=== PATIENT | female | born 1990 | race Caucasian/White ===

== ENCOUNTER 2023-04-15 00:51 | Emergency (ER) | payer OTHER, SELFPAY ==
[2023-04-15 00:54] VITALS: BP 110/51; PULSE 69; RESP 16; TEMP 36.6; O2SAT 99; BMI 21.3
--- NOTE | 2023-04-15 01:41 | ED_ITS ---
HPI - General Adult General Chief complaint: Dental/Oral Stated complaint: DENTAL PAIN, UTI, HEADACHE Time Seen by Provider: 04/15/23 00:59 Source: patient Mode of arrival: walk-in Limitations: no limitations History of Present Illness HPI narrative: This 32-year-old female presents for evaluation of multiple complaints. She states that she is having right-sided ear pain and has right-sided dental pain. She was seen at urgent care in [place] last week and given a prescription for Augmentin 875 mg. She has almost completed this prescription but is still having dental pain. She is supposed to see a dentist next week. She states the pain in her mouth is going into her right ear and causing her to have a headache. She has not had a fever. She is also nauseated and having lower abdominal/suprapubic area discomfort. The patient has not had a menstrual period in many months but doubts the possibility of . She did have some blood in her urine today and thinks she may have a urinary tract infection. She also has vaginal itching and white discharge consistent with a yeast infection. She denies any fever. She denies any chest pain or shortness of breath. She was not prescribed any pain medication with her antibiotics as she was told that the antibiotics would take care of pain. Related Data Home Medications Medication Instructions Recorded Confirmed buspirone 10 mg tablet 10 mg PO TID 04/15/23 04/15/23 hydroxyzine HCl 25 mg tablet 25 mg PO PRN anxiety 04/15/23 trazodone 100 mg tablet 100 mg PO BEDTIME 04/15/23 04/15/23 Allergies Allergy/AdvReac Type Severity Reaction Status Date / Time No Known Drug Allergies Allergy Verified 04/15/23 01:01 Review of Systems ROS Status of ROS 10 or more systems reviewed and unremarkable except as noted in history and below [facility] Social History Smoking status: Current every day smoker Exam Narrative Exam Narrative: Nurses note and vital signs reviewed and patient is not hypoxic. General: Thin, nontoxic but uncomfortable appearing female, no respiratory distress Skin: Warm, dry, no pallor noted. There is no rash noted. Head: Normocephalic, atraumatic Eye: Normal conjunctiva, no drainage, EOMI. PERRL Ears, Nose, Mouth, and Throat: oral mucosa is moist. There is moderate generalized dental decay. The teeth in the right upper posterior maxilla are tender to percussion. There is not one specific tooth that is more tender than the other or that appears more infected than the other, there is no gingival erythema or notable abscess. There is no swelling of the tongue, uvula or fragile soft tissues, there is no pooling of secretions. There is no notable abnormality of either external ear canal or tympanic membrane. Cardiovascular: Regular Rate and Rhythm Respiratory: Patient is in no distress, no accessory muscle use, lungs are clear to auscultation, no wheezing, rales or rhonchi Back: non-tender, no CVA tenderness bilaterally to percussion. GI: Normal bowel sounds, Soft, nondistended, mild tenderness over the urinary bladder with no rebound guarding or rigidity Musculoskeletal: The patient has no evidence of calf tenderness, no pitting edema, symmetrical pulses noted bilaterally Neurological: A&O x4, normal speech Psychiatric: Cooperative, Tearful Constitutional Vital Signs, click to edit/add: Last Vital Signs Temp 97.9 F 04/15/23 00:54 Pulse 69 04/15/23 00:54 Resp 16 04/15/23 00:54 BP 110/51 L 04/15/23 00:54 Pulse Ox 99 04/15/23 00:54 O2 Del Method Room Air 04/15/23 00:54 Course Vital Signs Vital signs: Vital Signs Temperature 97.9 F 04/15/23 00:54 Pulse Rate 69 04/15/23 00:54 Respiratory Rate 16 04/15/23 00:54 Blood Pressure 110/51 L 04/15/23 00:54 Pulse Oximetry 99 04/15/23 00:54 Oxygen Delivery Method Room Air 04/15/23 00:54 Temperature 97.9 F 04/15/23 00:54 Pulse Rate 69 04/15/23 00:54 Respiratory Rate 16 04/15/23 00:54 Blood Pressure 110/51 L 04/15/23 00:54 Pulse Oximetry 99 04/15/23 00:54 Oxygen Delivery Method Room Air 04/15/23 00:54 Medical Decision Making MDM Narrative Medical decision making narrative: This 32-year-old female presents for evaluation of right-sided dental pain with radiation into her right ear as well as nausea and lower abdominal discomfort with urinary discomfort and burning and itching in her vagina with a white discharge. The patient has been on Augmentin 875 mg for approximately one week after being seen at urgent care for dental pain. She does have generally poor dentition. I was unable to appreciate any periapical abscess. There is no swelling of her jaw or face. Her tympanic membranes are normal. Her lungs are clear, abdomen is soft with some tenderness over her urinary bladder. The patient has not been menstruating since having a miscarriage last fall. She did have some blood in her urine today. I offered her a pelvic exam evaluate the vaginal itching and white discharge that she is having that sounds like a yeast infection but she declined. She was empirically treated with Diflucan. She was t reated with Zofran for her nausea, Toradol and one [place] for her pain. She has an appointment with her dentist next week. I encouraged her to follow closely with her dentist. I gave her a prescription for clindamycin to take instead of the Augmentin although I did explain to her that not all dental pain is related to an infection. There is no visible sign of infection, no fever, no facial swelling and besides the generally poor dentition her oropharynx is benign. Her urine was positive for blood and multiple squamous epithelial cells. Culture is pending at this time. I do not think she has urinary tract infection as it would be unlikely that she would develop a urinary tract infection while on Augmentin but she does likely have a vaginal yeast infection. She will be discharged home with a prescription for Zofran, [place], clindamycin and an additional Diflucan to use in 3-4 days. She is otherwise hemodynamically stable for discharge and feeling better after her treatment in emergency department. I did review her [facility] report and there was no recent activity. Lab Data Labs: Lab Results 04/15/23 Range/Units 01:05 Urine Color Yellow (YELLOW) Urine Clarity Clear (CLEAR) Urine pH 5.0 (5.0-9.0) Ur Specific [place] >=1.030 A (1.005-1.025) Urine Protein Negative (NEG/TRACE) mg/dL Urine Glucose (UA) Negative (NEGATIVE) mg/dL Urine Ketones Trace A (NEGATIVE) mg/dL Urine Occult Blood Large A (NEGATIVE) Urine Nitrite Negative (NEGATIVE) Urine Bilirubin Negative (NEGATIVE) Urine Urobilinogen 0.2 (0.2-1.0) EU/dL Ur Leukocyte Esterase Trace A (NEGATIVE) Urine RBC 10-20 A (0-2) #/HPF Urine WBC 2-5 A (NONE SEEN) #/HPF Ur Squamous Epith Cells Many A (NONE/RARE) #/LPF Urine Crystals None seen (None Seen) #/HPF Urine Bacteria None seen (NONE SEEN) #/HPF Urine Casts None seen (NONE SEEN) #/LPF Urine Mucus None seen (NONE SEEN) Discharge Plan Discharge Chief Complaint: Dental/Oral Clinical Impression: Candidiasis, vagina, Dental caries, Toothache Patient Disposition: Home, Self-Care Time of Disposition Decision: 02:10 Condition: Good Prescriptions / Home Meds: No Action trazodone 100 mg tablet 100 mg PO BEDTIME buspirone 10 mg tablet 10 mg PO TID Rx Instructions: 2 tabs hydroxyzine HCl 25 mg tablet 25 mg PO PRN (Reason: anxiety) Instructions: Yeast Infection (ED), Toothache (ED) Stand Alone Forms: Portal Instructions Referrals: Physician,Non-Staff, MD [Primary Care Provider] - 1 week
[2023-04-15 01:44] LABS: Bilirubin Urine NEGATIVE (NEGATIVE); Blood Urine LARGE (NEGATIVE); Clarity Urine CLEAR (CLEAR); Color Urine YELLOW (YELLOW); Glucose Urine UA NEGATIVE (NEGATIVE); Ketones Urine TRACE mg/dL (NEGATIVE); Leukocyte Esterase Urine TRACE (NEGATIVE); Nitrite Urine NEGATIVE (NEGATIVE); Protein Urine NEGATIVE (NEG/TRACE); Specific Gravity Urine >=1.030 (1.005-1.025); Urobilinogen Urine 0.2 EU/dL (0.2-1.0)
[2023-04-15 01:45] LABS: HCG Qualitative Urine* NEGATIVE (NEGATIVE)
[2023-04-15] MEDS: KETOROLAC TROMETHAMINE 30 MG/ML VIAL IM (01:55)
[2023-04-15] MEDS: HYDROCODONE/ACETAMINOPHEN 5-325 MG TABLET 1 TAB PO (01:55)
[2023-04-15] MEDS: ONDANSETRON 4 MG RAPDIS TABLET SL (01:55)
[2023-04-15 01:57] LABS: Bacteria Urine NONE SEEN #/HPF (NONE SEEN); Cast Seen? NONE SEEN #/LPF (NONE SEEN); Crystals Seen? None Seen #/HPF (None Seen); Mucus Urine NONE SEEN (NONE SEEN); Squamous Epithelial Cell Urine MANY #/LPF (NONE/RARE)
[2023-04-15] MEDS: FLUCONAZOLE 150 MG TABLET PO (02:31)
== END 2023-04-15 02:35 | disposition home or self-care (01) ==
PROVIDERS: Emergency Provider Emergency Medicine
DX: K02.9 Dental caries, unspecified (principal); K08.89 Other specified disorders of teeth and supporting structures; B37.31 Acute candidiasis of vulva and vagina; F17.210 Nicotine dependence, cigarettes, uncomplicated; Z79.899 Other long term (current) drug therapy
CPT/HCPCS: 81001; 84703; 96372; 99284

== ENCOUNTER 2023-05-14 19:33 | Outpatient (REF) | payer OTHER, SELFPAY ==
[2023-05-20 11:09] LABS: Age Gdln ACOG Testing Note (.); HPV Aptima Negative (Negative); IGP, Aptima HPV, rfx 16/18,45 Note (.)
== END 2023-05-14 19:34 | disposition home or self-care (01) ==
LOC: LAB 19:33
PROVIDERS: Visit Provider Physician Assistant
DX: Z01.419 Encounter for gynecological examination (general) (routine) without abnormal findings (principal)
CPT/HCPCS: 87624; G0145

== ENCOUNTER 2024-02-20 12:33 | Outpatient (OUT) | payer OTHER, SELFPAY ==
--- NOTE | 2024-02-20 12:57 | XR_ITS ---
The [address] [address] Patient Name: BREANA CASAS MRN: [id number] date: 1990 Sex: F Assigned Patient Location: SURGOUT Current Patient Location: [facility] Accession/Order Number: [id number] Exam Date: 02/20/2024 13:05 Report Date: 02/20/2024 16:06 At the request of: ADONIS HANSEN Procedure: XR chest 2V EXAM: XR chest 2V HISTORY: Preop exam COMPARISON: None. TECHNIQUE: Upright PA and lateral chest x-ray FINDINGS: The heart is not enlarged and the vasculature is not distended. No acute infiltrate, effusion or pneumothorax is identified. The osseous structures are grossly intact. XR/XR chest 2V IMPRESSION: No acute infiltrate or evidence of cardiac decompensation. Electronically authenticated by: NAHID CROCKER Date: 02/20/2024 16:06
== END 2024-02-20 12:34 | disposition home or self-care (01) ==
PROVIDERS: Visit Provider Obstetrics & Gynecology
DX: Z01.812 Encounter for preprocedural laboratory examination (principal); Z01.810 Encounter for preprocedural cardiovascular examination; R10.2 Pelvic and perineal pain; F17.290 Nicotine dependence, other tobacco product, uncomplicated
CPT/HCPCS: 71046

== ENCOUNTER 2024-02-20 12:39 | Outpatient (OUT) | payer OTHER, SELFPAY ==
[2024-02-20 13:25] LABS: Eosinophils Absolute Auto 0.3 10^3/uL (0.0-0.7); Eosinophils Percent Auto 7.9 % (0.9-7.0); Hematocrit 37.8 % (36.0-48.0); Hemoglobin 12.5 g/dL (12.0-16.0); Immature Granulocytes Abs Auto 0.01 10^3/uL (0.00-0.03); Immature Granulocytes Pct Auto 0.2 % (0.0-0.5); Lymphocytes Absolute Auto 1.1 10^3/uL (1.2-3.8); Lymphocytes Percent Auto 26.1 % (20.5-60.0); Mean Corpuscular HGB Conc 33.1 g/dL (29.9-35.2); Mean Corpuscular Volume 93.8 fL (81.0-99.0); Mean Platelet Volume 9.7 fL (9.5-13.5); Monocytes Absolute Auto 0.3 10^3/uL (0.3-0.8); Monocytes Percent Auto 6.7 % (1.7-12.0); Neutrophils Absolute Auto 2.4 10^3/uL (1.4-6.5); Neutrophils Percent Auto 58.1 % (43.0-75.0); Platelet Count 189 10^3/uL (150-450); Red Blood Count 4.03 10^6/uL (4.20-5.40); White Blood Count 4.2 10^3/uL (4.0-11.0)
[2024-02-20 13:31] LABS: Thyroid Stimulating Hormone 1.752 uIU/mL (0.358-3.740)
[2024-02-20 13:32] LABS: Estimated Average Glucose 105 mg/dL; Glycohemoglobin A1C 5.3 % (4.5-6.2)
== END 2024-02-20 12:40 | disposition home or self-care (01) ==
LOC: LAB 12:39
PROVIDERS: Visit Provider Obstetrics & Gynecology
DX: Z01.812 Encounter for preprocedural laboratory examination (principal); Z01.810 Encounter for preprocedural cardiovascular examination; R10.2 Pelvic and perineal pain; F17.290 Nicotine dependence, other tobacco product, uncomplicated
CPT/HCPCS: 71046; 83036; 84443; 85025

== ENCOUNTER 2024-03-05 08:58 | Day surgery (SDC) | payer OTHER, SELFPAY ==
[2024-02-20 13:00] VITALS: BP 98/62; PULSE 48; TEMP 36.3; O2SAT 100; BMI 21.4
[2024-03-05] VITALS (8 sets, daily range): BP systolic 88–101; BP diastolic 36–64; PULSE 45–71; TEMP 36.2–36.6; O2SAT 97–100; BMI 21.4
[2024-03-05 09:16] LABS: Basophils Absolute Auto 0.1 10^3/uL (0.0-0.1); Basophils Percent Auto 1.7 % (0.2-2.0); Eosinophils Absolute Auto 0.4 10^3/uL (0.0-0.7); Eosinophils Percent Auto 12.2 % (0.9-7.0); Lymphocytes Percent Auto 29.3 % (20.5-60.0); Mean Corpuscular HGB Conc 32.6 g/dL (29.9-35.2); Mean Corpuscular Hemoglobin 30.6 pg (26.7-34.0); Mean Corpuscular Volume 94.1 fL (81.0-99.0); Mean Platelet Volume 9.5 fL (9.5-13.5); Monocytes Absolute Auto 0.3 10^3/uL (0.3-0.8); Monocytes Percent Auto 7.7 % (1.7-12.0); Neutrophils Absolute Auto 1.7 10^3/uL (1.4-6.5); Neutrophils Percent Auto 49.1 % (43.0-75.0); Platelet Count 234 10^3/uL (150-450); Red Blood Count 4.57 10^6/uL (4.20-5.40); White Blood Count 3.5 10^3/uL (4.0-11.0)
--- OUTSIDE RECORDS SUMMARY | 2024-03-05 09:21 | XMS_ITS ---
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 above: Result Comment: Incr eased risk for diabetes: 5.7 - 6.4 diabetes: >6.4 glycemic control for adults with diabetes: <7.0 Performed By: #### T SH3, PRL, A1C WTH eA, CBC, HCGQNT #### [facility] [address] [place] [address] [place] Basophils Auto (Bld) [#/Vol] Ordered By: Sylvia Romero on 03-28-2023 Basophils (Bld) [#/Vol] 0.0 10*3/uL 0.0-0.2 [facility] Basophils/100 WBC Auto (Bld) Ordered By: Sylvia Romero on 03-28-2023 Basophils/100 WBC (Bld) 0.8 % . [facility] Choriogonadotropin.beta subu nit [Units/volume] in Serum or PlasmaOrdered By: Sylvia Romero on 03-28-2023 HCG.beta subunit Qn m[IU]/mL [facility] Comment on above: Approximate Approxim ate hCG Gestational Age Range (mIU/ml) (weeks)0.2-1 5-50 1-2 50-500 2-3 100-5,000 3-4 500-10,000 4-5 1,000-50,000 5-6 10,000-100,000 6-8 15,000-200,000 8-12 10,000-100,000 Complete Blood Count Auto Di ffon 03-28-2023 Basophils (Bld) [#/Vol] 0.0 10*3/uL Normal 0.0-0.2 The Count Includes [facility] Comment on above: Result Comment: PERF ORMED BY: [place] [address] PATHOLOGIST DONOR CENTER TECHNICIAN KHANG WEEKS M.D. Performed By: #### T SH3, PRL, A1C WTH eA, CBC, HCGQNT #### [facility] [address] Basophils/100 WBC (Bld) 0.8 % Normal . T abby Count Includes [facility] Comment on above: Performed By: #### T SH3, PRL, A1C WTH eA, CBC, HCGQNT #### [address] Eosinophils (Bld) [#/Vol] 0.2 10*3/uL Normal 0.0-0.45 The Count Includes [facility] Comment on above: Performed By: #### T SH3, PRL, A1C WTH eA, CBC, HCGQNT #### [address] Eosinophils/100 WBC (Bld) 4.7 % Normal . The Count Includes [facility] Comment on above: Performed By: #### T SH3, PRL, A1C WTH eA, CBC, HCGQNT #### [address] Erythrocyte distribution width (RBC) [Ratio] 13.0 % Normal 11.9-15.3 The Count Includes [facility] Comment on above: Performed By: #### T SH3, PRL, A1C WTH eA, CBC, HCGQNT #### [address] Hematocrit (Bld) [Volume fraction] 38.0 % Normal 34.0-46.4 The Count Includes [facility] Comment on above: Performed By: #### T SH3, PRL, A1C WTH eA, CBC, HCGQNT #### [address] Hemoglobin (Bld) [Mass/Vol] 12.9 g/dL Normal 11.8-15.4 The Count Includes [facility] Comment on above: Performed By: #### T SH3, PRL, A1C WTH eA, CBC, HCGQNT #### [address] Lymphocytes (Bld) [#/Vol] 1.0 10*3/uL Normal 1.00-4.8 The Count Includes [facility] Comment on above: Performed By: #### T SH3, PRL, A1C WTH eA, CBC, HCGQNT #### [address] Lymphocytes/100 WBC (Bld) 23.9 % Normal . The Count Includes [facility] Comment on above: Performed By: #### T SH3, PRL, A1C WTH eA, CBC, HCGQNT #### [address] MCH (RBC) [Entitic mass] 31.3 pg Normal 24.7-34.3 The Count Includes [facility] Comment on above: Performed By: #### T SH3, PRL, A1C WTH eA, CBC, HCGQNT #### [address] MCV (RBC) [Entitic vol] 92.3 fL Normal 80-100 [facility] Comment on above: Performed By: #### T SH3, PRL, A1C WTH eA, CBC, HCGQNT #### [address] Mean Corpuscular HGB Conc 33.9 g/dL Normal 32.0-35.0 The Count Includes [facility] Comment on above: Performed By: #### T SH3, PRL, A1C WTH eA, CBC, HCGQNT #### [address] Monocytes (Bld) [#/Vol] 0.3 10*3/uL Normal 0.0-0.8 The Count Includes [facility] Comment on above: Performed By: #### T SH3, PRL, A1C WTH eA, CBC, HCGQNT #### [address] Monocytes/100 WBC (Bld) 7.5 % Normal . [facility] Comment on above: Performed By: #### T SH3, PRL, A1C WTH eA, CBC, HCGQNT #### [address] Neutrophils (Bld) [#/Vol] 2.6 10*3/uL Normal 1.8-7.7 The Count Includes [facility] Comment on above: Performed By: #### T SH3, PRL, A1C WTH eA, CBC, HCGQNT #### [address] Neutrophils/100 WBC (Bld) 63.1 % Normal . The Count Includes [facility] Comment on above: Performed By: #### T SH3, PRL, A1C WTH eA, CBC, HCGQNT #### [address] NRBC% 0.1 /100{WBC} Normal 0-0.5 The Count Includes [facility] Comment on above: Performed By: #### T SH3, PRL, A1C WTH eA, CBC, HCGQNT #### [address] Platelet mean volume (Bld) [Entitic vol] 8.8 fL Normal 6.3-10.7 The Count Includes [facility] Comment on above: Performed By: #### T SH3, PRL, A1C WTH eA, CBC, HCGQNT #### [address] Platelets (Bld) [#/Vol] 196 10*3/uL Normal 150-450 The Count Includes [facility] Comment on above: Performed By: #### T SH3, PRL, A1C WTH eA, CBC, HCGQNT #### [address] RBC (Bld) [#/Vol] 4.12 10*6/uL Normal 3.60-5.00 The Count Includes [facility] Comment on above: Performed By: #### T SH3, PRL, A1C WTH eA, CBC, HCGQNT #### [address] WBC (Bld) [#/Vol] 4.1 10*3/uL Normal 3.8-11.6 The Count Includes [facility] Comment on above: Performed By: #### T SH3, PRL, A1C WTH eA, CBC, HCGQNT #### [place] [address] [place] Eosinophils Auto (Bld) [#/Vo l]Ordered By: Sylvia Romero on 03-28-2023 Eosinophils (Bld) [#/Vol] 0.2 10*3/uL 0.0-0.45 [facility] Eosinophils/100 WBC Auto (Bl d)Ordered By: Sylvia Romero on 03-28-2023 Eosinophils/100 WBC (Bld) 4.7 % . [facility] Erythrocyte distribution wid th Auto (RBC) [Ratio]Ordered By: Sylvia Romero on 03-28-2023 Erythrocyte distribution width (RBC) [Ratio] 13.0 % 11.9-15.3 [facility] HCG,Quantitativeon HCG,Quantitative < 0.60 Normal The Count Includes [facility] Comment on above: Result Comment: Appr oximate Approximate hCG Gestational Age Range (mIU/ml) (weeks) 0.2-1 5-50 1-2 50-500 2-3 100-5,000 3-4 500-10,000 4-5 1,000-50,000 5-6 10,000-100,000 6-8 15,000-200,000 8-12 10,000-100,000 PERFORMED BY: [place] [address] PATHOLOGIST DONOR CENTER TECHNICIAN KHANG WEEKS M.D. Performed By: #### T SH3, PRL, A1C WTH eA, CBC, HCGQNT #### [facility] [address] Hematocrit Auto (Bld) [Volum e fraction]Ordered By: Sylvia Romero on 03-28-2023 Hematocrit (Bld) [Volume fraction] 38.0 % 34.0-46.4 [facility] Hemoglobin [Mass/volume] in BloodOrdered By: Sylvia Romero on 03-28-2023 Hemoglobin (Bld) [Mass/Vol] 12.9 g/dL 11.8-15.4 [facility] Leukocytes [#/volume] correc ira for nucleated erythrocytes in Blood by Automated counOrdered By: Sylvia Romero on 03-28-2023 WBC corrected for nucl RBC Auto (Bld) [#/Vol] 4.1 10*3/uL 3.8-11.6 [facility] Lymphocytes Auto (Bld) [#/Vo l]Ordered By: Sylvia Romero on 03-28-2023 Lymphocytes (Bld) [#/Vol] 1.0 10*3/uL 1.00-4.8 [facility] Lymphocytes/100 WBC Auto (Bl d)Ordered By: Sylvia Romero on 03-28-2023 Lymphocytes/100 WBC (Bld) 23.9 % . [facility] MCH Auto (RBC) [Entitic mass ]Ordered By: Sylvia Romero on 03-28-2023 MCH (RBC) [Entitic mass] 31.3 pg 24.7-34.3 [facility] MCHC Auto (RBC) [Mass/Vol]Or dered By: Sylvia Romero on 03-28-2023 MCHC (RBC) [Mass/Vol] 33.9 g/dL 32.0-35.[address] [facility] MCV Auto (RBC) [Entitic vol] Ordered By: Sylvia Romero on 03-28-2023 MCV (RBC) [Entitic vol] 92.3 fL 80-100 [facility] Monocytes Auto (Bld) [#/Vol] Ordered By: Sylvia Romero on 03-28-2023 Monocytes (Bld) [#/Vol] 0.3 10*3/uL 0.0-0.8 [facility] Monocytes/100 WBC Auto (Bld) Ordered By: Sylvia Romero on 03-28-2023 Monocytes/100 WBC (Bld) 7.5 % . [facility] Neutrophils Auto (Bld) [#/Vo l]Ordered By: Sylvia Romero on 03-28-2023 Neutrophils (Bld) [#/Vol] 2.6 10*3/uL 1.8-7.7 [facility] Neutrophils/100 WBC Auto (Bl d)Ordered By: Sylvia Romero on 03-28-2023 Neutrophils/100 WBC (Bld) 63.1 % . [facility] Nucleated erythrocytes [Pres ence] in Blood by Automated countOrdered By: Sylvia Romero on 03-28-2023 Nucleated RBC Auto Ql (Bld) 0.1 /100{WBC} 0-0.5 [facility] Platelet mean volume Auto (B ld) [Entitic vol]Ordered By: Sylvia Romero on 03-28-2023 Platelet mean volume (Bld) [Entitic vol] 8.8 fL 6.3-10.7 [facility] Platelets Auto (Bld) [#/Vol] Ordered By: Sylvia Romero on 03-28-2023 Platelets (Bld) [#/Vol] 196 10*3/uL 150-450 [facility] Prolactinon 03-28-2023 Prolactin 3.20 ng/mL Low 3.34-26.72 The Count Includes [facility] Comment on above: Performed By: #### T SH3, PRL, A1C WTH eA, CBC, HCGQNT #### [facility] [address] [place] [id number] [facility] Prolactin [Mass/volume] in S mehdi or PlasmaOrdered By: Sylvia Romero on 03-28-2023 Prolactin [Mass/Vol] 3.20 ng/mL 3.34-26.72 [facility] RBC Auto (Bld) [#/Vol]Ordere d By: Sylvia Romero on 03-28-2023 RBC (Bld) [#/Vol] 4.12 10*6/uL 3.60-5.[address] [facility] Thyroid Stimulating Hormoneo n 03-28-2023 TSH Qn 1.31 m[IU]/L Normal 0.45-5.33 The Count Includes [facility] Comment on above: Performed By: #### T SH3, PRL, A1C WTH eA, CBC, HCGQNT #### [facility] [address] [place] [id number] [facility] Thyrotropin [Units/volume] i n Serum or PlasmaOrdered By: Sylvia Romero on 03-28-2023 TSH Qn 1.31 m[IU]/L 0.45-5.33 [facility] WBC Auto (Bld) [#/Vol]Ordere d By: Sylvia Romero on 03-28-2023 WBC (Bld) [#/Vol] 4.1 10*3/uL 3.8-11.6 [facility] US PREG TVon 01-20-2023 US PREG TV EXAMINATION: US PREG TV HISTORY: Threatened COMPARISON: Ultrasound transvaginal 01/03/2023 FINDINGS: GESTATIONAL SAC: Present. YOLK SAC: Absent. POLE: Present. CARDIAC: Absent. UTERUS: Normal size and appearance. OVARIES: Right: Not seen. Left: Corpus lutein cyst. CERVIX: 4.5 cm in length and closed. CUL-DE-SAC: Normal. OTHER: None. AGE BY LMP: 9 weeks 6 days JONN BY LMP: 08/16/2023 AGE BY US CRL: 7 weeks 3 days JONN BY US CRL: 09/02/2023 IMPRESSION: 1. Intrauterine with no appreciable change in gestational age by pole measurement. 2. No detectable heart beat. Findings consistent with demise. Electronically authenticated by: KENNEDY LEHMAN Date: 2023-01-19 23:22 Normal [facility] CBC AUTO DIFFon 01-17-2023 BASO # 0.0 103/ul Normal 0.0-0.1 [facility] Comment on above: Performed By: #### C MP, LIPA, SYLVIA #### [facility] [address] [place] [address] Dr. Lester Yen Basophils/100 WBC (Bld) 1.1 % Normal 0.2-2.0 [facility] Comment on above: Performed By: #### C MP, LIPA, SYLVIA #### [facility] [address] [place] [address] Dr. Lester Yen EO # 0.2 103/ul Normal 0.0-0.7 [facility] Comment on above: Performed By: #### C MP, LIPA, SYLVIA #### [facility] [address] [place] [address] Dr. Lester Yen Eosinophils/100 WBC (Bld) 5.4 % Normal 0.9-7.0 [facility] Comment on above: Performed By: #### C MP, LIPA, SYLVIA #### [facility] [address] [place] [address] Dr. Lester Yen Erythrocyte distribution width (RBC) [Ratio] 12.4 % Normal 11.0-15.0 [facility] Comment on above: Performed By: #### C MP, LIPA, SYLVIA #### [facility] [address] [place] [address] Dr. Lester Yen Hematocrit (Bld) [Volume fraction] 37.7 % Normal 36.0-48.0 [facility] Comment on above: Performed By: #### C MP, LIPA, SYLVIA #### [facility] [address] [place] [address] Dr. Lester Yen Hemoglobin (Bld) [Mass/Vol] 13.2 g/dL Normal 12.0-16.0 [facility] Comment on above: Performed By: #### C ANJU PULIDO AMY #### [facility] [address] [place] [address] Dr. Lester Yen IG # 0.01 10e3/ul Normal 0.00-0.03 [facility] Comment on above: Performed By: #### C ANJU PULIDO, SYLVIA #### [facility] [address] [place] [address] Dr. Lester Yen IG % 0.3 % Normal 0.0-0.5 [facility] Comment on above: Performed By: #### C ANJU PULIDO, SYLVIA #### [facility] [address] [place] [address] Dr. Lester Yen LYMPH # 1.1 103/ul Critically low 1.2-3.8 [facility] Comment on above: Performed By: #### C ANJU PULIDO, SYLVIA #### [facility] [address] [place] [address] Dr. Lester Yen Lymphocytes/100 WBC (Bld) 28.3 % Normal 20.5-60.0 [facility] Comment on above: Performed By: #### C ANJU PULIDO, SYLVIA #### [facility] [address] [place] [address] Dr. Lester Yen MANUAL DIFF REQ NO Normal [facility] Comment on above: Performed By: #### C ANJU PULIDO, SYLVIA #### [facility] [address] [place] [address] Dr. Lester Yen MCH (RBC) [Entitic mass] 31.5 pg Normal 26.7-34.0 [facility] Comment on above: Performed By: #### C ANJU PULIDO, SYLVIA #### [facility] [address] [place] [address] Dr. Lester Yen MCHC (RBC) [Mass/Vol] 35.0 g/dL Normal 29.9-35.2 [facility] Comment on above: Performed By: #### C MP, LIPA, SYLVIA #### [facility] [address] [place] [address] Dr. Lester Yen MCV (RBC) [Entitic vol] 90.0 fL Normal 81.0-99.0 [facility] Comment on above: Performed By: #### C MP, LIPA, SYLVIA #### [facility] [address] [place] [address] Dr. Lester Yen MONO # 0.3 103/ul Normal 0.3-0.8 [facility] Comment on above: Performed By: #### C MP, LIPA, SYLVIA #### [facility] [address] [place] [address] Dr. Lester Yen Monocytes/100 WBC (Bld) 9.2 % Normal 1.7-12.0 [facility] Comment on above: Performed By: #### C MP, LIPA, SYLVIA #### [facility] [address] [place] [address] Dr. Lester Yen NEUT # 2.1 103/ul Normal 1.4-6.5 [facility] Comment on above: Performed By: #### C MP, LIPA, SYLVIA #### [facility] [address] [place] [address] Dr. Lester Yen Neutrophils/100 WBC (Bld) 55.7 % Normal 43.0-75.0 [facility] Comment on above: Performed By: #### C MP, LIPA, SYLVIA #### [facility] [address] [place] [address] Dr. Lester Yen Platelet mean volume (Bld) [Entitic vol] 9.2 fL Critically low 9.5-13.5 [facility] Comment on above: Performed By: #### C MP, LIPA, SYLVIA #### [facility] [address] [place] [address] Dr. Lester Yen PLT 209 103/ul Normal 150-450 [facility] Comment on above: Performed By: #### C MP, LIPA, SYLVIA #### [facility] [address] [place] [address] Dr. Lester Yen RBC 4.19 106/ul Critically low 4.20-5.40 [facility] Comment on above: Performed By: #### C ASHOK LIPA, SYLVIA #### [facility] [address] [place] [address] [address] Lester Yen WBC 3.7 103/ul Critically low 4.0-11.0 [facility] Comment on above: Performed By: #### C ASHOK LIPA, SYLVIA #### [facility] [address] [place] [address] [address] Lester Yen TYPE AND SCREENon 01-17-2023 TYPE AND SCREEN Negative Normal [facility] Comment on above: Performed By: #### C ASHOK LIPA, SYLVIA #### [facility] [address] [place] [address] [address] Lester Yen Alanine aminotransferase [En zymatic activity/volume] in Serum or PlasmaOrdered By: Monika Camarillo on 01-03-2023 ALT [Catalytic activity/Vol] 13 U/L 7-52 [facility] Albumin [Mass/volume] in Ser um or Plasma by Bromocresol green (BCG) dye binding methoOrdered By: Monika Camarillo on 01-03-2023 Albumin BCG dye [Mass/Vol] 4.7 g/dL 3.5-5.7 [facility] Alkaline phosphatase [Enzyma tic activity/volume] in Serum or PlasmaOrdered By: Monika Camarillo on 01-03-2023 ALP [Catalytic activity/Vol] 47 U/L 34-104 [facility] Aspartate aminotransferase [ Enzymatic activity/volume] in Serum or PlasmaOrdered By: Monika Camarillo on 01-03-2023 AST [Catalytic activity/Vol] 15 U/L 13-39 [facility] Basophils Auto (Bld) [#/Vol] Ordered By: Monika Camarillo on 01-03-2023 Basophils (Bld) [#/Vol] 0.0 10*3/uL 0.0-0.2 [facility] Basophils/100 WBC Auto (Bld) Ordered By: Monika Camarillo on 01-03-2023 Basophils/100 WBC (Bld) 0.3 % . [facility] Bilirubin Test strip Ql (U)O rdered By: Monika Camarillo on 01-03-2023 Bilirubin Ql (U) Negative Negative [facility] Bilirubin.total [Mass/volume ] in Serum or PlasmaOrdered By: Monika Camarillo on 01-03-2023 Bilirubin [Mass/Vol] 0.8 mg/dL 0.3-1.0 [facility] Calcium [Mass/volume] in Ser um or PlasmaOrdered By: Monika Camarillo on 01-03-2023 Calcium [Mass/Vol] 9.2 mg/dL 8.6-10.3 [facility] Carbon dioxide, total [Moles /volume] in Serum or PlasmaOrdered By: Monika Camarillo on 01-03-2023 CO2 [Moles/Vol] 23.8 mmol/L 21.0-31.0 [facility] Chloride [Moles/volume] in S mehdi or PlasmaOrdered By: Monika Camarillo on 01-03-2023 Chloride [Moles/Vol] 105 mmol/L 98-107 [facility] Choriogonadotropin.beta subu nit [Units/volume] in Serum or PlasmaOrdered By: Monika Camarillo on 01-03-2023 [place] [address].00 m[IU]/mL [facility] Comment on above: Approximate Approxim ate hCG Gestational Age Range (mIU/ml) (weeks)0.2-1 5-50 1-2 50-500 2-3 100-5,000 3-4 500-10,000 4-5 1,000-50,000 5-6 10,000-100,000 6-8 15,000-200,000 8-12 10,000-100,000 Color Auto (U)Ordered By: Co urtchun Camarillo on 01-03-2023 Color (U) Yellow Yellow [facility] Creatinine [Mass/volume] in Serum or PlasmaOrdered By: Monika Camarillo on 01-03-2023 Creatinine [Mass/Vol] 0.71 mg/dL 0.60-1.20 [facility] ER URINE PROFILEon Bilirubin Ql (U) Negative Normal NEGATIVE [facility] Comment on above: Performed By: #### E RUR #### [facility] [address] [place] [address] Dr. Lester Yen Clarity (U) CLEAR Normal CLEAR [facility] Comment on above: Performed By: #### E RUR #### [facility] [address] [place] [address] Dr. Lester Yen Color (U) LT. YELLOW Normal YELLOW [facility] Comment on above: Performed By: #### E RUR #### [facility] [address] [place] [address] Dr. Lester LEA A micrscopic examination will be performed if indicated. Normal [facility] Comment on above: Performed By: #### E RUR #### [facility] [address] [place] [address] Dr. Lester Yen Glucose Ql (U) Negative Normal NEGATIVE [facility] Comment on above: Performed By: #### E RUR #### [facility] [address] [place] [address] Dr. Lester Yen Hemoglobin Ql (U) Negative Normal NEGATIVE [facility] Comment on above: Performed By: #### E RUR #### [facility] [address] [place] [address] Dr. Lester Yen Ketones Ql (U) 15 mg/dl Abnormal NEGATIVE [facility] Comment on above: Performed By: #### E RUR #### [facility] [address] [place] [address] Dr. Lester eYn LEUKOCYTES Negative Normal NEGATIVE [facility] Comment on above: Performed By: #### E RUR #### [facility] [address] [place] [address] Dr. Lester Yen Nitrite Ql (U) Negative Normal NEGATIVE [facility] Comment on above: Performed By: #### E RUR #### [facility] [address] [place] [address] Dr. Lester Yen pH (U) 6.0 [pH] Normal 5-9 [facility] Comment on above: Performed By: #### E RUR #### [facility] [address] [place] [address] [address] Lester Yen SPEC GRAVITY <=1.005 Abnormal 1.005-<=1.02 5 [facility] Comment on above: Performed By: #### E RUR #### [facility] [address] [place] [address] Dr. Lester Yen UA PROTEIN Negative Normal NEGATIVE/ TRACE [facility] Comment on above: Performed By: #### E RUR #### [facility] [address] [place] [address] [address] Lester Yen UR MICRO IND NOT INDICATED Normal [facility] Comment on above: Performed By: #### E RUR #### [facility] [address] [place] [address] Dr. Lester Yen Urobilinogen Qn (U) 0.2 {Olivier'U}/dL Normal 0.2 - 1. 0 [facility] Comment on above: Performed By: #### E RUR #### [facility] [address] [place] [address] Dr. Lester Yen Eosinophils Auto (Bld) [#/Vo l]Ordered By: Monika Camarillo on 01-03-2023 Eosinophils (Bld) [#/Vol] 0.3 10*3/uL 0.0-0.45 [facility] Eosinophils/100 WBC Auto (Bl d)Ordered By: Monika Camarillo on 01-03-2023 Eosinophils/100 WBC (Bld) 5.4 % . [facility] Erythrocyte distribution wid th Auto (RBC) [Ratio]Ordered By: Monika Camarillo on 01-03-2023 Erythrocyte distribution width (RBC) [Ratio] 12.7 % 11.9-15.3 [facility] Globulin Calc (S) [Mass/Vol] Ordered By: Monika Camarillo on 01-03-2023 Globulin (S) [Mass/Vol] 2.1 g/dL [facility] Glucose [Mass/volume] in Ser um or PlasmaOrdered By: Monika [place] on 01-03-2023 Glucose [Mass/Vol] 85 mg/dL 70-100 [facility] Comment on above: ADA recommended refe rence rangeRandom Glucose Reference Range is dependent on time and content of last meal. Glucose of more than 200 mg/dL in a nonstressed, ambulatory subject supports the diagnosis of Diabetes Mellitus. Hematocrit Auto (Bld) [Volum e fraction]Ordered By: Monika Camarillo on 01-03-2023 Hematocrit (Bld) [Volume fraction] 39.8 % 34.0-46.4 [facility] Hemoglobin [Mass/volume] in BloodOrdered By: Monika Camarillo on 01-03-2023 Hemoglobin (Bld) [Mass/Vol] 13.4 g/dL 11.8-15.4 [facility] Ketones Auto test strip (U) [Mass/Vol]Ordered By: Monika Camarillo on 01-03-2023 Ketones (U) [Mass/Vol] Negative Negative [facility] Leukocytes [#/volume] correc ira for nucleated erythrocytes in Blood by Automated counOrdered By: Monika Camarillo on 01-03-2023 WBC corrected for nucl RBC Auto (Bld) [#/Vol] 5.7 10*3/uL 3.8-11.6 [facility] Lipase [Enzymatic activity/v olume] in Serum or PlasmaOrdered By: Monika Camarillo on 01-03-2023 Lipase [Catalytic activity/Vol] 17.0 U/L 11.0-82.0 [facility] Lymphocytes Auto (Bld) [#/Vo l]Ordered By: Monika Camarillo on 01-03-2023 Lymphocytes (Bld) [#/Vol] 0.9 10*3/uL 1.00-4.8 [facility] Lymphocytes/100 WBC Auto (Bl d)Ordered By: Monika Camarillo on 01-03-2023 Lymphocytes/100 WBC (Bld) 15.2 % . [facility] MCH Auto (RBC) [Entitic mass ]Ordered By: Monika [place]ar[place] on 01-03-2023 MCH (RBC) [Entitic mass] 31.0 pg 24.7-34.3 [facility] MCHC Auto (RBC) [Mass/Vol]Or dered By: Monika Camar[place] on 01-03-2023 MCHC (RBC) [Mass/Vol] 33.6 g/dL 32.0-35.[address] [facility] MCV Auto (RBC) [Entitic vol] Ordered By: Monika Camarillo on 01-03-2023 MCV (RBC) [Entitic vol] 92.2 fL 80-100 [facility] Monocyte distribution width [Entitic volume] in Blood by AutomatedOrdered By: Monika Camarillo on 01-03-2023 Monocyte distribution width Auto (Bld) [Entitic vol] 17.53 % 0.00-20.00 [facility] Monocytes Auto (Bld) [#/Vol] Ordered By: Monika [place]ar[place] on 01-03-2023 Monocytes (Bld) [#/Vol] 0.4 10*3/uL 0.0-0.8 [facility] Monocytes/100 WBC Auto (Bld) Ordered By: Monika [place]ar[place] on 01-03-2023 Monocytes/100 WBC (Bld) 6.5 % . [facility] Neutrophils Auto (Bld) [#/Vo l]Ordered By: Monika [place]ar[place] on 01-03-2023 Neutrophils (Bld) [#/Vol] 4.1 10*3/uL 1.8-7.7 [facility] Neutrophils/100 WBC Auto (Bl d)Ordered By: Monika [place]ar[place] on 01-03-2023 Neutrophils/100 WBC (Bld) 72.6 % . [facility] Nitrite Test strip Ql (U)Ord ered By: Monika [place]ar[place] on 01-03-2023 Nitrite Ql (U) Negative Negative [facility] No Panel InformationOrdered By: Monika Camarillo on 01-03-2023 Estimated GFR (CKD-EPI) > 60.0 mL/Min [facility] Creatinine Clearance (Chem 94.97 [facility] Nucleated erythrocytes [Pres ence] in Blood by Automated countOrdered By: Monika [place]ar[place] on 01-03-2023 Nucleated RBC Auto Ql (Bld) 0.1 /100{WBC} 0-0.5 [facility] Platelet mean volume Auto (B ld) [Entitic vol]Ordered By: Monika [place]ar[place] on 01-03-2023 Platelet mean volume (Bld) [Entitic vol] 7.5 fL 6.3-10.7 [facility] Platelets Auto (Bld) [#/Vol] Ordered By: Monika [place]ar[place] on 01-03-2023 Platelets (Bld) [#/Vol] 187 10*3/uL 150-450 [facility] Potassium [Moles/volume] in Serum or PlasmaOrdered By: Monika [place]ar[place] on 01-03-2023 Potassium [Moles/Vol] 3.7 mmol/L 3.5-5.1 [facility] Protein Auto test strip (U) [Mass/Vol]Ordered By: Monika [place]ar[place] on 01-03-2023 Protein (U) [Mass/Vol] Negative Negative [facility] Protein [Mass/volume] in Ser um or PlasmaOrdered By: Monika [place]ar[place] on 01-03-2023 Protein [Mass/Vol] 6.8 g/dL 6.4-8.9 [facility] RBC Auto (Bld) [#/Vol]Ordere d By: Monika [place]ar[place] on 01-03-2023 RBC (Bld) [#/Vol] 4.32 10*6/uL 3.60-5.[address] [facility] Serum or plasma albumin/glob ulin mass ratioOrdered By: Monika [place]ar[place] on 01-03-2023 Albumin/Globulin [Mass ratio] 2.2 {ratio} [facility] Serum or plasma anion gap de terminationOrdered By: Monika [place]ar[place] on 01-03-2023 Anion gap [Moles/Vol] 10.9 mmol/L 6.0-15.0 [facility] Sodium [Moles/volume] in Ser um or PlasmaOrdered By: Monika [place]ar[place] on 01-03-2023 Sodium [Moles/Vol] 136 mmol/L 136-145 [facility] Specific gravity Auto test s trip (U) [Rel density]Ordered By: Monika [place]ar[place] on 01-03-2023 Specific gravity (U) [Rel density] 1.005 1.001-1.030 [facility] US PREG TVon 01-03-2023 US PREG TV EXAM: US PREG TV REASON FOR EXAM: Female, 32 years, Disorder of . LMP: Unknown. TECHNIQUE: A transvaginal pelvic ultrasound was performed. COMPARISON: 12/26/2022. FINDINGS: There is a gestational sac seen within the uterus. Size of the gestational sac corresponds to a 7 week 0 day gestation. The pole is visualized, though size corresponding to a 7 week 1 day gestation. No cardiac activity is identified on the current examination. The right ovary is not visualized. The left ovary measures 3.5 x 3.1 x 3.2 cm. A corpus luteum cyst is noted. IMPRESSION: No cardiac activity is identified on today's examination. Electronically authenticated by: LOPEZ ZARAGOZA Date: 2023-01-03 21:49 Normal [facility] Urea nitrogen [Mass/volume] in Serum or PlasmaOrdered By: Monika [place]ar[place] on 01-03-2023 Urea nitrogen [Mass/Vol] 9 mg/dL 7-25 [facility] Urine clarity by refractomet ry automatedOrdered By: Monika [place]ar[place] on 01-03-2023 Clarity Refractometry automated (U) Clear Clear [facility] Urine glucose measurement by automated test strip (mass/volume)Ordered By: Monika [place]ar[place] on 01-03-2023 Glucose Auto test strip (U) [Mass/Vol] Normal mg/dL Normal [facility] Urine hemoglobin detection b y automated test stripOrdered By: Monika [place]ar[place] on 01-03-2023 Hemoglobin Auto test strip Ql (U) Negative Negative [facility] Urine leukocyte esterase det ection by automated test stripOrdered By: Monika [place]ar[place] on 01-03-2023 Leukocyte esterase Auto test strip Ql (U) Negative Negative [facility] Urobilinogen Auto test strip (U) [Mass/Vol]Ordered By: Monika [place]ar[place] on 01-03-2023 Urobilinogen (U) [Mass/Vol] Normal mg/dL Normal [facility] WBC Auto (Bld) [#/Vol]Ordere d By: Monika [place]ar[place] on 01-03-2023 WBC (Bld) [#/Vol] 5.7 10*3/uL 3.8-11.6 [facility] pH Auto test strip (U)Ordere d By: Monika [place]ar[place] on 01-03-2023 pH (U) 6.5 [pH] 5.0-9.0 [facility] US PREG TVon 12-26-2022 US PREG TV EXAMINATION: US PREG TV HISTORY: Missed period COMPARISON: No relevant comparison available. FINDINGS: GESTATIONAL SAC: Present and normal appearing. YOLK SAC: Present and normal appearing. POLE: Present and normal appearing. CARDIAC: Present. UTERUS: Normal size and appearance. OVARIES: Right: Normal. Left: Corpus lutein cyst. CERVIX: 4.9 cm in length and closed. CUL-DE-SAC: Normal. OTHER: None. AGE BY LMP: Unknown LMP JONN BY LMP: AGE BY US CRL: 6 weeks 5 days JONN BY US CRL: 08/16/2023 IMPRESSION: 1. Single live intrauterine , 6 weeks 5 days. Electronically authenticated by: KENNEDY LEHMAN Date: 2022-12-26 15:07 Normal [facility] PREG QUANT HCGon 12-25-2022 HCG QUANT 37302 mIU/mL Normal [facility] Comment on above: Performed By: #### P REGQNT #### [facility] [address] [address] [address] Lester Yen HCG RANGE SEE BELOW Normal [facility] Comment on above: Result Comment: 5-50 0.2-1 WEEK 50-500 1-2 WEEKS 100-5,000 2-3 WEEKS 500-10,000 3-4 WEEKS 1,000-50,000 4-5 WEEKS 10,000-100,000 5-6 WEEKS 15,000-200,000 6-8 WEEKS 10,000-100,000 2-3 MONTHS Performed By: #### P REGQNT #### [facility] [address] [address] [address] Lester Yen Albumin [Mass/volume] in Ser um or PlasmaOrdered By: Monika [place]ar[place] on 08-02-2022 Albumin [Mass/Vol] 3.7 g/dL 3.2-5.5 [facility] Basophils Auto (Bld) [#/Vol] Ordered By: Monika [place]ar[place] on 08-02-2022 Basophils (Bld) [#/Vol] 0.0 10*3/uL 0.0-0.2 [facility] Basophils/100 WBC Auto (Bld) Ordered By: Monika [place] on 08-02-2022 Basophils/100 WBC (Bld) 0.8 % . [facility] Bilirubin Test strip Ql (U)O rdered By: Monika [place]ar[place] on 08-02-2022 Bilirubin Ql (U) Negative Negative [facility] Color Auto (U)Ordered By: Po [place] on 08-02-2022 Color (U) Yellow Yellow [facility] Creatinine and Glomerular fi ltration rate.predicted panel (S/P/Bld)Ordered By: Monika [place]ar[place] on 08-02-2022 Creatinine [Mass/Vol] 0.86 mg/dL 0.44-1.03 [facility] Eosinophils Auto (Bld) [#/Vo l]Ordered By: Monika [place]ar[place] on 08-02-2022 Eosinophils (Bld) [#/Vol] 0.4 10*3/uL 0.0-0.45 [facility] Eosinophils/100 WBC Auto (Bl d)Ordered By: Monika [place] on 08-02-2022 Eosinophils/100 WBC (Bld) 12.8 % . [facility] Erythrocyte distribution wid th Auto (RBC) [Ratio]Ordered By: Monika [place]ar[place] on 08-02-2022 Erythrocyte distribution width (RBC) [Ratio] 12.7 % 11.9-15.3 [facility] Estimated glomerular filtrat ion rate (GFR) non- AmericanOrdered By: Monika [place]ar[place] on 08-02-2022 GFR/1.73 sq M.predicted among non-blacks MDRD (S/P/Bld) [Vol rate/Area] > 60 mL/Min [facility] Globulin Calc (S) [Mass/Vol] Ordered By: Monika [place]ar[place] on 08-02-2022 Globulin (S) [Mass/Vol] 2.4 g/dL [facility] HCG ( test) IA.rapi d Ql (U)Ordered By: Monika [place]ar[place] on 08-02-2022 HCG ( test) Ql (U) Negative [facility] Hematocrit Auto (Bld) [Volum e fraction]Ordered By: Monika [place]ar[place] on 08-02-2022 Hematocrit (Bld) [Volume fraction] 38.4 % 34.0-46.4 [facility] Hemoglobin [Mass/volume] in BloodOrdered By: Monika [place] on 08-02-2022 Hemoglobin (Bld) [Mass/Vol] 13.1 g/dL 11.8-15.4 [facility] Ketones Auto test strip (U) [Mass/Vol]Ordered By: Monika [place]ar[place] on 08-02-2022 Ketones (U) [Mass/Vol] Negative Negative [facility] - Hematology and Cell countsOrdered By: Monika [place]ar[place] on 08-02-2022 Nucleated RBC/100 WBC (Bld) [Ratio] 0.1 % 0-0.5 [facility] Leukocytes [#/volume] in Blo od by Automated countOrdered By: Monika [place]ar[place] on 08-02-2022 WBC (Bld) [#/Vol] 3.4 10*3/uL 4.5-11.0 [facility] Lymphocytes Auto (Bld) [#/Vo l]Ordered By: Monika [place] on 08-02-2022 Lymphocytes (Bld) [#/Vol] 1.0 10*3/uL 1.00-4.8 [facility] Lymphocytes/100 WBC Auto (Bl d)Ordered By: Monika [place]ar[place] on 08-02-2022 Lymphocytes/100 WBC (Bld) 28.2 % . [facility] MCH Auto (RBC) [Entitic mass ]Ordered By: Monika [place]ar[place] on 08-02-2022 MCH (RBC) [Entitic mass] 31.1 pg 24.7-34.3 [facility] MCHC Auto (RBC) [Mass/Vol]Or dered By: Monika [place] on 08-02-2022 MCHC (RBC) [Mass/Vol] 34.1 g/dL 32.0-35.0 [facility] MCV Auto (RBC) [Entitic vol] Ordered By: Monika [place]ar[place] on 08-02-2022 MCV (RBC) [Entitic vol] 91.4 fL 80-[address] [facility] Monocytes Auto (Bld) [#/Vol] Ordered By: Monika [place]ar[place] on 08-02-2022 Monocytes (Bld) [#/Vol] 0.3 10*3/uL 0.0-0.8 [facility] Monocytes/100 WBC Auto (Bld) Ordered By: Monika [place]ar[place] on 08-02-2022 Monocytes/100 WBC (Bld) 7.7 % . [facility] Neutrophils Auto (Bld) [#/Vo l]Ordered By: Monika [place]ar[place] on 08-02-2022 Neutrophils (Bld) [#/Vol] 1.7 10*3/uL 1.8-7.7 [facility] Neutrophils/100 WBC Auto (Bl d)Ordered By: Monika [place]ar[place] on 08-02-2022 Neutrophils/100 WBC (Bld) 50.5 % . [facility] Nitrite Test strip Ql (U)Ord ered By: Monika [place]ar[place] on 08-02-2022 Nitrite Ql (U) Negative Negative [facility] No Panel InformationOrdered By: Monika Camarillo on 08-02-2022 Estimated GFR () > 60 mL/Min [facility] Comment on above: GFR estimated refere nce range: According to KDOQI guidelines, <60 ml/min/1.73m2 is sufficient to diagnose a patient with chronic kidney disease. Pharmacy Creatinine Clearance (Chem 79.12 [facility] Platelet mean volume Auto (B ld) [Entitic vol]Ordered By: Monika Camar[place] on 08-02-2022 Platelet mean volume (Bld) [Entitic vol] 7.8 fL 6.3-10.7 [facility] Platelets Auto (Bld) [#/Vol] Ordered By: Monika Camar[place] on 08-02-2022 Platelets (Bld) [#/Vol] 203 10*3/uL 150-450 [facility] Protein Auto test strip (U) [Mass/Vol]Ordered By: Monika Camar[place] on 08-02-2022 Protein (U) [Mass/Vol] Negative Negative [facility] Protein [Mass/volume] in Ser um or PlasmaOrdered By: Monika Camarillo on 08-02-2022 Protein [Mass/Vol] 6.1 g/dL 6.1-7.9 [facility] RBC Auto (Bld) [#/Vol]Ordere d By: Monika Camar[place] on 08-02-2022 RBC (Bld) [#/Vol] 4.20 10*6/uL 3.60-5.[address] [facility] Serum or plasma alanine gaspar otransferase measurement without P-5'-P (enzymatic activiOrdered By: Monika Camarillo on 08-02-2022 ALT No additional P-5'-P [Catalytic activity/Vol] 13 U/L 10-60 [facility] Serum or plasma albumin/glob ulin mass ratioOrdered By: Monika aCmarillo on 08-02-2022 Albumin/Globulin [Mass ratio] 1.5 {ratio} [facility] Serum or plasma alkaline radames sphatase measurement (enzymatic activity/volume)Ordered By: Monika Camar[place] on 08-02-2022 ALP [Catalytic activity/Vol] 46 U/L 32-92 [facility] Serum or plasma anion gap de terminationOrdered By: Monika Camarillo on 08-02-2022 Anion gap [Moles/Vol] 11.0 mmol/L 6.0-15.0 [facility] Serum or plasma aspartate am inotransferase measurement (enzymatic activity/volume)Ordered By: Monika Camar[place] on 08-02-2022 AST [Catalytic activity/Vol] 16 U/L 10-42 [facility] Serum or plasma calcium unique urement (mass/volume)Ordered By: Monika Camarillo on 08-02-2022 Calcium [Mass/Vol] 9.2 mg/dL 8.2-10.2 [facility] Serum or plasma chloride debbie surement (moles/volume)Ordered By: Monika Camar[place] on 08-02-2022 Chloride [Moles/Vol] 104 mmol/L 95-114 [facility] Serum or plasma glucose unique urement (mass/volume)Ordered By: Monika Camar[place] on 08-02-2022 Glucose [Mass/Vol] 82 mg/dL 70-100 [facility] Comment on above: ADA recommended refe rence rangeRandom Glucose Reference Range is dependent on time and content of last meal. Glucose of more than 200 mg/dL in a nonstressed, ambulatory subject supports the diagnosis of Diabetes Mellitus. Serum or plasma potassium me asurement (moles/volume)Ordered By: Monika Camarillo on 08-02-2022 Potassium [Moles/Vol] 3.4 mmol/L 3.5-5.1 [facility] Serum or plasma sodium measu rement (moles/volume)Ordered By: Monika Camarillo on 08-02-2022 Sodium [Moles/Vol] 137 mmol/L 136-146 [facility] Serum or plasma total biliru bin measurement (mass/volume)Ordered By: Monika Camar[place] on 08-02-2022 Bilirubin [Mass/Vol] 0.6 mg/dL 0.3-1.2 [facility] Serum or plasma total carbon dioxide measurement (moles/volume)Ordered By: Monika Camar[place] on 08-02-2022 CO2 [Moles/Vol] 25.4 mmol/L 22.0-30.0 [facility] Serum or plasma urea nitroge n measurement (mass/volume)Ordered By: Monika Camarillo on 08-02-2022 Urea nitrogen [Mass/Vol] 8 mg/dL 9- [facility] Specific gravity Auto test s trip (U) [Rel density]Ordered By: Monika Camar[place] on 08-02-2022 Specific gravity (U) [Rel density] 1.009 1.001-1.030 [facility] Urine clarity by refractomet ry automatedOrdered By: Monika Camarillo on 08-02-2022 Clarity Refractometry automated (U) Clear Clear [facility] Urine glucose measurement by automated test strip (mass/volume)Ordered By: Monika Camarillo on 08-02-2022 Glucose Auto test strip (U) [Mass/Vol] Normal mg/dL Normal [facility] Urine hemoglobin detection b y automated test stripOrdered By: Monika Camarillo on 08-02-2022 Hemoglobin Auto test strip Ql (U) Negative Negative [facility] Urine lactic acid measuremen tOrdered By: Monika Camarillo on 10-28-2022 Lactate (U) [Moles/Vol] 1.4 mmol/L 0.5-2.2 [facility] Urine leukocyte esterase det ection by automated test stripOrdered By: Monika Camarillo on 08-02-2022 Leukocyte esterase Auto test strip Ql (U) Negative Negative [facility] Urobilinogen Auto test strip (U) [Mass/Vol]Ordered By: Monika Camar[place] on 08-02-2022 Urobilinogen (U) [Mass/Vol] Normal mg/dL Normal [facility] pH Auto test strip (U)Ordere d By: Monika Camar[place] on 08-02-2022 pH (U) 8.0 [pH] 5.0-9.0 [facility] CBC AUTO DIFFon 07-29-2022 BASO # 0.0 103/ul Normal 0.0-0.1 [facility] Comment on above: Performed By: #### C BC #### [facility] [address] [place] [address] Dr. Lester Yen Basophils/100 WBC (Bld) 1.1 % Normal 0.2-2.0 [facility] Comment on above: Performed By: #### C BC #### [facility] [address] [place] [address] Dr. Lester Yen EO # 0.4 103/ul Normal 0.0-0.7 [facility] Comment on above: Performed By: #### C BC #### [facility] [address] [address] [address] Lester Yen Eosinophils/100 WBC (Bld) 10.8 % Critically high 0.9-7.0 [facility] Comment on above: Performed By: #### C BC #### [facility] [address] [place] [address] Dr. Lester Yen Erythrocyte distribution width (RBC) [Ratio] 12.0 % Normal 11.0-15.0 [facility] Comment on above: Performed By: #### C BC #### [facility] [address] [place] [address] Dr. Lester Yen Hematocrit (Bld) [Volume fraction] 36.3 % Normal 36.0-48.0 [facility] Comment on above: Performed By: #### C BC #### [facility] [address] [place] [address] Dr. Lester Yen Hemoglobin (Bld) [Mass/Vol] 12.4 g/dL Normal 12.0-16.0 [facility] Comment on above: Performed By: #### C BC #### [facility] [address] [place] [address] Dr. Lester Yen IG # 0.00 10e3/ul Normal 0.00-0.03 [facility] Comment on above: Performed By: #### C BC #### [facility] [address] [place] [address] Dr. Lester Yen IG % 0.0 % Normal 0.0-0.5 [facility] Comment on above: Performed By: #### C BC #### [facility] [address] [place] [address] Dr. Lester Yen LYMPH # 1.6 103/ul Normal 1.2-3.8 [facility] Comment on above: Performed By: #### C BC #### [facility] [address] [place] [address] Dr. Lester Yen Lymphocytes/100 WBC (Bld) 41.6 % Normal 20.5-60.0 [facility] Comment on above: Performed By: #### C BC #### [facility] [address] [place] [address] Dr. Lester Yen MANUAL DIFF REQ NO Normal [facility] Comment on above: Performed By: #### C BC #### [facility] [address] [place] [address] Dr. Lester Yen MCH (RBC) [Entitic mass] 31.9 pg Normal 26.7-34.0 [facility] Comment on above: Performed By: #### C BC #### [facility] [address] [place] [address] Dr. Lester Yen MCHC (RBC) [Mass/Vol] 34.2 g/dL Normal 29.9-35.2 [facility] Comment on above: Performed By: #### C BC #### [facility] [address] [address] [address] Lester Yen MCV (RBC) [Entitic vol] 93.3 fL Normal 81.0-99.0 [facility] Comment on above: Performed By: #### C BC #### [facility] [address] [address] [address] Lester Yen MONO # 0.3 103/ul Normal 0.3-0.8 [facility] Comment on above: Performed By: #### C BC #### [facility] [address] [address] [address] Lester Yen Monocytes/100 WBC (Bld) 8.2 % Normal 1.7-12.0 [facility] Comment on above: Performed By: #### C BC #### [facility] [address] [address] [address] Lester Yen NEUT # 1.5 103/ul Normal 1.4-6.5 [facility] Comment on above: Performed By: #### C BC #### [facility] [address] [address] [address] Lester Yen Neutrophils/100 WBC (Bld) 38.3 % Critically low 43.0-75.0 [facility] Comment on above: Performed By: #### C BC #### [facility] [address] [address] [address] Lester Yen Platelet mean volume (Bld) [Entitic vol] 9.3 fL Critically low 9.5-13.5 [facility] Comment on above: Performed By: #### C BC #### [facility] [address] [address] [address] Lester Yen PLT 184 103/ul Normal 150-450 [facility] Comment on above: Performed By: #### C BC #### [facility] [address] [address] [address] Lester Yen RBC 3.89 106/ul Critically low 4.20-5.40 [facility] Comment on above: Performed By: #### C BC #### [facility] [address] [place] [address] Dr. Lester Yen WBC 3.8 103/ul Critically low 4.0-11.0 [facility] Comment on above: Performed By: #### C BC #### [facility] [address] [place] [address] Dr. Lester Yen [facility]on 07-07 SARS-CoV-2 (COVID-19) RNA JOSE+probe Ql (Unsp spec) Not detected Normal NOT DETECTED [facility] Comment on above: Result Comment: When diagnostic testing is negative, the possibility of a false negative should be considered in the context of a patient's recent exposures and the presence of clinical signs and symptoms consistent with SARS-CoV-2. This test is not yet approved or cleared by the [place] FDA. When there are no FDA-approved or cleared tests available, and other criteria are met, FDA can make tests available under an emergency access mechanism called an Emergency Use Authorization (EUA). The EUA for this test is supported by the Supervisor Sandblaster of Health and Human Service's declaration that circumstances exist to justify the emergency use of in vitro diagnostics for the detection and/or diagnosis of the virus that causes COVID-19. This EUA will remain in effect for the duration of the COVID-19 declaration justifying emergency of IVDs, unless it is terminated or revoked by the FDA (after which the test may no longer be used). Performed By: #### C ANJU PULIDO AMY #### [facility] [address] [place] [address] Dr. Lester Yen PREG QUANT HCGon 07-29-2022 HCG QUANT 1 mIU/mL Normal [facility] Comment on above: Performed By: #### C ANJU PULIDO AMY #### [facility] [address] [place] [address] Dr. Lester Yen HCG RANGE SEE BELOW Normal [facility] Comment on above: Result Comment: 5-50 0.2-1 WEEK 50-500 1-2 WEEKS 100-5,000 2-3 WEEKS 500-10,000 3-4 WEEKS 1,000-50,000 4-5 WEEKS 10,000-100,000 5-6 WEEKS 15,000-200,000 6-8 WEEKS 10,000-100,000 2-3 MONTHS Performed By: #### C ANJU PULIDO AMY #### [facility] [address] [address] [address] Lester Yen HIV 1 and HIV-2 antibody ass ay with HIV-1 p24 antigen detectionOrdered By: Dominic Hester on 06-18-2022 HIV 1+2 Ab+HIV1 p24 Ag IA Ql Non-Reactive Non Reactive [facility] Comment on above: HIV NegativeHIV-1/HI V-2 antibodies and HIV-1 p24 antigen were NOTdetected. There is no laboratory evidence of HIV infection.Performed at: [facility] [address] [id number] Director: Lebron Manzo PhD, Phone: [phone] Hepatitis B virus surface Ag [Presence] in Serum or Plasma by ImmunoassayOrdered By: Dominic Hester on 06-18-2022 HBV surface Ag IA Ql Negative Negative [facility] Hepatitis C virus RNA [Units /volume] (viral load) in Serum or Plasma by JOSE with probOrdered By: Dominic Hester on 06-18-2022 HCV RNA JOSE+probe Qn N/A [facility] Hepatitis C virus RNA [log u nits/volume] (viral load) in Serum or Plasma by JOSE withOrdered By: Dominic Hester on 06-18-2022 HCV RNA JOSE+probe [Log units/Vol] N/A [facility] No Panel InformationOrdered By: Dominic Hester on 06-18-2022 Hepatitis A IgM Antibody Negative Negative [facility] Hepatitis B Core IgM Antibody Negative Negative [facility] Hepatitis C Interpretation See comment . [facility] Comment on above: NegativeNot infected with HCV, unless recent infection issuspected or other evidence exists to indicate HCVinfection.Performed at: [id number] [place], [place] [id number] Director: Lebron Manzo PhD, Phone: [phone] Hepatitis C RNA Quantitative N/A [facility] Reagin Ab [Presence] in Seru m by RPROrdered By: Dominic Hester on 06-18-2022 Reagin Ab RPR Ql (S) Non-Reactive Non Reactive [facility] Comment on above: Performed at: [address] [id number] Director: Lebron Manzo PhD, Phone: [phone] Serum or plasma hepatitis C virus antibody signal/cutoff ratio by immunoassay (relatiOrdered By: Dominic Hester on 06-18-2022 HCV Ab Signal/Cutoff IA [Rel units/Vol] <0.1 s/co ratio 0.0-0.9 [facility] CHLAMYDIA/GONOCOCCUS JOSE (SW AB/URINE/PAPon 06-04-2022 Chlamydia trachomatis, JOSE Negative Normal Negative [facility] Comment on above: Performed By: #### C T/NGNA #### [facility] [address] [place] [address] Dr. Lester Yen Neisseria gonorrhoeae, JOSE Negative Normal Negative [facility] Comment on above: Performed By: #### C T/NGNA #### [facility] [address] [place] [address] Dr. Lester Yen VAGINITIS/VAGINOSIS DNA PROB Davide 06-02-2022 Tameka species Negative Normal Negative [facility] Comment on above: Performed By: #### C MP, LIPA, SYLVIA #### [facility] [address] [place] [address] Dr. Lester Yen Gardnerella vaginalis Negative Normal Negative [facility] Comment on above: Performed By: #### C MP, LIPA, SYLVIA #### [facility] [address] [place] [address] Dr. Lester Yen Trichomonas vaginalis Negative Normal Negative [facility] Comment on above: Performed By: #### C MP, LIPA, SYLVIA #### [facility] [address] [place] [address] Dr. Lester Yen AMYLASEon 05-28-2022 Amylase [Catalytic activity/Vol] 48 U/L Normal 25-115 [facility] Comment on above: Performed By: #### C MP, LIPA, SYLVIA #### [facility] [address] [place] [address] Dr. Lester Yen CBC AUTO DIFFon 05-28-2022 BASO # 0.0 103/ul Normal 0.0-0.1 [facility] Comment on above: Performed By: #### C BC #### [facility] [address] [place] [address] Dr. Lester Yen Basophils/100 WBC (Bld) 0.5 % Normal 0.2-2.0 [facility] Comment on above: Performed By: #### C BC #### [facility] [address] [place] [address] Dr. Lester Yen EO # 0.3 103/ul Normal 0.0-0.7 [facility] Comment on above: Performed By: #### C BC #### [facility] [address] [place] [address] Dr. Lester Yen Eosinophils/100 WBC (Bld) 5.7 % Normal 0.9-7.0 [facility] Comment on above: Performed By: #### C BC #### [facility] [address] [place] [address] Dr. Lester Yen Erythrocyte distribution width (RBC) [Ratio] 12.6 % Normal 11.0-15.0 [facility] Comment on above: Performed By: #### C BC #### [facility] [address] [place] [address] Dr. Lester Yen Hematocrit (Bld) [Volume fraction] 39.5 % Normal 36.0-48.0 [facility] Comment on above: Performed By: #### C BC #### [facility] [address] [place] [address] Dr. Lester Yen Hemoglobin (Bld) [Mass/Vol] 13.2 g/dL Normal 12.0-16.0 [facility] Comment on above: Performed By: #### C BC #### [facility] [address] [place] [address] Dr. Lester Yen IG # 0.01 10e3/ul Normal 0.00-0.03 [facility] Comment on above: Performed By: #### C BC #### [facility] [address] [place] [address] Dr. Lester Yen IG % 0.2 % Normal 0.0-0.5 [facility] Comment on above: Performed By: #### C BC #### [facility] [address] [place] [address] Dr. Lester Yen LYMPH # 1.1 103/ul Critically low 1.2-3.8 [facility] Comment on above: Performed By: #### C BC #### [facility] [address] [place] [address] Dr. Lester Yen Lymphocytes/100 WBC (Bld) 18.9 % Critically low 20.5-60.0 [facility] Comment on above: Performed By: #### C BC #### [facility] [address] [place] [address] Dr. Lester Yen MANUAL DIFF REQ NO Normal [facility] Comment on above: Performed By: #### C BC #### [facility] [address] [place] [address] Dr. Lester Yen MCH (RBC) [Entitic mass] 31.1 pg Normal 26.7-34.0 [facility] Comment on above: Performed By: #### C BC #### [facility] [address] [place] [address] Dr. Lester Yen MCHC (RBC) [Mass/Vol] 33.4 g/dL Normal 29.9-35.2 [facility] Comment on above: Performed By: #### C BC #### [facility] [address] [place] [address] Dr. Lester Yen MCV (RBC) [Entitic vol] 93.2 fL Normal 81.0-99.0 [facility] Comment on above: Performed By: #### C BC #### [facility] [address] [place] [address] Dr. Lester Yen MONO # 0.5 103/ul Normal 0.3-0.8 [facility] Comment on above: Performed By: #### C BC #### [facility] [address] [place] [address] Dr. Lester Yen Monocytes/100 WBC (Bld) 8.4 % Normal 1.7-12.0 [facility] Comment on above: Performed By: #### C BC #### [facility] [address] [place] [address] Dr. Lester Yen NEUT # 3.9 103/ul Normal 1.4-6.5 [facility] Comment on above: Performed By: #### C BC #### [facility] [address] [place] [address] Dr. Lester Yen Neutrophils/100 WBC (Bld) 66.3 % Normal 43.0-75.0 [facility] Comment on above: Performed By: #### C BC #### [facility] [address] [place] [address] Dr. Lester Yen Platelet mean volume (Bld) [Entitic vol] 9.8 fL Normal 9.5-13.5 [facility] Comment on above: Performed By: #### C BC #### [facility] [address] [place] [address] Dr. Lester Yen PLT 186 103/ul Normal 150-450 [facility] Comment on above: Performed By: #### C BC #### [facility] [address] [place] [address] Dr. Lester Yen RBC 4.24 106/ul Normal 4.20-5.40 [facility] Comment on above: Performed By: #### C BC #### [facility] [address] [place] [address] Dr. Lester Yen WBC 5.9 103/ul Normal 4.0-11.0 [facility] Comment on above: Performed By: #### C BC #### [facility] [address] [place] [address] ABD/PELV W CONon 05-28-20 CT ABD/PELV W CON EXAMINATION: CT ABD/PELV W CON, 05/28/2022 10:46 AM EDT HISTORY: GENERALIZED ABDOMINAL PAIN COMPARISON: None. TECHNIQUE: CT scan of the abdomen and pelvis was performed with IV contrast. CT dose reduction technique was used, including Automated Exposure Control. FINDINGS: LUNG BASES: No visible pulmonary or pleural disease. LIVER: The liver is prominent in size BILIARY: No dilatation or calcification. PANCREAS: No lesion, fluid collection, ductal dilatation, or atrophy. SPLEEN: No enlargement or focal lesion. ADRENALS: No mass or enlargement. KIDNEYS: No mass, obstruction, or calcification. 10 mm left cortical simple cyst BOWEL/MESENTERY: No visible mass, obstruction, or bowel wall thickening. Normal appendix AORTA/VASCULAR: No aneurysm or dissection. RETROPERITONEUM: No mass or adenopathy. LYMPH NODES: No adenopathy. URINARY BLADDER: Moderate distention PELVIC ORGANS: The uterus is prominent in size, heterogeneous in echotexture ABDOMINAL WALL: 2 focal soft tissue densities are identified in the abdominal rectus muscle measuring 1.8 x 2.6 cm on the right and 2.7 x 1.6 cm on the left, both on axial image 96. BONES: No bony lesion or fracture. OTHER: Findings discussed with Dr. Hernandez by telephone IMPRESSION: Focal soft tissue densities in the lower rectus abdominis muscle the right side lesion is partially exophytic from the muscle and corresponds to the palpable abnormality demarcated with a BB marker. The clinical exam is not consistent with hematoma, the etiology is unknown. Possibly scarring related to multiple C-sections.. Electronically authenticated by: TOR JIN Date: 2022-05-28 12:57 Normal [facility] ER URINE PROFILEon 2 Bilirubin Ql (U) Negative Normal NEGATIVE [facility] Comment on above: Performed By: #### E GREG PREGU #### [facility] [address] [place] [address] Dr. Lester Yen Clarity (U) CLEAR Normal CLEAR [facility] Comment on above: Performed By: #### E MANUELR, PREGU #### [facility] [address] [place] [address] Dr. Lester Yen Color (U) LT. YELLOW Normal YELLOW [facility] Comment on above: Performed By: #### E MANUELR, PREGU #### [facility] [address] [place] [address] Dr. Lester Yen ERUAHD A micrscopic examination will be performed if indicated. Normal [facility] Comment on above: Performed By: #### E RUR, PREGU #### [facility] [address] [place] [address] Dr. Lester Yen Glucose Ql (U) Negative Normal NEGATIVE [facility] Comment on above: Performed By: #### E RUR, PREGU #### [facility] [address] [place] [address] Dr. Lester Yen Hemoglobin Ql (U) Negative Normal NEGATIVE [facility] Comment on above: Performed By: #### E RUR, PREGU #### [facility] [address] [place] [address] Dr. Lester Yen Ketones Ql (U) Negative Normal NEGATIVE [facility] Comment on above: Performed By: #### E RUR, PREGU #### [facility] [address] [place] [address] Dr. Lester Yen LEUKOCYTES Negative Normal NEGATIVE [facility] Comment on above: Performed By: #### E RUR, PREGU #### [facility] [address] [place] [address] Dr. Lester Yen Nitrite Ql (U) Negative Normal NEGATIVE [facility] Comment on above: Performed By: #### E RUR, PREGU #### [facility] [address] [place] [address] Dr. Lester Yen pH (U) 6.0 [pH] Normal 5-9 [facility] Comment on above: Performed By: #### E RUR, PREGU #### [facility] [address] [place] [address] Dr. Lester Yen SPEC GRAVITY <=1.005 Abnormal 1.005-<=1.02 5 [facility] Comment on above: Performed By: #### E RUR, PREGU #### [facility] [address] [place] [address] Dr. Lester Yen UA PROTEIN Negative Normal NEGATIVE/ TRACE [facility] Comment on above: Performed By: #### E RUR, PREGU #### [facility] [address] [place] [address] Dr. Lester Yen UR MICRO IND NOT INDICATED Normal [facility] Comment on above: Performed By: #### E RUR, PREGU #### [facility] [address] [place] [address] Dr. Lester Yen Urobilinogen Qn (U) 0.2 {Olivier'U}/dL Normal 0.2 - 1. 0 [facility] Comment on above: Performed By: #### E RUR, PREGU #### [facility] [address] [place] [address] Dr. Lester Yen LIPASEon 05-28-2022 Lipase [Catalytic activity/Vol] 96.0 U/L Normal 73.0-393.0 [facility] Comment on above: Performed By: #### C MP LIPA, SYLVIA #### [facility] [address] [place] [address] Dr. Lester Yen URon 05-28-2022 , QUAL Negative Normal NEGATIVE [facility] Comment on above: Performed By: #### E MANUELR, PREGU #### [facility] [address] [place] [address] Dr. Lester Yen PROF 14(COMP METB)on 022 Albumin [Mass/Vol] 4.0 g/dL Normal 3.4-5.0 [facility] Comment on above: Performed By: #### C MP LIPA, SYLVIA #### [facility] [address] [place] [address] Dr. Lester Yen Albumin/Globulin [Mass ratio] 1.4 {ratio} Normal [facility] Comment on above: Performed By: #### C MP, LIPA, SYLVIA #### [facility] [address] [place] [address] Dr. Lester Yen ALP [Catalytic activity/Vol] 56 U/L Normal 46-116 [facility] Comment on above: Performed By: #### C MP LIPA, SYLVIA #### [facility] [address] [place] [address] Dr. Lester Yen ALT [Catalytic activity/Vol] 14 U/L Normal 14-59 [facility] Comment on above: Performed By: #### C MP LIPA, SYLVIA #### [facility] [address] [address] [address] Lester Yen Anion gap [Moles/Vol] 13.3 mmol/L Normal [facility] Comment on above: Performed By: #### C MP, LIPA, SYLVIA #### [facility] [address] [address] [address] Lester Yen AST [Catalytic activity/Vol] 11 U/L Critically low 15-37 [facility] Comment on above: Performed By: #### C MP LIPA, SYLVIA #### [facility] [address] [address] [address] Lester Yen Bilirubin [Mass/Vol] 0.5 mg/dL Normal 0.2-1.0 [facility] Comment on above: Performed By: #### C MP LIPA, SYLVIA #### [facility] [address] [place] [address] Dr. Lester Yen Calcium [Mass/Vol] 8.9 mg/dL Normal 8.5-10.1 [facility] Comment on above: Performed By: #### C MP LIPA, SYLVIA #### [facility] [address] [place] [address] Dr. Lester Yen Chloride [Moles/Vol] 105 mmol/L Normal 98-107 [facility] Comment on above: Performed By: #### C MP, LIPA, SYLVIA #### [facility] [address] [address] [address] Lester Yen CO2 [Moles/Vol] 24.4 mmol/L Normal 21.0-32.0 [facility] Comment on above: Performed By: #### C MP, LIPA, SYLVIA #### [facility] [address] [place] [address] Dr. Lester Yen Creatinine [Mass/Vol] 0.88 mg/dL Normal 0.55-1.02 [facility] Comment on above: Performed By: #### C MP, LIPA, SYLVIA #### [facility] [address] [place], [place] [id number] Dr. Lester Yen EGFR-AF YEMENI >60 Normal >=60 [facility] Comment on above: Performed By: #### C ANJU PULIDO, SYLVIA #### [facility] [address] [place] [address] Dr. Lester Yen EGFR-NON AF YEMENI >60 Normal >=60 [facility] Comment on above: Performed By: #### C ANJU PULIDO, SYLVIA #### [facility] [address] [address] [address] Lester Yen Globulin (S) [Mass/Vol] 2.8 g/dL Normal [facility] Comment on above: Performed By: #### C ANJU PULIDO, SYLVIA #### [facility] [address] [place] [address] Dr. Lester Yen Glucose [Mass/Vol] 100 mg/dL Normal 74-106 [facility] Comment on above: Performed By: #### C ANJU PULIDO, SYLVIA #### [facility] [address] [place] [address] Dr. Lester Yen Potassium [Moles/Vol] 3.7 mmol/L Normal 3.5-5.1 [facility] Comment on above: Performed By: #### C ANJU PULIDO, SYLVIA #### [facility] [address] [place] [address] Dr. Lester Yen Protein [Mass/Vol] 6.8 g/dL Normal 6.4-8.2 [facility] Comment on above: Performed By: #### C ANJU PULIDO, SYLVIA #### [facility] [address] [place] [address] Dr. Lester Yen Sodium [Moles/Vol] 139 mmol/L Normal 136-145 [facility] Comment on above: Performed By: #### C ANJU PULIDO, SYLVIA #### [facility] [address] [place] [address] Dr. Lester Yen Urea nitrogen [Mass/Vol] 13.0 mg/dL Normal 7.0-18.0 [facility] Comment on above: Performed By: #### C ANJU PULIDO AMY #### [facility] [address] [address] [address] Lester Yen Urea nitrogen/Creatinine [Mass ratio] 14.8 mg/mg Normal [facility] Comment on above: Performed By: #### C ANJU PULIDO AMY #### [facility] [address] [address] [address] Lester Yen Nursing Home Documentson 04-19-2021 Nursing Home Documents [id number] Normal [facility] Nursing Home Documentson 06-06-2020 Nursing Home Documents Nursing Home Nurse Visit 14 day Health Appraisal Date of Appraisal: _05/31/2020 Booked Date: 05/26/2020 Court or Release Date: 06/02/2020 Did inmate come from another facility: no PCP: Yani [facility]ars Specialist: supposed to see a GI doctor Pharmacy: [facility] Have you ever had suicide attempts: _no If yes, when was your last attempt and how: Are you currently under the care of a practitioner for any reason: no If yes, please explain: _ Date Receiving Screen Evaluation Form reviewed: 05/26/2020 Date Suicide Prevention Health Form reviewed: 05/26/2020 Has the sick call procedure has been explained: yes Does Inmate verbalize understanding: yes Do you or have you ever had any of the following: Recent Head Injury: no Persistent Headaches: no Vertigo/Dizziness/ Fainting: no Stroke/TIA: no Seizure Disorder: no Eye/Vision Problems: no Ear/Nose/Throat Problems: no Dental Problems: no Problems Breathing/ Asthma: no Genitourinary Problems: no Diabetes: no Gastrointestinal Issues: bad pains around belly button High/Low Blood Pressure: no Heart Problems: no Recent Broken Bones or deformities: no Arthritis/ Joint Mobility Issues or Deformities: no Back/Neck Problems: no Skin Problems, Rashes, Open Wounds: no STDs (recent, past, or present): Past - clamydia, gonorrhe Hepatitis Positive: no HIV Positive: no Bleeding/Other Blood Disorder: blood comes out of my stomach, maybe a cyst Body Infestation (Lice, Crabs, Scabies, Etc): no LMP: currently on it Complications: no Month/Year of Last Gynecological Exam: 2016 Month/Year of Last Mammogram: never Previous Gynecological Surgeries/Procedures : 3 c sections Month/Year: _ Complications: _ Current Control Use: none If yes, type/length of use: _ Are you currently : ni If Yes, UPT Results: _ If , are you planning on : _ If Yes, for how long: _ Para: 3 : 3 Previous Complications (if applicable): _ Personal or Family Hx of Gynecological Problems: none Relationship: _ Diagnosis: _ Year: _ Do you have a history of: Violence towards others: _no Being victimized: no Being sexually assaulted: no Sexually assaulting others: no Is this person obviously a higher risk for victimization or assault: no How does the patient identify him/herself in terms of gender: female SKIN: warm, dry, intact Skin Color: normal for ethnicity Turgor: wnl Bruises: no Wound/Lesions: no Rash: no Jaundice: no Edema: no Clarify and describe: _ Is Physical Therapy needed: no CARDIOVASCULAR: _ Arrhythmia: no Chest Pain: no Clarify yes response: RESPIRATORY: even, unlabored Dyspnea: no Cough: yes Clarify yes response: dry cough [Mental Status Exam] TB Skin Test Have you ever had tuberculosis: no Have you ever had a positive TB skin test: no PPD given on: 05/31/2020 Location given: L forearm Date vial opened: 05/18/2020 Lot number: [id number] Expiration date: 01/24 PPD Comments: PPD Results PPD Result (mm of Induration): 0.0mm Read on: 06/02/2020 Inmate states they have had the following Immunizations: vaccinations as a child, none as an adult Hep A: _ Hep B: _ DTAP: _ HIB: _ IPV: _ MMR: _ Varivax: _ HPV: _ Influenza: _ PneumoPCV: _ PPSV23: _ Inmate tested positive for the following drugs: Refulsed drug test and denies any usage Amphetamine (AMP): _ Cocaine (ALEX): _ Secobarbital (BAR): _ Buprenorphine (BUP): _ Methamphetamine (MET/mAMP): _ Ecstasy (MDMA): _ Opiates (OPI): _ Marijuana (THC): _ Benzodiazepine (BZO): _ Methadone (MTD): _ Oxycodone (OXY): _ Fentanyl (FTY): _ Alcohol (ETG): _ Tramadol (TRA): _ Synthetic Cannabinoids (K2): _ Have you ever had seizures or other symptoms of withdrawal after stopping the use of alcohol/drugs? _no Do you wish to attend AA Meetings? _ sure Nursing Home Assessment 05/31/20 15:54:00 Nursing Home Assessment Entered On: 05/31/2020 15:56 EDT Performed On: 05/31/2020 15:54 EDT by Chanell Judd RN Covid-19, MERS, Ebola Screen *Contact With Person With Highly Contagious Disease Like Ebola/MERS/COVID-19 AND Have One or More of the Symptoms Below : No *Travel to a Country With Wide-Spread Ebola/MERS/COVID-19 in the Past 21 Days AND Have One or More of the Symptoms Below : No Patient Reported Covid-19 Testing : No *Verify Droplet, Contact Precautions for Ebola (Reference for CDC) : N/A *Verify Airborne, Droplet Precautions for MERS/COVID-19 : N/A Chanell Judd RN - 05/31/2020 15:54 EDT Summary Chief Complaint : health appraisal Height/Length Measured : 160 cm(Converted to: 5 ft 3 in, 62.99 in) Weight Measured : 64.0 kg(Converted to: 141 lb 2 Ounces, 141.096 lb) Body Mass Index Measured : 25 kg/m2 Blood Pressure Location : Right arm Systolic Blood Pressure : 118 mmHg Diastolic Blood Pressure : 76 mmHg Blood Pressure Posi (more content not included)... Normal [facility] Nursing Home Documentson 05-29-2020 Nursing Home Documents [id number]#[id number]:127 Normal [facility] Chlam/GC/Trich,NAAon 020 C. trachomatis rRNA JOSE+probe Ql (Unsp spec) Negative Invalid Interpretation Code Negative [facility] Comment on above: Performed By: #### 1 [id number] #### [facility] [address] [place] [address] N. gonorrhoeae rRNA JOSE+probe Ql (Unsp spec) Negative Invalid Interpretation Code Negative [facility] Comment on above: Performed By: #### 1 [id number] #### [facility] [address] [place] [address] T. vaginalis DNA JOSE+probe Ql (Unsp spec) Negative Invalid Interpretation Code Negative [facility] Comment on above: Result Comment: Perf ormed at: =G [facility] [address] Muse [id number] MD Jama Valdivia Performed By: #### 1 [id number] #### [facility] [address] [place] [address] Coding Summary.on 05-15-2020 Coding Summary. CODING DATE: 05/15/2020 FINAL [facility] STATUS: Home (Routine DC) PAYOR: Medicaid EAPG DESCRIPTION 0425 LEVEL I OTHER MISCELLANEOUS ANCILLARY PROCEDURES 0403 ORGAN OR DISEASE ORIENTED PANELS 0410 URINALYSIS 0402 BASIC CHEMISTRY TESTS 0408 LEVEL I HEMATOLOGY TESTS 0752 LEVEL I MENSTRUAL AND OTHER FEMALE DIAGNOSES 0489 LEVEL II OTHER MISCELLANEOUS ANCILLARY PROCEDURES 0471 PLAIN FILM 0289 VASCULAR DIAGNOSTIC ULTRASOUND OF LOWER EXTREMITIES 0396 LEVEL I MICROBIOLOGY TESTS 0397 LEVEL II MICROBIOLOGY TESTS 0490 INCIDENTAL TO MEDICAL, SIGNIFICANT PROCEDURE OR THERAPY VISIT 0496 MINOR PHARMACOTHERAPY ADMIT DX: REASON FOR VISIT DX: R10.9 Unspecified abdominal pain R11.2 Nausea with vomiting, unspecified N93.9 Abnormal uterine and vaginal bleeding, unspecified FINAL DX: PRINCIPAL: R10.2 Pelvic and perineal pain SECONDARY: N83.201 Unspecified ovarian cyst, right side F17.210 Nicotine dependence, cigarettes, uncomplicated PYMT PROC EAPG STAT DESCRIPTION DOCTOR NAME DATE NOTE: The code number assigned matches the documented diagnosis and / or procedure in the patient's chart. However, the narrative phrase printed from the coding software may appear abbreviated, or result in slightly different terminology. Revised Coded By: Tammie Guillen Revised Date Saved: 05/15/2020 10:37 am Normal [facility] Amylaseon 05-14-2020 Amylase [Catalytic activity/Vol] 58 U/L Normal 25-157 [facility] Comment on above: Performed By: #### 2 853226, [id number], 2636059, 7010523, 7535573, 5615526, 5964929 ####[facility] [address] [place] [address] Auto Diffon 05-14-2020 Basophils/100 WBC (Bld) 0.5 % Normal 0.0-2.0 [facility] Comment on above: Order Comment: Order Added by Discern Expert. Performed By: #### 2 961128, 18566932, 1021252, 5842986, 8726336, 3479498, 4346058 ####[facility] [address] [place] [address] Basophils/Leukocytes Auto (Bld) [Pure # fraction] 0.0 E9/L Normal 0.0-0.2 [facility] Comment on above: Order Comment: Order Added by Discern Expert. Performed By: #### 2 866523, 38743892, 5931106, 8652649, 0975015, 8816620, 2934706 ####[address] [address] Eosinophils/100 WBC (Bld) 8.4 % High 0.0-8.0 [facility] Comment on above: Order Comment: Order Added by Discern Expert. Performed By: #### 2 769926, 87908850, 4092622, 8818033, 5408080, 1965793, 1676398 ####[address] [address] Eosinophils/Leukocytes Auto (Bld) [Pure # fraction] 0.5 E9/L Normal 0.0-0.5 [facility] Comment on above: Order Comment: Order Added by Discern Expert. Performed By: #### 2 941479, 23783525, 8918797, 8391435, 0900856, 5989501, 3364083 ####[address] [place] [address] Lymphocytes/100 WBC (Bld) 31.4 % Normal 14.0-50.0 [facility] Comment on above: Order Comment: Order Added by Lacy Expert. Performed By: #### 2 561099, 06237698, 0136997, 2890094, 8320000, 2714239, 7517917 ####[facility] [address] [place] [address] Lymphocytes/Leukocytes Auto (Bld) [Pure # fraction] 1.8 E9/L Normal 1.0-4.0 [facility] Comment on above: Order Comment: Order Added by Discern Expert. Performed By: #### 2 706574, 36703157, 2682254, 2758077, 3520533, 8822539, 9178268 ####[address] [place] [address] Monocytes/100 WBC (Bld) 8.2 % Normal 4.0-14.0 [facility] Comment on above: Order Comment: Order Added by Discern Expert. Performed By: #### 2 701055, 68858277, 8157944, 8462873, 8057719, 4957228, 5536385 ####[address] [place] [address] Monocytes/Leukocytes Auto (Bld) [Pure # fraction] 0.5 E9/L Normal 0.2-1.0 [facility] Comment on above: Order Comment: Order Added by Lacy Expert. Performed By: #### 2 077196, 05554514, 9292553, 0660613, 1802427, 1493387, 0244469 ####[address] [address] Neutrophils/100 WBC (Bld) 51.5 % Normal 36.0-75.0 [facility] Comment on above: Order Comment: Order Added by Discern Expert. Performed By: #### 2 248892, 64680390, 8573476, 7326603, 1874346, 4634512, 9538637 ####[address] [place] [address] Neutrophils/Leukocytes Auto (Bld) [Pure # fraction] 2.9 E9/L Normal 2.0-7.5 [facility] Comment on above: Order Comment: Order Added by Lacy Expert. Performed By: #### 2 022010, 71175873, 1038317, 2199282, 8678025, 6775522, 0619302 ####[facility] [address] [place] [address] BMPon 05-14-2020 Anion gap [Moles/Vol] 12 mmol/L Normal 6-16 [facility] Comment on above: Performed By: #### 2 158307, 33148933, 0981881, 4556998, 2486617, 2998042, 7651920 ####[facility] [address] [place] [address] Calcium [Mass/Vol] 9.3 mg/dL Normal 8.9-11.1 [facility] Comment on above: Performed By: #### 2 019641, 24788506, 2329183, 4153637, 4819940, 7456058, 5831495 ####[facility] [address] [place] [address] Chloride [Moles/Vol] 103 mmol/L Normal 101-111 [facility] Comment on above: Performed By: #### 2 121679, 77334562, 6038377, 7183477, 1391725, 2374289, 9170153 ####[facility] [address] [place] [address] CO2 [Moles/Vol] 27 mmol/L Normal 21-31 [facility] Comment on above: Performed By: #### 2 150270, 18698271, 9257047, 9510137, 1275123, 3241472, 6681159 ####[facility] [address] [place] [address] Creatinine [Mass/Vol] 0.9 mg/dL Normal 0.5-1.3 [facility] Comment on above: Performed By: #### 2 244731, 57116623, 9231556, 5098641, 9579991, 2164899, 5589739 ####[facility] [address] [place] [address] Glucose [Mass/Vol] 89 mg/dL Normal 55-199 [facility] Comment on above: Result Comment: If t his glucose result represents a fasting glucose, interpretation should refer to the following reference range: 55-99 mg/dL Performed By: #### 2 458008, 99698191, 4404419, 9725622, 3152889, 6994740, 2204315 ####[facility] [address] [place] [address] Potassium [Moles/Vol] 3.8 mmol/L Normal 3.5-5.3 [facility] Comment on above: Performed By: #### 2 349896, 32567291, 4278386, 0987093, 7239948, 5340284, 4920183 ####[facility] [address] [place] [address] Sodium [Moles/Vol] 138 mmol/L Normal 135-145 [facility] Comment on above: Performed By: #### 2 482453, 09867520, 6473924, 2557859, 9323846, 1979294, 4593520 ####[facility] [address] [place] [address] Urea nitrogen [Mass/Vol] 14 mg/dL Normal 5-21 [facility] Comment on above: Performed By: #### 2 866200, 60526727, 2771383, 0724896, 6468956, 4687738, 0781889 ####[facility] [address] [place] [address] Urea nitrogen/Creatinine [Mass ratio] 16 No Units Normal 10-20 [facility] Comment on above: Performed By: #### 2 479791, 62115147, 6128623, 8587656, 8767359, 9899480, 0894888 ####[facility] [address] [place] [address] CBC w/ Auto Diffon 0 Erythrocyte distribution width (RBC) [Ratio] 12.7 % Normal 10.9-14.2 [facility] Comment on above: Performed By: #### 2 367968, 68049386, 6992265, 8768822, 7167889, 2111493, 6127053 ####[facility] [address] [place], [place] [address] Hematocrit (Bld) [Volume fraction] 41.7 % Normal 34.0-46.0 [facility] Comment on above: Performed By: #### 2 281007, 91235280, 2269997, 9326668, 6603438, 0605174, 6496195 ####[place] [address] Hemoglobin (Bld) [Mass/Vol] 13.9 g/dL Normal 12.0-16.0 [facility] Comment on above: Performed By: #### 2 235110, 17207373, 8137902, 7388499, 8543463, 9820681, 0991477 ####[place] [address] MCH (RBC) [Entitic mass] 30.8 pg Normal 27.0-34.0 [facility] Comment on above: Performed By: #### 2 313014, 19960201, 3046370, 5614667, 4638741, 2339639, 4022961 ####[address] [place] [address] MCHC (RBC) [Mass/Vol] 33.3 g/dL Normal 31.4-36.0 [facility] Comment on above: Performed By: #### 2 100851, 86282264, 3749592, 7076458, 3936991, 7291343, 6853503 ####[address] [address] MCV (RBC) [Entitic vol] 92.5 fL Normal 80.0-100.0 F [facility] Comment on above: Performed By: #### 2 167023, 61660738, 2960142, 6030824, 9099790, 8919065, 2239978 ####[address] [address] Platelet mean volume (Bld) [Entitic vol] 8.2 fL Normal 6.4-10.8 [facility] Comment on above: Performed By: #### 2 350907, 10616130, 1801322, 2303837, 3005740, 1841323, 2616764 ####[facility] [address] [place] [address] Platelets (Bld) [#/Vol] 230.0 E9/L Normal 150.0-500.0 [facility] Comment on above: Performed By: #### 2 796242, 01214255, 3463039, 2430568, 9937600, 0377740, 7206169 ####[facility] [address] [place] [address] RBC (Bld) [#/Vol] 4.5 E12/L Normal 4.3-5.9 [facility] Comment on above: Performed By: #### 2 516203, 69284101, 2535555, 1538261, 1472042, 0470353, 1761636 ####[facility] [address] [place] [address] WBC corrected for nucl RBC Auto (Bld) [#/Vol] 5.7 E9/L Normal 4.0-11.0 [facility] Comment on above: Performed By: #### 2 097000, 59531350, 1766337, 1800022, 9026707, 0996403, 0696241 ####[facility] [address] [place] [address] Discharge Instructionson Discharge Instructions [id number] #1.00CD:127 Normal [facility] ED Clinical Summaryon 2019 ED Clinical Summary [address] [address] ED Clinical Summary Person Information Name: BREANA REED Viv/[facility] Age: 29 Years : 1990 Sex: Female Language: Azeri PCP: Mica CARLTON MD Marital Status: Single Phone: [phone] Visit Id: Visit Reason: Abdominal pain; STOMACH PAIN Speciality: Acuity: 3 Enc Type: Emergency Med Service: Emergency Arrival: 05/13/2020 21:43:46 Discharge: 05/14/2020 04:30:00 LOS: 000 06:47 Checkin: 05/13/2020 21:43:46 Checkout: 05/14/2020 04:30:00 Dispo Type: Home (Routine DC) EVENTS: Event Name Event Status Request Date/Time Start Date/Time Complete Date/Time Arrive Complete 05/13/2020 21:43:46 05/13/2020 21:43:46 05/13/2020 21:43:46 Document Home Meds Request 05/13/2020 21:43:46 Triage Complete 05/13/2020 21:43:46 05/13/2020 21:56:20 05/13/2020 21:56:20 Bed Assign Complete 05/13/2020 21:56:40 05/13/2020 21:56:40 05/13/2020 21:56:40 Dr Exam Complete 05/13/2020 21:56:40 05/13/2020 22:26:14 05/13/2020 22:26:14 RN Exam Complete 05/13/2020 21:56:40 05/13/2020 22:08:34 05/13/2020 22:08:34 Pending Labs Complete 05/13/2020 22:01:07 05/13/2020 22:22:22 Lab Complete 05/13/2020 22:01:07 05/13/2020 22:22:22 Urine Collect Complete 05/13/2020 22:01:07 05/13/2020 22:22:22 Pending Labs Complete 05/13/2020 22:11:49 05/13/2020 23:00:23 Lab Complete 05/13/2020 22:11:49 05/13/2020 23:00:23 Registration Complete 05/13/2020 22:17:38 05/13/2020 22:17:38 05/13/2020 22:17:38 Reg Complete Request 05/13/2020 22:17:38 Reg Bed Request Complete 05/13/2020 22:17:38 05/13/2020 22:17:38 05/13/2020 22:17:38 Registration Complete 05/13/2020 22:26:14 05/13/2020 22:33:27 05/13/2020 22:33:27 Pending Labs Complete 05/13/2020 22:39:06 05/13/2020 22:39:06 05/13/2020 23:00:22 Lab Complete 05/13/2020 22:39:06 05/13/2020 22:39:06 05/13/2020 23:00:22 Pending Labs Complete 05/13/2020 22:49:08 05/13/2020 22:49:08 05/13/2020 22:49:16 Lab Complete 05/13/2020 22:49:08 05/13/2020 22:49:08 05/13/2020 22:49:16 Pending Labs Cancel 05/13/2020 22:52:41 05/13/2020 22:57:57 Lab Cancel 05/13/2020 22:52:41 05/13/2020 22:57:57 Urine Collect Cancel 05/13/2020 22:52:41 05/13/2020 22:57:57 X-Ray Complete 05/13/2020 22:52:41 05/13/2020 23:36:42 05/14/2020 00:11:01 Meds Admin Complete 05/13/2020 22:53:10 05/13/2020 22:56:34 Pending Labs Complete 05/13/2020 22:55:10 05/13/2020 22:55:10 05/13/2020 23:19:15 Lab Complete 05/13/2020 22:55:10 05/13/2020 22:55:10 05/13/2020 23:19:15 Wet Read Request 05/14/2020 00:11:01 Meds Admin Complete 05/14/2020 00:35:35 05/14/2020 00:58:30 Pending Labs Start 05/14/2020 00:40:17 05/14/2020 03:32:30 Lab Start 05/14/2020 00:40:17 05/14/2020 03:32:30 Patient Care Request 05/14/2020 00:40:17 US Complete 05/14/2020 01:20:27 05/14/2020 03:04:42 Meds Admin Complete 05/14/2020 03:42:16 05/14/2020 04:07:05 Discharge Complete 05/14/2020 03:45:54 05/14/2020 04:35:55 05/14/2020 04:35:55 Meds Admin Complete 05/14/2020 04:02:08 05/14/2020 04:07:06 Transfer Complete 05/14/2020 04:35:55 05/14/2020 04:35:55 05/14/2020 04:35:55 ADDRESS: [facility] [address] PHYS DOC NOTES: MEDICAL INFORMATION: Prescriptions Given: New Medications Printed Prescriptions levofloxacin (Levaquin 500 mg Tab) 1 Tablets By Mouth every day. Refills: 0. Medications to Continue with No Changes Other Medications escitalopram (Lexapro 10 mg Tab) 1 Tablets By Mouth every day. PATIENT EDUCATION INFORMATION: Instructions: Pelvic Pain, Female, Uflo-dv-Ossc Follow up: With: Address: When: Mica CARLTON [address] [place], [place] [address], [place] [phone] Business (1) In 3 days 05/17/2020 Comments: Followup with your environmental aid next week DIAGNOSIS: 1:Abdominal pain in female; Pelvic pain Normal [facility] ED Note-Nursingon 05-14-2020 ED Note-Nursing Dr. Renner at bedside for assessment. Normal [facility] ED Note-Nursing Patient to xray. Normal [facility] ED Note-Nursing Dr. Renner at bedside for results update. Normal [facility] ED Note-Nursing Patient to u/s Normal [facility] ED Note-Nursing Dr. Renner at bedside for results review. Normal [facility] ED Note-Nursing Dr. Renner aware of patient c/o generalized abd pain, rates at 7/10. Order received for [place], 2 tabs, one-time only. Normal [facility] ED Note-Physicianon 05-14-20 20 ED Note-Physician Basic Information Time Seen: Lucio Renner MD 05/13/2020 22:26 Chief Complaint C/o abd pain x months with n/v/d, states unable to se till fri I have to work friday night so I have to find out what is wrong. Also reports int vaginal bleeding. Irregaula menstral bleeding x 3-4 months. History of Present Illness presents complaining of abdominal pain for the past 2 months. Pain would come and go. pain associated with nausea and vomiting. No fever. Denies constipation. admits to vaginal bleeding on and off for 2 months Review of Systems Constitutional: no fever, no chills, no sweats, no weakness Respiratory: no shortness of breath, no cough, no orthopnea, no wheezing Cardiovascular: no chest pain, no palpitations, no edema Additional ROS info: Except as noted in the above Review of Systems and in the History of Present Illness all other systems have been reviewed and are negative or noncontributory. Physical Exam Vitals & Measurements T: 36.8 ?C (Oral) HR: 64(Peripheral) RR: 16 BP: 110/67 SpO2: 99% HT: 160 cm WT: 66 kg BMI: 25.78 General: alert, no acute distress Skin: warm, dry Head: no trauma, normocephalic Neck: Trachea midline, no adenopathy, no tenderness Eye: normal conjunctiva, sclera clear ENMT: , oral mucosa moist, Cardiovascular: regular rate and rhythm, normal peripheral perfusion Respiratory: Lungs CTA, respirations non labored Chest wall: no deformity. Gastrointestinal: soft, non distended, RLQ and periumbilical tenderness no guarding. suprapubic tenderness. empty vault. No blood or discharge pelvic. normal external exam. mod. cervical motion and right adnexa tenderness Back: No tenderness, Normal ROM, Normal alignment. Extremities: no deformity, no trauma Neurological: oriented x 4, LOC appropriate for age, CN intact, motor strength equal & normal bilaterally, sensation equal & normal bilaterally, speech normal Psychiatric: cooperative, affect appropriate for age, normal judgement, normal psychiatric thoughts. Medical Decision Making patient presents with worsening abdominal pain over 2 months and history of recurrent vaginal bleeding. Exam demonstrated suprapubic tenderness, cervical motion and right adnexa moderate tenderness. U/S demonstrated 1.5cm right ovarian cyst that does not explain her pain. Pelvic cultures obtained. Will treat as possible pelvic infection and recommend she followup with her environmental aid Assessment/Plan 1. Abdominal pain in female (R10.9: Unspecified abdominal pain) pelvic pain Pelvic pain (R10.2: Pelvic and perineal pain) Orders: azithromycin, 1,000 mg = 4 tab(s), Tab, Oral, Once, Stop date 05/14/20 3:41:00 EDT, STAT, Start date 05/14/20 3:41:00 EDT ceftriaxone, 250 mg = 1 EA, Injection, IntraMuscular, Once, Stop date 05/14/20 3:41:00 EDT, STAT, Start date 05/14/20 3:41:00 EDT dicyclomine, 20 mg = 2 cap(s), Cap, Oral, Once, Stop date 05/14/20 0:35:00 EDT, STAT, Start date 05/14/20 0:35:00 EDT levofloxacin, 500 mg = 1 tab(s), Oral, Daily, # 7 tab(s), Refills(s) 0 ondansetron, 4 mg = 1 tab(s), Tab-Dis, Oral, Once, Stop date 05/13/20 22:52:00 EDT, STAT, Start date 05/13/20 22:52:00 EDT Amylase Level Automated Diff Basic Metabolic Panel CBC w/ Auto Diff Cervical Culture Chlam/GC/Trich,JOSE eGFR Hepatic Function Panel Lipase Level Pelvic Exam Setup U Beta Hcg Qual UA With Cult Reflex US Pelvis Non-OB Complete XR Abdomen Series w/ Chest 1 View Medications Administered Given Bentyl 10 mg Cap, 20 mg, Oral Zofran ODT 4 mg Tab-Dis, 4 mg, Oral Disposition Plan Discharge Prescription List Prescriptions No active prescription medications Follow-up No qualifying data available Problem List/Past Medical History Ongoing Smoker Historical Asthma Procedure/Surgical History None. Medications Inpatient cefTRIAXone IM, 250 mg= 1 EA, IntraMuscular, Once Zithromax 250 mg Tab, 1000 mg= 4 tab(s), Oral, Once Home Lexapro 10 mg Tab, 10 mg= 1 tab(s), Oral, Daily Allergies No Known Allergies Social History Alcohol - Denies Alcohol Use, 03/31/2010 Substance Abuse - Denies Substance Abuse, 03/31/2010 Tobacco - Medium Risk, 05/13/2020 Current, Cigarettes, 3 per day., 03/31/2010 Lab Results WBC: 5.7 E9/L (05/13/20 22:35:00) RBC: 4.5 E12/L (05/13/20 22:35:00) Hgb: 13.9 gm/dL (05/13/20 22:35:00) Hct: 41.7 % (05/13/20 22:35:00) MCV: 92.5 fL (05/13/20 22:35:00) MCH: 30.8 pg (05/13/20 22:35:00) MCHC: 33.3 gm/dL (05/13/20 22:35:00) RDW: 12.7 % (05/13/20 22:35:00) Platelet: 230 E9/L (05/13/20 22:35:00) MPV: 8.2 fL (05/13/20 22:35:00) Neutro Auto: 51.5 % (05/13/20 22:35:00) Lymph Auto: 31.4 % (05/13/20 22:35:00) Canadian Auto: 8.2 % (05/13/20 22:35:00) Eos Auto: 8.4 % High (05/13/20:35:00) Basophil Auto: 0.5 % (05/13/20 22:35:00) Neutro Absolute: 2.9 E9/L (05/13/20 22:35:00) Lymph Absolute: 1.8 E9/L (05/13/20 22:35:00) Canadian Absolute: 0.5 E9/L (05/13/20 22:35:00) Eos Absolute: 0.5 E9/L (05/13/20 (more content not included)... Normal [facility] Comment on above: Result Comment: Elec tronically Signed By: Zurdo ESCALANTE, Lucio\.br\Date and Time Signed: 05/14/20 03:46 EDT ED Patient Education Noteon 05-14-2020 ED Patient Education Note Family Medicine Pelvic Pain Pelvic pain is pain felt below the belly button and between your hips. It can be caused by many different things. It is important to get help right away. This is especially true for severe, sharp, or unusual pain that comes on suddenly. HOME CARE ? Only take medicine as told by your doctor. ? Rest as told by your doctor. ? Eat a healthy diet, such as fruits, vegetables, and lean meats. ? Drink enough fluids to keep your pee (urine) clear or pale yellow, or as told. ? Avoid sex (intercourse) if it causes pain. ? Apply warm or cold packs to your lower belly (abdomen). Use the type of pack that helps the pain. ? Avoid situations that cause you stress. ? Keep a journal to track your pain. Write down: ? When the pain started. ? Where it is located. ? If there are things that seem to be related to the pain, such as food or your period. ? Follow up with your doctor as told. GET HELP RIGHT AWAY IF: ? You have heavy bleeding from the vagina. ? You have more pelvic pain. ? You feel lightheaded or pass out (faint). ? You have chills. ? You have pain when you pee or have blood in your pee. ? You cannot stop having watery poop (diarrhea). ? You cannot stop throwing up (vomiting). ? You have a fever or lasting symptoms for more than 3 days. ? You have a fever and your symptoms suddenly get worse. ? You are being physically or sexually abused. ? Your medicine does not help your pain. ? You have fluid (discharge) coming from your vagina that is not normal. MAKE SURE YOU: ? Understand these instructions. ? Will watch your condition. ? Will get help if you are not doing well or get worse. Document Released: 03/10/2009 Document Revised: 03/23/2013 Document Reviewed: 01/11/2013 ExitCare? Patient Information ?2015 [employer]. This information is not intended to replace advice given to you by your health care provider. Make sure you discuss any questions you have with your health care provider. Normal [facility] ED Patient Summaryon 020 ED Patient Summary [place] [id number] Patient Discharge Instructions Person Information Name: BREANA REED Age: 29 Years Arrival Date: 05/13/2020 21:43:46 Discharge Diagnosis: 1:Abdominal pain in female; Pelvic pain Primary Care Physician: Mica CARLTNO MD Provider Information Primary Provider: Lucio eRnner MD Advanced Sr. Media Manager:None The exam and treatment you received in the Emergency Department were for an urgent problem and are not intended as complete care. It is important that you follow up with a doctor, nurse practitioner, or physician?s property assistant for ongoing care. If your symptoms become worse or you do not improve as expected and you are unable to reach your usual health care provider, you should return to the Emergency Department. We are available 24 hours a day. BREANA REED has been given the following list of patient education materials, prescriptions and follow-up instructions: Follow-up Instructions: With: Address: When: Mica CARLTON [address] [place], [place] [address] [phone] Business (1) In 3 days 05/17/2020 Comments: Followup with your environmental aid next week In the event that this physician does not participate in your insurance network, please consult with your insurance company to find a nearby participating provider. Patient Education Materials: Pelvic Pain, Female, Ftfn-kj-Fkjt A MESSAGE TO ALL PATIENTS REGARDING OPIOIDS PRESCRIPTION OPIOIDS: WHAT YOU NEED TO KNOW Prescription opioids can be used to help relieve uttxkwab-rw-pjktcl pain and are often prescribed following a surgery or injury, or for certain health conditions. These medications can be an important part of the treatment but also come with serious risks. It is important to work with your healthcare provider to make sure you are getting the safest, most effective care. WHAT ARE THE RISKS AND SIDE EFFECTS OF OPIOID USE? Prescription opioids carry serious risks of addiction and overdose, especially with prolonged use. An opioid overdose, often marked by slowed breathing, can cause sudden . The use of prescription opioids can have a number of side effects as well, even when taken as directed: ? Tolerance?meaning you might need to take more of the medication for the same pain relief ? Physical dependence?meaning you have symptoms of withdrawal when a medication is stopped ? Increased sensitivity to pain ? Constipation ? Nausea, vomiting, and dry mouth ? Sleepiness and dizziness ? Confusion ? Depression ? Low levels of testosterone that can result in lower sex drive, energy, and strength ? Itching and sweating RISKS ARE GREATER WITH: ? History of drug misuse, substance use disorder, or overdose ? Mental health conditions (such as depression or anxiety) ? Sleep apnea ? Older age (65 years and older) ? Avoid alcohol while taking prescription opioids. Also, unless specifically advised by your health care provider, medications to avoid include: ? Benzodiazepines (such as Xanax or Valium) ? Muscle relaxants (such as Soma or Flexeril) ? Hypnotics (such as Ambien or Lunesta) ? Other prescription opioids KNOW YOUR OPTIONS Talk to your health care provider about ways to manage your pain that don?t involve prescription opioids. Some of these options may actually work better and have fewer risks and side effects. Options may include: ? Pain relievers such as acetaminophen, ibuprofen, and naproxen ? Some medication that are also used for depression or seizures ? Physical therapy and exercise ? Cognitive behavioral therapy, a psychological, goal-directed approach, in which patients learn how to modify physical, behavioral, and emotional triggers of pain and stress. IF YOU ARE PRESCRIBED OPIOIDS FOR PAIN: ? Never take opioids in greater amounts or more often than prescribed. ? Follow up with your primary health care provider. o Work together to create a plan on how to manage your pain. o Talk about ways to help manage your pain that don?t involve prescription opioids. o Talk about any and all concerns and side effects. ? Help prevent misuse and abuse o Never sell or share prescription opioids. o Never use another person?s prescription opioids. ? Store prescription opioids in a secure place and out of reach of others (this may include visitors, children, friends, and family). ? Safely dispose of unused prescription opioids: Find your community drug take-back program or your pharmacy mail-back program, or flush them down the toilet, following guidance from the Food and Drug Administration (www.fda.gov/Drugs/R esourcesForYou). ? Visit www.cdc.gov/drugover dose to learn about the risks of opioids abuse and overdose. ? If you believe you may be struggling with addiction, tell your (more content not included)... Normal [facility] Hep Func Panelon 05-14-2020 Albumin [Mass/Vol] 4.2 g/dL Normal 3.3-5.0 [facility] Comment on above: Performed By: #### 2 151139, [id number], 4165838, 8777305, 0708437, 4959918, 3016584 ####[facility] [place] [address] Albumin/Globulin (S) [Mass conc ratio] 1.4 Normal 1.1-2.2 [facility] Comment on above: Performed By: #### 2 121350, 02853482, 3149351, 4382649, 3578208, 4130112, 8404008 ####[facility] [address] [place] [address] ALP [Catalytic activity/Vol] 62 Int._Unit/L Normal 21-98 [facility] Comment on above: Performed By: #### 2 850978, 13531631, 9600287, 8138458, 5433460, 1788243, 3780420 ####[facility] [address] [place] [address] ALT No additional P-5'-P [Catalytic activity/Vol] 15 Int._Unit/L Normal 6-46 [facility] Comment on above: Performed By: #### 2 657682, 21410937, 5220317, 7903575, 7227843, 1395828, 4008881 ####[facility] [address] [place] [address] AST [Catalytic activity/Vol] 15 Int._Unit/L Normal 5-43 [facility] Comment on above: Performed By: #### 2 936132, 92026635, 4878598, 1691458, 8260825, 7949670, 1140150 ####[facility] [address] [place] [address] Bilirubin [Mass/Vol] 0.8 mg/dL Normal 0.0-1.1 [facility] Comment on above: Performed By: #### 2 368139, 35810953, 3260909, 2758701, 5779728, 9414389, 3468262 ####[facility] [address] [place] [address] Bilirubin.direct [Mass/Vol] mg/dL Normal 0.1-0.4 [facility] Comment on above: Performed By: #### 2 409915, 38233710, 8277399, 7022526, 2814333, 5477834, 1960365 ####[facility] [address] [place] [address] Bilirubin.indirect [Mass or moles/Vol] UTC Abnormal 0.1-0.9 [facility] Comment on above: Result Comment: Resu lt verified by Discern Rule. Performed result UTC (Unable to Calculate) was sent as an Alpha code due the inability to calculate a valid numeric value. Performed By: #### 2 297839, 28337519, 3601987, 9458284, 5006579, 1468656, 7162098 ####[facility] [address] [place] [address] Globulin (S) [Mass/Vol] 2.9 g/dL Normal 1.4-4.0 [facility] Comment on above: Performed By: #### 2 042501, 59808500, 2747464, 9025275, 7478217, 1723321, 1123174 ####[facility] [address] [place] [address] Protein [Mass/Vol] 7.1 g/dL Normal 6.0-7.8 [facility] Comment on above: Performed By: #### 2 452129, 38870640, 6603257, 5049992, 2462992, 2074053, 8724622 ####[facility] [address] [place] [address] Lipase Levelon 05-14-2020 Lipase [Catalytic activity/Vol] 36 U/L Normal 13-58 [facility] Comment on above: Performed By: #### 2 569663, 15789263, 5918764, 3674787, 2855616, 2372084, 5745081 ####[facility] [address] [place] [address] U BetaHcg Qualon 05-14-2020 HCG.beta subunit (U) [Moles/Vol] Negative Normal [facility] Comment on above: Performed By: #### 2 4684037, 65243733 #### [facility] [address] [place] [address] UA With Cult Reflexon 2019 Bilirubin Ql (U) Negative Normal Negative [facility] Comment on above: Performed By: #### 2 6918505, 14551821 #### [facility] [address] [place] [address] Clarity (U) SL CLOUDY Abnormal Clear [facility] Comment on above: Performed By: #### 2 1152207, 45643592 #### [facility] [address] [place] [address] Color (U) YELLOW Normal Yellow [facility] Comment on above: Performed By: #### 2 3811131, 16511072 #### [facility] [address] [place] [address] Epithelial cells.squamous LM.HPF (Urine sed) [#/Area] 3-4 Normal 0-2 [facility] Comment on above: Performed By: #### 2 9734123, 01566630 #### [facility] [address] [place] [id number] Glucose Test strip (U) [Mass/Vol] Negative Normal Negative [facility] Comment on above: Performed By: #### 2 2518593, 65333845 #### [facility] [address] [place] [address] Hemoglobin Ql (U) Negative Normal Negative [facility] Comment on above: Performed By: #### 2 4101777, 90501509 #### [facility] [address] [place] [address] Ketones (U) [Mass/Vol] TRACE Abnormal Negative Fi [facility] Comment on above: Performed By: #### 2 1788431, 38659267 #### [facility] [address] [place] [address] Atwater.plasma/Atwater.R BC (Bld) [Mass ratio] 0-3 Normal 0-[address] [facility] Comment on above: Performed By: #### 2 8318794, 10618015 #### [facility] [address] [place] [address] Nitrite Ql (U) Negative Normal Negative [facility] Comment on above: Performed By: #### 2 0764143, 08273923 #### [facility] [address] [place] [address] pH (U) 7.0 [pH] Invalid Interpretation Code 5.0-9.0 [facility] Comment on above: Performed By: #### 2 4684934, 93867859 #### [facility] [address] [place] [address] Protein (U) [Mass/Vol] Negative Normal Negative [facility] Comment on above: Performed By: #### 2 9780743, 05713007 #### [facility] [address] [place] [address] Specific gravity (U) [Rel density] 1.020 Invalid Interpretation Code 1.005-1.030 [facility] Comment on above: Performed By: #### 2 0321236, 49506087 #### [facility] [address] [place] [address] UA Spec Desc Clean Catch Normal [facility] Comment on above: Performed By: #### 2 5323422, 16559358 #### [facility] [address] [place] [address] Urobilinogen Qn (U) 0.2 {Olivier'U}/dL Normal 0.0-1.0 [facility] Comment on above: Performed By: #### 2 0832402, 83814709 #### [facility] [address] [place] [address] WBC Auto Ql (U) Negative Normal Negative [facility] Comment on above: Performed By: #### 2 8758286, 87419026 #### [facility] [address] [place] [address] WBC LM.HPF (Urine sed) [#/Area] 0-5 Normal 0-5 [facility] Comment on above: Performed By: #### 2 8826388, 80904906 #### [facility] [address] [place] [address] US Pelvis Non-OB Completeon 05-14-2020 US Pelvis Non-OB Complete Exam Date/Time: 05/14/2020 03:04 EDT Reason for Exam: Ovarian cyst Report IMPRESSION: NEGATIVE ULTRASOUND OF THE PELVIS. CLINICAL HISTORY: Ovarian cyst. COMPARISON: COMMENT: Transabdominal images were obtained. The uterus measurements and an estimated volume are: Uterus Length: 9.8 cm Uterus Width: 4.1 cm Uterus Height: 3.8 cm Uterus Volume: 80.0 cm3 Endometrium Thickness: 0.5 cm Normal sonographic appearance of the uterus. The right ovary measurements and an estimated volume are: Right Ovary Length: 2.3 cm Right Ovary Width: 1.5 cm Right Ovary Height: 1.5 cm Right Ovary Volume: 2.8 cm3 The left ovary measurements and an estimated volume are: Left Ovary Length: 2.2 cm Left Ovary Width: 1.9 cm Left Ovary Height: 1.2 cm Left Ovary Volume: 2.6 cm3 Normal sonographic appearance of the ovaries. The 1.3 cm right ovarian cyst is most compatible with a dominant follicle. Blood flow is identified to both ovaries. No adnexal mass identified. No free fluid identified within the pelvis. FINAL REPORT Dictated: 05/14/2020 9:35 am Pawel Yusuf DO Signed (Electronic Signature): 05/14/2020 9:35 am Signed by: Pawel Yusuf DO Transcribed by: GABRIELE Technologist: TUCKER Technical Comments Transabdominal Ultrasound Performed Normal [facility] XR Abdomen Series w/ Chest 1 Viewon 05-14-2020 XR Abdomen Series w/ Chest 1 View Exam Date/Time: 05/14/2020 00:11 EDT Reason for Exam: Abdominal pain Report IMPRESSION: NO RADIOGRAPHIC EVIDENCE OF ACUTE INTRATHORACIC PROCESS. NONOBSTRUCTIVE BOWEL GAS PATTERN. EXAM: Acute abdominal series HISTORY: Abdominal pain. Nausea, vomiting, diarrhea. COMPARISON: Portable chest radiograph from 10/18/2009 TECHNIQUE: Frontal view of the chest and supine and upright views of the abdomen were performed. FINDINGS: The cardiomediastinal silhouette is within normal limits. No pneumothorax, pleural effusion, or consolidation. Bones of the thorax appear intact. Nonobstructive bowel gas pattern. No evidence of free air. No pathologic calcifications. Bones of the abdomen and pelvis appear intact. FINAL REPORT Dictated: 05/14/2020 9:24 am Pawel Yusuf DO Signed (Electronic Signature): 05/14/2020 9:24 am Signed by: Pawel Yusuf DO Transcribed by: GABRIELE Technologist: TERESA Normal [facility] eGFRon 05-14-2020 GFR/1.73 sq M.predicted among blacks MDRD (S/P/Bld) [Vol rate/Area] mL/min/{1.73_m2} Normal >=59 [facility] Comment on above: Order Comment: Order added by Discern Expert. Result Comment: eGFR is race adjusted. AA=. Performed By: #### 2 375489, 19702136, 3387314, 7387493, 3882468, 5740015, 4869732 ####[facility] [address] [place] [address] GFR/1.73 sq M.predicted among non-blacks MDRD (S/P/Bld) [Vol rate/Area] mL/min/{1.73_m2} Normal >=59 [facility] Comment on above: Order Comment: Order added by Discern Expert. Result Comment: Mold Cleaner pérez kidney disease could be indicated at eGFR's of less than 60 mL/min/1.73m2. Kidney failure is indicated at less than 15 mL/min/1.73m2. Performed By: #### 2 774489, 85229900, 1348946, 9430495, 9384525, 5485914, 4822333 ####[facility] [address] [place] [address] Consent for Treatmenton Consent for Treatment [id number] 00 [id number] #[id number] Normal [facility] Social History Date Type Detail Facility Start: 01-03-2023 Tobacco smoking status NVIS Never smoked tobacco (finding) [facility] Start: 01-05-2022 End: 08-02-2022 Tobacco smoking status NVIS Smoker (finding) [facility] Start: 1990 Sex Assigned At Female F [facility] Sex Assigned At Sex Assigned At Bir th Wharton Regaalo Other Vital Signs Date Time Vital Sign Value Performing Clinician Facility 04-07-2023 14:45-0400 Body height 160.02 cm Dutch Mendez Other [employer] Other 04-07-2023 14:45-0400 Body mass index (BMI) [Ratio] 21.25 kg/m2 Dutch Mendez Other [employer] Other 04-07-2023 14:45-0400 Body temperature 98 [degF] Dutch Mendez Other [employer] Other 04-07-2023 14:45-0400 Body weight 54.43 kg Dutch Mendez Other [employer] Other 04-07-2023 14:45-0400 Diastolic blood pressure 62 mm[Hg] Dutch Mendez Other [employer] Other 04-07-2023 14:45-0400 Respiratory rate 18 /min Dutch Mendez Other [employer] Other 04-07-2023 14:45-0400 SaO2% (BldA) [Mass fraction] 97 % Dutch Mendez Other [employer] Other 04-07-2023 14:45-0400 Systolic blood pressure 99 mm[Hg] Dutch Mendez Other [employer] Other 01-03-2023 18:30-0400 Diastolic blood pressure 53 mm[Hg] RING BARKER OPERATOR-C Naomy Garcia Work Phone: [facility] 01-03-2023 18:30-0400 Heart rate 51 /min RING BARKER OPERATOR-C Naomy Swansony Work Phone: [facility] 01-03-2023 18:30-0400 Respiratory rate 16 /min RING BARKER OPERATOR-C Naomy Garcia Work Phone: [facility] 01-03-2023 18:30-0400 SaO2% (BldA) [Mass fraction] 100 % RING BARKER OPERATOR-C Naomy Luby Work Phone: 4(509)513-406281 [place] [address] 01-03-2023 18:30-0400 Systolic blood pressure 96 mm[Hg] RING BARKER OPERATOR-C Naomy Luby Work Phone: 1(852)034-111807 [address] 01-03-2023 14:50-0400 Body height 160.02 cm RING BARKER OPERATOR-C Naomy Luby Work Phone: 1(571)159-303657 [place] [address] 01-03-2023 14:50-0400 Body temperature 98.1 [degF] RING BARKER OPERATOR-C Naomy Luby Work Phone: 2(168)504-186057 [place] [address] 01-03-2023 14:50-0400 Body weight 58.65 kg RING BARKER OPERATOR-C Naomy Luby Work Phone: 7(478)553-332557 [place] [address] 08-02-2022 20:04-0400 Diastolic blood pressure 51 mm[Hg] RING BARKER OPERATOR-C Naomy Luby Work Phone: 0(309)788-110157 [place] [address] 08-02-2022 20:04-0400 Heart rate 81 /min RING BARKER OPERATOR-C Naomy Luby Work Phone: 4(868)014-875757 [place] [address] 08-02-2022 20:04-0400 Respiratory rate 16 /min RING BARKER OPERATOR-C Naomy Luby Work Phone: 9(040)374-300657 [place] [address] 08-02-2022 20:04-0400 SaO2% (BldA) [Mass fraction] 100 % RING BARKER OPERATOR-C Naomy Luby Work Phone: 3(028)699-671357 [place] [address] 08-02-2022 20:04-0400 Systolic blood pressure 104 mm[Hg] RING BARKER OPERATOR-C Naomy Luby Work Phone: 3(906)952-172557 [place] [address] 08-02-2022 17:33-0400 Body height 160.02 cm RING BARKER OPERATOR-C Naomy Luby Work Phone: 0(390)998-661281 [place] [address] 08-02-2022 17:33-0400 Body temperature 98.8 [degF] RING BARKER OPERATOR-C Naomy Luby Work Phone: 8(333)087-513481 [place] [address] 08-02-2022 17:33-0400 Body weight 59.4 kg CAIT-Lauren Moralez Skyjuanito Work Phone: [facility] Evaluation note 04-07-2023 Note Date & Type Note Facility 04-07-2023 Evaluation note Encounter Date Diagnosis Assessment Notes Apr, Non-recurrent acute suppurative otitis media of right ear without spontaneous rupture of tympanic membrane (ICD-10 - H66.001) Will order toradol injection in the clinic for her pain. Ear infections are often a secondary infection caused from an URI, the flu or allergies. Take medication as directed. Complete all doses, even if you feel better. Tylenol or ibuprofen can help with pain. Warm pack to area for comfort helps as well. Follow up with primary care provider if no improvement of symptoms. Apr, Acute otitis externa of right ear, unspecified type (ICD-10 - H60.501) [employer] Other Clinical Note 01-17-2023 Note Date & Type Note Facility 01-17-2023 Note OPERATIVE NOTE OPERATION DATE: 01/17/2023 PROCEDURE: Suction D AND C. PREOPERATIVE DIAGNOSIS: Missed . POSTOPERATIVE DIAGNOSIS: Missed . ANESTHESIA: General. SURGEON: Dominic Hester BLOOD LOSS: 50 mL. URINE OUTPUT: Yellow and clear. FINDINGS: Products of conception. SPECIMEN: Products of conception. PROCEDURE: The patient was taken back to the OR where she was given general anesthesia without difficulty. She was then placed in dorsal lithotomy position, prepped and draped in the normal sterile fashion. A weighted speculum was placed in the patient's vagina and the anterior lip of the cervix was identified and grasped with a single-tooth tenaculum. The patient was then gently dilated using Hegar dilators after we had sounded roughly to 8 cm. The suction curette was then tested. The suction curette was then placed in the patient's uterus and products of conception were removed using an 8-Turkish suction curette. Excellent hemostasis was noted. The patient tolerated the procedure well. Sponge, lap, and needle counts were correct x 2. All instruments were then removed from the patient's vagina. The patient was taken to the Recovery Room in stable condition. ?? [facility] [place] [facility] Clinical Note 07-29-2022 Note Date & Type Note Facility 07-29-2022 Note OPERATIVE NOTE OPERATION DATE: 07/29/2022 PROCEDURE: Diagnostic laparoscopy. PREOPERATIVE DIAGNOSIS: Pelvic pain, dyspareunia, dysmenorrhea. POSTOPERATIVE DIAGNOSIS: Pelvic pain, dyspareunia, dysmenorrhea including significant endometriosis of the posterior cul-de-sac, as well as significant adhesions of the uterus to the anterior abdominal wall all the way to the fundal region. ANESTHESIA: General. SURGEON: Dominic Hester D.O. BAGGING SALVAGER: ADAN Flores URINE OUTPUT: Yellow and clear. BLOOD LOSS: 5 mL. FINDINGS: Normal appearing ovaries and tubes, significant adhesions of the uterus all the way to the fundal region to the anterior abdominal wall, as well as significant endometriosis in the posterior cul-de-sac. SPECIMEN: None. PROCEDURE: The patient was taken back to the Operating Room where she was placed in dorsal lithotomy position after given general anesthesia. The patient was prepped and draped in normal sterile fashion. A sponge stick was placed into the patient's vagina. Attention was turned to the patient's abdomen, where a small umbilical incision was made. The fascia was tented using Ramo clamps and the fascia was entered sharply. Confirmation of intra-abdominal placement of the 10 mm port was confirmed under direct visualization using a laparoscope. The patient's abdomen was then insufflated using CO2 gas with approximately 4 liters. A second port was placed left laterally, this was done under direct visualization with a 5 mm port. Survey of the patient's abdomen demonstrated normal liver and gallbladder. Survey of the patient's pelvic anatomy demonstrated normal appearing ovaries and tubes as well as normal appearing uterus. No endometrial implants could be noted, no evidence of any pelvic disease was seen, normal appearing pelvic cavity. All instruments were removed from the patient's abdomen. The patient's abdomen was desufflated of CO2 gas. The patient tolerated the procedure well. Sponge stick was removed from the patient's vagina. The patient's infraumbilical fascia was closed using #0 Vicryl on a GI needle. The patient's skin was closed laterally and infraumbilically using 4-0 Vicryl. The patient tolerated the procedure well. Sponge, lap and needle counts were correct x 2. The patient was taken to Recovery Room in stable condition. [facility] [place] [facility] Clinical Note 05-16-2020 Note Date & Type Note Facility 05-16-2020 Note Microbiology PROCEDURE: Cervical Culture [R1] SOURCE: Cerv BODY SITE: COLLECTED DATE/TIME: 05/14/2020 01:33 EDT RECEIVED DATE/TIME: 05/14/2020 01:50 EDT START DATE/TIME: 05/14/2020 01:50 EDT FREE TEXT SOURCE: Zurdo ESCALANTE, Lucio Renner MD, Lucio FINAL REPORTS Final Report [] Verified Date/Time: 05/16/2020 15:49 EDT 2+ Gardnerella vaginalis Presumptive 1+ Normal vaginal shea isolated STAINS Wet Prep Report [] Verified Date/Time: 05/14/2020 03:09 EDT No Trichomonas vaginalis present No clue cells present No yeast seen Performing Locations R1: This test was performed at: [facility], [address] [place] [address], [phone]- , , [facility] Comment on above: Performed By: #### 1 [id number] ####[facility] [address] [place] [address] Clinical Note 05-14-2020 Note Date & Type Note Facility 05-14-2020 Note Call received from u /s, bladder not full. Conway catheter education provided to patient, agrees to insertion at this time. [facility] Evaluation note Note Date & Type Note Facility Evaluation note No assessment information availa [facility] Work Phone: Hospital Discharge instructions Note Date & Type Note Facility Hospital Discharge instructions Additional Instructions Keep that area clean and dry Avoid putting any adhesives to area affected Take antibiotic as instructed until gone Clean with 9 deodorized soap Follow with your surgeon on Friday Return here if any problems persist or worsen including fever, chills or any other concerns [facility] Work Phone: Hospital Discharge instructions Note Date & Type Note Facility Hospital Discharge instructions Additional Instructions It is important you follow-up with your BRIDGE WORKER APPRENTICE call for appointment. Please return here if you develop any fevers, chills, shortness of breath, numbness, tingling, unilateral weakness or any other concerns [facility] Work Phone: Summary Purpose Family History No Family History Records FoundNo Family History Records FoundNo Family History Records FoundNo Family History Records Found Advance Directives Advance Directive Response Recorded Date/ Time Advance Directives No June 1:52pm Chief Complaint and Reason for Visit Chief Complaint R10.2 Chief Complaint R10.2 Surgical site issues Chief Complaint abd pains Chief Complaint abd pains R10.30 R10.2 Additional Source Comments INFORMATION SOURCE (unrecogn ized section and content) DATE CREATED AUTHOR 04/20/2021 [facility] DATE CREATED AUTHOR AUTHOR'S ORGANIZ ATION 01/23/2023 [facility] DATE CREATED AUTHOR AUTHOR'S ORGANIZ ATION 02/10/2024 [facility] EPIC DATE CREATED AUTHOR AUTHOR'S ORGANIZ ATION 02/10/2024 [facility] Care Teams (unrecognized sec tion and content) Team Status: Inactive Member Role Status Dates Naomy Garcia RING BARKER OPERATOR-C Primary Care Provider Active Dominic Hester Attending Provider Active Team Status: Active Member Role Status Dates Naomy Garcia RING BARKER OPERATOR-C Primary Care Provider Active Team Status: Inactive Member Role Status Dates Naomy Garcia RING BARKER OPERATOR-C Primary Care Provider Active Monika Camarillo APRN Emergency Provider Active Team Status: Inactive Member Role Status Dates Naomy Garcia RING BARKER OPERATOR-C Primary Care Provider Active Sylvia Romero PA-C Attending Provider Active Team Status: Inactive Member Role Status Dates Naomy Garcia , RING BARKER OPERATOR-C Primary Care Provider Active S tart: February 09, 2024 End: February 09, 2024 Dominic Hester Attending Provider Active Start: Stephanie solomon 2023 End: February 09, 2024 Goals (unrecognized section and content) Goals may be documented in a n alternate sectionGoals may be documented in an alternate sectionGoals may be documented in an alternate sectionGoals may be documented in an alternate sectionNo InformationGoals may be documented in an alternate section REASON FOR VISIT (unrecogniz ed section and content) TOOTHACHE FOR RECORDS PERTAINING TO PATIENTS WHO ARE OR HAVE BEEN ENROLLED IN A CHEMICAL DEPENDENCY/SUBSTANCEABUSE PROGRAM, SOME INFORMATION MAY BE OMITTED. This clinical summary was aggregated from multiple sources. Caution should be exercised in using it in the provision of clinical care. This summary normalizes information from multiple sources, and as a consequence, information in this document may materially change the coding, format and clinical context of patient data. In addition, data may be omitted in some cases. CLINICAL DECISIONS SHOULD BE BASED ON THE PRIMARY CLINICAL RECORDS. [facility] [employer] [facility]. provides no warranty or guarantee of the accuracy or completeness of information in this document.
[2024-03-05] MEDS: LACTATED RINGER'S SOLUTION 1,000 ML 50 ML IV (09:43)
[2024-03-05 09:44] LABS: HCG Quantitative <1 mIU/mL
[2024-03-05] MEDS: SCOPOLAMINE 1 MG/3 DAYS TRANSDERM PATCH 1 PATCH TD (10:17)
[2024-03-05] MEDS: FAMOTIDINE/PF 20 MG/2 ML VIAL IV (10:17)
--- NOTE | 2024-03-05 11:34 | PM.ONB ---
Brief Operative Note Date of procedure: 03/05/24 Pre-op diagnosis general: pelvic pain Post-op diagnosis: other (posterior culdesac endometrial implants) Procedure: NAME OF PROCEDURE: [diagnostic laparoscopy ] PROCEDURE: The patient was taken back to the Operating Room where she was placed in dorsal lithotomy position after given general anesthesia. The patient was prepped and draped in normal sterile fashion. A sponge stick was placed into the patient's vagina. Attention was turned to the patient's abdomen, where a small umbilical incision was made. The fascia was tented using Ramo clamps and the fascia was entered sharply. Confirmation of intraabdominal placement of the 10 mm port was confirmed under direct visualization using a laparoscope. The patient's abdomen was then insufflated using CO2 gas with approximately 4 liters. A second port was placed left laterally, this was done under direct visualization with a 5 mm port. Survey of the patient's abdomen demonstrated normal liver and gallbladder. Survey of the patient's pelvic anatomy demonstrated normal appearing rt and lt ovary and tubes as well as normal appearing uterus except for adhesion to anterior abdominal wall. posterior culdesac endometrial implants could be noted, no evidence of any pelvic disease was seen, normal appearing pelvic cavity. All instruments were removed from the patient's abdomen. The patient's abdomen was deinsufflated of CO2 gas. The patient tolerated the procedure well. Sponge stick was removed from the patient's vagina. The patient's infraumbilical fascia was closed using #0 Vicryl on a GI needle. The patient's skin was closed laterally and infraumbilically using 4-0 Vicryl. The patient tolerated the procedure well. Sponge, lap and needle counts were correct x 2. The patient was taken to Recovery Room in stable condition. Anesthesia: GETA Surgeon: Dominic Hester Billing And Quality Technician: Kaity Glaser Estimated blood loss (mL): 5 Pathology: none sent Condition: stable Disposition: PACU Urinary Catheter Management Urinary Catheter Management Urethral: Cath placed during this visit: no
[2024-03-05] MEDS: LACTATED RINGER'S SOLUTION 1,000 ML 150 ML IV (12:10)
[2024-03-05] MEDS: HYDROCODONE/ACET 5-325 MG TABLET 1 TAB PO (12:42)
--- NOTE | 2024-03-05 12:48 | PC.NURSE ---
Medicated with oral pain medication as ordered
--- NOTE | 2024-03-05 13:24 | PC.NURSE ---
Up to bathroom and voids clear yellow without difficulty; does not rate pain but states it's it's tolerable and wants to go home; peripad dry. STATES THAT WITH PREVIOUS SURGERY HAD REACTION TO STERISTRIPS WITH BLISTERING; THIS NOT LISTED AN ALLERGY; PT STATES SHE FORGOT TO MENTION THIS. iNSTRUCTED TO WATCH SITES CAREFULLY AND WITH ANY SYMPTOMS; CALL DR. HANSEN BEFORE REMVOING; VERBALIZED UNDERSTANDING.
== END 2024-03-05 13:15 | disposition home or self-care (01) ==
PROVIDERS: Visit Provider Obstetrics & Gynecology
PROC: (CPT 840; principal; 2024-03-05 09:50)
DX: R10.2 Pelvic and perineal pain (principal); K66.0 Peritoneal adhesions (postprocedural) (postinfection)
CPT/HCPCS: 49320; 36415; 84702; 85025; J1094; J2704

== ENCOUNTER 2024-03-08 13:25 | Emergency (ER) | payer OTHER, SELFPAY ==
[2024-03-08 13:35] VITALS: BP 113/49; PULSE 69; TEMP 37.1; O2SAT 99; BMI 21.3
== END 2024-03-08 15:40 | disposition left against medical advice (07) ==
PROVIDERS: Emergency Provider Emergency Medicine Emergency Medical Services
DX: Z53.21 Procedure and treatment not carried out due to patient leaving prior to being seen by health care provider (principal)

== ENCOUNTER 2024-08-23 13:53 | Outpatient (OUT) | payer OTHER, SELFPAY ==
--- OUTSIDE RECORDS SUMMARY | 2024-08-23 14:13 | XMS_ITS | CCD ---
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 [facility] Comment on above: Performed By: #### B MP, CBC, LIPASE, HEPATIC #### [facility] [address] [place] [address] Potassium [Moles/volume] in Serum or PlasmaOrdered By: PROVIDER TEMP on 06-17-2024 Potassium [Moles/Vol] 3.6 mmol/L Normal 3.5-5.1 [facility] Comment on above: Performed By: #### B MP, CBC, LIPASE, HEPATIC #### [address] Protein Test strip (U) [Mass /Vol]Ordered By: PROVIDER TEMP on 06-17-2024 Protein (U) [Mass/Vol] Negative Negative [facility] Protein [Mass/volume] in Ser um or PlasmaOrdered By: PROVIDER TEMP on 06-17-2024 Protein [Mass/Vol] 7.0 g/dL Normal 6.4-8.[address] [facility] Comment on above: Performed By: #### B MP, CBC, LIPASE, HEPATIC #### [address] Serum globulin measurement b y calculation (mass/volume)Ordered By: PROVIDER TEMP on 06-17-2024 Globulin (S) [Mass/Vol] 2.5 g/dL Normal F [facility] Comment on above: Performed By: #### B MP, CBC, LIPASE, HEPATIC #### [address] Serum or plasma albumin/glob ulin mass ratioOrdered By: PROVIDER TEMP on 06-17-2024 Albumin/Globulin [Mass ratio] 1.8 {ratio} Normal [facility] Comment on above: Performed By: #### B MP, CBC, LIPASE, HEPATIC #### [address] Serum or plasma anion gap de terminationOrdered By: PROVIDER TEMP on 06-17-2024 Anion gap [Moles/Vol] 6.6 mmol/L Normal 6.0-15.0 [facility] Comment on above: Performed By: #### B MP, CBC, LIPASE, HEPATIC #### [address] Serum or plasma non-glucuron idated bilirubin measurement (mass/volume)Ordered By: PROVIDER TEMP on 06-17-2024 Bilirubin.indirect [Mass/Vol] 0.6 mg/dL [facility] Sodium [Moles/volume] in Ser um or PlasmaOrdered By: PROVIDER TEMP on 06-17-2024 Sodium [Moles/Vol] 136 mmol/L Normal 136-[address] [facility] Comment on above: Performed By: #### B MP, CBC, LIPASE, HEPATIC #### [address] Specific gravity Test strip (U) [Rel density]Ordered By: PROVIDER TEMP on 06-17-2024 Specific gravity (U) [Rel density] 1.018 1.001-1.030 [facility] Urea nitrogen [Mass/volume] in Serum or PlasmaOrdered By: PROVIDER TEMP on 06-17-2024 Urea nitrogen [Mass/Vol] 9 mg/dL Normal 7-25 [facility] Comment on above: Performed By: #### B MP, CBC, LIPASE, HEPATIC #### [facility] [address] Urinalysison 06-17-2024 Bilirubin,Urine Negative Normal Negative [facility] Comment on above: Order Comment: Name Collection Type:: Clean-Voided Midstream Performed By: #### U HCG, UA #### [address] Glucose Ql (U) Normal Normal Normal [facility] Comment on above: Order Comment: Name Collection Type:: Clean-Voided Midstream Performed By: #### U HCG, UA #### [address] Nitrite,Urine Negative Normal Negative [facility] Comment on above: Order Comment: Name Collection Type:: Clean-Voided Midstream Performed By: #### U HCG, UA #### [address] Occult Blood,Urine Negative Normal Negative [facility] Comment on above: Order Comment: Name Collection Type:: Clean-Voided Midstream Performed By: #### U HCG, UA #### [place] [address] [place] Protein,Urine Negative Normal Negative [facility] Comment on above: Order Comment: Name Collection Type:: Clean-Voided Midstream Performed By: #### U HCG, UA #### [place] [address] [place] Specificy [place],Urine 1.018 Normal 1.001-1.030 [facility] Comment on above: Order Comment: Name Collection Type:: Clean-Voided Midstream Performed By: #### U HCG, UA #### [address] Urobilinogen,Urine Normal Normal Normal [facility] Comment on above: Order Comment: Name Collection Type:: Clean-Voided Midstream Performed By: #### U HCG, UA #### [facility] [address] [place] [id number] [place] Urine appearanceOrdered By: PROVIDER TEMP on 06-17-2024 Appearance (U) Clear Normal Clear [facility] Comment on above: Order Comment: Name Collection Type:: Clean-Voided Midstream Performed By: #### U HCG, UA #### [facility] [address] [place] [id number] [facility] Urobilinogen Test strip (U) [Mass/Vol]Ordered By: PROVIDER TEMP on 06-17-2024 Urobilinogen (U) [Mass/Vol] Normal mg/dL Normal [facility] pH of Urine by Test stripOrd ered By: PROVIDER TEMP on 06-17-2024 pH (U) 6.0 [pH] Normal 5.0-9.0 [facility] Comment on above: Order Comment: Name Collection Type:: Clean-Voided Midstream Performed By: #### U HCG, UA #### [facility] [address] [place], [place] [id number] [facility] Choriogonadotropin.beta subu nit [Units/volume] in Serum or PlasmaOrdered By: Dominic Hester on 04-24-2024 HCG.beta subunit Qn m[IU]/mL [facility] Comment on above: Approximate Approxim ate hCG Gestational Age Range (mIU/ml) (weeks)0.2-1 5-50 1-2 50-500 2-3 100-5,000 3-4 500-10,000 4-5 1,000-50,000 5-6 10,000-100,000 6-8 15,000-200,000 8-12 10,000-100,000 HCG,Quantitativeon 4 HCG,Quantitative < 0.60 Normal [facility] Comment on above: Result Comment: Appr oximate Approximate hCG Gestational Age Range (mIU/ml) (weeks) 0.2-1 5-50 1-2 50-500 2-3 100-5,000 3-4 500-10,000 4-5 1,000-50,000 5-6 10,000-100,000 6-8 15,000-200,000 8-12 10,000-100,000 PERFORMED BY: [place] [address] PATHOLOGIST RIB PULLER KHANG WEEKS M.D. Performed By: #### H CGQNT #### [address] US transvaginalon 02-09-2024 US transvaginal [facility] [place] [address] [place] [address] Ultrasound Report Signed Patient: Breana John MR#: [id number] : 1990 Acct:[id number] Age/Sex: 33 / F ADM Date: 02/09/24 Loc: Room: Type: [facility] Attending Dr: Dominic Hester Ordering Provider: Dominic Hester Date of Service: 02/09/24 US/US transvaginal: PELVIC PAIN ([id number]) US/US pelvic complete: PELVIC PAIN Copies to: [...] Christine Mckeon M.D.02/09/2024 1:50 PM Dictation Location: [place] [address] Tech: Dipika Payne Transcribed By: SHANE 02/09/24 1350 Dictated By: Christine Mckeon MD 02/09/24 1342 Signed By: 02/09/24 1350 Normal [facility] Basophils Auto (Bld) [#/Vol] Ordered By: Sylvia Romero on 03-28-2023 Basophils (Bld) [#/Vol] 0.0 10*3/uL 0.0-0.2 [facility] Basophils/100 WBC Auto (Bld) Ordered By: Sylvia Romero on 03-28-2023 Basophils/100 WBC (Bld) 0.8 % . F [facility] Choriogonadotropin.beta subu nit [Units/volume] in Serum or PlasmaOrdered By: Sylvia Romero on 03-28-2023 HCG.beta subunit Qn m[IU]/mL [facility] Comment on above: Approximate Approxim ate hCG Gestational Age Range (mIU/ml) (weeks)0.2-1 5-50 1-2 50-500 2-3 100-5,000 3-4 500-10,000 4-5 1,000-50,000 5-6 10,000-100,000 6-8 15,000-200,000 8-12 10,000-100,000 Eosinophils Auto (Bld) [#/Vo l]Ordered By: Sylvia Romero on 03-28-2023 Eosinophils (Bld) [#/Vol] 0.2 10*3/uL 0.0-0.45 [facility] Eosinophils/100 WBC Auto (Bl d)Ordered By: Sylvia Romero on 03-28-2023 Eosinophils/100 WBC (Bld) 4.7 % . [facility] Erythrocyte distribution wid th Auto (RBC) [Ratio]Ordered By: Sylvia Romero on 03-28-2023 Erythrocyte distribution width (RBC) [Ratio] 13.0 % 11.9-15.3 [facility] Hematocrit Auto (Bld) [Volum e fraction]Ordered By: Sylvia Romero on 03-28-2023 Hematocrit (Bld) [Volume fraction] 38.0 % 34.0-46.4 [facility] Hemoglobin [Mass/volume] in BloodOrdered By: Sylvia Romero on 03-28-2023 Hemoglobin (Bld) [Mass/Vol] 12.9 g/dL 11.8-15.4 [facility] Leukocytes [#/volume] correc ira for nucleated erythrocytes in Blood by Automated counOrdered By: Sylvia Romero on 03-28-2023 WBC corrected for nucl RBC Auto (Bld) [#/Vol] 4.1 10*3/uL 3.8-11.6 [facility] Lymphocytes Auto (Bld) [#/Vo l]Ordered By: Sylvia Romero on 03-28-2023 Lymphocytes (Bld) [#/Vol] 1.0 10*3/uL 1.00-4.8 [facility] Lymphocytes/100 WBC Auto (Bl d)Ordered By: Sylvia Romero on 03-28-2023 Lymphocytes/100 WBC (Bld) 23.9 % . [facility] MCH Auto (RBC) [Entitic mass ]Ordered By: Sylvia Romero on 03-28-2023 MCH (RBC) [Entitic mass] 31.3 pg 24.7-34.3 [facility] MCHC Auto (RBC) [Mass/Vol]Or dered By: Sylvia Romero on 03-28-2023 MCHC (RBC) [Mass/Vol] 33.9 g/dL 32.0-35.0 [facility] MCV Auto (RBC) [Entitic vol] Ordered By: Sylvia Romero on 03-28-2023 MCV (RBC) [Entitic vol] 92.3 fL 80-[address] [facility] Monocytes Auto (Bld) [#/Vol] Ordered By: Sylvia Romero on 03-28-2023 Monocytes (Bld) [#/Vol] 0.3 10*3/uL 0.0-0.8 [facility] Monocytes/100 WBC Auto (Bld) Ordered By: Sylvia Romero on 03-28-2023 Monocytes/100 WBC (Bld) 7.5 % . F [facility] Neutrophils Auto (Bld) [#/Vo l]Ordered By: Sylvia Romero on 03-28-2023 Neutrophils (Bld) [#/Vol] 2.6 10*3/uL 1.8-7.7 [facility] Neutrophils/100 WBC Auto (Bl d)Ordered By: Sylvia Romero on 03-28-2023 Neutrophils/100 WBC (Bld) 63.1 % . [facility] Nucleated erythrocytes [Pres ence] in Blood by Automated countOrdered By: Sylvia Romero on 03-28-2023 Nucleated RBC Auto Ql (Bld) 0.1 /100{WBC} 0-0.5 [facility] Platelet mean volume Auto (B ld) [Entitic vol]Ordered By: Sylvia Romero on 03-28-2023 Platelet mean volume (Bld) [Entitic vol] 8.8 fL 6.3-10.7 [facility] Platelets Auto (Bld) [#/Vol] Ordered By: Sylvia Romero on 03-28-2023 Platelets (Bld) [#/Vol] 196 10*3/uL 150-450 [facility] Prolactin [Mass/volume] in S mehdi or PlasmaOrdered By: Sylvia Romero on 03-28-2023 Prolactin [Mass/Vol] 3.20 ng/mL 3.34-26.72 [facility] RBC Auto (Bld) [#/Vol]Ordere d By: Sylvia Romero on 03-28-2023 RBC (Bld) [#/Vol] 4.12 10*6/uL 3.60-5.00 [facility] Thyrotropin [Units/volume] i n Serum or PlasmaOrdered By: Sylvia Romero on 03-28-2023 TSH Qn 1.31 m[IU]/L 0.45-5.33 [facility] WBC Auto (Bld) [#/Vol]Ordere d By: Sylvia Romero on 03-28-2023 WBC (Bld) [#/Vol] 4.1 10*3/uL 3.8-11.[address] [facility] US PREG TVon 01-20-2023 US PREG TV [...] by: KENNEDY LEHMAN Date: 2023-01-19 23:22 Normal [place] CBC AUTO DIFFon 01-17-2023 BASO # 0.0 103/ul Normal 0.0-0.1 [place] Comment on above: Performed By: #### C ANJU PULIDO AMY #### [facility] [address] [place] [address] [address] Lester Yen Basophils/100 WBC (Bld) 1.1 % Normal 0.2-2.0 [facility] Comment on above: Performed By: #### C ANJU PULIDO AMY #### [facility] [address] [place] [address] [address] Lester Yen EO # 0.2 103/ul Normal 0.0-0.7 [place] Comment on above: Performed By: #### C BECKI PULIDOA, SYLVIA #### [facility] [address] [place] [address] Dr. Lester Yen Eosinophils/100 WBC (Bld) 5.4 % Normal 0.9-7.0 [place] Comment on above: Performed By: #### C BECKI PULIDOA, SYLVIA #### [facility] [address] [place] [address] Dr. Lester Yen Erythrocyte distribution width (RBC) [Ratio] 12.4 % Normal 11.0-15.0 [place] Comment on above: Performed By: #### C BECKI PULIDOA, SYLVIA #### [facility] [address] [place] [address] Dr. Lester Yen Hematocrit (Bld) [Volume fraction] 37.7 % Normal 36.0-48.0 [place] Comment on above: Performed By: #### C BECKI PULIDOA, SYLVIA #### [facility] [address] [place] [address] Dr. Lester Yen Hemoglobin (Bld) [Mass/Vol] 13.2 g/dL Normal 12.0-16.0 [place] Comment on above: Performed By: #### C ANJU PULIDO, SYLVIA #### [facility] [address] [place] [address] Dr. Lester Yen IG # 0.01 10e3/ul Normal 0.00-0.03 [place] Comment on above: Performed By: #### C BECKI PULIDOA, SYLVIA #### [facility] [address] [place] [address] Dr. Lester Yen IG % 0.3 % Normal 0.0-0.[address] [facility] Comment on above: Performed By: #### C ANJU PULIDO, SYLVIA #### [facility] [address] [place] [address] Dr. Lester Yen LYMPH # 1.1 103/ul Critically low 1.2-3.8 [facility] Comment on above: Performed By: #### C BECKI PULIDOA, SYLVIA #### [facility] [address] [place] [address] Dr. Lester Yen Lymphocytes/100 WBC (Bld) 28.3 % Normal 20.5-60.0 [place] Comment on above: Performed By: #### C MP LIPA, SYLVIA #### [facility] [address] [place] [address] Dr. Lester Yen MANUAL DIFF REQ NO Normal [facility] Comment on above: Performed By: #### C MP LIPA, SYLVIA #### [facility] [address] [place] [address] Dr. Lester Yen MCH (RBC) [Entitic mass] 31.5 pg Normal 26.7-34.0 [place] Comment on above: Performed By: #### C MP LIPA, SYLVIA #### [facility] [address] [place] [address] Dr. Lester Yen MCHC (RBC) [Mass/Vol] 35.0 g/dL Normal 29.9-35.2 [place] Comment on above: Performed By: #### C MP, LIPA, SYLVIA #### [facility] [address] [place] [address] Dr. Lester Yen MCV (RBC) [Entitic vol] 90.0 fL Normal 81.0-99.0 [facility] Comment on above: Performed By: #### C MP LIPA, SYLVIA #### [facility] [address] [place] [address] Dr. Lester Yen MONO # 0.3 103/ul Normal 0.3-0.8 [place] Comment on above: Performed By: #### C MP, LIPA, SYLVIA #### [facility] [address] [place] [address] Dr. Lester Yen Monocytes/100 WBC (Bld) 9.2 % Normal 1.7-12.0 [facility] Comment on above: Performed By: #### C MP, LIPA, SYLVIA #### [facility] [address] [place] [address] Dr. Lester Yen NEUT # 2.1 103/ul Normal 1.4-6.5 [place] Comment on above: Performed By: #### C ANJU PULIDO, SYLVIA #### [facility] [address] [address] [address] Lester Yen Neutrophils/100 WBC (Bld) 55.7 % Normal 43.0-75.0 [place] Comment on above: Performed By: #### C BECKI PULIDOA, SYLVIA #### [facility] [address] [place] [address] Dr. Lester Yen Platelet mean volume (Bld) [Entitic vol] 9.2 fL Critically low 9.5-13.5 [place] Comment on above: Performed By: #### C ANJU PULIDO, SYLVIA #### [facility] [address] [place] [address] Dr. Lester Yen PLT 209 103/ul Normal 150-[address] [facility] Comment on above: Performed By: #### C ANJU PULIDO, SYLVIA #### [facility] [address] [place] [address] Dr. Lester Yen RBC 4.19 106/ul Critically low 4.20-5.40 [facility] Comment on above: Performed By: #### C ANJU PULIDO, SYLVIA #### [facility] [address] [place] [address] Dr. Lester Yen WBC 3.7 103/ul Critically low 4.0-11.0 [facility] Comment on above: Performed By: #### C ANJU PULIDO, SYLVIA #### [facility] [address] [place] [address] Dr. Lester Yen TYPE AND SCREENon 01-17-2023 TYPE AND SCREEN Negative Normal [facility] Comment on above: Performed By: #### C ANJU PULIDO, SYLVIA #### [facility] [address] [place] [address] Dr. Lester Yen Alanine aminotransferase [En zymatic activity/volume] in Serum or PlasmaOrdered By: Monika Camarillo on 01-03-2023 ALT [Catalytic activity/Vol] 13 U/L 7-52 [facility] Albumin [Mass/volume] in Ser um or Plasma by Bromocresol green (BCG) dye binding methoOrdered By: Monika Camarillo on 01-03-2023 Albumin BCG dye [Mass/Vol] 4.7 g/dL 3.5-5.7 [facility] Alkaline phosphatase [Enzyma tic activity/volume] in Serum or PlasmaOrdered By: Monika Camarillo on 01-03-2023 ALP [Catalytic activity/Vol] 47 U/L 34-104 [facility] Aspartate aminotransferase [ Enzymatic activity/volume] in Serum or PlasmaOrdered By: Monika Camarillo on 01-03-2023 AST [Catalytic activity/Vol] 15 U/L 13-39 [facility] Basophils Auto (Bld) [#/Vol] Ordered By: Monika Camarillo on 01-03-2023 Basophils (Bld) [#/Vol] 0.0 10*3/uL 0.0-0.2 [facility] Basophils/100 WBC Auto (Bld) Ordered By: Monika Camarillo on 01-03-2023 Basophils/100 WBC (Bld) 0.3 % . F [facility] Bilirubin Test strip Ql (U)O rdered By: Monika Camarillo on 01-03-2023 Bilirubin Ql (U) Negative Negative [facility] Bilirubin.total [Mass/volume ] in Serum or PlasmaOrdered By: Monika Camarillo on 01-03-2023 Bilirubin [Mass/Vol] 0.8 mg/dL 0.3-1.0 [facility] Calcium [Mass/volume] in Ser um or PlasmaOrdered By: Monika Camarillo on 01-03-2023 Calcium [Mass/Vol] 9.2 mg/dL 8.6-10.[address] [facility] Carbon dioxide, total [Moles /volume] in Serum or PlasmaOrdered By: Monika Camarillo on 01-03-2023 CO2 [Moles/Vol] 23.8 mmol/L 21.0-31.0 [facility] Chloride [Moles/volume] in S mehdi or PlasmaOrdered By: Monika Camarillo on 01-03-2023 Chloride [Moles/Vol] 105 mmol/L 98-107 [facility] Choriogonadotropin.beta subu nit [Units/volume] in Serum or PlasmaOrdered By: Monika Camarillo on 01-03-2023 [place] [address].00 m[IU]/mL [facility] Comment on above: Approximate Approxim ate hCG Gestational Age Range (mIU/ml) (weeks)0.2-1 5-50 1-2 50-500 2-3 100-5,000 3-4 500-10,000 4-5 1,000-50,000 5-6 10,000-100,000 6-8 15,000-200,000 8-12 10,000-100,000 Color Auto (U)Ordered By: Po Camarillo on 01-03-2023 Color (U) Yellow Yellow [facility] Creatinine [Mass/volume] in Serum or PlasmaOrdered By: Monika Camarillo on 01-03-2023 Creatinine [Mass/Vol] 0.71 mg/dL 0.60-1.20 [facility] ER URINE PROFILEon 3 Bilirubin Ql (U) Negative Normal NEGATIVE [facility] Comment on above: Performed By: #### E RUR #### [facility] [address] [place] [address] Dr. Lester Yen Clarity (U) CLEAR Normal CLEAR [place] Comment on above: Performed By: #### E RUR #### [facility] [address] [place] [address] Dr. Lester Yen Color (U) LT. YELLOW Normal YELLOW [facility] Comment on above: Performed By: #### E RUR #### [facility] [address] [place] [address] Dr. Lester LEA A micrscopic examination will be performed if indicated. Normal [facility] Comment on above: Performed By: #### E RUR #### [facility] [address] [place] [address] Dr. Lester Yen Glucose Ql (U) Negative Normal NEGATIVE [facility] Comment on above: Performed By: #### E RUR #### [facility] [address] [place] [address] Dr. Lester Yen Hemoglobin Ql (U) Negative Normal NEGATIVE [facility] Comment on above: Performed By: #### E RUR #### [facility] [address] [place] [address] Dr. Lester Yen Ketones Ql (U) 15 mg/dl Abnormal NEGATIVE [facility] Comment on above: Performed By: #### E RUR #### [facility] [address] [place] [address] Dr. Lester Yen LEUKOCYTES Negative Normal NEGATIVE [place] Comment on above: Performed By: #### E RUR #### [facility] [address] [place] [address] Dr. Lester Yen Nitrite Ql (U) Negative Normal NEGATIVE [facility] Comment on above: Performed By: #### E RUR #### [facility] [address] [place] [address] Dr. Lester Yen pH (U) 6.0 [pH] Normal 5-9 [place] Comment on above: Performed By: #### E RUR #### [facility] [address] [place] [address] Dr. Lester Yen SPEC GRAVITY <=1.005 Abnormal 1.005-<=1.02 5 [place] Comment on above: Performed By: #### E RUR #### [facility] [address] [place] [address] Dr. Lester Yen UA PROTEIN Negative Normal NEGATIVE/ TRACE [facility] Comment on above: Performed By: #### E RUR #### [facility] [address] [place] [address] Dr. Lester Yen UR MICRO IND NOT INDICATED Normal [facility] Comment on above: Performed By: #### E RUR #### [facility] [address] [place] [address] Dr. Lester Yen Urobilinogen Qn (U) 0.2 {Olivier'U}/dL Normal 0.2 - 1. 0 [place] Comment on above: Performed By: #### E RUR #### [facility] [address] [place] [address] Dr. Lester Yen Eosinophils Auto (Bld) [#/Vo l]Ordered By: Monika Camarillo on 01-03-2023 Eosinophils (Bld) [#/Vol] 0.3 10*3/uL 0.0-0.45 [facility] Eosinophils/100 WBC Auto (Bl d)Ordered By: Monika Camarillo on 01-03-2023 Eosinophils/100 WBC (Bld) 5.4 % . [facility] Erythrocyte distribution wid th Auto (RBC) [Ratio]Ordered By: Monika Camarillo on 01-03-2023 Erythrocyte distribution width (RBC) [Ratio] 12.7 % 11.9-15.3 [facility] Globulin Calc (S) [Mass/Vol] Ordered By: Monika Camarillo on 01-03-2023 Globulin (S) [Mass/Vol] 2.1 g/dL F [facility] Glucose [Mass/volume] in Ser um or PlasmaOrdered By: Monika Camarillo on 01-03-2023 Glucose [Mass/Vol] 85 mg/dL 70-[address] [facility] Comment on above: ADA recommended refe rence rangeRandom Glucose Reference Range is dependent on time and content of last meal. Glucose of more than 200 mg/dL in a nonstressed, ambulatory subject supports the diagnosis of Diabetes Mellitus. Hematocrit Auto (Bld) [Volum e fraction]Ordered By: Monika Camarillo on 01-03-2023 Hematocrit (Bld) [Volume fraction] 39.8 % 34.0-46.4 [facility] Hemoglobin [Mass/volume] in BloodOrdered By: Monika Camarillo on 01-03-2023 Hemoglobin (Bld) [Mass/Vol] 13.4 g/dL 11.8-15.4 [facility] Ketones Auto test strip (U) [Mass/Vol]Ordered By: Monika Camarillo on 01-03-2023 Ketones (U) [Mass/Vol] Negative Negative [facility] Leukocytes [#/volume] correc ira for nucleated erythrocytes in Blood by Automated counOrdered By: Monika Camarillo on 01-03-2023 WBC corrected for nucl RBC Auto (Bld) [#/Vol] 5.7 10*3/uL 3.8-11.6 [facility] Lipase [Enzymatic activity/v olume] in Serum or PlasmaOrdered By: Monika Camarillo on 01-03-2023 Lipase [Catalytic activity/Vol] 17.0 U/L 11.0-82.0 [facility] Lymphocytes Auto (Bld) [#/Vo l]Ordered By: Monika Camarillo on 01-03-2023 Lymphocytes (Bld) [#/Vol] 0.9 10*3/uL 1.00-4.8 [facility] Lymphocytes/100 WBC Auto (Bl d)Ordered By: Monika Camarillo on 01-03-2023 Lymphocytes/100 WBC (Bld) 15.2 % . [facility] MCH Auto (RBC) [Entitic mass ]Ordered By: Monika Camarillo on 01-03-2023 MCH (RBC) [Entitic mass] 31.0 pg 24.7-34.3 [facility] MCHC Auto (RBC) [Mass/Vol]Or dered By: Monika Camarillo on 01-03-2023 MCHC (RBC) [Mass/Vol] 33.6 g/dL 32.0-35.0 [facility] MCV Auto (RBC) [Entitic vol] Ordered By: Monika Camarillo on 01-03-2023 MCV (RBC) [Entitic vol] 92.2 fL 80-[address] [facility] Monocyte distribution width [Entitic volume] in Blood by AutomatedOrdered By: Monika Camarillo on 01-03-2023 Monocyte distribution width Auto (Bld) [Entitic vol] 17.53 % 0.00-20.00 [facility] Monocytes Auto (Bld) [#/Vol] Ordered By: Monika Camarillo on 01-03-2023 Monocytes (Bld) [#/Vol] 0.4 10*3/uL 0.0-0.8 [facility] Monocytes/100 WBC Auto (Bld) Ordered By: Monika Camarillo on 01-03-2023 Monocytes/100 WBC (Bld) 6.5 % . F [facility] Neutrophils Auto (Bld) [#/Vo l]Ordered By: Monika Camarillo on 01-03-2023 Neutrophils (Bld) [#/Vol] 4.1 10*3/uL 1.8-7.7 [facility] Neutrophils/100 WBC Auto (Bl d)Ordered By: Monika Camarillo on 01-03-2023 Neutrophils/100 WBC (Bld) 72.6 % . [facility] Nitrite Test strip Ql (U)Ord ered By: Monika Camarillo on 01-03-2023 Nitrite Ql (U) Negative Negative [facility] No Panel InformationOrdered By: Monika Camarillo on 01-03-2023 Estimated GFR (CKD-EPI) > 60.0 mL/Min [facility] Creatinine Clearance (Chem 94.97 [facility] Nucleated erythrocytes [Pres ence] in Blood by Automated countOrdered By: Monika Camarillo on 01-03-2023 Nucleated RBC Auto Ql (Bld) 0.1 /100{WBC} 0-0.5 [facility] Platelet mean volume Auto (B ld) [Entitic vol]Ordered By: Monika Camarillo on 01-03-2023 Platelet mean volume (Bld) [Entitic vol] 7.5 fL 6.3-10.7 [facility] Platelets Auto (Bld) [#/Vol] Ordered By: Monika Camarillo on 01-03-2023 Platelets (Bld) [#/Vol] 187 10*3/uL 150-450 [facility] Potassium [Moles/volume] in Serum or PlasmaOrdered By: Monika Camarillo on 01-03-2023 Potassium [Moles/Vol] 3.7 mmol/L 3.5-5.1 [facility] Protein Auto test strip (U) [Mass/Vol]Ordered By: Monika Camarillo on 01-03-2023 Protein (U) [Mass/Vol] Negative Negative [facility] Protein [Mass/volume] in Ser um or PlasmaOrdered By: Monika Camarillo on 01-03-2023 Protein [Mass/Vol] 6.8 g/dL 6.4-8.[address] [facility] RBC Auto (Bld) [#/Vol]Ordere d By: Monika Camarillo on 01-03-2023 RBC (Bld) [#/Vol] 4.32 10*6/uL 3.60-5.00 [facility] Serum or plasma albumin/glob ulin mass ratioOrdered By: Monika Camarillo on 01-03-2023 Albumin/Globulin [Mass ratio] 2.2 {ratio} [facility] Serum or plasma anion gap de terminationOrdered By: Monika Camarillo on 01-03-2023 Anion gap [Moles/Vol] 10.9 mmol/L 6.0-15.0 [facility] Sodium [Moles/volume] in Ser um or PlasmaOrdered By: Monika Camarillo on 01-03-2023 Sodium [Moles/Vol] 136 mmol/L 136-[address] [facility] Specific gravity Auto test s trip (U) [Rel density]Ordered By: Monika Camarillo on 01-03-2023 Specific gravity (U) [Rel density] 1.005 1.001-1.030 [facility] US PREG TVon 01-03-2023 US PREG TV [...] by: LOPEZ ZARAGOZA Date: 2023-01-03 21:[address] [facility] Urea nitrogen [Mass/volume] in Serum or PlasmaOrdered By: Monika Camarillo on 01-03-2023 Urea nitrogen [Mass/Vol] 9 mg/dL 7-25 [facility] Urine clarity by refractomet ry automatedOrdered By: Monika Camarillo on 01-03-2023 Clarity Refractometry automated (U) Clear Clear [facility] Urine glucose measurement by automated test strip (mass/volume)Ordered By: Monika Camarillo on 01-03-2023 Glucose Auto test strip (U) [Mass/Vol] Normal mg/dL Normal [facility] Urine hemoglobin detection b y automated test stripOrdered By: Monika Camarillo on 01-03-2023 Hemoglobin Auto test strip Ql (U) Negative Negative [facility] Urine leukocyte esterase det ection by automated test stripOrdered By: Monika Camarillo on 01-03-2023 Leukocyte esterase Auto test strip Ql (U) Negative Negative [facility] Urobilinogen Auto test strip (U) [Mass/Vol]Ordered By: Monika Camarillo on 01-03-2023 Urobilinogen (U) [Mass/Vol] Normal mg/dL Normal [facility] WBC Auto (Bld) [#/Vol]Ordere d By: Monika Camarillo on 01-03-2023 WBC (Bld) [#/Vol] 5.7 10*3/uL 3.8-11.[address] [facility] pH Auto test strip (U)Ordere d By: Monika Camarillo on 01-03-2023 pH (U) 6.5 [pH] 5.0-9.0 [facility] US PREG TVon 12-26-2022 US PREG TV [...] KENNEDY LEHMAN Date: 2022-12-26 15:[address] [facility] PREG QUANT HCGon 12-25-2022 HCG QUANT 18644 mIU/mL Normal [facility] Comment on above: Performed By: #### P REGQNT #### [facility] [address] [place], [place] [address] Dr. Lester Yen HCG RANGE SEE BELOW Normal [facility] Comment on above: Result Comment: 5-50 0.2-1 WEEK 50-500 1-2 WEEKS 100-5,000 2-3 WEEKS 500-10,000 3-4 WEEKS 1,000-50,000 4-5 WEEKS 10,000-100,000 5-6 WEEKS 15,000-200,000 6-8 WEEKS 10,000-100,000 2-3 MONTHS Performed By: #### P REGQNT #### [facility] [address] [place], [place] [address] Dr. Lester Yen Albumin [Mass/volume] in Ser um or PlasmaOrdered By: Monika Camarillo on 08-02-2022 Albumin [Mass/Vol] 3.7 g/dL 3.2-5.[address] [facility] Basophils Auto (Bld) [#/Vol] Ordered By: Monika Camarillo on 08-02-2022 Basophils (Bld) [#/Vol] 0.0 10*3/uL 0.0-0.2 [facility] Basophils/100 WBC Auto (Bld) Ordered By: Monika Camarillo on 08-02-2022 Basophils/100 WBC (Bld) 0.8 % . F [facility] Bilirubin Test strip Ql (U)O rdered By: Monika Camarillo on 08-02-2022 Bilirubin Ql (U) Negative Negative [facility] Color Auto (U)Ordered By: Po Camarillo on 08-02-2022 Color (U) Yellow Yellow [facility] Creatinine and Glomerular fi ltration rate.predicted panel (S/P/Bld)Ordered By: Monika Camarillo on 08-02-2022 Creatinine [Mass/Vol] 0.86 mg/dL 0.44-1.03 [facility] Eosinophils Auto (Bld) [#/Vo l]Ordered By: Monika Camarillo on 08-02-2022 Eosinophils (Bld) [#/Vol] 0.4 10*3/uL 0.0-0.45 [facility] Eosinophils/100 WBC Auto (Bl d)Ordered By: Monika Camarillo on 08-02-2022 Eosinophils/100 WBC (Bld) 12.8 % . [facility] Erythrocyte distribution wid th Auto (RBC) [Ratio]Ordered By: Monika Camarillo on 08-02-2022 Erythrocyte distribution width (RBC) [Ratio] 12.7 % 11.9-15.3 [facility] Estimated glomerular filtrat ion rate (GFR) non- AmericanOrdered By: Monika Camarillo on 08-02-2022 GFR/1.73 sq M.predicted among non-blacks MDRD (S/P/Bld) [Vol rate/Area] > 60 mL/Min [facility] Globulin Calc (S) [Mass/Vol] Ordered By: Monika Camarillo on 08-02-2022 Globulin (S) [Mass/Vol] 2.4 g/dL F [facility] HCG ( test) IA.rapi d Ql (U)Ordered By: Monika Camarillo on 08-02-2022 HCG ( test) Ql (U) Negative [facility] Hematocrit Auto (Bld) [Volum e fraction]Ordered By: Monika Camarillo on 08-02-2022 Hematocrit (Bld) [Volume fraction] 38.4 % 34.0-46.4 [facility] Hemoglobin [Mass/volume] in BloodOrdered By: Monika Camarillo on 08-02-2022 Hemoglobin (Bld) [Mass/Vol] 13.1 g/dL 11.8-15.4 [facility] Ketones Auto test strip (U) [Mass/Vol]Ordered By: Monika Camarillo on 08-02-2022 Ketones (U) [Mass/Vol] Negative Negative [facility] - Hematology and Cell countsOrdered By: Monika Camarillo on 08-02-2022 Nucleated RBC/100 WBC (Bld) [Ratio] 0.1 % 0-0.5 [facility] Leukocytes [#/volume] in Blo od by Automated countOrdered By: Monika Camarillo on 08-02-2022 WBC (Bld) [#/Vol] 3.4 10*3/uL 4.5-11.[address] [facility] Lymphocytes Auto (Bld) [#/Vo l]Ordered By: Monika Camarillo on 08-02-2022 Lymphocytes (Bld) [#/Vol] 1.0 10*3/uL 1.00-4.8 [facility] Lymphocytes/100 WBC Auto (Bl d)Ordered By: Monika Camarillo on 08-02-2022 Lymphocytes/100 WBC (Bld) 28.2 % . [facility] MCH Auto (RBC) [Entitic mass ]Ordered By: Monika Camarillo on 08-02-2022 MCH (RBC) [Entitic mass] 31.1 pg 24.7-34.3 [facility] MCHC Auto (RBC) [Mass/Vol]Or dered By: Monika Camarillo on 08-02-2022 MCHC (RBC) [Mass/Vol] 34.1 g/dL 32.0-35.0 [facility] MCV Auto (RBC) [Entitic vol] Ordered By: Monika Camarillo on 08-02-2022 MCV (RBC) [Entitic vol] 91.4 fL 80-[address] [facility] Monocytes Auto (Bld) [#/Vol] Ordered By: Monika Camarillo on 08-02-2022 Monocytes (Bld) [#/Vol] 0.3 10*3/uL 0.0-0.8 [facility] Monocytes/100 WBC Auto (Bld) Ordered By: Monika Camarillo on 08-02-2022 Monocytes/100 WBC (Bld) 7.7 % . F [facility] Neutrophils Auto (Bld) [#/Vo l]Ordered By: Monika Camarillo on 08-02-2022 Neutrophils (Bld) [#/Vol] 1.7 10*3/uL 1.8-7.7 [facility] Neutrophils/100 WBC Auto (Bl d)Ordered By: Monika Camarillo on 08-02-2022 Neutrophils/100 WBC (Bld) 50.5 % . [facility] Nitrite Test strip Ql (U)Ord ered By: Monika Camarillo on 08-02-2022 Nitrite Ql (U) Negative Negative [facility] No Panel InformationOrdered By: Monika Camarillo on 08-02-2022 Estimated GFR () > 60 mL/Min [facility] Comment on above: GFR estimated refere nce range: According to KDOQI guidelines, <60 ml/min/1.73m2 is sufficient to diagnose a patient with chronic kidney disease. Pharmacy Creatinine Clearance (Chem 79.12 [facility] Platelet mean volume Auto (B ld) [Entitic vol]Ordered By: Monika Camarillo on 08-02-2022 Platelet mean volume (Bld) [Entitic vol] 7.8 fL 6.3-10.7 [facility] Platelets Auto (Bld) [#/Vol] Ordered By: Monika Camarillo on 08-02-2022 Platelets (Bld) [#/Vol] 203 10*3/uL 150-450 [facility] Protein Auto test strip (U) [Mass/Vol]Ordered By: Monika Camarillo on 08-02-2022 Protein (U) [Mass/Vol] Negative Negative [facility] Protein [Mass/volume] in Ser um or PlasmaOrdered By: Monika Camarillo on 08-02-2022 Protein [Mass/Vol] 6.1 g/dL 6.1-7.[address] [facility] RBC Auto (Bld) [#/Vol]Ordere d By: Monika Camarillo on 08-02-2022 RBC (Bld) [#/Vol] 4.20 10*6/uL 3.60-5.00 [facility] Serum or plasma alanine gaspar otransferase measurement without P-5'-P (enzymatic activiOrdered By: Monika Camarillo on 08-02-2022 ALT No additional P-5'-P [Catalytic activity/Vol] 13 U/L 10-60 [facility] Serum or plasma albumin/glob ulin mass ratioOrdered By: Monika Camarillo on 08-02-2022 Albumin/Globulin [Mass ratio] 1.5 {ratio} [facility] Serum or plasma alkaline radames sphatase measurement (enzymatic activity/volume)Ordered By: Monika Camarillo on 08-02-2022 ALP [Catalytic activity/Vol] 46 U/L 32-92 [facility] Serum or plasma anion gap de terminationOrdered By: Monika Camarillo on 08-02-2022 Anion gap [Moles/Vol] 11.0 mmol/L 6.0-15.0 [facility] Serum or plasma aspartate am inotransferase measurement (enzymatic activity/volume)Ordered By: Monika Camarillo on 08-02-2022 AST [Catalytic activity/Vol] 16 U/L 10-42 [facility] Serum or plasma calcium unique urement (mass/volume)Ordered By: Monika Camarillo on 08-02-2022 Calcium [Mass/Vol] 9.2 mg/dL 8.2-10.[address] [facility] Serum or plasma chloride debbie surement (moles/volume)Ordered By: Monika Camarillo on 08-02-2022 Chloride [Moles/Vol] 104 mmol/L 95-114 [facility] Serum or plasma glucose unique urement (mass/volume)Ordered By: Monika Camarillo on 08-02-2022 Glucose [Mass/Vol] 82 mg/dL 70-[address] [facility] Comment on above: ADA recommended refe rence rangeRandom Glucose Reference Range is dependent on time and content of last meal. Glucose of more than 200 mg/dL in a nonstressed, ambulatory subject supports the diagnosis of Diabetes Mellitus. Serum or plasma potassium me asurement (moles/volume)Ordered By: Monika Camarillo on 08-02-2022 Potassium [Moles/Vol] 3.4 mmol/L 3.5-5.1 [facility] Serum or plasma sodium measu rement (moles/volume)Ordered By: Monika Camarillo on 08-02-2022 Sodium [Moles/Vol] 137 mmol/L 136-[address] [facility] Serum or plasma total biliru bin measurement (mass/volume)Ordered By: Monika Camarillo 08-02-2022 Bilirubin [Mass/Vol] 0.6 mg/dL 0.3-1.2 [facility] Serum or plasma total carbon dioxide measurement (moles/volume)Ordered By: Monika Camarillo on 08-02-2022 CO2 [Moles/Vol] 25.4 mmol/L 22.0-30.0 [facility] Serum or plasma urea nitroge n measurement (mass/volume)Ordered By: Monika Camarillo on 08-02-2022 Urea nitrogen [Mass/Vol] 8 mg/dL 06-28 [facility] Specific gravity Auto test s trip (U) [Rel density]Ordered By: Monika Camarillo on 08-02-2022 Specific gravity (U) [Rel density] 1.009 1.001-1.030 [facility] Urine clarity by refractomet ry automatedOrdered By: Monika Camarillo on 08-02-2022 Clarity Refractometry automated (U) Clear Clear [facility] Urine glucose measurement by automated test strip (mass/volume)Ordered By: Monika Camarillo on 08-02-2022 Glucose Auto test strip (U) [Mass/Vol] Normal mg/dL Normal [facility] Urine hemoglobin detection b y automated test stripOrdered By: Monika Camarillo on 08-02-2022 Hemoglobin Auto test strip Ql (U) Negative Negative [facility] Urine lactic acid measuremen tOrdered By: Monika Camarillo on 08-02-2022 Lactate (U) [Moles/Vol] 1.4 mmol/L 0.5-2.[address] [facility] Urine leukocyte esterase det ection by automated test stripOrdered By: Monika Camarillo on 08-02-2022 Leukocyte esterase Auto test strip Ql (U) Negative Negative [facility] Urobilinogen Auto test strip (U) [Mass/Vol]Ordered By: Monika Camarillo on 08-02-2022 Urobilinogen (U) [Mass/Vol] Normal mg/dL Normal [facility] pH Auto test strip (U)Ordere d By: Monika Camarillo on 08-02-2022 pH (U) 8.0 [pH] 5.0-9.0 [facility] CBC AUTO DIFFon 07-29-2022 BASO # 0.0 103/ul Normal 0.0-0.1 [place] Comment on above: Performed By: #### C BC #### [facility] [address] [place] [address] [address] Lester Yen Basophils/100 WBC (Bld) 1.1 % Normal 0.2-2.0 [facility] [place] [facility] Comment on above: Performed By: #### C BC #### [facility] [address] [place] [address] Dr. Lester Yen EO # 0.4 103/ul Normal 0.0-0.7 [place] Comment on above: Performed By: #### C BC #### [facility] [address] [place] [address] Dr. Lester Yen Eosinophils/100 WBC (Bld) 10.8 % Critically high 0.9-7.0 [place] Comment on above: Performed By: #### C BC #### [facility] [address] [place] [address] Dr. Lester Yen Erythrocyte distribution width (RBC) [Ratio] 12.0 % Normal 11.0-15.0 [place] Comment on above: Performed By: #### C BC #### [facility] [address] [place] [address] Dr. Lester Yen Hematocrit (Bld) [Volume fraction] 36.3 % Normal 36.0-48.0 [place] Comment on above: Performed By: #### C BC #### [facility] [address] [place] [address] Dr. Lester Yen Hemoglobin (Bld) [Mass/Vol] 12.4 g/dL Normal 12.0-16.0 [place] Comment on above: Performed By: #### C BC #### [facility] [address] [place] [address] Dr. Lester Yen IG # 0.00 10e3/ul Normal 0.00-0.03 [place] Comment on above: Performed By: #### C BC #### [facility] [address] [place] [address] Dr. Lester Yen IG % 0.0 % Normal 0.0-0.5 [place] Comment on above: Performed By: #### C BC #### [facility] [address] [place] [address] Dr. Lester Yen LYMPH # 1.6 103/ul Normal 1.2-3.8 [facility] Comment on above: Performed By: #### C BC #### [facility] [address] [place] [address] Dr. Lester Yen Lymphocytes/100 WBC (Bld) 41.6 % Normal 20.5-60.0 [place] Comment on above: Performed By: #### C BC #### [facility] [address] [place] [address] Dr. Lester Yen MANUAL DIFF REQ NO Normal [facility] Comment on above: Performed By: #### C BC #### [facility] [address] [place] [address] Dr. Lester Yen MCH (RBC) [Entitic mass] 31.9 pg Normal 26.7-34.0 [place] Comment on above: Performed By: #### C BC #### [facility] [address] [place] [address] Dr. Lester Yen MCHC (RBC) [Mass/Vol] 34.2 g/dL Normal 29.9-35.2 [place] Comment on above: Performed By: #### C BC #### [facility] [address] [place] [address] Dr. Lester Yen MCV (RBC) [Entitic vol] 93.3 fL Normal 81.0-99.0 [facility] [place] [facility] Comment on above: Performed By: #### C BC #### [facility] [address] [place] [address] Dr. Lester Yen MONO # 0.3 103/ul Normal 0.3-0.8 [place] Comment on above: Performed By: #### C BC #### [facility] [address] [place] [address] Dr. Lester Yen Monocytes/100 WBC (Bld) 8.2 % Normal 1.7-12.0 [facility] [place] [facility] Comment on above: Performed By: #### C BC #### [facility] [address] [place] [address] Dr. Lester Yen NEUT # 1.5 103/ul Normal 1.4-6.5 [place] Comment on above: Performed By: #### C BC #### [facility] [address] [place] [address] [address] Lester Yen Neutrophils/100 WBC (Bld) 38.3 % Critically low 43.0-75.0 [place] Comment on above: Performed By: #### C BC #### [facility] [address] [place] [address] [address] Lester Yen Platelet mean volume (Bld) [Entitic vol] 9.3 fL Critically low 9.5-13.5 [place] Comment on above: Performed By: #### C BC #### [facility] [address] [place] [address] [address] Lester Yen PLT 184 103/ul Normal 150-450 [place] Comment on above: Performed By: #### C BC #### [facility] [address] [place] [address] Dr. Lester Yen RBC 3.89 106/ul Critically low 4.20-5.40 [facility] Comment on above: Performed By: #### C BC #### [facility] [address] [place] [address] [address] Lester Yen WBC 3.8 103/ul Critically low 4.0-11.0 [facility] Comment on above: Performed By: #### C BC #### [facility] [address] [place] [address] Dr. Lester Yen [facility] SARS-CoV-2 (COVID-19) RNA JOSE+probe Ql (Unsp spec) Not detected Normal NOT DETECTED [facility] Comment on above: Result Comment: When [...] for this test is supported by the Spooling Operator of Health and Human Service's declaration that [...] By: #### C ANJU PULIDO AMY #### [facility] [address] [place] [address] Dr. Lester Yen PREG QUANT HCGon 07-29-2022 HCG QUANT 1 mIU/mL Normal [place] Comment on above: Performed By: #### C ANJU PULIDO AMY #### [facility] [address] [place] [address] Dr. Lester Yen HCG RANGE SEE BELOW Normal [place] Comment on above: Result Comment: 5-50 0.2-1 WEEK 50-500 1-2 WEEKS 100-5,000 2-3 WEEKS 500-10,000 3-4 WEEKS 1,000-50,000 4-5 WEEKS 10,000-100,000 5-6 WEEKS 15,000-200,000 6-8 WEEKS 10,000-100,000 2-3 MONTHS Performed By: #### C ANJU PULIDO AMY #### [facility] [address] [place] [address] Dr. Lester eYn HIV 1 and HIV-2 antibody ass ay with HIV-1 p24 antigen detectionOrdered By: Dominic Hester on 06-18-2022 HIV 1+2 Ab+HIV1 p24 Ag IA Ql Non-Reactive Non Reactive [facility] Comment on above: HIV NegativeHIV-1/HI V-2 antibodies and HIV-1 p24 antigen were NOTdetected. There is no laboratory evidence of HIV infection.Performed at: [facility] [id number] Director: Lebron Manzo PhD, Phone: [phone] Hepatitis B virus surface Ag [Presence] in Serum or Plasma by ImmunoassayOrdered By: Dominic Hester on 06-18-2022 HBV surface Ag IA Ql Negative Negative [facility] Hepatitis C virus RNA [Units /volume] (viral load) in Serum or Plasma by JOSE with probOrdered By: Dominic Hester on 06-18-2022 HCV RNA JOSE+probe Qn N/A [facility] Hepatitis C virus RNA [log u nits/volume] (viral load) in Serum or Plasma by JOSE withOrdered By: Dominic Hester on 06-18-2022 HCV RNA JOSE+probe [Log units/Vol] N/A [facility] No Panel InformationOrdered By: Dominic Hester on 06-18-2022 Hepatitis A IgM Antibody Negative Negative [facility] Hepatitis B Core IgM Antibody Negative Negative [facility] Hepatitis C Interpretation See comment . [facility] Comment on above: NegativeNot infected with HCV, unless recent infection issuspected or other evidence exists to indicate HCVinfection.Performed at: [facility] [address] [id number] Director: Lebron Manzo PhD, Phone: [phone] Hepatitis C RNA Quantitative N/A [facility] Reagin Ab [Presence] in Seru m by RPROrdered By: Dominic Hester on 06-18-2022 Reagin Ab RPR Ql (S) Non-Reactive Non Reactive [facility] Comment on above: Performed at: [facility] [address] [id number] Director: Lebron Manzo PhD, Phone: [phone] Serum or plasma hepatitis C virus antibody signal/cutoff ratio by immunoassay (relatiOrdered By: Dominic Hester on 06-18-2022 HCV Ab Signal/Cutoff IA [Rel units/Vol] <0.1 s/co ratio 0.0-0.9 [facility] CHLAMYDIA/GONOCOCCUS JOSE (SW AB/URINE/PAPon 06-04-2022 Chlamydia trachomatis, JOSE Negative Normal Negative [place] Comment on above: Performed By: #### C T/NGNA #### [facility] [address] [place] [address] [address] Lester Yen Neisseria gonorrhoeae, JOSE Negative Normal Negative [place] Comment on above: Performed By: #### C T/NGNA #### [facility] [address] [place] [address] Dr. Lester Yen VAGINITIS/VAGINOSIS DNA PROB Davide 06-02-2022 Tameka species Negative Normal Negative [facility] Comment on above: Performed By: #### C ANJU PULIDO, SYLVIA #### [facility] [address] [place] [address] Dr. Lester Yen Gardnerella vaginalis Negative Normal Negative [place] Comment on above: Performed By: #### C BECKI PULIDOA, SYLVIA #### [facility] [address] [place] [address] Dr. Lester Yen Trichomonas vaginalis Negative Normal Negative [place] Comment on above: Performed By: #### C ANJU PULIDO, SYLVIA #### [facility] [address] [place] [address] Dr. Lester Yen AMYLASEon 05-28-2022 Amylase [Catalytic activity/Vol] 48 U/L Normal 25-115 [place] Comment on above: Performed By: #### C ANJU PULIDO, SYLVIA #### [facility] [address] [place] [address] Dr. Lester Yen CBC AUTO DIFFon 05-28-2022 BASO # 0.0 103/ul Normal 0.0-0.1 [place] Comment on above: Performed By: #### C BC #### [facility] [address] [place] [address] Dr. Lester Yen Basophils/100 WBC (Bld) 0.5 % Normal 0.2-2.0 [facility] [place] [facility] Comment on above: Performed By: #### C BC #### [facility] [address] [place] [address] Dr. Lester Yen EO # 0.3 103/ul Normal 0.0-0.7 [place] Comment on above: Performed By: #### C BC #### [facility] [address] [place] [address] Dr. Lester Yen Eosinophils/100 WBC (Bld) 5.7 % Normal 0.9-7.0 [place] Comment on above: Performed By: #### C BC #### [facility] [address] [place] [address] Dr. Lester Yen Erythrocyte distribution width (RBC) [Ratio] 12.6 % Normal 11.0-15.0 [place] Comment on above: Performed By: #### C BC #### [facility] [address] [place] [address] Dr. Lester Yen Hematocrit (Bld) [Volume fraction] 39.5 % Normal 36.0-48.0 [place] Comment on above: Performed By: #### C BC #### [facility] [address] [place] [address] Dr. Lester Yen Hemoglobin (Bld) [Mass/Vol] 13.2 g/dL Normal 12.0-16.0 [place] Comment on above: Performed By: #### C BC #### [facility] [address] [place] [address] Dr. Lester Yen IG # 0.01 10e3/ul Normal 0.00-0.03 [place] Comment on above: Performed By: #### C BC #### [facility] [address] [place] [address] Dr. Lester Yen IG % 0.2 % Normal 0.0-0.5 [place] Comment on above: Performed By: #### C BC #### [facility] [address] [place] [address] Dr. Lester Yen LYMPH # 1.1 103/ul Critically low 1.2-3.8 [facility] Comment on above: Performed By: #### C BC #### [facility] [address] [place] [address] Dr. Lester Yen Lymphocytes/100 WBC (Bld) 18.9 % Critically low 20.5-60.0 [place] Comment on above: Performed By: #### C BC #### [facility] [address] [place] [address] Dr. Lester Yen MANUAL DIFF REQ NO Normal [facility] Comment on above: Performed By: #### C BC #### [facility] [address] [place] [address] Dr. Lester Yen MCH (RBC) [Entitic mass] 31.1 pg Normal 26.7-34.0 [place] Comment on above: Performed By: #### C BC #### [facility] [address] [place] [address] Dr. Lester Yen MCHC (RBC) [Mass/Vol] 33.4 g/dL Normal 29.9-35.2 [place] Comment on above: Performed By: #### C BC #### [facility] [address] [place] [address] Dr. Lester Yen MCV (RBC) [Entitic vol] 93.2 fL Normal 81.0-99.0 [facility] [place] [facility] Comment on above: Performed By: #### C BC #### [facility] [address] [place] [address] Dr. Lester Yen MONO # 0.5 103/ul Normal 0.3-0.8 [place] Comment on above: Performed By: #### C BC #### [facility] [address] [place] [address] Dr. Lester Yen Monocytes/100 WBC (Bld) 8.4 % Normal 1.7-12.0 [facility] [place] [facility] Comment on above: Performed By: #### C BC #### [facility] [address] [place] [address] Dr. Lester Yen NEUT # 3.9 103/ul Normal 1.4-6.5 [place] Comment on above: Performed By: #### C BC #### [facility] [address] [place] [address] Dr. Lester Yne Neutrophils/100 WBC (Bld) 66.3 % Normal 43.0-75.0 [place] Comment on above: Performed By: #### C BC #### [facility] [address] [place] [address] Dr. Lester Yen Platelet mean volume (Bld) [Entitic vol] 9.8 fL Normal 9.5-13.5 [place] Comment on above: Performed By: #### C BC #### [facility] [address] [place], [place] [address] Dr. Lester Yen PLT 186 103/ul Normal 150-[address] [facility] Comment on above: Performed By: #### C BC #### [facility] [address] [place] [id number] Lester Yen RBC 4.24 106/ul Normal 4.20-5.40 [place] Comment on above: Performed By: #### C BC #### [facility] [id number] Lester Yen WBC 5.9 103/ul Normal 4.0-11.0 [place] Comment on above: Performed By: #### C BC #### [facility] [id number] Lester Yen CT ABD/PELV W CONon [...] TOR JIN Date: 2022-05-28 12:[address] [facility] ER URINE PROFILEon 2 Bilirubin Ql (U) Negative Normal NEGATIVE [facility] Comment on above: Performed By: #### E RUR, PREGU #### [facility] [address] [place] [address] Dr. Lester Yen Clarity (U) CLEAR Normal CLEAR [facility] Comment on above: Performed By: #### E RUR, PREGU #### [facility] [address] [place] [address] Dr. Lester Yen Color (U) LT. YELLOW Normal YELLOW [place] Comment on above: Performed By: #### E RUR, PREGU #### [facility] [address] [place] [address] Dr. Lester Yen ERUAHMarianela A micrscopic examination will be performed if indicated. Normal [facility] Comment on above: Performed By: #### E RUR, PREGU #### [facility] [address] [place] [address] Dr. Lester Yen Glucose Ql (U) Negative Normal NEGATIVE [facility] Comment on above: Performed By: #### E RUR, PREGU #### [facility] [address] [place] [address] Dr. Lester Yen Hemoglobin Ql (U) Negative Normal NEGATIVE [facility] Comment on above: Performed By: #### E RUR, PREGU #### [facility] [address] [place] [address] Dr. Lester Yen Ketones Ql (U) Negative Normal NEGATIVE [facility] Comment on above: Performed By: #### E RUR, PREGU #### [facility] [address] [place] [address] Dr. Lester Yen LEUKOCYTES Negative Normal NEGATIVE [place] Comment on above: Performed By: #### E RUR, PREGU #### [facility] [address] [place] [address] Dr. Lester Yen Nitrite Ql (U) Negative Normal NEGATIVE [facility] Comment on above: Performed By: #### E RUR, PREGU #### [facility] [address] [place] [address] Dr. Lester Yen pH (U) 6.0 [pH] Normal 5-[address] [facility] Comment on above: Performed By: #### E RUR, PREGU #### [facility] [address] [place] [address] Dr. Lester Yen SPEC GRAVITY <=1.005 Abnormal 1.005-<=1.02 5 [place] Comment on above: Performed By: #### E RUR, PREGU #### [facility] [address] [place] [address] Dr. Lester Yen UA PROTEIN Negative Normal NEGATIVE/ TRACE [facility] Comment on above: Performed By: #### E RUR, PREGU #### [facility] [address] [place] [address] Dr. Lester Yen UR MICRO IND NOT INDICATED Normal [facility] Comment on above: Performed By: #### E RUR, PREGU #### [facility] [address] [place] [address] Dr. Lester Yen Urobilinogen Qn (U) 0.2 {Olivier'U}/dL Normal 0.2 - 1. 0 [place] Comment on above: Performed By: #### E RUR, PREGU #### [facility] [address] [place] [address] Dr. Lester Yen LIPASEon 05-28-2022 Lipase [Catalytic activity/Vol] 96.0 U/L Normal 73.0-393.[address] [facility] Comment on above: Performed By: #### C MP, LIPA, SYLVIA #### [facility] [address] [place] [address] Dr. Lester Yen URon 05-28-2022 , QUAL Negative Normal NEGATIVE [facility] Comment on above: Performed By: #### E RUR, PREGU #### [facility] [address] [place] [address] [address] Lester Yen PROF 14(COMP METB)on 022 Albumin [Mass/Vol] 4.0 g/dL Normal 3.4-5.0 [facility] Comment on above: Performed By: #### C MP, LIPA, SYLVIA #### [facility] [address] [place] [address] [address] Lester Yen Albumin/Globulin [Mass ratio] 1.4 {ratio} Normal [place] Comment on above: Performed By: #### C MP, LIPA, SYLVIA #### [facility] [address] [place] [address] [address] Lester Yen ALP [Catalytic activity/Vol] 56 U/L Normal 46-116 [place] Comment on above: Performed By: #### C MP, LIPA, SYLVIA #### [facility] [address] [place] [address] Dr. Lester Yen ALT [Catalytic activity/Vol] 14 U/L Normal 14-59 [place] Comment on above: Performed By: #### C MP, LIPA, SYLVIA #### [facility] [address] [place] [address] [address] Lester Yen Anion gap [Moles/Vol] 13.3 mmol/L Normal [facility] Comment on above: Performed By: #### C MP, LIPA, SYLVIA #### [facility] [address] [place] [address] [address] Lester Yen AST [Catalytic activity/Vol] 11 U/L Critically low 15-37 [place] Comment on above: Performed By: #### C MP, LIPA, SYLVIA #### [facility] [address] [place] [address] [address] Lester Yen Bilirubin [Mass/Vol] 0.5 mg/dL Normal 0.2-1.0 [place] Comment on above: Performed By: #### C MP, LIPA, SYLVIA #### [facility] [address] [place] [address] [address] Lester Yen Calcium [Mass/Vol] 8.9 mg/dL Normal 8.5-10.1 [facility] Comment on above: Performed By: #### C ANJU PULIDO, SYLVIA #### [facility] [address] [place] [address] Dr. Lester Yen Chloride [Moles/Vol] 105 mmol/L Normal 98-107 [place] Comment on above: Performed By: #### C ANJU PULIDO, SYLVIA #### [facility] [address] [place] [address] Dr. Lester Yen CO2 [Moles/Vol] 24.4 mmol/L Normal 21.0-32.0 [facility] Comment on above: Performed By: #### C ANJU PULIDO, SYLVIA #### [facility] [address] [place] [address] Dr. Lester Yen Creatinine [Mass/Vol] 0.88 mg/dL Normal 0.55-1.02 [place] Comment on above: Performed By: #### C ANJU PULIDO, SYLVIA #### [facility] [address] [place] [address] Dr. Lester Yen EGFR-AF WELSH >60 Normal >=60 [facility] Comment on above: Performed By: #### C ANJU PULIDO, SYLVIA #### [facility] [address] [place] [address] Dr. Lester Yen EGFR-NON AF WELSH >60 Normal >=60 [place] Comment on above: Performed By: #### C ANJU PULIDO, SYLVIA #### [facility] [address] [place] [address] Dr. Lester Yen Globulin (S) [Mass/Vol] 2.8 g/dL Normal [facility] Comment on above: Performed By: #### C ANJU PULIDO, SYLVIA #### [facility] [address] [place] [address] Dr. Lester Yen Glucose [Mass/Vol] 100 mg/dL Normal 74-106 [facility] Comment on above: Performed By: #### C ANJU PULIDO, SYLVIA #### [facility] [address] [place] [address] Dr. Lester Yen Potassium [Moles/Vol] 3.7 mmol/L Normal 3.5-5.1 [place] Comment on above: Performed By: #### C ANJU PULIDO, SYLVIA #### [facility] [address] [place] [address] Dr. Lester Yen Protein [Mass/Vol] 6.8 g/dL Normal 6.4-8.2 [facility] Comment on above: Performed By: #### C ANJU PULIDO, SYLVIA #### [facility] [address] [place] [address] [address] Lester Yen Sodium [Moles/Vol] 139 mmol/L Normal 136-145 [facility] Comment on above: Performed By: #### C ANJU PULIDO, SYLVIA #### [facility] [address] [place] [address] Dr. Lester Yen Urea nitrogen [Mass/Vol] 13.0 mg/dL Normal 7.0-18.0 [place] Comment on above: Performed By: #### C ANJU PULIDO, SYLVIA #### [facility] [address] [place] [address] Dr. Lester Yen Urea nitrogen/Creatinine [Mass ratio] 14.8 mg/mg Normal [place] Comment on above: Performed By: #### C ANJU PULIDO, SYLVIA #### [facility] [address] [place] [address] Dr. Lester Yen Long-Term Documentson 04-19-2021 Long-Term Documents [id number] .00CD:127 Normal [facility] Long-Term Documentson 06-06-2020 Long-Term Documents Long-Term Nurse Visit 14 day Health Appraisal Date [...] forearm Date vial opened: 05/18/2020 Lot number: [id number] Expiration date: 01/24 PPD Comments: PPD Results [...] wish to attend AA Meetings? _ sure Long-Term Assessment 05/31/20 15:54:00 Long-Term Assessment Entered On: 05/31/2020 15:56 EDT Performed [...] Pressure Posi (more content not included)... Normal [facility] Long-Term Documentson 05-29-2020 Long-Term Documents [id number]#1.00CD:127 Normal [facility] Chlam/GC/Trich,NAAon 020 C. trachomatis rRNA JOSE+probe Ql (Unsp spec) Negative Invalid Interpretation Code Negative [facility] Comment on above: Performed By: #### 1 [id number] #### [facility] [address] [place] [address] N. gonorrhoeae rRNA JOSE+probe Ql (Unsp spec) Negative Invalid Interpretation Code Negative [facility] Comment on above: Performed By: #### 1 [id number] #### [facility] [address] [place] [address] T. vaginalis DNA JOSE+probe Ql (Unsp spec) Negative Invalid Interpretation Code Negative [facility] Comment on above: Result Comment: Perf ormed at: =G [facility] [address] [id number] MD Jama Valdivia Performed By: #### 1 [id number] #### [facility] [address] [place] [address] Coding Summary.on 05-15-2020 Coding Summary. CODING DATE: 05/15/2020 FINAL [facility] STATUS: Home (Routine DC) PAYOR: Medicaid [facility] DESCRIPTION 0425 LEVEL I OTHER MISCELLANEOUS ANCILLARY [...] Revised Date Saved: 05/15/2020 10:37 am Normal [facility] Amylaseon 05-14-2020 Amylase [Catalytic activity/Vol] 58 U/L Normal 25-157 [facility] Comment on above: Performed By: #### 2 557558, 04900020, 7490247, 6800003, 2344619, 1582450, 8315953 ####[facility] [address] [place] [address] Auto Diffon 05-14-2020 Basophils/100 WBC (Bld) 0.5 % Normal 0.0-2.0 [facility] Comment on above: Order Comment: Order Added by Discern Expert. Performed By: #### 2 197226, 48319141, 0331101, 3839733, 0572573, 0256374, 9360532 ####[facility] [address] [place] [address] Basophils/Leukocytes Auto (Bld) [Pure # fraction] 0.0 E9/L Normal 0.0-0.2 [facility] Comment on above: Order Comment: Order Added by Discern Expert. Performed By: #### 2 418776, 71510775, 1376166, 3890978, 7500832, 1951205, 9064999 ####[facility] [address] [place] [address] Eosinophils/100 WBC (Bld) 8.4 % High 0.0-8.0 [facility] Comment on above: Order Comment: Order Added by Discern Expert. Performed By: #### 2 316959, 54921090, 4836017, 2050251, 1577776, 0054597, 2493969 ####[address] [place] [address] Eosinophils/Leukocytes Auto (Bld) [Pure # fraction] 0.5 E9/L Normal 0.0-0.5 [facility] Comment on above: Order Comment: Order Added by Discern Expert. Performed By: #### 2 774308, 74391423, 1419088, 2711530, 8092384, 9002669, 8405584 ####[address] [address] Lymphocytes/100 WBC (Bld) 31.4 % Normal 14.0-50.0 [facility] Comment on above: Order Comment: Order Added by Lacy Expert. Performed By: #### 2 957637, 53237490, 5191816, 1951911, 7169939, 8795935, 5082092 ####[address] [address] Lymphocytes/Leukocytes Auto (Bld) [Pure # fraction] 1.8 E9/L Normal 1.0-4.0 [facility] Comment on above: Order Comment: Order Added by Discern Expert. Performed By: #### 2 909531, 08175191, 0168099, 3998702, 2081294, 5159622, 3104646 ####[address] [address] Monocytes/100 WBC (Bld) 8.2 % Normal 4.0-14.0 [facility] Comment on above: Order Comment: Order Added by Lacy Expert. Performed By: #### 2 605102, 14512718, 6943924, 1844868, 9392998, 9346733, 4216778 ####[address] [place] [address] Monocytes/Leukocytes Auto (Bld) [Pure # fraction] 0.5 E9/L Normal 0.2-1.0 [facility] Comment on above: Order Comment: Order Added by Discern Expert. Performed By: #### 2 048706, 10049657, 3377516, 0134369, 5901184, 5963669, 1943812 ####[facility] [address] [place] [address] Neutrophils/100 WBC (Bld) 51.5 % Normal 36.0-75.0 [facility] Comment on above: Order Comment: Order Added by Discern Expert. Performed By: #### 2 272130, 75224608, 0571095, 4824023, 7781179, 6864935, 9085959 ####[facility] [address] [place] [address] Neutrophils/Leukocytes Auto (Bld) [Pure # fraction] 2.9 E9/L Normal 2.0-7.5 [facility] Comment on above: Order Comment: Order Added by Discern Expert. Performed By: #### 2 742729, 74289581, 4170258, 8479409, 3035442, 8599745, 8690909 ####[facility] [address] [place] [address] BMPon 05-14-2020 Creatinine [Mass/Vol] 0.9 mg/dL Normal 0.5-1.3 [facility] Comment on above: Performed By: #### 2 445252, 01776289, 1861419, 4149036, 8735081, 1176601, 6699019 ####[facility] [address] [place] [address] Urea nitrogen [Mass/Vol] 14 mg/dL Normal 5-21 [facility] Comment on above: Performed By: #### 2 373551, 34595897, 6001410, 3259919, 0292626, 3018366, 4489846 ####[facility] [address] [place] [address] Urea nitrogen/Creatinine [Mass ratio] 16 No Units Normal 10-20 [facility] Comment on above: Performed By: #### 2 491768, 99882423, 0026984, 1570699, 0676624, 6299742, 8771834 ####[facility] [address] [place] [address] Anion gap [Moles/Vol] 12 mmol/L Normal 6-16 [facility] Comment on above: Performed By: #### 2 330131, 20042012, 9768145, 9387327, 4791322, 2664024, 0208188 ####[facility] [address] [place] [address] Calcium [Mass/Vol] 9.3 mg/dL Normal 8.9-11.1 [facility] Comment on above: Performed By: #### 2 064277, 63636586, 3253737, 9586106, 4514596, 0176801, 6772361 ####[facility] [address] [place] [address] Chloride [Moles/Vol] 103 mmol/L Normal 101-111 [facility] Comment on above: Performed By: #### 2 183980, 93524252, 6473066, 0239669, 5786239, 4014836, 6819390 ####[facility] [address] [place] [address] CO2 [Moles/Vol] 27 mmol/L Normal 21-31 [facility] [place] [facility] Comment on above: Performed By: #### 2 440569, 74760181, 2997632, 4911085, 5052346, 1665989, 9342858 ####[facility] [address] [place] [address] Glucose [Mass/Vol] 89 mg/dL Normal 55-199 [facility] Comment on above: Result Comment: If t his glucose result represents a fasting glucose, interpretation should refer to the following reference range: 55-99 mg/dL Performed By: #### 2 622375, 41996821, 7485933, 4591851, 5000040, 5871585, 5521788 ####[facility] [address] [place] [address] Potassium [Moles/Vol] 3.8 mmol/L Normal 3.5-5.3 [facility] Comment on above: Performed By: #### 2 518356, 20778242, 3884723, 7014247, 7084532, 2437101, 0988058 ####[facility] [address] [place] [address] Sodium [Moles/Vol] 138 mmol/L Normal 135-145 [facility] Comment on above: Performed By: #### 2 814754, 11833115, 4595208, 5743192, 0499099, 4723937, 4672788 ####[facility] [address] [place] [address] CBC w/ Auto Diffon 0 Erythrocyte distribution width (RBC) [Ratio] 12.7 % Normal 10.9-14.2 [facility] Comment on above: Performed By: #### 2 791271, 49389699, 5059852, 6987703, 1509897, 6694719, 4838805 ####[facility] [address] [place] [address] Hematocrit (Bld) [Volume fraction] 41.7 % Normal 34.0-46.0 [facility] Comment on above: Performed By: #### 2 736663, 83171867, 2905515, 1397267, 4858549, 6746173, 1694278 ####[address] [place] [address] Hemoglobin (Bld) [Mass/Vol] 13.9 g/dL Normal 12.0-16.0 [facility] Comment on above: Performed By: #### 2 172466, 02079851, 0615492, 4025888, 0296473, 1370139, 6721487 ####[address] [place] [address] MCH (RBC) [Entitic mass] 30.8 pg Normal 27.0-34.0 [facility] Comment on above: Performed By: #### 2 912672, 32665812, 3692386, 2227638, 2070129, 6940426, 4397137 ####[facility] [address] [place] [address] MCHC (RBC) [Mass/Vol] 33.3 g/dL Normal 31.4-36.0 [facility] Comment on above: Performed By: #### 2 469964, 77857510, 6809308, 4631562, 6106789, 1925183, 9705285 ####[facility] [address] [place], [place] [address] MCV (RBC) [Entitic vol] 92.5 fL Normal 80.0-100.0 [facility] Comment on above: Performed By: #### 2 402600, 32674342, 0478764, 6640107, 3378860, 6041257, 8409129 ####[address] [address] Platelet mean volume (Bld) [Entitic vol] 8.2 fL Normal 6.4-10.8 [facility] Comment on above: Performed By: #### 2 417441, 90872668, 9538827, 6729255, 5102240, 3262911, 7892680 ####[place] [address] Platelets (Bld) [#/Vol] 230.0 E9/L Normal 150.0-500.0 [facility] Comment on above: Performed By: #### 2 619933, 67110737, 6369794, 4954261, 6372321, 7610103, 0296789 ####[facility] [address] [place] [address] RBC (Bld) [#/Vol] 4.5 E12/L Normal 4.3-5.9 [facility] Comment on above: Performed By: #### 2 744129, 55187381, 8380943, 9397901, 6613523, 2059259, 2093309 ####[address] WBC corrected for nucl RBC Auto (Bld) [#/Vol] 5.7 E9/L Normal 4.0-11.0 [facility] [place] [facility] Comment on above: Performed By: #### 2 679183, 61515272, 7547544, 2428137, 2517429, 5309005, 2707150 ####[facility] [address] [place] [address] Discharge Instructionson Discharge Instructions [id number] #[id number]:127 Normal [facility] ED Clinical Summaryon 2019 ED Clinical Summary [address] [address] ED Clinical Summary Person Information Name: BREANA PICKETT [facility] Age: 29 Years : 1990 Sex: Female Language: Amharic PCP: Mica CARLTON MD Marital Status: Single Phone: [phone] Visit Id: Visit Reason: Abdominal pain; STOMACH [...] 05/14/2020 04:35:55 05/14/2020 04:35:55 05/14/2020 04:35:55 ADDRESS: [address] [place] [id number] [facility] DOC NOTES: MEDICAL INFORMATION: Prescriptions Given: New Medications Printed Prescriptions levofloxacin (Levaquin 500 mg Tab) 1 Tablets By Mouth every day. Refills: 0. Medications to Continue with No Changes Other Medications escitalopram (Lexapro 10 mg Tab) 1 Tablets By Mouth every day. 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 Renner aware of patient c/o generalized abd pain, rates at 7/10. Order received for Lefor, 2 tabs, one-time only. Normal [facility] ED Note-Nursing Dr. Renner at bedside for results review. Normal [facility] ED Note-Nursing Patient to u/s Normal [facility] ED Note-Nursing Dr. Renner at bedside for results update. Normal [facility] ED Note-Nursing Patient to xray. Normal [facility] ED Note-Nursing Dr. Renner at bedside for assessment. 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 Abdominal pain in female (R10.9: [...] 22:35:00) Lymph Auto: 31.4 % (05/13/20 22:35:00) [place] Auto: 8.2 % (05/13/20 22:35:00) Eos Auto: 8.4 % High (05/13/20:35:00) Basophil Auto: 0.5 % (05/13/20 22:35:00) Neutro Absolute: 2.9 E9/L (05/13/20 22:35:00) Lymph Absolute: 1.8 E9/L (05/13/20 22:35:00) [place] Absolute: 0.5 E9/L (05/13/20 22:35:00) Eos Absolute: 0.5 E9/L (05/13/20 (more content not included)... Normal [facility] Comment on above: Result Comment: Adolfo taborally Signed By: Lucio Renner MD\.br\Date and Time Signed: 05/14/20 03:46 EDT ED [...] 03/23/2013 Document Reviewed: 01/11/2013 ExitCare? Patient Information ?2014 [employer]. This information is not intended to replace advice given to you by your health care provider. Make sure you discuss any questions you have with your health care provider. Normal [facility] ED Patient Summaryon 020 ED Patient Summary [address] [address] Patient Discharge Instructions Person Information Name: BREANA PICKETT Age: 29 Years Arrival Date: 05/13/2020 21:43:46 Discharge Diagnosis: 1:Abdominal pain in female; Pelvic pain Primary Care Physician: Mica CARLTON MD Provider Information Primary Provider: Lucio Renner MD Advanced Mending Carrier:None The exam and treatment you received in the Emergency Department were for an urgent problem and are not intended as complete care. It is important that you follow up with a doctor, nurse practitioner, or physician?s billing assistant for ongoing care. If your symptoms become worse or you do not improve as expected and you are unable to reach your usual health care provider, you should return to the Emergency Department. We are available 24 hours a day. 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 Patient Education Materials: Pelvic Pain, Female, Nnro-vl-Fimo A MESSAGE TO ALL PATIENTS REGARDING OPIOIDS PRESCRIPTION OPIOIDS: WHAT YOU NEED TO KNOW Prescription opioids can be used to help relieve adsjndkp-ej-wfguew pain and are often prescribed following a [...] tell your (more content not included)... Normal [facility] Hep Func Panelon 05-14-2020 Bilirubin.indirect [Mass or moles/Vol] UTC Abnormal 0.1-0.9 [facility] Comment on above: Result Comment: Resu lt verified by Discern Rule. Performed result UT (Unable to Calculate) was sent as an Alpha code due the inability to calculate a valid numeric value. Performed By: #### 2 [id number], [id number], 9361859, 3950826, 3207243, 2455800, 3023021 ####[facility] [address] [place] [address] Albumin [Mass/Vol] 4.2 g/dL Normal 3.3-5.0 [facility] Comment on above: Performed By: #### 2 480116, 50068321, 9988452, 5946217, 4440402, 8488300, 4349559 ####[facility] [address] [place] [address] Albumin/Globulin (S) [Mass conc ratio] 1.4 Normal 1.1-2.2 [facility] Comment on above: Performed By: #### 2 569523, 04758136, 5075080, 2299596, 8250095, 9634470, 0067801 ####[facility] [address] [place] [address] ALP [Catalytic activity/Vol] 62 Int._Unit/L Normal 21-98 [facility] Comment on above: Performed By: #### 2 015356, 41279752, 9660915, 1746524, 1659843, 4091504, 4294716 ####[facility] [address] [place] [address] ALT No additional P-5'-P [Catalytic activity/Vol] 15 Int._Unit/L Normal 6-46 [facility] Comment on above: Performed By: #### 2 756189, 64455802, 2957062, 5676010, 7899978, 9104894, 0933290 ####[facility] [address] [place] [address] AST [Catalytic activity/Vol] 15 Int._Unit/L Normal 5-43 [facility] Comment on above: Performed By: #### 2 608183, 07772640, 4007703, 7411796, 1962903, 2541650, 4825574 ####[facility] [address] [place] [address] Bilirubin [Mass/Vol] 0.8 mg/dL Normal 0.0-1.1 [facility] Comment on above: Performed By: #### 2 028448, 12466493, 8997407, 6477699, 8047919, 9027015, 1298703 ####[facility] [address] [place] [address] Bilirubin.direct [Mass/Vol] mg/dL Normal 0.1-0.4 [facility] Comment on above: Performed By: #### 2 174531, 14965696, 3575959, 1935681, 4620546, 6070610, 8183215 ####[address] [address] Globulin (S) [Mass/Vol] 2.9 g/dL Normal 1.4-4.0 [facility] Comment on above: Performed By: #### 2 037378, 77779037, 7424019, 7204289, 6620458, 7592844, 2398891 ####[facility] [address] [place] [address] Protein [Mass/Vol] 7.1 g/dL Normal 6.0-7.8 [facility] Comment on above: Performed By: #### 2 664231, 80815638, 9299284, 7601936, 8499805, 1237472, 2581474 ####[facility] [address] [place] [address] Lipase Levelon 05-14-2020 Lipase [Catalytic activity/Vol] 36 U/L Normal 13-58 [facility] Comment on above: Performed By: #### 2 319834, 27804250, 0505517, 5925324, 6448024, 4109249, 5700333 ####[facility] [address] [place] [address] U BetaHcg Qualon 05-14-2020 HCG.beta subunit (U) [Moles/Vol] Negative Normal [facility] Comment on above: Performed By: #### 2 1897915, 27585615 #### [facility] [address] [place] [address] UA With Cult Reflexon 2019 Bilirubin Ql (U) Negative Normal Negative [facility] Comment on above: Performed By: #### 2 7992535, 15118659 #### [facility] [address] [place] [address] Clarity (U) SL CLOUDY Abnormal Clear [facility] Comment on above: Performed By: #### 2 3409203, 48549131 #### [facility] [address] [place] [address] Color (U) YELLOW Normal Yellow [facility] Comment on above: Performed By: #### 2 5296181, 57846580 #### [facility] [address] [place] [address] Epithelial cells.squamous LM.HPF (Urine sed) [#/Area] 3-4 Normal 0-2 [facility] Comment on above: Performed By: #### 2 1317583, 91180173 #### [facility] [address] [place] [address] Glucose Test strip (U) [Mass/Vol] Negative Normal Negative [facility] Comment on above: Performed By: #### 2 4851175, 20071499 #### [facility] [address] [place] [address] Hemoglobin Ql (U) Negative Normal Negative [facility] Comment on above: Performed By: #### 2 1591623, 92806283 #### [facility] [address] [place] [address] Ketones (U) [Mass/Vol] TRACE Abnormal Negative [facility] Comment on above: Performed By: #### 2 7583560, 60164149 #### [facility] [address] [place] [address] Stapleton.plasma/Stapleton.R BC (Bld) [Mass ratio] 0-3 Normal 0-3 [facility] Comment on above: Performed By: #### 2 6779245, 48195249 #### [facility] [address] [place] [address] Nitrite Ql (U) Negative Normal Negative [facility] Comment on above: Performed By: #### 2 4853850, 04354461 #### [facility] [address] [place] [address] pH (U) 7.0 [pH] Invalid Interpretation Code 5.0-9.0 [facility] Comment on above: Performed By: #### 2 7822044, 77206581 #### [facility] [address] [place] [address] Protein (U) [Mass/Vol] Negative Normal Negative [facility] Comment on above: Performed By: #### 2 8515026, 53839485 #### [facility] [address] [place] [address] Specific gravity (U) [Rel density] 1.020 Invalid Interpretation Code 1.005-1.030 [facility] Comment on above: Performed By: #### 2 0886422, 73606310 #### [facility] [address] [place] [address] UA Spec Desc Clean Catch Normal [facility] Comment on above: Performed By: #### 2 2571142, 58719652 #### [facility] [address] [place] [address] Urobilinogen Qn (U) 0.2 {Olivier'U}/dL Normal 0.0-1.0 [facility] Comment on above: Performed By: #### 2 1324444, 20708413 #### [facility] [address] [place] [address] WBC Auto Ql (U) Negative Normal Negative [facility] Comment on above: Performed By: #### 2 8545459, 67262274 #### [facility] [address] [place] [address] WBC LM.HPF (Urine sed) [#/Area] 0-5 Normal 0-5 [facility] Comment on above: Performed By: #### 2 7879345, 30085017 #### [facility] [address] [place] [address] US Pelvis Non-OB Completeon 05-14-2020 US Pelvis [...] TUCKER Technical Comments Transabdominal Ultrasound Performed Normal [facility] XR Abdomen Series w/ Chest 1 Viewon [...] DO Transcribed by: GABRIELE Technologist: TERESA Normal [facility] eGFRon 05-14-2020 GFR/1.73 sq M.predicted among blacks MDRD (S/P/Bld) [Vol rate/Area] mL/min/{1.73_m2} Normal >=59 [facility] Comment on above: Order Comment: Order added by Discern Expert. Result Comment: eGFR is race adjusted. AA=. Performed By: #### 2 658606, 52222052, 2555308, 0007926, 8001699, 7721849, 1286704 ####[facility] [address] [place] [address] GFR/1.73 sq M.predicted among non-blacks MDRD (S/P/Bld) [Vol rate/Area] mL/min/{1.73_m2} Normal >=59 [facility] Comment on above: Order Comment: Order added by Discern Expert. Result Comment: Health Equipment Servicer pérez kidney disease could be indicated at eGFR's of less than 60 mL/min/1.73m2. Kidney failure is indicated at less than 15 mL/min/1.73m2. Performed By: #### 2 521621, 09518090, 7813271, 9583974, 5883833, 1229012, 7457591 ####[facility] [address] [place] [address] Consent for Treatmenton 08-0 Consent for Treatment [id number] 00 [id number] #1.00CD:127 Normal [facility] Vital Signs Date Time Vital Sign Value Performing Clinician Facility 07-19-2024 13:26-0400 Body mass index (BMI) [Ratio] 22.5 kg/m2 Witel Work Phone: [facility] 07-19-2024 13:26-040 Body weight 57.61 kg Witel Work Phone: [facility] 07-19-2024 13:26-0400 Diastolic blood pressure 60 mm[Hg] Witel Work Phone: [facility] 07-19-2024 13:26-0400 Systolic blood pressure 110 mm[Hg] Witel Work Phone: [facility] 06-17-2024 14:12-040 Body height 160.02 cm PHYSICIAN NO [facility] 06-17-2024 14:12-0400 Body temperature 98.5 [degF] PHYSICIAN NO [facility] 06-17-2024 14:12-0400 Body weight 52.4 kg PHYSICIAN NO [facility] 06-17-2024 14:12-0400 Diastolic blood pressure 52 mm[Hg] PHYSICIAN NO [facility] 06-17-2024 14:12-0400 Heart rate 72 /min PHYSICIAN NO [facility] 06-17-2024 14:12-0400 Respiratory rate 20 /min PHYSICIAN NO [facility] 06-17-2024 14:12-0400 SaO2% (BldA) [Mass fraction] 99 % PHYSICIAN NO [facility] 06-17-2024 14:12-0400 Systolic blood pressure 109 mm[Hg] PHYSICIAN KARLY GAN [facility] 04-07-2023 14:45-0400 Body height 160.02 cm Dutch Mendez Other [facility] Other 04-07-2023 14:45-0400 Body mass index (BMI) [Ratio] 21.25 kg/m2 Dutch Mendez Other [facility] 04-07-2023 14:45-0400 Body temperature 98 [degF] Dutch Mendez Other [facility] Other 04-07-2023 14:45-0400 Body weight 54.43 kg Dutch Mendez Other [facility] Other 04-07-2023 14:45-0400 Diastolic blood pressure 62 mm[Hg] Dutch Mendez Other [facility] Other 04-07-2023 14:45-0400 Respiratory rate 18 /min Dutch Mendez Other [facility] Other 04-07-2023 14:45-0400 SaO2% (BldA) [Mass fraction] 97 % Dutch Mendez Other [facility] 04-07-2023 14:45-0400 Systolic blood pressure 99 mm[Hg] Dutch Vanessa Other [facility] Other 01-03-2023 18:30-0400 Diastolic blood pressure 53 mm[Hg] ROBBIN Garcia Work Phone: [facility] 01-03-2023 18:30-0400 Heart rate 51 /min RAILROAD PURCHASING AGENT-Lauren Garcia Work Phone: [facility] 01-03-2023 18:30-0400 Respiratory rate 16 /min RAILROAD PURCHASING AGENT-C Naomy Luby Work Phone: [facility] 01-03-2023 18:30-0400 SaO2% (BldA) [Mass fraction] 100 % [employer]ILROAD PURCHASING AGENT-C Naomy Luby Work Phone: [facility] 01-03-2023 18:30-0400 Systolic blood pressure 96 mm[Hg] RAILROAD PURCHASING AGENT-C Naomy Luby Work Phone: 5(286)750-837415 [address] 01-03-2023 14:50-0400 Body height 160.02 cm RAILROAD PURCHASING AGENT-C Naomy Luby Work Phone: 9(779)303-230415 [address] 01-03-2023 14:50-0400 Body temperature 98.1 [degF] RAILROAD PURCHASING AGENT-C Naomy Luby Work Phone: 2(527)741-363415 [address] 01-03-2023 14:50-0400 Body weight 58.65 kg RAILROAD PURCHASING AGENT-C Naomy Luby Work Phone: 1(457)342-648703 [place] [address] 08-02-2022 20:04-0400 Diastolic blood pressure 51 mm[Hg] RAILROAD PURCHASING AGENT-C Naomy Luby Work Phone: 5(251)966-476803 [place] [address] 08-02-2022 20:04-0400 Heart rate 81 /min [employer]ILRO[employer] PURCHASING AGENT-C Naomy Luby Work Phone: 1(519)827-780803 [place] [address] 08-02-2022 20:04-0400 Respiratory rate 16 /min RAILROAD PURCHASING AGENT-C Naomy Luby Work Phone: 8(131)394-700603 [place] [address] 08-02-2022 20:04-0400 SaO2% (BldA) [Mass fraction] 100 % RAILROAD PURCHASING AGENT-C Naomy Luby Work Phone: 1(767)989-629603 [place] [address] 08-02-2022 20:04-0400 Systolic blood pressure 104 mm[Hg] RAILROAD PURCHASING AGENT-C Naomy Luby Work Phone: 5(236)673-823703 [place] [address] 08-02-2022 17:33-0400 Body height 160.02 cm RAILROAD PURCHASING AGENT-C Naomy Luby Work Phone: 6(195)838-224103 [place] [address] 08-02-2022 17:33-0400 Body temperature 98.8 [degF] RAILROAD PURCHASING AGENT-C Naomy Garcia Work Phone: [facility] 08-02-2022 17:33-0400 Body weight 59.4 kg RAILROAD PURCHASING AGENT-C Naomy Garcia Work Phone: [facility] Encounters Encounter Date Encounter Type Care Provider Facility Start: 07-19-2024 End: 07-19-2024 Bamboo flowsheet Dominic Mir DO Work Phone: [facility] Start: 07-19-2024 End: 07-19-2024 Bamboo flowsheet Dominic Mir DO Work Phone: [facility] Start: 07-19-2024 End: 07-19-2024 ambulatory DOMINIC MIR Not Available Start: 07-19-2024 End: 07-19-2024 Office outpatient visit 15 minutes Dominic Mir DO Work Phone: [facility] Comment on above: Female infertility; Anovulation Start: 06-29-2024 End: 06-29-2024 ambulatory DOMINIC MIR Not Available Start: 06-17-2024 End: 06-17-2024 Emergency department patient visit PHYSICIAN KARLY GAN [facility] Work Phone: Start: 04-24-2024 End: 04-24-2024 Patient encounter procedure RAILROAD PURCHASING AGENT-C Naomy Garcia Work Phone: [facility] [place] Work Phone: Start: 04-24-2024 End: 04-24-2024 ambulatory RAILROAD PURCHASING AGENT-C Naomy Garcia Work Phone: [facility] Work Phone: Start: 03-09-2024 End: 03-09-2024 ambulatory DOMINIC MIR Not Available Start: 02-09-2024 End: 02-09-2024 ambulatory DOMINIC MIR Not Available Start: 02-09-2024 End: 02-09-2024 Patient encounter procedure RAILROAD PURCHASING AGENT-C Naomy Garcia Work Phone: [facility]Ul[facility] [place] Work Phone: Start: 02-09-2024 End: 02-09-2024 ambulatory RAILROAD PURCHASING AGENT-C Naomy Garcia Work Phone: [facility] Work Phone: Start: 01-06-2024 End: 01-06-2024 ambulatory DOMINIC HESTER Not Available Start: 04-07-2023 End: 04-07-2023 ambulatory Dutch Mendez Other [facility] [email or web address] Other Start: 04-07-2023 Office outpatient ne w 20 minutes Dutch Mendez [facility] Urgent Care [facility] Start: 03-28-2023 End: 03-28-2023 ambulatory RAILROAD PURCHASING AGENT-C Naomy Garcia Work Phone: [facility] Work Phone: Start: 03-28-2023 End: 03-28-2023 Patient encounter procedure RAILROAD PURCHASING AGENT-C Naomy Garcia Work Phone: [facility] [place] Work Phone: Start: 01-17-2023 End: 01-17-[address] DOMINIC HESTER . Facility:[facility] Start: 01-17-2023 End: 01-18-[address] DOMINIC HESTER . Facility:[facility] Start: 01-03-2023 End: 01-04-[address] DOCTOR PATEL Facility:[facility] Start: 01-03-2023 End: 01-03-2023 Emergency department patient visit RAILRO[employer] PURCHASING AGENT-C Naomy Garcia Work Phone: [facility] Work Phone: Start: 12-26-2022 End: 12-27-[address] DOMINIC HESTER . Facility:[facility] Start: 12-25-2022 End: 12-26-[address] DOMINIC HESTER . Facility:[facility] Start: 08-02-2022 End: 08-02-2022 Emergency department patient visit RAILROAD PURCHASING AGENT-C Naomy Garcia Work Phone: [facility]-Emergency Room Start: 07-31-2022 Encounter for other preprocedural examination DR DOMINIC HESTER . [facility] Start: 07-29-2022 End: 07-30-2022 Encounter for other preprocedural examination DR DOMINIC HESTER . Facility:[facility] Start: 07-29-2022 End: 07-30-[address] DOMINIC HESTER . Facility:[facility] Start: 07-16-2022 End: 07-17-[address] DOMINIC HESTER . Facility:[facility] Start: 06-18-2022 End: 06-18-2022 Patient encounter procedure RAILROAD PURCHASING AGENT-Lauren Garcia Work Phone: [facility] [place] Start: 06-01-[address] DOMINIC HESTER . Facili ty:[facility]1 Start: 05-30-2022 End: 05-30-[address] DOMINIC HESTER . Facility: Start: 05-28-2022 End: 05-28-2022 ambulatory ROGELIO HERNANDEZ . Facility: Procedures Date Procedure Procedure Detail Performing Clinician Start: 02-09-2024 Pelvic echography RAILRO[employer] PURCHASING AGENT-Lauren Garcia Work Phone: Start: 02-09-2024 Transvaginal echography RAILRO[employer] PURCHASING AGENT-Lauren Garcia Work Phone: Start: 01-03-2023 Diagnostic ultrasoun d of gravid uterus [employer]ILRO[employer] PURCHASING AGENT-Lauren Garcia Work Phone: Start: 01-03-2023 Ultrasonography of r ight kidney [employer]ILRO[employer] PURCHASING AGENT-Lauren Garcia Work Phone: Start: 01-03-2023 Transvaginal obstetr ic ultrasonography [employer]ILRO[employer] PURCHASING AGENT-Lauren Garcia Work Phone: Plan of Treatment Date Care Activity Detail Author Start: 12-20-2024 End: 12-20-2024 Patient encounter procedure 12/20/2024 2:10 PM EDT Office Visit [facility] [address] [place] [id number] Dominic Hester, DO [address] [place] [address] [facility] Start: 03-28-2023 [facility] Start: 01-03-2023 [facility] Start: 06-18-2022 [facility] Work Phone: Bacteria identified in Blood by Culture Blood Culture [facility] Glucose measurement estimated from glycated hemoglobin [facility] Hepatitis A virus antibody, IgM type [facility] Work Phone: Hepatitis B core antibody measurement, IgM type [facility] Work Phone: Hepatitis B virus surface Ag [Presence] in Serum or Plasma by Immunoassay [facility] Work Phone: Hepatitis C virus Ab Signal/Cutoff in Serum or Plasma by Immunoassay [facility] Work Phone: Hepatitis C virus RN A [log units/volume] (viral load) in Serum or Plasma by JOSE with probe detection [facility] Work Phone: Hepatitis C virus RN A [Units/volume] (viral load) in Serum or Plasma by JOSE with probe detection [facility] Work Phone: HIV 1+2 Ab+HIV1 p24 Ag [Presence] in Serum or Plasma by Immunoassay [facility] Work Phone: Patient Education [facility] Work Phone: Patient referral [facility] Work Phone: Reagin Ab [Presence] in Serum by RPR [facility] Work Phone: Payers Date Payer Category Payer Private Health Insurance [facility] MEDICAID [id number] 1991 Unknown [id number] 2.16.840.1.308806.3.579.2. 593 1991 Unknown [id number] 2.16.840.1.142539.3.579.2. 593 1991 Unknown [id number] 2.16.840.1.512854.3.579.2. 593 1991 Unknown [id number] 2.16.840.1.347870.3.579.2. 593 1991 Unknown [id number] 2..840.1.226722.3.579.2. 593 1991 Unknown [id number] 2.840.1.704895.3.579.2. 593 1991 Unknown [id number] 2.16.840.1.655973.3.579.2. 593 1991 Unknown [id number] 2.16.840.1.955013.3.579.2. 593 1991 Unknown [id number] 2.840.1.258044.3.579.2. 593 1991 Unknown [id number] 2.840.1.760501.3.579.2. 593 1991 Unknown [id number] 2.16.840.1.978206.3.579.2. 593 1991 Unknown [id number] 2.16.840.1.997760.3.579.2. 593 1991 Unknown [id number] 2.16.840.1.041498.3.579.2. 1259 1991 Unknown [id number] 2.16.840.1.378944.3.579.2. 1259 1991 Unknown [id number] 2.16.840.1.087337.3.579.2. 1259 1991 Unknown [id number] 2.16.840.1.758663.3.579.2. 1259 1991 Unknown [id number] 2.16.840.1.400098.3.579.2. 1259 1959 Private Health Insurance [id number] Self-pay [id number] 1958 Unknown [id number] Self-pay Self Pay [id number] Social History Date Type Detail Facility Start: 01-05-2022 End: 06-17-2024 Tobacco smoking status MOIS Smoker (finding) [facility] Start: 1990 Sex Assigned At Female F [facility] Start: 01-03-2023 Tobacco smoking stat [facility] Never smoked tobacco (finding) [facility] Start: 03-09-2024 Sex Assigned At N [facility] [employer] Other Start: 10-06-2010 Tobacco smoking stat [facility] Smokes tobacco daily [facility] Start: 10-06-2010 End: 05-21-2021 History of tobacco use Cigarette Smoker [facility] Start: 03-09-2024 Tobacco use and exposure Smokeless tobacco non-user [facility] Start: 06-29-2024 End: 07-19-2024 Alcoholic beverage intake Ex-drinker (finding) [facility] Start: 03-09-2024 History of Social function [facility] Start: 04-13-2023 Education 13 [facility] Start: 04-13-2023 Alcohol Comment Alcohol: 1 or 2 drinks on typical day/monthly or less. Caffeine: 1 bottle pop daily; 2-3 cups/day coffee [facility] Start: 1991 Sex assigned at Not on file [facility] History of Present illness Narrative 07-19-2024 Tita Stoll LPN - 07/19/2024 1:10 PM EDT Note Date & Type Note Facility 07-19-2024 History of Presen t illness Narrative Reason for Appointment: Patient ID: Breana John is a 33 y.o. female who presents for Infertility Patient presents today for Consult appointment. MEDICATIONS Current Outpatient Medications Medication Instructions ibuprofen 800 mg, Oral, 3 times daily PRN ALLERGIES No Known Allergies PROBLEMS Active Ambulatory Problems Diagnosis Date Noted Dysmenorrhea 03/11/2023 Menorrhagia with irregular cycle 03/11/2023 Missed period 03/11/2023 Nausea and vomiting 03/11/2023 Pain in female genitalia on intercourse 03/11/2023 Pain in pelvis 03/11/2023 Scar of skin 03/11/2023 Resolved Ambulatory Problems Diagnosis Date Noted No Resolved Ambulatory Problems Past Medical History: Diagnosis Date Anxiety Asthma (CMS/HCC) Dyspareunia in female Endometriosis Folliculitis Hematuria Miscarriage PID (acute pelvic inflammatory disease) Trichomoniasis 2012 HISTORY PAST MEDICAL HISTORY SOCIAL HISTORY Past Medical History: Diagnosis Date Anxiety Asthma (CMS/HCC) Dysmenorrhea Dyspareunia in female Endometriosis Folliculitis Hematuria Miscarriage PID (acute pelvic inflammatory disease) Trichomoniasis 2012 Social History Tobacco Use Smoking status: Every Day Current packs/day: 0.00 Types: Cigarettes Start date: 10/06/2010 Last attempt to quit: 05/21/2021 Years since quittin.1 Smokeless tobacco: Never Vaping Use Vaping status: Every Day Substance Use Topics Alcohol use: Not Currently Comment: Alcohol: 1 or 2 drinks on typical day/monthly or less. Caffeine: 1 bottle pop daily; 2-3 cups/day coffee Drug use: Never FAMILY HISTORY Family History Problem Relation Name Age of Onset Diabetes Mother Patricia case borderline Other (Respiratory issues) Mother Patricia case Asthma Mother Patricia case Bipolar disorder Father Melanoma Father Bipolar disorder Sister Bipolar disorder Brother Hypertension Maternal Grandmother Corin case Diabetes Maternal Grandmother Corin case Lung cancer Maternal Grandfather Throat cancer Maternal Grandfather Bipolar disorder Other Maternal uncle No Known Problems Son (3) SURGICAL HISTORY Past Surgical History: Procedure Laterality Date SECTION, LOW TRANSVERSE x3 : 10/23/2010, 10/02/2015, 05/16/2017 DILATION AND CURETTAGE OF UTERUS EXPLORATORY LAPAROTOMY 02/19/2021 Dr. Hester LAPAROSCOPY DIAGNOSTIC / BIOPSY / ASPIRATION / LYSIS 03/05/2024 OTHER SURGICAL HISTORY age 9- kelsea removed from abdomen PAP SMEAR 11/14/2020 Normal REVIEW OF SYSTEMS Review of Systems: Review of Systems All other systems reviewed and are negative. OBJECTIVE Objective: Physical Exam Constitutional: Appearance: Normal appearance. She is well-developed. Cardiovascular: Rate and Rhythm: Normal rate and regular rhythm. Pulmonary: Effort: Pulmonary effort is normal. Breath sounds: Normal breath sounds. Abdominal: General: Bowel sounds are normal. There is no distension. Palpations: Abdomen is soft. Tenderness: There is no abdominal tenderness. There is no guarding or rebound. Musculoskeletal: General: No swelling. Normal range of motion. Right lower leg: No edema. Left lower leg: No edema. Neurological: Mental Status: She is alert and oriented to person, place, and time. Skin: General: Skin is warm and dry. Psychiatric: Mood and Affect: Mood normal. Behavior: Behavior normal. Vitals and nursing note reviewed. Exam conducted with a hair or beauty salon manager present. Vitals: Estimated body mass index is 22.5 kg/m as calculated from the following: Height as of 03/09/24: 5' 3 . Weight as of this encounter: 127 lb. BP: 110/60 Patient's last menstrual period was 07/06/2024. ASSESSMENT & PLAN ICD-10-CM 1. Female infertility N97.9 Patient presents today to discuss fertility. Patient was given a standing lab order and ultrasound to have obtained. Patient was instructed to call the office once menstrual cycle begins so femara can be called into patients pharmacy. Patient has been instructed to take Femara on days 3-7 of cycle. On day 21 of cycle patient is to have progesterone labs drawn. Patient was advised to have intercourse on days 12, 14, 16, 18, and 20 of cycle. We will do three rounds of Femara and if patient has not conceived by then, we will perform HSG. Patient has voiced understanding and will call our office (gave direct extension) for any further questions/concerns. Follow Up: Schedule appointment in 5 months to follow up fertility. Documented by Tita Stoll LPN on behalf of: Dominic Hester DO documented in this encounter [facility] Healthcare Evaluation note 04-07-2023 Note Date & Type [...] right ear, unspecified type (ICD-10 - H60.501) [facility] Other Clinical Note 01-17-2023 Note Date & [...] products of conception were removed using an 8-[place] suction curette. Excellent hemostasis was noted. The patient tolerated the procedure well. Sponge, lap, and needle counts were correct x 2. All instruments were then removed from the patient's vagina. The patient was taken to the Recovery Room in stable condition. ?? [facility] Clinical Note 07-29-2022 Note Date & [...] region. ANESTHESIA: General. SURGEON: Dominic Hester D.O. [employer] COATING MACHINE SETTER: ADAN Flores URINE OUTPUT: Yellow and clear. [...] to Recovery Room in stable condition. [facility] Clinical Note 05-16-2020 Note Date & [...] Locations R1: This test was performed at: [facility], [address] [place] [address], [id number] , , [facility] Comment on above: Performed By: #### 1 [id number] ####[facility] [id number] [place] [address] Clinical Note 05-14-2020 Note Date & Type Note Facility 05-14-2020 Note Call received from /s, bladder not full. [place] catheter education provided to patient, agrees to insertion at this time. [facility] Evaluation note Note Date & Type Note Facility Evaluation note No assessment information availa [facility] Work Phone: Evaluation note Note Date & Type Note Facility Evaluation note Diagnosis Female infertility Female infertility of unspecified origin Anovulation Female infertility associated with anovulation documented in this encounter [facility] Hospital Discharge instructions Note Date & Type Note Facility Hospital Discharge instructions Additional Instructions Keep that area clean and dry Avoid putting any adhesives to area affected Take antibiotic as instructed until gone Clean with 9 deodorized soap Follow with your surgeon on Friday Return here if any problems persist or worsen including fever, chills or any other concerns [facility] Work Phone: Hospital Discharge instructions Note Date & Type Note Facility Hospital Discharge instructions Additional Instructions It is important you follow-up with your [facility] call for appointment. Please return here if you develop any fevers, chills, shortness of breath, numbness, tingling, unilateral weakness or any other concerns [facility] Work Phone: Summary Purpose Family History No Family History Records FoundNo Family History Records FoundNo Family History Records FoundNo Family History Records Found Advance Directives Advance Directive Response Recorded Date/ Time Advance Directives No June 1:52pm Chief Complaint and Reason for Visit Chief Complaint R10.2 Chief Complaint R10.2 Surgical site issues Chief Complaint abd pains Chief Complaint abd pains R10.30 R10.2 Chief Complaint R10.2 n92.6 Chief Complaint n92.6 abd pain Additional Source Comments INFORMATION SOURCE (unrecogn ized section and content) DATE CREATED AUTHOR 04/20/2021 [facility] DATE CREATED AUTHOR AUTHOR'S ORGANIZ ATION 01/23/2023 [facility] DATE CREATED AUTHOR AUTHOR'S ORGANIZ ATION 06/19/2024 [facility] DATE CREATED AUTHOR AUTHOR'S ORGANIZ ATION 07/21/2024 [facility] EP[employer] Care Teams (unrecognized sec tion and content) Team Status: Inactive Member Role Status Dates Naomy Garcia RAILROAD PURCHASING AGENT-C Primary Care Provider Active Dominic Hester Attending Provider Active Team Status: Active Member Role Status Dates Naomy Garcia RAILROAD PURCHASING AGENT-C Primary Care Provider Active Team Status: Inactive Member Role Status Dates Naomy Garcia RAILROAD PURCHASING AGENT-C Primary Care Provider Active Monika Camarillo APRN Emergency Provider Active Team Status: Inactive Member Role Status Dates Naomy Garcia RAILROAD PURCHASING AGENT-C Primary Care Provider Active Sylvia Romero PA-C Attending Provider Active Team Status: Inactive Member Role Status Dates Naomy Garcia RAILROAD PURCHASING AGENT-C Primary Care Provider Active S tart: February 09, 2024 End: February 09, 2024 Dominic Hester Attending Provider Active Start: Stephanie solomon 2023 End: February 09, 2024 Team Status: Active Member Role Status Dates PHYSICIAN NO FAMILY Primary Care Provider Active Team Status: Inactive Member Role Status Dates Naomy Garcia RAILROAD PURCHASING AGENT-C Primary Care Provider Active S tart: February 09, 2024 End: February 09, 2024 Dominic Hester DO Attending Provider Active Start : February 09, 2024 End: February 09, 2024 Team Status: Inactive Member Role Status Dates Dominic Hester DO Attending Provider Active Start : April 24, 2024 End: April 24, 2024 PHYSICIAN NO FAMILY Primary Care Provider Active Start: April 24, 2024 End: April 24, 2024 Team Status: Inactive Member Role Status Dates PHYSICIAN NO FAMILY Primary Care Provider Active Start: June 17, 2024 End: June 17, 2024 Malcolm Gaston DO Emergency Provider Active St art: June 17, 2024 End: June 17, 2024 Goals (unrecognized section and content) Goals may be documented in a n alternate sectionGoals may be documented in an alternate sectionGoals may be documented in an alternate sectionGoals may be documented in an alternate sectionNo InformationGoals may be documented in an alternate sectionGoals may be documented in an alternate sectionGoals may be documented in an alternate section REASON FOR VISIT (unrecogniz ed section and content) Reason Comments Infertility FOR RECORDS PERTAINING TO PATIENTS WHO ARE [...] BE BASED ON THE PRIMARY CLINICAL RECORDS. [employer] [facility]. provides no warranty or guarantee of the accuracy or completeness of information in this document.
[2024-08-24 04:08] LABS: Progesterone 21.4 ng/mL (.)
== END 2024-08-23 13:54 | disposition home or self-care (01) ==
LOC: LAB 13:56
PROVIDERS: Visit Provider Obstetrics & Gynecology
DX: N97.0 Female infertility associated with anovulation (principal)
CPT/HCPCS: 36415; 84144

== ENCOUNTER 2024-09-06 10:30 | Outpatient (OUT) | payer OTHER, SELFPAY ==
--- OUTSIDE RECORDS SUMMARY | 2024-09-06 10:48 | XMS_ITS | CCD ---
Author Organization [facility] Care Team Providers Care Neck Cutter Name Role Phone ROBBIN Garcia Primary Care Provider Dominic Hester Attending Provider Domiinc Hester Attending Provider [phone] RADHA [place] Emergency Provider [phone] ROBBIN Garcia Primary Care Provider RADHA [place] [...] Admitting Unavailable ASHLEIGH ., FANG MCKENZIE Consulting Unavailvee e LOPEZ ZARAGOZA Consulting Unavailable ARLETH ., ROGELIO Attending Unavailable ARLETH ., ROGELIO Admitting Unavailable [place], DR TOR Conrad Consulting Unavailable MISC, DR CARRILLO Primary Care Unavailable ARLETH ., ROGELIO Consulting Unavailable DILIA Romero Attending Provider Dutch Mendez Unavailable ROBBIN Garcia Primary Care Provider Mir, Dominic Attending Provider Mir, DO Dominic Attending Provider [phone] NO FAMILY, PHYSICIAN Primary Care Provider Unava ilable Mir, DO Dominic Attending Provider [phone] DO Malcolm Gaston Emergency Provider Mir, [...] DOMINIC Attending Unavailable Unavailable Primary Care Provider UnavailSylvia Chung Unavailable Medications Current Medications Medication Drug Class(es) Dates [...] day Active ibuprofen 600 mg oral tablet (5 sources) Nonsteroidal Anti-inflammatory Drug Start: 04-07-2023 take [...] day for 7 days Apr, Active Vit No.112-Trvp-Udeyc ( Vitamin) 27 mg iron- 800 mcg tablet (5 sources) Start: 01-03-2023 Vit No.520-Imth-Xen ic ( Vitamin) 27 mg iron- 800 [...] every four to six hours Hydrocodone-Acetami nophen ([place]) 5-325 mg tablet Discontinued 1 TAB PO EVERY 4-6 HOURS 3 May 14, 2019 June 09, 2019 9:24pm Start: 06-25-2017 End: 01-31-2018 take 1 tablet by mouth every four to six hours Hydrocodone-Acetaminophen ([place]) 5-325 mg tablet Discontinued 1 TAB PO EVERY 4-6 HOURS June 25, 2017 January 31, 2018 4:07pm [id number] 200 actuat albuterol 0.09 mg/actuat metered dose [...] [Dental caries, unspecified] 08-18-2022 Episodic Female infertility (7 sources) Female infertility; Translations: [Female infertility, unspecified] [...] Onset: 01-06-2023 Other aftercare (1 source) Other long-term (current) drug therapy; Translations: [OTH FUNERAL PROFESSIONAL CURRENT DRUG THERAPY] Onset: 01-06-2023 Episodic Other [...] Onset: 07-31-2022 Chronic Other female genital disorders (4 sources) Pain in female genitalia on intercourse; [...] Onset: 05-28-2022 10-30-2020 Episodic Nausea and vomiting (4 sources) Nausea and vomiting; Translations: [Nausea with vomiting, unspecified] Onset: 03-11-2023 03-11-2023 Episodic Other gastrointestinal disorders (1 source) Peritoneal adhesions (postprocedural) (postinfection); Translations: [PERITONEAL ADHES POSTPROC POSTINF] Onset: 07-31-2022 Episodic Other gastrointestinal disorders (1 source) Intra-abdominal and pelvic swelling, mass and lump, unspecified site; Translations: [INTRA-ABD PELV SWELL MASS LUMP] Onset: 07-31-2022 Episodic Other skin disorders (4 sources) Scar of skin; Translations: [Scar conditions and fibrosis of skin] Onset: 03-11-2023 03-11-2023 Episodic Results Test Name Value Interpretation Reference Range Facility ALL PROGESTERONEon 4 PROGESTERONE 21.4 ng/mL . [facility] Comment on above: Follicular phase 0.1 - 0.9 Luteal phase 1.8 - 23.9 Ovulation phase 0.1 - 12.0 First trimester 11.0 - 44.3 Second trimester 25.4 - 83.3 Third trimester 58.7 - 214.0 Postmenopausal 0.0 - 0.1 Performed at: [facility] [place] [id number] Limnologist: Lebron Manzo PhD, Phone: [phone] [facility] Alanine aminotransferase [En zymatic activity/volume] in Serum or PlasmaOrdered By: PROVIDER TEMP on 06-17-2024 ALT [Catalytic activity/Vol] 15 U/L Normal 7-52 [facility] Comment on above: Performed By: #### B MP, CBC, LIPASE, HEPATIC #### [facility] [address] Albumin [Mass/volume] in Ser um or Plasma by Bromocresol green (BCG) dye binding methoOrdered By: PROVIDER TEMP on 06-17-2024 Albumin BCG dye [Mass/Vol] 4.5 g/dL 3.5-5.7 [facility] Alkaline phosphatase [Enzyma tic activity/volume] in Serum or PlasmaOrdered By: PROVIDER TEMP on 06-17-2024 ALP [Catalytic activity/Vol] 58 U/L Normal 34-104 [facility] Comment on above: Performed By: #### B MP, CBC, LIPASE, HEPATIC #### [facility] [address] [place] [address] [place] Aspartate aminotransferase [ Enzymatic activity/volume] in Serum or PlasmaOrdered By: PROVIDER TEMP on 06-17-2024 AST [Catalytic activity/Vol] 17 U/L Normal 13-39 [facility] Comment on above: Performed By: #### B MP, CBC, LIPASE, HEPATIC #### [address] Automated basophil %Ordered By: PROVIDER TEMP on 06-17-2024 Basophils/100 WBC (Bld) 1.1 % Normal . [facility] Comment on above: Performed By: #### B MP, CBC, LIPASE, HEPATIC #### [address] Automated basophil countOrde red By: PROVIDER TEMP on 06-17-2024 Basophils (Bld) [#/Vol] 0.0 10*3/uL Normal 0.0-0.2 [facility] Comment on above: Result Comment: PERF ORMED BY: [place] [address] PATHOLOGIST NETWORK ARCHITECT MANAGER KHANG WEEKS M.D. Performed By: #### B MP, CBC, LIPASE, HEPATIC #### [address] Automated blood monocyte cou ntOrdered By: PROVIDER TEMP on 06-17-2024 Monocytes (Bld) [#/Vol] 0.3 10*3/uL Normal 0.0-0.8 [facility] Comment on above: Performed By: #### B MP, CBC, LIPASE, HEPATIC #### [address] Automated eosinophil %Ordere d By: PROVIDER TEMP on 06-17-2024 Eosinophils/100 WBC (Bld) 9.5 % Normal . [facility] Comment on above: Performed By: #### B MP, CBC, LIPASE, HEPATIC #### [address] Automated eosinophil countOr dered By: PROVIDER TEMP on 06-17-2024 Eosinophils (Bld) [#/Vol] 0.4 10*3/uL Normal 0.0-0.45 [facility] Comment on above: Performed By: #### B MP, CBC, LIPASE, HEPATIC #### [place] [address] [place] Automated monocyte %Ordered By: PROVIDER TEMP on 06-17-2024 Monocytes/100 WBC (Bld) 7.1 % Normal . [facility] Comment on above: Performed By: #### B MP, CBC, LIPASE, HEPATIC #### [facility] [address] Automated neutrophil %Ordere d By: PROVIDER TEMP on 06-17-2024 Neutrophils/100 WBC (Bld) 51.1 % Normal . [facility] Comment on above: Performed By: #### B MP, CBC, LIPASE, HEPATIC #### [facility] [address] Basic Metabolic Panelon 06-06 Creatinine Clr Calc Pharmacy 78.60 Normal [facility] Comment on above: Performed By: #### B MP, CBC, LIPASE, HEPATIC #### [facility] [address] GFR/1.73 sq M.predicted MDRD (S/P/Bld) [Vol rate/Area] mL/min/{1.73_m2} Normal [facility] Comment on above: Performed By: #### B MP, CBC, LIPASE, HEPATIC #### [facility] [address] Bilirubin Test strip Ql (U)O rdered By: PROVIDER TEMP on 06-17-2024 Bilirubin Ql (U) Negative Negative [facility] Bilirubin.direct [Mass/volum e] in Serum or PlasmaOrdered By: PROVIDER TEMP on 06-17-2024 Bilirubin.direct [Mass/Vol] 0.20 mg/dL High 0.03-0.18 [facility] Bilirubin.total [Mass/volume ] in Serum or PlasmaOrdered By: PROVIDER TEMP on 06-17-2024 Bilirubin [Mass/Vol] 0.8 mg/dL Normal 0.3-1.0 [facility] Comment on above: Performed By: #### B MP, CBC, LIPASE, HEPATIC #### [facility] [address] Calcium [Mass/volume] in Ser um or PlasmaOrdered By: PROVIDER TEMP on 06-17-2024 Calcium [Mass/Vol] 9.2 mg/dL Normal 8.6-10.3 [facility] Comment on above: Performed By: #### B MP, CBC, LIPASE, HEPATIC #### [facility] [address] Carbon dioxide, total [Moles /volume] in Serum or PlasmaOrdered By: PROVIDER TEMP on 06-17-2024 CO2 [Moles/Vol] 27.0 mmol/L Normal 21.0-31.0 [facility] Comment on above: Performed By: #### B MP, CBC, LIPASE, HEPATIC #### [address] Chloride [Moles/volume] in S mehdi or PlasmaOrdered By: PROVIDER TEMP on 06-17-2024 Chloride [Moles/Vol] 106 mmol/L Normal 98-107 [facility] Comment on above: Performed By: #### B MP, CBC, LIPASE, HEPATIC #### [address] Color of Urine by AutoOrdere d By: PROVIDER TEMP on 06-17-2024 Color (U) Light-yellow Normal Yellow [facility] Comment on above: Order Comment: Name Collection Type:: Clean-Voided Midstream Performed By: #### U HCG, UA #### [address] Complete Blood Count Auto Di ffon 06-17-2024 Mean Corpuscular HGB Conc 34.6 g/dL Normal 32.0-35.0 [facility] Comment on above: Performed By: #### B MP, CBC, LIPASE, HEPATIC #### [place] [address] [place] Monocytes/100 WBC (Bld) 16.54 % Normal 0.00-20.00 [facility] Comment on above: Performed By: #### B MP, CBC, LIPASE, HEPATIC #### [place] [address] [place] NRBC% 0.1 /100{WBC} Normal 0-0.5 [facility] Comment on above: Performed By: #### B MP, CBC, LIPASE, HEPATIC #### [address] Creatinine [Mass/volume] in Serum or PlasmaOrdered By: PROVIDER TEMP on 06-17-2024 Creatinine [Mass/Vol] 0.85 mg/dL Normal 0.60-1.20 [facility] Comment on above: Performed By: #### B MP, CBC, LIPASE, HEPATIC #### [address] Erythrocyte distribution wid th [Ratio] by Automated countOrdered By: PROVIDER TEMP on 06-17-2024 Erythrocyte distribution width (RBC) [Ratio] 12.7 % Normal 11.9-15.3 [facility] Comment on above: Performed By: #### B MP, CBC, LIPASE, HEPATIC #### [address] Erythrocytes [#/volume] in B lood by Automated countOrdered By: PROVIDER TEMP on 06-17-2024 RBC (Bld) [#/Vol] 4.50 10*6/uL Normal 3.60-5.00 [facility] Comment on above: Performed By: #### B MP, CBC, LIPASE, HEPATIC #### [address] Glucose [Mass/volume] in Ser um or PlasmaOrdered By: PROVIDER TEMP on 06-17-2024 Glucose [Mass/Vol] 86 mg/dL Normal 70-100 [facility] Comment on above: ADA recommended refe rence rangeRandom Glucose Reference Range is dependent on time and content of last meal. Glucose of more than 200 mg/dL in a nonstressed, ambulatory subject supports the diagnosis of Diabetes Mellitus. Result Comment: [place] Glucose Reference Range is dependent on time and content of last meal. Glucose of more than 200 mg/dL in a nonstressed, ambulatory subject supports the diagnosis of Diabetes Mellitus. ADA recommended reference range Performed By: #### B MP, CBC, LIPASE, HEPATIC #### [place] [address] Glucose [Mass/volume] in Uri ne by Test stripOrdered By: PROVIDER TEMP on 06-17-2024 Glucose Test strip (U) [Mass/Vol] Normal mg/dL Normal [facility] HCG ( test) IA.rapi d Ql (U)Ordered By: PROVIDER TEMP on 06-17-2024 HCG ( test) Ql (U) Negative [facility] HCG,Urineon 06-17-2024 Beta HCG ( test) Ql (U) Negative Normal [facility] Comment on above: Order Comment: Name Collection Type:: Clean-Voided Midstream Result Comment: PERF ORMED BY: [place] [address] PATHOLOGIST NETWORK ARCHITECT MANAGER KHANG WEEKS M.D. Performed By: #### U HCG, UA #### [address] Hematocrit [Volume Fraction] of Blood by Automated countOrdered By: PROVIDER TEMP on 06-17-2024 Hematocrit (Bld) [Volume fraction] 41.7 % Normal 34.0-46.4 [facility] Comment on above: Performed By: #### B MP, CBC, LIPASE, HEPATIC #### [address] Hemoglobin Test strip Ql (U) Ordered By: PROVIDER TEMP on 06-17-2024 Hemoglobin Ql (U) Negative Negative [facility] Hemoglobin [Mass/volume] in BloodOrdered By: PROVIDER TEMP on 06-17-2024 Hemoglobin (Bld) [Mass/Vol] 14.4 g/dL Normal 11.8-15.4 [facility] Comment on above: Performed By: #### B MP, CBC, LIPASE, HEPATIC #### [address] Hepatic Panelon 06-17-2024 Albumin [Mass/Vol] 4.5 g/dL Normal 3.5-5.7 [facility] Comment on above: Performed By: #### B MP, CBC, LIPASE, HEPATIC #### [address] [place] [address] [place] Bilirubin,Indirect 0.6 mg/dL Normal [facility] Comment on above: Performed By: #### B MP, CBC, LIPASE, HEPATIC #### [facility] [address] Bilirubin.indirect [Mass/Vol] 0.20 mg/dL High 0.03-0.18 [facility] Comment on above: Performed By: #### B MP, CBC, LIPASE, HEPATIC #### [address] Ketones [Presence] in Urine by Test stripOrdered By: PROVIDER TEMP on 06-17-2024 Ketones Ql (U) 1+ High Negative [facility] Comment on above: Order Comment: Name Collection Type:: Clean-Voided Midstream Performed By: #### U HCG, UA #### [address] Leukocyte esterase [Presence ] in Urine by Test stripOrdered By: PROVIDER TEMP on 06-17-2024 Leukocyte esterase Test strip Ql (U) Negative Normal Negative [facility] Comment on above: Order Comment: Name Collection Type:: Clean-Voided Midstream Performed By: #### U HCG, UA #### [address] Leukocytes [#/volume] correc ira for nucleated erythrocytes in Blood by Automated counOrdered By: PROVIDER TEMP on 06-17-2024 WBC corrected for nucl RBC Auto (Bld) [#/Vol] 4.4 10*3/uL 3.8-11.6 [facility] Leukocytes [#/volume] in Blo od by Automated countOrdered By: PROVIDER TEMP on 06-17-2024 WBC (Bld) [#/Vol] 4.4 10*3/uL Normal 3.8-11.6 [facility] Comment on above: Performed By: #### B MP, CBC, LIPASE, HEPATIC #### [facility] [address] [place] [address] [place] Lipase [Enzymatic activity/v olume] in Serum or PlasmaOrdered By: PROVIDER TEMP on 06-17-2024 Lipase [Catalytic activity/Vol] 16.0 U/L Normal 11.0-82.0 [facility] Comment on above: Result Comment: PERF ORMED BY: [place] [address] PATHOLOGIST NETWORK ARCHITECT MANAGER KHANG WEEKS M.D. Performed By: #### B MP, CBC, LIPASE, HEPATIC #### [facility] [address] [place] [address] Lymphocytes [#/volume] in Bl ood by Automated countOrdered By: PROVIDER TEMP on 06-17-2024 Lymphocytes (Bld) [#/Vol] 1.4 10*3/uL Normal 1.00-4.8 [facility] Comment on above: Performed By: #### B MP, CBC, LIPASE, HEPATIC #### [facility] [address] [place] [address] Lymphocytes/100 leukocytes i n Blood by Automated countOrdered By: PROVIDER TEMP on 06-17-2024 Lymphocytes/100 WBC (Bld) 31.2 % Normal . [facility] Comment on above: Performed By: #### B MP, CBC, LIPASE, HEPATIC #### [facility] [address] [place] [address] MCH [Entitic mass] by Automa ira countOrdered By: PROVIDER TEMP on 06-17-2024 MCH (RBC) [Entitic mass] 32.1 pg Normal 24.7-34.3 [facility] Comment on above: Performed By: #### B MP, CBC, LIPASE, HEPATIC #### [facility] [address] [place] [address] MCHC Auto (RBC) [Mass/Vol]Or dered By: PROVIDER TEMP on 06-17-2024 MCHC (RBC) [Mass/Vol] 34.6 g/dL 32.0-35.0 [facility] MCV [Entitic volume] by Auto mated countOrdered By: PROVIDER TEMP on 06-17-2024 MCV (RBC) [Entitic vol] 92.6 fL Normal 80-100 [facility] Comment on above: Performed By: #### B MP, CBC, LIPASE, HEPATIC #### [facility] [address] [place] [address] [place] Monocyte distribution width [Entitic volume] in Blood by AutomatedOrdered By: PROVIDER TEMP on 06-17-2024 Monocyte distribution width Auto (Bld) [Entitic vol] 16.54 % 0.00-20.00 [facility] Neutrophils [#/volume] in Bl ood by Automated countOrdered By: PROVIDER TEMP on 06-17-2024 Neutrophils (Bld) [#/Vol] 2.2 10*3/uL Normal 1.8-7.7 [facility] Comment on above: Performed By: #### B MP, CBC, LIPASE, HEPATIC #### [facility] [address] Nitrite Test strip Ql (U)Ord ered By: PROVIDER TEMP on 06-17-2024 Nitrite Ql (U) Negative Negative [facility] No Panel InformationOrdered By: PROVIDER TEMP on 06-17-2024 Estimated GFR (CKD-EPI) > 60.0 mL/Min [facility] Creatinine Clearance (Chem 78.60 [facility] Nucleated erythrocytes [Pres ence] in Blood by Automated countOrdered By: PROVIDER TEMP on 06-17-2024 Nucleated RBC Auto Ql (Bld) 0.1 /100{WBC} 0-0.5 [facility] Platelet mean volume [Entiti c volume] in Blood by Automated countOrdered By: PROVIDER TEMP on 06-17-2024 Platelet mean volume (Bld) [Entitic vol] 7.5 fL Normal 6.3-10.7 [facility] Comment on above: Performed By: #### B MP, CBC, LIPASE, HEPATIC #### [facility] [address] [place] [address] [place] Platelets [#/volume] in Bloo d by Automated countOrdered By: PROVIDER TEMP on 06-17-2024 Platelets (Bld) [#/Vol] 210 10*3/uL Normal 150-450 [facility] Comment on above: Performed By: #### B MP, CBC, LIPASE, HEPATIC #### [facility] [address] Potassium [Moles/volume] in Serum or PlasmaOrdered By: PROVIDER TEMP on 06-17-2024 Potassium [Moles/Vol] 3.6 mmol/L Normal 3.5-5.1 [facility] Comment on above: Performed By: #### B MP, CBC, LIPASE, HEPATIC #### [facility] [address] [place] [address] Protein Test strip (U) [Mass /Vol]Ordered By: PROVIDER TEMP on 06-17-2024 Protein (U) [Mass/Vol] Negative Negative [facility] Protein [Mass/volume] in Ser um or PlasmaOrdered By: PROVIDER TEMP on 06-17-2024 Protein [Mass/Vol] 7.0 g/dL Normal 6.4-8.9 [facility] Comment on above: Performed By: #### B MP, CBC, LIPASE, HEPATIC #### [facility] [address] [place] [address] Serum globulin measurement b y calculation (mass/volume)Ordered By: PROVIDER TEMP on 06-17-2024 Globulin (S) [Mass/Vol] 2.5 g/dL Normal [facility] Comment on above: Performed By: #### B MP, CBC, LIPASE, HEPATIC #### [address] Serum or plasma albumin/glob ulin mass ratioOrdered By: PROVIDER TEMP on 06-17-2024 Albumin/Globulin [Mass ratio] 1.8 {ratio} [facility] Comment on above: Performed By: #### B MP, CBC, LIPASE, HEPATIC #### [facility] [address] [place] [address] Serum or plasma anion gap de terminationOrdered By: PROVIDER TEMP on 06-17-2024 Anion gap [Moles/Vol] 6.6 mmol/L Normal 6.0-15.0 [facility] Comment on above: Performed By: #### B MP, CBC, LIPASE, HEPATIC #### [facility] [address] [place] [address] Serum or plasma non-glucuron idated bilirubin measurement (mass/volume)Ordered By: PROVIDER TEMP on 06-17-2024 Bilirubin.indirect [Mass/Vol] 0.6 mg/dL [facility] Sodium [Moles/volume] in Ser um or PlasmaOrdered By: PROVIDER TEMP on 06-17-2024 Sodium [Moles/Vol] 136 mmol/L Normal 136-145 [facility] Comment on above: Performed By: #### B MP, CBC, LIPASE, HEPATIC #### [facility] [address] Specific gravity Test strip (U) [Rel density]Ordered By: PROVIDER TEMP on 06-17-2024 Specific gravity (U) [Rel density] 1.018 1.001-1.030 [facility] Urea nitrogen [Mass/volume] in Serum or PlasmaOrdered By: PROVIDER TEMP on 06-17-2024 Urea nitrogen [Mass/Vol] 9 mg/dL Normal 7-25 [facility] Comment on above: Performed By: #### B MP, CBC, LIPASE, HEPATIC #### [facility] [address] [place] [address] [place] Urinalysison 06-17-2024 Bilirubin,Urine Negative Normal Negative [facility] Comment on above: Order Comment: Name Collection Type:: Clean-Voided Midstream Performed By: #### U HCG, UA #### [facility] [address] [place] [id number] [place] Glucose Ql (U) Normal Normal Normal [facility] Comment on above: Order Comment: Name Collection Type:: Clean-Voided Midstream Performed By: #### U HCG, UA #### [facility] [address] [place] [id number] [place] Nitrite,Urine Negative Normal Negative [facility] Comment on above: Order Comment: Name Collection Type:: Clean-Voided Midstream Performed By: #### U HCG, UA #### [facility] [address] [place] [id number] [place] Occult Blood,Urine Negative Normal Negative [facility] Comment on above: Order Comment: Name Collection Type:: Clean-Voided Midstream Performed By: #### U HCG, UA #### [facility] [address] Protein,Urine Negative Normal Negative [facility] Comment on above: Order Comment: Name Collection Type:: Clean-Voided Midstream Performed By: #### U HCG, UA #### [facility] [address] [place] [address] Specificy [place],Urine 1.018 Normal 1.001-1.030 [facility] Comment on above: Order Comment: Name Collection Type:: Clean-Voided Midstream Performed By: #### U HCG, UA #### [address] Urobilinogen,Urine Normal Normal Normal [facility] Comment on above: Order Comment: Name Collection Type:: Clean-Voided Midstream Performed By: #### U HCG, UA #### [address] Urine appearanceOrdered By: PROVIDER TEMP on 06-17-2024 Appearance (U) Clear Normal Clear [facility] Comment on above: Order Comment: Name Collection Type:: Clean-Voided Midstream Performed By: #### U HCG, UA #### [address] Urobilinogen Test strip (U) [Mass/Vol]Ordered By: PROVIDER TEMP on 06-17-2024 Urobilinogen (U) [Mass/Vol] Normal mg/dL Normal [facility] pH of Urine by Test stripOrd ered By: PROVIDER TEMP on 06-17-2024 pH (U) 6.0 [pH] Normal 5.0-9.0 [facility] Comment on above: Order Comment: Name Collection Type:: Clean-Voided Midstream Performed By: #### U HCG, UA #### [address] Choriogonadotropin.beta subu nit [Units/volume] in Serum or PlasmaOrdered By: Dominic Hester on 04-24-2024 HCG.beta subunit Qn m[IU]/mL [facility] Comment on above: Approximate Approxim ate hCG Gestational Age Range (mIU/ml) (weeks)0.2-1 5-50 1-2 50-500 2-3 100-5,000 3-4 500-10,000 4-5 1,000-50,000 5-6 10,000-100,000 6-8 15,000-200,000 8-12 10,000-100,000 HCG,Quantitativeon 4 HCG,Quantitative < 0.60 Normal [facility] Comment on above: Result Comment: Appr oximate Approximate hCG Gestational Age Range (mIU/ml) (weeks) 0.2-1 5-50 1-2 50-500 2-3 100-5,000 3-4 500-10,000 4-5 1,000-50,000 5-6 10,000-100,000 6-8 15,000-200,000 8-12 10,000-100,000 PERFORMED BY: [place] [address] PATHOLOGIST NETWORK ARCHITECT MANAGER KHANG WEEKS M.D. Performed By: #### H CGQNT #### [address] US transvaginalon 02-09-2024 US transvaginal [facility] [place] [address] [place] [address] Ultrasound Report Signed Patient: Breana John MR#: [id number] : 1990 Acct:[id number] Age/Sex: 33 / F ADM Date: 02/09/24 Loc: Room: Type: [facility] Attending Dr: Dominic Hester Ordering Provider: Dominic Hester Date of Service: 02/09/24 US/US transvaginal: PELVIC PAIN ([id number]) US/US pelvic complete: PELVIC PAIN Copies to: [...] Christine Mckeon M.D.02/09/2024 1:50 PM Dictation Location: [place] [address] Tech: Dipika Payne Transcribed By: SHANE 02/09/24 1350 Dictated By: Christine Mckeon MD 02/09/24 1342 Signed By: 02/09/24 1350 Normal [facility] Basophils Auto (Bld) [#/Vol] Ordered By: Sylvia Romero on 03-28-2023 Basophils (Bld) [#/Vol] 0.0 10*3/uL 0.0-0.2 [facility] Basophils/100 WBC Auto (Bld) Ordered By: Sylvia Romero on 03-28-2023 Basophils/100 WBC (Bld) 0.8 % . [facility] Choriogonadotropin.beta subu nit [Units/volume] in Serum or PlasmaOrdered By: Sylvia Romero on 03-28-2023 HCG.beta subunit Qn m[IU]/mL [facility] Comment on above: Approximate Approxim ate hCG Gestational Age Range (mIU/ml) (weeks)0.2-1 5-50 1-2 50-500 2-3 100-5,000 3-4 500-10,000 4-5 1,000-50,000 5-6 10,000-100,000 6-8 15,000-200,000 8-12 10,000-100,000 Eosinophils Auto (Bld) [#/Vo l]Ordered By: Sylvia Romero on 03-28-2023 Eosinophils (Bld) [#/Vol] 0.2 10*3/uL 0.0-0.45 [facility] Eosinophils/100 WBC Auto (Bl d)Ordered By: Sylvia Romero on 03-28-2023 Eosinophils/100 WBC (Bld) 4.7 % . [facility] Erythrocyte distribution wid th Auto (RBC) [Ratio]Ordered By: Sylvia Romero on 03-28-2023 Erythrocyte distribution width (RBC) [Ratio] 13.0 % 11.9-15.3 [facility] Hematocrit Auto (Bld) [Volum e fraction]Ordered By: Sylvia Romero on 03-28-2023 Hematocrit (Bld) [Volume fraction] 38.0 % 34.0-46.4 [facility] Hemoglobin [Mass/volume] in BloodOrdered By: Sylvia Romero on 03-28-2023 Hemoglobin (Bld) [Mass/Vol] 12.9 g/dL 11.8-15.4 [facility] Leukocytes [#/volume] correc ira for nucleated erythrocytes in Blood by Automated counOrdered By: Sylvia Romero on 03-28-2023 WBC corrected for nucl RBC Auto (Bld) [#/Vol] 4.1 10*3/uL 3.8-11.6 [facility] Lymphocytes Auto (Bld) [#/Vo l]Ordered By: Sylvia Romero on 03-28-2023 Lymphocytes (Bld) [#/Vol] 1.0 10*3/uL 1.00-4.8 [facility] Lymphocytes/100 WBC Auto (Bl d)Ordered By: Sylvia Romero on 03-28-2023 Lymphocytes/100 WBC (Bld) 23.9 % . [facility] MCH Auto (RBC) [Entitic mass ]Ordered By: Sylvia Romero on 03-28-2023 MCH (RBC) [Entitic mass] 31.3 pg 24.7-34.3 [facility] MCHC Auto (RBC) [Mass/Vol]Or dered By: Sylvia Romero on 03-28-2023 MCHC (RBC) [Mass/Vol] 33.9 g/dL 32.0-35.0 [facility] MCV Auto (RBC) [Entitic vol] Ordered By: Sylvia Romero on 03-28-2023 MCV (RBC) [Entitic vol] 92.3 fL 80-100 [facility] Monocytes Auto (Bld) [#/Vol] Ordered By: Sylvia Romero on 03-28-2023 Monocytes (Bld) [#/Vol] 0.3 10*3/uL 0.0-0.8 [facility] Monocytes/100 WBC Auto (Bld) Ordered By: Sylvia Romero on 03-28-2023 Monocytes/100 WBC (Bld) 7.5 % . [facility] Neutrophils Auto (Bld) [#/Vo l]Ordered By: Sylvia Romero on 03-28-2023 Neutrophils (Bld) [#/Vol] 2.6 10*3/uL 1.8-7.7 [facility] Neutrophils/100 WBC Auto (Bl d)Ordered By: Sylvia Romero on 03-28-2023 Neutrophils/100 WBC (Bld) 63.1 % . [facility] Nucleated erythrocytes [Pres ence] in Blood by Automated countOrdered By: Sylvia Romero on 03-28-2023 Nucleated RBC Auto Ql (Bld) 0.1 /100{WBC} 0-0.5 [facility] Platelet mean volume Auto (B ld) [Entitic vol]Ordered By: Sylvia oRmero on 03-28-2023 Platelet mean volume (Bld) [Entitic vol] 8.8 fL 6.3-10.7 [facility] Platelets Auto (Bld) [#/Vol] Ordered By: Sylvia Romero on 03-28-2023 Platelets (Bld) [#/Vol] 196 10*3/uL 150-450 [facility] Prolactin [Mass/volume] in S mehdi or PlasmaOrdered By: Sylvia Romero on 03-28-2023 Prolactin [Mass/Vol] 3.20 ng/mL 3.34-26.72 [facility] RBC Auto (Bld) [#/Vol]Ordere d By: Sylvia Romero on 03-28-2023 RBC (Bld) [#/Vol] 4.12 10*6/uL 3.60-5.00 [facility] Thyrotropin [Units/volume] i n Serum or PlasmaOrdered By: Sylvia Romero on 03-28-2023 TSH Qn 1.31 m[IU]/L 0.45-5.33 [facility] WBC Auto (Bld) [#/Vol]Ordere d By: Sylvia Romero on 03-28-2023 WBC (Bld) [#/Vol] 4.1 10*3/uL 3.8-11.6 [facility] US PREG TVon 01-20-2023 US [...] KENNEDY LEHMAN Date: 2023-01-19 23:22 Normal [facility] CBC AUTO DIFFon 01-17-2023 BASO # 0.0 103/ul Normal 0.0-0.1 [facility] Comment on above: Performed By: #### C ANJU PULIDO, SYLVIA #### [facility] [address] [place] [address] Dr. Lester Yen Basophils/100 WBC (Bld) 1.1 % Normal 0.2-2.0 [facility] Comment on above: Performed By: #### C ANJU PULIDO, SYLVIA #### [facility] [address] [place] [address] Dr. Lester Yen EO # 0.2 103/ul Normal 0.0-0.7 [facility] Comment on above: Performed By: #### C ANJU PULIDO, SYLVIA #### [facility] [address] [place] [address] Dr. Lester Yen Eosinophils/100 WBC (Bld) 5.4 % Normal 0.9-7.0 [facility] Comment on above: Performed By: #### C ANJU PULIDO, SYLVIA #### [facility] [address] [place] [address] Dr. Lester Yen Erythrocyte distribution width (RBC) [Ratio] 12.4 % Normal 11.0-15.0 [facility] Comment on above: Performed By: #### C BECKI PULIDOA, SYLVIA #### [facility] [address] [place] [address] Dr. Lester Yen Hematocrit (Bld) [Volume fraction] 37.7 % Normal 36.0-48.0 [facility] Comment on above: Performed By: #### C BECKI PULIDOA, SYLVIA #### [facility] [address] [place] [address] Dr. Lester Yen Hemoglobin (Bld) [Mass/Vol] 13.2 g/dL Normal 12.0-16.0 [facility] Comment on above: Performed By: #### C BECKI PULIDOA, SYLVIA #### [facility] [address] [place] [address] Dr. Lester Yen IG # 0.01 10e3/ul Normal 0.00-0.03 [facility] Comment on above: Performed By: #### C MP, LIPA, SYLVIA #### [facility] [address] [place] [address] Dr. Lester Yen IG % 0.3 % Normal 0.0-0.5 [facility] Comment on above: Performed By: #### C MP, LIPA, SYLVIA #### [facility] [address] [place] [address] Dr. Lester Yen LYMPH # 1.1 103/ul Critically low 1.2-3.8 [facility] Comment on above: Performed By: #### C MP LIPA, SYLVIA #### [facility] [address] [place] [address] Dr. Lester Yen Lymphocytes/100 WBC (Bld) 28.3 % Normal 20.5-60.0 [facility] Comment on above: Performed By: #### C MP LIPA, SYLVIA #### [facility] [address] [place] [address] Dr. Lester Yen MANUAL DIFF REQ NO Normal [facility] Comment on above: Performed By: #### C MP LIPA, SYLVIA #### [facility] [address] [place] [address] Dr. Lester Yen MCH (RBC) [Entitic mass] 31.5 pg Normal 26.7-34.0 [facility] Comment on above: Performed By: #### C MP LIPA, SYLVIA #### [facility] [address] [place] [address] Dr. Lester Yen MCHC (RBC) [Mass/Vol] 35.0 g/dL Normal 29.9-35.2 [facility] Comment on above: Performed By: #### C MP LIPA, SYLVIA #### [facility] [address] [place] [address] Dr. Lester Yen MCV (RBC) [Entitic vol] 90.0 fL Normal 81.0-99.0 [facility] Comment on above: Performed By: #### C MP, LIPA, SYLVIA #### [facility] [address] [place] [address] Dr. Lester Yen MONO # 0.3 103/ul Normal 0.3-0.8 [facility] Comment on above: Performed By: #### C ANJU PULIDO, SYLVIA #### [facility] [address] [address] [address] Lester Yen Monocytes/100 WBC (Bld) 9.2 % Normal 1.7-12.0 [facility] Comment on above: Performed By: #### C ANJU PULIDO, SYLVIA #### [facility] [address] [place] [address] Dr. Lester Yen NEUT # 2.1 103/ul Normal 1.4-6.5 [facility] Comment on above: Performed By: #### C ANJU PULIDO, SYLVIA #### [facility] [address] [place] [address] Dr. Lester Yen Neutrophils/100 WBC (Bld) 55.7 % Normal 43.0-75.0 [facility] Comment on above: Performed By: #### C ANJU PULIDO, SYLVIA #### [facility] [address] [place] [address] Dr. Lester Yen Platelet mean volume (Bld) [Entitic vol] 9.2 fL Critically low 9.5-13.5 [facility] Comment on above: Performed By: #### C ANJU PULIDO, SYLVIA #### [facility] [address] [place] [address] Dr. Lester Yen PLT 209 103/ul Normal 150-450 [facility] Comment on above: Performed By: #### C ANJU PULIDO, SYLVIA #### [facility] [address] [place] [address] Dr. Lester Yen RBC 4.19 106/ul Critically low 4.20-5.40 [facility] Comment on above: Performed By: #### C BECKI PULIDOA, SYLVIA #### [facility] [address] [place] [address] Dr. Lester Yen WBC 3.7 103/ul Critically low 4.0-11.0 [facility] Comment on above: Performed By: #### C ANJU PULIDO, SYLVIA #### [facility] [address] [place], [place] [address] Dr. Lester Yen TYPE AND SCREENon 01-17-2023 TYPE AND SCREEN Negative Normal [facility] Comment on above: Performed By: #### C ASHOK LIPA, SYLVIA #### [facility] [address] [place], [place] [address] Dr. Lester Yen Alanine aminotransferase [En zymatic activity/volume] in Serum or PlasmaOrdered By: Monika Camarillo on 01-03-2023 ALT [Catalytic activity/Vol] 13 U/L 7-52 [facility] Albumin [Mass/volume] in Ser um or Plasma by Bromocresol green (BCG) dye binding methoOrdered By: Monika Camarillo on 01-03-2023 Albumin BCG dye [Mass/Vol] 4.7 g/dL 3.5-5.7 [facility] Alkaline phosphatase [Enzyma tic activity/volume] in Serum or PlasmaOrdered By: Monika Camarillo on 01-03-2023 ALP [Catalytic activity/Vol] 47 U/L 34-104 [facility] Aspartate aminotransferase [ Enzymatic activity/volume] in Serum or PlasmaOrdered By: Monika Camarillo on 01-03-2023 AST [Catalytic activity/Vol] 15 U/L 13-39 [facility] Basophils Auto (Bld) [#/Vol] Ordered By: Monika Camarillo on 01-03-2023 Basophils (Bld) [#/Vol] 0.0 10*3/uL 0.0-0.2 [facility] Basophils/100 WBC Auto (Bld) Ordered By: Monika Camarillo on 01-03-2023 Basophils/100 WBC (Bld) 0.3 % . [facility] Bilirubin Test strip Ql (U)O rdered By: Monika Camarillo on 01-03-2023 Bilirubin Ql (U) Negative Negative [facility] Bilirubin.total [Mass/volume ] in Serum or PlasmaOrdered By: Monika Camarillo on 01-03-2023 Bilirubin [Mass/Vol] 0.8 mg/dL 0.3-1.0 [facility] Calcium [Mass/volume] in Ser um or PlasmaOrdered By: Monika Camarillo on 01-03-2023 Calcium [Mass/Vol] 9.2 mg/dL 8.6-10.3 [facility] Carbon dioxide, total [Moles /volume] in Serum or PlasmaOrdered By: Monika Camarillo on 01-03-2023 CO2 [Moles/Vol] 23.8 mmol/L 21.0-31.0 [facility] Chloride [Moles/volume] in S mehdi or PlasmaOrdered By: Monika Camarillo on 01-03-2023 Chloride [Moles/Vol] 105 mmol/L 98-107 [facility] Choriogonadotropin.beta subu nit [Units/volume] in Serum or PlasmaOrdered By: Monika Camarillo on 01-03-2023 [place] [address].00 m[IU]/mL [facility] Comment on above: Approximate Approxim ate hCG Gestational Age Range (mIU/ml) (weeks)0.2-1 5-50 1-2 50-500 2-3 100-5,000 3-4 500-10,000 4-5 1,000-50,000 5-6 10,000-100,000 6-8 15,000-200,000 8-12 10,000-100,000 Color Auto (U)Ordered By: Po Camarillo on 01-03-2023 Color (U) Yellow Yellow [facility] Creatinine [Mass/volume] in Serum or PlasmaOrdered By: Monika Camarillo on 01-03-2023 Creatinine [Mass/Vol] 0.71 mg/dL 0.60-1.20 [facility] ER URINE PROFILEon 3 Bilirubin Ql (U) Negative Normal NEGATIVE [facility] Comment on above: Performed By: #### E RUR #### [facility] [address] [place] [address] Dr. Lester Yen Clarity (U) CLEAR Normal CLEAR [facility] Comment on above: Performed By: #### E RUR #### [facility] [address] [address] [address] Lester Yen Color (U) LT. YELLOW Normal YELLOW [facility] Comment on above: Performed By: #### E RUR #### [facility] [address] [place] [address] Dr. Lester LEA A micrscopic examination will be performed if indicated. Normal [facility] Comment on above: Performed By: #### E RUR #### [facility] [address] [place] [address] Dr. Lester Yen Glucose Ql (U) Negative Normal NEGATIVE [facility] Comment on above: Performed By: #### E RUR #### [facility] [address] [place] [address] Dr. Lester Yen Hemoglobin Ql (U) Negative Normal NEGATIVE [facility] Comment on above: Performed By: #### E RUR #### [facility] [address] [place] [address] Dr. Lester Yen Ketones Ql (U) 15 mg/dl Abnormal NEGATIVE [facility] Comment on above: Performed By: #### E RUR #### [facility] [address] [place] [address] Dr. Lester Yen LEUKOCYTES Negative Normal NEGATIVE [facility] Comment on above: Performed By: #### E RUR #### [facility] [address] [place] [address] Dr. Lester Yen Nitrite Ql (U) Negative Normal NEGATIVE [facility] Comment on above: Performed By: #### E RUR #### [facility] [address] [place] [address] Dr. Lester Yen pH (U) 6.0 [pH] Normal 5-9 [facility] Comment on above: Performed By: #### E RUR #### [facility] [address] [place] [address] Dr. Lester Yen SPEC GRAVITY <=1.005 Abnormal 1.005-<=1.02 5 [facility] Comment on above: Performed By: #### E RUR #### [facility] [address] [place] [address] Dr. Lester Yen UA PROTEIN Negative Normal NEGATIVE/ TRACE [facility] Comment on above: Performed By: #### E RUR #### [facility] [address] [address] [address] Lester Yen UR MICRO IND NOT INDICATED Normal [facility] Comment on above: Performed By: #### E RUR #### [facility] [address] [place], [place] [address] Dr. Lester Yen Urobilinogen Qn (U) 0.2 {Olivier'U}/dL Normal 0.2 - 1. 0 [facility] Comment on above: Performed By: #### E RUR #### [facility] [address] [address] [address] Lester Yen Eosinophils Auto (Bld) [#/Vo l]Ordered By: Monika Camarillo on 01-03-2023 Eosinophils (Bld) [#/Vol] 0.3 10*3/uL 0.0-0.45 [facility] Eosinophils/100 WBC Auto (Bl d)Ordered By: Monika Camarillo on 01-03-2023 Eosinophils/100 WBC (Bld) 5.4 % . [facility] Erythrocyte distribution wid th Auto (RBC) [Ratio]Ordered By: Monika Camarillo on 01-03-2023 Erythrocyte distribution width (RBC) [Ratio] 12.7 % 11.9-15.3 [facility] Globulin Calc (S) [Mass/Vol] Ordered By: Monika Camarillo on 01-03-2023 Globulin (S) [Mass/Vol] 2.1 g/dL [facility] Glucose [Mass/volume] in Ser um or PlasmaOrdered By: Monika Camarillo on 01-03-2023 Glucose [Mass/Vol] 85 mg/dL 70-100 [facility] Comment on above: ADA recommended refe rence rangeRandom Glucose Reference Range is dependent on time and content of last meal. Glucose of more than 200 mg/dL in a nonstressed, ambulatory subject supports the diagnosis of Diabetes Mellitus. Hematocrit Auto (Bld) [Volum e fraction]Ordered By: Monika Camarillo on 01-03-2023 Hematocrit (Bld) [Volume fraction] 39.8 % 34.0-46.4 [facility] Hemoglobin [Mass/volume] in BloodOrdered By: Monika Camarillo on 01-03-2023 Hemoglobin (Bld) [Mass/Vol] 13.4 g/dL 11.8-15.4 [facility] Ketones Auto test strip (U) [Mass/Vol]Ordered By: Monika Camarillo on 01-03-2023 Ketones (U) [Mass/Vol] Negative Negative [facility] Leukocytes [#/volume] correc ira for nucleated erythrocytes in Blood by Automated counOrdered By: Monika Camarillo on 01-03-2023 WBC corrected for nucl RBC Auto (Bld) [#/Vol] 5.7 10*3/uL 3.8-11.6 [facility] Lipase [Enzymatic activity/v olume] in Serum or PlasmaOrdered By: Monika Camarillo on 01-03-2023 Lipase [Catalytic activity/Vol] 17.0 U/L 11.0-82.0 [facility] Lymphocytes Auto (Bld) [#/Vo l]Ordered By: Monika Camarillo on 01-03-2023 Lymphocytes (Bld) [#/Vol] 0.9 10*3/uL 1.00-4.8 [facility] Lymphocytes/100 WBC Auto (Bl d)Ordered By: Monika Camarillo on 01-03-2023 Lymphocytes/100 WBC (Bld) 15.2 % . [facility] MCH Auto (RBC) [Entitic mass ]Ordered By: Monika Camarillo on 01-03-2023 MCH (RBC) [Entitic mass] 31.0 pg 24.7-34.3 [facility] MCHC Auto (RBC) [Mass/Vol]Or dered By: Monika Camarillo on 01-03-2023 MCHC (RBC) [Mass/Vol] 33.6 g/dL 32.0-35.0 [facility] MCV Auto (RBC) [Entitic vol] Ordered By: Monika Camarillo on 01-03-2023 MCV (RBC) [Entitic vol] 92.2 fL 80-100 [facility] Monocyte distribution width [Entitic volume] in Blood by AutomatedOrdered By: Monika Camarillo on 01-03-2023 Monocyte distribution width Auto (Bld) [Entitic vol] 17.53 % 0.00-20.00 [facility] Monocytes Auto (Bld) [#/Vol] Ordered By: Monika Camarillo on 01-03-2023 Monocytes (Bld) [#/Vol] 0.4 10*3/uL 0.0-0.8 [facility] Monocytes/100 WBC Auto (Bld) Ordered By: Monika Camarillo on 01-03-2023 Monocytes/100 WBC (Bld) 6.5 % . [facility] Neutrophils Auto (Bld) [#/Vo l]Ordered By: Monika Camarillo on 01-03-2023 Neutrophils (Bld) [#/Vol] 4.1 10*3/uL 1.8-7.7 [facility] Neutrophils/100 WBC Auto (Bl d)Ordered By: Monika Camarillo on 01-03-2023 Neutrophils/100 WBC (Bld) 72.6 % . [facility] Nitrite Test strip Ql (U)Ord ered By: Monika Camarillo on 01-03-2023 Nitrite Ql (U) Negative Negative [facility] No Panel InformationOrdered By: Monika Camarillo on 01-03-2023 Estimated GFR (CKD-EPI) > 60.0 mL/Min [facility] Creatinine Clearance (Chem 94.97 [facility] Nucleated erythrocytes [Pres ence] in Blood by Automated countOrdered By: Monika Camarillo on 01-03-2023 Nucleated RBC Auto Ql (Bld) 0.1 /100{WBC} 0-0.5 [facility] Platelet mean volume Auto (B ld) [Entitic vol]Ordered By: Monika Camarillo on 01-03-2023 Platelet mean volume (Bld) [Entitic vol] 7.5 fL 6.3-10.7 [facility] Platelets Auto (Bld) [#/Vol] Ordered By: Monika Camarillo on 01-03-2023 Platelets (Bld) [#/Vol] 187 10*3/uL 150-450 [facility] Potassium [Moles/volume] in Serum or PlasmaOrdered By: Monika Camarillo on 01-03-2023 Potassium [Moles/Vol] 3.7 mmol/L 3.5-5.1 [facility] Protein Auto test strip (U) [Mass/Vol]Ordered By: Monika Camarillo on 01-03-2023 Protein (U) [Mass/Vol] Negative Negative [facility] Protein [Mass/volume] in Ser um or PlasmaOrdered By: Monika Carmelomavis on 01-03-2023 Protein [Mass/Vol] 6.8 g/dL 6.4-8.9 [facility] RBC Auto (Bld) [#/Vol]Ordere d By: Monika Zamoraadrianmavis on 01-03-2023 RBC (Bld) [#/Vol] 4.32 10*6/uL 3.60-5.00 [facility] Serum or plasma albumin/glob ulin mass ratioOrdered By: Monika Camarillo on 01-03-2023 Albumin/Globulin [Mass ratio] 2.2 {ratio} [facility] Serum or plasma anion gap de terminationOrdered By: Monika Serajose on 01-03-2023 Anion gap [Moles/Vol] 10.9 mmol/L 6.0-15.0 [facility] Sodium [Moles/volume] in Ser um or PlasmaOrdered By: Monika Carmelomavis on 01-03-2023 Sodium [Moles/Vol] 136 mmol/L 136-145 [facility] Specific gravity Auto test s trip (U) [Rel density]Ordered By: Monika Camarillo on 01-03-2023 Specific gravity (U) [Rel density] 1.005 1.001-1.030 [facility] US PREG TVon 01-03-2023 US PREG [...] by: LOPEZ ZARAGOZA Date: 2023-01-03 21:49 Normal [facility] Urea nitrogen [Mass/volume] in Serum or PlasmaOrdered By: Monika Camarillo on 01-03-2023 Urea nitrogen [Mass/Vol] 9 mg/dL 7-25 [facility] Urine clarity by refractomet ry automatedOrdered By: Monika Camarillo on 01-03-2023 Clarity Refractometry automated (U) Clear Clear [facility] Urine glucose measurement by automated test strip (mass/volume)Ordered By: Monika Camarillo on 01-03-2023 Glucose Auto test strip (U) [Mass/Vol] Normal mg/dL Normal [facility] Urine hemoglobin detection b y automated test stripOrdered By: Monika Camarillo on 01-03-2023 Hemoglobin Auto test strip Ql (U) Negative Negative [facility] Urine leukocyte esterase det ection by automated test stripOrdered By: Monika Camarillo on 01-03-2023 Leukocyte esterase Auto test strip Ql (U) Negative Negative [facility] Urobilinogen Auto test strip (U) [Mass/Vol]Ordered By: Monika Camarillo on 01-03-2023 Urobilinogen (U) [Mass/Vol] Normal mg/dL Normal [facility] WBC Auto (Bld) [#/Vol]Ordere d By: Monika Camarillo on 01-03-2023 WBC (Bld) [#/Vol] 5.7 10*3/uL 3.8-11.6 [facility] pH Auto test strip (U)Ordere d By: Monika Camarillo on 01-03-2023 pH (U) 6.5 [pH] 5.0-9.0 [facility] US PREG TVon 12-26-2022 US PREG [...] by: KENNEDY LEHMAN Date: 2022-12-26 15:07 Normal [facility] PREG QUANT HCGon 12-25-2022 HCG QUANT 67499 mIU/mL Normal [facility] Comment on above: Performed By: #### P REGQNT #### [facility] [address] [address] [address] Lester Yen HCG RANGE SEE BELOW Normal [facility] Comment on above: Result Comment: 5-50 0.2-1 WEEK 50-500 1-2 WEEKS 100-5,000 2-3 WEEKS 500-10,000 3-4 WEEKS 1,000-50,000 4-5 WEEKS 10,000-100,000 5-6 WEEKS 15,000-200,000 6-8 WEEKS 10,000-100,000 2-3 MONTHS Performed By: #### P REGQNT #### [facility] [address] [address] [address] Lester Yen Albumin [Mass/volume] in Ser um or PlasmaOrdered By: Monika Camarillo on 08-02-2022 Albumin [Mass/Vol] 3.7 g/dL 3.2-5.5 [facility] Basophils Auto (Bld) [#/Vol] Ordered By: Monika Camarillo on 08-02-2022 Basophils (Bld) [#/Vol] 0.0 10*3/uL 0.0-0.2 [facility] Basophils/100 WBC Auto (Bld) Ordered By: Monika Camarillo on 08-02-2022 Basophils/100 WBC (Bld) 0.8 % . [facility] Bilirubin Test strip Ql (U)O rdered By: Monika Camarillo on 08-02-2022 Bilirubin Ql (U) Negative Negative [facility] Color Auto (U)Ordered By: Co shamika Camarillo on 08-02-2022 Color (U) Yellow Yellow [facility] Creatinine and Glomerular fi ltration rate.predicted panel (S/P/Bld)Ordered By: Monika Camarillo on 08-02-2022 Creatinine [Mass/Vol] 0.86 mg/dL 0.44-1.03 [facility] Eosinophils Auto (Bld) [#/Vo l]Ordered By: Monika Camarillo on 08-02-2022 Eosinophils (Bld) [#/Vol] 0.4 10*3/uL 0.0-0.45 [facility] Eosinophils/100 WBC Auto (Bl d)Ordered By: Monika Camarillo on 08-02-2022 Eosinophils/100 WBC (Bld) 12.8 % . [facility] Erythrocyte distribution wid th Auto (RBC) [Ratio]Ordered By: Monika Camarillo on 08-02-2022 Erythrocyte distribution width (RBC) [Ratio] 12.7 % 11.9-15.3 [facility] Estimated glomerular filtrat ion rate (GFR) non- AmericanOrdered By: Monika Camarillo on 08-02-2022 GFR/1.73 sq M.predicted among non-blacks MDRD (S/P/Bld) [Vol rate/Area] > 60 mL/Min [facility] [facility] Glob[facility] Calc (S) [Mass/Vol] Ordered By: Monika Camarillo on 08-02-2022 Globulin (S) [Mass/Vol] 2.4 g/dL [facility] HCG ( test) IA.rapi d Ql (U)Ordered By: Monika Camarillo on 08-02-2022 HCG ( test) Ql (U) Negative [facility] Hematocrit Auto (Bld) [Volum e fraction]Ordered By: Monika Camarillo on 08-02-2022 Hematocrit (Bld) [Volume fraction] 38.4 % 34.0-46.4 [facility] Hemoglobin [Mass/volume] in BloodOrdered By: Monika Camarillo on 08-02-2022 Hemoglobin (Bld) [Mass/Vol] 13.1 g/dL 11.8-15.4 [facility] Ketones Auto test strip (U) [Mass/Vol]Ordered By: Monika Camarillo on 08-02-2022 Ketones (U) [Mass/Vol] Negative Negative [facility] Laboratory - Hematology and Cell countsOrdered By: Monika Camarillo on 08-02-2022 Nucleated RBC/100 WBC (Bld) [Ratio] 0.1 % 0-0.5 [facility] Leukocytes [#/volume] in Blo od by Automated countOrdered By: Monika Camarillo on 08-02-2022 WBC (Bld) [#/Vol] 3.4 10*3/uL 4.5-11.0 [facility] Lymphocytes Auto (Bld) [#/Vo l]Ordered By: Monika Camarillo on 08-02-2022 Lymphocytes (Bld) [#/Vol] 1.0 10*3/uL 1.00-4.8 [facility] Lymphocytes/100 WBC Auto (Bl d)Ordered By: Monika Camarillo on 08-02-2022 Lymphocytes/100 WBC (Bld) 28.2 % . [facility] MCH Auto (RBC) [Entitic mass ]Ordered By: Monika Camarillo on 08-02-2022 MCH (RBC) [Entitic mass] 31.1 pg 24.7-34.3 [facility] MCHC Auto (RBC) [Mass/Vol]Or dered By: Monika Camarillo on 08-02-2022 MCHC (RBC) [Mass/Vol] 34.1 g/dL 32.0-35.0 [facility] MCV Auto (RBC) [Entitic vol] Ordered By: Monika Camarillo on 08-02-2022 MCV (RBC) [Entitic vol] 91.4 fL 80-100 [facility] Monocytes Auto (Bld) [#/Vol] Ordered By: Monika Camarillo on 08-02-2022 Monocytes (Bld) [#/Vol] 0.3 10*3/uL 0.0-0.8 [facility] Monocytes/100 WBC Auto (Bld) Ordered By: Monika Camarillo on 08-02-2022 Monocytes/100 WBC (Bld) 7.7 % . [facility] Neutrophils Auto (Bld) [#/Vo l]Ordered By: Monika Camarillo on 08-02-2022 Neutrophils (Bld) [#/Vol] 1.7 10*3/uL 1.8-7.7 [facility] Neutrophils/100 WBC Auto (Bl d)Ordered By: Monika Camarillo on 08-02-2022 Neutrophils/100 WBC (Bld) 50.5 % . [facility] Nitrite Test strip Ql (U)Ord ered By: Monika Camarillo on 08-02-2022 Nitrite Ql (U) Negative Negative [facility] No Panel InformationOrdered By: Monika Camarillo on 08-02-2022 Estimated GFR () > 60 mL/Min [facility] Comment on above: GFR estimated refere nce range: According to KDOQI guidelines, <60 ml/min/1.73m2 is sufficient to diagnose a patient with chronic kidney disease. Pharmacy Creatinine Clearance (Chem 79.12 [facility] Platelet mean volume Auto (B ld) [Entitic vol]Ordered By: Monika Camarillo on 08-02-2022 Platelet mean volume (Bld) [Entitic vol] 7.8 fL 6.3-10.7 [facility] Platelets Auto (Bld) [#/Vol] Ordered By: Monika Camarillo on 08-02-2022 Platelets (Bld) [#/Vol] 203 10*3/uL 150-450 [facility] Protein Auto test strip (U) [Mass/Vol]Ordered By: Monika Camarillo on 08-02-2022 Protein (U) [Mass/Vol] Negative Negative [facility] Protein [Mass/volume] in Ser um or PlasmaOrdered By: Monika Camarillo on 08-02-2022 Protein [Mass/Vol] 6.1 g/dL 6.1-7.9 [facility] RBC Auto (Bld) [#/Vol]Ordere d By: Monika Camarillo on 08-02-2022 RBC (Bld) [#/Vol] 4.20 10*6/uL 3.60-5.00 [facility] Serum or plasma alanine gaspar otransferase measurement without P-5'-P (enzymatic activiOrdered By: Monika Camarillo on 08-02-2022 ALT No additional P-5'-P [Catalytic activity/Vol] 13 U/L 1060 [facility] Serum or plasma albumin/glob ulin mass ratioOrdered By: Monika Camarillo on 08-02-2022 Albumin/Globulin [Mass ratio] 1.5 {ratio} [facility] Serum or plasma alkaline radames sphatase measurement (enzymatic activity/volume)Ordered By: Monika Camarillo on 08-02-2022 ALP [Catalytic activity/Vol] 46 U/L 32-92 [facility] Serum or plasma anion gap de terminationOrdered By: Monika Camarillo on 08-02-2022 Anion gap [Moles/Vol] 11.0 mmol/L 6.0-15.0 [facility] Serum or plasma aspartate am inotransferase measurement (enzymatic activity/volume)Ordered By: Monika Camarillo on 08-02-2022 AST [Catalytic activity/Vol] 16 U/L [facility] Serum or plasma calcium unique urement (mass/volume)Ordered By: Monika Camarillo on 08-02-2022 Calcium [Mass/Vol] 9.2 mg/dL 8.2-10.2 [facility] Serum or plasma chloride debbie surement (moles/volume)Ordered By: Monika Camarillo on 08-02-2022 Chloride [Moles/Vol] 104 mmol/L 95-114 [facility] Serum or plasma glucose unique urement (mass/volume)Ordered By: Monika Camarillo on 08-02-2022 Glucose [Mass/Vol] 82 mg/dL 70-100 [facility] Comment on above: ADA recommended refe rence rangeRandom Glucose Reference Range is dependent on time and content of last meal. Glucose of more than 200 mg/dL in a nonstressed, ambulatory subject supports the diagnosis of Diabetes Mellitus. Serum or plasma potassium me asurement (moles/volume)Ordered By: Monika Camarillo on 08-02-2022 Potassium [Moles/Vol] 3.4 mmol/L 3.5-5.1 [facility] Serum or plasma sodium measu rement (moles/volume)Ordered By: Monika Camarillo on 08-02-2022 Sodium [Moles/Vol] 137 mmol/L 136-146 [facility] Serum or plasma total biliru bin measurement (mass/volume)Ordered By: Monika Camarillo on 08-02-2022 Bilirubin [Mass/Vol] 0.6 mg/dL 0.3-1.2 [facility] Serum or plasma total carbon dioxide measurement (moles/volume)Ordered By: Monika Camarillo on 08-02-2022 CO2 [Moles/Vol] 25.4 mmol/L 22.0-30.0 [facility] Serum or plasma urea nitroge n measurement (mass/volume)Ordered By: Monika Camarillo on 08-02-2022 Urea nitrogen [Mass/Vol] 8 mg/dL 9-23 [facility] Specific gravity Auto test s trip (U) [Rel density]Ordered By: Monika Camarilol on 08-02-2022 Specific gravity (U) [Rel density] 1.009 1.001-1.030 [facility] Urine clarity by refractomet ry automatedOrdered By: Monika Camarillo on 08-02-2022 Clarity Refractometry automated (U) Clear Clear [facility] Urine glucose measurement by automated test strip (mass/volume)Ordered By: Monika Camarillo on 08-02-2022 Glucose Auto test strip (U) [Mass/Vol] Normal mg/dL Normal [facility] Urine hemoglobin detection b y automated test stripOrdered By: Monika Camarillo on 08-02-2022 Hemoglobin Auto test strip Ql (U) Negative Negative [facility] Urine lactic acid measuremen tOrdered By: Monika Camarillo on 08-02-2022 Lactate (U) [Moles/Vol] 1.4 mmol/L 0.5-2.2 [facility] Urine leukocyte esterase det ection by automated test stripOrdered By: Monika Camarillo on 08-02-2022 Leukocyte esterase Auto test strip Ql (U) Negative Negative [facility] Urobilinogen Auto test strip (U) [Mass/Vol]Ordered By: Monika Camarillo on 08-02-2022 Urobilinogen (U) [Mass/Vol] Normal mg/dL Normal [facility] pH Auto test strip (U)Ordere d By: Monika Camarillo on 08-02-2022 pH (U) 8.0 [pH] 5.0-9.0 [facility] CBC AUTO DIFFon 07-29-2022 BASO # 0.0 103/ul Normal 0.0-0.1 [facility] Comment on above: Performed By: #### C BC #### [facility] [address] [address] [address] Lester Yen Basophils/100 WBC (Bld) 1.1 % Normal 0.2-2.0 [facility] Comment on above: Performed By: #### C BC #### [facility] [address] [place] [address] Dr. Lester eYn EO # 0.4 103/ul Normal 0.0-0.7 [facility] Comment on above: Performed By: #### C BC #### [facility] [address] [place] [address] Dr. Lester Yen Eosinophils/100 WBC (Bld) 10.8 % Critically high 0.9-7.0 [facility] Comment on above: Performed By: #### C BC #### [facility] [address] [place] [address] Dr. Lester Yen Erythrocyte distribution width (RBC) [Ratio] 12.0 % Normal 11.0-15.0 [facility] Comment on above: Performed By: #### C BC #### [facility] [address] [place] [address] Dr. Lester Yen Hematocrit (Bld) [Volume fraction] 36.3 % Normal 36.0-48.0 [facility] Comment on above: Performed By: #### C BC #### [facility] [address] [place] [address] Dr. Lester Yen Hemoglobin (Bld) [Mass/Vol] 12.4 g/dL Normal 12.0-16.0 [facility] Comment on above: Performed By: #### C BC #### [facility] [address] [place] [address] Dr. Lester Yen IG # 0.00 10e3/ul Normal 0.00-0.03 [facility] Comment on above: Performed By: #### C BC #### [facility] [address] [place] [address] Dr. Lester Yen IG % 0.0 % Normal 0.0-0.5 [facility] Comment on above: Performed By: #### C BC #### [facility] [address] [place] [address] Dr. Lester Yen LYMPH # 1.6 103/ul Normal 1.2-3.8 [facility] Comment on above: Performed By: #### C BC #### [facility] [address] [place] [address] Dr. Lester Yen Lymphocytes/100 WBC (Bld) 41.6 % Normal 20.5-60.0 [facility] Comment on above: Performed By: #### C BC #### [facility] [address] [place] [address] Dr. Lester Yen MANUAL DIFF REQ NO Normal [facility] Comment on above: Performed By: #### C BC #### [facility] [address] [place] [address] Dr. Lester Yen MCH (RBC) [Entitic mass] 31.9 pg Normal 26.7-34.0 [facility] Comment on above: Performed By: #### C BC #### [facility] [address] [place] [address] Dr. Lester Yen MCHC (RBC) [Mass/Vol] 34.2 g/dL Normal 29.9-35.2 [facility] Comment on above: Performed By: #### C BC #### [facility] [address] [place] [address] Dr. Lester Yen MCV (RBC) [Entitic vol] 93.3 fL Normal 81.0-99.0 [facility] Comment on above: Performed By: #### C BC #### [facility] [address] [address] [address] Lester Yen MONO # 0.3 103/ul Normal 0.3-0.8 [facility] Comment on above: Performed By: #### C BC #### [facility] [address] [place] [address] Dr. Lester Yen Monocytes/100 WBC (Bld) 8.2 % Normal 1.7-12.0 [facility] Comment on above: Performed By: #### C BC #### [facility] [address] [place] [address] Dr. Lester Yen NEUT # 1.5 103/ul Normal 1.4-6.5 [facility] Comment on above: Performed By: #### C BC #### [facility] [address] [place] [address] Dr. Lester Yen Neutrophils/100 WBC (Bld) 38.3 % Critically low 43.0-75.0 [facility] Comment on above: Performed By: #### C BC #### [facility] [address] [place] [address] Dr. Lester Yen Platelet mean volume (Bld) [Entitic vol] 9.3 fL Critically low 9.5-13.5 [facility] Comment on above: Performed By: #### C BC #### [facility] [address] [place] [address] Dr. Lester Yen PLT 184 103/ul Normal 150-450 [facility] Comment on above: Performed By: #### C BC #### [facility] [address] [place] [address] Dr. Lester Yen RBC 3.89 106/ul Critically low 4.20-5.40 [facility] Comment on above: Performed By: #### C BC #### [facility] [address] [place] [address] Dr. Lester Yen WBC 3.8 103/ul Critically low 4.0-11.0 [facility] Comment on above: Performed By: #### C BC #### [facility] [address] [place] [address] Dr. Lester Yen Covid-19 PCR (CVDTB)on 07-07 SARS-CoV-2 (COVID-19) RNA JOSE+probe Ql (Unsp spec) Not detected Normal NOT DETECTED [facility] Comment on above: Result Comment: When [...] for this test is supported by the [place] of [employer] and Human Service's declaration that [...] By: #### C ANJU PULIDO AMY #### [facility] [address] [address] [address] Lester Yen PREG QUANT HCGon 07-29-2022 HCG QUANT 1 mIU/mL Normal [facility] Comment on above: Performed By: #### C ANJU PULIDO AMY #### [facility] [address] [address] [address] Lester Yen HCG RANGE SEE BELOW Normal [facility] Comment on above: Result Comment: 5-50 0.2-1 WEEK 50-500 1-2 WEEKS 100-5,000 2-3 WEEKS 500-10,000 3-4 WEEKS 1,000-50,000 4-5 WEEKS 10,000-100,000 5-6 WEEKS 15,000-200,000 6-8 WEEKS 10,000-100,000 2-3 MONTHS Performed By: #### C ASHOK LIPSaba, SYLVIA #### [facility] [address] [address] [address] Lester Yen HIV 1 and HIV-2 antibody ass ay with HIV-1 p24 antigen detectionOrdered By: Dominic Hester on 06-18-2022 HIV 1+2 Ab+HIV1 p24 Ag IA Ql Non-Reactive Non Reactive [facility] Comment on above: HIV NegativeHIV-1/HI V-2 antibodies and HIV-1 p24 antigen were NOTdetected. There is no laboratory evidence of HIV infection.Performed at: [facility] [id number] Director: Lebron Manzo PhD, Phone: [phone] Hepatitis B virus surface Ag [Presence] in Serum or Plasma by ImmunoassayOrdered By: Dominic Hester on 06-18-2022 HBV surface Ag IA Ql Negative Negative [facility] Hepatitis C virus RNA [Units /volume] (viral load) in Serum or Plasma by JOSE with probOrdered By: Dominic Hester on 06-18-2022 HCV RNA JOSE+probe Qn N/A [facility] Hepatitis C virus RNA [log u nits/volume] (viral load) in Serum or Plasma by JOSE withOrdered By: Dominic Hester on 06-18-2022 HCV RNA JOSE+probe [Log units/Vol] N/A [facility] No Panel InformationOrdered By: Dominic Hester on 06-18-2022 Hepatitis A IgM Antibody Negative Negative [facility] Hepatitis B Core IgM Antibody Negative Negative [facility] Hepatitis C Interpretation See comment . [facility] Comment on above: NegativeNot infected with HCV, unless recent infection issuspected or other evidence exists to indicate HCVinfection.Performed at: [facility] [id number] Director: Lebron Manzo PhD, Phone: [phone] Hepatitis C RNA Quantitative N/A [facility] Reagin Ab [Presence] in Seru m by RPROrdered By: Dominic Hester on 06-18-2022 Reagin Ab RPR Ql (S) Non-Reactive Non Reactive [facility] Comment on above: Performed at: - [facility] [id number] Director: Lebron Manzo PhD, Phone: [phone] Serum or plasma hepatitis C virus antibody signal/cutoff ratio by immunoassay (relatiOrdered By: Dominic Hester on 06-18-2022 HCV Ab Signal/Cutoff IA [Rel units/Vol] <0.1 s/co ratio 0.0-0.9 [facility] CHLAMYDIA/GONOCOCCUS JOSE (SW AB/URINE/PAPon 06-04-2022 Chlamydia trachomatis, JOSE Negative Normal Negative [facility] Comment on above: Performed By: #### C T/NGNA #### [facility] [address] [place] [address] Dr. Lester Yen Neisseria gonorrhoeae, JOSE Negative Normal Negative [facility] Comment on above: Performed By: #### C T/NGNA #### [facility] [address] [place] [address] Dr. Lester Yen VAGINITIS/VAGINOSIS DNA PROB Davide 06-02-2022 Tameka species Negative Normal Negative [facility] Comment on above: Performed By: #### C BECKI PULIDOA, SYLVIA #### [facility] [address] [place] [address] Dr. Lester Yen Gardnerella vaginalis Negative Normal Negative [facility] Comment on above: Performed By: #### C ANJU PULIDO, SYLVIA #### [facility] [address] [place] [address] Dr. Lester Yen Trichomonas vaginalis Negative Normal Negative [facility] Comment on above: Performed By: #### C ANJU PULIDO, SYLVIA #### [facility] [address] [place] [address] Dr. Lester Yen AMYLASEon 05-28-2022 Amylase [Catalytic activity/Vol] 48 U/L Normal 25-115 [facility] Comment on above: Performed By: #### C BECKI PULIDOA, SYLVIA #### [facility] [address] [place] [address] Dr. Lester Yen CBC AUTO DIFFon 05-28-2022 BASO # 0.0 103/ul Normal 0.0-0.1 [facility] Comment on above: Performed By: #### C BC #### [facility] [address] [place] [address] Dr. Lester Yen Basophils/100 WBC (Bld) 0.5 % Normal 0.2-2.0 [facility] Comment on above: Performed By: #### C BC #### [facility] [address] [place] [address] Dr. Lester Yen EO # 0.3 103/ul Normal 0.0-0.7 [facility] Comment on above: Performed By: #### C BC #### [facility] [address] [place] [address] Dr. Lester Yen Eosinophils/100 WBC (Bld) 5.7 % Normal 0.9-7.0 [facility] Comment on above: Performed By: #### C BC #### [facility] [address] [place] [address] Dr. Lester Yen Erythrocyte distribution width (RBC) [Ratio] 12.6 % Normal 11.0-15.0 [facility] Comment on above: Performed By: #### C BC #### [facility] [address] [place] [address] Dr. Lester Yen Hematocrit (Bld) [Volume fraction] 39.5 % Normal 36.0-48.0 [facility] Comment on above: Performed By: #### C BC #### [facility] [address] [place] [address] Dr. Lester Yen Hemoglobin (Bld) [Mass/Vol] 13.2 g/dL Normal 12.0-16.0 [facility] Comment on above: Performed By: #### C BC #### [facility] [address] [place] [address] Dr. Lester Yen IG # 0.01 10e3/ul Normal 0.00-0.03 [facility] Comment on above: Performed By: #### C BC #### [facility] [address] [place] [address] Dr. Lester Yen IG % 0.2 % Normal 0.0-0.5 [facility] Comment on above: Performed By: #### C BC #### [facility] [address] [place] [address] Dr. Lester Yen LYMPH # 1.1 103/ul Critically low 1.2-3.8 [facility] Comment on above: Performed By: #### C BC #### [facility] [address] [place] [address] Dr. Lester Yen Lymphocytes/100 WBC (Bld) 18.9 % Critically low 20.5-60.0 [facility] Comment on above: Performed By: #### C BC #### [facility] [address] [place] [address] Dr. Lester Yen MANUAL DIFF REQ NO Normal [facility] Comment on above: Performed By: #### C BC #### [facility] [address] [place] [address] Dr. Lester Yen MCH (RBC) [Entitic mass] 31.1 pg Normal 26.7-34.0 [facility] Comment on above: Performed By: #### C BC #### [facility] [address] [place] [address] Dr. Lester Yen MCHC (RBC) [Mass/Vol] 33.4 g/dL Normal 29.9-35.2 [facility] Comment on above: Performed By: #### C BC #### [facility] [address] [place] [address] Dr. Lester Yen MCV (RBC) [Entitic vol] 93.2 fL Normal 81.0-99.0 [facility] Comment on above: Performed By: #### C BC #### [facility] [address] [place] [address] Dr. Lester Yen MONO # 0.5 103/ul Normal 0.3-0.8 [facility] Comment on above: Performed By: #### C BC #### [facility] [address] [place] [address] Dr. Lester Yen Monocytes/100 WBC (Bld) 8.4 % Normal 1.7-12.0 [facility] Comment on above: Performed By: #### C BC #### [facility] [address] [place] [address] Dr. Lester Yen NEUT # 3.9 103/ul Normal 1.4-6.5 [facility] Comment on above: Performed By: #### C BC #### [facility] [address] [place] [address] Dr. Lester Yen Neutrophils/100 WBC (Bld) 66.3 % Normal 43.0-75.0 [facility] Comment on above: Performed By: #### C BC #### [facility] [address] [place] [address] Dr. Lester Yen Platelet mean volume (Bld) [Entitic vol] 9.8 fL Normal 9.5-13.5 [facility] Comment on above: Performed By: #### C BC #### [facility] [address] [place] [address] Dr. Lester Yen PLT 186 103/ul Normal 150-450 [facility] Comment on above: Performed By: #### C BC #### [facility] [address] [place] [address] Dr. Lester Yen RBC 4.24 106/ul Normal 4.20-5.40 [facility] Comment on above: Performed By: #### C BC #### [facility] [address] [place] [address] Dr. Lester Yen WBC 5.9 103/ul Normal 4.0-11.0 [facility] Comment on above: Performed By: #### C BC #### [facility] [address] [place] [address] ABD/PELV W CONon [...] TOR JIN Date: 2022-05-28 12:57 Normal [facility] ER URINE PROFILEon 2 Bilirubin Ql (U) Negative Normal NEGATIVE [facility] Comment on above: Performed By: #### E RUR, PREGU #### [facility] [address] [place] [address] Dr. Lester Yen Clarity (U) CLEAR Normal CLEAR [facility] Comment on above: Performed By: #### E RUR, PREGU #### [facility] [address] [address] [address] Lester Yen Color (U) LT. YELLOW Normal YELLOW [facility] Comment on above: Performed By: #### E RUR, PREGU #### [facility] [address] [address] [address] Lester Yen ERUAHD A micrscopic examination will be performed if indicated. Normal [facility] Comment on above: Performed By: #### E RUR, PREGU #### [facility] [address] [address] [address] Lester Yen Glucose Ql (U) Negative Normal NEGATIVE [facility] Comment on above: Performed By: #### E RUR, PREGU #### [facility] [address] [place] [address] Dr. Lester Yen Hemoglobin Ql (U) Negative Normal NEGATIVE [facility] Comment on above: Performed By: #### E RUR, PREGU #### [facility] [address] [place] [address] Dr. Lester Yen Ketones Ql (U) Negative Normal NEGATIVE [facility] Comment on above: Performed By: #### E RUR, PREGU #### [facility] [address] [place] [address] Dr. Lester Yen LEUKOCYTES Negative Normal NEGATIVE [facility] Comment on above: Performed By: #### E RUR, PREGU #### [facility] [address] [place] [address] Dr. Lester Yen Nitrite Ql (U) Negative Normal NEGATIVE [facility] Comment on above: Performed By: #### E RUR, PREGU #### [facility] [address] [place] [address] Dr. Lester Yen pH (U) 6.0 [pH] Normal 5-9 [facility] Comment on above: Performed By: #### E RUR, PREGU #### [facility] [address] [place] [address] Dr. Lester Yen SPEC GRAVITY <=1.005 Abnormal 1.005-<=1.02 5 [facility] Comment on above: Performed By: #### E RUR, PREGU #### [facility] [address] [place] [address] Dr. Lester Yen UA PROTEIN Negative Normal NEGATIVE/ TRACE [facility] Comment on above: Performed By: #### E RUR, PREGU #### [facility] [address] [place] [address] Dr. Lester Yen UR MICRO IND NOT INDICATED Normal [facility] Comment on above: Performed By: #### E RUR, PREGU #### [facility] [address] [place] [address] Dr. Lester Yen Urobilinogen Qn (U) 0.2 {Olivier'U}/dL Normal 0.2 - 1. 0 [facility] Comment on above: Performed By: #### E RUR, PREGU #### [facility] [address] [place] [address] Dr. Lester Yen LIPASEon 05-28-2022 Lipase [Catalytic activity/Vol] 96.0 U/L Normal 73.0-393.0 [facility] Comment on above: Performed By: #### C MP, LIPA, SYLVIA #### [facility] [address] [place] [address] Dr. Lester Yen URon 05-28-2022 , QUAL Negative Normal NEGATIVE [facility] Comment on above: Performed By: #### E RUR, PREGU #### [facility] [address] [place] [address] Dr. Lester Yen PROF 14(COMP METB)on 022 Albumin [Mass/Vol] 4.0 g/dL Normal 3.4-5.0 [facility] Comment on above: Performed By: #### C MP, LIPA, SYLVIA #### [facility] [address] [place] [address] Dr. Lester Yen Albumin/Globulin [Mass ratio] 1.4 {ratio} Normal [facility] Comment on above: Performed By: #### C MP, LIPA, SYLVIA #### [facility] [address] [place] [address] Dr. Lester Yen ALP [Catalytic activity/Vol] 56 U/L Normal 46-116 [facility] Comment on above: Performed By: #### C MP, LIPA, SYLVIA #### [facility] [address] [place] [address] Dr. Lester Yen ALT [Catalytic activity/Vol] 14 U/L Normal 14-59 [facility] Comment on above: Performed By: #### C MP, LIPA, SYLVIA #### [facility] [address] [place] [address] Dr. Lester Yen Anion gap [Moles/Vol] 13.3 mmol/L Normal [facility] Comment on above: Performed By: #### C MP, LIPA, SYLVIA #### [facility] [address] [address] [address] Lester Yen AST [Catalytic activity/Vol] 11 U/L Critically low 15-37 [facility] Comment on above: Performed By: #### C MP, LIPA, SYLVIA #### [facility] [address] [address] [address] Lester Yen Bilirubin [Mass/Vol] 0.5 mg/dL Normal 0.2-1.0 [facility] Comment on above: Performed By: #### C MP, LIPA, SYLVIA #### [facility] [address] [address] [address] Lester Yen Calcium [Mass/Vol] 8.9 mg/dL Normal 8.5-10.1 [facility] Comment on above: Performed By: #### C MP, LIPA, SYLVIA #### [facility] [address] [place] [address] Dr. Lester Yen Chloride [Moles/Vol] 105 mmol/L Normal 98-107 [facility] Comment on above: Performed By: #### C MP, LIPA, SYLVIA #### [facility] [address] [address] [address] Lester Yen CO2 [Moles/Vol] 24.4 mmol/L Normal 21.0-32.0 [facility] Comment on above: Performed By: #### C MP, LIPA, SYLVIA #### [facility] [address] [address] [address] Lester Yen Creatinine [Mass/Vol] 0.88 mg/dL Normal 0.55-1.02 [facility] Comment on above: Performed By: #### C MP, LIPA, SYLVIA #### [facility] [address] [address] [address] Lester Yen EGFR-AF CONGOLESE >60 Normal >=60 [facility] Comment on above: Performed By: #### C MP, LIPA, SYLVIA #### [facility] [address] [address] [address] Lester Yen EGFR-NON AF CONGOLESE >60 Normal >=60 [facility] Comment on above: Performed By: #### C MP, LIPA, SYLVIA #### [facility] [address] [address] [address] Lester Yen Globulin (S) [Mass/Vol] 2.8 g/dL Normal T [facility] Comment on above: Performed By: #### C MP, LIPA, SYLVIA #### [facility] [address] [address] [address] Lester Yen Glucose [Mass/Vol] 100 mg/dL Normal 74-106 [facility] Comment on above: Performed By: #### C MP, LIPA, SYLVIA #### [facility] [address] [place] [address] Dr. Lester Yen Potassium [Moles/Vol] 3.7 mmol/L Normal 3.5-5.1 [facility] Comment on above: Performed By: #### C MP, LIPA, SYLVIA #### [facility] [address] [place] [address] Dr. Lester Yen Protein [Mass/Vol] 6.8 g/dL Normal 6.4-8.2 [facility] Comment on above: Performed By: #### C MP, LIPA, SYLVIA #### [facility] [address] [place] [address] Dr. Lester Yen Sodium [Moles/Vol] 139 mmol/L Normal 136-145 [facility] Comment on above: Performed By: #### C MP, LIPA, SYLVIA #### [facility] [address] [place] [address] Dr. Lester Yen Urea nitrogen [Mass/Vol] 13.0 mg/dL Normal 7.0-18.0 [facility] Comment on above: Performed By: #### C MP, LIPA, SYLVIA #### [facility] [address] [place] [address] Dr. Lester Yen Urea nitrogen/Creatinine [Mass ratio] 14.8 mg/mg Normal [facility] Comment on above: Performed By: #### C MP, LIPA, SYLVIA #### [facility] [address] [place] [address] Dr. Lester Machado Documentson 04-19-2021 Assisted Documents [id number] .[id number]:127 Normal [facility] Assisted Documentson 06-06-2020 Assisted Documents Assisted Nurse Visit 14 day Health Appraisal Date [...] Complications: no Month/Year of Last Gynecological Exam: 2017 Month/Year of Last Mammogram: never Previous Gynecological [...] forearm Date vial opened: 05/18/2020 Lot number: [id number] Expiration date: 01/24 PPD Comments: PPD Results [...] wish to attend AA Meetings? _ sure Assisted Assessment 05/31/20 15:54:00 Assisted Assessment Entered On: 05/31/2020 15:56 EDT Performed [...] Pressure Posi (more content not included)... Normal [facility] Assisted Documentson 05-29-2020 Assisted Documents [id number]:127 Normal [facility] Chlam/GC/Trich,NAAon 020 C. trachomatis rRNA JOSE+probe Ql (Unsp spec) Negative Invalid Interpretation Code Negative [facility] Comment on above: Performed By: #### 1 [id number] #### [facility] [address] [place] [address] N. gonorrhoeae rRNA JOSE+probe Ql (Unsp spec) Negative Invalid Interpretation Code Negative [facility] Comment on above: Performed By: #### 1 [id number] #### [facility] [address] [place] [address] T. vaginalis DNA JOSE+probe Ql (Unsp spec) Negative Invalid Interpretation Code Negative [facility] Comment on above: Result Comment: Perf ormed at: =G [address] Castro [address]DANK Marie [id number] MD Jama Valdivia Performed By: #### 1 [id number] #### [facility] [address] [place] [address] Coding Summary.on 05-15-2020 Coding Summary. CODING DATE: 05/15/2020 FINAL [facility] STATUS: Home (Routine DC) PAYOR: Medicaid EAPG [...] Revised Date Saved: 05/15/2020 10:37 am Normal [facility] Amylaseon 05-14-2020 Amylase [Catalytic activity/Vol] 58 U/L Normal 25-157 [facility] Comment on above: Performed By: #### 2 506779, 56493768, 7655598, 6689758, 4093840, 5371978, 4410508 ####[facility] [address] [place] [address] Auto Diffon 05-14-2020 Basophils/100 WBC (Bld) 0.5 % Normal 0.0-2.0 [facility] Comment on above: Order Comment: Order Added by Discern Expert. Performed By: #### 2 881851, 59735131, 7558682, 7727658, 4286083, 2090838, 8154067 ####[address] [address] Basophils/Leukocytes Auto (Bld) [Pure # fraction] 0.0 E9/L Normal 0.0-0.2 [facility] Comment on above: Order Comment: Order Added by Discern Expert. Performed By: #### 2 849500, 72303410, 6387721, 0806935, 2678715, 2277913, 5900268 ####[address] [address] Eosinophils/100 WBC (Bld) 8.4 % High 0.0-8.0 [facility] Comment on above: Order Comment: Order Added by Discern Expert. Performed By: #### 2 634493, 09956332, 7762358, 0474441, 5435057, 8277005, 7073244 ####[address] [address] Eosinophils/Leukocytes Auto (Bld) [Pure # fraction] 0.5 E9/L Normal 0.0-0.5 [facility] Comment on above: Order Comment: Order Added by Discern Expert. Performed By: #### 2 043543, 99808001, 4493250, 5709681, 7548097, 1916872, 8872370 ####[address] [address] Lymphocytes/100 WBC (Bld) 31.4 % Normal 14.0-50.0 [facility] Comment on above: Order Comment: Order Added by Discern Expert. Performed By: #### 2 996097, 28015456, 6522251, 0557854, 8078087, 8752348, 4705550 ####[address] [address] Lymphocytes/Leukocytes Auto (Bld) [Pure # fraction] 1.8 E9/L Normal 1.0-4.0 [facility] Comment on above: Order Comment: Order Added by Discern Expert. Performed By: #### 2 926277, 14483861, 6764262, 5110889, 6846651, 9726400, 2810901 ####[address] [place] [address] Monocytes/100 WBC (Bld) 8.2 % Normal 4.0-14.0 [facility] Comment on above: Order Comment: Order Added by Discern Expert. Performed By: #### 2 623381, 14705268, 0326309, 1357565, 0671353, 9206443, 3703262 ####[address] [place] [address] Monocytes/Leukocytes Auto (Bld) [Pure # fraction] 0.5 E9/L Normal 0.2-1.0 [facility] Comment on above: Order Comment: Order Added by Discern Expert. Performed By: #### 2 890328, 45290424, 9911227, 7078082, 5652048, 7957224, 9187663 ####[address] [address] Neutrophils/100 WBC (Bld) 51.5 % Normal 36.0-75.0 [facility] Comment on above: Order Comment: Order Added by Discern Expert. Performed By: #### 2 147118, 81241691, 0295911, 6646143, 5421117, 7923620, 0676331 ####[address] [address] Neutrophils/Leukocytes Auto (Bld) [Pure # fraction] 2.9 E9/L Normal 2.0-7.5 [facility] Comment on above: Order Comment: Order Added by Discern Expert. Performed By: #### 2 388163, 32276395, 4484925, 4774665, 9097567, 9942616, 6615076 ####[address] [address] BMPon 05-14-2020 Creatinine [Mass/Vol] 0.9 mg/dL Normal 0.5-1.[address] [facility] Comment on above: Performed By: #### 2 760758, 62009853, 1003031, 4959863, 1478734, 9969021, 2095364 ####[facility] [address] [place] [address] Urea nitrogen [Mass/Vol] 14 mg/dL Normal 5-21 [facility] Comment on above: Performed By: #### 2 964797, 38304233, 0350345, 3303239, 3948238, 7131533, 0814965 ####[facility] [address] [place] [address] Urea nitrogen/Creatinine [Mass ratio] 16 No Units Normal 10-20 [facility] Comment on above: Performed By: #### 2 575318, 59228111, 4054096, 9972998, 0459873, 2163293, 8348422 ####[facility] [address] [place] [address] Anion gap [Moles/Vol] 12 mmol/L Normal 6-[address] [facility] Comment on above: Performed By: #### 2 633532, 80098224, 3954901, 8252328, 8206935, 1115648, 1297366 ####[facility] [address] [facility] [address] Calcium [Mass/Vol] 9.3 mg/dL Normal 8.9-11.1 [facility] Comment on above: Performed By: #### 2 800616, 63351583, 0655890, 1333448, 7234926, 9597943, 6452632 ####[facility] [address] [place] [address] Chloride [Moles/Vol] 103 mmol/L Normal 101-111 [facility] Comment on above: Performed By: #### 2 932715, 22490009, 2884739, 7639287, 3678368, 3781460, 3066524 ####[facility] [address] AveNun[facility] [address] CO2 [Moles/Vol] 27 mmol/L Normal 21-31 [facility] Comment on above: Performed By: #### 2 750029, 37853414, 4700626, 0925173, 9208770, 1465097, 2098183 ####[facility] [address] [place] [address] Glucose [Mass/Vol] 89 mg/dL Normal 55-199 [facility] Comment on above: Result Comment: If t his glucose result represents a fasting glucose, interpretation should refer to the following reference range: 55-99 mg/dL Performed By: #### 2 916724, 99694852, 8656095, 2962896, 0134200, 4612388, 0240412 ####[facility] [address] [place] [address] Potassium [Moles/Vol] 3.8 mmol/L Normal 3.5-5.[address] [facility] Comment on above: Performed By: #### 2 571639, 43712999, 2079623, 6885522, 3952417, 9180589, 1597749 ####[facility] [address] [place] [address] Sodium [Moles/Vol] 138 mmol/L Normal 135-145 [facility] Comment on above: Performed By: #### 2 108070, 44074094, 1939540, 8762814, 2772947, 5227285, 4154880 ####[address] [address] CBC w/ Auto Diffon 0 Erythrocyte distribution width (RBC) [Ratio] 12.7 % Normal 10.9-14.2 [facility] Comment on above: Performed By: #### 2 524901, 76858391, 8098183, 9149824, 9976338, 8893358, 6393683 ####[address] [place] [address] Hematocrit (Bld) [Volume fraction] 41.7 % Normal 34.0-46.0 [facility] Comment on above: Performed By: #### 2 411681, 56560601, 1706940, 8537291, 8696097, 6888994, 6507207 ####[address] [place] [address] Hemoglobin (Bld) [Mass/Vol] 13.9 g/dL Normal 12.0-16.0 [facility] Comment on above: Performed By: #### 2 116206, 48984164, 5868714, 3571671, 1650394, 1266318, 7312741 ####[address] MCH (RBC) [Entitic mass] 30.8 pg Normal 27.0-34.0 [facility] Comment on above: Performed By: #### 2 576428, 91813278, 1347819, 8845434, 7307670, 6872453, 9782215 ####[address] MCHC (RBC) [Mass/Vol] 33.3 g/dL Normal 31.4-36.[address] [facility] Comment on above: Performed By: #### 2 259100, 02909268, 1558098, 6609499, 1340280, 8710619, 1136922 ####[address] MCV (RBC) [Entitic vol] 92.5 fL Normal 80.0-100.0 [facility] Comment on above: Performed By: #### 2 384423, 35418855, 8961679, 4897476, 6674716, 0552603, 4548511 ####[address] Platelet mean volume (Bld) [Entitic vol] 8.2 fL Normal 6.4-10.8 [facility] Comment on above: Performed By: #### 2 952600, 23375738, 8774062, 6510689, 2091747, 5966178, 4150868 ####[address] Platelets (Bld) [#/Vol] 230.0 E9/L Normal 150.0-500.0 [facility] Comment on above: Performed By: #### 2 632353, 20278155, 6663481, 8289504, 9193200, 4206453, 3964551 ####[facility] [address] [place] [address] RBC (Bld) [#/Vol] 4.5 E12/L Normal 4.3-5.9 [facility] Comment on above: Performed By: #### 2 744186, 38658767, 2738954, 1152252, 5503845, 1063545, 4945830 ####[facility] [address] [place] [address] WBC corrected for nucl RBC Auto (Bld) [#/Vol] 5.7 E9/L Normal 4.0-11.0 [facility] Comment on above: Performed By: #### 2 322579, 19084185, 5355030, 1216212, 8754901, 0584952, 0916233 ####[facility] [address] [place] [address] Discharge Instructionson Discharge Instructions [id number] #[id number]:127 Normal [facility] ED Clinical Summaryon 2019 ED Clinical Summary [id number] ED Clinical Summary Person Information Name: BREANA PICKETT Viv/[facility] Age: 29 Years : 1990 Sex: Female Language: Pashto PCP: Mica CARLTON MD Marital Status: Single Phone: [phone] Visit Id: Visit Reason: Abdominal pain; STOMACH [...] 05/14/2020 03:32:30 Patient Care Request 05/14/2020 00:40:17 Complete 05/14/2020 01:20:27 05/14/2020 03:04:42 Meds Admin Complete 05/14/2020 03:42:16 05/14/2020 04:07:05 Discharge Complete 05/14/2020 03:45:54 05/14/2020 04:35:55 05/14/2020 04:35:55 Meds Admin Complete 05/14/2020 04:02:08 05/14/2020 04:07:06 Transfer Complete 05/14/2020 04:35:55 05/14/2020 04:35:55 05/14/2020 04:35:55 ADDRESS: [address] [place] [address] PHYS DOC NOTES: MEDICAL INFORMATION: Prescriptions Given: New Medications Printed Prescriptions levofloxacin (Levaquin 500 mg Tab) 1 Tablets By Mouth every day. Refills: 0. Medications to Continue with No Changes Other Medications escitalopram (Lexapro 10 mg Tab) 1 Tablets By Mouth every day. PATIENT EDUCATION INFORMATION: Instructions: Pelvic Pain, Female, Svkq-ie-Issd Follow up: With: Address: When: Mica CARLTON [address] [place], [place] [address], [place] [phone] Business (1) In 3 days 05/17/2020 Comments: Followup with your distribution driver next week DIAGNOSIS: 1:Abdominal pain in female; Pelvic pain Normal [facility] ED Note-Nursingon 05-14-2020 ED Note-Nursing Dr. [place] aware of patient c/o generalized abd pain, rates at 04/14. Order received for [place], 2 tabs, one-time only. Normal [facility] ED Note-Nursing Dr. [place] at bedside for results review. Normal [facility] ED Note-Nursing Patient to u/s Normal [facility] ED Note-Nursing Dr. [place] at bedside for results update. Normal [facility] ED Note-Nursing Patient to xray. Normal [facility] ED Note-Nursing Dr. [place] at bedside for assessment. Normal [facility] ED Note-Physicianon 05-14-20 ED Note-Physician Basic Information Time Seen: Lucio [...] infection and recommend she followup with her distribution driver Assessment/Plan 1. Abdominal pain in female (R10.9: [...] 22:35:00) Lymph Auto: 31.4 % (05/13/20 22:35:00) [place] Auto: 8.2 % (05/13/20 22:35:00) Eos Auto: 8.4 % High (05/13/20 22:35:00) Basophil Auto: 0.5 % (05/13/20 22:35:00) Neutro Absolute: 2.9 E9/L (05/13/20 22:35:00) Lymph Absolute: 1.8 E9/L (05/13/20 22:35:00) Nelson Absolute: 0.5 E9/L (05/13/20 22:35:00) Eos Absolute: 0.5 E9/L (05/13/20 (more content not included)... Normal [facility] Comment on above: Result Comment: Elec tronically [...] Document Reviewed: 01/11/2013 ExitCare? Patient Information ?2015 [employer]. This information is not intended to replace advice given to you by your health care provider. Make sure you discuss any questions you have with your health care provider. Normal [facility] ED Patient Summaryon 020 ED Patient Summary [address] [place] [id number] Patient Discharge Instructions Person Information Name: BREANA PICKETT Age: 29 Years Arrival Date: 05/13/2020 21:43:46 Discharge Diagnosis: 1:Abdominal pain in female; Pelvic pain Primary Care Physician: Mica CARLTON MD Provider Information Primary Provider: Lucio [place] MD Advanced Surveillance Monitor:None The exam and treatment you received in the Emergency Department were for an urgent problem and are not intended as complete care. It is important that you follow up with a doctor, nurse practitioner, or physician?s personnel security assistant for ongoing care. If your symptoms become worse or you do not improve as expected and you are unable to reach your usual health care provider, you should return to the Emergency Department. We are available 24 hours a day. BREANA PICKETT OLGA has been given the following list of patient education materials, prescriptions and follow-up instructions: Follow-up Instructions: With: Address: When: Mica CARLTON [address] [place], [place] [address], [place] [address] Business (1) In 3 days 05/17/2020 Comments: Followup with your distribution driver next week In the event that this physician does not participate in your insurance network, please consult with your insurance company to find a nearby participating provider. Patient Education Materials: Pelvic Pain, Female, Qbjd-bg-Cdxn A MESSAGE TO ALL PATIENTS REGARDING OPIOIDS PRESCRIPTION OPIOIDS: WHAT YOU NEED TO KNOW Prescription opioids can be used to help relieve akfaxmra-ga-bikjcw pain and are often prescribed following a [...] tell your (more content not included)... Normal [facility] Hep Func Panelon 05-14-2020 Bilirubin.indirect [Mass or moles/Vol] UTC Abnormal 0.1-0.9 [facility] Comment on above: Result Comment: Resu lt verified by Discern Rule. Performed result UTC (Unable to Calculate) was sent as an Alpha code due the inability to calculate a valid numeric value. Performed By: #### 2 023349, 81040882, 1174494, 7290884, 2954923, 9487648, 9104204 ####[facility] [address] [place] [address] Albumin [Mass/Vol] 4.2 g/dL Normal 3.3-5.0 [facility] Comment on above: Performed By: #### 2 128208, 64386767, 9343298, 8738450, 3971764, 7281434, 9134458 ####[facility] [address] [place] [address] Albumin/Globulin (S) [Mass conc ratio] 1.4 Normal 1.1-2.2 [facility] Comment on above: Performed By: #### 2 287369, 26992251, 0186914, 4389154, 3970854, 6137136, 5806176 ####[address] [address] ALP [Catalytic activity/Vol] 62 Int._Unit/L Normal 21-98 [facility] Comment on above: Performed By: #### 2 341307, 18891901, 0630351, 0427757, 0506820, 6812249, 3843685 ####[address] [address] ALT No additional P-5'-P [Catalytic activity/Vol] 15 Int._Unit/L Normal 6-46 [facility] Comment on above: Performed By: #### 2 302362, 01204386, 4442003, 9563870, 9883606, 7931298, 1087756 ####[address] [place] [address] AST [Catalytic activity/Vol] 15 Int._Unit/L Normal 5-43 [facility] Comment on above: Performed By: #### 2 509100, 07455243, 2922795, 8555009, 4497761, 8555835, 7103360 ####[address] [address] Bilirubin [Mass/Vol] 0.8 mg/dL Normal 0.0-1.1 [facility] Comment on above: Performed By: #### 2 651461, 97917172, 4014544, 0573534, 4576996, 6632853, 3374947 ####[address] [address] Bilirubin.direct [Mass/Vol] mg/dL Normal 0.1-0.4 [facility] Comment on above: Performed By: #### 2 225689, 83107158, 2770482, 7764244, 4458592, 9560552, 0612377 ####[address] [place] [address] Globulin (S) [Mass/Vol] 2.9 g/dL Normal 1.4-4.0 [facility] Comment on above: Performed By: #### 2 929051, 17463317, 1057344, 3304915, 7288562, 0764040, 5528850 ####[facility] [address] [place] [address] Protein [Mass/Vol] 7.1 g/dL Normal 6.0-7.8 [facility] Comment on above: Performed By: #### 2 383814, 98843394, 2800076, 9385591, 5777495, 0346191, 1224479 ####[facility] [address] [place] [address] Lipase Levelon 05-14-2020 Lipase [Catalytic activity/Vol] 36 U/L Normal 13-58 [facility] Comment on above: Performed By: #### 2 544213, 65887650, 3733909, 3267304, 2752072, 1360748, 6776413 ####[facility] [address] [place] [address] U BetaHcg Qualon 05-14-2020 HCG.beta subunit (U) [Moles/Vol] Negative Normal [facility] Comment on above: Performed By: #### 2 4966411, 44774325 #### [facility] [address] [place] [address] UA With Cult Reflexon 2019 Bilirubin Ql (U) Negative Normal Negative [facility] Comment on above: Performed By: #### 2 5831299, 72612122 #### [facility] [address] [place] [address] Clarity (U) SL CLOUDY Abnormal Clear [facility] Comment on above: Performed By: #### 2 8144219, 57045295 #### [facility] [address] [place] [address] Color (U) YELLOW Normal Yellow [facility] Comment on above: Performed By: #### 2 4376717, 58598670 #### [facility] [address] [place] [address] Epithelial cells.squamous LM.HPF (Urine sed) [#/Area] 3-4 Normal 0-2 [facility] Comment on above: Performed By: #### 2 2784212, 49483599 #### [facility] [address] [place] [address] Glucose Test strip (U) [Mass/Vol] Negative Normal Negative [facility] Comment on above: Performed By: #### 2 [id number], [id number] #### [facility] [address] [place] [address] Hemoglobin Ql (U) Negative Normal Negative [facility] Comment on above: Performed By: #### 2 [id number], [id number] #### [facility] [address] [place] [address] Ketones (U) [Mass/Vol] TRACE Abnormal Negative [facility] Comment on above: Performed By: #### 2 [id number], [id number] #### [facility] [address] [place] [address] [place].plasma/[place]. RBC (Bld) [Mass ratio] 0-3 Normal 0-3 [facility] Comment on above: Performed By: #### 2 [id number] #### [facility] [address] [place] [address] Nitrite Ql (U) Negative Normal Negative [facility] Comment on above: Performed By: #### 2 [id number], [id number] #### [facility] [address] [place] [address] pH (U) 7.0 [pH] Invalid Interpretation Code 5.0-9.0 [facility] Comment on above: Performed By: #### 2 [id number], [id number] #### [facility] [address] [place] [address] Protein (U) [Mass/Vol] Negative Normal Negative [facility] Comment on above: Performed By: #### 2 [id number], [id number] #### [facility] [address] [place] [address] Specific gravity (U) [Rel density] 1.020 Invalid Interpretation Code 1.005-1.030 [facility] Comment on above: Performed By: #### 2 [id number], [id number] #### [facility] [address] [place] [address] UA Spec Desc Clean Catch Normal [facility] Comment on above: Performed By: #### 2 [id number], [id number] #### [facility] [address] [place] [address] Urobilinogen Qn (U) 0.2 {Olivier'U}/dL Normal 0.0-1.0 [facility] Comment on above: Performed By: #### 2 [id number], [id number] #### [facility] [address] [place] [address] WBC Auto Ql (U) Negative Normal Negative [facility] Comment on above: Performed By: #### 2 [id number], [id number] #### [facility] [address] [place] [address] WBC LM.HPF (Urine sed) [#/Area] 0-5 Normal 0-5 [facility] Comment on above: Performed By: #### 2 [id number], [id number] #### [facility] [address] [place] [address] US Pelvis Non-OB Completeon 05-14-2020 US Pelvis [...] TUCKER Technical Comments Transabdominal Ultrasound Performed Normal [facility] XR Abdomen Series w/ Chest 1 Viewon [...] DO Transcribed by: GABRIELE Technologist: TERESA Normal [facility] eGFRon 05-14-2020 GFR/1.73 sq M.predicted among blacks MDRD (S/P/Bld) [Vol rate/Area] mL/min/{1.73_m2} Normal >=59 [facility] Comment on above: Order Comment: Order added by Discern Expert. Result Comment: eGFR is race adjusted. AA=. Performed By: #### 2 [id number], [id number], [id number], [id number] ####[facility] [address] [place] [address] GFR/1.73 sq M.predicted among non-blacks MDRD (S/P/Bld) [Vol rate/Area] mL/min/{1.73_m2} Normal >=59 [facility] Comment on above: Order Comment: Order added by Discern Expert. Result Comment: Java J2Ee Lead pérez kidney disease could be indicated at eGFR's of less than 60 mL/min/1.73m2. Kidney failure is indicated at less than 15 mL/min/1.73m2. Performed By: #### 2 [id number], [id number], [id number], [id number], [id number], [id number] ####[facility] [address] [place] [address] Consent for Treatmenton 08-0 Consent for Treatment [id number] 00 [id number] #1.00CD:127 Normal [facility] Vital Signs Date Time Vital Sign Value Performing Clinician Facility 07-19-2024 13:26-0400 Body mass index (BMI) [Ratio] 22.5 kg/m2 [employer] Work Phone: [facility] 07-19-2024 13:26040 Body weight 57.61 kg [employer] Work Phone: [facility] 07-19-2024 13:26-0400 Diastolic blood pressure 60 mm[Hg] Wibki Work Phone: [facility] 07-19-2024 13:26-0400 Systolic blood pressure 110 mm[Hg] Dominic Mir DO Work Phone: [facility] 06-17-2024 14:12-0400 Body height 160.02 cm PHYSICIAN KARLY [facility] 06-17-2024 14:12-0400 Body temperature 98.5 [degF] PHYSICIAN NO [facility] 06-17-2024 14:12-0400 Body weight 52.4 kg PHYSICIAN NO [facility] 06-17-2024 14:12-0400 Diastolic blood pressure 52 mm[Hg] PHYSICIAN NO [facility] 06-17-2024 14:12-0400 Heart rate 72 /min PHYSICIAN NO [facility] 06-17-2024 14:12-0400 Respiratory rate 20 /min PHYSICIAN NO [facility] 06-17-2024 14:12-0400 SaO2% (BldA) [Mass fraction] 99 % PHYSICIAN NO [facility] 06-17-2024 14:12-0400 Systolic blood pressure 109 mm[Hg] PHYSICIAN NO [facility] 04-07-2023 14:45-0400 Body height 160.02 cm Dutch Vanessa Other [facility] Other 04-07-2023 14:45-0400 Body mass index (BMI) [Ratio] 21.25 kg/m2 Dutch Mendez Other [facility] Other 04-07-2023 14:45-0400 Body temperature 98 [degF] Dutch Mendez Other [facility] Other 04-07-2023 14:45-0400 Body weight 54.43 kg Dutch Mendez Other [facility] Other 04-07-2023 14:45-0400 Diastolic blood pressure 62 mm[Hg] Dutch Mendez Other [facility] Other 04-07-2023 14:45-0400 Respiratory rate 18 /min Dutch Mendez Other [facility] Other 04-07-2023 14:45-0400 SaO2% (BldA) [Mass fraction] 97 % Dutch Mendez Other [facility] Other 04-07-2023 14:45-0400 Systolic blood pressure 99 mm[Hg] Dutch Mendez Other [facility] Other 01-03-2023 18:30-0400 Diastolic blood pressure 53 mm[Hg] HOOK LOADER-C Naomy Luby Work Phone: [facility] 01-03-2023 18:30-0400 Heart rate 51 /min HOOK LOADER-C Naomy Luby Work Phone: [phone] [place] [address] 01-03-2023 18:30-0400 Respiratory rate 16 /min HOOK LOADER-C Naomy Luby Work Phone: [phone] [place] [address] 01-03-2023 18:30-0400 SaO2% (BldA) [Mass fraction] 100 % HOOK LOADER-C Naomy Luby Work Phone: [facility] 01-03-2023 18:30-0400 Systolic blood pressure 96 mm[Hg] HOOK LOADER-C Naomy Luby Work Phone: [facility] 01-03-2023 14:50-0400 Body height 160.02 cm HOOK LOADER-C Naomy Luby Work Phone: [facility] 01-03-2023 14:50-0400 Body temperature 98.1 [degF] HOOK LOADER-C Naomy Luby Work Phone: [facility] 01-03-2023 14:50-0400 Body weight 58.65 kg HOOK LOADER-C Naomy Luby Work Phone: [facility] 08-02-2022 20:04-0400 Diastolic blood pressure 51 mm[Hg] HOOK LOADER-C Naomy Luby Work Phone: [facility] 08-02-2022 20:04-0400 Heart rate 81 /min HOOK LOADER-C Naomy Luby Work Phone: [facility] 08-02-2022 20:04-0400 Respiratory rate 16 /min HOOK LOADER-C Naomy Garcia Work Phone: [facility] 08-02-2022 20:04-0400 SaO2% (BldA) [Mass fraction] 100 % HOOK LOADER-C Naomy Garcia Work Phone: [facility] 08-02-2022 20:04-0400 Systolic blood pressure 104 mm[Hg] HOOK LOADER-C Naomy Garcia Work Phone: [facility] 08-02-2022 17:33-0400 Body height 160.02 cm HOOK LOADER-C Naomy Garcia Work Phone: [facility] 08-02-2022 17:33-0400 Body temperature 98.8 [degF] HOOK LOADER-C Naomy Garcia Work Phone: [facility] 08-02-2022 17:33-0400 Body weight 59.4 kg HOOK LOADER-C Naomy Garcia Work Phone: [facility] Encounters Encounter Date Encounter Type Care Provider Facility Start: 08-23-2024 End: 08-24-2024 Clinisync Result Encounter Dominic Mir DO Work Phone: [facility] Unsolicited Start: 08-23-2024 End: 08-24-2024 Clinisync Result Encounter Dominic Mir DO Work Phone: [facility] Unsolicited Start: 07-19-2024 End: 07-19-2024 Bamboo flowsheet Dominic [...] Emergency department patient visit PHYSICIAN KARLY GAN [facility] Work Phone: Start: 04-24-2024 End: 04-24-2024 Patient encounter procedure HOOK LOADER-C Naomymyles Garcia Work Phone: [facility] [place] Work Phone: Start: 04-24-2024 End: 04-24-2024 ambulatory HOOK LOADER-C Naomymyles Garcia Work Phone: [facility] Work Phone: Start: 03-09-2024 End: 03-09-2024 ambulatory DOMINIC MIR Not Available Start: 02-09-2024 End: 02-09-2024 ambulatory DOMINIC MIR Not Available Start: 02-09-2024 End: 02-09-2024 Patient encounter procedure HOOK LOADER-C Naomy Garcia Work Phone: [facility]Ultrasound [place] Work Phone: Start: 02-09-2024 End: 02-09-2024 ambulatory HOOK LOADER-C Naomymyles Garcia Work Phone: [facility] Work Phone: Start: 01-06-2024 End: 01-06-2024 ambulatory DOMINIC MIR Not Available Start: 04-07-2023 End: 04-07-2023 ambulatory Dutch Mendez Other [facility] Other Start: 04-07-2023 Office outpatient ne w 20 minutes Dutch Mendez [facility] Start: 03-28-2023 End: 03-28-2023 ambulatory HOOK LOADER-C Naomy Garcia Work Phone: [facility] Work Phone: Start: 03-28-2023 End: 03-28-2023 Patient encounter procedure HOOK LOADER-C Naomymyles Garcia Work Phone: [facility] [place] Work Phone: Start: 01-17-2023 End: 01-17-[address] DOMINIC HESTER . Facility:[facility] Start: 01-17-2023 End: 01-18-[address] DOMINIC HESTER . Facility:[facility] Start: 01-03-2023 End: 01-04-[address] DOCTOR PATEL Facility:[facility] Start: 01-03-2023 End: 01-03-2023 Emergency department patient visit HOOK LOADER-C Naomy Garcia Work Phone: [facility]-Emergency Room Work Phone: Start: 12-26-2022 End: 12-27-[address] DOMINIC HESTER . Facility:[facility] Start: 12-25-2022 End: 12-26-[address] DOMINIC HESTER . Facility:[facility] Start: 08-02-2022 End: 08-02-2022 Emergency department patient visit HOOK LOADER-Lauren Swansonjuanito Work Phone: [facility]Emergency [facility] Start: 07-31-2022 Encounter for other preprocedural examination DR DOMINIC HESTER . [facility] Start: 07-29-2022 End: 07-30-2022 Encounter for other preprocedural examination DR DOMINIC HESTER . Facility:[facility] Start: 07-29-2022 End: 07-30-[address] DOMINIC HESTER . Facility:[facility] Start: 07-16-2022 End: 07-17-[address] DOMINIC HESTER . Facility:[facility] Start: 06-18-2022 End: 06-18-2022 Patient encounter procedure HOOK LOADER-Lauren Swansonjuanito Work Phone: [facility] [place] Start: 06-01-[address] DOMINIC HESTER . Facili ty:[facility]1 Start: 05-30-2022 End: 05-30-[address] DOMINIC HESTER . Facility:[facility] Start: 05-28-2022 End: 05-28-2022 ambulatory ROGELIO HERNANDEZ . Facility:[facility] Procedures Date Procedure Procedure Detail Performing Clinician Start: 08-23-2024 ALL PROGESTERONE Dominic Hester DO Work Phone: Start: 02-09-2024 Pelvic echography HOOK LOADER-C Naomy Radha Work Phone: Start: 02-09-2024 Transvaginal echography HOOK LOADER-Lauren Naomy Skyjuanito Work Phone: Start: 05-30-2023 Microscopic observat ion [Identifier] in Cervix by Cyto stain Dominic Hester DO Work Phone: Start: 01-03-2023 Diagnostic ultrasoun d of gravid uterus HOOK LOADER-C Naomy Radha Work Phone: Start: 01-03-2023 Ultrasonography of r ight kidney HOOK LOADER-C Naomy Radha Work Phone: Start: 01-03-2023 Transvaginal obstetr ic ultrasonography HOOK LOADER-Lauren Garcia Work Phone: Plan of Treatment Date Care Activity Detail Author Start: 05-30-2028 Screening for malign ant neoplasm of cervix [facility] Start: 12-20-2024 End: 12-20-2024 Patient encounter procedure 12/20/2024 2:10 PM EDT Office Visit [facility] [address] [place] [address] Dominic Hester, DO [address] [place], [place] [id number] [facility] Start: 06-06-2024 Influenza vaccination Influenza Vacc ine (#1) [facility] Start: 03-28-2023 [facility] Start: 01-03-2023 [facility] Start: 06-18-2022 [facility] Work Phone: Bacteria identified in Blood by Culture Blood Culture [facility] Glucose measurement estimated from glycated hemoglobin [facility] Hepatitis A virus antibody, IgM type [facility] Work Phone: Hepatitis B core antibody measurement, IgM type [facility] Work Phone: Hepatitis B virus surface Ag [Presence] in Serum or Plasma by Immunoassay [facility] Work Phone: Hepatitis C virus Ab Signal/Cutoff in Serum or Plasma by Immunoassay [facility] Work Phone: Hepatitis C virus RN A [log units/volume] (viral load) in Serum or Plasma by JOSE with probe detection [facility] Work Phone: Hepatitis C virus RN A [Units/volume] (viral load) in Serum or Plasma by JOSE with probe detection [facility] Work Phone: HIV 1+2 Ab+HIV1 p24 Ag [Presence] in Serum or Plasma by Immunoassay [facility] Work Phone: Patient Education [facility] Work Phone: Patient referral [facility] Work Phone: Reagin Ab [Presence] in Serum by RPR [facility] Work Phone: Payers Date Payer Category Payer Private Health Insurance [employer] [id number] 1990 Unknown [id number]. 593 1991 Unknown [id number] 2.840.1.703984.3.579.2. 593 1991 Unknown [id number] 2.840.1.929481.3.579.2. 593 1991 Unknown [id number] 2.16.840.1.247435.3.579.2. 593 1991 Unknown [id number] 2.16.840.1.229750.3.579.2. 593 1991 Unknown [id number] 2.16.840.1.946496.3.579.2. 593 1991 Unknown [id number] 2.16.840.1.307644.3.579.2. 593 1991 Unknown [id number] 2.16.840.1.295930.3.579.2. 593 1991 Unknown [id number] 2.16.840.1.183956.3.579.2. 593 1991 Unknown [id number] 2.16.840.1.905750.3.579.2. 593 1991 Unknown [id number] 2.16.840.1.489760.3.579.2. 593 1991 Unknown [id number] 2.16.840.1.684167.3.579.2. 593 1991 Unknown [id number] 2.16.840.1.697085.3.579.2. 1259 1991 Unknown [id number] 2.16.840.1.907965.3.579.2. 1259 1991 Unknown [id number] 2.16.840.1.349658.3.579.2. 1259 1991 Unknown [id number] 2.16.840.1.260354.3.579.2. 1259 1991 Unknown [id number] 2.16.840.1.684503.3.579.2. 1259 1959 Private Health Insurance [id number] Self-pay [id number] 1958 Unknown [id number] Self-pay Self Pay [id number] Social History Date Type Detail Facility Start: 01-05-2022 End: 06-17-2024 Tobacco smoking status NHIS Smoker (finding) [facility] Start: 1990 Sex Assigned At Female F [facility] Start: 01-03-2023 Tobacco smoking stat [facility] Never smoked tobacco (finding) [facility] Start: 03-09-2024 Sex Assigned At N DEQ Other [facility] Start: 10-06-2010 [...] nursing note reviewed. Exam conducted with a project geologist present. Vitals: Estimated body mass index is [...] Dominic Hester DO documented in this encounter [facility] Healthcare Evaluation note 04-07-2023 Note [...] right ear, unspecified type (ICD-10 - H60.501) [facility] Other Clinical Note 01-17-2023 Note Date & [...] products of conception were removed using an 8-Swedish suction curette. Excellent hemostasis was noted. The patient tolerated the procedure well. Sponge, lap, and needle counts were correct x 2. All instruments were then removed from the patient's vagina. The patient was taken to the Recovery Room in stable condition. ?? [facility] Clinical Note 07-29-2022 Note Date & [...] region. ANESTHESIA: General. SURGEON: Dominic Hester D.O. WOOD GRINDER: ADAN Flores URINE OUTPUT: Yellow and clear. [...] to Recovery Room in stable condition. [facility] Clinical Note 05-16-2020 Note Date & [...] Locations R1: This test was performed at: [facility], [address] [place] [address], [address] , [place], [facility] Comment on above: Performed By: #### 1 [id number] ####[facility] [id number] [place] [address] Clinical Note 05-14-2020 Note Date & Type Note Facility 05-14-2020 Note Call received from u /s, bladder not full. Conway catheter education provided to patient, agrees to insertion at this time. [facility] Evaluation note Note Date & Type Note Facility Evaluation note No assessment information availa [facility] Work Phone: Evaluation note Note Date & Type Note Facility Evaluation note Diagnosis Female infertility Female infertility of unspecified origin Anovulation Female infertility associated with anovulation documented in this encounter [facility] Discharge instructions Note Date & Type Note Facility Hospital Discharge instructions Additional Instructions Keep that area clean and dry Avoid putting any adhesives to area affected Take antibiotic as instructed until gone Clean with 9 deodorized soap Follow with your surgeon on Friday Return here if any problems persist or worsen including fever, chills or any other concerns [facility] Work Phone: Hospital Discharge instructions Note Date & Type Note Facility Hospital Discharge instructions Additional Instructions It is important you follow-up with your [facility] call for appointment. Please return here if you develop any fevers, chills, shortness of breath, numbness, tingling, unilateral weakness or any other concerns [facility] Work Phone: Summary Purpose Family History [...] section and content) DATE CREATED AUTHOR 04/20/2021 [facility] DATE CREATED AUTHOR AUTHOR'S ORGANIZ ATION 01/23/2023 [facility] DATE CREATED AUTHOR AUTHOR'S ORGANIZ ATION 06/19/2024 [facility] DATE CREATED AUTHOR AUTHOR'S ORGANIZ ATION 07/21/2024 [facility] EPIC Care Teams (unrecognized sec tion and content) Team Status: Inactive Member Role Status Dates Naomy Garcia , HOOK LOADER-C Primary Care Provider Active Dominic Hester Attending Provider Active Team Status: Active Member Role Status Dates Naomy Garcia , HOOK LOADER-C Primary Care Provider Active Team Status: Inactive Member Role Status Dates Naomy Garcia , HOOK LOADER-C Primary Care Provider Active Monika Camarillo , AUDIO VIDEO MECHANIC Emergency Provider Active Team Status: Inactive Member Role Status Dates Naomy Garcia , HOOK LOADER-C Primary Care Provider Active FANG Freeman-Lauren Attending Provider Active Team Status: Inactive Member Role Status Dates Naomy Garcia , HOOK LOADER-C Primary Care Provider Active S tart: February 09, 2024 End: February 09, 2024 Dominic Hester Attending Provider Active Start: Stephanie solomon 2023 End: February 09, 2024 Team Status: Active Member Role Status Dates PHYSICIAN NO FAMILY Primary Care Provider Active Team Status: Inactive Member Role Status Dates Naomy Garcia , HOOK LOADER-C Primary Care Provider Active S tart: February [...] June 17, 2024 End: June 17, 2024 Neck Cutter Relationship Specialty Start Date End Date Sylvia Romero PA [address] [place] [address] [place] [address] P[facility] - [facility] 07/06/24 Goals (unrecognized section and content) Goals may [...] BE BASED ON THE PRIMARY CLINICAL RECORDS. [employer] provides no warranty or guarantee of the accuracy or completeness of information in this document.
[2024-09-06 12:34] LABS: HCG Quantitative 6224 mIU/mL
== END 2024-09-06 10:31 | disposition home or self-care (01) ==
LOC: LAB 10:31
PROVIDERS: Visit Provider Obstetrics & Gynecology
DX: N97.0 Female infertility associated with anovulation (principal); N92.6 Irregular menstruation, unspecified
CPT/HCPCS: 36415; 84702

== ENCOUNTER 2024-09-08 13:50 | Outpatient (RCR) | payer OTHER, SELFPAY ==
[2024-09-08 15:04] LABS: HCG Quantitative 11466 mIU/mL
== END 2024-10-05 10:40 | disposition home or self-care (01) ==
LOC: LAB 13:50
PROVIDERS: Visit Provider Obstetrics & Gynecology
DX: N97.0 Female infertility associated with anovulation (principal); N92.6 Irregular menstruation, unspecified
CPT/HCPCS: 36415; 84702

== ENCOUNTER 2024-09-17 09:27 | Emergency (ER) | payer OTHER, SELFPAY ==
[2024-09-17 09:53] VITALS: BP 99/55; PULSE 58; TEMP 36.9; O2SAT 100; BMI 21.3
[2024-09-17 10:52] VITALS: BP 106/50; PULSE 56; O2SAT 100
[2024-09-17 10:54] LABS: Basophils Percent Auto 0.7 % (0.2-2.0); Eosinophils Absolute Auto 0.1 10^3/uL (0.0-0.7); Eosinophils Percent Auto 3.1 % (0.9-7.0); Hematocrit 39.1 % (36.0-48.0); Hemoglobin 13.5 g/dL (12.0-16.0); Lymphocytes Absolute Auto 1.1 10^3/uL (1.2-3.8); Lymphocytes Percent Auto 24.2 % (20.5-60.0); Mean Corpuscular HGB Conc 34.5 g/dL (29.9-35.2); Mean Corpuscular Hemoglobin 31.8 pg (26.7-34.0); Mean Platelet Volume 9.1 fL (9.5-13.5); Monocytes Absolute Auto 0.3 10^3/uL (0.3-0.8); Monocytes Percent Auto 7.4 % (1.7-12.0); Neutrophils Percent Auto 64.6 % (43.0-75.0); Platelet Count 225 10^3/uL (150-450); Red Blood Count 4.25 10^6/uL (4.20-5.40); Red Cell Distribution Width 12.1 % (11.0-15.0); White Blood Count 4.6 10^3/uL (4.0-11.0)
[2024-09-17 11:09] LABS: Alanine Aminotransferase 20 U/L (14-59); Albumin Globulin Ratio 1.1; Albumin Level 3.6 g/dL (3.4-5.0); Alkaline Phosphatase 62 U/L (46-116); Anion Gap 11.5; Aspartate Amino Transferase 12 U/L (15-37); BUN Creatinine Ratio 11.7; Bilirubin Total 0.6 mg/dL (0.2-1.0); Calcium 8.9 mg/dL (8.5-10.1); Carbon Dioxide 27.2 mmol/L (21.0-32.0); Chloride 103 mmol/L (98-107); Estimated GFR (African America >60 (>=60 mL/min/1.73m^2); Estimated GFR (Non-African Ame >60 (>=60 mL/min/1.73m^2); Globulin 3.2 g/dL; Glucose 91 mg/dL (74-106); Potassium 3.7 mmol/L (3.5-5.1); Sodium 138 mmol/L (136-145); Total Protein 6.8 g/dL (6.4-8.2)
[2024-09-17] MEDS: ONDANSETRON 4 MG RAPDIS TABLET SL (11:23)
--- NOTE | 2024-09-17 11:29 | US_ITS ---
[address] [address] Patient Name: BREANA CASAS MRN: [id number] date: 1990 Sex: F Assigned Patient Location: ER Current Patient Location: ER Accession/Order Number: [id number] Exam Date: 09/17/2024 12:00 Report Date: 09/17/2024 12:28 At the request of: DRAGAN BE Procedure: US OB transvaginal EXAMINATION: US OB transvaginal HISTORY: pain COMPARISON: No relevant comparison available. FINDINGS: Transvaginal images Martinez intrauterine gestation Gestational sac: 1.75 cm, 6 weeks 1 day CRL: 5.3 mm, 6 weeks 2 days Yolk sac: 2.3 mm Heart rate: 110 bpm The uterus is normal, retroverted. The right ovary contains a 2 cm area of soft tissue echotexture, a corpus luteal cyst is suspected The left ovary is normal The cervix is closed measuring 5.1 cm Clinical age: Unknown Ultrasound age: 6 weeks 2 days Ultrasound JONN: 05/11/2025 US/US OB transvaginal IMPRESSION: Viable martinez intrauterine gestation measuring 6 weeks 2 days Electronically authenticated by: TOR JIN Date: 09/17/2024 12:28
[2024-09-17 11:35] LABS: HCG Quantitative 41894 mIU/mL
[2024-09-17 12:07] LABS: Bilirubin Urine NEGATIVE (NEGATIVE); Blood Urine NEGATIVE (NEGATIVE); Clarity Urine CLEAR (CLEAR); Color Urine LT. YELLOW (YELLOW); Glucose Urine UA NEGATIVE (NEGATIVE); Ketones Urine 15 mg/dL (NEGATIVE); Leukocyte Esterase Urine NEGATIVE (NEGATIVE); Nitrite Urine NEGATIVE (NEGATIVE); Protein Urine NEGATIVE (NEG/TRACE); Urobilinogen Urine 0.2 EU/dL (0.2-1.0); pH Urine 6.5 (5.0-9.0)
[2024-09-17 12:08] LABS: Urine Microscopic Indicated NO
[2024-09-17] MEDS: ACETAMINOPHEN 325 MG TABLET 650 MG PO (13:26)
--- NOTE | 2024-09-17 15:14 | ED_ITS ---
HPI - Abdominal Pain General Chief Complaint: Abdominal Pain Stated Complaint: abdominal pain - preg unsure how many weeks Time Seen by Provider: 09/17/24 10:00 Source: family Mode of arrival: walk-in History of Present Illness HPI narrative: Patient has a history of 3 with 1 delivery and 1 and today is coming to us 6 weeks . 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 She had no vaginal bleeding no nausea vomiting or any other concern as she did not try [id number] medication she mentioned that the pain is not severe and it is tolerated Related Data Home Medications ?Medication ?Instructions ?Recorded ?Confirmed vit no.95-ferrous 1 tab PO DAILY 09/17/24 09/17/24 fumarate 28 mg-folic acid 800 mcg tablet () progesterone micronized (bulk) 100 1 ea miscellaneous DAILY 09/17/24 09/17/24 % powder Previous Rx's ?Medication ?Instructions ?Recorded ondansetron 4 mg disintegrating 4 mg PO Q8H PRN nausea and 09/17/24 tablet vomiting 5 days #15 tabs Allergies Allergy/AdvReac Type Severity Reaction Status Date / Time onion Allergy throat Verified 09/17/24 09:52 swelling Steristrips Allergy Blister Uncoded 09/17/24 09:52 Review of Systems ROS Status of ROS 10 or more systems reviewed and unremark able except as noted in history and below [facility] Medical History (Updated 09/17/24 @ 13:19 by Temitope Benoit MD) History of blood transfusion ?Z92.89 - Personal history of other medical treatment (ICD-10) Anemia ?D64.9 - Anemia, unspecified (ICD-10) Deep vein thrombosis (2018) ?I82.409 - Acute embolism and thrombosis of unspecified deep veins of unspecified lower extremity (ICD-10) Postoperative nausea and vomiting ?R11.2 - Nausea with vomiting, unspecified (ICD-10) ?Z98.890 - Other specified postprocedural states (ICD-10) Trichomoniasis ?A59.9 - Trichomoniasis, unspecified (ICD-10) Pelvic inflammatory disease ?N73.9 - Female pelvic inflammatory disease, unspecified (ICD-10) Folliculitis ?L73.9 - Follicular disorder, unspecified (ICD-10) Endometriosis ?N80.9 - Endometriosis, unspecified (ICD-10) Dyspareunia Asthma ?J45.909 - Unspecified asthma, uncomplicated (ICD-10) Anxiety ?F41.9 - Anxiety disorder, unspecified (ICD-10) Menorrhagia with irregular cycle ?N92.1 - Excessive and frequent menstruation with irregular cycle (ICD-10) Dysmenorrhea ?N94.6 - Dysmenorrhea, unspecified (ICD-10) Pelvic pain ?R10.2 - Pelvic and perineal pain (ICD-10) Surgical History (Updated 02/20/24 @ 12:53 by Taylor Jalloh NP) H/O local excision of skin lesion ?Z98.890 - Other specified postprocedural states (ICD-10) History of laparoscopy ?Z98.890 - Other specified postprocedural states (ICD-10) History of dilation and curettage ?Z98.890 - Other specified postprocedural states (ICD-10) History of section ?Z98.891 - History of uterine scar from previous surgery (ICD-10) Family History (Updated 02/20/24 @ 12:45 by Taylor Jalloh NP) Other Bipolar disorder Family history of cancer Family history of diabetes mellitus Family history of hypertension Melanoma Social History (Updated 02/20/24 @ 12:50 by Taylor Jalloh NP) Within the past year, how often did you have a drink containing alcohol: monthly or less Smoking status: Current every day smoker Do you use any of these nicotine containing products: vaping products Non-prescribed substance use: cannabis (any form) 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 General: Well-appearing and in no apparent distress. Skin: Warm, dry, no pallor noted. No rash. Head: Normocephalic, atraumatic. Neck: Supple, non-tender. Eye: Pupils are equal, round and EOMI. No scleral icterus. Ears, Nose, Mouth, and Throat: TM are clear, no nasal mucosal hypertrophy. Oral mucosa is moist, no posterior oropharynx erythema, uvula is mid-line Cardiovascular: Regular Rate and Rhythm without murmur, gallop or rub. Respiratory: No accessory muscle use or respiratory distress. Lungs are clear to auscultation, no wheezing, rales or rhonchi Chest Wall: no tenderness Back: No midline thoracic or lumbar vertebral tenderness. No CVA tenderness Musculoskeletal: normal ROM, no calf or popliteal tenderness, no lower extremity edema/swelling GI: Abdomen is soft, non-distended. Normal bowel sounds. No masses appreciated. No tenderness but suprapubic discomfort .no rebound, guarding, or rigidity noted. Neurological: A&O x4. No cranial nerve dysfunction observed. No truncal ataxia. Moves all extremities. Sensation intact. Psychiatric: Cooperative and interactive. Normal mood and affect. Constitutional Vital Signs, click to edit/add: Last Vital Signs Temp 98.4 F 09/17/24 09:53 Pulse 56 L 09/17/24 10:52 Resp 18 09/17/24 10:52 BP 106/50 09/17/24 10:52 Pulse Ox 100 09/17/24 10:52 O2 Del Method Room Air 09/17/24 09:53 Course Vital Signs Vital signs: Vital Signs Temperature 98.4 F 09/17/24 09:53 Pulse Rate 58 L 09/17/24 09:53 Respiratory Rate 18 09/17/24 09:53 Blood Pressure 99/55 09/17/24 09:53 Pulse Oximetry 100 09/17/24 09:53 Oxygen Delivery Method Room Air 09/17/24 09:53 Temperature 98.4 F 09/17/24 09:53 Pulse Rate 56 L 09/17/24 10:52 Respiratory Rate 18 09/17/24 10:52 Blood Pressure 106/50 09/17/24 10:52 Pulse Oximetry 100 09/17/24 10:52 Oxygen Delivery Method Room Air 09/17/24 09:53 MDM - Abdominal Pain MDM Narrative Medical decision making narrative: The patient have a history of right ovarian cyst that she is planned to have surgery for after she delivered her baby The patient CBC and chemistry showed no acute pathology Urinalysis is not positive for any UTI or bacteriuria Ultrasound of the pelvis shows that the patient have a right ovarian cyst in addition to intrauterine that is 6 weeks The patient presentation right now is not concerning for any acute appendicitis her pain is mild and she did not even use qjxb-jvp-dsnvoyz medication for she was provided Tylenol as well as Zofran in the ER after which she was feeling better She mentioned having nausea in the last few weeks and that is mostly secondary to she was provided was advised about hydration Right now the patient was instructed that she will continue Tylenol and Zofran for 24 hours and in case of no improvement she will come back to the ER I did explain to her that other reason that could be causing the abdominal pain but with her fact that she have suprapubic discomfort associate mostly with and the fact that her blood workup showed no acute significant pathology she was discharged with the above-mentioned plan The patient is to follow up with primary care physician in next 2-3 days or to return to the emergency department should any of the signs or symptoms worsen or new symptoms develop. The patient agrees with the following Diagnosis and Treatment plan and the patient will be discharged home. Lab Data Labs: Lab Results 09/17/24 09/17/24 Range/Units 10:45 11:37 WBC 4.6 (4.0-11.0) 10^3/uL RBC 4.25 (4.20-5.40) 10^6/uL Hgb 13.5 (12.0-16.0) g/dL Hct 39.1 (36.0-48.0) % MCV 92.0 (81.0-99.0) fL MCH 31.8 (26.7-34.0) pg MCHC 34.5 (29.9-35.2) g/dL RDW 12.1 (11.0-15.0) % Plt Count 225 (150-450) 10^3/uL MPV 9.1 L (9.5-13.5) fL Neut % (Auto) 64.6 (43.0-75.0) % Lymph % (Auto) 24.2 (20.5-60.0) % Dillingham % (Auto) 7.4 (1.7-12.0) % Eos % (Auto) 3.1 (0.9-7.0) % Baso % (Auto) 0.7 (0.2-2.0) % Neut # (Auto) 3.0 (1.4-6.5) 10^3/uL Lymph # (Auto) 1.1 L (1.2-3.8) 10^3/uL D[place]ham # (Auto) 0.3 (0.3-0.8) 10^3/uL Eos # (Auto) 0.1 (0.0-0.7) 10^3/uL Baso # (Auto) 0.0 (0.0-0.1) 10^3/uL Abs Immat Gran (auto) 0.00 (0.00-0.03) 10^3/uL Imm/Tot Granulo (auto) 0.0 (0.0-0.5) % Sodium 138 (136-145) mmol/L Potassium 3.7 (3.5-5.1) mmol/L Chloride 103 (98-107) mmol/L Carbon Dioxide 27.2 (21.0-32.0) mmol/L Anion Gap 11.5 BUN 9.0 (7.0-18.0) mg/dL Creatinine 0.77 (0.55-1.02) mg/dL Est GFR ( Amer) >60 (>=60 mL/min/1.73m^2) Est GFR (Non-Af Amer) >60 (>=60 mL/min/1.73m^2) BUN/Creatinine Ratio 11.7 Glucose 91 (74-106) mg/dL Calcium 8.9 (8.5-10.1) mg/dL Total Bilirubin 0.6 (0.2-1.0) mg/dL AST 12 L (15-37) U/L ALT 20 (14-59) U/L Alkaline Phosphatase 62 (46-116) U/L Total Protein 6.8 (6.4-8.2) g/dL Albumin 3.6 (3.4-5.0) g/dL Globulin 3.2 g/dL Albumin/Globulin Ratio 1.1 HCG, Quant 49990 mIU/mL Urine Color Lt. yellow (YELLOW) Urine Clarity Clear (CLEAR) Urine pH 6.5 (5.0-9.0) Ur Specific Dawson 1.020 (1.005-1.025) Urine Protein Negative (NEG/TRACE) mg/dL Urine Glucose (UA) Negative (NEGATIVE) mg/dL Urine Ketones 15 A (NEGATIVE) mg/dL Urine Occult Blood Negative (NEGATIVE) Urine Nitrite Negative (NEGATIVE) Urine Bilirubin Negative (NEGATIVE) Urine Urobilinogen 0.2 (0.2-1.0) EU/dL Ur Leukocyte Esterase Negative (NEGATIVE) Blood Type O Positive Antibody Screen Negative Discharge Plan Discharge Chief Complaint: Abdominal Pain Clinical Impression: Back pain affecting Patient Disposition: Home, Self-Care Time of Disposition Decision: 13:19 Condition: Good Prescriptions / Home Meds: New ondansetron 4 mg tablet,disintegrating 4 mg PO Q8H PRN (Reason: nausea and vomiting) 5 Days Qty: 15 0RF Discontinued ibuprofen 800 mg tablet 800 mg PO TID ibuprofen 800 mg tablet 800 mg PO Q8H PRN (Reason: pain) 14 Days Qty: 40 0RF hydrocodone-acetaminophen 5-325 mg tablet 1 tab PO Q4H PRN (Reason: pain) 4 Days Qty: 16 0RF No Action PNV cmb#95-ferrous fumarate-FA [] 28 mg iron- 800 mcg tablet 1 tab PO DAILY progesterone micronized (bulk) 100 % powder 1 ea MISCELLANEOUS DAILY Print Language: Sudanese Instructions: Acute Low Back Pain (ED) Referrals: Physician,Non-Staff, MD [Primary Care Provider] - 1 week Discharge Date/Time: 09/17/24 13:29
== END 2024-09-17 13:29 | disposition home or self-care (01) ==
PROVIDERS: Emergency Provider Emergency Medicine
DX: O26.891 Other specified pregnancy related conditions, first trimester (principal); O99.331 Smoking (tobacco) complicating pregnancy, first trimester; F17.290 Nicotine dependence, other tobacco product, uncomplicated; O34.81 Maternal care for other abnormalities of pelvic organs, first trimester; N83.201 Unspecified ovarian cyst, right side; Z3A.01 Less than 8 weeks gestation of pregnancy; M54.50 Low back pain, unspecified
CPT/HCPCS: 36415; 76817; 80053; 81003; 84702; 85025; 86850; 86900; 86901; 99284; Q0162

== ENCOUNTER 2024-10-19 13:45 | Outpatient (OUT) | payer OTHER, SELFPAY ==
[2024-10-19 14:18] LABS: BOX Test Reference Lab UNITY; BOX Test Sent Out UNITY
[2024-10-19 14:20] LABS: Basophils Percent Auto 0.3 % (0.2-2.0); Eosinophils Absolute Auto 0.2 10^3/uL (0.0-0.7); Eosinophils Percent Auto 2.4 % (0.9-7.0); Hematocrit 37.7 % (36.0-48.0); Immature Granulocytes Abs Auto 0.02 10^3/uL (0.00-0.03); Immature Granulocytes Pct Auto 0.3 % (0.0-0.5); Lymphocytes Absolute Auto 1.1 10^3/uL (1.2-3.8); Lymphocytes Percent Auto 16.8 % (20.5-60.0); Mean Corpuscular HGB Conc 34.5 g/dL (29.9-35.2); Mean Corpuscular Hemoglobin 32.1 pg (26.7-34.0); Mean Corpuscular Volume 93.1 fL (81.0-99.0); Mean Platelet Volume 9.1 fL (9.5-13.5); Monocytes Absolute Auto 0.3 10^3/uL (0.3-0.8); Monocytes Percent Auto 5.1 % (1.7-12.0); Neutrophils Absolute Auto 4.7 10^3/uL (1.4-6.5); Neutrophils Percent Auto 75.1 % (43.0-75.0); Platelet Count 221 10^3/uL (150-450); Red Blood Count 4.05 10^6/uL (4.20-5.40); Red Cell Distribution Width 12.5 % (11.0-15.0); White Blood Count 6.3 10^3/uL (4.0-11.0)
[2024-10-19 14:46] LABS: Estimated Average Glucose 97 mg/dL
[2024-10-19 14:57] LABS: Cannabinoid Screen Urine POSITIVE (NEGATIVE)
[2024-10-19 14:58] LABS: Amphetamine Screen Urine NEGATIVE (NEGATIVE); Barbiturates Screen Urine NEGATIVE (NEGATIVE); Benzodiazepines Screen Urine NEGATIVE (NEGATIVE); Buprenorphine Screen Urine NEGATIVE (NEGATIVE); Cocaine Screen Urine NEGATIVE (NEGATIVE); Methadone Screen Urine NEGATIVE (NEGATIVE); Methamphetamines Screen Urine NEGATIVE (NEGATIVE); Opiate Screen Urine NEGATIVE (NEGATIVE); Oxycodone Screen Urine NEGATIVE (NEGATIVE); Phencyclidine Screen Urine NEGATIVE (NEGATIVE); Tricyclic Antidepressant Urine NEGATIVE (NEGATIVE)
[2024-10-20 06:12] LABS: HBsAg Screen Negative (Negative); HCV Ab Non Reactive (Non Reactive); HIV Ab/p24 Ag Screen Non Reactive (Non Reactive)
[2024-10-20 13:07] LABS: Rapid Plasma Reagin, Quant Non Reactive titer (NonRea<1:1)
[2024-10-22 23:07] LABS: Cannabinoid Positive (.); Carboxy THC Conf, MS, UR 351 ng/mL (Cutoff=10)
== END 2024-10-19 13:46 | disposition home or self-care (01) ==
LOC: LAB 13:49
PROVIDERS: Visit Provider Obstetrics & Gynecology
DX: Z34.01 Encounter for supervision of normal first pregnancy, first trimester (principal); N92.6 Irregular menstruation, unspecified; Z36.0 Encounter for antenatal screening for chromosomal anomalies
CPT/HCPCS: 36415; 80307; 80349; 83036; 85025; 86592; 86762; 86803; 86850; 86900; 86901; 87086; 87340; 87389

== ENCOUNTER 2024-11-30 19:45 | Outpatient (REF) | payer OTHER, SELFPAY ==
--- OUTSIDE RECORDS SUMMARY | 2024-11-30 19:49 | XMS_ITS | CCD ---
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 Reference Range is dependent on time and content of last meal. Glucose of more than 200 mg/dL in a nonstressed, ambulatory subject supports the diagnosis of Diabetes Mellitus. ADA recommended reference range Performed By: #### M Yonatan, CMP, CBC #### [facility] [address] Potassium [Moles/Vol] 3.8 mmol/L Normal 3.5-5.1 [facility] Comment on above: Performed By: #### Tony Tam, CMP, CBC #### [address] Protein [Mass/Vol] 6.0 g/dL Low 6.4-8.9 [facility] Comment on above: Performed By: #### Tony Tam, CMP, CBC #### [address] Sodium [Moles/Vol] 135 mmol/L Low 136-145 [facility] Comment on above: Performed By: #### M Yonatan, CMP, CBC #### [address] Urea nitrogen [Mass/Vol] 9 mg/dL Normal 7-25 [facility] Comment on above: Performed By: #### M Yonatan, CMP, CBC #### [facility] [address] [place] [address] [place] Creatinine [Mass/volume] in Serum or PlasmaOrdered By: Ale Fragoso on 10-26-2024 Creatinine [Mass/Vol] Creatinine [Mass/volume] in Serum or Plasma Low 0.60-1.20 [facility] Eosinophils Auto (Bld) [#/Vo l]Ordered By: Ale Fragoso on 10-26-2024 Eosinophils (Bld) [#/Vol] Automated eosinophil count 0.0-0.45 [facility] Eosinophils/100 WBC Auto (Bl d)Ordered By: Ale Fragoso on 10-26-2024 Eosinophils/100 WBC (Bld) Automated eosinophil % . [facility] Erythrocyte distribution wid th Auto (RBC) [Ratio]Ordered By: Ale Fragoso on 10-26-2024 Erythrocyte distribution width (RBC) [Ratio] Erythrocyte distribution width [Ratio] by Automated count 11.9-15.3 [facility] Globulin Calc (S) [Mass/Vol] Ordered By: Ale Fragoso on 10-26-2024 Globulin (S) [Mass/Vol] Serum globulin measurement by calculation (mass/volume) [facility] Glucose [Mass/volume] in Ser um or PlasmaOrdered By: Ale Fragoso on 10-26-2024 Glucose [Mass/Vol] Glucose [Mass/volume] in Serum or Plasma 70-100 [facility] Comment on above: ADA recommended refe rence rangeRandom Glucose Reference Range is dependent on time and content of last meal. Glucose of more than 200 mg/dL in a nonstressed, ambulatory subject supports the diagnosis of Diabetes Mellitus. Glucose [Mass/volume] in Uri ne by Test stripOrdered By: Ale Fragoso on 10-26-2024 Glucose Test strip (U) [Mass/Vol] Glucose [Mass/volume] in Urine by Test strip Normal [facility] Hematocrit Auto (Bld) [Volum e fraction]Ordered By: Ale Fragoso on 10-26-2024 Hematocrit (Bld) [Volume fraction] Hematocrit [Volume Fraction] of Blood by Automated count 34.0-46.4 [facility] Hemoglobin Test strip Ql (U) Ordered By: Ale Fragoso on 10-26-2024 Hemoglobin Ql (U) Hemoglobin [Presence] in Urine by Test strip Negative [facility] Hemoglobin [Mass/volume] in BloodOrdered By: Ale Fragoso on 10-26-2024 Hemoglobin (Bld) [Mass/Vol] Hemoglobin [Mass/volume] in Blood 11.8-15.4 [facility] Ketones Test strip Ql (U)Ord ered By: Ale Fragoso on 10-26-2024 Ketones Ql (U) Ketones [Presence] in Urine by Test strip Negative [facility] Leukocyte esterase [Presence ] in Urine by Test stripOrdered By: Ale Fragoso on 10-26-2024 Leukocyte esterase Test strip Ql (U) Leukocyte esterase [Presence] in Urine by Test strip Negative [facility] Leukocytes [#/volume] correc ira for nucleated erythrocytes in Blood by Automated counOrdered By: Ale Fragoso on 10-26-2024 WBC corrected for nucl RBC Auto (Bld) [#/Vol] Leukocytes [#/volume] corrected for nucleated erythrocytes in Blood by Automated coun 3.8-11.6 [facility] Lymphocytes Auto (Bld) [#/Vo l]Ordered By: Ale Fragoso on 10-26-2024 Lymphocytes (Bld) [#/Vol] Lymphocytes [#/volume] in Blood by Automated count Low 1.00-4.8 [facility] Lymphocytes/100 WBC Auto (Bl d)Ordered By: Ale Fragoso on 10-26-2024 Lymphocytes/100 WBC (Bld) Lymphocytes/100 leukocytes in Blood by Automated count . [facility] MCH Auto (RBC) [Entitic mass ]Ordered By: Ale Fragoso on 10-26-2024 MCH (RBC) [Entitic mass] MCH [Entitic mass] by Automated count 24.7-34.3 [facility] MCHC Auto (RBC) [Mass/Vol]Or dered By: Ale Fragoso on 10-26-2024 MCHC (RBC) [Mass/Vol] MCHC [Mass/volume] by Automated count 32.0-35.0 [facility] MCV Auto (RBC) [Entitic vol] Ordered By: Ale Fragoso on 10-26-2024 MCV (RBC) [Entitic vol] MCV [Entitic vol ume] by Automated count 80-100 [facility] Magnesiumon 10-26-2024 Magnesium [Mass/Vol] 1.9 mg/dL Normal 1.9-2.7 [facility] Comment on above: Result Comment: PERF ORMED BY: [facility] [address] [place] [address] PATHOLOGIST FURNACE OPERATOR OIL OR GAS BRANDI GONZALEZ M.D. Performed By: #### M G, CMP, CBC #### [facility] [address] Magnesium [Mass/volume] in S mehdi or PlasmaOrdered By: Ale Fragoso on 10-26-2024 Magnesium [Mass/Vol] Magnesium [Mass/volume] in Serum or Plasma 1.9-2.7 [facility] Monocyte distribution width [Entitic volume] in Blood by AutomatedOrdered By: Ale Fragoso on 10-26-2024 Monocyte distribution width Auto (Bld) [Entitic vol] Monocyte distribution width [Entitic volume] in Blood by Automated 0.00-20.00 [facility] Monocytes Auto (Bld) [#/Vol] Ordered By: Ale Fragoso on 10-26-2024 Monocytes (Bld) [#/Vol] Automated blood monocyte count 0.0-0.8 [facility] Monocytes/100 WBC Auto (Bld) Ordered By: Ale Fragoso on 10-26-2024 Monocytes/100 WBC (Bld) Automated monocyte % . [facility] Neutrophils Auto (Bld) [#/Vo l]Ordered By: Ale Fragoso on 10-26-2024 Neutrophils (Bld) [#/Vol] Neutrophils [#/volume] in Blood by Automated count 1.8-7.7 [facility] Neutrophils/100 WBC Auto (Bl d)Ordered By: Ale Fragoso on 10-26-2024 Neutrophils/100 WBC (Bld) Automated neutrophil % . [facility] Nitrite Test strip Ql (U)Ord ered By: Ale Fragoso on 10-26-2024 Nitrite Ql (U) Nitrite [Presence] in Urine by Test strip Negative [facility] No Panel InformationOrdered By: Ale Fragoso on 10-26-2024 Estimated GFR (CKD-EPI) > 60.0 mL/Min [facility] Creatinine Clearance (Chem 121.47 [facility] Nucleated erythrocytes [Pres ence] in Blood by Automated countOrdered By: Ale Fragoso on 10-26-2024 Nucleated RBC Auto Ql (Bld) Nucleated erythrocytes [Presence] in Blood by Automated count 0-0.5 [facility] Platelet mean volume Auto (B ld) [Entitic vol]Ordered By: Ale Fragoso on 10-26-2024 Platelet mean volume (Bld) [Entitic vol] Platelet mean volume [Entitic volume] in Blood by Automated count 6.3-10.7 [facility] Platelets Auto (Bld) [#/Vol] Ordered By: Ale Fragoso on 10-26-2024 Platelets (Bld) [#/Vol] Platelets [#/vol ume] in Blood by Automated count 150-450 [facility] Potassium [Moles/volume] in Serum or PlasmaOrdered By: Ale Fragoso on 10-26-2024 Potassium [Moles/Vol] Potassium [Moles/volume] in Serum or Plasma 3.5-5.1 [facility] Protein Test strip (U) [Mass /Vol]Ordered By: Ale Fragoso on 10-26-2024 Protein (U) [Mass/Vol] Protein [Mass/volume] in Urine by Test strip Negative [facility] Protein [Mass/volume] in Ser um or PlasmaOrdered By: Ale Fragoso on 10-26-2024 Protein [Mass/Vol] Protein [Mass/volume] in Serum or Plasma Low 6.4-8.9 [facility] RBC Auto (Bld) [#/Vol]Ordere d By: Ale Fragoso on 10-26-2024 RBC (Bld) [#/Vol] Erythrocytes [#/volume] in Blood by Automated count 3.60-5.00 [facility] Serum or plasma albumin/glob ulin mass ratioOrdered By: Ale Fragoso on 10-26-2024 Albumin/Globulin [Mass ratio] Serum or plasma albumin/globulin mass ratio [facility] Serum or plasma anion gap de terminationOrdered By: Ale Fragoso on 10-26-2024 Anion gap [Moles/Vol] Serum or plasma anion gap determination 6.0-15.0 [facility] Sodium [Moles/volume] in Ser um or PlasmaOrdered By: Ale Fragoso on 10-26-2024 Sodium [Moles/Vol] Sodium [Moles/volume] in Serum or Plasma Low 136-145 [facility] Specific gravity Test strip (U) [Rel density]Ordered By: Ale Fragoso on 10-26-2024 Specific gravity (U) [Rel density] Specific gravity of Urine by Test strip 1.001-1.030 [facility] US renal RTon 10-26-2024 US renal RT [facility] Main [address] [place] [address] Ultrasound Report Signed Patient: Breana John MR#: [id number] : 1990 Acct:[id number] Age/Sex: 33 / F ADM Date: 10/26/24 Loc: ER Room: Type: [facility] ER Attending Dr: Ordering Provider: Ale Fragoso APRN Date of Service: 10/26/24 US/US renal RT: right flank pain Copies to: Ale Fragoso APRN Right Renal Ultrasound HISTORY: Right flank pain. COMPARISON: None RIGHT kidney measures 11.8 cm. Left kidney not assessed. Hydronephrosis: No right hydronephrosis RENAL STONE: No shadowing renal calculus is seen. RENAL LESIONS: No renal lesion identified. URINARY BLADDER: Left ureteral jet identified. Right ureteral jet not seen. Minimal urinary bladder distention. REPRODUCTIVE STRUCTURES Not assessed incidental shadowing gallstone US/US renal RT IMPRESSION : No right hydronephrosis. Impression dictated by: Tanner Burleson M.D.10/26/2024 11:46 AM Dictation Location: [place] [address] Tech: Karmen Yamil Transcribed By: [facility] 10/26/24 1146 Dictated By: Tanner Burleson DO 10/26/24 1139 Signed By: 10/26/24 1146 Normal [facility] Urea nitrogen [Mass/volume] in Serum or PlasmaOrdered By: Ale Fragoso on 10-26-2024 Urea nitrogen [Mass/Vol] Urea nitrogen [Mass/volume] in Serum or Plasma 04-29 [facility] Urinalysison 10-26-2024 Appearance (U) Clear Normal Clear [facility] Comment on above: Order Comment: Name Collection Type:: Clean-Voided Midstream Performed By: #### U A #### [address] Bilirubin,Urine Negative Normal Negative [facility] Comment on above: Order Comment: Name Collection Type:: Clean-Voided Midstream Performed By: #### U A #### [place] [address] [place] Color (U) Light-Yellow Normal Yellow [facility] Comment on above: Order Comment: Name Collection Type:: Clean-Voided Midstream Performed By: #### U A #### [place] [address] [place] Glucose Ql (U) Normal Normal Normal [facility] Comment on above: Order Comment: Name Collection Type:: Clean-Voided Midstream Performed By: #### U A #### [address] Ketones Ql (U) Negative Normal Negative [facility] Comment on above: Order Comment: Name Collection Type:: Clean-Voided Midstream Performed By: #### U A #### [place] [address] [place] Leukocyte esterase Test strip Ql (U) Negative Normal Negative [facility] Comment on above: Order Comment: Name Collection Type:: Clean-Voided Midstream Performed By: #### U A #### [place] [address] [place] Nitrite,Urine Negative Normal Negative [facility] Comment on above: Order Comment: Name Collection Type:: Clean-Voided Midstream Performed By: #### U A #### [place] [address] [place] Occult Blood,Urine Negative Normal Negative [facility] Comment on above: Order Comment: Name Collection Type:: Clean-Voided Midstream Result Comment: PERF ORMED BY: [place] [address] PATHOLOGIST FURNACE OPERATOR OIL OR GAS BRANDI GONZALEZ M.D. Performed By: #### U A #### [place] [address] [place] pH (U) 6.5 [pH] Normal 5.0-9.0 [facility] Comment on above: Order Comment: Name Collection Type:: Clean-Voided Midstream Performed By: #### U A #### [facility] [address] Protein,Urine Negative Normal Negative [facility] Comment on above: Order Comment: Name Collection Type:: Clean-Voided Midstream Performed By: #### U A #### [facility] [address] Specificy [place],Urine 1.020 Normal 1.001-1.030 [facility] Comment on above: Order Comment: Name Collection Type:: Clean-Voided Midstream Performed By: #### U A #### [facility] [address] Urobilinogen,Urine Normal Normal Normal [facility] Comment on above: Order Comment: Name Collection Type:: Clean-Voided Midstream Performed By: #### U A #### [facility] [address] Urobilinogen Test strip (U) [Mass/Vol]Ordered By: Ale Fragoso on 10-26-2024 Urobilinogen (U) [Mass/Vol] Urobilinogen [Mass/volume] in Urine by Test strip Normal [facility] WBC Auto (Bld) [#/Vol]Ordere d By: Ale Fragoso on 10-26-2024 WBC (Bld) [#/Vol] Leukocytes [#/volume] in Blood by Automated count 3.8-11.6 [facility] pH Test strip (U)Ordered By: Ale Fragoso on 10-26-2024 pH (U) pH of Urine by Test strip 5.0-9.0 [facility] BOX TESTon 10-19-2024 BOX TEST SENT OUT [facility] [address] [facility] [address] 10/19/24 [facility] ( test) Ql (U)o n 10-01-2024 Interpretation and review of laboratory results Abnormal [facility] Preg Test, Ur Positive Negative [facility] Urinalysis macro (dipstick) panel (U)on 10-01-2024 Bilirubin, UA Negative Negative - 4(70) +++ mg/dL [facility] Blood, UA Negative Negative - 50 Brent/mcL [facility] Clarity, UA Clear [facility] Color, UA Yellow [facility] Glucose, UA Negative Negative - 2000(110) ++++ mg/dL [facility] Interpretation and review of laboratory results Normal [facility] Ketones, UA Negative Negative - 160(16) ++++ mg/dL [facility] Leukocytes, UA Negative Negative - 500+++ Kae/mcL [facility] Nitrite, UA Negative Negative - Positive [facility] pH, UA 6 5 - 9 [facility] Protein, UA Negative Negative - 2000(20) ++++ mg/dL [facility] Spec Grav, UA 1.005 1 - 1.03 [facility] Urobilinogen, UA 0.2 0.2 - 12 mg/dL [facility] PREG QUANT HCGon 024 HCG QUANTITATIVE 20311 mIU/mL [facility] Comment on above: 5-50 0.2-1 WEEK 50-500 1-2 WEEKS 100-5,000 2-3 WEEKS 500-10,000 3-4 WEEKS 1,000-50,000 4-5 WEEKS 10,000-100,000 5-6 WEEKS 15,000-200,000 6-8 WEEKS 10,000-100,000 2-3 MONTHS [facility] PREG QUANT HCGon 024 HCG QUANTITATIVE 6224 mIU/mL [facility] Comment on above: 5-50 0.2-1 WEEK 50-500 1-2 WEEKS 100-5,000 2-3 WEEKS 500-10,000 3-4 WEEKS 1,000-50,000 4-5 WEEKS 10,000-100,000 5-6 WEEKS 15,000-200,000 6-8 WEEKS 10,000-100,000 2-3 MONTHS [facility] ALL PROGESTERONEon 4 PROGESTERONE 21.4 ng/mL . [facility] Comment on above: Follicular phase 0.1 - 0.9 Luteal phase 1.8 - 23.9 Ovulation phase 0.1 - 12.0 First trimester 11.0 - 44.3 Second trimester 25.4 - 83.3 Third trimester 58.7 - 214.0 Postmenopausal 0.0 - 0.1 Performed at: CB - [facility] [address] [id number] [employer]: Lebron Manzo PhD, Phone: [phone] [facility] HCG ( test) Ql (U)o n 06-29-2024 Interpretation and review of laboratory results Normal [facility] Preg Test, Ur Negative [facility] Urinalysis macro (dipstick) panel (U)on 06-29-2024 Bilirubin, UA Negative Negative - 4(70) +++ mg/dL [facility] Blood, UA Positive Negative - 50 Brent/mcL [facility] Comment on above: trace Clarity, UA Clear [facility] Color, UA Yellow [facility] Glucose, UA Negative Negative - 1999(110) ++++ mg/dL [facility] Interpretation and review of laboratory results Normal [facility] Ketones, UA Negative Negative - 160(16) ++++ mg/dL [facility] Leukocytes, UA Negative Negative - 500+++ Kae/mcL [facility] Nitrite, UA Negative Negative - Positive [facility] pH, UA 5.5 5 - 9 [facility] Protein, UA Negative Negative - 1999(20) ++++ mg/dL [facility] Spec Grav, UA 1.020 1 - 1.03 [facility] Urobilinogen, UA 1.0 0.2 - 12 mg/dL [facility] Alanine aminotransferase [En zymatic activity/volume] in Serum or PlasmaOrdered By: PROVIDER TEMP on 06-17-2024 ALT [Catalytic activity/Vol] 15 U/L Normal 7-52 [facility] Comment on above: Performed By: #### L IPASE, HEPATIC, BMP, CBC #### [address] Albumin [Mass/volume] in Ser um or Plasma by Bromocresol green (BCG) dye binding methoOrdered By: PROVIDER TEMP on 06-17-2024 Albumin BCG dye [Mass/Vol] 4.5 g/dL 3.5-5.7 [facility] Alkaline phosphatase [Enzyma tic activity/volume] in Serum or PlasmaOrdered By: PROVIDER TEMP on 06-17-2024 ALP [Catalytic activity/Vol] 58 U/L Normal 34-104 [facility] Comment on above: Performed By: #### L IPASE, HEPATIC, BMP, CBC #### [facility] [address] [place] [address] Aspartate aminotransferase [ Enzymatic activity/volume] in Serum or PlasmaOrdered By: PROVIDER TEMP on 06-17-2024 AST [Catalytic activity/Vol] 17 U/L Normal 13-39 [facility] Comment on above: Performed By: #### L IPASE, HEPATIC, BMP, CBC #### [address] Automated basophil %Ordered By: PROVIDER TEMP on 06-17-2024 Basophils/100 WBC (Bld) 1.1 % Normal . [facility] Comment on above: Performed By: #### L IPASE, HEPATIC, BMP, CBC #### [address] Automated basophil countOrde red By: PROVIDER TEMP on 06-17-2024 Basophils (Bld) [#/Vol] 0.0 10*3/uL Normal 0.0-0.2 [facility] Comment on above: Result Comment: PERF ORMED BY: [place] [address] PATHOLOGIST FURNACE OPERATOR OIL OR GAS KHANG WEEKS M.D. Performed By: #### L IPASE, HEPATIC, BMP, CBC #### [address] Automated blood monocyte cou ntOrdered By: PROVIDER TEMP on 06-17-2024 Monocytes (Bld) [#/Vol] 0.3 10*3/uL Normal 0.0-0.8 [facility] Comment on above: Performed By: #### L IPASE, HEPATIC, BMP, CBC #### [address] Automated eosinophil %Ordere d By: PROVIDER TEMP on 06-17-2024 Eosinophils/100 WBC (Bld) 9.5 % Normal . [facility] Comment on above: Performed By: #### L IPASE, HEPATIC, BMP, CBC #### [address] [place] [address] [place] Automated eosinophil countOr dered By: PROVIDER TEMP on 06-17-2024 Eosinophils (Bld) [#/Vol] 0.4 10*3/uL Normal 0.0-0.45 [facility] Comment on above: Performed By: #### L IPASE, HEPATIC, BMP, CBC #### [facility] [address] [place] [address] Automated monocyte %Ordered By: PROVIDER TEMP on 06-17-2024 Monocytes/100 WBC (Bld) 7.1 % Normal . [facility] Comment on above: Performed By: #### L IPASE, HEPATIC, BMP, CBC #### [facility] [address] [place] [address] Automated neutrophil %Ordere d By: PROVIDER TEMP on 06-17-2024 Neutrophils/100 WBC (Bld) 51.1 % Normal . [facility] Comment on above: Performed By: #### L IPASE, HEPATIC, BMP, CBC #### [address] Basic Metabolic Panelon 06-06 Creatinine Clr Calc Pharmacy 78.60 Normal [facility] Comment on above: Performed By: #### L IPASE, HEPATIC, BMP, CBC #### [address] GFR/1.73 sq M.predicted MDRD (S/P/Bld) [Vol rate/Area] mL/min/{1.73_m2} Normal [facility] Comment on above: Performed By: #### L IPASE, HEPATIC, BMP, CBC #### [address] Bilirubin Test strip Ql (U)O rdered By: PROVIDER TEMP on 06-17-2024 Bilirubin Ql (U) Negative Negative [facility] Bilirubin.direct [Mass/volum e] in Serum or PlasmaOrdered By: PROVIDER TEMP on 06-17-2024 Bilirubin.direct [Mass/Vol] 0.20 mg/dL High 0.03-0.18 [facility] Bilirubin.total [Mass/volume ] in Serum or PlasmaOrdered By: PROVIDER TEMP on 06-17-2024 Bilirubin [Mass/Vol] 0.8 mg/dL Normal 0.3-1.0 [facility] Comment on above: Performed By: #### L IPASE, HEPATIC, BMP, CBC #### [facility] [address] [place] [address] [place] Calcium [Mass/volume] in Ser um or PlasmaOrdered By: PROVIDER TEMP on 06-17-2024 Calcium [Mass/Vol] 9.2 mg/dL Normal 8.6-10.3 [facility] Comment on above: Performed By: #### L IPASE, HEPATIC, BMP, CBC #### [facility] [address] [place] [address] Carbon dioxide, total [Moles /volume] in Serum or PlasmaOrdered By: PROVIDER TEMP on 06-17-2024 CO2 [Moles/Vol] 27.0 mmol/L Normal 21.0-31.0 [facility] Comment on above: Performed By: #### L IPASE, HEPATIC, BMP, CBC #### [facility] [address] [place] [address] [place] Chloride [Moles/volume] in S mehdi or PlasmaOrdered By: PROVIDER TEMP on 06-17-2024 Chloride [Moles/Vol] 106 mmol/L Normal 98-107 [facility] Comment on above: Performed By: #### L IPASE, HEPATIC, BMP, CBC #### [facility] [address] [place] [address] [place] Color of Urine by AutoOrdere d By: PROVIDER TEMP on 06-17-2024 Color (U) Light-yellow Normal Yellow [facility] Comment on above: Order Comment: Name Collection Type:: Clean-Voided Midstream Performed By: #### U HCG, UA ####[facility] [id number] Complete Blood Count Auto Di ffon 06-17-2024 Mean Corpuscular HGB Conc 34.6 g/dL Normal 32.0-35.0 [facility] Comment on above: Performed By: #### L IPASE, HEPATIC, BMP, CBC #### [facility] [address] Monocytes/100 WBC (Bld) 16.54 % Normal 0.00-20.00 [facility] Comment on above: Performed By: #### L IPASE, HEPATIC, BMP, CBC #### [facility] [address] NRBC% 0.1 /100{WBC} Normal 0-0.5 [facility] Comment on above: Performed By: #### L IPASE, HEPATIC, BMP, CBC #### [facility] [address] Creatinine [Mass/volume] in Serum or PlasmaOrdered By: PROVIDER TEMP on 06-17-2024 Creatinine [Mass/Vol] 0.85 mg/dL Normal 0.60-1.20 [facility] Comment on above: Performed By: #### L IPASE, HEPATIC, BMP, CBC #### [facility] [address] Erythrocyte distribution wid th [Ratio] by Automated countOrdered By: PROVIDER TEMP on 06-17-2024 Erythrocyte distribution width (RBC) [Ratio] 12.7 % Normal 11.9-15.3 [facility] Comment on above: Performed By: #### L IPASE, HEPATIC, BMP, CBC #### [address] Erythrocytes [#/volume] in B lood by Automated countOrdered By: PROVIDER TEMP on 06-17-2024 RBC (Bld) [#/Vol] 4.50 10*6/uL Normal 3.60-5.00 [facility] Comment on above: Performed By: #### L IPASE, HEPATIC, BMP, CBC #### [facility] [address] [place] [address] Glucose [Mass/volume] in Ser um or PlasmaOrdered By: PROVIDER TEMP on 06-17-2024 Glucose [Mass/Vol] 86 mg/dL Normal 70-100 [facility] Comment on above: ADA recommended refe rence rangeRandom Glucose Reference Range is dependent on time and content of last meal. Glucose of more than 200 mg/dL in a nonstressed, ambulatory subject supports the diagnosis of Diabetes Mellitus. Result Comment: [place] Glucose Reference Range is dependent on time and content of last meal. Glucose of more than 200 mg/dL in a nonstressed, ambulatory subject supports the diagnosis of Diabetes Mellitus. ADA recommended reference range Performed By: #### L IPASE, HEPATIC, BMP, CBC #### [facility] [address] Glucose [Mass/volume] in Uri ne by Test stripOrdered By: PROVIDER TEMP on 06-17-2024 Glucose Test strip (U) [Mass/Vol] Normal mg/dL Normal [facility] HCG ( test) IA.rapi d Ql (U)Ordered By: PROVIDER TEMP on 06-17-2024 HCG ( test) Ql (U) Negative [facility] HCG,Urineon 06-17-2024 Beta HCG ( test) Ql (U) Negative Normal [facility] Comment on above: Order Comment: Name Collection Type:: Clean-Voided Midstream Result Comment: PERF ORMED BY: [place] [address] PATHOLOGIST FURNACE OPERATOR OIL OR GAS KHANG WEEKS M.D. Performed By: #### U HCG, UA ####[facility] Hematocrit [Volume Fraction] of Blood by Automated countOrdered By: PROVIDER TEMP on 06-17-2024 Hematocrit (Bld) [Volume fraction] 41.7 % Normal 34.0-46.4 [facility] Comment on above: Performed By: #### L IPASE, HEPATIC, BMP, CBC #### [facility] [address] Hemoglobin Test strip Ql (U) Ordered By: PROVIDER TEMP on 06-17-2024 Hemoglobin Ql (U) Negative Negative [facility] Hemoglobin [Mass/volume] in BloodOrdered By: PROVIDER TEMP on 06-17-2024 Hemoglobin (Bld) [Mass/Vol] 14.4 g/dL Normal 11.8-15.4 [facility] Comment on above: Performed By: #### L IPASE, HEPATIC, BMP, CBC #### [facility] [address] Hepatic Panelon 06-17-2024 Albumin [Mass/Vol] 4.5 g/dL Normal 3.5-5.7 [facility] Comment on above: Performed By: #### L IPASE, HEPATIC, BMP, CBC #### [facility] [address] Bilirubin,Indirect 0.6 mg/dL Normal [facility] Comment on above: Performed By: #### L IPASE, HEPATIC, BMP, CBC #### [facility] [address] Bilirubin.indirect [Mass/Vol] 0.20 mg/dL High 0.03-0.18 [facility] Comment on above: Performed By: #### L IPASE, HEPATIC, BMP, CBC #### [address] Ketones [Presence] in Urine by Test stripOrdered By: PROVIDER TEMP on 06-17-2024 Ketones Ql (U) 1+ High Negative [facility] Comment on above: Order Comment: Name Collection Type:: Clean-Voided Midstream Performed By: #### U HCG, UA ####[address] Leukocyte esterase [Presence ] in Urine by Test stripOrdered By: PROVIDER TEMP on 06-17-2024 Leukocyte esterase Test strip Ql (U) Negative Normal Negative [facility] Comment on above: Order Comment: Name Collection Type:: Clean-Voided Midstream Performed By: #### U HCG, UA ####[place] [address] [place] Leukocytes [#/volume] correc ira for nucleated erythrocytes in Blood by Automated counOrdered By: PROVIDER TEMP on 06-17-2024 WBC corrected for nucl RBC Auto (Bld) [#/Vol] 4.4 10*3/uL 3.8-11.6 [facility] Leukocytes [#/volume] in Blo od by Automated countOrdered By: PROVIDER TEMP on 06-17-2024 WBC (Bld) [#/Vol] 4.4 10*3/uL Normal 3.8-11.6 [facility] Comment on above: Performed By: #### L IPASE, HEPATIC, BMP, CBC #### [address] Lipase [Enzymatic activity/v olume] in Serum or PlasmaOrdered By: PROVIDER TEMP on 06-17-2024 Lipase [Catalytic activity/Vol] 16.0 U/L Normal 11.0-82.0 [facility] Comment on above: Result Comment: PERF ORMED BY: [place] [address] PATHOLOGIST FURNACE OPERATOR OIL OR GAS KHANG WEEKS M.D. Performed By: #### L IPASE, HEPATIC, BMP, CBC #### [place] [address] [place] Lymphocytes [#/volume] in Bl ood by Automated countOrdered By: PROVIDER TEMP on 06-17-2024 Lymphocytes (Bld) [#/Vol] 1.4 10*3/uL Normal 1.00-4.8 [facility] Comment on above: Performed By: #### L IPASE, HEPATIC, BMP, CBC #### [place] [address] [place] Lymphocytes/100 leukocytes i n Blood by Automated countOrdered By: PROVIDER TEMP on 06-17-2024 Lymphocytes/100 WBC (Bld) 31.2 % Normal . [facility] Comment on above: Performed By: #### L IPASE, HEPATIC, BMP, CBC #### [place] [address] [place] MCH [Entitic mass] by Automa ira countOrdered By: PROVIDER TEMP on 06-17-2024 MCH (RBC) [Entitic mass] 32.1 pg Normal 24.7-34.3 [facility] Comment on above: Performed By: #### L IPASE, HEPATIC, BMP, CBC #### [address] [place] [address] [place] MCHC Auto (RBC) [Mass/Vol]Or dered By: PROVIDER TEMP on 06-17-2024 MCHC (RBC) [Mass/Vol] 34.6 g/dL 32.0-35.0 [facility] MCV [Entitic volume] by Auto mated countOrdered By: PROVIDER TEMP on 06-17-2024 MCV (RBC) [Entitic vol] 92.6 fL Normal 80-100 [facility] Comment on above: Performed By: #### L IPASE, HEPATIC, BMP, CBC #### [facility] [address] [place] [address] Monocyte distribution width [Entitic volume] in Blood by AutomatedOrdered By: PROVIDER TEMP on 06-17-2024 Monocyte distribution width Auto (Bld) [Entitic vol] 16.54 % 0.00-20.00 [facility] Neutrophils [#/volume] in Bl ood by Automated countOrdered By: PROVIDER TEMP on 06-17-2024 Neutrophils (Bld) [#/Vol] 2.2 10*3/uL Normal 1.8-7.7 [facility] Comment on above: Performed By: #### L IPASE, HEPATIC, BMP, CBC #### [facility] [address] [place] [address] Nitrite Test strip Ql (U)Ord ered By: PROVIDER TEMP on 06-17-2024 Nitrite Ql (U) Negative Negative [facility] No Panel InformationOrdered By: PROVIDER TEMP on 06-17-2024 Estimated GFR (CKD-EPI) > 60.0 mL/Min [facility] Creatinine Clearance (Chem 78.60 [facility] Nucleated erythrocytes [Pres ence] in Blood by Automated countOrdered By: PROVIDER TEMP on 06-17-2024 Nucleated RBC Auto Ql (Bld) 0.1 /100{WBC} 0-0.5 [facility] Platelet mean volume [Entiti c volume] in Blood by Automated countOrdered By: PROVIDER TEMP on 06-17-2024 Platelet mean volume (Bld) [Entitic vol] 7.5 fL Normal 6.3-10.7 [facility] Comment on above: Performed By: #### L IPASE, HEPATIC, BMP, CBC #### [facility] [address] Platelets [#/volume] in Bloo d by Automated countOrdered By: PROVIDER TEMP on 06-17-2024 Platelets (Bld) [#/Vol] 210 10*3/uL Normal 150-450 [facility] Comment on above: Performed By: #### L IPASE, HEPATIC, BMP, CBC #### [facility] [address] [place] [address] Potassium [Moles/volume] in Serum or PlasmaOrdered By: PROVIDER TEMP on 06-17-2024 Potassium [Moles/Vol] 3.6 mmol/L Normal 3.5-5.1 [facility] Comment on above: Performed By: #### L IPASE, HEPATIC, BMP, CBC #### [facility] [address] [place] [address] Protein Test strip (U) [Mass /Vol]Ordered By: PROVIDER TEMP on 06-17-2024 Protein (U) [Mass/Vol] Negative Negative [facility] Protein [Mass/volume] in Ser um or PlasmaOrdered By: PROVIDER TEMP on 06-17-2024 Protein [Mass/Vol] 7.0 g/dL Normal 6.4-8.9 [facility] Comment on above: Performed By: #### L IPASE, HEPATIC, BMP, CBC #### [facility] [address] [place] [address] Serum globulin measurement b y calculation (mass/volume)Ordered By: PROVIDER TEMP on 06-17-2024 Globulin (S) [Mass/Vol] 2.5 g/dL Normal [facility] Comment on above: Performed By: #### L IPASE, HEPATIC, BMP, CBC #### [facility] [address] [place] [address] Serum or plasma albumin/glob ulin mass ratioOrdered By: PROVIDER TEMP on 06-17-2024 Albumin/Globulin [Mass ratio] 1.8 {ratio} [facility] Comment on above: Performed By: #### L IPASE, HEPATIC, BMP, CBC #### [facility] [address] Serum or plasma anion gap de terminationOrdered By: PROVIDER TEMP on 06-17-2024 Anion gap [Moles/Vol] 6.6 mmol/L Normal 6.0-15.0 [facility] Comment on above: Performed By: #### L IPASE, HEPATIC, BMP, CBC #### [facility] [address] Serum or plasma non-glucuron idated bilirubin measurement (mass/volume)Ordered By: PROVIDER TEMP on 06-17-2024 Bilirubin.indirect [Mass/Vol] 0.6 mg/dL [facility] Sodium [Moles/volume] in Ser um or PlasmaOrdered By: PROVIDER TEMP on 06-17-2024 Sodium [Moles/Vol] 136 mmol/L Normal 136-145 [facility] Comment on above: Performed By: #### L IPASE, HEPATIC, BMP, CBC #### [facility] [address] [place] [address] Specific gravity Test strip (U) [Rel density]Ordered By: PROVIDER TEMP on 06-17-2024 Specific gravity (U) [Rel density] 1.018 1.001-1.030 [facility] Urea nitrogen [Mass/volume] in Serum or PlasmaOrdered By: PROVIDER TEMP on 06-17-2024 Urea nitrogen [Mass/Vol] 9 mg/dL Normal 7-25 [facility] Comment on above: Performed By: #### L IPASE, HEPATIC, BMP, CBC #### [facility] [address] Urinalysison 06-17-2024 Bilirubin,Urine Negative Normal Negative [facility] Comment on above: Order Comment: Name Collection Type:: Clean-Voided Midstream Performed By: #### U HCG, UA ####[facility] Glucose Ql (U) Normal Normal Normal [facility] Comment on above: Order Comment: Name Collection Type:: Clean-Voided Midstream Performed By: #### U HCG, UA ####[address] [address] [facility] Nitrite,Urine Negative Normal Negative [facility] Comment on above: Order Comment: Name Collection Type:: Clean-Voided Midstream Performed By: #### U HCG, UA ####[address] [address] [facility] Occult Blood,Urine Negative Normal Negative [facility] Comment on above: Order Comment: Name Collection Type:: Clean-Voided Midstream Performed By: #### U HCG, UA ####[address] [address] [facility] Protein,Urine Negative Normal Negative [facility] Comment on above: Order Comment: Name Collection Type:: Clean-Voided Midstream Performed By: #### U HCG, UA ####[place] [id number] [facility] Specificy [place],Urine 1.018 Normal 1.001-1.030 [facility] Comment on above: Order Comment: Name Collection Type:: Clean-Voided Midstream Performed By: #### U HCG, UA ####[address] [address] [facility] Urobilinogen,Urine Normal Normal Normal [facility] Comment on above: Order Comment: Name Collection Type:: Clean-Voided Midstream Performed By: #### U HCG, UA ####[address] [address] [facility] Urine appearanceOrdered By: PROVIDER TEMP on 06-17-2024 Appearance (U) Clear Normal Clear [facility] Comment on above: Order Comment: Name Collection Type:: Clean-Voided Midstream Performed By: #### U HCG, UA ####[place] [id number] [facility] Urobilinogen Test strip (U) [Mass/Vol]Ordered By: PROVIDER TEMP on 06-17-2024 Urobilinogen (U) [Mass/Vol] Normal mg/dL Normal [facility] pH of Urine by Test stripOrd ered By: PROVIDER TEMP on 06-17-2024 pH (U) 6.0 [pH] Normal 5.0-9.0 [facility] Comment on above: Order Comment: Name Collection Type:: Clean-Voided Midstream Performed By: #### U HCG, UA ####[facility] [address] [place] [id number] [facility] Choriogonadotropin.beta subu nit [Units/volume] in Serum or PlasmaOrdered By: Dominic Hester on 04-24-2024 HCG.beta subunit Qn m[IU]/mL [facility] Comment on above: Approximate Approxim ate [...] 10,000-100,000 6-8 15,000-200,000 8-12 10,000-100,000 PERFORMED BY: [address] [place] [id number] PATHOLOGIST FURNACE OPERATOR OIL OR GAS KHANG WEEKS M.D. Performed By: #### H CGQNT ####[facility] [address] [place] [id number] [facility] US transvaginalon 02-09-2024 US transvaginal [facility] Main [place] [id number] Ultrasound Report Signed Patient: Breana John MR#: [id number] : 1990 Acct:[id number] Age/Sex: 33 / F ADM Date: 02/09/24 Loc: Room: Type: [facility] Attending Dr: Dominic Hester Ordering Provider: Dominic Hester Date of Service: 02/09/24 US/US transvaginal: PELVIC PAIN ([id number]) US/US pelvic complete: PELVIC PAIN Copies to: [...] Christine Mckeon M.D.02/09/2024 1:50 PM Dictation Location: [place] [address] Tech: Dipika Payne Transcribed By: SHANE 02/09/24 1350 Dictated By: Christine Mckeon MD 02/09/24 1342 Signed By: 02/09/24 1350 Normal [facility] Basophils Auto (Bld) [#/Vol] Ordered By: Sylvia Romero on 03-28-2023 Basophils (Bld) [#/Vol] 0.0 10*3/uL 0.0-0.2 [facility] Basophils/100 WBC Auto (Bld) Ordered By: Sylvia Romero on 03-28-2023 Basophils/100 WBC (Bld) 0.8 % . [facility] Choriogonadotropin.beta subu nit [Units/volume] in Serum or PlasmaOrdered By: Sylvia Romero on 03-28-2023 HCG.beta subunit Qn m[IU]/mL [facility] Comment on above: Approximate Approxim ate hCG Gestational Age Range (mIU/ml) (weeks)0.2-1 5-50 1-2 50-500 2-3 100-5,000 3-4 500-10,000 4-5 1,000-50,000 5-6 10,000-100,000 6-8 15,000-200,000 8-12 10,000-100,000 Eosinophils Auto (Bld) [#/Vo l]Ordered By: Sylvia Romero on 03-28-2023 Eosinophils (Bld) [#/Vol] 0.2 10*3/uL 0.0-0.45 [facility] Eosinophils/100 WBC Auto (Bl d)Ordered By: Sylvia Romero on 03-28-2023 Eosinophils/100 WBC (Bld) 4.7 % . [facility] Erythrocyte distribution wid th Auto (RBC) [Ratio]Ordered By: Sylvia Romero on 03-28-2023 Erythrocyte distribution width (RBC) [Ratio] 13.0 % 11.9-15.3 [facility] Hematocrit Auto (Bld) [Volum e fraction]Ordered By: Sylvia Romero on 03-28-2023 Hematocrit (Bld) [Volume fraction] 38.0 % 34.0-46.4 [facility] Hemoglobin [Mass/volume] in BloodOrdered By: Sylvia Romero on 03-28-2023 Hemoglobin (Bld) [Mass/Vol] 12.9 g/dL 11.8-15.4 [facility] Leukocytes [#/volume] correc ira for nucleated erythrocytes in Blood by Automated counOrdered By: Sylvia Romero on 03-28-2023 WBC corrected for nucl RBC Auto (Bld) [#/Vol] 4.1 10*3/uL 3.8-11.6 [facility] Lymphocytes Auto (Bld) [#/Vo l]Ordered By: Sylvia Romero on 03-28-2023 Lymphocytes (Bld) [#/Vol] 1.0 10*3/uL 1.00-4.8 [facility] Lymphocytes/100 WBC Auto (Bl d)Ordered By: Sylvia Romero on 03-28-2023 Lymphocytes/100 WBC (Bld) 23.9 % . [facility] MCH Auto (RBC) [Entitic mass ]Ordered By: Sylvia Romero on 03-28-2023 MCH (RBC) [Entitic mass] 31.3 pg 24.7-34.3 [facility] MCHC Auto (RBC) [Mass/Vol]Or dered By: Sylvia Romero on 03-28-2023 MCHC (RBC) [Mass/Vol] 33.9 g/dL 32.0-35.0 [facility] MCV Auto (RBC) [Entitic vol] Ordered By: Sylvia Romero on 03-28-2023 MCV (RBC) [Entitic vol] 92.3 fL 80-100 [facility] Monocytes Auto (Bld) [#/Vol] Ordered By: Sylvia Romero on 03-28-2023 Monocytes (Bld) [#/Vol] 0.3 10*3/uL 0.0-0.8 [facility] Monocytes/100 WBC Auto (Bld) Ordered By: Sylvia Romero on 03-28-2023 Monocytes/100 WBC (Bld) 7.5 % . [facility] Neutrophils Auto (Bld) [#/Vo l]Ordered By: Sylvia Romero on 03-28-2023 Neutrophils (Bld) [#/Vol] 2.6 10*3/uL 1.8-7.7 [facility] Neutrophils/100 WBC Auto (Bl d)Ordered By: Sylvia Romero on 03-28-2023 Neutrophils/100 WBC (Bld) 63.1 % . [facility] Nucleated erythrocytes [Pres ence] in Blood by Automated countOrdered By: Sylvia Romero on 03-28-2023 Nucleated RBC Auto Ql (Bld) 0.1 /100{WBC} 0-0.5 [facility] Platelet mean volume Auto (B ld) [Entitic vol]Ordered By: Sylvia Romero on 03-28-2023 Platelet mean volume (Bld) [Entitic vol] 8.8 fL 6.3-10.7 [facility] Platelets Auto (Bld) [#/Vol] Ordered By: Sylvia Romero on 03-28-2023 Platelets (Bld) [#/Vol] 196 10*3/uL 150-450 [facility] Prolactin [Mass/volume] in S mehdi or PlasmaOrdered By: Sylvia Romero on 03-28-2023 Prolactin [Mass/Vol] 3.20 ng/mL 3.34-26.72 [facility] RBC Auto (Bld) [#/Vol]Ordere d By: Sylvia Romero on 03-28-2023 RBC (Bld) [#/Vol] 4.12 10*6/uL 3.60-5.00 [facility] Thyrotropin [Units/volume] i n Serum or PlasmaOrdered By: Sylvia Romero on 03-28-2023 TSH Qn 1.31 m[IU]/L 0.45-5.33 [facility] WBC Auto (Bld) [#/Vol]Ordere d By: [...] KENNEDY LEHMAN Date: 2023-01-19 23:22 Normal [facility] CBC AUTO DIFFon 01-17-2023 BASO # 0.0 103/ul Normal 0.0-0.1 [facility] Comment on above: Performed By: #### C MP LIPA, SYLVIA #### [facility] [address] [place] [address] [address] Lester Yen Basophils/100 WBC (Bld) 1.1 % Normal 0.2-2.0 [facility] Comment on above: Performed By: #### C MP LIPA, SYLVIA #### [facility] [address] [place] [address] [address] Lester Yen EO # 0.2 103/ul Normal 0.0-0.7 [facility] Comment on above: Performed By: #### C MP LIPA, SYLVIA #### [facility] [address] [place] [address] [address] Lester Yen Eosinophils/100 WBC (Bld) 5.4 % Normal 0.9-7.0 [facility] Comment on above: Performed By: #### C MP, LIPA, SYLVIA #### [facility] [address] [place] [address] [address] Lester Yen Erythrocyte distribution width (RBC) [Ratio] 12.4 % Normal 11.0-15.0 [facility] Comment on above: Performed By: #### C MP, LIPA, SYLVIA #### [facility] [address] [place] [address] [address] Lester Yen Hematocrit (Bld) [Volume fraction] 37.7 % Normal 36.0-48.0 [facility] Comment on above: Performed By: #### C ANJU PULIDO, SYLVIA #### [facility] [address] [place] [address] Dr. Lester Yen Hemoglobin (Bld) [Mass/Vol] 13.2 g/dL Normal 12.0-16.0 [facility] Comment on above: Performed By: #### C BECKI PULIDOA, SYLVIA #### [facility] [address] [place] [address] Dr. Lester Yen IG # 0.01 10e3/ul Normal 0.00-0.03 [facility] Comment on above: Performed By: #### C ANJU PULIDO, SYLVIA #### [facility] [address] [place] [address] Dr. Lester Yen IG % 0.3 % Normal 0.0-0.5 [facility] Comment on above: Performed By: #### C ANJU PULIDO, SYLVIA #### [facility] [address] [place] [address] Dr. Lester Yen LYMPH # 1.1 103/ul Critically low 1.2-3.8 [facility] Comment on above: Performed By: #### C ANJU PULIDO, SYVLIA #### [facility] [address] [place] [address] Dr. Lester Yen Lymphocytes/100 WBC (Bld) 28.3 % Normal 20.5-60.0 [facility] Comment on above: Performed By: #### C ANJU PULIDO, SYLVIA #### [facility] [address] [place] [address] Dr. Lester Yen MANUAL DIFF REQ NO Normal [facility] Comment on above: Performed By: #### C ANJU PULIDO, SYLVIA #### [facility] [address] [place] [address] Dr. Lester Yen MCH (RBC) [Entitic mass] 31.5 pg Normal 26.7-34.0 [facility] Comment on above: Performed By: #### C BECKI PULIDOA, SYLVIA #### [facility] [address] [place] [address] Dr. Lester Yen MCHC (RBC) [Mass/Vol] 35.0 g/dL Normal 29.9-35.2 [facility] Comment on above: Performed By: #### C MP, LIPA, SYLVIA #### [facility] [address] [place] [address] [address] Lester Yen MCV (RBC) [Entitic vol] 90.0 fL Normal 81.0-99.0 [facility] Comment on above: Performed By: #### C MP, LIPA, SYLVIA #### [facility] [address] [place] [address] [address] Lester Yen MONO # 0.3 103/ul Normal 0.3-0.8 [facility] Comment on above: Performed By: #### C MP, LIPA, SYLVIA #### [facility] [address] [place] [address] Dr. Lester Yen Monocytes/100 WBC (Bld) 9.2 % Normal 1.7-12.0 [facility] Comment on above: Performed By: #### C MP, LIPA, SYLVIA #### [facility] [address] [place] [address] [address] Lester Yen NEUT # 2.1 103/ul Normal 1.4-6.5 [facility] Comment on above: Performed By: #### C MP, LIPA, SYLVIA #### [facility] [address] [place] [address] [address] Lester Yen Neutrophils/100 WBC (Bld) 55.7 % Normal 43.0-75.0 [facility] Comment on above: Performed By: #### C MP, LIPA, SYLVIA #### [facility] [address] [place] [address] [address] Lester Yen Platelet mean volume (Bld) [Entitic vol] 9.2 fL Critically low 9.5-13.5 [facility] Comment on above: Performed By: #### C MP, LIPA, SYLVIA #### [facility] [address] [place] [address] [address] Lester Yen PLT 209 103/ul Normal 150-450 [facility] Comment on above: Performed By: #### C MP, LIPA, SYLVIA #### [facility] [address] [place] [address] [address] Lester Yen RBC 4.19 106/ul Critically low 4.20-5.40 [facility] Comment on above: Performed By: #### C MP, LIPA, SYLVIA #### [facility] [address] [place] [address] [address] Lester Yen WBC 3.7 103/ul Critically low 4.0-11.0 [facility] Comment on above: Performed By: #### C MP, LIPA, SYLVIA #### [facility] [address] [place] [address] [address] Lester Yen TYPE AND SCREENon 01-17-2023 TYPE AND SCREEN Negative Normal [facility] Comment on above: Performed By: #### C ASHOK LIPA, SYLVIA #### [facility] [address] [address] [address] Lester Yen Alanine aminotransferase [En zymatic activity/volume] in Serum or PlasmaOrdered By: Monika Camarillo on 01-03-2023 ALT [Catalytic activity/Vol] 13 U/L 7-52 [facility] Albumin [Mass/volume] in Ser um or Plasma by Bromocresol green (BCG) dye binding methoOrdered By: Monika Camarillo on 01-03-2023 Albumin BCG dye [Mass/Vol] 4.7 g/dL 3.5-5.7 [facility] Alkaline phosphatase [Enzyma tic activity/volume] in Serum or PlasmaOrdered By: Monika Camarillo on 01-03-2023 ALP [Catalytic activity/Vol] 47 U/L 34-104 [facility] Aspartate aminotransferase [ Enzymatic activity/volume] in Serum or PlasmaOrdered By: Monika Camarillo on 01-03-2023 AST [Catalytic activity/Vol] 15 U/L 13-39 [facility] Basophils Auto (Bld) [#/Vol] Ordered By: Monika Camarillo on 01-03-2023 Basophils (Bld) [#/Vol] 0.0 10*3/uL 0.0-0.2 [facility] Basophils/100 WBC Auto (Bld) Ordered By: Monika Camarillo on 01-03-2023 Basophils/100 WBC (Bld) 0.3 % . [facility] Bilirubin Test strip Ql (U)O rdered By: Monika Camarillo on 01-03-2023 Bilirubin Ql (U) Negative Negative [facility] Bilirubin.total [Mass/volume ] in Serum or PlasmaOrdered By: Monika Camarillo on 01-03-2023 Bilirubin [Mass/Vol] 0.8 mg/dL 0.3-1.0 [facility] Calcium [Mass/volume] in Ser um or PlasmaOrdered By: Monika Camarillo on 01-03-2023 Calcium [Mass/Vol] 9.2 mg/dL 8.6-10.3 [facility] Carbon dioxide, total [Moles /volume] in Serum or PlasmaOrdered By: Monika Camarillo on 01-03-2023 CO2 [Moles/Vol] 23.8 mmol/L 21.0-31.0 [facility] Chloride [Moles/volume] in S mehdi or PlasmaOrdered By: Monika Camarillo on 01-03-2023 Chloride [Moles/Vol] 105 mmol/L 98-107 [facility] Choriogonadotropin.beta subu nit [Units/volume] in Serum or PlasmaOrdered By: Monika Camarillo on 01-03-2023 [place] [address].00 m[IU]/mL [facility] Comment on above: Approximate Approxim ate hCG Gestational Age Range (mIU/ml) (weeks)0.2-1 5-50 1-2 50-500 2-3 100-5,000 3-4 500-10,000 4-5 1,000-50,000 5-6 10,000-100,000 6-8 15,000-200,000 8-12 10,000-100,000 Color Auto (U)Ordered By: Po Camarillo on 01-03-2023 Color (U) Yellow Yellow [facility] Creatinine [Mass/volume] in Serum or PlasmaOrdered By: Monika Camarillo on 01-03-2023 Creatinine [Mass/Vol] 0.71 mg/dL 0.60-1.20 [facility] ER URINE PROFILEon 3 Bilirubin Ql (U) Negative Normal NEGATIVE [facility] Comment on above: Performed By: #### E RUR #### [facility] [address] [place] [address] Dr. Lester Yen Clarity (U) CLEAR Normal CLEAR [facility] Comment on above: Performed By: #### E RUR #### [facility] [address] [place] [address] Dr. Lester Yen Color (U) LT. YELLOW Normal YELLOW [facility] Comment on above: Performed By: #### E RUR #### [facility] [address] [place] [address] Dr. Lester LEA A micrscopic examination will be performed if indicated. Normal [facility] Comment on above: Performed By: #### E RUR #### [facility] [address] [address] [address] Lester Yen Glucose Ql (U) Negative Normal NEGATIVE [facility] [place] Comment on above: Performed By: #### E RUR #### [facility] [address] [place] [address] Dr. Lseter Yen Hemoglobin Ql (U) Negative Normal NEGATIVE [facility] Comment on above: Performed By: #### E RUR #### [facility] [address] [place] [address] Dr. Lester Yen Ketones Ql (U) 15 mg/dl Abnormal NEGATIVE [facility] Comment on above: Performed By: #### E RUR #### [facility] [address] [place] [address] Dr. Lester Yen LEUKOCYTES Negative Normal NEGATIVE [facility] Comment on above: Performed By: #### E RUR #### [facility] [address] [place] [address] Dr. Lester Yen Nitrite Ql (U) Negative Normal NEGATIVE [facility] Comment on above: Performed By: #### E RUR #### [facility] [address] [address] [address] Lester Yen pH (U) 6.0 [pH] Normal 5-9 [facility] Comment on above: Performed By: #### E RUR #### [facility] [address] [place] [address] Dr. Lester Yen SPEC GRAVITY <=1.005 Abnormal 1.005-<=1.02 5 [facility] Comment on above: Performed By: #### E RUR #### [facility] [address] [place] [address] Dr. Lester Yen UA PROTEIN Negative Normal NEGATIVE/ TRACE [facility] Comment on above: Performed By: #### E RUR #### [facility] [address] [place] [address] Dr. Lester Yen UR MICRO IND NOT INDICATED Normal [facility] Comment on above: Performed By: #### E RUR #### [facility] [address] [place] [address] Dr. Lester Yen Urobilinogen Qn (U) 0.2 {Olivier'U}/dL Normal 0.2 - 1. 0 [facility] Comment on above: Performed By: #### E RUR #### [facility] [address] [place] [address] Dr. Lester Yen Eosinophils Auto (Bld) [#/Vo l]Ordered By: Monika Camarillo on 01-03-2023 Eosinophils (Bld) [#/Vol] 0.3 10*3/uL 0.0-0.45 [facility] Eosinophils/100 WBC Auto (Bl d)Ordered By: Monika Camarillo on 01-03-2023 Eosinophils/100 WBC (Bld) 5.4 % . [facility] Erythrocyte distribution wid th Auto (RBC) [Ratio]Ordered By: Monika Camarillo on 01-03-2023 Erythrocyte distribution width (RBC) [Ratio] 12.7 % 11.9-15.3 [facility] Globulin Calc (S) [Mass/Vol] Ordered By: Monika Camarillo on 01-03-2023 Globulin (S) [Mass/Vol] 2.1 g/dL [facility] Glucose [Mass/volume] in Ser um or [...] Hematocrit (Bld) [Volume fraction] 39.8 % 34.0-46.4 [facility] Hemoglobin [Mass/volume] in BloodOrdered By: Monika Camarillo on 01-03-2023 Hemoglobin (Bld) [Mass/Vol] 13.4 g/dL 11.8-15.4 [facility] Ketones Auto test strip (U) [Mass/Vol]Ordered By: Monika Camarillo on 01-03-2023 Ketones (U) [Mass/Vol] Negative Negative [facility] Leukocytes [#/volume] correc ira for nucleated erythrocytes in Blood by Automated counOrdered By: Monika Camarillo on 01-03-2023 WBC corrected for nucl RBC Auto (Bld) [#/Vol] 5.7 10*3/uL 3.8-11.6 [facility] Lipase [Enzymatic activity/v olume] in Serum or PlasmaOrdered By: Moniak Camarillo on 01-03-2023 Lipase [Catalytic activity/Vol] 17.0 U/L 11.0-82.0 [facility] Lymphocytes Auto (Bld) [#/Vo l]Ordered By: Monika Camarillo on 01-03-2023 Lymphocytes (Bld) [#/Vol] 0.9 10*3/uL 1.00-4.8 [facility] Lymphocytes/100 WBC Auto (Bl d)Ordered By: Monika Camarillo on 01-03-2023 Lymphocytes/100 WBC (Bld) 15.2 % . [facility] MCH Auto (RBC) [Entitic mass ]Ordered By: Monika Camarillo on 01-03-2023 MCH (RBC) [Entitic mass] 31.0 pg 24.7-34.3 [facility] MCHC Auto (RBC) [Mass/Vol]Or dered By: Monika Camarillo on 01-03-2023 MCHC (RBC) [Mass/Vol] 33.6 g/dL 32.0-35.0 [facility] MCV Auto (RBC) [Entitic vol] Ordered By: Monika Camarillo on 01-03-2023 MCV (RBC) [Entitic vol] 92.2 fL 80-100 [facility] Monocyte distribution width [Entitic volume] in Blood by AutomatedOrdered By: Monika Camarillo on 01-03-2023 Monocyte distribution width Auto (Bld) [Entitic vol] 17.53 % 0.00-20.00 [facility] Monocytes Auto (Bld) [#/Vol] Ordered By: Monika Camarillo on 01-03-2023 Monocytes (Bld) [#/Vol] 0.4 10*3/uL 0.0-0.8 [facility] Monocytes/100 WBC Auto (Bld) Ordered By: Monika Camarillo on 01-03-2023 Monocytes/100 WBC (Bld) 6.5 % . [facility] Neutrophils Auto (Bld) [#/Vo l]Ordered By: Monika Camarillo on 01-03-2023 Neutrophils (Bld) [#/Vol] 4.1 10*3/uL 1.8-7.7 [facility] Neutrophils/100 WBC Auto (Bl d)Ordered By: Monika Camarillo on 01-03-2023 Neutrophils/100 WBC (Bld) 72.6 % . [facility] Nitrite Test strip Ql (U)Ord ered By: Monika Camarillo on 01-03-2023 Nitrite Ql (U) Negative Negative [facility] No Panel InformationOrdered By: Monika Camarillo on 01-03-2023 Estimated GFR (CKD-EPI) > 60.0 mL/Min [facility] Creatinine Clearance (Chem 94.97 [facility] Nucleated erythrocytes [Pres ence] in Blood by Automated countOrdered By: Monika Camarillo on 03-31-2023 Nucleated RBC Auto Ql (Bld) 0.1 /100{WBC} 0-0.5 [facility] Platelet mean volume Auto (B ld) [Entitic vol]Ordered By: Monika Camarillo on 01-03-2023 Platelet mean volume (Bld) [Entitic vol] 7.5 fL 6.3-10.7 [facility] Platelets Auto (Bld) [#/Vol] Ordered By: Monika Camarillo on 01-03-2023 Platelets (Bld) [#/Vol] 187 10*3/uL 150-450 [facility] Potassium [Moles/volume] in Serum or PlasmaOrdered By: Monika Camarillo on 01-03-2023 Potassium [Moles/Vol] 3.7 mmol/L 3.5-5.1 [facility] Protein Auto test strip (U) [Mass/Vol]Ordered By: Monika Camarillo on 01-03-2023 Protein (U) [Mass/Vol] Negative Negative [facility] Protein [Mass/volume] in Ser um or PlasmaOrdered By: Monika Camarillo on 01-03-2023 Protein [Mass/Vol] 6.8 g/dL 6.4-8.9 [facility] RBC Auto (Bld) [#/Vol]Ordere d By: Monika Camarillo on 01-03-2023 RBC (Bld) [#/Vol] 4.32 10*6/uL 3.60-5.00 [facility] Serum or plasma albumin/glob ulin mass ratioOrdered By: Monika Camarillo on 01-03-2023 Albumin/Globulin [Mass ratio] 2.2 {ratio} [facility] Serum or plasma anion gap de terminationOrdered By: Monika Camarillo on 01-03-2023 Anion gap [Moles/Vol] 10.9 mmol/L 6.0-15.0 [facility] Sodium [Moles/volume] in Ser um or PlasmaOrdered By: Monika Camarillo on 01-03-2023 Sodium [Moles/Vol] 136 mmol/L 136-145 [facility] Specific gravity Auto test s trip (U) [Rel density]Ordered By: Monika Camarillo on 01-03-2023 Specific gravity (U) [Rel density] 1.005 1.001-1.030 [facility] US PREG TVon 01-03-2023 US PREG [...] by: LOPEZ ZARAGOZA Date: 2023-01-03 21:49 Normal [facility] Urea nitrogen [Mass/volume] in Serum or PlasmaOrdered By: Monika Camarillo on 01-03-2023 Urea nitrogen [Mass/Vol] 9 mg/dL 7-25 [facility] Urine clarity by refractomet ry automatedOrdered By: Monika Camarillo on 01-03-2023 Clarity Refractometry automated (U) Clear Clear [facility] Urine glucose measurement by automated test strip (mass/volume)Ordered By: Monika Camarillo on 01-03-2023 Glucose Auto test strip (U) [Mass/Vol] Normal mg/dL Normal [facility] Urine hemoglobin detection b y automated test stripOrdered By: Monika Camarillo on 01-03-2023 Hemoglobin Auto test strip Ql (U) Negative Negative [facility] Urine leukocyte esterase det ection by automated test stripOrdered By: Monika Camarillo on 01-03-2023 Leukocyte esterase Auto test strip Ql (U) Negative Negative [facility] Urobilinogen Auto test strip (U) [Mass/Vol]Ordered By: Monika Camarillo on 01-03-2023 Urobilinogen (U) [Mass/Vol] Normal mg/dL Normal [facility] WBC Auto (Bld) [#/Vol]Ordere d By: Monika Camarillo on 01-03-2023 WBC (Bld) [#/Vol] 5.7 10*3/uL 3.8-11.6 [facility] pH Auto test strip (U)Ordere d By: Monika Camarillo on 01-03-2023 pH (U) 6.5 [pH] 5.0-9.0 [facility] US PREG TVon 12-26-2022 US PREG [...] KENNEDY LEHMAN Date: 2022-12-26 15:07 Normal [facility] PREG QUANT HCGon 12-25-2022 HCG QUANT 83519 mIU/mL Normal [facility] Comment on above: Performed By: #### P REGQNT #### [facility] [address] [place] [address] Dr. Lester Yen HCG RANGE SEE BELOW Normal [facility] Comment on above: Result Comment: 5-50 0.2-1 WEEK 50-500 1-2 WEEKS 100-5,000 2-3 WEEKS 500-10,000 3-4 WEEKS 1,000-50,000 4-5 WEEKS 10,000-100,000 5-6 WEEKS 15,000-200,000 6-8 WEEKS 10,000-100,000 2-3 MONTHS Performed By: #### P REGQNT #### [facility] [address] [address] [address] Lester Yen Albumin [Mass/volume] in Ser um or PlasmaOrdered By: oMnika Camarillo on 08-02-2022 Albumin [Mass/Vol] 3.7 g/dL 3.2-5.5 [facility] Basophils Auto (Bld) [#/Vol] Ordered By: Monika Camarillo on 08-02-2022 Basophils (Bld) [#/Vol] 0.0 10*3/uL 0.0-0.2 [facility] Basophils/100 WBC Auto (Bld) Ordered By: Monika Camarillo on 08-02-2022 Basophils/100 WBC (Bld) 0.8 % . [facility] Bilirubin Test strip Ql (U)O rdered By: Monika Camarillo on 08-02-2022 Bilirubin Ql (U) Negative Negative [facility] Color Auto (U)Ordered By: Po Camarillo on 08-02-2022 Color (U) Yellow Yellow [facility] Creatinine and Glomerular fi ltration rate.predicted panel (S/P/Bld)Ordered By: Monika Camarillo on 08-02-2022 Creatinine [Mass/Vol] 0.86 mg/dL 0.44-1.03 [facility] Eosinophils Auto (Bld) [#/Vo l]Ordered By: Monika Camarillo on 08-02-2022 Eosinophils (Bld) [#/Vol] 0.4 10*3/uL 0.0-0.45 [facility] Eosinophils/100 WBC Auto (Bl d)Ordered By: Monika Camarillo on 08-02-2022 Eosinophils/100 WBC (Bld) 12.8 % . [facility] Erythrocyte distribution wid th Auto (RBC) [Ratio]Ordered By: Monika Camarillo on 08-02-2022 Erythrocyte distribution width (RBC) [Ratio] 12.7 % 11.9-15.3 [facility] Estimated glomerular filtrat ion rate (GFR) non- AmericanOrdered By: Monika Camarillo on 08-02-2022 GFR/1.73 sq M.predicted among non-blacks MDRD (S/P/Bld) [Vol rate/Area] > 60 mL/Min [facility] Globulin Calc (S) [Mass/Vol] Ordered By: Monika Camarillo on 08-02-2022 Globulin (S) [Mass/Vol] 2.4 g/dL [facility] HCG ( test) IA.rapi d Ql (U)Ordered By: Monika Camarillo on 08-02-2022 HCG ( test) Ql (U) Negative [facility] Hematocrit Auto (Bld) [Volum e fraction]Ordered By: Monika Camarillo on 08-02-2022 Hematocrit (Bld) [Volume fraction] 38.4 % 34.0-46.4 [facility] Hemoglobin [Mass/volume] in BloodOrdered By: Monika Camarillo on 08-02-2022 Hemoglobin (Bld) [Mass/Vol] 13.1 g/dL 11.8-15.4 [facility] Ketones Auto test strip (U) [Mass/Vol]Ordered By: Monika Camarillo on 08-02-2022 Ketones (U) [Mass/Vol] Negative Negative [facility] - Hematology and Cell countsOrdered By: Monika Camarillo on 08-02-2022 Nucleated RBC/100 WBC (Bld) [Ratio] 0.1 % 0-0.5 [facility] Leukocytes [#/volume] in Blo od by Automated countOrdered By: Monika Camarillo on 08-02-2022 WBC (Bld) [#/Vol] 3.4 10*3/uL 4.5-11.0 [facility] Lymphocytes Auto (Bld) [#/Vo l]Ordered By: Monika Camarillo on 08-02-2022 Lymphocytes (Bld) [#/Vol] 1.0 10*3/uL 1.00-4.8 [facility] Lymphocytes/100 WBC Auto (Bl d)Ordered By: Monika Camarillo on 08-02-2022 Lymphocytes/100 WBC (Bld) 28.2 % . [facility] MCH Auto (RBC) [Entitic mass ]Ordered By: Monika Camarillo on 08-02-2022 MCH (RBC) [Entitic mass] 31.1 pg 24.7-34.3 [facility] MCHC Auto (RBC) [Mass/Vol]Or dered By: Monika Camarillo on 08-02-2022 MCHC (RBC) [Mass/Vol] 34.1 g/dL 32.0-35.0 [facility] MCV Auto (RBC) [Entitic vol] Ordered By: Monika Camarillo on 08-02-2022 MCV (RBC) [Entitic vol] 91.4 fL 80-100 [facility] Monocytes Auto (Bld) [#/Vol] Ordered By: Monika Camarillo on 08-02-2022 Monocytes (Bld) [#/Vol] 0.3 10*3/uL 0.0-0.8 [facility] Monocytes/100 WBC Auto (Bld) Ordered By: Monika Camarillo on 08-02-2022 Monocytes/100 WBC (Bld) 7.7 % . [facility] Neutrophils Auto (Bld) [#/Vo l]Ordered By: Monika Camarillo on 08-02-2022 Neutrophils (Bld) [#/Vol] 1.7 10*3/uL 1.8-7.7 [facility] Neutrophils/100 WBC Auto (Bl d)Ordered By: Monika Camarillo on 08-02-2022 Neutrophils/100 WBC (Bld) 50.5 % . [facility] Nitrite Test strip Ql (U)Ord ered By: Monika Camarillo on 08-02-2022 Nitrite Ql (U) Negative Negative [facility] No Panel InformationOrdered By: Monika Camarillo on 08-02-2022 Estimated GFR () > 60 mL/Min [facility] Comment on above: GFR estimated refere nce range: According to KDOQI guidelines, <60 ml/min/1.73m2 is sufficient to diagnose a patient with chronic kidney disease. Pharmacy Creatinine Clearance (Chem 79.12 [facility] Platelet mean volume Auto (B ld) [Entitic vol]Ordered By: Monika Camarillo on 08-02-2022 Platelet mean volume (Bld) [Entitic vol] 7.8 fL 6.3-10.7 [facility] Platelets Auto (Bld) [#/Vol] Ordered By: Monika Camarillo on 08-02-2022 Platelets (Bld) [#/Vol] 203 10*3/uL 150-450 [facility] Protein Auto test strip (U) [Mass/Vol]Ordered By: Monika Camarillo on 08-02-2022 Protein (U) [Mass/Vol] Negative Negative [facility] Protein [Mass/volume] in Ser um or PlasmaOrdered By: Monika Camarillo on 08-02-2022 Protein [Mass/Vol] 6.1 g/dL 6.1-7.9 [facility] RBC Auto (Bld) [#/Vol]Ordere d By: Monika Camarillo on 08-02-2022 RBC (Bld) [#/Vol] 4.20 10*6/uL 3.60-5.00 [facility] Serum or plasma alanine gaspar otransferase measurement without P-5'-P (enzymatic activiOrdered By: Monika Camarillo on 08-02-2022 ALT No additional P-5'-P [Catalytic activity/Vol] 13 U/L 10-60 [facility] Serum or plasma albumin/glob ulin mass ratioOrdered By: Monika Camarillo on 08-02-2022 Albumin/Globulin [Mass ratio] 1.5 {ratio} [facility] Serum or plasma alkaline radames sphatase measurement (enzymatic activity/volume)Ordered By: Monika Camarillo on 08-02-2022 ALP [Catalytic activity/Vol] 46 U/L 32-92 [facility] Serum or plasma anion gap de terminationOrdered By: Monika Camarillo on 08-02-2022 Anion gap [Moles/Vol] 11.0 mmol/L 6.0-15.0 [facility] Serum or plasma aspartate am inotransferase measurement (enzymatic activity/volume)Ordered By: Monika Camarillo on 08-02-2022 AST [Catalytic activity/Vol] 16 U/L 10-42 [facility] Serum or plasma calcium unique urement (mass/volume)Ordered By: Monika Camarillo on 08-02-2022 Calcium [Mass/Vol] 9.2 mg/dL 8.2-10.2 [facility] Serum or plasma chloride debbie surement (moles/volume)Ordered By: Monika Camarillo on 08-02-2022 Chloride [Moles/Vol] 104 mmol/L 95-114 [facility] Serum or plasma glucose unique urement [...] on 08-02-2022 Potassium [Moles/Vol] 3.4 mmol/L 3.5-5.1 [facility] Serum or plasma sodium measu rement (moles/volume)Ordered By: Monika Camarillo on 08-02-2022 Sodium [Moles/Vol] 137 mmol/L 136-146 [facility] Serum or plasma total biliru bin measurement (mass/volume)Ordered By: Monika Camarillo on 08-02-2022 Bilirubin [Mass/Vol] 0.6 mg/dL 0.3-1.2 [facility] Serum or plasma total carbon dioxide measurement (moles/volume)Ordered By: Monika Camarillo on 08-02-2022 CO2 [Moles/Vol] 25.4 mmol/L 22.0-30.0 [facility] Serum or plasma urea nitroge n measurement (mass/volume)Ordered By: Monika Camarillo on 08-02-2022 Urea nitrogen [Mass/Vol] 8 mg/dL 9-23 [facility] Specific gravity Auto test s trip (U) [Rel density]Ordered By: Monika Camarillo on 08-02-2022 Specific gravity (U) [Rel density] 1.009 1.001-1.030 [facility] Urine clarity by refractomet ry automatedOrdered By: Monika Camarillo on 08-02-2022 Clarity Refractometry automated (U) Clear Clear [facility] Urine glucose measurement by automated test strip (mass/volume)Ordered By: Monika Camarillo on 08-02-2022 Glucose Auto test strip (U) [Mass/Vol] Normal mg/dL Normal [facility] Urine hemoglobin detection b y automated test stripOrdered By: Monika Camarillo on 08-02-2022 Hemoglobin Auto test strip Ql (U) Negative Negative [facility] Urine lactic acid measuremen tOrdered By: Monika Camarillo on 08-02-2022 Lactate (U) [Moles/Vol] 1.4 mmol/L 0.5-2.2 [facility] Urine leukocyte esterase det ection by automated test stripOrdered By: Monika Camarillo on 08-02-2022 Leukocyte esterase Auto test strip Ql (U) Negative Negative [facility] Urobilinogen Auto test strip (U) [Mass/Vol]Ordered By: Monika Camarillo on 08-02-2022 Urobilinogen (U) [Mass/Vol] Normal mg/dL Normal [facility] pH Auto test strip (U)Ordere d By: Monika Camarillo on 08-02-2022 pH (U) 8.0 [pH] 5.0-9.0 [facility] CBC AUTO DIFFon 07-29-2022 BASO # 0.0 103/ul Normal 0.0-0.1 [facility] Comment on above: Performed By: #### C BC #### [facility] [address] [place] [address] Dr. Lester Yen Basophils/100 WBC (Bld) 1.1 % Normal 0.2-2.0 [facility] Comment on above: Performed By: #### C BC #### [facility] [address] [address] [address] Lester Yen EO # 0.4 103/ul Normal 0.0-0.7 [facility] Comment on above: Performed By: #### C BC #### [facility] [address] [address] [address] Lester Yen Eosinophils/100 WBC (Bld) 10.8 % Critically high 0.9-7.0 [facility] Comment on above: Performed By: #### C BC #### [facility] [address] [place] [address] Dr. Lester Yen Erythrocyte distribution width (RBC) [Ratio] 12.0 % Normal 11.0-15.0 [facility] Comment on above: Performed By: #### C BC #### [facility] [address] [place] [address] Dr. Lester Yen Hematocrit (Bld) [Volume fraction] 36.3 % Normal 36.0-48.0 [facility] Comment on above: Performed By: #### C BC #### [facility] [address] [place] [address] Dr. Lester Yen Hemoglobin (Bld) [Mass/Vol] 12.4 g/dL Normal 12.0-16.0 [facility] Comment on above: Performed By: #### C BC #### [facility] [address] [place] [address] Dr. Lester Yen IG # 0.00 10e3/ul Normal 0.00-0.03 [facility] Comment on above: Performed By: #### C BC #### [facility] [address] [place] [address] Dr. Lester Yen IG % 0.0 % Normal 0.0-0.5 [facility] Comment on above: Performed By: #### C BC #### [facility] [address] [place] [address] Dr. Lester Yen LYMPH # 1.6 103/ul Normal 1.2-3.8 [facility] Comment on above: Performed By: #### C BC #### [facility] [address] [place] [address] Dr. Lester Yen Lymphocytes/100 WBC (Bld) 41.6 % Normal 20.5-60.0 [facility] Comment on above: Performed By: #### C BC #### [facility] [address] [place] [address] Dr. Lester Yen MANUAL DIFF REQ NO Normal [facility] Comment on above: Performed By: #### C BC #### [facility] [address] [place] [address] Dr. Lester Yen MCH (RBC) [Entitic mass] 31.9 pg Normal 26.7-34.0 [facility] Comment on above: Performed By: #### C BC #### [facility] [address] [address] [address] Lester Yen MCHC (RBC) [Mass/Vol] 34.2 g/dL Normal 29.9-35.2 [facility] Comment on above: Performed By: #### C BC #### [facility] [address] [address] [address] Lester Yen MCV (RBC) [Entitic vol] 93.3 fL Normal 81.0-99.0 [facility] Comment on above: Performed By: #### C BC #### [facility] [address] [place] [address] Dr. Lester Yen MONO # 0.3 103/ul Normal 0.3-0.8 [facility] Comment on above: Performed By: #### C BC #### [facility] [address] [place] [address] Dr. Lester Yen Monocytes/100 WBC (Bld) 8.2 % Normal 1.7-12.0 [facility] Comment on above: Performed By: #### C BC #### [facility] [address] [place] [address] Dr. Lester Yen NEUT # 1.5 103/ul Normal 1.4-6.5 [facility] [facility] Comment [facility]: Performed By: #### C BC #### [facility] [address] [place] [address] Dr. Lester Yen Neutrophils/100 WBC (Bld) 38.3 % Critically low 43.0-75.0 [facility] Comment on above: Performed By: #### C BC #### [facility] [address] [place] [address] Dr. Lester Yen Platelet mean volume (Bld) [Entitic vol] 9.3 fL Critically low 9.5-13.5 [facility] Comment on above: Performed By: #### C BC #### [facility] [address] [place] [address] Dr. Lester Yen PLT 184 103/ul Normal 150-450 [facility] Comment on above: Performed By: #### C BC #### [facility] [address] [address] [address] Lester Yen RBC 3.89 106/ul Critically low 4.20-5.[address] [facility] Comment on above: Performed By: #### C BC #### [facility] [address] [address] [address] Lester Yen WBC 3.8 103/ul Critically low 4.0-11.0 [facility] Comment on above: Performed By: #### C BC #### [facility] [address] [address] [address] Lester Yen Covid-19 PCR ([facility])on 07-07 SARS-CoV-2 (COVID-19) RNA JOSE+probe Ql (Unsp spec) Not detected Normal NOT DETECTED [facility] Comment on above: Result Comment: When [...] for this test is supported by the [employer] Grinder of Health and Human Service's declaration that [...] be used). Performed By: #### C ANJU PUILDO AMY #### [facility] [address] [place] [address] Dr. Lester Yen PREG QUANT HCGon 07-29-2022 HCG QUANT 1 mIU/mL Normal [facility] Comment on above: Performed By: #### C ANJU PULIDO AMY #### [facility] [address] [place] [address] Dr. Lester Yen HCG RANGE SEE BELOW Normal [facility] Comment on above: Result Comment: 5-50 0.2-1 WEEK 50-500 1-2 WEEKS 100-5,000 2-3 WEEKS 500-10,000 3-4 WEEKS 1,000-50,000 4-5 WEEKS 10,000-100,000 5-6 WEEKS 15,000-200,000 6-8 WEEKS 10,000-100,000 2-3 MONTHS Performed By: #### C ANJU PULIDO AMY #### [facility] [address] [address] [address] Lester Yen HIV 1 and HIV-2 antibody ass ay with HIV-1 p24 antigen detectionOrdered By: Dominic Hester on 06-18-2022 HIV 1+2 Ab+HIV1 p24 Ag IA Ql Non-Reactive Non Reactive [facility] Comment on above: HIV NegativeHIV-1/HI V-2 antibodies and HIV-1 p24 antigen were NOTdetected. There is no laboratory evidence of HIV infection.Performed at: [facility] [address] [id number] Director: Lebron Manzo PhD, Phone: [phone] Hepatitis B virus surface Ag [Presence] in Serum or Plasma by ImmunoassayOrdered By: Dominic Hester on 06-18-2022 HBV surface Ag IA Ql Negative Negative [facility] Hepatitis C virus RNA [Units /volume] (viral load) in Serum or Plasma by JOSE with probOrdered By: Dominic Hester on 06-18-2022 HCV RNA JOSE+probe Qn N/A [facility] Hepatitis C virus RNA [log u nits/volume] (viral load) in Serum or Plasma by JOSE withOrdered By: Dominic Hester on 06-18-2022 HCV RNA JOSE+probe [Log units/Vol] N/A [facility] No Panel InformationOrdered By: Dominic Hester on 06-18-2022 Hepatitis A IgM Antibody Negative Negative [facility] Hepatitis B Core IgM Antibody Negative Negative [facility] Hepatitis C Interpretation See comment . [facility] Comment on above: NegativeNot infected with HCV, unless recent infection issuspected or other evidence exists to indicate HCVinfection.Performed at: [id number] [place], [place] [id number] Director: Lebron Manzo PhD, Phone: [phone] Hepatitis C RNA Quantitative N/A [facility] Reagin Ab [Presence] in Seru m by RPROrdered By: Dominic Hester on 06-18-2022 Reagin Ab RPR Ql (S) Non-Reactive Non Reactive [facility] Comment on above: Performed at: [facility] [address] [id number] Director: Lebron Manzo PhD, Phone: [phone] Serum or plasma hepatitis C virus antibody signal/cutoff ratio by immunoassay (relatiOrdered By: Dominic Hester on 06-18-2022 HCV Ab Signal/Cutoff IA [Rel units/Vol] <0.1 s/co ratio 0.0-0.9 [facility] CHLAMYDIA/GONOCOCCUS JOSE (SW AB/URINE/PAPon 06-04-2022 Chlamydia trachomatis, JOSE Negative Normal Negative [facility] Comment on above: Performed By: #### C T/NGNA #### [facility] [address] [place] [address] Dr. Lester Yen Neisseria gonorrhoeae, JOSE Negative Normal Negative [facility] Comment on above: Performed By: #### C T/NGNA #### [facility] [address] [place] [address] Dr. Lester Yen VAGINITIS/VAGINOSIS DNA PROB Davide 06-02-2022 Tameka species Negative Normal Negative [facility] Comment on above: Performed By: #### C MP, LIPA, SYLVIA #### [facility] [address] [place] [address] Dr. Lester Yen Gardnerella vaginalis Negative Normal Negative [facility] Comment on above: Performed By: #### C MP, LIPA, SYLVIA #### [facility] [address] [place] [address] Dr. Lester Yen Trichomonas vaginalis Negative Normal Negative [facility] Comment on above: Performed By: #### C MP, LIPA, SYLVIA #### [facility] [address] [place] [address] Dr. Lester Yen AMYLASEon 05-28-2022 Amylase [Catalytic activity/Vol] 48 U/L Normal 25-115 [facility] Comment on above: Performed By: #### C ANJU PULIDO AMY #### [facility] [address] [address] [address] Lester Yen CBC AUTO DIFFon 05-28-2022 BASO # 0.0 103/ul Normal 0.0-0.1 [facility] Comment on above: Performed By: #### C BC #### [facility] [address] [address] [address] Lester Yen Basophils/100 WBC (Bld) 0.5 % Normal 0.2-2.0 [facility] Comment on above: Performed By: #### C BC #### [facility] [address] [place] [address] Dr. Lester Yen EO # 0.3 103/ul Normal 0.0-0.7 [facility] Comment on above: Performed By: #### C BC #### [facility] [address] [address] [address] Lester Yen Eosinophils/100 WBC (Bld) 5.7 % Normal 0.9-7.0 [facility] Comment on above: Performed By: #### C BC #### [facility] [address] [place] [address] Dr. Lester Yen Erythrocyte distribution width (RBC) [Ratio] 12.6 % Normal 11.0-15.0 [facility] Comment on above: Performed By: #### C BC #### [facility] [address] [place] [address] Dr. Lester Yen Hematocrit (Bld) [Volume fraction] 39.5 % Normal 36.0-48.0 [facility] Comment on above: Performed By: #### C BC #### [facility] [address] [place] [address] Dr. Lester Yen Hemoglobin (Bld) [Mass/Vol] 13.2 g/dL Normal 12.0-16.0 [facility] Comment on above: Performed By: #### C BC #### [facility] [address] [address] [address] Lester Yen IG # 0.01 10e3/ul Normal 0.00-0.03 [facility] Comment on above: Performed By: #### C BC #### [facility] [address] [address] [address] Lester Yen IG % 0.2 % Normal 0.0-0.5 [facility] Comment on above: Performed By: #### C BC #### [facility] [address] [place] [address] Dr. Lester Yen LYMPH # 1.1 103/ul Critically low 1.2-3.8 [facility] Comment on above: Performed By: #### C BC #### [facility] [address] [place] [address] Dr. Lester Yen Lymphocytes/100 WBC (Bld) 18.9 % Critically low 20.5-60.0 [facility] Comment on above: Performed By: #### C BC #### [facility] [address] [place] [address] Dr. Lester Yen MANUAL DIFF REQ NO Normal [facility] Comment on above: Performed By: #### C BC #### [facility] [address] [place] [address] Dr. Lester Yen MCH (RBC) [Entitic mass] 31.1 pg Normal 26.7-34.0 [facility] Comment on above: Performed By: #### C BC #### [facility] [address] [place] [address] Dr. Lester Yen MCHC (RBC) [Mass/Vol] 33.4 g/dL Normal 29.9-35.2 [facility] Comment on above: Performed By: #### C BC #### [facility] [address] [place] [address] Dr. Lester Yen MCV (RBC) [Entitic vol] 93.2 fL Normal 81.0-99.0 [facility] Comment on above: Performed By: #### C BC #### [facility] [address] [place] [address] Dr. Lester Yen MONO # 0.5 103/ul Normal 0.3-0.8 [facility] Comment on above: Performed By: #### C BC #### [facility] [address] [place] [address] Dr. Lester Yen Monocytes/100 WBC (Bld) 8.4 % Normal 1.7-12.0 [facility] Comment on above: Performed By: #### C BC #### [facility] [address] [place] [address] Dr. Lester Yen NEUT # 3.9 103/ul Normal 1.4-6.5 [facility] Comment on above: Performed By: #### C BC #### [facility] [address] [place] [address] Dr. Lester Yen Neutrophils/100 WBC (Bld) 66.3 % Normal 43.0-75.0 [facility] Comment on above: Performed By: #### C BC #### [facility] [address] [place] [address] Dr. Lester Yen Platelet mean volume (Bld) [Entitic vol] 9.8 fL Normal 9.5-13.5 [facility] Comment on above: Performed By: #### C BC #### [facility] [address] [place] [address] Dr. Lester Yen PLT 186 103/ul Normal 150-450 [facility] Comment on above: Performed By: #### C BC #### [facility] [address] [place] [address] Dr. Lester Yen RBC 4.24 106/ul Normal 4.20-5.40 [facility] Comment on above: Performed By: #### C BC #### [facility] [address] [place] [address] Dr. Lester Yen WBC 5.9 103/ul Normal 4.0-11.0 [facility] Comment on above: Performed By: #### C BC #### [facility] [address] [place] [address] ABD/PELV W CONon 05-28-[address] ABD/PELV W CON EXAMINATION: CT ABD/PELV [...] TOR JIN Date: 2022-05-28 12:57 Normal [facility] ER URINE PROFILEon 2 Bilirubin Ql (U) Negative Normal NEGATIVE [facility] Comment on above: Performed By: #### E GREG PREGU #### [facility] [address] [place] [address] Dr. Lester Yen Clarity (U) CLEAR Normal CLEAR [facility] Comment on above: Performed By: #### E MANUELR PREGU #### [facility] [address] [place], [place] [address] Dr. Lester Yen Color (U) LT. YELLOW Normal YELLOW [facility] Comment on above: Performed By: #### E RUR, PREGU #### [facility] [address] [place] [address] Dr. Lester LEA A micrscopic examination will be performed if indicated. Normal [facility] Comment on above: Performed By: #### E RUR, PREGU #### [facility] [address] [place] [address] Dr. Lester Yen Glucose Ql (U) Negative Normal NEGATIVE [facility] [place] Comment on above: Performed By: #### E RUR, PREGU #### [facility] [address] [place] [address] Dr. Lester Yen Hemoglobin Ql (U) Negative Normal NEGATIVE [facility] Comment on above: Performed By: #### E RUR, PREGU #### [facility] [address] [place] [address] Dr. Lester Yen Ketones Ql (U) Negative Normal NEGATIVE [facility] Comment on above: Performed By: #### E RUR, PREGU #### [facility] [address] [place] [address] Dr. Lester Yen LEUKOCYTES Negative Normal NEGATIVE [facility] Comment on above: Performed By: #### E RUR, PREGU #### [facility] [address] [place] [address] Dr. Lester Yen Nitrite Ql (U) Negative Normal NEGATIVE [facility] Comment on above: Performed By: #### E RUR, PREGU #### [facility] [address] [place] [address] Dr. Lester Yen pH (U) 6.0 [pH] Normal 5-9 [facility] Comment on above: Performed By: #### E RUR, PREGU #### [facility] [address] [place] [address] Dr. Lester Yen SPEC GRAVITY <=1.005 Abnormal 1.005-<=1.02 5 [facility] Comment on above: Performed By: #### E RUR, PREGU #### [facility] [address] [place] [address] Dr. Lester Yen UA PROTEIN Negative Normal NEGATIVE/ TRACE [facility] Comment on above: Performed By: #### E RUR, PREGU #### [facility] [address] [place] [address] Dr. Lester Yen UR MICRO IND NOT INDICATED Normal [facility] Comment on above: Performed By: #### E RUR, PREGU #### [facility] [address] [place] [address] Dr. Lester Yen Urobilinogen Qn (U) 0.2 {Olivier'U}/dL Normal 0.2 - 1. 0 [facility] Comment on above: Performed By: #### E RUR, PREGU #### [facility] [address] [place] [address] Dr. Lester Yen LIPASEon 05-28-2022 Lipase [Catalytic activity/Vol] 96.0 U/L Normal 73.0-393.0 [facility] Comment on above: Performed By: #### C MP LIPA, SYLVIA #### [facility] [address] [place] [address] Dr. Lester Yen URon 05-28-2022 , QUAL Negative Normal NEGATIVE [facility] Comment on above: Performed By: #### Darian RUR, PREGU #### [facility] [address] [place] [address] Dr. Lester Yen PROF 14(COMP METB)on 022 Albumin [Mass/Vol] 4.0 g/dL Normal 3.4-5.0 [facility] Comment on above: Performed By: #### C MP LIPA, SYLVIA #### [facility] [address] [place] [address] Dr. Lester Yen Albumin/Globulin [Mass ratio] 1.4 {ratio} Normal [facility] Comment on above: Performed By: #### C MP, LIPA, SYLVIA #### [facility] [address] [place] [address] Dr. Lester Yen ALP [Catalytic activity/Vol] 56 U/L Normal 46-116 [facility] Comment on above: Performed By: #### C MP, LIPA, SYLVIA #### [facility] [address] [address] [address] Lester Yen ALT [Catalytic activity/Vol] 14 U/L Normal 14-59 [facility] Comment on above: Performed By: #### C MP, LIPA, SYLVIA #### [facility] [address] [place] [address] Dr. Lester Yen Anion gap [Moles/Vol] 13.3 mmol/L Normal Th [facility] Comment on above: Performed By: #### C MP, LIPA, SYLVIA #### [facility] [address] [place] [address] Dr. Lester Yen AST [Catalytic activity/Vol] 11 U/L Critically low 15-37 [facility] Comment on above: Performed By: #### C MP, LIPA, SYLVIA #### [facility] [address] [place] [address] Dr. Lester Yen Bilirubin [Mass/Vol] 0.5 mg/dL Normal 0.2-1.0 [facility] Comment on above: Performed By: #### C MP, LIPA, SYLVIA #### [facility] [address] [place] [address] Dr. Lester Yen Calcium [Mass/Vol] 8.9 mg/dL Normal 8.5-10.1 [facility] Comment on above: Performed By: #### C MP, LIPA, SYLVIA #### [facility] [address] [place] [address] Dr. Lester Yen Chloride [Moles/Vol] 105 mmol/L Normal 98-107 [facility] Comment on above: Performed By: #### C MP, LIPA, SYLVIA #### [facility] [address] [place] [address] Dr. Lester Yen CO2 [Moles/Vol] 24.4 mmol/L Normal 21.0-32.0 [facility] Comment on above: Performed By: #### C MP, LIPA, SYLVIA #### [facility] [address] [place] [address] Dr. Lester Yen Creatinine [Mass/Vol] 0.88 mg/dL Normal 0.55-1.02 [facility] Comment on above: Performed By: #### C ANJU PULIDO SYLVIA #### [facility] [address] [address] [address] Lester Yen EGFR-AF BRUNEIAN >60 Normal >=60 [facility] Comment on above: Performed By: #### C ANJU PULIDO, SYLVIA #### [facility] [address] [address] [address] Lester Yen EGFR-NON AF BRUNEIAN >60 Normal >=60 [facility] Comment on above: Performed By: #### C ANJU PULIDO, SYLVIA #### [facility] [address] [place] [address] Dr. Lester Yen Globulin (S) [Mass/Vol] 2.8 g/dL Normal T [facility] Comment on above: Performed By: #### C ANJU PULIDO, SYLVIA #### [facility] [address] [address] [address] Lester Yen Glucose [Mass/Vol] 100 mg/dL Normal 74-106 [facility] Comment on above: Performed By: #### C ANJU PULIDO, SYLVIA #### [facility] [address] [address] [address] Lester Yen Potassium [Moles/Vol] 3.7 mmol/L Normal 3.5-5.1 [facility] Comment on above: Performed By: #### C ANJU PULIDO, SYLVIA #### [facility] [address] [place] [address] Dr. Lester Yen Protein [Mass/Vol] 6.8 g/dL Normal 6.4-8.2 [facility] Comment on above: Performed By: #### C ANJU PULIDO, SYLVIA #### [facility] [address] [place] [address] Dr. Lester Yen Sodium [Moles/Vol] 139 mmol/L Normal 136-145 [facility] Comment on above: Performed By: #### C ANJU PULIDO, SYLVIA #### [facility] [address] [address] [address] Lester Yen Urea nitrogen [Mass/Vol] 13.0 mg/dL Normal 7.0-18.0 [facility] Comment on above: Performed By: #### C NAJU PULIDO AMY #### [facility] [address] [id number] Lester Yen Urea nitrogen/Creatinine [Mass ratio] 14.8 mg/mg Normal [facility] Comment on above: Performed By: #### C ANJU PULIDO AMY #### [facility] [address] [place], [place] [address] Dr. Lester Yen Retirement Documentson 04-19-2021 Retirement Documents [id number]:127 Normal [facility] Retirement Documentson 06-06-2020 Retirement Documents Retirement Nurse Visit 14 day Health Appraisal Date of Appraisal: _05/31/2020 Booked Date: 05/26/2020 Court or Release Date: 06/02/2020 Did inmate come from another facility: no PCP: Eusebio Spears Specialist: supposed to see a GI doctor Pharmacy: [facility] Have you ever had suicide attempts: [...] forearm Date vial opened: 05/18/2020 Lot number: [id number] Expiration date: 01/24 PPD Comments: PPD Results [...] wish to attend AA Meetings? _ sure Retirement Assessment 05/31/20 15:54:00 Retirement Assessment Entered On: 05/31/2020 15:56 EDT Performed [...] (more content not included)... Normal [facility] Retirement Documentson 05-29-2020 Retirement Documents [id number]:127 Normal [facility] Chlam/GC/Trich,NAAon 020 C. trachomatis rRNA JOSE+probe Ql (Unsp spec) Negative Invalid Interpretation Code Negative [facility] Comment on above: Performed By: #### 1 [id number] #### [facility] [address] [place] [address] N. gonorrhoeae rRNA JOSE+probe Ql (Unsp spec) Negative Invalid Interpretation Code Negative [facility] Comment on above: Performed By: #### 1 [id number] #### [facility] [address] [place] [address] T. vaginalis DNA JOSE+probe Ql (Unsp spec) Negative Invalid Interpretation Code Negative [facility] Comment on above: Result Comment: Perf ormed at: =G [facility] [address] [facility] Christina Gan [id number] MD Jama Valdivia Performed By: #### 1 [id number] #### [facility] [address] [place] [address] Coding Summary.on 05-15-2020 Coding Summary. CODING DATE: 05/15/2020 FINAL [facility] STATUS: Home (Routine [place]) PAYOR: Medicaid EAPG DESCRIPTION 0425 LEVEL I [...] Saved: 05/15/2020 10:37 am Normal [facility] Amylaseon 05-14-2020 Amylase [Catalytic activity/Vol] 58 U/L Normal 25-157 [facility] Comment on above: Performed By: #### 2 [id number], [id number], 1686360, 5658811, 0598161, 9579354, 8021335 ####[facility] [address] [place] [address] Auto Diffon 05-14-2020 Basophils/100 WBC (Bld) 0.5 % Normal 0.0-2.0 [facility] Comment on above: Order Comment: Order Added by Discern Expert. Performed By: #### 2 303069, [id number], 9019110, 0076381, 2732338, 3988676, 4681081 [address] [place] [address] Basophils/Leukocytes Auto (Bld) [Pure # fraction] 0.0 E9/L Normal 0.0-0.2 [facility] Comment on above: Order Comment: Order Added by Discern Expert. Performed By: #### 2 941004, [id number], 9102168, 6863346, 3521440, 5757465, 8947896 ####[facility] [address] [place] [address] Eosinophils/100 WBC (Bld) 8.4 % High 0.0-8.0 [facility] Comment on above: Order Comment: Order Added by Discern Expert. Performed By: #### 2 241327, 11659751, 2153183, 2279569, 4848711, 3440983, 6699805 ####[address] [place] [address] Eosinophils/Leukocytes Auto (Bld) [Pure # fraction] 0.5 E9/L Normal 0.0-0.5 [facility] Comment on above: Order Comment: Order Added by Discern Expert. Performed By: #### 2 730104, 15722470, 2531290, 3500339, 5672575, 7143848, 9578180 ####[address] [place] [address] Lymphocytes/100 WBC (Bld) 31.4 % Normal 14.0-50.0 [facility] Comment on above: Order Comment: Order Added by Discern Expert. Performed By: #### 2 553962, 11295903, 3712784, 4662963, 4619777, 7939340, 8631116 ####[facility] [address] [place] [address] Lymphocytes/Leukocytes Auto (Bld) [Pure # fraction] 1.8 E9/L Normal 1.0-4.0 [facility] Comment on above: Order Comment: Order Added by Discern Expert. Performed By: #### 2 024925, 67113563, 8032395, 5203765, 6154268, 6422637, 2423419 ####[address] [place] [address] Monocytes/100 WBC (Bld) 8.2 % Normal 4.0-14.0 [facility] Comment on above: Order Comment: Order Added by Lacy Expert. Performed By: #### 2 219473, 49155851, 7508319, 3586110, 6958515, 1165084, 1766281 ####[facility] [address] [place] [address] Monocytes/Leukocytes Auto (Bld) [Pure # fraction] 0.5 E9/L Normal 0.2-1.0 [facility] Comment on above: Order Comment: Order Added by Lacy Expert. Performed By: #### 2 664657, 06001441, 2063761, 8198662, 6984692, 6943352, 9906699 ####[address] [place] [address] Neutrophils/100 WBC (Bld) 51.5 % Normal 36.0-75.0 [facility] Comment on above: Order Comment: Order Added by Lacy Expert. Performed By: #### 2 255298, 40509152, 0381278, 3686533, 1921006, 4373234, 5655248 ####[facility] [address] [place] [address] Neutrophils/Leukocytes Auto (Bld) [Pure # fraction] 2.9 E9/L Normal 2.0-7.5 [facility] Comment on above: Order Comment: Order Added by Discern Expert. Performed By: #### 2 915989, 56527523, 4129123, 9210152, 0597736, 1792493, 4266219 ####[facility] [address] [place] [address] BMPon 05-14-2020 Creatinine [Mass/Vol] 0.9 mg/dL Normal 0.5-1.3 [facility] Comment on above: Performed By: #### 2 047508, 05881033, 9081610, 1937257, 1271125, 6505511, 5934729 ####[facility] [address] [place] [address] Urea nitrogen [Mass/Vol] 14 mg/dL Normal 5-21 [facility] Comment on above: Performed By: #### 2 839403, 63011261, 8183917, 8162714, 2401399, 5208650, 6439271 ####[facility] [address] [place] [address] Urea nitrogen/Creatinine [Mass ratio] 16 No Units Normal 10-20 [facility] Comment on above: Performed By: #### 2 490573, 91659290, 4593055, 1304428, 7578969, 5700098, 7465288 ####[facility] [address] [place] [address] Anion gap [Moles/Vol] 12 mmol/L Normal 6-16 [facility] Comment on above: Performed By: #### 2 488452, 79468533, 7607890, 8315500, 4746578, 5923873, 1876271 ####[facility] [address] [place] [address] Calcium [Mass/Vol] 9.3 mg/dL Normal 8.9-11.1 [facility] Comment on above: Performed By: #### 2 076595, 46261362, 9292071, 9450557, 8968614, 0049328, 7221820 ####[facility] [address] [place] [address] Chloride [Moles/Vol] 103 mmol/L Normal 101-111 [facility] Comment on above: Performed By: #### 2 051577, 56157964, 1469173, 1050864, 1869863, 7352852, 8207343 ####[facility] [address] [place] [address] CO2 [Moles/Vol] 27 mmol/L Normal 21-31 [facility] Comment on above: Performed By: #### 2 316319, 55229217, 4106695, 0560297, 4950926, 6032765, 9269462 ####[facility] [address] [place] [address] Glucose [Mass/Vol] 89 mg/dL Normal 55-199 [facility] Comment on above: Result Comment: If t his glucose result represents a fasting glucose, interpretation should refer to the following reference range: 55-99 mg/dL Performed By: #### 2 503202, 29371016, 9275420, 5265147, 7939763, 2725207, 8359742 ####[facility] [address] [place] [address] Potassium [Moles/Vol] 3.8 mmol/L Normal 3.5-5.3 [facility] Comment on above: Performed By: #### 2 326848, 01582778, 6844047, 8767117, 9401919, 7931391, 2520588 ####[facility] [address] [place] [address] Sodium [Moles/Vol] 138 mmol/L Normal 135-145 [facility] Comment on above: Performed By: #### 2 261785, 60806892, 4515208, 2070462, 9883527, 0294009, 9297973 ####[facility] [address] [place] [address] CBC w/ Auto Diffon 0 Erythrocyte distribution width (RBC) [Ratio] 12.7 % Normal 10.9-14.2 [facility] Comment on above: Performed By: #### 2 249609, 62333810, 5198851, 2415999, 4821109, 8006522, 7770737 ####[place] [address] [place] [address] Hematocrit (Bld) [Volume fraction] 41.7 % Normal 34.0-46.0 [facility] Comment on above: Performed By: #### 2 120892, 58778857, 6957713, 4400086, 2110893, 6010971, 0501062 ####[facility] [address] [place] [address] Hemoglobin (Bld) [Mass/Vol] 13.9 g/dL Normal 12.0-16.0 [facility] Comment on above: Performed By: #### 2 856826, 86371025, 4141106, 1321742, 6028984, 5116596, 9298212 ####[address] [address] MCH (RBC) [Entitic mass] 30.8 pg Normal 27.0-34.0 [facility] Comment on above: Performed By: #### 2 807412, 01483121, 7281658, 7993748, 3886152, 9131654, 1627813 ####[address] [address] MCHC (RBC) [Mass/Vol] 33.3 g/dL Normal 31.4-36.0 [facility] Comment on above: Performed By: #### 2 700660, 72601836, 0304176, 1828851, 4738167, 1643795, 8664465 ####[address] [address] MCV (RBC) [Entitic vol] 92.5 fL Normal 80.0-100.0 [facility] Comment on above: Performed By: #### 2 883038, 16590712, 1334136, 7429327, 9044375, 8526225, 8620370 ####[facility] [address] [place] [address] Platelet mean volume (Bld) [Entitic vol] 8.2 fL Normal 6.4-10.8 [facility] Comment on above: Performed By: #### 2 502670, 18150333, 6255375, 6251720, 4961850, 8913790, 1656319 ####[facility] [address] [place] [address] Platelets (Bld) [#/Vol] 230.0 E9/L Normal 150.0-500.0 [facility] Comment on above: Performed By: #### 2 649791, 68303730, 9584488, 5111245, 5648355, 3883896, 5422447 ####[facility] [address] [place] [address] RBC (Bld) [#/Vol] 4.5 E12/L Normal 4.3-5.9 [facility] Comment on above: Performed By: #### 2 846293, 89454677, 4113502, 6585034, 5530697, 7464330, 5672038 ####[address] [place] [address] WBC corrected for nucl RBC Auto (Bld) [#/Vol] 5.7 E9/L Normal 4.0-11.0 [facility] Comment on above: Performed By: #### 2 270450, 20315529, 5276433, 0342725, 4769149, 2972305, 0547119 ####[address] [place] [address] Discharge Instructionson Discharge Instructions [id number] 080 [id number] #1.00CD:127 Normal [facility] ED Clinical Summaryon 2019 ED Clinical Summary [address] [address] ED Clinical Summary Person Information Name: BREANA PICKETT/[facility] Age: 29 Years : 1990 Sex: Female Language: Spanish PCP: Mica CARLTON MD Marital Status: Single Phone: [phone] Visit Id: Visit Reason: Abdominal pain; STOMACH [...] 05/14/2020 04:35:55 05/14/2020 04:35:55 05/14/2020 04:35:55 ADDRESS: [address] [place] [address] PHYS DOC NOTES: MEDICAL INFORMATION: Prescriptions Given: New Medications Printed Prescriptions levofloxacin (Levaquin 500 mg Tab) 1 Tablets By Mouth every day. Refills: 0. Medications to Continue with No Changes Other Medications escitalopram (Lexapro 10 mg Tab) 1 Tablets By Mouth every day. PATIENT EDUCATION INFORMATION: Instructions: Pelvic Pain, Female, Rkft-sy-Vbyr Follow up: With: Address: When: Mica CARLTON [address] [place], [place] [address] [address], [place] [phone] Business (1) In 3 days 05/17/2020 Comments: Followup with your commercial property manager next week DIAGNOSIS: 1:Abdominal pain in female; Pelvic pain Normal [facility] ED Note-Nursingon 05-14-2020 ED Note-Nursing Dr. Renner aware of patient c/o generalized abd pain, rates at 7/10. Order received for [place], 2 tabs, one-time only. Normal [facility] ED Note-Nursing Dr. Renner at bedside for results review. Normal [facility] ED Note-Nursing Patient to u/s Normal Crista romano [facility] ED Note-Nursing Dr. Renner at bedside for results update. Normal [facility] ED Note-Nursing Patient to xray. Normal [facility] ED Note-Nursing Dr. Renner at bedside for assessment. Normal [facility] ED Note-Physicianon 05-14-20 ED Note-Physician Basic Information [...] infection and recommend she followup with her commercial property manager Assessment/Plan 1. Abdominal pain in female (R10.9: [...] 22:35:00) Lymph Auto: 31.4 % (05/13/20 22:35:00) Coal Auto: 8.2 % (05/13/20 22:35:00) Eos Auto: 8.4 % High (05/13/20 22:35:00) Basophil Auto: 0.5 % (05/13/20 22:35:00) Neutro Absolute: 2.9 E9/L (05/13/20 22:35:00) Lymph Absolute: 1.8 E9/L (05/13/20 22:35:00) Coal Absolute: 0.5 E9/L (05/13/20 22:35:00) Eos Absolute: 0.5 E9/L (05/13/20 (more content not included)... Normal [facility] Comment on above: Result Comment: Elec [...] Document Reviewed: 01/11/2013 ExitCare? Patient Information ?2015 [employer]. This information is not intended to replace advice given to you by your health care provider. Make sure you discuss any questions you have with your health care provider. Normal [facility] ED Patient Summaryon 020 ED Patient Summary [place] [id number] Patient Discharge Instructions Person Information Name: BREANA PICKETT Age: 29 Years Arrival Date: 05/13/2020 21:43:46 Discharge Diagnosis: 1:Abdominal pain in female; Pelvic pain Primary Care Physician: Mica CARLTON MD Provider Information Primary Provider: Lucio Renner MD Advanced Supervisor [employer]:None The exam and treatment you received in the Emergency Department were for an urgent problem and are not intended as complete care. It is important that you follow up with a doctor, nurse practitioner, or physician?s legislative assistant for ongoing care. If your symptoms become worse or you do not improve as expected and you are unable to reach your usual health care provider, you should return to the Emergency Department. We are available 24 hours a day. BREANA PICKETT has been given the following list of patient education materials, prescriptions and follow-up instructions: Follow-up Instructions: With: Address: When: Mica [place] [address] [place], [place] [address] [phone] Business (1) In 3 days 05/17/2020 Comments: Followup with your commercial property manager next week In the event that this physician does not participate in your insurance network, please consult with your insurance company to find a nearby participating provider. Patient Education Materials: Pelvic Pain, Female, Sybr-tm-Tthk A MESSAGE TO ALL PATIENTS REGARDING OPIOIDS PRESCRIPTION OPIOIDS: WHAT YOU NEED TO KNOW Prescription opioids can be used to help relieve pclcrskl-lr-hnooey pain and are often prescribed following a [...] (more content not included)... Normal [facility] Hep Func Panelon 05-14-2020 Bilirubin.indirect [Mass or moles/Vol] UTC Abnormal 0.1-0.9 [facility] Comment on above: Result Comment: Resu lt verified by Discern Rule. Performed result UTC (Unable to Calculate) was sent as an Alpha code due the inability to calculate a valid numeric value. Performed By: #### 2 516133, 87639187, 9749331, 8166339, 0858678, 5978789, 8024548 ####[facility] [address] [place] [address] Albumin [Mass/Vol] 4.2 g/dL Normal 3.3-5.0 [facility] Comment on above: Performed By: #### 2 192993, 07061756, 5241857, 7941172, 4208217, 5400466, 5123885 ####[facility] [address] [place] [address] Albumin/Globulin (S) [Mass conc ratio] 1.4 Normal 1.1-2.2 [facility] Comment on above: Performed By: #### 2 243642, 48083885, 8315633, 5513721, 9789638, 5217625, 8338591 ####[facility] [address] [place] [address] ALP [Catalytic activity/Vol] 62 Int._Unit/L Normal 21-98 [facility] Comment on above: Performed By: #### 2 530412, 12210800, 3438020, 2492980, 3847803, 9610240, 4807441 ####[address] [address] ALT No additional P-5'-P [Catalytic activity/Vol] 15 Int._Unit/L Normal 6-46 [facility] Comment on above: Performed By: #### 2 928175, 03248016, 4829868, 0392359, 1462138, 2745237, 4221253 ####[facility] [address] [place] [address] AST [Catalytic activity/Vol] 15 Int._Unit/L Normal 5-43 [facility] Comment on above: Performed By: #### 2 426673, 06898510, 5334083, 8275167, 0523621, 9026539, 8654158 ####[facility] [address] [place] [address] Bilirubin [Mass/Vol] 0.8 mg/dL Normal 0.0-1.1 [facility] Comment on above: Performed By: #### 2 216587, 41802872, 5202063, 3414385, 6439713, 2005981, 5480346 ####[facility] [address] [place] [address] Bilirubin.direct [Mass/Vol] mg/dL Normal 0.1-0.4 [facility] Comment on above: Performed By: #### 2 790895, 18995368, 2804715, 1055565, 3806463, 9198568, 4717687 ####[facility] [address] [place] [address] Globulin (S) [Mass/Vol] 2.9 g/dL Normal 1.4-4.0 [facility] Comment on above: Performed By: #### 2 282057, 12004693, 5075848, 1147193, 6133038, 4290173, 2968139 ####[address] [address] Protein [Mass/Vol] 7.1 g/dL Normal 6.0-7.8 [facility] Comment on above: Performed By: #### 2 967107, 44388330, 4088346, 1078190, 4653852, 0238666, 6517737 ####[facility] [address] [place] [address] Lipase Levelon 05-14-2020 Lipase [Catalytic activity/Vol] 36 U/L Normal 13-58 [facility] Comment on above: Performed By: #### 2 170036, 62065143, 3152559, 3114219, 5541274, 3517039, 1507841 ####[address] [place] [address] U BetaHcg Qualon 05-14-2020 HCG.beta subunit (U) [Moles/Vol] Negative Normal [facility] Comment on above: Performed By: #### 2 6151647, 82521630 #### [facility] [address] [place] [address] UA With Cult Reflexon 2019 Bilirubin Ql (U) Negative Normal Negative [facility] Comment on above: Performed By: #### 2 5163291, 07408345 #### [facility] [address] [place] [address] Clarity (U) SL CLOUDY Abnormal Clear [facility] Comment on above: Performed By: #### 2 1363365, 59983352 #### [facility] [address] [place] [address] Color (U) YELLOW Normal Yellow [facility] Comment on above: Performed By: #### 2 9249949, 94296383 #### [facility] [address] [place] [id number] Epithelial cells.squamous LM.HPF (Urine sed) [#/Area] 3-4 Normal 0-2 [facility] Comment on above: Performed By: #### 2 3289546, 79903172 #### [facility] [address] [place] [address] Glucose Test strip (U) [Mass/Vol] Negative Normal Negative [facility] Comment on above: Performed By: #### 2 1960933, 39847856 #### [facility] [address] [place] [address] Hemoglobin Ql (U) Negative Normal Negative [facility] Comment on above: Performed By: #### 2 7234023, 77899811 #### [facility] [address] [place] [address] Ketones (U) [Mass/Vol] TRACE Abnormal Negative Fi [facility] Comment on above: Performed By: #### 2 3123170, 89010294 #### [facility] [address] [place] [address] [place].plasma/[place]. RBC (Bld) [Mass ratio] 0-3 Normal 0-3 [facility] Comment on above: Performed By: #### 2 1652587, 40769382 #### [facility] [address] [place] [address] Nitrite Ql (U) Negative Normal Negative [facility] Comment on above: Performed By: #### 2 2882826, 10631086 #### [facility] [address] [place] [address] pH (U) 7.0 [pH] Invalid Interpretation Code 5.0-9.0 [facility] Comment on above: Performed By: #### 2 0655702, 65545415 #### [facility] [address] [place] [address] Protein (U) [Mass/Vol] Negative Normal Negative [facility] Comment on above: Performed By: #### 2 0068895, 86062199 #### [facility] [address] [place] [address] Specific gravity (U) [Rel density] 1.020 Invalid Interpretation Code 1.005-1.030 [facility] Comment on above: Performed By: #### 2 4442007, 55692969 #### [facility] [address] [place] [address] UA Spec Desc Clean Catch Normal [facility] Comment on above: Performed By: #### 2 4085418, 53922818 #### [facility] [address] [place] [address] Urobilinogen Qn (U) 0.2 {Olivier'U}/dL Normal 0.0-1.0 [facility] Comment on above: Performed By: #### 2 7768357, 50393447 #### [facility] [address] [place] [address] WBC Auto Ql (U) Negative Normal Negative [facility] Comment on above: Performed By: #### 2 4446514, 22077897 #### [facility] [address] [place] [address] WBC LM.HPF (Urine sed) [#/Area] 0-5 Normal 0-5 [facility] Comment on above: Performed By: #### 2 1405289, 05033412 #### [facility] [address] [place] [address] [place] [address] US Pelvis Non-OB Completeon 05-14-2020 US Pelvis [...] Comments Transabdominal Ultrasound Performed Normal [facility] XR Abdomen Series w/ Chest 1 [...] Yusuf DO Transcribed by: GABRIELE Technologist: TERESA Hutson [facility] eGFRon 05-14-2020 GFR/1.73 sq M.predicted among blacks MDRD (S/P/Bld) [Vol rate/Area] mL/min/{1.73_m2} Normal >=59 [facility] Comment on above: Order Comment: Order added by Discern Expert. Result Comment: eGFR is race adjusted. AA=. Performed By: #### 2 746366, 42068514, 6103714, 6406150, 8022708, 5881513, 7520205 ####[facility] [address] [place] [address] GFR/1.73 sq M.predicted among non-blacks MDRD (S/P/Bld) [Vol rate/Area] mL/min/{1.73_m2} Normal >=59 [facility] Comment on above: Order Comment: Order added by Discern Expert. Result Comment: Recreation Programmer pérez kidney disease could be indicated at eGFR's of less than 60 mL/min/1.73m2. Kidney failure is indicated at less than 15 mL/min/1.73m2. Performed By: #### 2 319298, 71736004, 2825385, 7875086, 1494075, 4041528, 2633085 ####[facility] [address] [place] [address] Consent for Treatmenton Consent for Treatment [id number] 00 [id number] #1.00CD:127 Normal [facility] Vital Signs Date Time Vital Sign Value Performing Clinician Facility 11-02-2024 10:59-0500 Body mass index (BMI) [Ratio] 23.91 kg/m2 [employer] Work Phone: [facility] 11-02-2024 10:59-0500 Body weight 61.24 kg Dominic Mri DO Work Phone: [facility] 11-02-2024 10:59-0500 Diastolic blood pressure 68 mm[Hg] Dominic Mir DO Work Phone: [facility] 11-02-2024 10:59-0500 Systolic blood pressure 116 mm[Hg] Dominic Mir DO Work Phone: [facility] 10-26-2024 10:04-0500 Body temperature 98.5 [degF] PHYSICIAN NO [facility] 10-26-2024 10:04-0500 Diastolic blood pressure 64 mm[Hg] PHYSICIAN NO [facility] 10-26-2024 10:04-0500 Heart rate 60 /min PHYSICIAN NO [facility] 10-26-2024 10:04-0500 Respiratory rate 18 /min PHYSICIAN NO [facility] 10-26-2024 10:04-0500 SaO2% (BldA) [Mass fraction] 100 % PHYSICIAN NO [facility] 10-26-2024 10:04-0500 Systolic blood pressure 111 mm[Hg] PHYSICIAN NO [facility] 10-26-2024 10:02-0500 Body height 160.02 cm PHYSICIAN NO [facility] 10-26-2024 10:02-0500 Body weight 58.5 kg PHYSICIAN NO [facility] 10-01-2024 11:38-0500 Body mass index (BMI) [Ratio] 22.11 kg/m2 [facility] 10-01-2024 11:38-0500 Body weight 56.61 kg [facility] 10-01-2024 11:38-0500 Diastolic blood pressure 70 mm[Hg] [facility] 10-01-2024 11:38-0500 Systolic blood pressure 120 mm[Hg] [facility] 07-19-2024 13:26-0400 Body mass index (BMI) [Ratio] 22.5 kg/m2 Dominic Mir DO Work Phone: [facility] 07-19-2024 13:26-0400 Body weight 57.61 kg Dominic Mir DO Work Phone: [facility] 07-19-2024 13:26-0400 Diastolic blood pressure 60 mm[Hg] Dominic Mir DO Work Phone: [facility] 07-19-2024 13:26-0400 Systolic blood pressure 110 mm[Hg] Dominic Mir DO Work Phone: [facility] 06-29-2024 14:00-0400 Body mass index (BMI) [Ratio] 20.73 kg/m2 Dominic Mir DO Work Phone: [facility] 06-29-2024 14:00-0400 Body weight 53.07 kg Dominic Mir DO Work Phone: [facility] 06-29-2024 14:00-0400 Diastolic blood pressure 66 mm[Hg] Dominic Mir DO Work Phone: [facility] 06-29-2024 14:00-0400 Systolic blood pressure 108 mm[Hg] Dominic Mir DO Work Phone: [facility] 06-17-2024 14:12-0400 Body height 160.02 cm PHYSICIAN NO [facility] 06-17-2024 14:12-0400 Body temperature 98.5 [degF] PHYSICIAN NO [facility] 06-17-2024 14:12-0400 Body weight 52.4 kg PHYSICIAN NO [facility] 06-17-2024 14:12-0400 Diastolic blood pressure 52 mm[Hg] PHYSICIAN NO [facility] 06-17-2024 14:12-0400 Heart rate 72 /min PHYSICIAN NO [facility] 06-17-2024 14:12-0400 Respiratory rate 20 /min PHYSICIAN NO [facility] 06-17-2024 14:12-0400 SaO2% (BldA) [Mass fraction] 99 % PHYSICIAN NO [facility] 06-17-2024 14:12-0400 Systolic blood pressure 109 mm[Hg] PHYSICIAN NO [facility] 04-07-2023 14:45-0400 Body height 160.02 cm Dutch Mendez Other [employer] Other 04-07-2023 14:45-0400 Body mass index (BMI) [Ratio] 21.25 kg/m2 Dutch Mendez Other [employer] Other 04-07-2023 14:45-0400 Body temperature 98 [degF] Dutch Mendez Other [employer] Other 04-07-2023 14:45-0400 Body weight 54.43 kg Dutch Mendez Other [employer] Other 04-07-2023 14:45-0400 Diastolic blood pressure 62 mm[Hg] Dutch Mendez Other [employer] Other 04-07-2023 14:45-0400 Respiratory rate 18 /min Dutch Mendez Other [employer] Other 04-07-2023 14:45-0400 SaO2% (BldA) [Mass fraction] 97 % Dutch Mendez Other [employer] Other 04-07-2023 14:45-0400 Systolic blood pressure 99 mm[Hg] Dutch Mendez Other [employer] Other 01-03-2023 18:30-0400 Diastolic blood pressure 53 mm[Hg] MANAGER SOCIAL-C Naomymyles Swansony Work Phone: [facility] 01-03-2023 18:30-0400 Heart rate 51 /min MANAGER SOCIAL-C Naomy Luby Work Phone: [facility] 01-03-2023 18:30-0400 Respiratory rate 16 /min MANAGER SOCIAL-C Naomy Luby Work Phone: [facility] 01-03-2023 18:30-0400 SaO2% (BldA) [Mass fraction] 100 % MANAGER SOCIAL-C Naomy Luby Work Phone: [facility] 01-03-2023 18:30-0400 Systolic blood pressure 96 mm[Hg] MANAGER SOCIAL-C Naomy Luby Work Phone: [facility] 01-03-2023 14:50-0400 Body height 160.02 cm MANAGER SOCIAL-C Naomy Luby Work Phone: [facility] 01-03-2023 14:50-0400 Body temperature 98.1 [degF] MANAGER SOCIAL-C Naomy Luby Work Phone: [facility] 01-03-2023 14:50-0400 Body weight 58.65 kg MANAGER SOCIAL-C Naomy Luby Work Phone: [facility] 08-02-2022 20:04-0400 Diastolic blood pressure 51 mm[Hg] MANAGER SOCIAL-C Naomy Luby Work Phone: [phone] [place] [address] 08-02-2022 20:04-0400 Heart rate 81 /min MANAGER SOCIAL-C Naomy Luby Work Phone: [facility] 08-02-2022 20:04-0400 Respiratory rate 16 /min MANAGER SOCIAL-C Naomy Luby Work Phone: [facility] 08-02-2022 20:04-0400 SaO2% (BldA) [Mass fraction] 100 % MANAGER SOCIAL-C Naomy Luby Work Phone: [facility] 08-02-2022 20:04-0400 Systolic blood pressure 104 mm[Hg] MANAGER SOCIAL-C Naomy Luby Work Phone: [facility] 08-02-2022 17:33-0400 Body height 160.02 cm MANAGER SOCIAL-C Naomy Luby Work Phone: [facility] 08-02-2022 17:33-0400 Body temperature 98.8 [degF] MANAGER SOCIAL-C Naomy Luby Work Phone: [facility] 08-02-2022 17:330400 Body weight 59.4 kg MANAGER SOCIAL-Lauren Garcia Work Phone: [facility] Encounters Encounter Date Encounter Type Care Provider Facility Start: 11-02-2024 End: 11-02-2024 Bamboo flowsheet Dominic Mir DO Work Phone: [facility] Start: 11-02-2024 End: 11-02-2024 Bamboo flowsheet Dominic Mir DO Work Phone: [facility] Start: 11-02-2024 End: 11-02-2024 ambulatory DOMINIC MIR Not Available Start: 11-02-2024 End: 11-02-2024 Office outpatient visit 15 minutes Dominic Mir DO Work Phone: [facility] Comment on above: 12 weeks gestation o f ; First trimester Start: 10-26-2024 End: 10-26-2024 Emergency department patient visit PHYSICIAN KARLY [facility] Work Phone: Start: 10-19-2024 End: 10-19-2024 Clinisync Result Encounter Dominic Mir DO Work Phone: [facility] Unsolicited Start: 10-19-2024 End: 10-19-2024 Clinisync Result Encounter Dominic Mir DO Work Phone: [facility] Unsolicited Start: 10-01-2024 End: 10-01-2024 Office outpatient visit 5 minutes [facility] Mir Nurse [facility] Comment on above: GA: 8w1d Start: 10-01-2024 End: 10-01-2024 ambulatory DOMINIC MIR Not Available Start: 09-08-2024 End: 09-08-2024 Clinisync Result Encounter Dominic Mir DO Work Phone: [facility] Unsolicited Start: 09-08-2024 End: 09-08-2024 Clinisync Result Encounter Dominic Mir DO Work Phone: [facility] Unsolicited Start: 09-06-2024 End: 09-06-2024 Clinisync Result Encounter Dominic Mir DO Work Phone: [facility] Unsolicited Start: 09-06-2024 End: 09-06-2024 Clinisync Result Encounter Dominic Mir DO Work [...] Female infertility; Anovulation Start: 06-29-2024 End: 06-29-2024 Bamboo flowsheet Dominic Mir DO Work Phone: [facility] Start: 06-29-2024 End: 06-29-2024 Bamboo flowsheet Dominic Mir DO Work Phone: [facility] Start: 06-29-2024 End: 06-29-2024 Office outpatient visit 15 minutes Dominic Mir DO Work Phone: [facility] Comment on above: Pelvic pain in femal e Start: 06-29-2024 End: 06-29-2024 ambulatory DOMINIC MIR Not Available Start: 06-17-2024 End: 06-17-2024 Emergency department patient visit PHYSICIAN KARLY AGN [facility] Work Phone: Start: 04-24-2024 End: 04-24-2024 Patient encounter procedure MANAGER SOCIAL-C Naomy Radha Work Phone: [facility] [place] Work Phone: Start: 04-24-2024 End: 04-24-2024 ambulatory MANAGER SOCIAL-C Naomy Radha Work Phone: [facility] Work Phone: Start: 03-09-2024 End: 03-09-2024 ambulatory DOMINIC MIR Not Available Start: 02-09-2024 End: 02-09-2024 ambulatory DOMINIC MIR Not Available Start: 02-09-2024 End: 02-09-2024 Patient encounter procedure MANAGER SOCIAL-C Naomy Garcia Work Phone: [facility]Ul[facility]ound [facility] Work Phone: Start: 02-09-2024 End: 02-09-2024 ambulatory MANAGER SOCIAL-C Naomy Skyy Work Phone: [facility] Work Phone: Start: 01-06-2024 End: 01-06-2024 ambulatory DOMINIC MIR Not Available Start: 04-07-2023 End: 04-07-2023 ambulatory Dutch Mendez Other [employer] Other Start: 04-07-2023 Office outpatient ne w 20 minutes Dutch Mendez [facility] Start: 03-28-2023 End: 03-28-2023 ambulatory MANAGER SOCIAL-C Naomymyles Swansony Work Phone: [facility] Work Phone: Start: 03-28-2023 End: 03-28-2023 Patient encounter procedure MANAGER SOCIAL-C Naomymyles Garcia Work Phone: [facility] Work Phone: Start: 01-17-2023 End: 01-17-[address] DOMINIC HESTER . Facility:[facility] Start: 01-17-2023 End: 01-18-[address] DOMINIC HESTER . Facility:[facility] Start: 01-03-2023 End: 01-04-[address] DOCTOR PATEL Facility:[facility] Start: 01-03-2023 End: 01-03-2023 Emergency department patient visit MANAGER SOCIAL-C Naomy Garcia Work Phone: [facility]-Emergency Room Work Phone: Start: 12-26-2022 End: 12-27-[address] DOMINIC HESTER . Facility:[facility] Start: 12-25-2022 End: 12-26-[address] DOMINIC HESTER . Facility:[facility] Start: 08-02-2022 End: 08-02-2022 Emergency department patient visit MANAGER SOCIAL-Lauren Moralez Radha Work Phone: [facility]Emergency Room Start: 07-31-2022 Encounter for other preprocedural examination DR DOMINIC HESTER . [facility] Start: 07-29-2022 End: 07-30-2022 Encounter for other preprocedural examination DR DOMINIC HESTER . Facility:[facility] Start: 07-29-2022 End: 07-30-[address] DOMINIC HESTER . Facility:[facility] Start: 07-16-2022 End: 07-17-[address] DOMINIC HESTER . Facility:[facility] Start: 06-18-2022 End: 06-18-2022 Patient encounter procedure MANAGER SOCIAL-C Naomy Radha Work Phone: [facility] Start: 06-01-[address] DOMINIC HESTER . Facili ty:[facility]1 Start: 05-30-2022 End: 05-30-[address] DOMINIC HESTER . Facility:[facility] Start: 05-28-2022 End: 05-28-2022 ambulatory ROGELIO HERNANDEZ . Facility:[facility] Procedures Date Procedure Procedure Detail Performing Clinician Start: 11-02-2024 Urnls dip stick/tabl et rgnt non-auto w/o micrscp Dominic Mir DO Work Phone: Start: 10-26-2024 Ultrasonography of r ight kidney PHYSICIAN NO FAMILY Start: 10-19-2024 BOX TEST Dominic Fazi o DO Work Phone: Start: 10-01-2024 Urnls dip stick/tabl et rgnt non-auto w/o micrscp Dominic Mir DO Work Phone: Start: 09-08-2024 [facility] PREG QUANT HCG Core y Mir DO Work Phone: Start: 09-06-2024 [facility] PREG QUANT HCG Core y Mir DO Work Phone: Start: 08-23-2024 ALL PROGESTERONE Dominic Mir DO Work Phone: Start: 06-29-2024 End: 06-29-2024 Urnls dip stick/tablet rgnt non-auto w/o micrscp Dominic Mir DO Work Phone: Start: 02-09-2024 Pelvic echography MANAGER SOCIAL-Lauren Garcia Work Phone: Start: 02-09-2024 Transvaginal echography MANAGER SOCIAL-Lauren Garcia Work Phone: Start: 05-30-2023 Microscopic observat ion [Identifier] in Cervix by Cyto stain Dominic Mir DO Work Phone: Start: 01-03-2023 Diagnostic ultrasoun d of gravid uterus MANAGER SOCIAL-Lauren Garcia Work Phone: Start: 01-03-2023 Ultrasonography of r ight kidney MANAGER SOCIAL-Lauren Garcia Work Phone: Start: 01-03-2023 Transvaginal obstetr ic ultrasonography MANAGER SOCIAL-Lauren Garcia Work Phone: Plan of Treatment Date Care Activity Detail Author Start: 05-30-2028 Screening for malign ant neoplasm of cervix [facility] Start: 12-20-2024 End: 12-20-2024 Patient encounter procedure 12/20/2024 2:10 PM EDT Office Visit [facility] [address] [place] [id number] Dominic Hester, DO [address] [place] [address] [facility] Start: 11-02-2024 End: 11-02-2024 Patient encounter procedure 11/02/2024 10:40 AM EST Routine [facility] [address] [place] [id number] Dominic Hester, DO [address] [place] [address] [facility] Start: 10-01-2024 End: 10-01-2025 ABO/Rh ABO/Rh Lab Routine Missed menses , unspecified gestational age Expected: 10/01/2024 (Approximate), Expires: 10/01/2025 [facility] Comment on above: Expected: 10/01/2024 (Approximate), Expires: 10/01/2025 Start: 10-01-2024 End: 10-01-2025 Blood type and Indirect antibody screen panel - Blood Type and screen Lab Routine Missed menses , unspecified gestational age Expected: 10/01/2024 (Approximate), Expires: 10/01/2025 [facility] Work Phone: Comment on above: Expected: 10/01/2024 (Approximate), Expires: 10/01/2025 Start: 10-01-2024 End: 10-01-2025 Drugs of abuse panel - Urine by Screen method Rapid drug screen, urine Lab Routine , unspecified gestational age Encounter for supervision of normal first in first trimester Expected: 10/01/2024 (Approximate), Expires: 10/01/2025 [facility] Comment on above: Expected: 10/01/2024 (Approximate), Expires: 10/01/2025 Start: 07-19-2024 End: 07-19-2024 Patient encounter procedure 07/19/2024 1:00 PM EDT Office Visit [facility] [address] [place] [id number] Dominic Hester, DO [address] [place] [address] [facility] Start: 06-29-2024 End: 06-29-2025 SURESWAB(R) ADVANCED VAGINITIS PLUS, TMA SURESWAB(R) ADVANCED VAGINITIS PLUS, TMA Pathology and Cytology Routine Pelvic pain in female Expected: 06/29/2024 (Approximate), Expires: 06/29/2025 [facility] Work Phone: Comment on above: Expected: 06/29/2024 (Approximate), Expires: 06/29/2025 Start: 06-29-2024 End: 06-29-2025 US for US PELVIS-TRANSVAG IF INDICATED Imaging Routine Pelvic pain in female Expected: 06/29/2024 (Approximate), Expires: 06/29/2025 [facility] Comment on above: Expected: 06/29/2024 (Approximate), Expires: 06/29/2025 Start: 06-29-2024 End: 06-29-2024 Patient encounter procedure 06/29/2024 1:40 PM EDT Office Visit [facility] [address] [place] [id number] Dominic Hester, DO [address] [place] [address] Arrived [facility] Comment on above: Arrived Start: 06-06-2024 Influenza vaccination Influenza Vacc ine (#1) [facility] Start: 03-28-2023 [facility] Start: 01-03-2023 [facility] Start: 06-18-2022 [facility] Work Phone: Bacteria identified in Blood by Culture Blood Culture [facility] Bacteria identified in Urine by Culture Urine culture Microbiology Routine Missed menses Ordered: 10/01/2024 [facility] Comment on above: Ordered: 10/01/2024 CBC W Auto Different ial panel - Blood CBC and differential Lab Routine Missed menses , unspecified gestational age Ordered: 10/01/2024 [facility] Comment on above: Ordered: 10/01/2024 CHLAMYDIA TRACHOMATI S (GENITO/STI) CHLAMYDIA TRACHOMATIS (GENITO/STI) Lab Routine Pelvic pain in female Ordered: 06/29/2024 [facility] Comment on above: Ordered: 06/29/2024 Glucose measurement estimated from glycated hemoglobin [facility] Hemoglobin A1c/Hemoglobin.total in Blood Hemoglobin A1c Lab Routine Missed menses , unspecified gestational age Ordered: 10/01/2024 [facility] Comment on above: Ordered: 10/01/2024 Hepatitis A virus antibody, IgM type [facility] Work Phone: Hepatitis B core antibody measurement, IgM type [facility] Work Phone: Hepatitis B virus surface Ag [Presence] in Serum or Plasma by Immunoassay [facility] Work Phone: Hepatitis B virus surface Ag [Presence] in Serum or Plasma by Immunoassay Hepatitis B surface antigen Lab Routine Missed menses , unspecified gestational age Ordered: 10/01/2024 [facility] Comment on above: Ordered: 10/01/2024 Hepatitis C virus Ab [Presence] in Serum or Plasma by Immunoassay Hepatitis C antibody Lab Routine Missed menses , unspecified gestational age Ordered: 10/01/2024 [facility] Comment on above: Ordered: 10/01/2024 Hepatitis C virus Ab Signal/Cutoff in Serum or Plasma by Immunoassay [facility] Work Phone: Hepatitis C virus RN A [log units/volume] (viral load) in Serum or Plasma by JOSE with probe detection [facility] Work Phone: Hepatitis C virus RN A [Units/volume] (viral load) in Serum or Plasma by JOSE with probe detection [facility] Work Phone: HIV 1+2 Ab+HIV1 p24 Ag [Presence] in Serum or Plasma by Immunoassay [facility] Work Phone: HIV-1/HIV-2 antigen/antibody combination immunoassay HIV-1 and HIV-2 antibodies Lab Routine Missed menses , unspecified gestational age Ordered: 10/01/2024 [facility] Comment on above: Ordered: 10/01/2024 Neisseria gonorrhoea e DNA [Presence] in Unspecified specimen by JOSE with probe detection Neisseria gonorrhea DNA probe, direct Lab Routine Pelvic pain in female Ordered: 06/29/2024 [facility] Comment on above: Ordered: 06/29/2024 Patient Education [facility] Work Phone: Patient referral [facility] Work Phone: Reagin Ab [Presence] in Serum by RPR [facility] Work Phone: Reagin Ab [Presence] in Serum by RPR RPR Lab Routine Missed menses , unspecified gestational age Ordered: 10/01/2024 [facility] Comment on above: Ordered: 10/01/2024 Rubella antibody, IgG Rubella an tibody, IgG Lab Routine Missed menses , unspecified gestational age Ordered: 10/01/2024 [facility] Comment on above: Ordered: 10/01/2024 Payers Date Payer Category Payer Medicaid [facility] MEDICAID [employer] MEDICAID [place] [id number] 2022-Present [address] [place], [place] [id number] 2022 Private Health Insurance [employer] MEDICAID [id number] 1991 Unknown [id number] .[id number]. 593 1991 Unknown [id number] 2.16.840.1.320891.3.579.2. 593 1991 Unknown [id number] 2.16.840.1.404658.3.579.2. 593 1991 Unknown [id number] 2.16.840.1.183123.3.579.2. 593 1991 Unknown [id number] 2.16.840.1.821436.3.579.2. 593 1991 Unknown [id number] 2.16.840.1.321338.3.579.2. 593 1991 Unknown [id number] 2.16.840.1.221561.3.579.2. 593 1991 Unknown [id number] 2.16.840.1.987421.3.579.2. 593 1991 Unknown [id number] 2.16.840.1.579767.3.579.2. 593 1991 Unknown [id number] 2.16.840.1.848442.3.579.2. 593 1991 Unknown [id number] 2.16.840.1.716613.3.579.2. 593 1991 Unknown [id number] 2.16.840.1.726423.3.579.2. 593 1991 Unknown [id number] 2.16.840.1.506906.3.579.2. 1259 1991 Unknown [id number] 2.16.840.1.812034.3.579.2. 1259 1991 Unknown [id number] 2.16.840.1.271403.3.579.2. 1259 1991 Unknown [id number] 2.16.840.1.325299.3.579.2. 1259 1991 Unknown [id number] 2.16.840.1.077927.3.579.2. 1259 1991 Unknown [id number] 2.16.840.1.572629.3.579.2. 1259 1991 Unknown [id number] 2.16.840.1.087811.3.579.2. 1259 1959 Private Health Insurance [id number] Self-pay [id number] 1958 Unknown [id number] Self-pay Self Pay [id number] Social History Date Type Detail Facility Start: 01-05-2022 End: 06-17-2024 Tobacco smoking status INIS Smoker (finding) [facility] Start: 1990 Sex Assigned At Female F [facility] Start: 01-03-2023 Tobacco smoking stat [facility] Never smoked tobacco (finding) [facility] Start: 03-09-2024 Sex Assigned At N [facility] [id number] Other Start: 10-06-2010 Tobacco smoking stat [facility] Smokes tobacco daily [facility] Start: 10-06-2010 End: 05-21-2021 History of tobacco use Cigarette Smoker [facility] Start: 03-09-2024 Tobacco use and exposure Smokeless tobacco non-user [facility] Start: 06-29-2024 End: 11-02-2024 Alcoholic beverage intake Ex-drinker (finding) [facility] Start: 03-09-2024 History of Social function [facility] Start: 04-13-2023 Education 13 [facility] Start: 04-13-2023 Alcohol Comment Alcohol: 1 or 2 drinks on typical day/monthly or less. Caffeine: 1 bottle pop daily; 2-3 cups/day coffee [facility] Start: 1990 Sex assigned at Not on file [facility] Start: 08-19-2024 [facility] Start: 10-26-2024 Tobacco smoking stat [facility] Ex-smoker (finding) [facility] Start: 10-26-2024 Sex Female (finding) [facility] Clinical Notes 05-14-2020 to 11-02-2024 Sylvia Romero, FANG - 11/02/2024 10:40 AM Shaunnadina Dione, WASHHOUSE WORKER - 10/01/2024 11:00 AM Kalie Stoll, WASHHOUSE WORKER - 07/19/2024 1:10 PM EDTChristine Jemalcapri, WASHHOUSE WORKER - 06/29/2024 1:40 PM EDT Note Date & Type Note Facility 11-02-2024 History of Presen t illness Narrative Reason for Appointment: Patient ID: Breana John is a 33 y.o. female who presents for Routine Visit Orders Placed This Encounter Procedures POCT urinalysis dipstick manually resulted Follow Up: Patient is to return to office in 2 week for routine OB appointment. MEDICATIONS Current Outpatient Medications Medication Instructions ondansetron ODT (ZOFRAN-ODT) 4 mg, Oral, Every 6 hours PRN Vit-Fe Fumarate-FA ( Vitamins) 28-0.8 MG tablet 1 tablet, Oral, Daily ALLERGIES No Known Allergies PROBLEMS Active Ambulatory Problems Diagnosis Date Noted Dysmenorrhea 03/11/2023 Menorrhagia with irregular cycle 03/11/2023 Missed menses 03/11/2023 Nausea and vomiting 03/11/2023 Pain in female genitalia on intercourse 03/11/2023 Pain in pelvis 03/11/2023 Scar of skin 03/11/2023 Anovulation 07/19/2024 confirmed by positive blood test 09/09/2024 Resolved Ambulatory Problems Diagnosis Date Noted No [...] Last attempt to quit: 05/21/2021 Years since quittin.4 Smokeless tobacco: Never Vaping Use Vaping status: [...] SYSTEMS Review of Systems: Review of Systems OBJECTIVE Objective: OBGyn Exam Vitals: Estimated body mass index is 23.91 kg/m as calculated from the following: Height as of 03/09/24: 5' 3 . Weight as of this encounter: 135 lb. BP: 116/68 Patient's last menstrual period was 08/05/2024. ASSESSMENT & PLAN ICD-10-CM 1. 12 weeks gestation of Z3A.12 POCT urinalysis dipstick manually resulted 2. First trimester Z34.91 POCT urinalysis dipstick manually resulted Return OB: Patient presents today for a routine obstetrics appointment. Patient is currently 12w5d . Patient states she is doing well but has complaints of being tired due to current . Patient has verbalizes frequent movement. Orders Placed This Encounter Procedures POCT urinalysis dipstick manually resulted Follow Up: Patient is to return to office in 4week for routine OB appointment. Documented by FANG Jackson on behalf of: Dominic Hester DO documented in this encounter [facility] 10-26-2024 Radiology Diagnostic study note [facility] [place] [address] [place], [place] [id number] Ultrasound Report Signed Patient: Breana John MR#: [id number] : 1990 Acct:[id number] Age/Sex: 33 / F ADM Date: 5 Loc: ER Room: Type: [facility] ER Attending Dr: Ordering Provider: Ale Fragoso APRN Date of Service: 10/26/24 US/US renal RT: right flank pain Copies to: Ale Fragoso APRN~ Right Renal Ultrasound HISTORY: Right flank pain. COMPARISON: None RIGHT kidney measures 11.8 cm. Left kidney not assessed. Hydronephrosis: No right hydronephrosis RENAL STONE: No shadowing renal calculus is seen. RENAL LESIONS: No renal lesion identified. URINARY BLADDER: Left ureteral jet identified. Right ureteral jet not seen. Minimal urinary bladder distention. REPRODUCTIVE STRUCTURES Not assessed incidental shadowing gallstone US/US renal RT IMPRESSION : No right hydronephrosis. Impression dictated by: Tanner Burleson M.D.10/26/2024 11:46 AM Dictation Location: [facility] Tech: Karmen Yamil Transcribed By: [facility] 10/26/24 1146 Dictated By: Tanner Burleson DO 10/26/24 1139 Signed By: 10/26/24 1146 [facility] 10-26-2024 Hospital Discharg e instructions Additional Instructions Rest. Push fluids. Take [id number] Tylenol as needed for any pain or discomfort. Follow-up with Dr. Hester with [facility] in the next 2 to 3 days. Follow-up with primary care provider in the next 2 to 5 days. Return here if symptoms persist or worsen. [facility] Work Phone: 10-01-2024 History of Presen t illness Narrative Reason for Appointment: Patient ID: Breana John is a 33 y.o. female who presents for Amenorrhea Patient presents today for a Nurse OB Intake appointment. Patient is 8w1d with a Estimated Date of Delivery: 05/12/25 OB History Para Term AB Living 5 3 1 3 SAB IAB Ectopic Multiple Live Births 1 # Outcome Date GA Lbr Ta/2nd Weight Sex Type Anes PTL Lv 5 Current 4 Para 10/23/10 9 lb 4 oz M CS-LTranv HOWIE 3 Para 05/16/17 7 lb M CS-LTranv HOWIE 2 Para 10/02/15 7 lb 7 oz M CS-LTranv HOWIE 1 SAB Current Medications: has a current medication list which includes the following prescription(s): ondansetron odt, vitamins, and progesterone. Medical History: Active Ambulatory Problems Diagnosis Date Noted Dysmenorrhea 03/11/2023 Menorrhagia with irregular cycle 03/11/2023 Missed menses 03/11/2023 Nausea and vomiting 03/11/2023 Pain in female genitalia on intercourse 03/11/2023 Pain in pelvis 03/11/2023 Scar of skin 03/11/2023 Anovulation 07/19/2024 confirmed by positive blood test 09/09/2024 Resolved Ambulatory Problems Diagnosis Date Noted No Resolved Ambulatory Problems Past Medical History: Diagnosis Date Anxiety Asthma (CMS/HCC) Dyspareunia in female Endometriosis Folliculitis Hematuria Miscarriage PID (acute pelvic inflammatory disease) Trichomoniasis 2012 Family History Problem Relation Name Age of Onset Diabetes Mother Patricia case borderline Other (Respiratory issues) Mother Patricia case Asthma Mother Patricia case Bipolar disorder Father Melanoma Father Bipolar disorder Sister Bipolar disorder Brother Hypertension Maternal Grandmother Corin case Diabetes Maternal Grandmother Corin case Lung cancer Maternal Grandfather Throat cancer Maternal Grandfather Bipolar disorder Other Maternal uncle No Known Problems Son (3) Social History Tobacco Use Smoking status: Every Day Current packs/day: 0.00 Types: Cigarettes Start date: 10/06/2010 Last attempt to quit: 05/21/2021 Years since quittin.3 Smokeless tobacco: Never Vaping Use Vaping status: Every Day Substance Use Topics Alcohol use: Not Currently Comment: Alcohol: 1 or 2 drinks on typical day/monthly or less. Caffeine: 1 bottle pop daily; 2-3 cups/day coffee Drug use: Never Past Surgical History: Procedure Laterality Date SECTION, LOW TRANSVERSE x3 : 10/23/2010, 10/02/2015, 05/16/2017 DILATION AND CURETTAGE OF UTERUS EXPLORATORY LAPAROTOMY 02/19/2021 Dr. Hester LAPAROSCOPY DIAGNOSTIC / BIOPSY / ASPIRATION / LYSIS 03/05/2024 OTHER SURGICAL HISTORY age 9- kelsea removed from abdomen PAP SMEAR 11/14/2020 Normal No Known Allergies Vitals: Estimated body mass index is 22.11 kg/m as calculated from the following: Height as of 24: 5' 3 . Weight as of this encounter: 124 lb 12.8 oz. BP: 120/70 Patient's last menstrual period was 08/05/2024. Assessment/Plan Diagnoses and all orders for this visit: Missed menses - Type and screen; Future - ABO/Rh; Future - CBC and differential - Hemoglobin A1c - RPR - Rubella antibody, IgG - Hepatitis B surface antigen - Hepatitis C antibody - HIV-1 and HIV-2 antibodies - Urine culture - POCT , urine manually resulted - POCT urinalysis dipstick manually resulted , unspecified gestational age - Type and screen; Future - ABO/Rh; Future - CBC and differential - Hemoglobin A1c - RPR - Rubella antibody, IgG - Hepatitis B surface antigen - Hepatitis C antibody - HIV-1 and HIV-2 antibodies - Rapid drug screen, urine; Future Encounter for supervision of normal first in first trimester - Rapid drug screen, urine; Future Nurse Note: OB Intake: Patient presents today for first OB visit. Patients history has been reviewed in great detail including any potential risks. Patient signed consent forms and patient desires testing in both trimesters. Patient currently has no complaints and has been advised to drink 6-8 glasses of water a day, eat no raw or undercooked meat, and stay away from [facility]. Patient has also been advised to not change litter boxes and eat 6 small meals a day. Patient has been consulted regarding the do's and don'ts of . Patient was given labs and all questions and concerns were answered. Follow Up: Patient is to return in 4 weeks for routine OB appointment. Follow Up: Patient is to have labs drawn at directed and return to office for initial OB appointment with provider. Patient may call office as needed with any concerns or questions. Nurse Visit Completed by: Archana Parham LPN documented in this encounter [facility] 07-19-2024 History of Presen t illness Narrative [...] nursing note reviewed. Exam conducted with a unarmed security officer present. Vitals: Estimated body mass index is [...] Dominic Hester DO documented in this encounter [facility] 06-29-2024 History of Presen t illness Narrative Reason for Appointment: Patient ID: Breana John is a 33 y.o. female who presents for Pelvic Pain Patient presents today for Acute Visit. MEDICATIONS Current Outpatient Medications Medication Instructions ibuprofen [...] SYSTEMS Review of Systems: Review of Systems Constitutional: Negative. HENT: Negative. Eyes: Negative. Respiratory: Negative. Cardiovascular: Negative. Gastrointestinal: Negative. Genitourinary: Positive for pelvic pain. Musculoskeletal: Negative. Skin: Negative. Neurological: Negative. All other systems reviewed and are negative. Hematological: Negative. Endocrine: Negative. Allergic/Immunologic: Negative. OBJECTIVE Objective: Physical Exam Constitutional: Appearance: Normal appearance. She is well-developed. Genitourinary: Vulva normal. Cardiovascular: Rate and Rhythm: Normal rate and [...] nursing note reviewed. Exam conducted with a unarmed security officer present. Vitals: Estimated body mass index is 20.73 kg/m as calculated from the following: Height as of 24: 5' 3 . Weight as of this encounter: 117 lb. BP: 108/66 No LMP recorded. ASSESSMENT & PLAN ICD-10-CM 1. Pelvic pain in female R10.2 POCT urinalysis dipstick manually resulted POCT , urine manually resulted SURESWAB(R) ADVANCED VAGINITIS PLUS, TMA Neisseria gonorrhea DNA probe, direct CHLAMYDIA TRACHOMATIS (GENITO/STI) US PELVIS-TRANSVAG IF INDICATED Pt presents with pelvic pain, pt underwent a dx lap and endometriosis noted, cultures obtained ua showed trace blood, neg preg test. Discussed options with pt in detail. Pt desires fertility- will return for fertility visit. Documented by Christine Roth LPN on behalf of: Dominic Hester DO documented in this encounter [facility] 04-07-2023 Evaluation note Encounter Date Diagnosis Assessment [...] right ear, unspecified type (ICD-10 - H60.501) [employer] Other 04-14-2023 NoteOPERATIVE NOTE OPERATION DATE: 01/17/2023 PROCEDURE: Suction D [...] products of conception were removed using an 8-Korean suction curette. Excellent hemostasis was noted. The patient tolerated the procedure well. Sponge, lap, and needle counts were correct x 2. All instruments were then removed from the patient's vagina. The patient was taken to the Recovery Room in stable condition. ??[id number] NoteOPERATIVE NOTE OPERATION DATE: 07/29/2022 PROCEDURE: Diagnostic laparoscopy. PREOPERATIVE DIAGNOSIS: Pelvic pain, dyspareunia, dysmenorrhea. POSTOPERATIVE DIAGNOSIS: Pelvic pain, dyspareunia, dysmenorrhea including significant endometriosis of the posterior cul-de-sac, as well as significant adhesions of the uterus to the anterior abdominal wall all the way to the fundal region. ANESTHESIA: General. SURGEON: Dominic Hester D.O. EYEGLASS MAKER: ADAN Flores URINE OUTPUT: Yellow and clear. [...] was taken to Recovery Room in stable condition.[facility] [id number] Note Microbiology PROCEDURE: Cervical Culture [R1] SOURCE: [...] Locations R1: This test was performed at: [facility], [address] [place] [address], [id number] , [place], FeiwllCleveland Clinic Hillcrest HospitalComment on above:Performed By: #### [id number] ####[facility] [id number] [place], [place] [id number] NoteCall received from /s, bladder not full. Conway catheter education provided to patient, agrees to insertion at this time.[facility] HospitalEvaluation noteNo assessment information availableWooster Community Hospital Work Phone: Evaluation note* Diagnosis Female infertility Female infertility of unspecified origin Anovulation Female infertility associated with anovulation documented in this encounter [facility]* Diagnosis Pelvic pain in female Unspecified symptom associated with female genital organs documented in this encounter [facility]* Diagnosis Missed menses , unspecified gestational age Encounter for supervision of normal first in first trimester documented in this encounter [facility] Healthcare[facility]* Diagnosis 12 weeks gestation of First trimester state, incidental documented in this encounter [facility] HealthcareHospital Discharge instructions Additional Instructions Keep that area clean and dry Avoid putting any adhesives to area affected Take antibiotic as instructed until gone Clean with 9 deodorized soap Follow with your surgeon on Friday Return here if any problems persist or worsen including fever, chills or any other concernsWooster Community Hospital Work Phone: Hospital Discharge instructions Additional Instructions It is important you follow-up with your CUSHION MAT MAKER call for appointment. Please return here if you develop any fevers, chills, shortness of breath, numbness, tingling, unilateral weakness or any other concernsWooster Community Hospital Work Phone: Summary Purpose Family History No Family History Records FoundNo Family History Records FoundNo Family History Records FoundNo Family History Records Found Advance Directives No Advanced Directives Records Found Advance Directive Response Recorded Date/ Time Advance Directives No June 1:52pm Advance Directive Response Recorded Date/ Time Advance Directives No June 12:52pm Chief Complaint and Reason for Visit Chief Complaint R10.2 Chief Complaint R10.2 Surgical site issues Chief Complaint abd pains Chief Complaint abd pains R10.30 R10.2 Chief Complaint R10.2 n92.6 Chief Complaint n92.6 abd pain Chief Complaint Admit Date 13 wks iup back pain October 26, 2024 9:35am Additional Source Comments INFORMATION SOURCE (unrecogn ized section and content) DATE CREATED AUTHOR 04/20/2021 [facility] DATE CREATED AUTHOR AUTHOR'S ORGANIZ ATION 01/23/2023 [facility] DATE CREATED AUTHOR AUTHOR'S ORGANIZ ATION 10/28/2024 [facility] DATE CREATED AUTHOR AUTHOR'S ORGANIZ ATION 11/03/2024 [facility] EPIC Care Teams (unrecognized sec tion and content) Team Status: Inactive Member Role Status Dates Naomy Garcia MANAGER SOCIAL-C Primary Care Provider Active Dominic Hester Attending Provider Active Team Status: Active Member Role Status Dates Naomy Garcia MANAGER SOCIAL-C Primary Care Provider Active Team Status: Inactive Member Role Status Dates Naomy Garcia MANAGER SOCIAL-C Primary Care Provider Active Monika Camarillo APRN Emergency Provider Active Team Status: Inactive Member Role Status Dates Naomy Garcia MANAGER SOCIAL-C Primary Care Provider Active Sylvia Romero PA-C Attending Provider Active Team Status: Inactive Member Role Status Dates Naomy Garcia MANAGER SOCIAL-C Primary Care Provider Active S tart: February 09, 2024 End: February 09, 2024 Dominic Hester Attending Provider Active Start: Stephanie solomon 2023 End: February 09, 2024 Team Status: Active Member Role Status Dates PHYSICIAN NO FAMILY Primary Care Provider Active Team Status: Inactive Member Role Status Dates Naomy Garcia MANAGER SOCIAL-C Primary Care Provider Active S tart: February [...] June 17, 2024 End: June 17, 2024 Muleser Relationship Specialty Start Date End Date Sylvia Romero PA [address] [place] [address] [place] [address] PCP - [facility] 07/06/24 Muleser Relationship Specialty Start Date End Date Sylvia Romero PA [address] [place] [address] [place] [address] PCP - [facility] 07/06/24 Muleser Relationship Specialty Start Date End Date Sylvia Romero PA [address] [place] [address] [place] [address] PCP - [facility] 07/06/24 Team Status: Inactive Member Role Status Dates PHYSICIAN NO FAMILY Primary Care Provider Active Start: October 26, 2024 End: October 26, 2024 Ale Fragoso APRN Emergency Provider Active S tart: October 26, 2024 End: October 26, 2024 Muleser Relationship Specialty Start Date End Date Sylvia Romero PA [address] [place] [address] [place] [address] PCP - [facility] 07/06/24 Muleser Relationship Specialty Start Date End Date Sylvia Romero PA [address] [place] [address] [place] [address] PCP - [facility] 07/06/24 Goals (unrecognized section and content) Goals [...] ed section and content) Reason Comments Infertility Reason Comments Pelvic Pain Reason Comments Amenorrhea Reason Comments Routine Visit FOR RECORDS PERTAINING TO PATIENTS WHO ARE [...] BE BASED ON THE PRIMARY CLINICAL RECORDS. [facility] [employer] provides no warranty or guarantee of the accuracy or completeness of information in this document.
[2024-12-06 12:09] LABS: Age Gdln ACOG Testing Note (.); HPV Aptima Negative (Negative); IGP, Aptima HPV, rfx 16/18,45 Note (.)
== END 2024-11-30 19:46 | disposition home or self-care (01) ==
LOC: LAB 19:45
PROVIDERS: Visit Provider Physician Assistant
DX: Z01.419 Encounter for gynecological examination (general) (routine) without abnormal findings (principal)
CPT/HCPCS: 87624; 88175

== ENCOUNTER 2025-02-17 13:15 | Outpatient (OUT) | payer OTHER, SELFPAY ==
[2025-02-17 14:31] LABS: Basophils Percent Auto 0.2 % (0.2-2.0); Eosinophils Absolute Auto 0.2 10^3/uL (0.0-0.7); Eosinophils Percent Auto 2.8 % (0.9-7.0); Hematocrit 30.5 % (36.0-48.0); Hemoglobin 10.5 g/dL (12.0-16.0); Immature Granulocytes Abs Auto 0.02 10^3/uL (0.00-0.03); Immature Granulocytes Pct Auto 0.3 % (0.0-0.5); Lymphocytes Absolute Auto 0.9 10^3/uL (1.2-3.8); Lymphocytes Percent Auto 15.7 % (20.5-60.0); Mean Corpuscular HGB Conc 34.4 g/dL (29.9-35.2); Mean Corpuscular Hemoglobin 33.2 pg (26.7-34.0); Mean Corpuscular Volume 96.5 fL (81.0-99.0); Mean Platelet Volume 9.6 fL (9.5-13.5); Monocytes Absolute Auto 0.4 10^3/uL (0.3-0.8); Monocytes Percent Auto 7.7 % (1.7-12.0); Neutrophils Absolute Auto 4.2 10^3/uL (1.4-6.5); Neutrophils Percent Auto 73.3 % (43.0-75.0); Platelet Count 167 10^3/uL (150-450); Red Blood Count 3.16 10^6/uL (4.20-5.40); Red Cell Distribution Width 12.9 % (11.0-15.0); White Blood Count 5.7 10^3/uL (4.0-11.0)
[2025-02-17 14:55] LABS: Glucose 1 Hour 109 mg/dL (<130)
== END 2025-02-17 13:16 | disposition home or self-care (01) ==
LOC: LAB 13:17
PROVIDERS: Visit Provider Nurse Practitioner Family
DX: Z13.1 Encounter for screening for diabetes mellitus (principal)
CPT/HCPCS: 36415; 82950; 85025

== ENCOUNTER 2025-04-06 13:37 | Outpatient (OUT) | payer OTHER, SELFPAY ==
--- OUTSIDE RECORDS SUMMARY | 2024-10-01 09:03 | XMS_ITS | Continuity of Care Document ---
Author Organization [facility] Address [address] [place] [address] Phone Care Team Providers Care Rn Staff Name Role Phone Jagdeep CHAVIRA, Emilee Unavailable Unavailable Allergies, Adverse Reactions, Alerts Substance Reaction Status Criticality No Known Allergies Active No Inform ation Procedures Procedure Date URINE TEST URINALYSIS NONAUTO W/O SCOPE RAPID STI Chalm/Gonorr/Trich OFFICE/OUTPATIENT VISIT, EST OFFICE/OUTPATIENT VISIT, NEW Bp scrn perf rec interval DIAST BP < 80 MM HG SYST BP < 130 MM HG MED LIST DOCD IN [facility] RVW MEDS BY RX/DR IN [facility] Pt inelig neg scrn depres RAPID STI Chalm/Gonorr/Trich Advance Directives Directive Yes / No Effective Date File Name No Information Encounters Encounter Description Practice Location Reason(s) For Visit Diagnoses Date Provider Providers Copied on Encounter [facility], [address] [place] [address], [id number], [place] tel:[phone] [facility] Screening for cervical cancerScreening for cervical cancer 4 Jagdeep Hebert. [address] [place] [address], [id number] , [place]. tel:[phone] OFFICE/OUTPAT IENT VISIT, EST [facility], [address] [place] [address], [id number], [place] tel:[phone] ECJFS vaginal discharge/ itching (chief complaint) Encounter for screening for infections with a predominantly sexual mode of transmissionOther problems related to lifestyleVaginal discharge 4 Jagdeep Hebert. [address] [place], [place], [id number] , [place]. tel:[phone] OFFICE/OUTPAT IENT VISIT, [facility], [address] [place], [place], [id number], [place] tel:[phone] ECJFS possible exposure (chief complaint) Body mass index [BMI] 21.0-21.9, adultEncounter for screening for infections with a predominantly sexual mode of transmissionOther problems related to lifestyleBody mass index [BMI] 22.0-22.9, adult 3 Jagdeep Hebert. [address] [place] [address], [id number] , [place]. tel:[phone] Family History Family Member Type Diagnosis Age At Onset No Information Payers Payer name Insurance type Covered republican ID Authoriza tion(s) UHC Medicaid CFC 0223 [id number] Medicaid Wrap - [facility] [place] [id number] Social History Type Description Quantity Date Captured Comments Alcohol Use Details Unknown Caffeine Use Details Unknown Tobacco Use Status No Information Smoking Status No Information Sex Female Sexual Orientation Straight or heterosexual Aug Gender Identity Female Chief Complaint And Reason For Visit No Information Reason For Referral Reason For Referral No Information Plan Of Treatment Date Type Action Status Goal Hepatitis C screening. Due o n due Goal Influenza vaccine. Due on due Goal HPV. Due on due Goal Depression screening. Due on due Goal Tdap Vaccine. Due on 2023 due Goal PRAPARE ASSESSMENT. Due on D due Goal RLP. Due on due Goal Unhealthy drug use screening . Due on due Goal Tdap. Due on due Goal PRAPARE ASSESSMENT. Due on due Goal Depression screening. Due on due Goal Influenza vaccine. Due on due Goal Tdap Vaccine. Due on 2023 due Goal Unhealthy drug use screening . Due on due Goal HPV. Due on due Goal RLP. Due on due Goal Tdap. Due on due Goal Hepatitis C screening. Due o n due Goal HPV. Due on due Goal Tdap Vaccine. Due on 2022 due Goal Depression screening. Due on due Goal PRAPARE ASSESSMENT. Due on D due Goal Hep A. Due on du e Goal Unhealthy drug use screening . Due on due Goal Influenza vaccine. Due on due Goal Hepatitis C screening. Due o n due Goal RLP. Due on due Goal Tdap. Due on due Goal Dietary education for weight gain completed History Of Present Illness Encounter Date Complaint History Of Prese nt Illness vaginal discharge/itching Presen tly the client is experiencing vaginal itching, vaginal irritation and vaginal discharge. Relevant factors include tampon use butclient denies condom use, contraceptive use, diabetes mellitus, douching or new partner.The client has no history of bacterial vaginosis. Her symptoms are aggravated by intercourse. Her symptoms are not relieved by anything. Her symptoms are associated with vaginal burning, dysuria and vulvar itching but she denies fever, genital lesions, genital rash or genital ulcers. Additional information: Freddy CHAVIRA. possible exposure Patient here f or possible exposure. Patient is back old partner and is concerned with possible std. Patient would like testing. In house std ok. Also ok with send out if needed. Patient does not note anything abnormal. This is more of a precaution. Up to date on annual exam. No other issues at this time.Aranza Aragon.Partners- maleMultiple Partners past 12 months- noPrevious STI infection- chlamydia 2-3 years agoNew Partner since last checked- no but was on a break from current partnerPrevious IV drug use- deniesKnown exposures- unknownIncarceration history- deniesPrevious intercourse for drugs or money- deniesPartner having symptoms- nonePartner with poorly known past history- yesSpecific concerns today: on menses currently so discomfort assumed to be related to this. Pt notes recently getting back with her ex partner about a week ago. She has not had any partners while they were apart but unsure if he has. She notes last night that his semen tasted differently and she was nervous this may mean he has an STI. Explained this could be related to his diet and is not necessarily mean an STI. Pt knows it might be too soon to detect an STI this soon after concerned exposure. 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 She does not have a primary nursing home. Discuss establishing care here and pt agreeable. If pt negative today, would plan to repeat STI cultures in 2 weeks with bloodwork. Appt scheduled.Freddy CHAVIRA Functional Status Date Functional Assessmen t No Information Instructions Date Instruction Additional Infor [place] Urine nega tiveUA dip negativeRapid STI negativeIn light of these results with presenting symptoms, will treat for likelihood of BV. Follow up PRN Related to Vaginal discharge Follow up 2 weeks to establish care, labs and poss repeat cultures. Related to Encounter for screening for infections with a predominantly sexual mode of transmission Dietary education for weight gai n Related to Body mass index [BMI] 21.0-21.9, adult Assessments Type Assessment Date assessment Screening for cervical cancer De Patient Care Teams Name Effective Dates (start - stop) Status Members No Information
--- OUTSIDE RECORDS SUMMARY | 2025-03-23 14:30 | XMS_ITS | Encounter Summary ---
Author Organization [facility] Address [address] [place] [address] Care Team Providers Care Cable Splicer Name Role Phone Sylvia Romero Unavailable Reason for Visit * Reason Comments Routine Visit Encounter Details Date Type Department Care Team (Latest Contact Info) Description 03/23/2025 2:30 PM EDT Routine [facility] [address] [facility] [place] [address] Dominic Hester, DO [address] [facility] [address], [place] [id number] Third trimester ([facility]); 32 weeks gestation of ([facility]); size inconsistent with dates ([facility]) Social History Tobacco Use Types Packs/Day Years Used Date Smoking Tobacco: Every Day Cigarettes Started: 10/06/2010; Last attempted to quit: 05/21/2021 Smokeless Tobacco: Never Alcohol Use Standard Drinks/Week Comments Not Currently 0 (1 standard drink = 0.6 oz pure alcohol) Alcohol: 1 or 2 drinks on typical day/monthly or less. Caffeine: 1 bottle pop daily; 2-3 cups/day coffee PHQ-2 Answer Date Recorded Patient Health Questionnaire-2 Score 0 03/24/2025 Education Answer Date Recorded What is the highest level of school you have completed or the highest degree you have received? High school graduate 04/13/2023 Estimated Date of Delivery Comme nts Yes 05/12/2025 Based on last me nstrual period of 08/05/2024 Sex and Gender Information Value Date Recorded Sex Assigned at Not on file Legal Sex Female 6:35 PM EDT Gender Identity Not on file Sexual Orientation Not on file documented as of this encounter Last Filed Vital Signs Vital Sign Reading Time Taken Comments Blood Pressure 112/68 03/23/2025 2:44 PM EDT Pulse - - Temperature - - Respiratory Rate - - Oxygen Saturation - - Inhaled Oxygen Concentration - - Weight 73.5 kg (162 lb) 03/23/2025 2:44 PM EDT Height - - Body Mass Index 28.7 03/09/2024 2:55 PM EDT documented in this encounter Progress Notes * Christine Roth LPN - 03/23/2025 2:30 PM EDT Reason for Appointment: Patient ID: Vira John is a 34 y.o. female who presents for Routine Visit Patient presents today for Return OB appointment. MEDICATIONS Current Outpatient Medications Medication Instructions iron polysaccharides (PROFE) 391.3 mg, Oral, Daily ondansetron ODT (ZOFRAN-ODT) 4 mg, Oral, Every [...] Anovulation 07/19/2024 confirmed by positive blood test ([facility] 09/09/2024 20 weeks gestation of ([facility]) 12/28/2024 Second trimester ([facility]) 12/28/2024 Resolved Ambulatory Problems Diagnosis Date Noted No Resolved Ambulatory Problems Past Medical History: Diagnosis Date Anxiety Asthma ([facility]) Dyspareunia in female Endometriosis Folliculitis Hematuria Miscarriage ([facility]) PID (acute pelvic inflammatory disease) Trichomoniasis 2013 HISTORY PAST MEDICAL HISTORY SOCIAL HISTORY Past Medical History: Diagnosis Date Anxiety Asthma ([facility]) Dysmenorrhea Dyspareunia in female Endometriosis Folliculitis Hematuria Miscarriage ([facility]) PID (acute pelvic inflammatory disease) Trichomoniasis 2012 Social History Tobacco Use Smoking status: Every Day Current packs/day: 0.00 Types: Cigarettes Start date: 10/06/2010 Last attempt to quit: 05/21/2021 Years since quittin.8 Smokeless tobacco: Never Vaping Use Vaping status: [...] Respiratory: Negative. Cardiovascular: Negative. Gastrointestinal: Negative. Genitourinary: Negative. Musculoskeletal: Negative. Skin: Negative. Neurological: Negative. All [...] nursing note reviewed. Exam conducted with a channel opener present. Vitals: Estimated body mass index is 28.7 kg/m² as calculated from the following: Height as of 24: 5' 3 . Weight as of this encounter: 162 lb. BP: 112/68 Patient's last menstrual period was 08/05/2024. ASSESSMENT & PLAN ICD-10-CM 1. Third trimester ([facility]) Z34.93 POCT urinalysis dipstick manually resulted 2. 32 weeks gestation of ([facility]) Z3A.32 Return OB: Patient presents today for a routine obstetrics appointment. Patient is currently 32w6d . Patient states she is doing well but has complaints of being tired due to current . Patient has verbalizes frequent movement. labor precautions was discussed/given and patient was instructed to perform kick counts three times a day. Orders Placed This Encounter Procedures POCT urinalysis dipstick manually resulted Follow Up: Patient is to return to office in 2 week for routine OB appointment. Documented by Christine Roth LPN on behalf of: Dominic Hester DO documented in this encounter Plan of Treatment Upcoming Encounters Date Type Department Care Team (Late st Contact Info) Description 04/06/2025 2:50 PM EDT Routine [facility] [address] [facility] [place] [id number] Sylvia Romero PA [address] [facility] [place] [address] Scheduled Orders Name Type Priority Associated Diagnoses Orde r Schedule US OB follow up transabdominal approach Imaging Routine size inconsistent with dates ([facility]) Expected: 03/23/2025, Expires: 07/23/2025 documented as of this encounter Procedures Procedure Name Priority Date/Time Associated Diagnosis Comments POCT URINALYSIS DIPSTICK Routine 03/23/2025 2:44 PM EDT Third trimester ([facility]) documented in this encounter Results * POCT urinalysis dipstick manually resulted (03/23/2025 2:44 PM EDT) Color, UA Yellow Clarity, UA Clear Glucose, UA Negative Negative - 2000(110) ++++ mg/dL Bilirubin, UA Negative Negative - 4(70) +++ mg/dL Ketones, UA Positive Negative - 160(16) ++++ mg/dL Comment:15 Spec Grav, UA 1.015 1 - 1.03 Blood, UA Negative Negative - 50 Brent/mcL pH, UA 7.0 5 - 9 Protein, UA Negative Negative - 2000(20) ++++ mg/dL Urobilinogen, UA 0.2 0.2 - 12 mg/dL Leukocytes, UA Negative Negative - 500+++ Kae/mcL Nitrite, UA Negative Negative - Positive Urine 03/23/2025 2:44 PM EDT Dominic Hester DO POINT OF CARE TEST ENTER/EDIT OR DERABLES Final Result documented in this encounter Visit Diagnoses Diagnosis Third trimester ([facility]) state, incidental 32 weeks gestation of ([facility]) size inconsistent with dates ([facility]) documented in this encounter Care Teams Cable Splicer Relationship Specialty Start Date End Date Sylvia Romero PA [address] [place] [address] [place] [address] PCP - [facility] 07/06/24 documented as of this encounter
--- OUTSIDE RECORDS SUMMARY | 2025-04-06 13:39 | XMS_ITS | Encounter Summary ---
Author Organization [facility] Address [address] [place] [address] Care Team Providers Care Scouring Train Operator Chief Name Role Phone HeatherSylvia Unavailable Encounter Details Date Type Department Care Team (Late st Contact Info) Description 02/21/2025 Results Follow-Up [facility] [address] [facility] [place] [address] Zainab Mcwilliams LPN [address] [place] [address] Social History Tobacco Use Types Packs/Day Years Used Date Smoking Tobacco: Every Day Cigarettes Started: 10/06/2010; Last attempted to quit: 05/21/2021 Smokeless Tobacco: Never Alcohol Use Standard Drinks/Week Comments Not Currently 0 (1 standard drink = 0.6 oz pure alcohol) Alcohol: 1 or 2 drinks on typical day/monthly or less. Caffeine: 1 bottle pop daily; 2-3 cups/day coffee Education Answer Date Recorded What is the [...] on file documented as of this encounter Miscellaneous Notes * Result Encounter Note - Zainab Mcwilliams LPN - 02/21/2025 3:03 PM EDT Pt notified and medication called in documented in this encounter Plan of Treatment Upcoming Encounters Date Type Department Care Team (Late st Contact Info) Description 04/06/2025 2:50 PM EDT [facility] [address] [facility] [place] [address] Sylvia Romero PA [address] [place] [address] documented as of this encounter Visit Diagnoses Not on filedocumented in this encounter Care Teams Scouring Train Operator Chief Relationship Specialty Start Date End Date Sylvia Romero PA [address] [place] [address] PCP - [facility] AUTOMATIC DOOR MECHANIC 07/06/24 documented as of this encounter
--- OUTSIDE RECORDS SUMMARY | 2025-04-06 13:39 | XMS_ITS | Encounter Summary ---
Author Organization [facility] Address [address] [place] [address] Care Team Providers Care Ocean Fishing Guide Name Role Phone Sylvia Romero Unavailable Sylvia Romero Unavailable Encounter Details Date Type Department Care Team (Late st Contact Info) Description 05/14/2023 Abstract [facility] [address] [place] [address] Sylvia Romero PA [address] [place] [address] Social History Tobacco Use Types Packs/Day Years Used Date Smoking Tobacco: Former Cigarettes Alcohol Use Standard Drinks/Week Comments Yes 0 (1 standard drink = 0.6 oz pure alcohol) Alcohol: 1 or 2 drinks on typical day/monthly or less. Caffeine: 1 bottle pop daily; 2-3 cups/day coffee Education Answer Date Recorded What is the highest level of school you have completed or the highest degree you have received? High school graduate 04/13/2023 Comments No Sex and Gender Information Value Date Recorded Sex Assigned at Not on file Legal Sex Female 6:35 PM EDT Gender Identity Not on file Sexual Orientation Not on file COVID-19 Exposure Response Date Recorded In the last 10 days, have yo u been in contact with someone who was confirmed or suspected to have Coronavirus/COVID-19? No / Unsure 05/13/2023 11:16 PM EDT documented as of this encounter Plan of Treatment Upcoming Encounters Date Type Department Care Team (Late st Contact Info) Description 04/06/2025 2:50 PM EDT Routine [facility] [address] [place] [address] Sylvia Romero PA [address] [place] [address] documented as of this encounter Visit Diagnoses Not on filedocumented in this encounter Care Teams Ocean Fishing Guide Relationship Specialty Start Date End Date Sylvia Romero PA [address] [place] [address] PCP - [facility] MANAGER FRENCH 01/05/24 4 Sylvia Romero PA [address] [place] [address] PCP - [facility] MANAGER FRENCH 07/06/24 documented as of this encounter
--- OUTSIDE RECORDS SUMMARY | 2025-04-06 13:39 | XMS_ITS | Encounter Summary ---
Author Organization [facility] Address [address] [place] [address] Care Team Providers Care Kaiako Kura Kaupapa Maori Name Role Phone Heather, Sylvia HEADLEY Unavailable Encounter Details Date Type Department Care Team (Late st Contact Info) Description 12/13/2024 Orders Only [facility] [address] [place] [address] [place] [address] Adriana Hartman MA Social History Tobacco Use Types Packs/Day Years [...] on file documented as of this encounter Plan of Treatment Upcoming Encounters Date Type Department Care Team (Late st Contact Info) Description 04/06/2025 2:50 PM EDT Routine [facility] OB [address] [facility] [place] [address] Sylvia Romero PA [address] [facility] [place] [address] documented as of this encounter Procedures Procedure Name Priority Date/Time Associated Diagnosis Comments PAP SMEAR Routine 11/30/2024 12:00 AM EST documented in this encounter Results * Pap Smear (11/30/2024 12:00 AM EST) Swab Cervical swab / Unknown us Sylvia HEADLEY LAB CYTOLOGY ORDERABLES Final Re sult EXTERNAL LAB documented in this encounter Visit Diagnoses Not on filedocumented in this encounter Care Teams Kaiako Kura Ka[place] Maori Relationship Specialty Start Date End Date Sylvia Romero PA [address] [facility] [place] [address] PCP - [facility] MANAGER CUSTOMS 07/06/24 documented as of this encounter
--- OUTSIDE RECORDS SUMMARY | 2025-04-06 13:39 | XMS_ITS | Clinical Summary ---
Author Organization [facility] Healthcare Address [address] [place] [address] Care Team Providers Care Java Front End Web Developer Name Role Phone Sylvia Romero Unavailable Allergies No known active allergies Medications ondansetron ODT (Zofran-ODT) 4 MG disintegrating tabletIndications:P regnancy confirmed by positive blood test ([facility]),Nausea Take 1 tablet (4 mg) by mouth every 6 (six) hours if needed for nausea or vomiting for up to 30 doses 30 tablet 2 4 Active Vit-Fe Fumarate-FA ( Vitamins) 28-0.8 MG tabletIndications:P regnancy confirmed by positive blood test ([facility]) Take 1 tablet by mouth Daily 30 tablet 11 4 09/09/20 25 Active iron polysaccharides (ProFe) 391.3 (180 Fe) MG capsuleIndications: Low iron Take 1 capsule (391.3 mg) by mouth Daily 30 capsule 11 5 02/22/20 26 Active Active Problems Problem Noted Date Diagnosed Date 20 weeks gestation of ([facility]) 2024 Second trimester ([facility]) 12/28/2024 confirmed by positive blood test ([facility]) 09/09/2024 Anovulation 07/19/2024 Dysmenorrhea 03/11/2023 Menorrhagia with irregular cycle 03/11/2023 Missed menses 03/11/2023 Nausea and vomiting 03/11/2023 Pain in female genitalia on intercourse 03/11/20 23 Pain in pelvis 03/11/2023 Scar of skin 03/11/2023 Estimated Date of Delivery Comme nts Yes 05/12/2025 Based on last me nstrual period of 08/05/2024 Encounters Date Type Department Care Team Description 04/05/2025 Travel 03/24/2025 Patient Outreach [facility] [address] [place] [address] Sylvia Villa LPN 03/23/2025 2:30 PM EDT Routine NOM[facility] [address] [place] [address] Dominic Hester DO Third trimester ([facility]); 32 weeks gestation of ([facility]); size inconsistent with dates ([facility]) 03/23/2025 Bamboo flowsheet [facility] [address] [place] [address] Dominic Hester DO 03/23/2025 Travel 03/09/2025 2:30 PM EDT Routine [facility]OM[facility] [address] [place] [address] Sylvia Romero PA Third trimester ([facility]); 30 weeks gestation of ([facility]) 03/09/2025 Bamboo flowsheet NOM[facility] [address] [place] [address] Sylvia Romero PA 03/08/2025 Travel 03/01/2025 Patient Outreach [facility] [address] [place] [address] Sylvia Villa LPN 02/23/2025 2:50 PM EDT Routine [facility] OB [address] [place] [address] [place] [address] Dominic Hester DO Third trimester ([facility]); 28 weeks gestation of ([facility]) 02/23/2025 Bamboo flowsheet [facility] [address] [place] [address] Dominic Hester DO 02/23/2025 Travel 02/21/2025 Results Follow-Up [facility]OM[facility] [address] [place] [address] Zainab Mcwilliams, STEM FRAZER 02/21/[address] [place] [address] Zainab Mcwilliams, STEM FRAZER 02/17/2025 2:30 PM EDT Ancillary Procedure [facility] [address] [place] [address] Encounter for follow-up ultrasound of anatomy ([facility]) 02/17/2025 Clinisync Result Encounter [facility] External Department Unsolicited Amaya Steve NP 02/17/2025 Travel 01/31/2025 2:50 PM EDT Routine [facility]OM[facility] [address] [place] [address] Amaya Steve NP 25 weeks gestation of ([facility]); Second trimester ([facility]); Encounter for follow-up ultrasound of anatomy ([facility]); Diabetes mellitus screening 01/31/2025 Bamboo flowsheet [facility] [address] [place] [address] Amaya Steve NP 01/31/2025 Travel from Last 3 Months Family History Medical History Relation Name Comments Bipolar disorder Brother Bipolar disorder Father Melanoma Father Lung cancer Maternal Grandfather Throat cancer Maternal Grandfather Diabetes Maternal Grandmother Corin case Hypertension Maternal Grandmother Corin case Asthma Mother Patricia case Diabetes Mother Patricia case borderline Respiratory issues Mother Patricia case Bipolar disorder Other Maternal uncle Bipolar disorder Sister No Known Problems Son (3) Relation Name Status Comments Brother Alive patient has 3 b rothers Father Maternal Grandfather Maternal Grandmother Corin case Mother Patricia case Alive Other Maternal uncle Paternal Grandfather Paternal Grandmother Alive Sister Alive patient has 3 s isters Son (3) Alive Social History Tobacco Use Types Packs/Day Years Used Date Smoking Tobacco: Every Day Cigarettes Started: 10/06/2010; Last attempted to quit: 05/21/2021 Smokeless Tobacco: Never Tobacco Cessation:Ready to Q uit: Not Asked; Counseling Given: Not Answered Alcohol Use Standard Drinks/Week Comments Not Currently [...] on file Sexual Orientation Not on file Last Filed Vital Signs Vital Sign Reading Time Taken Comments Blood Pressure 112/68 03/23/2025 2:44 PM EDT Pulse - - Temperature - - Respiratory Rate - - Oxygen Saturation - - Inhaled Oxygen Concentration - - Weight 73.5 kg (162 lb) 03/23/2025 2:44 PM EDT Height 160 cm (5' 3 ) 03/09/2024 2:55 PM EDT Body Mass Index 28.7 03/09/2024 2:55 PM EDT Plan of Treatment Upcoming Encounters Date Type Department Care Team (Late st Contact Info) Description 04/06/2025 2:50 PM EDT Routine [facility] OB [address] [place] [address] Sylvia Romero PA [address] [place], [place] [phone] Health Maintenance Due Date Last Done Comments Influenza Vaccine (#1) 2025 Cervical Cancer Screening 11/30/2025 HPV/Cotest 11/30/2025 05/30/2023, 11/14/2020 Pap Smear 11/30/2025 11/30/2024, 05/30/2023, 02/0 06/2021 Procedures Procedure Name Priority Date/Time Associated Diagnosis Comments POCT URINALYSIS DIPSTICK Routine 03/23/2025 2:44 PM EDT Third trimester ([facility]) POCT URINALYSIS DIPSTICK Routine 03/09/2025 3:02 PM EDT Third trimester ([facility]) POCT URINALYSIS DIPSTICK Routine 02/23/2025 5:25 PM EDT Third trimester ([facility]) US OB LIMITED 1+ FETUSES Routine 02/17/2025 2:51 PM EDT Encounter for follow-up ultrasound of anatomy ([facility]) GLUCOSE 1 HOUR Routine 02/17/2025 2:25 PM EDT ALL CBC WITH AUTO DIFF Routine 02/17/2025 2:25 PM EDT POCT URINALYSIS DIPSTICK Routine 01/31/2025 3:29 PM EDT 25 weeks gestation of ([facility]) Second trimester ([facility]) PAP SMEAR Routine 11/30/2024 12:00 AM EST THINPREP PAP AND HPV MRNA E6/E7 W/RFL HPV 16,18/45 Routine 05/30/2023 10:04 AM EDT Well woman exam with routine gynecological exam from Last 3 Months or Most Recently Relevant to Health Maintenance Results * POCT urinalysis dipstick manually resulted (03/23/2025 2:44 PM EDT) Only the most recent of4 resultswithin the time period is included. Color, UA Yellow Clarity, UA Clear Glucose, [...] - Positive Urine 03/23/2025 2:44 PM EDT us Dominic Hester DO POINT OF CARE TEST ENTER/EDIT OR DERABLES Final Result * US OB limited 1+ fetuses (02/17/2025 2:51 PM EDT) Anatomical Region Laterality Modality Body Ultrasound 02/18/2025 10:2 4 AM EDT Narrative 02/18/2025 10:24 AM EDT EXAM: US OB LIMITED 1+ FETUSES HISTORY: Follow-up anatomy. COMPARISON: Ob ultrasound 12/28/2024. TECHNIQUE: Two-dimensional transabdominal grayscale ultrasound imaging of the pelvis was performed. FINDINGS: Gestation: Single Presentation: Cephalic Cardiac Activity: 148 beats per minute Placental Location: Anterior with no sonographic abnormalities identified. Amniotic Fluid: Appears adequate ANATOMY C-Spine: Unremarkable T-Spine: Unremarkable L-Spine: Unremarkable Sacrum: Unremarkable Nose/Lips: Unremarkable IMPRESSION: 1. Single, live intrauterine gestation 28 weeks, 0 days by LMP. JONN is 05/12/2025. 2. Unremarkable follow-up ultrasound of the spine and nose/lips. Interpreted by: Electronically signed by RENUKA BLACK II, MD, PHD at 18-Feb-2025 10:23:07 AM [facility] Procedure Note Renuka Black MD - 02/18/2025 EXAM: US OB LIMITED 1+ FETUSES HISTORY: Follow-up anatomy. COMPARISON: Ob ultrasound 12/28/2024. TECHNIQUE: Two-dimensional transabdominal grayscale ultrasound imaging ofthe pelvis was performed. FINDINGS: Gestation: Single Presentation: Cephalic Cardiac Activity: 148 beats per minute Placental Location: Anterior with no sonographic abnormalitiesidentified. Amniotic Fluid: Appears adequate ANATOMY C-Spine: Unremarkable T-Spine: Unremarkable L-Spine: Unremarkable Sacrum: Unremarkable Nose/Lips: Unremarkable IMPRESSION: 1. Single, live intrauterine gestation 28 weeks, 0 days by LMP. JONN is05/12/2025. 2. Unremarkable follow-up ultrasound of the spine and nose/lips. Interpreted by: Electronically signed by RENUKA BLACK II, MD, PHD 10:23:07 AM [facility] Amaya Steve BUSINESS TRANSFORMATION ANALYST IMG OB US PROCEDURES Final Re sult * GLUCOSE 1 HOUR (02/17/2025 2:25 PM EDT) GLUCOSE 1 HOUR 109 <130 mg/dL TBH 02/17/2025 2:25 PM EDT 02/17/2025 2:25 PM EDT Narrative [facility] - 02/17/2025 3:12 PM EDT Amaya Steve BUSINESS TRANSFORMATION ANALYST LAB BLOOD ORDERABLES Final Re sult [facility] * (ABNORMAL) ALL CBC WITH AUTO DIFF (02/17/2025 2:25 PM EDT) TB WBC 5.7 4.0 - 11.0 10 3/uL TBH TBH RBC 3.16(L) 4.20 - 5.40 10 6/uL TBH TBH HGB 10.5(L) 12.0 - 16.0 g/dL TBH TBH HCT 30.5(L) 36.0 - 48.0 % TBH TBH MCV 96.5 81.0 - 99.0 fL TBH TBH MCH 33.2 26.7 - 34.0 pg TBH TBH MCHC 34.4 29.9 - 35.2 g/dL TBH TBH RDW 12.9 11.0 - 15.0 % TBH TBH PLT 167 150 - 450 10 3/uL TBH TBH MPV 9.6 9.5 - 13.5 fL TBH NEUTROPHILS PERCENT AUTO 73.3 43.0 - 75.0 % TBH LYMPHOCYTES PERCENT AUTO 15.7(L) 20.5 - 60.0 % TBH MONOCYTES PERCENT AUTO 7.7 1.7 - 12.0 % TBH TBH EO % 2.8 0.9 - 7.0 % TBH BASOPHILS PERCENT AUTO 0.2 0.2 - 2.0 % TBH IMMATURE GRANULOCYTES PCT AUTO 0.3 0.0 - 0.5 % TBH NEUTROPHILS ABSOLUTE AUTO 4.2 1.4 - 6.5 10 3/uL TBH LYMPHOCYTES ABSOLUTE AUTO 0.9(L) 1.2 - 3.8 10 3/uL TBH MONOCYTES ABSOLUTE AUTO 0.4 0.3 - 0.8 10 3/uL TBH TBH EO # 0.2 0.0 - 0.7 10 3/uL TBH BASOPHILS ABSOLUTE AUTO 0.0 0.0 - 0.1 10 3/uL TBH IMMATURE GRANULOCYTES ABS AUTO 0.02 0.00 - 0.03 10 3/uL TBH 02/17/2025 2:25 PM EDT 02/17/2025 2:25 PM EDT Narrative [facility] - 02/17/2025 2:42 PM EDT Amaya Steve BUSINESS TRANSFORMATION ANALYST [facility] Final Result Performing Organization Address [facility]/ZIP Co de Phone Number [facility] * Pap Smear (11/30/2024 12:00 AM EST) Swab Cervical swab / Unknown Sylvia HEADLEY LAB CYTOLOGY ORDERABLES Final Re sult Performing Organization Address [facility]/ZIP Co de Phone Number EXTERNAL LAB * THINPREP PAP AND HPV MRNA E6/E7 W/RFL HPV 16,18/45 (05/30/2023 10:04 AM EDT) Sylvia HEADLEY LAB BLOOD ORDERABLES Final Resul t Performing Organization Address City/[facility] Co de Phone Number EXTERNAL LAB from Last 3 Months or Most Recently Relevant to Health Maintenance Insurance [employer]ICA[employer] Care Teams Java Front End Web Developer Relationship Specialty Start Date End Date Sylvia Romero PA [address] [place] [address] [place] [address] PCP - [facility] 07/06/24
--- OUTSIDE RECORDS SUMMARY | 2025-04-06 13:39 | XMS_ITS | Encounter Summary ---
Author Organization [facility] Address [address] [place] [address] Care Team Providers Care Design Drafter Chief Name Role Phone Sylvia Romero FANG Unavailable Encounter Details Date Type Department Care Team (Late Contact Info) Description 09/17/2024 Abstract [facility] OB [address] [place] [address] Dominic Hester, DO [address] [facility] [address] [place], [place] [id number] Social History Tobacco Use Types Packs/Day Years [...] PM EDT Routine [facility] OB [address] [facility] [place] [address] Sylvia Romero PA [address] [facility] [place] [address] documented as of this encounter Visit Diagnoses Not on filedocumented in this encounter Care Teams Design Drafter Chief Relationship Specialty Start Date End Date Sylvia Romero PA [address] [place] [place] [address] PCP - [facility] RESTAURANT GENERAL MANAGER 07/06/24 documented as of this encounter
--- OUTSIDE RECORDS SUMMARY | 2025-04-06 13:39 | XMS_ITS | Encounter Summary ---
Author Organization [facility] Address [address] [place] [address] Care Team Providers Care Supervisor Mold Yard Name Role Phone Sylvia Romero FANG Unavailable Encounter Details Date Type Department Care Team (Latest Contact Info) Description 04/05/2025 Travel Social History Tobacco Use Types Packs/Day Years [...] 2:50 PM EDT Routine [facility] OB [address] [place] [address] [place] [address] Sylvia Romero PA [address] [place] [address] documented as of this encounter Visit Diagnoses Not on filedocumented in this encounter Care Teams Supervisor [place] Relationship Specialty Start Date End Date Sylvia Romero PA [address] [facility] [address] [place], [place] [phone] PCP - [facility] CLOTH EXAMINER 07/06/24 documented as of this encounter
--- OUTSIDE RECORDS SUMMARY | 2025-04-06 13:39 | XMS_ITS | Encounter Summary ---
Author Organization [facility] Address [address] [place] [address] Care Team Providers Care Pre Press Operator Name Role Phone HeatherSylvia Unavailable Encounter Details Date Type Department Care Team (Late st Contact Info) Description 10/26/2024 Abstract [facility] OB [address] [place] [address] Dominic Hester, DO [address] [place], [place] [phone] Social History Tobacco Use Types Packs/Day Years [...] PM EDT Routine [facility] [address] [facility] [address] Sylvia Romero PA [address] [facility] [place] [address] documented as of this encounter Visit Diagnoses Not on filedocumented in this encounter Care Teams Pre Press Operator Relationship Specialty Start Date End Date Sylvia Romero PA [address] [place] [address] PCP - [facility] 07/06/24 documented as of this encounter
--- OUTSIDE RECORDS SUMMARY | 2025-04-06 13:39 | XMS_ITS | Encounter Summary ---
Author Organization [facility] Address [address] [place] [address] Care Team Providers Care Ropeman Name Role Phone Sylvia Romero Unavailable Sylvia Romero Unavailable Encounter Details Date Type Department Care Team (Late st Contact Info) Description 02/20/2024 Clinisync Result Encounter [facility] External Department Unsolicited Adonis Hester, DO [address] [place], [facility] Social History Tobacco Use Types Packs/Day Years [...] Routine [facility] BCP OB [address] [place] [address] Sylvia Romero PA [address] [place] [address] Dr [place] [phone] documented as of this encounter Procedures Procedure Name Priority Date/Time Associated Diagnosis Comments XR CHEST 2V 02/20/2024 4:06 PM EDT documented in this encounter Results * XR CHEST 2V (02/20/2024 4:06 PM EDT) Anatomical Region Laterality Modality Other 02/20/2024 4:06 PM EDT Narrative 02/20/2024 4:09 PM EDT [address] [address] XRay Report Signed Patient: BREANA JOHN MR#: [id number] : 1990 Acct:[id number] Age/Sex: 33 / F ADM Date: 02/20/24 Loc: [facility] Attending Dr: Adonis Hester D.O. Ordering Physician: Adonis Hester D.O. Date of Service: 02/20/24 Procedure(s): XR chest 2V Accession Number(s): [id number] cc: Adonis Hester D.O.; Physician,Non-Staff [place] [address] [id number] Patient Name: BREANA JOHN MRN: [id number] date: 1990 Sex: F Assigned Patient Location: SURGOUT Current Patient Location: [facility] Accession/Order Number: [id number] Exam Date: 02/20/2024 13:05 Report Date: 02/20/2024 16:06 At the request of: ADONIS HESTER Procedure: XR chest 2V EXAM: XR chest 2V HISTORY: Preop exam COMPARISON: None. TECHNIQUE: Upright PA and lateral chest x-ray FINDINGS: The heart is not enlarged and the vasculature is not distended. No acute infiltrate, effusion or pneumothorax is identified. The osseous structures are grossly intact. XR/XR chest 2V IMPRESSION: No acute infiltrate or evidence of cardiac decompensation. Electronically authenticated by: NAHID HUITRON Date: 02/20/2024 16:06 Dictated By: Nahid Huitron M.D. Signed By: 02/20/241608 DD/ 05 TD/TT: Art Display Maker: Procedure Note Radiology, Radiologist, - 02/20/2024 [place] [address] XRay Report Signed Patient: BREANA JOHN NMR#: [id number] : 1990Acct:[id number] Age/Sex: 33 / FADM Date: 02/20/24 Loc: PST Attending Dr: Adonis Hester D.O. Ordering Physician: Adonis Hester D.O. Date of Service: 02/20/24 Procedure(s): XR chest 2V Accession Number(s): [id number] cc: Adonis Hester D.O.; Physician,Non-Staff [place] [id number] Patient Name: BREANA JOHN MRN: [id number] date: 1990 Sex: F Assigned Patient [facility]: [facility] Current Patient Location: [facility] Accession/Order Number: [id number] Exam Date: 02/20/2024 13:05 Report Date: 02/20/2024 16:06 At the request of: ADONIS HESTER Procedure: XR chest 2V EXAM: XR chest 2V HISTORY: Preop exam COMPARISON: None. TECHNIQUE: Upright PA and lateral chest x-ray FINDINGS: The heart is not enlarged and the vasculature is not distended.No acute infiltrate, effusion or pneumothorax is identified. The osseous structures are grossly intact. XR/XR chest 2V IMPRESSION: No acute infiltrate or evidence of cardiac decompensation. Electronically authenticated by: NAHID HUITRON Date: 02/20/2024 16:06 Dictated By: Nahid Huitron M.D. Signed By:02/20/241608 DD/ 05 TD/TT: Art Display Maker: us Adonis Mir DO [facility] Final Result documented in this encounter Visit Diagnoses Not on filedocumented in this encounter Care Teams Ropeman Relationship Specialty Start Date End Date Sylvia Romero PA [address] [place] [address] PCP - [facility] POST HOLE DIGGING MACHINE OPERATOR 01/05/24 4 Sylvia Romero PA [address] [place] [place] [address] PCP - [facility] POST HOLE DIGGING MACHINE OPERATOR 07/06/24 documented as of this encounter
--- OUTSIDE RECORDS SUMMARY | 2025-04-06 13:39 | XMS_ITS | Encounter Summary ---
Author Organization [facility] Address [address] [place] [address] Care Team Providers Care Bullet Charging Machine Operator Name Role Phone Sylvia Romero Unavailable Encounter Details Date Type Department Care Team (Late st Contact Info) Description 03/24/2025 Patient Outreach [facility] [address] [place] [address] Sylvia Villa LPN [address] [place] [address] Social History Tobacco Use Types Packs/Day Years [...] on file documented as of this encounter Functional Status * Over the past 2 weeks, how often have you been bothered by any of the following problems? Question Answer Date of Assessment Author Little interest or pleasure in doing things Not at all 03/24/2025 10:44 AM EDT Sylvia Villa LP N Feeling down, depressed, or hopeless Not at all 03/24/2025 10:44 AM EDT Sylvia Villa LP N Patient Health Questionnaire -2 Score 0 03/24/2025 10:44 AM EDT Sylvia Villa LP N * If you checked off any problems on this questionnaire so far, Question Answer Date of Assessment Author How difficult have these problems made it for you to do your work, take care of things at home, or get along with other people? Not difficult at all 03/24/2025 10:44 AM EDT Sylvia Villa L PN documented as of this encounter Progress Notes * Sylvia Villa LPN - 03/24/2025 10:39 AM EDT Monthly Outreach. Call to pt. Pt reports she feels baby moving frequently. Appetite and sleep are adequate but sleep can be difficult at times. Bowels are regular. Pt denies any depression or difficulty coping, She reports she feels much better and has not taken anything for depression. Pt denies nay questions, concerns or needs today. Meds reconciled. Next OB OV 04/06/2025 documented in this encounter Plan of Treatment Upcoming Encounters Date Type Department Care Team (Late st Contact Info) Description 04/06/2025 2:50 PM EDT Routine [facility] B[facility] OB [address] [place] [address] Sylvia Romero PA [address] [place] [address] documented as of this encounter Visit Diagnoses Not on filedocumented in this encounter Care Teams Bullet Charging Machine Operator Relationship Specialty Start Date End Date Sylvia Romero PA [address] [place] [address] PCP - [facility] 07/06/24 documented as of this encounter
--- OUTSIDE RECORDS SUMMARY | 2025-04-06 13:39 | XMS_ITS | Encounter Summary ---
Author Organization [facility] Address [address] [place] [address] Care Team Providers Care Project Manager/Team Coach Name Role Phone HeatherSylvia Unavailable Encounter Details Date Type Department Care Team (Late st Contact Info) Description 10/01/2024 Abstract [facility] OB [address] [place] [address] Dominic Hester, DO [address] [place], [facility] Social History Tobacco Use Types Packs/Day Years [...] PM EDT Routine [facility] [address] [facility] [place] [address] Sylvia Romero PA [address] [facility] [place] [address] documented as of this encounter Visit Diagnoses Not on filedocumented in this encounter Care Teams Project Manager/Team Coach Relationship Specialty Start Date End Date Sylvia Romero PA [address] [place] [address] PCP - [facility] 07/06/24 documented as of this encounter
--- OUTSIDE RECORDS SUMMARY | 2025-04-06 13:39 | XMS_ITS | Encounter Summary ---
Author Organization [facility] Address [address] [place] [address] Care Team Providers Care Twist Maker Name Role Phone HeatherSylvia Unavailable Encounter Details Date Type Department Care Team (Late st Contact Info) Description 03/23/2025 Bamboo flowsheet [facility] OB [address] [place] [address] Dominic Hester, DO [address] [facility] [address] [place], [facility] Social History Tobacco Use Types Packs/Day [...] PM EDT Routine [facility] BCP OB [address] [place] [address] Sylvia Romero PA [address] [facility] [place] [address] documented as of this encounter Visit Diagnoses Not on filedocumented in this encounter Care Teams Twist Maker Relationship Specialty Start Date End Date Sylvia Romero PA [address] [facility] [place] [address] PCP - [facility] PHYSICIST ACOUSTICS 07/06/24 documented as of this encounter
--- OUTSIDE RECORDS SUMMARY | 2025-04-06 13:39 | XMS_ITS | Encounter Summary ---
Author Organization [facility] Address [address] [place] [address] Care Team Providers Care Cotton Header Name Role Phone Sylvia Romero FANG Unavailable Encounter Details Date Type Department Care Team (Latest Contact Info) Description 03/23/2025 Travel Social History Tobacco Use Types Packs/Day [...] 2:50 PM EDT Routine [facility] BCP OB [address] [place] [address] [place] [address] Sylvia Romero PA [address] [facility] [address] documented as of this encounter Visit Diagnoses Not on filedocumented in this encounter Care Teams Cotton Header Relationship Specialty Start Date End Date Sylvia Romero PA [address] [facility] [address] [place], [place] [phone] PCP - [facility] CARE ANALYST 07/06/24 documented as of this encounter
--- OUTSIDE RECORDS SUMMARY | 2025-04-06 13:39 | XMS_ITS | Encounter Summary ---
Author Organization [facility] Address [address] [place] [address] Care Team Providers Care Alternative Energy Technician Name Role Phone HeatherSylvia Unavailable Encounter Details Date Type Department Care Team (Late st Contact Info) Description 10/26/2024 Abstract [facility] OB [address] [place] [phone] Dominic Hester, DO [address] [place], [place] [id number] Social History Tobacco Use Types Packs/Day Years [...] PM EDT Routine [facility] [address] [facility] [place] [address] Sylvia Romero PA [address] [place] [place] [address] documented as of this encounter Visit Diagnoses Not on filedocumented in this encounter Care Teams Alternative Energy Technician Relationship Specialty Start Date End Date Sylvia Romero PA [address] [place] [address] PCP - [facility] 07/06/24 documented as of this encounter
--- OUTSIDE RECORDS SUMMARY | 2025-04-06 13:39 | XMS_ITS ---
Author Organization [facility] Address [address] [place] [address] Care Team Providers Care Procurement Cost Coordinator Name Role Phone Sylvia Romero Unavailable [facility] Status:Enrolled (Active) Start date:02/24/2025 Enrollment date:03/01/2025 Enrollment reason:Identified by Health Plan Case Team Name Relationship Phone Sylvia Villa LPN(Responsible Staff) Licensed [facility] Nurse [phone] Continued Care and Services Coordination
--- NOTE | 2025-04-06 13:40 | US_ITS ---
[address] [address] Patient Name: BREANA CASAS MRN: [id number] date: 1990 Sex: F Assigned Patient Location: Current Patient Location: Accession/Order Number: [id number] Exam Date: 04/06/2025 14:46 Report Date: 04/06/2025 14:48 At the request of: ADOINS HANSEN DO Procedure: US OB growth Growth ultrasound. Reason for exam: size and consistent with dates. COMPARISON: None. TECHNIQUE: Transabdominal imaging of the gravid uterus was obtained. FINDINGS: Single live intrauterine 35 weeks 6 days by anatomic measurements. Appropriate growth by dating. Estimated weight is 2760 g which is the 73rd percentile. TAMIR is normal at 11.83 cm. heart rate 144 bpm. position is cephalic at time of scanning. US/US OB growth IMPRESSION: Single live intrauterine 35 weeks 6 days by anatomic measurements. Appropriate growth by dating. Impression dictated by: Seferino Tay Jr., D.O. 04/06/2025 2:48 PM Dictation Location: [place] [address] Electronically authenticated by: [id number] Y Date: 04/06/2025 14:48
== END 2025-04-06 13:38 | disposition home or self-care (01) ==
LOC: US 13:37
PROVIDERS: Visit Provider Obstetrics & Gynecology
DX: O26.843 Uterine size-date discrepancy, third trimester (principal); Z3A.35 35 weeks gestation of pregnancy
CPT/HCPCS: 76816

== ENCOUNTER 2025-04-13 14:00 | Outpatient (OUT) | payer OTHER, SELFPAY ==
--- OUTSIDE RECORDS SUMMARY | 2024-10-01 09:03 | XMS_ITS | Continuity of Care Document ---
Author Organization [facility] Address [address] [place] [address] Phone Care Team Providers Care Cigar Roller Name Role Phone Jagdeep CHAVIRA, Emilee Unavailable Unavailable Allergies, Adverse Reactions, Alerts Substance Reaction Status Criticality No Known Allergies Active No Inform ation Procedures Procedure Date URINE TEST URINALYSIS NONAUTO W/O SCOPE RAPID STI Chalm/Gonorr/Trich OFFICE/OUTPATIENT VISIT, EST OFFICE/OUTPATIENT VISIT, NEW Bp scrn perf rec interval DIAST BP < 80 MM HG SYST BP < 130 MM HG MED LIST DOCD IN [facility] RVW MEDS BY RX/DR IN [facility] Pt inelig neg scrn depres RAPID STI Chalm/Gonorr/Trich Advance Directives Directive Yes / No Effective Date File Name No Information Encounters Encounter Description Practice Location Reason(s) For Visit Diagnoses Date Provider Providers Copied on Encounter [facility], [address] [place] [address], [id number], [place] tel:[phone] [facility] Screening for cervical cancerScreening for cervical cancer 4 Jagdeep Hebert. [address] [place] [address], [id number] , [place]. tel:[phone] OFFICE/OUTPAT IENT VISIT, EST [facility], [address] [place] [address], [id number], [place] tel:[phone] [facility] vaginal discharge/ itching (chief complaint) Encounter for screening for infections with a predominantly sexual mode of transmissionOther problems related to lifestyleVaginal discharge 4 Jagdeep Hebert. [address], [place], [id number] , [place]. tel:[phone] OFFICE/OUTPAT IENT VISIT, [facility], [address], [place], [id number], [place] tel:[phone] [facility]JFS possible exposure (chief complaint) Body mass index [BMI] 21.0-21.9, adultEncounter for screening for infections with a predominantly sexual mode of transmissionOther problems related to lifestyleBody mass index [BMI] 22.0-22.9, adult 3 Jagdeep Hebert. [address] [place] [address], [id number] , [place]. tel:[phone] Family History Family Member Type Diagnosis Age At Onset No Information Payers Payer name Insurance type Covered republican ID Authoriza tion(s) [employer] Medicaid CFC [id number] Medicaid Wrap - [facility] [id number] Social History Type Description Quantity Date Captured [...] annual exam. 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 She does not have a primary fdc. Discuss establishing care here and pt agreeable. [...]
--- OUTSIDE RECORDS SUMMARY | 2025-04-06 14:50 | XMS_ITS | Encounter Summary ---
Author Organization [facility] Address [address] [place] [address] Care Team Providers Care Glass Decorator Name Role Phone Sylvia Romero Unavailable Reason for Visit * Reason Comments Routine Visit Encounter Details Date Type Department Care Team (Latest Contact Info) Description 04/06/2025 2:50 PM EDT Routine [facility] OB [address] [facility] [place] [address] Sylvia Romero PA [address] [facility] [address] size inconsistent with dates ([facility]); 34 weeks gestation of ([facility]); Third trimester ([facility]); Excessive growth affecting management of in third trimester, single or unspecified fetus ([facility]) Social History Tobacco Use Types Packs/Day Years [...] Anovulation 07/19/2024 confirmed by positive blood test ([facility]) 09/09/2024 20 weeks gestation of ([facility]) 12/28/2024 Second trimester ([facility]) 12/28/2024 Resolved Ambulatory Problems Diagnosis Date Noted No Resolved Ambulatory Problems Past Medical History: Diagnosis Date Anxiety Asthma ([facility]) Dyspareunia in female Endometriosis Folliculitis Hematuria Miscarriage ([facility]) PID (acute pelvic inflammatory disease) Trichomoniasis 2013 [...] PLAN ICD-10-CM 1. size inconsistent with dates ([facility]) O26.849 US OB follow up transabdominal approach 2. 34 weeks gestation of ([facility]) Z3A.34 3. Third trimester ([facility]) Z34.93 POCT urinalysis dipstick manually resulted Return [...] Routine [facility] OB [address] [place] [phone] Dominic Hester, [address] [place] [address] Pending Results Name Type Priority Associated Diagnoses Date /Time US OB follow up transabdominal approach Imaging Routine size inconsistent with dates ([facility]) 04/06/2025 2:45 PM EDT documented as of this encounter Procedures Procedure Name Priority Date/Time Associated Diagnosis Comments POCT URINALYSIS DIPSTICK Routine 04/06/2025 3:34 PM EDT Third trimester ([facility]) documented in this encounter Results * POCT [...] Visit Diagnoses Diagnosis size inconsistent with dates ([facility]) 34 weeks gestation of ([facility]) Third trimester ([facility]) state, incidental Excessive growth affecting management of in third trimester, single or unspecified fetus ([facility]) documented in this encounter Care Teams Glass Decorator Relationship Specialty Start Date End Date Sylvia Romero PA [address] [place] [address] [place] [address] PCP - [place] [facility] NIGHT TIME NANNY 07/06/24 documented as of this encounter
--- NOTE | 2025-04-13 | US_ITS ---
[address] [address] Patient Name: BREANA CASAS MRN: [id number] date: 1990 Sex: F Assigned Patient Location: [place] [facility] [place]/Order Number: [id number] Exam Date: 04/13/2025 16:16 Report Date: 04/13/2025 16:17 At the request of: CHAZ ENRIQUEZ Procedure: US OB BPP w non-stress Ultrasound biophysical profile HISTORY: Excessive growth Adequate breathing movement, gross body movement, tone and amniotic fluid volume for total score of 8 out of 8. The amniotic fluid index is 14.9cm within normal limits. The heart rate 144 bpm. US/US OB BPP w non-stress IMPRESSION: Adequate ultrasound biophysical profile Impression dictated by: Tanner Burleson M.D. 04/13/2025 4:17 PM Dictation Location: [place] [address] Electronically authenticated by: [id number] Y Date: 04/13/2025 16:17
[2025-04-13 14:42] VITALS: BP 101/59; PULSE 95
--- OUTSIDE RECORDS SUMMARY | 2025-04-19 14:20 | XMS_ITS | Encounter Summary ---
Author Organization [facility] Address [address] [place] [address] Care Team Providers Care Welding Tester Name Role Phone Sylvia Romero Unavailable Reason for Visit * Reason Comments Routine Visit Encounter Details Date Type Department Care Team (Late st Contact Info) Description 04/19/2025 2:20 PM EDT Routine [facility] [address] [place] [address] Dominic Hester, DO [address] [facility] [address] [place], [place] [id number] Third trimester ([facility]); Mood changes Social History Tobacco Use Types [...] Routine [facility] [address] [place] [address] Dominic Hester DO [address] [place], [place] [id number] Scheduled Orders Name Type Priority Associated Diagnoses Orde r Schedule CULTURE, GROUP B STREP WITH SUSCEPTIBLITY Lab Routine Third trimester ([facility]) Expected: 04/19/2025, Expires: 04/19/2026 documented as of this encounter Visit Diagnoses Diagnosis Third trimester ([facility]) state, incidental Mood changes Unspecified episodic mood disorder documented in this encounter Care Teams Welding Tester Relationship Specialty Start Date End Date Sylvia Romero PA [address] [place], [place] [id number] PCP - [facility] MODEL MAKER APPRENTICE 07/06/24 documented as of this encounter
--- OUTSIDE RECORDS SUMMARY | 2025-04-20 08:39 | XMS_ITS | Encounter Summary ---
Author Organization [facility] Address [address] [place] [address] Care Team Providers Care Occasional Caregiver Name Role Phone ColbertSylvia Unavailable Encounter Details Date Type Department Care Team (Late st Contact Info) Description 10/26/2024 Abstract [facility] OB [address] [place] [phone] Dominic Hester, DO [address] Abhijeet [place], [id number] Social History Tobacco Use Types Packs/Day Years [...] Routine [facility] OB [address] [place] [address] Dominic Hester DO [address] [place] [address] documented as of this encounter Visit Diagnoses Not on filedocumented in this encounter Care Teams Occasional Caregiver Relationship Specialty Start Date End Date Sylvia Romero PA [address] [place] [address] PCP - [facility] 07/06/24 documented as of this encounter
--- OUTSIDE RECORDS SUMMARY | 2025-04-20 08:39 | XMS_ITS | Encounter Summary ---
Author Organization [facility] Address [address] [place] [address] Care Team Providers Care Wire Rope Fabrication Supervisor Name Role Phone Sylvia Romero FANG Unavailable Encounter Details Date Type Department Care Team (Late Contact Info) Description 09/17/2024 Abstract [facility] OB [address] [place] [address] Dominic Hester, DO [address] Abhijeet [place], [place] [address] Social History Tobacco Use Types Packs/Day Years [...] AM EDT Routine [facility] OB [address] [place] [address] Dominic Hetser DO [address] Abhijeet [place], [place] [address] documented as of this encounter Visit Diagnoses Not on filedocumented in this encounter Care Teams Wire Rope Fabrication Supervisor Relationship Specialty Start Date End Date Sylvia Romero PA [address] [place], [place] [address] PCP - [facility] IMPORT COORDINATOR 07/06/24 documented as of this encounter
--- OUTSIDE RECORDS SUMMARY | 2025-04-20 08:39 | XMS_ITS | Encounter Summary ---
Author Organization [facility] Address [address] [place] [address] Care Team Providers Care Lead Refiner Name Role Phone EasleySylvia Unavailable Encounter Details Date Type Department Care Team (Late st Contact Info) Description 10/01/2024 Abstract [facility] OB [address] [place] [phone] Dominic Hester, DO [address] Abhijeet [place], [facility]11 Social History Tobacco Use Types [...] Routine [facility] B[facility] OB [address] [place] [address] Dominic Hester DO [address] [place] [address] documented as of this encounter Visit Diagnoses Not on filedocumented in this encounter Care Teams Lead Refiner Relationship Specialty Start Date End Date Sylvia Romero PA [address] [place] [address] PCP - [facility] 07/06/24 documented as of this encounter
--- OUTSIDE RECORDS SUMMARY | 2025-04-20 08:39 | XMS_ITS | Encounter Summary ---
Author Organization [facility] Address [address] [place] [address] Care Team Providers Care Harness Worker Name Role Phone Sylvia Romero Unavailable Encounter Details Date Type Department Care Team (Late st Contact Info) Description 04/06/2025 Clinisync Result Encounter N[facility] External Department Unsolicited Adonis Hester, DO [address] Abhijeet Aguilar [place], [place] [phone] Social History Tobacco Use Types Packs/Day Years [...] AM EDT Routine [facility] [address] [facility] [place] [address] Adonis Hester DO [address] [place] [address] documented as of this encounter Procedures Procedure Name Priority Date/Time Associated Diagnosis Comments US OB GROWTH 04/06/2025 2:48 PM EDT documented in this encounter Results * US OB GROWTH (04/06/2025 2:48 PM EDT) Anatomical Region Laterality Modality Other 04/06/2025 2:48 PM EDT Narrative 04/06/2025 2:51 PM EDT The [address] [address] Ultrasound Report Signed Patient: BREANA JOHN MR#: [id number] : 1990 Acct:[id number] Age/Sex: 34 / F ADM Date: 04/06/25 Loc: US Attending Dr: Adonis Hester D.O. Ordering Physician: Adonis Hester D.O. Date of Service: 04/06/25 Procedure(s): US OB growth Accession Number(s): [id number] cc: Adonis Hester D.O.; Physician,Non-Staff M.D. The [address] [address] Patient Name: BREANA JOHN MRN: [id number] date: 1990 Sex: F Assigned Patient Location: US Current Patient Location: US Accession/Order Number: [id number] Exam Date: 04/06/2025 14:46 Report Date: 04/06/2025 [...] Jr., D.O. 04/06/2025 2:48 PM Dictation Location: [place] [address] Electronically authenticated by: [id number] Y Date: 04/06/2025 14:48 Dictated By: Seferino Tay M.D. Signed By: 04/06/25 1451 DD/ 1448 TD/TT: Sand Mill Grinder: Procedure Note Radiology, Radiologist, MD - 04/06/2025 [place] [address] Ultrasound Report Signed Patient: BREANA JOHN NMR#: [id number] : 1990Acct:[id number] Age/Sex: 34 / FADM Date: 04/06/25 Loc: US Attending Dr: Adonis Hester D.O. Ordering Physician: Adonis Hester D.O. Date of Service: 04/06/25 Procedure(s): US OB growth Accession Number(s): [id number] cc: Adonis Hester D.O.; Physician,Non-Staff [place] The [place] [id number] Patient Name: BREANA JOHN MRN: [id number] date: 1990 Sex: F Assigned Patient Location: US Current Patient Location: US Accession/Order Number: [id number] Exam Date: 04/06/2025 14:46 Report Date: 04/06/2025 14:48 At the request of: ADONIS HESTER DO Procedure: US OB growth Growth ultrasound. Reason for exam: size and consistent with dates. COMPARISON: None. TECHNIQUE: Transabdominal imaging of the gravid uterus was obtained. FINDINGS: Single live intrauterine 35 weeks 6 days by anatomic measurements. Appropriate growth by dating. Estimated weight [id number] g which is the 73rd percentile. TAMIR is normal at 11.83 cm. heartrate 144 bpm. position is cephalic at time of scanning. US/US OB growth IMPRESSION: Single live intrauterine 35 weeks 6 days by anatomic measurements. Appropriate growth by dating. Impression dictated by: Seferino Tay Jr., D.O. 04/06/2025 2:48 PM Dictation [facility] Electronically authenticated by: [id number] Y Date: 4:48 Dictated By: Seferino Tay M.D. Signed By:04/06/25 1451 DD/ 1448 TD/TT: Sand Mill Grinder: [facility] Final Result documented in this encounter Visit Diagnoses Not on filedocumented in this encounter Care Teams Harness Worker Relationship Specialty Start Date End Date Sylvia Romero PA [address] [place] [address] [place] [address] PCP - [facility] 07/06/24 documented as of this encounter
--- OUTSIDE RECORDS SUMMARY | 2025-04-20 08:39 | XMS_ITS | Encounter Summary ---
Author Organization [facility] Address [address] [place] [address] Care Team Providers Care Manager Database Name Role Phone Hills, Sylvia HEADLEY Unavailable Encounter Details Date Type Department Care Team (Late Contact Info) Description 04/28/2024 Abstract [facility] [address] [facility] [place] [address] Zainab Mcwilliams LPN [address] [place] [address] Social History Tobacco Use Types [...] AM EDT Routine [facility] OB [address] [place] [address] Dominic Hester DO [address] [facility] [place] [address] documented as of this encounter Visit Diagnoses Not on filedocumented in this encounter Care Teams Manager Database Relationship Specialty Start Date End Date Sylvia Romero PA [address] [place], [place] [phone] PCP - [facility] ROD WELDER 07/06/24 documented as of this encounter
--- OUTSIDE RECORDS SUMMARY | 2025-04-20 08:39 | XMS_ITS ---
Author Organization [facility] Address [address] [place] [address] Care Team Providers Care Remote Encoding Operations Supervisor Name Role Phone Sylvia Romero Unavailable Comprehensive [facility]aternal Care ([facility]) Status:Enrolled (Active) Start date:02/24/2025 Enrollment date:03/01/2025 Enrollment reason:Identified by Health Plan Case Team Name Relationship Phone Sylvia Villa LPN(Responsible Staff) Licensed [facility] Nurse [phone] Continued Care and Services Coordination
--- OUTSIDE RECORDS SUMMARY | 2025-04-20 08:39 | XMS_ITS | Encounter Summary ---
Author Organization [facility] Address [address] [place] [address] Care Team Providers Care Swimming Pool Service Technician Name Role Phone Sylvia Romero Unavailable Sylvia Romero Unavailable Encounter Details Date Type Department Care Team (Late st Contact Info) Description 02/20/2024 Clinisync Result Encounter [facility] External Department Unsolicited Adonis Hester, DO [address] [place], [facility]11 Social History Tobacco Use Types Packs/Day Years [...] Routine [facility] OB [address] [place] [address] Adonis Hester, DO [address] [facility] [place] [address] documented as of this encounter Procedures Procedure Name Priority Date/Time Associated Diagnosis Comments XR CHEST 2V 02/20/2024 4:06 PM EDT documented in this encounter Results * XR CHEST 2V (02/20/2024 4:06 PM EDT) Anatomical Region Laterality Modality Other 02/20/2024 4:06 PM EDT Narrative 02/20/2024 4:09 PM EDT [address] [address] XRay Report Signed Patient: BREANA JOHN MR#: [id number] : 1990 Acct:[id number] Age/Sex: 33 / F ADM Date: 02/20/24 Loc: [facility] Attending Dr: Adonis Hester D.O. Ordering Physician: Adonis Hester D.O. Date of Service: 02/20/24 Procedure(s): XR chest 2V Accession Number(s): [id number] cc: Adonis Hester D.O.; Physician,Non-Staff MPaula [address] [address] Patient Name: BREANA JOHN MRN: [facility]:[id number] date: 1990 Sex: F Assigned Patient Location: SURGOUT Current Patient Location: [facility] Accession/Order Number: [id number] Exam Date: 02/20/2024 13:05 Report Date: 02/20/2024 [...] M.D. Signed By: 02/20/241608 DD/ 05 TD/TT: Outside Sales Engineer: Procedure Note Radiology, Radiologist, - 02/20/2024 [place] [address] XRay Report Signed Patient: BREANA JOHN NMR#: [id number] : 1990Acct:[id number] Age/Sex: 33 / FADM Date: 02/20/24 Loc: PST Attending Dr: Adonis Hester D.O. Ordering Physician: Adonis Hester D.O. Date of Service: 02/20/24 Procedure(s): XR chest 2V Accession Number(s): [id number] cc: Adonis Hester D.O.; Physician,Non-Staff [place] The [place] [id number] Patient Name: BREANA JOHN MRN: [facility]:[id number] date: 1990 Sex: F Assigned Patient Location: [facility] Current Patient Location: [facility] Accession/Order Number: [id number] Exam Date: 02/20/2024 13:05 Report Date: 02/20/2024 [...] Huitron M.D. Signed By:02/20/241608 DD/ 05 TD/TT: Outside Sales Engineer: us Adonis Mir DO [facility] Final Result documented in this encounter Visit Diagnoses Not on filedocumented in this encounter Care Teams Swimming Pool Service Technician Relationship Specialty Start Date End Date Sylvia Romero PA [address] [facility] [place] [address] PCP - [facility] FLIGHT TEST SHOP MECHANIC 01/05/24 4 Sylvia Romero PA [address] [facility] [place] [address] PCP - [facility] FLIGHT TEST SHOP MECHANIC 07/06/24 documented as of this encounter
--- OUTSIDE RECORDS SUMMARY | 2025-04-20 08:39 | XMS_ITS | Encounter Summary ---
Author Organization [facility] Address [address] [place] [address] Care Team Providers Care Urogynecology Physician Name Role Phone Sylvia Enriquez Unavailable Encounter Details Date Type Department Care Team (Late st Contact Info) Description 04/13/2025 Clinisync Result Encounter N[facility] External Department Unsolicited Sylvia Enriquez PA [address] [facility] [address] [place], [facility] Social History Tobacco Use Types Packs/Day Years [...] AM EDT Routine [facility] OB [address] [facility] [place] [address] Dominic Hester, DO [address] [facility] [place] [address] documented as of this encounter Procedures Procedure Name Priority Date/Time Associated Diagnosis Comments US OB BPP W NON-STRESS 04/13/2025 4:17 PM EDT documented in this encounter Results * US OB BPP W NON-STRESS (04/13/2025 4:17 PM EDT) Anatomical Region Laterality Modality Other 04/13/2025 4:17 PM EDT Narrative 04/13/2025 4:19 PM EDT [address] [address] Ultrasound Report Signed Patient: BREANA JOHN MR#: [id number] : 1990 Acct:[id number] Age/Sex: 34 / F ADM Date: Loc: US Attending Dr: Sylvia Enriquez Ordering Physician: Sylvia Enriquez Date of Service: 04/13/25 Procedure(s): US OB BPP w non-stress Accession Number(s): [id number] cc: Sylvia Enriquez; Physician,Non-Staff M.D. The [address] [address] Patient Name: BREANA JOHN MRN: [id number] date: 1990 Sex: F Assigned Patient Location: US Current Patient Location: [facility] Accession/Order Number: [id number] Exam Date: 04/13/2025 16:16 Report Date: 04/13/2025 [...] Burleson M.D. 04/13/2025 4:17 PM Dictation Location: [place] [address] Electronically authenticated by: [id number] Y Date: 04/13/2025 16:17 Dictated By: Tanner Burleson D.O. Signed By: 04/13/25 1619 DD/ TD/TT: Spinning Supervisor: Procedure Note Radiology, Radiologist, - 04/13/2025 [place] [address] Ultrasound Report Signed Patient: BREANA JOHN NMR#: [id number] : 1990Acct:[id number] Age/Sex: 34 / FADM Date: Loc: US Attending Dr: Sylvia Enriquez Ordering Physician: Sylvia Enriquez Date of Service: 04/13/25 Procedure(s): US OB BPP w non-stress Accession Number(s): [id number] cc: Sylvia Enriquez; Physician,Non-Staff Augustine The [place] [id number] Patient Name: BREANA JOHN MRN: [id number] date: 1990 Sex: F Assigned Patient Location: Current Patient Location: [facility] Accession/Order Number: [id number] Exam Date: 04/13/2025 16:16 Report Date: 04/13/2025 [...] Burleson M.D. 04/13/2025 4:17 PM Dictation Location: [place] [address] Electronically authenticated by: [id number] Y Date: 6:17 Dictated By: Tanner Burleson D.O. Signed By:04/13/25 1619 DD/ 1617 TD/TT: Spinning Supervisor: us Sylvia HEADLEY [facility] Final Result documented in this encounter Visit Diagnoses Not on filedocumented in this encounter Care Teams Urogynecology Physician Relationship Specialty Start Date End Date Sylvia Enriquez PA [address] [place] [address] [place] [address] PCP - [facility] 07/06/24 documented as of this encounter
--- OUTSIDE RECORDS SUMMARY | 2025-04-20 08:39 | XMS_ITS | Encounter Summary ---
Author Organization [facility] Address [address] [place] [address] Care Team Providers Care Clinic Director Name Role Phone Heather Sylvia HEADLEY Unavailable Encounter Details Date Type Department Care Team (Late st Contact Info) Description 12/13/2024 Orders Only [facility] OB [address] [place] [address] [place] [address] Adriana Hartman MA Social History Tobacco [...] AM EDT Routine [facility] OB [address] [facility] [place] [address] Dominic Hester DO [address] [facility] [address] Abhijeet [place], [place] [address] documented as of this encounter Procedures Procedure Name Priority Date/Time Associated Diagnosis Comments PAP SMEAR Routine 11/30/2024 12:00 AM EST documented in this encounter Results * Pap Smear (11/30/2024 12:00 AM EST) Swab Cervical swab / Unknown us Sylvia HEADLEY LAB CYTOLOGY ORDERABLES Final Re sult EXTERNAL LAB documented in this encounter Visit Diagnoses Not on filedocumented in this encounter Care Teams Clinic Director Relationship Specialty Start Date End Date Sylvia Romero PA [address] [facility] [place] [address] PCP - [facility] PATIENT ASSESSMENT COORDINATOR 07/06/24 documented as of this encounter
--- OUTSIDE RECORDS SUMMARY | 2025-04-20 08:39 | XMS_ITS | Encounter Summary ---
Author Organization [facility] Address [address] [place] [address] Care Team Providers Care Sanitary Engineer Name Role Phone Sylvia Romero FANG Unavailable [...] 11:30 AM EDT Routine [facility] OB [address] [place] [address] [place] [address] Dominic Hester DO [address] [place] [address] documented as of this encounter Visit Diagnoses Not on filedocumented in this encounter Care Teams Sanitary Engineer Relationship Specialty Start Date End Date Sylvia Romero PA [address] [place] [address] PCP - [facility] REHABILITATION SERVICES MANAGER 07/06/24 documented as of this encounter
--- OUTSIDE RECORDS SUMMARY | 2025-04-20 08:39 | XMS_ITS ---
Author Organization [facility] Source Produ ction (ClinicalSummary Clone) Address Unknown Care Team Providers Care Fiscal Analyst Name Role Phone Unavailable Primary Care Physician Unavailab le Results * [UNITY] ANEUPLOIDY NIPT Performed by: Gild Component Value Range Date Fraction 11.6% 10/26/2024 05 :40 am UTC Sex Chromosome Aneuploidy NOT DETECTED 05:40 am UTC Monosomy X LOW RISK <1 in 10,000 2024 05:40 am UTC Trisomy 13 LOW RISK <1 in 10,000 2024 05:40 am UTC Trisomy 18 LOW RISK <1 in 10,000 2024 05:40 am UTC Trisomy 21 LOW RISK <1 in 10,000 2024 05:40 am UTC Sex FEMALE 10/26/2024 05:4 0 am UTC Gestation BARKER 10/26/19 05:40 am UTC For detailed report, see PDF See PDF 10/26/2024 05:40 am UTC 10/26/2024 05:4 0 am UT Social History Observation Value Start Date End Date
--- OUTSIDE RECORDS SUMMARY | 2025-04-20 08:39 | XMS_ITS | Encounter Summary ---
Author Organization [facility] Address [address] [place] [address] Care Team Providers Care Juice Bar Team Member Name Role Phone BradfordSylvia Unavailable Encounter Details Date Type Department Care Team (Late st Contact Info) Description 02/21/2025 Results Follow-Up [facility] OB [address] [place] [address] Zainab Mcwilliams LPN [address] [place] [address] Social History Tobacco Use Types [...] [facility] OB [address] [place] [address] Dominic Hester DO [address] [place], [place] [phone] documented as of this encounter Visit Diagnoses Not on filedocumented in this encounter Care Teams Juice Bar Team Member Relationship Specialty Start Date End Date Sylvia Romero PA [address] [place], [place] [phone] PCP - [facility] ENGINE TEST CELL TECHNICIAN 07/06/24 documented as of this encounter
--- OUTSIDE RECORDS SUMMARY | 2025-04-20 08:39 | XMS_ITS | Encounter Summary ---
Author Organization [facility] Address [address] [place] [address] Care Team Providers Care Environmental Advisor Name Role Phone YaleSylvia Unavailable Encounter Details Date Type Department Care Team (Late st Contact Info) Description 04/19/2025 Bamboo flowsheet [facility] OB [address] [place] [address] Dominic Hester, DO [address] [facility] [address] Abhijeet [place], [id number] Social History Tobacco Use Types Packs/Day Years [...] Routine [facility] B[facility] OB [address] [place] [address] Dominic Hester DO [address] [place] [address] documented as of this encounter Visit Diagnoses Not on filedocumented in this encounter Care Teams Environmental Advisor Relationship Specialty Start Date End Date Sylvia Romero PA [address] [place] [address] PCP - [facility] PARK WORKER SUPERVISOR 07/06/24 documented as of this encounter
--- OUTSIDE RECORDS SUMMARY | 2025-04-20 08:39 | XMS_ITS | Encounter Summary ---
Author Organization [facility] Address [address] [place] [address] Care Team Providers Care Director Experimental Medicine Name Role Phone Sylvia Romero Unavailable Sylvia Romero Unavailable Encounter Details Date Type Department Care Team (Late st Contact Info) Description 05/14/2023 Abstract [facility] OB [address] [facility] [place] [address] Sylvia Romero PA [address] [facility] [place] [address] Social History Tobacco Use Types Packs/Day [...] [facility] OB [address] [place] [address] Dominic Hester DO [address] [place], [place] [phone] documented as of this encounter Visit Diagnoses Not on filedocumented in this encounter Care Teams Director Experimental Medicine Relationship Specialty Start Date End Date Sylvia Romero PA [address] [place] [address] PCP - [facility] DITCH RIDER 01/05/24 4 Sylvia Romero PA [address] [place] [address] PCP - [facility] DITCH RIDER 07/06/24 documented as of this encounter
--- OUTSIDE RECORDS SUMMARY | 2025-04-20 08:39 | XMS_ITS | Encounter Summary ---
Author Organization [facility] Address [address] [place] [address] Care Team Providers Care Human Resources Representative Name Role Phone TurkeySylvia Unavailable Encounter Details Date Type Department Care Team (Late st Contact Info) Description 10/26/2024 Abstract [facility] OB [address] [place] [address] Dominic Hester, DO [address] Abhije[place], [facility]11 Social History Tobacco Use Types Packs/Day Years [...] Routine [facility] BCP OB [address] [place] [address] Dominic Hester DO [address] [place] [address] documented as of this encounter Visit Diagnoses Not on filedocumented in this encounter Care Teams Human Resources Representative Relationship Specialty Start Date End Date Sylvia Romero PA [address] [place] [address] PCP - [facility] 07/06/24 documented as of this encounter
--- OUTSIDE RECORDS SUMMARY | 2025-04-20 08:39 | XMS_ITS | Clinical Summary ---
Author Organization [facility] Healthcare Address [address] [place] [address] Care Team Providers Care Risk Management Director Name Role Phone Sylvia Enriquez Unavailable Allergies No known active allergies Medications ondansetron ODT (Zofran-ODT) 4 MG disintegrating tabletIndications:P regnancy confirmed by positive blood test ([facility]),Nausea Take 1 tablet (4 mg) by mouth every 6 (six) hours if needed for nausea or vomiting for up to 30 doses 30 tablet 2 4 Active Vit-Fe Fumarate-FA ( Vitamins) 28-0.8 MG tabletIndications:P regnancy confirmed by positive blood test ([facility]) Take 1 tablet by mouth [...] Date Diagnosed Date 20 weeks gestation of ([facility]) 2024 Second trimester ([facility]) 12/28/2024 confirmed by positive blood test ([facility]) 09/09/2024 Anovulation 07/19/2024 Dysmenorrhea 03/11/2023 Menorrhagia with irregular cycle 03/11/2023 Missed menses 03/11/2023 Nausea and vomiting 03/11/2023 Pain in female genitalia on intercourse 03/11/20 23 Pain in pelvis 03/11/2023 Scar of skin 03/11/2023 Estimated Date of Delivery Comme nts Yes 05/12/2025 Based on last me nstrual period of 08/05/2024 Encounters Date Type Department Care Team Description 04/19/2025 2:20 PM EDT Routine [facility] [address] [place] [place] [address] Adonis Hester DO Third trimester ([facility]); Mood changes 04/19/2025 Bamboo flowsheet [facility] [address] [place] [address] [place] [address] dAonis Hester DO 04/19/2025 Travel 04/13/2025 Clinisync Result Encounter [facility] External Department Unsolicited Sylvia Enriquez PA 04/06/2025 2:50 PM EDT Routine [facility] [address] [place], [place] [address] [address] Sylvia Enriquez PA size inconsistent with dates ([facility]); 34 weeks gestation of ([facility]); Third trimester ([facility]); Excessive growth affecting management of in third trimester, single or unspecified fetus ([facility]) 04/06/2025 Clinisync Result Encounter [facility] External Department Unsolicited Adonis Hester DO 04/05/2025 Travel 03/24/2025 Patient Outreach [facility] [place] [place] [phone] Sylvia Villa LPN 03/23/2025 2:30 PM EDT Routine [facility] [address] [facility] [address] [place] [address] Adonis Hester DO Third trimester ([facility]); 32 weeks gestation of ([facility]); size inconsistent with dates ([facility]) 03/23/2025 Bamboo flowsheet [facility] [address] [place] [address] Adonis Hester, 03/23/2025 Travel 03/09/2025 2:30 PM EDT Routine [facility] [address] [place] [address] [place] [address] Sylvia Enriquez PA Third trimester ([facility]); 30 weeks gestation of ([facility]) 03/09/2025 Bamboo flowsheet [facility] [address] [facility] [place] [address] Sylvia Enriquez PA 03/08/2025 Travel 03/01/2025 Patient Outreach [facility] [address] [place] [address] Sylvia Villa LPN 02/23/2025 2:50 PM EDT Routine [facility] [address] [place] [address] [place] [address] Adonis Hester DO Third trimester ([facility]); 28 weeks gestation of ([facility]) 02/23/2025 Bamboo flowsheet [facility] [address] [facility] [facility] [place] [address] Adonis Hester DO 02/23/2025 Travel 02/21/2025 Results Follow-Up [facility] [address] [place] [address] [place] [address] Zainab Mcwilliams LPN 02/21/2025 Telephone [facility] [address] [place] [address] [place] [address] Zainab Mcwilliams LPN 02/17/2025 2:30 PM EDT Ancillary Procedure [facility] [address] [place] [address] [place] [address] Encounter for follow-up ultrasound of anatomy ([facility]) 02/17/2025 Clinisync Result Encounter [facility] External Department Unsolicited Amaya Steve NP 02/17/2025 Travel 01/31/2025 2:50 PM EDT Routine [facility] [address] [facility] [place] [address] Amaya Steve NP 25 weeks gestation of ([facility]); Second trimester ([facility]); Encounter for follow-up ultrasound of anatomy ([facility]); Diabetes mellitus screening 01/31/2025 Bamboo flowsheet [facility] [address] [facility] [place] [address] Amaya Steve NP 01/31/2025 Travel from Last [...] AM EDT Routine [facility] [address] [facility] [place] [address] Adonis Hester, DO [address] [facility] [place] [address] Health Maintenance Due Date Last Done Comments Influenza Vaccine (#1) 2025 Cervical Cancer Screening 11/30/2025 HPV/Cotest 11/30/2025 05/30/2023, 11/14/2020 Pap Smear 11/30/2025 11/30/2024, 05/30/2023, 020 06/2021 Procedures Procedure Name Priority Date/Time Associated Diagnosis Comments OB BPP W NON-STRESS 04/13/2025 4:17 PM EDT POCT URINALYSIS DIPSTICK Routine 04/06/2025 3:34 PM EDT Third trimester ([facility]) US OB GROWTH 04/06/2025 2:48 PM EDT POCT URINALYSIS DIPSTICK Routine 03/23/2025 2:44 PM EDT Third trimester ([facility]) POCT URINALYSIS DIPSTICK Routine 03/09/2025 3:02 PM EDT Third trimester ([facility]) POCT URINALYSIS DIPSTICK Routine 02/23/2025 5:25 PM EDT Third trimester ([facility]) US OB LIMITED 1+ FETUSES Routine 02/17/2025 2:51 PM EDT Encounter for follow-up ultrasound of anatomy ([facility]) GLUCOSE 1 HOUR Routine 02/17/2025 2:25 PM EDT ALL CBC WITH AUTO DIFF Routine 02/17/2025 2:25 PM EDT POCT URINALYSIS DIPSTICK Routine 01/31/2025 3:29 PM EDT 25 weeks gestation of ([facility]) Second trimester ([facility]) PAP SMEAR Routine 11/30/2024 12:00 [...] PM EDT Narrative 04/13/2025 4:19 PM EDT [address] [address] Ultrasound Report Signed Patient: BREANA JOHN MR#: [id number] : 1990 Acct:[id number] Age/Sex: 34 / F ADM Date: Loc: US Attending Dr: Sylvia Enriquez Ordering Physician: Sylvia Enriquez Date of Service: 04/13/25 Procedure(s): US OB BPP w non-stress Accession Number(s): [id number] cc: Sylvia Enriquez; Physician,Non-Staff M.D. [address] [id number] Patient Name: BREANA JOHN MRN: [id number] date: 1990 Sex: F Assigned Patient Location: [place] Current Patient Location: [place] Accession/Order Number: [id number] Exam Date: 04/13/2025 16:16 Report Date: 04/13/2025 [...] Burleson M.D. 04/13/2025 4:17 PM Dictation Location: [place] [address] Electronically authenticated by: [id number] Y Date: 04/13/2025 16:17 Dictated By: Tanner Burleson D.O. Signed By: 04/13/25 1619 DD/ TD/TT: Social Work Administrator: Procedure Note Radiology, Radiologist, MD - 04/13/2025 [place] [address] Ultrasound Report Signed Patient: BREANA JOHN NMR#: [id number] : 1990Acct:[id number] Age/Sex: 34 / FADM Date: Loc: US Attending Dr: Sylvia Enriquez Ordering Physician: Sylvia Enriquez Date of Service: 04/13/25 Procedure(s): US OB BPP w non-stress Accession Number(s): [id number] cc: Sylvia Enriquez; Physician,Non-Staff MPaula The [address] [address] Patient Name: BREANA JOHN MRN: [id number] date: 1990 Sex: F Assigned Patient Location: US Current Patient Location: [facility] Accession/Order Number: [id number] Exam Date: 04/13/2025 16:16 Report Date: 04/13/2025 [...] Burleson M.D. 04/13/2025 4:17 PM Dictation Location: [place] Electronically authenticated by: [id number] Y Date: 6:17 Dictated By: Tanner Burleson D.O. Signed By:04/13/259 DD/ 16 TD/TT: Social Work Administrator: us Sylvia HEADLEY [facility] Final Result [...] mg/dL Leukocytes, UA Positive Negative - 500+++ Kea/mcL Comment:small Nitrite, UA Negative Negative - Positive Urine 04/06/2025 3:34 PM EDT us Sylvia HEADLEY POINT OF CARE TEST ENTER/EDIT OR DERABLES Final Result * US OB GROWTH (04/06/2025 2:48 PM EDT) Anatomical Region Laterality Modality Other 04/06/2025 2:48 PM EDT Narrative 04/06/2025 2:51 PM EDT [address] [address] Ultrasound Report Signed Patient: BREANA JOHN MR#: [id number] : 1990 Acct:[id number] Age/Sex: 34 / F ADM Date: 04/06/25 Loc: US Attending Dr: Adonis Hester D.O. Ordering Physician: Adonis Hester D.O. Date of Service: 04/06/25 Procedure(s): US OB growth Accession Number(s): [id number] cc: Adonis Hester D.O.; Physician,Non-Staff [place] [facility] [address] [id number] Patient Name: BREANA JOHN MRN: [id number] date: 1990 Sex: F Assigned Patient Location: US Current Patient Location: US Accession/Order Number: [id number] Exam Date: 04/06/2025 14:46 Report Date: 04/06/2025 [...] Jr., D.O. 04/06/2025 2:48 PM Dictation Location: [place] [address] Electronically authenticated by: [id number] Y Date: 04/06/2025 14:48 Dictated By: Seferino Tay M.D. Signed By: 04/06/25 1451 DD/ 1448 TD/TT: Social Work Administrator: Procedure Note Radiology, Radiologist, - 04/06/2025 [place] [address] Ultrasound Report Signed Patient: BREANA JOHN NMR#: [id number] : 1990Acct:[id number] Age/Sex: 34 / FADM Date: 04/06/25 Loc: US Attending Dr: Adonis Hester D.O. Ordering Physician: Adonis Hester D.O. Date of Service: 04/06/25 Procedure(s): US OB growth Accession Number(s): [id number] cc: Adonis Hester D.O.; Physician,Non-Staff [place] [facility] [place] [id number] Patient Name: BREANA JOHN MRN: [id number] date: 1990 Sex: F Assigned Patient Location: US Current Patient Location: US Accession/Order Number: [id number] Exam Date: 04/06/2025 14:46 Report Date: 04/06/2025 14:48 At the request of: ADONIS HESTER DO Procedure: US OB growth Growth ultrasound. Reason for exam: size and consistent with dates. COMPARISON: None. TECHNIQUE: Transabdominal imaging of the gravid uterus was obtained. FINDINGS: Single live intrauterine 35 weeks 6 days by anatomic measurements. Appropriate growth by dating. Estimated weight am0467 g which is the 73rd percentile. TAMIR is normal at 11.83 cm. heartrate 144 bpm. position is cephalic at time of scanning. US/US OB growth IMPRESSION: Single live intrauterine 35 weeks 6 days by anatomic measurements. Appropriate growth by dating. Impression dictated by: Seferino Tay Jr., D.O. 04/06/2025 2:48 PM Dictation Location: [place] [address] Electronically authenticated by: [id number] Y Date: 514:48 Dictated By: Seferino Tay M.D. Signed By:04/06/25 1451 DD/ 1448 TD/TT: Social Work Administrator: us Adonis Hester DO [facility] Final [...] II, MD, PHD at 18-Feb-2025 10:23:07 AM [facility] Procedure Note Renuka Black MD - [...] signed by RENUKA BLACK II, MD, PHD [id number] 10:23:07 AM [facility] Amaya Steve VOICE COACH IMG OB US PROCEDURES Final Re sult * GLUCOSE 1 HOUR (02/17/2025 2:25 PM EDT) GLUCOSE 1 HOUR 109 <130 mg/dL TB 02/17/2025 2:25 PM EDT 02/17/2025 2:25 PM EDT Narrative [facility] - 02/17/2025 3:12 PM EDT Amaya Steve NP LAB BLOOD ORDERABLES Final Re sult [facility] * (ABNORMAL) ALL CBC WITH AUTO DIFF [...] 02/17/2025 2:42 PM EDT us Amaya Steve VOICE COACH [facility] Final Result Performing Organization Address [facility] de Phone Number [facility] TB * Pap Smear (11/30/2024 12:00 AM EST) Swab Cervical swab / Unknown Sylvia HEADLEY LAB CYTOLOGY ORDERABLES Final Re sult Performing Organization Address [facility] Co de Phone Number EXTERNAL LAB * THINPREP PAP AND HPV MRNA E6/E7 W/RFL HPV 16,18/45 (05/30/2023 10:04 AM EDT) Sylvia HEADLEY LAB BLOOD ORDERABLES Final Resul t Performing Organization Address [facility] de Phone Number EXTERNAL LAB from Last 3 Months or Most Recently Relevant to Health Maintenance Insurance [facility] MEDICAID Care Teams Risk Management Director Relationship Specialty Start Date End Date Sylvia Enriquez PA [address] [place] [address] [place] [address] PCP - [facility] 07/06/24
== END 2025-04-13 14:01 | disposition home or self-care (01) ==
LOC: US 04-20 08:37
PROVIDERS: Visit Provider Physician Assistant
DX: O26.893 Other specified pregnancy related conditions, third trimester (principal); O36.63X0 Maternal care for excessive fetal growth, third trimester, not applicable or unspecified; Z3A.35 35 weeks gestation of pregnancy
CPT/HCPCS: 76818

== ENCOUNTER 2025-04-16 17:04 | Outpatient (OUT) | payer OTHER, SELFPAY ==
--- OUTSIDE RECORDS SUMMARY | 2025-04-16 17:08 | XMS_ITS | CCD ---
Author Organization [facility] Care Team Providers Care Telephone Assembler Name Role Phone ROBBIN Garcia Primary Care Provider [phone] Dominic Hester Attending Provider Dominic Hester Attending Provider RADHA Camar[place] Emergency Provider ROBBIN Garcia Primary Care Provider [phone] RADHA [place] Emergency Provider [phone] MIR ., DR LAMB Attending Unavailable MIR ., DR LAMB Admitting Unavailable MISC, DR CARRILLO Primary Care Unavailable SHARIF, SEBASTIÁN Consulting Unavailable MIR ., DR LAMB Consulting Unavailable MIR ., DR LAMB Attending Unavailable MISC, DR CARRILLO Primary Care Unavailable MIR ., DR ALMB Admitting Unavailable MIR ., DR ALMB Consulting Unavailable MIR ., DR LAMB Attending [...] ARLETH ., ROGELIO Attending Unavailable ARLETH ., ORGELIO Admitting Unavailable ASHLEIGH ., FANG MCKENZIE Consulting Unavailabl e LOPEZ ZARAGOZA Consulting Unavailable ARLETH ., ROGELIO Attending Unavailable ARLETH ., ROGELIO Admitting Unavailable WEST, DR TOR Conard Consulting Unavailable MISC, DR CARRILLO Primary Care Unavailable ARLETH ., ROGELIO Consulting Unavailable DILIA Romero Attending Provider Dutch Mendez Unavailable ROBBIN Garcia Primary Care Provider Dominic Hester Attending Provider Mir, DO Dominic Attending Provider [phone] NO FAMILY, PHYSICIAN Primary Care Provider Unava ilable DO Dominic Hester Attending Provider [phone] Tupa, DO Malcolm Jimenez Emergency Provider Unavailable Primary Care Provider UnavailSylvia Chung Unavailable NO FAMILY, PHYSICIAN Primary Care Provider Unava ilable Fouzia Ale GARCIA Emergency Provider NO FAMILY, PHYSICIAN Primary Care Provider Unava ilable Tupa Malcolm MARLEY Emergency Provider FouziaAle bernard Attending Unavailable NO FAMILY, PHYSICIAN Primary Care Unavailable Fouzia Ale M Admitting Unavailable Dominic Hester Attending Unavailable NO FAMILY, PHYSICIAN Primary Care Unavailable Dominic Hester Admitting Unavailable TuMalcolm headley Admitting Unavailable TupaMalcolm Attending Unavailable NO FAMILY, PHYSICIAN Primary Care Unavailable Tupa, Malcolm M Admitting Unavailable Malcolm Gaston Attending Unavailable NO FAMILY, PHYSICIAN Primary Care Unavailable DOMINIC HESTER Attending Unavailable SYLVIA ROMERO Attending Unavailable DOMINIC HESTER Attending Unavailable HECTOR STEVE Attending Unavailable HECTOR STEVE Referring Unavailable DOMINIC HESTER Attending Unavailable DOMINIC HESTER Attending Unavailable DOMINIC HESTER Attending Unavailable SYLVIA ROMERO Attending Unavailable DOMINIC HESTER Attending Unavailable SYLVIA ROMERO Attending Unavailable DOMINIC HESTER Referring Unavailable Medications Current Medications Medication Drug Class(es) [...] Active ondansetron 4 mg disintegrating oral tablet (20 sources) Serotonin-3 Receptor Antagonist Start: 09-09-2024 End: 12-31-2024 take 1 tablet by mouth every six hours for nausea ondansetron ODT (Zofran-ODT) 4 MG disintegrating tablet Indications: confirmed by positive blood test ([facility]) , Nausea Take 1 tablet (4 mg) by mouth every 6 (six) hours if needed for nausea or vomiting for up to 30 doses 30 tablet 2 09/09/2024 Active polysaccharide iron complex 391 mg oral capsule (13 sources) Start: 02-21-2025 End: 02-21-2026 take 1 capsule by mouth once daily iron polysaccharides (ProFe) 391.3 (180 Fe) MG capsule Indications: Low iron Take 1 capsule (391.3 mg) by mouth Daily 30 capsule 11 02/21/2025 02/21/2026 Active Vit No.132-Bdgr-Ulloe ( Vitamin) 27 mg iron- 800 mcg tablet (7 sources) Start: 01-03-2023 take 1 tablet by mouth once daily Vit No.792-Osgj-Qqsjj ( Vitamin) 27 mg iron- 800 mcg tablet Active 1 TAB PO Daily January 03, 2023 12:00am Start: 01-03-2023 Vit N o.633-Gscg-Hpzsk ( Vitamin) 27 mg iron- 800 mcg tablet Active TAB TABLET January 02, 2023 11:00pm Start: 01-03-2023 Vit N o.412-Uunl-Lhjyu ( Vitamin) 27 mg iron- 800 mcg tablet Active TAB TABLET January 03, 2023 12:00am Vit-Fe Fumarate-FA ( Vitamins) 28-0.8 MG tablet (20 sources) Start: 09-09-2024 End: 09-09-2025 take 1 tablet by mouth once daily Vit-Fe Fumarate-FA ( Vitamins) 28-0.8 MG tablet Indications: confirmed by positive blood test ([facility]) Take 1 tablet by mouth Daily 30 tablet 11 09/09/2024 09/09/2025 Active Start: 09-09-2024 End: 09-09-2025 take 1 tablet [...] / HYDROcodone bitartrate 5 mg oral tablet (18 sources) Opioid Agonist Start: 05-14-2019 End: 06-09-2019 take 1 tablet by mouth every four to six hours as needed for pain Hydrocodone-Acetami nophen ([place]) 5-325 mg tablet Discontinued 1 TAB PO EVERY 4-6 HOURS as needed for pain 09 07May 14, 2019 June 09, 2019 9:24pm Start: 06-25-2017 End: 01-31-2018 take 1 tablet by mouth every four to six hours as needed for pain Hydrocodone-Acetaminophen ([place]) 5-325 mg tablet Discontinued 1 TAB PO EVERY 4-6 HOURS as needed for pain June 25, 2017 January 31, 2018 4:07pm [id number] 200 actuat albuterol 0.09 mg/actuat metered dose inhaler (9 sources) beta2-Adrenergic Agonist Start: 03-31-2019 End: 12-18-2019 take 1 puff(s) by inhalation every four to six hours as needed for wheezing Albuterol Sulfate (Proventil Hfa) 90 mcg/actuation Hfa Aerosol Inhaler Discontinued 2 PUFF INHALATION EVERY 4-6 HOURS as needed for Shortness Of Breath Or Wheezing March 31, 2019 12:00am December 18, 2019 10:37am with spacer cephalexin 500 mg oral capsule (8 sources) Cephalosporin Antibacterial Start: 08-02-2022 End: 01-03-2023 take 1 capsule by mouth twice daily Cephalexin 500 mg capsule Discontinued 500 MG PO Twice daily 25 07August 02, 2022 12:00am January 03, 2023 2:50pm dicyclomine hydrochloride 20 mg oral tablet (18 sources) Anticholinergic Start: 06-21-2021 End: 01-05-2022 take 1 tablet by mouth three times daily as needed for pain Dicyclomine 20 mg tablet Discontinued 20 MG PO Three times daily as needed for pain June 21, 2021 12:00am January 05, 2022 5:44pm Start: 08-02-2019 End: 09-16-2019 take 1 tablet by mouth four times daily Dicyclomine 20 mg Tablet Discontinued 20 MG PO Four times daily August 02, 2019 12:00am September 16, 2019 8:40pm doxepin hydrochloride 10 mg oral capsule (9 sources) Tricyclic Antidepressant Start: 10-30-2020 End: 01-05-2022 take 1 capsule by mouth once daily Doxepin 10 mg capsule Discontinued 10 MG PO Daily October 30, 2020 1:00am January 05, 2022 5:44pm doxycycline hyclate 100 mg oral capsule (20 [...] 2023 2:50pm Start: 12-18-2019 End: 10-30-2020 take 1 capsule by mouth twice daily Doxycycline Hyclate 100 mg capsule Discontinued 100 MG PO Twice daily December 18, 2019 12:00am October 30, 2020 10:35pm FLUoxetine 20 mg oral capsule (9 sources) Serotonin Reuptake Inhibitor Start: 10-30-2020 End: 01-05-2022 take 1 capsule by mouth once daily Fluoxetine 20 mg capsule Discontinued 20 MG PO Daily October 30, 2020 1:00am January 05, 2022 5:44pm ibuprofen 800 mg oral tablet (14 sources) [...] Start: 04-07-2023 take 1 tablet by mariluz every eight hours at mealtime as needed [...] 10/01/2024 Discontinued meloxicam 15 mg oral tablet (9 sources) Nonsteroidal Anti-inflammatory Drug Start: 06-25-2017 End: 01-31-2018 take 1 tablet by mouth once daily Meloxicam (Mobic) 15 mg tablet Discontinued 15 MG PO Daily June 25, 2017 12:00am January 31, 2018 4:07pm methocarbamol 500 mg oral tablet (9 sources) Muscle Relaxant Start: 06-25-2017 End: 01-31-2018 Methocarbamol (Robaxin) 500 mg Tablet Discontinued TABLET June 25, 2017 12:00am January 31, 2018 4:07pm methylPREDNISolone (12 sources) Corticosteroid Start: 03-09-2024 End: 06-29-2024 methylPREDNISolone [...] 2018 4:07pm metroNIDAZOLE 500 mg oral tablet (9 sources) Nitroimidazole Antimicrobial Start: 12-18-2019 End: 10-30-2020 take 1 tablet by mouth twice daily Metronidazole (Flagyl) 500 mg tablet Discontinued 500 MG PO Twice daily December 18, 2019 12:00am October 30, 2020 10:35pm naproxen 500 mg oral tablet (20 sources) Nonsteroidal Anti-inflammatory Drug Start: 10-30-2020 End: 01-03-2023 take 1 tablet by mouth twice daily as needed for pain Naproxen (Naprosyn) 500 mg tablet Discontinued 500 MG PO Twice daily as needed for pain August 18, 2022 1:00am January 03, 2023 2:50pm penicillin v potassium 500 mg oral tablet (7 sources) Start: 08-18-2022 End: 01-03-2023 take 1 tablet by mouth every six hours Penicillin V Potassium 500 mg tablet Discontinued 500 MG PO Q6H 40 August 18, 2022 1:00am January 03, 2023 2:50pm sulfamethoxazole 800 mg / trimethoprim 160 mg oral tablet (9 sources) Dihydrofolate Reductase Inhibitor Antibacterial, Sulfonamide Antimicrobial [...] Date Documented Da te Episodic/Chronic Administrative/social admission (9 sources) Worried well; Translations: [Person with feared health complaint in whom no diagnosis is made] 06-09-2019 Episodic Allergic reactions (8 sources) Allergic reaction to adhesive; Translations: [Other allergy, initial encounter] 08-02-2022 Episodic Anxiety disorders (1 source) Anxiety disorder, unspecified; Translations: [ANXIETY DISORDER UNSPECIFIED] Onset: 01-06-2023 Chronic Asthma (1 source) Unspecified asthma, uncomplicated; Translations: [UNSPECIFIED ASTHMA UNCOMPLICATED] Onset: 01-06-2023 Chronic Asthma (9 sources) Asthma 03-31-2019 Bacterial infection; unspecified site (9 sources) Chlamydial infection; Translations: [Chlamydial infection, unspecified] 09-16-2019 Episodic Disorders of teeth and jaw (7 sources) Dental caries; Translations: [Dental caries, unspecified] 08-18-2022 Episodic Female infertility (20 sources) Female infertility; Translations: [Female infertility, unspecified] Onset: 07-19-2024 07-19-2024 Chronic Hemorrhage during ; abruptio placenta; placenta previa (4 sources) Threatened ; Translations: [THREATENED ] Onset: 01-17-2023 Episodic Immunizations and screening for infectious disease (11 sources) At risk of sexually transmitted infection ; Translations: [Contact with and (suspected) exposure to infections with a predominantly sexual mode of transmission] 01-05-2022 Episodic Inflammatory diseases of female pelvic organs (9 sources) Acute pelvic inflammatory disease; Translations: [Acute parametritis and pelvic cellulitis] 12-18-2019 Episodic Menstrual disorders (20 sources) Dysmenorrhea; Translations: [Dysmenorrhea, unspecified] Onset: 07-31-2022 10-30-2020 Chronic Mood disorders (1 source) Major depressive disorder, single episode, unspecified; Translations: [SHARI DEPRESS D/O SINGLE EPIS UNS] Onset: 07-31-2022 Chronic Mood disorders (1 source) Mood disorders; Translations: [DEPRESSION UNSPECIFIED] Onset: 01-06-2023 Other aftercare (1 source) Other exterminator termite (current) drug therapy; Translations: [OTH BROADCAST SYSTEMS ENGINEER CURRENT DRUG THERAPY] Onset: 01-06-2023 Episodic Other complications of (7 sources) Non-viable ; Translations: [Other abnormal products of conception] 01-03-2023 Episodic Other complications of (1 source) Missed ; Translations: [MISSED ] Onset: 01-23-2023 Episodic Other complications of (4 sources) size does not accord with dates; Translations: [Uterine size-date discrepancy, unspecified trimester] 03-23-2025 Episodic Other complications of (2 sources) Excessive growth affecting management of mother; Translations: [Maternal care for excessive growth, third trimester, not applicable or unspecified] 04-06-2025 Episodic Other ear and sense organ disorders (1 source) Unspecified acute noninfective otitis externa, right ear Episodic Other female genital disorders (1 source) Abnormal uterine and vaginal bleeding, unspecified; Translations: [ABNORMAL UTERINE VAGINAL BLEED UNS] Onset: 07-31-2022 Chronic Other female genital disorders (1 source) Unspecified dyspareunia; Translations: [UNSPECIFIED DYSPAREUNIA] Onset: 07-31-2022 Chronic Other female genital disorders (20 sources) Pain in female genitalia on intercourse; Translations: [Unspecified dyspareunia] Onset: 03-11-2023 03-11-2023 Chronic Other female genital disorders (11 sources) Vaginal discharge; Translations: [Other specified noninflammatory disorders of vagina] 01-05-2022 Episodic Other injuries and conditions due to external causes (9 sources) Injury of head; Translations: [Unspecified injury of head, initial encounter] 01-31-2018 Episodic Other screening for suspected conditions (not mental disorders or infectious disease) (6 sources) Patient encounter status; Translations: [Encounter for other specified screening] 11-30-2024 Episodic Otitis media and related conditions (1 source) Acute suppurative otitis media without spontaneous rupture of ear drum, right ear Episodic Phlebitis; thrombophlebitis and thromboembolism (10 sources) Deep venous thrombosis; Translations: [Acute embolism and thrombosis of unspecified deep veins of unspecified lower extremity] Onset: 01-06-2023 06-25-2017 Episodic Residual codes; unclassified (1 source) Less than 8 weeks gestation of ; Translations: [< 8 WEEKS GESTATION ] Onset: 12-29-2022 Episodic Residual codes; unclassified (2 sources) Gestation period, 12 weeks; Translations: [12 weeks gestation of ] 11-02-2024 Episodic Residual codes; unclassified (2 sources) Gestation period, 16 weeks; Translations: [16 weeks gestation of ] 11-30-2024 Episodic Residual codes; unclassified (2 sources) Gestation period, 25 weeks; Translations: [25 weeks gestation of ] 01-31-2025 Episodic Residual codes; unclassified (2 sources) Gestation period, 28 weeks; Translations: [28 weeks gestation of ] 02-23-2025 Episodic Residual codes; unclassified (2 sources) Gestation period, 30 weeks; Translations: [30 weeks gestation of ] 03-09-2025 Episodic Residual codes; unclassified (2 sources) Gestation period, 32 weeks; Translations: [32 weeks gestation of ] 03-23-2025 Episodic Residual codes; unclassified (2 sources) Gestation period, 34 weeks; Translations: [34 weeks gestation of ] 04-06-2025 Episodic Skin and subcutaneous tissue infections (8 sources) Cellulitis; Translations: [Cellulitis, unspecified] 08-02-2022 Episodic Spontaneous (4 sources) Complete or unspecified spontaneous without complication; Translations: [COMPLETE/UNS SPONT AB W/O COMP] Onset: 01-03-2023 Episodic Substance-related disorders (2 sources) Nicotine dependence, other tobacco product, uncomplicated; Translations: [Nicotine dependence, cigarettes, uncomplicated] Onset: 07-31-2022 Chronic Superficial injury; contusion (9 sources) Contusion of rib; Translations: [Contusion of left front wall of thorax, initial encounter] 01-31-2018 Episodic Unclassified (9 sources) Fracture of toe 05-14-2019 Unclassified (1 source) ENDOMETRIO POST CUL DE SAC UNS DPTH; Translations: [ENDOMETRIO POST CUL DE SAC UNS DPTH] Onset: 07-31-2022 Urinary tract infections (9 sources) Urinary tract infectious disease; Translations: [Urinary tract infection, site not specified] 12-18-2019 Episodic Past or Other Problems Problem Classification Problem Date Documented Da te Episodic/Chronic Abdominal pain (20 sources) Chronic pelvic pain of female; Translations: [Pelvic and perineal pain] Onset: 05-28-2022 10-30-2020 Episodic Nausea and vomiting (20 sources) Nausea and vomiting; Translations: [Nausea with vomiting, unspecified] Onset: 03-11-2023 03-11-2023 Episodic Other gastrointestinal disorders (1 source) Peritoneal adhesions (postprocedural) (postinfection); Translations: [PERITONEAL ADHES POSTPROC POSTINF] Onset: 07-31-2022 Episodic Other gastrointestinal disorders (1 source) Intra-abdominal and pelvic swelling, mass and lump, unspecified site; Translations: [INTRA-ABD PELV SWELL MASS LUMP] Onset: 07-31-2022 Episodic Other and delivery including normal (20 sources) Encounter for supervision of normal , unspecified, first trimester; Translations: [] Onset: 12-29-2022 10-01-2024 Episodic Other skin disorders (20 sources) Scar of skin; Translations: [Scar conditions and fibrosis of skin] Onset: 03-11-2023 03-11-2023 Episodic Residual codes; unclassified (20 sources) Gestation period, 20 weeks; Translations: [20 weeks gestation of ] Onset: 12-28-2024 12-28-2024 Episodic Results Test Name Value Interpretation Reference Range Facility US OB BPP W NON-STRESS on 04-13-[address] [address] Ultrasound Report Signed Patient: BREANA CASAS MR#: [id number] : 1990 Acct:[id number] Age/Sex: 34 / F ADM Date: Loc: US Attending Dr: Sylvia Romero Ordering Physician: Sylvia Romero Date of Service: 04/13/25 Procedure(s): US OB BPP w non-stress Accession Number(s): [id number] cc: Sylvia Romero; Physician,Non-Staff MPaula The [address] [address] Patient Name: BREANA CASAS MRN: [facility]:[id number] date: 1990 Sex: F Assigned Patient Location: [place] [facility] [place]/Order Number: [id number] Exam Date: 04/13/2025 16:16 Report Date: 04/13/2025 16:17 At the request of: SYLVIA ROMERO Procedure: US OB BPP w non-stress Ultrasound biophysical profile HISTORY: Excessive growth Adequate breathing movement, gross body movement, tone and amniotic fluid volume for total score of 8 out of 8. The amniotic fluid index is 14.9cm within normal limits. The heart rate 144 bpm. US/US OB BPP w non-stress IMPRESSION: Adequate ultrasound biophysical profile Impression dictated by: Tanner Burleson M.D. 04/13/2025 4:17 PM Dictation Location: [place] [address] Electronically authenticated by: [id number] Y Date: 04/13/2025 16:17 Dictated By: Tanner Burleson D.O. Signed By: 04/13/25 1619 DD/ 1617 TD/TT: Head Field Hockey Coach: [facility] Radiology, Radiologist, MD - 04/13/[address] [address] Ultrasound Report Signed Patient: BREANA CASAS MR#: [id number] : 1990 Acct:[id number] Age/Sex: 34 / F ADM Date: Loc: US Attending Dr: Sylvia Romero Ordering Physician: Sylvia Romero Date of Service: 04/13/25 Procedure(s): US OB BPP w non-stress Accession Number(s): [id number] cc: Sylvia Romero; Physician,Non-Staff [place] [address] [id number] Patient Name: BREANA CASAS MRN: [id number] date: 1990 Sex: F Assigned Patient Location: [place] [facility] [place]ion/Order Number: [id number] Exam Date: 04/13/2025 16:16 Report Date: 04/13/2025 16:17 At the request of: SYLVIA ROMERO Procedure: US OB BPP w non-stress Ultrasound biophysical profile HISTORY: Excessive growth Adequate breathing movement, gross body movement, tone and amniotic fluid volume for total score of 8 out of 8. The amniotic fluid index is 14.9cm within normal limits. The heart rate 144 bpm. US/US OB BPP w non-stress IMPRESSION: Adequate ultrasound biophysical profile Impression dictated by: Tanner Burleson M.D. 04/13/2025 4:17 PM Dictation Location: [place] [address] Electronically authenticated by: [id number] Y Date: 04/13/2025 16:17 Dictated By: Tanner Burleson D.O. Signed By: 04/13/251618 DD/ 16 TD/TT: Head Field Hockey Coach: [facility] Radiology Study observation (narrative) [facility] US OB BPP W NON-STRESS Ordered By: Radiologist Radiology on 04-13-2025 [facility] Work Phone: US OB GROWTHon 04-06-[address] [address] Ultrasound Report Signed Patient: BREANA CASAS MR#: [id number] : 1990 Acct:[id number] Age/Sex: 34 / F ADM Date: 04/06/25 Loc: US Attending Dr: Dominic Hester D.O. Ordering Physician: Dominic Hester D.O. Date of Service: 04/06/25 Procedure(s): US OB growth Accession Number(s): [id number] cc: Dominic Hester D.O.; Physician,Non-Staff [place] The [address] [address] Patient Name: BREANA CASAS MRN: [facility]:[id number] date: 1990 Sex: F Assigned Patient Location: US Current Patient Location: US Accession/Order Number: [id number] Exam Date: 04/06/2025 14:46 Report Date: 04/06/2025 14:48 At the request of: DOMINIC HESTER DO Procedure: US OB growth Growth ultrasound. Reason for exam: size and consistent with dates. COMPARISON: None. TECHNIQUE: Transabdominal imaging of the gravid uterus was obtained. FINDINGS: Single live intrauterine 35 weeks 6 days by anatomic measurements. Appropriate growth by dating. Estimated weight is 2760 g which is the 73rd percentile. TAMIR is normal at 11.83 cm. heart rate 144 bpm. position is cephalic at time of scanning. US/US OB growth IMPRESSION: Single live intrauterine 35 weeks 6 days by anatomic measurements. Appropriate growth by dating. Impression dictated by: Seferino Tay Jr., D.O. 04/06/2025 2:48 PM Dictation Location: [place] [address] Electronically authenticated by: [id number] Y Date: 04/06/2025 14:48 Dictated By: Seferino Tay M.D. Signed By: 04/06/25 1451 DD/ 1448 TD/TT: Head Field Hockey Coach: [facility] Radiology, Radiologist, MD - 04/06/[address] [address] Ultrasound Report Signed Patient: BREANA CASAS MR#: [id number] : 1990 Acct:[id number] Age/Sex: 34 / F ADM Date: 04/06/25 Loc: US Attending Dr: Dominic Hester D.O. Ordering Physician: Dominic Hester D.O. Date of Service: 04/06/25 Procedure(s): US OB growth Accession Number(s): [id number] cc: Dominic Hester D.O.; Physician,Non-Staff [place] [id number] Patient Name: BREANA CASAS MRN: [facility]:[id number] date: 1990 Sex: F Assigned Patient Location: US Current Patient Location: US Accession/Order Number: [id number] Exam Date: 04/06/2025 14:46 Report Date: 04/06/2025 14:48 At the request of: DOMINIC HESTER DO Procedure: US OB growth Growth ultrasound. Reason for exam: size and consistent with dates. COMPARISON: None. TECHNIQUE: Transabdominal imaging of the gravid uterus was obtained. FINDINGS: Single live intrauterine 35 weeks 6 days by anatomic measurements. Appropriate growth by dating. Estimated weight is 2760 g which is the 73rd percentile. TAMIR is normal at 11.83 cm. heart rate 144 bpm. position is cephalic at time of scanning. US/US OB growth IMPRESSION: Single live intrauterine 35 weeks 6 days by anatomic measurements. Appropriate growth by dating. Impression dictated by: Seferino Tay Jr., D.O. 04/06/2025 2:48 PM Dictation Location: [place] [address] Electronically authenticated by: [id number] Y Date: 04/06/2025 14:48 Dictated By: Seferino Tay M.D. Signed By: 04/06/25 1451 DD/ 1448 TD/TT: Head Field Hockey Coach: [facility] Radiology Study observation (narrative) [facility] US OB GROWTHOrdered By: Shane ologist Radiology on 04-06-2025 [facility] Work Phone: Urinalysis macro (dipstick) panel (U)on 04-06-2025 Bilirubin, UA Negative Negative - 4(70) +++ mg/dL [facility] Blood, UA Negative Negative - 50 Brent/mcL [facility] Clarity, UA Clear [facility] Color, UA Yellow [facility] Glucose, UA Negative Negative - 1999(110) ++++ mg/dL [facility] Interpretation and review of laboratory results Normal [facility] Ketones, UA Negative Negative - 160(16) ++++ mg/dL [facility] Leukocytes, UA Positive Negative - 500+++ Kae/mcL [facility] Comment on above: small Nitrite, UA Negative Negative - Positive [facility] pH, UA 7 5 - 9 [facility] Protein, UA Negative Negative - 1999(20) ++++ mg/dL [facility] Spec Grav, UA 1.005 1 - 1.03 [facility] Urobilinogen, UA 0.2 0.2 - 12 mg/dL [facility] Urinalysis macro (dipstick) panel (U)on 03-23-2025 Bilirubin, UA Negative Negative - 4(70) +++ mg/dL [facility] Blood, UA Negative Negative - 50 Brent/mcL [facility] Clarity, UA Clear [facility] Color, UA Yellow [facility] Glucose, UA Negative Negative - 1999(110) ++++ mg/dL [facility] Interpretation and review of laboratory results Normal [facility] Ketones, UA Positive Negative - 160(16) ++++ mg/dL [facility] Comment on above: 15 Leukocytes, UA Negative Negative - 500+++ Kae/mcL [facility] Nitrite, UA Negative Negative - Positive [facility] pH, UA 7 5 - 9 [facility] Protein, UA Negative Negative - 1999(20) ++++ mg/dL [facility] Spec Grav, UA 1.015 1 - 1.03 [facility] Urobilinogen, UA 0.2 0.2 - 12 mg/dL [facility] Urinalysis macro (dipstick) panel (U)on 03-09-2025 Bilirubin, UA Negative Negative - 4(70) +++ mg/dL [facility] Blood, UA Negative Negative - 50 Brent/mcL [facility] Clarity, UA Clear [facility] Color, UA Yellow [facility] Glucose, UA Negative Negative - 1999(110) ++++ mg/dL [facility] Interpretation and review of laboratory results Abnormal [facility] Ketones, UA Negative Negative - 160(16) ++++ mg/dL [facility] Leukocytes, UA Positive Negative - 500+++ Kae/mcL [facility] Comment on above: small Nitrite, UA Negative Negative - Positive [facility] pH, UA 7 5 - 9 [facility] Protein, UA Negative Negative - 1999(20) ++++ mg/dL [facility] Spec Grav, UA 1.015 1 - 1.03 [facility] Urobilinogen, UA 0.2 0.2 - 12 mg/dL [facility] Urinalysis macro (dipstick) panel (U)on 02-23-2025 Bilirubin, UA Negative Negative - 4(70) +++ mg/dL [facility] Blood, UA Negative Negative - 50 Brent/mcL [facility] Clarity, UA Clear [facility] Color, UA Yellow [facility] Glucose, UA Negative Negative - 1999(110) ++++ mg/dL [facility] Interpretation and review of laboratory results Normal [facility] Ketones, UA Negative Negative - 160(16) ++++ mg/dL [facility] Leukocytes, UA Negative Negative - 500+++ Kae/mcL [facility] Nitrite, UA Negative Negative - Positive [facility] pH, UA 6.5 5 - 9 [facility] Protein, UA Negative Negative - 1999(20) ++++ mg/dL [facility] Spec Grav, UA 1.01 1 - 1.03 [facility] Urobilinogen, UA 0.2 0.2 - 12 mg/dL [facility] ALL CBC WITH AUTO DIFFon BASOPHILS ABSOLUTE AUTO 0 N [facility] Basophils/100 WBC (Bld) 0.2 % 0.2 - 2.0 % [facility] Eosinophils/100 WBC (Bld) 2.8 % 0.9 - 7.0 % [facility] Erythrocyte distribution width (RBC) [Ratio] 12.9 % 11.0 - 15.0 % [facility] Hematocrit (Bld) [Volume fraction] 30.5 % Low 36.0 - 48.0 % [facility] Hemoglobin (Bld) [Mass/Vol] 10.5 g/dL Low 12.0 - 16.0 g/dL [facility] IMMATURE GRANULOCYTES ABS AUTO 0.02 [facility] Immature granulocytes/100 WBC (Bld) 0.3 % 0.0 - 0.5 % [facility] Interpretation and review of laboratory results Abnormal [facility] LYMPHOCYTES ABSOLUTE AUTO 0.9 Low [facility] Lymphocytes/100 WBC (Bld) 15.7 % Low 20.5 - 60.0 % [facility] MCH (RBC) [Entitic mass] 33.2 pg 26.7 - 34.0 pg [facility] MCHC (RBC) [Mass/Vol] 34.4 g/dL 29.9 - 35.2 g/dL [facility] MCV (RBC) [Entitic vol] 96.5 fL 81.0 - 99.0 fL [facility] MONOCYTES ABSOLUTE AUTO 0.4 N [facility] Monocytes/100 WBC (Bld) 7.7 % 1.7 - 12.0 % [facility] NEUTROPHILS ABSOLUTE AUTO 4.2 [facility] Neutrophils/100 WBC (Bld) 73.3 % 43.0 - 75.0 % [facility] Platelet mean volume (Bld) [Entitic vol] 9.6 fL 9.5 - 13.5 fL [facility] TBH EO # 0.2 [facility] TBH PLT 167 [facility]H RBC 3.16 Low [facility] TBH WBC 5.7 [facility] CLINISYNC [facility] US OB LIMITED 1+ FETUSESon 0 - US OB LIMITED 1+ FETUSES EXAM: US OB LIMITED 1+ FETUSES HISTORY: [...] II, MD, PHD at 18-Feb-2025 10:23:07 AM [facility] Normal Not Available Comment on above: Order Comment: US OB INCOMPLETE ANATOMY Estimated Date of Delivery: 05/12/25 Gestational Age as of 01/31/2025: 25w4d Alanine aminotransferase [En zymatic activity/volume] in Serum or PlasmaOrdered By: Malcolm Gaston on 02-10-2025 ALT [Catalytic activity/Vol] Alanine aminotransferase [Enzymatic activity/volume] in Serum or Plasma 7-52 [facility] Albumin [Mass/volume] in Ser um or Plasma by Bromocresol green (BCG) dye binding methoOrdered By: Malcolm Gaston on 02-10-2025 Albumin BCG dye [Mass/Vol] Albumin [Mass/volume] in Serum or Plasma by Bromocresol green (BCG) dye binding metho 3.5-5.7 [facility] Alkaline phosphatase [Enzyma tic activity/volume] in Serum or PlasmaOrdered By: Malcolm Gaston on 02-10-2025 ALP [Catalytic activity/Vol] Alkaline phosphatase [Enzymatic activity/volume] in Serum or Plasma 34-104 [facility] Appearance of UrineOrdered B y: Malcolm Gaston on 02-10-2025 Appearance (U) Urine appearance Clear [facility] Aspartate aminotransferase [ Enzymatic activity/volume] in Serum or PlasmaOrdered By: Malcolm Gaston on 02-10-2025 AST [Catalytic activity/Vol] Aspartate aminotransferase [Enzymatic activity/volume] in Serum or Plasma 13-39 [facility] Basic Metabolic Panelon Anion gap [Moles/Vol] 7.9 mmol/L Normal 6.0-15.0 [facility] Comment on above: Performed By: #### C BC, HEPATIC, BMP, LIPASE #### [facility] [address] [place] [address] [place] Calcium [Mass/Vol] 8.4 mg/dL Low 8.6-10.3 [facility] Comment on above: Performed By: #### C BC, HEPATIC, BMP, LIPASE #### [facility] [address] [place] [id number] [place] Chloride [Moles/Vol] 107 mmol/L Normal 98-107 [facility] Comment on above: Performed By: #### C BC, HEPATIC, BMP, LIPASE #### [facility] [address] [place] [id number] [place] CO2 [Moles/Vol] 24.8 mmol/L Normal 21.0-31.0 [facility] Comment on above: Performed By: #### C BC, HEPATIC, BMP, LIPASE #### [facility] [address] [place] [address] [place] Creatinine [Mass/Vol] 0.56 mg/dL Low 0.60-1.20 [facility] Comment on above: Performed By: #### C BC, HEPATIC, BMP, LIPASE #### [facility] [address] [place] [address] [place] Creatinine Clr Calc Pharmacy 136.70 Normal [facility] Comment on above: Performed By: #### C BC, HEPATIC, BMP, LIPASE #### [facility] [address] [place] [address] [place] GFR/1.73 sq M.predicted MDRD (S/P/Bld) [Vol rate/Area] mL/min/{1.73_m2} Normal [facility] Comment on above: Performed By: #### C BC, HEPATIC, BMP, LIPASE #### [address] Glucose [Mass/Vol] 75 mg/dL Normal 70-100 [facility] Comment on above: Result Comment: [facility] Glucose Reference Range is dependent on time and content of last meal. Glucose of more than 200 mg/dL in a nonstressed, ambulatory subject supports the diagnosis of Diabetes Mellitus. ADA recommended reference range Performed By: #### C BC, HEPATIC, BMP, LIPASE #### [address] Potassium [Moles/Vol] 3.7 mmol/L Normal 3.5-5.1 [facility] Comment on above: Performed By: #### C BC, HEPATIC, BMP, LIPASE #### [facility] [address] [place] [address] [place] Sodium [Moles/Vol] 136 mmol/L Normal 136-145 [facility] Comment on above: Performed By: #### C BC, HEPATIC, BMP, LIPASE #### [facility] [address] Urea nitrogen [Mass/Vol] 6 mg/dL Low 7-25 [facility] Comment on above: Performed By: #### C BC, HEPATIC, BMP, LIPASE #### [facility] [address] [place] [id number] [facility] Basophils Auto (Bld) [#/Vol] Ordered By: Malcolm Gaston on 02-10-2025 Basophils (Bld) [#/Vol] Automated basoph il count 0.0-0.2 [facility] Basophils/100 WBC Auto (Bld) Ordered By: Malcolm Gaston on 02-10-2025 Basophils/100 WBC (Bld) Automated basophil % . [facility] Bilirubin Test strip Ql (U)O rdered By: Malcolm Gaston on 02-10-2025 Bilirubin Ql (U) Bilirubin.total [Presence] in Urine by Test strip Negative [facility] Bilirubin.direct [Mass/volum e] in Serum or PlasmaOrdered By: Malcolm Gaston on 02-10-2025 Bilirubin.direct [Mass/Vol] Bilirubin.direct [Mass/volume] in Serum or Plasma 0.03-0.18 [facility] Bilirubin.total [Mass/volume ] in Serum or PlasmaOrdered By: Malcolm Gaston on 02-10-2025 Bilirubin [Mass/Vol] Bilirubin.total [Mass/volume] in Serum or Plasma 0.3-1.0 [facility] Calcium [Mass/volume] in Ser um or PlasmaOrdered By: Malcolm Gaston on 02-10-2025 Calcium [Mass/Vol] Calcium [Mass/volume] in Serum or Plasma Low 8.6-10.3 [facility] Carbon dioxide, total [Moles /volume] in Serum or PlasmaOrdered By: Malcolm Gaston on 02-10-2025 CO2 [Moles/Vol] Carbon dioxide, total [Moles/volume] in Serum or Plasma 21.0-31.0 [facility] Chloride [Moles/volume] in S mehdi or PlasmaOrdered By: Malcolm Gaston on 02-10-2025 Chloride [Moles/Vol] Chloride [Moles/volume] in Serum or Plasma 98-107 [facility] Color Auto (U)Ordered By: Fang Gaston on 02-10-2025 Color (U) Color of Urine by Auto Yellow [facility] Complete Blood Count Auto Di ffon 02-10-2025 Basophils (Bld) [#/Vol] 0.0 10*3/uL Normal 0.0-0.2 [facility] Comment on above: Result Comment: PERF ORMED BY: [place] [address] PATHOLOGIST [employer] BRANDI GONZALEZ M.D. Performed By: #### C BC, HEPATIC, BMP, LIPASE #### [address] Basophils/100 WBC (Bld) 0.5 % Normal . [facility] Comment on above: Performed By: #### C BC, HEPATIC, BMP, LIPASE #### [address] Eosinophils (Bld) [#/Vol] 0.2 10*3/uL Normal 0.0-0.45 [facility] Comment on above: Performed By: #### C BC, HEPATIC, BMP, LIPASE #### [address] Eosinophils/100 WBC (Bld) 3.8 % Normal . [facility] Comment on above: Performed By: #### C BC, HEPATIC, BMP, LIPASE #### [address] Erythrocyte distribution width (RBC) [Ratio] 13.1 % Normal 11.9-15.3 [facility] Comment on above: Performed By: #### C BC, HEPATIC, BMP, LIPASE #### [address] Hematocrit (Bld) [Volume fraction] 32.0 % Low 34.0-46.4 [facility] Comment on above: Performed By: #### C BC, HEPATIC, BMP, LIPASE #### [address] Hemoglobin (Bld) [Mass/Vol] 11.3 g/dL Low 11.8-15.4 [facility] Comment on above: Performed By: #### C BC, HEPATIC, BMP, LIPASE #### [address] Lymphocytes (Bld) [#/Vol] 0.9 10*3/uL Low 1.00-4.8 [facility] Comment on above: Performed By: #### C BC, HEPATIC, BMP, LIPASE #### [address] Lymphocytes/100 WBC (Bld) 16.5 % Normal . [facility] Comment on above: Performed By: #### C BC, HEPATIC, BMP, LIPASE #### [address] MCH (RBC) [Entitic mass] 33.9 pg Normal 24.7-34.3 [facility] Comment on above: Performed By: #### C BC, HEPATIC, BMP, LIPASE #### [address] MCV (RBC) [Entitic vol] 95.5 fL Normal 80-100 [facility] Comment on above: Performed By: #### C BC, HEPATIC, BMP, LIPASE #### [address] Mean Corpuscular HGB Conc 35.5 g/dL High 32.0-35.0 [facility] Comment on above: Performed By: #### C BC, HEPATIC, BMP, LIPASE #### [address] Monocytes (Bld) [#/Vol] 0.4 10*3/uL Normal 0.0-0.8 [facility] Comment on above: Performed By: #### C BC, HEPATIC, BMP, LIPASE #### [address] Monocytes/100 WBC (Bld) 20.48 % High 0.00-20.00 [facility] Comment on above: Result Comment: For adults in ED, MDW > 20.0 may be associated with a higher risk of sepsis during the first 12 hrs of hospital admission Performed By: #### C BC, HEPATIC, BMP, LIPASE #### [address] Monocytes/100 WBC (Bld) 7.7 % Normal . T abby [facility] Comment on above: Performed By: #### C BC, HEPATIC, BMP, LIPASE #### [address] Neutrophils (Bld) [#/Vol] 3.7 10*3/uL Normal 1.8-7.7 [facility] Comment on above: Performed By: #### C BC, HEPATIC, BMP, LIPASE #### [address] Neutrophils/100 WBC (Bld) 71.5 % Normal . [facility] Comment on above: Performed By: #### C BC, HEPATIC, BMP, LIPASE #### [address] NRBC% 0.0 /100{WBC} Normal 0-0.5 [facility] Comment on above: Performed By: #### C BC, HEPATIC, BMP, LIPASE #### [address] Platelet mean volume (Bld) [Entitic vol] 7.9 fL Normal 6.3-10.7 [facility] Comment on above: Performed By: #### C BC, HEPATIC, BMP, LIPASE #### [address] Platelets (Bld) [#/Vol] 203 10*3/uL Normal 150-450 [facility] Comment on above: Performed By: #### C BC, HEPATIC, BMP, LIPASE #### [address] RBC (Bld) [#/Vol] 3.35 10*6/uL Low 3.60-5.00 [facility] Comment on above: Performed By: #### C BC, HEPATIC, BMP, LIPASE #### [address] WBC (Bld) [#/Vol] 5.2 10*3/uL Normal 3.8-11.6 [facility] Comment on above: Performed By: #### C BC, HEPATIC, BMP, LIPASE #### [facility] [address] Creatinine [Mass/volume] in Serum or PlasmaOrdered By: Malcolm Gaston on 02-10-2025 Creatinine [Mass/Vol] Creatinine [Mass/volume] in Serum or Plasma Low 0.60-1.20 [facility] Dipstick and Microscopicon 0 02-10-2025 Appearance (U) Clear Normal Clear [facility] Comment on above: Order Comment: Name Collection Type:: Clean-Voided Midstream Performed By: #### C BC, HEPATIC, BMP, LIPASE #### [facility] [address] Bacteria,Urine Rare Normal None Seen [facility] Comment on above: Order Comment: Name Collection Type:: Clean-Voided Midstream Performed By: #### C BC, HEPATIC, BMP, LIPASE #### [facility] [address] Bilirubin,Urine Negative Normal Negative [facility] Comment on above: Order Comment: Name Collection Type:: Clean-Voided Midstream Performed By: #### C BC, HEPATIC, BMP, LIPASE #### [facility] [address] Color (U) Light-Yellow Normal Yellow [facility] Comment on above: Order Comment: Name Collection Type:: Clean-Voided Midstream Performed By: #### C BC, HEPATIC, BMP, LIPASE #### [facility] [address] Glucose Ql (U) Normal Normal Normal [facility] Comment on above: Order Comment: Name Collection Type:: Clean-Voided Midstream Performed By: #### C BC, HEPATIC, BMP, LIPASE #### [facility] [address] [place] [address] [place] Hyaline Casts,Urine None Normal 0-8 [facility] Comment on above: Order Comment: Name Collection Type:: Clean-Voided Midstream Performed By: #### C BC, HEPATIC, BMP, LIPASE #### [facility] [address] Ketones Ql (U) 1+ High Negative [facility] Comment on above: Order Comment: Name Collection Type:: Clean-Voided Midstream Performed By: #### C BC, HEPATIC, BMP, LIPASE #### [facility] [address] Leukocyte esterase Test strip Ql (U) 2+ High Negative [facility] Comment on above: Order Comment: Name Collection Type:: Clean-Voided Midstream Performed By: #### C BC, HEPATIC, BMP, LIPASE #### [facility] [address] Mucus,Urine 2+ Critically abnormal [facility] Comment on above: Order Comment: Name Collection Type:: Clean-Voided Midstream Result Comment: PERF ORMED BY: [place] [address] PATHOLOGIST [employer] BRANDI GONZALEZ M.D. Performed By: #### C BC, HEPATIC, BMP, LIPASE #### [address] Nitrite,Urine Negative Normal Negative [facility] Comment on above: Order Comment: Name Collection Type:: Clean-Voided Midstream Performed By: #### C BC, HEPATIC, BMP, LIPASE #### [address] Occult Blood,Urine Negative Normal Negative [facility] Comment on above: Order Comment: Name Collection Type:: Clean-Voided Midstream Result Comment: PERF ORMED BY: [place] [address] PATHOLOGIST [employer] BRANDI GONZALEZ M.D. Performed By: #### C BC, HEPATIC, BMP, LIPASE #### [place] [address] [place] pH (U) 6.5 [pH] Normal 5.0-9.0 [facility] Comment on above: Order Comment: Name Collection Type:: Clean-Voided Midstream Performed By: #### C BC, HEPATIC, BMP, LIPASE #### [facility] [address] Protein,Urine Negative Normal Negative [facility] Comment on above: Order Comment: Name Collection Type:: Clean-Voided Midstream Performed By: #### C BC, HEPATIC, BMP, LIPASE #### [address] RBC,Urine 1-2 Normal 0-4 [facility] Comment on above: Order Comment: Name Collection Type:: Clean-Voided Midstream Performed By: #### C BC, HEPATIC, BMP, LIPASE #### [address] Specificy [place],Urine 1.018 Normal 1.001-1.030 [facility] Comment on above: Order Comment: Name Collection Type:: Clean-Voided Midstream Performed By: #### C BC, HEPATIC, BMP, LIPASE #### [address] Squamous Epithelial Cell,Urine 5-9 High 0-2 [facility] Comment on above: Order Comment: Name Collection Type:: Clean-Voided Midstream Performed By: #### C BC, HEPATIC, BMP, LIPASE #### [address] Urobilinogen,Urine Normal Normal Normal [facility] Comment on above: Order Comment: Name Collection Type:: Clean-Voided Midstream Performed By: #### C BC, HEPATIC, BMP, LIPASE #### [address] WBC,Urine 3-4 Normal 0-4 [facility] Comment on above: Order Comment: Name Collection Type:: Clean-Voided Midstream Performed By: #### C BC, HEPATIC, BMP, LIPASE #### [place] [address] [place] Eosinophils Auto (Bld) [#/Vo l]Ordered By: Malcolm Gaston on 02-10-2025 Eosinophils (Bld) [#/Vol] Automated eosinophil count 0.0-0.45 [facility] Eosinophils/100 WBC Auto (Bl d)Ordered By: Malcolm Gaston on 02-10-2025 Eosinophils/100 WBC (Bld) Automated eosinophil % . [facility] Erythrocyte distribution wid th Auto (RBC) [Ratio]Ordered By: Malcolm Gaston on 02-10-2025 Erythrocyte distribution width (RBC) [Ratio] Erythrocyte distribution width [Ratio] by Automated count 11.9-15.3 [facility] Globulin Calc (S) [Mass/Vol] Ordered By: Malcolm Gaston on 02-10-2025 Globulin (S) [Mass/Vol] Serum globulin measurement by calculation (mass/volume) [facility] Glucose [Mass/volume] in Ser um or PlasmaOrdered By: Malcolm Gaston on 02-10-2025 Glucose [Mass/Vol] Glucose [Mass/volume] in Serum or Plasma 70-100 [facility] Comment on above: ADA recommended refe rence rangeRandom Glucose Reference Range is dependent on time and content of last meal. Glucose of more than 200 mg/dL in a nonstressed, ambulatory subject supports the diagnosis of Diabetes Mellitus. Glucose [Mass/volume] in Uri ne by Test stripOrdered By: Malcolm Gaston on 02-10-2025 Glucose Test strip (U) [Mass/Vol] Glucose [Mass/volume] in Urine by Test strip Normal [facility] Hematocrit Auto (Bld) [Volum e fraction]Ordered By: Malcolm Gaston on 02-10-2025 Hematocrit (Bld) [Volume fraction] Hematocrit [Volume Fraction] of Blood by Automated count Low 34.0-46.4 [facility] Hemoglobin Test strip Ql (U) Ordered By: Malcolm Gaston on 02-10-2025 Hemoglobin Ql (U) Hemoglobin [Presence] in Urine by Test strip Negative [facility] Hemoglobin [Mass/volume] in BloodOrdered By: Malcolm Gaston on 02-10-2025 Hemoglobin (Bld) [Mass/Vol] Hemoglobin [Mass/volume] in Blood Low 11.8-15.4 [facility] Hepatic Panelon 02-10-2025 Albumin [Mass/Vol] 3.6 g/dL Normal 3.5-5.7 [facility] Comment on above: Performed By: #### C BC, HEPATIC, BMP, LIPASE #### [address] Albumin/Globulin [Mass ratio] 1.4 {ratio} Normal [facility] Comment on above: Performed By: #### C BC, HEPATIC, BMP, LIPASE #### [facility] [address] ALP [Catalytic activity/Vol] 74 U/L Normal 34-104 [facility] Comment on above: Performed By: #### C BC, HEPATIC, BMP, LIPASE #### [address] ALT [Catalytic activity/Vol] 13 U/L Normal 7-52 [facility] Comment on above: Performed By: #### C BC, HEPATIC, BMP, LIPASE #### [address] AST [Catalytic activity/Vol] 17 U/L Normal 13-39 [facility] Comment on above: Performed By: #### C BC, HEPATIC, BMP, LIPASE #### [address] Bilirubin [Mass/Vol] 0.4 mg/dL Normal 0.3-1.0 [facility] Comment on above: Performed By: #### C BC, HEPATIC, BMP, LIPASE #### [address] Bilirubin,Indirect 0.3 mg/dL Normal [facility] Comment on above: Performed By: #### C BC, HEPATIC, BMP, LIPASE #### [address] Bilirubin.indirect [Mass/Vol] 0.10 mg/dL Normal 0.03-0.18 [facility] Comment on above: Performed By: #### C BC, HEPATIC, BMP, LIPASE #### [address] Globulin (S) [Mass/Vol] 2.6 g/dL Normal T he [facility] Comment on above: Performed By: #### C BC, HEPATIC, BMP, LIPASE #### [address] [place] [address] [place] Protein [Mass/Vol] 6.2 g/dL Low 6.4-8.9 [facility] Comment on above: Performed By: #### C BC, HEPATIC, BMP, LIPASE #### [address] Ketones Test strip Ql (U)Ord ered By: Malcolm Gaston on 02-10-2025 Ketones Ql (U) Ketones [Presence] in Urine by Test strip High Negative [facility] Leukocyte esterase [Presence ] in Urine by Test stripOrdered By: Malcolm Gaston on 02-10-2025 Leukocyte esterase Test strip Ql (U) Leukocyte esterase [Presence] in Urine by Test strip High Negative [facility] Leukocytes [#/volume] correc ira for nucleated erythrocytes in Blood by Automated counOrdered By: Malcolm Gaston on 02-10-2025 WBC corrected for nucl RBC Auto (Bld) [#/Vol] Leukocytes [#/volume] corrected for nucleated erythrocytes in Blood by Automated coun 3.8-11.6 [facility] Lipaseon 02-10-2025 Lipase [Catalytic activity/Vol] 21.0 U/L Normal 11.0-82.0 [facility] Comment on above: Result Comment: PERF ORMED BY: [place] [address] PATHOLOGIST [employer] BRANDI GONZALEZ M.D. Performed By: #### C BC, HEPATIC, BMP, LIPASE #### [address] Lipase [Enzymatic activity/v olume] in Serum or PlasmaOrdered By: Malcolm Gaston on 02-10-2025 Lipase [Catalytic activity/Vol] Lipase [Enzymatic activity/volume] in Serum or Plasma 11.0-82.0 [facility] Lymphocytes Auto (Bld) [#/Vo l]Ordered By: Malcolm Gaston on 02-10-2025 Lymphocytes (Bld) [#/Vol] Lymphocytes [#/volume] in Blood by Automated count Low 1.00-4.8 [facility] Lymphocytes/100 WBC Auto (Bl d)Ordered By: Malcolm Gaston on 02-10-2025 Lymphocytes/100 WBC (Bld) Lymphocytes/100 leukocytes in Blood by Automated count . [facility] MCH Auto (RBC) [Entitic mass ]Ordered By: Malcolm Gaston on 02-10-2025 MCH (RBC) [Entitic mass] MCH [Entitic mass] by Automated count 24.7-34.3 [facility] MCHC Auto (RBC) [Mass/Vol]Or dered By: Malcolm Gaston on 02-10-2025 MCHC (RBC) [Mass/Vol] MCHC [Mass/volume] by Automated count High 32.0-35.0 [facility] MCV Auto (RBC) [Entitic vol] Ordered By: Malcolm Gaston on 02-10-2025 MCV (RBC) [Entitic vol] MCV [Entitic vol ume] by Automated count 80-100 [facility] Monocyte distribution width [Entitic volume] in Blood by AutomatedOrdered By: Malcolm Gaston on 02-10-2025 Monocyte distribution width Auto (Bld) [Entitic vol] Monocyte distribution width [Entitic volume] in Blood by Automated High 0.00-20.00 [facility] Comment on above: For adults in ED, MD W > 20.0 may be associated with a higher risk of sepsis during the first 12 hrs of hospital admission Monocytes Auto (Bld) [#/Vol] Ordered By: Malcolm Gaston on 02-10-2025 Monocytes (Bld) [#/Vol] Automated blood monocyte count 0.0-0.8 [facility] Monocytes/100 WBC Auto (Bld) Ordered By: Malcolm Gaston on 02-10-2025 Monocytes/100 WBC (Bld) Automated monocyte % . [facility] Neutrophils Auto (Bld) [#/Vo l]Ordered By: Malcolm Gaston on 02-10-2025 Neutrophils (Bld) [#/Vol] Neutrophils [#/volume] in Blood by Automated count 1.8-7.7 [facility] Neutrophils/100 WBC Auto (Bl d)Ordered By: Malcolm Gaston on 02-10-2025 Neutrophils/100 WBC (Bld) Automated neutrophil % . [facility] Nitrite Test strip Ql (U)Ord ered By: Malcolm Gaston on 02-10-2025 Nitrite Ql (U) Nitrite [Presence] in Urine by Test strip Negative [facility] No Panel InformationOrdered By: Malcolm Gaston on 02-10-2025 Estimated GFR (CKD-EPI) > 60.0 mL/Min [facility] Creatinine Clearance (Chem 136.70 [facility] Nucleated erythrocytes [Pres ence] in Blood by Automated countOrdered By: Malcolm Gaston on 02-10-2025 Nucleated RBC Auto Ql (Bld) Nucleated erythrocytes [Presence] in Blood by Automated count 0-0.5 [facility] Platelet mean volume Auto (B ld) [Entitic vol]Ordered By: Malcolm Gaston on 02-10-2025 Platelet mean volume (Bld) [Entitic vol] Platelet mean volume [Entitic volume] in Blood by Automated count 6.3-10.7 [facility] Platelets Auto (Bld) [#/Vol] Ordered By: Malcolm Gaston on 02-10-2025 Platelets (Bld) [#/Vol] Platelets [#/vol ume] in Blood by Automated count 150-450 [facility] Potassium [Moles/volume] in Serum or PlasmaOrdered By: Malcolm Gaston on 02-10-2025 Potassium [Moles/Vol] Potassium [Moles/volume] in Serum or Plasma 3.5-5.1 [facility] Protein Test strip (U) [Mass /Vol]Ordered By: Malcolm Gaston on 02-10-2025 Protein (U) [Mass/Vol] Protein [Mass/volume] in Urine by Test strip Negative [facility] Protein [Mass/volume] in Ser um or PlasmaOrdered By: Malcolm Gaston on 02-10-2025 Protein [Mass/Vol] Protein [Mass/volume] in Serum or Plasma Low 6.4-8.9 [facility] RBC Auto (Bld) [#/Vol]Ordere d By: Malcolm Gaston on 02-10-2025 RBC (Bld) [#/Vol] Erythrocytes [#/volume] in Blood by Automated count Low 3.60-5.00 [facility] Serum or plasma albumin/glob ulin mass ratioOrdered By: Malcolm Gaston on 02-10-2025 Albumin/Globulin [Mass ratio] Serum or plasma albumin/globulin mass ratio [facility] Serum or plasma anion gap de terminationOrdered By: Malcolm Gaston on 02-10-2025 Anion gap [Moles/Vol] Serum or plasma anion gap determination 6.0-15.0 [facility] Serum or plasma non-glucuron idated bilirubin measurement (mass/volume)Ordered By: Malcolm Gaston on 02-10-2025 Bilirubin.indirect [Mass/Vol] Serum or plasma non-glucuronidated bilirubin measurement (mass/volume) [facility] Sodium [Moles/volume] in Ser um or PlasmaOrdered By: Malcolm Gaston on 02-10-2025 Sodium [Moles/Vol] Sodium [Moles/volume] in Serum or Plasma 136-145 [facility] Specific gravity Test strip (U) [Rel density]Ordered By: Malcolm Gaston on 02-10-2025 Specific gravity (U) [Rel density] Specific gravity of Urine by Test strip 1.001-1.030 [facility] Urea nitrogen [Mass/volume] in Serum or PlasmaOrdered By: Malcolm Gaston on 02-10-2025 Urea nitrogen [Mass/Vol] Urea nitrogen [Mass/volume] in Serum or Plasma Low 7-25 [facility] Urobilinogen Test strip (U) [Mass/Vol]Ordered By: Malcolm Gaston on 02-10-2025 Urobilinogen (U) [Mass/Vol] Urobilinogen [Mass/volume] in Urine by Test strip Normal [facility] WBC Auto (Bld) [#/Vol]Ordere d By: Malcolm Gaston on 02-10-2025 WBC (Bld) [#/Vol] Leukocytes [#/volume] in Blood by Automated count 3.8-11.6 [facility] pH Test strip (U)Ordered By: Malcolm Gaston on 02-10-2025 pH (U) pH of Urine by Test strip 5.0-9.0 [facility] Urinalysis macro (dipstick) panel (U)on 01-31-2025 Bilirubin, UA Negative Negative - 4(70) +++ mg/dL [facility] Blood, UA Negative Negative - 50 Brent/mcL [facility] Clarity, UA Clear [facility] Color, UA Yellow [facility] Glucose, UA Negative Negative - 1999(110) ++++ mg/dL [facility] Interpretation and review of laboratory results Abnormal [facility] Ketones, UA Negative Negative - 160(16) ++++ mg/dL [facility] Leukocytes, UA Positive Negative - 500+++ Kae/mcL [facility] Comment on above: small Nitrite, UA Negative Negative - Positive [facility] pH, UA 6 5 - 9 [facility] Protein, UA Negative Negative - 1999(20) ++++ mg/dL [facility] Spec Grav, UA 1.02 1 - 1.03 [facility] Urobilinogen, UA 0.2 0.2 - 12 mg/dL [facility] US OB 14+ WEEKS ANATOMY SCAN on 12-28-2024 US OB 14+ WEEKS ANATOMY SCAN EXAM: US OB 14+ WEEKS ANATOMY SCAN HISTORY: anatomy. COMPARISON: None available. TECHNIQUE: Two-dimensional transabdominal grayscale ultrasound imaging of the pelvis was performed. FINDINGS: Gestation: Single Presentation: Cephalic Cardiac Activity: 144 beats per minute Placental Location: Anterior with no sonographic abnormalities identified. Distance from Placental Tip to Cervix: 6.4 cm Cervical Length: 4.8 cm Amniotic Fluid: Appears adequate MEASUREMENTS: BPD: 5.1 cm EGA: 21 weeks 3 days HC: 18.4 cm EGA: 20 weeks 6 days AC: 16.0 cm EGA: 21 weeks 1 days FL: 3.5 cm EGA: 21 weeks 0 days HC/AC Ratio: 1.15 The gestational age by today's ultrasound is 21 weeks 1 days (+/- 10 days gestation). Estimated Weight: 397 grams, +/- 59 grams ( 0 lb 14 oz). Weight Percentile for gestational age: 56 % ANATOMY C-Spine: Limited T-Spine: Limited L-Spine: Limited Sacrum: Limited Four Chamber Heart: Unremarkable LVOT: Unremarkable RVOT: Unremarkable Stomach: Unremarkable Kidneys: Unremarkable Bladder: Unremarkable Diaphragm: Unremarkable Cord insertion: Unremarkable Cord vessels: Three Lateral Ventricles: Unremarkable Cerebellum: Unremarkable Cisterna Magna: Unremarkable Posterior Fossa: Unremarkable Right Femur: Unremarkable Left Femur: Unremarkable Right Tib/Fib: Unremarkable Left Tib/Fib: Unremarkable Right Rad/Ulnar: Unremarkable Left Rad/Ulnar: Unremarkable Right Humerus: Unremarkable Left Humerus: Unremarkable Nose/Lips: Not visualized Orbits: Unremarkable IMPRESSION: 1. Single, live intrauterine gestation 20 weeks, 6 days by LMP. Today's ultrasound measurements correlate with a gestational age of 21 weeks 1 days. Estimated weight is 397 grams, +/- 59 grams ( 0 lb 14 oz) which correlates to 56 %. JONN is 05/09/2025. 2. Unremarkable anatomy with limited visualization of the spine and nose/lips. A short-term follow-up ultrasound is recommended. Electronically Signed:Electronicall y signed by RENUKA BLACK II, MD, PHD at 28-Dec-2024 09:45:37 PM [facility] Normal Not Available Comment on above: Order Comment: US OB ANATOMY SINGLE W US OB CERVICAL LENGTH Estimated Date of Delivery: 05/12/25 Gestational Age as of 11/30/2024: 16w5d Urinalysis macro (dipstick) panel (U)on 12-28-2024 Bilirubin, UA Negative Negative - 4(70) +++ mg/dL [facility] Blood, UA Positive Negative - 50 Brent/mcL [facility] Comment on above: trace Clarity, UA Clear [facility] Color, UA Yellow [facility] Glucose, UA Negative Negative - 2000(110) ++++ mg/dL [facility] Interpretation and review of laboratory results Abnormal [facility] Ketones, UA Negative Negative - 160(16) ++++ mg/dL [facility] Leukocytes, UA Negative Negative - 500+++ Kae/mcL [facility] Nitrite, UA Negative Negative - Positive [facility] pH, UA 6 5 - 9 [facility] Protein, UA Negative Negative - 2000(20) ++++ mg/dL [facility] Spec Grav, UA 1.015 1 - 1.03 [facility] Urobilinogen, UA 0.2 0.2 - 12 mg/dL [facility] IGP,APTIMA HPV,AGE GDLNon AGE GDLN ACOG TESTING Note . [facility] Comment on above: TESTS RESULT FLAG UN ITS REF RANGE LAB Clinician Provided Cytology Information Source.............Cervix;Endocervix No. of containers..01 ThinPrep Vial Age Kelsey NICE Katerin... FLAG LEGEND: L-Low Normal,H-High Normal,LL-Alert Low,HH-Alert High <-Panic Low,>-Panic High,A-Abnormal,AA-Critical Abnormal Performed at: 01 =[address] [address] Shea Yun MD, HPV APTIMA Negative Negative [facility] Comment on above: This nucleic acid am plification test detects fourteen high- risk HPV types (16,18,31,33,35,39,45,51,52,56,58,59,66,68) without differentiation. Performed at: =[address] [id number] Plate Filler: Shea Yun MD, Phone: [phone] Performed at: [address] [id number] Plate Filler: Shea Yun MD, Phone: [phone] IGP, APTIMA HPV, RFX 16/18,45 Note . [facility] Comment on above: TESTS RESULT FLAG UN ITS REF RANGE LAB DIAGNOSIS: 02 NEGATIVE FOR INTRAEPITHELIAL LESION OR MALIGNANCY. FUNGAL ORGANISMS MORPHOLOGICALLY CONSISTENT WITH TIGIST SPECIES ARE PRESENT. THIS SPECIMEN WAS RESCREENED PART OF OUR SMALL CRAFT OPERATOR PROGRAM. Specimen adequacy: 02 Satisfactory for evaluation. No endocervical component is identified. Performed by: 02 Page Gonzalez [employer] QC reviewed by: 02 Malcom Gonzalez, [employer] ([facility]) . 02 Note: Note 02 The Pap smear is a screening test designed to aid in the detection of premalignant and malignant conditions of the uterine cervix. It is not a diagnostic procedure and should not be used as the sole means of detecting cervical cancer. Both false-positive and false-negative reports do occur. Test Methodology: Note 02 This liquid based ThinPrep(R) pap test was screened with the use of an image guided system. HPV Genotype Reflex Note 02 Criteria not met, HPV Genotype not performed. FLAG LEGEND: L-Low Normal,H-High Normal,LL-Alert Low,HH-Alert High <-Panic Low,>-Panic High,A-Abnormal,AA-Critical Abnormal Performed at: [address] [address] Shea Yun MD, BRUSH-SPATULA CERVIX ENDOCERVIX [facility] Urinalysis macro (dipstick) panel (U)on 11-30-2024 Bilirubin, UA Negative Negative - 4(70) +++ mg/dL [facility] Blood, UA Positive Negative - 50 Brent/mcL [facility] Comment on above: Trace-Intact Clarity, UA Clear [facility] Color, UA Yellow [facility] Glucose, UA Negative Negative - 2000(110) ++++ mg/dL [facility] Interpretation and review of laboratory results Abnormal [facility] Ketones, UA Negative Negative - 160(16) ++++ mg/dL [facility] Leukocytes, UA Trace Negative - 500+++ Kae/mcL [facility] Nitrite, UA Negative Negative - Positive [facility] pH, UA 7 5 - 9 [facility] Protein, UA Negative Negative - 1999(20) ++++ mg/dL [facility] Spec Grav, UA 1.015 1 - 1.03 [facility] Urobilinogen, UA 0.2 0.2 - 12 mg/dL [facility] Urinalysis macro (dipstick) panel (U)on 11-02-2024 Bilirubin, UA Negative Negative - 4(70) +++ mg/dL [facility] Blood, UA Negative Negative - 50 Brent/mcL [facility] Clarity, UA Clear [facility] Color, UA Yellow [facility] Glucose, UA Negative Negative - 1999(110) ++++ mg/dL [facility] Interpretation and review of laboratory results Normal [facility] Ketones, UA Negative Negative - 160(16) ++++ mg/dL [facility] Leukocytes, UA Negative Negative - 500+++ Kae/mcL [facility] Nitrite, UA Negative Negative - Positive [facility] pH, UA 7 5 - 9 [facility] Protein, UA Negative Negative - 1999(20) ++++ mg/dL [facility] Spec Grav, UA 1.02 1 - 1.03 [facility] Urobilinogen, UA 0.2 0.2 - 12 mg/dL [facility] Alanine aminotransferase [En zymatic activity/volume] in Serum or PlasmaOrdered By: Ale Fragoso on 10-26-2024 ALT [Catalytic activity/Vol] Alanine aminotransferase [Enzymatic activity/volume] in Serum or Plasma 7-52 [facility] Albumin [Mass/volume] in Ser um or Plasma by Bromocresol green (BCG) dye binding methoOrdered By: Ale Fragoso on 10-26-2024 Albumin BCG dye [Mass/Vol] Albumin [Mass/volume] in Serum or Plasma by Bromocresol green (BCG) dye binding metho 3.5-5.7 [facility] Alkaline phosphatase [Enzyma tic activity/volume] in Serum or PlasmaOrdered By: Ale Fragoso on 10-26-2024 ALP [Catalytic activity/Vol] Alkaline phosphatase [Enzymatic activity/volume] in Serum or Plasma 34-104 [facility] Appearance of UrineOrdered B y: Ale Fragoso on 10-26-2024 Appearance (U) Urine appearance Clear [facility] Aspartate aminotransferase [ Enzymatic activity/volume] in Serum or PlasmaOrdered By: Ale Fragoso on 10-26-2024 AST [Catalytic activity/Vol] Aspartate aminotransferase [Enzymatic activity/volume] in Serum or Plasma 13-39 [facility] Basophils Auto (Bld) [#/Vol] Ordered By: Ale Fragoso on 10-26-2024 Basophils (Bld) [#/Vol] Automated basoph il count 0.0-0.2 [facility] Basophils/100 WBC Auto (Bld) Ordered By: Ale Fragoso on 10-26-2024 Basophils/100 WBC (Bld) Automated basophil % . [facility] Bilirubin Test strip Ql (U)O rdered By: Ale Fragoso on 10-26-2024 Bilirubin Ql (U) Bilirubin.total [Presence] in Urine by Test strip Negative [facility] Bilirubin.total [Mass/volume ] in Serum or PlasmaOrdered By: Ale Fragoso on 10-26-2024 Bilirubin [Mass/Vol] Bilirubin.total [Mass/volume] in Serum or Plasma 0.3-1.0 [facility] Calcium [Mass/volume] in Ser um or PlasmaOrdered By: Ale Fragoso on 10-26-2024 Calcium [Mass/Vol] Calcium [Mass/volume] in Serum or Plasma Low 8.6-10.3 [facility] Carbon dioxide, total [Moles /volume] in Serum or PlasmaOrdered By: Ale Fragoso on 10-26-2024 CO2 [Moles/Vol] Carbon dioxide, total [Moles/volume] in Serum or Plasma 21.0-31.0 [facility] Chloride [Moles/volume] in S mehdi or PlasmaOrdered By: Ale Fragoso on 10-26-2024 Chloride [Moles/Vol] Chloride [Moles/volume] in Serum or Plasma 98-107 [facility] Color Auto (U)Ordered By: Toribio Fragoso on 10-26-2024 Color (U) Color of Urine by Auto Yellow [facility] Complete Blood Count Auto Di ffon 10-26-2024 Basophils (Bld) [#/Vol] 0.0 10*3/uL Normal 0.0-0.2 [facility] Comment on above: Result Comment: PERF ORMED BY: [place] [address] PATHOLOGIST [employer] BRANDI GONZALEZ M.D. Performed By: #### C BC, HEPATIC, BMP, LIPASE #### [address] Basophils/100 WBC (Bld) 0.6 % Normal . T abby [facility] Comment on above: Performed By: #### C BC, HEPATIC, BMP, LIPASE #### [address] Eosinophils (Bld) [#/Vol] 0.3 10*3/uL Normal 0.0-0.45 [facility] Comment on above: Performed By: #### C BC, HEPATIC, BMP, LIPASE #### [address] Eosinophils/100 WBC (Bld) 5.6 % Normal . [facility] Comment on above: Performed By: #### C BC, HEPATIC, BMP, LIPASE #### [address] Erythrocyte distribution width (RBC) [Ratio] 13.6 % Normal 11.9-15.3 [facility] Comment on above: Performed By: #### C BC, HEPATIC, BMP, LIPASE #### [address] Hematocrit (Bld) [Volume fraction] 35.6 % Normal 34.0-46.4 [facility] Comment on above: Performed By: #### C BC, HEPATIC, BMP, LIPASE #### [address] Hemoglobin (Bld) [Mass/Vol] 12.3 g/dL Normal 11.8-15.4 [facility] Comment on above: Performed By: #### C BC, HEPATIC, BMP, LIPASE #### [address] Lymphocytes (Bld) [#/Vol] 0.8 10*3/uL Low 1.00-4.8 [facility] Comment on above: Performed By: #### C BC, HEPATIC, BMP, LIPASE #### [address] Lymphocytes/100 WBC (Bld) 18.1 % Normal . [facility] Comment on above: Performed By: #### C BC, HEPATIC, BMP, LIPASE #### [address] MCH (RBC) [Entitic mass] 32.2 pg Normal 24.7-34.3 [facility] Comment on above: Performed By: #### C BC, HEPATIC, BMP, LIPASE #### [address] MCV (RBC) [Entitic vol] 92.9 fL Normal 80-100 [facility] Comment on above: Performed By: #### C BC, HEPATIC, BMP, LIPASE #### [address] Mean Corpuscular HGB Conc 34.6 g/dL Normal 32.0-35.0 [facility] Comment on above: Performed By: #### C BC, HEPATIC, BMP, LIPASE #### [address] Monocytes (Bld) [#/Vol] 0.4 10*3/uL Normal 0.0-0.8 [facility] Comment on above: Performed By: #### C BC, HEPATIC, BMP, LIPASE #### [place] [address] [place] Monocytes/100 WBC (Bld) 17.94 % Normal 0.00-20.00 [facility] Comment on above: Performed By: #### C BC, HEPATIC, BMP, LIPASE #### [address] Monocytes/100 WBC (Bld) 8.1 % Normal . T he [facility] Comment on above: Performed By: #### C BC, HEPATIC, BMP, LIPASE #### [address] Neutrophils (Bld) [#/Vol] 3.1 10*3/uL Normal 1.8-7.7 [facility] Comment on above: Performed By: #### C BC, HEPATIC, BMP, LIPASE #### [address] Neutrophils/100 WBC (Bld) 67.6 % Normal . [facility] Comment on above: Performed By: #### C BC, HEPATIC, BMP, LIPASE #### [address] NRBC% 0.1 /100{WBC} Normal 0-0.5 [facility] Comment on above: Performed By: #### C BC, HEPATIC, BMP, LIPASE #### [address] Platelet mean volume (Bld) [Entitic vol] 7.6 fL Normal 6.3-10.7 [facility] Comment on above: Performed By: #### C BC, HEPATIC, BMP, LIPASE #### [address] Platelets (Bld) [#/Vol] 194 10*3/uL Normal 150-450 [facility] Comment on above: Performed By: #### C BC, HEPATIC, BMP, LIPASE #### [address] RBC (Bld) [#/Vol] 3.83 10*6/uL Normal 3.60-5.00 [facility] Comment on above: Performed By: #### C BC, HEPATIC, BMP, LIPASE #### [address] WBC (Bld) [#/Vol] 4.6 10*3/uL Normal 3.8-11.6 [facility] Comment on above: Performed By: #### C BC, HEPATIC, BMP, LIPASE #### [facility] [address] Comprehensive Metabolic Pane al 10-26-2024 Albumin [Mass/Vol] 3.6 g/dL Normal 3.5-5.7 [facility] Comment on above: Performed By: #### C BC, HEPATIC, BMP, LIPASE #### [address] Albumin/Globulin [Mass ratio] 1.5 {ratio} Normal [facility] Comment on above: Performed By: #### C BC, HEPATIC, BMP, LIPASE #### [address] ALP [Catalytic activity/Vol] 42 U/L Normal 34-104 [facility] Comment on above: Performed By: #### C BC, HEPATIC, BMP, LIPASE #### [address] ALT [Catalytic activity/Vol] 13 U/L Normal 7-52 [facility] Comment on above: Performed By: #### C BC, HEPATIC, BMP, LIPASE #### [address] Anion gap [Moles/Vol] 7.3 mmol/L Normal 6.0-15.0 [facility] Comment on above: Performed By: #### C BC, HEPATIC, BMP, LIPASE #### [address] AST [Catalytic activity/Vol] 16 U/L Normal 13-39 [facility] Comment on above: Performed By: #### C BC, HEPATIC, BMP, LIPASE #### [place] [address] [place] Bilirubin [Mass/Vol] 0.3 mg/dL Normal 0.3-1.0 [facility] Comment on above: Performed By: #### C BC, HEPATIC, BMP, LIPASE #### [address] Calcium [Mass/Vol] 8.5 mg/dL Low 8.6-10.3 [facility] Comment on above: Performed By: #### C BC, HEPATIC, BMP, LIPASE #### [facility] [address] [place] [address] [place] Chloride [Moles/Vol] 106 mmol/L Normal 98-107 [facility] Comment on above: Performed By: #### C BC, HEPATIC, BMP, LIPASE #### [facility] [address] CO2 [Moles/Vol] 25.5 mmol/L Normal 21.0-31.0 [facility] Comment on above: Performed By: #### C BC, HEPATIC, BMP, LIPASE #### [facility] [address] Creatinine [Mass/Vol] 0.55 mg/dL Low 0.60-1.20 [facility] Comment on above: Performed By: #### C BC, HEPATIC, BMP, LIPASE #### [facility] [address] [place] [address] [place] Creatinine Clr Calc Pharmacy 121.47 Normal [facility] Comment on above: Performed By: #### C BC, HEPATIC, BMP, LIPASE #### [facility] [address] [place] [address] [place] GFR/1.73 sq M.predicted MDRD (S/P/Bld) [Vol rate/Area] mL/min/{1.73_m2} Normal [facility] Comment on above: Performed By: #### C BC, HEPATIC, BMP, LIPASE #### [facility] [address] [place] [address] [place] Globulin (S) [Mass/Vol] 2.4 g/dL Normal [facility] Comment on above: Performed By: #### C BC, HEPATIC, BMP, LIPASE #### [facility] [address] Glucose [Mass/Vol] 90 mg/dL Normal 70-100 [facility] Comment on above: Result Comment: [facility] Glucose Reference Range is dependent on time and content of last meal. Glucose of more than 200 mg/dL in a nonstressed, ambulatory subject supports the diagnosis of Diabetes Mellitus. ADA recommended reference range Performed By: #### C BC, HEPATIC, BMP, LIPASE #### [facility] [address] Potassium [Moles/Vol] 3.8 mmol/L Normal 3.5-5.1 [facility] Comment on above: Performed By: #### C BC, HEPATIC, BMP, LIPASE #### [facility] [address] Protein [Mass/Vol] 6.0 g/dL Low 6.4-8.9 [facility] [facility] Comment on above: Performed By: #### C BC, HEPATIC, BMP, LIPASE #### [facility] [address] Sodium [Moles/Vol] 135 mmol/L Low 136-145 [facility] Comment on above: Performed By: #### C BC, HEPATIC, BMP, LIPASE #### [facility] [address] Urea nitrogen [Mass/Vol] 9 mg/dL Normal 7-25 [facility] Comment on above: Performed By: #### C BC, HEPATIC, BMP, LIPASE #### [facility] [address] Creatinine [Mass/volume] in Serum or PlasmaOrdered By: Ale Fragoso on 10-26-2024 Creatinine [Mass/Vol] Creatinine [Mass/volume] in Serum or Plasma Low 0.60-1.20 [facility] Eosinophils Auto (Bld) [#/Vo l]Ordered By: Ale Fragoso on 10-26-2024 Eosinophils (Bld) [#/Vol] Automated eosinophil count 0.0-0.45 [facility] Eosinophils/100 WBC Auto (Bl d)Ordered By: Ale Fragoso on 10-26-2024 Eosinophils/100 WBC (Bld) Automated eosinophil % . [facility] Erythrocyte distribution wid th Auto (RBC) [Ratio]Ordered By: Ale Fragoso on 10-26-2024 Erythrocyte distribution width (RBC) [Ratio] Erythrocyte distribution width [Ratio] by Automated count 11.9-15.3 [facility] Globulin Calc (S) [Mass/Vol] Ordered By: Ale Fragoso on 10-26-2024 Globulin (S) [Mass/Vol] Serum globulin measurement by calculation (mass/volume) [facility] Glucose [Mass/volume] in Ser um or PlasmaOrdered By: Ale Fragoso on 10-26-2024 Glucose [Mass/Vol] Glucose [Mass/volume] in Serum or Plasma 70-100 [facility] Comment on above: ADA recommended refe [...] [Mass/volume] in Urine by Test strip Normal [facility] Hematocrit Auto (Bld) [Volum e fraction]Ordered By: Ale Fragoso on 10-26-2024 Hematocrit (Bld) [Volume fraction] Hematocrit [Volume Fraction] of Blood by Automated count 34.0-46.4 [facility] Hemoglobin Test strip Ql (U) Ordered By: Ale Fragoso on 10-26-2024 Hemoglobin Ql (U) Hemoglobin [Presence] in Urine by Test strip Negative [facility] Hemoglobin [Mass/volume] in BloodOrdered By: Ale Fragoso 10-26-2024 Hemoglobin (Bld) [Mass/Vol] Hemoglobin [Mass/volume] in Blood 11.8-15.4 [facility] Ketones Test strip Ql (U)Ord ered By: Ale Fragoso on 10-26-2024 Ketones Ql (U) Ketones [Presence] in Urine by Test strip Negative [facility] Leukocyte esterase [Presence ] in Urine by Test stripOrdered By: Ale Fragoso on 10-26-2024 Leukocyte esterase Test strip Ql (U) Leukocyte esterase [Presence] in Urine by Test strip Negative [facility] Leukocytes [#/volume] correc ira for nucleated erythrocytes in Blood by Automated counOrdered By: Ale Fragoso on 10-26-2024 WBC corrected for nucl RBC Auto (Bld) [#/Vol] Leukocytes [#/volume] corrected for nucleated erythrocytes in Blood by Automated coun 3.8-11.6 [facility] Lymphocytes Auto (Bld) [#/Vo l]Ordered By: Ale Fragoso on 10-26-2024 Lymphocytes (Bld) [#/Vol] Lymphocytes [#/volume] in Blood by Automated count Low 1.00-4.8 [facility] Lymphocytes/100 WBC Auto (Bl d)Ordered By: Ale Fragoso on 10-26-2024 Lymphocytes/100 WBC (Bld) Lymphocytes/100 leukocytes in Blood by Automated count . [facility] MCH Auto (RBC) [Entitic mass ]Ordered By: Ale Fragoso on 10-26-2024 MCH (RBC) [Entitic mass] MCH [Entitic mass] by Automated count 24.7-34.3 [facility] MCHC Auto (RBC) [Mass/Vol]Or dered By: Ale Fragoso on 10-26-2024 MCHC (RBC) [Mass/Vol] MCHC [Mass/volume] by Automated count 32.0-35.0 [facility] MCV Auto (RBC) [Entitic vol] Ordered By: Ale Fragoso on 10-26-2024 MCV (RBC) [Entitic vol] MCV [Entitic vol ume] by Automated count 80-100 [facility] Magnesiumon 10-26-2024 Magnesium [Mass/Vol] 1.9 mg/dL Normal 1.9-2.7 [facility] Comment on above: Result Comment: PERF ORMED BY: [place] [address] PATHOLOGIST [employer] BRANDI GONZALEZ M.D. Performed By: #### C BC, HEPATIC, BMP, LIPASE #### [address] Magnesium [Mass/volume] in S mehdi or PlasmaOrdered By: Ale Fragoso on 10-26-2024 Magnesium [Mass/Vol] Magnesium [Mass/volume] in Serum or Plasma 1.9-2.7 [facility] Monocyte distribution width [Entitic volume] in Blood by AutomatedOrdered By: Ale Fragoso on 10-26-2024 Monocyte distribution width Auto (Bld) [Entitic vol] Monocyte distribution width [Entitic volume] in Blood by Automated 0.00-20.00 [facility] Monocytes Auto (Bld) [#/Vol] Ordered By: Ale Fragoso on 10-26-2024 Monocytes (Bld) [#/Vol] Automated blood monocyte count 0.0-0.8 [facility] Monocytes/100 WBC Auto (Bld) Ordered By: Ale Fragoso on 10-26-2024 Monocytes/100 WBC (Bld) Automated monocyte % . [facility] Neutrophils Auto (Bld) [#/Vo l]Ordered By: Ale Fragoso on 10-26-2024 Neutrophils (Bld) [#/Vol] Neutrophils [#/volume] in Blood by Automated count 1.8-7.7 [facility] Neutrophils/100 WBC Auto (Bl d)Ordered By: Ale Fragoso on 10-26-2024 Neutrophils/100 WBC (Bld) Automated neutrophil % . [facility] Nitrite Test strip Ql (U)Ord ered By: Ale Fragoso on 10-26-2024 Nitrite Ql (U) Nitrite [Presence] in Urine by Test strip Negative [facility] No Panel InformationOrdered By: Ale Fragoso on 10-26-2024 Estimated GFR (CKD-EPI) > 60.0 mL/Min [facility] Creatinine Clearance (Chem 121.47 [facility] Nucleated erythrocytes [Pres ence] in Blood by Automated countOrdered By: Ale Fragoso on 10-26-2024 Nucleated RBC Auto Ql (Bld) Nucleated erythrocytes [Presence] in Blood by Automated count 0-0.5 [facility] Platelet mean volume Auto (B ld) [Entitic vol]Ordered By: Ale Fragoso on 10-26-2024 Platelet mean volume (Bld) [Entitic vol] Platelet mean volume [Entitic volume] in Blood by Automated count 6.3-10.7 [facility] Platelets Auto (Bld) [#/Vol] Ordered By: Ale Fragoso on 10-26-2024 Platelets (Bld) [#/Vol] Platelets [#/vol ume] in Blood by Automated count 150-450 [facility] Potassium [Moles/volume] in Serum or PlasmaOrdered By: Ale Fragoso on 10-26-2024 Potassium [Moles/Vol] Potassium [Moles/volume] in Serum or Plasma 3.5-5.1 [facility] Protein Test strip (U) [Mass /Vol]Ordered By: Ale Fragoso on 10-26-2024 Protein (U) [Mass/Vol] Protein [Mass/volume] in Urine by Test strip Negative [facility] Protein [Mass/volume] in Ser um or PlasmaOrdered By: Ale Fragoso on 10-26-2024 Protein [Mass/Vol] Protein [Mass/volume] in Serum or Plasma Low 6.4-8.9 [facility] RBC Auto (Bld) [#/Vol]Ordere d By: Ale Fragoso on 10-26-2024 RBC (Bld) [#/Vol] Erythrocytes [#/volume] in Blood by Automated count 3.60-5.00 [facility] Serum or plasma albumin/glob ulin mass ratioOrdered By: Ale Fragoso on 10-26-2024 Albumin/Globulin [Mass ratio] Serum or plasma albumin/globulin mass ratio [facility] Serum or plasma anion gap de terminationOrdered By: Ale Fragoso on 10-26-2024 Anion gap [Moles/Vol] Serum or plasma anion gap determination 6.0-15.0 [facility] Sodium [Moles/volume] in Ser um or PlasmaOrdered By: Ale Fragoso on 10-26-2024 Sodium [Moles/Vol] Sodium [Moles/volume] in Serum or Plasma Low 136-145 [facility] Specific gravity Test strip (U) [Rel density]Ordered By: Ale Fragoso on 10-26-2024 Specific gravity (U) [Rel density] Specific gravity of Urine by Test strip 1.001-1.030 [facility] US renal RTon 10-26-2024 [place] [address] Ultrasound Report Signed Patient: Breana Casas MR#: [id number] : 1990 Acct:[id number] Age/Sex: 33 / F ADM Date: 10/26/24 Loc: ER Room: Type: [facility] ER Attending Dr: Ordering Provider: Ale [...] Tanner Burleson M.D.10/26/2024 11:46 AM Dictation Location: [place] [address] Tech: Karmen Grayley Transcribed By: SHANE 10/26/24 1146 Dictated By: Tanner Burleson DO 10/26/24 1139 Signed By: 10/26/24 1146 Normal [facility] Urea nitrogen [Mass/volume] in Serum or PlasmaOrdered By: Ale Fragoso on 10-26-2024 Urea nitrogen [Mass/Vol] Urea nitrogen [Mass/volume] in Serum or Plasma 04-29 [facility] Urinalysison 10-26-2024 Appearance (U) Clear Normal Clear [facility] Comment on above: Order Comment: Name Collection Type:: Clean-Voided Midstream Performed By: #### U A #### [facility] [address] [place] [id number] [place] Bilirubin,Urine Negative Normal Negative [facility] Comment on above: Order Comment: Name Collection Type:: Clean-Voided Midstream Performed By: #### U A #### [facility] [address] [place] [id number] [place] Color (U) Light-Yellow Normal Yellow [facility] Comment on above: Order Comment: Name Collection Type:: Clean-Voided Midstream Performed By: #### U A #### [facility] [address] [place] [id number] [place] Glucose Ql (U) Normal Normal Normal [facility] Comment on above: Order Comment: Name Collection Type:: Clean-Voided Midstream Performed By: #### U A #### [address] Ketones Ql (U) Negative Normal Negative [facility] Comment on above: Order Comment: Name Collection Type:: Clean-Voided Midstream Performed By: #### U A #### [address] Leukocyte esterase Test strip Ql (U) Negative Normal Negative [facility] Comment on above: Order Comment: Name Collection Type:: Clean-Voided Midstream Performed By: #### U A #### [place] [address] [place] Nitrite,Urine Negative Normal Negative [facility] [place] [facility] Comment on above: Order Comment: Name Collection Type:: Clean-Voided Midstream Performed By: #### U A #### [place] [address] [place] Occult Blood,Urine Negative Normal Negative [facility] Comment on above: Order Comment: Name Collection Type:: Clean-Voided Midstream Result Comment: PERF ORMED BY: [place] [address] PATHOLOGIST [employer] BRANDI GONZALEZ M.D. Performed By: #### U A #### [place] [address] [place] pH (U) 6.5 [pH] Normal 5.0-9.0 [facility] Comment on above: Order Comment: Name Collection Type:: Clean-Voided Midstream Performed By: #### U A #### [place] [address] [place] Protein,Urine Negative Normal Negative [facility] Comment on above: Order Comment: Name Collection Type:: Clean-Voided Midstream Performed By: #### U A #### [address] Specificy [place],Urine 1.020 Normal 1.001-1.030 [facility] Comment on above: Order Comment: Name Collection Type:: Clean-Voided Midstream Performed By: #### U A #### [facility] [address] Urobilinogen,Urine Normal Normal Normal [facility] Comment on above: Order Comment: Name Collection Type:: Clean-Voided Midstream Performed By: #### U A #### [facility] [address] Urobilinogen Test strip (U) [Mass/Vol]Ordered By: Ale Fragoso on 10-26-2024 Urobilinogen (U) [Mass/Vol] Urobilinogen [Mass/volume] in Urine by Test strip Normal [facility] WBC Auto (Bld) [#/Vol]Ordere d By: Ale Fragoso on 10-26-2024 WBC (Bld) [#/Vol] Leukocytes [#/volume] in Blood by Automated count 3.8-11.6 [facility] pH Test strip (U)Ordered By: Ale Fragoso on 10-26-2024 pH (U) pH of Urine by Test strip 5.0-9.0 [facility] BOX TESTon 10-19-2024 BOX TEST SENT OUT [facility] BOX1 [facility] BOX2 10/19/24 [facility] ( test) Ql (U)o n 10-01-2024 Interpretation and review of laboratory results Abnormal [facility] Preg Test, Ur Positive Negative [facility] Urinalysis macro (dipstick) panel (U)on 10-01-2024 Bilirubin, UA Negative Negative - 4(70) +++ mg/dL [facility] Blood, UA Negative Negative - 50 Brent/mcL [facility] Clarity, UA Clear [facility] Color, UA Yellow [facility] Glucose, UA Negative Negative - 2000(110) ++++ mg/dL [facility] Interpretation and review of laboratory results Normal [facility] Ketones, UA Negative Negative - 160(16) ++++ mg/dL [facility] Leukocytes, UA Negative Negative - 500+++ Kae/mcL [facility] Nitrite, UA Negative Negative - Positive [facility] pH, UA 6 5 - 9 [facility] Protein, UA Negative Negative - 2000(20) ++++ mg/dL [facility] Spec Grav, UA 1.005 1 - 1.03 [facility] Urobilinogen, UA 0.2 0.2 - 12 mg/dL [facility] PREG QUANT HCGon 024 HCG QUANTITATIVE 95522 mIU/mL [facility] Comment on above: 5-50 0.2-1 WEEK 50-500 1-2 WEEKS 100-5,000 2-3 WEEKS 500-10,000 3-4 WEEKS 1,000-50,000 4-5 WEEKS 10,000-100,000 5-6 WEEKS 15,000-200,000 6-8 WEEKS 10,000-100,000 2[facility] 024 HCG QUANTITATIVE 6224 mIU/mL [facility] Comment on above: 5-50 0.2-1 WEEK 50-500 1-2 WEEKS 100-5,000 2-3 WEEKS 500-10,000 3-4 WEEKS 1,000-50,000 4-5 WEEKS 10,000-100,000 5-6 WEEKS 15,000-200,000 6-8 WEEKS 10,000-100,000 2-3 MONTHS [facility] ALL PROGESTERONEon 4 PROGESTERONE 21.4 ng/mL . [facility] Comment on above: Follicular phase 0.1 - 0.9 Luteal phase 1.8 - 23.9 Ovulation phase 0.1 - 12.0 First trimester 11.0 - 44.3 Second trimester 25.4 - 83.3 Third trimester 58.7 - 214.0 Postmenopausal 0.0 - 0.1 Performed at: [facility] [id number] Plate Filler: Lebron Manzo PhD, Phone: [phone] [facility] HCG ( test) Ql (U)o n 06-29-2024 Interpretation and review of laboratory results Normal [facility] Preg Test, Ur Negative [facility] Urinalysis macro (dipstick) panel (U)on 06-29-2024 Bilirubin, UA Negative Negative - 4(70) +++ mg/dL [facility] Blood, UA Positive Negative - 50 Brent/mcL [facility] Comment on above: trace Clarity, UA Clear [facility] Color, UA Yellow [facility] Glucose, UA Negative Negative - 1999(110) ++++ mg/dL [facility] Interpretation and review of laboratory results Normal [facility] Ketones, UA Negative Negative - 160(16) ++++ mg/dL [facility] Leukocytes, UA Negative Negative - 500+++ Kae/mcL [facility] Nitrite, UA Negative Negative - Positive [facility] pH, UA 5.5 5 - 9 [facility] Protein, UA Negative Negative - 2000(20) ++++ mg/dL [facility] Spec Grav, UA 1.020 1 - 1.03 [facility] Urobilinogen, UA 1.0 0.2 - 12 mg/dL [facility] Alanine aminotransferase [En zymatic activity/volume] in Serum or PlasmaOrdered By: PROVIDER TEMP on 06-17-2024 ALT [Catalytic activity/Vol] 15 U/L Normal 7-52 [facility] Comment on above: Performed By: #### C BC, HEPATIC, BMP, LIPASE #### [facility] [address] Albumin [Mass/volume] in Ser um or Plasma by Bromocresol green (BCG) dye binding methoOrdered By: PROVIDER TEMP on 06-17-2024 Albumin BCG dye [Mass/Vol] 4.5 g/dL 3.5-5.7 [facility] Alkaline phosphatase [Enzyma tic activity/volume] in Serum or PlasmaOrdered By: PROVIDER TEMP on 06-17-2024 ALP [Catalytic activity/Vol] 58 U/L Normal 34-104 [facility] Comment on above: Performed By: #### C BC, HEPATIC, BMP, LIPASE #### [facility] [address] Aspartate aminotransferase [ Enzymatic activity/volume] in Serum or PlasmaOrdered By: PROVIDER TEMP on 06-17-2024 AST [Catalytic activity/Vol] 17 U/L Normal 13-39 [facility] Comment on above: Performed By: #### C BC, HEPATIC, BMP, LIPASE #### [facility] [address] [place] [id number] [place] Automated basophil %Ordered By: PROVIDER TEMP on 06-17-2024 Basophils/100 WBC (Bld) 1.1 % Normal . [facility] Comment on above: Performed By: #### C BC, HEPATIC, BMP, LIPASE #### [address] Automated basophil countOrde red By: PROVIDER TEMP on 06-17-2024 Basophils (Bld) [#/Vol] 0.0 10*3/uL Normal 0.0-0.2 [facility] Comment on above: Result Comment: PERF ORMED BY: [place] [address] PATHOLOGIST [employer] KHANG WEEKS M.D. Performed By: #### C BC, HEPATIC, BMP, LIPASE #### [address] Automated blood monocyte cou ntOrdered By: PROVIDER TEMP on 06-17-2024 Monocytes (Bld) [#/Vol] 0.3 10*3/uL Normal 0.0-0.8 [facility] Comment on above: Performed By: #### C BC, HEPATIC, BMP, LIPASE #### [address] Automated eosinophil %Ordere d By: PROVIDER TEMP on 06-17-2024 Eosinophils/100 WBC (Bld) 9.5 % Normal . [facility] Comment on above: Performed By: #### C BC, HEPATIC, BMP, LIPASE #### [address] Automated eosinophil countOr dered By: PROVIDER TEMP on 06-17-2024 Eosinophils (Bld) [#/Vol] 0.4 10*3/uL Normal 0.0-0.45 [facility] Comment on above: Performed By: #### C BC, HEPATIC, BMP, LIPASE #### [address] Automated monocyte %Ordered By: PROVIDER TEMP on 06-17-2024 Monocytes/100 WBC (Bld) 7.1 % Normal . [facility] Comment on above: Performed By: #### C BC, HEPATIC, BMP, LIPASE #### [facility] [address] Automated neutrophil %Ordere d By: PROVIDER TEMP on 06-17-2024 Neutrophils/100 WBC (Bld) 51.1 % Normal . [facility] Comment on above: Performed By: #### C BC, HEPATIC, BMP, LIPASE #### [facility] [address] [place] [address] Basic Metabolic Panelon 06-06 Creatinine Clr Calc Pharmacy 78.60 Normal [facility] Comment on above: Performed By: #### C BC, HEPATIC, BMP, LIPASE #### [address] GFR/1.73 sq M.predicted MDRD (S/P/Bld) [Vol rate/Area] mL/min/{1.73_m2} Normal [facility] Comment on above: Performed By: #### C BC, HEPATIC, BMP, LIPASE #### [address] Bilirubin Test strip Ql (U)O rdered By: PROVIDER TEMP on 06-17-2024 Bilirubin Ql (U) Negative Negative [facility] Bilirubin.direct [Mass/volum e] in Serum or PlasmaOrdered By: PROVIDER TEMP on 06-17-2024 Bilirubin.direct [Mass/Vol] 0.20 mg/dL High 0.03-0.18 [facility] Bilirubin.total [Mass/volume ] in Serum or PlasmaOrdered By: PROVIDER TEMP on 06-17-2024 Bilirubin [Mass/Vol] 0.8 mg/dL Normal 0.3-1.0 [facility] Comment on above: Performed By: #### C BC, HEPATIC, BMP, LIPASE #### [facility] [address] [place] [address] Calcium [Mass/volume] in Ser um or PlasmaOrdered By: PROVIDER TEMP on 06-17-2024 Calcium [Mass/Vol] 9.2 mg/dL Normal 8.6-10.3 [facility] Comment on above: Performed By: #### C BC, HEPATIC, BMP, LIPASE #### [address] Carbon dioxide, total [Moles /volume] in Serum or PlasmaOrdered By: PROVIDER TEMP on 06-17-2024 CO2 [Moles/Vol] 27.0 mmol/L Normal 21.0-31.0 [facility] Comment on above: Performed By: #### C BC, HEPATIC, BMP, LIPASE #### [address] Chloride [Moles/volume] in S mehdi or PlasmaOrdered By: PROVIDER TEMP on 06-17-2024 Chloride [Moles/Vol] 106 mmol/L Normal 98-107 [facility] Comment on above: Performed By: #### C BC, HEPATIC, BMP, LIPASE #### [address] Color of Urine by AutoOrdere d By: PROVIDER TEMP on 06-17-2024 Color (U) Light-yellow Normal Yellow [facility] Comment on above: Order Comment: Name Collection Type:: Clean-Voided Midstream Performed By: #### C BC, HEPATIC, BMP, LIPASE #### [address] Complete Blood Count Auto Di ffon 06-17-2024 Mean Corpuscular HGB Conc 34.6 g/dL Normal 32.0-35.0 [facility] Comment on above: Performed By: #### C BC, HEPATIC, BMP, LIPASE #### [place] [address] [place] Monocytes/100 WBC (Bld) 16.54 % Normal 0.00-20.00 T abby [facility] Comment on above: Performed By: #### C BC, HEPATIC, BMP, LIPASE #### [address] NRBC% 0.1 /100{WBC} Normal 0-0.5 [facility] [place] [facility] Comment on above: Performed By: #### C BC, HEPATIC, BMP, LIPASE #### [facility] [address] [place] [address] [place] Creatinine [Mass/volume] in Serum or PlasmaOrdered By: PROVIDER TEMP on 06-17-2024 Creatinine [Mass/Vol] 0.85 mg/dL Normal 0.60-1.20 [facility] Comment on above: Performed By: #### C BC, HEPATIC, BMP, LIPASE #### [facility] [address] Erythrocyte distribution wid th [Ratio] by Automated countOrdered By: PROVIDER TEMP on 06-17-2024 Erythrocyte distribution width (RBC) [Ratio] 12.7 % Normal 11.9-15.3 [facility] Comment on above: Performed By: #### C BC, HEPATIC, BMP, LIPASE #### [address] Erythrocytes [#/volume] in B lood by Automated countOrdered By: PROVIDER TEMP on 06-17-2024 RBC (Bld) [#/Vol] 4.50 10*6/uL Normal 3.60-5.00 [facility] Comment on above: Performed By: #### C BC, HEPATIC, BMP, LIPASE #### [address] Glucose [Mass/volume] in Ser um or PlasmaOrdered By: PROVIDER TEMP on 06-17-2024 Glucose [Mass/Vol] 86 mg/dL Normal 70-100 [facility] Comment on above: ADA recommended refe rence rangeRandom Glucose Reference Range is dependent on time and content of last meal. Glucose of more than 200 mg/dL in a nonstressed, ambulatory subject supports the diagnosis of Diabetes Mellitus. Result Comment: [place] om Glucose Reference Range is dependent on time and content of last meal. Glucose of more than 200 mg/dL in a nonstressed, ambulatory subject supports the diagnosis of Diabetes Mellitus. ADA recommended reference range Performed By: #### C BC, HEPATIC, BMP, LIPASE #### [place] [address] [place] Glucose [Mass/volume] in Uri ne by Test stripOrdered By: PROVIDER TEMP on 06-17-2024 Glucose Test strip (U) [Mass/Vol] Normal mg/dL Normal [facility] HCG ( test) IA.rapi d Ql (U)Ordered By: PROVIDER TEMP on 06-17-2024 HCG ( test) Ql (U) Negative [facility] HCG,Urineon 06-17-2024 Beta HCG ( test) Ql (U) Negative Normal [facility] Comment on above: Order Comment: Name Collection Type:: Clean-Voided Midstream Result Comment: PERF ORMED BY: [place] [address] PATHOLOGIST [employer] KHANG WEEKS M.D. Performed By: #### C BC, HEPATIC, BMP, LIPASE #### [address] Hematocrit [Volume Fraction] of Blood by Automated countOrdered By: PROVIDER TEMP on 06-17-2024 Hematocrit (Bld) [Volume fraction] 41.7 % Normal 34.0-46.4 [facility] Comment on above: Performed By: #### C BC, HEPATIC, BMP, LIPASE #### [address] Hemoglobin Test strip Ql (U) Ordered By: PROVIDER TEMP on 06-17-2024 Hemoglobin Ql (U) Negative Negative [facility] Hemoglobin [Mass/volume] in BloodOrdered By: PROVIDER TEMP on 06-17-2024 Hemoglobin (Bld) [Mass/Vol] 14.4 g/dL Normal 11.8-15.4 [facility] Comment on above: Performed By: #### C BC, HEPATIC, BMP, LIPASE #### [facility] [address] [place] [address] Hepatic Panelon 06-17-2024 Albumin [Mass/Vol] 4.5 g/dL Normal 3.5-5.7 [facility] Comment on above: Performed By: #### C BC, HEPATIC, BMP, LIPASE #### [address] Bilirubin,Indirect 0.6 mg/dL Normal [facility] Comment on above: Performed By: #### C BC, HEPATIC, BMP, LIPASE #### [facility] [address] Bilirubin.indirect [Mass/Vol] 0.20 mg/dL High 0.03-0.18 [facility] Comment on above: Performed By: #### C BC, HEPATIC, BMP, LIPASE #### [facility] [address] Ketones [Presence] in Urine by Test stripOrdered By: PROVIDER TEMP on 06-17-2024 Ketones Ql (U) 1+ High Negative [facility] Comment on above: Order Comment: Name Collection Type:: Clean-Voided Midstream Performed By: #### C BC, HEPATIC, BMP, LIPASE #### [address] Leukocyte esterase [Presence ] in Urine by Test stripOrdered By: PROVIDER TEMP on 06-17-2024 Leukocyte esterase Test strip Ql (U) Negative Normal Negative [facility] Comment on above: Order Comment: Name Collection Type:: Clean-Voided Midstream Performed By: #### C BC, HEPATIC, BMP, LIPASE #### [facility] [address] [place] [address] Leukocytes [#/volume] correc ira for nucleated erythrocytes in Blood by Automated counOrdered By: PROVIDER TEMP on 06-17-2024 WBC corrected for nucl RBC Auto (Bld) [#/Vol] 4.4 10*3/uL 3.8-11.6 [facility] Leukocytes [#/volume] in Blo od by Automated countOrdered By: PROVIDER TEMP on 06-17-2024 WBC (Bld) [#/Vol] 4.4 10*3/uL Normal 3.8-11.6 [facility] Comment on above: Performed By: #### C BC, HEPATIC, BMP, LIPASE #### [facility] [address] [place] [address] Lipase [Enzymatic activity/v olume] in Serum or PlasmaOrdered By: PROVIDER TEMP on 06-17-2024 Lipase [Catalytic activity/Vol] 16.0 U/L Normal 11.0-82.0 [facility] Comment on above: Result Comment: PERF ORMED BY: [place] [address] PATHOLOGIST [employer] KHANG WEEKS M.D. Performed By: #### C BC, HEPATIC, BMP, LIPASE #### [address] Lymphocytes [#/volume] in Bl ood by Automated countOrdered By: PROVIDER TEMP on 06-17-2024 Lymphocytes (Bld) [#/Vol] 1.4 10*3/uL Normal 1.00-4.8 [facility] Comment on above: Performed By: #### C BC, HEPATIC, BMP, LIPASE #### [address] Lymphocytes/100 leukocytes i n Blood by Automated countOrdered By: PROVIDER TEMP on 06-17-2024 Lymphocytes/100 WBC (Bld) 31.2 % Normal . [facility] Comment on above: Performed By: #### C BC, HEPATIC, BMP, LIPASE #### [address] MCH [Entitic mass] by Automa ira countOrdered By: PROVIDER TEMP on 06-17-2024 MCH (RBC) [Entitic mass] 32.1 pg Normal 24.7-34.3 [facility] Comment on above: Performed By: #### C BC, HEPATIC, BMP, LIPASE #### [address] MCHC Auto (RBC) [Mass/Vol]Or dered By: PROVIDER TEMP on 06-17-2024 MCHC (RBC) [Mass/Vol] 34.6 g/dL 32.0-35.0 [facility] [place] MCV [Entitic volume] by Auto mated countOrdered By: PROVIDER TEMP on 06-17-2024 MCV (RBC) [Entitic vol] 92.6 fL Normal 80-100 [facility] Comment on above: Performed By: #### C BC, HEPATIC, BMP, LIPASE #### [place] [id number] [place] Monocyte distribution width [Entitic volume] in Blood by AutomatedOrdered By: PROVIDER TEMP on 06-17-2024 Monocyte distribution width Auto (Bld) [Entitic vol] 16.54 % 0.00-20.00 [facility] Neutrophils [#/volume] in Bl ood by Automated countOrdered By: PROVIDER TEMP on 06-17-2024 Neutrophils (Bld) [#/Vol] 2.2 10*3/uL Normal 1.8-7.7 [facility] Comment on above: Performed By: #### C BC, HEPATIC, BMP, LIPASE #### [facility] [address] Nitrite Test strip Ql (U)Ord ered By: PROVIDER TEMP on 06-17-2024 Nitrite Ql (U) Negative Negative [facility] No Panel InformationOrdered By: PROVIDER TEMP on 06-17-2024 Estimated GFR (CKD-EPI) > 60.0 mL/Min [facility] Creatinine Clearance (Chem 78.60 [facility] Nucleated erythrocytes [Pres ence] in Blood by Automated countOrdered By: PROVIDER TEMP on 06-17-2024 Nucleated RBC Auto Ql (Bld) 0.1 /100{WBC} 0-0.5 [facility] Platelet mean volume [Entiti c volume] in Blood by Automated countOrdered By: PROVIDER TEMP on 06-17-2024 Platelet mean volume (Bld) [Entitic vol] 7.5 fL Normal 6.3-10.7 [facility] Comment on above: Performed By: #### C BC, HEPATIC, BMP, LIPASE #### [facility] [address] [place] [address] [place] Platelets [#/volume] in Bloo d by Automated countOrdered By: PROVIDER TEMP on 06-17-2024 Platelets (Bld) [#/Vol] 210 10*3/uL Normal 150-450 [facility] Comment on above: Performed By: #### C BC, HEPATIC, BMP, LIPASE #### [facility] [address] [place] [address] [place] Potassium [Moles/volume] in Serum or PlasmaOrdered By: PROVIDER TEMP on 06-17-2024 Potassium [Moles/Vol] 3.6 mmol/L Normal 3.5-5.1 [facility] [place] Comment on above: Performed By: #### C BC, HEPATIC, BMP, LIPASE #### [address] Protein Test strip (U) [Mass /Vol]Ordered By: PROVIDER TEMP on 06-17-2024 Protein (U) [Mass/Vol] Negative Negative [facility] Protein [Mass/volume] in Ser um or PlasmaOrdered By: PROVIDER TEMP on 06-17-2024 Protein [Mass/Vol] 7.0 g/dL Normal 6.4-8.9 [facility] Comment on above: Performed By: #### C BC, HEPATIC, BMP, LIPASE #### [address] Serum globulin measurement b y calculation (mass/volume)Ordered By: PROVIDER TEMP on 06-17-2024 Globulin (S) [Mass/Vol] 2.5 g/dL Normal [facility] Comment on above: Performed By: #### C BC, HEPATIC, BMP, LIPASE #### [address] Serum or plasma albumin/glob ulin mass ratioOrdered By: PROVIDER TEMP on 06-17-2024 Albumin/Globulin [Mass ratio] 1.8 {ratio} Normal [facility] Comment on above: Performed By: #### C BC, HEPATIC, BMP, LIPASE #### [address] Serum or plasma anion gap de terminationOrdered By: PROVIDER TEMP on 06-17-2024 Anion gap [Moles/Vol] 6.6 mmol/L Normal 6.0-15.0 [facility] [place] Comment on above: Performed By: #### C BC, HEPATIC, BMP, LIPASE #### [address] Serum or plasma non-glucuron idated bilirubin measurement (mass/volume)Ordered By: PROVIDER TEMP on 09-12-2024 Bilirubin.indirect [Mass/Vol] 0.6 mg/dL [facility] Sodium [Moles/volume] in Ser um or PlasmaOrdered By: PROVIDER TEMP on 06-17-2024 Sodium [Moles/Vol] 136 mmol/L Normal 136-145 [facility] Comment on above: Performed By: #### C BC, HEPATIC, BMP, LIPASE #### [facility] [address] Specific gravity Test strip (U) [Rel density]Ordered By: PROVIDER TEMP on 06-17-2024 Specific gravity (U) [Rel density] 1.018 1.001-1.030 [facility] Urea nitrogen [Mass/volume] in Serum or PlasmaOrdered By: PROVIDER TEMP on 06-17-2024 Urea nitrogen [Mass/Vol] 9 mg/dL Normal 7-25 [facility] Comment on above: Performed By: #### C BC, HEPATIC, BMP, LIPASE #### [facility] [address] [place] [address] [place] Urinalysison 06-17-2024 Bilirubin,Urine Negative Normal Negative [facility] Comment on above: Order Comment: Name Collection Type:: Clean-Voided Midstream Performed By: #### C BC, HEPATIC, BMP, LIPASE #### [facility] [address] Glucose Ql (U) Normal Normal Normal [facility] Comment on above: Order Comment: Name Collection Type:: Clean-Voided Midstream Performed By: #### C BC, HEPATIC, BMP, LIPASE #### [facility] [address] [place] [address] [place] Nitrite,Urine Negative Normal Negative [facility] [place] [facility] Comment on above: Order Comment: Name Collection Type:: Clean-Voided Midstream Performed By: #### C BC, HEPATIC, BMP, LIPASE #### [facility] [address] Occult Blood,Urine Negative Normal Negative [facility] Comment on above: Order Comment: Name Collection Type:: Clean-Voided Midstream Performed By: #### C BC, HEPATIC, BMP, LIPASE #### [address] Protein,Urine Negative Normal Negative [facility] [place] [facility] Comment on above: Order Comment: Name Collection Type:: Clean-Voided Midstream Performed By: #### C BC, HEPATIC, BMP, LIPASE #### [address] Specificy [place],Urine 1.018 Normal 1.001-1.030 [facility] Comment on above: Order Comment: Name Collection Type:: Clean-Voided Midstream Performed By: #### C BC, HEPATIC, BMP, LIPASE #### [address] Urobilinogen,Urine Normal Normal Normal [facility] Comment on above: Order Comment: Name Collection Type:: Clean-Voided Midstream Performed By: #### C BC, HEPATIC, BMP, LIPASE #### [address] Urine appearanceOrdered By: PROVIDER TEMP on 06-17-2024 Appearance (U) Clear Normal Clear [facility] Comment on above: Order Comment: Name Collection Type:: Clean-Voided Midstream Performed By: #### C BC, HEPATIC, BMP, LIPASE #### [address] Urobilinogen Test strip (U) [Mass/Vol]Ordered By: PROVIDER TEMP on 06-17-2024 Urobilinogen (U) [Mass/Vol] Normal mg/dL Normal [facility] pH of Urine by Test stripOrd ered By: PROVIDER TEMP on 06-17-2024 pH (U) 6.0 [pH] Normal 5.0-9.0 [facility] Comment on above: Order Comment: Name Collection Type:: Clean-Voided Midstream Performed By: #### C BC, HEPATIC, BMP, LIPASE #### [address] Choriogonadotropin.beta subu nit [Units/volume] in Serum or PlasmaOrdered By: Dominic Hester on 04-24-2024 HCG.beta subunit Qn m[IU]/mL [facility] Comment on above: Approximate Approxim ate hCG Gestational Age Range (mIU/ml) (weeks)0.2-1 5-50 1-2 50-500 2-3 100-5,000 3-4 500-10,000 4-5 1,000-50,000 5-6 10,000-100,000 6-8 15,000-200,000 8-12 10,000-100,000 HCG,Quantitativeon 4 HCG,Quantitative < 0.60 Normal [facility] Comment on above: Result Comment: Appr oximate Approximate hCG Gestational Age Range (mIU/ml) (weeks) 0.2-1 5-50 1-2 50-500 2-3 100-5,000 3-4 500-10,000 4-5 1,000-50,000 5-6 10,000-100,000 6-8 15,000-200,000 8-12 10,000-100,000 PERFORMED BY: [place] [address] PATHOLOGIST [employer] KHANG WEEKS M.D. Performed By: #### C BC, HEPATIC, BMP, LIPASE #### [address] Basophils Auto (Bld) [#/Vol] Ordered By: Sylvia Romero on 03-28-2023 Basophils (Bld) [#/Vol] 0.0 10*3/uL 0.0-0.2 [facility] Basophils/100 WBC Auto (Bld) Ordered By: Sylvia Romero on 03-28-2023 Basophils/100 WBC (Bld) 0.8 % . [facility] Choriogonadotropin.beta subu nit [Units/volume] in Serum or PlasmaOrdered By: Sylvia Romero on 03-28-2023 HCG.beta subunit Qn m[IU]/mL [facility] Comment on above: Approximate Approxim ate hCG Gestational Age Range (mIU/ml) (weeks)0.2-1 5-50 1-2 50-500 2-3 100-5,000 3-4 500-10,000 4-5 1,000-50,000 5-6 10,000-100,000 6-8 15,000-200,000 8-12 10,000-100,000 Eosinophils Auto (Bld) [#/Vo l]Ordered By: Sylvia Romero on 03-28-2023 Eosinophils (Bld) [#/Vol] 0.2 10*3/uL 0.0-0.45 [facility] Eosinophils/100 WBC Auto (Bl d)Ordered By: Sylvia Romero on 03-28-2023 Eosinophils/100 WBC (Bld) 4.7 % . [facility] Erythrocyte distribution wid th Auto (RBC) [Ratio]Ordered By: Sylvia Romero on 03-28-2023 Erythrocyte distribution width (RBC) [Ratio] 13.0 % 11.9-15.3 [facility] Hematocrit Auto (Bld) [Volum e fraction]Ordered By: Sylvia Romero on 03-28-2023 Hematocrit (Bld) [Volume fraction] 38.0 % 34.0-46.4 [facility] Hemoglobin [Mass/volume] in BloodOrdered By: Sylvia Romero on 03-28-2023 Hemoglobin (Bld) [Mass/Vol] 12.9 g/dL 11.8-15.4 [facility] Leukocytes [#/volume] correc ira for nucleated erythrocytes in Blood by Automated counOrdered By: Sylvia Romero on 03-28-2023 WBC corrected for nucl RBC Auto (Bld) [#/Vol] 4.1 10*3/uL 3.8-11.6 [facility] Lymphocytes Auto (Bld) [#/Vo l]Ordered By: Sylvia Romero on 03-28-2023 Lymphocytes (Bld) [#/Vol] 1.0 10*3/uL 1.00-4.8 [facility] Lymphocytes/100 WBC Auto (Bl d)Ordered By: Sylvia Romero on 03-28-2023 Lymphocytes/100 WBC (Bld) 23.9 % . [facility] MCH Auto (RBC) [Entitic mass ]Ordered By: Sylvia Romero on 03-28-2023 MCH (RBC) [Entitic mass] 31.3 pg 24.7-34.3 [facility] MCHC Auto (RBC) [Mass/Vol]Or dered By: Sylvia Romero on 03-28-2023 MCHC (RBC) [Mass/Vol] 33.9 g/dL 32.0-35.0 [facility] [place] MCV Auto (RBC) [Entitic vol] Ordered By: Sylvia Romero on 03-28-2023 MCV (RBC) [Entitic vol] 92.3 fL 80-100 [facility] Monocytes Auto (Bld) [#/Vol] Ordered By: Sylvia Romero on 03-28-2023 Monocytes (Bld) [#/Vol] 0.3 10*3/uL 0.0-0.8 [facility] Monocytes/100 WBC Auto (Bld) Ordered By: Sylvia Romero on 03-28-2023 Monocytes/100 WBC (Bld) 7.5 % . [facility] Neutrophils Auto (Bld) [#/Vo l]Ordered By: Sylvia Romero on 03-28-2023 Neutrophils (Bld) [#/Vol] 2.6 10*3/uL 1.8-7.7 [facility] Neutrophils/100 WBC Auto (Bl d)Ordered By: Sylvia Romero on 03-28-2023 Neutrophils/100 WBC (Bld) 63.1 % . [facility] Nucleated erythrocytes [Pres ence] in Blood by Automated countOrdered By: Sylvia Romero on 03-28-2023 Nucleated RBC Auto Ql (Bld) 0.1 /100{WBC} 0-0.5 [facility] Platelet mean volume Auto (B ld) [Entitic vol]Ordered By: Sylvia Romero on 03-28-2023 Platelet mean volume (Bld) [Entitic vol] 8.8 fL 6.3-10.7 [facility] Platelets Auto (Bld) [#/Vol] Ordered By: Sylvia Romero on 03-28-2023 Platelets (Bld) [#/Vol] 196 10*3/uL 150-450 [facility] Prolactin [Mass/volume] in S mehdi or PlasmaOrdered By: Sylvia Romero on 03-28-2023 Prolactin [Mass/Vol] 3.20 ng/mL 3.34-26.72 [facility] RBC Auto (Bld) [#/Vol]Ordere d By: Sylvia Romero on 03-28-2023 RBC (Bld) [#/Vol] 4.12 10*6/uL 3.60-5.00 [facility] Thyrotropin [Units/volume] i n Serum or PlasmaOrdered By: Sylvia Romero on 03-28-2023 TSH Qn 1.31 m[IU]/L 0.45-5.33 [facility] WBC Auto (Bld) [#/Vol]Ordere d By: Sylvia Romero on 03-28-2023 WBC (Bld) [#/Vol] 4.1 10*3/uL 3.8-11.6 [facility] US PREG TVon 01-20-2023 US PREG TV [...] KENNEDY LEHMAN Date: 2023-01-19 23:22 Normal [facility] CBC AUTO DIFFon 01-17-2023 BASO # 0.0 103/ul Normal 0.0-0.1 [facility] Comment on above: Performed By: #### C ANJU PULIDO AMY #### [facility] [address] [place], [place] [address] Dr. Lester Yen Basophils/100 WBC (Bld) 1.1 % Normal 0.2-2.0 [facility] Comment on above: Performed By: #### C ANJU PULIDO AMY #### [facility] [address] [place], [place] [address] Dr. Lester Yen EO # 0.2 103/ul Normal 0.0-0.7 [facility] Comment on above: Performed By: #### C BECKI PULIDOA, SYLVIA #### [facility] [address] [place] [address] Dr. Lester Yen Eosinophils/100 WBC (Bld) 5.4 % Normal 0.9-7.0 [facility] Comment on above: Performed By: #### C BECKI PULIDOA, SYLVIA #### [facility] [address] [place] [address] Dr. Lester Yen Erythrocyte distribution width (RBC) [Ratio] 12.4 % Normal 11.0-15.0 [facility] Comment on above: Performed By: #### C ANJU PULIDO, SYLVIA #### [facility] [address] [place] [address] Dr. Lester Yen Hematocrit (Bld) [Volume fraction] 37.7 % Normal 36.0-48.0 [facility] Comment on above: Performed By: #### C ANJU PULIDO, SYLVIA #### [facility] [address] [place] [address] Dr. Lester Yen Hemoglobin (Bld) [Mass/Vol] 13.2 g/dL Normal 12.0-16.0 [facility] Comment on above: Performed By: #### C ANJU PULIDO, SYLVIA #### [facility] [address] [place] [address] Dr. Lester Yen IG # 0.01 10e3/ul Normal 0.00-0.03 [facility] Comment on above: Performed By: #### C BECKI PULIDOA, SYLVIA #### [facility] [address] [place] [address] Dr. Lester Yen IG % 0.3 % Normal 0.0-0.5 [facility] Comment on above: Performed By: #### C ANJU PULIDO, SYLVIA #### [facility] [address] [place] [address] Dr. Lester Yen LYMPH # 1.1 103/ul Critically low 1.2-3.8 [facility] Comment on above: Performed By: #### C BECKI PULIDOA, SYLVIA #### [facility] [address] [place] [address] Dr. Lester Yen Lymphocytes/100 WBC (Bld) 28.3 % Normal 20.5-60.0 [facility] Comment on above: Performed By: #### C MP, LIPA, SYLVIA #### [facility] [address] [place] [address] [address] Lester Yen MANUAL DIFF REQ NO Normal [facility] Comment on above: Performed By: #### C MP, LIPA, SYLVIA #### [facility] [address] [place] [address] Dr. Lester Yen MCH (RBC) [Entitic mass] 31.5 pg Normal 26.7-34.0 [facility] Comment on above: Performed By: #### C MP, LIPA, SYLVIA #### [facility] [address] [place] [address] Dr. Lester Yen MCHC (RBC) [Mass/Vol] 35.0 g/dL Normal 29.9-35.2 [facility] Comment on above: Performed By: #### C MP, LIPA, SYLVIA #### [facility] [address] [place] [address] Dr. Lester Yen MCV (RBC) [Entitic vol] 90.0 fL Normal 81.0-99.0 [facility] Comment on above: Performed By: #### C MP, LIPA, SYLVIA #### [facility] [address] [place] [address] Dr. Lester Yen MONO # 0.3 103/ul Normal 0.3-0.8 [facility] Comment on above: Performed By: #### C MP, LIPA, SYLVIA #### [facility] [address] [place] [address] Dr. Lester Yen Monocytes/100 WBC (Bld) 9.2 % Normal 1.7-12.0 [facility] Comment on above: Performed By: #### C MP, LIPA, SYLVIA #### [facility] [address] [place] [address] Dr. Lester Yen NEUT # 2.1 103/ul Normal 1.4-6.5 [facility] Comment on above: Performed By: #### C ANJU PULIDO, SYLVIA #### [facility] [address] [place] [address] [address] Lester Yen Neutrophils/100 WBC (Bld) 55.7 % Normal 43.0-75.0 [facility] Comment on above: Performed By: #### C ANJU PULIDO, SYLVIA #### [facility] [address] [place] [address] Dr. Lester Yen Platelet mean volume (Bld) [Entitic vol] 9.2 fL Critically low 9.5-13.5 [facility] Comment on above: Performed By: #### C ANJU PULIDO AMY #### [facility] [address] [place] [address] Dr. Lester Yen PLT 209 103/ul Normal 150-450 [facility] Comment on above: Performed By: #### C ANJU PULIDO AMY #### [facility] [address] [place] [address] Dr. Lester Yen RBC 4.19 106/ul Critically low 4.20-5.40 [facility] Comment on above: Performed By: #### C ANJU PULIDO AMY #### [facility] [address] [place] [address] Dr. Lester Yen WBC 3.7 103/ul Critically low 4.0-11.[address] [facility] Comment on above: Performed By: #### C ANJU PULIDO AMY #### [facility] [address] [place] [address] Dr. Lester Yen TYPE AND SCREENon 01-17-2023 TYPE AND SCREEN Negative Normal [facility] Comment on above: Performed By: #### C ANJU PULIDO AMY #### [facility] [address] [place] [address] Dr. Lester Yen Alanine aminotransferase [En zymatic activity/volume] in Serum or PlasmaOrdered By: Monika Camarillo on 01-03-2023 ALT [Catalytic activity/Vol] 13 U/L 7-52 [facility] Albumin [Mass/volume] in Ser um or Plasma by Bromocresol green (BCG) dye binding methoOrdered By: Monika Camarillo on 01-03-2023 Albumin BCG dye [Mass/Vol] 4.7 g/dL 3.5-5.7 [facility] Alkaline phosphatase [Enzyma tic activity/volume] in Serum or PlasmaOrdered By: Monika Camarillo on 01-03-2023 ALP [Catalytic activity/Vol] 47 U/L 34-104 [facility] Aspartate aminotransferase [ Enzymatic activity/volume] in Serum or PlasmaOrdered By: Monika Camarillo on 01-03-2023 AST [Catalytic activity/Vol] 15 U/L 13-39 [facility] Basophils Auto (Bld) [#/Vol] Ordered By: Monika Camarillo on 01-03-2023 Basophils (Bld) [#/Vol] 0.0 10*3/uL 0.0-0.2 [facility] Basophils/100 WBC Auto (Bld) Ordered By: Monika Camarillo on 01-03-2023 Basophils/100 WBC (Bld) 0.3 % . F [facility] Bilirubin Test strip Ql (U)O rdered By: Monika Camarillo on 01-03-2023 Bilirubin Ql (U) Negative Negative [facility] Bilirubin.total [Mass/volume ] in Serum or PlasmaOrdered By: Monika Camarillo on 01-03-2023 Bilirubin [Mass/Vol] 0.8 mg/dL 0.3-1.0 [facility] Calcium [Mass/volume] in Ser um or PlasmaOrdered By: Monika Camarillo on 01-03-2023 Calcium [Mass/Vol] 9.2 mg/dL 8.6-10.3 [facility] Carbon dioxide, total [Moles /volume] in Serum or PlasmaOrdered By: Monika Camarillo on 01-03-2023 CO2 [Moles/Vol] 23.8 mmol/L 21.0-31.0 [facility] Chloride [Moles/volume] in S mehdi or PlasmaOrdered By: Monika Camarillo on 01-03-2023 Chloride [Moles/Vol] 105 mmol/L 98-107 [facility] Choriogonadotropin.beta subu nit [Units/volume] in Serum or PlasmaOrdered By: Monika Camarillo on 01-03-2023 [place] [address].00 m[IU]/mL [facility] Comment on above: Approximate Approxim ate hCG Gestational Age Range (mIU/ml) (weeks)0.2-1 5-50 1-2 50-500 2-3 100-5,000 3-4 500-10,000 4-5 1,000-50,000 5-6 10,000-100,000 6-8 15,000-200,000 8-12 10,000-100,000 Color Auto (U)Ordered By: Po Camarillo on 01-03-2023 Color (U) Yellow Yellow [facility] Creatinine [Mass/volume] in Serum or PlasmaOrdered By: Monika Camarillo on 01-03-2023 Creatinine [Mass/Vol] 0.71 mg/dL 0.60-1.20 [facility] [place] ER URINE PROFILEon 3 Bilirubin Ql (U) Negative Normal NEGATIVE [facility] Comment on above: Performed By: #### E RUR #### [facility] [address] [place] [address] Dr. Lester Yen Clarity (U) CLEAR Normal CLEAR [facility] Comment on above: Performed By: #### E RUR #### [facility] [address] [place] [address] Dr. Lester Yen Color (U) LT. YELLOW Normal YELLOW [facility] Comment on above: Performed By: #### E RUR #### [facility] [address] [place] [address] Dr. Lester Yen ERUAHMarianela A micrscopic examination will be performed if indicated. Normal [facility] Comment on above: Performed By: #### E RUR #### [facility] [address] [place] [address] Dr. Lester Yen Glucose Ql (U) Negative Normal NEGATIVE [facility] Comment on above: Performed By: #### E RUR #### [facility] [address] [place] [address] Dr. Lester Yen Hemoglobin Ql (U) Negative Normal NEGATIVE [facility] Comment on above: Performed By: #### E RUR #### [facility] [address] [place] [address] Dr. Lester Yen Ketones Ql (U) 15 mg/dl Abnormal NEGATIVE [facility] Comment on above: Performed By: #### E RUR #### [facility] [address] [place] [address] Dr. Lester Yen LEUKOCYTES Negative Normal NEGATIVE [facility] Comment on above: Performed By: #### E RUR #### [facility] [address] [place] [address] Dr. Lester Yen Nitrite Ql (U) Negative Normal NEGATIVE [facility] Comment on above: Performed By: #### E RUR #### [facility] [address] [place] [address] Dr. Lester Yen pH (U) 6.0 [pH] Normal 5-9 [facility] Comment on above: Performed By: #### E RUR #### [facility] [address] [place] [address] Dr. Lester Yen SPEC GRAVITY <=1.005 Abnormal 1.005-<=1.02 5 [facility] Comment on above: Performed By: #### E RUR #### [facility] [address] [place] [address] Dr. Lester Yen UA PROTEIN Negative Normal NEGATIVE/ TRACE [facility] Comment on above: Performed By: #### E RUR #### [facility] [address] [place] [address] Dr. Lester Yen UR MICRO IND NOT INDICATED Normal [facility] Comment on above: Performed By: #### E RUR #### [facility] [address] [place] [address] Dr. Lester Yen Urobilinogen Qn (U) 0.2 {Olivier'U}/dL Normal 0.2 - 1. 0 [facility] Comment on above: Performed By: #### E RUR #### [facility] [address] [place] [address] Dr. Lester Yen Eosinophils Auto (Bld) [#/Vo l]Ordered By: Monika Camarillo on 01-03-2023 Eosinophils (Bld) [#/Vol] 0.3 10*3/uL 0.0-0.45 [facility] Eosinophils/100 WBC Auto (Bl d)Ordered By: Monika Camarillo on 01-03-2023 Eosinophils/100 WBC (Bld) 5.4 % . [facility] Erythrocyte distribution wid th Auto (RBC) [Ratio]Ordered By: Monika Camarillo on 01-03-2023 Erythrocyte distribution width (RBC) [Ratio] 12.7 % 11.9-15.3 [facility] Globulin Calc (S) [Mass/Vol] Ordered By: Monika Camarillo on 01-03-2023 Globulin (S) [Mass/Vol] 2.1 g/dL [facility] Glucose [Mass/volume] in Ser um or PlasmaOrdered By: Monika Camarillo on 01-03-2023 Glucose [Mass/Vol] 85 mg/dL 70-100 [facility] Comment on above: ADA recommended refe rence rangeRandom Glucose Reference Range is dependent on time and content of last meal. Glucose of more than 200 mg/dL in a nonstressed, ambulatory subject supports the diagnosis of Diabetes Mellitus. Hematocrit Auto (Bld) [Volum e fraction]Ordered By: Monika Camarillo on 01-03-2023 Hematocrit (Bld) [Volume fraction] 39.8 % 34.0-46.4 [facility] Hemoglobin [Mass/volume] in BloodOrdered By: Monika Camarillo on 01-03-2023 Hemoglobin (Bld) [Mass/Vol] 13.4 g/dL 11.8-15.4 [facility] Ketones Auto test strip (U) [Mass/Vol]Ordered By: Monkia Camarillo on 01-03-2023 Ketones (U) [Mass/Vol] Negative Negative Fi [facility] Leukocytes [#/volume] correc ira for nucleated erythrocytes in Blood by Automated counOrdered By: Monika Camarillo on 01-03-2023 WBC corrected for nucl RBC Auto (Bld) [#/Vol] 5.7 10*3/uL 3.8-11.6 [facility] Lipase [Enzymatic activity/v olume] in Serum or PlasmaOrdered By: Monika Camarillo on 01-03-2023 Lipase [Catalytic activity/Vol] 17.0 U/L 11.0-82.0 [facility] Lymphocytes Auto (Bld) [#/Vo l]Ordered By: Monika Camarillo on 01-03-2023 Lymphocytes (Bld) [#/Vol] 0.9 10*3/uL 1.00-4.8 [facility] Lymphocytes/100 WBC Auto (Bl d)Ordered By: Monika Camarillo on 01-03-2023 Lymphocytes/100 WBC (Bld) 15.2 % . [facility] MCH Auto (RBC) [Entitic mass ]Ordered By: Monika Camarillo on 01-03-2023 MCH (RBC) [Entitic mass] 31.0 pg 24.7-34.3 [facility] MCHC Auto (RBC) [Mass/Vol]Or dered By: Monika Camarillo on 01-03-2023 MCHC (RBC) [Mass/Vol] 33.6 g/dL 32.0-35.0 [facility] MCV Auto (RBC) [Entitic vol] Ordered By: Monika Camarillo on 01-03-2023 MCV (RBC) [Entitic vol] 92.2 fL 80-100 [facility] Monocyte distribution width [Entitic volume] in Blood by AutomatedOrdered By: Monika Camarillo on 01-03-2023 Monocyte distribution width Auto (Bld) [Entitic vol] 17.53 % 0.00-20.00 [facility] Monocytes Auto (Bld) [#/Vol] Ordered By: Monika Camarillo on 01-03-2023 Monocytes (Bld) [#/Vol] 0.4 10*3/uL 0.0-0.8 [facility] Monocytes/100 WBC Auto (Bld) Ordered By: Monika Camarillo on 01-03-2023 Monocytes/100 WBC (Bld) 6.5 % . [facility] Neutrophils Auto (Bld) [#/Vo l]Ordered By: Monika Camarillo on 01-03-2023 Neutrophils (Bld) [#/Vol] 4.1 10*3/uL 1.8-7.7 [facility] Neutrophils/100 WBC Auto (Bl d)Ordered By: Monika Camarillo on 01-03-2023 Neutrophils/100 WBC (Bld) 72.6 % . [facility] Nitrite Test strip Ql (U)Ord ered By: Monika Camarillo on 01-03-2023 Nitrite Ql (U) Negative Negative [facility] No Panel InformationOrdered By: Monika Camarillo on 01-03-2023 Estimated GFR (CKD-EPI) > 60.0 mL/Min [facility] Creatinine Clearance (Chem 94.97 [facility] Nucleated erythrocytes [Pres ence] in Blood by Automated countOrdered By: Monika Camarillo on 01-03-2023 Nucleated RBC Auto Ql (Bld) 0.1 /100{WBC} 0-0.5 [facility] Platelet mean volume Auto (B ld) [Entitic vol]Ordered By: Monika Camarillo on 01-03-2023 Platelet mean volume (Bld) [Entitic vol] 7.5 fL 6.3-10.7 [facility] Platelets Auto (Bld) [#/Vol] Ordered By: Monika Camarillo on 01-03-2023 Platelets (Bld) [#/Vol] 187 10*3/uL 150-450 [facility] Potassium [Moles/volume] in Serum or PlasmaOrdered By: Monika Camarillo on 01-03-2023 Potassium [Moles/Vol] 3.7 mmol/L 3.5-5.1 [facility] [place] Protein Auto test strip (U) [Mass/Vol]Ordered By: Monika Camarillo on 01-03-2023 Protein (U) [Mass/Vol] Negative Negative [facility] Protein [Mass/volume] in Ser um or PlasmaOrdered By: Monika Camarillo on 01-03-2023 Protein [Mass/Vol] 6.8 g/dL 6.4-8.9 [facility] RBC Auto (Bld) [#/Vol]Ordere d By: Monika Camarillo on 01-03-2023 RBC (Bld) [#/Vol] 4.32 10*6/uL 3.60-5.00 [facility] Serum or plasma albumin/glob ulin mass ratioOrdered By: Monika Camarillo on 01-03-2023 Albumin/Globulin [Mass ratio] 2.2 {ratio} [facility] Serum or plasma anion gap de terminationOrdered By: Monika Camarillo on 01-03-2023 Anion gap [Moles/Vol] 10.9 mmol/L 6.0-15.0 [facility] Sodium [Moles/volume] in Ser um or PlasmaOrdered By: Monika Camarillo on 01-03-2023 Sodium [Moles/Vol] 136 mmol/L 136-145 [facility] Specific gravity Auto test s trip (U) [Rel density]Ordered By: Monika Camarillo on 01-03-2023 Specific gravity (U) [Rel density] 1.005 1.001-1.030 [facility] US PREG TVon 01-03-2023 US PREG [...] LOPEZ ZARAGOZA Date: 2023-01-03 21:49 Normal [facility] Urea nitrogen [Mass/volume] in Serum or PlasmaOrdered By: Monika Camarillo on 01-03-2023 Urea nitrogen [Mass/Vol] 9 mg/dL 7-25 [facility] Urine clarity by refractomet ry automatedOrdered By: Monika Camarillo on 01-03-2023 Clarity Refractometry automated (U) Clear Clear [facility] Urine glucose measurement by automated test strip (mass/volume)Ordered By: Monika Camarillo on 01-03-2023 Glucose Auto test strip (U) [Mass/Vol] Normal mg/dL Normal [facility] Urine hemoglobin detection b y automated test stripOrdered By: Monika Camarillo on 01-03-2023 Hemoglobin Auto test strip Ql (U) Negative Negative [facility] Urine leukocyte esterase det ection by automated test stripOrdered By: Monika Camarillo on 01-03-2023 Leukocyte esterase Auto test strip Ql (U) Negative Negative [facility] Urobilinogen Auto test strip (U) [Mass/Vol]Ordered By: Monika Camarillo on 01-03-2023 Urobilinogen (U) [Mass/Vol] Normal mg/dL Normal [facility] WBC Auto (Bld) [#/Vol]Ordere d By: Monika Camarillo on 01-03-2023 WBC (Bld) [#/Vol] 5.7 10*3/uL 3.8-11.6 [facility] pH Auto test strip (U)Ordere d By: Monika Camarillo on 01-03-2023 pH (U) 6.5 [pH] 5.0-9.0 [facility] US PREG TVon 12-26-2022 US PREG [...] KENNEDY LEHMAN Date: 2022-12-26 15:07 Normal [facility] PREG QUANT HCGon 12-25-2022 HCG QUANT 39413 mIU/mL Normal [facility] Comment on above: Performed By: #### P REGQNT #### [facility] [address] [place], [place] [address] Dr. Lester Yen HCG RANGE SEE BELOW Normal [facility] Comment on above: Result Comment: 5-50 0.2-1 WEEK 50-500 1-2 WEEKS 100-5,000 2-3 WEEKS 500-10,000 3-4 WEEKS 1,000-50,000 4-5 WEEKS 10,000-100,000 5-6 WEEKS 15,000-200,000 6-8 WEEKS 10,000-100,000 2-3 MONTHS Performed By: #### P REGQNT #### [facility] [address] [place], [place] [address] Dr. Lester Yen Albumin [Mass/volume] in Ser um or PlasmaOrdered By: Monika Camarillo on 08-02-2022 Albumin [Mass/Vol] 3.7 g/dL 3.2-5.5 [facility] Basophils Auto (Bld) [#/Vol] Ordered By: Monika Camarillo on 08-02-2022 Basophils (Bld) [#/Vol] 0.0 10*3/uL 0.0-0.2 [facility] Basophils/100 WBC Auto (Bld) Ordered By: Monika Camarillo on 08-02-2022 Basophils/100 WBC (Bld) 0.8 % . [facility] Bilirubin Test strip Ql (U)O rdered By: Monika Camarillo on 08-02-2022 Bilirubin Ql (U) Negative Negative [facility] Color Auto (U)Ordered By: Po Camarillo on 08-02-2022 Color (U) Yellow Yellow [facility] Creatinine and Glomerular fi ltration rate.predicted panel (S/P/Bld)Ordered By: Monika Camarillo on 08-02-2022 Creatinine [Mass/Vol] 0.86 mg/dL 0.44-1.03 [facility] [place] Eosinophils Auto (Bld) [#/Vo l]Ordered By: Monika Camarillo on 08-02-2022 Eosinophils (Bld) [#/Vol] 0.4 10*3/uL 0.0-0.45 [facility] Eosinophils/100 WBC Auto (Bl d)Ordered By: Monika Camarillo on 08-02-2022 Eosinophils/100 WBC (Bld) 12.8 % . [facility] Erythrocyte distribution wid th Auto (RBC) [Ratio]Ordered By: Monika Camarillo on 08-02-2022 Erythrocyte distribution width (RBC) [Ratio] 12.7 % 11.9-15.3 [facility] Estimated glomerular filtrat ion rate (GFR) non- AmericanOrdered By: Monika Camarillo on 08-02-2022 GFR/1.73 sq M.predicted among non-blacks MDRD (S/P/Bld) [Vol rate/Area] > 60 mL/Min [facility] Globulin Calc (S) [Mass/Vol] Ordered By: Monika Camarillo on 08-02-2022 Globulin (S) [Mass/Vol] 2.4 g/dL [facility] HCG ( test) IA.rapi d Ql (U)Ordered By: Monika Camarillo on 08-02-2022 HCG ( test) Ql (U) Negative [facility] Hematocrit Auto (Bld) [Volum e fraction]Ordered By: Monika Camarillo on 08-02-2022 Hematocrit (Bld) [Volume fraction] 38.4 % 34.0-46.4 [facility] Hemoglobin [Mass/volume] in BloodOrdered By: Monika Camarillo on 08-02-2022 Hemoglobin (Bld) [Mass/Vol] 13.1 g/dL 11.8-15.4 [facility] Ketones Auto test strip (U) [Mass/Vol]Ordered By: Monika Camarillo on 08-02-2022 Ketones (U) [Mass/Vol] Negative Negative [facility] - Hematology and Cell countsOrdered By: Monika Camarillo on 08-02-2022 Nucleated RBC/100 WBC (Bld) [Ratio] 0.1 % 0-0.5 [facility] Leukocytes [#/volume] in Blo od by Automated countOrdered By: Monika Camarillo on 08-02-2022 WBC (Bld) [#/Vol] 3.4 10*3/uL 4.5-11.0 [facility] Lymphocytes Auto (Bld) [#/Vo l]Ordered By: Monika Camarillo on 08-02-2022 Lymphocytes (Bld) [#/Vol] 1.0 10*3/uL 1.00-4.8 [facility] Lymphocytes/100 WBC Auto (Bl d)Ordered By: Monika Camarillo on 08-02-2022 Lymphocytes/100 WBC (Bld) 28.2 % . [facility] MCH Auto (RBC) [Entitic mass ]Ordered By: Monika Camarillo on 08-02-2022 MCH (RBC) [Entitic mass] 31.1 pg 24.7-34.3 [facility] MCHC Auto (RBC) [Mass/Vol]Or dered By: Monika Camarillo on 08-02-2022 MCHC (RBC) [Mass/Vol] 34.1 g/dL 32.0-35.0 [facility] MCV Auto (RBC) [Entitic vol] Ordered By: Monika Camarillo on 08-02-2022 MCV (RBC) [Entitic vol] 91.4 fL 80-100 [facility] Monocytes Auto (Bld) [#/Vol] Ordered By: Monika Camarillo on 08-02-2022 Monocytes (Bld) [#/Vol] 0.3 10*3/uL 0.0-0.8 [facility] Monocytes/100 WBC Auto (Bld) Ordered By: Monika Camarillo on 08-02-2022 Monocytes/100 WBC (Bld) 7.7 % . [facility] Neutrophils Auto (Bld) [#/Vo l]Ordered By: Monika Camarillo on 08-02-2022 Neutrophils (Bld) [#/Vol] 1.7 10*3/uL 1.8-7.7 [facility] Neutrophils/100 WBC Auto (Bl d)Ordered By: Monika Camarillo on 08-02-2022 Neutrophils/100 WBC (Bld) 50.5 % . [facility] Nitrite Test strip Ql (U)Ord ered By: Monika Camarillo on 08-02-2022 Nitrite Ql (U) Negative Negative [facility] No Panel InformationOrdered By: Monika Camarillo on 08-02-2022 Estimated GFR () > 60 mL/Min [facility] Comment on above: GFR estimated refere nce range: According to KDOQI guidelines, <60 ml/min/1.73m2 is sufficient to diagnose a patient with chronic kidney disease. Pharmacy Creatinine Clearance (Chem 79.12 [facility] Platelet mean volume Auto (B ld) [Entitic vol]Ordered By: Monika Camarillo on 08-02-2022 Platelet mean volume (Bld) [Entitic vol] 7.8 fL 6.3-10.7 [facility] Platelets Auto (Bld) [#/Vol] Ordered By: Monika Camarillo on 08-02-2022 Platelets (Bld) [#/Vol] 203 10*3/uL 150-450 [facility] Protein Auto test strip (U) [Mass/Vol]Ordered By: Monika Camarillo on 08-02-2022 Protein (U) [Mass/Vol] Negative Negative [facility] Protein [Mass/volume] in Ser um or PlasmaOrdered By: Monika Camarillo on 08-02-2022 Protein [Mass/Vol] 6.1 g/dL 6.1-7.9 [facility] RBC Auto (Bld) [#/Vol]Ordere d By: Monika Camarillo on 08-02-2022 RBC (Bld) [#/Vol] 4.20 10*6/uL 3.60-5.00 [facility] Serum or plasma alanine gaspar otransferase measurement without P-5'-P (enzymatic activiOrdered By: Monika Camarillo on 08-02-2022 ALT No additional P-5'-P [Catalytic activity/Vol] 13 U/L 10-60 [facility] Serum or plasma albumin/glob ulin mass ratioOrdered By: Monika Camarillo on 08-02-2022 Albumin/Globulin [Mass ratio] 1.5 {ratio} [facility] Serum or plasma alkaline radames sphatase measurement (enzymatic activity/volume)Ordered By: Monika Camarillo on 08-02-2022 ALP [Catalytic activity/Vol] 46 U/L 32-92 [facility] Serum or plasma anion gap de terminationOrdered By: Monika Camarillo on 08-02-2022 Anion gap [Moles/Vol] 11.0 mmol/L 6.0-15.0 [facility] Serum or plasma aspartate am inotransferase measurement (enzymatic activity/volume)Ordered By: Monika Camarillo on 08-02-2022 AST [Catalytic activity/Vol] 16 U/L 10-42 [facility] Serum or plasma calcium unique urement (mass/volume)Ordered By: Monika Camarillo on 08-02-2022 Calcium [Mass/Vol] 9.2 mg/dL 8.2-10.2 [facility] Serum or plasma chloride debbie surement (moles/volume)Ordered By: Monika Camarillo on 08-02-2022 Chloride [Moles/Vol] 104 mmol/L 95-114 [facility] Serum or plasma glucose unique urement (mass/volume)Ordered By: Monika Camarillo on 08-02-2022 Glucose [Mass/Vol] 82 mg/dL 70-100 [facility] Comment on above: ADA recommended refe rence rangeRandom Glucose Reference Range is dependent on time and content of last meal. Glucose of more than 200 mg/dL in a nonstressed, ambulatory subject supports the diagnosis of Diabetes Mellitus. Serum or plasma potassium me asurement (moles/volume)Ordered By: Monika Camarillo on 08-02-2022 Potassium [Moles/Vol] 3.4 mmol/L 3.5-5.1 [facility] [place] Serum or plasma sodium measu rement (moles/volume)Ordered By: Monika Camarillo on 08-02-2022 Sodium [Moles/Vol] 137 mmol/L 136-146 [facility] Serum or plasma total biliru bin measurement (mass/volume)Ordered By: Monika Camarillo 08-02-2022 Bilirubin [Mass/Vol] 0.6 mg/dL 0.3-1.2 [facility] Serum or plasma total carbon dioxide measurement (moles/volume)Ordered By: Monika Camarillo on 08-02-2022 CO2 [Moles/Vol] 25.4 mmol/L 22.0-30.0 [facility] Serum or plasma urea nitroge n measurement (mass/volume)Ordered By: Monika Camarillo on 08-02-2022 Urea nitrogen [Mass/Vol] 8 mg/dL 06-28 [facility] Specific gravity Auto test s trip (U) [Rel density]Ordered By: Monika Camarillo on 08-02-2022 Specific gravity (U) [Rel density] 1.009 1.001-1.030 [facility] Urine clarity by refractomet ry automatedOrdered By: Monika Camarillo on 08-02-2022 Clarity Refractometry automated (U) Clear Clear [facility] Urine glucose measurement by automated test strip (mass/volume)Ordered By: Monika Camarillo on 08-02-2022 Glucose Auto test strip (U) [Mass/Vol] Normal mg/dL Normal [facility] Urine hemoglobin detection b y automated test stripOrdered By: Monika Camarillo on 08-02-2022 Hemoglobin Auto test strip Ql (U) Negative Negative [facility] Urine lactic acid measuremen tOrdered By: Monika Camarillo on 08-02-2022 Lactate (U) [Moles/Vol] 1.4 mmol/L 0.5-2.2 [facility] Urine leukocyte esterase det ection by automated test stripOrdered By: Monika Camarillo on 08-02-2022 Leukocyte esterase Auto test strip Ql (U) Negative Negative [facility] Urobilinogen Auto test strip (U) [Mass/Vol]Ordered By: Monika Camarillo on 08-02-2022 Urobilinogen (U) [Mass/Vol] Normal mg/dL Normal [facility] pH Auto test strip (U)Ordere d By: Monika Camarillo on 08-02-2022 pH (U) 8.0 [pH] 5.0-9.0 [facility] CBC AUTO DIFFon 07-29-2022 BASO # 0.0 103/ul Normal 0.0-0.1 [facility] Comment on above: Performed By: #### C BC #### [facility] [address] [place] [address] Dr. Lester Yen Basophils/100 WBC (Bld) 1.1 % Normal 0.2-2.0 [facility] Comment on above: Performed By: #### C BC #### [facility] [address] [place] [address] Dr. Lester Yen EO # 0.4 103/ul Normal 0.0-0.7 [facility] Comment on above: Performed By: #### C BC #### [facility] [address] [place] [address] Dr. Lester Yen Eosinophils/100 WBC (Bld) 10.8 % Critically high 0.9-7.0 [facility] Comment on above: Performed By: #### C BC #### [facility] [address] [place] [address] Dr. Lester Yen Erythrocyte distribution width (RBC) [Ratio] 12.0 % Normal 11.0-15.0 [facility] Comment on above: Performed By: #### C BC #### [facility] [address] [place] [address] Dr. Lester Yen Hematocrit (Bld) [Volume fraction] 36.3 % Normal 36.0-48.0 [facility] Comment on above: Performed By: #### C BC #### [facility] [address] [place] [address] Dr. Lester Yen Hemoglobin (Bld) [Mass/Vol] 12.4 g/dL Normal 12.0-16.0 [facility] Comment on above: Performed By: #### C BC #### [facility] [address] [place] [address] Dr. Lester Yen IG # 0.00 10e3/ul Normal 0.00-0.03 [facility] Comment on above: Performed By: #### C BC #### [facility] [address] [place] [address] Dr. Lester Yen IG % 0.0 % Normal 0.0-0.5 [facility] Comment on above: Performed By: #### C BC #### [facility] [address] [place] [address] Dr. Lester Yen LYMPH # 1.6 103/ul Normal 1.2-3.8 [facility] Comment on above: Performed By: #### C BC #### [facility] [address] [place] [address] Dr. Lester Yen Lymphocytes/100 WBC (Bld) 41.6 % Normal 20.5-60.0 [facility] Comment on above: Performed By: #### C BC #### [facility] [address] [place] [address] Dr. Lester Yen MANUAL DIFF REQ NO Normal [facility] Comment on above: Performed By: #### C BC #### [facility] [address] [place] [address] Dr. Lester Yen MCH (RBC) [Entitic mass] 31.9 pg Normal 26.7-34.0 [facility] Comment on above: Performed By: #### C BC #### [facility] [address] [place] [address] Dr. Lester Yen MCHC (RBC) [Mass/Vol] 34.2 g/dL Normal 29.9-35.2 [facility] Comment on above: Performed By: #### C BC #### [facility] [address] [place] [address] Dr. Lester Yen MCV (RBC) [Entitic vol] 93.3 fL Normal 81.0-99.0 [facility] Comment on above: Performed By: #### C BC #### [facility] [address] [place] [address] Dr. Lester Yen MONO # 0.3 103/ul Normal 0.3-0.8 [facility] Comment on above: Performed By: #### C BC #### [facility] [address] [place] [address] Dr. Lester Yen Monocytes/100 WBC (Bld) 8.2 % Normal 1.7-12.0 [facility] Comment on above: Performed By: #### C BC #### [facility] [address] [place] [address] Dr. Lester Yen NEUT # 1.5 103/ul Normal 1.4-6.5 [facility] Comment on above: Performed By: #### C BC #### [facility] [address] [place] [address] [address] Lester Yen Neutrophils/100 WBC (Bld) 38.3 % Critically low 43.0-75.0 [facility] Comment on above: Performed By: #### C BC #### [facility] [address] [place] [address] [address] Lester Yen Platelet mean volume (Bld) [Entitic vol] 9.3 fL Critically low 9.5-13.5 [facility] Comment on above: Performed By: #### C BC #### [facility] [address] [place] [address] [address] Lester Yen PLT 184 103/ul Normal 150-450 [facility] Comment on above: Performed By: #### C BC #### [facility] [address] [address] Dr. Lester Yen RBC 3.89 106/ul Critically low 4.20-5.40 [facility] Comment on above: Performed By: #### C BC #### [facility] [address] [address] [address] Lester Yen WBC 3.8 103/ul Critically low 4.0-11.[address] [facility] Comment on above: Performed By: #### C BC #### [facility] [address] [address] [address] Lester Yen Covid-19 PCR ([facility])on 07-07 SARS-CoV-2 (COVID-19) RNA JOSE+probe Ql (Unsp spec) Not detected Normal NOT DETECTED [facility] Comment on above: Result Comment: When diagnostic [...] for this test is supported by the [place] of Health and Human Service's declaration that [...] By: #### C ANJU PULIDO AMY #### [facility] [address] [place] [address] Dr. Lester Yen PREG QUANT HCGon 07-29-2022 HCG QUANT 1 mIU/mL Normal [facility] Comment on above: Performed By: #### C ANJU PULIDO AMY #### [facility] [address] [place] [address] Dr. Lester Yen HCG RANGE SEE BELOW Normal [facility] Comment on above: Result Comment: 5-50 0.2-1 WEEK 50-500 1-2 WEEKS 100-5,000 2-3 WEEKS 500-10,000 3-4 WEEKS 1,000-50,000 4-5 WEEKS 10,000-100,000 5-6 WEEKS 15,000-200,000 6-8 WEEKS 10,000-100,000 2-3 MONTHS Performed By: #### C ANJU PULIDO AMY #### [facility] [address] [place] [address] Dr. Lester Yen HIV 1 and HIV-2 antibody ass ay with HIV-1 p24 antigen detectionOrdered By: Dominic Hester on 06-18-2022 HIV 1+2 Ab+HIV1 p24 Ag IA Ql Non-Reactive Non Reactive [facility] Comment on above: HIV NegativeHIV-1/HI V-2 antibodies and HIV-1 p24 antigen were NOTdetected. There is no laboratory evidence of HIV infection.Performed at: [facility] [address] [id number] Director: Lebron Manzo PhD, Phone: [phone] Hepatitis B virus surface Ag [Presence] in Serum or Plasma by ImmunoassayOrdered By: Dominic Hester on 06-18-2022 HBV surface Ag IA Ql Negative Negative [facility] Hepatitis C virus RNA [Units /volume] (viral load) in Serum or Plasma by JOSE with probOrdered By: Dominic Hester on 06-18-2022 HCV RNA JOSE+probe Qn N/A [facility] Hepatitis C virus RNA [log u nits/volume] (viral load) in Serum or Plasma by JOSE withOrdered By: Dominic Hester on 06-18-2022 HCV RNA JOSE+probe [Log units/Vol] N/A [facility] No Panel InformationOrdered By: Dominic Hester on 06-18-2022 Hepatitis A IgM Antibody Negative Negative [facility] Hepatitis B Core IgM Antibody Negative Negative [facility] Hepatitis C Interpretation See comment . [facility] Comment on above: NegativeNot infected with HCV, unless recent infection issuspected or other evidence exists to indicate HCVinfection.Performed at: [facility] [address] [id number] Director: Lebron Manzo PhD, Phone: [phone] Hepatitis C RNA Quantitative N/A [facility] Reagin Ab [Presence] in Seru m by RPROrdered By: Dominic Hester on 06-18-2022 Reagin Ab RPR Ql (S) Non-Reactive Non Reactive [facility] Comment on above: Performed at: [facility] [address] [id number] Director: Lebron Manzo PhD, Phone: [phone] Serum or plasma hepatitis C virus antibody signal/cutoff ratio by immunoassay (relatiOrdered By: Dominic Hester on 06-18-2022 HCV Ab Signal/Cutoff IA [Rel units/Vol] <0.1 s/co ratio 0.0-0.9 [facility] CHLAMYDIA/GONOCOCCUS JOSE (SW AB/URINE/PAPon 06-04-2022 Chlamydia trachomatis, JOSE Negative Normal Negative [facility] Comment on above: Performed By: #### C T/NGNA #### [facility] [address] [address] [address] Lester Yen Neisseria gonorrhoeae, JOSE Negative Normal Negative [facility] Comment on above: Performed By: #### C T/NGNA #### [facility] [address] [place] [address] Dr. Lester Yen VAGINITIS/VAGINOSIS DNA PROB Davide 06-02-2022 Tigist species Negative Normal Negative [facility] Comment on above: Performed By: #### C MP LIPA, SYLVIA #### [facility] [address] [place] [address] Dr. Lester Yen Gardnerella vaginalis Negative Normal Negative [facility] Comment on above: Performed By: #### C MP, LIPA, SYLVIA #### [facility] [address] [place] [address] Dr. Lester Yen Trichomonas vaginalis Negative Normal Negative [facility] Comment on above: Performed By: #### C MP LIPA, SYLVIA #### [facility] [address] [place] [address] Dr. Lester Yen AMYLASEon 05-28-2022 Amylase [Catalytic activity/Vol] 48 U/L Normal 25-115 [facility] Comment on above: Performed By: #### C MP LIPA, SYLVIA #### [facility] [address] [place] [address] Dr. Lester Yen CBC AUTO DIFFon 05-28-2022 BASO # 0.0 103/ul Normal 0.0-0.1 [facility] Comment on above: Performed By: #### C BC #### [facility] [address] [place] [address] Dr. Lester Yen Basophils/100 WBC (Bld) 0.5 % Normal 0.2-2.0 [facility] Comment on above: Performed By: #### C BC #### [facility] [address] [place] [address] Dr. Lester Yen EO # 0.3 103/ul Normal 0.0-0.7 [facility] Comment on above: Performed By: #### C BC #### [facility] [address] [place] [address] Dr. Lester Yen Eosinophils/100 WBC (Bld) 5.7 % Normal 0.9-7.0 [facility] Comment on above: Performed By: #### C BC #### [facility] [address] [address] [address] Lester Yen Erythrocyte distribution width (RBC) [Ratio] 12.6 % Normal 11.0-15.0 [facility] Comment on above: Performed By: #### C BC #### [facility] [address] [address] [address] Lester Yen Hematocrit (Bld) [Volume fraction] 39.5 % Normal 36.0-48.0 [facility] Comment on above: Performed By: #### C BC #### [facility] [address] [place] [address] Dr. Lester Yen Hemoglobin (Bld) [Mass/Vol] 13.2 g/dL Normal 12.0-16.0 [facility] Comment on above: Performed By: #### C BC #### [facility] [address] [place] [address] Dr. Lester Yen IG # 0.01 10e3/ul Normal 0.00-0.03 [facility] Comment on above: Performed By: #### C BC #### [facility] [address] [place] [address] Dr. Lester Yen IG % 0.2 % Normal 0.0-0.5 [facility] Comment on above: Performed By: #### C BC #### [facility] [address] [place] [address] Dr. Lester Yen LYMPH # 1.1 103/ul Critically low 1.2-3.[address] [facility] Comment on above: Performed By: #### C BC #### [facility] [address] [place] [address] Dr. Lester Yen Lymphocytes/100 WBC (Bld) 18.9 % Critically low 20.5-60.0 [facility] Comment on above: Performed By: #### C BC #### [facility] [address] [place] [address] Dr. Lester Yen MANUAL DIFF REQ NO Normal [facility] Comment on above: Performed By: #### C BC #### [facility] [address] [place] [address] Dr. Lester Yen MCH (RBC) [Entitic mass] 31.1 pg Normal 26.7-34.0 [facility] Comment on above: Performed By: #### C BC #### [facility] [address] [place] [address] Dr. Lester Yen MCHC (RBC) [Mass/Vol] 33.4 g/dL Normal 29.9-35.2 [facility] Comment on above: Performed By: #### C BC #### [facility] [address] [place] [address] Dr. Lester Yen MCV (RBC) [Entitic vol] 93.2 fL Normal 81.0-99.0 [facility] Comment on above: Performed By: #### C BC #### [facility] [address] [place] [address] Dr. Lester Yen MONO # 0.5 103/ul Normal 0.3-0.8 [facility] Comment on above: Performed By: #### C BC #### [facility] [address] [place] [address] Dr. Lester Yen Monocytes/100 WBC (Bld) 8.4 % Normal 1.7-12.0 [facility] Comment on above: Performed By: #### C BC #### [facility] [address] [place] [address] Dr. Lester Yen NEUT # 3.9 103/ul Normal 1.4-6.5 [facility] Comment on above: Performed By: #### C BC #### [facility] [address] [place] [address] Dr. Lester Yen Neutrophils/100 WBC (Bld) 66.3 % Normal 43.0-75.0 [facility] Comment on above: Performed By: #### C BC #### [facility] [address] [place] [address] Dr. Lester Yen Platelet mean volume (Bld) [Entitic vol] 9.8 fL Normal 9.5-13.5 [facility] Comment on above: Performed By: #### C BC #### [facility] [address] [place], [place] [address] Dr. Lester Yen PLT 186 103/ul Normal 150-450 [facility] Comment on above: Performed By: #### C BC #### [facility] [address] [place], [place] [address] Dr. Lester Yen RBC 4.24 106/ul Normal 4.20-5.40 [facility] Comment on above: Performed By: #### C BC #### [facility] [address] [place], [place] [address] Dr. Lester Yen WBC 5.9 103/ul Normal 4.0-11.0 [facility] Comment on above: Performed By: #### C BC #### [facility] [id number] Lester Yen CT ABD/PELV W CONon [...] TOR JIN Date: 2022-05-28 12:57 Normal [facility] ER URINE PROFILEon 2 Bilirubin Ql (U) Negative Normal NEGATIVE [facility] Comment on above: Performed By: #### E RUR, PREGU #### [facility] [address] [place] [address] Dr. Lester Yen Clarity (U) CLEAR Normal CLEAR [facility] Comment on above: Performed By: #### E RUR, PREGU #### [facility] [address] [place] [address] Dr. Lester Yen Color (U) LT. YELLOW Normal YELLOW [facility] Comment on above: Performed By: #### E RUR, PREGU #### [facility] [address] [place] [address] Dr. Lester Yen ERUAHMarianela A micrscopic examination will be performed if indicated. Normal [facility] Comment on above: Performed By: #### E RUR, PREGU #### [facility] [address] [place] [address] Dr. Lester Yen Glucose Ql (U) Negative Normal NEGATIVE [facility] Comment on above: Performed By: #### E RUR, PREGU #### [facility] [address] [place] [address] Dr. Lester Yen Hemoglobin Ql (U) Negative Normal NEGATIVE [facility] Comment on above: Performed By: #### E RUR, PREGU #### [facility] [address] [place] [address] Dr. Lester Yen Ketones Ql (U) Negative Normal NEGATIVE [facility] Comment on above: Performed By: #### E RUR, PREGU #### [facility] [address] [place] [address] Dr. Lester Yen LEUKOCYTES Negative Normal NEGATIVE [facility] Comment on above: Performed By: #### E RUR, PREGU #### [facility] [address] [place] [address] Dr. Lester Yen Nitrite Ql (U) Negative Normal NEGATIVE [facility] Comment on above: Performed By: #### E RUR, PREGU #### [facility] [address] [place] [address] Dr. Lester Yen pH (U) 6.0 [pH] Normal 5-9 [facility] Comment on above: Performed By: #### E RUR, PREGU #### [facility] [address] [place] [address] Dr. Lester Yen SPEC GRAVITY <=1.005 Abnormal 1.005-<=1.02 5 [facility] Comment on above: Performed By: #### E MANUELR, PREGU #### [facility] [address] [place] [address] Dr. Lester Yen UA PROTEIN Negative Normal NEGATIVE/ TRACE [facility] Comment on above: Performed By: #### Darian RUR, PREGU #### [facility] [address] [place] [address] Dr. Lester Yen UR MICRO IND NOT INDICATED Normal [facility] Comment on above: Performed By: #### E RUR, PREGU #### [facility] [address] [place] [address] Dr. Lester Yen Urobilinogen Qn (U) 0.2 {Olivier'U}/dL Normal 0.2 - 1. 0 [facility] Comment on above: Performed By: #### E RUR, PREGU #### [facility] [address] [place] [address] Dr. Lester Yen LIPASEon 05-28-2022 Lipase [Catalytic activity/Vol] 96.0 U/L Normal 73.0-393.0 [facility] Comment on above: Performed By: #### C MP, LIPA, SYLVIA #### [facility] [address] [place] [address] Dr. Lester Yen URon 05-28-2022 , QUAL Negative Normal NEGATIVE [facility] Comment on above: Performed By: #### E RUR, PREGU #### [facility] [address] [place] [address] Dr. Lester Yen PROF 14(COMP METB)on 022 Albumin [Mass/Vol] 4.0 g/dL Normal 3.4-5.0 [facility] Comment on above: Performed By: #### C MP, LIPA, SYLVIA #### [facility] [address] [place] [address] Dr. Lester Yen Albumin/Globulin [Mass ratio] 1.4 {ratio} Normal [facility] Comment on above: Performed By: #### C MP, LIPA, SYLVIA #### [facility] [address] [place] [address] Dr. Lester Yen ALP [Catalytic activity/Vol] 56 U/L Normal 46-116 [facility] Comment on above: Performed By: #### C MP, LIPA, SYLVIA #### [facility] [address] [place] [address] Dr. Lester Yen ALT [Catalytic activity/Vol] 14 U/L Normal 14-59 [facility] Comment on above: Performed By: #### C MP, LIPA, SYLVIA #### [facility] [address] [place] [address] Dr. Lester Yen Anion gap [Moles/Vol] 13.3 mmol/L Normal [facility] Comment on above: Performed By: #### C MP, LIPA, SYLVIA #### [facility] [address] [place] [address] Dr. Lester Yen AST [Catalytic activity/Vol] 11 U/L Critically low 15-37 [facility] Comment on above: Performed By: #### C MP, LIPA, SYLVIA #### [facility] [address] [place] [address] Dr. Lester Yen Bilirubin [Mass/Vol] 0.5 mg/dL Normal 0.2-1.0 [facility] Comment on above: Performed By: #### C MP, LIPA, SYLVIA #### [facility] [address] [place] [address] Dr. Lester Yen Calcium [Mass/Vol] 8.9 mg/dL Normal 8.5-10.1 [facility] Comment on above: Performed By: #### C ANJU PULIDO AMY #### [facility] [address] [address] [address] Lester Yen Chloride [Moles/Vol] 105 mmol/L Normal 98-107 [facility] Comment on above: Performed By: #### C ANJU PULIDO, SYLVIA #### [facility] [address] [address] [address] Lester Yen CO2 [Moles/Vol] 24.4 mmol/L Normal 21.0-32.0 [facility] Comment on above: Performed By: #### C ANJU PULIDO AMY #### [facility] [address] [place] [address] Dr. Lester Yen Creatinine [Mass/Vol] 0.88 mg/dL Normal 0.55-1.02 [facility] Comment on above: Performed By: #### C ANJU PULIDO, SYLVIA #### [facility] [address] [place] [address] Dr. Lester Yen EGFR-AF [place] >60 Normal >=60 [facility] Comment on above: Performed By: #### C ANJU PULIDO, SYLVIA #### [facility] [address] [place] [address] Dr. Lester Yen EGFR-NON AF [place] >60 Normal >=60 [facility] Comment on above: Performed By: #### C ANJU PULIDO, SYLVIA #### [facility] [address] [place] [address] Dr. Lester Yen Globulin (S) [Mass/Vol] 2.8 g/dL Normal [facility] Comment on above: Performed By: #### C ANJU PULIDO, SYLVIA #### [facility] [address] [place] [address] Dr. Lester Yen Glucose [Mass/Vol] 100 mg/dL Normal 74-106 [facility] Comment on above: Performed By: #### C ANJU PULIDO, SYLVIA #### [facility] [address] [address] [address] Lester Yen Potassium [Moles/Vol] 3.7 mmol/L Normal 3.5-5.1 [facility] Comment on above: Performed By: #### C ANJU PULIDO, SYLVIA #### [facility] [address] [address] [address] Lester Yen Protein [Mass/Vol] 6.8 g/dL Normal 6.4-8.2 [facility] Comment on above: Performed By: #### C ANJU PULIDO, SYLVIA #### [facility] [address] [address] [address] Lester Yen Sodium [Moles/Vol] 139 mmol/L Normal 136-145 [facility] Comment on above: Performed By: #### C ANJU PULIDO, SYLVIA #### [facility] [address] [place] [address] Dr. Lester Yen Urea nitrogen [Mass/Vol] 13.0 mg/dL Normal 7.0-18.0 [facility] Comment on above: Performed By: #### C ANJU PULIDO, SYLVIA #### [facility] [address] [place] [address] Dr. Lester Yen Urea nitrogen/Creatinine [Mass ratio] 14.8 mg/mg Normal [facility] Comment on above: Performed By: #### C ANJU PULIDO, SYLVIA #### [facility] [address] [place] [address] Dr. Lester Yen Custodial Documentson 04-19-2021 Custodial Documents [id number]:127 Normal [facility] Custodial Documentson 06-06-2020 Custodial Documents Custodial Nurse Visit 14 day Health Appraisal Date [...] forearm Date vial opened: 05/18/2020 Lot number: [id number] Expiration date: 01/24 PPD Comments: PPD Results [...] wish to attend AA Meetings? _ sure Custodial Assessment 05/31/20 15:54:00 Custodial Assessment Entered On: 05/31/2020 15:56 EDT Performed [...] for MERS/COVID-19 : N/A Chanell Judd RN 05/31/2020 15:54 EDT Summary Chief Complaint : [...] Pressure Posi (more content not included)... Normal [facility] Custodial Documentson 05-29-2020 Custodial Documents [id number]:127 Normal [facility] Chlam/GC/Trich,NAAon 020 C. trachomatis rRNA JOSE+probe Ql (Unsp spec) Negative Invalid Interpretation Code Negative [facility] Comment on above: Performed By: #### 1 [id number] #### [facility] [address] [place] [address] N. gonorrhoeae rRNA JOSE+probe Ql (Unsp spec) Negative Invalid Interpretation Code Negative [facility] Comment on above: Performed By: #### 1 [id number] #### [facility] [address] [place] [address] T. vaginalis DNA JOSE+probe Ql (Unsp spec) Negative Invalid Interpretation Code Negative [facility] Comment on above: Result Comment: Perf ormed at: =G [facility] [address], [place] [id number] MD Jama Valdivia Performed By: #### 1 [id number] #### [facility] [address] [place] [address] Coding Summary.on 05-15-2020 Coding Summary. CODING DATE: 05/15/2020 FINAL [facility] STATUS: Home (Routine DC) PAYOR: Medicaid EA DESCRIPTION 0425 LEVEL I OTHER MISCELLANEOUS ANCILLARY [...] Revised Date Saved: 05/15/2020 10:37 am Normal [facility] Amylaseon 05-14-2020 Amylase [Catalytic activity/Vol] 58 U/L Normal 25-157 [facility] Comment on above: Performed By: #### 2 [id number], [id number], [id number], [id number], [id number], [id number], [id number] ####[facility] [address] [place] [address] Auto Diffon 05-14-2020 Basophils/100 WBC (Bld) 0.5 % Normal 0.0-2.0 [facility] Comment on above: Order Comment: Order Added by Discern Expert. Performed By: #### 2 [id number], [id number], [id number], [id number], 4896461, 0373784, [id number] ####[facility] [address] [place] [address] Basophils/Leukocytes Auto (Bld) [Pure # fraction] 0.0 E9/L Normal 0.0-0.2 [facility] Comment on above: Order Comment: Order Added by Discern Expert. Performed By: #### 2 [id number], [id number], [id number], [id number], 9150369, 9104963, 3669976 ####[facility] [address] [place] [address] Eosinophils/100 WBC (Bld) 8.4 % High 0.0-8.0 [facility] Comment on above: Order Comment: Order Added by Discern Expert. Performed By: #### 2 [id number], [id number], 4572333, 1166647, 2389581, 7323975, 7840204 ####[facility] [address] [place] [address] Eosinophils/Leukocytes Auto (Bld) [Pure # fraction] 0.5 E9/L Normal 0.0-0.5 [facility] Comment on above: Order Comment: Order Added by Discern Expert. Performed By: #### 2 [id number], [id number], 0609743, 4589599, 1126700, 3940556, 4053817 ####[address] [place] [address] Lymphocytes/100 WBC (Bld) 31.4 % Normal 14.0-50.0 [facility] Comment on above: Order Comment: Order Added by Discern Expert. Performed By: #### 2 [id number], [id number], 2142047, 7326325, 2603651, 4537390, 2139210 ####[facility] [address] [place] [address] Lymphocytes/Leukocytes Auto (Bld) [Pure # fraction] 1.8 E9/L Normal 1.0-4.0 [facility] Comment on above: Order Comment: Order Added by Discern Expert. Performed By: #### 2 898230, [id number], 1773062, 5667624, 9151278, 9660251, 0986737 ####[facility] [address] [place] [address] Monocytes/100 WBC (Bld) 8.2 % Normal 4.0-14.0 [facility] Comment on above: Order Comment: Order Added by Discern Expert. Performed By: #### 2 291242, 10350749, 1205182, 1435142, 8523659, 9879968, 9398706 ####[facility] [address] [place] [address] Monocytes/Leukocytes Auto (Bld) [Pure # fraction] 0.5 E9/L Normal 0.2-1.0 [facility] Comment on above: Order Comment: Order Added by Discern Expert. Performed By: #### 2 041178, 08083009, 4235233, 7778469, 8522614, 5450641, 8546167 ####[facility] [address] [place] [address] Neutrophils/100 WBC (Bld) 51.5 % Normal 36.0-75.0 [facility] Comment on above: Order Comment: Order Added by Discern Expert. Performed By: #### 2 630869, 73947042, 9649210, 2721291, 2696768, 8247621, 5049535 ####[facility] [address] [place] [address] Neutrophils/Leukocytes Auto (Bld) [Pure # fraction] 2.9 E9/L Normal 2.0-7.5 [facility] Comment on above: Order Comment: Order Added by Discern Expert. Performed By: #### 2 877410, 99896081, 9763371, 0895007, 4470781, 2809262, 6235304 ####[facility] [address] [place] [address] BMP 05-14-2020 Creatinine [Mass/Vol] 0.9 mg/dL Normal 0.5-1.3 [facility] Comment on above: Performed By: #### 2 341932, 85856752, 6164250, 6194092, 4228179, 9012025, 7725627 ####[facility] [address] [place] [address] Urea nitrogen [Mass/Vol] 14 mg/dL Normal 5-21 [facility] Comment on above: Performed By: #### 2 905578, 80800729, 1993284, 8079957, 6269538, 4845756, 2899444 ####[facility] [address] [place] [address] Urea nitrogen/Creatinine [Mass ratio] 16 No Units Normal 10-20 [facility] Comment on above: Performed By: #### 2 135197, 93938593, 4351511, 5500250, 5819660, 1833914, 4244060 ####[facility] [address] [place] [address] Anion gap [Moles/Vol] 12 mmol/L Normal 6-16 [facility] Comment on above: Performed By: #### 2 630930, 95698032, 9380804, 9833355, 2764645, 5674925, 2031760 ####[facility] [address] [place] [address] Calcium [Mass/Vol] 9.3 mg/dL Normal 8.9-11.1 [facility] Comment on above: Performed By: #### 2 942172, 46575290, 0262394, 7233867, 1070717, 0400878, 3381596 ####[facility] [address] [place] [address] Chloride [Moles/Vol] 103 mmol/L Normal 101-111 [facility] Comment on above: Performed By: #### 2 431316, 30892192, 6918407, 6448978, 9423433, 3424452, 7359160 ####[facility] [address] [place] [address] CO2 [Moles/Vol] 27 mmol/L Normal 21-31 [facility] Comment on above: Performed By: #### 2 646497, 80388001, 1369284, 5622682, 1733636, 9900220, 9183632 ####[facility] [address] [place] [address] Glucose [Mass/Vol] 89 mg/dL Normal 55-199 [facility] Comment on above: Result Comment: If t his glucose result represents a fasting glucose, interpretation should refer to the following reference range: 55-99 mg/dL Performed By: #### 2 433286, 36535075, 5770766, 6081472, 0276901, 2604992, 7136159 ####[facility] [address] [place] [address] Potassium [Moles/Vol] 3.8 mmol/L Normal 3.5-5.3 [facility] Comment on above: Performed By: #### 2 026680, 96574611, 9670204, 9471332, 8259059, 0953276, 9331867 ####[facility] [address] [place] [address] Sodium [Moles/Vol] 138 mmol/L Normal 135-145 [facility] Comment on above: Performed By: #### 2 406275, 69457001, 0450429, 5925859, 7562605, 5021081, 5729154 ####[facility] [address] [place] [address] CBC w/ Auto Diffon 0 Erythrocyte distribution width (RBC) [Ratio] 12.7 % Normal 10.9-14.2 [facility] Comment on above: Performed By: #### 2 225784, 63407663, 5149682, 9320529, 7078024, 8399274, 5204753 ####[address] [address] Hematocrit (Bld) [Volume fraction] 41.7 % Normal 34.0-46.0 [facility] Comment on above: Performed By: #### 2 934720, 73733245, 1994187, 4896119, 8855176, 3984849, 6460139 ####[address] [address] Hemoglobin (Bld) [Mass/Vol] 13.9 g/dL Normal 12.0-16.0 [facility] Comment on above: Performed By: #### 2 266540, 44718203, 6925301, 4024931, 3114342, 2753568, 2425374 ####[address] [address] MCH (RBC) [Entitic mass] 30.8 pg Normal 27.0-34.0 [facility] Comment on above: Performed By: #### 2 301203, 17851241, 4113232, 7031070, 6824641, 4387840, 0233647 ####[facility] [address] [place] [address] MCHC (RBC) [Mass/Vol] 33.3 g/dL Normal 31.4-36.0 [facility] Comment on above: Performed By: #### 2 292618, 63800631, 2502517, 0736882, 4332258, 4800702, 6873210 ####[address] [address] MCV (RBC) [Entitic vol] 92.5 fL Normal 80.0-100.0 [facility] Comment on above: Performed By: #### 2 192205, 14145888, 8640962, 9212622, 1475384, 7688090, 4570867 ####[address] [address] Platelet mean volume (Bld) [Entitic vol] 8.2 fL Normal 6.4-10.8 [facility] Comment on above: Performed By: #### 2 171254, 18535836, 4073512, 3139666, 2474409, 4820276, 2783244 ####[address] [address] Platelets (Bld) [#/Vol] 230.0 E9/L Normal 150.0-500.0 [facility] Comment on above: Performed By: #### 2 182943, 36637105, 9881339, 5569137, 8020344, 5414274, 5762765 ####[address] [address] RBC (Bld) [#/Vol] 4.5 E12/L Normal 4.3-5.9 [facility] Comment on above: Performed By: #### 2 749635, 10040525, 8186965, 5663370, 5060174, 9187388, 2476887 ####[address] [address] WBC corrected for nucl RBC Auto (Bld) [#/Vol] 5.7 E9/L Normal 4.0-11.0 [facility] Comment on above: Performed By: #### 2 408092, 67033328, 5887237, 1158197, 2314040, 3940842, 3339576 ####[facility] [address] [place] [address] Discharge Instructionson Discharge Instructions [id number] 080 [id number] #1.00CD:127 Normal [facility] ED Clinical Summaryon 2019 ED Clinical Summary [address] [address] ED Clinical Summary Person Information Name: BREANA PICKETT Viv/[facility] Age: 29 Years : 1990 Sex: Female Language: Bengali PCP: Mica CARLTON MD Marital Status: Single Phone: [phone] Visit Id: Visit Reason: Abdominal pain; STOMACH [...] 05/14/2020 04:35:55 05/14/2020 04:35:55 05/14/2020 04:35:55 ADDRESS: [address] [place] [id number] [facility] DOC NOTES: MEDICAL INFORMATION: Prescriptions Given: New Medications Printed Prescriptions levofloxacin (Levaquin 500 mg Tab) 1 Tablets By Mouth every day. Refills: 0. Medications to Continue with No Changes Other Medications escitalopram (Lexapro 10 mg Tab) 1 Tablets By Mouth every day. 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 Renner aware of patient c/o generalized abd pain, rates at 7/10. Order received for Franklin, 2 tabs, one-time only. Normal [facility] ED Note-Nursing Dr. Renner at bedside for results review. Normal [facility] ED Note-Nursing Patient to u/s Normal Fishe r [facility] ED Note-Nursing Dr. Renner at bedside for results update. Normal [facility] ED Note-Nursing Patient to xray. Normal Fis her [facility] ED Note-Nursing Dr. Renner at bedside for assessment. 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 Abdominal pain in female (R10.9: [...] 22:35:00) Lymph Auto: 31.4 % (05/13/20 22:35:00) [place] Auto: 8.2 % (05/13/20 22:35:00) Eos Auto: 8.4 % High (05/13/20 22:35:00) Basophil Auto: 0.5 % (05/13/20 22:35:00) Neutro Absolute: 2.9 E9/L (05/13/20 22:35:00) Lymph Absolute: 1.8 E9/L (05/13/20 22:35:00) [place] Absolute: 0.5 E9/L (05/13/20 22:35:00) Eos Absolute: 0.5 E9/L (05/13/20 (more content not included)... Normal [facility] Comment on above: Result Comment: Adolfo erlinda Signed By: Lucio Renner MD\.br\Date and Time [...] Document Reviewed: 01/11/2013 ExitCare? Patient Information ?2014 [employer]. This information is not intended to replace advice given to you by your health care provider. Make sure you discuss any questions you have with your health care provider. Normal [facility] ED Patient Summaryon 020 ED Patient Summary [address] [address] Patient Discharge Instructions Person Information Name: BREANA PICKETT Age: 29 Years Arrival Date: 05/13/2020 21:43:46 Discharge Diagnosis: 1:Abdominal pain in female; Pelvic pain Primary Care Physician: Mica CARLTON MD Provider Information Primary Provider: Lucio Renner MD Advanced Assistant Restaurant General Manager:None The exam and treatment you received in the Emergency Department were for an urgent problem and are not intended as complete care. It is important that you follow up with a doctor, nurse practitioner, or physician?s insurance underwriting assistant for ongoing care. 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 Patient Education Materials: Pelvic Pain, Female, Modw-ar-Ppyd A MESSAGE TO ALL PATIENTS REGARDING OPIOIDS PRESCRIPTION OPIOIDS: WHAT YOU NEED TO KNOW Prescription opioids can be used to help relieve frdvdnvc-aw-lswsnb pain and are often prescribed following a [...] tell your (more content not included)... Normal [facility] Hep Func Panelon 05-14-2020 Bilirubin.indirect [Mass or moles/Vol] UTC Abnormal 0.1-0.9 [facility] Comment on above: Result Comment: Resu lt verified by Discern Rule. Performed result UT (Unable to Calculate) was sent as an Alpha code due the inability to calculate a valid numeric value. Performed By: #### 2 845957, 13665317, 5479661, 9390179, 8244150, 3643550, 5729509 ####[facility] [address] [place] [address] Albumin [Mass/Vol] 4.2 g/dL Normal 3.3-5.0 [facility] Comment on above: Performed By: #### 2 866467, 42790230, 0715941, 6659694, 0648767, 1457602, 3543961 ####[facility] [address] [place] [address] Albumin/Globulin (S) [Mass conc ratio] 1.4 Normal 1.1-2.2 [facility] Comment on above: Performed By: #### 2 482309, 27588395, 6644872, 2684774, 1002802, 6621243, 2974930 ####[facility] [address] [place] [address] ALP [Catalytic activity/Vol] 62 Int._Unit/L Normal 21-98 [facility] Comment on above: Performed By: #### 2 082751, 53521645, 3639426, 5047827, 5977156, 4250268, 3906450 ####[facility] [address] [place] [address] ALT No additional P-5'-P [Catalytic activity/Vol] 15 Int._Unit/L Normal 6-46 [facility] Comment on above: Performed By: #### 2 462217, 59414299, 8192290, 3570232, 6653531, 0632888, 0990952 ####[facility] [address] [place] [address] AST [Catalytic activity/Vol] 15 Int._Unit/L Normal 5-43 [facility] Comment on above: Performed By: #### 2 803200, 93929176, 5702652, 0111077, 2774622, 6299642, 7181335 ####[address] [place] [address] Bilirubin [Mass/Vol] 0.8 mg/dL Normal 0.0-1.1 [facility] Comment on above: Performed By: #### 2 540767, 45313433, 9464274, 2562249, 5026338, 7908832, 8168916 ####[facility] [address] [place] [address] Bilirubin.direct [Mass/Vol] mg/dL Normal 0.1-0.4 [facility] Comment on above: Performed By: #### 2 024330, 28590466, 1307706, 1043842, 6931398, 8636243, 5017226 ####[address] [address] Globulin (S) [Mass/Vol] 2.9 g/dL Normal 1.4-4.0 [facility] Comment on above: Performed By: #### 2 603960, 91777522, 7883521, 1860454, 3802579, 7879390, 7030982 ####[facility] [address] [place] [address] Protein [Mass/Vol] 7.1 g/dL Normal 6.0-7.8 [facility] Comment on above: Performed By: #### 2 350029, 29063141, 1892299, 1550212, 0979054, 0110428, 4581849 ####[facility] [address] [place] [address] Lipase Levelon 05-14-2020 Lipase [Catalytic activity/Vol] 36 U/L Normal 13-58 [facility] Comment on above: Performed By: #### 2 788778, 04364143, 4520550, 6602152, 0386279, 5714035, 2961279 ####[facility] [address] [place] [address] U BetaHcg Qualon 05-14-2020 HCG.beta subunit (U) [Moles/Vol] Negative Normal [facility] Comment on above: Performed By: #### 2 1480896, 08623945 #### [facility] [address] [place] [address] UA With Cult Reflexon 2019 Bilirubin Ql (U) Negative Normal Negative [facility] Comment on above: Performed By: #### 2 9562956, 37821316 #### [facility] [address] [place] [address] Clarity (U) SL CLOUDY Abnormal Clear [facility] Comment on above: Performed By: #### 2 1804251, 39200280 #### [facility] [address] [place] [address] Color (U) YELLOW Normal Yellow [facility] Comment on above: Performed By: #### 2 6299877, 24415821 #### [facility] [address] [place] [address] Epithelial cells.squamous LM.HPF (Urine sed) [#/Area] 3-4 Normal 0-2 [facility] Comment on above: Performed By: #### 2 1580004, 47494055 #### [facility] [address] [place] [address] Glucose Test strip (U) [Mass/Vol] Negative Normal Negative [facility] Comment on above: Performed By: #### 2 7247909, 89462490 #### [facility] [address] [place] [address] Hemoglobin Ql (U) Negative Normal Negative [facility] Comment on above: Performed By: #### 2 7268823, 89084012 #### [facility] [address] [place] [address] Ketones (U) [Mass/Vol] TRACE Abnormal Negative [facility] Comment on above: Performed By: #### 2 2416537, 15100727 #### [facility] [address] [place] [address] Cadott.plasma/Cadott. RBC (Bld) [Mass ratio] 0-3 Normal 0-3 [facility] Comment on above: Performed By: #### 2 6272900, 49222079 #### [facility] [address] [place] [address] Nitrite Ql (U) Negative Normal Negative [facility] Comment on above: Performed By: #### 2 0894420, 41678520 #### [facility] [address] [place] [address] pH (U) 7.0 [pH] Invalid Interpretation Code 5.0-9.0 [facility] Comment on above: Performed By: #### 2 2308224, 28565763 #### [facility] [address] [place] [address] Protein (U) [Mass/Vol] Negative Normal Negative [facility] Comment on above: Performed By: #### 2 4785753, 24267645 #### [facility] [address] [place] [address] Specific gravity (U) [Rel density] 1.020 Invalid Interpretation Code 1.005-1.030 [facility] Comment on above: Performed By: #### 2 0205757, 62951639 #### [facility] [address] [place] [address] UA Spec Desc Clean Catch Normal [facility] Comment on above: Performed By: #### 2 6489914, 39042734 #### [facility] [address] [place] [address] Urobilinogen Qn (U) 0.2 {Olivier'U}/dL Normal 0.0-1.0 [facility] Comment on above: Performed By: #### 2 4782951, 43718067 #### [facility] [address] [place] [address] WBC Auto Ql (U) Negative Normal Negative [facility] Comment on above: Performed By: #### 2 0099062, 55694507 #### [facility] [address] [place] [address] WBC LM.HPF (Urine sed) [#/Area] 0-5 Normal 0-5 [facility] Comment on above: Performed By: #### 2 4392055, 13026248 #### [facility] [address] [place] [address] US Pelvis Non-OB Completeon 05-14-2020 US Pelvis [...] TUCKER Technical Comments Transabdominal Ultrasound Performed Normal [facility] XR Abdomen Series w/ Chest 1 [...] DO Transcribed by: GABRIELE Technologist: TERESA Normal [facility] eGFRon 05-14-2020 GFR/1.73 sq M.predicted among blacks MDRD (S/P/Bld) [Vol rate/Area] mL/min/{1.73_m2} Normal >=59 [facility] Comment on above: Order Comment: Order added by Discern Expert. Result Comment: eGFR is race adjusted. AA=. Performed By: #### 2 815719, 23704494, 3956931, 1684377, 5195392, 8862521, 0609824 ####[facility] [address] [place] [address] GFR/1.73 sq M.predicted among non-blacks MDRD (S/P/Bld) [Vol rate/Area] mL/min/{1.73_m2} Normal >=59 [facility] Comment on above: Order Comment: Order added by Discern Expert. Result Comment: [employer] pérez kidney disease could be indicated at eGFR's of less than 60 mL/min/1.73m2. Kidney failure is indicated at less than 15 mL/min/1.73m2. Performed By: #### 2 888971, 46257391, 5659546, 2647300, 7680311, 3343891, 0616051 ####[facility] [address] [place] [address] Consent for Treatmenton Consent for Treatment [id number] 00 [id number] #1.00CD:127 Normal [facility] Vital Signs Date Time Vital Sign Value Performing Clinician Facility 04-06-2025 15:27-0400 Body mass index (BMI) [Ratio] 29.05 kg/m2 Sylvia HEADLEY Work Phone: [facility] 04-06-2025 15:27-0400 Body weight 74.39 kg Sylvia HEADLEY Work Phone: [facility] 04-06-2025 15:27-0400 Diastolic blood pressure 74 mm[Hg] Sylvia HEADLEY Work Phone: [facility] 04-06-2025 15:27-0400 Systolic blood pressure 120 mm[Hg] Sylvia HEADLEY Work Phone: [facility] 03-23-2025 14:44-0400 Body mass index (BMI) [Ratio] 28.7 kg/m2 Dominic Mir DO Work Phone: [facility] 03-23-2025 14:44-0400 Body weight 73.48 kg Dominic Mir DO Work Phone: [facility] 03-23-2025 14:44-0400 Diastolic blood pressure 68 mm[Hg] Dominic Mir DO Work Phone: [facility] 03-23-2025 14:44-0400 Systolic blood pressure 112 mm[Hg] Dominic Mir DO Work Phone: [facility] 03-09-2025 14:55-0400 Body mass index (BMI) [Ratio] 28.21 kg/m2 Sylvia HEADLEY Work Phone: [facility] 03-09-2025 14:55-0400 Body weight 72.23 kg Sylvia Romero FANG Work Phone: [facility] 03-09-2025 14:55-0400 Diastolic blood pressure 60 mm[Hg] Sylvia Milianbruna HEADLEY Work Phone: [facility] 03-09-2025 14:55-0400 Systolic blood pressure 98 mm[Hg] Sylvia Romero FANG Work Phone: [facility] 02-23-2025 15:23-0400 Body mass index (BMI) [Ratio] 28.03 kg/m2 Dominic Mir DO Work Phone: [facility] 02-23-2025 15:23-0400 Body weight 71.78 kg Dominic Mir DO Work Phone: [facility] 02-23-2025 15:23-0400 Diastolic blood pressure 60 mm[Hg] Dominic Mir DO Work Phone: [facility] 02-23-2025 15:23-0400 Systolic blood pressure 100 mm[Hg] Dominic Mir DO Work Phone: [facility] 02-10-2025 10:44-0400 Diastolic blood pressure 54 mm[Hg] PHYSICIAN NO [facility] 02-10-2025 10:44-0400 Heart rate 53 /min PHYSICIAN NO [facility] 02-10-2025 10:44-0400 Respiratory rate 18 /min PHYSICIAN NO [facility] 02-10-2025 10:44-0400 SaO2% (BldA) [Mass fraction] 100 % PHYSICIAN NO [facility] 02-10-2025 10:44-0400 Systolic blood pressure 95 mm[Hg] PHYSICIAN NO [facility] 02-10-2025 08:40-0400 Body height 162.56 cm PHYSICIAN NO [facility] 02-10-2025 08:40-0400 Body weight 69.45 kg PHYSICIAN NO [facility] 02-10-2025 08:35-0400 Body temperature 98.2 [degF] PHYSICIAN NO [facility] 01-31-2025 15:23-0400 Body mass index (BMI) [Ratio] 28.48 kg/m2 Hector Power SHEAR SCRAPMAN Work Phone: [facility] 01-31-2025 15:23-0400 Body weight 72.94 kg Hector Vitalerly SHEAR SCRAPMAN Work Phone: [facility] 01-31-2025 15:23-0400 Diastolic blood pressure 58 mm[Hg] Hector Vitalerly SHEAR SCRAPMAN Work Phone: [facility] 01-31-2025 15:23-0400 Systolic blood pressure 100 mm[Hg] Hector Vitalerly SHEAR SCRAPMAN Work Phone: [facility] 12-28-2024 15:01-0400 Body mass index (BMI) [Ratio] 25.69 kg/m2 Dominic Mir DO Work Phone: [facility] 12-28-2024 15:01-0400 Body weight 65.77 kg Dominic Mir DO Work Phone: [facility] 12-28-2024 15:01-0400 Diastolic blood pressure 56 mm[Hg] Dominic Mir DO Work Phone: [facility] 12-28-2024 15:01-0400 Systolic blood pressure 96 mm[Hg] Dominic Mir DO Work Phone: [facility] 11-30-2024 15:04-0500 Body mass index (BMI) [Ratio] 24.62 kg/m2 Sylvia HEADLEY Work Phone: [facility] 11-30-2024 15:04-0500 Body weight 63.05 kg Sylvia HEADLEY Work Phone: [facility] 11-30-2024 15:04-0500 Diastolic blood pressure 62 mm[Hg] Sylvia HEADLEY Work Phone: [facility] 11-30-2024 15:04-0500 Systolic blood pressure 100 mm[Hg] Sylvia HEADLEY Work Phone: [facility] 11-02-2024 10:59-0500 Body mass index (BMI) [Ratio] 23.91 kg/m2 Dominic Mir DO Work Phone: [facility] 11-02-2024 10:59-0500 Body weight 61.24 kg Dominic Mir DO Work Phone: [facility] 11-02-2024 10:59-0500 Diastolic blood pressure 68 mm[Hg] Dominic Mir DO Work Phone: [facility] 11-02-2024 10:59-0500 Systolic blood pressure 116 mm[Hg] Dominic Mir DO Work Phone: [facility] 10-26-2024 10:04-0500 Body temperature 98.5 [degF] PHYSICIAN NO [facility] 10-26-2024 10:04-0500 Diastolic blood pressure 64 mm[Hg] PHYSICIAN NO [facility] 10-26-2024 10:04-0500 Heart rate 60 /min PHYSICIAN NO [facility] 10-26-2024 10:04-0500 Respiratory rate 18 /min PHYSICIAN NO [facility] 10-26-2024 10:04-0500 SaO2% (BldA) [Mass fraction] 100 % PHYSICIAN NO [facility] 10-26-2024 10:04-0500 Systolic blood pressure 111 mm[Hg] PHYSICIAN NO [facility] 10-26-2024 10:02-0500 Body height 160.02 cm PHYSICIAN NO [facility] 10-26-2024 10:02-0500 Body weight 58.5 kg PHYSICIAN NO [facility] 10-01-2024 11:38-0500 Body mass index (BMI) [Ratio] 22.11 kg/m2 [facility] 10-01-2024 11:38-0500 Body weight 56.61 kg [facility] 10-01-2024 11:38-0500 Diastolic blood pressure 70 mm[Hg] [facility] 10-01-2024 11:38-0500 Systolic blood pressure 120 mm[Hg] [facility] 07-19-2024 13:26-0400 Body mass index (BMI) [Ratio] 22.5 kg/m2 Dominic Mir DO Work Phone: [facility] 07-19-2024 13:26-0400 Body weight 57.61 kg Dominic Mir DO Work Phone: [facility] 07-19-2024 13:26-0400 Diastolic blood pressure 60 mm[Hg] Dominic Mir DO Work Phone: [facility] 07-19-2024 13:26-0400 Systolic blood pressure 110 mm[Hg] Dominic Mir DO Work Phone: [facility] 06-29-2024 14:00-0400 Body mass index (BMI) [Ratio] 20.73 kg/m2 Dominic Mir DO Work Phone: [facility] 06-29-2024 14:00-0400 Body weight 53.07 kg Dominic Mir DO Work Phone: [facility] 06-29-2024 14:00-0400 Diastolic blood pressure 66 mm[Hg] Dominic Mir DO Work Phone: [facility] 06-29-2024 14:00-0400 Systolic blood pressure 108 mm[Hg] Dominic Mir DO Work Phone: [facility] 06-17-2024 14:12-0400 Body height 160.02 cm PHYSICIAN NO [facility] 06-17-2024 14:12-0400 Body temperature 98.5 [degF] PHYSICIAN NO [facility] 06-17-2024 14:12-0400 Body weight 52.4 kg PHYSICIAN NO [facility] 06-17-2024 14:12-0400 Diastolic blood pressure 52 mm[Hg] PHYSICIAN NO [facility] 06-17-2024 14:12-0400 Heart rate 72 /min PHYSICIAN NO [facility] 06-17-2024 14:12-0400 Respiratory rate 20 /min PHYSICIAN NO [facility] 06-17-2024 14:12-0400 SaO2% (BldA) [Mass fraction] 99 % PHYSICIAN NO [facility] 06-17-2024 14:12-0400 Systolic blood pressure 109 mm[Hg] PHYSICIAN NO [facility] 04-07-2023 14:45-0400 Body height 160.02 cm Dutch Vanessa Other [facility] Other 04-07-2023 14:45-0400 Body mass index (BMI) [Ratio] 21.25 kg/m2 Dutch Mendez Other [facility] Other 04-07-2023 14:45-0400 Body temperature 98 [degF] Dutch Mendez Other [facility] Other 04-07-2023 14:45-0400 Body weight 54.43 kg Dutch Mendez Other [facility] Other 04-07-2023 14:45-0400 Diastolic blood pressure 62 mm[Hg] Dutch Mendez Other [facility] Other 04-07-2023 14:45-0400 Respiratory rate 18 /min Dutch Mendez Other [facility] Other 04-07-2023 14:45-0400 SaO2% (BldA) [Mass fraction] 97 % Dutch Mendez Other [facility] Other 04-07-2023 14:45-0400 Systolic blood pressure 99 mm[Hg] Dutch Mendez Other [facility] Other 01-03-2023 18:30-0400 Diastolic blood pressure 53 mm[Hg] ROBBIN Garcia Work Phone: 1(006)507-323123 [place] [address] 01-03-2023 18:30-0400 Heart rate 51 /min [employer] Naomy Luby Work Phone: 4(610)[phone] [place] [address] 01-03-2023 18:30-0400 Respiratory rate 16 /min [employer] Naomy Luby Work Phone: 1(219)130-657535 [address] 01-03-2023 18:30-0400 SaO2% (BldA) [Mass fraction] 100 % [employer] Naomy Luby Work Phone: 9(787)294-802735 [address] 01-03-2023 18:30-0400 Systolic blood pressure 96 mm[Hg] [employer]-C Naomy Luby Work Phone: 4(897)686-721672 [place] [address] 01-03-2023 14:50-0400 Body height 160.02 cm [employer] Naomy Luby Work Phone: 1(242)793-747372 [place] [address] 01-03-2023 14:50-0400 Body temperature 98.1 [degF] [employer] Naomy Luby Work Phone: 3(025)725-369972 [place] [address] 01-03-2023 14:50-0400 Body weight 58.65 kg [employer] Naomy Luby Work Phone: 4(464)470-671872 [place] [address] 08-02-2022 20:04-0400 Diastolic blood pressure 51 mm[Hg] [employer] Naomy Luby Work Phone: 8(372)075-145772 [place] [address] 08-02-2022 20:04-0400 Heart rate 81 /min [employer] Naomy Luby Work Phone: 8(094)890-208035 [address] 08-02-2022 20:04-0400 Respiratory rate 16 /min [employer] Naomy Luby Work Phone: 2(151)209-862735 [address] 08-02-2022 20:04-0400 SaO2% (BldA) [Mass fraction] 100 % [employer] Naomy Luby Work Phone: 1(282)997-823035 [address] 08-02-2022 20:04-0400 Systolic blood pressure 104 mm[Hg] [employer] Naomy Luby Work Phone: 8(098)677-431435 [address] 08-02-2022 17:33-0400 Body height 160.02 cm [employer] S[employer]-C Naomy Garcia Work Phone: [facility] 08-02-2022 17:33-0400 Body temperature 98.8 [degF] [employer]C Naomy Garcia Work Phone: [facility] 08-02-2022 17:33-0400 Body weight 59.4 kg [employer]C Naomy Garcia Work Phone: [facility] Encounters Encounter Date Encounter Type Care Provider Facility Start: 04-13-2025 End: 04-13-2025 Clinisync Result Encounter Sylvia HEADLEY Work Phone: [facility] Unsolicited Start: 04-13-2025 End: 04-13-2025 Clinisync Result Encounter Sylvia HEADLEY Work Phone: [facility] Unsolicited Start: 04-06-2025 End: 04-06-2025 Office outpatient visit 15 minutes Sylvia HEADLEY Work Phone: [facility] Comment on above: size inconsist ent with dates ([facility]); 34 weeks gestation of ([facility]); Third trimester ([facility]); Excessive growth affecting management of in third trimester, single or unspecified fetus ([facility]) Start: 04-06-2025 End: 04-06-2025 ambulatory SYLVIA ROMERO Not Available Start: 04-06-2025 End: 04-06-2025 Clinisync Result Encounter Dominic Mir DO Work Phone: [facility] Unsolicited Start: 04-06-2025 End: 04-06-2025 Clinisync Result Encounter Dominic Mir DO Work Phone: [facility] Unsolicited Start: 03-23-2025 End: 03-23-2025 Office outpatient visit 15 minutes Dominic Mir DO Work Phone: [facility] Comment on above: Third trimester preg freddie ([facility]); 32 weeks gestation of ([facility]); size inconsistent with dates ([facility]) Start: 03-23-2025 End: 03-23-2025 ambulatory DOMINIC MIR Not Available Start: 03-23-2025 End: 03-23-2025 Bamboo flowsheet Dominic Mir DO Work Phone: [facility] Start: 03-23-2025 End: 03-23-2025 Bamboo flowsheet Dominic Mir DO Work Phone: [facility] Start: 03-09-2025 End: 03-09-2025 flow sheet Sylvia HEADLEY Work Phone: [facility] Comment on above: Third trimester preg freddie; 30 weeks gestation of Start: 03-09-2025 End: 03-09-2025 ambulatory SYLVIA ROMERO Not Available Start: 03-09-2025 End: 03-09-2025 Bamboo flowsheet Sylvia HEADLEY Work Phone: [facility] Start: 03-09-2025 End: 03-09-2025 Bamboo flowsheet Sylvia HEADLEY Work Phone: [facility] Start: 02-23-2025 End: 02-23-2025 Office outpatient visit 15 minutes Dominic Mir DO Work Phone: [facility] Comment on above: Third trimester preg freddie; 28 weeks gestation of Start: 02-23-2025 End: 02-23-2025 ambulatory DOMINIC MIR Not Available Start: 02-23-2025 End: 02-23-2025 Bamboo flowsheet Dominic Mir DO Work Phone: [facility] Start: 02-23-2025 End: 02-23-2025 Bamboo flowsheet Dominic Mir DO Work Phone: [facility] Start: 02-17-2025 End: 02-17-2025 ambulatory HECTOR STEVE Not Available Start: 02-17-2025 End: 02-17-2025 Clinisync Result Encounter Hector Steve SHEAR SCRAPMAN Work Phone: [facility] External Department Unsolicited Start: 02-17-2025 End: 02-17-2025 Clinisync Result Encounter Hector Steve SHEAR SCRAPMAN Work Phone: [facility] External Department Unsolicited Start: 02-10-2025 End: 02-10-2025 Emergency department patient visit PHYSICIAN KARLY [facility] Work Phone: Start: 01-31-2025 End: 01-31-2025 ambulatory HECTOR POWER Not Available Start: 01-31-2025 End: 01-31-2025 Office outpatient visit 15 minutes Hector Steve NP Work Phone: [facility] Comment on above: 25 weeks gestation o f ; Second trimester ; Encounter for follow-up ultrasound of anatomy; Diabetes mellitus screening Start: 01-31-2025 End: 01-31-2025 Bamboo flowsheet Hector Steve SHEAR SCRAPMAN Work Phone: [facility] Start: 01-31-2025 End: 01-31-2025 Bamboo flowsheet Hector Steve SHEAR SCRAPMAN Work Phone: [facility] Start: 12-28-2024 End: 12-28-2024 Office outpatient visit 15 minutes Dominic Mir DO Work Phone: [facility] Comment on above: 20 weeks gestation o f ; Second trimester Start: 12-28-2024 End: 12-28-2024 ambulatory DOMINIC MIR Not Available Start: 12-28-2024 End: 12-28-2024 ambulatory DOMINIC MIR Not Available Start: 11-30-2024 End: 11-30-2024 Office outpatient visit 15 minutes Sylvia HEADLEY Work Phone: [facility] Comment on above: 16 weeks gestation o f ; Second trimester ; Well woman exam with routine gynecological exam; STD exposure; Vaginal discharge; Screening, , for anatomic survey Start: 11-30-2024 End: 11-30-2024 Patient encounter procedure Sylvia HEADLEY Work Phone: [facility] Start: 11-30-2024 End: 11-30-2024 ambulatory SYLVIA MILIANEY Not Available Start: 11-30-2024 End: 11-30-2024 Bamboo flowsheet Sylvia Romero PA Work Phone: [facility] Start: 11-30-2024 End: 12-06-2024 Bamboo flowsheet Sylvia Heather PA Work Phone: [facility] Start: 11-30-2024 End: 12-06-2024 Clinisync Result Encounter Sylvia Milford PA Work Phone: [facility] Unsolicited Start: 11-02-2024 End: 11-02-2024 Bamboo flowsheet Dominic [...] 10-26-2024 Emergency department patient visit PHYSICIAN KARLY [facility] Work Phone: Start: 10-19-2024 End: 10-19-2024 [...] 06-29-2024 Office outpatient visit 15 minutes Dominic Parsonszio DO Work Phone: [facility] Comment on above: Pelvic pain in femal e Start: 06-29-2024 End: 06-29-2024 ambulatory DOMINIC MIR Not Available Start: 06-17-2024 End: 06-17-2024 Emergency department patient visit PHYSICIAN KARLY GAN [facility] Work Phone: Start: 04-24-2024 End: 04-24-2024 Patient encounter procedure SHE[employer] SCRAPMAN-C Naomy Skyy Work Phone: [facility] Work Phone: Start: 04-24-2024 End: 04-24-2024 ambulatory SHEAR SCRAPMAN-C Naomy Luby Work Phone: [facility] Work Phone: Start: 02-09-2024 End: 02-09-2024 ambulatory SHEAR SCRAPMAN-C Naomy Luby Work Phone: [facility] Work Phone: Start: 02-09-2024 End: 02-09-2024 Patient encounter procedure SHEAR SCRAPMAN-C Naomy Luby Work Phone: [facility] Work Phone: Start: 04-07-2023 End: 04-07-2023 ambulatory Dutch Mendez Other [facility] Other Start: 04-07-2023 Office outpatient ne w 20 minutes Dutch Mendez [facility] Start: 03-28-2023 End: 03-28-2023 ambulatory SHEAR SCRAPMAN-C Naomy Luby Work Phone: [facility] Work Phone: Start: 03-28-2023 End: 03-28-2023 Patient encounter procedure SHEAR SCRAPMAN-C Naomy Luby Work Phone: [facility] Work Phone: Start: 01-17-2023 End: 01-17-[address] DOMINIC HESTER . Facility:[facility] Start: 01-17-2023 End: 01-18-[address] DOMINIC HESTER . Facility:[facility] Start: 01-03-2023 End: 01-04-[address] DOCTOR PATEL Facility:[facility] Start: 01-03-2023 End: 01-03-2023 Emergency department patient visit SHE[employer] SCRAPMAN-C Naomy Garcia Work Phone: [facility] Work Phone: Start: 12-26-2022 End: 12-27-[address] DOMINIC HESTER . Facility:[facility] Start: 12-25-2022 End: 12-26-[address] DOMINIC HESTER . Facility:[facility] Start: 08-02-2022 End: 08-02-2022 Emergency department patient visit SHEAR SCRAPMAN-Lauren Moralez Radha Work Phone: [facility] Start: 07-31-2022 Encounter for other preprocedural examination DR DOMINIC HESTER . [facility] Start: 07-29-2022 End: 07-30-2022 Encounter for other preprocedural examination DR DOMINIC HESTER . Facility:[facility] Start: 07-29-2022 End: 07-30-[address] DOMINIC HESTER . Facility:[facility] Start: 07-16-2022 End: 07-17-[address] DOMINIC HESTER . Facility:[facility] Start: 06-18-2022 End: 06-18-2022 Patient encounter procedure SHEAR SCRAPMAN-C Naomy Radha Work Phone: [facility] Start: 06-01-[address] DOMINIC HESTER . Facili ty:[facility] Start: 05-30-2022 End: 05-30-[address] DOMINIC HESTER . Facility:[facility] Start: 05-28-2022 End: 05-28-2022 ambulatory ROGELIO HERNANDEZ . Facility:[facility] Procedures Date Procedure Procedure Detail Performing Clinician Start: 04-13-2025 OB BPP W NON-STRESS Sylvia HEADLEY Work Phone: Start: 04-06-2025 Urnls dip stick/tabl et rgnt non-auto w/o micrscp Sylvia HEADLEY Work Phone: Start: 04-06-2025 US OB GROWTH Dominic Fazi o DO Work Phone: Start: 03-23-2025 Urnls dip stick/tabl et rgnt non-auto w/o micrscp Dominic Mir DO Work Phone: Start: 03-09-2025 Urnls dip stick/tabl et rgnt non-auto w/o micrscp Sylvia HEADLEY Work Phone: Start: 02-23-2025 Urnls dip stick/tabl et rgnt non-auto w/o micrscp Dominic Mir DO Work Phone: Start: 02-17-2025 ALL CBC WITH AUTO DIFF Hector Steve [employer] SCR[employer]MAN Work Phone: Start: 01-31-2025 Urnls dip stick/tabl et rgnt non-auto w/o micrscp Hector Steve [employer] S[employer]APMAN Work Phone: Start: 12-28-2024 Urnls dip stick/tabl et rgnt non-auto w/o micrscp Dominic Mir DO Work Phone: Start: 11-30-2024 Urnls dip stick/tabl et rgnt non-auto w/o micrscp Sylvia HEADLEY Work Phone: Start: 11-30-2024 IGP,APTIMA HPV,AGE GDLN Sylvia HEADLEY Work Phone: Start: 11-30-2024 Microscopic observat ion [Identifier] in Cervix by Cyto stain Dominic Mir DO Work Phone: Start: 11-02-2024 Urnls dip stick/tabl et rgnt [...] DO Work Phone: Start: 02-09-2024 Pelvic echography SHE[facility] SCRAPMAN-Lauren Garcia Work Phone: Start: 02-09-2024 Transvaginal echography SHE[employer] SCRAPMAN-Lauren Garcia Work Phone: Start: 05-30-2023 Microscopic observat ion [Identifier] in Cervix by Cyto stain Dominic Mir DO Work Phone: Start: 01-03-2023 Diagnostic ultrasoun d of gravid uterus [employer] SCR[employer]MAN-Lauren Garcia Work Phone: Start: 01-03-2023 Ultrasonography of r ight kidney [facility]-Lauren Garcia Work Phone: Start: 01-03-2023 Transvaginal obstetr ic ultrasonography [facility] SCR[employer]-Lauren Garcia Work Phone: Plan of Treatment Date Care Activity Detail Author Start: 05-30-2028 Screening for malign ant neoplasm of cervix [facility] Start: 11-30-2025 Screening for malign ant neoplasm of cervix [facility] Start: 06-06-2025 Influenza vaccination [facility] Start: 04-19-2025 End: 04-19-2025 Patient encounter procedure 04/19/2025 2:20 PM EDT Routine [facility] [address] [place] [phone] Dominic Hester DO [address] [place], [place] [id number] [facility] Start: 04-06-2025 End: 04-06-2025 Patient encounter procedure 04/06/2025 2:50 PM EDT Routine [facility] [address] [place] [address] Sylvia Romero PA [address] [place], [place] [id number] [facility] Start: 03-23-2025 End: 03-23-2025 Patient encounter procedure [facility] Comment on above: Arrived Start: 03-23-2025 End: 07-23-2025 US for US OB follow up transabdominal approach Imaging Routine size inconsistent with dates ([facility]) Expected: 03/23/2025, Expires: 07/23/2025 [facility] Work Phone: Comment on above: Expected: 03/23/2025 , Expires: 07/23/2025 Start: 03-09-2025 End: 03-09-2025 Patient encounter procedure [facility] Comment on above: Arrived Start: 02-23-2025 End: 02-23-2025 Patient encounter procedure [facility] Comment on above: Arrived Start: 02-10-2025 [facility] Start: 02-03-2025 End: 02-03-2025 Professional / ancillary services management 02/03/2025 2:30 PM EDT Ancillary Procedure [facility] [address] [place] [address] [facility] Start: 01-31-2025 End: 01-31-2026 CBC panel - Blood by Automated count CBC Lab Routine Diabetes mellitus screening Expected: 01/31/2025 (Approximate), Expires: 01/31/2026 [facility] Comment on above: Expected: 01/31/2025 (Approximate), Expires: 01/31/2026 Start: 01-31-2025 End: 01-31-2026 Measurement of glucose 1 hour after glucose challenge for glucose tolerance test Glucose tolerance, 1 hour Lab Routine Diabetes mellitus screening Expected: 01/31/2025 (Approximate), Expires: 01/31/2026 [facility] Comment on above: Expected: 01/31/2025 (Approximate), Expires: 01/31/2026 Start: 01-31-2025 End: 05-02-2025 US for US OB limited 1+ fetuses Imaging Routine Encounter for follow-up ultrasound of anatomy Expected: 01/31/2025, Expires: 05/02/2025 [facility] Work Phone: Comment on above: Expected: 01/31/2025 , Expires: 05/02/2025 Start: 01-25-2025 End: 01-25-2025 Patient encounter procedure 01/25/2025 2:40 PM EDT Routine [facility] [address] [facility] [place] [address] Sylvia Romero PA [address] [place] [address] [facility] Start: 12-28-2024 End: 12-28-2024 Patient encounter procedure 12/28/2024 2:40 PM EDT Routine [facility] [address] [place] [address] Dominic Hester DO [address] [place] [address] [facility] Start: 12-28-2024 End: 12-28-2024 Professional / ancillary services management 12/28/2024 1:30 PM EDT Ancillary Procedure [facility] [address] [place] [address] [facility] Start: 12-20-2024 End: 12-20-2024 Patient encounter procedure 12/20/2024 2:10 PM EDT Office Visit [facility] [address] [place] [id number] Dominic Hester, DO [address] [place] [address] [facility] Start: 11-30-2024 End: 11-30-2024 Patient encounter procedure 11/30/2024 2:30 PM EST Routine [facility] [address] [facility] [place] [phone] Sylvia Romero PA [address] [place], [place] [id number] Arrived [facility] Comment on above: Arrived Start: 11-30-2024 End: 01-28-2025 Alpha fetoprotein, maternal Alpha fetoprotein, maternal Lab Routine Second trimester Expected: 11/30/2024 (Approximate), Expires: 01/28/2025 [facility] Comment on above: Expected: 11/30/2024 (Approximate), Expires: 01/28/2025 Start: 11-30-2024 End: 11-30-2025 US for US OB 14+ weeks anatomy scan Imaging Routine Screening, , for anatomic survey Expected: 11/30/2024, Expires: 11/30/2025 [facility] Comment on above: Expected: 11/30/2024 , Expires: 11/30/2025 Start: 11-02-2024 End: 11-02-2024 Patient encounter procedure 11/02/2024 10:40 AM EST Routine [facility] [address] [facility] [place] [phone] Dominic Hester, DO [address] [place] [address] [facility] Start: 10-01-2024 End: 10-01-2025 ABO/Rh ABO/Rh Lab Routine Missed menses , unspecified gestational age Expected: 10/01/2024 (Approximate), Expires: 10/01/2025 [facility] Comment on above: Expected: 10/01/2024 (Approximate), Expires: 10/01/2025 Start: 10-01-2024 End: 10-01-2025 Blood type and Indirect antibody screen panel - Blood Type and screen Lab Routine Missed menses , unspecified gestational age Expected: 10/01/2024 (Approximate), Expires: 10/01/2025 [facility] Work Phone: Comment on above: Expected: 10/01/2024 (Approximate), Expires: 10/01/2025 Start: 10-01-2024 End: 10-01-2025 Drugs of abuse panel - Urine by Screen method Rapid drug screen, urine Lab Routine , unspecified gestational age Encounter for supervision of normal first in first trimester Expected: 10/01/2024 (Approximate), Expires: 10/01/2025 [facility] Comment on above: Expected: 10/01/2024 (Approximate), Expires: 10/01/2025 Start: 07-19-2024 End: 07-19-2024 Patient encounter procedure 07/19/2024 1:00 PM EDT Office Visit [facility] [address] [place] [phone] Dominic Hester DO [address] [place] [address] [facility] Start: 06-29-2024 End: 06-29-2025 SURESWAB(R) ADVANCED VAGINITIS PLUS, TMA SURESWAB(R) ADVANCED VAGINITIS PLUS, TMA Pathology and Cytology Routine Pelvic pain in female Expected: 06/29/2024 (Approximate), Expires: 06/29/2025 [facility] Work Phone: Comment on above: Expected: 06/29/2024 (Approximate), Expires: 06/29/2025 Start: 06-29-2024 End: 06-29-2025 US for US PELVIS-TRANSVAG IF INDICATED Imaging Routine Pelvic pain in female Expected: 06/29/2024 (Approximate), Expires: 06/29/2025 [facility] Comment on above: Expected: 06/29/2024 (Approximate), Expires: 06/29/2025 Start: 06-29-2024 End: 06-29-2024 Patient encounter procedure 06/29/2024 1:40 PM EDT Office Visit [facility] [address] [place] [address] Dominic Hester DO [address] [place] [address] Arrived [facility] Comment on above: Arrived Start: 06-06-2024 Influenza vaccination Influenza Vacc ine (#1) [facility] Start: 03-28-2023 [facility] Start: 01-03-2023 [facility] Start: 06-18-2022 [facility] Work Phone: Bacteria identified in Blood by Culture Blood Culture [facility] Bacteria identified in Urine by Culture Urine culture Microbiology Routine Missed menses Ordered: 10/01/2024 [facility] Comment on above: Ordered: 10/01/2024 CBC W Auto Different ial panel - Blood CBC and differential Lab Routine Missed menses , unspecified gestational age Ordered: 10/01/2024 [facility] Comment on above: Ordered: 10/01/2024 CHLAMYDIA TRACHOMATI S (GENITO/STI) CHLAMYDIA TRACHOMATIS (GENITO/STI) Lab Routine Pelvic pain in female Ordered: 06/29/2024 [facility] Comment on above: Ordered: 06/29/2024 CHLAMYDIA TRACHOMATI S (GENITO/STI) CHLAMYDIA TRACHOMATIS (GENITO/STI) Lab Routine STD exposure Vaginal discharge Ordered: 11/30/2024 [facility] Comment on above: Ordered: 11/30/2024 Cytology Cervical or vaginal smear or scraping study Pap Smear Pathology and Cytology Routine Well woman exam with routine gynecological exam Ordered: 11/30/2024 [facility] Work Phone: Comment on above: Ordered: 11/30/2024 Glucose measurement estimated from glycated hemoglobin [facility] Hemoglobin A1c/Hemoglobin.total in Blood Hemoglobin A1c Lab Routine Missed menses , unspecified gestational age Ordered: 10/01/2024 [facility] Comment on above: Ordered: 10/01/2024 Hepatitis A virus antibody, IgM type [facility] Work Phone: Hepatitis B core antibody measurement, IgM type [facility] Work Phone: Hepatitis B virus surface Ag [Presence] in Serum or Plasma by Immunoassay [facility] Work Phone: Hepatitis B virus surface Ag [Presence] in Serum or Plasma by Immunoassay Hepatitis B surface antigen Lab Routine Missed menses , unspecified gestational age Ordered: 10/01/2024 [facility] Comment on above: Ordered: 10/01/2024 Hepatitis C virus Ab [Presence] in Serum or Plasma by Immunoassay Hepatitis C antibody Lab Routine Missed menses , unspecified gestational age Ordered: 10/01/2024 [facility] Comment on above: Ordered: 10/01/2024 Hepatitis C virus Ab Signal/Cutoff in Serum or Plasma by Immunoassay [facility] Work Phone: Hepatitis C virus RN A [log units/volume] (viral load) in Serum or Plasma by JOSE with probe detection [facility] Work Phone: Hepatitis C virus RN A [Units/volume] (viral load) in Serum or Plasma by JOSE with probe detection [facility] Work Phone: HIV 1+2 Ab+HIV1 p24 Ag [Presence] in Serum or Plasma by Immunoassay [facility] Work Phone: HIV-1/HIV-2 antigen/antibody combination immunoassay HIV-1 and HIV-2 antibodies Lab Routine Missed menses , unspecified gestational age Ordered: 10/01/2024 [facility] Comment on above: Ordered: 10/01/2024 Human papilloma viru s DNA [Presence] in Unspecified specimen by Probe with amplification HPV DNA probe, amplified Microbiology Routine Well woman exam with routine gynecological exam Ordered: 11/30/2024 [facility] Comment on above: Ordered: 11/30/2024 Neisseria gonorrhoea e DNA [Presence] in Unspecified specimen by JOSE with probe detection Neisseria gonorrhea DNA probe, direct Lab Routine Pelvic pain in female Ordered: 06/29/2024 [facility] Comment on above: Ordered: 06/29/2024 Neisseria gonorrhoea e DNA [Presence] in Unspecified specimen by JOSE with probe detection Neisseria gonorrhea DNA probe, direct Lab Routine STD exposure Vaginal discharge Ordered: 11/30/2024 [facility] Comment on above: Ordered: 11/30/[address] [facility] Work Phone: Patient referral [facility] Work Phone: Reagin Ab [Presence] in Serum by RPR [facility] Work Phone: Reagin Ab [Presence] in Serum by RPR RPR Lab Routine Missed menses , unspecified gestational age Ordered: 10/01/2024 [facility] Comment on above: Ordered: 10/01/2024 Rubella antibody, IgG Rubella an tibody, IgG Lab Routine Missed menses , unspecified gestational age Ordered: 10/01/2024 [facility] Comment on above: Ordered: 10/01/2024 SURESWAB(R) ADVANCED VAGINITIS PLUS, TMA SURESWAB(R) ADVANCED VAGINITIS PLUS, TMA Pathology and Cytology Routine STD exposure Vaginal discharge Ordered: 11/30/2024 [facility] Comment on above: Ordered: 11/30/2024 US for US OB follow up transabdominal approach Imaging Routine size inconsistent with dates ([facility]) 04/06/2025 2:45 PM EDT [facility] Work Phone: Payers Date Payer Category Payer Medicaid [employer] [id number] 2022-Present [address] [place] [address] [id number] 2022 Private Health Insurance [employer]ICA[employer] Member Subscriber Plan / Payer (Effective 2022-Present) Name: Breana Casas Relation to Subscriber: Self Name: Breana Casas Payer ID: Not on file Group ID: Not on file Type: Not on file Address: [place] [id number] 1990 Unknown [id number] 2.16.840.1.691705.3.579.2. 593 1990 Unknown [id number] 2.16.840.1.480717.3.579.2. 593 1990 Unknown [id number] 2.16.840.1.339948.3.579.2. 593 1990 Unknown [id number] 2.16.840.1.183180.3.579.2. 593 1990 Unknown [id number] 2.16.840.1.470853.3.579.2. 593 1990 Unknown [id number] 2.16.840.1.678090.3.579.2. 593 1990 Unknown [id number] 2.16.840.1.972295.3.579.2. 593 1991 Unknown [id number] 2.16.840.1.390190.3.579.2. 593 1991 Unknown [id number] 2.16.840.1.959022.3.579.2. 593 1991 Unknown [id number] 2.16.840.1.581454.3.579.2. 593 1991 Unknown [id number] 2.16.840.1.907211.3.579.2. 593 1991 Unknown [id number] 2.16.840.1.457065.3.579.2. 593 1991 Unknown [id number] 2.16.840.1.114243.3.579.2. 1259 1991 Unknown [id number] 2.16.840.1.928437.3.579.2. 1259 1991 Unknown [id number] 2.16.840.1.551684.3.579.2. 9 1990 Unknown [id number] 2.16.840.1.259879.3.579.2. 9 1991 Unknown [id number] 2.16.840.1.246350.3.579.2. 1258 1991 Unknown [id number] 2.16.840.1.973576.3.579.2. 9 1991 Unknown [id number] 2.16.840.1.740727.3.579.2. 1258 1991 Unknown [id number] 2.16.840.1.590319.3.579.2. 9 1991 Unknown [id number] 2.16.840.1.185146.3.579.2. 1258 1991 Unknown [id number] 2.16.840.1.681575.3.579.2. 9 1990 Unknown [id number] 2.16.840.1.146503.3.579.2. 9 1990 Unknown [id number] 2.16.840.1.660958.3.579.2. 9 1991 Unknown [id number] 2.16.840.1.836270.3.579.2. 9 1958 Private Health Insurance [id number] 1958 Self-pay [id number] 1958 Unknown [id number] Self-pay Self Pay [id number] Social History Date Type Detail Facility Start: 01-05-2022 End: 06-17-2024 Tobacco smoking status MAIS Smoker (finding) [facility] Start: 1990 Sex Assigned At Female F [facility] Start: 01-03-2023 Tobacco smoking stat us MAIS Never smoked tobacco (finding) [facility] Start: 03-09-2024 End: 03-24-2025 Sex Assigned At [facility] Start: 10-06-2010 Tobacco smoking stat us MAIS Smokes tobacco daily [facility] Start: 10-06-2010 End: 05-21-2021 History of tobacco use Cigarette Smoker [facility] Start: 03-09-2024 Tobacco use and exposure Smokeless tobacco non-user [facility] Start: 06-29-2024 End: 04-06-2025 Alcoholic beverage intake Ex-drinker (finding) [facility] Start: 03-09-2024 End: 03-24-2025 History of Social function [facility] Start: 04-13-2023 Education 13 [facility] Start: 04-13-2023 Alcohol Comment Alcohol: 1 or 2 drinks on typical day/monthly or less. Caffeine: 1 bottle pop daily; 2-3 cups/day coffee [facility] Start: 1990 Sex assigned at Not on file N [facility] Start: 08-19-2024 [facility] Start: 10-26-2024 End: 02-10-2025 Tobacco smoking status NHIS Ex-smoker (finding) [facility] Start: 10-26-2024 End: 02-10-2025 Sex Female (finding) [facility] Functional Status Date Assessment Result Facility 03-01-2025 Patient Health Quest ionnaire 2 item (PHQ-2) [Reported] [facility] 03-01-2025 PHQ-9 quick depressi on assessment panel [Reported.PHQ] [facility] Clinical Notes 05-14-2020 to 04-06-2025 FANG Jackson - 04/06/2025 2:50 PM Reuben Roth LPN - 03/23/2025 2:30 PM FANG Arevalo - 03/09/2025 2:30 PM Reuben Roth LPN - 02/23/2025 2:50 PM Reuben Roth LPN - 12/28/2024 2:40 PM EDT Note Date & Type Note Facility 04-06-2025 History of Present illness Narrative Reason for Appointment: Patient ID: Breana Casas is a 34 y.o. female who presents [...] Anovulation 07/19/2024 confirmed by positive blood test ([facility]) 09/09/2024 20 weeks gestation of ([facility]) 12/28/2024 Second trimester ([facility]) 12/28/2024 Resolved Ambulatory Problems Diagnosis Date Noted No Resolved Ambulatory Problems Past Medical History: Diagnosis Date Anxiety Asthma ([facility]) Dyspareunia in female Endometriosis Folliculitis Hematuria Miscarriage ([facility]) PID (acute pelvic inflammatory disease) Trichomoniasis 2012 HISTORY PAST MEDICAL HISTORY SOCIAL HISTORY Past Medical History: Diagnosis Date Anxiety Asthma ([facility]) Dysmenorrhea Dyspareunia in female Endometriosis Folliculitis Hematuria Miscarriage ([facility]) PID (acute pelvic inflammatory disease) Trichomoniasis 2012 [...] Vitals: Estimated body mass index is 28.7 kg/m as calculated from the following: Height as of 03/09/24: 5' 3 . Weight as of 03/23/25: 162 lb. BP: Patient's last menstrual period was 08/05/2024. ASSESSMENT & PLAN ICD-10-CM 1. size inconsistent with dates ([facility]) O26.849 US OB follow up transabdominal approach 2. 34 weeks gestation of ([facility]) Z3A.34 3. Third trimester ([facility]) Z34.93 POCT urinalysis dipstick manually resulted Return [...] of: FANG Jackson documented in this encounter [facility] 03-23-2025 History of Present illness Narrative Reason for Appointment: Patient ID: Breana Casas is a 34 y.o. female who presents [...] Anovulation 07/19/2024 confirmed by positive blood test ([facility]) 09/09/2024 20 weeks gestation of ([facility]) 12/28/2024 Second trimester ([facility]) 12/28/2024 Resolved Ambulatory Problems Diagnosis Date Noted No Resolved Ambulatory Problems Past Medical History: Diagnosis Date Anxiety Asthma ([facility]) Dyspareunia in female Endometriosis Folliculitis Hematuria Miscarriage ([facility]) PID (acute pelvic inflammatory disease) Trichomoniasis 2012 HISTORY PAST MEDICAL HISTORY SOCIAL HISTORY Past Medical History: Diagnosis Date Anxiety Asthma ([facility]) Dysmenorrhea Dyspareunia in female Endometriosis Folliculitis Hematuria Miscarriage ([facility]) PID (acute pelvic inflammatory disease) Trichomoniasis [...] nursing note reviewed. Exam conducted with a post tensioning ironworker helper present. Vitals: Estimated body mass index is 28.7 kg/m as calculated from the following: Height as of 24: 5' 3 . Weight as of this encounter: 162 lb. BP: 112/68 Patient's last menstrual period was 08/05/2024. ASSESSMENT & PLAN ICD-10-CM 1. Third trimester ([facility]) Z34.93 POCT urinalysis dipstick manually resulted 2. 32 weeks gestation of ([facility]) Z3A.32 Return OB: Patient presents today for [...] Dominic Hester DO documented in this encounter [facility] 03-09-2025 History of Present illness Narrative Reason for Appointment: Patient ID: Breana Casas is a 34 y.o. female who presents [...] 07/19/2024 confirmed by positive blood test 09/09/2024 20 weeks gestation of 12/28/2024 Second trimester 12/28/2024 Resolved Ambulatory Problems Diagnosis Date Noted No Resolved Ambulatory Problems Past Medical History: Diagnosis Date Anxiety Asthma Dyspareunia in female Endometriosis Folliculitis Hematuria Miscarriage PID (acute pelvic inflammatory disease) Trichomoniasis 2013 HISTORY PAST MEDICAL HISTORY SOCIAL HISTORY Past Medical History: Diagnosis Date Anxiety Asthma Dysmenorrhea Dyspareunia in female Endometriosis Folliculitis Hematuria [...] and oriented to person, place, and time. Psychiatric: Mood and Affect: Mood normal. Behavior: Behavior normal. Thought Content: Thought content normal. Judgment: Judgment normal. Vitals and nursing note reviewed. Vitals: Estimated body mass index is 28.21 kg/m as calculated from the following: Height as of 24: 5' 3 . Weight as of this encounter: 159 lb 4 oz. BP: 98/60 Patient's last menstrual period was 08/05/2024. ASSESSMENT & PLAN ICD-10-CM 1. Third trimester Z34.93 POCT urinalysis dipstick manually resulted 2. 30 weeks gestation of Z3A.30 Return OB: Patient presents today for a routine obstetrics appointment. Patient is currently 30w6d . Patient states she is doing well [...] week for routine OB appointment. Documented by FANG Jackson on behalf of: FANG Jackson documented in this encounter [facility] 02-23-2025 History of Present illness Narrative Reason for Appointment: Patient ID: Breana Casas is a 34 y.o. female who presents [...] 07/19/2024 confirmed by positive blood test 09/09/2024 20 weeks gestation of 12/28/2024 Second trimester 12/28/2024 Resolved Ambulatory Problems Diagnosis Date Noted No Resolved Ambulatory Problems Past Medical History: Diagnosis Date Anxiety Asthma Dyspareunia in female Endometriosis Folliculitis Hematuria Miscarriage PID (acute pelvic inflammatory disease) Trichomoniasis 2012 HISTORY PAST MEDICAL HISTORY SOCIAL HISTORY Past Medical History: Diagnosis Date Anxiety Asthma Dysmenorrhea Dyspareunia in female Endometriosis Folliculitis Hematuria Miscarriage PID (acute pelvic inflammatory disease) Trichomoniasis 2012 Social History Tobacco Use Smoking status: Every Day Current packs/day: 0.00 Types: Cigarettes Start date: 10/06/2010 Last attempt to quit: 05/21/2021 Years since quittin.7 Smokeless tobacco: Never Vaping Use Vaping status: [...] nursing note reviewed. Exam conducted with a post tensioning ironworker helper present. Vitals: Estimated body mass index is 28.03 kg/m as calculated from the following: Height as of 24: 5' 3 . Weight as of this encounter: 158 lb 4 oz. BP: 100/60 Patient's last menstrual period was 08/05/2024. ASSESSMENT & PLAN ICD-10-CM 1. Third trimester Z34.93 2. 28 weeks gestation of Z3A.28 Return OB: Patient presents today for a routine obstetrics appointment. Patient is currently 28w6d . Patient states she is doing well but has complaints of being tired due to current . Patient has verbalizes frequent movement. labor precautions was discussed/given and patient was instructed to perform kick counts three times a day. No orders of the defined types were placed in this encounter. Follow Up: Patient is to return to office in 2 week for routine OB appointment. Documented by Christine Roth LPN on behalf of: Dominic Hester DO documented in this encounter [facility] 01-31-2025 History of Present illness Narrative Reason for Appointment: Patient ID: Breana Casas is a 34 y.o. female who presents [...] 07/19/2024 confirmed by positive blood test 09/09/2024 20 weeks gestation of 12/28/2024 Second trimester 12/28/2024 Resolved Ambulatory Problems Diagnosis Date Noted No Resolved Ambulatory Problems Past Medical History: Diagnosis Date Anxiety Asthma Dyspareunia in female Endometriosis Folliculitis Hematuria Miscarriage PID (acute pelvic inflammatory disease) Trichomoniasis 2012 HISTORY PAST MEDICAL HISTORY SOCIAL HISTORY Past Medical History: Diagnosis Date Anxiety Asthma Dysmenorrhea Dyspareunia in female Endometriosis Folliculitis Hematuria Miscarriage PID (acute pelvic inflammatory disease) Trichomoniasis 2012 Social History Tobacco Use Smoking status: Every Day Current packs/day: 0.00 Types: Cigarettes Start date: 10/06/2010 Last attempt to quit: 05/21/2021 Years since quittin.7 Smokeless tobacco: Never Vaping Use Vaping status: [...] Negative. Musculoskeletal: Negative. Skin: Negative. Neurological: Negative. Psychiatric/Behavioral: Negative. All other systems reviewed and are [...] nursing note reviewed. Exam conducted with a post tensioning ironworker helper present. Vitals: Estimated body mass index is 28.48 kg/m as calculated from the following: Height as of 03/09/24: 5' 3 . Weight as of this encounter: 160 lb 12.8 oz. BP: 100/58 Patient's last menstrual period was 08/05/2024. ASSESSMENT & PLAN ICD-10-CM 1. 25 weeks gestation of Z3A.25 POCT urinalysis dipstick manually resulted 2. Second trimester Z34.92 POCT urinalysis dipstick manually resulted 3. Encounter for follow-up ultrasound of anatomy Z36.2 US OB limited 1+ fetuses 4. Diabetes mellitus screening Z13.1 CBC Glucose tolerance, 1 hour CBC Glucose tolerance, 1 hour Return OB: Patient presents today for a routine obstetrics appointment. Patient is currently 25w4d . Patient states she is doing well but has complaints of being tired due to current . Patient has verbalizes frequent movement. labor precautions was discussed/given and patient was instructed to perform kick counts three times a day. Orders Placed This Encounter Procedures US OB limited 1+ fetuses CBC Glucose tolerance, 1 hour POCT urinalysis dipstick manually resulted Follow Up: Patient is to return to office in 4 week for routine OB appointment. Documented by Hector Steve NP on behalf of: Hector Steve NP documented in this encounter [facility] 12-28-2024 History of Present illness Narrative Reason for Appointment: Patient ID: Breana Casas is a 34 y.o. female who presents for No chief complaint on file. Patient presents today for Return OB appointment. MEDICATIONS Current Outpatient Medications Medication Instructions ondansetron ODT (ZOFRAN-ODT) 4 mg, Oral, Every 6 hours PRN ondansetron ODT (ZOFRAN-ODT) 4 mg, Oral, Every [...] 07/19/2024 confirmed by positive blood test 09/09/2024 20 weeks gestation of 12/28/2024 Second trimester 12/28/2024 Resolved Ambulatory Problems Diagnosis Date Noted [...] Last attempt to quit: 05/21/2021 Years since quittin.6 Smokeless tobacco: Never Vaping Use Vaping status: [...] nursing note reviewed. Exam conducted with a post tensioning ironworker helper present. Vitals: Estimated body mass index is 25.69 kg/m as calculated from the following: Height as of 03/09/24: 5' 3 . Weight as of this encounter: 145 lb. BP: 96/56 Patient's last menstrual period was 08/05/2024. ASSESSMENT & PLAN ICD-10-CM 1. 20 weeks gestation of Z3A.20 POCT urinalysis dipstick manually resulted 2. Second trimester Z34.92 Patient presents today for a routine obstetrics appointment. Patient is currently 20w5d with a Estimated Date of Delivery: 05/12/25. Pt had anatomy scan prior to appt- will have repeat in 4 weeks for suboptimally seen structures. Pt to return in 4 weeks for scheduled OB appt. Documented by Christine Roth LPN on behalf of: Dominci Hester DO documented in this encounter [facility] 11-30-2024 History of Present illness Narrative Reason for Appointment: Patient ID: Breana Casas is a 34 y.o. female who presents for Routine Visit Patient presents today for Return OB appointment.and annual MEDICATIONS Current Outpatient Medications Medication Instructions ondansetron [...] Last attempt to quit: 05/21/2021 Years since quittin.5 Smokeless tobacco: Never Vaping Use Vaping status: [...] appearance. She is well-developed. Genitourinary: Vulva normal. Right Adnexa: not tender and no mass present. Left Adnexa: not tender and no mass present. No cervical discharge. Breasts: Breasts are soft. Right: Normal. Left: Normal. HENT: Head: Normocephalic. Nose: Nose normal. Mouth/Throat: Mouth: Mucous membranes are moist. Cardiovascular: Rate and Rhythm: Normal rate and regular rhythm. Pulmonary: Effort: Pulmonary effort is normal. Breath sounds: Normal breath sounds. Abdominal: General: Bowel sounds are normal. There is no distension. Palpations: Abdomen is soft. Tenderness: There is no abdominal tenderness. There is no guarding or rebound. Musculoskeletal: General: No swelling. Normal range of motion. Cervical back: Normal range of motion. Right lower leg: No edema. Left lower leg: No edema. Neurological: General: No focal deficit present. Mental Status: She is alert and oriented to person, place, and time. Skin: General: Skin is warm and dry. Psychiatric: Mood and Affect: Mood normal. Behavior: Behavior normal. Vitals and nursing note reviewed. Exam conducted with a post tensioning ironworker helper present. Vitals: Estimated body mass index is 24.62 kg/m as calculated from the following: Height as of 03/09/24: 5' 3 . Weight as of this encounter: 139 lb. BP: 100/62 Patient's last menstrual period was 08/05/2024. ASSESSMENT & PLAN ICD-10-CM 1. 16 weeks gestation of Z3A.16 POCT urinalysis dipstick manually resulted 2. Second trimester Z34.92 Alpha fetoprotein, maternal Alpha fetoprotein, maternal 3. Well woman exam with routine gynecological exam Z01.419 Pap Smear HPV DNA probe, amplified 4. STD exposure Z20.2 SURESWAB(R) ADVANCED VAGINITIS PLUS, TMA CHLAMYDIA TRACHOMATIS (GENITO/STI) Neisseria gonorrhea DNA probe, direct 5. Vaginal discharge N89.8 SURESWAB(R) ADVANCED VAGINITIS PLUS, TMA CHLAMYDIA TRACHOMATIS (GENITO/STI) Neisseria gonorrhea DNA probe, direct 6. Screening, , for anatomic survey Z36.89 US OB 14+ weeks anatomy scan Return OB/Annual Exam: Patient presents today for an annual exam/routine obstetrics appointment. Patient is currently 16w5d . Patient is doing well and states she has no complaints. Pap/cultures was obtained without difficulty and patient was given [facility] order to have obtained. Orders Placed This Encounter Procedures HPV DNA probe, amplified US OB 14+ weeks anatomy scan CHLAMYDIA TRACHOMATIS (GENITO/STI) Neisseria gonorrhea DNA probe, direct Alpha fetoprotein, maternal POCT urinalysis dipstick manually resulted Follow Up: Patient is to return to our office in 4 weeks for routine OB appointment Documented by Zainab Mcwilliams LPN on behalf of: FANG Jackson documented in this encounter [facility] 11-02-2024 History of Present illness Narrative Reason for Appointment: Patient ID: Breana Casas is a 33 y.o. female who presents [...] Dominic Hester DO documented in this encounter [facility] 10-26-2024 Radiology Diagnostic study note [facility] [place] [address] [place] [address] Ultrasound Report Signed Patient: Breana Casas MR#: [id number] : 1990 Acct:[id number] Age/Sex: 33 / F ADM Date: 5 Loc: ER Room: Type: [facility] ER Attending Dr: Ordering Provider: Ale Fragoso APRN Date of Service: 10/26/24 US/US renal RT: right flank pain Copies to: Ale Tony Fragoso APRN~ Right Renal Ultrasound HISTORY: Right [...] Tanner Burleson M.D.10/26/2024 11:46 AM Dictation Location: [place] [address] Tech: Karmen Lobo Transcribed By: SHANE 10/26/24 1146 Dictated By: Tanner Burleson DO 10/26/24 1139 Signed By: 10/26/24 1146 [facility] 10-26-2024 Hospital Discharge instructions Additional Instructions Rest. Push fluids. Take [id number] Tylenol as needed for any pain or discomfort. Follow-up with Dr. Hester with [facility] in the next 2 to 3 days. Follow-up with primary care provider in the next 2 to 5 days. Return here if symptoms persist or worsen. [facility] Work Phone: 10-01-2024 History of Present illness Narrative Reason for Appointment: Patient ID: Breana Casas is a 33 y.o. female who presents [...] or undercooked meat, and stay away from [facility]. Patient has also been advised to [...] Archana Parham LPN documented in this encounter [facility] 07-19-2024 History of Present illness Narrative Reason for Appointment: Patient ID: Breana Casas is a 33 y.o. female who presents [...] Miscarriage PID (acute pelvic inflammatory disease) Trichomoniasis 2013 [...] nursing note reviewed. Exam conducted with a post tensioning ironworker helper present. Vitals: Estimated body mass index is [...] Dominic Hester DO documented in this encounter [facility] 06-29-2024 History of Present illness Narrative Reason for Appointment: Patient ID: Breana Casas is a 33 y.o. female who presents [...] nursing note reviewed. Exam conducted with a post tensioning ironworker helper present. Vitals: Estimated body mass index is [...] Dominic Hester DO documented in this encounter [facility] 04-07-2023 Evaluation note Encounter Date Diagnosis Assessment [...] right ear, unspecified type (ICD-10 - H60.501) [facility] Other 04-14-2023 NoteOPERATIVE NOTE OPERATION DATE: 01/17/2023 [...] products of conception were removed using an 8-Lebanese suction curette. Excellent hemostasis was noted. The patient tolerated the procedure well. Sponge, lap, and needle counts were correct x 2. All instruments were then removed from the patient's vagina. The patient was taken to the Recovery Room in stable condition. ??[facility] [id number] NoteOPERATIVE NOTE OPERATION DATE: 07/29/2022 PROCEDURE: Diagnostic laparoscopy. PREOPERATIVE DIAGNOSIS: Pelvic pain, dyspareunia, dysmenorrhea. POSTOPERATIVE DIAGNOSIS: Pelvic pain, dyspareunia, dysmenorrhea including significant endometriosis of the posterior cul-de-sac, as well as significant adhesions of the uterus to the anterior abdominal wall all the way to the fundal region. ANESTHESIA: General. SURGEON: Dominic Hester D.O. [employer] MACH[employer] ATTENDANT: ADAN Flores URINE OUTPUT: Yellow and clear. [...] taken to Recovery Room in stable condition.[facility] [id number] Note Microbiology PROCEDURE: Cervical Culture [R1] SOURCE: [...] Locations R1: This test was performed at: [facility], [address] [place] [address], [address] , , XeodvxUniversity [facility] CenterComment on above:Performed By: #### [id number] ####[facility] [id number] [place] [phone] NoteCall received from u/s, bladder not full. Conway catheter education provided to patient, agrees to insertion at this time.[facility] CenterEvaluation noteNo assessment information availableSumma [facility] Work Phone: Evaluation note* Diagnosis Female infertility Female infertility of unspecified origin Anovulation Female infertility associated with anovulation [facility] Diagnosis Pelvic pain in female Unspecified symptom associated with female genital organs [facility] Diagnosis Missed menses , unspecified gestational age Encounter for supervision of normal first in first trimester [facility]* Diagnosis 12 weeks gestation of First trimester state, incidental [facility]* Diagnosis 16 weeks gestation of Second trimester state, incidental Well woman exam with routine gynecological exam Routine gynecological examination STD exposure Vaginal discharge Leukorrhea, not specified as infective Screening, , for anatomic survey Encounter for anatomic survey [facility]* Diagnosis 20 weeks gestation of Second trimester state, incidental [facility]* Diagnosis 25 weeks gestation of Second trimester state, incidental Encounter for follow-up ultrasound of anatomy Diabetes mellitus screening Screening for diabetes mellitus documented [facility] this [facility]* Diagnosis Third trimester state, incidental 28 weeks gestation of documented [facility]* Diagnosis Third trimester state, incidental 30 weeks gestation of documented [facility]* Diagnosis Third trimester (HHS-HCC) state, incidental 32 weeks gestation of (HHS-HCC) size inconsistent with dates (HHS-HCC) [facility]* Diagnosis size inconsistent with dates (HHS-HCC) 34 weeks gestation of (HHS-HCC) Third trimester (HHS-HCC) state, incidental Excessive growth affecting management of in third trimester, single or unspecified fetus (HHS-HCC) [facility] Additional Instructions Keep that area clean and dry Avoid putting any adhesives to area affected Take antibiotic as instructed until gone Clean with 9 deodorized soap Follow with your surgeon on Friday Return here if any problems persist or worsen including fever, chills or any other concernsSum[facility] Work Phone: Hospital Discharge instructions Additional Instructions It is important you follow-up with your CARBIDE DIE MAKER call for appointment. Please return here if you develop any fevers, chills, shortness of breath, numbness, tingling, unilateral weakness or any other concernsSumma [facility] Work Phone: Summary Purpose Family History No [...] iup back pain October 26, 2024 9:35am Chief Complaint Admit Date abd pain, back pain February 10, 2025 8:24am Additional Source Comments INFORMATION SOURCE (unrecogn ized section and content) DATE CREATED AUTHOR 04/20/2021 [facility] DATE CREATED AUTHOR AUTHOR'S ORGANIZ ATION 01/23/2023 [facility] DATE CREATED AUTHOR AUTHOR'S ORGANIZ ATION 02/12/2025 [facility] DATE CREATED AUTHOR AUTHOR'S ORGANIZ ATION 04/09/2025 [facility] EPIC Care Teams (unrecognized sec tion and content) Team Status: Inactive Member Role Status Dates ROBBIN Stout Primary Care Provider Active Dominic Hester Attending Provider Active Team Status: Active Member Role Status Dates ROBBIN Stout Primary Care Provider Active Team Status: Inactive Member Role Status Dates ROBBIN Stout Primary Care Provider Active Monika Camarillo APRN Emergency Provider Active Team Status: Inactive Member Role Status Dates Naomy Luby , SHEAR SCRAPMAN-C Primary Care Provider Active Sylvia Romero PA-C Attending Provider Active Team Status: Inactive Member Role Status Dates Naomy Garcia SHEAR SCRAPMAN-C Primary Care Provider Active S tart: February 09, 2024 End: February 09, 2024 Dominic Hester Attending Provider Active Start: Stephanie solomon 2023 End: February 09, 2024 Team Status: Active Member Role Status Dates PHYSICIAN NO FAMILY Primary Care Provider Active Team Status: Inactive Member Role Status Dates Naomy Garcia SHEAR SCRAPMAN-C Primary Care Provider Active S tart: February [...] June 17, 2024 End: June 17, 2024 Telephone Assembler Relationship Specialty Start Date End Date Sylvia Romero PA [address] [place], [place] [address] [address] PCP - [facility] 07/06/24 Telephone Assembler Relationship Specialty Start Date End Date Sylvia Romero PA [address] [place] [address] [place] [address] PCP - [facility] 07/06/24 Telephone Assembler Relationship Specialty Start Date End Date Sylvia Romero PA [address] [place], [place] [address] [place] [address] PCP - [facility] 07/06/24 Team Status: Inactive Member Role Status Dates PHYSICIAN NO FAMILY Primary Care Provider Active Start: October 26, 2024 End: October 26, 2024 Ale Fragoso APRN Emergency Provider Active S tart: October 26, 2024 End: October 26, 2024 Telephone Assembler Relationship Specialty Start Date End Date Sylvia Romero PA [address] [place] [address] PCP - [facility] 07/06/24 Telephone Assembler Relationship Specialty Start Date End Date Sylvia Romero PA [address] [place], [facility] PCP - [facility] 07/06/24 Telephone Assembler Relationship Specialty Start Date End Date Sylvia Romero [place] [facility] [place] [address] PCP - [facility] 07/06/24 Telephone Assembler Relationship Specialty Start Date End Date Sylvia Romero PA [address] [place], [place] [address], [facility] PCP - [facility] 07/06/24 Telephone Assembler Relationship Specialty Start Date End Date Sylvia Romero [place] [facility] [place] [address] PCP - [facility] 07/06/24 Telephone Assembler Relationship Specialty Start Date End Date Sylvia Romero [place] [facility] [place] [address] PCP - [facility] 07/06/24 Team Status: Inactive Member Role Status Dates PHYSICIAN NO FAMILY Primary Care Provider Active Start: February 10, 2025 End: February 10, 2025 Malcolm Gaston DO Emergency Provider Active St art: February 10, 2025 End: February 10, 2025 Telephone Assembler Relationship Specialty Start Date End Date Sylvia Romero PA [address] [place] [address] PCP - [facility] 07/06/24 Telephone Assembler Relationship Specialty Start Date End Date Sylvia Romero PA [address] [place] [address] PCP - [facility] 07/06/24 Telephone Assembler Relationship Specialty Start Date End Date Sylvia Romero PA [address] [place], [place] [address] [place] [address] PCP - [facility] 07/06/24 Telephone Assembler Relationship Specialty Start Date End Date Sylvia Romero PA [address] [place], [place] [address] [place], [place] [address] PCP - [facility] 07/06/24 Telephone Assembler Relationship Specialty Start Date End Date Sylvia Romero PA [address] [place] [address] [place] [address] PCP - [facility] 07/06/24 Goals (unrecognized section and [...] BE BASED ON THE PRIMARY CLINICAL RECORDS. [employer] [facility]. provides no warranty or guarantee of the accuracy or completeness of information in this document.
[2025-04-16 17:16] VITALS: BP 105/55; PULSE 69
== END 2025-04-16 17:38 | disposition home or self-care (01) ==
LOC: FBCO 17:11 → FBC 17:12
PROVIDERS: Visit Provider Obstetrics & Gynecology
DX: O36.63X0 Maternal care for excessive fetal growth, third trimester, not applicable or unspecified (principal)
CPT/HCPCS: 59025

== ENCOUNTER 2025-04-19 19:26 | Outpatient (REF) | payer OTHER, SELFPAY ==
--- OUTSIDE RECORDS SUMMARY | 2024-10-01 09:03 | XMS_ITS | Continuity of Care Document ---
Author Organization [facility] Address [address] [place] [address] Phone Care Team Providers Care Packaging Sales Name Role Phone Jagdeep CHAVIRA, Emilee Unavailable Unavailable Allergies, Adverse Reactions, Alerts Substance Reaction Status Criticality No Known Allergies Active No Inform ation Procedures Procedure Date URINE TEST URINALYSIS NONAUTO W/O SCOPE RAPID STI Chalm/Gonorr/Trich OFFICE/OUTPATIENT VISIT, EST OFFICE/OUTPATIENT VISIT, NEW Bp scrn perf rec interval DIAST BP < 80 MM HG SYST BP < 130 MM HG MED LIST DOCD IN [facility] RVW MEDS BY RX/DR IN [facility] Pt inelig neg scrn depres RAPID STI Chalm/Gonorr/Trich Advance Directives Directive Yes / No Effective Date File Name No Information Encounters Encounter Description Practice Location Reason(s) For Visit Diagnoses Date Provider Providers Copied on Encounter [facility], [address] [place] [address], [id number], [place] tel:[phone] [facility] Screening for cervical cancerScreening for cervical cancer 4 Jagdeep Hebert. [address] [place] [address], [id number] , [place]. tel:[phone] OFFICE/OUTPAT IENT VISIT, EST [facility], [address] [place] [address], [id number], [place] tel:[phone] ECJFS vaginal discharge/ itching (chief complaint) Encounter for screening for infections with a predominantly sexual mode of transmissionOther problems related to lifestyleVaginal discharge 4 Jagdeep Hebert. [address] [place], [place], [id number] , [place]. tel:[phone] OFFICE/OUTPAT IENT VISIT, [facility], [address] [place], [place], [id number], [place] tel:[phone] ECJFS possible exposure (chief complaint) Body mass index [BMI] 21.0-21.9, adultEncounter for screening for infections with a predominantly sexual mode of transmissionOther problems related to lifestyleBody mass index [BMI] 22.0-22.9, adult 3 Jagdeep Hebert. [address] [place] [address], [id number] , [place]. 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 She does not have a primary usp. Discuss establishing care here and pt agreeable. [...]
--- OUTSIDE RECORDS SUMMARY | 2025-04-06 14:50 | XMS_ITS | Encounter Summary ---
Author Organization [facility] Address [address] [place] [address] Care Team Providers Care Inventory Associate Name Role Phone Sylvia Romero Unavailable Reason for Visit * Reason Comments Routine Visit Encounter Details Date Type Department Care Team (Latest Contact Info) Description 04/06/2025 2:50 PM EDT Routine [facility] OB [address] [facility] [address] Sylvia Romero PA [address] [facility] [place] [address] size inconsistent with dates ([facility]); 34 weeks gestation of ([facility]); Third trimester ([facility]); Excessive growth affecting management of in third trimester, single or unspecified fetus ([facility]) Social History Tobacco Use Types Packs/Day Years [...] Sign Reading Time Taken Comments Blood Pressure 120/74 04/06/2025 3:27 PM EDT Pulse - - Temperature - - Respiratory Rate - - Oxygen Saturation - - Inhaled Oxygen Concentration - - Weight 74.4 kg (164 lb) 04/06/2025 3:27 PM EDT Height - - Body Mass Index 29.05 03/09/2024 2:55 PM EDT documented in this encounter Progress Notes * FANG [place] - 04/06/2025 2:50 PM EDT Reason for Appointment: Patient ID: [...] Anovulation 07/19/2024 confirmed by positive blood test ([facility]) 09/09/2024 20 weeks gestation of ([facility]) 12/28/2024 Second trimester ([facility]) 12/28/2024 Resolved Ambulatory Problems Diagnosis Date Noted No Resolved Ambulatory Problems Past Medical History: Diagnosis Date Anxiety Asthma ([facility]) Dyspareunia in female Endometriosis Folliculitis Hematuria Miscarriage ([facility]) PID (acute pelvic inflammatory disease) Trichomoniasis 2013 HISTORY PAST MEDICAL HISTORY SOCIAL HISTORY Past Medical History: Diagnosis Date Anxiety Asthma ([facility]) Dysmenorrhea Dyspareunia in female Endometriosis Folliculitis Hematuria Miscarriage ([facility]) PID (acute pelvic inflammatory disease) Trichomoniasis 2012 [...] Exam Constitutional: Appearance: Normal appearance. She is normal weight. HENT: Head: Normocephalic. Cardiovascular: Rate and Rhythm: Normal rate. Pulses: Normal pulses. Pulmonary: Effort: Pulmonary effort is normal. Breath sounds: Normal breath sounds. Abdominal: Palpations: Abdomen is soft. Musculoskeletal: General: Normal range of motion. Neurological: General: No focal deficit present. Mental Status: She is alert and oriented to person, place, and time. Skin: General: Skin is warm. Psychiatric: Mood and Affect: Mood normal. Behavior: Behavior normal. Thought Content: Thought content normal. Judgment: Judgment normal. Vitals and nursing note reviewed. Vitals: Estimated body mass index is 28.7 kg/m?? as calculated from the following: Height as of 03/09/24: 5' 3 . Weight as of 03/23/25: 162 lb. BP: Patient's last menstrual period was 08/05/2024. ASSESSMENT & PLAN ICD-10-CM 1. size inconsistent with dates ([facility]) O26.849 US OB follow up transabdominal approach 2. 34 weeks gestation of ([facility]) Z3A.34 3. Third trimester ([facility]) Z34.93 POCT urinalysis dipstick manually resulted Return OB: Patient presents today for a routine obstetrics appointment. Patient is currently 34w6d . Patient states she is doing well but has complaints of being tired due to current and complains of having uncomfortable vaginal pressure today and contractions on Friday. Pt states she did not go to the hospital. Patient has verbalizes frequent movement. labor precautions was discussed/given and patient was instructed to perform kick counts three times a day. Sylvia Romero gave patient orders for a Growth US q 4 until delivery and to start doing NST/BPP starting at 35 weeks until delivery. Orders Placed This Encounter Procedures POCT urinalysis dipstick manually resulted Follow Up: Patient is to return to office in 2 week for routine OB appointment. Documented by Yuko Hernandez MA on behalf of: FANG Jackson documented in this encounter Plan of Treatment Upcoming Encounters Date Type Department Care Team (Late st Contact Info) Description 04/26/2025 11:30 AM EDT Routine [facility] OB [address] [place] [phone] Dominic Hester, [address] [place] [address] Pending Results Name Type Priority Associated Diagnoses Date /Time US OB follow up transabdominal approach Imaging Routine size inconsistent with dates ([facility]) 04/06/2025 2:45 PM EDT documented as of this encounter Procedures Procedure Name Priority Date/Time Associated Diagnosis Comments POCT URINALYSIS DIPSTICK Routine 04/06/2025 3:34 PM EDT Third trimester ([facility]) documented in this encounter Results * POCT urinalysis dipstick manually resulted (04/06/2025 3:34 PM EDT) Color, UA Yellow Clarity, UA Clear Glucose, UA Negative Negative - 2000(110) ++++ mg/dL Bilirubin, UA Negative Negative - 4(70) +++ mg/dL Ketones, UA Negative Negative - 160(16) ++++ mg/dL Spec Grav, UA 1.005 1 - 1.03 Blood, UA Negative Negative - 50 Brent/mcL pH, UA 7.0 5 - 9 Protein, UA Negative Negative - 2000(20) ++++ mg/dL Urobilinogen, UA 0.2 0.2 - 12 mg/dL Leukocytes, UA Positive Negative - 500+++ Kae/mcL Comment:small Nitrite, UA Negative Negative - Positive Urine 04/06/2025 3:34 PM EDT Sylvia HEADLEY POINT OF CARE TEST ENTER/EDIT OR DERABLES Final Result documented in this encounter Visit Diagnoses Diagnosis size inconsistent with dates ([facility]) 34 weeks gestation of ([facility]) Third trimester ([facility]) state, incidental Excessive growth affecting management of in third trimester, single or unspecified fetus ([facility]) documented in this encounter Care Teams Inventory Associate Relationship Specialty Start Date End Date Sylvia Romero PA [address] [place] [address] [place] [address] PCP - [facility] WINDOWS SERVER ADMINISTRATOR 07/06/24 documented as of this encounter
--- OUTSIDE RECORDS SUMMARY | 2025-04-19 14:20 | XMS_ITS | Encounter Summary ---
Author Organization [facility] Address [address] [place] [address] Care Team Providers Care Printing Roller Handler Name Role Phone Sylvia Romero Unavailable Reason for Visit * Reason Comments Routine Visit Encounter Details Date Type Department Care Team (Late st Contact Info) Description 04/19/2025 2:20 PM EDT Routine [facility] [address] [place] [address] Dominic Hester, DO [address] [facility] [address] [place], [place] [id number] Third trimester ([facility]); Mood changes Social History Tobacco Use Types [...] 2:55 PM EDT documented in this encounter Plan of Treatment Upcoming Encounters Date Type Department Care Team (Late st Contact Info) Description 04/26/2025 11:30 AM EDT Routine [facility] [address] [place] [address] Dominic Hester DO [address] [place], [place] [id number] Scheduled Orders Name Type Priority Associated Diagnoses Orde r Schedule CULTURE, GROUP B STREP WITH SUSCEPTIBLITY Lab Routine Third trimester ([facility]) Expected: 04/19/2025, Expires: 04/19/2026 documented as of this encounter Visit Diagnoses Diagnosis Third trimester ([facility]) state, incidental Mood changes Unspecified episodic mood disorder documented in this encounter Care Teams Printing Roller Handler Relationship Specialty Start Date End Date Sylvia Romero PA [address] [place], [place] [id number] PCP - [facility] WASHROOM OPERATOR 07/06/24 documented as of this encounter
--- OUTSIDE RECORDS SUMMARY | 2025-04-19 19:31 | XMS_ITS | Encounter Summary ---
Author Organization [facility] Address [address] [place] [address] Care Team Providers Care Boarding Room Fixer Name Role Phone Sylvia Romero FANG Unavailable Encounter Details Date Type Department Care Team (Late Contact Info) Description 09/17/2024 Abstract [facility] OB [address] [place] [id number] Dominic Hester, DO [address] [facility] [address] [place], [place] [id number] Social History Tobacco Use Types Packs/Day Years [...] AM EDT Routine [facility] [address] [facility] [place] [address] Dominic Hester DO [address] [facility] [address] [place], [place] [id number] documented as of this encounter Visit Diagnoses Not on filedocumented in this encounter Care Teams Boarding Room Fixer Relationship Specialty Start Date End Date Sylvia Romero PA [address] [facility] [address] [place], [place] [id number] PCP - [facility] ROAD PATCHER 07/06/24 documented as of this encounter
--- OUTSIDE RECORDS SUMMARY | 2025-04-19 19:31 | XMS_ITS | Clinical Summary ---
Author Organization [facility] Healthcare Address [address] [place] [address] Care Team Providers Care Bung Driver Name Role Phone Sylvia Enriquez Unavailable Allergies No known active allergies Medications ondansetron ODT (Zofran-ODT) 4 MG disintegrating tabletIndications:P regnancy confirmed by positive blood test ([facility]),Nausea Take 1 tablet (4 mg) by mouth every 6 (six) hours if needed for nausea or vomiting for up to 30 doses 30 tablet 2 4 Active Vit-Fe Fumarate-FA ( Vitamins) 28-0.8 MG tabletIndications:P regnancy confirmed by positive blood test ([facility]) Take 1 tablet by mouth Daily 30 tablet 4 09/09/20 25 Active iron polysaccharides (ProFe) 391.3 (180 Fe) MG capsuleIndications: Low iron Take 1 capsule (391.3 mg) by mouth Daily 30 capsule 5 02/22/20 26 Active citalopram (CeleXA) 20 MG tabletIndications:M ood changes Take 1 tablet (20 mg) by mouth Daily 30 tablet 11 5 04/19/20 26 Active Active Problems Problem Noted Date Diagnosed Date 20 weeks gestation of ([facility]) 2024 Second trimester ([facility]) 12/28/2024 confirmed by positive blood test ([facility]) 09/09/2024 Anovulation 07/19/2024 Dysmenorrhea 03/11/2023 Menorrhagia with irregular cycle 03/11/2023 Missed menses 03/11/2023 Nausea and vomiting 03/11/2023 Pain in female genitalia on intercourse 03/11/20 23 Pain in pelvis 03/11/2023 Scar of skin 03/11/2023 Estimated Date of Delivery Comme nts Yes 05/12/2025 Based on last me nstrual period of 08/05/2024 Encounters Date Type Department Care Team Description 04/19/2025 2:20 PM EDT [facility]ine [facility] [address] [facility] [place] [address] Adonis Hester DO Third trimester ([facility]); Mood changes 04/19/2025 Bamboo flowsheet [facility] [address] [place] [address] [place] [address] Adonis Hester DO 04/19/2025 Travel 04/13/2025 Clinisync Result Encounter [facility] External Department Unsolicited Sylvia Enriquez PA 04/06/2025 2:50 PM EDT Routine [facility] [address] [place], [place] [address] [address] Sylvia Enriquez PA size inconsistent with dates ([facility]); 34 weeks gestation of ([facility] Third trimester ([facility]); Excessive growth affecting management of in third trimester, single or unspecified fetus ([facility]) 04/06/2025 Clinisync Result Encounter [facility] External Department Unsolicited Adonis Hester DO 04/05/2025 Travel 03/24/2025 Patient Outreach [facility] [place] [place] [phone] Sylvia Villa LPN 03/23/2025 2:30 PM EDT [facility] [address] [facility] [place] [address] Adonis Hester DO Third trimester ([facility]); 32 weeks gestation of ([facility]); size inconsistent with dates ([facility]) 03/23/2025 Bamboo flowsheet [facility] [address] [place] [address] Adonis Hester, 03/23/2025 Travel 03/09/2025 2:30 PM EDT Routine [facility] [address] [place] [address] [place] [address] Sylvia Enriquez PA Third trimester ([facility]); 30 weeks gestation of ([facility]) 03/09/2025 Bamboo flowsheet [facility] [address] [facility] [place] [address] Sylvia Enriquez PA 03/08/2025 Travel 03/01/2025 Patient Outreach [facility] [address] [place] [address] Sylvia Villa LPN 02/23/2025 2:50 PM EDT Routine [facility] [address] [place] [address] [place] [address] Adonis Hester DO Third trimester ([facility]); 28 weeks gestation of ([facility]) 02/23/2025 Bamboo flowsheet [facility] [address] [facility] [place] [address] Adonis Hester DO 02/23/2025 Travel 02/21/2025 Results Follow-Up [facility] [address] [place] [address] [place] [address] Zainab Mcwilliams LPN 02/21/2025 Telephone [facility] [address] [place] [address] [place] [address] Zainab Mcwilliams LPN 02/17/2025 2:30 PM EDT Ancillary Procedure [facility] [address] [place] [address] [place] [address] Encounter for follow-up ultrasound of anatomy ([facility]) 02/17/2025 Clinisync Result Encounter [facility] External Department Unsolicited Amaya Steve NP 02/17/2025 Travel 01/31/2025 2:50 PM EDT Routine [facility] [address] [facility] [place] [address] Amaya Steve NP 25 weeks gestation of ([facility]); Second trimester ([facility]); Encounter for follow-up ultrasound of anatomy ([facility]); Diabetes mellitus screening 01/31/2025 Bamboo flowsheet [facility] [address] [facility] [place] [address] Amaya Steve NP 01/31/2025 Travel from Last [...] 12 oz) 04/19/2025 2:23 PM EDT Height 160 cm (5' 3 ) 03/09/2024 2:55 PM EDT Body Mass Index 29.54 03/09/2024 2:55 PM EDT Plan of Treatment Upcoming Encounters Date Type Department Care Team (Late st Contact Info) Description 04/26/2025 11:30 AM EDT Routine [facility] [address] [facility] [place] [address] Adonis Hester, DO [address] [facility] [place] [address] Health Maintenance Due Date Last Done Comments Influenza Vaccine (#1) 2025 Cervical Cancer Screening 11/30/2025 HPV/Cotest 11/30/2025 05/30/2023, 11/14/2020 Pap Smear 11/30/2025 11/30/2024, 05/30/2023, 020 06/2021 Procedures Procedure Name Priority Date/Time Associated Diagnosis Comments OB BPP W NON-STRESS 04/13/2025 4:17 PM EDT POCT URINALYSIS DIPSTICK Routine 04/06/2025 3:34 PM EDT Third trimester ([facility]) US OB GROWTH 04/06/2025 2:48 PM EDT POCT URINALYSIS DIPSTICK Routine 03/23/2025 2:44 PM EDT Third trimester ([facility]) POCT URINALYSIS DIPSTICK Routine 03/09/2025 3:02 PM EDT Third trimester ([facility]) POCT URINALYSIS DIPSTICK Routine 02/23/2025 5:25 PM EDT Third trimester ([facility]) US OB LIMITED 1+ FETUSES Routine 02/17/2025 2:51 PM EDT Encounter for follow-up ultrasound of anatomy ([facility]) GLUCOSE 1 HOUR Routine 02/17/2025 2:25 PM EDT ALL CBC WITH AUTO DIFF Routine 02/17/2025 2:25 PM EDT POCT URINALYSIS DIPSTICK Routine 01/31/2025 3:29 PM EDT 25 weeks gestation of ([facility]) Second trimester ([facility]) PAP SMEAR Routine 11/30/2024 12:00 AM EST THINPREP PAP AND HPV MRNA E6/E7 W/RFL HPV 16,18/45 Routine 05/30/2023 10:04 AM EDT Well woman exam with routine gynecological exam from Last 3 Months or Most Recently Relevant to Health Maintenance Results * US OB BPP W NON-STRESS (04/13/2025 4:17 PM EDT) Anatomical Region Laterality Modality Other 04/13/2025 4:17 PM EDT Narrative 04/13/2025 4:19 PM EDT [address] [address] Ultrasound Report Signed Patient: BREANA JOHN MR#: [id number] : 1990 Acct:[id number] Age/Sex: 34 / F ADM Date: Loc: US Attending Dr: Sylvia Enriquez Ordering Physician: Sylvia Enriquez Date of Service: 04/13/25 Procedure(s): US OB BPP w non-stress Accession Number(s): [id number] cc: Sylvia Enriquez; Physician,Non-Staff M.D. [address] [id number] Patient Name: BREANA JOHN MRN: [id number] date: 1990 Sex: F Assigned Patient Location: [place] Current Patient Location: [place] Accession/Order Number: [id number] Exam Date: 04/13/2025 16:16 Report Date: 04/13/2025 16:17 At the request of: SYLVIA ENRIQUEZ Procedure: US OB BPP w non-stress Ultrasound [...] Burleson M.D. 04/13/2025 4:17 PM Dictation Location: [place] [address] Electronically authenticated by: [id number] Y Date: 04/13/2025 16:17 Dictated By: Tanner Burleson D.O. Signed By: 04/13/25 1619 DD/ TD/TT: Domestic Cleaner: Procedure Note Radiology, Radiologist, MD - 04/13/2025 [place] [address] Ultrasound Report Signed Patient: BREANA JOHN NMR#: [id number] : 1990Acct:[id number] Age/Sex: 34 / FADM Date: Loc: US Attending Dr: Sylvia Enriquez Ordering Physician: Sylvia Enriquez Date of Service: 04/13/25 Procedure(s): US OB BPP w non-stress Accession Number(s): [id number] cc: ySlvia Enriquez; Physician,Non-Staff MPaula The [address] [address] Patient Name: BREANA JOHN MRN: [id number] date: 1990 Sex: F Assigned Patient Location: US Current Patient Location: [facility] Accession/Order Number: [id number] Exam Date: 04/13/2025 16:16 Report Date: 04/13/2025 16:17 At the request of: SYLVIA ENRIQUEZ Procedure: US OB BPP w non-stress Ultrasound biophysical profile HISTORY: Excessive growth Adequate breathing movement, gross body movement, tone and amniotic fluid volume for total score of 8 out of 8. The amniotic fluidindex is 14.9cm within normal limits. The heart rate 144 bpm. US/US OB BPP w non-stress IMPRESSION: Adequate ultrasound biophysical profile Impression dictated by: Tanner Burleson M.D. 04/13/2025 4:17 PM Dictation Location: [employer] Electronically authenticated by: [id number] Y Date: 6:17 Dictated By: Tanner Burleson D.O. Signed By:04/13/259 DD/ 16 TD/TT: Domestic Cleaner: us Sylvia HEADLEY [facility] Final Result * POCT urinalysis dipstick manually resulted (04/06/2025 3:34 PM EDT) Only the most recent of5 resultswithin the time period is included. Color, [...] - Positive Urine 04/06/2025 3:34 PM EDT us Sylvia HEADLEY POINT OF CARE TEST ENTER/EDIT OR DERABLES Final Result * US OB GROWTH (04/06/2025 2:48 PM EDT) Anatomical Region Laterality Modality Other 04/06/2025 2:48 PM EDT Narrative 04/06/2025 2:51 PM EDT [address] [address] Ultrasound Report Signed Patient: BREANA JOHN MR#: [id number] : 1990 Acct:[id number] Age/Sex: 34 / F ADM Date: 04/06/25 Loc: US Attending Dr: Adonis Hester D.O. Ordering Physician: Adonis Hester D.O. Date of Service: 04/06/25 Procedure(s): US OB growth Accession Number(s): [id number] cc: Adonis Hester D.O.; Physician,Non-Staff [place] [facility] [address] [id number] Patient Name: BREANA JOHN MRN: [id number] date: 1990 Sex: F Assigned Patient Location: US Current Patient Location: US Accession/Order Number: [id number] Exam Date: 04/06/2025 14:46 Report Date: 04/06/2025 14:48 At the request of: ADONIS HESTER DO Procedure: US OB growth Growth [...] Jr., D.O. 04/06/2025 2:48 PM Dictation Location: [place] [address] Electronically authenticated by: [id number] Y Date: 04/06/2025 14:48 Dictated By: Seferino Tay M.D. Signed By: 04/06/25 1451 DD/ 1448 TD/TT: Domestic Cleaner: Procedure Note Radiology, Radiologist, - 04/06/2025 [place] [address] Ultrasound Report Signed Patient: BREANA JOHN NMR#: [id number] : 1990Acct:[id number] Age/Sex: 34 / FADM Date: 04/06/25 Loc: US Attending Dr: Adonis Hester D.O. Ordering Physician: Adonis Hester D.O. Date of Service: 04/06/25 Procedure(s): US OB growth Accession Number(s): [id number] cc: Adonis Hester D.O.; Physician,Non-Staff [place] [facility] [place] [id number] Patient Name: BREANA JOHN MRN: [id number] date: 1990 Sex: F Assigned Patient Location: US Current Patient Location: US Accession/Order Number: [id number] Exam Date: 04/06/2025 14:46 Report Date: 04/06/2025 14:48 At the request of: ADONIS HESTER DO Procedure: US OB growth Growth ultrasound. Reason for exam: size and consistent with dates. COMPARISON: None. TECHNIQUE: Transabdominal imaging of the gravid uterus was obtained. FINDINGS: Single live intrauterine 35 weeks 6 days by anatomic measurements. Appropriate growth by dating. Estimated weight oq3946 g which is the 73rd percentile. TAMIR is normal at 11.83 cm. heartrate 144 bpm. position is cephalic at time of scanning. US/US OB growth IMPRESSION: Single live intrauterine 35 weeks 6 days by anatomic measurements. Appropriate growth by dating. Impression dictated by: Seferino Tay Jr., D.O. 04/06/2025 2:48 PM Dictation Location: [place] [address] Electronically authenticated by: [id number] Y Date: 514:48 Dictated By: Seferino Tay M.D. Signed By:04/06/25 1451 DD/ 1448 TD/TT: Domestic Cleaner: us Adonis Hester DO [facility] Final Result * US OB limited 1+ [...] nose/lips. Interpreted by: Electronically signed by RENUKA BLCAK II, MD, PHD at 18-Feb-2025 10:23:07 AM [facility] Procedure Note Renuka Black MD - [...] signed by RENUKA BLACK II, MD, PHD [id number] 10:23:07 AM [facility] Amaya Steve ADJUSTO WRITER OPERATOR IMG OB US PROCEDURES Final Re sult * GLUCOSE 1 HOUR (02/17/2025 2:25 PM EDT) GLUCOSE 1 HOUR 109 <130 mg/dL TB 02/17/2025 2:25 PM EDT 02/17/2025 2:25 PM EDT Narrative [facility] - 02/17/2025 3:12 PM EDT Amaya Steve NP LAB BLOOD ORDERABLES Final Re sult [facility] * (ABNORMAL) ALL CBC WITH AUTO DIFF (02/17/2025 2:25 PM EDT) TBH WBC 5.7 4.0 - 11.0 10 3/uL TBH TB RBC 3.16(L) 4.20 - 5.40 10 6/uL TBH TBH HGB 10.5(L) 12.0 - 16.0 g/dL TBH TB HCT 30.5(L) 36.0 - 48.0 % TBH TB MCV 96.5 81.0 - 99.0 fL TBH TBH MCH 33.2 26.7 - 34.0 pg TBH TBH MCHC 34.4 29.9 - 35.2 g/dL TB TBH RDW 12.9 11.0 - 15.0 % [...] 0.00 - 0.03 10 3/uL TBH 02/17/2025 2:2 5 PM EDT 02/17/2025 2:25 PM EDT Narrative [facility] - 02/17/2025 2:42 PM EDT us Amaya Steve ADJUSTO WRITER OPERATOR [facility] Final Result Performing Organization Address [facility] de Phone Number [facility] TB * Pap Smear (11/30/2024 12:00 AM EST) Swab Cervical swab / Unknown Sylvia HEADLEY LAB CYTOLOGY ORDERABLES Final Re sult Performing Organization Address [facility] Co de Phone Number EXTERNAL LAB * THINPREP PAP AND HPV MRNA E6/E7 W/RFL HPV 16,18/45 (05/30/2023 10:04 AM EDT) Sylvia HEADLEY LAB BLOOD ORDERABLES Final Resul t Performing Organization Address [facility] de Phone Number EXTERNAL LAB from Last 3 Months or Most Recently Relevant to Health Maintenance Insurance [facility] MEDICA[facility] Care Teams Bung Driver Relationship Specialty Start Date End Date Sylvia Enriquez PA [address] [place] [address] [place] [address] PCP - [facility] 07/06/24
--- OUTSIDE RECORDS SUMMARY | 2025-04-19 19:31 | XMS_ITS | Encounter Summary ---
Author Organization [facility] Address [address] [place] [address] Care Team Providers Care Comic Book Writer Name Role Phone Heather Sylvia HEADLEY Unavailable Encounter Details Date Type Department Care Team (Late st Contact Info) Description 12/13/2024 Orders Only [facility] [address] [place] [address] [place] [address] Adriana Hartman MA Social History Tobacco [...] AM EDT Routine [facility] [address] [facility] [place] [address] Dominic Hester DO [address] [facility] [address] [place], [place] [address] documented as of this encounter Procedures Procedure Name Priority Date/Time Associated Diagnosis Comments PAP SMEAR Routine 11/30/2024 12:00 AM EST documented in this encounter Results * Pap Smear (11/30/2024 12:00 AM EST) Swab Cervical swab / Unknown us Sylvia HEADLEY LAB CYTOLOGY ORDERABLES Final Re sult EXTERNAL LAB documented in this encounter Visit Diagnoses Not on filedocumented in this encounter Care Teams Comic Book Writer Relationship Specialty Start Date End Date Sylvia Romero PA [address] [facility] [place] [address] PCP - [place] [facility] PHYSICIAN RELATIONS SPECIALIST 07/06/24 documented as of this encounter
--- OUTSIDE RECORDS SUMMARY | 2025-04-19 19:31 | XMS_ITS | Encounter Summary ---
Author Organization [facility] Address [address] [place] [address] Care Team Providers Care Filament Maker Name Role Phone Sylvia Romero Unavailable Sylvia Romero Unavailable Encounter Details Date Type Department Care Team (Late st Contact Info) Description 05/14/2023 Abstract [facility] [address] [facility] [place] [address] Sylvia Romero PA [address] [facility] [place] [address] Social History Tobacco Use Types Packs/Day [...] Routine [facility] [address] [place] [address] Dominic Hester DO [address] [place], [place] [address] documented as of this encounter Visit Diagnoses Not on filedocumented in this encounter Care Teams Filament Maker Relationship Specialty Start Date End Date Syliva Romero PA [address] [place] [address] [address] - [facility] SKIP LOCATOR 01/05/24 4 Sylvia Romero PA [address] [place] [address] PCP - [facility] SKIP LOCATOR 07/06/24 documented as of this encounter
--- OUTSIDE RECORDS SUMMARY | 2025-04-19 19:31 | XMS_ITS | Encounter Summary ---
Author Organization [facility] Address [address] [place] [address] Care Team Providers Care Wealth Management Consultant Name Role Phone [place] Unavailable Encounter Details Date Type Department Care Team (Late st Contact Info) Description 10/26/2024 Abstract [facility] [address] [place] [address] Dominic Hester, DO [address] [place], [facility] Social History Tobacco Use Types Packs/Day [...] Routine [facility] [address] [place] [address] Dominic Hester DO [address] [place] [address] documented as of this encounter Visit Diagnoses Not on filedocumented in this encounter Care Teams Wealth Management Consultant Relationship Specialty Start Date End Date Sylvia Romero PA [address] [place] [address] PCP - [facility] 07/06/24 documented as of this encounter
--- OUTSIDE RECORDS SUMMARY | 2025-04-19 19:31 | XMS_ITS ---
Author Organization [facility] Address [address] [place] [address] Care Team Providers Care Calibration Checker Name Role Phone Sylvia Romero Unavailable [facility] ([facility]) Status:Enrolled (Active) Start date:02/24/2025 Enrollment date:03/01/2025 Enrollment reason:Identified by Health Plan Case Team Name Relationship Phone Sylvia Villa LPN(Responsible Staff) Licensed [facility] Nurse [phone] Continued Care and Services Coordination
--- OUTSIDE RECORDS SUMMARY | 2025-04-19 19:31 | XMS_ITS | Encounter Summary ---
Author Organization [facility] Address [address] [place] [address] Care Team Providers Care Load Checker Name Role Phone [place] Unavailable Encounter Details Date Type Department Care Team (Late st Contact Info) Description 10/01/2024 Abstract [facility] [address] [place] [address] Dominic Hester, DO [address] [place], [facility] Social History Tobacco Use Types Packs/Day [...] [facility] [address] [place] [address] Dominic Hester DO [address] [place] [address] documented as of this encounter Visit Diagnoses Not on filedocumented in this encounter Care Teams Load Checker Relationship Specialty Start Date End Date Sylvia Romero PA [address] [place] [address] PCP - [facility] 07/06/24 documented as of this encounter
--- OUTSIDE RECORDS SUMMARY | 2025-04-19 19:31 | XMS_ITS | Encounter Summary ---
Author Organization [facility] Address [address] [place] [address] Care Team Providers Care Dog Behaviorist Name Role Phone Sylvia Romero FANG Unavailable Encounter Details Date Type Department Care Team (Latest Contact Info) Description 04/19/2025 Travel Social History Tobacco Use Types Packs/Day [...] 11:30 AM EDT Routine [facility] [address] [address] [place] [address] Dominic Hester DO [address] [place] [address] documented as of this encounter Visit Diagnoses Not on filedocumented in this encounter Care Teams Dog Behaviorist Relationship Specialty Start Date End Date Sylvia Romero PA [address] [place] [address] PCP - [facility] KITCHEN STEWARD 07/06/24 documented as of this encounter
--- OUTSIDE RECORDS SUMMARY | 2025-04-19 19:31 | XMS_ITS | Encounter Summary ---
Author Organization [facility] Address [address] [place] [address] Care Team Providers Care Postdoctoral Research Associate Name Role Phone [place] Unavailable Encounter Details Date Type Department Care Team (Late st Contact Info) Description 10/26/2024 Abstract [facility] OB [address] [place] [phone] Dominic Hester, DO [address] [place]ije[place], [facility]11 Social History Tobacco Use Types [...] [facility] [address] [place] [address] Dominic Hester DO [address] [place] [address] documented as of this encounter Visit Diagnoses Not on filedocumented in this encounter Care Teams Postdoctoral Research Associate Relationship Specialty Start Date End Date Sylvia Romero PA [address] [place] [address] PCP - [facility] 07/06/24 documented as of this encounter
--- OUTSIDE RECORDS SUMMARY | 2025-04-19 19:31 | XMS_ITS | Encounter Summary ---
Author Organization [facility] Address [address] [place] [address] Care Team Providers Care Home Care Manager Rn Name Role Phone [place] Unavailable Encounter Details Date Type Department Care Team (Late st Contact Info) Description 02/21/2025 Results Follow-Up [facility] [address] [facility] [place] [address] Zainab Mcwilliams LPN [address] [place] [address] Social History Tobacco Use Types [...] Routine [facility] [address] [place] [address] Dominic Hester DO [address] [place], [place] [phone] documented as of this encounter Visit Diagnoses Not on filedocumented in this encounter Care Teams Home Care Manager Rn Relationship Specialty Start Date End Date Sylvia Romero PA [address] [place], [place] [phone] PCP - [place] [facility] BRAIDING OPERATOR 07/06/24 documented as of this encounter
--- OUTSIDE RECORDS SUMMARY | 2025-04-19 19:31 | XMS_ITS | Encounter Summary ---
Author Organization [facility] Address [address] [place] [address] Care Team Providers Care Health And Fitness Instructor Name Role Phone Sylvia Romero Unavailable Encounter Details Date Type Department Care Team (Late st Contact Info) Description 04/06/2025 Clinisync Result Encounter [facility] External Department Unsolicited Adonis Hester, DO [address] Abhijeet Aguilar [place], [place] [id number] Social History Tobacco Use Types Packs/Day Years [...] AM EDT Routine [facility] [address] [facility] [place] [address] Adonis Hester DO [address] [place] [address] documented as of this encounter Procedures Procedure Name Priority Date/Time Associated Diagnosis Comments US OB GROWTH 04/06/2025 2:48 PM EDT documented in this encounter Results * US OB GROWTH (04/06/2025 2:48 PM EDT) Anatomical Region Laterality Modality Other 04/06/2025 2:48 PM EDT Narrative 04/06/2025 2:51 PM EDT The [address] [address] Ultrasound Report Signed Patient: BREANA JOHN MR#: [id number] : 1990 Acct:[id number] Age/Sex: 34 / F ADM Date: 04/06/25 Loc: US Attending Dr: Adonis Hester D.O. Ordering Physician: Adonis Hester D.O. Date of Service: 04/06/25 Procedure(s): US OB growth Accession Number(s): [id number] cc: Adonis Hester D.O.; Physician,Non-Staff M.D. The [address] [address] Patient Name: BREANA JOHN MRN: [id number] date: 1990 Sex: F Assigned Patient Location: US Current Patient Location: US Accession/Order Number: [id number] Exam Date: 04/06/2025 14:46 Report Date: 04/06/2025 [...] Jr., D.O. 04/06/2025 2:48 PM Dictation Location: [place] [address] Electronically authenticated by: [id number] Y Date: 04/06/2025 14:48 Dictated By: Seferino Tay M.D. Signed By: 04/06/25 1451 DD/ 1448 TD/TT: National Sales: Procedure Note Radiology, Radiologist, MD - 04/06/2025 [place] [address] Ultrasound Report Signed Patient: BREANA JOHN NMR#: [id number] : 1990Acct:[id number] Age/Sex: 34 / FADM Date: 04/06/25 Loc: US Attending Dr: Adonis Hseter D.O. Ordering Physician: Adonis Hester D.O. Date of Service: 04/06/25 Procedure(s): US OB growth Accession Number(s): [id number] cc: Adonis Hester D.O.; Physician,Non-Staff [place] The [place] [id number] Patient Name: BREANA OJHN MRN: [id number] date: 1990 Sex: F Assigned Patient Location: US Current Patient Location: US Accession/Order Number: [id number] Exam Date: 04/06/2025 14:46 Report Date: 04/06/2025 14:48 At the request of: ADONIS HESTER DO Procedure: US OB growth Growth ultrasound. Reason for exam: size and consistent with dates. COMPARISON: None. TECHNIQUE: Transabdominal imaging of the gravid uterus was obtained. FINDINGS: Single live intrauterine 35 weeks 6 days by anatomic measurements. Appropriate growth by dating. Estimated weight nr2465 g which is the 73rd percentile. TAMIR is normal at 11.83 cm. heartrate 144 bpm. position is cephalic at time of scanning. US/US OB growth IMPRESSION: Single live intrauterine 35 weeks 6 days by anatomic measurements. Appropriate growth by dating. Impression dictated by: Seferino Tay Jr., D.O. 04/06/2025 2:48 PM [facility]ictation [facility] Electronically authenticated by: [id number] Y Date: 4:48 Dictated By: Seferino Tay M.D. Signed By:04/06/25 1451 DD/ 1448 TD/TT: National Sales: [facility] Final Result documented in this encounter Visit Diagnoses Not on filedocumented in this encounter Care Teams Health And Fitness Instructor Relationship Specialty Start Date End Date Sylvia Romero PA [address] [place] [address] [place] [address] PCP - [facility] 07/06/24 documented as of this encounter
--- OUTSIDE RECORDS SUMMARY | 2025-04-19 19:31 | XMS_ITS | Encounter Summary ---
Author Organization [facility] Address [address] [place] [address] Care Team Providers Care E Commerce Director Name Role Phone Sylvia Romero Unavailable Sylvia Romero Unavailable Encounter Details Date Type Department Care Team (Late st Contact Info) Description 02/20/2024 Clinisync Result Encounter [facility] External Department Unsolicited Adonis Hester, DO [address] [place], [facility]11 Social History Tobacco Use Types Packs/Day Years [...] Routine [facility] BCP OB [address] [place] [address] Adonis Hester, DO [address] [facility] [place] [address] documented as of this encounter Procedures Procedure Name Priority Date/Time Associated Diagnosis Comments XR CHEST 2V 02/20/2024 4:06 PM EDT documented in this encounter Results * XR CHEST 2V (02/20/2024 4:06 PM EDT) Anatomical Region Laterality Modality Other 02/20/2024 4:06 PM EDT Narrative 02/20/2024 4:09 PM EDT [address] [address] XRay Report Signed Patient: BREANA JOHN MR#: [id number] : 1990 Acct:[id number] Age/Sex: 33 / F ADM Date: 02/20/24 Loc: [facility] Attending Dr: Adonis Hester D.O. Ordering Physician: Adonis Hester D.O. Date of Service: 02/20/24 Procedure(s): XR chest 2V Accession Number(s): [id number] cc: Adonis Hester D.O.; Physician,Non-Staff MPaula [address] [address] Patient Name: BREANA JOHN MRN: [facility]:[id number] date: 1990 Sex: F Assigned Patient Location: SURGOUT Current Patient Location: [facility] Accession/Order Number: [id number] Exam Date: 02/20/2024 13:05 Report Date: 02/20/2024 [...] M.D. Signed By: 02/20/241608 DD/ 05 TD/TT: Edgerman: Procedure Note Radiology, Radiologist, - 02/20/2024 [place] [address] XRay Report Signed Patient: BREANA JOHN NMR#: [id number] : 1990Acct:[id number] Age/Sex: 33 / FADM Date: 02/20/24 Loc: PST Attending Dr: Adonis Hester D.O. Ordering Physician: Adonis Hester D.O. Date of Service: 02/20/24 Procedure(s): XR chest 2V Accession Number(s): [id number] cc: Adonis Hester D.O.; Physician,Non-Staff [place] The [place] [id number] Patient Name: BREANA JOHN MRN: [facility]:[id number] date: 1990 Sex: F Assigned Patient Location: [facility] Current Patient Location: [facility] Accession/Order Number: [id number] Exam Date: 02/20/2024 13:05 Report Date: 02/20/2024 [...] Huitron M.D. Signed By:02/20/241608 DD/ 05 TD/TT: Edgerman: us Adonis Mir DO [facility] Final Result documented in this encounter Visit Diagnoses Not on filedocumented in this encounter Care Teams E Commerce Director Relationship Specialty Start Date End Date Sylvia Romero PA [address] [facility] [place] [address] PCP - [facility] BENDING MACHINE OPERATOR 01/05/24 4 Sylvia Romero PA [address] [facility] [place] [address] PCP - [facility] BENDING MACHINE OPERATOR 07/06/24 documented as of this encounter
--- OUTSIDE RECORDS SUMMARY | 2025-04-19 19:31 | XMS_ITS | Encounter Summary ---
Author Organization [facility] Address [address] [place] [address] Care Team Providers Care Rod Machine Operator Name Role Phone [place] Unavailable Encounter Details Date Type Department Care Team (Late st Contact Info) Description 04/19/2025 Bamboo flowsheet [facility] OB [address] [place] [address] Dominic Hester, DO [address] [facility] [address] Abhijeet [place], [facility]11 Social History Tobacco Use Types Packs/Day [...] Routine [facility] BCP OB [address] [place] [address] Dominic Hester DO [address] [place] [address] documented as of this encounter Visit Diagnoses Not on filedocumented in this encounter Care Teams Rod Machine Operator Relationship Specialty Start Date End Date Sylvia Romero PA [address] [place] [address] PCP - [facility] CD MIXER 07/06/24 documented as of this encounter
--- OUTSIDE RECORDS SUMMARY | 2025-04-19 19:31 | XMS_ITS | Encounter Summary ---
Author Organization [facility] Address [address] [place] [address] Care Team Providers Care Superintendent Renting Managing Name Role Phone Sylvia Romero FANG Unavailable [...] 11:30 AM EDT Routine [facility] BCP OB [address] [place] [address] [place] [address] Dominic Hester DO [address] [place] [address] documented as of this encounter Visit Diagnoses Not on filedocumented in this encounter Care Teams Superintendent Renting Managing Relationship Specialty Start Date End Date Sylvia Romero PA [address] [place] [address] PCP - [facility] LAUNDRY ATTENDANT 07/06/24 documented as of this encounter
--- OUTSIDE RECORDS SUMMARY | 2025-04-19 19:31 | XMS_ITS | Encounter Summary ---
Author Organization [facility] Address [address] [place] [address] Care Team Providers Care Medical Manager Name Role Phone Sylvia Enriquez Unavailable Encounter Details Date Type Department Care Team (Late st Contact Info) Description 04/13/2025 Clinisync Result Encounter [facility] External Department Unsolicited Sylvia Enriquez PA [address] [facility] [address] [place], [facility] Social History Tobacco Use Types Packs/Day [...] AM EDT Routine [facility] BCP OB [address] [place] [address] Dominic Hester, DO [address] [facility] [place] [address] documented as of this encounter Procedures Procedure Name Priority Date/Time Associated Diagnosis Comments US OB BPP W NON-STRESS 04/13/2025 4:17 PM EDT documented in this encounter Results * US OB BPP W NON-STRESS (04/13/2025 4:17 PM EDT) Anatomical Region Laterality Modality Other 04/13/2025 4:17 PM EDT Narrative 04/13/2025 4:19 PM EDT [address] [address] Ultrasound Report Signed Patient: BREANA JOHN MR#: [id number] : 1990 Acct:[id number] Age/Sex: 34 / F ADM Date: Loc: US Attending Dr: Sylvia Enriquez Ordering Physician: Sylvia Enriquez Date of Service: 04/13/25 Procedure(s): US OB BPP w non-stress Accession Number(s): [id number] cc: Sylvia Enriquez; Physician,Non-Staff M.D. The [address] [address] Patient Name: BREANA JOHN MRN: [id number] date: 1990 Sex: F Assigned Patient Location: US Current Patient Location: [facility] Accession/Order Number: [id number] Exam Date: 04/13/2025 16:16 Report Date: 04/13/2025 [...] Burleson M.D. 04/13/2025 4:17 PM Dictation Location: [place] [address] Electronically authenticated by: [id number] Y Date: 04/13/2025 16:17 Dictated By: Tanner Burleson D.O. Signed By: 04/13/25 1619 DD/ TD/TT: Equity Research Analyst: Procedure Note Radiology, Radiologist, - 04/13/2025 [place] [address] Ultrasound Report Signed Patient: BREANA JOHN NMR#: [id number] : 1990Acct:[id number] Age/Sex: 34 / FADM Date: Loc: US Attending Dr: Sylvia Enriquez Ordering Physician: Sylvia Enriquez Date of Service: 04/13/25 Procedure(s): US OB BPP w non-stress Accession Number(s): [id number] cc: Sylvia Enriquez; Physician,Non-Staff [place] The [place] [id number] Patient Name: BREANA JOHN MRN: [id number] date: 1990 Sex: F Assigned Patient Location: Current Patient Location: [facility] Accession/Order Number: [id number] Exam Date: 04/13/2025 16:16 Report Date: 04/13/2025 [...] Burleson M.D. 04/13/2025 4:17 PM Dictation Location: [place] [address] Electronically authenticated by: [id number] Y Date: 6:17 Dictated By: Tanner Burleson D.O. Signed By:04/13/25 1619 DD/ 1617 TD/TT: Equity Research Analyst: us Sylvia HEADLEY [facility] Final Result documented in this encounter Visit Diagnoses Not on filedocumented in this encounter Care Teams Medical Manager Relationship Specialty Start Date End Date Sylvia Enriquez PA [address] [place] [address] [place] [address] PCP - [facility] 07/06/24 documented as of this encounter
--- OUTSIDE RECORDS SUMMARY | 2025-04-19 19:40 | XMS_ITS | CCD ---
Author Organization [facility] Care Team Providers Care National Coverage Specialist Name Role Phone ROBBIN Garcia Primary Care Provider Dominic Hester Attending Provider [phone] Dominic Hester Attending Provider RADHA Camarillo Emergency Provider ROBBIN Garcia Primary Care Provider RADHA [place]illo Emergency Provider [phone] MIR ., DR LAMB Attending Unavailable MIR ., DR LAMB Admitting Unavailable MISC, DR CARRILLO Primary Care Unavailable SHARIF, SEBASTIÁN Consulting Unavailable IMR ., DR LAMB Consulting [...] ., ROGELIO Admitting Unavailable WEST, DR TOR Conrad Consulting Unavailable MISC, DR CARRILLO Primary Care Unavailable ARLETH ., ROGELIO Consulting Unavailable DILIA Romero Attending Provider Dutch Mendez Unavailable ROBBIN Garcia Primary Care Provider [phone] Dominic Hester Attending Provider Mir, DO Dominic Attending Provider NO FAMILY, PHYSICIAN Primary Care Provider Unava ilable DO Dominic Hester Attending Provider Tupa, DO Malcolm Jimenez Emergency Provider Unavailable Primary Care Provider UnavailSylvia Chung Unavailable NO FAMILY, PHYSICIAN Primary Care Provider Unava ilable Fouzia Ale GARCIA Emergency Provider [phone] NO FAMILY, PHYSICIAN Primary Care Provider Unava ilable Tupa Malcolm MARLEY Emergency Provider [phone] FouziaAle bernard Attending Unavailable NO FAMILY, PHYSICIAN [...] tablet Indications: confirmed by positive blood test ([facility]) , Nausea Take 1 tablet (4 mg) by mouth every 6 (six) hours if needed for nausea or vomiting for up to 30 doses 30 tablet 2 09/09/2024 Active polysaccharide iron complex 391 mg oral capsule (14 sources) Start: 02-21-2025 End: 02-21-2026 take 1 capsule by mouth once daily iron polysaccharides (ProFe) 391.3 (180 Fe) MG capsule Indications: Low iron Take 1 capsule (391.3 mg) by mouth Daily 30 capsule 11 02/21/2025 02/21/2026 Active Vit No.197-Xknk-Mxaot ( Vitamin) 27 mg iron- 800 mcg tablet (7 sources) Start: 01-03-2023 take 1 tablet by mouth once daily Vit No.769-Ndyg-Fzcgm ( Vitamin) 27 mg iron- 800 mcg tablet Active 1 TAB PO Daily January 03, 2023 12:00am Start: 01-03-2023 Vit N o.428-Mugy-Wbept ( Vitamin) 27 mg iron- 800 mcg tablet Active TAB TABLET January 02, 2023 11:00pm Start: 01-03-2023 Vit N o.610-Hpqo-Yhfbq ( Vitamin) 27 mg iron- 800 mcg tablet Active TAB TABLET January 03, 2023 12:00am Vit-Fe Fumarate-FA ( Vitamins) 28-0.8 MG tablet (20 sources) Start: 09-09-2024 End: 09-09-2025 take 1 tablet by mouth once daily Vit-Fe Fumarate-FA ( Vitamins) 28-0.8 MG tablet Indications: confirmed by positive blood test ([facility]) Take 1 tablet by mouth Daily [...] hours as needed for pain Hydrocodone-Acetami nophen (Oscoda) 5-325 mg tablet Discontinued 1 TAB PO EVERY 4-6 HOURS as needed for pain 09 07May 14, 2019 June 09, 2019 9:24pm Start: 06-25-2017 End: 01-31-2018 take 1 tablet by mouth every four to six hours as needed for pain Hydrocodone-Acetaminophen (Oscoda) 5-325 mg tablet Discontinued 1 TAB PO EVERY 4-6 HOURS as needed for pain June 25, 2017 January 31, 2018 4:07pm [id number] 200 actuat albuterol 0.09 mg/actuat metered dose [...] Onset: 01-06-2023 Other aftercare (1 source) Other 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; 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] Onset: 01-06-2023 Episodic Other [...] OB BPP W NON-STRESS on 04-13-[address] [address] Ultrasound Report Signed Patient: BREANA CASAS MR#: [id number] : 1990 Acct:[id number] Age/Sex: 34 / F ADM Date: Loc: US Attending Dr: Sylvia Romero Ordering Physician: Sylvia Romero Date of Service: 04/13/25 Procedure(s): US OB BPP w non-stress Accession Number(s): [id number] cc: Sylvia Romero; Physician,Non-Staff MPaula The [address] [address] Patient Name: BREANA CASAS MRN: [facility]:[id number] date: 1990 Sex: F Assigned Patient Location: [place] [facility] [place]/Order Number: [id number] Exam Date: 04/13/2025 16:16 Report Date: 04/13/2025 [...] Burleson M.D. 04/13/2025 4:17 PM Dictation Location: [place] [address] Electronically authenticated by: [id number] Y Date: 04/13/2025 16:17 Dictated By: Tanner Burleson D.O. Signed By: 04/13/25 1619 DD/ 1617 TD/TT: Engine Service Repairer: [facility] Radiology, Radiologist, MD - 04/13/[address] [address] Ultrasound Report Signed Patient: BREANA CASAS MR#: [id number] : 1990 Acct:[id number] Age/Sex: 34 / F ADM Date: Loc: US Attending Dr: Sylvia Romero Ordering Physician: Sylvia Romero Date of Service: 04/13/25 Procedure(s): US OB BPP w non-stress Accession Number(s): [id number] cc: Sylvia Romero; Physician,Non-Staff [place] [address] [id number] Patient Name: BREANA CASAS MRN: [id number] date: 1990 Sex: F Assigned Patient Location: [place] [facility] [place]ion/Order Number: [id number] Exam Date: 04/13/2025 16:16 Report Date: 04/13/2025 [...] Burleson M.D. 04/13/2025 4:17 PM Dictation Location: [place] [address] Electronically authenticated by: [id number] Y Date: 04/13/2025 16:17 Dictated By: Tanner Burleson D.O. Signed By: 04/13/251618 DD/ 16 TD/TT: Engine Service Repairer: [facility] Radiology Study observation (narrative) [facility] US OB BPP W NON-STRESS Ordered By: Radiologist Radiology on 04-13-2025 [facility] Work Phone: US OB GROWTHon 04-06-[address] [address] Ultrasound Report Signed Patient: BREANA CASAS MR#: [id number] : 1990 Acct:[id number] Age/Sex: 34 / F ADM Date: 04/06/25 Loc: US Attending Dr: Dominic Hester D.O. Ordering Physician: Dominic Hester D.O. Date of Service: 04/06/25 Procedure(s): US OB growth Accession Number(s): [id number] cc: Dominic Hester D.O.; Physician,Non-Staff [place] The [address] [address] Patient Name: BERANA CASAS MRN: [facility]:[id number] date: 1990 Sex: F Assigned Patient Location: US Current Patient Location: US Accession/Order Number: [id number] Exam Date: 04/06/2025 14:46 Report Date: 04/06/2025 [...] Jr., D.O. 04/06/2025 2:48 PM Dictation Location: [place] [address] Electronically authenticated by: [id number] Y Date: 04/06/2025 14:48 Dictated By: Seferino Tay M.D. Signed By: 04/06/25 1451 DD/ 1448 TD/TT: Engine Service Repairer: [facility] Radiology, Radiologist, MD - 04/06/[address] [address] Ultrasound Report Signed Patient: BREANA CASAS MR#: [id number] : 1990 Acct:[id number] Age/Sex: 34 / F ADM Date: 04/06/25 Loc: US Attending Dr: Dominic Hester D.O. Ordering Physician: Dominic Hester D.O. Date of Service: 04/06/25 Procedure(s): US OB growth Accession Number(s): [id number] cc: Dominic Hester D.O.; Physician,Non-Staff [place] [id number] Patient Name: BREANA CASAS MRN: [facility]:[id number] date: 1990 Sex: F Assigned Patient Location: US Current Patient Location: US Accession/Order Number: [id number] Exam Date: 04/06/2025 14:46 Report Date: 04/06/2025 [...] Jr., D.O. 04/06/2025 2:48 PM Dictation Location: [place] [address] Electronically authenticated by: [id number] Y Date: 04/06/2025 14:48 Dictated By: Seferino Tay M.D. Signed By: 04/06/25 1451 DD/ 1448 TD/TT: Engine Service Repairer: [facility] Radiology Study observation (narrative) [facility] US OB GROWTHOrdered By: Shane ologist Radiology on 04-06-2025 [facility] Work Phone: Urinalysis macro (dipstick) panel (U)on 04-06-2025 Bilirubin, UA Negative Negative - 4(70) +++ mg/dL [facility] Blood, UA Negative Negative - 50 Brent/mcL [facility] Clarity, UA Clear [facility] Color, UA Yellow [facility] Glucose, UA Negative Negative - 1999(110) ++++ mg/dL [facility] Interpretation and review of laboratory results Normal [facility] Ketones, UA Negative Negative - 160(16) ++++ mg/dL [facility] Leukocytes, UA Positive Negative - 500+++ Kae/mcL [facility] Comment on above: small Nitrite, UA Negative Negative - Positive [facility] pH, UA 7 5 - 9 [facility] Protein, UA Negative Negative - 1999(20) ++++ mg/dL [facility] Spec Grav, UA 1.005 1 - 1.03 [facility] Urobilinogen, UA 0.2 0.2 - 12 mg/dL [facility] Urinalysis macro (dipstick) panel (U)on 03-23-2025 Bilirubin, UA Negative Negative - 4(70) +++ mg/dL [facility] Blood, UA Negative Negative - 50 Brent/mcL [facility] Clarity, UA Clear [facility] Color, UA Yellow [facility] Glucose, UA Negative Negative - 1999(110) ++++ mg/dL [facility] Interpretation and review of laboratory results Normal [facility] Ketones, UA Positive Negative - 160(16) ++++ mg/dL [facility] Comment on above: 15 Leukocytes, UA Negative Negative - 500+++ Kae/mcL [facility] Nitrite, UA Negative Negative - Positive [facility] pH, UA 7 5 - 9 [facility] Protein, UA Negative Negative - 1999(20) ++++ mg/dL [facility] Spec Grav, UA 1.015 1 - 1.03 [facility] Urobilinogen, UA 0.2 0.2 - 12 mg/dL [facility] Urinalysis macro (dipstick) panel (U)on 03-09-2025 Bilirubin, UA Negative Negative - 4(70) +++ mg/dL [facility] Blood, UA Negative Negative - 50 Brent/mcL [facility] Clarity, UA Clear [facility] Color, UA Yellow [facility] Glucose, UA Negative Negative - 1999(110) ++++ mg/dL [facility] Interpretation and review of laboratory results Abnormal [facility] Ketones, UA Negative Negative - 160(16) ++++ mg/dL [facility] Leukocytes, UA Positive Negative - 500+++ Kae/mcL [facility] Comment on above: small Nitrite, UA Negative Negative - Positive [facility] pH, UA 7 5 - 9 [facility] Protein, UA Negative Negative - 1999(20) ++++ mg/dL [facility] Spec Grav, UA 1.015 1 - 1.03 [facility] Urobilinogen, UA 0.2 0.2 - 12 mg/dL [facility] Urinalysis macro (dipstick) panel (U)on 02-23-2025 Bilirubin, UA Negative Negative - 4(70) +++ mg/dL [facility] Blood, UA Negative Negative - 50 Brent/mcL [facility] Clarity, UA Clear [facility] Color, UA Yellow [facility] Glucose, UA Negative Negative - 1999(110) ++++ mg/dL [facility] Interpretation and review of laboratory results Normal [facility] Ketones, UA Negative Negative - 160(16) ++++ mg/dL [facility] Leukocytes, UA Negative Negative - 500+++ Kea/mcL [facility] Nitrite, UA Negative Negative - Positive [facility] pH, UA 6.5 5 - 9 [facility] Protein, UA Negative Negative - 1999(20) ++++ mg/dL [facility] Spec Grav, UA 1.01 1 - 1.03 [facility] Urobilinogen, UA 0.2 0.2 - 12 mg/dL [facility] ALL CBC WITH AUTO DIFFon BASOPHILS ABSOLUTE AUTO 0 N [facility] Basophils/100 WBC (Bld) 0.2 % 0.2 - 2.0 % [facility] Eosinophils/100 WBC (Bld) 2.8 % 0.9 - 7.0 % [facility] Erythrocyte distribution width (RBC) [Ratio] 12.9 % 11.0 - 15.0 % [facility] Hematocrit (Bld) [Volume fraction] 30.5 % Low 36.0 - 48.0 % [facility] Hemoglobin (Bld) [Mass/Vol] 10.5 g/dL Low 12.0 - 16.0 g/dL [facility] IMMATURE GRANULOCYTES ABS AUTO 0.02 [facility] Immature granulocytes/100 WBC (Bld) 0.3 % 0.0 - 0.5 % [facility] Interpretation and review of laboratory results Abnormal [facility] LYMPHOCYTES ABSOLUTE AUTO 0.9 Low [facility] Lymphocytes/100 WBC (Bld) 15.7 % Low 20.5 - 60.0 % [facility] MCH (RBC) [Entitic mass] 33.2 pg 26.7 - 34.0 pg [facility] MCHC (RBC) [Mass/Vol] 34.4 g/dL 29.9 - 35.2 g/dL [facility] MCV (RBC) [Entitic vol] 96.5 fL 81.0 - 99.0 fL [facility] MONOCYTES ABSOLUTE AUTO 0.4 N [facility] Monocytes/100 WBC (Bld) 7.7 % 1.7 - 12.0 % [facility] NEUTROPHILS ABSOLUTE AUTO 4.2 [facility] Neutrophils/100 WBC (Bld) 73.3 % 43.0 - 75.0 % [facility] Platelet mean volume (Bld) [Entitic vol] 9.6 fL 9.5 - 13.5 fL [facility] TBH EO # 0.2 [facility] PLT 167 [facility] RBC 3.16 Low [facility] WBC 5.7 [facility] US OB LIMITED 1+ FETUSESon 0 - [...] II, MD, PHD at 18-Feb-2025 10:23:07 AM [facility] Normal Not Available Comment on above: Order Comment: US OB INCOMPLETE ANATOMY Estimated Date of Delivery: 05/12/25 Gestational Age as of 01/31/2025: 25w4d Alanine aminotransferase [En zymatic activity/volume] in Serum or PlasmaOrdered By: Malcolm Gaston on 02-10-2025 ALT [Catalytic activity/Vol] Alanine aminotransferase [Enzymatic activity/volume] in Serum or Plasma 7-52 [facility] Albumin [Mass/volume] in Ser um or Plasma by Bromocresol green (BCG) dye binding methoOrdered By: Malcolm Gaston on 02-10-2025 Albumin BCG dye [Mass/Vol] Albumin [Mass/volume] in Serum or Plasma by Bromocresol green (BCG) dye binding metho 3.5-5.7 [facility] Alkaline phosphatase [Enzyma tic activity/volume] in Serum or PlasmaOrdered By: Malcolm Gaston on 02-10-2025 ALP [Catalytic activity/Vol] Alkaline phosphatase [Enzymatic activity/volume] in Serum or Plasma 34-104 [facility] Appearance of UrineOrdered B y: Malcolm Gaston on 02-10-2025 Appearance (U) Urine appearance Clear [facility] Aspartate aminotransferase [ Enzymatic activity/volume] in Serum or PlasmaOrdered By: Malcolm Gaston on 02-10-2025 AST [Catalytic activity/Vol] Aspartate aminotransferase [Enzymatic activity/volume] in Serum or Plasma 13-39 [facility] Basic Metabolic Panelon Anion gap [Moles/Vol] 7.9 mmol/L Normal 6.0-15.0 The [facility] Comment on above: Performed By: #### C BC, HEPATIC, BMP, LIPASE #### [facility] [address] [place] [address] [place] Calcium [Mass/Vol] 8.4 mg/dL Low 8.6-10.3 The [facility] Comment on above: Performed By: #### C BC, HEPATIC, BMP, LIPASE #### [facility] [address] [place] [id number] [place] Chloride [Moles/Vol] 107 mmol/L Normal 98-107 The [facility] Comment on above: Performed By: #### C BC, HEPATIC, BMP, LIPASE #### [facility] [address] [place] [id number] [place] CO2 [Moles/Vol] 24.8 mmol/L Normal 21.0-31.0 The [facility] Comment on above: Performed By: #### C BC, HEPATIC, BMP, LIPASE #### [facility] [address] [place] [address] [place] Creatinine [Mass/Vol] 0.56 mg/dL Low 0.60-1.20 The [facility] Comment on above: Performed By: #### C BC, HEPATIC, BMP, LIPASE #### [facility] [address] [place] [address] [place] Creatinine Clr Calc Pharmacy 136.70 Normal The [facility] Comment on above: Performed By: #### C BC, HEPATIC, BMP, LIPASE #### [facility] [address] [place] [address] [place] GFR/1.73 sq M.predicted MDRD (S/P/Bld) [Vol rate/Area] mL/min/{1.73_m2} Normal The [facility] Comment on above: Performed By: #### C BC, HEPATIC, BMP, LIPASE #### [address] Glucose [Mass/Vol] 75 mg/dL Normal 70-100 [facility] Comment on above: Result Comment: [facility] Glucose Reference Range is dependent on time and content of last meal. Glucose of more than 200 mg/dL in a nonstressed, ambulatory subject supports the diagnosis of Diabetes Mellitus. ADA recommended reference range Performed By: #### C BC, HEPATIC, BMP, LIPASE #### [address] Potassium [Moles/Vol] 3.7 mmol/L Normal 3.5-5.1 The [facility] Comment on above: Performed By: #### C BC, HEPATIC, BMP, LIPASE #### [facility] [address] [place] [address] [place] Sodium [Moles/Vol] 136 mmol/L Normal 136-145 [facility] Comment on above: Performed By: #### C BC, HEPATIC, BMP, LIPASE #### [facility] [address] Urea nitrogen [Mass/Vol] 6 mg/dL Low 7-25 The [facility] Comment on above: Performed By: #### C BC, HEPATIC, BMP, LIPASE #### [facility] [address] [place] [id number] [facility] Basophils Auto (Bld) [#/Vol] Ordered By: Malcolm Gaston on 02-10-2025 Basophils (Bld) [#/Vol] Automated basoph il count 0.0-0.2 [facility] Basophils/100 WBC Auto (Bld) Ordered By: Malcolm Gaston on 02-10-2025 Basophils/100 WBC (Bld) Automated basophil % . [facility] Bilirubin Test strip Ql (U)O rdered By: Malcolm Gaston on 02-10-2025 Bilirubin Ql (U) Bilirubin.total [Presence] in Urine by Test strip Negative [facility] Bilirubin.direct [Mass/volum e] in Serum or PlasmaOrdered By: Malcolm Gaston on 02-10-2025 Bilirubin.direct [Mass/Vol] Bilirubin.direct [Mass/volume] in Serum or Plasma 0.03-0.18 [facility] Bilirubin.total [Mass/volume ] in Serum or PlasmaOrdered By: Malcolm Gaston on 02-10-2025 Bilirubin [Mass/Vol] Bilirubin.total [Mass/volume] in Serum or Plasma 0.3-1.0 [facility] Calcium [Mass/volume] in Ser um or PlasmaOrdered By: Malcolm Gaston on 02-10-2025 Calcium [Mass/Vol] Calcium [Mass/volume] in Serum or Plasma Low 8.6-10.3 [facility] Carbon dioxide, total [Moles /volume] in Serum or PlasmaOrdered By: Malcolm Gaston on 02-10-2025 CO2 [Moles/Vol] Carbon dioxide, total [Moles/volume] in Serum or Plasma 21.0-31.0 [facility] Chloride [Moles/volume] in S mehdi or PlasmaOrdered By: Malcolm Gaston on 02-10-2025 Chloride [Moles/Vol] Chloride [Moles/volume] in Serum or Plasma 98-107 [facility] Color Auto (U)Ordered By: Fang Gaston on 02-10-2025 Color (U) Color of Urine by Auto Yellow [facility] Complete Blood Count Auto Di ffon 02-10-2025 Basophils (Bld) [#/Vol] 0.0 10*3/uL Normal 0.0-0.2 The [facility] Comment on above: Result Comment: PERF ORMED BY: [place] [address] PATHOLOGIST FLANGING OPERATOR BRANDI GONZALEZ M.D. Performed By: #### C BC, HEPATIC, BMP, LIPASE #### [address] Basophils/100 WBC (Bld) 0.5 % Normal . [facility] Comment on above: Performed By: #### C BC, HEPATIC, BMP, LIPASE #### [address] Eosinophils (Bld) [#/Vol] 0.2 10*3/uL Normal 0.0-0.45 The [facility] Comment on above: Performed By: #### C BC, HEPATIC, BMP, LIPASE #### [address] Eosinophils/100 WBC (Bld) 3.8 % Normal . The [facility] Comment on above: Performed By: #### C BC, HEPATIC, BMP, LIPASE #### [address] Erythrocyte distribution width (RBC) [Ratio] 13.1 % Normal 11.9-15.3 The [facility] Comment on above: Performed By: #### C BC, HEPATIC, BMP, LIPASE #### [address] Hematocrit (Bld) [Volume fraction] 32.0 % Low 34.0-46.4 The [facility] Comment on above: Performed By: #### C BC, HEPATIC, BMP, LIPASE #### [address] Hemoglobin (Bld) [Mass/Vol] 11.3 g/dL Low 11.8-15.4 The [facility] Comment on above: Performed By: #### C BC, HEPATIC, BMP, LIPASE #### [address] Lymphocytes (Bld) [#/Vol] 0.9 10*3/uL Low 1.00-4.8 The [facility] Comment on above: Performed By: #### C BC, HEPATIC, BMP, LIPASE #### [address] Lymphocytes/100 WBC (Bld) 16.5 % Normal . [facility] Comment on above: Performed By: #### C BC, HEPATIC, BMP, LIPASE #### [address] MCH (RBC) [Entitic mass] 33.9 pg Normal 24.7-34.3 The [facility] Comment on above: Performed By: #### C BC, HEPATIC, BMP, LIPASE #### [address] MCV (RBC) [Entitic vol] 95.5 fL Normal 80-100 [facility] Comment on above: Performed By: #### C BC, HEPATIC, BMP, LIPASE #### [address] Mean Corpuscular HGB Conc 35.5 g/dL High 32.0-35.0 The [facility] Comment on above: Performed By: #### C BC, HEPATIC, BMP, LIPASE #### [address] Monocytes (Bld) [#/Vol] 0.4 10*3/uL Normal 0.0-0.8 The [facility] Comment on above: Performed By: #### C BC, HEPATIC, BMP, LIPASE #### [address] Monocytes/100 WBC (Bld) 20.48 % High 0.00-20.00 [facility] Comment on above: Result Comment: For adults in ED, MDW > 20.0 may be associated with a higher risk of sepsis during the first 12 hrs of hospital admission Performed By: #### C BC, HEPATIC, BMP, LIPASE #### [address] Monocytes/100 WBC (Bld) 7.7 % Normal . T abby [facility] Comment on above: Performed By: #### C BC, HEPATIC, BMP, LIPASE #### [address] Neutrophils (Bld) [#/Vol] 3.7 10*3/uL Normal 1.8-7.7 The [facility] Comment on above: Performed By: #### C BC, HEPATIC, BMP, LIPASE #### [address] Neutrophils/100 WBC (Bld) 71.5 % Normal . The [facility] Comment on above: Performed By: #### C BC, HEPATIC, BMP, LIPASE #### [address] NRBC% 0.0 /100{WBC} Normal 0-0.5 The [facility] Comment on above: Performed By: #### C BC, HEPATIC, BMP, LIPASE #### [address] Platelet mean volume (Bld) [Entitic vol] 7.9 fL Normal 6.3-10.7 The [facility] Comment on above: Performed By: #### C BC, HEPATIC, BMP, LIPASE #### [address] Platelets (Bld) [#/Vol] 203 10*3/uL Normal 150-450 [facility] Comment on above: Performed By: #### C BC, HEPATIC, BMP, LIPASE #### [address] RBC (Bld) [#/Vol] 3.35 10*6/uL Low 3.60-5.00 [facility] Comment on above: Performed By: #### C BC, HEPATIC, BMP, LIPASE #### [address] WBC (Bld) [#/Vol] 5.2 10*3/uL Normal 3.8-11.6 The [facility] Comment on above: Performed By: #### C BC, HEPATIC, BMP, LIPASE #### [facility] [facility] [address] Creatinine [Mass/volume] in Serum or PlasmaOrdered By: Malcolm Gaston on 02-10-2025 Creatinine [Mass/Vol] Creatinine [Mass/volume] in Serum or Plasma Low 0.60-1.20 [facility] Dipstick and Microscopicon 0 02-10-2025 Appearance (U) Clear Normal Clear [facility] Comment on above: Order Comment: Name Collection Type:: Clean-Voided Midstream Performed By: #### C BC, HEPATIC, BMP, LIPASE #### [facility] [address] Bacteria,Urine Rare Normal None Seen [facility] Comment on above: Order Comment: Name Collection Type:: Clean-Voided Midstream Performed By: #### C BC, HEPATIC, BMP, LIPASE #### [facility] [address] Bilirubin,Urine Negative Normal Negative [facility] Comment on above: Order Comment: Name Collection Type:: Clean-Voided Midstream Performed By: #### C BC, HEPATIC, BMP, LIPASE #### [facility] [address] Color (U) Light-Yellow Normal Yellow [facility] Comment on above: Order Comment: Name Collection Type:: Clean-Voided Midstream Performed By: #### C BC, HEPATIC, BMP, LIPASE #### [facility] [address] Glucose Ql (U) Normal Normal Normal [facility] Comment on above: Order Comment: Name Collection Type:: Clean-Voided Midstream Performed By: #### C BC, HEPATIC, BMP, LIPASE #### [facility] [address] [place] [address] [place] Hyaline Casts,Urine None Normal 0-8 [facility] Comment on above: Order Comment: Name Collection Type:: Clean-Voided Midstream Performed By: #### C BC, HEPATIC, BMP, LIPASE #### [facility] [address] Ketones Ql (U) 1+ High Negative [facility] Comment on above: Order Comment: Name Collection Type:: Clean-Voided Midstream Performed By: #### C BC, HEPATIC, BMP, LIPASE #### [facility] [address] Leukocyte esterase Test strip Ql (U) 2+ High Negative [facility] Comment on above: Order Comment: Name Collection Type:: Clean-Voided Midstream Performed By: #### C BC, HEPATIC, BMP, LIPASE #### [facility] [address] Mucus,Urine 2+ Critically abnormal [facility] Comment on above: Order Comment: Name Collection Type:: Clean-Voided Midstream Result Comment: PERF ORMED BY: [place] [address] PATHOLOGIST FLANGING OPERATOR BRANDI GONZALEZ M.D. Performed By: #### C BC, HEPATIC, BMP, LIPASE #### [address] Nitrite,Urine Negative Normal Negative [facility] Comment on above: Order Comment: Name Collection Type:: Clean-Voided Midstream Performed By: #### C BC, HEPATIC, BMP, LIPASE #### [address] Occult Blood,Urine Negative Normal Negative [facility] Comment on above: Order Comment: Name Collection Type:: Clean-Voided Midstream Result Comment: PERF ORMED BY: [place] [address] PATHOLOGIST FLANGING OPERATOR BRANDI GONZALEZ M.D. Performed By: #### C BC, HEPATIC, BMP, LIPASE #### [place] [address] [place] pH (U) 6.5 [pH] Normal 5.0-9.0 [facility] Comment on above: Order Comment: Name Collection Type:: Clean-Voided Midstream Performed By: #### C BC, HEPATIC, BMP, LIPASE #### [facility] [address] Protein,Urine Negative Normal Negative [facility] Comment on above: Order Comment: Name Collection Type:: Clean-Voided Midstream Performed By: #### C BC, HEPATIC, BMP, LIPASE #### [address] RBC,Urine 1-2 Normal 0-4 [facility] Comment on above: Order Comment: Name Collection Type:: Clean-Voided Midstream Performed By: #### C BC, HEPATIC, BMP, LIPASE #### [address] Specificy [place],Urine 1.018 Normal 1.001-1.030 [facility] Comment on above: Order Comment: Name Collection Type:: Clean-Voided Midstream Performed By: #### C BC, HEPATIC, BMP, LIPASE #### [address] Squamous Epithelial Cell,Urine 5-9 High 0-2 [facility] Comment on above: Order Comment: Name Collection Type:: Clean-Voided Midstream Performed By: #### C BC, HEPATIC, BMP, LIPASE #### [address] Urobilinogen,Urine Normal Normal Normal [facility] Comment on above: Order Comment: Name Collection Type:: Clean-Voided Midstream Performed By: #### C BC, HEPATIC, BMP, LIPASE #### [address] WBC,Urine 3-4 Normal 0-4 [facility] Comment on above: Order Comment: Name Collection Type:: Clean-Voided Midstream Performed By: #### C BC, HEPATIC, BMP, LIPASE #### [place] [address] [place] Eosinophils Auto (Bld) [#/Vo l]Ordered By: Malcolm Gaston on 02-10-2025 Eosinophils (Bld) [#/Vol] Automated eosinophil count 0.0-0.45 [facility] Eosinophils/100 WBC Auto (Bl d)Ordered By: Malcolm Gaston on 02-10-2025 Eosinophils/100 WBC (Bld) Automated eosinophil % . [facility] Erythrocyte distribution wid th Auto (RBC) [Ratio]Ordered By: Malcolm Gaston on 02-10-2025 Erythrocyte distribution width (RBC) [Ratio] Erythrocyte distribution width [Ratio] by Automated count 11.9-15.3 [facility] Globulin Calc (S) [Mass/Vol] Ordered By: Malcolm Gaston on 02-10-2025 Globulin (S) [Mass/Vol] Serum globulin measurement by calculation (mass/volume) [facility] Glucose [Mass/volume] in Ser um or PlasmaOrdered By: Malcolm Gaston on 02-10-2025 Glucose [Mass/Vol] Glucose [Mass/volume] in Serum or Plasma 70-100 [facility] Comment on above: ADA recommended refe [...] [Mass/volume] in Urine by Test strip Normal [facility] Hematocrit Auto (Bld) [Volum e fraction]Ordered By: Malcolm Gaston on 02-10-2025 Hematocrit (Bld) [Volume fraction] Hematocrit [Volume Fraction] of Blood by Automated count Low 34.0-46.4 [facility] Hemoglobin Test strip Ql (U) Ordered By: Malcolm Gaston on 02-10-2025 Hemoglobin Ql (U) Hemoglobin [Presence] in Urine by Test strip Negative [facility] Hemoglobin [Mass/volume] in BloodOrdered By: Malcolm Gaston on 02-10-2025 Hemoglobin (Bld) [Mass/Vol] Hemoglobin [Mass/volume] in Blood Low 11.8-15.4 [facility] Hepatic Panelon 02-10-2025 Albumin [Mass/Vol] 3.6 g/dL Normal 3.5-5.7 [facility] Comment on above: Performed By: #### C BC, HEPATIC, BMP, LIPASE #### [address] Albumin/Globulin [Mass ratio] 1.4 {ratio} Normal [facility] Comment on above: Performed By: #### C BC, HEPATIC, BMP, LIPASE #### [facility] [address] ALP [Catalytic activity/Vol] 74 U/L Normal 34-104 [facility] Comment on above: Performed By: #### C BC, HEPATIC, BMP, LIPASE #### [address] ALT [Catalytic activity/Vol] 13 U/L Normal 7-52 [facility] Comment on above: Performed By: #### C BC, HEPATIC, BMP, LIPASE #### [address] AST [Catalytic activity/Vol] 17 U/L Normal 13-39 [facility] Comment on above: Performed By: #### C BC, HEPATIC, BMP, LIPASE #### [address] Bilirubin [Mass/Vol] 0.4 mg/dL Normal 0.3-1.0 [facility] Comment on above: Performed By: #### C BC, HEPATIC, BMP, LIPASE #### [address] Bilirubin,Indirect 0.3 mg/dL Normal [facility] Comment on above: Performed By: #### C BC, HEPATIC, BMP, LIPASE #### [address] Bilirubin.indirect [Mass/Vol] 0.10 mg/dL Normal 0.03-0.18 [facility] Comment on above: Performed By: #### C BC, HEPATIC, BMP, LIPASE #### [address] Globulin (S) [Mass/Vol] 2.6 g/dL Normal T he [facility] Comment on above: Performed By: #### C BC, HEPATIC, BMP, LIPASE #### [address] [place] [address] [place] Protein [Mass/Vol] 6.2 g/dL Low 6.4-8.9 [facility] Comment on above: Performed By: #### C BC, HEPATIC, BMP, LIPASE #### [address] Ketones Test strip Ql (U)Ord ered By: Malcolm Gaston on 02-10-2025 Ketones Ql (U) Ketones [Presence] in Urine by Test strip High Negative [facility] Leukocyte esterase [Presence ] in Urine by Test stripOrdered By: Malcolm Gaston on 02-10-2025 Leukocyte esterase Test strip Ql (U) Leukocyte esterase [Presence] in Urine by Test strip High Negative [facility] Leukocytes [#/volume] correc ira for nucleated erythrocytes in Blood by Automated counOrdered By: Malcolm Gaston on 02-10-2025 WBC corrected for nucl RBC Auto (Bld) [#/Vol] Leukocytes [#/volume] corrected for nucleated erythrocytes in Blood by Automated coun 3.8-11.6 [facility] Lipaseon 02-10-2025 Lipase [Catalytic activity/Vol] 21.0 U/L Normal 11.0-82.0 [facility] Comment on above: Result Comment: PERF ORMED BY: [place] [address] PATHOLOGIST FLANGING OPERATOR BRANDI GONZALEZ M.D. Performed By: #### C BC, HEPATIC, BMP, LIPASE #### [address] Lipase [Enzymatic activity/v olume] in Serum or PlasmaOrdered By: Malcolm Gaston on 02-10-2025 Lipase [Catalytic activity/Vol] Lipase [Enzymatic activity/volume] in Serum or Plasma 11.0-82.0 [facility] Lymphocytes Auto (Bld) [#/Vo l]Ordered By: Malcolm Gaston on 02-10-2025 Lymphocytes (Bld) [#/Vol] Lymphocytes [#/volume] in Blood by Automated count Low 1.00-4.8 [facility] Lymphocytes/100 WBC Auto (Bl d)Ordered By: Malcolm Gaston on 02-10-2025 Lymphocytes/100 WBC (Bld) Lymphocytes/100 leukocytes in Blood by Automated count . [facility] MCH Auto (RBC) [Entitic mass ]Ordered By: Malcolm Gaston on 02-10-2025 MCH (RBC) [Entitic mass] MCH [Entitic mass] by Automated count 24.7-34.3 [facility] MCHC Auto (RBC) [Mass/Vol]Or dered By: Malcolm Gaston on 02-10-2025 MCHC (RBC) [Mass/Vol] MCHC [Mass/volume] by Automated count High 32.0-35.0 [facility] MCV Auto (RBC) [Entitic vol] Ordered By: Malcolm Gaston on 02-10-2025 MCV (RBC) [Entitic vol] MCV [Entitic vol ume] by Automated count 80-100 [facility] Monocyte distribution width [Entitic volume] in Blood by AutomatedOrdered By: Malcolm Gaston on 02-10-2025 Monocyte distribution width Auto (Bld) [Entitic vol] Monocyte distribution width [Entitic volume] in Blood by Automated High 0.00-20.00 [facility] Comment on above: For adults in ED, MD W > 20.0 may be associated with a higher risk of sepsis during the first 12 hrs of hospital admission Monocytes Auto (Bld) [#/Vol] Ordered By: Malcolm Gaston on 02-10-2025 Monocytes (Bld) [#/Vol] Automated blood monocyte count 0.0-0.8 [facility] Monocytes/100 WBC Auto (Bld) Ordered By: Malcolm Gaston on 02-10-2025 Monocytes/100 WBC (Bld) Automated monocyte % . [facility] Neutrophils Auto (Bld) [#/Vo l]Ordered By: Malcolm Gaston on 02-10-2025 Neutrophils (Bld) [#/Vol] Neutrophils [#/volume] in Blood by Automated count 1.8-7.7 [facility] Neutrophils/100 WBC Auto (Bl d)Ordered By: Malcolm Gaston on 02-10-2025 Neutrophils/100 WBC (Bld) Automated neutrophil % . [facility] Nitrite Test strip Ql (U)Ord ered By: Malcolm Gaston on 02-10-2025 Nitrite Ql (U) Nitrite [Presence] in Urine by Test strip Negative [facility] No Panel InformationOrdered By: Malcolm Gaston on 02-10-2025 Estimated GFR (CKD-EPI) > 60.0 mL/Min [facility] Creatinine Clearance (Chem 136.70 [facility] Nucleated erythrocytes [Pres ence] in Blood by Automated countOrdered By: Malcolm Gaston on 02-10-2025 Nucleated RBC Auto Ql (Bld) Nucleated erythrocytes [Presence] in Blood by Automated count 0-0.5 [facility] Platelet mean volume Auto (B ld) [Entitic vol]Ordered By: Malcolm Gaston on 02-10-2025 Platelet mean volume (Bld) [Entitic vol] Platelet mean volume [Entitic volume] in Blood by Automated count 6.3-10.7 [facility] Platelets Auto (Bld) [#/Vol] Ordered By: Malcolm Gaston on 02-10-2025 Platelets (Bld) [#/Vol] Platelets [#/vol ume] in Blood by Automated count 150-450 [facility] Potassium [Moles/volume] in Serum or PlasmaOrdered By: Malcolm Gaston on 02-10-2025 Potassium [Moles/Vol] Potassium [Moles/volume] in Serum or Plasma 3.5-5.1 [facility] Protein Test strip (U) [Mass /Vol]Ordered By: Malcolm Gaston on 02-10-2025 Protein (U) [Mass/Vol] Protein [Mass/volume] in Urine by Test strip Negative [facility] Protein [Mass/volume] in Ser um or PlasmaOrdered By: Malcolm Gaston on 02-10-2025 Protein [Mass/Vol] Protein [Mass/volume] in Serum or Plasma Low 6.4-8.9 [facility] RBC Auto (Bld) [#/Vol]Ordere d By: Malcolm Gaston on 02-10-2025 RBC (Bld) [#/Vol] Erythrocytes [#/volume] in Blood by Automated count Low 3.60-5.00 [facility] Serum or plasma albumin/glob ulin mass ratioOrdered By: Malcolm Gaston on 02-10-2025 Albumin/Globulin [Mass ratio] Serum or plasma albumin/globulin mass ratio [facility] Serum or plasma anion gap de terminationOrdered By: Malcolm Gaston on 02-10-2025 Anion gap [Moles/Vol] Serum or plasma anion gap determination 6.0-15.0 [facility] Serum or plasma non-glucuron idated bilirubin measurement (mass/volume)Ordered By: Malcolm Gaston on 02-10-2025 Bilirubin.indirect [Mass/Vol] Serum or plasma non-glucuronidated bilirubin measurement (mass/volume) [facility] Sodium [Moles/volume] in Ser um or PlasmaOrdered By: Malcolm Gaston on 02-10-2025 Sodium [Moles/Vol] Sodium [Moles/volume] in Serum or Plasma 136-145 [facility] Specific gravity Test strip (U) [Rel density]Ordered By: Malcolm Gaston on 02-10-2025 Specific gravity (U) [Rel density] Specific gravity of Urine by Test strip 1.001-1.030 [facility] Urea nitrogen [Mass/volume] in Serum or PlasmaOrdered By: Malcolm Gaston on 02-10-2025 Urea nitrogen [Mass/Vol] Urea nitrogen [Mass/volume] in Serum or Plasma Low 7-25 [facility] Urobilinogen Test strip (U) [Mass/Vol]Ordered By: Malcolm Gaston on 02-10-2025 Urobilinogen (U) [Mass/Vol] Urobilinogen [Mass/volume] in Urine by Test strip Normal [facility] WBC Auto (Bld) [#/Vol]Ordere d By: Malcolm Gaston on 02-10-2025 WBC (Bld) [#/Vol] Leukocytes [#/volume] in Blood by Automated count 3.8-11.6 [facility] pH Test strip (U)Ordered By: Malcolm Gaston on 02-10-2025 pH (U) pH of Urine by Test strip 5.0-9.0 [facility] Urinalysis macro (dipstick) panel (U)on 01-31-2025 Bilirubin, UA Negative Negative - 4(70) +++ mg/dL [facility] Blood, UA Negative Negative - 50 Brent/mcL [facility] Clarity, UA Clear [facility] Color, UA Yellow [facility] Glucose, UA Negative Negative - 1999(110) ++++ mg/dL [facility] Interpretation and review of laboratory results Abnormal [facility] Ketones, UA Negative Negative - 160(16) ++++ mg/dL [facility] Leukocytes, UA Positive Negative - 500+++ Kae/mcL [facility] Comment on above: small Nitrite, UA Negative Negative - Positive [facility] pH, UA 6 5 - 9 [facility] Protein, UA Negative Negative - 1999(20) ++++ mg/dL [facility] Spec Grav, UA 1.02 1 - 1.03 [facility] Urobilinogen, UA 0.2 0.2 - 12 mg/dL [facility] US OB 14+ WEEKS ANATOMY SCAN on [...] II, MD, PHD at 28-Dec-2024 09:45:37 PM [facility] Normal Not Available Comment on above: Order Comment: US OB ANATOMY SINGLE W US OB CERVICAL LENGTH Estimated Date of Delivery: 05/12/25 Gestational Age as of 11/30/2024: 16w5d Urinalysis macro (dipstick) panel (U)on 12-28-2024 Bilirubin, UA Negative Negative - 4(70) +++ mg/dL [facility] Blood, UA Positive Negative - 50 Brent/mcL [facility] Comment on above: trace Clarity, UA Clear [facility] Color, UA Yellow [facility] Glucose, UA Negative Negative - 2000(110) ++++ mg/dL [facility] Interpretation and review of laboratory results Abnormal [facility] Ketones, UA Negative Negative - 160(16) ++++ mg/dL [facility] Leukocytes, UA Negative Negative - 500+++ Kae/mcL [facility] Nitrite, UA Negative Negative - Positive [facility] pH, UA 6 5 - 9 [facility] Protein, UA Negative Negative - 2000(20) ++++ mg/dL [facility] Spec Grav, UA 1.015 1 - 1.03 [facility] Urobilinogen, UA 0.2 0.2 - 12 mg/dL [facility] IGP,APTIMA HPV,AGE GDLNon AGE GDLN ACOG TESTING Note . [facility] Comment on above: TESTS RESULT FLAG UN ITS REF RANGE LAB Clinician Provided Cytology Information Source.............Cervix;Endocervix No. of containers..01 ThinPrep Vial Age Kelsey NICE Katerin... FLAG LEGEND: L-Low Normal,H-High Normal,LL-Alert Low,HH-Alert High <-Panic Low,>-Panic High,A-Abnormal,AA-Critical Abnormal Performed at: 01 =[address] [id number] Shea Yun MD, HPV APTIMA Negative Negative [facility] Comment on above: This nucleic acid am plification test detects fourteen high- risk HPV types (16,18,31,33,35,39,45,51,52,56,58,59,66,68) without differentiation. Performed at: =[address] [id number] Substation Manager: Shea Yun MD, Phone: [phone] Performed at: [address] [id number] Substation Manager: Shea Yun MD, Phone: [phone] IGP, APTIMA HPV, RFX 16/18,45 Note . [facility] Comment on above: TESTS RESULT FLAG UN ITS REF RANGE LAB DIAGNOSIS: 02 NEGATIVE FOR INTRAEPITHELIAL LESION OR MALIGNANCY. FUNGAL ORGANISMS MORPHOLOGICALLY CONSISTENT WITH TIGIST SPECIES ARE PRESENT. THIS SPECIMEN WAS RESCREENED PART OF OUR INVOICING MACHINE OPERATOR PROGRAM. Specimen adequacy: 02 Satisfactory for evaluation. No endocervical component is identified. Performed by: 02 Page Gonzalez Crew Leader QC reviewed by: 02 Malcom Gonzalez, Crew Leader ([facility]) . 02 Note: Note 02 The Pap [...] <-Panic Low,>-Panic High,A-Abnormal,AA-Critical Abnormal Performed at: [address] [address] Shea Yun MD, BRUSH-SPATULA CERVIX ENDOCERVIX [facility] Urinalysis macro (dipstick) panel (U)on 11-30-2024 Bilirubin, UA Negative Negative - 4(70) +++ mg/dL [facility] Blood, UA Positive Negative - 50 Brent/mcL [facility] Comment on above: Trace-Intact Clarity, UA Clear [facility] Color, UA Yellow [facility] Glucose, UA Negative Negative - 2000(110) ++++ mg/dL [facility] Interpretation and review of laboratory results Abnormal [facility] Ketones, UA Negative Negative - 160(16) ++++ mg/dL [facility] Leukocytes, UA Trace Negative - 500+++ Kae/mcL [facility] Nitrite, UA Negative Negative - Positive [facility] pH, UA 7 5 - 9 [facility] Protein, UA Negative Negative - 1999(20) ++++ mg/dL [facility] Spec Grav, UA 1.015 1 - 1.03 [facility] Urobilinogen, UA 0.2 0.2 - 12 mg/dL [facility] Urinalysis macro (dipstick) panel (U)on 11-02-2024 Bilirubin, UA Negative Negative - 4(70) +++ mg/dL [facility] Blood, UA Negative Negative - 50 Brent/mcL [facility] Clarity, UA Clear [facility] Color, UA Yellow [facility] Glucose, UA Negative Negative - 1999(110) ++++ mg/dL [facility] Interpretation and review of laboratory results Normal [facility] Ketones, UA Negative Negative - 160(16) ++++ mg/dL [facility] Leukocytes, UA Negative Negative - 500+++ Kae/mcL [facility] Nitrite, UA Negative Negative - Positive [facility] pH, UA 7 5 - 9 [facility] Protein, UA Negative Negative - 1999(20) ++++ mg/dL [facility] Spec Grav, UA 1.02 1 - 1.03 [facility] Urobilinogen, UA 0.2 0.2 - 12 mg/dL [facility] Alanine aminotransferase [En zymatic activity/volume] in Serum or PlasmaOrdered By: Ale Fragoso on 10-26-2024 ALT [Catalytic activity/Vol] Alanine aminotransferase [Enzymatic activity/volume] in Serum or Plasma 7-52 [facility] Albumin [Mass/volume] in Ser um or Plasma by Bromocresol green (BCG) dye binding methoOrdered By: Ale Fragoso on 10-26-2024 Albumin BCG dye [Mass/Vol] Albumin [Mass/volume] in Serum or Plasma by Bromocresol green (BCG) dye binding metho 3.5-5.7 [facility] Alkaline phosphatase [Enzyma tic activity/volume] in Serum or PlasmaOrdered By: Ale Fragoso on 10-26-2024 ALP [Catalytic activity/Vol] Alkaline phosphatase [Enzymatic activity/volume] in Serum or Plasma 34-104 [facility] Appearance of UrineOrdered B y: Ale Fragoso on 10-26-2024 Appearance (U) Urine appearance Clear [facility] Aspartate aminotransferase [ Enzymatic activity/volume] in Serum or PlasmaOrdered By: Ale Fragoso on 10-26-2024 AST [Catalytic activity/Vol] Aspartate aminotransferase [Enzymatic activity/volume] in Serum or Plasma 13-39 [facility] Basophils Auto (Bld) [#/Vol] Ordered By: Ale Fragoso on 10-26-2024 Basophils (Bld) [#/Vol] Automated basoph il count 0.0-0.2 [facility] Basophils/100 WBC Auto (Bld) Ordered By: Ale Fragoso on 10-26-2024 Basophils/100 WBC (Bld) Automated basophil % . [facility] Bilirubin Test strip Ql (U)O rdered By: Ale Fragoso on 10-26-2024 Bilirubin Ql (U) Bilirubin.total [Presence] in Urine by Test strip Negative [facility] Bilirubin.total [Mass/volume ] in Serum or PlasmaOrdered By: Ale Fragoso on 10-26-2024 Bilirubin [Mass/Vol] Bilirubin.total [Mass/volume] in Serum or Plasma 0.3-1.0 [facility] Calcium [Mass/volume] in Ser um or PlasmaOrdered By: Ale Fragoso on 10-26-2024 Calcium [Mass/Vol] Calcium [Mass/volume] in Serum or Plasma Low 8.6-10.3 [facility] Carbon dioxide, total [Moles /volume] in Serum or PlasmaOrdered By: Ale Fragoso on 10-26-2024 CO2 [Moles/Vol] Carbon dioxide, total [Moles/volume] in Serum or Plasma 21.0-31.0 [facility] Chloride [Moles/volume] in S mehdi or PlasmaOrdered By: Ale Fragoso on 10-26-2024 Chloride [Moles/Vol] Chloride [Moles/volume] in Serum or Plasma 98-107 [facility] Color Auto (U)Ordered By: Toribio Fragoso on 10-26-2024 Color (U) Color of Urine by Auto Yellow [facility] Complete Blood Count Auto Di ffon 10-26-2024 Basophils (Bld) [#/Vol] 0.0 10*3/uL Normal 0.0-0.2 [facility] Comment on above: Result Comment: PERF ORMED BY: [place] [address] PATHOLOGIST FLANGING OPERATOR BRANDI GONZALEZ M.D. Performed By: #### C BC, HEPATIC, BMP, LIPASE #### [address] Basophils/100 WBC (Bld) 0.6 % Normal . T abby [facility] Comment on above: Performed By: #### C BC, HEPATIC, BMP, LIPASE #### [address] Eosinophils (Bld) [#/Vol] 0.3 10*3/uL Normal 0.0-0.45 [facility] Comment on above: Performed By: #### C BC, HEPATIC, BMP, LIPASE #### [address] Eosinophils/100 WBC (Bld) 5.6 % Normal . [facility] Comment on above: Performed By: #### C BC, HEPATIC, BMP, LIPASE #### [address] Erythrocyte distribution width (RBC) [Ratio] 13.6 % Normal 11.9-15.3 [facility] Comment on above: Performed By: #### C BC, HEPATIC, BMP, LIPASE #### [address] Hematocrit (Bld) [Volume fraction] 35.6 % Normal 34.0-46.4 [facility] Comment on above: Performed By: #### C BC, HEPATIC, BMP, LIPASE #### [address] Hemoglobin (Bld) [Mass/Vol] 12.3 g/dL Normal 11.8-15.4 [facility] Comment on above: Performed By: #### C BC, HEPATIC, BMP, LIPASE #### [address] Lymphocytes (Bld) [#/Vol] 0.8 10*3/uL Low 1.00-4.8 [facility] Comment on above: Performed By: #### C BC, HEPATIC, BMP, LIPASE #### [address] Lymphocytes/100 WBC (Bld) 18.1 % Normal . [facility] Comment on above: Performed By: #### C BC, HEPATIC, BMP, LIPASE #### [address] MCH (RBC) [Entitic mass] 32.2 pg Normal 24.7-34.3 [facility] Comment on above: Performed By: #### C BC, HEPATIC, BMP, LIPASE #### [address] MCV (RBC) [Entitic vol] 92.9 fL Normal 80-100 [facility] Comment on above: Performed By: #### C BC, HEPATIC, BMP, LIPASE #### [address] Mean Corpuscular HGB Conc 34.6 g/dL Normal 32.0-35.0 [facility] Comment on above: Performed By: #### C BC, HEPATIC, BMP, LIPASE #### [address] Monocytes (Bld) [#/Vol] 0.4 10*3/uL Normal 0.0-0.8 [facility] Comment on above: Performed By: #### C BC, HEPATIC, BMP, LIPASE #### [place] [address] [place] Monocytes/100 WBC (Bld) 17.94 % Normal 0.00-20.00 [facility] Comment on above: Performed By: #### C BC, HEPATIC, BMP, LIPASE #### [address] Monocytes/100 WBC (Bld) 8.1 % Normal . T he [facility] Comment on above: Performed By: #### C BC, HEPATIC, BMP, LIPASE #### [address] Neutrophils (Bld) [#/Vol] 3.1 10*3/uL Normal 1.8-7.7 [facility] Comment on above: Performed By: #### C BC, HEPATIC, BMP, LIPASE #### [address] Neutrophils/100 WBC (Bld) 67.6 % Normal . [facility] Comment on above: Performed By: #### C BC, HEPATIC, BMP, LIPASE #### [address] NRBC% 0.1 /100{WBC} Normal 0-0.5 [facility] Comment on above: Performed By: #### C BC, HEPATIC, BMP, LIPASE #### [address] Platelet mean volume (Bld) [Entitic vol] 7.6 fL Normal 6.3-10.7 [facility] Comment on above: Performed By: #### C BC, HEPATIC, BMP, LIPASE #### [address] Platelets (Bld) [#/Vol] 194 10*3/uL Normal 150-450 [facility] Comment on above: Performed By: #### C BC, HEPATIC, BMP, LIPASE #### [address] RBC (Bld) [#/Vol] 3.83 10*6/uL Normal 3.60-5.00 [facility] Comment on above: Performed By: #### C BC, HEPATIC, BMP, LIPASE #### [address] WBC (Bld) [#/Vol] 4.6 10*3/uL Normal 3.8-11.6 [facility] Comment on above: Performed By: #### C BC, HEPATIC, BMP, LIPASE #### [facility] [address] Comprehensive Metabolic Pane al 10-26-2024 Albumin [Mass/Vol] 3.6 g/dL Normal 3.5-5.7 [facility] Comment on above: Performed By: #### C BC, HEPATIC, BMP, LIPASE #### [address] Albumin/Globulin [Mass ratio] 1.5 {ratio} Normal [facility] Comment on above: Performed By: #### C BC, HEPATIC, BMP, LIPASE #### [address] ALP [Catalytic activity/Vol] 42 U/L Normal 34-104 [facility] Comment on above: Performed By: #### C BC, HEPATIC, BMP, LIPASE #### [address] ALT [Catalytic activity/Vol] 13 U/L Normal 7-52 [facility] Comment on above: Performed By: #### C BC, HEPATIC, BMP, LIPASE #### [address] Anion gap [Moles/Vol] 7.3 mmol/L Normal 6.0-15.0 [facility] Comment on above: Performed By: #### C BC, HEPATIC, BMP, LIPASE #### [address] AST [Catalytic activity/Vol] 16 U/L Normal 13-39 [facility] Comment on above: Performed By: #### C BC, HEPATIC, BMP, LIPASE #### [place] [address] [place] Bilirubin [Mass/Vol] 0.3 mg/dL Normal 0.3-1.0 [facility] Comment on above: Performed By: #### C BC, HEPATIC, BMP, LIPASE #### [address] Calcium [Mass/Vol] 8.5 mg/dL Low 8.6-10.3 [facility] Comment on above: Performed By: #### C BC, HEPATIC, BMP, LIPASE #### [facility] [address] [place] [address] [place] Chloride [Moles/Vol] 106 mmol/L Normal 98-107 [facility] Comment on above: Performed By: #### C BC, HEPATIC, BMP, LIPASE #### [facility] [address] CO2 [Moles/Vol] 25.5 mmol/L Normal 21.0-31.0 [facility] Comment on above: Performed By: #### C BC, HEPATIC, BMP, LIPASE #### [facility] [address] Creatinine [Mass/Vol] 0.55 mg/dL Low 0.60-1.20 [facility] Comment on above: Performed By: #### C BC, HEPATIC, BMP, LIPASE #### [facility] [address] [place] [address] [place] Creatinine Clr Calc Pharmacy 121.47 Normal [facility] Comment on above: Performed By: #### C BC, HEPATIC, BMP, LIPASE #### [facility] [address] [place] [address] [place] GFR/1.73 sq M.predicted MDRD (S/P/Bld) [Vol rate/Area] mL/min/{1.73_m2} Normal [facility] Comment on above: Performed By: #### C BC, HEPATIC, BMP, LIPASE #### [facility] [address] [place] [address] [place] Globulin (S) [Mass/Vol] 2.4 g/dL Normal [facility] Comment on above: Performed By: #### C BC, HEPATIC, BMP, LIPASE #### [facility] [address] Glucose [Mass/Vol] 90 mg/dL Normal 70-100 [facility] Comment on above: Result Comment: [facility] Glucose Reference Range is dependent on time and content of last meal. Glucose of more than 200 mg/dL in a nonstressed, ambulatory subject supports the diagnosis of Diabetes Mellitus. ADA recommended reference range Performed By: #### C BC, HEPATIC, BMP, LIPASE #### [facility] [address] Potassium [Moles/Vol] 3.8 mmol/L Normal 3.5-5.1 [facility] Comment on above: Performed By: #### C BC, HEPATIC, BMP, LIPASE #### [facility] [address] Protein [Mass/Vol] 6.0 g/dL Low 6.4-8.9 [facility] Comment on above: Performed By: #### C BC, HEPATIC, BMP, LIPASE #### [facility] [address] Sodium [Moles/Vol] 135 mmol/L Low 136-145 [facility] Comment on above: Performed By: #### C BC, HEPATIC, BMP, LIPASE #### [facility] [address] Urea nitrogen [Mass/Vol] 9 mg/dL Normal 7-25 [facility] Comment on above: Performed By: #### C BC, HEPATIC, BMP, LIPASE #### [facility] [address] Creatinine [Mass/volume] in Serum or PlasmaOrdered By: Ale Fragoso on 10-26-2024 Creatinine [Mass/Vol] Creatinine [Mass/volume] in Serum or Plasma Low 0.60-1.20 [facility] Eosinophils Auto (Bld) [#/Vo l]Ordered By: Ale Fragoso on 10-26-2024 Eosinophils (Bld) [#/Vol] Automated eosinophil count 0.0-0.45 [facility] Eosinophils/100 WBC Auto (Bl d)Ordered By: Ale Fragoso on 10-26-2024 Eosinophils/100 WBC (Bld) Automated eosinophil % . [facility] Erythrocyte distribution wid th Auto (RBC) [Ratio]Ordered By: Ale Fragoso on 10-26-2024 Erythrocyte distribution width (RBC) [Ratio] Erythrocyte distribution width [Ratio] by Automated count 11.9-15.3 [facility] Globulin Calc (S) [Mass/Vol] Ordered By: Ale Fragoso on 10-26-2024 Globulin (S) [Mass/Vol] Serum globulin measurement by calculation (mass/volume) [facility] Glucose [Mass/volume] in Ser um or PlasmaOrdered By: Ale Fragoso on 10-26-2024 Glucose [Mass/Vol] Glucose [Mass/volume] in Serum or Plasma 70-100 [facility] Comment on above: ADA recommended refe [...] [Mass/volume] in Urine by Test strip Normal [facility] Hematocrit Auto (Bld) [Volum e fraction]Ordered By: Ale Fragoso on 10-26-2024 Hematocrit (Bld) [Volume fraction] Hematocrit [Volume Fraction] of Blood by Automated count 34.0-46.4 [facility] Hemoglobin Test strip Ql (U) Ordered By: Ale Fragoso on 10-26-2024 Hemoglobin Ql (U) Hemoglobin [Presence] in Urine by Test strip Negative [facility] Hemoglobin [Mass/volume] in BloodOrdered By: Ale Fragoso 10-26-2024 Hemoglobin (Bld) [Mass/Vol] Hemoglobin [Mass/volume] in Blood 11.8-15.4 [facility] Ketones Test strip Ql (U)Ord ered By: Ale Fragoso on 10-26-2024 Ketones Ql (U) Ketones [Presence] in Urine by Test strip Negative [facility] Leukocyte esterase [Presence ] in Urine by Test stripOrdered By: Ale Fragoso on 10-26-2024 Leukocyte esterase Test strip Ql (U) Leukocyte esterase [Presence] in Urine by Test strip Negative [facility] Leukocytes [#/volume] correc ira for nucleated erythrocytes in Blood by Automated counOrdered By: Ale Fragoso on 10-26-2024 WBC corrected for nucl RBC Auto (Bld) [#/Vol] Leukocytes [#/volume] corrected for nucleated erythrocytes in Blood by Automated coun 3.8-11.6 [facility] Lymphocytes Auto (Bld) [#/Vo l]Ordered By: Ale Fragoso on 10-26-2024 Lymphocytes (Bld) [#/Vol] Lymphocytes [#/volume] in Blood by Automated count Low 1.00-4.8 [facility] Lymphocytes/100 WBC Auto (Bl d)Ordered By: Ale Fragoso on 10-26-2024 Lymphocytes/100 WBC (Bld) Lymphocytes/100 leukocytes in Blood by Automated count . [facility] MCH Auto (RBC) [Entitic mass ]Ordered By: Ale Fragoso on 10-26-2024 MCH (RBC) [Entitic mass] MCH [Entitic mass] by Automated count 24.7-34.3 [facility] MCHC Auto (RBC) [Mass/Vol]Or dered By: Ale Fragoso on 10-26-2024 MCHC (RBC) [Mass/Vol] MCHC [Mass/volume] by Automated count 32.0-35.0 [facility] MCV Auto (RBC) [Entitic vol] Ordered By: Ale Fragoso on 10-26-2024 MCV (RBC) [Entitic vol] MCV [Entitic vol ume] by Automated count 80-100 [facility] Magnesiumon 10-26-2024 Magnesium [Mass/Vol] 1.9 mg/dL Normal 1.9-2.7 [facility] Comment on above: Result Comment: PERF ORMED BY: [place] [address] PATHOLOGIST FLANGING OPERATOR BRANDI GONZALEZ M.D. Performed By: #### C BC, HEPATIC, BMP, LIPASE #### [address] Magnesium [Mass/volume] in S mehdi or PlasmaOrdered By: Ale Fragoso on 10-26-2024 Magnesium [Mass/Vol] Magnesium [Mass/volume] in Serum or Plasma 1.9-2.7 [facility] Monocyte distribution width [Entitic volume] in Blood by AutomatedOrdered By: Ale Fragoso on 10-26-2024 Monocyte distribution width Auto (Bld) [Entitic vol] Monocyte distribution width [Entitic volume] in Blood by Automated 0.00-20.00 [facility] Monocytes Auto (Bld) [#/Vol] Ordered By: Ale Fragoso on 10-26-2024 Monocytes (Bld) [#/Vol] Automated blood monocyte count 0.0-0.8 [facility] Monocytes/100 WBC Auto (Bld) Ordered By: Ale Fragoso on 10-26-2024 Monocytes/100 WBC (Bld) Automated monocyte % . [facility] Neutrophils Auto (Bld) [#/Vo l]Ordered By: Ale Fragoso on 10-26-2024 Neutrophils (Bld) [#/Vol] Neutrophils [#/volume] in Blood by Automated count 1.8-7.7 [facility] Neutrophils/100 WBC Auto (Bl d)Ordered By: Ale Fragoso on 10-26-2024 Neutrophils/100 WBC (Bld) Automated neutrophil % . [facility] Nitrite Test strip Ql (U)Ord ered By: Ale Fragoso on 10-26-2024 Nitrite Ql (U) Nitrite [Presence] in Urine by Test strip Negative [facility] No Panel InformationOrdered By: Ale Fragoso on 10-26-2024 Estimated GFR (CKD-EPI) > 60.0 mL/Min [facility] Pharmacy Creatinine Clearance (Chem 121.47 [facility] Nucleated erythrocytes [Pres ence] in Blood by Automated countOrdered By: Ale Fragoso on 10-26-2024 Nucleated RBC Auto Ql (Bld) Nucleated erythrocytes [Presence] in Blood by Automated count 0-0.5 [facility] Platelet mean volume Auto (B ld) [Entitic vol]Ordered By: Ale Fragoso on 10-26-2024 Platelet mean volume (Bld) [Entitic vol] Platelet mean volume [Entitic volume] in Blood by Automated count 6.3-10.7 [facility] Platelets Auto (Bld) [#/Vol] Ordered By: Ale Fragoso on 10-26-2024 Platelets (Bld) [#/Vol] Platelets [#/vol ume] in Blood by Automated count 150-450 [facility] Potassium [Moles/volume] in Serum or PlasmaOrdered By: Ale Fragoso on 10-26-2024 Potassium [Moles/Vol] Potassium [Moles/volume] in Serum or Plasma 3.5-5.1 [facility] Protein Test strip (U) [Mass /Vol]Ordered By: Ale Fragoso on 10-26-2024 Protein (U) [Mass/Vol] Protein [Mass/volume] in Urine by Test strip Negative [facility] Protein [Mass/volume] in Ser um or PlasmaOrdered By: Ale Fragoso on 10-26-2024 Protein [Mass/Vol] Protein [Mass/volume] in Serum or Plasma Low 6.4-8.9 [facility] RBC Auto (Bld) [#/Vol]Ordere d By: Ale Fragoso on 10-26-2024 RBC (Bld) [#/Vol] Erythrocytes [#/volume] in Blood by Automated count 3.60-5.00 [facility] Serum or plasma albumin/glob ulin mass ratioOrdered By: Ale Fragoso on 10-26-2024 Albumin/Globulin [Mass ratio] Serum or plasma albumin/globulin mass ratio [facility] Serum or plasma anion gap de terminationOrdered By: Ale Fragoso on 10-26-2024 Anion gap [Moles/Vol] Serum or plasma anion gap determination 6.0-15.0 [facility] Sodium [Moles/volume] in Ser um or PlasmaOrdered By: Ale Fragoso on 10-26-2024 Sodium [Moles/Vol] Sodium [Moles/volume] in Serum or Plasma Low 136-145 [facility] Specific gravity Test strip (U) [Rel density]Ordered By: Ale Fragoso on 10-26-2024 Specific gravity (U) [Rel density] Specific gravity of Urine by Test strip 1.001-1.030 [facility] US renal RTon 10-26-2024 [place] [address] Ultrasound Report Signed Patient: Breana Casas MR#: [id number] : 1990 Acct:[id number] Age/Sex: 33 / F ADM Date: 10/26/24 Loc: ER Room: Type: [facility] ER Attending Dr: Ordering Provider: Ale Fragoso [...] Tanner Burleson M.D.10/26/2024 11:46 AM Dictation Location: [place] [address] Tech: Karmen Grayley Transcribed By: SHANE 10/26/24 1146 Dictated By: Tanner Burleson DO 10/26/24 1139 Signed By: 10/26/24 1146 Normal [facility] Urea nitrogen [Mass/volume] in Serum or PlasmaOrdered By: Ale Fragoso on 10-26-2024 Urea nitrogen [Mass/Vol] Urea nitrogen [Mass/volume] in Serum or Plasma 04-29 [facility] Urinalysison 10-26-2024 Appearance (U) Clear Normal Clear [facility] Comment on above: Order Comment: Name Collection Type:: Clean-Voided Midstream Performed By: #### U A #### [facility] [address] [place] [id number] [place] Bilirubin,Urine Negative Normal Negative [facility] Comment on above: Order Comment: Name Collection Type:: Clean-Voided Midstream Performed By: #### U A #### [facility] [address] [place] [id number] [place] Color (U) Light-Yellow Normal Yellow [facility] Comment on above: Order Comment: Name Collection Type:: Clean-Voided Midstream Performed By: #### U A #### [facility] [address] [place] [id number] [place] Glucose Ql (U) Normal Normal Normal [facility] Comment on above: Order Comment: Name Collection Type:: Clean-Voided Midstream Performed By: #### U A #### [address] Ketones Ql (U) Negative Normal Negative [facility] Comment on above: Order Comment: Name Collection Type:: Clean-Voided Midstream Performed By: #### U A #### [address] Leukocyte esterase Test strip Ql (U) Negative Normal Negative [facility] Comment on above: Order Comment: Name Collection Type:: Clean-Voided Midstream Performed By: #### U A #### [place] [address] [place] Nitrite,Urine Negative Normal Negative [facility] Comment on above: Order Comment: Name Collection Type:: Clean-Voided Midstream Performed By: #### U A #### [place] [address] [place] Occult Blood,Urine Negative Normal Negative [facility] Comment on above: Order Comment: Name Collection Type:: Clean-Voided Midstream Result Comment: PERF ORMED BY: [place] [address] PATHOLOGIST FLANGING OPERATOR BRANDI GONZALEZ M.D. Performed By: #### U A #### [place] [address] [place] pH (U) 6.5 [pH] Normal 5.0-9.0 [facility] Comment on above: Order Comment: Name Collection Type:: Clean-Voided Midstream Performed By: #### U A #### [place] [address] [place] Protein,Urine Negative Normal Negative [facility] Comment on above: Order Comment: Name Collection Type:: Clean-Voided Midstream Performed By: #### U A #### [address] Specificy [place],Urine 1.020 Normal 1.001-1.030 [facility] Comment on above: Order Comment: Name Collection Type:: Clean-Voided Midstream Performed By: #### U A #### [facility] [address] Urobilinogen,Urine Normal Normal Normal [facility] Comment on above: Order Comment: Name Collection Type:: Clean-Voided Midstream Performed By: #### U A #### [facility] [address] Urobilinogen Test strip (U) [Mass/Vol]Ordered By: Ale Fragoso on 10-26-2024 Urobilinogen (U) [Mass/Vol] Urobilinogen [Mass/volume] in Urine by Test strip Normal [facility] WBC Auto (Bld) [#/Vol]Ordere d By: Ale Fragoso on 10-26-2024 WBC (Bld) [#/Vol] Leukocytes [#/volume] in Blood by Automated count 3.8-11.6 [facility] pH Test strip (U)Ordered By: Ale Fragoso on 10-26-2024 pH (U) pH of Urine by Test strip 5.0-9.0 [facility] BOX TESTon 10-19-2024 BOX TEST SENT OUT [facility] [address] [facility] [address] 10/19/24 [facility] ( test) Ql (U)o n 10-01-2024 Interpretation and review of laboratory results Abnormal [facility] Preg Test, Ur Positive Negative [facility] Urinalysis macro (dipstick) panel (U)on 10-01-2024 Bilirubin, UA Negative Negative - 4(70) +++ mg/dL [facility] Blood, UA Negative Negative - 50 Brent/mcL [facility] Clarity, UA Clear [facility] Color, UA Yellow [facility] Glucose, UA Negative Negative - 2000(110) ++++ mg/dL [facility] Interpretation and review of laboratory results Normal [facility] Ketones, UA Negative Negative - 160(16) ++++ mg/dL [facility] Leukocytes, UA Negative Negative - 500+++ Kae/mcL [facility] Nitrite, UA Negative Negative - Positive [facility] pH, UA 6 5 - 9 [facility] Protein, UA Negative Negative - 2000(20) ++++ mg/dL [facility] Spec Grav, UA 1.005 1 - 1.03 [facility] Urobilinogen, UA 0.2 0.2 - 12 mg/dL [facility]H PREG QUANT HCGon 024 HCG QUANTITATIVE 81400 mIU/mL [facility] Comment on above: 5-50 0.2-1 WEEK 50-500 1-2 WEEKS 100-5,000 2-3 WEEKS 500-10,000 3-4 WEEKS 1,000-50,000 4-5 WEEKS 10,000-100,000 5-6 WEEKS 15,000-200,000 6-8 WEEKS 10,000-100,000 2-[facility] 024 HCG QUANTITATIVE 6224 mIU/mL [facility] Comment on above: 5-50 0.2-1 WEEK 50-500 1-2 WEEKS 100-5,000 2-3 WEEKS 500-10,000 3-4 WEEKS 1,000-50,000 4-5 WEEKS 10,000-100,000 5-6 WEEKS 15,000-200,000 6-8 WEEKS 10,000-100,000 2-3 MONTHS [facility] ALL PROGESTERONEon 4 PROGESTERONE 21.4 ng/mL . [facility] Comment on above: Follicular phase 0. 1 - 0.9 Luteal phase 1.8 - 23.9 Ovulation phase 0.1 - 12.0 First trimester 11.0 - 44.3 Second trimester 25.4 - 83.3 Third trimester 58.7 - 214.0 Postmenopausal 0.0 - 0.1 Performed at: [facility] [address] [id number] Substation Manager: Lebron Manzo PhD, Phone: [phone] [facility] HCG ( test) Ql (U)o n 06-29-2024 Interpretation and review of laboratory results Normal [facility] Preg Test, Ur Negative [facility] Urinalysis macro (dipstick) panel (U)on 06-29-2024 Bilirubin, UA Negative Negative - 4(70) +++ mg/dL [facility] Blood, UA Positive Negative - 50 Brent/mcL [facility] Comment on above: trace Clarity, UA Clear [facility] Color, UA Yellow [facility] Glucose, UA Negative Negative - 1999(110) ++++ mg/dL [facility] Interpretation and review of laboratory results Normal [facility] Ketones, UA Negative Negative - 160(16) ++++ mg/dL [facility] Leukocytes, UA Negative Negative - 500+++ Kae/mcL [facility] Nitrite, UA Negative Negative - Positive [facility] pH, UA 5.5 5 - 9 [facility] Protein, UA Negative Negative - 2000(20) ++++ mg/dL [facility] Spec Grav, UA 1.020 1 - 1.03 [facility] Urobilinogen, UA 1.0 0.2 - 12 mg/dL [facility] Alanine aminotransferase [En zymatic activity/volume] in Serum or PlasmaOrdered By: PROVIDER TEMP on 06-17-2024 ALT [Catalytic activity/Vol] 15 U/L Normal 7-52 [facility] Comment on above: Performed By: #### C BC, HEPATIC, BMP, LIPASE #### [facility] [address] Albumin [Mass/volume] in Ser um or Plasma by Bromocresol green (BCG) dye binding methoOrdered By: PROVIDER TEMP on 06-17-2024 Albumin BCG dye [Mass/Vol] 4.5 g/dL 3.5-5.7 [facility] Alkaline phosphatase [Enzyma tic activity/volume] in Serum or PlasmaOrdered By: PROVIDER TEMP on 06-17-2024 ALP [Catalytic activity/Vol] 58 U/L Normal 34-104 [facility] Comment on above: Performed By: #### C BC, HEPATIC, BMP, LIPASE #### [facility] [address] Aspartate aminotransferase [ Enzymatic activity/volume] in Serum or PlasmaOrdered By: PROVIDER TEMP on 06-17-2024 AST [Catalytic activity/Vol] 17 U/L Normal 13-39 [facility] Comment on above: Performed By: #### C BC, HEPATIC, BMP, LIPASE #### [facility] [address] [place] [id number] [place] Automated basophil %Ordered By: PROVIDER TEMP on 06-17-2024 Basophils/100 WBC (Bld) 1.1 % Normal . [facility] Comment on above: Performed By: #### C BC, HEPATIC, BMP, LIPASE #### [address] Automated basophil countOrde red By: PROVIDER TEMP on 06-17-2024 Basophils (Bld) [#/Vol] 0.0 10*3/uL Normal 0.0-0.2 [facility] Comment on above: Result Comment: PERF ORMED BY: [place] [address] PATHOLOGIST FLANGING OPERATOR KHANG WEEKS M.D. Performed By: #### C BC, HEPATIC, BMP, LIPASE #### [address] Automated blood monocyte cou ntOrdered By: PROVIDER TEMP on 06-17-2024 Monocytes (Bld) [#/Vol] 0.3 10*3/uL Normal 0.0-0.8 [facility] Comment on above: Performed By: #### C BC, HEPATIC, BMP, LIPASE #### [address] Automated eosinophil %Ordere d By: PROVIDER TEMP on 06-17-2024 Eosinophils/100 WBC (Bld) 9.5 % Normal . [facility] Comment on above: Performed By: #### C BC, HEPATIC, BMP, LIPASE #### [address] Automated eosinophil countOr dered By: PROVIDER TEMP on 06-17-2024 Eosinophils (Bld) [#/Vol] 0.4 10*3/uL Normal 0.0-0.45 [facility] Comment on above: Performed By: #### C BC, HEPATIC, BMP, LIPASE #### [address] Automated monocyte %Ordered By: PROVIDER TEMP on 06-17-2024 Monocytes/100 WBC (Bld) 7.1 % Normal . [facility] Comment on above: Performed By: #### C BC, HEPATIC, BMP, LIPASE #### [facility] [address] Automated neutrophil %Ordere d By: PROVIDER TEMP on 06-17-2024 Neutrophils/100 WBC (Bld) 51.1 % Normal . [facility] Comment on above: Performed By: #### C BC, HEPATIC, BMP, LIPASE #### [facility] [address] [place] [address] Basic Metabolic Panelon 06-06 Creatinine Clr Calc Pharmacy 78.60 Normal [facility] Comment on above: Performed By: #### C BC, HEPATIC, BMP, LIPASE #### [address] GFR/1.73 sq M.predicted MDRD (S/P/Bld) [Vol rate/Area] mL/min/{1.73_m2} Normal [facility] Comment on above: Performed By: #### C BC, HEPATIC, BMP, LIPASE #### [address] Bilirubin Test strip Ql (U)O rdered By: PROVIDER TEMP on 06-17-2024 Bilirubin Ql (U) Negative Negative [facility] Bilirubin.direct [Mass/volum e] in Serum or PlasmaOrdered By: PROVIDER TEMP on 06-17-2024 Bilirubin.direct [Mass/Vol] 0.20 mg/dL High 0.03-0.18 [facility] Bilirubin.total [Mass/volume ] in Serum or PlasmaOrdered By: PROVIDER TEMP on 06-17-2024 Bilirubin [Mass/Vol] 0.8 mg/dL Normal 0.3-1.0 [facility] Comment on above: Performed By: #### C BC, HEPATIC, BMP, LIPASE #### [facility] [address] [place] [address] Calcium [Mass/volume] in Ser um or PlasmaOrdered By: PROVIDER TEMP on 06-17-2024 Calcium [Mass/Vol] 9.2 mg/dL Normal 8.6-10.[address] [facility] Comment on above: Performed By: #### C BC, HEPATIC, BMP, LIPASE #### [address] Carbon dioxide, total [Moles /volume] in Serum or PlasmaOrdered By: PROVIDER TEMP on 06-17-2024 CO2 [Moles/Vol] 27.0 mmol/L Normal 21.0-31.0 [facility] Comment on above: Performed By: #### C BC, HEPATIC, BMP, LIPASE #### [address] Chloride [Moles/volume] in S mehdi or PlasmaOrdered By: PROVIDER TEMP on 06-17-2024 Chloride [Moles/Vol] 106 mmol/L Normal 98-107 [facility] Comment on above: Performed By: #### C BC, HEPATIC, BMP, LIPASE #### [address] Color of Urine by AutoOrdere d By: PROVIDER TEMP on 06-17-2024 Color (U) Light-yellow Normal Yellow [facility] Comment on above: Order Comment: Name Collection Type:: Clean-Voided Midstream Performed By: #### C BC, HEPATIC, BMP, LIPASE #### [address] Complete Blood Count Auto Di ffon 06-17-2024 Mean Corpuscular HGB Conc 34.6 g/dL Normal 32.0-35.0 [facility] Comment on above: Performed By: #### C BC, HEPATIC, BMP, LIPASE #### [place] [address] [place] Monocytes/100 WBC (Bld) 16.54 % Normal 0.00-20.00 [facility] Comment on above: Performed By: #### C BC, HEPATIC, BMP, LIPASE #### [address] NRBC% 0.1 /100{WBC} Normal 0-0.5 [facility] Comment on above: Performed By: #### C BC, HEPATIC, BMP, LIPASE #### [facility] [address] [place] [address] [place] Creatinine [Mass/volume] in Serum or PlasmaOrdered By: PROVIDER TEMP on 06-17-2024 Creatinine [Mass/Vol] 0.85 mg/dL Normal 0.60-1.20 [facility] Comment on above: Performed By: #### C BC, HEPATIC, BMP, LIPASE #### [facility] [address] Erythrocyte distribution wid th [Ratio] by Automated countOrdered By: PROVIDER TEMP on 06-17-2024 Erythrocyte distribution width (RBC) [Ratio] 12.7 % Normal 11.9-15.3 [facility] Comment on above: Performed By: #### C BC, HEPATIC, BMP, LIPASE #### [address] Erythrocytes [#/volume] in B lood by Automated countOrdered By: PROVIDER TEMP on 06-17-2024 RBC (Bld) [#/Vol] 4.50 10*6/uL Normal 3.60-5.00 [facility] Comment on above: Performed By: #### C BC, HEPATIC, BMP, LIPASE #### [address] Glucose [Mass/volume] in Ser um or PlasmaOrdered By: PROVIDER TEMP on 06-17-2024 Glucose [Mass/Vol] 86 mg/dL Normal 70-[address] [facility] Comment on above: ADA recommended refe rence rangeRandom Glucose Reference Range is dependent on time and content of last meal. Glucose of more than 200 mg/dL in a nonstressed, ambulatory subject supports the diagnosis of Diabetes Mellitus. Result Comment: Ona om Glucose Reference Range is dependent on time and content of last meal. Glucose of more than 200 mg/dL in a nonstressed, ambulatory subject supports the diagnosis of Diabetes Mellitus. ADA recommended reference range Performed By: #### C BC, HEPATIC, BMP, LIPASE #### [place] [address] [place] Glucose [Mass/volume] in Uri ne by Test stripOrdered By: PROVIDER TEMP on 06-17-2024 Glucose Test strip (U) [Mass/Vol] Normal mg/dL Normal [facility] HCG ( test) IA.rapi d Ql (U)Ordered By: PROVIDER TEMP on 06-17-2024 HCG ( test) Ql (U) Negative [facility] HCG,Urineon 06-17-2024 Beta HCG ( test) Ql (U) Negative Normal [facility] Comment on above: Order Comment: Name Collection Type:: Clean-Voided Midstream Result Comment: PERF ORMED BY: [place] [address] PATHOLOGIST FLANGING OPERATOR KHANG WEEKS M.D. Performed By: #### C BC, HEPATIC, BMP, LIPASE #### [address] Hematocrit [Volume Fraction] of Blood by Automated countOrdered By: PROVIDER TEMP on 06-17-2024 Hematocrit (Bld) [Volume fraction] 41.7 % Normal 34.0-46.4 [facility] Comment on above: Performed By: #### C BC, HEPATIC, BMP, LIPASE #### [address] Hemoglobin Test strip Ql (U) Ordered By: PROVIDER TEMP on 06-17-2024 Hemoglobin Ql (U) Negative Negative [facility] Hemoglobin [Mass/volume] in BloodOrdered By: PROVIDER TEMP on 06-17-2024 Hemoglobin (Bld) [Mass/Vol] 14.4 g/dL Normal 11.8-15.4 [facility] Comment on above: Performed By: #### C BC, HEPATIC, BMP, LIPASE #### [facility] [address] [place] [address] Hepatic Panelon 06-17-2024 Albumin [Mass/Vol] 4.5 g/dL Normal 3.5-5.7 [facility] Comment on above: Performed By: #### C BC, HEPATIC, BMP, LIPASE #### [address] Bilirubin,Indirect 0.6 mg/dL Normal [facility] Comment on above: Performed By: #### C BC, HEPATIC, BMP, LIPASE #### [facility] [address] Bilirubin.indirect [Mass/Vol] 0.20 mg/dL High 0.03-0.18 [facility] Comment on above: Performed By: #### C BC, HEPATIC, BMP, LIPASE #### [facility] [address] Ketones [Presence] in Urine by Test stripOrdered By: PROVIDER TEMP on 06-17-2024 Ketones Ql (U) 1+ High Negative [facility] Comment on above: Order Comment: Name Collection Type:: Clean-Voided Midstream Performed By: #### C BC, HEPATIC, BMP, LIPASE #### [address] Leukocyte esterase [Presence ] in Urine by Test stripOrdered By: PROVIDER TEMP on 06-17-2024 Leukocyte esterase Test strip Ql (U) Negative Normal Negative [facility] Comment on above: Order Comment: Name Collection Type:: Clean-Voided Midstream Performed By: #### C BC, HEPATIC, BMP, LIPASE #### [facility] [address] [place] [address] Leukocytes [#/volume] correc ira for nucleated erythrocytes in Blood by Automated counOrdered By: PROVIDER TEMP on 06-17-2024 WBC corrected for nucl RBC Auto (Bld) [#/Vol] 4.4 10*3/uL 3.8-11.6 [facility] Leukocytes [#/volume] in Blo od by Automated countOrdered By: PROVIDER TEMP on 06-17-2024 WBC (Bld) [#/Vol] 4.4 10*3/uL Normal 3.8-11.[address] [facility] Comment on above: Performed By: #### C BC, HEPATIC, BMP, LIPASE #### [facility] [address] [place] [address] Lipase [Enzymatic activity/v olume] in Serum or PlasmaOrdered By: PROVIDER TEMP on 06-17-2024 Lipase [Catalytic activity/Vol] 16.0 U/L Normal 11.0-82.0 [facility] Comment on above: Result Comment: PERF ORMED BY: [place] [address] PATHOLOGIST FLANGING OPERATOR KHANG WEEKS M.D. Performed By: #### C BC, HEPATIC, BMP, LIPASE #### [address] Lymphocytes [#/volume] in Bl ood by Automated countOrdered By: PROVIDER TEMP on 06-17-2024 Lymphocytes (Bld) [#/Vol] 1.4 10*3/uL Normal 1.00-4.8 [facility] Comment on above: Performed By: #### C BC, HEPATIC, BMP, LIPASE #### [address] Lymphocytes/100 leukocytes i n Blood by Automated countOrdered By: PROVIDER TEMP on 06-17-2024 Lymphocytes/100 WBC (Bld) 31.2 % Normal . [facility] Comment on above: Performed By: #### C BC, HEPATIC, BMP, LIPASE #### [address] MCH [Entitic mass] by Automa ira countOrdered By: PROVIDER TEMP on 06-17-2024 MCH (RBC) [Entitic mass] 32.1 pg Normal 24.7-34.3 [facility] Comment on above: Performed By: #### C BC, HEPATIC, BMP, LIPASE #### [address] MCHC Auto (RBC) [Mass/Vol]Or dered By: PROVIDER TEMP on 06-17-2024 MCHC (RBC) [Mass/Vol] 34.6 g/dL 32.0-35.0 [facility] MCV [Entitic volume] by Auto mated countOrdered By: PROVIDER TEMP on 06-17-2024 MCV (RBC) [Entitic vol] 92.6 fL Normal 80-100 [facility] Comment on above: Performed By: #### C BC, HEPATIC, BMP, LIPASE #### [place] [id number] [place] Monocyte distribution width [Entitic volume] in Blood by AutomatedOrdered By: PROVIDER TEMP on 06-17-2024 Monocyte distribution width Auto (Bld) [Entitic vol] 16.54 % 0.00-20.00 [facility] Neutrophils [#/volume] in Bl ood by Automated countOrdered By: PROVIDER TEMP on 06-17-2024 Neutrophils (Bld) [#/Vol] 2.2 10*3/uL Normal 1.8-7.7 [facility] Comment on above: Performed By: #### C BC, HEPATIC, BMP, LIPASE #### [facility] [address] Nitrite Test strip Ql (U)Ord ered By: PROVIDER TEMP on 06-17-2024 Nitrite Ql (U) Negative Negative [facility] No Panel InformationOrdered By: PROVIDER TEMP on 06-17-2024 Estimated GFR (CKD-EPI) > 60.0 mL/Min [facility] Creatinine Clearance (Chem 78.60 [facility] Nucleated erythrocytes [Pres ence] in Blood by Automated countOrdered By: PROVIDER TEMP on 06-17-2024 Nucleated RBC Auto Ql (Bld) 0.1 /100{WBC} 0-0.5 [facility] Platelet mean volume [Entiti c volume] in Blood by Automated countOrdered By: PROVIDER TEMP on 06-17-2024 Platelet mean volume (Bld) [Entitic vol] 7.5 fL Normal 6.3-10.7 [facility] Comment on above: Performed By: #### C BC, HEPATIC, BMP, LIPASE #### [facility] [address] [place] [address] [place] Platelets [#/volume] in Bloo d by Automated countOrdered By: PROVIDER TEMP on 06-17-2024 Platelets (Bld) [#/Vol] 210 10*3/uL Normal 150-450 [facility] Comment on above: Performed By: #### C BC, HEPATIC, BMP, LIPASE #### [facility] [address] [place] [address] [place] Potassium [Moles/volume] in Serum or PlasmaOrdered By: PROVIDER TEMP on 06-17-2024 Potassium [Moles/Vol] 3.6 mmol/L Normal 3.5-5.1 [facility] Comment on above: Performed By: #### C BC, HEPATIC, BMP, LIPASE #### [address] Protein Test strip (U) [Mass /Vol]Ordered By: PROVIDER TEMP on 06-17-2024 Protein (U) [Mass/Vol] Negative Negative [facility] Protein [Mass/volume] in Ser um or PlasmaOrdered By: PROVIDER TEMP on 06-17-2024 Protein [Mass/Vol] 7.0 g/dL Normal 6.4-8.[address] [facility] Comment on above: Performed By: #### C BC, HEPATIC, BMP, LIPASE #### [address] Serum globulin measurement b y calculation (mass/volume)Ordered By: PROVIDER TEMP on 06-17-2024 Globulin (S) [Mass/Vol] 2.5 g/dL Normal [facility] Comment on above: Performed By: #### C BC, HEPATIC, BMP, LIPASE #### [address] Serum or plasma albumin/glob ulin mass ratioOrdered By: PROVIDER TEMP on 06-17-2024 Albumin/Globulin [Mass ratio] 1.8 {ratio} Normal [facility] Comment on above: Performed By: #### C BC, HEPATIC, BMP, LIPASE #### [address] Serum or plasma anion gap de terminationOrdered By: PROVIDER TEMP on 06-17-2024 Anion gap [Moles/Vol] 6.6 mmol/L Normal 6.0-15.0 [facility] Comment on above: Performed By: #### C BC, HEPATIC, BMP, LIPASE #### [address] Serum or plasma non-glucuron idated bilirubin measurement (mass/volume)Ordered By: PROVIDER TEMP on 09-12-2024 Bilirubin.indirect [Mass/Vol] 0.6 mg/dL [facility] Sodium [Moles/volume] in Ser um or PlasmaOrdered By: PROVIDER TEMP on 06-17-2024 Sodium [Moles/Vol] 136 mmol/L Normal 136-[address] [facility] Comment on above: Performed By: #### C BC, HEPATIC, BMP, LIPASE #### [facility] [address] Specific gravity Test strip (U) [Rel density]Ordered By: PROVIDER TEMP on 06-17-2024 Specific gravity (U) [Rel density] 1.018 1.001-1.030 [facility] Urea nitrogen [Mass/volume] in Serum or PlasmaOrdered By: PROVIDER TEMP on 06-17-2024 Urea nitrogen [Mass/Vol] 9 mg/dL Normal 7-25 [facility] Comment on above: Performed By: #### C BC, HEPATIC, BMP, LIPASE #### [facility] [address] [place] [address] [place] Urinalysison 06-17-2024 Bilirubin,Urine Negative Normal Negative [facility] Comment on above: Order Comment: Name Collection Type:: Clean-Voided Midstream Performed By: #### C BC, HEPATIC, BMP, LIPASE #### [facility] [address] Glucose Ql (U) Normal Normal Normal [facility] Comment on above: Order Comment: Name Collection Type:: Clean-Voided Midstream Performed By: #### C BC, HEPATIC, BMP, LIPASE #### [facility] [address] [place] [address] [place] Nitrite,Urine Negative Normal Negative [facility] Comment on above: Order Comment: Name Collection Type:: Clean-Voided Midstream Performed By: #### C BC, HEPATIC, BMP, LIPASE #### [facility] [address] Occult Blood,Urine Negative Normal Negative [facility] Comment on above: Order Comment: Name Collection Type:: Clean-Voided Midstream Performed By: #### C BC, HEPATIC, BMP, LIPASE #### [address] Protein,Urine Negative Normal Negative [facility] Comment on above: Order Comment: Name Collection Type:: Clean-Voided Midstream Performed By: #### C BC, HEPATIC, BMP, LIPASE #### [address] Specificy [place],Urine 1.018 Normal 1.001-1.030 [facility] Comment on above: Order Comment: Name Collection Type:: Clean-Voided Midstream Performed By: #### C BC, HEPATIC, BMP, LIPASE #### [address] Urobilinogen,Urine Normal Normal Normal [facility] Comment on above: Order Comment: Name Collection Type:: Clean-Voided Midstream Performed By: #### C BC, HEPATIC, BMP, LIPASE #### [address] Urine appearanceOrdered By: PROVIDER TEMP on 06-17-2024 Appearance (U) Clear Normal Clear [facility] Comment on above: Order Comment: Name Collection Type:: Clean-Voided Midstream Performed By: #### C BC, HEPATIC, BMP, LIPASE #### [address] Urobilinogen Test strip (U) [Mass/Vol]Ordered By: PROVIDER TEMP on 06-17-2024 Urobilinogen (U) [Mass/Vol] Normal mg/dL Normal [facility] pH of Urine by Test stripOrd ered By: PROVIDER TEMP on 06-17-2024 pH (U) 6.0 [pH] Normal 5.0-9.0 [facility] Comment on above: Order Comment: Name Collection Type:: Clean-Voided Midstream Performed By: #### C BC, HEPATIC, BMP, LIPASE #### [address] Choriogonadotropin.beta subu nit [Units/volume] in Serum or PlasmaOrdered By: Dominic Hester on 04-24-2024 HCG.beta subunit Qn m[IU]/mL [facility] Comment on above: Approximate Approxim ate hCG Gestational Age Range (mIU/ml) (weeks)0.2-1 5-50 1-2 50-500 2-3 100-5,000 3-4 500-10,000 4-5 1,000-50,000 5-6 10,000-100,000 6-8 15,000-200,000 8-12 10,000-100,000 HCG,Quantitativeon 4 HCG,Quantitative < 0.60 Normal [facility] Comment on above: Result Comment: Appr oximate Approximate hCG Gestational Age Range (mIU/ml) (weeks) 0.2-1 5-50 1-2 50-500 2-3 100-5,000 3-4 500-10,000 4-5 1,000-50,000 5-6 10,000-100,000 6-8 15,000-200,000 8-12 10,000-100,000 PERFORMED BY: [place] [address] PATHOLOGIST FLANGING OPERATOR KHANG WEEKS M.D. Performed By: #### C BC, HEPATIC, BMP, LIPASE #### [address] Basophils Auto (Bld) [#/Vol] Ordered By: Sylvia Romero on 03-28-2023 Basophils (Bld) [#/Vol] 0.0 10*3/uL 0.0-0.2 [facility] Basophils/100 WBC Auto (Bld) Ordered By: Sylvia Romero on 03-28-2023 Basophils/100 WBC (Bld) 0.8 % . [facility] Choriogonadotropin.beta subu nit [Units/volume] in Serum or PlasmaOrdered By: Sylvia Romero on 03-28-2023 HCG.beta subunit Qn m[IU]/mL [facility] Comment on above: Approximate Approxim ate hCG Gestational Age Range (mIU/ml) (weeks)0.2-1 5-50 1-2 50-500 2-3 100-5,000 3-4 500-10,000 4-5 1,000-50,000 5-6 10,000-100,000 6-8 15,000-200,000 8-12 10,000-100,000 Eosinophils Auto (Bld) [#/Vo l]Ordered By: Sylvia Romero on 03-28-2023 Eosinophils (Bld) [#/Vol] 0.2 10*3/uL 0.0-0.45 [facility] Eosinophils/100 WBC Auto (Bl d)Ordered By: Sylvia Romero on 03-28-2023 Eosinophils/100 WBC (Bld) 4.7 % . [facility] Erythrocyte distribution wid th Auto (RBC) [Ratio]Ordered By: Sylvia Romero on 03-28-2023 Erythrocyte distribution width (RBC) [Ratio] 13.0 % 11.9-15.3 [facility] Hematocrit Auto (Bld) [Volum e fraction]Ordered By: Sylvia Romero on 03-28-2023 Hematocrit (Bld) [Volume fraction] 38.0 % 34.0-46.4 [facility] Hemoglobin [Mass/volume] in BloodOrdered By: Sylvia Romero on 03-28-2023 Hemoglobin (Bld) [Mass/Vol] 12.9 g/dL 11.8-15.4 [facility] Leukocytes [#/volume] correc ira for nucleated erythrocytes in Blood by Automated counOrdered By: Sylvia Romero on 03-28-2023 WBC corrected for nucl RBC Auto (Bld) [#/Vol] 4.1 10*3/uL 3.8-11.6 [facility] Lymphocytes Auto (Bld) [#/Vo l]Ordered By: Sylvia Romero on 03-28-2023 Lymphocytes (Bld) [#/Vol] 1.0 10*3/uL 1.00-4.8 [facility] Lymphocytes/100 WBC Auto (Bl d)Ordered By: Sylvia Romero on 03-28-2023 Lymphocytes/100 WBC (Bld) 23.9 % . [facility] MCH Auto (RBC) [Entitic mass ]Ordered By: Sylvia Romero on 03-28-2023 MCH (RBC) [Entitic mass] 31.3 pg 24.7-34.3 [facility] MCHC Auto (RBC) [Mass/Vol]Or dered By: Sylvia Romero on 03-28-2023 MCHC (RBC) [Mass/Vol] 33.9 g/dL 32.0-35.0 [facility] MCV Auto (RBC) [Entitic vol] Ordered By: Sylvia Romero on 03-28-2023 MCV (RBC) [Entitic vol] 92.3 fL 80-100 [facility] Monocytes Auto (Bld) [#/Vol] Ordered By: Sylvia Romero on 03-28-2023 Monocytes (Bld) [#/Vol] 0.3 10*3/uL 0.0-0.8 [facility] Monocytes/100 WBC Auto (Bld) Ordered By: Sylvia Romero on 03-28-2023 Monocytes/100 WBC (Bld) 7.5 % . [facility] Neutrophils Auto (Bld) [#/Vo l]Ordered By: Sylvia Romero on 03-28-2023 Neutrophils (Bld) [#/Vol] 2.6 10*3/uL 1.8-7.7 [facility] Neutrophils/100 WBC Auto (Bl d)Ordered By: Sylvia Romero on 03-28-2023 Neutrophils/100 WBC (Bld) 63.1 % . [facility] Nucleated erythrocytes [Pres ence] in Blood by Automated countOrdered By: Sylvia Romero on 03-28-2023 Nucleated RBC Auto Ql (Bld) 0.1 /100{WBC} 0-0.5 [facility] Platelet mean volume Auto (B ld) [Entitic vol]Ordered By: Sylvia Romero on 03-28-2023 Platelet mean volume (Bld) [Entitic vol] 8.8 fL 6.3-10.7 [facility] Platelets Auto (Bld) [#/Vol] Ordered By: Sylvia Romero on 03-28-2023 Platelets (Bld) [#/Vol] 196 10*3/uL 150-450 [facility] Prolactin [Mass/volume] in S mehdi or PlasmaOrdered By: Sylvia Romero on 03-28-2023 Prolactin [Mass/Vol] 3.20 ng/mL 3.34-26.72 [facility] RBC Auto (Bld) [#/Vol]Ordere d By: Sylvia Romero on 03-28-2023 RBC (Bld) [#/Vol] 4.12 10*6/uL 3.60-5.00 [facility] Thyrotropin [Units/volume] i n Serum or PlasmaOrdered By: Sylvia Romero on 03-28-2023 TSH Qn 1.31 m[IU]/L 0.45-5.33 [facility] WBC Auto (Bld) [#/Vol]Ordere d By: Sylvia Romero on 03-28-2023 WBC (Bld) [#/Vol] 4.1 10*3/uL 3.8-11.[address] [facility] US PREG TVon 01-20-2023 US PREG [...] KENNEDY LEHMAN Date: 2023-01-19 23:22 [address] [facility] CBC AUTO DIFFon 01-17-2023 BASO # 0.0 103/ul Normal 0.0-0.1 [facility] Comment on above: Performed By: #### C ANJU PULIDO AMY #### [facility] [address] [place], [place] [address] Dr. Lester Yen Basophils/100 WBC (Bld) 1.1 % Normal 0.2-2.0 [facility] Comment on above: Performed By: #### C ANJU PULIDO AMY #### [facility] [address] [place], [place] [address] Dr. Lester Yen EO # 0.2 103/ul Normal 0.0-0.7 [facility] Comment on above: Performed By: #### C BECKI PULIDOA, SYLVIA #### [facility] [address] [place] [address] Dr. Lester Yen Eosinophils/100 WBC (Bld) 5.4 % Normal 0.9-7.0 [facility] Comment on above: Performed By: #### C BECKI PULIDOA, SYLVIA #### [facility] [address] [place] [address] Dr. Lester Yen Erythrocyte distribution width (RBC) [Ratio] 12.4 % Normal 11.0-15.0 [facility] Comment on above: Performed By: #### C ANJU PULIDO, SYLVIA #### [facility] [address] [place] [address] Dr. Lester Yen Hematocrit (Bld) [Volume fraction] 37.7 % Normal 36.0-48.0 [facility] Comment on above: Performed By: #### C ANJU PULIDO, SYLVIA #### [facility] [address] [place] [address] Dr. Lester Yen Hemoglobin (Bld) [Mass/Vol] 13.2 g/dL Normal 12.0-16.0 [facility] Comment on above: Performed By: #### C ANJU PULIDO, SYLVIA #### [facility] [address] [place] [address] Dr. eLster Yen IG # 0.01 10e3/ul Normal 0.00-0.[address] [facility] Comment on above: Performed By: #### C BECKI PULIDOA, SYLVIA #### [facility] [address] [place] [address] Dr. Lester Yen IG % 0.3 % Normal 0.0-0.[address] [facility] Comment on above: Performed By: #### C ANJU PULIDO, SYLVIA #### [facility] [address] [place] [address] Dr. Lester Yen LYMPH # 1.1 103/ul Critically low 1.2-3.8 [facility] Comment on above: Performed By: #### C BECKI PULIDOA, SYLVIA #### [facility] [address] [place] [address] Dr. Lester Yen Lymphocytes/100 WBC (Bld) 28.3 % Normal 20.5-60.0 [facility] Comment on above: Performed By: #### C MP, LIPA, SYLVIA #### [facility] [address] [place] [address] [address] Lester Yen MANUAL DIFF REQ NO Normal [facility] Comment on above: Performed By: #### C MP, LIPA, SYLVIA #### [facility] [address] [place] [address] Dr. Lester Yen MCH (RBC) [Entitic mass] 31.5 pg Normal 26.7-34.0 [facility] Comment on above: Performed By: #### C MP, LIPA, SYLVIA #### [facility] [address] [place] [address] Dr. Lester Yen MCHC (RBC) [Mass/Vol] 35.0 g/dL Normal 29.9-35.2 [facility] Comment on above: Performed By: #### C MP, LIPA, SYLVIA #### [facility] [address] [place] [address] Dr. Lester Yen MCV (RBC) [Entitic vol] 90.0 fL Normal 81.0-99.0 [facility] Comment on above: Performed By: #### C MP, LIPA, SYLVIA #### [facility] [address] [place] [address] Dr. Lester Yen MONO # 0.3 103/ul Normal 0.3-0.8 [facility] Comment on above: Performed By: #### C MP, LIPA, SYLVIA #### [facility] [address] [place] [address] Dr. Lester Yen Monocytes/100 WBC (Bld) 9.2 % Normal 1.7-12.0 [facility] Comment on above: Performed By: #### C MP, LIPA, SYLVIA #### [facility] [address] [place] [address] Dr. Lester Yen NEUT # 2.1 103/ul Normal 1.4-6.5 [facility] Comment on above: Performed By: #### C ANJU PULIDO, SYLVIA #### [facility] [address] [place] [address] [address] Lester Yen Neutrophils/100 WBC (Bld) 55.7 % Normal 43.0-75.0 [facility] Comment on above: Performed By: #### C ANJU PULIDO, SYLVIA #### [facility] [address] [place] [address] Dr. Lester Yen Platelet mean volume (Bld) [Entitic vol] 9.2 fL Critically low 9.5-13.5 [facility] Comment on above: Performed By: #### C ANJU PULIDO AMY #### [facility] [address] [place] [address] Dr. Lester Yen PLT 209 103/ul Normal 150-[address] [facility] Comment on above: Performed By: #### C ANJU PULIDO AMY #### [facility] [address] [place] [address] Dr. Lester Yen RBC 4.19 106/ul Critically low 4.20-5.40 [facility] Comment on above: Performed By: #### C ANJU PULIDO AMY #### [facility] [address] [place] [address] Dr. Lester Yen WBC 3.7 103/ul Critically low 4.0-11.0 [facility] Comment on above: Performed By: #### C ANJU PULIDO AMY #### [facility] [address] [place] [address] Dr. Lester Yen TYPE AND SCREENon 01-17-2023 TYPE AND SCREEN Negative Normal [facility] Comment on above: Performed By: #### C ANJU PULIDO AMY #### [facility] [address] [place] [address] Dr. Lester Yen Alanine aminotransferase [En zymatic activity/volume] in Serum or PlasmaOrdered By: Monika Camarillo on 01-03-2023 ALT [Catalytic activity/Vol] 13 U/L 7-52 [facility] Albumin [Mass/volume] in Ser um or Plasma by Bromocresol green (BCG) dye binding methoOrdered By: Monika Camarillo on 01-03-2023 Albumin BCG dye [Mass/Vol] 4.7 g/dL 3.5-5.7 [facility] Alkaline phosphatase [Enzyma tic activity/volume] in Serum or PlasmaOrdered By: Monika Camarillo on 01-03-2023 ALP [Catalytic activity/Vol] 47 U/L 34-104 [facility] Aspartate aminotransferase [ Enzymatic activity/volume] in Serum or PlasmaOrdered By: Monika Camarillo on 01-03-2023 AST [Catalytic activity/Vol] 15 U/L 13-39 [facility] Basophils Auto (Bld) [#/Vol] Ordered By: Monika Camarillo on 01-03-2023 Basophils (Bld) [#/Vol] 0.0 10*3/uL 0.0-0.2 [facility] Basophils/100 WBC Auto (Bld) Ordered By: Monika Camarillo on 01-03-2023 Basophils/100 WBC (Bld) 0.3 % . [facility] Bilirubin Test strip Ql (U)O rdered By: Monika Camarillo on 01-03-2023 Bilirubin Ql (U) Negative Negative [facility] Bilirubin.total [Mass/volume ] in Serum or PlasmaOrdered By: Monika Camarillo on 01-03-2023 Bilirubin [Mass/Vol] 0.8 mg/dL 0.3-1.0 [facility] Calcium [Mass/volume] in Ser um or PlasmaOrdered By: Monika Camarillo on 01-03-2023 Calcium [Mass/Vol] 9.2 mg/dL 8.6-10.[address] [facility] Carbon dioxide, total [Moles /volume] in Serum or PlasmaOrdered By: Monika Camarillo on 01-03-2023 CO2 [Moles/Vol] 23.8 mmol/L 21.0-31.0 [facility] Chloride [Moles/volume] in S mehdi or PlasmaOrdered By: Monika Camarillo on 01-03-2023 Chloride [Moles/Vol] 105 mmol/L 98-107 [facility] Choriogonadotropin.beta subu nit [Units/volume] in Serum or PlasmaOrdered By: Monika Camarillo on 01-03-2023 [place] [address].00 m[IU]/mL [facility] Comment on above: Approximate Approxim ate hCG Gestational Age Range (mIU/ml) (weeks)0.2-1 5-50 1-2 50-500 2-3 100-5,000 3-4 500-10,000 4-5 1,000-50,000 5-6 10,000-100,000 6-8 15,000-200,000 8-12 10,000-100,000 Color Auto (U)Ordered By: Po Camarillo on 01-03-2023 Color (U) Yellow Yellow [facility] Creatinine [Mass/volume] in Serum or PlasmaOrdered By: Monika Camarillo on 01-03-2023 Creatinine [Mass/Vol] 0.71 mg/dL 0.60-1.20 [facility] ER URINE PROFILEon 3 Bilirubin Ql (U) Negative Normal NEGATIVE [facility] Comment on above: Performed By: #### E RUR #### [facility] [address] [place] [address] Dr. Lester Yen Clarity (U) CLEAR Normal CLEAR [facility] Comment on above: Performed By: #### E RUR #### [facility] [address] [place] [address] Dr. Lester Yen Color (U) LT. YELLOW Normal YELLOW [facility] Comment on above: Performed By: #### E RUR #### [facility] [address] [place] [address] Dr. Lester Yen ERUAHMarianela A micrscopic examination will be performed if indicated. Normal [facility] Comment on above: Performed By: #### E RUR #### [facility] [address] [place] [address] Dr. Lester Yen Glucose Ql (U) Negative Normal NEGATIVE [facility] Comment on above: Performed By: #### E RUR #### [facility] [address] [place] [address] Dr. Lester Yen Hemoglobin Ql (U) Negative Normal NEGATIVE [facility] Comment on above: Performed By: #### E RUR #### [facility] [address] [place] [address] Dr. Lester Yen Ketones Ql (U) 15 mg/dl Abnormal NEGATIVE [facility] Comment on above: Performed By: #### E RUR #### [facility] [address] [place] [address] Dr. Lester Yen LEUKOCYTES Negative Normal NEGATIVE [facility] Comment on above: Performed By: #### E RUR #### [facility] [address] [place] [address] Dr. Lester Yen Nitrite Ql (U) Negative Normal NEGATIVE [facility] Comment on above: Performed By: #### E RUR #### [facility] [address] [place] [address] Dr. Lester Yen pH (U) 6.0 [pH] Normal 5-9 [facility] Comment on above: Performed By: #### E RUR #### [facility] [address] [place] [address] Dr. Lester Yen SPEC GRAVITY <=1.005 Abnormal 1.005-<=1.02 5 [facility] Comment on above: Performed By: #### E RUR #### [facility] [address] [place] [address] Dr. Lester Yen UA PROTEIN Negative Normal NEGATIVE/ TRACE [facility] Comment on above: Performed By: #### E RUR #### [facility] [address] [place] [address] Dr. Lester Yen UR MICRO IND NOT INDICATED Normal [facility] Comment on above: Performed By: #### E RUR #### [facility] [address] [place] [address] Dr. Lester Yen Urobilinogen Qn (U) 0.2 {Olivier'U}/dL Normal 0.2 - 1. 0 [facility] Comment on above: Performed By: #### E RUR #### [facility] [address] [place] [address] Dr. Lester Yen Eosinophils Auto (Bld) [#/Vo l]Ordered By: Monika Camarillo on 01-03-2023 Eosinophils (Bld) [#/Vol] 0.3 10*3/uL 0.0-0.45 [facility] Eosinophils/100 WBC Auto (Bl d)Ordered By: Moniak Camarillo on 01-03-2023 Eosinophils/100 WBC (Bld) 5.4 % . [facility] Erythrocyte distribution wid th Auto (RBC) [Ratio]Ordered By: Monika Camarillo on 01-03-2023 Erythrocyte distribution width (RBC) [Ratio] 12.7 % 11.9-15.3 [facility] Globulin Calc (S) [Mass/Vol] Ordered By: Monika Camarillo on 01-03-2023 Globulin (S) [Mass/Vol] 2.1 g/dL [facility] Glucose [Mass/volume] in Ser um or PlasmaOrdered By: Monika Camarillo on 01-03-2023 Glucose [Mass/Vol] 85 mg/dL 70-[address] [facility] Comment on above: ADA recommended refe rence rangeRandom Glucose Reference Range is dependent on time and content of last meal. Glucose of more than 200 mg/dL in a nonstressed, ambulatory subject supports the diagnosis of Diabetes Mellitus. Hematocrit Auto (Bld) [Volum e fraction]Ordered By: Monika Camarillo on 01-03-2023 Hematocrit (Bld) [Volume fraction] 39.8 % 34.0-46.4 [facility] Hemoglobin [Mass/volume] in BloodOrdered By: Monika Camarillo on 01-03-2023 Hemoglobin (Bld) [Mass/Vol] 13.4 g/dL 11.8-15.4 [facility] Ketones Auto test strip (U) [Mass/Vol]Ordered By: Monika Camarillo on 01-03-2023 Ketones (U) [Mass/Vol] Negative Negative [facility] Leukocytes [#/volume] correc ira for nucleated erythrocytes in Blood by Automated counOrdered By: Monika Camarillo on 01-03-2023 WBC corrected for nucl RBC Auto (Bld) [#/Vol] 5.7 10*3/uL 3.8-11.6 [facility] Lipase [Enzymatic activity/v olume] in Serum or PlasmaOrdered By: Monika Camarillo on 01-03-2023 Lipase [Catalytic activity/Vol] 17.0 U/L 11.0-82.0 [facility] Lymphocytes Auto (Bld) [#/Vo l]Ordered By: Monika Camarillo on 01-03-2023 Lymphocytes (Bld) [#/Vol] 0.9 10*3/uL 1.00-4.8 [facility] Lymphocytes/100 WBC Auto (Bl d)Ordered By: Monika Camarillo on 01-03-2023 Lymphocytes/100 WBC (Bld) 15.2 % . [facility] MCH Auto (RBC) [Entitic mass ]Ordered By: Monika Camarillo on 01-03-2023 MCH (RBC) [Entitic mass] 31.0 pg 24.7-34.3 [facility] MCHC Auto (RBC) [Mass/Vol]Or dered By: Monika Camarillo on 01-03-2023 MCHC (RBC) [Mass/Vol] 33.6 g/dL 32.0-35.0 [facility] MCV Auto (RBC) [Entitic vol] Ordered By: Monika Camarillo on 01-03-2023 MCV (RBC) [Entitic vol] 92.2 fL 80-100 [facility] Monocyte distribution width [Entitic volume] in Blood by AutomatedOrdered By: Monika Camarillo on 01-03-2023 Monocyte distribution width Auto (Bld) [Entitic vol] 17.53 % 0.00-20.00 [facility] Monocytes Auto (Bld) [#/Vol] Ordered By: Monika Camarillo on 01-03-2023 Monocytes (Bld) [#/Vol] 0.4 10*3/uL 0.0-0.8 [facility] Monocytes/100 WBC Auto (Bld) Ordered By: Monika Camarillo on 01-03-2023 Monocytes/100 WBC (Bld) 6.5 % . [facility] Neutrophils Auto (Bld) [#/Vo l]Ordered By: Monika Camarillo on 01-03-2023 Neutrophils (Bld) [#/Vol] 4.1 10*3/uL 1.8-7.7 [facility] Neutrophils/100 WBC Auto (Bl d)Ordered By: Monika Camarillo on 01-03-2023 Neutrophils/100 WBC (Bld) 72.6 % . [facility] Nitrite Test strip Ql (U)Ord ered By: Monika Camarillo on 01-03-2023 Nitrite Ql (U) Negative Negative [facility] No Panel InformationOrdered By: Monika Camarillo on 01-03-2023 Estimated GFR (CKD-EPI) > 60.0 mL/Min [facility] Creatinine Clearance (Chem 94.97 [facility] Nucleated erythrocytes [Pres ence] in Blood by Automated countOrdered By: Monika Camarillo on 01-03-2023 Nucleated RBC Auto Ql (Bld) 0.1 /100{WBC} 0-0.5 [facility] Platelet mean volume Auto (B ld) [Entitic vol]Ordered By: Monika Camarillo on 01-03-2023 Platelet mean volume (Bld) [Entitic vol] 7.5 fL 6.3-10.7 [facility] Platelets Auto (Bld) [#/Vol] Ordered By: Monika Camarillo on 01-03-2023 Platelets (Bld) [#/Vol] 187 10*3/uL 150-450 [facility] Potassium [Moles/volume] in Serum or PlasmaOrdered By: Monika Camarillo on 01-03-2023 Potassium [Moles/Vol] 3.7 mmol/L 3.5-5.1 [facility] Protein Auto test strip (U) [Mass/Vol]Ordered By: Monika Camarillo on 01-03-2023 Protein (U) [Mass/Vol] Negative Negative [facility] Protein [Mass/volume] in Ser um or PlasmaOrdered By: Monika Camarillo on 01-03-2023 Protein [Mass/Vol] 6.8 g/dL 6.4-8.[address] [facility] RBC Auto (Bld) [#/Vol]Ordere d By: Monika Camarillo on 01-03-2023 RBC (Bld) [#/Vol] 4.32 10*6/uL 3.60-5.00 [facility] Serum or plasma albumin/glob ulin mass ratioOrdered By: Monika Camarillo on 01-03-2023 Albumin/Globulin [Mass ratio] 2.2 {ratio} [facility] Serum or plasma anion gap de terminationOrdered By: Monika Camarillo on 01-03-2023 Anion gap [Moles/Vol] 10.9 mmol/L 6.0-15.0 [facility] Sodium [Moles/volume] in Ser um or PlasmaOrdered By: Monika Camarillo on 01-03-2023 Sodium [Moles/Vol] 136 mmol/L 136-[address] [facility] Specific gravity Auto test s trip (U) [Rel density]Ordered By: Monika Camarillo on 01-03-2023 Specific gravity (U) [Rel density] 1.005 1.001-1.030 [facility] US PREG TVon 01-03-2023 US PREG [...] LOPEZ ZARAGOZA Date: 2023-01-03 21:49 Normal [facility] Urea nitrogen [Mass/volume] in Serum or PlasmaOrdered By: Monika Camarillo on 01-03-2023 Urea nitrogen [Mass/Vol] 9 mg/dL 7-25 [facility] Urine clarity by refractomet ry automatedOrdered By: Monika Camarillo on 01-03-2023 Clarity Refractometry automated (U) Clear Clear [facility] Urine glucose measurement by automated test strip (mass/volume)Ordered By: Monika Camarillo on 01-03-2023 Glucose Auto test strip (U) [Mass/Vol] Normal mg/dL Normal [facility] Urine hemoglobin detection b y automated test stripOrdered By: Monika Camarillo on 01-03-2023 Hemoglobin Auto test strip Ql (U) Negative Negative [facility] Urine leukocyte esterase det ection by automated test stripOrdered By: Monika Camarillo on 01-03-2023 Leukocyte esterase Auto test strip Ql (U) Negative Negative [facility] Urobilinogen Auto test strip (U) [Mass/Vol]Ordered By: Monika Camarillo on 01-03-2023 Urobilinogen (U) [Mass/Vol] Normal mg/dL Normal [facility] WBC Auto (Bld) [#/Vol]Ordere d By: Monika Camarillo on 01-03-2023 WBC (Bld) [#/Vol] 5.7 10*3/uL 3.8-11.[address] [facility] pH Auto test strip (U)Ordere d By: Monika Camarillo on 01-03-2023 pH (U) 6.5 [pH] 5.0-9.0 [facility] US PREG TVon 12-26-2022 US PREG [...] KENNEDY LEHMAN Date: 2022-12-26 15:07 Normal [facility] PREG QUANT HCGon 12-25-2022 HCG QUANT 46699 mIU/mL Normal [facility] Comment on above: Performed By: #### P REGQNT #### [facility] [address] [place], [place] [address] Dr. Lester Yen HCG RANGE SEE BELOW Normal [facility] Comment on above: Result Comment: 5-50 0.2-1 WEEK 50-500 1-2 WEEKS 100-5,000 2-3 WEEKS 500-10,000 3-4 WEEKS 1,000-50,000 4-5 WEEKS 10,000-100,000 5-6 WEEKS 15,000-200,000 6-8 WEEKS 10,000-100,000 2-3 MONTHS Performed By: #### P REGQNT #### [facility] [address] [place], [place] [address] Dr. Lester Yen Albumin [Mass/volume] in Ser um or PlasmaOrdered By: Monika Camarillo on 08-02-2022 Albumin [Mass/Vol] 3.7 g/dL 3.2-5.[address] [facility] Basophils Auto (Bld) [#/Vol] Ordered By: Monika Camarillo on 08-02-2022 Basophils (Bld) [#/Vol] 0.0 10*3/uL 0.0-0.2 [facility] Basophils/100 WBC Auto (Bld) Ordered By: Monika Camarillo on 08-02-2022 Basophils/100 WBC (Bld) 0.8 % . [facility] Bilirubin Test strip Ql (U)O rdered By: Monika Camarillo on 08-02-2022 Bilirubin Ql (U) Negative Negative [facility] Color Auto (U)Ordered By: Po Camarillo on 08-02-2022 Color (U) Yellow Yellow [facility] Creatinine and Glomerular fi ltration rate.predicted panel (S/P/Bld)Ordered By: Monika Camarillo on 08-02-2022 Creatinine [Mass/Vol] 0.86 mg/dL 0.44-1.03 [facility] Eosinophils Auto (Bld) [#/Vo l]Ordered By: Monika Camarillo on 08-02-2022 Eosinophils (Bld) [#/Vol] 0.4 10*3/uL 0.0-0.45 [facility] Eosinophils/100 WBC Auto (Bl d)Ordered By: Monika Camarillo on 08-02-2022 Eosinophils/100 WBC (Bld) 12.8 % . [facility] Erythrocyte distribution wid th Auto (RBC) [Ratio]Ordered By: Monika Camarillo on 08-02-2022 Erythrocyte distribution width (RBC) [Ratio] 12.7 % 11.9-15.3 [facility] Estimated glomerular filtrat ion rate (GFR) non- AmericanOrdered By: Monika Camarillo on 08-02-2022 GFR/1.73 sq M.predicted among non-blacks MDRD (S/P/Bld) [Vol rate/Area] > 60 mL/Min [facility] Globulin Calc (S) [Mass/Vol] Ordered By: Monika Camarillo on 08-02-2022 Globulin (S) [Mass/Vol] 2.4 g/dL [facility] HCG ( test) IA.rapi d Ql (U)Ordered By: Monika Camarillo on 08-02-2022 HCG ( test) Ql (U) Negative [facility] Hematocrit Auto (Bld) [Volum e fraction]Ordered By: Monika Camarillo on 08-02-2022 Hematocrit (Bld) [Volume fraction] 38.4 % 34.0-46.4 [facility] Hemoglobin [Mass/volume] in BloodOrdered By: Monika Camarillo on 08-02-2022 Hemoglobin (Bld) [Mass/Vol] 13.1 g/dL 11.8-15.4 [facility] Ketones Auto test strip (U) [Mass/Vol]Ordered By: Monika Camarillo on 08-02-2022 Ketones (U) [Mass/Vol] Negative Negative [facility] - Hematology and Cell countsOrdered By: Monika Camarillo on 08-02-2022 Nucleated RBC/100 WBC (Bld) [Ratio] 0.1 % 0-0.5 [facility] Leukocytes [#/volume] in Blo od by Automated countOrdered By: Monika Camarillo on 08-02-2022 WBC (Bld) [#/Vol] 3.4 10*3/uL 4.5-11.[address] [facility] Lymphocytes Auto (Bld) [#/Vo l]Ordered By: Monika Camarillo on 08-02-2022 Lymphocytes (Bld) [#/Vol] 1.0 10*3/uL 1.00-4.8 [facility] Lymphocytes/100 WBC Auto (Bl d)Ordered By: Monika Camarillo on 08-02-2022 Lymphocytes/100 WBC (Bld) 28.2 % . [facility] MCH Auto (RBC) [Entitic mass ]Ordered By: Monika Camarillo on 08-02-2022 MCH (RBC) [Entitic mass] 31.1 pg 24.7-34.3 [facility] MCHC Auto (RBC) [Mass/Vol]Or dered By: Monika Camarillo on 08-02-2022 MCHC (RBC) [Mass/Vol] 34.1 g/dL 32.0-35.0 [facility] MCV Auto (RBC) [Entitic vol] Ordered By: Monika Camarillo on 08-02-2022 MCV (RBC) [Entitic vol] 91.4 fL 80-100 [facility] Monocytes Auto (Bld) [#/Vol] Ordered By: Monika Camarillo on 08-02-2022 Monocytes (Bld) [#/Vol] 0.3 10*3/uL 0.0-0.8 [facility] Monocytes/100 WBC Auto (Bld) Ordered By: Monika Camarillo on 08-02-2022 Monocytes/100 WBC (Bld) 7.7 % . [facility] Neutrophils Auto (Bld) [#/Vo l]Ordered By: Monika Camarillo on 08-02-2022 Neutrophils (Bld) [#/Vol] 1.7 10*3/uL 1.8-7.7 [facility] Neutrophils/100 WBC Auto (Bl d)Ordered By: Monika Camarillo on 08-02-2022 Neutrophils/100 WBC (Bld) 50.5 % . [facility] Nitrite Test strip Ql (U)Ord ered By: Monika Camarillo on 08-02-2022 Nitrite Ql (U) Negative Negative [facility] No Panel InformationOrdered By: Monika Camarillo on 08-02-2022 Estimated GFR () > 60 mL/Min [facility] Comment on above: GFR estimated refere nce range: According to KDOQI guidelines, <60 ml/min/1.73m2 is sufficient to diagnose a patient with chronic kidney disease. Pharmacy Creatinine Clearance (Chem 79.12 [facility] Platelet mean volume Auto (B ld) [Entitic vol]Ordered By: Monika Camarillo on 08-02-2022 Platelet mean volume (Bld) [Entitic vol] 7.8 fL 6.3-10.7 [facility] Platelets Auto (Bld) [#/Vol] Ordered By: Monika Camarillo on 08-02-2022 Platelets (Bld) [#/Vol] 203 10*3/uL 150-450 [facility] Protein Auto test strip (U) [Mass/Vol]Ordered By: Monika Camarillo on 08-02-2022 Protein (U) [Mass/Vol] Negative Negative [facility] Protein [Mass/volume] in Ser um or PlasmaOrdered By: Monika Camarillo on 08-02-2022 Protein [Mass/Vol] 6.1 g/dL 6.1-7.[address] [facility] RBC Auto (Bld) [#/Vol]Ordere d By: Monika Camarillo on 08-02-2022 RBC (Bld) [#/Vol] 4.20 10*6/uL 3.60-5.00 [facility] Serum or plasma alanine gaspar otransferase measurement without P-5'-P (enzymatic activiOrdered By: Monika Camarillo on 08-02-2022 ALT No additional P-5'-P [Catalytic activity/Vol] 13 U/L 10-60 [facility] Serum or plasma albumin/glob ulin mass ratioOrdered By: Monika Camarillo on 08-02-2022 Albumin/Globulin [Mass ratio] 1.5 {ratio} [facility] Serum or plasma alkaline radames sphatase measurement (enzymatic activity/volume)Ordered By: Monika Camarillo on 08-02-2022 ALP [Catalytic activity/Vol] 46 U/L 32-92 [facility] Serum or plasma anion gap de terminationOrdered By: Monika Camarillo on 08-02-2022 Anion gap [Moles/Vol] 11.0 mmol/L 6.0-15.0 [facility] Serum or plasma aspartate am inotransferase measurement (enzymatic activity/volume)Ordered By: Monika Camarillo on 08-02-2022 AST [Catalytic activity/Vol] 16 U/L 10-42 [facility] Serum or plasma calcium unique urement (mass/volume)Ordered By: Monika Camarillo on 08-02-2022 Calcium [Mass/Vol] 9.2 mg/dL 8.2-10.[address] [facility] Serum or plasma chloride debbie surement (moles/volume)Ordered By: Monika Camarillo on 08-02-2022 Chloride [Moles/Vol] 104 mmol/L 95-114 [facility] Serum or plasma glucose unique urement (mass/volume)Ordered By: Moniak Camarillo on 08-02-2022 Glucose [Mass/Vol] 82 mg/dL 70-[address] [facility] Comment on above: ADA recommended refe rence rangeRandom Glucose Reference Range is dependent on time and content of last meal. Glucose of more than 200 mg/dL in a nonstressed, ambulatory subject supports the diagnosis of Diabetes Mellitus. Serum or plasma potassium me asurement (moles/volume)Ordered By: Monika Camarillo on 08-02-2022 Potassium [Moles/Vol] 3.4 mmol/L 3.5-5.1 [facility] Serum or plasma sodium measu rement (moles/volume)Ordered By: Monika Camarillo on 08-02-2022 Sodium [Moles/Vol] 137 mmol/L 136-[address] [facility] Serum or plasma total biliru bin measurement (mass/volume)Ordered By: Monika Camarillo 08-02-2022 Bilirubin [Mass/Vol] 0.6 mg/dL 0.3-1.2 [facility] Serum or plasma total carbon dioxide measurement (moles/volume)Ordered By: Monika Camarillo on 08-02-2022 CO2 [Moles/Vol] 25.4 mmol/L 22.0-30.0 [facility] Serum or plasma urea nitroge n measurement (mass/volume)Ordered By: Monika Camarillo on 08-02-2022 Urea nitrogen [Mass/Vol] 8 mg/dL 06-28 [facility] Specific gravity Auto test s trip (U) [Rel density]Ordered By: Monika Camarillo on 08-02-2022 Specific gravity (U) [Rel density] 1.009 1.001-1.030 [facility] Urine clarity by refractomet ry automatedOrdered By: Monika Camarillo on 08-02-2022 Clarity Refractometry automated (U) Clear Clear [facility] Urine glucose measurement by automated test strip (mass/volume)Ordered By: Monika Camarillo on 08-02-2022 Glucose Auto test strip (U) [Mass/Vol] Normal mg/dL Normal [facility] Urine hemoglobin detection b y automated test stripOrdered By: Monika Camarillo on 08-02-2022 Hemoglobin Auto test strip Ql (U) Negative Negative [facility] Urine lactic acid measuremen tOrdered By: Monika Camarillo on 08-02-2022 Lactate (U) [Moles/Vol] 1.4 mmol/L 0.5-2.2 [facility] Urine leukocyte esterase det ection by automated test stripOrdered By: Monika Camarillo on 08-02-2022 Leukocyte esterase Auto test strip Ql (U) Negative Negative [facility] Urobilinogen Auto test strip (U) [Mass/Vol]Ordered By: Monika Camarillo on 08-02-2022 Urobilinogen (U) [Mass/Vol] Normal mg/dL Normal [facility] pH Auto test strip (U)Ordere d By: Monika Camarillo on 08-02-2022 pH (U) 8.0 [pH] 5.0-9.0 [facility] CBC AUTO DIFFon 07-29-2022 BASO # 0.0 103/ul Normal 0.0-0.1 [facility] Comment on above: Performed By: #### C BC #### [facility] [address] [place] [address] Dr. Lester Yen Basophils/100 WBC (Bld) 1.1 % Normal 0.2-2.0 [facility] Comment on above: Performed By: #### C BC #### [facility] [address] [place] [address] Dr. Lester Yen EO # 0.4 103/ul Normal 0.0-0.7 [facility] Comment on above: Performed By: #### C BC #### [facility] [address] [place] [address] Dr. Lester Yen Eosinophils/100 WBC (Bld) 10.8 % Critically high 0.9-7.0 [facility] Comment on above: Performed By: #### C BC #### [facility] [address] [place] [address] Dr. Lester Yen Erythrocyte distribution width (RBC) [Ratio] 12.0 % Normal 11.0-15.0 [facility] Comment on above: Performed By: #### C BC #### [facility] [address] [place] [address] Dr. Lester Yen Hematocrit (Bld) [Volume fraction] 36.3 % Normal 36.0-48.0 [facility] Comment on above: Performed By: #### C BC #### [facility] [address] [place] [address] Dr. Lester Yen Hemoglobin (Bld) [Mass/Vol] 12.4 g/dL Normal 12.0-16.0 [facility] Comment on above: Performed By: #### C BC #### [facility] [address] [place] [address] Dr. Lester Yen IG # 0.00 10e3/ul Normal 0.00-0.03 [facility] Comment on above: Performed By: #### C BC #### [facility] [address] [place] [address] Dr. Lester Yen IG % 0.0 % Normal 0.0-0.5 [facility] Comment on above: Performed By: #### C BC #### [facility] [address] [place] [address] Dr. Lester Yen LYMPH # 1.6 103/ul Normal 1.2-3.8 [facility] Comment on above: Performed By: #### C BC #### [facility] [address] [place] [address] Dr. Lester Yen Lymphocytes/100 WBC (Bld) 41.6 % Normal 20.5-60.0 [facility] Comment on above: Performed By: #### C BC #### [facility] [address] [place] [address] Dr. Lester Yen MANUAL DIFF REQ NO Normal [facility] Comment on above: Performed By: #### C BC #### [facility] [address] [place] [address] Dr. Lester Yen MCH (RBC) [Entitic mass] 31.9 pg Normal 26.7-34.0 [facility] Comment on above: Performed By: #### C BC #### [facility] [address] [place] [address] Dr. Lester Yen MCHC (RBC) [Mass/Vol] 34.2 g/dL Normal 29.9-35.2 [facility] Comment on above: Performed By: #### C BC #### [facility] [address] [place] [address] Dr. Lester Yen MCV (RBC) [Entitic vol] 93.3 fL Normal 81.0-99.0 [facility] Comment on above: Performed By: #### C BC #### [facility] [address] [place] [address] Dr. Lester Yen MONO # 0.3 103/ul Normal 0.3-0.8 [facility] Comment on above: Performed By: #### C BC #### [facility] [address] [place] [address] Dr. Lester Yen Monocytes/100 WBC (Bld) 8.2 % Normal 1.7-12.0 [facility] Comment on above: Performed By: #### C BC #### [facility] [address] [place] [address] Dr. Lester Yen NEUT # 1.5 103/ul Normal 1.4-6.5 [facility] Comment on above: Performed By: #### C BC #### [facility] [address] [address] [address] Lester Yen Neutrophils/100 WBC (Bld) 38.3 % Critically low 43.0-75.0 [facility] Comment on above: Performed By: #### C BC #### [facility] [address] [address] [address] Lester Yen Platelet mean volume (Bld) [Entitic vol] 9.3 fL Critically low 9.5-13.5 [facility] Comment on above: Performed By: #### C BC #### [facility] [address] [address] [address] Lester Yen PLT 184 103/ul Normal 150-450 [facility] Comment on above: Performed By: #### C BC #### [facility] [address] [address] [address] Lester Yen RBC 3.89 106/ul Critically low 4.20-5.40 [facility] Comment on above: Performed By: #### C BC #### [facility] [address] [address] [address] Lester Yen WBC 3.8 103/ul Critically low 4.0-11.0 [facility] Comment on above: Performed By: #### C BC #### [facility] [address] [address] [address] Lester Yen Covid-19 PCR ([facility])on 07-07 SARS-CoV-2 (COVID-19) RNA JOSE+probe Ql (Unsp spec) Not detected Normal NOT DETECTED [facility] Comment on above: Result Comment: [...] for this test is supported by the [employer] of Health and Human Service's declaration [...] By: #### C ANJU PULIDO AMY #### [facility] [address] [place] [address] Dr. Lester Yen PREG QUANT HCGon 07-29-2022 HCG QUANT 1 mIU/mL Normal [facility] Comment on above: Performed By: #### C ANJU PULIDO AMY #### [facility] [address] [place] [address] Dr. Lester Yen HCG RANGE SEE BELOW Normal [facility] Comment on above: Result Comment: 5-50 0.2-1 WEEK 50-500 1-2 WEEKS 100-5,000 2-3 WEEKS 500-10,000 3-4 WEEKS 1,000-50,000 4-5 WEEKS 10,000-100,000 5-6 WEEKS 15,000-200,000 6-8 WEEKS 10,000-100,000 2-3 MONTHS Performed By: #### C ANJU PULIDO AMY #### [facility] [address] [place] [address] Dr. Lester Yen HIV 1 and HIV-2 antibody ass ay with HIV-1 p24 antigen detectionOrdered By: Dominic Hester on 06-18-2022 HIV 1+2 Ab+HIV1 p24 Ag IA Ql Non-Reactive Non Reactive [facility] Comment on above: HIV NegativeHIV-1/HI V-2 antibodies and HIV-1 p24 antigen were NOTdetected. There is no laboratory evidence of HIV infection.Performed at: [facility] [employer] [id number] Director: Lebron Manzo PhD, Phone: [phone] Hepatitis B virus surface Ag [Presence] in Serum or Plasma by ImmunoassayOrdered By: Dominic Hester on 06-18-2022 HBV surface Ag IA Ql Negative Negative [facility] Hepatitis C virus RNA [Units /volume] (viral load) in Serum or Plasma by JOSE with probOrdered By: Dominic Hester on 06-18-2022 HCV RNA JOSE+probe Qn N/A [facility] Hepatitis C virus RNA [log u nits/volume] (viral load) in Serum or Plasma by JOSE withOrdered By: Dominic Hester on 06-18-2022 HCV RNA JOSE+probe [Log units/Vol] N/A [facility] No Panel InformationOrdered By: Dominic Hester on 06-18-2022 Hepatitis A IgM Antibody Negative Negative [facility] Hepatitis B Core IgM Antibody Negative Negative [facility] Hepatitis C Interpretation See comment . [facility] Comment on above: NegativeNot infected with HCV, unless recent infection issuspected or other evidence exists to indicate HCVinfection.Performed at: [email or web address] [facility] [address] [id number] Director: Lebron Manzo PhD, Phone: [phone] Hepatitis C RNA Quantitative N/A [facility] Reagin Ab [Presence] in Seru m by RPROrdered By: Dominic Hester on 06-18-2022 Reagin Ab RPR Ql (S) Non-Reactive Non Reactive [facility] Comment on above: Performed at: [facility] [address] [id number] Director: Lebron Manzo PhD, Phone: [phone] Serum or plasma hepatitis C virus antibody signal/cutoff ratio by immunoassay (relatiOrdered By: Dominic Hester on 06-18-2022 HCV Ab Signal/Cutoff IA [Rel units/Vol] <0.1 s/co ratio 0.0-0.9 [facility] CHLAMYDIA/GONOCOCCUS JOSE (SW AB/URINE/PAPon 06-04-2022 Chlamydia trachomatis, JOSE Negative Normal Negative [facility] Comment on above: Performed By: #### C T/NGNA #### [facility] [address] [address] [address] Lester Yen Neisseria gonorrhoeae, JOSE Negative Normal Negative [facility] Comment on above: Performed By: #### C T/NGNA #### [facility] [address] [place] [address] Dr. Lester Yen VAGINITIS/VAGINOSIS DNA PROB Davide 06-02-2022 Tigist species Negative Normal Negative [facility] Comment on above: Performed By: #### C MP LIPA, SYLVIA #### [facility] [address] [place] [address] Dr. Lester Yen Gardnerella vaginalis Negative Normal Negative [facility] Comment on above: Performed By: #### C MP, LIPA, SYLVIA #### [facility] [address] [place] [address] Dr. Lester Yen Trichomonas vaginalis Negative Normal Negative [facility] Comment on above: Performed By: #### C MP LIPA, SYLVIA #### [facility] [address] [place] [address] Dr. Lester Yen AMYLASEon 05-28-2022 Amylase [Catalytic activity/Vol] 48 U/L Normal 25-115 [facility] Comment on above: Performed By: #### C MP LIPA, SYLVIA #### [facility] [address] [place] [address] Dr. Lester Yen CBC AUTO DIFFon 05-28-2022 BASO # 0.0 103/ul Normal 0.0-0.1 [facility] Comment on above: Performed By: #### C BC #### [facility] [address] [place] [address] Dr. Lester Yen Basophils/100 WBC (Bld) 0.5 % Normal 0.2-2.0 [facility] Comment on above: Performed By: #### C BC #### [facility] [address] [place] [address] Dr. Lester Yen EO # 0.3 103/ul Normal 0.0-0.7 [facility] Comment on above: Performed By: #### C BC #### [facility] [address] [place] [address] Dr. Lester Yen Eosinophils/100 WBC (Bld) 5.7 % Normal 0.9-7.0 [facility] Comment on above: Performed By: #### C BC #### [facility] [address] [address] [address] Lester Yen Erythrocyte distribution width (RBC) [Ratio] 12.6 % Normal 11.0-15.0 [facility] Comment on above: Performed By: #### C BC #### [facility] [address] [address] [address] Lester Yen Hematocrit (Bld) [Volume fraction] 39.5 % Normal 36.0-48.0 [facility] Comment on above: Performed By: #### C BC #### [facility] [address] [place] [address] Dr. Lester Yen Hemoglobin (Bld) [Mass/Vol] 13.2 g/dL Normal 12.0-16.0 [facility] Comment on above: Performed By: #### C BC #### [facility] [address] [place] [address] Dr. Lester Yen IG # 0.01 10e3/ul Normal 0.00-0.03 [facility] Comment on above: Performed By: #### C BC #### [facility] [address] [place] [address] Dr. Lester Yen IG % 0.2 % Normal 0.0-0.5 [facility] Comment on above: Performed By: #### C BC #### [facility] [address] [place] [address] Dr. Lester Yen LYMPH # 1.1 103/ul Critically low 1.2-3.8 [facility] Comment on above: Performed By: #### C BC #### [facility] [address] [place] [address] Dr. Lester Yen Lymphocytes/100 WBC (Bld) 18.9 % Critically low 20.5-60.0 [facility] Comment on above: Performed By: #### C BC #### [facility] [address] [place] [address] Dr. Lester Yen MANUAL DIFF REQ NO Normal [facility] Comment on above: Performed By: #### C BC #### [facility] [address] [place] [address] Dr. Lester Yen MCH (RBC) [Entitic mass] 31.1 pg Normal 26.7-34.0 [facility] Comment on above: Performed By: #### C BC #### [facility] [address] [place] [address] Dr. Lester Yen MCHC (RBC) [Mass/Vol] 33.4 g/dL Normal 29.9-35.2 [facility] Comment on above: Performed By: #### C BC #### [facility] [address] [place] [address] Dr. Lester Yen MCV (RBC) [Entitic vol] 93.2 fL Normal 81.0-99.0 [facility] Comment on above: Performed By: #### C BC #### [facility] [address] [place] [address] Dr. Lester Yen MONO # 0.5 103/ul Normal 0.3-0.8 [facility] Comment on above: Performed By: #### C BC #### [facility] [address] [place] [address] Dr. Lester Yen Monocytes/100 WBC (Bld) 8.4 % Normal 1.7-12.0 [facility] Comment on above: Performed By: #### C BC #### [facility] [address] [place] [address] Dr. Lester Yen NEUT # 3.9 103/ul Normal 1.4-6.5 [facility] Comment on above: Performed By: #### C BC #### [facility] [address] [place] [address] Dr. Lester Yen Neutrophils/100 WBC (Bld) 66.3 % Normal 43.0-75.0 [facility] Comment on above: Performed By: #### C BC #### [facility] [address] [place] [address] Dr. Lester Yen Platelet mean volume (Bld) [Entitic vol] 9.8 fL Normal 9.5-13.5 [facility] Comment on above: Performed By: #### C BC #### [facility] [address] [place], [place] [address] Dr. Lester Yen PLT 186 103/ul Normal 150-[address] [facility] Comment on above: Performed By: #### C BC #### [facility] [address] [place], [place] [address] Dr. Lester Yen RBC 4.24 106/ul Normal 4.20-5.[address] [facility] Comment on above: Performed By: #### C BC #### [facility] [address] [place], [place] [address] Dr. Lester Yen WBC 5.9 103/ul Normal 4.0-11.0 [facility] Comment on above: Performed By: #### C BC #### [facility] [id number] Lester Yen CT ABD/PELV W CONon [...] TOR JIN Date: 2022-05-28 12:57 Normal [facility] ER URINE PROFILEon 2 Bilirubin Ql (U) Negative Normal NEGATIVE [facility] Comment on above: Performed By: #### E RUR, PREGU #### [facility] [address] [place] [address] Dr. Lester Yen Clarity (U) CLEAR Normal CLEAR [facility] Comment on above: Performed By: #### E RUR, PREGU #### [facility] [address] [place] [address] Dr. Lester Yen Color (U) LT. YELLOW Normal YELLOW [facility] Comment on above: Performed By: #### E RUR, PREGU #### [facility] [address] [place] [address] Dr. Lester Yen ERUAHMarianela A micrscopic examination will be performed if indicated. Normal [facility] Comment on above: Performed By: #### E RUR, PREGU #### [facility] [address] [place] [address] Dr. Lester Yen Glucose Ql (U) Negative Normal NEGATIVE [facility] Comment on above: Performed By: #### E RUR, PREGU #### [facility] [address] [place] [address] Dr. Lester Yen Hemoglobin Ql (U) Negative Normal NEGATIVE [facility] Comment on above: Performed By: #### E RUR, PREGU #### [facility] [address] [place] [address] Dr. Lester Yen Ketones Ql (U) Negative Normal NEGATIVE [facility] Comment on above: Performed By: #### E RUR, PREGU #### [facility] [address] [place] [address] Dr. Lester Yen LEUKOCYTES Negative Normal NEGATIVE [facility] Comment on above: Performed By: #### E RUR, PREGU #### [facility] [address] [place] [address] Dr. Lester Yen Nitrite Ql (U) Negative Normal NEGATIVE [facility] Comment on above: Performed By: #### E RUR, PREGU #### [facility] [address] [place] [address] Dr. Lester Yen pH (U) 6.0 [pH] Normal 5-[address] [facility] Comment on above: Performed By: #### E RUR, PREGU #### [facility] [address] [place] [address] Dr. Lester Yen SPEC GRAVITY <=1.005 Abnormal 1.005-<=1.02 5 [facility] Comment on above: Performed By: #### E MANUELR, PREGU #### [facility] [address] [place] [address] Dr. Lester Yen UA PROTEIN Negative Normal NEGATIVE/ TRACE [facility] Comment on above: Performed By: #### Darian RUR, PREGU #### [facility] [address] [place] [address] Dr. Lester Yen UR MICRO IND NOT INDICATED Normal [facility] Comment on above: Performed By: #### E RUR, PREGU #### [facility] [address] [place] [address] Dr. Lester Yen Urobilinogen Qn (U) 0.2 {Olivier'U}/dL Normal 0.2 - 1. 0 [facility] Comment on above: Performed By: #### E RUR, PREGU #### [facility] [address] [place] [address] Dr. Lester Yen LIPASEon 05-28-2022 Lipase [Catalytic activity/Vol] 96.0 U/L Normal 73.0-393.[address] [facility] Comment on above: Performed By: #### C MP, LIPA, SYLVIA #### [facility] [address] [place] [address] Dr. Lester Yen URon 05-28-2022 , QUAL Negative Normal NEGATIVE [facility] Comment on above: Performed By: #### E RUR, PREGU #### [facility] [address] [place] [address] Dr. Lester Yen PROF 14(COMP METB)on 022 Albumin [Mass/Vol] 4.0 g/dL Normal 3.4-5.0 [facility] Comment on above: Performed By: #### C MP, LIPA, SYLVIA #### [facility] [address] [place] [address] Dr. Lester Yen Albumin/Globulin [Mass ratio] 1.4 {ratio} Normal [facility] Comment on above: Performed By: #### C MP, LIPA, SYLVIA #### [facility] [address] [place] [address] Dr. Lester Yen ALP [Catalytic activity/Vol] 56 U/L Normal 46-116 [facility] Comment on above: Performed By: #### C MP, LIPA, SYLVIA #### [facility] [address] [place] [address] Dr. Lester Yen ALT [Catalytic activity/Vol] 14 U/L Normal 14-59 [facility] Comment on above: Performed By: #### C MP, LIPA, SYLVIA #### [facility] [address] [place] [address] Dr. Lester Yen Anion gap [Moles/Vol] 13.3 mmol/L Normal [facility] Comment on above: Performed By: #### C MP, LIPA, SYLVIA #### [facility] [address] [place] [address] Dr. Lester Yen AST [Catalytic activity/Vol] 11 U/L Critically low 15-37 [facility] Comment on above: Performed By: #### C MP, LIPA, SYLVIA #### [facility] [address] [place] [address] Dr. Lester Yen Bilirubin [Mass/Vol] 0.5 mg/dL Normal 0.2-1.0 [facility] Comment on above: Performed By: #### C MP, LIPA, SYLVIA #### [facility] [address] [place] [address] Dr. Lester Yen Calcium [Mass/Vol] 8.9 mg/dL Normal 8.5-10.1 [facility] [facility] Comment on above: Performed By: #### C ANJU PULIDO AMY #### [facility] [address] [address] [address] Lester Yen Chloride [Moles/Vol] 105 mmol/L Normal 98-107 [facility] Comment on above: Performed By: #### C ANJU PULIDO, SYLVIA #### [facility] [address] [address] [address] Lester Yen CO2 [Moles/Vol] 24.4 mmol/L Normal 21.0-32.0 [facility] Comment on above: Performed By: #### C ANJU PULIDO AMY #### [facility] [address] [place] [address] Dr. Lester Yen Creatinine [Mass/Vol] 0.88 mg/dL Normal 0.55-1.02 [facility] Comment on above: Performed By: #### C ANJU PULIDO, SYLVIA #### [facility] [address] [place] [address] Dr. Lseter Yen EGFR-AF GREEK >60 Normal >=60 [facility] Comment on above: Performed By: #### C ANJU PULIDO, SYLVIA #### [facility] [address] [place] [address] Dr. Lester Yen EGFR-NON AF GREEK >60 Normal >=60 [facility] Comment on above: Performed By: #### C ANJU PULIDO, SYLVIA #### [facility] [address] [place] [address] Dr. Lester Yen Globulin (S) [Mass/Vol] 2.8 g/dL Normal [facility] Comment on above: Performed By: #### C ANJU PULIDO, SYLVIA #### [facility] [address] [place] [address] Dr. Lester Yen Glucose [Mass/Vol] 100 mg/dL Normal 74-106 [facility] Comment on above: Performed By: #### C ANJU PULIDO, SYLVIA #### [facility] [address] [address] [address] Lester Yen Potassium [Moles/Vol] 3.7 mmol/L Normal 3.5-5.1 [facility] Comment on above: Performed By: #### C ANJU PULIDO, SYLVIA #### [facility] [address] [address] [address] Lester Yen Protein [Mass/Vol] 6.8 g/dL Normal 6.4-8.2 [facility] Comment on above: Performed By: #### C ANJU PULIDO, SYLVIA #### [facility] [address] [address] [address] Lester Yen Sodium [Moles/Vol] 139 mmol/L Normal 136-145 [facility] Comment on above: Performed By: #### C ANJU PULIDO, SYLVIA #### [facility] [address] [place] [address] Dr. Lester Yen Urea nitrogen [Mass/Vol] 13.0 mg/dL Normal 7.0-18.0 [facility] Comment on above: Performed By: #### C ANJU PULIDO, SYLVIA #### [facility] [address] [place] [address] Dr. Lester Yen Urea nitrogen/Creatinine [Mass ratio] 14.8 mg/mg Normal [facility] Comment on above: Performed By: #### C ANJU PULIDO, SYLVIA #### [facility] [address] [place] [address] Dr. Lester Yen Skilled Nursing Documentson 04-19-2021 Skilled Nursing Documents [id number] [id number]:127 Normal [facility] Skilled Nursing Documentson 06-06-2020 Skilled Nursing Documents Skilled Nursing Nurse Visit 14 day Health Appraisal Date [...] forearm Date vial opened: 05/18/2020 Lot number: [id number] Expiration date: 01/24 PPD Comments: PPD Results [...] wish to attend AA Meetings? _ sure Skilled Nursing Assessment 05/31/20 15:54:00 Skilled Nursing Assessment Entered On: 05/31/2020 15:56 EDT Performed [...] Pressure Posi (more content not included)... Normal [facility] Skilled Nursing Documentson 05-29-2020 Skilled Nursing Documents [id number]#1.00CD:127 Normal [facility] Chlam/GC/Trich,NAAon 020 C. trachomatis rRNA JOSE+probe Ql (Unsp spec) Negative Invalid Interpretation Code Negative [facility] Comment on above: Performed By: #### 1 [id number] #### [facility] [address] [place] [address] N. gonorrhoeae rRNA JOSE+probe Ql (Unsp spec) Negative Invalid Interpretation Code Negative [facility] Comment on above: Performed By: #### 1 [id number] #### [facility] [address] [place] [address] T. vaginalis DNA JOSE+probe Ql (Unsp spec) Negative Invalid Interpretation Code Negative [facility] Comment on above: Result Comment: Perf ormed at: =G [facility] [address] [place], [place] [id number] MD Jama Valdivia Performed By: #### 1 [id number] #### [facility] [address] [place] [address] Coding Summary.on 05-15-2020 Coding Summary. CODING DATE: 05/15/2020 FINAL [facility] STATUS: Home (Routine DC) PAYOR: Medicaid [...] Revised Date Saved: 05/15/2020 10:37 am Normal [facility] Amylaseon 05-14-2020 Amylase [Catalytic activity/Vol] 58 U/L Normal 25-157 [facility] Comment on above: Performed By: #### 2 179149, 71761074, 6862477, 9719934, 0368384, 4903578, 7198345 ####[facility] [address] [place] [address] Auto Diffon 05-14-2020 Basophils/100 WBC (Bld) 0.5 % Normal 0.0-2.0 [facility] Comment on above: Order Comment: Order Added by Discern Expert. Performed By: #### 2 254539, 71535110, 7186567, 6464223, 7265204, 7443059, 7034789 ####[facility] [address] [place] [address] Basophils/Leukocytes Auto (Bld) [Pure # fraction] 0.0 E9/L Normal 0.0-0.2 [facility] Comment on above: Order Comment: Order Added by Discern Expert. Performed By: #### 2 974984, 39356083, 6845663, 9164818, 5194691, 7482088, 3466397 ####[facility] [address] [place] [address] Eosinophils/100 WBC (Bld) 8.4 % High 0.0-8.0 [facility] Comment on above: Order Comment: Order Added by Discern Expert. Performed By: #### 2 789598, 52533612, 7367816, 2025530, 0917290, 4809642, 3331984 ####[facility] [address] [place] [address] Eosinophils/Leukocytes Auto (Bld) [Pure # fraction] 0.5 E9/L Normal 0.0-0.5 [facility] Comment on above: Order Comment: Order Added by Discern Expert. Performed By: #### 2 017160, 63554220, 1280614, 1292766, 3097469, 2833509, 0072073 ####[address] [place] [address] Lymphocytes/100 WBC (Bld) 31.4 % Normal 14.0-50.0 [facility] Comment on above: Order Comment: Order Added by Discern Expert. Performed By: #### 2 622869, 19333476, 0321642, 6234642, 9603113, 1327389, 9417163 ####[facility] [address] [place] [address] Lymphocytes/Leukocytes Auto (Bld) [Pure # fraction] 1.8 E9/L Normal 1.0-4.0 [facility] Comment on above: Order Comment: Order Added by Discern Expert. Performed By: #### 2 626422, 78881077, 8999038, 5654408, 3927169, 1055364, 3866541 ####[facility] [address] [place] [address] Monocytes/100 WBC (Bld) 8.2 % Normal 4.0-14.0 [facility] Comment on above: Order Comment: Order Added by Discern Expert. Performed By: #### 2 229223, 49339961, 3437583, 9745537, 2651852, 1083342, 0269788 ####[facility] [address] [place] [address] Monocytes/Leukocytes Auto (Bld) [Pure # fraction] 0.5 E9/L Normal 0.2-1.0 [facility] Comment on above: Order Comment: Order Added by Discern Expert. Performed By: #### 2 097523, 59312294, 9863957, 5672752, 2588545, 5633317, 2045812 ####[facility] [address] [place] [address] Neutrophils/100 WBC (Bld) 51.5 % Normal 36.0-75.0 [facility] Comment on above: Order Comment: Order Added by Discern Expert. Performed By: #### 2 828899, 01863470, 9686472, 9848529, 8167329, 2898536, 5324171 ####[facility] [address] [place] [address] Neutrophils/Leukocytes Auto (Bld) [Pure # fraction] 2.9 E9/L Normal 2.0-7.5 [facility] Comment on above: Order Comment: Order Added by Discern Expert. Performed By: #### 2 149434, 50723142, 5083295, 0176644, 6455145, 8348381, 9312205 ####[facility] [address] [place] [address] BMP 05-14-2020 Creatinine [Mass/Vol] 0.9 mg/dL Normal 0.5-1.3 [facility] Comment on above: Performed By: #### 2 666686, 45608662, 5479187, 1849923, 6652130, 9642981, 2744639 ####[facility] [address] [place] [address] Urea nitrogen [Mass/Vol] 14 mg/dL Normal 5-21 [facility] Comment on above: Performed By: #### 2 053497, 86001381, 8602858, 3423544, 9041532, 3464291, 6046196 ####[facility] [address] [place] [address] Urea nitrogen/Creatinine [Mass ratio] 16 No Units Normal 10-20 [facility] Comment on above: Performed By: #### 2 924640, 10423583, 1101901, 2704850, 6075532, 7697353, 4061547 ####[facility] [address] [place] [address] Anion gap [Moles/Vol] 12 mmol/L Normal 6-16 [facility] Comment on above: Performed By: #### 2 768494, 41287206, 0723634, 2235537, 2260102, 4930719, 9923712 ####[facility] [address] [place] [address] Calcium [Mass/Vol] 9.3 mg/dL Normal 8.9-11.1 [facility] Comment on above: Performed By: #### 2 962887, 38452501, 1599007, 6432907, 2792563, 4492356, 3400804 ####[facility] [address] [place] [address] Chloride [Moles/Vol] 103 mmol/L Normal 101-111 [facility] Comment on above: Performed By: #### 2 345128, 77542178, 6375544, 4692234, 6931302, 7828563, 6181883 ####[facility] [address] [place] [address] CO2 [Moles/Vol] 27 mmol/L Normal 21-31 [facility] Comment on above: Performed By: #### 2 161321, 67267270, 5571595, 5688603, 9252427, 5102545, 4709240 ####[facility] [address] [place] [address] Glucose [Mass/Vol] 89 mg/dL Normal 55-199 [facility] Comment on above: Result Comment: If t his glucose result represents a fasting glucose, interpretation should refer to the following reference range: 55-99 mg/dL Performed By: #### 2 850316, 38425337, 2339759, 7040612, 7597409, 4859623, 3720205 ####[facility] [address] [place] [address] Potassium [Moles/Vol] 3.8 mmol/L Normal 3.5-5.3 [facility] Comment on above: Performed By: #### 2 183283, 14336322, 1775764, 7356533, 6046674, 0954290, 5396762 ####[facility] [address] [place] [address] Sodium [Moles/Vol] 138 mmol/L Normal 135-145 [facility] Comment on above: Performed By: #### 2 302415, 19237966, 3601615, 9593578, 7348079, 3207065, 1440609 ####[facility] [address] [place] [address] CBC w/ Auto Diffon 0 Erythrocyte distribution width (RBC) [Ratio] 12.7 % Normal 10.9-14.2 [facility] Comment on above: Performed By: #### 2 275442, 25256638, 8899801, 3810979, 1986090, 9054498, 1114099 ####[address] [address] Hematocrit (Bld) [Volume fraction] 41.7 % Normal 34.0-46.0 [facility] Comment on above: Performed By: #### 2 145530, 47944397, 8322863, 6542004, 6533487, 7181020, 7600521 ####[address] [address] Hemoglobin (Bld) [Mass/Vol] 13.9 g/dL Normal 12.0-16.0 [facility] Comment on above: Performed By: #### 2 878828, 25055706, 8291843, 0121961, 8469496, 9813303, 4823620 ####[address] [address] MCH (RBC) [Entitic mass] 30.8 pg Normal 27.0-34.0 [facility] Comment on above: Performed By: #### 2 367752, 96509012, 5621240, 5776433, 1347008, 9919633, 1532867 ####[facility] [address] [place] [address] MCHC (RBC) [Mass/Vol] 33.3 g/dL Normal 31.4-36.0 [facility] Comment on above: Performed By: #### 2 161215, 65790477, 2644786, 3750130, 1992886, 1888126, 3715699 ####[address] [address] MCV (RBC) [Entitic vol] 92.5 fL Normal 80.0-100.0 F [facility] Comment on above: Performed By: #### 2 416848, 76170955, 8109539, 9444924, 9769865, 2218816, 5230369 ####[address] [address] Platelet mean volume (Bld) [Entitic vol] 8.2 fL Normal 6.4-10.8 [facility] Comment on above: Performed By: #### 2 606081, 86269900, 4784801, 2472887, 3726186, 6300377, 2547799 ####[address] [address] Platelets (Bld) [#/Vol] 230.0 E9/L Normal 150.0-500.0 [facility] Comment on above: Performed By: #### 2 977632, 77627748, 5954360, 9787280, 5968412, 8722986, 4500120 ####[address] [address] RBC (Bld) [#/Vol] 4.5 E12/L Normal 4.3-5.9 [facility] Comment on above: Performed By: #### 2 671957, 22230013, 2482229, 8975515, 4186534, 3885003, 0634939 ####[address] [address] WBC corrected for nucl RBC Auto (Bld) [#/Vol] 5.7 E9/L Normal 4.0-11.0 [facility] Comment on above: Performed By: #### 2 908951, 83289706, 4131442, 1852576, 3523232, 2642967, 9492833 ####[facility] [address] [place] [address] Discharge Instructionson Discharge Instructions [id number] #[id number]:127 Normal [facility] ED Clinical Summaryon 2019 ED Clinical Summary [address] [address] ED Clinical Summary Person Information Name: BREANA PICKETT Viv/[facility] Age: 29 Years : 1990 Sex: Female Language: Wallisian PCP: Mica CARLTON MD Marital Status: Single Phone: [phone] Visit Id: Visit Reason: Abdominal pain; STOMACH [...] 05/14/2020 04:35:55 05/14/2020 04:35:55 05/14/2020 04:35:55 ADDRESS: [address] [place] [address] [facility] DOC NOTES: MEDICAL INFORMATION: Prescriptions Given: New Medications Printed Prescriptions levofloxacin (Levaquin 500 mg Tab) 1 Tablets By Mouth every day. Refills: 0. Medications to Continue with No Changes Other Medications escitalopram (Lexapro 10 mg Tab) 1 Tablets By Mouth every day. PATIENT EDUCATION INFORMATION: Instructions: Pelvic Pain, Female, Fmzk-yz-Zscf Follow up: With: Address: When: Mica CARLTON [address] [place], [place] [address], [place] [address] Business (1) In 3 days 05/17/2020 Comments: Followup with your zigzag stitcher next week DIAGNOSIS: 1:Abdominal pain in female; Pelvic pain Normal [facility] ED Note-Nursingon 08-09-2020 ED Note-Nursing Dr. Renner aware of patient c/o generalized abd pain, rates at 7/10. Order received for [place], 2 tabs, one-time only. Normal [facility] ED Note-Nursing Dr. Renner at bedside for results review. Normal [facility] ED Note-Nursing Patient to u/s Normal [facility] ED Note-Nursing Dr. Renner at bedside for results update. Normal [facility] ED Note-Nursing Patient to xray. Normal [facility] her [facility] ED Note-Nursing Dr. Renner at bedside for assessment. Normal [facility] ED Note-Physicianon 05-14-20 ED Note-Physician Basic Information Time Seen: Lucio Rennre MD 05/13/2020 22:26 Chief Complaint C/o abd [...] infection and recommend she followup with her zigzag stitcher Assessment/Plan 1. Abdominal pain in female (R10.9: [...] 22:35:00) Lymph Auto: 31.4 % (05/13/20 22:35:00) Tyrrell Auto: 8.2 % (05/13/20 22:35:00) Eos Auto: 8.4 % High (05/13/20 22:35:00) Basophil Auto: 0.5 % (05/13/20 22:35:00) Neutro Absolute: 2.9 E9/L (05/13/20 22:35:00) Lymph Absolute: 1.8 E9/L (05/13/20 22:35:00) Tyrrell Absolute: 0.5 E9/L (05/13/20 22:35:00) Eos Absolute: 0.5 E9/L (05/13/20 (more content not included)... Normal [facility] Comment on above: Result Comment: Adolfo erlinda [...] Document Reviewed: 01/11/2013 ExitCare? Patient Information ?2014 [employer]. This information is not intended to replace advice given to you by your health care provider. Make sure you discuss any questions you have with your health care provider. Normal [facility] ED Patient Summaryon 020 ED Patient Summary [address] [address] Patient Discharge Instructions Person Information Name: BREANA PICKETT Age: 29 Years Arrival Date: 05/13/2020 21:43:46 Discharge Diagnosis: 1:Abdominal pain in female; Pelvic pain Primary Care Physician: Mica CARLTON MD Provider Information Primary Provider: Lucio Renner MD Advanced Pie Crust Mixer:None The exam and treatment you received in the Emergency Department were for an urgent problem and are not intended as complete care. It is important that you follow up with a doctor, nurse practitioner, or physician?s senior office assistant for ongoing care. If your symptoms [...] Follow-up Instructions: With: Address: When: Mica CARLTON [address] [place], [place] [id number] Business (1) In 3 days 05/17/2020 Comments: Followup with your zigzag stitcher next week In the event that this physician does not participate in your insurance network, please consult with your insurance company to find a nearby participating provider. Patient Education Materials: Pelvic Pain, Female, Zino-hv-Lhaz A MESSAGE TO ALL PATIENTS REGARDING OPIOIDS PRESCRIPTION OPIOIDS: WHAT YOU NEED TO KNOW Prescription opioids can be used to help relieve gfqhqcfx-tx-iywlfi pain and are often prescribed following a [...] tell your (more content not included)... Normal [facility] Hep Func Panelon 05-14-2020 Bilirubin.indirect [Mass or moles/Vol] UTC Abnormal 0.1-0.9 [facility] Comment on above: Result Comment: Resu lt verified by Discern Rule. Performed result UT (Unable to Calculate) was sent as an Alpha code due the inability to calculate a valid numeric value. Performed By: #### 2 381041, 38975536, 7942178, 6529576, 1311118, 3791911, 0956238 ####[facility] [address] [place] [address] Albumin [Mass/Vol] 4.2 g/dL Normal 3.3-5.0 [facility] Comment on above: Performed By: #### 2 908233, 36698643, 9078763, 1580689, 2336499, 3092929, 3335141 ####[facility] [address] [place] [address] Albumin/Globulin (S) [Mass conc ratio] 1.4 Normal 1.1-2.2 [facility] Comment on above: Performed By: #### 2 047763, 59434949, 7303937, 1890184, 8876995, 5047692, 6600429 ####[facility] [address] [place] [address] ALP [Catalytic activity/Vol] 62 Int._Unit/L Normal 21-98 [facility] Comment on above: Performed By: #### 2 315190, 08236261, 2421394, 4888141, 5868294, 1089618, 7089141 ####[facility] [address] [place] [address] ALT No additional P-5'-P [Catalytic activity/Vol] 15 Int._Unit/L Normal 6-46 [facility] Comment on above: Performed By: #### 2 248452, 86970410, 7527471, 2319493, 8415270, 3638683, 3389773 ####[facility] [address] [place] [address] AST [Catalytic activity/Vol] 15 Int._Unit/L Normal 5-43 [facility] Comment on above: Performed By: #### 2 830514, 89404526, 4243279, 9740491, 5960627, 9523459, 2459518 ####[address] [place] [address] Bilirubin [Mass/Vol] 0.8 mg/dL Normal 0.0-1.1 [facility] Comment on above: Performed By: #### 2 023635, 70485342, 9727296, 7257037, 0125527, 4916549, 8744286 ####[facility] [address] [place] [address] Bilirubin.direct [Mass/Vol] mg/dL Normal 0.1-0.4 [facility] Comment on above: Performed By: #### 2 371401, 96601742, 4898517, 5209374, 5918025, 0052723, 3403421 ####[address] [address] Globulin (S) [Mass/Vol] 2.9 g/dL Normal 1.4-4.0 F [facility] Comment on above: Performed By: #### 2 380789, 81770120, 2099888, 9400427, 3282863, 5946296, 1688400 ####[facility] [address] [place] [address] Protein [Mass/Vol] 7.1 g/dL Normal 6.0-7.8 [facility] Comment on above: Performed By: #### 2 875241, 09217171, 8696171, 2441758, 8006721, 2199841, 6887432 ####[facility] [address] [place] [address] Lipase Levelon 05-14-2020 Lipase [Catalytic activity/Vol] 36 U/L Normal 13-58 [facility] Comment on above: Performed By: #### 2 906651, 63578583, 8707730, 8383337, 7691103, 5311575, 4087746 ####[facility] [address] [place] [address] U BetaHcg Qualon 05-14-2020 HCG.beta subunit (U) [Moles/Vol] Negative Normal [facility] Comment on above: Performed By: #### 2 2551142, 04011287 #### [facility] [address] [place] [address] UA With Cult Reflexon 2019 Bilirubin Ql (U) Negative Normal Negative [facility] Comment on above: Performed By: #### 2 8166176, 05326950 #### [facility] [address] [place] [address] Clarity (U) SL CLOUDY Abnormal Clear [facility] Comment on above: Performed By: #### 2 6328229, 89699892 #### [facility] [address] [place] [address] Color (U) YELLOW Normal Yellow [facility] Comment on above: Performed By: #### 2 5564134, 25408858 #### [facility] [address] [place] [address] Epithelial cells.squamous LM.HPF (Urine sed) [#/Area] 3-4 Normal 0-2 [facility] Comment on above: Performed By: #### 2 8901985, 33398383 #### [facility] [address] [place] [address] Glucose Test strip (U) [Mass/Vol] Negative Normal Negative [facility] Comment on above: Performed By: #### 2 5826563, 28617990 #### [facility] [address] [place] [address] Hemoglobin Ql (U) Negative Normal Negative [facility] Comment on above: Performed By: #### 2 8032364, 25559549 #### [facility] [address] [place] [address] Ketones (U) [Mass/Vol] TRACE Abnormal Negative [facility] Comment on above: Performed By: #### 2 7222373, 44030890 #### [facility] [address] [place] [address] Bondurant.plasma/Bondurant. RBC (Bld) [Mass ratio] 0-3 Normal 0-3 [facility] Comment on above: Performed By: #### 2 5630274, 61131920 #### [facility] [address] [place] [address] Nitrite Ql (U) Negative Normal Negative [facility] Comment on above: Performed By: #### 2 8073802, 26207983 #### [facility] [address] [place] [address] pH (U) 7.0 [pH] Invalid Interpretation Code 5.0-9.0 [facility] Comment on above: Performed By: #### 2 2402007, 84282129 #### [facility] [address] [place] [address] Protein (U) [Mass/Vol] Negative Normal Negative [facility] Comment on above: Performed By: #### 2 1034935, 39332042 #### [facility] [address] [place] [address] Specific gravity (U) [Rel density] 1.020 Invalid Interpretation Code 1.005-1.030 [facility] Comment on above: Performed By: #### 2 9481813, 12707504 #### [facility] [address] [place] [address] UA Spec Desc Clean Catch Normal [facility] Comment on above: Performed By: #### 2 7778073, 00177011 #### [facility] [address] [place] [address] Urobilinogen Qn (U) 0.2 {Olivier'U}/dL Normal 0.0-1.0 [facility] Comment on above: Performed By: #### 2 4184529, 39270673 #### [facility] [address] [place] [address] WBC Auto Ql (U) Negative Normal Negative [facility] Comment on above: Performed By: #### 2 6489829, 74404374 #### [facility] [address] [place] [address] WBC LM.HPF (Urine sed) [#/Area] 0-5 Normal 0-5 [facility] Comment on above: Performed By: #### 2 0497889, 21163242 #### [facility] [address] [place] [address] US Pelvis Non-OB Completeon 05-14-2020 US Pelvis [...] TUCKER Technical Comments Transabdominal Ultrasound Performed Normal [facility] XR Abdomen Series w/ Chest 1 [...] DO Transcribed by: GABRIELE Technologist: TERESA Normal [facility] eGFRon 05-14-2020 GFR/1.73 sq M.predicted among blacks MDRD (S/P/Bld) [Vol rate/Area] mL/min/{1.73_m2} Normal >=59 [facility] Comment on above: Order Comment: Order added by Discern Expert. Result Comment: eGFR is race adjusted. AA=. Performed By: #### 2 224774, 34588212, 9493434, 2545500, 8950780, 9803800, 8241333 ####[facility] [address] [place] [address] GFR/1.73 sq M.predicted among non-blacks MDRD (S/P/Bld) [Vol rate/Area] mL/min/{1.73_m2} Normal >=59 [facility] Comment on above: Order Comment: Order added by Discern Expert. Result Comment: Cigar Roller pérez kidney disease could be indicated at eGFR's of less than 60 mL/min/1.73m2. Kidney failure is indicated at less than 15 mL/min/1.73m2. Performed By: #### 2 [id number] ####[facility] [address] [place] [address] Consent for Treatmenton Consent for Treatment [phone] 00 [id number] #1.00CD:127 Normal [facility] Vital Signs Date Time Vital Sign Value Performing Clinician Facility 04-06-2025 15:27-0400 Body mass index (BMI) [Ratio] 29.05 kg/m2 Sylvia HEADLEY Work Phone: [facility] 04-06-2025 15:27-0400 Body weight 74.39 kg Sylvia HEADLEY Work Phone: [facility] 04-06-2025 15:27-0400 Diastolic blood pressure 74 mm[Hg] Sylvia HEADLEY Work Phone: [facility] 04-06-2025 15:27-0400 Systolic blood pressure 120 mm[Hg] Sylvia HEADLEY Work Phone: [facility] 03-23-2025 14:44-0400 Body mass index (BMI) [Ratio] 28.7 kg/m2 Dominic Mir DO Work Phone: [facility] 03-23-2025 14:44-0400 Body weight 73.48 kg Odminic Mir DO Work Phone: [facility] 03-23-2025 14:44-0400 Diastolic blood pressure 68 mm[Hg] Dominic Mir DO Work Phone: [facility] 03-23-2025 14:44-0400 Systolic blood pressure 112 mm[Hg] Dominic Mir DO Work Phone: [facility] 03-09-2025 14:55-0400 Body mass index (BMI) [Ratio] 28.21 kg/m2 Sylvia HEADLEY Work Phone: [facility] 03-09-2025 14:55-0400 Body weight 72.23 kg Sylvia Romero FANG Work Phone: [facility] 03-09-2025 14:55-0400 Diastolic blood pressure 60 mm[Hg] Sylvia Milianbruna HEADLEY Work Phone: [facility] 03-09-2025 14:55-0400 Systolic blood pressure 98 mm[Hg] Sylvia Romero FANG Work Phone: [facility] 02-23-2025 15:23-0400 Body mass index (BMI) [Ratio] 28.03 kg/m2 Dominic Mir DO Work Phone: [facility] 02-23-2025 15:23-0400 Body weight 71.78 kg Dominic Mir DO Work Phone: [facility] 02-23-2025 15:23-0400 Diastolic blood pressure 60 mm[Hg] Dominic Mir DO Work Phone: [facility] 02-23-2025 15:23-0400 Systolic blood pressure 100 mm[Hg] Dominic Mir DO Work Phone: [facility] 02-10-2025 10:44-0400 Diastolic blood pressure 54 mm[Hg] PHYSICIAN NO [facility] 02-10-2025 10:44-0400 Heart rate 53 /min PHYSICIAN NO [facility] 02-10-2025 10:44-0400 Respiratory rate 18 /min PHYSICIAN NO [facility] 02-10-2025 10:44-0400 SaO2% (BldA) [Mass fraction] 100 % PHYSICIAN NO [facility] 02-10-2025 10:44-0400 Systolic blood pressure 95 mm[Hg] PHYSICIAN NO [facility] 02-10-2025 08:40-0400 Body height 162.56 cm PHYSICIAN NO [facility] 02-10-2025 08:40-0400 Body weight 69.45 kg PHYSICIAN NO [facility] 02-10-2025 08:35-0400 Body temperature 98.2 [degF] [facility] 01-31-2025 15:23-0400 Body mass index (BMI) [Ratio] 28.48 kg/m2 Hector Power ANALYST Work Phone: [facility] 01-31-2025 15:23-0400 Body weight 72.94 kg Hector Vitalerly ANALYST Work Phone: [facility] 01-31-2025 15:23-0400 Diastolic blood pressure 58 mm[Hg] Hector Vitalerly ANALYST Work Phone: [facility] 01-31-2025 15:23-0400 Systolic blood pressure 100 mm[Hg] Hector Vitalerly ANALYST Work Phone: [facility] 12-28-2024 15:01-0400 Body mass index (BMI) [Ratio] 25.69 kg/m2 Dominic Mir DO Work Phone: [facility] 12-28-2024 15:01-0400 Body weight 65.77 kg Dominic Mir DO Work Phone: [facility] 12-28-2024 15:01-0400 Diastolic blood pressure 56 mm[Hg] Dominic Mir DO Work Phone: [facility] 12-28-2024 15:01-0400 Systolic blood pressure 96 mm[Hg] Dominic Mir DO Work Phone: [facility] 11-30-2024 15:04-0500 Body mass index (BMI) [Ratio] 24.62 kg/m2 Sylvia HEADLEY Work Phone: [facility] 11-30-2024 15:04-0500 Body weight 63.05 kg Sylvia HEADLEY Work Phone: [facility] 11-30-2024 15:04-0500 Diastolic blood pressure 62 mm[Hg] Sylvia HEADLEY Work Phone: [facility] 11-30-2024 15:04-0500 Systolic blood pressure 100 mm[Hg] Sylvia HEADLEY Work Phone: [facility] 11-02-2024 10:59-0500 Body mass index (BMI) [Ratio] 23.91 kg/m2 Dominic Mir DO Work Phone: [facility] 11-02-2024 10:59-0500 Body weight 61.24 kg Dominic Mir DO Work Phone: [facility] 11-02-2024 10:59-0500 Diastolic blood pressure 68 mm[Hg] Dominic Mir DO Work Phone: [facility] 11-02-2024 10:59-0500 Systolic blood pressure 116 mm[Hg] Dominic Mir DO Work Phone: [facility] 10-26-2024 10:04-0500 Body temperature 98.5 [degF] PHYSICIAN NO [facility] 10-26-2024 10:04-0500 Diastolic blood pressure 64 mm[Hg] PHYSICIAN NO [facility] 10-26-2024 10:04-0500 Heart rate 60 /min PHYSICIAN NO [facility] 10-26-2024 10:04-0500 Respiratory rate 18 /min PHYSICIAN NO [facility] 10-26-2024 10:04-0500 SaO2% (BldA) [Mass fraction] 100 % PHYSICIAN NO [facility] 10-26-2024 10:04-0500 Systolic blood pressure 111 mm[Hg] PHYSICIAN NO [facility] 10-26-2024 10:02-0500 Body height 160.02 cm PHYSICIAN NO [facility] 10-26-2024 10:02-0500 Body weight 58.5 kg PHYSICIAN NO [facility] 10-01-2024 11:38-0500 Body mass index (BMI) [Ratio] 22.11 kg/m2 Noms Nurse [facility] 10-01-2024 11:38-0500 Body weight 56.61 kg Noms Nurse [facility] 10-01-2024 11:38-0500 Diastolic blood pressure 70 mm[Hg] Noms Nurse [facility] 10-01-2024 11:38-0500 Systolic blood pressure 120 mm[Hg] Noms Nurse [facility] 07-19-2024 13:26-0400 Body mass index (BMI) [Ratio] 22.5 kg/m2 Dominic Mir DO Work Phone: [facility] 07-19-2024 13:26-0400 Body weight 57.61 kg Dominic Mir DO Work Phone: [facility] 07-19-2024 13:26-0400 Diastolic blood pressure 60 mm[Hg] Dominic Mir DO Work Phone: [facility] 07-19-2024 13:26-0400 Systolic blood pressure 110 mm[Hg] Dominic Mir DO Work Phone: [facility] 06-29-2024 14:00-0400 Body mass index (BMI) [Ratio] 20.73 kg/m2 Dominic Mir DO Work Phone: [facility] 06-29-2024 14:00-0400 Body weight 53.07 kg Dominic Mir DO Work Phone: [facility] 06-29-2024 14:00-0400 Diastolic blood pressure 66 mm[Hg] Dominic Mir DO Work Phone: [facility] 06-29-2024 14:00-0400 Systolic blood pressure 108 mm[Hg] Dominic Mir DO Work Phone: [facility] 06-17-2024 14:12-0400 Body height 160.02 cm PHYSICIAN NO [facility] 06-17-2024 14:12-0400 Body temperature 98.5 [degF] PHYSICIAN NO [facility] 06-17-2024 14:12-0400 Body weight 52.4 kg PHYSICIAN NO [facility] 06-17-2024 14:12-0400 Diastolic blood pressure 52 mm[Hg] PHYSICIAN NO [facility] 06-17-2024 14:12-0400 Heart rate 72 /min PHYSICIAN NO [facility] 06-17-2024 14:12-0400 Respiratory rate 20 /min PHYSICIAN NO [facility] 06-17-2024 14:12-0400 SaO2% (BldA) [Mass fraction] 99 % PHYSICIAN NO [facility] 06-17-2024 14:12-0400 Systolic blood pressure 109 mm[Hg] PHYSICIAN NO [facility] 04-07-2023 14:45-0400 Body height 160.02 cm Dutch Vanessa Other [facility] Other 04-07-2023 14:45-0400 Body mass index (BMI) [Ratio] 21.25 kg/m2 Dutch Mendez Other [facility] Other 04-07-2023 14:45-0400 Body temperature 98 [degF] Dutch Mendez Other [facility] Other 04-07-2023 14:45-0400 Body weight 54.43 kg Dutch Mendez Other [facility] Other 04-07-2023 14:45-0400 Diastolic blood pressure 62 mm[Hg] Dutch Mendez Other [facility] Other 04-07-2023 14:45-0400 Respiratory rate 18 /min Dutch Mendez Other [facility] Other 04-07-2023 14:45-0400 SaO2% (BldA) [Mass fraction] 97 % Dutch Mendez Other [facility] Other 04-07-2023 14:45-0400 Systolic blood pressure 99 mm[Hg] Dutch Mendez Other [facility] Other 01-03-2023 18:30-0400 Diastolic blood pressure 53 mm[Hg] ROBBIN Garcia Work Phone: 7(248)236-080899 [place] [address] 01-03-2023 18:30-0400 Heart rate 51 /min ANALYST-C Naomy Luby Work Phone: 3(510)[phone] [place] [address] 01-03-2023 18:30-0400 Respiratory rate 16 /min ANALYST-C Naomy Luby Work Phone: 5(475)565-197862 [address] 01-03-2023 18:30-0400 SaO2% (BldA) [Mass fraction] 100 % ANALYST-C Naomy Luby Work Phone: 3(796)998-705962 [address] 01-03-2023 18:30-0400 Systolic blood pressure 96 mm[Hg] ANALYST-C Naomy Luby Work Phone: 8(262)664-462032 [place] [address] 01-03-2023 14:50-0400 Body height 160.02 cm ANALYST-C Naomy Luby Work Phone: 1(435)444-822532 [place] [address] 01-03-2023 14:50-0400 Body temperature 98.1 [degF] ANALYST-C Naomy Luby Work Phone: 8(674)[phone] [place] [address] 01-03-2023 14:50-0400 Body weight 58.65 kg ANALYST-C Naomy Luby Work Phone: 3(267)088-744332 [place] [address] 08-02-2022 20:04-0400 Diastolic blood pressure 51 mm[Hg] ANALYST-C Naomy Luby Work Phone: 9(369)837-041932 [place] [address] 08-02-2022 20:04-0400 Heart rate 81 /min ANALYST-C Naomy Luby Work Phone: 8(867)[phone] [address] 08-02-2022 20:04-0400 Respiratory rate 16 /min ANALYST-C Naomy Luby Work Phone: 8(390)295-446562 [address] 08-02-2022 20:04-0400 SaO2% (BldA) [Mass fraction] 100 % ANALYST-C Naomy Luby Work Phone: 7(539)[phone] [address] 08-02-2022 20:04-0400 Systolic blood pressure 104 mm[Hg] ANALYST-C Naomy Luby Work Phone: 5(844)[phone] [address] 08-02-2022 17:33-0400 Body height 160.02 cm ANALYST-C Naomy Garcia Work Phone: [facility] 08-02-2022 17:33-0400 Body temperature 98.8 [degF] ANALYST-C Naomy Garcia Work Phone: [facility] 08-02-2022 17:33-0400 Body weight 59.4 kg ANALYST-C Naomy Garcia Work Phone: [facility] Encounters Encounter Date Encounter Type Care Provider Facility Start: 04-19-2025 End: 04-19-2025 Bamboo flowsheet Dominic Mir DO Work Phone: [facility] Start: 04-19-2025 End: 04-19-2025 Bamboo flowsheet Dominic Mir DO Work Phone: [facility] Start: 04-13-2025 End: 04-13-2025 Clinisync Result Encounter Sylvia HEADLEY Work Phone: [facility] Unsolicited Start: 04-13-2025 End: 04-13-2025 Clinisync Result Encounter Sylvia HEADLEY Work Phone: [facility] Unsolicited Start: 04-06-2025 End: 04-06-2025 Office outpatient visit 15 minutes Sylvia HEADLEY Work Phone: [facility] Comment on above: size inconsist ent with dates ([facility]); 34 weeks gestation of ([facility]); Third trimester ([facility]); Excessive growth affecting management of in third trimester, single or unspecified fetus ([facility]) Start: 04-06-2025 End: 04-06-2025 ambulatory SYLVIA ROMERO Not Available Start: 04-06-2025 End: 04-06-2025 Clinisync Result Encounter Dominic Mir DO Work Phone: [facility]olic[facility] Start: 04-06-2025 End: 04-06-2025 Clinisync Result Encounter Dominic Mir DO Work Phone: [facility] Unsolic[facility] Start: 03-23-2025 End: 03-23-2025 Office outpatient visit 15 minutes Dominic Mir DO Work Phone: [facility] Comment on above: Third trimester preg freddie ([facility]); 32 weeks gestation of ([facility]); size inconsistent with dates ([facility]) Start: 03-23-2025 End: 03-23-2025 ambulatory DOMINIC MIR Not Available Start: 03-23-2025 End: 03-23-2025 Bamboo flowsheet Dominic Mir DO Work Phone: [facility] Start: 03-23-2025 End: 03-23-2025 Bamboo flowsheet Dominic Mir DO Work Phone: [facility] Start: 03-09-2025 End: 03-09-2025 flow sheet Sylvia HEADLEY Work Phone: [facility] Comment on above: Third trimester preg freddie; 30 weeks gestation of Start: 03-09-2025 End: 03-09-2025 ambulatory SYLVIA ROMERO Not Available Start: 03-09-2025 End: 03-09-2025 Bamboo flowsheet Sylvia HEADLEY Work Phone: [facility] Start: 03-09-2025 End: 03-09-2025 Bamboo flowsheet Sylvia HEADLEY Work Phone: [facility] Start: 02-23-2025 End: 02-23-2025 Office [...] OB Start: 02-17-2025 End: 02-17-2025 ambulatory HECTOR POWER Not Available Start: 02-17-2025 End: 02-17-2025 Clinisync Result Encounter Hector Power ANALYST Work Phone: [facility] Unsolicited Start: 02-17-2025 End: 02-17-2025 Clinisync Result Encounter Hector Steve ANALYST Work Phone: [facility] Unsolicited Start: 02-10-2025 End: 02-10-2025 Emergency department patient visit PHYSICIAN [facility] Work Phone: Start: 01-31-2025 End: 01-31-2025 ambulatory HECTOR POWER Not Available Start: 01-31-2025 End: 01-31-2025 Office outpatient visit 15 minutes Hector Steve ANALYST Work Phone: [facility] Comment on above: 25 weeks gestation o f ; Second trimester ; Encounter for follow-up ultrasound of anatomy; Diabetes mellitus screening Start: 01-31-2025 End: 01-31-2025 Bamboo flowsheet Hector Power ANALYST Work Phone: [facility] Start: 01-31-2025 End: 01-31-2025 Bamboo flowsheet Hector Power ANALYST Work Phone: [facility] Start: 12-28-2024 End: 12-28-2024 Office outpatient visit 15 minutes Dominic Mir DO Work Phone: [facility] Comment on above: 20 weeks gestation o f ; Second trimester Start: 12-28-2024 End: 12-28-2024 ambulatory DOMINIC MIR Not Available Start: 12-28-2024 End: 12-28-2024 ambulatory DOMINIC MIR Not Available Start: 11-30-2024 End: 11-30-2024 Office outpatient visit 15 minutes Sylvia HEADLEY Work Phone: [facility] Comment on above: 16 weeks gestation o f ; Second trimester ; Well woman exam with routine gynecological exam; STD exposure; Vaginal discharge; Screening, , for anatomic survey Start: 11-30-2024 End: 11-30-2024 Patient encounter procedure Sylvia HEADLEY Work Phone: [facility] Start: 11-30-2024 End: 11-30-2024 ambulatory SYLVIA ROMERO Not Available Start: 11-30-2024 End: 11-30-2024 Bamboo flowsheet Sylvia HEADLEY Work Phone: [facility] Start: 11-30-2024 End: 12-06-2024 Bamboo flowsheet Sylvia HEADLEY Work Phone: [facility] Start: 11-30-2024 End: 12-06-2024 Clinisync Result Encounter Sylvia HEADLEY Work Phone: [facility] External Department Unsolicited Start: 11-02-2024 End: 11-02-2024 Bamboo flowsheet Dominic Mir DO Work Phone: [facility] Start: 11-02-2024 End: 11-02-2024 Bamboo flowsheet Dominic Mir DO Work Phone: [facility] Start: 11-02-2024 End: 11-02-2024 ambulatory DOMINIC MIR Not Available Start: 11-02-2024 End: 11-02-2024 Office outpatient visit 15 minutes Dominic Mir DO Work Phone: [facility] Comment on above: 12 weeks gestation o f ; First trimester Start: 10-26-2024 End: 10-26-2024 Emergency department patient visit PHYSICIAN [facility] Work Phone: Start: 10-19-2024 End: 10-19-2024 Clinisync Result Encounter Dominic Mir DO Work Phone: [facility] External Department Unsolicited Start: 10-19-2024 End: 10-19-2024 Clinisync Result Encounter Dominic Mir DO Work Phone: [facility] Unsolic[facility] Start: 10-01-2024 End: 10-01-2024 Office outpatient visit 5 minutes [facility] Mir Nurse [facility] Comment on above: GA: 8w1d Start: 10-01-2024 End: 10-01-2024 ambulatory DOMINIC MIR Not Available Start: 09-08-2024 End: 09-08-2024 Clinisync Result Encounter Dominic Mri DO Work Phone: [facility] Unsolicited [...] Emergency department patient visit PHYSICIAN KARLY GAN [facility] Work Phone: Start: 04-24-2024 End: 04-24-2024 Patient encounter procedure ANALYST-C Naomy Luby Work Phone: [facility] [place] Work Phone: Start: 04-24-2024 End: 04-24-2024 ambulatory ANALYST-C Naomy Luby Work Phone: [facility] Work Phone: Start: 02-09-2024 End: 02-09-2024 ambulatory ANALYST-C Naomy Luby Work Phone: [facility] Work Phone: Start: 02-09-2024 End: 02-09-2024 Patient encounter procedure ANALYST-C Naomy Luby Work Phone: [facility] [place] Work Phone: Start: 04-07-2023 End: 04-07-2023 ambulatory Dutch Mendez Other [facility] Other Start: 04-07-2023 Office outpatient ne w 20 minutes Dutch Mendez [facility] Start: 03-28-2023 End: 03-28-2023 ambulatory ANALYST-C Naomy Garcia Work Phone: [facility] Work Phone: Start: 03-28-2023 End: 03-28-2023 Patient encounter procedure ANALYST-C Naomy Garcia Work Phone: [facility] [place] Work Phone: Start: 01-17-2023 End: 01-17-[address] DOMINIC HESTER . Facility:[facility] Start: 01-17-2023 End: 01-18-[address] DOMINIC HESTER . Facility:[facility] Start: 01-03-2023 End: 01-04-[address] DOCTOR PATEL Facility:[facility] Start: 01-03-2023 End: 01-03-2023 Emergency department patient visit ANALYST-C Naomy Garcia Work Phone: [facility] Work Phone: Start: 12-26-2022 End: 12-27-[address] DOMINIC HESTER . Facility:[facility] Start: 12-25-2022 End: 12-26-[address] DOMINIC HESTER . Facility:[facility] Start: 08-02-2022 End: 08-02-2022 Emergency department patient visit ANALYST-C Naomy Garcia Work Phone: [facility] Start: 07-31-2022 Encounter for other preprocedural examination DR DOMINIC HESTER . [facility] Start: 07-29-2022 End: 07-30-2022 Encounter for other preprocedural examination DR DOMINIC HESTER . Facility:[facility] Start: 07-29-2022 End: 07-30-[address] DOMINIC HESTER . Facility:[facility] Start: 07-16-2022 End: 07-17-[address] DOMINIC HESTER . Facility:[facility] Start: 06-18-2022 End: 06-18-2022 Patient encounter procedure ANALYST-C Naomy Garcia Work Phone: [facility] [place] Start: 06-01-[address] DOMINIC HESTER . Facili ty:[facility] Start: 05-30-2022 End: 05-30-[address] DOMINIC HESTER . Facility:[facility] Start: 05-28-2022 End: 05-28-2022 ambulatory ROGELIOLAURENT HERNANDEZ . Facility: Procedures Date Procedure Procedure Detail Performing Clinician Start: 04-13-2025 US OB BPP W NON-STRESS Sylvia HEADLEY Work [...] ALL CBC WITH AUTO DIFF Hector Steve ANALYST Work Phone: Start: 01-31-2025 Urnls dip stick/tabl et rgnt non-auto w/o micrscp Hector Steve ANALYST Work Phone: Start: 12-28-2024 Urnls dip stick/tabl [...] DO Work Phone: Start: 02-09-2024 Pelvic echography ANALYST-Lauren Garcia Work Phone: Start: 02-09-2024 Transvaginal echography ANALYST-Lauren Garcia Work Phone: Start: 05-30-2023 Microscopic observat ion [Identifier] in Cervix by Cyto stain Dominic Mir DO Work Phone: Start: 01-03-2023 Diagnostic ultrasoun d of gravid uterus ANALYST-Lauren Garcia Work Phone: Start: 01-03-2023 Ultrasonography of r ight kidney ANALYST-Lauren Garcia Work Phone: Start: 01-03-2023 Transvaginal obstetr ic ultrasonography ANALYST-Lauren Peterna Luby Work Phone: Plan of Treatment Date Care Activity Detail Author Start: 05-30-2028 Screening for malign ant neoplasm of cervix [facility] Start: 11-30-2025 Screening for malign ant neoplasm of cervix [facility] Start: 06-06-2025 Influenza vaccination [facility] Start: 04-19-2025 End: 04-19-2025 Patient encounter procedure [facility] Comment on above: Arrived Start: 04-06-2025 End: 04-06-2025 Patient encounter procedure 04/06/2025 2:50 PM EDT Routine [facility] [address] [place] [address] Sylvia Romero PA [address] [place], [place] [id number] [facility] Start: 03-23-2025 End: 03-23-2025 Patient encounter procedure [facility] Comment on above: Arrived Start: 03-23-2025 End: 07-23-2025 US for US OB follow up transabdominal approach Imaging Routine size inconsistent with dates ([facility]) Expected: 03/23/2025, Expires: 07/23/2025 [facility] Work Phone: Comment on above: Expected: 03/23/2025 , Expires: 07/23/2025 Start: 03-09-2025 End: 03-09-2025 Patient encounter procedure [facility] Comment on above: Arrived Start: 02-23-2025 End: 02-23-2025 Patient encounter procedure [facility] Comment on above: Arrived Start: 02-10-2025 [facility] Start: 02-03-2025 End: 02-03-2025 Professional / ancillary services management 02/03/2025 2:30 PM EDT Ancillary Procedure [facility] [address] [place] [address] [facility] Start: 01-31-2025 End: 01-31-2026 CBC panel - Blood by Automated count CBC Lab Routine Diabetes mellitus screening Expected: 01/31/2025 (Approximate), Expires: 01/31/2026 [facility] Comment on above: Expected: 01/31/2025 (Approximate), Expires: 01/31/2026 Start: 01-31-2025 End: 01-31-2026 Measurement of glucose 1 hour after glucose challenge for glucose tolerance test Glucose tolerance, 1 hour Lab Routine Diabetes mellitus screening Expected: 01/31/2025 (Approximate), Expires: 01/31/2026 [facility] Comment on above: Expected: 01/31/2025 (Approximate), Expires: 01/31/2026 Start: 01-31-2025 End: 05-02-2025 US for US OB limited 1+ fetuses Imaging Routine Encounter for follow-up ultrasound of anatomy Expected: 01/31/2025, Expires: 05/02/2025 [facility] Work Phone: Comment on above: Expected: 01/31/2025 , Expires: 05/02/2025 Start: 01-25-2025 End: 01-25-2025 Patient encounter procedure 01/25/2025 2:40 PM EDT Routine [facility] [address] [place] [address] Sylvia Romero PA [address] [place], [place] [id number] [facility] Start: 12-28-2024 End: 12-28-2024 Patient encounter procedure 12/28/2024 2:40 PM EDT Routine [facility] [address] [place] [address] Dominic Hester DO [address] [place], [place] [id number] [facility] Start: 12-28-2024 End: 12-28-2024 Professional / ancillary services management 12/28/2024 1:30 PM EDT Ancillary Procedure [facility] [address] [place] [address] [facility] Start: 12-20-2024 End: 12-20-2024 Patient encounter procedure 12/20/2024 2:10 PM EDT Office Visit [facility] [address] [facility] [place] [address] Dominic Hester, DO [address] [place] [address] [facility] Start: 11-30-2024 End: 11-30-2024 Patient encounter procedure 11/30/2024 2:30 PM EST Routine [facility] [address] [facility] [place] [id number] Sylvia Romero PA [address] [facility] [address] [place], [place] [id number] Arrived [facility] Comment on above: Arrived Start: 11-30-2024 End: 01-28-2025 Alpha fetoprotein, maternal Alpha fetoprotein, maternal Lab Routine Second trimester Expected: 11/30/2024 (Approximate), Expires: 01/28/2025 [facility] Comment on above: Expected: 11/30/2024 (Approximate), Expires: 01/28/2025 Start: 11-30-2024 End: 11-30-2025 US for US OB 14+ weeks anatomy scan Imaging Routine Screening, , for anatomic survey Expected: 11/30/2024, Expires: 11/30/2025 [facility] Comment on above: Expected: 11/30/2024 , Expires: 11/30/2025 Start: 11-02-2024 End: 11-02-2024 Patient encounter procedure 11/02/2024 10:40 AM EST Routine [facility] [address] [facility] [place] [id number] Dominic Hester, DO [address] [place] [address] [facility] Start: 10-01-2024 End: 10-01-2025 ABO/Rh ABO/Rh Lab Routine Missed menses , unspecified gestational age Expected: 10/01/2024 (Approximate), Expires: 10/01/2025 [facility] Comment on above: Expected: 10/01/2024 (Approximate), Expires: 10/01/2025 Start: 10-01-2024 End: 10-01-2025 Blood type and Indirect antibody screen panel - Blood Type and screen Lab Routine Missed menses , unspecified gestational age Expected: 10/01/2024 (Approximate), Expires: 10/01/2025 [facility] Work Phone: Comment on above: Expected: 10/01/2024 (Approximate), Expires: 10/01/2025 Start: 10-01-2024 End: 10-01-2025 Drugs of abuse panel - Urine by Screen method Rapid drug screen, urine Lab Routine , unspecified gestational age Encounter for supervision of normal first in first trimester Expected: 10/01/2024 (Approximate), Expires: 10/01/2025 [facility] Comment on above: Expected: 10/01/2024 (Approximate), Expires: 10/01/2025 Start: 07-19-2024 End: 07-19-2024 Patient encounter procedure 07/19/2024 1:00 PM EDT Office Visit [facility] [address] [place] [id number] Dominic Hester, [address] [facility] [address] [place] [address] [facility] Start: 06-29-2024 End: 06-29-2025 SURESWAB(R) ADVANCED VAGINITIS PLUS, TMA SURESWAB(R) ADVANCED VAGINITIS PLUS, TMA Pathology and Cytology Routine Pelvic pain in female Expected: 06/29/2024 (Approximate), Expires: 06/29/2025 [facility] Work Phone: Comment on above: Expected: 06/29/2024 (Approximate), Expires: 06/29/2025 Start: 06-29-2024 End: 06-29-2025 US for US PELVIS-TRANSVAG IF INDICATED Imaging Routine Pelvic pain in female Expected: 06/29/2024 (Approximate), Expires: 06/29/2025 [facility] Comment on above: Expected: 06/29/2024 (Approximate), Expires: 06/29/2025 Start: 06-29-2024 End: 06-29-2024 Patient encounter procedure 06/29/2024 1:40 PM EDT Office Visit [facility] OB [address] [facility] [address] [place] [address] Dominic Hester DO [address] [facility] [address] [place] [address] Arrived [facility] Comment on above: Arrived Start: 06-06-2024 Influenza vaccination Influenza Vacc ine (#1) [facility] Start: 03-28-2023 [facility] Start: 01-03-2023 [facility] Start: 06-18-2022 [facility] Work Phone: Bacteria identified in Blood by Culture Blood Culture [facility] Bacteria identified in Urine by Culture Urine culture Microbiology Routine Missed menses Ordered: 10/01/2024 [facility] Comment on above: Ordered: 10/01/2024 CBC W Auto Different ial panel - Blood CBC and differential Lab Routine Missed menses , unspecified gestational age Ordered: 10/01/2024 [facility] Comment on above: Ordered: 10/01/2024 CHLAMYDIA TRACHOMATI S (GENITO/STI) CHLAMYDIA TRACHOMATIS (GENITO/STI) Lab Routine Pelvic pain in female Ordered: 06/29/2024 [facility] Comment on above: Ordered: 06/29/2024 CHLAMYDIA TRACHOMATI S (GENITO/STI) CHLAMYDIA TRACHOMATIS (GENITO/STI) Lab Routine STD exposure Vaginal discharge Ordered: 11/30/2024 [facility] Comment on above: Ordered: 11/30/2024 Cytology Cervical or vaginal smear or scraping study Pap Smear Pathology and Cytology Routine Well woman exam with routine gynecological exam Ordered: 11/30/2024 [facility] Work Phone: Comment on above: Ordered: 11/30/2024 Glucose measurement estimated from glycated hemoglobin [facility] Hemoglobin A1c/Hemoglobin.total in Blood Hemoglobin A1c Lab Routine Missed menses , unspecified gestational age Ordered: 10/01/2024 [facility] Comment on above: Ordered: 10/01/2024 Hepatitis A virus antibody, IgM type [facility] Work Phone: Hepatitis B core antibody measurement, IgM type [facility] Work Phone: Hepatitis B virus surface Ag [Presence] in Serum or Plasma by Immunoassay [facility] Work Phone: Hepatitis B virus surface Ag [Presence] in Serum or Plasma by Immunoassay Hepatitis B surface antigen Lab Routine Missed menses , unspecified gestational age Ordered: 10/01/2024 [facility] Comment on above: Ordered: 10/01/2024 Hepatitis C virus Ab [Presence] in Serum or Plasma by Immunoassay Hepatitis C antibody Lab Routine Missed menses , unspecified gestational age Ordered: 10/01/2024 [facility] Comment on above: Ordered: 10/01/2024 Hepatitis C virus Ab Signal/Cutoff in Serum or Plasma by Immunoassay [facility] Work Phone: Hepatitis C virus RN A [log units/volume] (viral load) in Serum or Plasma by JOSE with probe detection [facility] Work Phone: Hepatitis C virus RN A [Units/volume] (viral load) in Serum or Plasma by JOSE with probe detection [facility] Work Phone: HIV 1+2 Ab+HIV1 p24 Ag [Presence] in Serum or Plasma by Immunoassay [facility] Work Phone: HIV-1/HIV-2 antigen/antibody combination immunoassay HIV-1 and HIV-2 antibodies Lab Routine Missed menses , unspecified gestational age Ordered: 10/01/2024 [facility] Comment on above: Ordered: 10/01/2024 Human papilloma viru s DNA [Presence] in Unspecified specimen by Probe with amplification HPV DNA probe, amplified Microbiology Routine Well woman exam with routine gynecological exam Ordered: 11/30/2024 [facility] Comment on above: Ordered: 11/30/2024 Neisseria gonorrhoea e DNA [Presence] in Unspecified specimen by JOSE with probe detection Neisseria gonorrhea DNA probe, direct Lab Routine Pelvic pain in female Ordered: 06/29/2024 [facility] Comment on above: Ordered: 06/29/2024 Neisseria gonorrhoea e DNA [Presence] in Unspecified specimen by JOSE with probe detection Neisseria gonorrhea DNA probe, direct Lab Routine STD exposure Vaginal discharge Ordered: 11/30/2024 [facility] Comment on above: Ordered: 11/30/2024 Patient Education [facility] Work Phone: Patient referral [facility] Work Phone: Reagin Ab [Presence] in Serum by RPR [facility] Work Phone: Reagin Ab [Presence] in Serum by RPR RPR Lab Routine Missed menses , unspecified gestational age Ordered: 10/01/2024 [facility] Comment on above: Ordered: 10/01/2024 Rubella antibody, IgG Rubella an tibody, IgG Lab Routine Missed menses , unspecified gestational age Ordered: 10/01/2024 [facility] Comment on above: Ordered: 10/01/2024 SURESWAB(R) ADVANCED VAGINITIS PLUS, TMA SURESWAB(R) ADVANCED VAGINITIS PLUS, TMA Pathology and Cytology Routine STD exposure Vaginal discharge Ordered: 11/30/2024 [facility] Comment on above: Ordered: 11/30/2024 US for US OB follow up transabdominal approach Imaging Routine size inconsistent with dates ([facility]) 04/06/2025 2:45 PM EDT [facility] Work Phone: Payers Date Payer Category Payer Medicaid [facility] MEDICAID [employer] MEDICAID [place] [id number] 2022-Present [address] [place] [address] [id number] 2022 Private Health Insurance [facility] MEDICAID [id number] 1991 Unknown [id number] 2.16.840.1.777196.3.579.2. 593 1991 Unknown [id number] 2.16.840.1.474347.3.579.2. 593 1991 Unknown [id number] 2.16.840.1.141611.3.579.2. 593 1991 Unknown [id number] 2.16.840.1.172030.3.579.2. 593 1991 Unknown [id number] 2.16.840.1.828176.3.579.2. 593 1991 Unknown [id number] 2.16.840.1.206063.3.579.2. 593 1991 Unknown [id number] 2.16.840.1.212500.3.579.2. 593 1991 Unknown [id number] 2.16.840.1.049224.3.579.2. 593 1991 Unknown [id number] 2.16.840.1.829991.3.579.2. 593 1991 Unknown [id number] 2.16.840.1.783907.3.579.2. 593 1991 Unknown [id number] 2.16.840.1.799467.3.579.2. 593 1991 Unknown [id number] 2.16.840.1.921067.3.579.2. 593 1991 Unknown [id number] 2.16.840.1.822053.3.579.2. 1259 1991 Unknown [id number] 2.16.840.1.834398.3.579.2. 9 1991 Unknown [id number] 2.16.840.1.150513.3.579.2. 1258 1991 Unknown [id number] 2.16.840.1.328282.3.579.2. 9 1991 Unknown [id number] 2.16.840.1.733449.3.579.2. 1258 1991 Unknown [id number] 2.16.840.1.687352.3.579.2. 1258 1991 Unknown [id number] 2.16.840.1.543570.3.579.2. 1258 1991 Unknown [id number] 2.16.840.1.866274.3.579.2. 1258 1991 Unknown [id number] 2.16.840.1.508196.3.579.2. 1258 1991 Unknown [id number] 2.16.840.1.837492.3.579.2. 9 1991 Unknown [id number] 2.16.840.1.051645.3.579.2. 1258 1991 Unknown [id number] 2.16.840.1.064910.3.579.2. 9 1991 Unknown [id number] 2.16.840.1.730302.3.579.2. 9 1959 Private Health Insurance [id number] 1959 Self-pay [id number] 1959 Unknown [id number] Self-pay Self Pay [id number] Social History Date Type Detail Facility Start: 01-05-2022 End: 06-17-2024 Tobacco smoking status PAIS Smoker (finding) [facility] Start: 1990 Sex Assigned At Female F [facility] Start: 01-03-2023 Tobacco smoking stat us PAIS Never smoked tobacco (finding) [facility] Start: 03-09-2024 End: 03-24-2025 Sex Assigned At [facility] Start: 10-06-2010 [facility] Start: 10-06-2010 End: 05-21-2021 History of tobacco use Cigarette Smoker [facility] Start: 03-09-2024 Tobacco use and exposure Smokeless tobacco non-user [facility] Start: 06-29-2024 End: 04-06-2025 Alcoholic beverage intake Ex-drinker (finding) [facility] Start: 03-09-2024 End: 03-24-2025 History of Social function [facility] Start: 04-13-2023 Education 13 [facility] Start: 04-13-2023 Alcohol Comment Alcohol: 1 or 2 drinks on typical day/monthly or less. Caffeine: 1 bottle pop daily; 2-3 cups/day coffee [facility] Start: 1990 Sex assigned at Not on file N [facility] Start: 08-19-2024 [facility] Start: 10-26-2024 End: 02-10-2025 Tobacco smoking status NHIS Ex-smoker (finding) [facility] Start: 10-26-2024 End: 02-10-2025 Sex Female (finding) [facility] Functional Status Date Assessment Result Facility 03-01-2025 Patient Health Quest ionnaire 2 item (PHQ-2) [Reported] [facility] 03-01-2025 PHQ-9 quick depressi on assessment panel [Reported.PHQ] [facility] Clinical Notes 05-14-2020 to 04-06-2025 FANG Jackson [...] 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) PID (acute pelvic inflammatory disease) Trichomoniasis 2012 HISTORY PAST MEDICAL HISTORY SOCIAL HISTORY Past Medical History: Diagnosis Date Anxiety Asthma ([facility]) Dysmenorrhea Dyspareunia in female Endometriosis Folliculitis Hematuria Miscarriage ([facility]) PID (acute pelvic inflammatory disease) Trichomoniasis 2012 [...] PLAN ICD-10-CM 1. size inconsistent with dates ([facility]) O26.849 US OB follow up transabdominal approach 2. 34 weeks gestation of ([facility]) Z3A.34 3. Third trimester ([facility]) Z34.93 POCT urinalysis dipstick manually resulted [...] of: FANG Jackson documented in this encounter [facility] 03-23-2025 History of Present illness Narrative Reason [...] Anovulation 07/19/2024 confirmed by positive blood test ([facility]) 09/09/2024 20 weeks gestation of ([facility]) 12/28/2024 Second trimester ([facility]) 12/28/2024 Resolved Ambulatory Problems Diagnosis Date Noted No Resolved Ambulatory Problems Past Medical History: Diagnosis Date Anxiety Asthma ([facility]) Dyspareunia in female Endometriosis Folliculitis Hematuria Miscarriage ([facility]) PID (acute pelvic inflammatory disease) Trichomoniasis 2012 [...] nursing note reviewed. Exam conducted with a scrap crane operator present. Vitals: Estimated body mass index is 28.7 kg/m as calculated from the following: Height as of 03/09/24: 5' 3 . Weight as of this encounter: 162 lb. BP: 112/68 Patient's last menstrual period was 08/05/2024. ASSESSMENT & PLAN ICD-10-CM 1. Third trimester ([facility]) Z34.93 POCT urinalysis dipstick manually resulted 2. 32 weeks gestation of ([facility]) Z3A.32 Return OB: Patient presents today for [...] Dominic Hester DO documented in this encounter [facility] 03-09-2025 History of Present illness Narrative Reason [...] of: FANG Jackson documented in this encounter [facility] 02-23-2025 History of Present illness Narrative Reason [...] nursing note reviewed. Exam conducted with a scrap crane operator present. Vitals: Estimated body mass index is [...] Dominic Hester DO documented in this encounter [facility] 01-31-2025 History of Present illness Narrative Reason [...] nursing note reviewed. Exam conducted with a scrap crane operator present. Vitals: Estimated body mass index is [...] Hector Steve NP documented in this encounter [facility] 12-28-2024 History of Present illness Narrative Reason [...] nursing note reviewed. Exam conducted with a scrap crane operator present. Vitals: Estimated body mass index is [...] Dominic Hester DO documented in this encounter [facility] 11-30-2024 History of Present illness Narrative Reason [...] nursing note reviewed. Exam conducted with a scrap crane operator present. Vitals: Estimated body mass index is [...] obtained without difficulty and patient was given [facility] order to have obtained. Orders Placed This [...] of: FANG Jackson documented in this encounter [facility] 11-02-2024 History of Present illness Narrative Reason [...] Dominic Hester DO documented in this encounter [facility] 10-26-2024 Radiology Diagnostic study note [facility] Main [place] [address] [place] [address] Ultrasound Report Signed Patient: Breana Casas MR#: [id number] : 1990 Acct:[id number] Age/Sex: 33 / F ADM Date: 5 Loc: ER Room: Type: [facility] ER Attending Dr: Ordering Provider: Ale M Fouzia, DATA ANALYTICS SPECIALIST Date of Service: 10/26/24 US/US renal RT: right flank pain Copies to: lAe Jimenez RADHA Fragoso~ Right Renal Ultrasound HISTORY: Right flank pain. [...] Tanner Burleson M.D.10/26/2024 11:46 AM Dictation Location: [place] [address] Tech: Karmen Yamil Transcribed By: SHANE 10/26/24 1146 Dictated By: Tanner Burleson DO 10/26/24 1139 Signed By: 10/26/24 1146 [facility] 10-26-2024 Hospital Discharge instructions Additional Instructions Rest. Push fluids. Take [id number] Tylenol as needed for any pain or discomfort. Follow-up with Dr. Hester with [employer] in the next 2 to 3 days. Follow-up with primary care provider in the next 2 to 5 days. Return here if symptoms persist or worsen. [facility] Work Phone: 10-01-2024 History of Present illness [...] or undercooked meat, and stay away from [facility]. Patient has also been advised to [...] Archana Parham LPN documented in this encounter [facility] 07-19-2024 History of Present illness Narrative Reason [...] nursing note reviewed. Exam conducted with a scrap crane operator present. Vitals: Estimated body mass index is [...] Dominic Hester DO documented in this encounter [facility] 06-29-2024 History of Present illness Narrative Reason [...] nursing note reviewed. Exam conducted with a scrap crane operator present. Vitals: Estimated body mass index is [...] Dominic Hester DO documented in this encounter [facility] 04-07-2023 Evaluation note Encounter Date Diagnosis Assessment [...] right ear, unspecified type (ICD-10 - H60.501) [place] Other 04-14-2023 NoteOPERATIVE NOTE OPERATION DATE: 01/17/2023 [...] products of conception were removed using an 8-[place]ore[place] suction curette. Excellent hemostasis was noted. The patient tolerated the procedure well. Sponge, lap, and needle counts were correct x 2. All instruments were then removed from the patient's vagina. The patient was taken to the Recovery Room in stable condition. ??[facility] [id number] NoteOPERATIVE NOTE OPERATION DATE: 07/29/2022 PROCEDURE: Diagnostic laparoscopy. PREOPERATIVE DIAGNOSIS: Pelvic pain, dyspareunia, dysmenorrhea. POSTOPERATIVE DIAGNOSIS: Pelvic pain, dyspareunia, dysmenorrhea including significant endometriosis of the posterior cul-de-sac, as well as significant adhesions of the uterus to the anterior abdominal wall all the way to the fundal region. ANESTHESIA: General. SURGEON: Dominic Hester D.O. DIRECTOR OF CONSTRUCTION: ADAN Flores URINE OUTPUT: Yellow and clear. [...] taken to Recovery Room in stable condition.[facility] [id number] Note Microbiology PROCEDURE: Cervical Culture [R1] SOURCE: [...] Locations R1: This test was performed at: [facility], [address] [place] [address], [address] , , [facility] HospitalComment on above:Performed By: #### [id number] ####[facility] [address] [place], [place] [id number] NoteCall received from u/s, bladder not full. [place] catheter education provided to patient, agrees to insertion at this time.[facility] HospitalEvaluation noteNo assessment information availableC[facility] Work Phone: Evaluation note* Diagnosis Female [...] worsen including fever, chills or any other concernsC[facility] Work Phone: Hospital Discharge instructions Additional Instructions It is important you follow-up with your CAREER TECHNOLOGY TEACHER call for appointment. Please return here if you develop any fevers, chills, shortness of breath, numbness, tingling, unilateral weakness or any other concernsC[facility] Work Phone: Summary Purpose Family History [...] section and content) DATE CREATED AUTHOR 04/20/2021 [facility] DATE CREATED AUTHOR AUTHOR'S ORGANIZ ATION 01/23/2023 [facility] pital DATE CREATED AUTHOR AUTHOR'S ORGANIZ ATION 02/12/2025 [facility] DATE CREATED AUTHOR AUTHOR'S ORGANIZ ATION 04/09/2025 [facility] dical Specialists EPIC Care Teams [...] Inactive Member Role Status Dates Naomy Garcia ANALYST-C Primary Care Provider Active Sylvia Romero PA-C Attending Provider Active Team Status: Inactive Member Role Status Dates Naomy Garcia ANALYST-C Primary Care Provider Active S tart: February 09, 2024 End: February 09, 2024 Dominic Hester Attending Provider Active Start: Stephanie solomon 2023 End: February 09, 2024 Team Status: Active Member Role Status Dates PHYSICIAN NO FAMILY Primary Care Provider Active Team Status: Inactive Member Role Status Dates Naomy Garcia ANALYST-C Primary Care Provider Active S tart: February [...] June 17, 2024 End: June 17, 2024 National Coverage Specialist Relationship Specialty Start Date End Date Sylvia Romero PA [address] [place], [place] [address] [address] PCP - [facility] 07/06/24 National Coverage Specialist Relationship Specialty Start Date End Date Sylvia Romero PA [address] [place] [address] [place] [address] PCP - [facility] 07/06/24 National Coverage Specialist Relationship Specialty Start Date End Date Sylvia Romero PA [address] [place], [place] [address] [address] PCP - [facility] 07/06/24 Team Status: Inactive Member Role Status Dates PHYSICIAN NO FAMILY Primary Care Provider Active Start: October 26, 2024 End: October 26, 2024 Ale Fragoso APRN Emergency Provider Active S tart: October 26, 2024 End: October 26, 2024 National Coverage Specialist Relationship Specialty Start Date End Date Sylvia Romero PA [address] [place] [address] [place] [address] P[address] - [facility] 07/06/24 National Coverage Specialist Relationship Specialty Start Date End Date Sylvia Romero PA [address] [place] [address] N[place], [facility] PCP - [facility] 07/06/24 National Coverage Specialist Relationship Specialty Start Date End Date Sylvia Romero PA [address] [place] [address] Nelly [place], [facility] PCP - [facility] 07/06/24 National Coverage Specialist Relationship Specialty Start Date End Date Sylvia Romero PA [address] [place] [address] Dr [place], [facility] PCP - [facility] 07/06/24 National Coverage Specialist Relationship Specialty Start Date End Date Sylvia Romero PA [address] [place] [address] Dr [place], [facility] PCP - [facility] 07/06/24 National Coverage Specialist Relationship Specialty Start Date End Date Sylvia Romero PA [address] [place] [address] Dr [place], [facility] PCP - [facility] 07/06/24 Team Status: Inactive Member Role Status Dates PHYSICIAN NO FAMILY Primary Care Provider Active Start: February 10, 2025 End: February 10, 2025 Malcolm Gaston DO Emergency Provider Active St art: February 10, 2025 End: February 10, 2025 National Coverage Specialist Relationship Specialty Start Date End Date Sylvia Romero PA [address] [place] [address] Nelly [place], [facility] PCP - [facility] 07/06/24 National Coverage Specialist Relationship Specialty Start Date End Date Sylvia Romero PA [address] [place] [address] [place] [address] PCP - [facility] 07/06/24 National Coverage Specialist Relationship Specialty Start Date End Date Sylvia Romero PA [address] [place] [address] [place] [address] PCP - [facility] 07/06/24 National Coverage Specialist Relationship Specialty Start Date End Date Sylvia Romero PA [address] [place] [address] [place] [address] PCP - [facility] 07/06/24 National Coverage Specialist Relationship Specialty Start Date End Date Sylvia Romero PA [address] [place] [address] [place] [address] PCP - [facility] 07/06/24 Goals (unrecognized section and [...] BE BASED ON THE PRIMARY CLINICAL RECORDS. [facility]. provides no warranty or guarantee of the accuracy or completeness of information in this document.
== END 2025-04-19 19:27 | disposition home or self-care (01) ==
LOC: LAB 19:26
PROVIDERS: Visit Provider Obstetrics & Gynecology
DX: Z34.93 Encounter for supervision of normal pregnancy, unspecified, third trimester (principal)
CPT/HCPCS: 87081

== ENCOUNTER 2025-04-20 14:07 | Outpatient (OUT) | payer OTHER, SELFPAY ==
--- NOTE | 2025-04-20 | US_ITS ---
The [address] [address] Patient Name: BREANA CASAS MRN: [id number] date: 1990 Sex: F Assigned Patient Location: Current Patient Location: Accession/Order Number: [id number] Exam Date: 04/21/2025 08:12 Report Date: 04/21/2025 08:14 At the request of: CHAZ ENRIQUEZ Procedure: US OB BPP w non-stress BIOPHYSICAL PROFILE: CLINICAL INFORMATION: EXCESSIVE GROWTH COMPARISON: 04/13/2025 There is a single live intrauterine gestation in cephalic presentation. The reported gestational age is 36 weeks 6 days. The heart rate measures 139 beats per minute. 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 FINDINGS: TONE: 1 or more episodes of activity extension and flexion of extremity or opening and closing of the hand [Y] 2/2 GROSS BODY MOVEMENTS: 3 or more discrete body or limb movements [Y] 2/2 BREATHING MOVEMENTS: 1 or more episodes of breathing lasting at least 30 seconds [Y] 2/2 TAMIR: A single deepest vertical pocket of amniotic fluid greater than 2 cm [Y] 2/2 TAMIR: 17.4 cm. This is in normal range. Total score: 8/8 US/ OB BPP w non-stress IMPRESSION: NORMAL BIOPHYSICAL PROFILE. NUCHAL CORD. Impression dictated by: Christine Mckeon M.D. 04/21/2025 8:14 AM Dictation Location: [place] [address] Electronically authenticated by: [id number] Y Date: 04/21/2025 08:14
[2025-04-20 14:30] VITALS: BP 105/59; PULSE 108
--- NOTE | 2025-04-20 14:45 | PC.NURSE ---
0570 Dr Hester notified of BPP results and double nuchal cord. Physician will schedule repeat c/section at 38 weeks.
== END 2025-04-20 15:30 | disposition home or self-care (01) ==
LOC: US 14:07 → FBC 14:13
PROVIDERS: Visit Provider Physician Assistant
DX: O36.63X0 Maternal care for excessive fetal growth, third trimester, not applicable or unspecified (principal); Z3A.36 36 weeks gestation of pregnancy
CPT/HCPCS: 76818

== ENCOUNTER 2025-04-23 14:03 | Outpatient (OUT) | payer OTHER, SELFPAY ==
--- OUTSIDE RECORDS SUMMARY | 2025-04-23 14:07 | XMS_ITS | CCD ---
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 Name Role Phone ROBBIN Garcia Primary Care Provider Dominic Hester Attending Provider Dominic Hester Attending Provider [phone] RADHA Camarillo Emergency Provider ROBBIN Garcia Primary Care Provider RADHA [place] Emergency Provider [phone] MIR ., DR LAMB Attending Unavailable MIR [...] ., FANG MCKENZIE Consulting Unavailabl e LOPEZ ZARAGZOA Consulting Unavailable ARLETH ., ROGELIO Attending Unavailable ARLETH ., ROGELIO Admitting Unavailable WEST, DR TOR Conrad Consulting Unavailable MISC, DR CARRILLO Primary Care Unavailable ARLETH ., ROGELIO Consulting Unavailable DILIA Romero Attending Provider Dutch Mendez Unavailable ROBBIN Garcia Primary Care Provider Dominic Hester Attending Provider Mir, DO Dominic Attending Provider [phone] NO FAMILY, PHYSICIAN Primary Care Provider [...] STEVE Referring Unavailable DOMINIC HESTER Attending Unavailable MIR, DOMINIC Attending Unavailable MIR, DOMINIC Attending Unavailable SYLVIA ROMERO Attending Unavailable MIR, DOMINIC Attending Unavailable SYLVIA ROMERO Attending Unavailable DOMINIC HESTER Referring Unavailable DOMINIC HESTER Attending Unavailable Medications Current [...] 1 tablet Orally Twice a day Active citalopram 20 mg oral tablet (3 sources) Serotonin Reuptake Inhibitor Start: 04-19-2025 End: 04-19-2026 take 1 tablet by mouth once daily citalopram (CeleXA) 20 MG tablet Indications: Mood changes Take 1 tablet (20 mg) by mouth Daily 30 tablet 11 04/19/2025 04/19/2026 Active ofloxacin 3 mg/ml ophthalmic solution (1 [...] tablet Indications: confirmed by positive blood test ([facility]) , Nausea Take 1 tablet (4 mg) by mouth every 6 (six) hours if needed for nausea or vomiting for up to 30 doses 30 tablet 2 09/09/2024 Active polysaccharide iron complex 391 mg oral capsule (17 sources) Start: 02-21-2025 End: 02-21-2026 take 1 capsule by mouth once daily iron polysaccharides (ProFe) 391.3 (180 Fe) MG capsule Indications: Low iron Take 1 capsule (391.3 mg) by mouth Daily 30 capsule 11 02/21/2025 02/21/2026 Active Vit No.170-Qtbq-Hinlx ( Vitamin) 27 mg iron- 800 mcg tablet (7 sources) Start: 01-03-2023 take 1 tablet by mouth once daily Vit No.132-Kmws-Edlls ( Vitamin) 27 mg iron- 800 mcg tablet Active 1 TAB PO Daily January 03, 2023 12:00am Start: 01-03-2023 Vit N o.959-Foni-Zuupr ( Vitamin) 27 mg iron- 800 mcg tablet Active TAB TABLET January 02, 2023 11:00pm Start: 01-03-2023 Vit N o.908-Mauk-Ahqhy ( Vitamin) 27 mg iron- 800 mcg tablet Active TAB TABLET January 03, 2023 12:00am Vit-Fe Fumarate-FA ( Vitamins) 28-0.8 MG tablet (20 sources) Start: 09-09-2024 End: 09-09-2025 take 1 tablet by mouth once daily Vit-Fe Fumarate-FA ( Vitamins) 28-0.8 MG tablet Indications: confirmed by positive blood test ([facility]) Take 1 tablet by mouth Daily 30 [...] hours as needed for pain Hydrocodone-Acetami nophen ([place]) 5-325 mg tablet Discontinued 1 TAB PO EVERY 4-6 HOURS as needed for pain 09 07May 14, 2019 June 09, 2019 9:24pm Start: 06-25-2017 End: 01-31-2018 take 1 tablet by mouth every four to six hours as needed for pain Hydrocodone-Acetaminophen ([place]) 5-325 mg tablet Discontinued 1 TAB PO EVERY 4-6 HOURS as needed for pain June 25, 2017 January 31, 2018 4:07pm [id number] actuat albuterol 0.09 mg/actuat metered dose [...] EPIS UNS] Onset: 07-31-2022 Chronic Mood disorders (2 sources) Disturbance in mood; Translations: [Emotional lability] 04-19-2025 Episodic Mood disorders (1 source) Mood disorders; Translations: [DEPRESSION UNSPECIFIED] Onset: 01-06-2023 Other aftercare (1 source) Other filler leaf cutter long (current) drug therapy; Translations: [OTH PRISON CURRENT DRUG THERAPY] Onset: 01-06-2023 Episodic Other [...] Facility US OB BPP W NON-STRESS on 04-21-2025 [place] [address] Ultrasound Report Signed Patient: BREANA CASAS MR#: [id number] : 1990 Acct:[id number] Age/Sex: 34 / F ADM Date: 04/20/25 Loc: US Attending Dr: Sylvia Romero Ordering Physician: Sylvia Romero Date of Service: 04/20/25 Procedure(s): US OB BPP w non-stress Accession Number(s): [id number] cc: Sylvia Romero; Physician,Non-Staff M.D. [place] [id number] Patient Name: BREANA CASAS MRN: [id number] date: 1990 Sex: F Assigned Patient Location: US Current Patient Location: Accession/Order Number: [id number] Exam Date: 04/21/2025 08:12 Report Date: 04/21/2025 08:14 At the request of: SYLVIA ROMERO Procedure: US OB BPP w non-stress BIOPHYSICAL PROFILE: CLINICAL INFORMATION: EXCESSIVE GROWTH COMPARISON: 04/13/2025 There is a single live intrauterine gestation in cephalic presentation. The reported gestational age is 36 weeks 6 days. The heart rate measures 139 beats per minute. 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 FINDINGS: TONE: 1 or more episodes of activity extension and flexion of extremity or opening and closing of the hand [Y] 2/2 GROSS BODY MOVEMENTS: 3 or more discrete body or limb movements [Y] 2/2 BREATHING MOVEMENTS: 1 or more episodes of breathing lasting at least 30 seconds [Y] 2/2 TAMIR: A single deepest vertical pocket of amniotic fluid greater than 2 cm [Y] 2/2 TAMIR: 17.4 cm. This is in normal range. Total score: 8/8 US/US OB BPP w non-stress IMPRESSION: NORMAL BIOPHYSICAL PROFILE. NUCHAL CORD. Impression dictated by: Christine Mckeon M.D. 04/21/2025 8:14 AM Dictation Location: [place] [address] Electronically authenticated by: [id number] Y Date: 04/21/2025 08:14 Dictated By: Christine Mckeon M.D. Signed By: 04/21/25816 DD/ 3 TD/TT: [employer]yclable [employer] Collector: [facility] Radiology, Radiologist, MD - 04/21/2025 [place] [address] Ultrasound Report Signed Patient: BREANA CASAS MR#: [id number] : 1990 Acct:[id number] Age/Sex: 34 / F ADM Date: 04/20/25 Loc: US Attending Dr: Sylvia Romero Ordering Physician: Sylvia Romero Date of Service: 04/20/25 Procedure(s): US OB BPP w non-stress Accession Number(s): [id number] cc: Sylvia Romero; Physician,Non-Staff [place] [facility] [place] [id number] Patient Name: BREANA CASAS MRN: [facility]:[id number] date: 1990 Sex: F Assigned Patient Location: US Current Patient Location: Accession/Order Number: [id number] Exam Date: 04/21/2025 08:12 Report Date: 04/21/2025 08:14 At the request of: SYLVIA ROMERO Procedure: US OB BPP w non-stress BIOPHYSICAL PROFILE: CLINICAL INFORMATION: EXCESSIVE GROWTH COMPARISON: 04/13/2025 There is a single live intrauterine gestation in cephalic presentation. The reported gestational age is 36 weeks 6 days. The heart rate measures 139 beats per minute. 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 FINDINGS: TONE: 1 or more episodes of activity extension and flexion of extremity or opening and closing of the hand [Y] 2/2 GROSS BODY MOVEMENTS: 3 or more discrete body or limb movements [Y] 2/2 BREATHING MOVEMENTS: 1 or more episodes of breathing lasting at least 30 seconds [Y] 2/2 TAMIR: A single deepest vertical pocket of amniotic fluid greater than 2 cm [Y] 2/2 TAMIR: 17.4 cm. This is in normal range. Total score: 8/8 US/US OB BPP w non-stress IMPRESSION: NORMAL BIOPHYSICAL PROFILE. NUCHAL CORD. Impression dictated by: Christine Mckeon M.D. 04/21/2025 8:14 AM Dictation Location: [place] [address] Electronically authenticated by: [id number] Y Date: 04/21/2025 08:14 Dictated By: Christine Mckeon M.D. Signed By: 04/21/25816 DD/ 3 TD/TT: [employer]ycl[employer] Collector: [facility] Radiology Study observation (narrative) [facility] US OB BPP W NON-STRESS Ordered By: Radiologist Radiology on 04-21-2025 [facility] Work Phone: US OB BPP W NON-STRESS on 04-13-[address] [address] Ultrasound Report Signed Patient: BREANA CASAS MR#: [id number] : 1990 Acct:[id number] Age/Sex: 34 / F ADM Date: Loc: US Attending Dr: Sylvia Romero Ordering Physician: Sylvia Romero Date of Service: 04/13/25 Procedure(s): US OB BPP w non-stress Accession Number(s): [id number] cc: Sylvia Romero; Physician,Non-Staff MPaula The [address] [address] Patient Name: BREANA CASAS MRN: [id number] date: 1990 Sex: F Assigned Patient Location: Current Patient Location: [facility] Accession/Order Number: [id number] Exam Date: 04/13/2025 16:16 Report Date: 04/13/2025 [...] Burleson M.D. 04/13/2025 4:17 PM Dictation Location: [place] [address] Electronically authenticated by: [id number] Y Date: 04/13/2025 16:17 Dictated By: Tanner Burleson D.O. Signed By: 04/13/251618 DD/ 16 TD/TT: [employer]yclable [employer] Collector: [facility] Radiology, Radiologist, - 04/13/2025 [place] [address] Ultrasound Report Signed Patient: BREANA CASAS MR#: [id number] : 1990 Acct:[id number] Age/Sex: 34 / F ADM Date: Loc: Attending Dr: Sylvia Romero Ordering Physician: Sylvia Romero Date of Service: 04/13/25 Procedure(s): US OB BPP w non-stress Accession Number(s): [id number] cc: Sylvia Romero; Physician,Non-Staff [place] [facility] [place] [id number] Patient Name: BREANA CASAS MRN: [facility]:[id number] date: 1990 Sex: F Assigned Patient Location: US Current Patient Location: [facility] Accession/Order Number: [id number] Exam Date: 04/13/2025 16:16 Report Date: 04/13/2025 [...] Burleson M.D. 04/13/2025 4:17 PM Dictation Location: [place] [address] Electronically authenticated by: [id number] Y Date: 04/13/2025 16:17 Dictated By: Tanner Burleson D.O. Signed By: 04/13/251618 DD/ 16 TD/TT: [employer]yclable [employer] Collector: [facility] Radiology Study observation (narrative) [facility] US OB BPP W NON-STRESS Ordered By: Radiologist Radiology on 04-13-2025 [facility] Work Phone: US OB GROWTHon 04-06-2025 [place] [address] Ultrasound Report Signed Patient: BREANA CASAS MR#: [id number] : 1990 Acct:[id number] Age/Sex: 34 / F ADM Date: 04/06/25 Loc: US Attending Dr: Dominic Hester D.O. Ordering Physician: Dominic Hester D.O. Date of Service: 04/06/25 Procedure(s): US OB growth Accession Number(s): [id number] cc: Dominic Hester D.O.; Physician,Non-Staff [place] [facility] [address] [address] Patient Name: BREANA CASAS MRN: [id number] date: 1990 Sex: F Assigned Patient Location: US Current Patient Location: US Accession/Order Number: [id number] Exam Date: 04/06/2025 14:46 Report Date: 04/06/2025 [...] Jr., D.O. 04/06/2025 2:48 PM Dictation Location: [place] [address] Electronically authenticated by: [id number] Y Date: 04/06/2025 14:48 Dictated By: Seferino Tay M.D. Signed By: 04/06/25 1451 DD/ 1448 TD/TT: Recyclable Materials Collector: [facility] Radiology, Radiologist, MD - 04/06/2025 [place] [address] Ultrasound Report Signed Patient: BREANA CASAS MR#: [id number] : 1990 Acct:[id number] Age/Sex: 34 / F ADM Date: 04/06/25 Loc: US Attending Dr: Dominic Hester D.O. Ordering Physician: Dominic Hester D.O. Date of Service: 04/06/25 Procedure(s): US OB growth Accession Number(s): [id number] cc: Dominic Hester D.O.; Physician,Non-Staff [facility] [place] [id number] Patient Name: BREANA CASAS MRN: [facility]:[id number] date: 1990 Sex: F Assigned Patient Location: US Current Patient Location: US Accession/Order Number: [id number] Exam Date: 04/06/2025 14:46 Report Date: 04/06/2025 [...] Jr., D.O. 04/06/2025 2:48 PM Dictation Location: [place] Electronically authenticated by: [id number] Y Date: 04/06/2025 14:48 Dictated By: Seferino Tay M.D. Signed By: 04/06/25 145 DD/ 1448 TD/TT: Recyclable Materials Collector: [facility] Radiology Study observation (narrative) [facility] OB GROWTHOrdered By: Shane ologvicente Radiology on 04-06-2025 [facility] Work Phone: Urinalysis macro (dipstick) panel (U)on 04-06-2025 Bilirubin, UA Negative Negative - 4(70) +++ mg/dL [facility] Blood, UA Negative Negative - 50 Brent/mcL [facility] Clarity, UA Clear [facility] Color, UA Yellow [facility] Glucose, UA Negative Negative - 2000(110) ++++ mg/dL [facility] Interpretation and review of laboratory results Normal [facility] Ketones, UA Negative Negative - 160(16) ++++ mg/dL [facility] Leukocytes, UA Positive Negative - 500+++ Kae/mcL [facility] Comment on above: small Nitrite, UA Negative Negative - Positive [facility] pH, UA 7 5 - 9 [facility] Protein, UA Negative Negative - 2000(20) ++++ mg/dL [facility] Spec Grav, UA 1.005 1 - 1.03 [facility] Urobilinogen, UA 0.2 0.2 - 12 mg/dL [facility] Urinalysis macro (dipstick) panel (U)on 03-23-2025 Bilirubin, UA Negative Negative - 4(70) +++ mg/dL [facility] Blood, UA Negative Negative - 50 Brent/mcL [facility] Clarity, UA Clear [facility] Color, UA Yellow [facility] Glucose, UA Negative Negative - 1999(110) ++++ mg/dL [facility] Interpretation and review of laboratory results Normal [facility] Ketones, UA Positive Negative - 160(16) ++++ mg/dL [facility] Comment on above: 15 Leukocytes, UA Negative Negative - 500+++ Kae/mcL [facility] Nitrite, UA Negative Negative - Positive [facility] pH, UA 7 5 - 9 [facility] Protein, UA Negative Negative - 1999(20) ++++ mg/dL [facility] Spec Grav, UA 1.015 1 - 1.03 [facility] Urobilinogen, UA 0.2 0.2 - 12 mg/dL [facility] Urinalysis macro (dipstick) panel (U)on 03-09-2025 Bilirubin, UA Negative Negative - 4(70) +++ mg/dL [facility] Blood, UA Negative Negative - 50 Brent/mcL [facility] Clarity, UA Clear [facility] Color, UA Yellow [facility] Glucose, UA Negative Negative - 1999(110) ++++ mg/dL [facility] Interpretation and review of laboratory results Abnormal [facility] Ketones, UA Negative Negative - 160(16) ++++ mg/dL [facility] Leukocytes, UA Positive Negative - 500+++ Kae/mcL [facility] Comment on above: small Nitrite, UA Negative Negative - Positive [facility] pH, UA 7 5 - 9 [facility] Protein, UA Negative Negative - 1999(20) ++++ mg/dL [facility] Spec Grav, UA 1.015 1 - 1.03 [facility] Urobilinogen, UA 0.2 0.2 - 12 mg/dL [facility] Urinalysis macro (dipstick) panel (U)on 02-23-2025 Bilirubin, UA Negative Negative - 4(70) +++ mg/dL [facility] Blood, UA Negative Negative - 50 Brent/mcL [facility] Clarity, UA Clear [facility] Color, UA Yellow [facility] Glucose, UA Negative Negative - 1999(110) ++++ mg/dL [facility] Interpretation and review of laboratory results Normal [facility] Ketones, UA Negative Negative - 160(16) ++++ mg/dL [facility] Leukocytes, UA Negative Negative - 500+++ Kae/mcL [facility] Nitrite, UA Negative Negative - Positive [facility] pH, UA 6.5 5 - 9 [facility] Protein, UA Negative Negative - 2000(20) ++++ mg/dL [facility] Spec Grav, UA 1.01 1 - 1.03 [facility] Urobilinogen, UA 0.2 0.2 - 12 mg/dL [facility] ALL CBC WITH AUTO DIFFon BASOPHILS ABSOLUTE AUTO 0 N [facility] Basophils/100 WBC (Bld) 0.2 % 0.2 - 2.0 % [facility] Eosinophils/100 WBC (Bld) 2.8 % 0.9 - 7.0 % [facility] Erythrocyte distribution width (RBC) [Ratio] 12.9 % 11.0 - 15.0 % [facility] Hematocrit (Bld) [Volume fraction] 30.5 % Low 36.0 - 48.0 % [facility] Hemoglobin (Bld) [Mass/Vol] 10.5 g/dL Low 12.0 - 16.0 g/dL [facility] IMMATURE GRANULOCYTES ABS AUTO 0.02 [facility] Immature granulocytes/100 WBC (Bld) 0.3 % 0.0 - 0.5 % [facility] Interpretation and review of laboratory results Abnormal [facility] LYMPHOCYTES ABSOLUTE AUTO 0.9 Low [facility] Lymphocytes/100 WBC (Bld) 15.7 % Low 20.5 - 60.0 % [facility] MCH (RBC) [Entitic mass] 33.2 pg 26.7 - 34.0 pg [facility] MCHC (RBC) [Mass/Vol] 34.4 g/dL 29.9 - 35.2 g/dL [facility] MCV (RBC) [Entitic vol] 96.5 fL 81.0 - 99.0 fL [facility] MONOCYTES ABSOLUTE AUTO 0.4 N [facility] Monocytes/100 WBC (Bld) 7.7 % 1.7 - 12.0 % [facility] NEUTROPHILS ABSOLUTE AUTO 4.2 [facility] Neutrophils/100 WBC (Bld) 73.3 % 43.0 - 75.0 % [facility] Platelet mean volume (Bld) [Entitic vol] 9.6 fL 9.5 - 13.5 fL [facility] EO # 0.2 [facility] PLT 167 [facility] RBC 3.16 Low [facility] WBC 5.7 [facility] OB LIMITED 1+ FETUSESon 0 02-17-2025 US OB LIMITED 1+ FETUSES EXAM: US [...] II, MD, PHD at 18-Feb-2025 10:23:07 AM [facility] Normal Not Available Comment on above: Order Comment: US OB INCOMPLETE ANATOMY Estimated Date of Delivery: 05/12/25 Gestational Age as of 01/31/2025: 25w4d Alanine aminotransferase [En zymatic activity/volume] in Serum or PlasmaOrdered By: Malcolm Gaston on 02-10-2025 ALT [Catalytic activity/Vol] Alanine aminotransferase [Enzymatic activity/volume] in Serum or Plasma 752 [facility] Albumin [Mass/volume] in Ser um or Plasma by Bromocresol green (BCG) dye binding methoOrdered By: Malcolm Gaston on 02-10-2025 Albumin BCG dye [Mass/Vol] Albumin [Mass/volume] in Serum or Plasma by Bromocresol green (BCG) dye binding metho 3.5-5.7 [facility] Alkaline phosphatase [Enzyma tic activity/volume] in Serum or PlasmaOrdered By: Malcolm Gaston on 02-10-2025 ALP [Catalytic activity/Vol] Alkaline phosphatase [Enzymatic activity/volume] in Serum or Plasma 34-104 [facility] Appearance of UrineOrdered B y: Malcolm Gaston on 02-10-2025 Appearance (U) Urine appearance Clear [facility] Aspartate aminotransferase [ Enzymatic activity/volume] in Serum or PlasmaOrdered By: Malcolm Gaston on 02-10-2025 AST [Catalytic activity/Vol] Aspartate aminotransferase [Enzymatic activity/volume] in Serum or Plasma 13-39 [facility] Basic Metabolic Panelon Anion gap [Moles/Vol] 7.9 mmol/L Normal 6.0-15.0 [facility] Comment on above: Performed By: #### C BC, HEPATIC, BMP, LIPASE #### [address] Calcium [Mass/Vol] 8.4 mg/dL Low 8.6-10.3 The [facility] Comment on above: Performed By: #### C BC, HEPATIC, BMP, LIPASE #### [address] Chloride [Moles/Vol] 107 mmol/L Normal 98-107 [facility] Comment on above: Performed By: #### C BC, HEPATIC, BMP, LIPASE #### [address] CO2 [Moles/Vol] 24.8 mmol/L Normal 21.0-31.[address] [facility] Comment on above: Performed By: #### C BC, HEPATIC, BMP, LIPASE #### [address] Creatinine [Mass/Vol] 0.56 mg/dL Low 0.60-1.20 [facility] Comment on above: Performed By: #### C BC, HEPATIC, BMP, LIPASE #### [address] Creatinine Clr Calc Pharmacy 136.70 Normal [facility] Comment on above: Performed By: #### C BC, HEPATIC, BMP, LIPASE #### [place] [address] [place] GFR/1.73 sq M.predicted MDRD (S/P/Bld) [Vol rate/Area] mL/min/{1.73_m2} Normal [facility] Comment on above: Performed By: #### C BC, HEPATIC, BMP, LIPASE #### [address] [place] [address] [place] Glucose [Mass/Vol] 75 mg/dL Normal 70-100 The [facility] Comment on above: Result Comment: [place] Glucose Reference Range is dependent on time and content of last meal. Glucose of more than 200 mg/dL in a nonstressed, ambulatory subject supports the diagnosis of Diabetes Mellitus. ADA recommended reference range Performed By: #### C BC, HEPATIC, BMP, LIPASE #### [facility] [address] Potassium [Moles/Vol] 3.7 mmol/L Normal 3.5-5.1 [facility] Comment on above: Performed By: #### C BC, HEPATIC, BMP, LIPASE #### [address] Sodium [Moles/Vol] 136 mmol/L Normal 136-145 The [facility] Comment on above: Performed By: #### C BC, HEPATIC, BMP, LIPASE #### [address] Urea nitrogen [Mass/Vol] 6 mg/dL Low 7-25 [facility] Comment on above: Performed By: #### C BC, HEPATIC, BMP, LIPASE #### [address] Basophils Auto (Bld) [#/Vol] Ordered By: Malcolm Gaston on 02-10-2025 Basophils (Bld) [#/Vol] Automated basoph il count 0.0-0.2 [facility] Basophils/100 WBC Auto (Bld) Ordered By: Malcolm Gaston on 02-10-2025 Basophils/100 WBC (Bld) Automated basophil % . [facility] Bilirubin Test strip Ql (U)O rdered By: Malcolm Gaston on 02-10-2025 Bilirubin Ql (U) Bilirubin.total [Presence] in Urine by Test strip Negative [facility] Bilirubin.direct [Mass/volum e] in Serum or PlasmaOrdered By: Malcolm Gaston on 02-10-2025 Bilirubin.direct [Mass/Vol] Bilirubin.direct [Mass/volume] in Serum or Plasma 0.03-0.18 [facility] Bilirubin.total [Mass/volume ] in Serum or PlasmaOrdered By: Malcolm Gaston on 02-10-2025 Bilirubin [Mass/Vol] Bilirubin.total [Mass/volume] in Serum or Plasma 0.3-1.0 [facility] Calcium [Mass/volume] in Ser um or PlasmaOrdered By: Malcolm Gaston on 02-10-2025 Calcium [Mass/Vol] Calcium [Mass/volume] in Serum or Plasma Low 8.6-10.3 [facility] Carbon dioxide, total [Moles /volume] in Serum or PlasmaOrdered By: Malcolm Gaston on 02-10-2025 CO2 [Moles/Vol] Carbon dioxide, total [Moles/volume] in Serum or Plasma 21.0-31.0 [facility] Chloride [Moles/volume] in S mehdi or PlasmaOrdered By: Malcolm Gaston on 02-10-2025 Chloride [Moles/Vol] Chloride [Moles/volume] in Serum or Plasma 98-107 [facility] Color Auto (U)Ordered By: Fang Gaston on 02-10-2025 Color (U) Color of Urine by Auto Yellow [facility] Complete Blood Count Auto Di ffon 02-10-2025 Basophils (Bld) [#/Vol] 0.0 10*3/uL Normal 0.0-0.2 [facility] Comment on above: Result Comment: PERF ORMED BY: [place] [address] PATHOLOGIST [employer] OPERATOR [employer]ATION BRANDI GONZALEZ M.D. Performed By: #### C BC, HEPATIC, BMP, LIPASE #### [facility] [address] Basophils/100 WBC (Bld) 0.5 % Normal . T abby [facility] Comment on above: Performed By: #### C BC, HEPATIC, BMP, LIPASE #### [facility] [address] Eosinophils (Bld) [#/Vol] 0.2 10*3/uL Normal 0.0-0.45 [facility] Comment on above: Performed By: #### C BC, HEPATIC, BMP, LIPASE #### [address] Eosinophils/100 WBC (Bld) 3.8 % Normal . [facility] Comment on above: Performed By: #### C BC, HEPATIC, BMP, LIPASE #### [address] Erythrocyte distribution width (RBC) [Ratio] 13.1 % Normal 11.9-15.3 [facility] Comment on above: Performed By: #### C BC, HEPATIC, BMP, LIPASE #### [address] Hematocrit (Bld) [Volume fraction] 32.0 % Low 34.0-46.4 [facility] Comment on above: Performed By: #### C BC, HEPATIC, BMP, LIPASE #### [address] Hemoglobin (Bld) [Mass/Vol] 11.3 g/dL Low 11.8-15.4 [facility] Comment on above: Performed By: #### C BC, HEPATIC, BMP, LIPASE #### [address] Lymphocytes (Bld) [#/Vol] 0.9 10*3/uL Low 1.00-4.8 [facility] Comment on above: Performed By: #### C BC, HEPATIC, BMP, LIPASE #### [address] Lymphocytes/100 WBC (Bld) 16.5 % Normal . [facility] Comment on above: Performed By: #### C BC, HEPATIC, BMP, LIPASE #### [address] MCH (RBC) [Entitic mass] 33.9 pg Normal 24.7-34.3 [facility] Comment on above: Performed By: #### C BC, HEPATIC, BMP, LIPASE #### [address] MCV (RBC) [Entitic vol] 95.5 fL Normal 80-100 [facility] Comment on above: Performed By: #### C BC, HEPATIC, BMP, LIPASE #### [address] Mean Corpuscular HGB Conc 35.5 g/dL High 32.0-35.0 [facility] Comment on above: Performed By: #### C BC, HEPATIC, BMP, LIPASE #### [address] Monocytes (Bld) [#/Vol] 0.4 10*3/uL Normal 0.0-0.8 [facility] Comment on above: Performed By: #### C BC, HEPATIC, BMP, LIPASE #### [address] Monocytes/100 WBC (Bld) 20.48 % High 0.00-20.00 [facility] Comment on above: Result Comment: For adults in ED, MDW > 20.0 may be associated with a higher risk of sepsis during the first 12 hrs of hospital admission Performed By: #### C BC, HEPATIC, BMP, LIPASE #### [address] Monocytes/100 WBC (Bld) 7.7 % Normal . [facility] Comment on above: Performed By: #### C BC, HEPATIC, BMP, LIPASE #### [address] Neutrophils (Bld) [#/Vol] 3.7 10*3/uL Normal 1.8-7.7 [facility] Comment on above: Performed By: #### C BC, HEPATIC, BMP, LIPASE #### [address] Neutrophils/100 WBC (Bld) 71.5 % Normal . [facility] Comment on above: Performed By: #### C BC, HEPATIC, BMP, LIPASE #### [address] NRBC% 0.0 /100{WBC} Normal 0-0.5 The [facility] Comment on above: Performed By: #### C BC, HEPATIC, BMP, LIPASE #### [facility] [address] Platelet mean volume (Bld) [Entitic vol] 7.9 fL Normal 6.3-10.7 The [facility] Comment on above: Performed By: #### C BC, HEPATIC, BMP, LIPASE #### [facility] [address] Platelets (Bld) [#/Vol] 203 10*3/uL Normal 150-450 [facility] Comment on above: Performed By: #### C BC, HEPATIC, BMP, LIPASE #### [address] RBC (Bld) [#/Vol] 3.35 10*6/uL Low 3.60-5.00 The [facility] Comment on above: Performed By: #### C BC, HEPATIC, BMP, LIPASE #### [address] WBC (Bld) [#/Vol] 5.2 10*3/uL Normal 3.8-11.6 The [facility] Comment on above: Performed By: #### C BC, HEPATIC, BMP, LIPASE #### [address] Creatinine [Mass/volume] in Serum or PlasmaOrdered By: Malcolm Gaston on 02-10-2025 Creatinine [Mass/Vol] Creatinine [Mass/volume] in Serum or Plasma Low 0.60-1.20 [facility] Dipstick and Microscopicon 0 02-10-2025 Appearance (U) Clear Normal Clear The [facility] Comment on above: Order Comment: Name Collection Type:: Clean-Voided Midstream Performed By: #### C BC, HEPATIC, BMP, LIPASE #### [address] Bacteria,Urine Rare Normal None Seen [facility] Comment on above: Order Comment: Name Collection Type:: Clean-Voided Midstream Performed By: #### C BC, HEPATIC, BMP, LIPASE #### [facility] [address] [place] [address] [place] Bilirubin,Urine Negative Normal Negative The [facility] Comment on above: Order Comment: Name Collection Type:: Clean-Voided Midstream Performed By: #### C BC, HEPATIC, BMP, LIPASE #### [address] Color (U) Light-Yellow Normal Yellow The [facility] Comment on above: Order Comment: Name Collection Type:: Clean-Voided Midstream Performed By: #### C BC, HEPATIC, BMP, LIPASE #### [address] Glucose Ql (U) Normal Normal Normal [facility] Comment on above: Order Comment: Name Collection Type:: Clean-Voided Midstream Performed By: #### C BC, HEPATIC, BMP, LIPASE #### [address] Hyaline Casts,Urine None Normal 0-8 [facility] Comment on above: Order Comment: Name Collection Type:: Clean-Voided Midstream Performed By: #### C BC, HEPATIC, BMP, LIPASE #### [address] Ketones Ql (U) 1+ High Negative [facility] Comment on above: Order Comment: Name Collection Type:: Clean-Voided Midstream Performed By: #### C BC, HEPATIC, BMP, LIPASE #### [address] Leukocyte esterase Test strip Ql (U) 2+ High Negative [facility] Comment on above: Order Comment: Name Collection Type:: Clean-Voided Midstream Performed By: #### C BC, HEPATIC, BMP, LIPASE #### [place] [address] [place] Mucus,Urine 2+ Critically abnormal [facility] Comment on above: Order Comment: Name Collection Type:: Clean-Voided Midstream Result Comment: PERF ORMED BY: [place] [address] PATHOLOGIST [employer] OPERATOR INSULATION BRANDI GONZALEZ M.D. Performed By: #### C BC, HEPATIC, BMP, LIPASE #### [address] Nitrite,Urine Negative Normal Negative The [facility] Comment on above: Order Comment: Name Collection Type:: Clean-Voided Midstream Performed By: #### C BC, HEPATIC, BMP, LIPASE #### [address] Occult Blood,Urine Negative Normal Negative The [facility] Comment on above: Order Comment: Name Collection Type:: Clean-Voided Midstream Result Comment: PERF ORMED BY: [place] [address] PATHOLOGIST [employer]UPOLA OPERATOR INSULATION BRANDI GONZALEZ M.D. Performed By: #### C BC, HEPATIC, BMP, LIPASE #### [address] pH (U) 6.5 [pH] Normal 5.0-9.0 [facility] Comment on above: Order Comment: Name Collection Type:: Clean-Voided Midstream Performed By: #### C BC, HEPATIC, BMP, LIPASE #### [address] Protein,Urine Negative Normal Negative [facility] Comment on above: Order Comment: Name Collection Type:: Clean-Voided Midstream Performed By: #### C BC, HEPATIC, BMP, LIPASE #### [address] RBC,Urine 1-2 Normal 0-4 [facility] Comment on above: Order Comment: Name Collection Type:: Clean-Voided Midstream Performed By: #### C BC, HEPATIC, BMP, LIPASE #### [address] Specificy [place],Urine 1.018 Normal 1.001-1.030 [facility] Comment on above: Order Comment: Name Collection Type:: Clean-Voided Midstream Performed By: #### C BC, HEPATIC, BMP, LIPASE #### [facility] [address] Squamous Epithelial Cell,Urine 5-9 High 0-2 [facility] Comment on above: Order Comment: Name Collection Type:: Clean-Voided Midstream Performed By: #### C BC, HEPATIC, BMP, LIPASE #### [facility] [address] Urobilinogen,Urine Normal Normal Normal The [facility] Comment on above: Order Comment: Name Collection Type:: Clean-Voided Midstream Performed By: #### C BC, HEPATIC, BMP, LIPASE #### [facility] [address] WBC,Urine 3-4 Normal 0-4 [facility] Comment on above: Order Comment: Name Collection Type:: Clean-Voided Midstream Performed By: #### C BC, HEPATIC, BMP, LIPASE #### [facility] [address] Eosinophils Auto (Bld) [#/Vo l]Ordered By: Malcolm Gaston on 02-10-2025 Eosinophils (Bld) [#/Vol] Automated eosinophil count 0.0-0.45 [facility] Eosinophils/100 WBC Auto (Bl d)Ordered By: Malcolm Gaston on 02-10-2025 Eosinophils/100 WBC (Bld) Automated eosinophil % . [facility] Erythrocyte distribution wid th Auto (RBC) [Ratio]Ordered By: Malcolm Gaston on 02-10-2025 Erythrocyte distribution width (RBC) [Ratio] Erythrocyte distribution width [Ratio] by Automated count 11.9-15.3 [facility] Globulin Calc (S) [Mass/Vol] Ordered By: Malcolm Gaston on 02-10-2025 Globulin (S) [Mass/Vol] Serum globulin measurement by calculation (mass/volume) [facility] Glucose [Mass/volume] in Ser um or PlasmaOrdered By: Malcolm Gaston on 02-10-2025 Glucose [Mass/Vol] Glucose [Mass/volume] in Serum or Plasma 70-100 [facility] Comment on above: ADA recommended refe [...] [Mass/volume] in Urine by Test strip Normal [facility] Hematocrit Auto (Bld) [Volum e fraction]Ordered By: Malcolm Gaston on 02-10-2025 Hematocrit (Bld) [Volume fraction] Hematocrit [Volume Fraction] of Blood by Automated count Low 34.0-46.4 [facility] Hemoglobin Test strip Ql (U) Ordered By: Malcolm Gaston on 02-10-2025 Hemoglobin Ql (U) Hemoglobin [Presence] in Urine by Test strip Negative [facility] Hemoglobin [Mass/volume] in BloodOrdered By: Malcolm Gaston on 02-10-2025 Hemoglobin (Bld) [Mass/Vol] Hemoglobin [Mass/volume] in Blood Low 11.8-15.4 [facility] Hepatic Panelon 02-10-2025 Albumin [Mass/Vol] 3.6 g/dL Normal 3.5-5.7 [facility] Comment on above: Performed By: #### C BC, HEPATIC, BMP, LIPASE #### [address] Albumin/Globulin [Mass ratio] 1.4 {ratio} Normal [facility] Comment on above: Performed By: #### C BC, HEPATIC, BMP, LIPASE #### [facility] [address] ALP [Catalytic activity/Vol] 74 U/L Normal 34-104 [facility] Comment on above: Performed By: #### C BC, HEPATIC, BMP, LIPASE #### [facility] [address] [place] [id number] [place] ALT [Catalytic activity/Vol] 13 U/L Normal 7-52 [facility] Comment on above: Performed By: #### C BC, HEPATIC, BMP, LIPASE #### [facility] [address] AST [Catalytic activity/Vol] 17 U/L Normal 13-39 [facility] Comment on above: Performed By: #### C BC, HEPATIC, BMP, LIPASE #### [address] Bilirubin [Mass/Vol] 0.4 mg/dL Normal 0.3-1.0 [facility] Comment on above: Performed By: #### C BC, HEPATIC, BMP, LIPASE #### [address] Bilirubin,Indirect 0.3 mg/dL Normal [facility] Comment on above: Performed By: #### C BC, HEPATIC, BMP, LIPASE #### [address] Bilirubin.indirect [Mass/Vol] 0.10 mg/dL Normal 0.03-0.18 [facility] Comment on above: Performed By: #### C BC, HEPATIC, BMP, LIPASE #### [address] Globulin (S) [Mass/Vol] 2.6 g/dL Normal T [facility] Comment on above: Performed By: #### C BC, HEPATIC, BMP, LIPASE #### [address] Protein [Mass/Vol] 6.2 g/dL Low 6.4-8.9 [facility] Comment on above: Performed By: #### C BC, HEPATIC, BMP, LIPASE #### [address] Ketones Test strip Ql (U)Ord ered By: Malcolm Gaston on 02-10-2025 Ketones Ql (U) Ketones [Presence] in Urine by Test strip High Negative [facility] Leukocyte esterase [Presence ] in Urine by Test stripOrdered By: Malcolm Gaston on 02-10-2025 Leukocyte esterase Test strip Ql (U) Leukocyte esterase [Presence] in Urine by Test strip High Negative [facility] Leukocytes [#/volume] correc ira for nucleated erythrocytes in Blood by Automated counOrdered By: Malcolm Gaston on 02-10-2025 WBC corrected for nucl RBC Auto (Bld) [#/Vol] Leukocytes [#/volume] corrected for nucleated erythrocytes in Blood by Automated coun 3.8-11.6 [facility] Lipaseon 02-10-2025 Lipase [Catalytic activity/Vol] 21.0 U/L Normal 11.0-82.0 [facility] Comment on above: Result Comment: PERF ORMED BY: [facility] [address] [place] [address] PATHOLOGIST [employer]UPOLA OPERATOR INSULATION BRANDI GONZALEZ M.D. Performed By: #### C BC, HEPATIC, BMP, LIPASE #### [facility] [address] Lipase [Enzymatic activity/v olume] in Serum or PlasmaOrdered By: Malcolm Gaston on 02-10-2025 Lipase [Catalytic activity/Vol] Lipase [Enzymatic activity/volume] in Serum or Plasma 11.0-82.0 [facility] Lymphocytes Auto (Bld) [#/Vo l]Ordered By: Malcolm Gaston on 02-10-2025 Lymphocytes (Bld) [#/Vol] Lymphocytes [#/volume] in Blood by Automated count Low 1.00-4.8 [facility] Lymphocytes/100 WBC Auto (Bl d)Ordered By: Malcolm Gaston on 02-10-2025 Lymphocytes/100 WBC (Bld) Lymphocytes/100 leukocytes in Blood by Automated count . [facility] MCH Auto (RBC) [Entitic mass ]Ordered By: Malcolm Gaston on 02-10-2025 MCH (RBC) [Entitic mass] MCH [Entitic mass] by Automated count 24.7-34.3 [facility] MCHC Auto (RBC) [Mass/Vol]Or dered By: Malcolm Gaston on 02-10-2025 MCHC (RBC) [Mass/Vol] MCHC [Mass/volume] by Automated count High 32.0-35.0 [facility] MCV Auto (RBC) [Entitic vol] Ordered By: Malcolm Gaston on 02-10-2025 MCV (RBC) [Entitic vol] MCV [Entitic vol ume] by Automated count 80-100 [facility] Monocyte distribution width [Entitic volume] in Blood by AutomatedOrdered By: Malcolm Gaston on 02-10-2025 Monocyte distribution width Auto (Bld) [Entitic vol] Monocyte distribution width [Entitic volume] in Blood by Automated High 0.00-20.00 [facility] Comment on above: For adults in ED, MD W > 20.0 may be associated with a higher risk of sepsis during the first 12 hrs of hospital admission Monocytes Auto (Bld) [#/Vol] Ordered By: Malcolm Gaston on 02-10-2025 Monocytes (Bld) [#/Vol] Automated blood monocyte count 0.0-0.8 [facility] Monocytes/100 WBC Auto (Bld) Ordered By: Malcolm Gaston on 02-10-2025 Monocytes/100 WBC (Bld) Automated monocyte % . [facility] Neutrophils Auto (Bld) [#/Vo l]Ordered By: Malcolm Gaston on 02-10-2025 Neutrophils (Bld) [#/Vol] Neutrophils [#/volume] in Blood by Automated count 1.8-7.7 [facility] Neutrophils/100 WBC Auto (Bl d)Ordered By: Malcolm Gaston on 02-10-2025 Neutrophils/100 WBC (Bld) Automated neutrophil % . [facility] Nitrite Test strip Ql (U)Ord ered By: Malcolm Gaston on 02-10-2025 Nitrite Ql (U) Nitrite [Presence] in Urine by Test strip Negative [facility] No Panel InformationOrdered By: Malcolm Gaston on 02-10-2025 Estimated GFR (CKD-EPI) > 60.0 mL/Min [facility] Creatinine Clearance (Chem 136.70 [facility] Nucleated erythrocytes [Pres ence] in Blood by Automated countOrdered By: Malcolm Gaston on 02-10-2025 Nucleated RBC Auto Ql (Bld) Nucleated erythrocytes [Presence] in Blood by Automated count 0-0.5 [facility] Platelet mean volume Auto (B ld) [Entitic vol]Ordered By: Malcolm Gaston on 02-10-2025 Platelet mean volume (Bld) [Entitic vol] Platelet mean volume [Entitic volume] in Blood by Automated count 6.3-10.7 [facility] Platelets Auto (Bld) [#/Vol] Ordered By: Malcolm Gaston on 02-10-2025 Platelets (Bld) [#/Vol] Platelets [#/vol ume] in Blood by Automated count 150-450 [facility] Potassium [Moles/volume] in Serum or PlasmaOrdered By: Malcolm Gaston on 02-10-2025 Potassium [Moles/Vol] Potassium [Moles/volume] in Serum or Plasma 3.5-5.1 [facility] Protein Test strip (U) [Mass /Vol]Ordered By: Malcolm Gaston on 02-10-2025 Protein (U) [Mass/Vol] Protein [Mass/volume] in Urine by Test strip Negative [facility] Protein [Mass/volume] in Ser um or PlasmaOrdered By: Malcolm Gaston on 02-10-2025 Protein [Mass/Vol] Protein [Mass/volume] in Serum or Plasma Low 6.4-8.9 [facility] RBC Auto (Bld) [#/Vol]Ordere d By: Malcolm Gaston on 02-10-2025 RBC (Bld) [#/Vol] Erythrocytes [#/volume] in Blood by Automated count Low 3.60-5.00 [facility] Serum or plasma albumin/glob ulin mass ratioOrdered By: Malcolm Gaston on 02-10-2025 Albumin/Globulin [Mass ratio] Serum or plasma albumin/globulin mass ratio [facility] Serum or plasma anion gap de terminationOrdered By: Malcolm Gaston on 02-10-2025 Anion gap [Moles/Vol] Serum or plasma anion gap determination 6.0-15.0 [facility] Serum or plasma non-glucuron idated bilirubin measurement (mass/volume)Ordered By: Malcolm Gaston on 02-10-2025 Bilirubin.indirect [Mass/Vol] Serum or plasma non-glucuronidated bilirubin measurement (mass/volume) [facility] Sodium [Moles/volume] in Ser um or PlasmaOrdered By: Malcolm Gaston on 02-10-2025 Sodium [Moles/Vol] Sodium [Moles/volume] in Serum or Plasma 136-145 [facility] Specific gravity Test strip (U) [Rel density]Ordered By: Malcolm Gaston on 02-10-2025 Specific gravity (U) [Rel density] Specific gravity of Urine by Test strip 1.001-1.030 [facility] Urea nitrogen [Mass/volume] in Serum or PlasmaOrdered By: Malcolm Gaston on 02-10-2025 Urea nitrogen [Mass/Vol] Urea nitrogen [Mass/volume] in Serum or Plasma Low 7-25 [facility] Urobilinogen Test strip (U) [Mass/Vol]Ordered By: Malcolm Gaston on 02-10-2025 Urobilinogen (U) [Mass/Vol] Urobilinogen [Mass/volume] in Urine by Test strip Normal [facility] WBC Auto (Bld) [#/Vol]Ordere d By: Malcolm Gaston on 02-10-2025 WBC (Bld) [#/Vol] Leukocytes [#/volume] in Blood by Automated count 3.8-11.6 [facility] pH Test strip (U)Ordered By: Malcolm Gaston on 02-10-2025 pH (U) pH of Urine by Test strip 5.0-9.0 [facility] Urinalysis macro (dipstick) panel (U)on 01-31-2025 Bilirubin, UA Negative Negative - 4(70) +++ mg/dL [facility] Blood, UA Negative Negative - 50 Brent/mcL [facility] Clarity, UA Clear [facility] Color, UA Yellow [facility] Glucose, UA Negative Negative - 2000(110) ++++ mg/dL [facility] Interpretation and review of laboratory results Abnormal [facility] Ketones, UA Negative Negative - 160(16) ++++ mg/dL [facility] Leukocytes, UA Positive Negative - 500+++ Kae/mcL [facility] Comment on above: small Nitrite, UA Negative Negative - Positive [facility] pH, UA 6 5 - 9 [facility] Protein, UA Negative Negative - 2000(20) ++++ mg/dL [facility] Spec Grav, UA 1.02 1 - 1.03 [facility] Urobilinogen, UA 0.2 0.2 - 12 mg/dL [facility] US OB 14+ WEEKS ANATOMY SCAN [...] II, MD, PHD at 28-Dec-2024 09:45:37 PM [facility] Normal Not Available Comment on above: Order Comment: US OB ANATOMY SINGLE W US OB CERVICAL LENGTH Estimated Date of Delivery: 05/12/25 Gestational Age as of 11/30/2024: 16w5d Urinalysis macro (dipstick) panel (U)on 12-28-2024 Bilirubin, UA Negative Negative - 4(70) +++ mg/dL [facility] Blood, UA Positive Negative - 50 Brent/mcL [facility] Comment on above: trace Clarity, UA Clear [facility] Color, UA Yellow [facility] Glucose, UA Negative Negative - 1999(110) ++++ mg/dL [facility] Interpretation and review of laboratory results Abnormal [facility] Ketones, UA Negative Negative - 160(16) ++++ mg/dL [facility] Leukocytes, UA Negative Negative - 500+++ Kae/mcL [facility] Nitrite, UA Negative Negative - Positive [facility] pH, UA 6 5 - 9 [facility] Protein, UA Negative Negative - 1999(20) ++++ mg/dL [facility] Spec Grav, UA 1.015 1 - 1.03 [facility] Urobilinogen, UA 0.2 0.2 - 12 mg/dL [facility] IGP,APTIMA HPV,AGE GDLNon AGE GDLN ACOG TESTING Note . [facility] Comment on above: TESTS RESULT FLAG U NITS REF RANGE LAB Clinician Provided Cytology Information Source.............Cervix;Endocervix No. of containers..01 ThinPrep Vial Age Algo ACOG Katerin... 30- FLAG LEGEND: L-Low Normal,H-High Normal,LL-Alert Low,HH-Alert High <-Panic Low,>-Panic High,A-Abnormal,AA-Critical Abnormal Performed at: 01 =G [address] [place] [address] Shea Yun MD, HPV APTIMA Negative Negative [facility] Comment on above: This nucleic acid am plification test detects fourteen high- risk HPV types (16,18,31,33,35,39,45,51,52,56,58,59,66,68) without differentiation. Performed at: =G - [address], [place] [id number] Marine Service Manager: Shea Yun MD, Phone: [phone] Performed at: - [address], [place] [id number] Marine Service Manager: Shea Yun MD, Phone: [phone] IGP, APTIMA HPV, RFX 16/18,45 Note . [facility] Comment on above: TESTS RESULT FLAG UN ITS REF RANGE LAB DIAGNOSIS: 02 NEGATIVE FOR INTRAEPITHELIAL LESION OR MALIGNANCY. FUNGAL ORGANISMS MORPHOLOGICALLY CONSISTENT WITH TIGIST SPECIES ARE PRESENT. THIS SPECIMEN WAS RESCREENED PART OF OUR TEACHER OF GIFTED STUDENTS PROGRAM. Specimen adequacy: 02 Satisfactory for evaluation. No endocervical component is identified. Performed by: 02 Page Gonzalez, Auto Mechanic Apprentice QC reviewed by: Lisa Gonzalez Auto Mechanic Apprentice ([facility]) . 02 Note: Note 02 The [...] <-Panic Low,>-Panic High,A-Abnormal,AA-Critical Abnormal Performed at: 02 [facility] [address] [place] [address] Shea Yun MD, BR[facility]SPATULA [facility]ERVIX [facility]ERV[facility] Urinalysis macro (dipstick) panel (U)on 11-30-2024 Bilirubin, UA Negative Negative - 4(70) +++ mg/dL [facility] Blood, UA Positive Negative - 50 Brent/mcL [facility] Comment on above: Trace-Intact Clarity, UA Clear [facility] Color, UA Yellow [facility] Glucose, UA Negative Negative - 1999(110) ++++ mg/dL [facility] Interpretation and review of laboratory results Abnormal [facility] Ketones, UA Negative Negative - 160(16) ++++ mg/dL [facility] Leukocytes, UA Trace Negative - 500+++ Kae/mcL [facility] Nitrite, UA Negative Negative - Positive [facility] pH, UA 7 5 - 9 [facility] Protein, UA Negative Negative - 1999(20) ++++ mg/dL [facility] Spec Grav, UA 1.015 1 - 1.03 [facility] Urobilinogen, UA 0.2 0.2 - 12 mg/dL [facility] Urinalysis macro (dipstick) panel (U)on 11-02-2024 Bilirubin, UA Negative Negative - 4(70) +++ mg/dL [facility] Blood, UA Negative Negative - 50 Brent/mcL [facility] [facility] Clarity, UA Clear [facility] Color, UA Yellow [facility] Glucose, UA Negative Negative - 1999(110) ++++ mg/dL [facility] Interpretation and review of laboratory results Normal [facility] Ketones, UA Negative Negative - 160(16) ++++ mg/dL [facility] Leukocytes, UA Negative Negative - 500+++ Kae/mcL [facility] Nitrite, UA Negative Negative - Positive [facility] pH, UA 7 5 - 9 [facility] Protein, UA Negative Negative - 2000(20) ++++ mg/dL [facility] Spec Grav, UA 1.02 1 - 1.03 [facility] Urobilinogen, UA 0.2 0.2 - 12 mg/dL [facility] Alanine aminotransferase [En zymatic activity/volume] in Serum or PlasmaOrdered By: Ale Fragoso on 10-26-2024 ALT [Catalytic activity/Vol] Alanine aminotransferase [Enzymatic activity/volume] in Serum or Plasma 7-52 [facility] Albumin [Mass/volume] in Ser um or Plasma by Bromocresol green (BCG) dye binding methoOrdered By: Ale Fragoso on 10-26-2024 Albumin BCG dye [Mass/Vol] Albumin [Mass/volume] in Serum or Plasma by Bromocresol green (BCG) dye binding metho 3.5-5.7 [facility] Alkaline phosphatase [Enzyma tic activity/volume] in Serum or PlasmaOrdered By: Ale Fragoso on 10-26-2024 ALP [Catalytic activity/Vol] Alkaline phosphatase [Enzymatic activity/volume] in Serum or Plasma 34-104 [facility] Appearance of UrineOrdered B y: Ale Fragoso on 10-26-2024 Appearance (U) Urine appearance Clear [facility] Aspartate aminotransferase [ Enzymatic activity/volume] in Serum or PlasmaOrdered By: Ale Fragoso on 10-26-2024 AST [Catalytic activity/Vol] Aspartate aminotransferase [Enzymatic activity/volume] in Serum or Plasma 13-39 [facility] Basophils Auto (Bld) [#/Vol] Ordered By: Ale Fragoso on 10-26-2024 Basophils (Bld) [#/Vol] Automated basoph il count 0.0-0.2 [facility] Basophils/100 WBC Auto (Bld) Ordered By: Ale Fragoso on 10-26-2024 Basophils/100 WBC (Bld) Automated basophil % . [facility] Bilirubin Test strip Ql (U)O rdered By: Ale Fragoso on 10-26-2024 Bilirubin Ql (U) Bilirubin.total [Presence] in Urine by Test strip Negative [facility] Bilirubin.total [Mass/volume ] in Serum or PlasmaOrdered By: Ale Fragoso on 10-26-2024 Bilirubin [Mass/Vol] Bilirubin.total [Mass/volume] in Serum or Plasma 0.3-1.0 [facility] Calcium [Mass/volume] in Ser um or PlasmaOrdered By: Ale Fragoso on 10-26-2024 Calcium [Mass/Vol] Calcium [Mass/volume] in Serum or Plasma Low 8.6-10.3 [facility] Carbon dioxide, total [Moles /volume] in Serum or PlasmaOrdered By: Ale Fragoso on 10-26-2024 CO2 [Moles/Vol] Carbon dioxide, total [Moles/volume] in Serum or Plasma 21.0-31.0 [facility] Chloride [Moles/volume] in S mehdi or PlasmaOrdered By: Ale Fragoso on 10-26-2024 Chloride [Moles/Vol] Chloride [Moles/volume] in Serum or Plasma 98-107 [facility] Color Auto (U)Ordered By: Toribio Fragoso on 10-26-2024 Color (U) Color of Urine by Auto Yellow [facility] Complete Blood Count Auto Di ffon 10-26-2024 Basophils (Bld) [#/Vol] 0.0 10*3/uL Normal 0.0-0.2 [facility] Comment on above: Result Comment: PERF ORMED BY: [facility] [address] [facility] [place] [address] PATHOLOGIST [employer] OPERATOR INSULATION BRANDI GONZALEZ M.D. Performed By: #### C BC, HEPATIC, BMP, LIPASE #### [facility] [address] Basophils/100 WBC (Bld) 0.6 % Normal . [facility] Comment on above: Performed By: #### C BC, HEPATIC, BMP, LIPASE #### [facility] [address] [place] [address] [place] Eosinophils (Bld) [#/Vol] 0.3 10*3/uL Normal 0.0-0.45 [facility] Comment on above: Performed By: #### C BC, HEPATIC, BMP, LIPASE #### [address] Eosinophils/100 WBC (Bld) 5.6 % Normal . [facility] Comment on above: Performed By: #### C BC, HEPATIC, BMP, LIPASE #### [address] Erythrocyte distribution width (RBC) [Ratio] 13.6 % Normal 11.9-15.3 [facility] Comment on above: Performed By: #### C BC, HEPATIC, BMP, LIPASE #### [address] Hematocrit (Bld) [Volume fraction] 35.6 % Normal 34.0-46.4 [facility] Comment on above: Performed By: #### C BC, HEPATIC, BMP, LIPASE #### [address] Hemoglobin (Bld) [Mass/Vol] 12.3 g/dL Normal 11.8-15.4 [facility] Comment on above: Performed By: #### C BC, HEPATIC, BMP, LIPASE #### [address] Lymphocytes (Bld) [#/Vol] 0.8 10*3/uL Low 1.00-4.8 [facility] Comment on above: Performed By: #### C BC, HEPATIC, BMP, LIPASE #### [address] Lymphocytes/100 WBC (Bld) 18.1 % Normal . [facility] Comment on above: Performed By: #### C BC, HEPATIC, BMP, LIPASE #### [address] MCH (RBC) [Entitic mass] 32.2 pg Normal 24.7-34.3 [facility] Comment on above: Performed By: #### C BC, HEPATIC, BMP, LIPASE #### [address] MCV (RBC) [Entitic vol] 92.9 fL Normal 80-100 [facility] Comment on above: Performed By: #### C BC, HEPATIC, BMP, LIPASE #### [address] Mean Corpuscular HGB Conc 34.6 g/dL Normal 32.0-35.0 [facility] Comment on above: Performed By: #### C BC, HEPATIC, BMP, LIPASE #### [address] Monocytes (Bld) [#/Vol] 0.4 10*3/uL Normal 0.0-0.8 [facility] Comment on above: Performed By: #### C BC, HEPATIC, BMP, LIPASE #### [address] Monocytes/100 WBC (Bld) 17.94 % Normal 0.00-20.00 [facility] Comment on above: Performed By: #### C BC, HEPATIC, BMP, LIPASE #### [address] Monocytes/100 WBC (Bld) 8.1 % Normal . [facility] Comment on above: Performed By: #### C BC, HEPATIC, BMP, LIPASE #### [address] Neutrophils (Bld) [#/Vol] 3.1 10*3/uL Normal 1.8-7.7 [facility] Comment on above: Performed By: #### C BC, HEPATIC, BMP, LIPASE #### [place] [address] [place] Neutrophils/100 WBC (Bld) 67.6 % Normal . [facility] Comment on above: Performed By: #### C BC, HEPATIC, BMP, LIPASE #### [place] [address] [place] NRBC% 0.1 /100{WBC} Normal 0-0.5 [facility] Comment on above: Performed By: #### C BC, HEPATIC, BMP, LIPASE #### [address] Platelet mean volume (Bld) [Entitic vol] 7.6 fL Normal 6.3-10.7 [facility] Comment on above: Performed By: #### C BC, HEPATIC, BMP, LIPASE #### [address] Platelets (Bld) [#/Vol] 194 10*3/uL Normal 150-450 [facility] Comment on above: Performed By: #### C BC, HEPATIC, BMP, LIPASE #### [address] RBC (Bld) [#/Vol] 3.83 10*6/uL Normal 3.60-5.00 [facility] Comment on above: Performed By: #### C BC, HEPATIC, BMP, LIPASE #### [address] WBC (Bld) [#/Vol] 4.6 10*3/uL Normal 3.8-11.6 [facility] Comment on above: Performed By: #### C BC, HEPATIC, BMP, LIPASE #### [address] Comprehensive Metabolic Pane al 10-26-2024 Albumin [Mass/Vol] 3.6 g/dL Normal 3.5-5.7 [facility] Comment on above: Performed By: #### C BC, HEPATIC, BMP, LIPASE #### [address] Albumin/Globulin [Mass ratio] 1.5 {ratio} Normal [facility] Comment on above: Performed By: #### C BC, HEPATIC, BMP, LIPASE #### [address] ALP [Catalytic activity/Vol] 42 U/L Normal 34-104 [facility] Comment on above: Performed By: #### C BC, HEPATIC, BMP, LIPASE #### [address] [place] [address] [place] ALT [Catalytic activity/Vol] 13 U/L Normal 7-52 [facility] Comment on above: Performed By: #### C BC, HEPATIC, BMP, LIPASE #### [address] Anion gap [Moles/Vol] 7.3 mmol/L Normal 6.0-15.0 [facility] Comment on above: Performed By: #### C BC, HEPATIC, BMP, LIPASE #### [address] AST [Catalytic activity/Vol] 16 U/L Normal 13-39 [facility] Comment on above: Performed By: #### C BC, HEPATIC, BMP, LIPASE #### [address] Bilirubin [Mass/Vol] 0.3 mg/dL Normal 0.3-1.0 [facility] Comment on above: Performed By: #### C BC, HEPATIC, BMP, LIPASE #### [address] Calcium [Mass/Vol] 8.5 mg/dL Low 8.6-10.3 [facility] Comment on above: Performed By: #### C BC, HEPATIC, BMP, LIPASE #### [address] Chloride [Moles/Vol] 106 mmol/L Normal 98-107 [facility] Comment on above: Performed By: #### C BC, HEPATIC, BMP, LIPASE #### [address] CO2 [Moles/Vol] 25.5 mmol/L Normal 21.0-31.[address] [facility] Comment on above: Performed By: #### C BC, HEPATIC, BMP, LIPASE #### [address] Creatinine [Mass/Vol] 0.55 mg/dL Low 0.60-1.20 [facility] Comment on above: Performed By: #### C BC, HEPATIC, BMP, LIPASE #### [place] [address] [place] Creatinine Clr Calc Pharmacy 121.47 Normal [facility] Comment on above: Performed By: #### C BC, HEPATIC, BMP, LIPASE #### [place] [address] [place] GFR/1.73 sq M.predicted MDRD (S/P/Bld) [Vol rate/Area] mL/min/{1.73_m2} Normal [facility] Comment on above: Performed By: #### C BC, HEPATIC, BMP, LIPASE #### [address] Globulin (S) [Mass/Vol] 2.4 g/dL Normal [facility] Comment on above: Performed By: #### C BC, HEPATIC, BMP, LIPASE #### [address] Glucose [Mass/Vol] 90 mg/dL Normal 70-100 [facility] Comment on above: Result Comment: [facility] Glucose Reference Range is dependent on time and content of last meal. Glucose of more than 200 mg/dL in a nonstressed, ambulatory subject supports the diagnosis of Diabetes Mellitus. ADA recommended reference range Performed By: #### C BC, HEPATIC, BMP, LIPASE #### [address] Potassium [Moles/Vol] 3.8 mmol/L Normal 3.5-5.1 [facility] Comment on above: Performed By: #### C BC, HEPATIC, BMP, LIPASE #### [address] Protein [Mass/Vol] 6.0 g/dL Low 6.4-8.9 [facility] Comment on above: Performed By: #### C BC, HEPATIC, BMP, LIPASE #### [address] Sodium [Moles/Vol] 135 mmol/L Low 136-145 [facility] Comment on above: Performed By: #### C BC, HEPATIC, BMP, LIPASE #### [facility] [address] [place] [address] [place] Urea nitrogen [Mass/Vol] 9 mg/dL Normal 7-25 [facility] Comment on above: Performed By: #### C BC, HEPATIC, BMP, LIPASE #### [facility] [address] [place] [id number] [place] Creatinine [Mass/volume] in Serum or PlasmaOrdered By: Ale Fragoso on 10-26-2024 Creatinine [Mass/Vol] Creatinine [Mass/volume] in Serum or Plasma Low 0.60-1.20 [facility] Eosinophils Auto (Bld) [#/Vo l]Ordered By: Ale Fragoso on 10-26-2024 Eosinophils (Bld) [#/Vol] Automated eosinophil count 0.0-0.45 [facility] Eosinophils/100 WBC Auto (Bl d)Ordered By: Ale Fragoso on 10-26-2024 Eosinophils/100 WBC (Bld) Automated eosinophil % . [facility] Erythrocyte distribution wid th Auto (RBC) [Ratio]Ordered By: Ale Fragoso on 10-26-2024 Erythrocyte distribution width (RBC) [Ratio] Erythrocyte distribution width [Ratio] by Automated count 11.9-15.3 [facility] Globulin Calc (S) [Mass/Vol] Ordered By: Ale Fragoso on 10-26-2024 Globulin (S) [Mass/Vol] Serum globulin measurement by calculation (mass/volume) [facility] Glucose [Mass/volume] in Ser um or PlasmaOrdered By: Ale Fragoso on 10-26-2024 Glucose [Mass/Vol] Glucose [Mass/volume] in Serum or Plasma 70-100 [facility] Comment on above: ADA recommended refe [...] [Mass/volume] in Urine by Test strip Normal [facility] Hematocrit Auto (Bld) [Volum e fraction]Ordered By: Ale Fragoso on 10-26-2024 Hematocrit (Bld) [Volume fraction] Hematocrit [Volume Fraction] of Blood by Automated count 34.0-46.4 [facility] Hemoglobin Test strip Ql (U) Ordered By: Ale Fragoso on 10-26-2024 Hemoglobin Ql (U) Hemoglobin [Presence] in Urine by Test strip Negative [facility] Hemoglobin [Mass/volume] in BloodOrdered By: Ale Fragoso on 10-26-2024 Hemoglobin (Bld) [Mass/Vol] Hemoglobin [Mass/volume] in Blood 11.8-15.4 [facility] Ketones Test strip Ql (U)Ord ered By: Ale Fragoso on 10-26-2024 Ketones Ql (U) Ketones [Presence] in Urine by Test strip Negative [facility] Leukocyte esterase [Presence ] in Urine by Test stripOrdered By: Ale Fragoso on 10-26-2024 Leukocyte esterase Test strip Ql (U) Leukocyte esterase [Presence] in Urine by Test strip Negative [facility] Leukocytes [#/volume] correc ira for nucleated erythrocytes in Blood by Automated counOrdered By: Ale Fragoso on 10-26-2024 WBC corrected for nucl RBC Auto (Bld) [#/Vol] Leukocytes [#/volume] corrected for nucleated erythrocytes in Blood by Automated coun 3.8-11.6 [facility] Lymphocytes Auto (Bld) [#/Vo l]Ordered By: Ale Fragoso on 10-26-2024 Lymphocytes (Bld) [#/Vol] Lymphocytes [#/volume] in Blood by Automated count Low 1.00-4.8 [facility] Lymphocytes/100 WBC Auto (Bl d)Ordered By: Ale Fragoso on 10-26-2024 Lymphocytes/100 WBC (Bld) Lymphocytes/100 leukocytes in Blood by Automated count . [facility] MCH Auto (RBC) [Entitic mass ]Ordered By: Ale Fragoso on 10-26-2024 MCH (RBC) [Entitic mass] MCH [Entitic mass] by Automated count 24.7-34.3 [facility] MCHC Auto (RBC) [Mass/Vol]Or dered By: Ale Fragoso on 10-26-2024 MCHC (RBC) [Mass/Vol] MCHC [Mass/volume] by Automated count 32.0-35.0 [facility] MCV Auto (RBC) [Entitic vol] Ordered By: Ale Fragoso on 10-26-2024 MCV (RBC) [Entitic vol] MCV [Entitic vol ume] by Automated count 80-100 [facility] Magnesiumon 10-26-2024 Magnesium [Mass/Vol] 1.9 mg/dL Normal 1.9-2.7 [facility] Comment on above: Result Comment: PERF ORMED BY: [facility] [address] [place] [address] PATHOLOGIST CUPOLA OPERATOR INSULATION BRANDI GONZALEZ M.D. Performed By: #### C BC, HEPATIC, BMP, LIPASE #### [address] Magnesium [Mass/volume] in S mehdi or PlasmaOrdered By: Ale Fragoso on 10-26-2024 Magnesium [Mass/Vol] Magnesium [Mass/volume] in Serum or Plasma 1.9-2.7 [facility] Monocyte distribution width [Entitic volume] in Blood by AutomatedOrdered By: Ale Fragoso on 10-26-2024 Monocyte distribution width Auto (Bld) [Entitic vol] Monocyte distribution width [Entitic volume] in Blood by Automated 0.00-20.00 [facility] Monocytes Auto (Bld) [#/Vol] Ordered By: Ale Fragoso on 10-26-2024 Monocytes (Bld) [#/Vol] Automated blood monocyte count 0.0-0.8 [facility] Monocytes/100 WBC Auto (Bld) Ordered By: Ale Fragoso on 10-26-2024 Monocytes/100 WBC (Bld) Automated monocyte % . [facility] Neutrophils Auto (Bld) [#/Vo l]Ordered By: Ale Fragoso on 10-26-2024 Neutrophils (Bld) [#/Vol] Neutrophils [#/volume] in Blood by Automated count 1.8-7.7 [facility] Neutrophils/100 WBC Auto (Bl d)Ordered By: Ale Fragoso on 10-26-2024 Neutrophils/100 WBC (Bld) Automated neutrophil % . [facility] Nitrite Test strip Ql (U)Ord ered By: Ale Fragoso on 10-26-2024 Nitrite Ql (U) Nitrite [Presence] in Urine by Test strip Negative [facility] No Panel InformationOrdered By: Ale Fragoso on 10-26-2024 Estimated GFR (CKD-EPI) > 60.0 mL/Min [facility] Creatinine Clearance (Chem 121.47 [facility] Nucleated erythrocytes [Pres ence] in Blood by Automated countOrdered By: Ale Fragoso on 10-26-2024 Nucleated RBC Auto Ql (Bld) Nucleated erythrocytes [Presence] in Blood by Automated count 0-0.5 [facility] Platelet mean volume Auto (B ld) [Entitic vol]Ordered By: Ale Fragoso on 10-26-2024 Platelet mean volume (Bld) [Entitic vol] Platelet mean volume [Entitic volume] in Blood by Automated count 6.3-10.7 [facility] Platelets Auto (Bld) [#/Vol] Ordered By: Ale Fragoso on 10-26-2024 Platelets (Bld) [#/Vol] Platelets [#/vol ume] in Blood by Automated count 150-450 [facility] Potassium [Moles/volume] in Serum or PlasmaOrdered By: Ale Fragoso on 10-26-2024 Potassium [Moles/Vol] Potassium [Moles/volume] in Serum or Plasma 3.5-5.1 [facility] Protein Test strip (U) [Mass /Vol]Ordered By: Ale Fragoso on 10-26-2024 Protein (U) [Mass/Vol] Protein [Mass/volume] in Urine by Test strip Negative [facility] Protein [Mass/volume] in Ser um or PlasmaOrdered By: Ale Fragoso on 10-26-2024 Protein [Mass/Vol] Protein [Mass/volume] in Serum or Plasma Low 6.4-8.9 [facility] RBC Auto (Bld) [#/Vol]Ordere d By: Ale Fragoso on 10-26-2024 RBC (Bld) [#/Vol] Erythrocytes [#/volume] in Blood by Automated count 3.60-5.00 [facility] Serum or plasma albumin/glob ulin mass ratioOrdered By: Ale Fragoso on 10-26-2024 Albumin/Globulin [Mass ratio] Serum or plasma albumin/globulin mass ratio [facility] Serum or plasma anion gap de terminationOrdered By: Ale Fragoso on 10-26-2024 Anion gap [Moles/Vol] Serum or plasma anion gap determination 6.0-15.0 [facility] Sodium [Moles/volume] in Ser um or PlasmaOrdered By: Ale Fragoso on 10-26-2024 Sodium [Moles/Vol] Sodium [Moles/volume] in Serum or Plasma Low 136-145 [facility] Specific gravity Test strip (U) [Rel density]Ordered By: Ale Fragoso on 10-26-2024 Specific gravity (U) [Rel density] Specific gravity of Urine by Test strip 1.001-1.030 [facility] US renal RTon 10-26-2024 US renal RT [facility] [place] [address] Ultrasound Report Signed Patient: Breana Casas MR#: [id number] : 1990 Acct:[id number] Age/Sex: 33 / F ADM Date: 10/26/24 [...] Tanner Burleson M.D.10/26/2024 11:46 AM Dictation Location: [place] [address] Tech: Karmen Lobo Transcribed By: SHANE 10/26/24 1146 Dictated By: Tanner Burleson DO 10/26/24 1139 Signed By: 10/26/24 1146 Normal [facility] Urea nitrogen [Mass/volume] in Serum or PlasmaOrdered By: Ale Fragoso on 10-26-2024 Urea nitrogen [Mass/Vol] Urea nitrogen [Mass/volume] in Serum or Plasma 04-29 [facility] Urinalysison 10-26-2024 Appearance (U) Clear Normal Clear [facility] Comment on above: Order Comment: Name Collection Type:: Clean-Voided Midstream Performed By: #### U A #### [facility] [address] [place] [id number] [place] Bilirubin,Urine Negative Normal Negative [facility] Comment on above: Order Comment: Name Collection Type:: Clean-Voided Midstream Performed By: #### U A #### [address] [address] [place] Color (U) Light-Yellow Normal Yellow [facility] Comment on above: Order Comment: Name Collection Type:: Clean-Voided Midstream Performed By: #### U A #### [address] [address] [place] Glucose Ql (U) Normal Normal Normal [facility] Comment on above: Order Comment: Name Collection Type:: Clean-Voided Midstream Performed By: #### U A #### [address] [address] [place] Ketones Ql (U) Negative Normal Negative [facility] Comment on above: Order Comment: Name Collection Type:: Clean-Voided Midstream Performed By: #### U A #### [facility] [address] [place] [address] [place] Leukocyte esterase Test strip Ql (U) Negative Normal Negative [facility] Comment on above: Order Comment: Name Collection Type:: Clean-Voided Midstream Performed By: #### U A #### [facility] [address] [place] [address] [place] Nitrite,Urine Negative Normal Negative [facility] Comment on above: Order Comment: Name Collection Type:: Clean-Voided Midstream Performed By: #### U A #### [address] Occult Blood,Urine Negative Normal Negative [facility] Comment on above: Order Comment: Name Collection Type:: Clean-Voided Midstream Result Comment: PERF ORMED BY: [place] [address] PATHOLOGIST [employer]OLA OPERATOR INSULATION BRANDI GONZALEZ M.D. Performed By: #### U A #### [address] pH (U) 6.5 [pH] Normal 5.0-9.0 [facility] Comment on above: Order Comment: Name Collection Type:: Clean-Voided Midstream Performed By: #### U A #### [address] Protein,Urine Negative Normal Negative [facility] Comment on above: Order Comment: Name Collection Type:: Clean-Voided Midstream Performed By: #### U A #### [address] Specificy [place],Urine 1.020 Normal 1.001-1.030 [facility] Comment on above: Order Comment: Name Collection Type:: Clean-Voided Midstream Performed By: #### U A #### [address] Urobilinogen,Urine Normal Normal Normal [facility] Comment on above: Order Comment: Name Collection Type:: Clean-Voided Midstream Performed By: #### U A #### [place] [address] [place] Urobilinogen Test strip (U) [Mass/Vol]Ordered By: Ale Fragoso on 10-26-2024 Urobilinogen (U) [Mass/Vol] Urobilinogen [Mass/volume] in Urine by Test strip Normal [facility] WBC Auto (Bld) [#/Vol]Ordere d By: Ale Fragoso on 10-26-2024 WBC (Bld) [#/Vol] Leukocytes [#/volume] in Blood by Automated count 3.8-11.6 [facility] pH Test strip (U)Ordered By: Ale Fragoso on 10-26-2024 pH (U) pH of Urine by Test strip 5.0-9.0 [facility] BOX TESTon 10-19-2024 BOX TEST SENT OUT [facility] [address] [facility] [address] 10/19/[facility] test[facility] Ql (U)o n 10-01-2024 Interpretation and review of laboratory results Abnormal [facility] Preg Test, Ur Positive Negative [facility] Urinalysis macro (dipstick) panel (U)on 10-01-2024 Bilirubin, UA Negative Negative - 4(70) +++ mg/dL [facility] Blood, UA Negative Negative - 50 Brent/mcL [facility] Clarity, UA Clear [facility] Hospital Color, UA Yellow [facility] Glucose, UA Negative Negative - 2000(110) ++++ mg/dL [facility] Interpretation and review of laboratory results Normal [facility] Ketones, UA Negative Negative - 160(16) ++++ mg/dL [facility] Leukocytes, UA Negative Negative - 500+++ Kae/mcL [facility] Nitrite, UA Negative Negative - Positive [facility] pH, UA 6 5 - 9 [facility] Protein, UA Negative Negative - 2000(20) ++++ mg/dL [facility] Spec Grav, UA 1.005 1 - 1.03 [facility] Urobilinogen, UA 0.2 0.2 - 12 mg/dL [facility] PREG QUANT HCGon 024 HCG QUANTITATIVE 42059 mIU/mL [facility] Comment on above: 5-50 0.2-1 WEEK 50-500 1-2 WEEKS 100-5,000 2-3 WEEKS 500-10,000 3-4 WEEKS 1,000-50,000 4-5 WEEKS 10,000-100,000 5-6 WEEKS 15,000-200,000 6-8 WEEKS 10,000-100,000 2[facility] 024 HCG QUANTITATIVE 6224 mIU/mL [facility] Comment on above: 5-50 0.2-1 WEEK 50-500 1-2 WEEKS 100-5,000 2-3 WEEKS 500-10,000 3-4 WEEKS 1,000-50,000 4-5 WEEKS 10,000-100,000 5-6 WEEKS 15,000-200,000 6-8 WEEKS 10,000-100,000 2-3 MONTHS [facility] [place] ALL PROGESTERONEon PROGESTERONE 21.4 ng/mL . [facility] Comment on above: Follicular phase 0.1 - 0.9 Luteal phase 1.8 - 23.9 Ovulation phase 0.1 - 12.0 First trimester 11.0 - 44.3 Second trimester 25.4 - 83.3 Third trimester 58.7 - 214.0 Postmenopausal 0.0 - 0.1 Performed at: [address] [id number] Marine Service Manager: Lebron Manzo PhD, Phone: [phone] [facility] HCG ( test) Ql (U)o n 06-29-2024 Interpretation and review of laboratory results Normal [facility] Preg Test, Ur Negative [facility] Urinalysis macro (dipstick) panel (U)on 06-29-2024 Bilirubin, UA Negative Negative - 4(70) +++ mg/dL [facility] Blood, UA Positive Negative - 50 Brent/mcL [facility] Comment on above: trace Clarity, UA Clear [facility] Color, UA Yellow [facility] Glucose, UA Negative Negative - 1999(110) ++++ mg/dL [facility] Interpretation and review of laboratory results Normal [facility] Ketones, UA Negative Negative - 160(16) ++++ mg/dL [facility] Leukocytes, UA Negative Negative - 500+++ Kae/mcL [facility] Nitrite, UA Negative Negative - Positive [facility] pH, UA 5.5 5 - 9 [facility] Protein, UA Negative Negative - 2000(20) ++++ mg/dL [facility] Spec Grav, UA 1.020 1 - 1.03 [facility] Urobilinogen, UA 1.0 0.2 - 12 mg/dL [facility] Alanine aminotransferase [En zymatic activity/volume] in Serum or PlasmaOrdered By: PROVIDER TEMP on 09-12-2024 ALT [Catalytic activity/Vol] 15 U/L Normal 7-52 [facility] Comment on above: Performed By: #### C BC, HEPATIC, BMP, LIPASE #### [address] Albumin [Mass/volume] in Ser um or Plasma by Bromocresol green (BCG) dye binding methoOrdered By: PROVIDER TEMP on 06-17-2024 Albumin BCG dye [Mass/Vol] 4.5 g/dL 3.5-5.7 [facility] Alkaline phosphatase [Enzyma tic activity/volume] in Serum or PlasmaOrdered By: PROVIDER TEMP on 06-17-2024 ALP [Catalytic activity/Vol] 58 U/L Normal 34-104 [facility] Comment on above: Performed By: #### C BC, HEPATIC, BMP, LIPASE #### [address] Aspartate aminotransferase [ Enzymatic activity/volume] in Serum or PlasmaOrdered By: PROVIDER TEMP on 06-17-2024 AST [Catalytic activity/Vol] 17 U/L Normal 13-39 [facility] Comment on above: Performed By: #### C BC, HEPATIC, BMP, LIPASE #### [facility] [address] [place] [address] Automated basophil %Ordered By: PROVIDER TEMP on 06-17-2024 Basophils/100 WBC (Bld) 1.1 % Normal . [facility] Comment on above: Performed By: #### C BC, HEPATIC, BMP, LIPASE #### [address] Automated basophil countOrde red By: PROVIDER TEMP on 06-17-2024 Basophils (Bld) [#/Vol] 0.0 10*3/uL Normal 0.0-0.2 [facility] Comment on above: Result Comment: PERF ORMED BY: [place] [address] PATHOLOGIST CUPOLA OPERATOR INSULATION KHANG WEEKS M.D. Performed By: #### C BC, HEPATIC, BMP, LIPASE #### [address] Automated blood monocyte cou ntOrdered By: PROVIDER TEMP on 06-17-2024 Monocytes (Bld) [#/Vol] 0.3 10*3/uL Normal 0.0-0.8 [facility] Comment on above: Performed By: #### C BC, HEPATIC, BMP, LIPASE #### [facility] [address] Automated eosinophil %Ordere d By: PROVIDER TEMP on 06-17-2024 Eosinophils/100 WBC (Bld) 9.5 % Normal . [facility] Comment on above: Performed By: #### C BC, HEPATIC, BMP, LIPASE #### [facility] [address] Automated eosinophil countOr dered By: PROVIDER TEMP on 06-17-2024 Eosinophils (Bld) [#/Vol] 0.4 10*3/uL Normal 0.0-0.45 [facility] Comment on above: Performed By: #### C BC, HEPATIC, BMP, LIPASE #### [address] Automated monocyte %Ordered By: PROVIDER TEMP on 06-17-2024 Monocytes/100 WBC (Bld) 7.1 % Normal . [facility] Comment on above: Performed By: #### C BC, HEPATIC, BMP, LIPASE #### [address] Automated neutrophil %Ordere d By: PROVIDER TEMP on 06-17-2024 Neutrophils/100 WBC (Bld) 51.1 % Normal . [facility] Comment on above: Performed By: #### C BC, HEPATIC, BMP, LIPASE #### [facility] [address] Basic Metabolic Panelon 06-06 Creatinine Clr Calc Pharmacy 78.60 Normal [facility] Comment on above: Performed By: #### C BC, HEPATIC, BMP, LIPASE #### [address] GFR/1.73 sq M.predicted MDRD (S/P/Bld) [Vol rate/Area] mL/min/{1.73_m2} Normal [facility] Comment on above: Performed By: #### C BC, HEPATIC, BMP, LIPASE #### [address] Bilirubin Test strip Ql (U)O rdered By: PROVIDER TEMP on 06-17-2024 Bilirubin Ql (U) Negative Negative [facility] Bilirubin.direct [Mass/volum e] in Serum or PlasmaOrdered By: PROVIDER TEMP on 06-17-2024 Bilirubin.direct [Mass/Vol] 0.20 mg/dL High 0.03-0.18 [facility] Bilirubin.total [Mass/volume ] in Serum or PlasmaOrdered By: PROVIDER TEMP on 06-17-2024 Bilirubin [Mass/Vol] 0.8 mg/dL Normal 0.3-1.0 [facility] Comment on above: Performed By: #### C BC, HEPATIC, BMP, LIPASE #### [place] [address] [place] Calcium [Mass/volume] in Ser um or PlasmaOrdered By: PROVIDER TEMP on 06-17-2024 Calcium [Mass/Vol] 9.2 mg/dL Normal 8.6-10.3 [facility] Comment on above: Performed By: #### C BC, HEPATIC, BMP, LIPASE #### [address] Carbon dioxide, total [Moles /volume] in Serum or PlasmaOrdered By: PROVIDER TEMP on 06-17-2024 CO2 [Moles/Vol] 27.0 mmol/L Normal 21.0-31.0 [facility] Comment on above: Performed By: #### C BC, HEPATIC, BMP, LIPASE #### [facility] [address] [place] [address] [place] Chloride [Moles/volume] in S mehdi or PlasmaOrdered By: PROVIDER TEMP on 06-17-2024 Chloride [Moles/Vol] 106 mmol/L Normal 98-107 [facility] Comment on above: Performed By: #### C BC, HEPATIC, BMP, LIPASE #### [address] Color of Urine by AutoOrdere d By: PROVIDER TEMP on 06-17-2024 Color (U) Light-yellow Normal Yellow [facility] Comment on above: Order Comment: Name Collection Type:: Clean-Voided Midstream Performed By: #### C BC, HEPATIC, BMP, LIPASE #### [address] Complete Blood Count Auto Di ffon 06-17-2024 Mean Corpuscular HGB Conc 34.6 g/dL Normal 32.0-35.0 [facility] Comment on above: Performed By: #### C BC, HEPATIC, BMP, LIPASE #### [address] Monocytes/100 WBC (Bld) 16.54 % Normal 0.00-20.00 [facility] Comment on above: Performed By: #### C BC, HEPATIC, BMP, LIPASE #### [address] NRBC% 0.1 /100{WBC} Normal 0-0.5 [facility] Comment on above: Performed By: #### C BC, HEPATIC, BMP, LIPASE #### [address] Creatinine [Mass/volume] in Serum or PlasmaOrdered By: PROVIDER TEMP on 06-17-2024 Creatinine [Mass/Vol] 0.85 mg/dL Normal 0.60-1.20 [facility] Comment on above: Performed By: #### C BC, HEPATIC, BMP, LIPASE #### [address] Erythrocyte distribution wid th [Ratio] by Automated countOrdered By: PROVIDER TEMP on 06-17-2024 Erythrocyte distribution width (RBC) [Ratio] 12.7 % Normal 11.9-15.3 [facility] Comment on above: Performed By: #### C BC, HEPATIC, BMP, LIPASE #### [address] Erythrocytes [#/volume] in B lood by Automated countOrdered By: PROVIDER TEMP on 06-17-2024 RBC (Bld) [#/Vol] 4.50 10*6/uL Normal 3.60-5.00 [facility] Comment on above: Performed By: #### C BC, HEPATIC, BMP, LIPASE #### [facility] [address] [place] [address] [place] Glucose [Mass/volume] in Ser um or PlasmaOrdered By: PROVIDER TEMP on 06-17-2024 Glucose [Mass/Vol] 86 mg/dL Normal 70-100 [facility] Comment on above: ADA recommended refe rence rangeRandom Glucose Reference Range is dependent on time and content of last meal. Glucose of more than 200 mg/dL in a nonstressed, ambulatory subject supports the diagnosis of Diabetes Mellitus. Result Comment: [place] om Glucose Reference Range is dependent on time and content of last meal. Glucose of more than 200 mg/dL in a nonstressed, ambulatory subject supports the diagnosis of Diabetes Mellitus. ADA recommended reference range Performed By: #### C BC, HEPATIC, BMP, LIPASE #### [facility] [address] [place] [address] [place] Glucose [Mass/volume] in Uri ne by Test stripOrdered By: PROVIDER TEMP on 06-17-2024 Glucose Test strip (U) [Mass/Vol] Normal mg/dL Normal [facility] HCG ( test) IA.rapi d Ql (U)Ordered By: PROVIDER TEMP on 06-17-2024 HCG ( test) Ql (U) Negative [facility] HCG,Urineon 06-17-2024 Beta HCG ( test) Ql (U) Negative Normal [facility] Comment on above: Order Comment: Name Collection Type:: Clean-Voided Midstream Result Comment: PERF ORMED BY: [place] [address] PATHOLOGIST CUPOLA OPERATOR INSULATION KHANG WEEKS M.D. Performed By: #### C BC, HEPATIC, BMP, LIPASE #### [facility] [address] [place] [address] [place] Hematocrit [Volume Fraction] of Blood by Automated countOrdered By: PROVIDER TEMP on 06-17-2024 Hematocrit (Bld) [Volume fraction] 41.7 % Normal 34.0-46.4 [facility] Comment on above: Performed By: #### C BC, HEPATIC, BMP, LIPASE #### [address] Hemoglobin Test strip Ql (U) Ordered By: PROVIDER TEMP on 06-17-2024 Hemoglobin Ql (U) Negative Negative [facility] Hemoglobin [Mass/volume] in BloodOrdered By: PROVIDER TEMP on 06-17-2024 Hemoglobin (Bld) [Mass/Vol] 14.4 g/dL Normal 11.8-15.4 [facility] Comment on above: Performed By: #### C BC, HEPATIC, BMP, LIPASE #### [address] Hepatic Panelon 06-17-2024 Albumin [Mass/Vol] 4.5 g/dL Normal 3.5-5.7 [facility] Comment on above: Performed By: #### C BC, HEPATIC, BMP, LIPASE #### [address] Bilirubin,Indirect 0.6 mg/dL Normal [facility] Comment on above: Performed By: #### C BC, HEPATIC, BMP, LIPASE #### [address] Bilirubin.indirect [Mass/Vol] 0.20 mg/dL High 0.03-0.18 [facility] Comment on above: Performed By: #### C BC, HEPATIC, BMP, LIPASE #### [address] Ketones [Presence] in Urine by Test stripOrdered By: PROVIDER TEMP on 06-17-2024 Ketones Ql (U) 1+ High Negative [facility] Comment on above: Order Comment: Name Collection Type:: Clean-Voided Midstream Performed By: #### C BC, HEPATIC, BMP, LIPASE #### [address] Leukocyte esterase [Presence ] in Urine by Test stripOrdered By: PROVIDER TEMP on 06-17-2024 Leukocyte esterase Test strip Ql (U) Negative Normal Negative [facility] Comment on above: Order Comment: Name Collection Type:: Clean-Voided Midstream Performed By: #### C BC, HEPATIC, BMP, LIPASE #### [facility] [address] Leukocytes [#/volume] correc ira for nucleated erythrocytes in Blood by Automated counOrdered By: PROVIDER TEMP on 06-17-2024 WBC corrected for nucl RBC Auto (Bld) [#/Vol] 4.4 10*3/uL 3.8-11.6 [facility] Leukocytes [#/volume] in Blo od by Automated countOrdered By: PROVIDER TEMP on 06-17-2024 WBC (Bld) [#/Vol] 4.4 10*3/uL Normal 3.8-11.6 [facility] Comment on above: Performed By: #### C BC, HEPATIC, BMP, LIPASE #### [address] Lipase [Enzymatic activity/v olume] in Serum or PlasmaOrdered By: PROVIDER TEMP on 06-17-2024 Lipase [Catalytic activity/Vol] 16.0 U/L Normal 11.0-82.0 [facility] Comment on above: Result Comment: PERF ORMED BY: [place] [address] PATHOLOGIST CUPOLA OPERATOR INSULATION KHANG WEEKS M.D. Performed By: #### C BC, HEPATIC, BMP, LIPASE #### [place] [address] [place] Lymphocytes [#/volume] in Bl ood by Automated countOrdered By: PROVIDER TEMP on 06-17-2024 Lymphocytes (Bld) [#/Vol] 1.4 10*3/uL Normal 1.00-4.8 [facility] Comment on above: Performed By: #### C BC, HEPATIC, BMP, LIPASE #### [place] [address] [place] Lymphocytes/100 leukocytes i n Blood by Automated countOrdered By: PROVIDER TEMP on 06-17-2024 Lymphocytes/100 WBC (Bld) 31.2 % Normal . [facility] Comment on above: Performed By: #### C BC, HEPATIC, BMP, LIPASE #### [facility] [address] [place] [address] MCH [Entitic mass] by Automa ira countOrdered By: PROVIDER TEMP on 06-17-2024 MCH (RBC) [Entitic mass] 32.1 pg Normal 24.7-34.3 [facility] Comment on above: Performed By: #### C BC, HEPATIC, BMP, LIPASE #### [facility] [address] [place] [address] MCHC Auto (RBC) [Mass/Vol]Or dered By: PROVIDER TEMP on 06-17-2024 MCHC (RBC) [Mass/Vol] 34.6 g/dL 32.0-35.0 [facility] MCV [Entitic volume] by Auto mated countOrdered By: PROVIDER TEMP on 06-17-2024 MCV (RBC) [Entitic vol] 92.6 fL Normal 80-100 [facility] Comment on above: Performed By: #### C BC, HEPATIC, BMP, LIPASE #### [facility] [address] [place] [address] Monocyte distribution width [Entitic volume] in Blood by AutomatedOrdered By: PROVIDER TEMP on 06-17-2024 Monocyte distribution width Auto (Bld) [Entitic vol] 16.54 % 0.00-20.00 [facility] Neutrophils [#/volume] in Bl ood by Automated countOrdered By: PROVIDER TEMP on 06-17-2024 Neutrophils (Bld) [#/Vol] 2.2 10*3/uL Normal 1.8-7.7 [facility] Comment on above: Performed By: #### C BC, HEPATIC, BMP, LIPASE #### [address] Nitrite Test strip Ql (U)Ord ered By: PROVIDER TEMP on 06-17-2024 Nitrite Ql (U) Negative Negative [facility] No Panel InformationOrdered By: PROVIDER TEMP on 06-17-2024 Estimated GFR (CKD-EPI) > 60.0 mL/Min [facility] Creatinine Clearance (Chem 78.60 [facility] Nucleated erythrocytes [Pres ence] in Blood by Automated countOrdered By: PROVIDER TEMP on 06-17-2024 Nucleated RBC Auto Ql (Bld) 0.1 /100{WBC} 0-0.5 [facility] Platelet mean volume [Entiti c volume] in Blood by Automated countOrdered By: PROVIDER TEMP on 06-17-2024 Platelet mean volume (Bld) [Entitic vol] 7.5 fL Normal 6.3-10.7 [facility] Comment on above: Performed By: #### C BC, HEPATIC, BMP, LIPASE #### [facility] [address] Platelets [#/volume] in Bloo d by Automated countOrdered By: PROVIDER TEMP on 06-17-2024 Platelets (Bld) [#/Vol] 210 10*3/uL Normal 150-450 [facility] Comment on above: Performed By: #### C BC, HEPATIC, BMP, LIPASE #### [facility] [address] [place] [address] [place] Potassium [Moles/volume] in Serum or PlasmaOrdered By: PROVIDER TEMP on 06-17-2024 Potassium [Moles/Vol] 3.6 mmol/L Normal 3.5-5.1 [facility] Comment on above: Performed By: #### C BC, HEPATIC, BMP, LIPASE #### [facility] [address] [place] [address] Protein Test strip (U) [Mass /Vol]Ordered By: PROVIDER TEMP on 06-17-2024 Protein (U) [Mass/Vol] Negative Negative [facility] Protein [Mass/volume] in Ser um or PlasmaOrdered By: PROVIDER TEMP on 06-17-2024 Protein [Mass/Vol] 7.0 g/dL Normal 6.4-8.9 [facility] Comment on above: Performed By: #### C BC, HEPATIC, BMP, LIPASE #### [facility] [address] [place] [address] Serum globulin measurement b y calculation (mass/volume)Ordered By: PROVIDER TEMP on 06-17-2024 Globulin (S) [Mass/Vol] 2.5 g/dL Normal [facility] Comment on above: Performed By: #### C BC, HEPATIC, BMP, LIPASE #### [facility] [address] Serum or plasma albumin/glob ulin mass ratioOrdered By: PROVIDER TEMP on 06-17-2024 Albumin/Globulin [Mass ratio] 1.8 {ratio} Normal [facility] Comment on above: Performed By: #### C BC, HEPATIC, BMP, LIPASE #### [facility] [address] [place] [address] Serum or plasma anion gap de terminationOrdered By: PROVIDER TEMP on 06-17-2024 Anion gap [Moles/Vol] 6.6 mmol/L Normal 6.0-15.0 [facility] Comment on above: Performed By: #### C BC, HEPATIC, BMP, LIPASE #### [facility] [address] [place] [address] Serum or plasma non-glucuron idated bilirubin measurement (mass/volume)Ordered By: PROVIDER TEMP on 06-17-2024 Bilirubin.indirect [Mass/Vol] 0.6 mg/dL [facility] Sodium [Moles/volume] in Ser um or PlasmaOrdered By: PROVIDER TEMP on 06-17-2024 Sodium [Moles/Vol] 136 mmol/L Normal 136-145 [facility] Comment on above: Performed By: #### C BC, HEPATIC, BMP, LIPASE #### [facility] [address] [place] [address] Specific gravity Test strip (U) [Rel density]Ordered By: PROVIDER TEMP on 06-17-2024 Specific gravity (U) [Rel density] 1.018 1.001-1.030 [facility] Urea nitrogen [Mass/volume] in Serum or PlasmaOrdered By: PROVIDER TEMP on 06-17-2024 Urea nitrogen [Mass/Vol] 9 mg/dL Normal 7-25 [facility] Comment on above: Performed By: #### C BC, HEPATIC, BMP, LIPASE #### [address] Urinalysison 06-17-2024 Bilirubin,Urine Negative Normal Negative [facility] Comment on above: Order Comment: Name Collection Type:: Clean-Voided Midstream Performed By: #### C BC, HEPATIC, BMP, LIPASE #### [address] Glucose Ql (U) Normal Normal Normal [facility] Comment on above: Order Comment: Name Collection Type:: Clean-Voided Midstream Performed By: #### C BC, HEPATIC, BMP, LIPASE #### [address] Nitrite,Urine Negative Normal Negative [facility] Comment on above: Order Comment: Name Collection Type:: Clean-Voided Midstream Performed By: #### C BC, HEPATIC, BMP, LIPASE #### [address] Occult Blood,Urine Negative Normal Negative [facility] Comment on above: Order Comment: Name Collection Type:: Clean-Voided Midstream Performed By: #### C BC, HEPATIC, BMP, LIPASE #### [address] Protein,Urine Negative Normal Negative [facility] Comment on above: Order Comment: Name Collection Type:: Clean-Voided Midstream Performed By: #### C BC, HEPATIC, BMP, LIPASE #### [address] Specificy [place],Urine 1.018 Normal 1.001-1.030 [facility] Comment on above: Order Comment: Name Collection Type:: Clean-Voided Midstream Performed By: #### C BC, HEPATIC, BMP, LIPASE #### [address] Urobilinogen,Urine Normal Normal Normal [facility] Comment on above: Order Comment: Name Collection Type:: Clean-Voided Midstream Performed By: #### C BC, HEPATIC, BMP, LIPASE #### [facility] [address] Urine appearanceOrdered By: PROVIDER TEMP on 06-17-2024 Appearance (U) Clear Normal Clear [facility] Comment on above: Order Comment: Name Collection Type:: Clean-Voided Midstream Performed By: #### C BC, HEPATIC, BMP, LIPASE #### [facility] [address] Urobilinogen Test strip (U) [Mass/Vol]Ordered By: PROVIDER TEMP on 06-17-2024 Urobilinogen (U) [Mass/Vol] Normal mg/dL Normal [facility] pH of Urine by Test stripOrd ered By: PROVIDER TEMP on 06-17-2024 pH (U) 6.0 [pH] Normal 5.0-9.0 [facility] Comment on above: Order Comment: Name Collection Type:: Clean-Voided Midstream Performed By: #### C BC, HEPATIC, BMP, LIPASE #### [facility] [address] Choriogonadotropin.beta subu nit [Units/volume] in Serum or PlasmaOrdered By: Dominic Hester on 04-24-2024 HCG.beta subunit Qn m[IU]/mL [facility] Comment on above: Approximate Approxim ate hCG Gestational Age Range (mIU/ml) (weeks)0.2-1 5-50 1-2 50-500 2-3 100-5,000 3-4 500-10,000 4-5 1,000-50,000 5-6 10,000-100,000 6-8 15,000-200,000 8-12 10,000-100,000 HCG,Quantitativeon 4 HCG,Quantitative < 0.60 Normal [facility] Comment on above: Result Comment: Appr oximate Approximate hCG Gestational Age Range (mIU/ml) (weeks) 0.2-1 5-50 1-2 50-500 2-3 100-5,000 3-4 500-10,000 4-5 1,000-50,000 5-6 10,000-100,000 6-8 15,000-200,000 8-12 10,000-100,000 PERFORMED BY: [facility] [address] [place] [address] PATHOLOGIST CUPOLA OPERATOR INSULATION KHANG WEEKS M.D. Performed By: #### C BC, HEPATIC, BMP, LIPASE #### [facility] [address] Basophils Auto (Bld) [#/Vol] Ordered By: Sylvia Romero on 03-28-2023 Basophils (Bld) [#/Vol] 0.0 10*3/uL 0.0-0.2 [facility] Basophils/100 WBC Auto (Bld) Ordered By: Sylvia Romero on 03-28-2023 Basophils/100 WBC (Bld) 0.8 % . [facility] Choriogonadotropin.beta subu nit [Units/volume] in Serum or PlasmaOrdered By: Sylvia Romero on 03-28-2023 HCG.beta subunit Qn m[IU]/mL [facility] Comment on above: Approximate Approxim ate hCG Gestational Age Range (mIU/ml) (weeks)0.2-1 5-50 1-2 50-500 2-3 100-5,000 3-4 500-10,000 4-5 1,000-50,000 5-6 10,000-100,000 6-8 15,000-200,000 8-12 10,000-100,000 Eosinophils Auto (Bld) [#/Vo l]Ordered By: Sylvia Romero on 03-28-2023 Eosinophils (Bld) [#/Vol] 0.2 10*3/uL 0.0-0.45 [facility] Eosinophils/100 WBC Auto (Bl d)Ordered By: Sylvia Romero on 03-28-2023 Eosinophils/100 WBC (Bld) 4.7 % . [facility] Erythrocyte distribution wid th Auto (RBC) [Ratio]Ordered By: Sylvia Romero on 03-28-2023 Erythrocyte distribution width (RBC) [Ratio] 13.0 % 11.9-15.3 [facility] Hematocrit Auto (Bld) [Volum e fraction]Ordered By: Sylvia Romero on 03-28-2023 Hematocrit (Bld) [Volume fraction] 38.0 % 34.0-46.4 [facility] Hemoglobin [Mass/volume] in BloodOrdered By: Sylvia Romero on 03-28-2023 Hemoglobin (Bld) [Mass/Vol] 12.9 g/dL 11.8-15.4 [facility] Leukocytes [#/volume] correc ira for nucleated erythrocytes in Blood by Automated counOrdered By: Sylvia Romero on 03-28-2023 WBC corrected for nucl RBC Auto (Bld) [#/Vol] 4.1 10*3/uL 3.8-11.6 [facility] Lymphocytes Auto (Bld) [#/Vo l]Ordered By: Sylvia Romero on 03-28-2023 Lymphocytes (Bld) [#/Vol] 1.0 10*3/uL 1.00-4.8 [facility] Lymphocytes/100 WBC Auto (Bl d)Ordered By: Sylvia Romero on 03-28-2023 Lymphocytes/100 WBC (Bld) 23.9 % . [facility] MCH Auto (RBC) [Entitic mass ]Ordered By: Sylvia Romero on 03-28-2023 MCH (RBC) [Entitic mass] 31.3 pg 24.7-34.3 [facility] MCHC Auto (RBC) [Mass/Vol]Or dered By: Sylvia Romero on 03-28-2023 MCHC (RBC) [Mass/Vol] 33.9 g/dL 32.0-35.0 [facility] MCV Auto (RBC) [Entitic vol] Ordered By: Sylvia Romero on 03-28-2023 MCV (RBC) [Entitic vol] 92.3 fL 80-100 [facility] Monocytes Auto (Bld) [#/Vol] Ordered By: Sylvia Romero on 03-28-2023 Monocytes (Bld) [#/Vol] 0.3 10*3/uL 0.0-0.8 [facility] Monocytes/100 WBC Auto (Bld) Ordered By: Sylvia Romero on 03-28-2023 Monocytes/100 WBC (Bld) 7.5 % . [facility] Neutrophils Auto (Bld) [#/Vo l]Ordered By: Sylvia Romero on 03-28-2023 Neutrophils (Bld) [#/Vol] 2.6 10*3/uL 1.8-7.7 [facility] Neutrophils/100 WBC Auto (Bl d)Ordered By: Sylvia Romero on 03-28-2023 Neutrophils/100 WBC (Bld) 63.1 % . [facility] Nucleated erythrocytes [Pres ence] in Blood by Automated countOrdered By: Sylvia Romero on 03-28-2023 Nucleated RBC Auto Ql (Bld) 0.1 /100{WBC} 0-0.5 [facility] Platelet mean volume Auto (B ld) [Entitic vol]Ordered By: Sylvia Romero on 03-28-2023 Platelet mean volume (Bld) [Entitic vol] 8.8 fL 6.3-10.7 [facility] Platelets Auto (Bld) [#/Vol] Ordered By: Sylvia Romero on 03-28-2023 Platelets (Bld) [#/Vol] 196 10*3/uL 150-450 [facility] Prolactin [Mass/volume] in S mehdi or PlasmaOrdered By: Sylvia Romero on 03-28-2023 Prolactin [Mass/Vol] 3.20 ng/mL 3.34-26.72 [facility] RBC Auto (Bld) [#/Vol]Ordere d By: Sylvia Romero on 03-28-2023 RBC (Bld) [#/Vol] 4.12 10*6/uL 3.60-5.00 [facility] Thyrotropin [Units/volume] i n Serum or PlasmaOrdered By: Sylvia Romero on 03-28-2023 TSH Qn 1.31 m[IU]/L 0.45-5.33 [facility] WBC Auto (Bld) [#/Vol]Ordere d By: [...] KENNEDY LEHMAN Date: 2023-01-19 23:22 Normal [facility] CBC AUTO DIFFon 01-17-2023 BASO # 0.0 103/ul Normal 0.0-0.1 [facility] Comment on above: Performed By: #### C ANJU PULIDO, SYLVIA #### [facility] [address] [place] [address] Dr. Lester Yen Basophils/100 WBC (Bld) 1.1 % Normal 0.2-2.0 [facility] Comment on above: Performed By: #### C ASHOK LIPA, SYLVIA #### [facility] [address] [place] [address] Dr. Lester Yen EO # 0.2 103/ul Normal 0.0-0.7 [facility] Comment on above: Performed By: #### C ASHOK LIPA, SYLVIA #### [facility] [address] [place] [address] Dr. Lester Yen Eosinophils/100 WBC (Bld) 5.4 % Normal 0.9-7.0 [facility] Comment on above: Performed By: #### C ASHOK LIPA, SYLVIA #### [facility] [address] [place] [address] Dr. Lester Yen Erythrocyte distribution width (RBC) [Ratio] 12.4 % Normal 11.0-15.0 [facility] Comment on above: Performed By: #### C ASHOK LIPA, SYLVIA #### [facility] [address] [place] [address] Dr. Lester Yen Hematocrit (Bld) [Volume fraction] 37.7 % Normal 36.0-48.0 [facility] Comment on above: Performed By: #### C BECKI PULIDOA, SYLVIA #### [facility] [address] [place] [address] Dr. Lester Yen Hemoglobin (Bld) [Mass/Vol] 13.2 g/dL Normal 12.0-16.0 [facility] Comment on above: Performed By: #### C ASHOK LIPA, SYLVIA #### [facility] [address] [place] [address] Dr. Lester Yen IG # 0.01 10e3/ul Normal 0.00-0.03 [facility] Comment on above: Performed By: #### C ASHOK LIPA, SYLVIA #### [facility] [address] [place] [address] Dr. Lester Yen IG % 0.3 % Normal 0.0-0.5 [facility] Comment on above: Performed By: #### C ASHOK LIPA, SYLVIA #### [facility] [address] [place] [address] Dr. Lester Yen LYMPH # 1.1 103/ul Critically low 1.2-3.8 [facility] Comment on above: Performed By: #### C BECKI PULIDOA, SYLVIA #### [facility] [address] [place] [address] Dr. Lester Yen Lymphocytes/100 WBC (Bld) 28.3 % Normal 20.5-60.0 [facility] Comment on above: Performed By: #### C ASHOK LIPA, SYLVIA #### [facility] [address] [place] [address] Dr. Lester Yen MANUAL DIFF REQ NO Normal [facility] Comment on above: Performed By: #### C ASHOK LIPA, SYLVIA #### [facility] [address] [place] [address] Dr. Lester Yen MCH (RBC) [Entitic mass] 31.5 pg Normal 26.7-34.0 [facility] Comment on above: Performed By: #### C ASHOK LIPA, SYLVIA #### [facility] [address] [place] [address] Dr. Lester Yen MCHC (RBC) [Mass/Vol] 35.0 g/dL Normal 29.9-35.2 [facility] Comment on above: Performed By: #### C ASHOK LIPA, SYLVIA #### [facility] [address] [place] [address] Dr. Lester Yen MCV (RBC) [Entitic vol] 90.0 fL Normal 81.0-99.0 [facility] Comment on above: Performed By: #### C MP LIPA, SYLVIA #### [facility] [address] [place] [address] Dr. Lester Yen MONO # 0.3 103/ul Normal 0.3-0.8 [facility] Comment on above: Performed By: #### C MP LIPA, SYLVIA #### [facility] [address] [place] [address] Dr. Lester Yen Monocytes/100 WBC (Bld) 9.2 % Normal 1.7-12.0 [facility] Comment on above: Performed By: #### C MP, LIPA, SYLVIA #### [facility] [address] [place] [address] Dr. Lester Yen NEUT # 2.1 103/ul Normal 1.4-6.5 [facility] Comment on above: Performed By: #### C MP, LIPA, SYLVIA #### [facility] [address] [place] [address] Dr. Lester Yen Neutrophils/100 WBC (Bld) 55.7 % Normal 43.0-75.0 [facility] Comment on above: Performed By: #### C MP, LIPA, SYLVIA #### [facility] [address] [place] [address] Dr. Lester Yen Platelet mean volume (Bld) [Entitic vol] 9.2 fL Critically low 9.5-13.5 [facility] Comment on above: Performed By: #### C MP, LIPA, SYLVIA #### [facility] [address] [place] [address] Dr. Lester Yen PLT 209 103/ul Normal 150-450 [facility] Comment on above: Performed By: #### C MP, LIPA, SYLVIA #### [facility] [address] [place], [place] [address] Dr. Lester Yen RBC 4.19 106/ul Critically low 4.20-5.40 [facility] Comment on above: Performed By: #### C MP, LIPA, SYLVIA #### [facility] [address] [address] [address] Lester Yen WBC 3.7 103/ul Critically low 4.0-11.0 [facility] Comment on above: Performed By: #### C MP, LIPA, SYLVIA #### [facility] [address] [address] [address] Lester Yen TYPE AND SCREENon 01-17-2023 TYPE AND SCREEN Negative Normal [facility] Comment on above: Performed By: #### C ASHOK, LIPA, SYLVIA #### [facility] [address] [address] [address] Lester Yen Alanine aminotransferase [En zymatic activity/volume] in Serum or PlasmaOrdered By: Monika Camarillo on 01-03-2023 ALT [Catalytic activity/Vol] 13 U/L 7-52 [facility] Albumin [Mass/volume] in Ser um or Plasma by Bromocresol green (BCG) dye binding methoOrdered By: Monika Camarillo on 01-03-2023 Albumin BCG dye [Mass/Vol] 4.7 g/dL 3.5-5.7 [facility] Alkaline phosphatase [Enzyma tic activity/volume] in Serum or PlasmaOrdered By: Monika Camarillo on 01-03-2023 ALP [Catalytic activity/Vol] 47 U/L 34-104 [facility] Aspartate aminotransferase [ Enzymatic activity/volume] in Serum or PlasmaOrdered By: Monika Camarillo on 01-03-2023 AST [Catalytic activity/Vol] 15 U/L 13-39 [facility] Basophils Auto (Bld) [#/Vol] Ordered By: Monika Camarillo on 01-03-2023 Basophils (Bld) [#/Vol] 0.0 10*3/uL 0.0-0.2 [facility] Basophils/100 WBC Auto (Bld) Ordered By: Monika Camarillo on 01-03-2023 Basophils/100 WBC (Bld) 0.3 % . [facility] Bilirubin Test strip Ql (U)O rdered By: Monika Camarillo on 01-03-2023 Bilirubin Ql (U) Negative [facility] Bilirubin.total [Mass/volume ] in Serum or PlasmaOrdered By: Monika Camarillo on 01-03-2023 Bilirubin [Mass/Vol] 0.8 mg/dL 0.3-1.0 [facility] Calcium [Mass/volume] in Ser um or PlasmaOrdered By: Monika Camarillo on 01-03-2023 Calcium [Mass/Vol] 9.2 mg/dL 8.6-10.3 [facility] Carbon dioxide, total [Moles /volume] in Serum or PlasmaOrdered By: Monika Camarillo on 01-03-2023 CO2 [Moles/Vol] 23.8 mmol/L 21.0-31.0 [facility] Chloride [Moles/volume] in S mehdi or PlasmaOrdered By: Monika Camarillo on 01-03-2023 Chloride [Moles/Vol] 105 mmol/L 98-107 [facility] Choriogonadotropin.beta subu nit [Units/volume] in Serum or PlasmaOrdered By: Monika Camarillo on 01-03-2023 [place] [address].00 m[IU]/mL [facility] Comment on above: Approximate Approxim ate hCG Gestational Age Range (mIU/ml) (weeks)0.2-1 5-50 1-2 50-500 2-3 100-5,000 3-4 500-10,000 4-5 1,000-50,000 5-6 10,000-100,000 6-8 15,000-200,000 8-12 10,000-100,000 Color Auto (U)Ordered By: Po Camarillo on 01-03-2023 Color (U) Yellow Yellow [facility] Creatinine [Mass/volume] in Serum or PlasmaOrdered By: Monika Camarillo on 01-03-2023 Creatinine [Mass/Vol] 0.71 mg/dL 0.60-1.20 [facility] ER URINE PROFILEon 3 Bilirubin Ql (U) Negative Normal NEGATIVE [facility] Comment on above: Performed By: #### E RUR #### [facility] [address] [place] [address] Dr. Lester Yen Clarity (U) CLEAR Normal CLEAR [facility] Comment on above: Performed By: #### E RUR #### [facility] [address] [place] [address] Dr. Lester Yen Color (U) LT. YELLOW Normal YELLOW [facility] Comment on above: Performed By: #### E RUR #### [facility] [address] [place] [address] Dr. Lester LEA A micrscopic examination will be performed if indicated. Normal [facility] Comment on above: Performed By: #### E RUR #### [facility] [address] [place] [address] Dr. Lester Yen Glucose Ql (U) Negative Normal NEGATIVE [facility] Comment on above: Performed By: #### E RUR #### [facility] [address] [place] [address] Dr. Lester Yen Hemoglobin Ql (U) Negative Normal NEGATIVE [facility] Comment on above: Performed By: #### E RUR #### [facility] [address] [place] [address] Dr. Lester Yen Ketones Ql (U) 15 mg/dl Abnormal NEGATIVE [facility] Comment on above: Performed By: #### E RUR #### [facility] [address] [place] [address] Dr. Lester Yen LEUKOCYTES Negative Normal NEGATIVE [facility] Comment on above: Performed By: #### E RUR #### [facility] [address] [place] [address] Dr. Lester Yen Nitrite Ql (U) Negative Normal NEGATIVE [facility] Comment on above: Performed By: #### E RUR #### [facility] [address] [place] [address] Dr. Lester Yen pH (U) 6.0 [pH] Normal 5-9 [facility] Comment on above: Performed By: #### E RUR #### [facility] [address] [place] [address] Dr. Lester Yen SPEC GRAVITY <=1.005 Abnormal 1.005-<=1.02 5 [facility] Comment on above: Performed By: #### E RUR #### [facility] [address] [address] [address] Lester Yen UA PROTEIN Negative Normal NEGATIVE/ TRACE [facility] Comment on above: Performed By: #### E RUR #### [facility] [address] [address] [address] Lester Yen UR MICRO IND NOT INDICATED Normal [facility] Comment on above: Performed By: #### E RUR #### [facility] [address] [place] [address] Dr. Lester Yen Urobilinogen Qn (U) 0.2 {Olivier'U}/dL Normal 0.2 - 1. 0 [facility] Comment on above: Performed By: #### E RUR #### [facility] [address] [place] [address] Dr. Lester Yen Eosinophils Auto (Bld) [#/Vo l]Ordered By: Monika Camarillo on 01-03-2023 Eosinophils (Bld) [#/Vol] 0.3 10*3/uL 0.0-0.45 [facility] Eosinophils/100 WBC Auto (Bl d)Ordered By: Monika Camarillo on 01-03-2023 Eosinophils/100 WBC (Bld) 5.4 % . [facility] Erythrocyte distribution wid th Auto (RBC) [Ratio]Ordered By: Monika Camarillo on 01-03-2023 Erythrocyte distribution width (RBC) [Ratio] 12.7 % 11.9-15.3 [facility] Globulin Calc (S) [Mass/Vol] Ordered By: Monika Camarillo on 01-03-2023 Globulin (S) [Mass/Vol] 2.1 g/dL [facility] Glucose [Mass/volume] in Ser um or PlasmaOrdered [...] Hematocrit (Bld) [Volume fraction] 39.8 % 34.0-46.4 [facility] Hemoglobin [Mass/volume] in BloodOrdered By: Monika Camarillo on 01-03-2023 Hemoglobin (Bld) [Mass/Vol] 13.4 g/dL 11.8-15.4 [facility] Ketones Auto test strip (U) [Mass/Vol]Ordered By: Monika Camarillo on 01-03-2023 Ketones (U) [Mass/Vol] Negative Negative [facility] Leukocytes [#/volume] correc ira for nucleated erythrocytes in Blood by Automated counOrdered By: Monika Camarillo on 01-03-2023 WBC corrected for nucl RBC Auto (Bld) [#/Vol] 5.7 10*3/uL 3.8-11.6 [facility] Lipase [Enzymatic activity/v olume] in Serum or PlasmaOrdered By: Monika Camarillo on 01-03-2023 Lipase [Catalytic activity/Vol] 17.0 U/L 11.0-82.0 [facility] Lymphocytes Auto (Bld) [#/Vo l]Ordered By: Monika Camarillo on 01-03-2023 Lymphocytes (Bld) [#/Vol] 0.9 10*3/uL 1.00-4.8 [facility] Lymphocytes/100 WBC Auto (Bl d)Ordered By: Monika Camarillo on 01-03-2023 Lymphocytes/100 WBC (Bld) 15.2 % . [facility] MCH Auto (RBC) [Entitic mass ]Ordered By: Monika Camarillo on 01-03-2023 MCH (RBC) [Entitic mass] 31.0 pg 24.7-34.3 [facility] MCHC Auto (RBC) [Mass/Vol]Or dered By: Monika Camarillo on 01-03-2023 MCHC (RBC) [Mass/Vol] 33.6 g/dL 32.0-35.0 [facility] MCV Auto (RBC) [Entitic vol] Ordered By: Monika Camarillo on 01-03-2023 MCV (RBC) [Entitic vol] 92.2 fL 80-100 [facility] Monocyte distribution width [Entitic volume] in Blood by AutomatedOrdered By: Monika Camarillo on 01-03-2023 Monocyte distribution width Auto (Bld) [Entitic vol] 17.53 % 0.00-20.00 [facility] Monocytes Auto (Bld) [#/Vol] Ordered By: Monika Camarillo on 01-03-2023 Monocytes (Bld) [#/Vol] 0.4 10*3/uL 0.0-0.8 [facility] Monocytes/100 WBC Auto (Bld) Ordered By: Monika Camarillo on 01-03-2023 Monocytes/100 WBC (Bld) 6.5 % . [facility] Neutrophils Auto (Bld) [#/Vo l]Ordered By: Monika Camarillo on 01-03-2023 Neutrophils (Bld) [#/Vol] 4.1 10*3/uL 1.8-7.7 [facility] Neutrophils/100 WBC Auto (Bl d)Ordered By: Monika Camarillo on 01-03-2023 Neutrophils/100 WBC (Bld) 72.6 % . [facility] Nitrite Test strip Ql (U)Ord ered By: Monika Camarillo on 01-03-2023 Nitrite Ql (U) Negative Negative [facility] No Panel InformationOrdered By: Monika Camarillo on 01-03-2023 Estimated GFR (CKD-EPI) > 60.0 mL/Min [facility] Creatinine Clearance (Chem 94.97 [facility] Nucleated erythrocytes [Pres ence] in Blood by Automated countOrdered By: Monika Camarillo on 01-03-2023 Nucleated RBC Auto Ql (Bld) 0.1 /100{WBC} 0-0.5 [facility] Platelet mean volume Auto (B ld) [Entitic vol]Ordered By: Monika Camarillo on 01-03-2023 Platelet mean volume (Bld) [Entitic vol] 7.5 fL 6.3-10.7 [facility] Platelets Auto (Bld) [#/Vol] Ordered By: Monika Camarillo on 01-03-2023 Platelets (Bld) [#/Vol] 187 10*3/uL 150-450 [facility] Potassium [Moles/volume] in Serum or PlasmaOrdered By: Monika Camarillo on 01-03-2023 Potassium [Moles/Vol] 3.7 mmol/L 3.5-5.1 [facility] Protein Auto test strip (U) [Mass/Vol]Ordered By: Monika Camarillo on 01-03-2023 Protein (U) [Mass/Vol] Negative Negative [facility] Protein [Mass/volume] in Ser um or PlasmaOrdered By: Monika Camarillo on 01-03-2023 Protein [Mass/Vol] 6.8 g/dL 6.4-8.9 [facility] RBC Auto (Bld) [#/Vol]Ordere d By: Monika Camarillo on 01-03-2023 RBC (Bld) [#/Vol] 4.32 10*6/uL 3.60-5.00 [facility] Serum or plasma albumin/glob ulin mass ratioOrdered By: Monika Camarillo on 01-03-2023 Albumin/Globulin [Mass ratio] 2.2 {ratio} [facility] Serum or plasma anion gap de terminationOrdered By: Monika Camarillo on 01-03-2023 Anion gap [Moles/Vol] 10.9 mmol/L 6.0-15.0 [facility] Sodium [Moles/volume] in Ser um or PlasmaOrdered By: Monika Camarillo on 01-03-2023 Sodium [Moles/Vol] 136 mmol/L 136-145 [facility] Specific gravity Auto test s trip (U) [Rel density]Ordered By: Monika Camarillo on 01-03-2023 Specific gravity (U) [Rel density] 1.005 1.001-1.030 [facility] US PREG TVon 01-03-2023 US PREG [...] LOPEZ ZARAGOZA Date: 2023-01-03 21:49 Normal [facility] Urea nitrogen [Mass/volume] in Serum or PlasmaOrdered By: Monika Camarillo on 01-03-2023 Urea nitrogen [Mass/Vol] 9 mg/dL 7-25 [facility] Urine clarity by refractomet ry automatedOrdered By: Monika Camarillo on 01-03-2023 Clarity Refractometry automated (U) Clear Clear [facility] Urine glucose measurement by automated test strip (mass/volume)Ordered By: Monika Camarillo on 01-03-2023 Glucose Auto test strip (U) [Mass/Vol] Normal mg/dL Normal [facility] Urine hemoglobin detection b y automated test stripOrdered By: Monika Camarillo on 01-03-2023 Hemoglobin Auto test strip Ql (U) Negative Negative [facility] Urine leukocyte esterase det ection by automated test stripOrdered By: Monika Camarillo on 01-03-2023 Leukocyte esterase Auto test strip Ql (U) Negative Negative [facility] Urobilinogen Auto test strip (U) [Mass/Vol]Ordered By: Monika Camarillo on 01-03-2023 Urobilinogen (U) [Mass/Vol] Normal mg/dL Normal [facility] WBC Auto (Bld) [#/Vol]Ordere d By: Monika Camarillo on 01-03-2023 WBC (Bld) [#/Vol] 5.7 10*3/uL 3.8-11.6 [facility] pH Auto test strip (U)Ordere d By: Monika Camarlilo on 01-03-2023 pH (U) 6.5 [pH] 5.0-9.0 [facility] US PREG TVon 12-26-2022 US PREG [...] KENNEDY LEHMAN Date: 2022-12-26 15:07 Normal [facility] PREG QUANT HCGon 12-25-2022 HCG QUANT 18458 mIU/mL Normal [facility] Comment on above: Performed By: #### P REGQNT #### [facility] [address] [place] [address] Dr. Lester Yen HCG RANGE SEE BELOW Normal [facility] Comment on above: Result Comment: 5-50 0.2-1 WEEK 50-500 1-2 WEEKS 100-5,000 2-3 WEEKS 500-10,000 3-4 WEEKS 1,000-50,000 4-5 WEEKS 10,000-100,000 5-6 WEEKS 15,000-200,000 6-8 WEEKS 10,000-100,000 2-3 MONTHS Performed By: #### P REGQNT #### [facility] [address] [address] [address] Lester Yen Albumin [Mass/volume] in Ser um or PlasmaOrdered By: Monika Camarillo on 08-02-2022 Albumin [Mass/Vol] 3.7 g/dL 3.2-5.5 [facility] Basophils Auto (Bld) [#/Vol] Ordered By: Monika Camarillo on 08-02-2022 Basophils (Bld) [#/Vol] 0.0 10*3/uL 0.0-0.2 [facility] Basophils/100 WBC Auto (Bld) Ordered By: Monika Camarillo on 08-02-2022 Basophils/100 WBC (Bld) 0.8 % . [facility] Bilirubin Test strip Ql (U)O rdered By: Monika Camarillo on 08-02-2022 Bilirubin Ql (U) Negative Negative [facility] Color Auto (U)Ordered By: Co urregina Camarillo on 08-02-2022 Color (U) Yellow Yellow [facility] Creatinine and Glomerular fi ltration rate.predicted panel (S/P/Bld)Ordered By: Monika Camarillo on 08-02-2022 Creatinine [Mass/Vol] 0.86 mg/dL 0.44-1.03 [facility] Eosinophils Auto (Bld) [#/Vo l]Ordered By: Monika Camarillo on 08-02-2022 Eosinophils (Bld) [#/Vol] 0.4 10*3/uL 0.0-0.45 [facility] Eosinophils/100 WBC Auto (Bl d)Ordered By: Monika Camarillo on 08-02-2022 Eosinophils/100 WBC (Bld) 12.8 % . [facility] Erythrocyte distribution wid th Auto (RBC) [Ratio]Ordered By: Monika Camarillo on 08-02-2022 Erythrocyte distribution width (RBC) [Ratio] 12.7 % 11.9-15.3 [facility] Estimated glomerular filtrat ion rate (GFR) non- AmericanOrdered By: Monika Camarillo on 08-02-2022 GFR/1.73 sq M.predicted among non-blacks MDRD (S/P/Bld) [Vol rate/Area] > 60 mL/Min [facility] Globulin Calc (S) [Mass/Vol] Ordered By: Monika Camarillo on 08-02-2022 Globulin (S) [Mass/Vol] 2.4 g/dL [facility] HCG ( test) IA.rapi d Ql (U)Ordered By: Monika Camarillo on 08-02-2022 HCG ( test) Ql (U) Negative [facility] Hematocrit Auto (Bld) [Volum e fraction]Ordered By: Monika Camarillo on 08-02-2022 Hematocrit (Bld) [Volume fraction] 38.4 % 34.0-46.4 [facility] Hemoglobin [Mass/volume] in BloodOrdered By: Monika Camarillo on 08-02-2022 Hemoglobin (Bld) [Mass/Vol] 13.1 g/dL 11.8-15.4 [facility] Ketones Auto test strip (U) [Mass/Vol]Ordered By: Monika Camarillo on 08-02-2022 Ketones (U) [Mass/Vol] Negative Negative [facility] - Hematology and Cell countsOrdered By: Monika Camarillo on 08-02-2022 Nucleated RBC/100 WBC (Bld) [Ratio] 0.1 % 0-0.5 [facility] Leukocytes [#/volume] in Blo od by Automated countOrdered By: Monika Camarillo on 08-02-2022 WBC (Bld) [#/Vol] 3.4 10*3/uL 4.5-11.0 [facility] Lymphocytes Auto (Bld) [#/Vo l]Ordered By: Monika Camarillo on 08-02-2022 Lymphocytes (Bld) [#/Vol] 1.0 10*3/uL 1.00-4.8 [facility] Lymphocytes/100 WBC Auto (Bl d)Ordered By: Monika Camarillo on 08-02-2022 Lymphocytes/100 WBC (Bld) 28.2 % . [facility] MCH Auto (RBC) [Entitic mass ]Ordered By: Monika Camarillo on 08-02-2022 MCH (RBC) [Entitic mass] 31.1 pg 24.7-34.3 [facility] MCHC Auto (RBC) [Mass/Vol]Or dered By: Monika Camarillo on 08-02-2022 MCHC (RBC) [Mass/Vol] 34.1 g/dL 32.0-35.0 [facility] MCV Auto (RBC) [Entitic vol] Ordered By: Monika Camarillo on 08-02-2022 MCV (RBC) [Entitic vol] 91.4 fL 80-100 [facility] Monocytes Auto (Bld) [#/Vol] Ordered By: Monika Camarillo on 08-02-2022 Monocytes (Bld) [#/Vol] 0.3 10*3/uL 0.0-0.8 [facility] Monocytes/100 WBC Auto (Bld) Ordered By: Monika Camarillo on 08-02-2022 Monocytes/100 WBC (Bld) 7.7 % . [facility] Neutrophils Auto (Bld) [#/Vo l]Ordered By: Monika Camarillo on 08-02-2022 Neutrophils (Bld) [#/Vol] 1.7 10*3/uL 1.8-7.7 [facility] Neutrophils/100 WBC Auto (Bl d)Ordered By: Monika Camarillo on 08-02-2022 Neutrophils/100 WBC (Bld) 50.5 % . [facility] Nitrite Test strip Ql (U)Ord ered By: Monika Camarillo on 08-02-2022 Nitrite Ql (U) Negative Negative [facility] No Panel InformationOrdered By: Monika Camarillo on 08-02-2022 Estimated GFR () > 60 mL/Min [facility] Comment on above: GFR estimated refere nce range: According to KDOQI guidelines, <60 ml/min/1.73m2 is sufficient to diagnose a patient with chronic kidney disease. Pharmacy Creatinine Clearance (Chem 79.12 [facility] Platelet mean volume Auto (B ld) [Entitic vol]Ordered By: Monika Camarillo on 08-02-2022 Platelet mean volume (Bld) [Entitic vol] 7.8 fL 6.3-10.7 [facility] Platelets Auto (Bld) [#/Vol] Ordered By: Monika Camarillo on 08-02-2022 Platelets (Bld) [#/Vol] 203 10*3/uL 150-450 [facility] Protein Auto test strip (U) [Mass/Vol]Ordered By: Monika Camarillo on 08-02-2022 Protein (U) [Mass/Vol] Negative Negative [facility] Protein [Mass/volume] in Ser um or PlasmaOrdered By: Monika Camarillo on 08-02-2022 Protein [Mass/Vol] 6.1 g/dL 6.1-7.9 [facility] RBC Auto (Bld) [#/Vol]Ordere d By: Monika Camarillo on 08-02-2022 RBC (Bld) [#/Vol] 4.20 10*6/uL 3.60-5.00 [facility] Serum or plasma alanine gaspar otransferase measurement without P-5'-P (enzymatic activiOrdered By: Monika Camarillo on 08-02-2022 ALT No additional P-5'-P [Catalytic activity/Vol] 13 U/L 1060 [facility] Serum or plasma albumin/glob ulin mass ratioOrdered By: Monika Camarillo on 08-02-2022 Albumin/Globulin [Mass ratio] 1.5 {ratio} [facility] Serum or plasma alkaline radames sphatase measurement (enzymatic activity/volume)Ordered By: Monika Camarillo on 08-02-2022 ALP [Catalytic activity/Vol] 46 U/L 32-92 [facility] Serum or plasma anion gap de terminationOrdered By: Monika Camarillo on 08-02-2022 Anion gap [Moles/Vol] 11.0 mmol/L 6.0-15.0 [facility] Serum or plasma aspartate am inotransferase measurement (enzymatic activity/volume)Ordered By: Monika Camarillo on 08-02-2022 AST [Catalytic activity/Vol] 16 U/L 10-42 [facility] Serum or plasma calcium unique urement (mass/volume)Ordered By: Monika Camarillo on 08-02-2022 Calcium [Mass/Vol] 9.2 mg/dL 8.2-10.2 [facility] Serum or plasma chloride debbie surement (moles/volume)Ordered By: Monika Camarillo on 08-02-2022 Chloride [Moles/Vol] 104 mmol/L 95-114 [facility] Serum or plasma glucose unique urement (mass/volume)Ordered [...] on 08-02-2022 Potassium [Moles/Vol] 3.4 mmol/L 3.5-5.1 [facility] Serum or plasma sodium measu rement (moles/volume)Ordered By: Monika Camarillo on 08-02-2022 Sodium [Moles/Vol] 137 mmol/L 136-146 [facility] Serum or plasma total biliru bin measurement (mass/volume)Ordered By: Monika Camarillo on 08-02-2022 Bilirubin [Mass/Vol] 0.6 mg/dL 0.3-1.2 [facility] Serum or plasma total carbon dioxide measurement (moles/volume)Ordered By: Monika Camarillo on 08-02-2022 CO2 [Moles/Vol] 25.4 mmol/L 22.0-30.0 [facility] Serum or plasma urea nitroge n measurement (mass/volume)Ordered By: Monika Camarillo on 08-02-2022 Urea nitrogen [Mass/Vol] 8 mg/dL 9-23 [facility] Specific gravity Auto test s trip (U) [Rel density]Ordered By: Monika Camarillo on 08-02-2022 Specific gravity (U) [Rel density] 1.009 1.001-1.030 [facility] Urine clarity by refractomet ry automatedOrdered By: Monika Camarillo on 08-02-2022 Clarity Refractometry automated (U) Clear Clear [facility] Urine glucose measurement by automated test strip (mass/volume)Ordered By: Monika Camarillo on 08-02-2022 Glucose Auto test strip (U) [Mass/Vol] Normal mg/dL Normal [facility] Urine hemoglobin detection b y automated test stripOrdered By: Monika Camarillo on 08-02-2022 Hemoglobin Auto test strip Ql (U) Negative Negative [facility] Urine lactic acid measuremen tOrdered By: Monika Camarillo on 08-02-2022 Lactate (U) [Moles/Vol] 1.4 mmol/L 0.5-2.2 [facility] Urine leukocyte esterase det ection by automated test stripOrdered By: Monika Camarillo on 08-02-2022 Leukocyte esterase Auto test strip Ql (U) Negative Negative [facility] Urobilinogen Auto test strip (U) [Mass/Vol]Ordered By: Monika Camarillo on 08-02-2022 Urobilinogen (U) [Mass/Vol] Normal mg/dL Normal [facility] pH Auto test strip (U)Ordere d By: Monika Camarillo on 08-02-2022 pH (U) 8.0 [pH] 5.0-9.0 [facility] CBC AUTO DIFFon 07-29-2022 BASO # 0.0 103/ul Normal 0.0-0.1 [facility] Comment on above: Performed By: #### C BC #### [facility] [address] [place] [address] Dr. Lester Yen Basophils/100 WBC (Bld) 1.1 % Normal 0.2-2.0 [facility] Comment on above: Performed By: #### C BC #### [facility] [address] [address] [address] Lester Yen EO # 0.4 103/ul Normal 0.0-0.7 [facility] Comment on above: Performed By: #### C BC #### [facility] [address] [address] [address] Lester Yen Eosinophils/100 WBC (Bld) 10.8 % Critically high 0.9-7.0 [facility] Comment on above: Performed By: #### C BC #### [facility] [address] [address] [address] Lester Yen Erythrocyte distribution width (RBC) [Ratio] 12.0 % Normal 11.0-15.0 [facility] Comment on above: Performed By: #### C BC #### [facility] [address] [address] [address] Lester Yen Hematocrit (Bld) [Volume fraction] 36.3 % Normal 36.0-48.0 [facility] Comment on above: Performed By: #### C BC #### [facility] [address] [address] [address] Lester Yen Hemoglobin (Bld) [Mass/Vol] 12.4 g/dL Normal 12.0-16.0 [facility] Comment on above: Performed By: #### C BC #### [facility] [address] [address] [address] Lester Yen IG # 0.00 10e3/ul Normal 0.00-0.03 [facility] Comment on above: Performed By: #### C BC #### [facility] [address] [address] [address] Lester Yen IG % 0.0 % Normal 0.0-0.5 [facility] Comment on above: Performed By: #### C BC #### [facility] [address] [address] [address] Lester Yen LYMPH # 1.6 103/ul Normal 1.2-3.8 [facility] Comment on above: Performed By: #### C BC #### [facility] [address] [address] [address] Lester Yen Lymphocytes/100 WBC (Bld) 41.6 % Normal 20.5-60.0 [facility] Comment on above: Performed By: #### C BC #### [facility] [address] [address] [address] Lester Yen MANUAL DIFF REQ NO Normal [facility] Comment on above: Performed By: #### C BC #### [facility] [address] [place] [address] Dr. Lester Yen MCH (RBC) [Entitic mass] 31.9 pg Normal 26.7-34.0 [facility] Comment on above: Performed By: #### C BC #### [facility] [address] [address] [address] Lester Yen MCHC (RBC) [Mass/Vol] 34.2 g/dL Normal 29.9-35.2 [facility] Comment on above: Performed By: #### C BC #### [facility] [address] [address] [address] Lester Yen MCV (RBC) [Entitic vol] 93.3 fL Normal 81.0-99.0 [facility] Comment on above: Performed By: #### C BC #### [facility] [address] [address] [address] Lester Yen MONO # 0.3 103/ul Normal 0.3-0.8 [facility] Comment on above: Performed By: #### C BC #### [facility] [address] [place] [address] Dr. Lester Yen Monocytes/100 WBC (Bld) 8.2 % Normal 1.7-12.0 [facility] Comment on above: Performed By: #### C BC #### [facility] [address] [place] [address] Dr. Lester Yen NEUT # 1.5 103/ul Normal 1.4-6.5 [facility] Comment on above: Performed By: #### C BC #### [facility] [address] [place] [address] Dr. Lester Yen Neutrophils/100 WBC (Bld) 38.3 % Critically low 43.0-75.0 [facility] Comment on above: Performed By: #### C BC #### [facility] [address] [place] [address] Dr. Lester Yen Platelet mean volume (Bld) [Entitic vol] 9.3 fL Critically low 9.5-13.5 [facility] Comment on above: Performed By: #### C BC #### [facility] [address] [place] [address] Dr. Lester Yen PLT 184 103/ul Normal 150-450 [facility] Comment on above: Performed By: #### C BC #### [facility] [address] [address] [address] Lester Yen RBC 3.89 106/ul Critically low 4.20-5.40 [facility] Comment on above: Performed By: #### C BC #### [facility] [address] [address] [address] Lester Yen WBC 3.8 103/ul Critically low 4.0-11.0 [facility] Comment on above: Performed By: #### C BC #### [facility] [address] [place] [address] Dr. Lester Yen Covid-19 PCR ([facility])on 07-07 SARS-CoV-2 (COVID-19) RNA JOSE+probe Ql (Unsp spec) Not detected Normal NOT DETECTED [facility] Comment on above: Result Comment: When diagnostic [...] for this test is supported by the Boat Dispatcher of Health and Human Service's declaration that [...] be used). Performed By: #### C ANJU PULIDO, SYLVIA #### [facility] [address] [place] [address] Dr. Lester Yen PREG QUANT HCGon 07-29-2022 HCG QUANT 1 mIU/mL Normal [facility] Comment on above: Performed By: #### C ANJU PULIDO, SYLVIA #### [facility] [address] [place] [address] Dr. Lester Yen HCG RANGE SEE BELOW Normal [facility] Comment on above: Result Comment: 5-50 0.2-1 WEEK 50-500 1-2 WEEKS 100-5,000 2-3 WEEKS 500-10,000 3-4 WEEKS 1,000-50,000 4-5 WEEKS 10,000-100,000 5-6 WEEKS 15,000-200,000 6-8 WEEKS 10,000-100,000 2-3 MONTHS Performed By: #### C ANJU PULIDO AMY #### [facility] [address] [address] [address] Lester Yen HIV 1 and HIV-2 antibody ass ay with HIV-1 p24 antigen detectionOrdered By: Dominic Hester on 06-18-2022 HIV 1+2 Ab+HIV1 p24 Ag IA Ql Non-Reactive Non Reactive [facility] Comment on above: HIV NegativeHIV-1/HI V-2 antibodies and HIV-1 p24 antigen were NOTdetected. There is no laboratory evidence of HIV infection.Performed at: [address] [place], [place] [id number] Director: Lebron Manzo PhD, Phone: [phone] Hepatitis B virus surface Ag [Presence] in Serum or Plasma by ImmunoassayOrdered By: Dominic Hester on 06-18-2022 HBV surface Ag IA Ql Negative Negative [facility] Hepatitis C virus RNA [Units /volume] (viral load) in Serum or Plasma by OJSE with probOrdered By: Dominic Hester on 06-18-2022 HCV RNA JOSE+probe Qn N/A [facility] Hepatitis C virus RNA [log u nits/volume] (viral load) in Serum or Plasma by JOSE withOrdered By: Dominic Hester on 06-18-2022 HCV RNA JOSE+probe [Log units/Vol] N/A [facility] No Panel InformationOrdered By: Dominic Hester on 06-18-2022 Hepatitis A IgM Antibody Negative Negative [facility] Hepatitis B Core IgM Antibody Negative Negative [facility] Hepatitis C Interpretation See comment . [facility] Comment on above: NegativeNot infected with HCV, unless recent infection issuspected or other evidence exists to indicate HCVinfection.Performed at: [facility] [place] [id number] Director: Lebron Manzo PhD, Phone: [phone] Hepatitis C RNA Quantitative N/A [facility] Reagin Ab [Presence] in Seru m by RPROrdered By: Dominic Hester on 06-18-2022 Reagin Ab RPR Ql (S) Non-Reactive Non Reactive [facility] Comment on above: Performed at: [facility] [id number] [place], [place] [id number] Director: Lebron Manzo PhD, Phone: [phone] Serum or plasma hepatitis C virus antibody signal/cutoff ratio by immunoassay (relatiOrdered By: Dominic Hester on 06-18-2022 HCV Ab Signal/Cutoff IA [Rel units/Vol] <0.1 s/co ratio 0.0-0.9 [facility] CHLAMYDIA/GONOCOCCUS JOSE (SW AB/URINE/PAPon 06-04-2022 Chlamydia trachomatis, JOSE Negative Normal Negative [facility] Comment on above: Performed By: #### C T/NGNA #### [facility] [address] [place] [address] Dr. Lester Yen Neisseria gonorrhoeae, JOSE Negative Normal Negative [facility] Comment on above: Performed By: #### C T/NGNA #### [facility] [address] [place] [address] Dr. Lester Yen VAGINITIS/VAGINOSIS DNA PROB Davide 06-02-2022 Tigist species Negative Normal Negative [facility] Comment on above: Performed By: #### C MP, LIPA, SYLVIA #### [facility] [address] [place] [address] Dr. Lester Yen Gardnerella vaginalis Negative Normal Negative [facility] Comment on above: Performed By: #### C MP, LIPA, SYLVIA #### [facility] [address] [address] [address] Lester Yen Trichomonas vaginalis Negative Normal Negative [facility] Comment on above: Performed By: #### C MP, LIPA, SYLVIA #### [facility] [address] [place] [address] Dr. Lester Yen AMYLASEon 05-28-2022 Amylase [Catalytic activity/Vol] 48 U/L Normal 25-115 [facility] Comment on above: Performed By: #### C MP, ANJU, SYLVIA #### [facility] [address] [place] [address] Dr. Lester Yen CBC AUTO DIFFon 05-28-2022 BASO # 0.0 103/ul Normal 0.0-0.1 [facility] Comment on above: Performed By: #### C BC #### [facility] [address] [place] [address] Dr. Lester Yen Basophils/100 WBC (Bld) 0.5 % Normal 0.2-2.0 [facility] Comment on above: Performed By: #### C BC #### [facility] [address] [place] [address] Dr. Lester Yen EO # 0.3 103/ul Normal 0.0-0.7 [facility] Comment on above: Performed By: #### C BC #### [facility] [address] [place] [address] Dr. Lester Yen Eosinophils/100 WBC (Bld) 5.7 % Normal 0.9-7.0 [facility] Comment on above: Performed By: #### C BC #### [facility] [address] [place] [address] Dr. Lester Yen Erythrocyte distribution width (RBC) [Ratio] 12.6 % Normal 11.0-15.0 [facility] Comment on above: Performed By: #### C BC #### [facility] [address] [place] [address] Dr. Lester Yen Hematocrit (Bld) [Volume fraction] 39.5 % Normal 36.0-48.0 [facility] Comment on above: Performed By: #### C BC #### [facility] [address] [place] [address] Dr. Lester Yen Hemoglobin (Bld) [Mass/Vol] 13.2 g/dL Normal 12.0-16.0 [facility] Comment on above: Performed By: #### C BC #### [facility] [address] [address] [address] Lester Yen IG # 0.01 10e3/ul Normal 0.00-0.03 [facility] Comment on above: Performed By: #### C BC #### [facility] [address] [address] [address] Lester Yen IG % 0.2 % Normal 0.0-0.5 [facility] Comment on above: Performed By: #### C BC #### [facility] [address] [place] [address] Dr. Lester Yen LYMPH # 1.1 103/ul Critically low 1.2-3.8 [facility] Comment on above: Performed By: #### C BC #### [facility] [address] [place] [address] Dr. Lseter Yen Lymphocytes/100 WBC (Bld) 18.9 % Critically low 20.5-60.0 [facility] Comment on above: Performed By: #### C BC #### [facility] [address] [place] [address] Dr. Lester Yen MANUAL DIFF REQ NO Normal [facility] Comment on above: Performed By: #### C BC #### [facility] [address] [place] [address] Dr. Lester Yen MCH (RBC) [Entitic mass] 31.1 pg Normal 26.7-34.0 [facility] Comment on above: Performed By: #### C BC #### [facility] [address] [place] [address] Dr. Lester Yen MCHC (RBC) [Mass/Vol] 33.4 g/dL Normal 29.9-35.2 [facility] Comment on above: Performed By: #### C BC #### [facility] [address] [place] [address] Dr. Lester Yen MCV (RBC) [Entitic vol] 93.2 fL Normal 81.0-99.0 [facility] Comment on above: Performed By: #### C BC #### [facility] [address] [place] [address] Dr. Lester Yen MONO # 0.5 103/ul Normal 0.3-0.8 [facility] Comment on above: Performed By: #### C BC #### [facility] [address] [place] [address] Dr. Lester Yen Monocytes/100 WBC (Bld) 8.4 % Normal 1.7-12.0 [facility] Comment on above: Performed By: #### C BC #### [facility] [address] [place] [address] Dr. Lester Yen NEUT # 3.9 103/ul Normal 1.4-6.5 [facility] Comment on above: Performed By: #### C BC #### [facility] [address] [place] [address] Dr. Lester Yen Neutrophils/100 WBC (Bld) 66.3 % Normal 43.0-75.0 [facility] Comment on above: Performed By: #### C BC #### [facility] [address] [place] [address] Dr. Lester Yen Platelet mean volume (Bld) [Entitic vol] 9.8 fL Normal 9.5-13.5 [facility] Comment on above: Performed By: #### C BC #### [facility] [address] [place] [address] Dr. Lester Yen PLT 186 103/ul Normal 150-450 [facility] Comment on above: Performed By: #### C BC #### [facility] [address] [place] [address] Dr. Lester Yen RBC 4.24 106/ul Normal 4.20-5.40 [facility] Comment on above: Performed By: #### C BC #### [facility] [address] [place] [address] Dr. Lester Yen WBC 5.9 103/ul Normal 4.0-11.0 [facility] Comment on above: Performed By: #### C BC #### [facility] [address] [place] [address] ABD/PELV W CONon [...] TOR JIN Date: 2022-05-28 12:57 Normal [facility] URINE PROFILEon 2 Bilirubin Ql (U) Negative Normal NEGATIVE [facility] Comment on above: Performed By: #### E RUR PREGU #### [facility] [address] [address] [address] Lester Yen Clarity (U) CLEAR Normal CLEAR [facility] Comment on above: Performed By: #### E RUR, PREGU #### [facility] [address] [address] [address] Lester Yen Color (U) LT. YELLOW Normal YELLOW [facility] Comment on above: Performed By: #### E RUR, PREGU #### [facility] [address] [place] [address] Dr. Lester LEA A micrscopic examination will be performed if indicated. Normal [facility] Comment on above: Performed By: #### E RUR, PREGU #### [facility] [address] [place] [address] Dr. Lester Yen Glucose Ql (U) Negative Normal NEGATIVE [facility] Comment on above: Performed By: #### E RUR, PREGU #### [facility] [address] [place] [address] Dr. Lester Yen Hemoglobin Ql (U) Negative Normal NEGATIVE [facility] Comment on above: Performed By: #### E RUR, PREGU #### [facility] [address] [place] [address] Dr. Lester Yen Ketones Ql (U) Negative Normal NEGATIVE [facility] Comment on above: Performed By: #### E RUR, PREGU #### [facility] [address] [place] [address] Dr. Lester Yen LEUKOCYTES Negative Normal NEGATIVE [facility] Comment on above: Performed By: #### E RUR, PREGU #### [facility] [address] [place] [address] Dr. Lester Yen Nitrite Ql (U) Negative Normal NEGATIVE [facility] Comment on above: Performed By: #### E RUR, PREGU #### [facility] [address] [place] [address] Dr. Lester Yen pH (U) 6.0 [pH] Normal 5-9 [facility] Comment on above: Performed By: #### E RUR, PREGU #### [facility] [address] [place] [address] Dr. Lester Yen SPEC GRAVITY <=1.005 Abnormal 1.005-<=1.02 5 [facility] Comment on above: Performed By: #### E RUR, PREGU #### [facility] [address] [place] [address] Dr. Lester Yen UA PROTEIN Negative Normal NEGATIVE/ TRACE [facility] Comment on above: Performed By: #### E RUR, PREGU #### [facility] [address] [place] [address] Dr. Lester Yen UR MICRO IND NOT INDICATED Normal [facility] Comment on above: Performed By: #### E RUR, PREGU #### [facility] [address] [place] [address] Dr. Lester Yen Urobilinogen Qn (U) 0.2 {Olivier'U}/dL Normal 0.2 - 1. 0 [facility] Comment on above: Performed By: #### E RUR, PREGU #### [facility] [address] [place] [address] Dr. Lester Yen LIPASEon 05-28-2022 Lipase [Catalytic activity/Vol] 96.0 U/L Normal 73.0-393.0 [facility] Comment on above: Performed By: #### C MP LIPA, SYLVIA #### [facility] [address] [place] [address] Dr. Lester Yen URon 05-28-2022 , QUAL Negative Normal NEGATIVE [facility] Comment on above: Performed By: #### E RUR, PREGU #### [facility] [address] [place] [address] Dr. Lester Yen PROF 14(COMP METB)on 022 Albumin [Mass/Vol] 4.0 g/dL Normal 3.4-5.0 [facility] Comment on above: Performed By: #### C MP, LIPA, SYLVIA #### [facility] [address] [place] [address] Dr. Lester Yen Albumin/Globulin [Mass ratio] 1.4 {ratio} Normal [facility] Comment on above: Performed By: #### C MP, LIPA, SYLVIA #### [facility] [address] [place] [address] Dr. Lester Yen ALP [Catalytic activity/Vol] 56 U/L Normal 46-116 [facility] Comment on above: Performed By: #### C MP, LIPA, SYLVIA #### [facility] [address] [address] [address] Lester Yen ALT [Catalytic activity/Vol] 14 U/L Normal 14-59 [facility] Comment on above: Performed By: #### C MP, LIPA, SYLVIA #### [facility] [address] [address] [address] Lester Yen Anion gap [Moles/Vol] 13.3 mmol/L Normal [facility] Comment on above: Performed By: #### C MP, LIPA, SYLVIA #### [facility] [address] [address] [address] Lester Yen AST [Catalytic activity/Vol] 11 U/L Critically low 15-37 [facility] Comment on above: Performed By: #### C MP, LIPA, SYLVIA #### [facility] [address] [place] [address] Dr. Lester Yen Bilirubin [Mass/Vol] 0.5 mg/dL Normal 0.2-1.0 [facility] Comment on above: Performed By: #### C MP, LIPA, SYLVIA #### [facility] [address] [address] [address] Lester Yen Calcium [Mass/Vol] 8.9 mg/dL Normal 8.5-10.1 [facility] Comment on above: Performed By: #### C MP, LIPA, SYLVIA #### [facility] [address] [address] [address] Lester Yen Chloride [Moles/Vol] 105 mmol/L Normal 98-107 [facility] Comment on above: Performed By: #### C MP, LIPA, SYLVIA #### [facility] [address] [address] [address] Lester Yen CO2 [Moles/Vol] 24.4 mmol/L Normal 21.0-32.0 [facility] Comment on above: Performed By: #### C MP, LIPA, SYLVIA #### [facility] [address] [address] [address] Lester Yen Creatinine [Mass/Vol] 0.88 mg/dL Normal 0.55-1.02 [facility] Comment on above: Performed By: #### C MP LIPA, SYLVIA #### [facility] [address] [place] [address] Dr. Lester Yen EGFR-AF GUAMANIAN >60 Normal >=60 [facility] Comment on above: Performed By: #### C MP, LIPA, SYLVIA #### [facility] [address] [place] [address] Dr. Lester Yen EGFR-NON AF GUAMANIAN >60 Normal >=60 [facility] Comment on above: Performed By: #### C MP LIPA, SYLVIA #### [facility] [address] [place] [address] Dr. Lester Yen Globulin (S) [Mass/Vol] 2.8 g/dL Normal [facility] Comment on above: Performed By: #### C MP LIPA, SYLVIA #### [facility] [address] [place] [address] Dr. Lester Yen Glucose [Mass/Vol] 100 mg/dL Normal 74-106 [facility] Comment on above: Performed By: #### C ASHOK LIPA, SYLVIA #### [facility] [address] [place] [address] Dr. Lester Yen Potassium [Moles/Vol] 3.7 mmol/L Normal 3.5-5.1 [facility] Comment on above: Performed By: #### C MP LIPA, SYLVIA #### [facility] [address] [place] [address] Dr. Lester Yen Protein [Mass/Vol] 6.8 g/dL Normal 6.4-8.2 [facility] Comment on above: Performed By: #### C MP LIPA, SYLVIA #### [facility] [address] [place] [address] Dr. Lester Yen Sodium [Moles/Vol] 139 mmol/L Normal 136-145 [facility] Comment on above: Performed By: #### C MP, LIPA, SYLVIA #### [facility] [facility] [address] [place] [address] Dr. Lester Yen Urea nitrogen [Mass/Vol] 13.0 mg/dL Normal 7.0-18.0 [facility] Comment on above: Performed By: #### C ANJU PULIDO AMY #### [facility] [address] [address] [address] Lester Yen Urea nitrogen/Creatinine [Mass ratio] 14.8 mg/mg Normal [facility] Comment on above: Performed By: #### C ANJU PULIDO AMY #### [facility] [address] [address] [address] Lester Yen Half-Way Documentson 04-19-2021 Half-Way Documents [id number] .[id number]:127 Normal [facility] Half-Way Documentson 06-06-2020 Half-Way Documents Half-Way Nurse Visit 14 day Health Appraisal Date [...] forearm Date vial opened: 05/18/2020 Lot number: [id number] Expiration date: 01/24 PPD Comments: PPD Results [...] wish to attend AA Meetings? _ sure Half-Way Assessment 05/31/20 15:54:00 Half-Way Assessment Entered On: 05/31/2020 15:56 EDT Performed [...] Pressure Posi (more content not included)... Normal [facility] Half-Way Documentson 05-29-2020 Half-Way Documents [id number] 0#1.00CD:127 Normal [facility] Chlam/GC/Trich,NAAon 020 C. trachomatis rRNA JOSE+probe Ql (Unsp spec) Negative Invalid Interpretation Code Negative [facility] Comment on above: Performed By: #### 1 [id number] #### [facility] [address] [place] [address] N. gonorrhoeae rRNA JOSE+probe Ql (Unsp spec) Negative Invalid Interpretation Code Negative [facility] Comment on above: Performed By: #### 1 [id number] #### [facility] [address] [place] [address] T. vaginalis DNA JOSE+probe Ql (Unsp spec) Negative Invalid Interpretation Code Negative [facility] Comment on above: Result Comment: Perf ormed at: =G [facility] [address] [facility] [id number] MD Jama Valdivia Performed By: #### 1 [id number] #### [facility] [address] [place] [address] Coding Summary.on 05-15-2020 Coding Summary. CODING DATE: 05/15/[address] [facility] STATUS: Home (Routine DC) PAYOR: Medicaid EAPG [...] Revised Date Saved: 05/15/2020 10:37 am Normal [facility] Amylaseon 05-14-2020 Amylase [Catalytic activity/Vol] 58 U/L Normal 25-157 [facility] Comment on above: Performed By: #### 2 887337, 74547331, 6914896, 3849774, 3960203, 5034210, 0941403 ####[facility] [address] [place] [address] Auto Diffon 05-14-2020 Basophils/100 WBC (Bld) 0.5 % Normal 0.0-2.0 [facility] Comment on above: Order Comment: Order Added by Discern Expert. Performed By: #### 2 882487, 75392324, 8840924, 1485326, 2511754, 9023972, 8062090 ####[address] [place] [address] Basophils/Leukocytes Auto (Bld) [Pure # fraction] 0.0 E9/L Normal 0.0-0.2 [facility] Comment on above: Order Comment: Order Added by Lacy Expert. Performed By: #### 2 008780, 67909952, 8764515, 4922826, 5184070, 8432654, 9599226 ####[facility] [address] [place] [address] Eosinophils/100 WBC (Bld) 8.4 % High 0.0-8.0 [facility] Comment on above: Order Comment: Order Added by Lacy Expert. Performed By: #### 2 745818, 48982887, 7821084, 8332908, 2495672, 1392597, 3469339 ####[address] [address] Eosinophils/Leukocytes Auto (Bld) [Pure # fraction] 0.5 E9/L Normal 0.0-0.5 [facility] Comment on above: Order Comment: Order Added by Lacy Expert. Performed By: #### 2 361423, 03388371, 6441689, 2031660, 9890070, 9881382, 9956969 ####[facility] [address] [place] [address] Lymphocytes/100 WBC (Bld) 31.4 % Normal 14.0-50.0 [facility] Comment on above: Order Comment: Order Added by Discern Expert. Performed By: #### 2 405924, 54222190, 4164154, 3074850, 2465512, 4322190, 9193403 ####[address] [place] [address] Lymphocytes/Leukocytes Auto (Bld) [Pure # fraction] 1.8 E9/L Normal 1.0-4.0 [facility] Comment on above: Order Comment: Order Added by Discern Expert. Performed By: #### 2 889174, 63009937, 5167251, 3610349, 4912279, 3677782, 6878575 ####[address] [address] Monocytes/100 WBC (Bld) 8.2 % Normal 4.0-14.0 [facility] Comment on above: Order Comment: Order Added by Lacy Expert. Performed By: #### 2 954974, 93878485, 2872250, 1875264, 2495633, 8086582, 1294237 ####[address] [place] [address] Monocytes/Leukocytes Auto (Bld) [Pure # fraction] 0.5 E9/L Normal 0.2-1.0 [facility] Comment on above: Order Comment: Order Added by Discern Expert. Performed By: #### 2 933436, 50704110, 0880834, 5001648, 4962744, 2379354, 8372461 ####[address] [address] Neutrophils/100 WBC (Bld) 51.5 % Normal 36.0-75.0 [facility] Comment on above: Order Comment: Order Added by Lacy Expert. Performed By: #### 2 906170, 32203539, 7835300, 9443911, 8037689, 3277067, 2365029 ####[address] [place] [address] Neutrophils/Leukocytes Auto (Bld) [Pure # fraction] 2.9 E9/L Normal 2.0-7.5 [facility] Comment on above: Order Comment: Order Added by Discern Expert. Performed By: #### 2 387143, 77648879, 0931853, 9760123, 1445092, 1202791, 7157208 ####[facility] [address] [place] [address] BMPon 05-14-2020 Creatinine [Mass/Vol] 0.9 mg/dL Normal 0.5-1.3 [facility] Comment on above: Performed By: #### 2 582897, 13419079, 6684356, 9697038, 0890247, 7309312, 7250488 ####[facility] [address] [place] [address] Urea nitrogen [Mass/Vol] 14 mg/dL Normal 5-21 [facility] Comment on above: Performed By: #### 2 868017, 16224219, 5980184, 2829834, 3114806, 4624762, 8930438 ####[facility] [address] [place] [address] Urea nitrogen/Creatinine [Mass ratio] 16 No Units Normal 10-20 [facility] Comment on above: Performed By: #### 2 694200, 99255452, 6078676, 4536139, 2499766, 3854799, 0191913 ####[facility] [address] [place] [address] Anion gap [Moles/Vol] 12 mmol/L Normal 6-16 [facility] Comment on above: Performed By: #### 2 676752, 82743023, 1060377, 4154602, 0216731, 4579350, 1313764 ####[facility] [address] [place] [address] Calcium [Mass/Vol] 9.3 mg/dL Normal 8.9-11.1 [facility] Comment on above: Performed By: #### 2 660493, 02071897, 5987156, 2645667, 9916198, 9064741, 5820147 ####[facility] [address] [place] [address], [place] [address] Chloride [Moles/Vol] 103 mmol/L Normal 101-111 [facility] Comment on above: Performed By: #### 2 425646, 83251363, 6841532, 5311454, 6813028, 1867066, 9487773 ####[facility] [address] [place] [address] CO2 [Moles/Vol] 27 mmol/L Normal 21-31 [facility] Comment on above: Performed By: #### 2 489402, 71941832, 6002114, 5405267, 3565635, 5509377, 6242387 ####[facility] [address] [place] [address] Glucose [Mass/Vol] 89 mg/dL Normal 55-199 [facility] Comment on above: Result Comment: If t his glucose result represents a fasting glucose, interpretation should refer to the following reference range: 55-99 mg/dL Performed By: #### 2 121285, 60957639, 3986663, 7132030, 0676551, 8102150, 6916729 ####[facility] [address] [place] [address] Potassium [Moles/Vol] 3.8 mmol/L Normal 3.5-5.3 [facility] Comment on above: Performed By: #### 2 315583, 52813995, 5438750, 7735352, 0255500, 9404488, 8939590 ####[facility] [address] [place] [address] Sodium [Moles/Vol] 138 mmol/L Normal 135-145 [facility] Comment on above: Performed By: #### 2 400674, 76470678, 2187077, 3275666, 5421961, 9586114, 2179745 ####[facility] [address] [place] [address] CBC w/ Auto Diffon 0 Erythrocyte distribution width (RBC) [Ratio] 12.7 % Normal 10.9-14.2 [facility] Comment on above: Performed By: #### 2 963997, 49984757, 4558827, 4534870, 4816286, 0821431, 5040985 ####[facility] [address] [place] [address] Hematocrit (Bld) [Volume fraction] 41.7 % Normal 34.0-46.0 [facility] Comment on above: Performed By: #### 2 348847, 52508381, 5514290, 2520723, 4103543, 8222718, 3481728 ####[facility] [address] [place] [address] Hemoglobin (Bld) [Mass/Vol] 13.9 g/dL Normal 12.0-16.0 [facility] Comment on above: Performed By: #### 2 061002, 68464956, 0598440, 6903037, 4905252, 1358960, 9261940 ####[address] MCH (RBC) [Entitic mass] 30.8 pg Normal 27.0-34.0 [facility] Comment on above: Performed By: #### 2 154457, 01755905, 2842049, 9514877, 3339095, 9059889, 3946732 ####[address] [address] MCHC (RBC) [Mass/Vol] 33.3 g/dL Normal 31.4-36.0 [facility] Comment on above: Performed By: #### 2 634329, 20100478, 3964916, 2559832, 4869252, 8339937, 5245533 ####[address] [address] MCV (RBC) [Entitic vol] 92.5 fL Normal 80.0-100.0 [facility] Comment on above: Performed By: #### 2 273328, 96025363, 0683493, 2744496, 2120090, 3747947, 8029334 ####[address] [place] [address] Platelet mean volume (Bld) [Entitic vol] 8.2 fL Normal 6.4-10.8 [facility] Comment on above: Performed By: #### 2 244566, 05267683, 6182067, 4180248, 5382599, 7625636, 6116250 ####[facility] [address] [place] [address] Platelets (Bld) [#/Vol] 230.0 E9/L Normal 150.0-500.0 [facility] Comment on above: Performed By: #### 2 222181, 04171479, 2659461, 8124608, 8785376, 3124824, 6953820 ####[address] [place] [address] RBC (Bld) [#/Vol] 4.5 E12/L Normal 4.3-5.9 [facility] Comment on above: Performed By: #### 2 430109, 21969881, 5120050, 6359593, 8537880, 6914594, 1351074 ####[address] [place] [address] WBC corrected for nucl RBC Auto (Bld) [#/Vol] 5.7 E9/L Normal 4.0-11.0 [facility] Comment on above: Performed By: #### 2 718117, 93111450, 9039848, 5122298, 6577763, 2162591, 9445348 ####[address] [place] [address] Discharge Instructionson Discharge Instructions [id number] #1.00CD:127 Normal [facility] ED Clinical Summaryon 2019 ED Clinical Summary [address] [address] ED Clinical Summary Person Information Name: ABBYDIOGOMICKEYBREANA/[facility] Age: 29 Years : 1990 Sex: Female Language: Khmer PCP: Mica CARLTON MD Marital Status: Single Phone: [phone] Visit Id: Visit Reason: Abdominal pain; STOMACH [...] 05/14/2020 04:35:55 05/14/2020 04:35:55 05/14/2020 04:35:55 ADDRESS: [address] [place] [address] PHYS DOC NOTES: MEDICAL INFORMATION: Prescriptions Given: New Medications Printed Prescriptions levofloxacin (Levaquin 500 mg Tab) 1 Tablets By Mouth every day. Refills: 0. Medications to Continue with No Changes Other Medications escitalopram (Lexapro 10 mg Tab) 1 Tablets By Mouth every day. PATIENT EDUCATION INFORMATION: Instructions: Pelvic Pain, Female, Rebm-of-Qqjw Follow up: With: Address: When: Mica CARLTON [address] [place], [place] [address] [address] [address] Business (1) In 3 days 05/17/2020 Comments: Followup with your library technical assistant next week DIAGNOSIS: 1:Abdominal pain in female; Pelvic pain Normal [facility] ED Note-Nursingon 05-14-2020 ED Note-Nursing Dr. Renner aware of patient c/o generalized abd pain, rates at 7/10. Order received for [place], 2 tabs, one-time only. Normal [facility] ED Note-Nursing Dr. Renner at bedside for results review. Normal [facility] ED Note-Nursing Patient to u/s Normal [facility] ED Note-Nursing Dr. Renner at bedside for results update. Normal [facility] ED Note-Nursing Patient to xray. Normal [facility] ED Note-Nursing Dr. Renner at bedside for assessment. Normal [facility] ED Note-Physicianon 05-14-20 ED Note-Physician [...] infection and recommend she followup with her library technical assistant Assessment/Plan 1. Abdominal pain in female (R10.9: [...] 41.7 % (05/13/20 22:35:00) MCV: 92.5 fL (05/13/20:35:00) MCH: 30.8 pg (05/13/20:35:00) MCHC: 33.3 gm/dL (05/13/20 22:35:00) RDW: 12.7 % (05/13/20:35:00) Platelet: 230 E9/L (05/13/20 22:35:00) MPV: 8.2 fL (05/13/20 22:35:00) Neutro Auto: 51.5 % (05/13/20:35:00) Lymph Auto: 31.4 % (05/13/20 22:35:00) Lucas Auto: 8.2 % (05/13/20 22:35:00) Eos Auto: 8.4 % High (05/13/20 22:35:00) Basophil Auto: 0.5 % (05/13/20 22:35:00) Neutro Absolute: 2.9 E9/L (05/13/20 22:35:00) Lymph Absolute: 1.8 E9/L (05/13/20 22:35:00) Lucas Absolute: 0.5 E9/L (05/13/20 22:35:00) Eos Absolute: 0.5 E9/L (05/13/20 (more content not included)... Normal [facility] Comment on above: Result Comment: Elec tronically [...] Document Reviewed: 01/11/2013 ExitCare? Patient Information ?2015 [employer]. This information is not intended to replace advice given to you by your health care provider. Make sure you discuss any questions you have with your health care provider. Normal [facility] ED Patient Summaryon 020 ED Patient Summary [id number] Patient Discharge Instructions Person Information Name: BREANA PICKETT Age: 29 Years Arrival Date: 05/13/2020 21:43:46 Discharge Diagnosis: 1:Abdominal pain in female; Pelvic pain Primary Care Physician: Mica CARLTON MD Provider Information Primary Provider: Lucio Renner MD Advanced General Accountant:None The exam and treatment you received in the Emergency Department were for an urgent problem and are not intended as complete care. It is important that you follow up with a doctor, nurse practitioner, or physician?s assistant professor of geography for ongoing care. If your symptoms become worse or you do not improve as expected and you are unable to reach your usual health care provider, you should return to the Emergency Department. We are available 24 hours a day. BREANA PICKETT has been given the following list of patient education materials, prescriptions and follow-up instructions: Follow-up Instructions: With: Address: When: Mica BIANKA [address] [place], [place] [address] [phone] Business (1) In 3 days 05/17/2020 Comments: Followup with your library technical assistant next week In the event that this physician does not participate in your insurance network, please consult with your insurance company to find a nearby participating provider. Patient Education Materials: Pelvic Pain, Female, Zlqs-ta-Tcmo A MESSAGE TO ALL PATIENTS REGARDING OPIOIDS PRESCRIPTION OPIOIDS: WHAT YOU NEED TO KNOW Prescription opioids can be used to help relieve jxehobkr-kc-fgzcyd pain and are often prescribed following a [...] tell your (more content not included)... Normal [facility] Hep Func Panelon 05-14-2020 Bilirubin.indirect [Mass or moles/Vol] UTC Abnormal 0.1-0.9 [facility] Comment on above: Result Comment: Resu lt verified by Discern Rule. Performed result UTC (Unable to Calculate) was sent as an Alpha code due the inability to calculate a valid numeric value. Performed By: #### 2 860283, 28152783, 3125580, 3727446, 3462194, 0891363, 6149584 ####[facility] [address] [place] [address] Albumin [Mass/Vol] 4.2 g/dL Normal 3.3-5.0 [facility] Comment on above: Performed By: #### 2 399789, 13864056, 0888586, 3528269, 8599442, 2122207, 5369116 ####[facility] [address] [place] [address] Albumin/Globulin (S) [Mass conc ratio] 1.4 Normal 1.1-2.2 [facility] Comment on above: Performed By: #### 2 203981, 98439860, 1060587, 5523520, 3621342, 7128447, 7450745 ####[facility] [address] [place] [address] ALP [Catalytic activity/Vol] 62 Int._Unit/L Normal 21-98 [facility] Comment on above: Performed By: #### 2 312820, 63062817, 6630505, 2238782, 1775072, 0539552, 6212634 ####[address] [address] ALT No additional P-5'-P [Catalytic activity/Vol] 15 Int._Unit/L Normal 6-46 [facility] Comment on above: Performed By: #### 2 369708, 26282716, 2352803, 5816468, 9323372, 9230457, 5684665 ####[facility] [address] [place] [address] AST [Catalytic activity/Vol] 15 Int._Unit/L Normal 5-43 [facility] Comment on above: Performed By: #### 2 035759, 64955731, 0749670, 5294691, 2541841, 0310439, 7169553 ####[facility] [address] [place] [address] Bilirubin [Mass/Vol] 0.8 mg/dL Normal 0.0-1.1 [facility] Comment on above: Performed By: #### 2 985456, 77293569, 9223997, 5311014, 2515276, 6942801, 4345537 ####[facility] [address] [place] [address] Bilirubin.direct [Mass/Vol] mg/dL Normal 0.1-0.4 [facility] Comment on above: Performed By: #### 2 639807, 14214062, 1385486, 8143522, 2239493, 6401186, 8399561 ####[facility] [address] [place] [address] Globulin (S) [Mass/Vol] 2.9 g/dL Normal 1.4-4.0 [facility] Comment on above: Performed By: #### 2 639533, 40014417, 3422600, 3557764, 1177993, 2201473, 3400095 ####[address] [address] Protein [Mass/Vol] 7.1 g/dL Normal 6.0-7.8 [facility] Comment on above: Performed By: #### 2 967842, 96002614, 0387600, 9784645, 2474657, 8744913, 8461919 ####[facility] [address] [place] [address] Lipase Levelon 05-14-2020 Lipase [Catalytic activity/Vol] 36 U/L Normal 13-58 [facility] Comment on above: Performed By: #### 2 353783, 92123946, 0708476, 9910406, 6587371, 1059360, 3572786 ####[facility] [address] [place] [address] U BetaHcg Qualon 05-14-2020 HCG.beta subunit (U) [Moles/Vol] Negative Normal [facility] Comment on above: Performed By: #### 2 2681969, 96823805 #### [facility] [address] [place] [address] UA With Cult Reflexon 2019 Bilirubin Ql (U) Negative Normal Negative [facility] Comment on above: Performed By: #### 2 5404463, 48048880 #### [facility] [address] [place] [address] Clarity (U) SL CLOUDY Abnormal Clear [facility] Comment on above: Performed By: #### 2 2592395, 17033456 #### [facility] [address] [place] [address] Color (U) YELLOW Normal Yellow [facility] Comment on above: Performed By: #### 2 1330759, 31701076 #### [facility] [address] [place] [address] Epithelial cells.squamous LM.HPF (Urine sed) [#/Area] 3-4 Normal 0-2 [facility] Comment on above: Performed By: #### 2 8464925, 27470649 #### [facility] [address] [place] [address] Glucose Test strip (U) [Mass/Vol] Negative Normal Negative [facility] Comment on above: Performed By: #### 2 7261707, 07233783 #### [facility] [address] [place] [address] Hemoglobin Ql (U) Negative Normal Negative [facility] Comment on above: Performed By: #### 2 4037333, 52220306 #### [facility] [address] [place] [address] Ketones (U) [Mass/Vol] TRACE Abnormal Negative [facility] Comment on above: Performed By: #### 2 6233504, 02834551 #### [facility] [address] [place] [address] Pamplico.plasma/Pamplico. RBC (Bld) [Mass ratio] 0-3 Normal 0-3 [facility] Comment on above: Performed By: #### 2 6403289, 34498574 #### [facility] [address] [place] [address] Nitrite Ql (U) Negative Normal Negative [facility] Comment on above: Performed By: #### 2 9305983, 26993259 #### [facility] [address] [place] [address] pH (U) 7.0 [pH] Invalid Interpretation Code 5.0-9.0 [facility] Comment on above: Performed By: #### 2 1753584, 15871135 #### [facility] [address] [place] [address] Protein (U) [Mass/Vol] Negative Normal Negative [facility] Comment on above: Performed By: #### 2 0046456, 95802711 #### [facility] [address] [place] [address] Specific gravity (U) [Rel density] 1.020 Invalid Interpretation Code 1.005-1.030 [facility] Comment on above: Performed By: #### 2 0302995, 02187976 #### [facility] [address] [place] [address] UA Spec Desc Clean Catch Normal [facility] Comment on above: Performed By: #### 2 6009875, 56402269 #### [facility] [address] [place] [address] Urobilinogen Qn (U) 0.2 {Olivier'U}/dL Normal 0.0-1.0 [facility] Comment on above: Performed By: #### 2 9423574, 21053834 #### [facility] [address] [place] [address] WBC Auto Ql (U) Negative Normal Negative [facility] Comment on above: Performed By: #### 2 6759952, 45269895 #### [facility] [address] [place] [address] WBC LM.HPF (Urine sed) [#/Area] 0-5 Normal 0-5 [facility] Comment on above: Performed By: #### 2 6871767, 19168413 #### [facility] [address] [place], [place] [address] Pelvis Non-OB Completeon 05-14-2020 US Pelvis Non-OB [...] TUCKER Technical Comments Transabdominal Ultrasound Performed Normal [facility] XR Abdomen Series w/ Chest [...] DO Transcribed by: GABRIELE Technologist: TERESA Hutson [facility] eGFRon 05-14-2020 GFR/1.73 sq M.predicted among blacks MDRD (S/P/Bld) [Vol rate/Area] mL/min/{1.73_m2} Normal >=59 [facility] Comment on above: Order Comment: Order added by Discern Expert. Result Comment: eGFR is race adjusted. AA=. Performed By: #### 2 950770, 84681236, 9533786, 6685344, 5392789, 9511372, 4269307 ####[facility] [address] [place] [address] GFR/1.73 sq M.predicted among non-blacks MDRD (S/P/Bld) [Vol rate/Area] mL/min/{1.73_m2} Normal >=59 [facility] Comment on above: Order Comment: Order added by Discern Expert. Result Comment: Rf Technician pérez kidney disease could be indicated at eGFR's of less than 60 mL/min/1.73m2. Kidney failure is indicated at less than 15 mL/min/1.73m2. Performed By: #### 2 788015, 83913201, 4331806, 6485580, 6000347, 0711726, 7386232 ####[facility] [address] [place] [address] Consent for Treatmenton Consent for Treatment [id number] 00 [id number] #1.00CD:127 Normal [facility] Vital Signs Date Time Vital Sign Value Performing Clinician Facility 04-19-2025 14:23-0400 Body mass index (BMI) [Ratio] 29.54 kg/m2 [employer] Work Phone: [facility] 04-19-2025 14:23-040 Body weight 75.64 kg Dominic Mir DO Work Phone: [facility] 04-19-2025 14:23-0400 Diastolic blood pressure 58 mm[Hg] Dominic Mir DO Work Phone: [facility] 04-19-2025 14:23-0400 Systolic blood pressure 102 mm[Hg] Dominic Mir DO Work Phone: [facility] 04-06-2025 15:27-0400 Body mass index (BMI) [Ratio] 29.05 kg/m2 Sylvia Heather PA Work Phone: [facility] 04-06-2025 15:27-0400 Body weight 74.39 kg Sylvia Heather PA Work Phone: [facility] 04-06-2025 15:27-0400 Diastolic blood pressure 74 mm[Hg] Sylvia Larsen PA Work Phone: [facility] 04-06-2025 15:27-0400 Systolic blood pressure 120 mm[Hg] Sylvia Heather PA Work Phone: [facility] 03-23-2025 14:44-0400 Body mass index (BMI) [Ratio] 28.7 kg/m2 Dominic Mir DO Work Phone: [facility] 03-23-2025 14:44-0400 Body weight 73.48 kg Dominic Mir DO Work Phone: [facility] 03-23-2025 14:44-0400 Diastolic blood pressure 68 mm[Hg] Dominic Mir DO Work Phone: [facility] 03-23-2025 14:44-0400 Systolic blood pressure 112 mm[Hg] Dominic Mir DO Work Phone: [facility] 03-09-2025 14:55-0400 Body mass index (BMI) [Ratio] 28.21 kg/m2 Sylvia Heather PA Work Phone: [facility] 03-09-2025 14:55-0400 Body weight 72.23 kg Sylvia Larsen PA Work Phone: [facility] 03-09-2025 14:55-0400 Diastolic blood pressure 60 mm[Hg] Sylvia HEADLEY Work Phone: [facility] 03-09-2025 14:55-0400 Systolic blood pressure 98 mm[Hg] Sylvia HEADLEY Work Phone: [facility] 02-23-2025 15:23-0400 Body mass index (BMI) [Ratio] 28.03 kg/m2 Dominic Mir DO Work Phone: [facility] 02-23-2025 15:23-0400 Body weight 71.78 kg Dominic Mir DO Work Phone: [facility] 02-23-2025 15:23-0400 Diastolic blood pressure 60 mm[Hg] Dominic Mir DO Work Phone: [facility] 02-23-2025 15:23-0400 Systolic blood pressure 100 mm[Hg] Dominic Mir DO Work Phone: [facility] 02-10-2025 10:44-0400 Diastolic blood pressure 54 mm[Hg] PHYSICIAN NO [facility] 02-10-2025 10:44-0400 Heart rate 53 /min PHYSICIAN NO [facility] 02-10-2025 10:44-0400 Respiratory rate 18 /min PHYSICIAN NO [facility] 02-10-2025 10:44-0400 SaO2% (BldA) [Mass fraction] 100 % PHYSICIAN NO [facility] 02-10-2025 10:44-0400 Systolic blood pressure 95 mm[Hg] PHYSICIAN NO [facility] 02-10-2025 08:40-0400 Body height 162.56 cm PHYSICIAN NO [facility] 02-10-2025 08:40-0400 Body weight 69.45 kg PHYSICIAN NO [facility] 02-10-2025 08:35-0400 Body temperature 98.2 [degF] PHYSICIAN NO [facility] 01-31-2025 15:23-0400 Body mass index (BMI) [Ratio] 28.48 kg/m2 Hector Power HEAT TRANSFER TECHNICIAN Work Phone: [facility] 01-31-2025 15:23-0400 Body weight 72.94 kg Hector Steve HEAT TRANSFER TECHNICIAN Work Phone: [facility] 01-31-2025 15:23-0400 Diastolic blood pressure 58 mm[Hg] Hector Oliverosly HEAT TRANSFER TECHNICIAN Work Phone: [facility] 01-31-2025 15:23-0400 Systolic blood pressure 100 mm[Hg] Hector Steve HEAT TRANSFER TECHNICIAN Work Phone: [facility] 12-28-2024 15:01-0400 Body mass index (BMI) [Ratio] 25.69 kg/m2 Dominic Mir DO Work Phone: [facility] 12-28-2024 15:01-0400 Body weight 65.77 kg Dominic Mir DO Work Phone: [facility] 12-28-2024 15:01-0400 Diastolic blood pressure 56 mm[Hg] Dominic Mir DO Work Phone: [facility] 12-28-2024 15:01-0400 Systolic blood pressure 96 mm[Hg] Dominic Mir DO Work Phone: [facility] 11-30-2024 15:04-0500 Body mass index (BMI) [Ratio] 24.62 kg/m2 Sylvia HEADLEY Work Phone: [facility] 11-30-2024 15:04-0500 Body weight 63.05 kg Sylvia HEADLEY Work Phone: [facility] 11-30-2024 15:04-0500 Diastolic blood pressure 62 mm[Hg] Sylvia HEADLEY Work Phone: [facility] 11-30-2024 15:04-0500 Systolic blood pressure 100 mm[Hg] Sylvia Romero PA Work Phone: [facility] 11-02-2024 10:59-0500 Body mass index (BMI) [Ratio] 23.91 kg/m2 Dominic Mir DO Work Phone: [facility] 11-02-2024 10:59-0500 Body weight 61.24 kg Dominic Mir DO Work Phone: [facility] 11-02-2024 10:59-0500 Diastolic blood pressure 68 mm[Hg] Dominic Mir DO Work Phone: [facility] 11-02-2024 10:59-0500 Systolic blood pressure 116 mm[Hg] Dominic Mir DO Work Phone: [facility] 10-26-2024 10:04-0500 Body temperature 98.5 [degF] PHYSICIAN NO [facility] 10-26-2024 10:04-0500 Diastolic blood pressure 64 mm[Hg] PHYSICIAN NO [facility] 10-26-2024 10:04-0500 Heart rate 60 /min PHYSICIAN NO [facility] 10-26-2024 10:04-0500 Respiratory rate 18 /min PHYSICIAN NO [facility] 10-26-2024 10:04-0500 SaO2% (BldA) [Mass fraction] 100 % PHYSICIAN NO [facility] 10-26-2024 10:04-0500 Systolic blood pressure 111 mm[Hg] PHYSICIAN NO [facility] 10-26-2024 10:02-0500 Body height 160.02 cm PHYSICIAN NO [facility] 10-26-2024 10:02-0500 Body weight 58.5 kg PHYSICIAN NO [facility] 10-01-2024 11:38-0500 Body mass index (BMI) [Ratio] 22.11 kg/m2 Noms Nurse [facility] 10-01-2024 11:38-0500 Body weight 56.61 kg Noms Nurse [facility] 10-01-2024 11:38-0500 Diastolic blood pressure 70 mm[Hg] Noms Nurse [facility] 10-01-2024 11:38-0500 Systolic blood pressure 120 mm[Hg] Noms Nurse [facility] 07-19-2024 13:26-0400 Body mass index (BMI) [Ratio] 22.5 kg/m2 Dominic Mir DO Work Phone: [facility] 07-19-2024 13:26-0400 Body weight 57.61 kg Dominic Mir DO Work Phone: [facility] 07-19-2024 13:26-0400 Diastolic blood pressure 60 mm[Hg] Dominic Mir DO Work Phone: [facility] 07-19-2024 13:26-0400 Systolic blood pressure 110 mm[Hg] Dominic Mir DO Work Phone: [facility] 06-29-2024 14:00-0400 Body mass index (BMI) [Ratio] 20.73 kg/m2 Dominic Mir DO Work Phone: [facility] 06-29-2024 14:00-0400 Body weight 53.07 kg Dominic Mir DO Work Phone: [facility] 06-29-2024 14:00-0400 Diastolic blood pressure 66 mm[Hg] Dominic Mir DO Work Phone: [facility] 06-29-2024 14:00-0400 Systolic blood pressure 108 mm[Hg] Dominic Mir DO Work Phone: [facility] 06-17-2024 14:12-0400 Body height 160.02 cm PHYSICIAN NO [facility] 06-17-2024 14:12-0400 Body temperature 98.5 [degF] PHYSICIAN NO [facility] 06-17-2024 14:12-0400 Body weight 52.4 kg PHYSICIAN NO [facility] 06-17-2024 14:12-0400 Diastolic blood pressure 52 mm[Hg] PHYSICIAN NO [facility] 06-17-2024 14:12-0400 Heart rate 72 /min PHYSICIAN NO [facility] 06-17-2024 14:12-0400 Respiratory rate 20 /min PHYSICIAN NO [facility] 06-17-2024 14:12-0400 SaO2% (BldA) [Mass fraction] 99 % PHYSICIAN NO [facility] 06-17-2024 14:12-0400 Systolic blood pressure 109 mm[Hg] PHYSICIAN KARLY GAN [facility] 04-07-2023 14:45-0400 Body height 160.02 cm Dutch Mendez Other [employer] Other 04-07-2023 14:45-0400 Body mass index (BMI) [Ratio] 21.25 kg/m2 Dutch Mendez Other [employer] Other 04-07-2023 14:45-0400 Body temperature 98 [degF] Dutch Mendez Other [employer] Other 04-07-2023 14:45-0400 Body weight 54.43 kg Dutch Mendez Other [employer] Other 04-07-2023 14:45-0400 Diastolic blood pressure 62 mm[Hg] Dutch Mendez Other [employer] Other 04-07-2023 14:45-0400 Respiratory rate 18 /min Dutch Mendez Other [employer] Other 04-07-2023 14:45-0400 SaO2% (BldA) [Mass fraction] 97 % Dutch Mendez Other [employer] Other 04-07-2023 14:45-0400 Systolic blood pressure 99 mm[Hg] Dutch Vanessa Other [employer] Other 01-03-2023 18:30-0400 Diastolic blood pressure 53 mm[Hg] CAIT-Lauren Garcia Work Phone: [facility] 01-03-2023 18:30-0400 Heart rate 51 /min HEAT TRANSFER TECHNICIAN-Lauren Garcia Work Phone: [facility] 01-03-2023 18:30-0400 Respiratory rate 16 /min HEAT TRANSFER TECHNICIAN-C Naomy Luby Work Phone: [phone](803)[phone] [place] [address] 01-03-2023 18:30-0400 SaO2% (BldA) [Mass fraction] 100 % HEAT TRANSFER TECHNICIAN-C Naomy Luby Work Phone: 9(051)238-073030 [place] [address] 01-03-2023 18:30-0400 Systolic blood pressure 96 mm[Hg] HEAT TRANSFER TECHNICIAN-C Naomy Luby Work Phone: 9(555)[phone] [address] 01-03-2023 14:50-0400 Body height 160.02 cm HEAT TRANSFER TECHNICIAN-C Naomy Luby Work Phone: 0(097)940-360883 [place] [address] 01-03-2023 14:50-0400 Body temperature 98.1 [degF] HEAT TRANSFER TECHNICIAN-C Naomy Luby Work Phone: 8(722)[phone] [place] [address] 01-03-2023 14:50-0400 Body weight 58.65 kg HEAT TRANSFER TECHNICIAN-C Naomy Luby Work Phone: 8(572)578-246230 [place] [address] 08-02-2022 20:04-0400 Diastolic blood pressure 51 mm[Hg] HEAT TRANSFER TECHNICIAN-C Naomy Luby Work Phone: 6(568)285-683230 [place] [address] 08-02-2022 20:04-0400 Heart rate 81 /min HEAT TRANSFER TECHNICIAN-C Naomy Luby Work Phone: 5(333)182-944030 [place] [address] 08-02-2022 20:04-0400 Respiratory rate 16 /min HEAT TRANSFER TECHNICIAN-C Naomy Luby Work Phone: 9(932)[phone] [place] [address] 08-02-2022 20:04-0400 SaO2% (BldA) [Mass fraction] 100 % HEAT TRANSFER TECHNICIAN-C Naomy Luby Work Phone: 2(424)250-165430 [place] [address] 08-02-2022 20:04-0400 Systolic blood pressure 104 mm[Hg] HEAT TRANSFER TECHNICIAN-C Naomy Luby Work Phone: 6(707)[phone] [place] [address] 08-02-2022 17:33-0400 Body height 160.02 cm HEAT TRANSFER TECHNICIAN-C Naomy Luby Work Phone: 9(922)[phone] [place] [address] 08-02-2022 17:33-0400 Body temperature 98.8 [degF] HEAT TRANSFER TECHNICIAN-C Naomy Radha Work Phone: [facility] 08-02-2022 17:33-0400 Body weight 59.4 kg HEAT TRANSFER TECHNICIAN-C Naomy Garcia Work Phone: [facility] Encounters Encounter Date Encounter Type Care Provider Facility Start: 04-21-2025 End: 04-21-2025 Clinisync Result Encounter Sylvia HEADLEY Work Phone: [facility] Unsolicited Start: 04-21-2025 End: 04-21-2025 Clinisync Result Encounter Sylvia HEADLEY Work Phone: [facility] Unsolicited Start: 04-19-2025 End: 04-19-2025 Office outpatient visit 15 minutes Dominic Mir DO Work Phone: [facility] Comment on above: Third trimester preg freddie ([facility]); Mood changes Start: 04-19-2025 End: 04-19-2025 ambulatory DOMINIC MIR Not Available Start: 04-19-2025 End: 04-19-2025 Bamboo flowsheet Dominic [...] on above: size inconsist ent with dates ([facility]); 34 weeks gestation of ([facility]); Third trimester ([facility]); Excessive growth affecting management of in third trimester, single or unspecified fetus ([facility]) Start: 04-06-2025 End: 04-06-2025 ambulatory SYLVIA ROMERO [...] Comment on above: Third trimester preg freddie ([facility]); 32 weeks gestation of ([facility]); size inconsistent with dates ([facility]) Start: 03-23-2025 End: 03-23-2025 ambulatory DOMINIC MIR [...] End: 02-17-2025 Clinisync Result Encounter Hector Steve HEAT TRANSFER TECHNICIAN Work Phone: [facility] External Department Unsolicited Start: 02-17-2025 End: 02-17-2025 Clinisync Result Encounter Hector Steve HEAT TRANSFER TECHNICIAN Work Phone: [facility] External Department Unsolicited Start: 02-10-2025 End: 02-10-2025 Emergency department patient visit PHYSICIAN [facility] Work Phone: Start: 01-31-2025 End: 01-31-2025 ambulatory HECTOR POWER Not Available Start: 01-31-2025 End: 01-31-2025 Office outpatient visit 15 minutes Hector Steve NP Work Phone: [facility] Comment on above: 25 weeks gestation o f ; Second trimester ; Encounter for follow-up ultrasound of anatomy; Diabetes mellitus screening Start: 01-31-2025 End: 01-31-2025 Bamboo flowsheet Hector Steve HEAT TRANSFER TECHNICIAN Work Phone: [facility] Start: 01-31-2025 End: 01-31-2025 Bamboo flowsheet Hector Steve HEAT TRANSFER TECHNICIAN Work Phone: [facility] Start: 12-28-2024 [...] visit 15 minutes Sylvia HEADLEY Work Phone: [facility] Comment on above: 16 weeks gestation o f ; Second trimester ; Well woman exam with routine gynecological exam; STD exposure; Vaginal discharge; Screening, , for anatomic survey Start: 11-30-2024 End: 11-30-2024 Patient encounter procedure Sylvia HEADLEY Work Phone: [facility] Start: 11-30-2024 End: 11-30-2024 ambulatory SYLVIA ROMERO Not Available Start: 11-30-2024 End: 11-30-2024 Bamboo flowsheet Sylvia HEADLEY Work Phone: [facility] Start: 11-30-2024 End: 12-06-2024 Bamboo flowsheet Sylvia HEADLEY Work Phone: [facility] Start: 11-30-2024 End: 12-06-2024 Clinisync Result Encounter Sylvia HEADLEY Work Phone: [facility] External Department Unsolicited Start: 11-02-2024 End: [...] 10-26-2024 Emergency department patient visit PHYSICIAN KARLY [facility] Work Phone: Start: 10-19-2024 End: 10-19-2024 [...] Start: 06-29-2024 End: 06-29-2024 Bamboo flowsheet Dominic Imr DO Work Phone: [facility] Start: 06-29-2024 End: 06-29-2024 Office outpatient visit 15 minutes Dominic Mir DO Work Phone: [facility] Comment on above: Pelvic pain in femal e Start: 06-29-2024 End: 06-29-2024 ambulatory DOMINIC MIR Not Available Start: 06-17-2024 End: 06-17-2024 Emergency department patient visit PHYSICIAN KARLY GAN [facility] Work Phone: Start: 04-24-2024 End: 04-24-2024 Patient encounter procedure HEAT TRANSFER TECHNICIAN-C Naomy Garcia Work Phone: [facility] [place] Work Phone: Start: 04-24-2024 End: 04-24-2024 ambulatory HEAT TRANSFER TECHNICIAN-C Naomy Garcia Work Phone: [facility] Work Phone: Start: 02-09-2024 End: 02-09-2024 ambulatory HEAT TRANSFER TECHNICIAN-C Naomy Garcia Work Phone: [facility] Work Phone: Start: 02-09-2024 End: 02-09-2024 Patient encounter procedure HEAT TRANSFER TECHNICIAN-C Naomy Garcia Work Phone: [facility] [place] Work Phone: Start: 04-07-2023 End: 04-07-2023 ambulatory Dutch Mendez Other [employer] Other Start: 04-07-2023 Office outpatient ne w 20 minutes Dutch Mendez [facility] Start: 03-28-2023 End: 03-28-2023 ambulatory HEAT TRANSFER TECHNICIAN-C Naomy Garcia Work Phone: [facility] Work Phone: Start: 03-28-2023 End: 03-28-2023 Patient encounter procedure HEAT TRANSFER TECHNICIAN-C Naomy Garcia Work Phone: [facility] [place] Work Phone: Start: 01-17-2023 End: 01-17-[address] DOMINIC HESTER . Facility:[facility] Start: 01-17-2023 End: 01-18-[address] DOMINIC HESTER . Facility:[facility] Start: 01-03-2023 End: 01-04-[address] DOCTOR PATEL Facility:[facility] Start: 01-03-2023 End: 01-03-2023 Emergency department patient visit HEAT TRANSFER TECHNICIAN-Lauren Garcia Work Phone: [facility]Emergency Room Work Phone: Start: 12-26-2022 End: 12-27-[address] DOMINIC HETSER . Facility:[facility] Start: 12-25-2022 End: 12-26-[address] DOMINIC HESTER . Facility:[facility] Start: 08-02-2022 End: 08-02-2022 Emergency department patient visit HEAT TRANSFER TECHNICIAN-C Naomy Garcia Work Phone: [facility] Start: 07-31-2022 Encounter for other preprocedural examination DR DOMINIC HESTER . [facility] Start: 07-29-2022 End: 07-30-2022 Encounter for other preprocedural examination DR DOMINIC HESTER . Facility:[facility] Start: 07-29-2022 End: 07-30-[address] DOMINIC HESTER . Facility:[facility] Start: 07-16-2022 End: 07-17-[address] DOMINIC HESTER . Facility:[facility] Start: 06-18-2022 End: 06-18-2022 Patient encounter procedure HEAT TRANSFER TECHNICIAN-C Naomy Garcia Work Phone: [facility] [place] Start: 06-01-[address] DOMINIC HESTER . Facili ty:[facility] Start: 05-30-2022 End: 05-30-[address] DOMINIC HESTER . Facility:[facility] Start: 05-28-2022 End: 05-28-2022 ambulatory ROGELIO HERNANDEZ . Facility: Procedures Date Procedure Procedure Detail Performing Clinician Start: 04-21-2025 US OB BPP W NON-STRESS Sylvia HEADLEY Work Phone: Start: 04-13-2025 US OB BPP W NON-STRESS [...] ALL CBC WITH AUTO DIFF Hector Steve HEAT TRANSFER TECHNICIAN Work Phone: Start: 01-31-2025 Urnls dip stick/tabl et rgnt non-auto w/o micrscp Hector Power HEAT TRANSFER TECHNICIAN Work Phone: Start: 12-28-2024 Urnls dip stick/tabl [...] DO Work Phone: Start: 02-09-2024 Pelvic echography HEAT TRANSFER TECHNICIAN-Lauren Garcia Work Phone: Start: 02-09-2024 Transvaginal echography HEAT TRANSFER TECHNICIAN-Lauren Garcia Work Phone: Start: 05-30-2023 Microscopic observat ion [Identifier] in Cervix by Cyto stain Dominic Hester DO Work Phone: Start: 01-03-2023 Diagnostic ultrasoun d of gravid uterus HEAT TRANSFER TECHNICIAN-Lauren Garcia Work Phone: Start: 01-03-2023 Ultrasonography of r ight kidney HEAT TRANSFER TECHNICIAN-Lauren Garcia Work Phone: Start: 01-03-2023 Transvaginal obstetr ic ultrasonography HEAT TRANSFER TECHNICIAN-Lauren Garcia Work Phone: Plan of Treatment Date Care Activity Detail Author Start: 05-30-2028 Screening for malign ant neoplasm of cervix [facility] Start: 11-30-2025 Screening for malign ant neoplasm of cervix [facility] Start: 06-06-2025 Influenza vaccination [facility] Start: 04-26-2025 End: 04-26-2025 Patient encounter procedure 04/26/2025 11:30 AM EDT Routine [facility] [address] [place] [address] Dominic Hester, DO [address] [place] [address] [place] [address] [facility] Start: 04-19-2025 End: 04-19-2025 Patient encounter procedure [facility] Comment on above: Arrived Start: 04-19-2025 End: 04-19-2026 CULTURE, GROUP B STREP WITH SUSCEPTIBLITY CULTURE, GROUP B STREP WITH SUSCEPTIBLITY Lab Routine Third trimester ([facility]) Expected: 04/19/2025, Expires: 04/19/2026 [facility] Work Phone: Comment on above: Expected: 04/19/2025 , Expires: 04/19/2026 Start: 04-06-2025 End: 04-06-2025 Patient encounter procedure 04/06/2025 2:50 PM EDT Routine [facility] [address] [place] [address] Sylvia Romero PA [address] [place] [address] [facility] Start: 03-23-2025 End: 03-23-2025 Patient encounter procedure [facility] Comment on above: Arrived Start: 03-23-2025 End: 07-23-2025 US for US OB follow up transabdominal approach Imaging Routine size inconsistent with dates ([facility]) Expected: 03/23/2025, Expires: 07/23/2025 [facility] Work Phone: Comment on above: Expected: 03/23/2025 , Expires: 07/23/2025 Start: 03-09-2025 End: 03-09-2025 Patient encounter procedure [facility] Comment on above: Arrived Start: 02-23-2025 End: 02-23-2025 Patient encounter procedure [facility] Comment on above: Arrived Start: 02-10-2025 [facility] Start: 02-03-2025 End: 02-03-2025 Professional / ancillary services management 02/03/2025 2:30 PM EDT Ancillary Procedure [facility] [address] [place] [id number] [facility] Start: 01-31-2025 End: 01-31-2026 CBC panel - Blood by Automated count CBC Lab Routine Diabetes mellitus screening Expected: 01/31/2025 (Approximate), Expires: 01/31/2026 [facility] Comment on above: Expected: 01/31/2025 (Approximate), Expires: 01/31/2026 Start: 01-31-2025 End: 01-31-2026 Measurement of glucose 1 hour after glucose challenge for glucose tolerance test Glucose tolerance, 1 hour Lab Routine Diabetes mellitus screening Expected: 01/31/2025 (Approximate), Expires: 01/31/2026 [facility] Comment on above: Expected: 01/31/2025 (Approximate), Expires: 01/31/2026 Start: 01-31-2025 End: 05-02-2025 US for US OB limited 1+ fetuses Imaging Routine Encounter for follow-up ultrasound of anatomy Expected: 01/31/2025, Expires: 05/02/2025 [facility] Work Phone: Comment on above: Expected: 01/31/2025 , Expires: 05/02/2025 Start: 01-25-2025 End: 01-25-2025 Patient encounter procedure 01/25/2025 2:40 PM EDT Routine [facility] [address] [place] [id number] Sylvia Romero PA [address] [place], [place] [id number] [facility] Start: 12-28-2024 End: 12-28-2024 Patient encounter procedure 12/28/2024 2:40 PM EDT Routine [facility] [address] [place] [id number] Dominic Hester, [address] [place] [address] [facility] Start: 12-28-2024 End: 12-28-2024 Professional / ancillary services management 12/28/2024 1:30 PM EDT Ancillary Procedure [facility] [address] [place] [address] [facility] Start: 12-20-2024 End: 12-20-2024 Patient encounter procedure 12/20/2024 2:10 PM EDT Office Visit [facility] [address] [place] [address] Dominic Hester DO [address] [place] [address] [facility] Start: 11-30-2024 End: 11-30-2024 Patient encounter procedure 11/30/2024 2:30 PM EST Routine [facility] [address] [place] [address] Sylvia Romero PA [address] [place] [address] Arrived [facility] Comment on above: [...] AM EST Routine [facility] [address] [place] [phone] Dominic Hester DO [address] [place] [address] [facility] Start: 10-01-2024 End: 10-01-2025 ABO/Rh ABO/Rh Lab Routine Missed menses , unspecified gestational age Expected: 10/01/2024 (Approximate), Expires: 10/01/2025 [facility] Comment on above: Expected: 10/01/2024 (Approximate), Expires: 10/01/2025 Start: 10-01-2024 End: 10-01-2025 Blood type and Indirect antibody screen panel - Blood Type and screen Lab Routine Missed menses , unspecified gestational age Expected: 10/01/2024 (Approximate), Expires: 10/01/2025 [facility] Work Phone: Comment on above: Expected: 10/01/2024 (Approximate), Expires: 10/01/2025 Start: 10-01-2024 End: 10-01-2025 Drugs of abuse panel - Urine by Screen method Rapid drug screen, urine Lab Routine , unspecified gestational age Encounter for supervision of normal first in first trimester Expected: 10/01/2024 (Approximate), Expires: 10/01/2025 [facility] Comment on above: Expected: 10/01/2024 (Approximate), Expires: 10/01/2025 Start: 07-19-2024 End: 07-19-2024 Patient encounter procedure 07/19/2024 1:00 PM EDT Office Visit [facility] [address] [place] [place] [address] Dominic Hester, DO [address] [place] [address] [facility] Start: 06-29-2024 End: 06-29-2025 SURESWAB(R) ADVANCED VAGINITIS PLUS, TMA SURESWAB(R) ADVANCED VAGINITIS PLUS, TMA Pathology and Cytology Routine Pelvic pain in female Expected: 06/29/2024 (Approximate), Expires: 06/29/2025 [facility] Work Phone: Comment on above: Expected: 06/29/2024 (Approximate), Expires: 06/29/2025 Start: 06-29-2024 End: 06-29-2025 US for US PELVIS-TRANSVAG IF INDICATED Imaging Routine Pelvic pain in female Expected: 06/29/2024 (Approximate), Expires: 06/29/2025 [facility] Comment on above: Expected: 06/29/2024 (Approximate), Expires: 06/29/2025 Start: 06-29-2024 End: 06-29-2024 Patient encounter procedure 06/29/2024 1:40 PM EDT Office Visit [facility] [address] [place] [address] Dominic Hester, DO [address] [place], [place] [id number] Arrived [facility] Comment on above: Arrived Start: 06-06-2024 Influenza vaccination Influenza Vacc ine (#1) [facility] [facility] Start: 03-28-2023 [facility] Start: 01-03-2023 [facility] Start: 06-18-2022 [facility] Work Phone: Bacteria identified in Blood by Culture Blood Culture [facility] Bacteria identified in Urine by Culture Urine culture Microbiology Routine Missed menses Ordered: 10/01/2024 [facility] Comment on above: Ordered: 10/01/2024 CBC W Auto Different ial panel - Blood CBC and differential Lab Routine Missed menses , unspecified gestational age Ordered: 10/01/2024 [facility] Comment on above: Ordered: 10/01/2024 CHLAMYDIA TRACHOMATI S (GENITO/STI) CHLAMYDIA TRACHOMATIS (GENITO/STI) Lab Routine Pelvic pain in female Ordered: 06/29/2024 [facility] Comment on above: Ordered: 06/29/2024 CHLAMYDIA TRACHOMATI S (GENITO/STI) CHLAMYDIA TRACHOMATIS (GENITO/STI) Lab Routine STD exposure Vaginal discharge Ordered: 11/30/2024 [facility] Comment on above: Ordered: 11/30/2024 Cytology Cervical or vaginal smear or scraping study Pap Smear Pathology and Cytology Routine Well woman exam with routine gynecological exam Ordered: 11/30/2024 [facility] Work Phone: Comment on above: Ordered: 11/30/2024 Glucose measurement estimated from glycated hemoglobin [facility] Hemoglobin A1c/Hemoglobin.total in Blood Hemoglobin A1c Lab Routine Missed menses , unspecified gestational age Ordered: 10/01/2024 [facility] Comment on above: Ordered: 10/01/2024 Hepatitis A virus antibody, IgM type [facility] Work Phone: Hepatitis B core antibody measurement, IgM type [facility] Work Phone: Hepatitis B virus surface Ag [Presence] in Serum or Plasma by Immunoassay [facility] Work Phone: Hepatitis B virus surface Ag [Presence] in Serum or Plasma by Immunoassay Hepatitis B surface antigen Lab Routine Missed menses , unspecified gestational age Ordered: 10/01/2024 [facility] Comment on above: Ordered: 10/01/2024 Hepatitis C virus Ab [Presence] in Serum or Plasma by Immunoassay Hepatitis C antibody Lab Routine Missed menses , unspecified gestational age Ordered: 10/01/2024 [facility] Comment on above: Ordered: 10/01/2024 Hepatitis C virus Ab Signal/Cutoff in Serum or Plasma by Immunoassay [facility] Work Phone: Hepatitis C virus RN A [log units/volume] (viral load) in Serum or Plasma by JOSE with probe detection [facility] Work Phone: Hepatitis C virus RN A [Units/volume] (viral load) in Serum or Plasma by JOSE with probe detection [facility] Work Phone: HIV 1+2 Ab+HIV1 p24 Ag [Presence] in Serum or Plasma by Immunoassay [facility] Work Phone: HIV-1/HIV-2 antigen/antibody combination immunoassay HIV-1 and HIV-2 antibodies Lab Routine Missed menses , unspecified gestational age Ordered: 10/01/2024 [facility] Comment on above: Ordered: 10/01/2024 Human papilloma viru s DNA [Presence] in Unspecified specimen by Probe with amplification HPV DNA probe, amplified Microbiology Routine Well woman exam with routine gynecological exam Ordered: 11/30/2024 [facility] Comment on above: Ordered: 11/30/2024 Neisseria gonorrhoea e DNA [Presence] in Unspecified specimen by JOSE with probe detection Neisseria gonorrhea DNA probe, direct Lab Routine Pelvic pain in female Ordered: 06/29/2024 [facility] Comment on above: Ordered: 06/29/2024 Neisseria gonorrhoea e DNA [Presence] in Unspecified specimen by JOSE with probe detection Neisseria gonorrhea DNA probe, direct Lab Routine STD exposure Vaginal discharge Ordered: 11/30/2024 [facility] Comment on above: Ordered: 11/30/[address] [facility] Work Phone: Patient referral [facility] Work Phone: Reagin Ab [Presence] in Serum by RPR [facility] Work Phone: Reagin Ab [Presence] in Serum by RPR RPR Lab Routine Missed menses , unspecified gestational age Ordered: 10/01/2024 [facility] Comment on above: Ordered: 10/01/2024 Rubella antibody, IgG Rubella an tibody, IgG Lab Routine Missed menses , unspecified gestational age Ordered: 10/01/2024 [facility] Comment on above: Ordered: 10/01/2024 SURESWAB(R) ADVANCED VAGINITIS PLUS, TMA SURESWAB(R) ADVANCED VAGINITIS PLUS, TMA Pathology and Cytology Routine STD exposure Vaginal discharge Ordered: 11/30/2024 [facility] Comment on above: Ordered: 11/30/2024 US for US OB follow up transabdominal approach Imaging Routine size inconsistent with dates ([facility]) 04/06/2025 2:45 PM EDT [facility] Work Phone: Payers Date Payer Category Payer Medicaid [employer] [place] [id number] 2022-Present [address] [place], [place] [id number] 2022 Private Health Insurance [employer] MEDICAID [id number] 1991 Unknown [id number] 2.840.1.088377.3.579.2. 593 1991 Unknown [id number] 216840.1.875175.3.579.2. 593 1991 Unknown [id number] 2.16.840.1.334787.3.579.2. 593 1991 Unknown [id number] 2.16.840.1.256697.3.579.2. 593 1991 Unknown [id number] 2.16.840.1.789983.3.579.2. 593 1991 Unknown [id number] 2.16.840.1.100625.3.579.2. 593 1991 Unknown [id number] 2.16.840.1.773731.3.579.2. 593 1991 Unknown [id number] 2.16.840.1.564279.3.579.2. 593 1991 Unknown [id number] 2.16.840.1.447384.3.579.2. 593 1991 Unknown [id number] 2.16.840.1.265418.3.579.2. 593 1991 Unknown [id number] 2.16.840.1.748078.3.579.2. 593 1991 Unknown [id number] 2.16.840.1.332993.3.579.2. 593 1991 Unknown [id number] 2.16.840.1.735898.3.579.2. 1259 1991 Unknown [id number] 2.16.840.1.731915.3.579.2. 1259 1991 Unknown [id number] 2.16.840.1.689013.3.579.2. 1259 1991 Unknown [id number] 2.16.840.1.593080.3.579.2. 1259 1991 Unknown [id number] 2.16.840.1.215974.3.579.2. 1259 1991 Unknown [id number] 2.16.840.1.854762.3.579.2. 9 1991 Unknown [id number] 2.16.840.1.460270.3.579.2. 9 1991 Unknown [id number] 2.16.840.1.365216.3.579.2. 9 1991 Unknown [id number] 2.16.840.1.757288.3.579.2. 1258 1991 Unknown [id number] 2.16.840.1.558527.3.579.2. 9 1991 Unknown [id number] 2.16.840.1.656341.3.579.2. 9 1991 Unknown [id number] 2.16.840.1.242520.3.579.2. 9 1991 Unknown [id number] 2.16.840.1.730159.3.579.2. 9 1991 Unknown [id number] 2.16.840.1.818262.3.579.2. 9 1959 Private Health Insurance [id number] 1958 Self-pay [id number] 1958 Unknown [id number] Self-pay Self Pay [id number] Social History Date Type Detail Facility Start: 01-05-2022 End: 06-17-2024 Tobacco smoking status NHIS Smoker (finding) [facility] Start: 1990 Sex Assigned At Female F [facility] Start: 01-03-2023 Tobacco smoking stat [facility] Never smoked tobacco (finding) [facility] Start: 03-09-2024 End: 03-24-2025 Sex Assigned At [facility] Start: 10-06-2010 [facility] Start: 10-06-2010 End: 05-21-2021 History of tobacco use Cigarette Smoker [facility] Start: 03-09-2024 Tobacco use and exposure Smokeless tobacco non-user [facility] Start: 06-29-2024 End: 04-06-2025 Alcoholic beverage intake Ex-drinker (finding) [facility] Start: 03-09-2024 End: 03-24-2025 History of Social function [facility] Start: 04-13-2023 Education 13 [facility] Start: 04-13-2023 Alcohol Comment Alcohol: 1 or 2 drinks on typical day/monthly or less. Caffeine: 1 bottle pop daily; 2-3 cups/day coffee [facility] Start: 1990 Sex assigned at Not on file N [facility] Start: 08-19-2024 [facility] Start: 10-26-2024 End: 02-10-2025 Tobacco smoking status NHIS Ex-smoker (finding) [facility] Start: 10-26-2024 End: 02-10-2025 Sex Female (finding) [facility] Functional Status Date Assessment Result Facility 03-01-2025 Patient Health Quest ionnaire 2 item (PHQ-2) [Reported] [facility] 03-01-2025 PHQ-9 quick depressi on assessment panel [Reported.PHQ] [facility] Clinical Notes 05-14-2020 to 04-19-2025 Christine Roth ESTIMATOR PRINTING PLATE MAKING - 04/19/2025 2:20 PM FANG Arevalo - 04/06/2025 2:50 PM Reuben Roth LPN - 03/23/2025 2:30 PM FANG Arevalo - 03/09/2025 2:30 PM Reuben Roth LPN - 02/23/2025 2:50 PM EDT Note Date & Type Note Facility 04-19-2025 History of Present illness Narrative Reason for [...] Anovulation 07/19/2024 confirmed by positive blood test ([facility]) 09/09/2024 20 weeks gestation of ([facility]) 12/28/2024 Second trimester ([facility]) 12/28/2024 Resolved Ambulatory Problems Diagnosis Date Noted No Resolved Ambulatory Problems Past Medical History: Diagnosis Date Anxiety Asthma ([facility]) Dyspareunia in female Endometriosis Folliculitis Hematuria Miscarriage ([facility]) PID (acute pelvic inflammatory disease) Trichomoniasis 2012 HISTORY PAST MEDICAL HISTORY SOCIAL HISTORY Past Medical History: Diagnosis Date Anxiety Asthma ([facility]) Dysmenorrhea Dyspareunia in female Endometriosis Folliculitis Hematuria Miscarriage ([facility]) PID (acute pelvic inflammatory disease) Trichomoniasis 2012 [...] nursing note reviewed. Exam conducted with a sample box maker present. Vitals: Estimated body mass index is 29.54 kg/m as calculated from the following: Height as of 03/09/24: 5' 3 . Weight as of this encounter: 166 lb 12 oz. BP: 102/58 Patient's last menstrual period was 08/05/2024. ASSESSMENT & PLAN ICD-10-CM 1. Third trimester ([facility]) Z34.93 CULTURE, GROUP B STREP WITH SUSCEPTIBLITY [...] Documented by Christine Roth LPN on behalf of:gerald jackson documented in this encounter [facility] 04-06-2025 History of Present illness Narrative Reason [...] Anovulation 07/19/2024 confirmed by positive blood test ([facility]) 09/09/2024 20 weeks gestation of ([facility]) 12/28/2024 Second trimester ([facility]) 12/28/2024 Resolved Ambulatory Problems Diagnosis Date Noted No Resolved Ambulatory Problems Past Medical History: Diagnosis Date Anxiety Asthma (HCC) Dyspareunia in female Endometriosis Folliculitis Hematuria Miscarriage ([facility]) PID (acute pelvic inflammatory disease) Trichomoniasis 2012 HISTORY PAST MEDICAL HISTORY SOCIAL HISTORY Past Medical History: Diagnosis Date Anxiety Asthma (HCC) Dysmenorrhea Dyspareunia in female Endometriosis Folliculitis Hematuria Miscarriage ([facility]) PID (acute pelvic inflammatory disease) Trichomoniasis [...] PLAN ICD-10-CM 1. size inconsistent with dates ([facility]) O26.849 US OB follow up transabdominal approach 2. 34 weeks gestation of ([facility]) Z3A.34 3. Third trimester ([facility]) Z34.93 POCT urinalysis dipstick manually resulted Return [...] of: FANG Jackson documented in this encounter [facility] 03-23-2025 History of Present illness Narrative [...] Anovulation 07/19/2024 confirmed by positive blood test ([facility]) 09/09/2024 20 weeks gestation of ([facility]) 12/28/2024 Second trimester ([facility]) 12/28/2024 Resolved Ambulatory Problems Diagnosis Date Noted No Resolved Ambulatory Problems Past Medical History: Diagnosis Date Anxiety Asthma (HCC) Dyspareunia in female Endometriosis Folliculitis Hematuria Miscarriage ([facility]) PID (acute pelvic inflammatory disease) Trichomoniasis 2012 HISTORY PAST MEDICAL HISTORY SOCIAL HISTORY Past Medical History: Diagnosis Date Anxiety Asthma (HCC) Dysmenorrhea Dyspareunia in female Endometriosis Folliculitis Hematuria Miscarriage ([facility]) PID (acute pelvic inflammatory disease) Trichomoniasis [...] nursing note reviewed. Exam conducted with a sample box maker present. Vitals: Estimated body mass index is 28.7 kg/m as calculated from the following: Height as of 24: 5' 3 . Weight as of this encounter: 162 lb. BP: 112/68 Patient's last menstrual period was 08/05/2024. ASSESSMENT & PLAN ICD-10-CM 1. Third trimester ([facility]) Z34.93 POCT urinalysis dipstick manually resulted 2. 32 weeks gestation of ([facility]) Z3A.32 Return OB: Patient presents today for [...] Dominic Hester DO documented in this encounter [facility] 03-09-2025 History of Present illness Narrative [...] of: FANG Jackson documented in this encounter [facility] 02-23-2025 History of Present illness Narrative [...] nursing note reviewed. Exam conducted with a sample box maker present. Vitals: Estimated body mass index is [...] Dominic Hester DO documented in this encounter [facility] 01-31-2025 History of Present illness Narrative [...] nursing note reviewed. Exam conducted with a sample box maker present. Vitals: Estimated body mass index is [...] Hector Steve NP documented in this encounter [facility] 12-28-2024 History of Present illness Narrative [...] nursing note reviewed. Exam conducted with a sample box maker present. Vitals: Estimated body mass index is [...] Dominic Hester DO documented in this encounter [facility] 11-30-2024 History of Present illness Narrative [...] nursing note reviewed. Exam conducted with a sample box maker present. Vitals: Estimated body mass index is [...] obtained without difficulty [facility]. Orders Placed This [...] of: FANG Jackson documented in this encounter [facility] 11-02-2024 History of Present illness Narrative [...] Dominic Hester DO documented in this encounter [facility] 10-26-2024 Radiology Diagnostic study note [facility] [place] [address] Ultrasound Report Signed Patient: Breana Casas MR#: [id number] : 1990 Acct:[id number] Age/Sex: 33 / F ADM Date: 5 [...] Tanner Burleson M.D.10/26/2024 11:46 AM Dictation Location: [place] [address] Tech: Karmen Lobo Transcribed By: [facility] 10/26/24 1146 Dictated By: Tanner Burleson DO 10/26/24 1139 Signed By: 10/26/24 1146 [facility] 10-26-2024 Hospital Discharge instructions Additional Instructions Rest. Push fluids. Take [id number] Tylenol as needed for any pain or discomfort. Follow-up with Dr. Hester with [facility] in the next 2 to 3 days. Follow-up with primary care provider in the next 2 to 5 days. Return here if symptoms persist or worsen. [facility] Work Phone: 10-01-2024 History of Present [...] PID (acute pelvic inflammatory disease) Trichomoniasis 2013 Family History Problem Relation Name Age of [...] or undercooked meat, and stay away from [facility]. Patient has also been advised to not [...] Archana Parham LPN documented in this encounter [facility] 07-19-2024 History of Present illness Narrative [...] Past Medical History: Diagnosis Date Anxiety Asthma ([facility]) Dyspareunia in female Endometriosis Folliculitis Hematuria [...] nursing note reviewed. Exam conducted with a sample box maker present. Vitals: Estimated body mass index is [...] Dominic Hester DO documented in this encounter [facility] 06-29-2024 History of Present illness Narrative [...] nursing note reviewed. Exam conducted with a sample box maker present. Vitals: Estimated body mass index is [...] Dominic Hester DO documented in this encounter [facility] 04-07-2023 Evaluation note Encounter Date Diagnosis [...] right ear, unspecified type (ICD-10 - H60.501) [employer] Other 04-14-2023 NoteOPERATIVE NOTE OPERATION DATE: 01/17/2023 [...] products of conception were removed using an 8-[place]ican suction curette. Excellent hemostasis was noted. The patient tolerated the procedure well. Sponge, lap, and needle counts were correct x 2. All instruments were then removed from the patient's vagina. The patient was taken to the Recovery Room in stable condition. ??[id number] NoteOPERATIVE NOTE OPERATION DATE: 07/29/2022 PROCEDURE: Diagnostic laparoscopy. PREOPERATIVE DIAGNOSIS: Pelvic pain, dyspareunia, dysmenorrhea. POSTOPERATIVE DIAGNOSIS: Pelvic pain, dyspareunia, dysmenorrhea including significant endometriosis of the posterior cul-de-sac, as well as significant adhesions of the uterus to the anterior abdominal wall all the way to the fundal region. ANESTHESIA: General. SURGEON: Dominic Hester D.O. CUSTOMER RESPONSE REPRESENTATIVE: ADAN Flores URINE OUTPUT: Yellow and clear. [...] taken to Recovery Room in stable condition.[id number] Note Microbiology PROCEDURE: Cervical Culture [R1] SOURCE: [...] Locations R1: This test was performed at: [facility], [address] [place] [address], [id number]- , [place], [facility]awFire[facility] CenterComment on above:Performed By: #### [id number] ####[facility] [address] [place], [place] [id number] NoteCall received from u/s, bladder not full. Conway catheter education provided to patient, agrees to insertion at this time.[facility] CenterEvaluation noteNo assessment information availableThe [facility] Work Phone: Evaluation note* Diagnosis Female [...] (HHS-HCC) state, incidental 32 weeks gestation of ([facility]) size inconsistent with dates ([facility]HS-HCC) [facility] Diagnosis size inconsistent with dates ([facility]-HCC) 34 weeks gestation of (HHS-HCC) Third trimester (HHS-HCC) state, incidental Excessive growth affecting management of in third trimester, single or unspecified fetus (HHS-HCC) [facility] Diagnosis Third trimester ([facility]HS-HCC) state, incidental Mood changes Unspecified episodic mood disorder [facility] Additional Instructions Keep that area clean and dry Avoid putting any adhesives to area affected Take antibiotic as instructed until gone Clean with 9 deodorized soap Follow with your surgeon on Friday Return here if any problems persist or worsen including fever, chills or any other concerns[facility] Work Phone: Hospital Discharge instructions Additional Instructions It is important you follow-up with your [facility] call for appointment. Please return here if you develop any fevers, chills, shortness of breath, numbness, tingling, unilateral weakness or any other concernsSt[facility] Work Phone: Summary Purpose Family History No [...] and content) DATE CREATED AUTHOR 04/20/2021 Sourav [facility] DATE CREATED AUTHOR AUTHOR'S ORGANIZ ATION 01/23/2023 [facility] DATE CREATED AUTHOR AUTHOR'S ORGANIZ ATION 02/12/2025 [facility] DATE CREATED AUTHOR AUTHOR'S ORGANIZ ATION 04/23/2025 [facility] [employer] Care Teams (unrecognized sec tion and content) Team Status: Inactive Member Role Status Dates Naomy Garcia , HEAT TRANSFER TECHNICIAN-C Primary Care Provider Active Dominic Hester Attending Provider Active Team Status: Active Member Role Status Dates Naomy Garcia , HEAT TRANSFER TECHNICIAN-C Primary Care Provider Active Team Status: Inactive Member Role Status Dates Naomy Garcia , HEAT TRANSFER TECHNICIAN-C Primary Care Provider Active Monika Camarillo APRN Emergency Provider Active Team Status: Inactive Member Role Status Dates Naomy Garcia , HEAT TRANSFER TECHNICIAN-C Primary Care Provider Active Sylvia Romero PA-C Attending Provider Active Team Status: Inactive Member Role Status Dates Naomy Garcia , HEAT TRANSFER TECHNICIAN-C Primary Care Provider Active S tart: February 09, 2024 End: February 09, 2024 Dominic Hester Attending Provider Active Start: Stephanie solomon 2023 End: February 09, 2024 Team Status: Active Member Role Status Dates PHYSICIAN NO FAMILY Primary Care Provider Active Team Status: Inactive Member Role Status Dates Naomy Garcia , HEAT TRANSFER TECHNICIAN-C Primary Care Provider Active S tart: February [...] June 17, 2024 End: June 17, 2024 Linen Room Worker Relationship Specialty Start Date End Date Sylvia Romero PA [address] [place] [address] PCP - [facility] 07/06/24 Linen Room Worker Relationship Specialty Start Date End Date Sylvia Romero PA [address] [place] [address] PCP - [facility] 07/06/24 Linen Room Worker Relationship Specialty Start Date End Date Sylvia Romero [place] [address] PCP - [facility] 07/06/24 Team Status: Inactive Member Role Status Dates PHYSICIAN NO FAMILY Primary Care Provider Active Start: October 26, 2024 End: October 26, 2024 Ale Fragoso APRN Emergency Provider Active S tart: October 26, 2024 End: October 26, 2024 Linen Room Worker Relationship Specialty Start Date End Date Sylvia Romero PA [facility] [place], [facility] PCP - [facility] 07/06/24 Linen Room Worker Relationship Specialty Start Date End Date Sylvia Romero PA [facility] [place], [place] [address] PCP - [facility] 07/06/24 Linen Room Worker Relationship Specialty Start Date End Date Sylvia Romero PA [facility] [place], [facility] PCP - [facility] 07/06/24 Linen Room Worker Relationship Specialty Start Date End Date Sylvia Romero PA [facility] [place], [facility] PCP - [facility] 07/06/24 Linen Room Worker Relationship Specialty Start Date End Date Sylvia Romero PA [facility] [place], [facility] PCP - [facility] 07/06/24 Linen Room Worker Relationship Specialty Start Date End Date Sylvia Romero [place] [address] PCP - [facility] 07/06/24 Team Status: Inactive Member Role Status Dates PHYSICIAN NO FAMILY Primary Care Provider Active Start: February 10, 2025 End: February 10, 2025 Malcolm Gaston DO Emergency Provider Active St art: February 10, 2025 End: February 10, 2025 Linen Room Worker Relationship Specialty Start Date End Date Sylvia Romero PA [address] [place] [address] [place] [address] PCP - [facility] 07/06/24 Linen Room Worker Relationship Specialty Start Date End Date Sylvia Romero PA [address] [place] [address] [place] [address] PCP - [facility] 07/06/24 Linen Room Worker Relationship Specialty Start Date End Date Sylvia Romero PA [address] [place] [address] [place] [address] PCP - [facility] 07/06/24 Linen Room Worker Relationship Specialty Start Date End Date Sylvia Romero PA [address] [place] [address] [place] [address] PCP - [facility] 07/06/24 Linen Room Worker Relationship Specialty Start Date End Date Sylvia Romero PA [address] [place] [address] [place] [address] PCP - [facility] 07/06/24 Linen Room Worker Relationship Specialty Start Date End Date Sylvia Romero PA [address] [place] [address] [place] [address] PCP - [facility] 07/06/24 Goals (unrecognized section and [...] BE BASED ON THE PRIMARY CLINICAL RECORDS. [facility]. provides no warranty or guarantee of the accuracy or completeness of information in this document.
[2025-04-23 14:11] VITALS: BP 106/58; PULSE 83; TEMP 36.5
== END 2025-04-23 15:25 | disposition home or self-care (01) ==
LOC: FBCO 14:04 → FBC 14:05
PROVIDERS: Visit Provider Obstetrics & Gynecology
DX: O36.63X0 Maternal care for excessive fetal growth, third trimester, not applicable or unspecified (principal); Z3A.37 37 weeks gestation of pregnancy
CPT/HCPCS: 59025

== ENCOUNTER 2025-04-26 11:52 | Observation (INO) | payer OTHER, SELFPAY ==
--- OUTSIDE RECORDS SUMMARY | 2025-04-19 14:20 | XMS_ITS | Encounter Summary ---
Author Organization [facility] Address [address] [place] [address] Care Team Providers Care Wool Shearer Name Role Phone Sylvia Rosas Unavailable Reason for Visit * Reason Comments Routine Visit Encounter Details Date Type Department Care Team (Late st Contact Info) Description 04/19/2025 2:20 PM EDT Routine [facility] [address] [place] [address] Dominic Hester, DO [address] [facility] [address] [place], [place] [id number] Third trimester ([facility]); Mood changes Social History Tobacco Use Types Packs/Day Years [...] Answer Date Recorded Patient Health Questionnaire-2 Score 2 04/21/2025 Education Answer Date Recorded What is the [...] Sign Reading Time Taken Comments Blood Pressure 102/58 04/19/2025 2:23 PM EDT Pulse - - Temperature - - Respiratory Rate - - Oxygen Saturation - - Inhaled Oxygen Concentration - - Weight 75.6 kg (166 lb 12 oz) 04/19/2025 2:23 PM EDT Height - - Body Mass Index 29.54 03/09/2024 2:55 PM EDT documented in this encounter Progress Notes * Christine Roth, PAYTON - 04/19/2025 2:20 PM EDT Reason for Appointment: Patient ID: [...] Anovulation 07/19/2024 confirmed by positive blood test ([facility]) 09/09/2024 20 weeks gestation of ([facility]) 12/28/2024 Second trimester ([facility]) 12/28/2024 Resolved Ambulatory Problems Diagnosis Date Noted No Resolved Ambulatory Problems Past Medical History: Diagnosis Date Anxiety Asthma (HCC) Dyspareunia in female Endometriosis Folliculitis Hematuria Miscarriage ([facility]) PID (acute pelvic inflammatory disease) Trichomoniasis 2013 HISTORY PAST MEDICAL HISTORY SOCIAL HISTORY Past Medical History: Diagnosis Date Anxiety Asthma (HCC) Dysmenorrhea Dyspareunia in female Endometriosis Folliculitis Hematuria Miscarriage ([facility]) PID (acute pelvic inflammatory disease) Trichomoniasis 2012 Social History Tobacco Use Smoking status: Every Day Current packs/day: 0.00 Types: Cigarettes Start date: 10/06/2010 Last attempt to quit: 05/21/2021 Years since quittin.9 Smokeless tobacco: Never Vaping Use Vaping status: [...] Musculoskeletal: Negative. Skin: Negative. Neurological: Negative. Psychiatric/Behavioral: Positive for dysphoric mood. All other systems reviewed and are negative. [...] nursing note reviewed. Exam conducted with a delivery department supervisor present. Vitals: Estimated body mass index is 29.54 kg/m?? as calculated from the following: Height as of 03/09/24: 5' 3 . Weight as of this encounter: 166 lb 12 oz. BP: 102/58 Patient's last menstrual period was 08/05/2024. ASSESSMENT & PLAN ICD-10-CM 1. Third trimester ([facility]) Z34.93 CULTURE, GROUP B STREP WITH SUSCEPTIBLITY CULTURE, GROUP B STREP WITH SUSCEPTIBLITY CANCELED: POCT urinalysis dipstick manually resulted Patient is doing well but has complaints of being tired and having maternal discomfort due to . Patient verbalized frequent movement and was instructed to perform kick counts three times per day. labor precautions were given, LARC consent was signed/declined, and GBS was obtained. Cervical check was performed and patient is 1cm dilated. Pt crying and seemed down- discussed adding medication pt agreed, rx for celexa faxed to pharmacy pt denies suicidal and homicidal ideations. Orders Placed This Encounter Procedures CULTURE, GROUP B STREP WITH SUSCEPTIBLITY Follow Up: Patient is to return to office in 1 week for routine OB appointment Documented by Christine Roth LPN on behalf of:sylvia rosas, pac documented in this encounter Plan of Treatment Upcoming Encounters Date Type Department Care Team (Late st Contact Info) Description 05/04/2025 1:30 PM EDT Office Visit [facility] [address] [place] [address] Amaya Steve NP [address] [place] [address] Scheduled Orders Name Type Priority Associated Diagnoses Orde r Schedule CULTURE, GROUP B STREP WITH SUSCEPTIBLITY Lab Routine Third trimester ([facility]) Expected: 04/19/2025, Expires: 04/19/2026 documented as of this encounter Visit Diagnoses Diagnosis Third trimester ([facility]) state, incidental Mood changes Unspecified episodic mood disorder documented in this encounter Care Teams Wool Shearer Relationship Specialty Start Date End Date Sylvia Rosas PA [address] [place] [address] [place] [address] PCP - [facility] 07/06/24 documented as of this encounter
--- OUTSIDE RECORDS SUMMARY | 2025-04-26 11:30 | XMS_ITS | Encounter Summary ---
Author Organization [facility] Address [address] [place] [address] Care Team Providers Care Childcare Worker Name Role Phone Sylvia Romero Unavailable Reason for Visit * Reason Comments Routine Visit Encounter Details Date Type Department Care Team (Late st Contact Info) Description 04/26/2025 11:30 AM EDT Routine [facility] [address] [place] [address] Dominic Hester, DO [address] [facility] [address] Ab[address]et [place], [place] [id number] Third trimester ([facility]); 37 weeks gestation of ([facility]) Social History Tobacco Use Types [...] Sign Reading Time Taken Comments Blood Pressure 110/66 04/26/2025 11:18 AM EDT Pulse - - Temperature - - Respiratory Rate - - Oxygen Saturation - - Inhaled Oxygen Concentration - - Weight 76.9 kg (169 lb 8 oz) 04/26/2025 11:18 AM EDT Height - - Body Mass Index 30.03 03/09/2024 2:55 PM EDT documented in this encounter Plan of Treatment Upcoming Encounters Date Type Department Care Team (Late st Contact Info) Description 05/04/2025 1:30 PM EDT Office Visit [facility] OB [address] [place] [address] Amaya Steve, PEDIATRIC NP [address] [facility] [place] [address] documented as of this encounter Procedures Procedure Name Priority Date/Time Associated Diagnosis Comments POCT URINALYSIS DIPSTICK Routine 04/26/2025 11:51 AM EDT Third trimester ([facility]) documented in this encounter Results * (ABNORMAL) POCT urinalysis dipstick manually resulted (04/26/2025 11:51 AM EDT) Color, UA Yellow Clarity, UA Clear Glucose, UA Negative Negative - 1999(110) ++++ mg/dL Bilirubin, UA Negative Negative - 4(70) +++ mg/dL Ketones, UA Negative Negative - 160(16) ++++ mg/dL Spec Grav, UA 1.015 1 - 1.03 Blood, UA Negative Negative - 50 Brent/mcL pH, UA 7.0 5 - 9 Protein, UA Negative Negative - 1999(20) ++++ mg/dL Urobilinogen, UA 0.2 0.2 - 12 mg/dL Leukocytes, UA Moderate Negative - 500+++ Kae/mcL Nitrite, UA Negative Negative - Positive Urine 04/26/2025 11:5 1 AM EDT Dominic Hester DO POINT OF CARE TEST ENTER/EDIT OR DERABLES Final Result documented in this encounter Visit Diagnoses Diagnosis Third trimester ([facility]) state, incidental 37 weeks gestation of ([facility]) documented in this encounter Care Teams Childcare Worker Relationship Specialty Start Date End Date Sylvia Romero PA [address] [place] [address] [place] [address] PCP - [facility] CLOTH EDGE SINGER 07/06/24 documented as of this encounter
--- NOTE | 2025-04-26 11:56 | US_ITS ---
[address] [address] Patient Name: BREANA CASAS MRN: [id number] date: 1990 Sex: F Assigned Patient Location: [facility] Current Patient Location: Accession/Order Number: [id number] Exam Date: 04/26/2025 13:20 Report Date: 04/26/2025 13:21 At the request of: ADONIS HANSEN DO Procedure: US OB BPP w non-stress Biophysical profile. Reason for exam: Decreased movements COMPARISON: BPP 04/20/2025 TECHNIQUE: Transabdominal imaging of the gravid uterus was obtained. FINDINGS: The rod buster reports a BPP of 8 out of 8. TAMIR is normal at 13.4 cm. heart rate 161 bpm. US/US OB BPP w non-stress IMPRESSION: BPP 8 out of 8. Impression dictated by: Seferino Tay Jr., D.O. 04/26/2025 1:21 PM Dictation Location: [place] [address] Electronically authenticated by: [id number] Y Date: 04/26/2025 13:21
--- OUTSIDE RECORDS SUMMARY | 2025-04-26 11:56 | XMS_ITS | Encounter Summary ---
Author Organization [facility] Address [address] [place] [address] Care Team Providers Care Tool Straightener Name Role Phone [place]ylvia Unavailable Encounter Details Date Type Department Care Team (Late st Contact Info) Description 04/19/2025 Bamboo flowsheet [facility] OB [address] [place] [address] Dominic Hester, DO [address] [facility] [address] [place]ije[place], [facility]11 Social History Tobacco Use Types Packs/Day [...] EDT Office Visit [facility] OB [address] [facility] [place] [phone] Amaya Steve, SLATER APPRENTICE [address] [place] [address] documented as of this encounter Visit Diagnoses Not on filedocumented in this encounter Care Teams Tool Straightener Relationship Specialty Start Date End Date Sylvia Romero PA [address] [place], [place] [phone] PCP - [facility] AVIATION ENGINEER 07/06/24 documented as of this encounter
--- OUTSIDE RECORDS SUMMARY | 2025-04-26 11:56 | XMS_ITS | Encounter Summary ---
Author Organization [facility] Address [address] [place] [address] Care Team Providers Care Service Electrician Name Role Phone [place] Unavailable Encounter Details Date Type Department Care Team (Late st Contact Info) Description 04/26/2025 Bamboo flowsheet [facility] OB [address] [place] [address] Dominic Hester, DO [address] [facility] [address] [place]ije[place], [facility]11 Social History Tobacco Use Types Packs/Day [...] EDT Office Visit [facility] BCP OB [address] [place] [phone] Amaya Steve, PRODUCT INTRODUCTION MANAGER [address] [place] [address] documented as of this encounter Visit Diagnoses Not on filedocumented in this encounter Care Teams Service Electrician Relationship Specialty Start Date End Date Sylvia Romero PA [address] [place], [place] [phone] PCP - [facility] SWITCHBOX ASSEMBLER 07/06/24 documented as of this encounter
--- OUTSIDE RECORDS SUMMARY | 2025-04-26 11:56 | XMS_ITS | Encounter Summary ---
Author Organization [facility] Address [address] [place] [address] Care Team Providers Care Social Director Name Role Phone [place]ylvia Unavailable Encounter Details Date Type Department Care Team (Late st Contact Info) Description 10/01/2024 Abstract [facility] OB [address] [place] [phone] Dominic Hester, DO [address] Abhijeet [place], [facility]11 Social History Tobacco Use Types Packs/Day Years [...] Visit [facility] BCP OB [address] [place] [address] Amaya Steve, CAIT [address] [place] [address] documented as of this encounter Visit Diagnoses Not on filedocumented in this encounter Care Teams Social Director Relationship Specialty Start Date End Date Sylvia Romero PA [address] [place], [place] [phone] PCP - [facility] 07/06/24 documented as of this encounter
--- OUTSIDE RECORDS SUMMARY | 2025-04-26 11:56 | XMS_ITS | Encounter Summary ---
Author Organization [facility] Address [address] [place] [address] Care Team Providers Care Paint Striping Machine Operator Name Role Phone Sylvia Romero Unavailable Sylvia Romero Unavailable Encounter Details Date Type Department Care Team (Late st Contact Info) Description 05/14/2023 Abstract [facility] B[facility] OB [address] [facility] [place] [address] Sylvia Romero PA [address] [facility] [place] [address] Social History Tobacco Use Types Packs/Day [...] EDT Office Visit [facility] B[facility] OB [address] [facility] [place] [phone] Amaya Steve, GAS PLANT REPAIRER [address] [facility] [place] [address] documented as of this encounter Visit Diagnoses Not on filedocumented in this encounter Care Teams Paint Striping Machine Operator Relationship Specialty Start Date End Date Sylvia Romero PA [facility] [address] [place], [place] [phone] PCP - [facility] ROUGH PLANER TENDER 01/05/24 4 Sylvia Romero PA [address] [place] [address] [place] [address] PCP - [facility] ROUGH PLANER TENDER 07/06/24 documented as of this encounter
--- OUTSIDE RECORDS SUMMARY | 2025-04-26 11:56 | XMS_ITS | Encounter Summary ---
Author Organization [facility] Address [address] [place] [address] Care Team Providers Care Cra Officer Name Role Phone [place], Sylvia HEADLEY Unavailable Encounter Details Date Type Department Care Team (Late Contact Info) Description 04/28/2024 Abstract [facility] OB [address] [facility] [place] [address] Zainab Mcwilliams LPN [address] [place] [address] Social History Tobacco Use Types [...] EDT Office Visit [facility] BCP OB [address] [facility] [place] [address] Amaya Steve, CAIT [address] [facility] [place] [address] documented as of this encounter Visit Diagnoses Not on filedocumented in this encounter Care Teams Cra Officer Relationship Specialty Start Date End Date Sylvia Romero PA [address] [facility] [place] [address] PCP - [facility] SPECIAL DELIVERY CLERK 07/06/24 documented as of this encounter
--- OUTSIDE RECORDS SUMMARY | 2025-04-26 11:56 | XMS_ITS | Encounter Summary ---
Author Organization [facility] Address [address] [place] [address] Care Team Providers Care Machinist Apprentice Wood Name Role Phone Sylvia Enriquez Unavailable Encounter Details Date Type Department Care Team (Late st Contact Info) Description 04/13/2025 Clinisync Result Encounter N[facility] External Department Unsolicited Sylvia Enriquez PA [address] [facility] [address] [place], [facility]11 Social History Tobacco Use Types Packs/Day [...] EDT Office Visit [facility] OB [address] [facility] [place] [place] [address] Amaya Steve, MIG TIG WELDER [address] [facility] [place] [address] documented as of this encounter Procedures Procedure Name Priority Date/Time Associated Diagnosis Comments US OB BPP W NON-STRESS 04/13/2025 4:17 PM EDT documented in this encounter Results * US OB BPP W NON-STRESS (04/13/2025 4:17 PM EDT) Anatomical Region Laterality Modality Other 04/13/2025 4:17 PM EDT Narrative 04/13/2025 4:19 PM EDT The [address] [address] Ultrasound Report Signed Patient: BREANA JOHN MR#: [id number] : 1990 Acct:[id number] Age/Sex: 34 / F ADM Date: Loc: US Attending Dr: Sylvia Enriquez Ordering Physician: Sylvia Enriquez Date of Service: 04/13/25 Procedure(s): US OB BPP w non-stress Accession Number(s): [id number] cc: Sylvia Enriquez; Physician,Non-Staff M.D. The [address] [address] Patient Name: BREANA JOHN MRN: [id number] date: 1990 Sex: F Assigned Patient Location: US Current Patient Location: [facility] Accession/Order Number: [id number] Exam Date: 04/13/2025 16:16 Report Date: 04/13/2025 [...] Burleson M.D. 04/13/2025 4:17 PM Dictation Location: [place] [address] Electronically authenticated by: [id number] Y Date: 04/13/2025 16:17 Dictated By: Tanner Burleson D.O. Signed By: 04/13/25 1619 DD/ 1617 TD/TT: Ground Crew Supervisor: Procedure Note Radiology, Radiologist, - 04/13/2025 [place] [address] Ultrasound Report Signed Patient: BREANA JOHN NMR#: [id number] : 1990Acct:[id number] Age/Sex: 34 / FADM Date: Loc: US Attending Dr: Sylvia Enriquez Ordering Physician: Sylvia Enriquez Date of Service: 04/13/25 Procedure(s): US OB BPP w non-stress Accession Number(s): [id number] cc: Sylvia Enriquez; Physician,Non-Staff [place] The [place] [id number] Patient Name: BREANA JOHN MRN: [facility]:[id number] date: 1990 Sex: F Assigned Patient Location: Current Patient Location: [facility] Accession/Order Number: [id number] Exam Date: 04/13/2025 16:16 Report Date: 04/13/2025 [...] Burleson M.D. 04/13/2025 4:17 PM Dictation Location: [place] [address] Electronically authenticated by: [id number] Y Date: 6:17 Dictated By: Tanner Burleson D.O. Signed By:04/13/25 1619 DD/ 1617 TD/TT: Ground Crew Supervisor: Sylvia HEADLEY [facility] Final Result documented in this encounter Visit Diagnoses Not on filedocumented in this encounter Care Teams Machinist Apprentice Wood Relationship Specialty Start Date End Date Sylvia Enriquez PA [address] [place] [address] Dr [place], [facility]11 PCP - [facility] HAT BODY SORTER 07/06/24 documented as of this encounter
--- OUTSIDE RECORDS SUMMARY | 2025-04-26 11:56 | XMS_ITS | Encounter Summary ---
Author Organization [facility] Address [address] [place] [address] Care Team Providers Care Clearing Tub Worker Name Role Phone Sylvia Romero Unavailable Encounter Details Date Type Department Care Team (Late st Contact Info) Description 04/21/2025 Patient Outreach [facility] POPULATION [facility] [address] [place] [address] Sylvia Villa LPN [address] [place] [address] Social History Tobacco Use Types Packs/Day Years [...] Little interest or pleasure in doing things Several days 04/21/2025 10:31 AM EDT Sylvia Villa LP N Feeling down, depressed, or hopeless Several days 04/21/2025 10:31 AM EDT Sylvia Villa LP N Patient Health Questionnaire -2 Score 2 04/21/2025 10:31 AM EDT Sylvia Villa LP N * Question Answer Date of Assessment Author Poor appetite or overeating Several days 04/21/2025 10 :31 AM EDT Sylvia Villa LPN Trouble concentrating on things, such as reading the newspaper or watching television Several days 04/21/2025 10:31 AM EDT Sylvia Villa LP N * If you checked off any problems on this questionnaire so far, Question Answer Date of Assessment Author How difficult have these problems made it for you to do your work, take care of things at home, or get along with other people? Somewhat difficult 04/21/2025 10:31 AM EDT Sylvia Villa LP N documented as of this encounter Progress Notes * Sylvia Villa LPN - 04/21/2025 10:27 AM EDT Monthly Outreach. Call to pt Pt reports she feels baby moving frequently. Appetite is less and sleep is adequate but sleep is interrupted. Bowels are regular, Pt reports depression has improved sincestarting citalopram although some depression continues. Pt reports she intends to formula feed and is established with [facility]. Pt reports Dr Hester is inducing her next week. Meds reconciled, Next OB OV 04/26/2025 documented in this encounter Plan of Treatment Upcoming Encounters Date Type Department Care Team (Late st Contact Info) Description 05/04/2025 1:30 PM EDT Office Visit [facility] BCP OB [address] [place] [phone] Amaya Steve, WEIGHT LOSS SALES CONSULTANT [address] [place] [address] documented as of this encounter Visit Diagnoses Not on filedocumented in this encounter Care Teams Clearing Tub Worker Relationship Specialty Start Date End Date Sylvia Romero PA [address] [place] [address] PCP - [facility] TRAIN OPERATIONS MANAGER 07/06/24 documented as of this encounter
--- OUTSIDE RECORDS SUMMARY | 2025-04-26 11:56 | XMS_ITS | Encounter Summary ---
Author Organization [facility] Address [address] [place] [address] Care Team Providers Care Medical Records Auditor Name Role Phone TarzanSylvia Unavailable Encounter Details Date Type Department Care Team (Late st Contact Info) Description 10/26/2024 Abstract [facility] OB [address] [place] [phone] Dominic Hester, DO [address] [place] [place], [place] [phone] Social History Tobacco Use Types Packs/Day Years [...] Visit [facility] BCP OB [address] [place] [address] Amaya Steve, CAIT [address] [place] [address] documented as of this encounter Visit Diagnoses Not on filedocumented in this encounter Care Teams Medical Records Auditor Relationship Specialty Start Date End Date Sylvia Romero PA [address] [place], [place] [phone] PCP - [facility] 07/06/24 documented as of this encounter
--- OUTSIDE RECORDS SUMMARY | 2025-04-26 11:56 | XMS_ITS | Encounter Summary ---
Author Organization [facility] Address [address] [place] [address] Care Team Providers Care Test Evaluator Name Role Phone Sylvia Romero FANG Unavailable [...] PM EDT Office Visit [facility] BCP OB [address] [place], [place] [address] [place] [address] Amaya Steve, GROVE WORKER [address] [facility] [place] [address] documented as of this encounter Visit Diagnoses Not on filedocumented in this encounter Care Teams Test Evaluator Relationship Specialty Start Date End Date Sylvia Romero PA [address] [place] [address] PCP - [facility] ASBESTOS ABATEMENT WORKER 07/06/24 documented as of this encounter
--- OUTSIDE RECORDS SUMMARY | 2025-04-26 11:56 | XMS_ITS | Encounter Summary ---
Author Organization [facility] Address [address] [place] [address] Care Team Providers Care Director Community Center Name Role Phone Sylvia Romero Unavailable Sylvia Romero Unavailable Encounter Details Date Type Department Care Team (Late st Contact Info) Description 02/20/2024 Clinisync Result Encounter N[facility] External Department Unsolicited Adonis Hester, DO [address] [place], [facility]11 Social History Tobacco Use Types Packs/Day [...] Visit [facility] BCP OB [address] [place] [address] Amaya Steve, CAIT [address] [place] [address] [place] [address] documented as of this encounter Procedures Procedure Name Priority Date/Time Associated Diagnosis Comments XR CHEST 2V 02/20/2024 4:06 PM EDT documented in this encounter Results * XR CHEST 2V (02/20/2024 4:06 PM EDT) Anatomical Region Laterality Modality Other 02/20/2024 4:06 PM EDT Narrative 02/20/2024 4:09 PM EDT [address] [address] XRay Report Signed Patient: BREANA JOHN MR#: [id number] : 1990 Acct:[id number] Age/Sex: 33 / F ADM Date: 02/20/24 Loc: [facility] Attending Dr: Adonis Hester D.O. Ordering Physician: Adonis Hester D.O. Date of Service: 02/20/24 Procedure(s): XR chest 2V Accession Number(s): [id number] cc: Adonis Hester D.O.; Physician,Non-Staff [place] [address] [address] Patient Name: BREANA JOHN MRN: [facility]:[id number] date: 1990 Sex: F Assigned Patient Location: SURGOUT Current Patient Location: [facility] Accession/Order Number: [id number] Exam Date: 02/20/2024 13:05 Report Date: 02/20/2024 [...] M.D. Signed By: 02/20/241608 DD/ 05 TD/TT: Education And Outreach Coordinator: Procedure Note Radiology, Radiologist, MD - 02/20/2024 [place] [address] XRay Report Signed Patient: BREANA JOHN NMR#: [id number] : 1990Acct:[id number] Age/Sex: 33 / FADM Date: 02/20/24 Loc: PST Attending Dr: Adonis Hester D.O. Ordering Physician: Adonis Hester D.O. Date of Service: 02/20/24 Procedure(s): XR chest 2V Accession Number(s): [id number] cc: Adonis Hester D.O.; Physician,Non-Staff [place] The [place] [address] Patient Name: BREANA JOHN MRN: [facility]:[id number] date: 1990 Sex: F Assigned Patient Location: [facility] Current Patient Location: [facility] Accession/Order Number: [id number] Exam Date: 02/20/2024 13:05 Report Date: 02/20/2024 [...] By: Nahid Huitron M.D. Signed By:02/20/241608 DD/ 1606 TD/TT: Education And Outreach Coordinator: Adonis Mir DO [facility] Final Result documented in this encounter Visit Diagnoses Not on filedocumented in this encounter Care Teams Director Community Center Relationship Specialty Start Date End Date Sylvia Romero PA [address] [place] [address] [place] [address] PCP - [facility] POLITICAL SCIENCE RESEARCH ASSISTANT 01/05/24 4 Sylvia Romero PA [address] [place] [address] [place] [address] PCP - [facility] POLITICAL SCIENCE RESEARCH ASSISTANT 07/06/24 documented as of this encounter
--- OUTSIDE RECORDS SUMMARY | 2025-04-26 11:56 | XMS_ITS | Encounter Summary ---
Author Organization [facility] Address [address] [place] [address] Care Team Providers Care Stripper And Taper Name Role Phone Heather Sylvia HEADLEY Unavailable Encounter Details Date Type Department Care Team (Late st Contact Info) Description 12/13/2024 Orders Only [facility] BCP OB [address] [place] [address] [place] [address] Adriana Hartman MA Social History Tobacco [...] EDT Office Visit [facility] BCP OB [address] [facility] [place] [address] Amaya Steve NP [address] [facility] [place] [address] documented as of this encounter Procedures Procedure Name Priority Date/Time Associated Diagnosis Comments PAP SMEAR Routine 11/30/2024 12:00 AM EST documented in this encounter Results * Pap Smear (11/30/2024 12:00 AM EST) Swab Cervical swab / Unknown Sylvia HEADLEY LAB CYTOLOGY ORDERABLES Final Re sult EXTERNAL LAB documented in this encounter Visit Diagnoses Not on filedocumented in this encounter Care Teams Stripper And Taper Relationship Specialty Start Date End Date Sylvia Romero PA [address] [facility] [place] [address] PCP - [facility] VIDEO SURVEILLANCE TECHNICIAN 07/06/24 documented as of this encounter
--- OUTSIDE RECORDS SUMMARY | 2025-04-26 11:56 | XMS_ITS | Encounter Summary ---
Author Organization [facility] Address [address] [place] [address] Care Team Providers Care Superintendent Plant Protection Name Role Phone [place]yl[place] Unavailable Encounter Details Date Type Department Care Team (Late st Contact Info) Description 02/21/2025 Results Follow-Up [facility] BCP OB [address] [facility] [address] Zainab Mcwilliams LPN [address] [place] [address] Social History Tobacco Use Types [...] Visit [facility] BCP OB [address] [place] [address] Amaya Steve, CAIT [address] [place] [address] documented as of this encounter Visit Diagnoses Not on filedocumented in this encounter Care Teams Superintendent Plant Protection Relationship Specialty Start Date End Date Sylvia Romero PA [address] [place], [place] [phone] PCP - [facility] WINDOWS SOFTWARE ENGINEER 07/06/24 documented as of this encounter
--- OUTSIDE RECORDS SUMMARY | 2025-04-26 11:57 | XMS_ITS | Encounter Summary ---
Author Organization [facility] Address [address] [place] [address] Care Team Providers Care Wooling Machine Operator Name Role Phone Sylvia Romero FANG Unavailable Encounter Details Date Type Department Care Team (Late Contact Info) Description 09/17/2024 Abstract [facility] OB [address] [place] [address] Dominic Hester, DO [address] [facility] [address] [place], [place] [phone] Social History Tobacco Use Types Packs/Day Years [...] EDT Office Visit [facility] BCP OB [address] [facility] [place] [address] Amaya Steve, CAIT [address] [facility] [place] [address] documented as of this encounter Visit Diagnoses Not on filedocumented in this encounter Care Teams Wooling Machine Operator Relationship Specialty Start Date End Date Sylvia Romero PA [address] [place] [address] PCP - [facility] EXECUTIVE COMPENSATION ANALYST 07/06/24 documented as of this encounter
--- OUTSIDE RECORDS SUMMARY | 2025-04-26 11:57 | XMS_ITS ---
Author Organization [facility] Address [address] [place] [address] Care Team Providers Care Superintendent Power Name Role Phone Sylvia Romero Unavailable [facility] ([facility]) Status:Enrolled (Active) Start date:02/24/2025 Enrollment date:03/01/2025 Enrollment reason:Identified by Health Plan Case Team Name Relationship Phone Sylvia Villa LPN(Responsible Staff) Licensed State mental health facility Nurse [phone] Continued Care and Services Coordination
--- OUTSIDE RECORDS SUMMARY | 2025-04-26 11:57 | XMS_ITS | Encounter Summary ---
Author Organization [facility] Address [address] [place] [address] Care Team Providers Care Couturiere Name Role Phone Raquette LakeSylvia Unavailable Encounter Details Date Type Department Care Team (Late st Contact Info) Description 10/26/2024 Abstract [facility] [address] [place] [id number] Dominic Hester, DO [address] [place] [place], [place] [id number] Social History Tobacco Use Types Packs/Day Years [...] Visit [facility] [address] [place] [address] Amaya Steve, CAIT [address] [place] [address] documented as of this encounter Visit Diagnoses Not on filedocumented in this encounter Care Teams Couturiere Relationship Specialty Start Date End Date Sylvia Romero PA [address] [place], [place] [id number] PCP - [facility] 07/06/24 documented as of this encounter
--- OUTSIDE RECORDS SUMMARY | 2025-04-26 11:57 | XMS_ITS | Encounter Summary ---
Author Organization [facility] Address [address] [place] [address] Care Team Providers Care Soap Boiler Name Role Phone Sylvia Enriquez Unavailable Encounter Details Date Type Department Care Team (Late st Contact Info) Description 04/21/2025 Clinisync Result Encounter [facility] External Department Unsolicited Sylvia Enriquez PA [address] [facility] [address] [place], [facility] Social History Tobacco Use Types Packs/Day Years [...] EDT Office Visit [facility] [address] [place] [address] Amaya Steve, ELEVATOR STARTER [address] [facility] [place] [address] documented as of this encounter Procedures Procedure Name Priority Date/Time Associated Diagnosis Comments US OB BPP W NON-STRESS 04/21/2025 8:14 AM EDT documented in this encounter Results * US OB BPP W NON-STRESS (04/21/2025 8:14 AM EDT) Anatomical Region Laterality Modality Other 04/21/2025 8:14 AM EDT Narrative 04/21/2025 8:17 AM EDT The [address] [address] Ultrasound Report Signed Patient: BREANA JOHN MR#: [id number] : 1990 Acct:[id number] Age/Sex: 34 / F ADM Date: 04/20/25 Loc: US Attending Dr: Sylvia Enriquez Ordering Physician: Sylvia Enriquez Date of Service: 04/20/25 Procedure(s): US OB BPP w non-stress Accession Number(s): [id number] cc: Sylvia Enriquez; Physician,Non-Staff M.D. The [address] [address] Patient Name: BREANA JOHN MRN: [id number] date: 1990 Sex: F Assigned Patient Location: US Current Patient Location: Accession/Order Number: [id number] Exam Date: 04/21/2025 08:12 Report Date: 04/21/2025 08:14 At the request of: SYLVIA ENRIQUEZ Procedure: US OB BPP w non-stress BIOPHYSICAL [...] This is in normal range. Total score: 05/13 US/US OB BPP w non-stress IMPRESSION: NORMAL BIOPHYSICAL PROFILE. NUCHAL CORD. Impression dictated by: Christine Mckeon M.D. 04/21/2025 8:14 AM Dictation Location: [place] [address] Electronically authenticated by: [id number] Y Date: 04/21/2025 08:14 Dictated By: Christine Mckeon M.D. Signed By: 04/21/25816 DD/ 3 TD/TT: Spindle Sander: Procedure Note Radiology, Radiologist, - 04/21/[address] [address] Ultrasound Report Signed Patient: BREANA JOHN NMR#: [id number] : 1990Acct:[id number] Age/Sex: 34 / FADM Date: 04/20/25 Loc: US Attending Dr: Sylvia Enriquez Ordering Physician: Sylvia Enriquez Date of Service: 04/20/25 Procedure(s): US OB BPP w non-stress Accession Number(s): [id number] cc: Sylvia Enriquez; Physician,Non-Staff Augustine The [address] [address] Patient Name: BREANA JOHN MRN: [id number] date: 1990 Sex: F Assigned Patient Location: US Current Patient Location: Accession/Order Number: [id number] Exam Date: 04/21/2025 08:12 Report Date: 04/21/2025 08:14 At the request of: SYLVIA ENRIQUEZ Procedure: US OB BPP w non-stress BIOPHYSICAL PROFILE: CLINICAL INFORMATION: EXCESSIVE GROWTH COMPARISON: 04/13/2025 There is a single live intrauterine gestation in cephalic presentation.The reported gestational age is 36 weeks 6 days. The heart ratemeasures 139 beats per minute. 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 FINDINGS: TONE: 1 or more episodes of activity extension and flexion of extremity or opening and closing of the hand [Y] 2/2 GROSS BODY MOVEMENTS: 3 or more discrete body or limb movements [Y] 2/2 BREATHING MOVEMENTS: 1 or more episodes of breathing lastingat least 30 seconds [Y] 2/2 TAMIR: A single deepest vertical pocket of amniotic fluid greater than 2 cm [Y] 2/2 TAMIR: 17.4 cm. This is in normal range. Total score: 8/8 US/US OB BPP w non-stress IMPRESSION: NORMAL BIOPHYSICAL PROFILE. NUCHAL CORD. Impression dictated by: Christine Mckeon M.D. 04/21/2025 8:14 AM Dictation Location: [place] [address] Electronically authenticated by: [id number] Y Date: 508:14 Dictated By: Christine Mckeon M.D. Signed By:04/21/25816 DD/ 3 TD/TT: Spindle Sander: Sylvia [facility] Final Result documented in this encounter Visit Diagnoses Not on filedocumented in this encounter Care Teams Soap Boiler Relationship Specialty Start Date End Date Sylvia Enriquez PA [address] [place] [address] [place] [address] PCP - [facility] 07/06/24 documented as of this encounter
--- OUTSIDE RECORDS SUMMARY | 2025-04-26 11:57 | XMS_ITS | Clinical Summary ---
Author Organization [facility] Address [address] [place] [address] Care Team Providers Care Landscape Specialist Name Role Phone Sylvia Enriquez Unavailable Allergies No known active allergies Medications ondansetron ODT (Zofran-ODT) 4 MG disintegrating tabletIndications:P regnancy confirmed by positive blood test ([facility]),Nausea Take 1 tablet (4 mg) by mouth every 6 (six) hours if needed for nausea or vomiting for up to 30 doses 30 tablet 2 4 Active Vit-Fe Fumarate-FA ( Vitamins) 28-0.8 MG tabletIndications:P regnancy confirmed by positive blood test ([facility]) Take 1 tablet by mouth Daily 30 [...] Date Diagnosed Date 20 weeks gestation of ([facility]) 2024 Second trimester ([facility]) 12/28/2024 confirmed by positive blood test ([facility]) 09/09/2024 Anovulation 07/19/2024 Dysmenorrhea 03/11/2023 Menorrhagia with irregular cycle 03/11/2023 Missed menses 03/11/2023 Nausea and vomiting 03/11/2023 Pain in female genitalia on intercourse 03/11/20 23 Pain in pelvis 03/11/2023 Scar of skin 03/11/2023 Estimated Date of Delivery Comme nts Yes 05/12/2025 Based on last me nstrual period of 08/05/2024 Encounters Date Type Department Care Team Description 04/26/2025 11:30 AM EDT Routine [facility] [address] [facility] [place] [address] Adonis Hester DO Third trimester ([facility]); 37 weeks gestation of ([facility]) 04/26/2025 Bamboo flowsheet [facility] OB [address] [place] [address] Adonis Hester DO 04/21/2025 Patient Outreach [facility] [address] [place] [address] Sylvia Villa LPN 04/21/2025 Clinisync Result Encounter [facility] External Department Unsolicited Sylvia Enriquez PA 04/19/2025 2:20 PM EDT Routine [facility] [address] [place] [address] Adonis Hester DO Third trimester ([facility]); Mood changes 04/19/2025 Bamboo flowsheet [facility] [address] [facility] [place] [address] Adonis Hester DO 04/19/2025 Travel 04/13/2025 Clinisync Result Encounter [facility] External Department Unsolicited Sylvia Enriquez PA 04/06/2025 2:50 PM EDT Routine [facility] [address] [facility] [place] [address] Sylvia Enriquez PA size inconsistent with dates ([facility]); 34 weeks gestation of ([facility]); Third trimester ([facility]); Excessive growth affecting management of in third trimester, single or unspecified fetus ([facility]) 04/06/2025 Clinisync Result Encounter [facility] External Department Unsolicited Adonis Hester, 04/05/2025 Travel 03/24/2025 Patient Outreach [facility] [address] [place] [address] Sylvia Villa LPN 03/23/2025 2:30 PM EDT Routine [facility] [address] [facility] [place] [address] Adonis Hester, Third trimester ([facility]); 32 weeks gestation of ([facility]); size inconsistent with dates ([facility]) 03/23/2025 Bamboo flowsheet [facility] [address] [place] [address] Adonis Hester, 03/23/2025 Travel 03/09/2025 2:30 PM EDT Routine [facility] [address] [place], [place] [address] [place] [address] Sylvia Enriquez PA Third trimester ([facility]); 30 weeks gestation of ([facility]) 03/09/2025 Bamboo flowsheet [facility] [address] [place] [address] Sylvia Enriquez PA 03/08/2025 Travel 03/01/2025 Patient Outreach [facility] [address] [place] [address] Sylvia Villa LPN 02/23/2025 2:50 PM EDT Routine [facility] [address] [place] [address] Adonis Hester, Third trimester ([facility]); 28 weeks gestation of ([facility]) 02/23/2025 Bamboo flowsheet [facility] [address] [place] [address] Adonis Hester DO 02/23/2025 Travel 02/21/2025 Results Follow-Up [facility] [address] [place] [address] Zainab Mcwilliams, EHS ENGINEER 02/21/2025 Telephone [facility] [address] [place] [address] Zianab Mcwilliams, EHS ENGINEER 02/17/2025 2:30 PM EDT Ancillary Procedure [facility] [address] [place] [address] Encounter for follow-up ultrasound of anatomy ([facility]) 02/17/2025 Clinisync Result Encounter [facility] External Department Unsolicited Amaya Steve NP 02/17/2025 Travel 01/31/2025 2:50 PM EDT Routine [facility] [address] [place] [address] Amaya Steve NP 25 weeks gestation of ([facility]); Second trimester ([facility]); Encounter for follow-up ultrasound of anatomy ([facility]); Diabetes mellitus screening 01/31/2025 Bamboo flowsheet [facility] [address] [place] [address] Amaya Steve NP 01/31/2025 Travel from Last [...] 8 oz) 04/26/2025 11:18 AM EDT Height 160 cm (5' 3 ) 03/09/2024 2:55 PM EDT Body Mass Index 30.03 03/09/2024 2:55 PM EDT Plan of Treatment Upcoming Encounters Date Type Department Care Team (Late st Contact Info) Description 05/04/2025 1:30 PM EDT Office Visit [facility] [address] [facility] [place] [address] Amaya Steve, PROCESS DEVELOPMENT TECHNICIAN [address] [place] [address] Health Maintenance Due Date Last Done Comments Influenza Vaccine (#1) 2025 Cervical Cancer Screening 11/30/2025 HPV/Cotest 11/30/2025 05/30/2023, 11/14/2020 Pap Smear 11/30/2025 11/30/2024, 05/30/2023, 02/0 06/2021 Procedures Procedure Name Priority Date/Time Associated Diagnosis Comments POCT URINALYSIS DIPSTICK Routine 04/26/2025 11:51 AM EDT Third trimester ([facility]) US OB BPP W NON-STRESS 04/21/2025 8:14 AM EDT US OB BPP W NON-STRESS 04/13/2025 4:17 PM EDT POCT URINALYSIS DIPSTICK Routine 04/06/2025 3:34 PM EDT Third trimester ([facility]) US OB GROWTH 04/06/2025 2:48 PM EDT POCT URINALYSIS DIPSTICK Routine 03/23/2025 2:44 PM EDT Third trimester ([facility]) POCT URINALYSIS DIPSTICK Routine 03/09/2025 3:02 PM EDT Third trimester ([facility]) POCT URINALYSIS DIPSTICK Routine 02/23/2025 5:25 PM EDT Third trimester ([facility]) US OB LIMITED 1+ FETUSES Routine 02/17/2025 2:51 PM EDT Encounter for follow-up ultrasound of anatomy ([facility]) GLUCOSE 1 HOUR Routine 02/17/2025 2:25 PM EDT ALL CBC WITH AUTO DIFF Routine 02/17/2025 2:25 PM EDT POCT URINALYSIS DIPSTICK Routine 01/31/2025 3:29 PM EDT 25 weeks gestation of ([facility]) Second trimester ([facility]) PAP SMEAR Routine 11/30/2024 12:00 AM EST THINPREP PAP AND HPV MRNA E6/E7 W/RFL HPV 16,18/45 Routine 05/30/2023 10:04 AM EDT Well woman exam with routine gynecological exam from Last 3 Months or Most Recently Relevant to Health Maintenance Results * (ABNORMAL) POCT urinalysis dipstick manually resulted (04/26/2025 11:51 AM EDT) Only the most recent of6 resultswithin the time period is included. Color, [...] Positive Urine 04/26/2025 11:5 1 AM EDT [facility] DO POINT OF CARE TEST ENTER/EDIT OR DERABLES Final Result * US OB BPP W NON-STRESS (04/21/2025 8:14 AM EDT) Only the most recent of2 resultswithin the time period is included. Anatomical Region Laterality Modality Other 04/21/2025 8:14 AM EDT Narrative 04/21/2025 8:17 [place] [address] Ultrasound Report Signed Patient: BREANA JOHN MR#: [id number] : 1990 Acct:[id number] Age/Sex: 34 / F ADM Date: 04/20/25 Loc: US Attending Dr: Sylvia Enriquez Ordering Physician: Sylvia Enriquez Date of Service: 04/20/25 Procedure(s): US OB BPP w non-stress Accession Number(s): [id number] cc: Sylvia Enriquez; Physician,Non-Staff MPaula The [place] [id number] Patient Name: BREANA JOHN MRN: [id number] date: 1990 Sex: F Assigned Patient Location: Current Patient Location: Accession/Order Number: [id number] Exam Date: 04/21/2025 08:12 Report Date: 04/21/2025 [...] Mckeon M.D. 04/21/2025 8:14 AM Dictation Location: [place] [address] Electronically authenticated by: [id number] Y Date: 04/21/2025 08:14 Dictated By: Christine Mckeon M.D. Signed By: 04/21/25816 DD/ 3 TD/TT: Development And Planning Engineer: Procedure Note Radiology, Radiologist, - 04/21/2025 The [place] [id number] Ultrasound Report Signed Patient: BREANA JOHN NMR#: [id number] : 1990Acct:[id number] Age/Sex: 34 / FADM Date: 04/20/25 Loc: US Attending Dr: Sylvia Enriquez Ordering Physician: Sylvia Enriquez Date of Service: 04/20/25 Procedure(s): OB BPP w non-stress Accession Number(s): [id number] cc: Sylvia Enriquez; Physician,Non-Staff M.DSarah [place] [address] Patient Name: BREANA JOHN MRN: [facility]:[id number] date: 1990 Sex: F Assigned Patient Location: US Current Patient Location: Accession/Order Number: [id number] Exam Date: 04/21/2025 08:12 Report Date: 04/21/2025 [...] is in normal range. Total score: 8/8 US/ OB BPP w non-stress IMPRESSION: NORMAL BIOPHYSICAL PROFILE. NUCHAL CORD. Impression dictated by: Christine Mckeon M.D. 04/21/2025 8:14 AM Dictation Location: [place] [address] Electronically authenticated by: [id number] Y Date: 508:14 Dictated By: Christine Mckeon M.D. Signed By:04/21/25816 DD/ 3 TD/TT: Development And Planning Engineer: us Sylvia [facility] Final Result * US OB GROWTH (04/06/2025 2:48 PM EDT) Anatomical Region Laterality Modality Other 04/06/2025 2:48 PM EDT Narrative 04/06/2025 2:51 [place] [address] Ultrasound Report Signed Patient: BREANA JOHN MR#: [id number] : 1990 Acct:[id number] Age/Sex: 34 / F ADM Date: 04/06/25 Loc: US Attending Dr: Adonis Hester D.O. Ordering Physician: Adonis Hester D.O. Date of Service: 04/06/25 Procedure(s): US OB growth Accession Number(s): [id number] cc: Adonis Hester D.O.; Physician,Non-Staff M.D. [place] [address] Patient Name: BREANA JOHN MRN: [id number] date: 1990 Sex: F Assigned Patient Location: US Current Patient Location: Accession/Order Number: [id number] Exam Date: 04/06/2025 14:46 Report Date: 04/06/2025 [...] Jr., D.O. 04/06/2025 2:48 PM Dictation Location: [place] [address] Electronically authenticated by: [id number] Y Date: 04/06/2025 14:48 Dictated By: Seferino Tay M.D. Signed By: 04/06/25 1451 DD/ 1448 TD/TT: Development And Planning Engineer: Procedure Note Radiology, Radiologist, - 04/06/2025 [place] [address] Ultrasound Report Signed Patient: BREANA JOHN NMR#: [id number] : 1990Acct:[id number] Age/Sex: 34 / FADM Date: 04/06/25 Loc: US Attending Dr: Adonis Hester D.O. Ordering Physician: Adonis Hester D.O. Date of Service: 04/06/25 Procedure(s): US OB growth Accession Number(s): [id number] cc: Adonis Hester D.O.; Physician,Non-Staff Augustine The [place] [id number] Patient Name: BREANA JOHN MRN: [id number]:[id number] date: 1990 Sex: F Assigned Patient Location: Current Patient Location: Accession/Order Number: [id number] Exam Date: 04/06/2025 14:46 Report Date: 04/06/2025 14:48 At the request of: ADONIS HESTER DO Procedure: US OB growth Growth ultrasound. Reason for exam: size and consistent with dates. COMPARISON: None. TECHNIQUE: Transabdominal imaging of the gravid uterus was obtained. FINDINGS: Single live intrauterine 35 weeks 6 days by anatomic measurements. Appropriate growth by dating. Estimated weight kw2588 g which is the 73rd percentile. ATMIR is normal at 11.83 cm. heartrate 144 bpm. position is cephalic at time of scanning. US/US OB growth IMPRESSION: Single live intrauterine 35 weeks 6 days by anatomic measurements. Appropriate growth by dating. Impression dictated by: Seferino Tay Jr., D.O. 04/06/2025 2:48 PM Dictation Location: [place] [address] Electronically authenticated by: [id number] Y Date: 4:48 Dictated By: Seferino Tay M.D. Signed By:04/06/25 1451 DD/ 1448 TD/TT: Development And Planning Engineer: us Adonis Mir DO [facility] Final Result * US [...] PHD at 18-Feb-2025 10:23:07 AM [facility] Procedure Note Renuka Black MD - [...] signed by RENUKA BLACK II, MD, PHD [id number] 10:23:07 AM [facility] us Amaya Steve PROCESS DEVELOPMENT TECHNICIAN IMG OB US PROCEDURES Final Re sult * GLUCOSE 1 HOUR (02/17/2025 2:25 PM EDT) GLUCOSE 1 HOUR 109 <130 mg/dL [facility] 02/17/2025 2:25 PM EDT 02/17/2025 2:25 PM EDT Narrative [facility] - 02/17/2025 3:12 PM EDT us Amaya Steve PROCESS DEVELOPMENT TECHNICIAN LAB BLOOD ORDERABLES Final Re sult [facility] * (ABNORMAL) ALL CBC WITH AUTO [...] - 02/17/2025 2:42 PM EDT Amaya Steve PROCESS DEVELOPMENT TECHNICIAN [facility] Final Result Performing Organization Address [facility]/State/ZIP Co de Phone Number [facility] TB * Pap Smear (11/30/2024 12:00 AM EST) Swab Cervical swab / Unknown Sylvia HEADLEY LAB CYTOLOGY ORDERABLES Final Re sult Performing Organization Address City/[facility]/ZIP Co de Phone Number EXTERNAL LAB * THINPREP PAP AND HPV MRNA E6/E7 W/RFL HPV 16,18/45 (05/30/2023 10:04 AM EDT) Sylvia HEADLEY LAB BLOOD ORDERABLES Final Resul t EXTERNAL LAB from Last 3 Months or Most Recently Relevant to Health Maintenance Insurance [employer] Care Teams Landscape Specialist Relationship Specialty Start Date End Date Sylvia Enriquez PA [address] [place] [address] [place] [address] PCP - [facility] 07/06/24
[2025-04-26 12:01] VITALS: BP 100/56; PULSE 66
== END 2025-04-26 13:14 | disposition home or self-care (01) ==
PROVIDERS: Admitting Provider Obstetrics & Gynecology; Visit Provider Obstetrics & Gynecology
DX: O36.8130 Decreased fetal movements, third trimester, not applicable or unspecified (principal); Z3A.37 37 weeks gestation of pregnancy
CPT/HCPCS: 76818; G0378; G0379

== ENCOUNTER 2025-04-27 09:47 | Inpatient (IN) | payer OTHER, SELFPAY ==
[2025-04-27] VITALS (29 sets, daily range): BP systolic 87–120; BP diastolic 38–67; PULSE 52–65; TEMP 36.6–36.9; O2SAT 96–100
--- OUTSIDE RECORDS SUMMARY | 2025-04-27 10:07 | XMS_ITS | CCD ---
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 Name Role Phone ROBBIN Garcia Primary Care Provider Dominic Hester Attending Provider [phone] Dominic Hester Attending Provider RADHA Camarillo Emergency Provider [phone] ROBBIN Garcia Primary Care Provider RADHA Camarillo [...] Jimenez Emergency Provider Unavailable Primary Care Provider UnavailNahun Chung Unavailable NO FAMILY, PHYSICIAN Primary Care [...] Primary Care Unavailable DOMINIC HESTER Attending Unavailable NAHUN ROMERO Attending Unavailable DOMINIC HESTER Attending Unavailable HECTOR STEVE Attending Unavailable HECTOR STEVE Referring Unavailable DOMINIC HESTER Attending Unavailable MIR, DOMINIC Attending Unavailable MIR, DOMINIC Attending Unavailable NAHUN ROMERO Attending Unavailable MIR, DOMINIC Attending Unavailable NAHUN ROMERO Attending Unavailable DOMINIC HESTER Referring Unavailable [...] day Active citalopram 20 mg oral tablet (5 sources) Serotonin Reuptake Inhibitor Start: 04-19-2025 End: [...] tablet Indications: confirmed by positive blood test ([facility]) , Nausea Take 1 tablet (4 mg) by mouth every 6 (six) hours if needed for nausea or vomiting for up to 30 doses 30 tablet 2 09/09/2024 Active polysaccharide iron complex 391 mg oral capsule (19 sources) Start: 02-21-2025 End: 02-21-2026 take 1 capsule by mouth once daily iron polysaccharides (ProFe) 391.3 (180 Fe) MG capsule Indications: Low iron Take 1 capsule (391.3 mg) by mouth Daily 30 capsule 11 02/21/2025 02/21/2026 Active Vit No.353-Qklp-Ugwqk ( Vitamin) 27 mg iron- 800 mcg tablet (7 sources) Start: 01-03-2023 take 1 tablet by mouth once daily Vit No.839-Amie-Zemoy ( Vitamin) 27 mg iron- 800 mcg tablet Active 1 TAB PO Daily January 03, 2023 12:00am Start: 01-03-2023 Vit N o.016-Wkdx-Evatc ( Vitamin) 27 mg iron- 800 mcg tablet Active TAB TABLET January 02, 2023 11:00pm Start: 01-03-2023 Vit N o.290-Srqn-Nxjxc ( Vitamin) 27 mg iron- 800 mcg tablet Active TAB TABLET January 03, 2023 12:00am Vit-Fe Fumarate-FA ( Vitamins) 28-0.8 MG tablet (20 sources) Start: 09-09-2024 End: 09-09-2025 take 1 tablet by mouth once daily Vit-Fe Fumarate-FA ( Vitamins) 28-0.8 MG tablet Indications: confirmed by positive blood test ([facility]) Take 1 tablet by mouth Daily [...] hours as needed for pain Hydrocodone-Acetami nophen ([place]) 5-325 mg tablet Discontinued 1 TAB PO EVERY 4-6 HOURS as needed for pain 09 07May 14, 2019 June 09, 2019 9:24pm Start: 06-25-2017 End: 01-31-2018 take 1 tablet by mouth every four to six hours as needed for pain Hydrocodone-Acetaminophen ([place]) 5-325 mg tablet Discontinued 1 TAB PO EVERY 4-6 HOURS as needed for pain June 25, 2017 January 31, 2018 4:07pm [id number] 200 actuat albuterol 0.09 mg/actuat metered dose [...] Onset: 01-06-2023 Other aftercare (1 source) 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 Ordering Physician: Dominic Hester D.O. Date of Service: 04/26/25 Procedure(s): US OB BPP w non-stress Accession Number(s): [id number] cc: Dominic Hester D.O.; Physician,Non-Staff M.DSarah [place] [id number] Patient Name: BREANA CASAS MRN: [id number] date: 1990 Sex: F Assigned Patient Location: [facility] Current Patient Location: Accession/Order Number: [id number] Exam Date: 04/26/2025 13:20 Report Date: 04/26/2025 13:21 At the request of: DOMINIC HESTER DO Procedure: US OB BPP w non-stress Biophysical profile. Reason for exam: Decreased movements COMPARISON: BPP 04/20/2025 TECHNIQUE: Transabdominal imaging of the gravid uterus was obtained. 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 TAMIR is normal at 13.4 cm. heart rate 161 bpm. US/US OB BPP w non-stress IMPRESSION: BPP 8 out of 8. Impression dictated by: Seferino Tay Jr., D.O. 04/26/2025 1:21 PM Dictation Location: [place] [address] Electronically authenticated by: [id number] Y Date: 04/26/2025 13:21 Dictated By: Seferino Tay M.D. Signed By: 04/26/25 1323 DD/ 1321 TD/TT: Distribution Designer: [facility] Radiology, Radiologist, MD - 04/26/2025 [place] [address] Ultrasound Report Signed Patient: BREANA CASAS MR#: [id number] : 1990 Acct:[id number] Age/Sex: 34 / F ADM Date: Loc: [facility] 251-[address]: Dominic Hester D.O. Ordering Physician: Dominic Hester D.O. Date of Service: 04/26/25 Procedure(s): US OB BPP w non-stress Accession Number(s): [id number] cc: Dominic Hester D.O.; Physician,Non-Staff [place] [address] Patient Name: BREANA CASAS MRN: [facility]:[id number] date: 1990 Sex: F Assigned Patient Location: [facility] Current Patient Location: Accession/Order Number: [id number] Exam Date: 04/26/2025 13:20 Report Date: 04/26/2025 13:21 At the request of: DOMINIC HESTER DO Procedure: US OB BPP w non-stress Biophysical profile. Reason for exam: Decreased movements COMPARISON: BPP 04/20/2025 TECHNIQUE: Transabdominal imaging of the gravid uterus was obtained. 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 TAMIR is normal at 13.4 cm. heart rate 161 bpm. US/US OB BPP w non-stress IMPRESSION: BPP 8 out of 8. Impression dictated by: Seferino Tay Jr., D.O. 04/26/2025 1:21 PM Dictation Location: [place] [address] Electronically authenticated by: [id number] Y Date: 04/26/2025 13:21 Dictated By: Seferino Tay M.D. Signed By: 04/26/25 1323 DD/ 1321 TD/TT: Distribution Designer: [facility] Radiology Study observation (narrative) [facility] US OB BPP W NON-STRESS Ordered By: Radiologist Radiology on 04-26-2025 [facility] Work Phone: US OB BPP W NON-STRESS on 04-21-2025 [place] [id number] Ultrasound Report Signed Patient: BREANA CASAS MR#: [id number] : 1990 Acct:[id number] Age/Sex: 34 / F ADM Date: 04/20/25 Loc: US Attending Dr: Nahun Romero Ordering Physician: Nahun Romero Date of Service: 04/20/25 Procedure(s): US OB BPP w non-stress Accession Number(s): [id number] cc: Nahun Romero; Physician,Non-Staff M.[place] [address] [address] Patient Name: BREANA CASAS MRN: [id number] date: 1990 Sex: F Assigned Patient Location: US Current Patient Location: Accession/Order Number: [id number] Exam Date: 04/21/2025 08:12 Report Date: 04/21/2025 08:14 At the request of: NAHUN ROMERO Procedure: US OB BPP w non-stress [...] Mckeon M.D. 04/21/2025 8:14 AM Dictation Location: [place] [address] Electronically authenticated by: [id number] Y Date: 04/21/2025 08:14 Dictated By: Christine Mckeon M.D. Signed By: 04/21/25816 DD/ 3 TD/TT: Distribution Designer: [facility] Radiology, Radiologist, MD - 04/21/2025 [place] [address] Ultrasound Report Signed Patient: BREANA CASAS MR#: [id number] : 1990 Acct:[id number] Age/Sex: 34 / F ADM Date: 04/20/25 Loc: US Attending Dr: Nahun Romero Ordering Physician: Nahun Romero Date of Service: 04/20/25 Procedure(s): US OB BPP w non-stress Accession Number(s): [id number] cc: Nahun Romero; Physician,Non-Staff [place] The [place] [id number] Patient Name: BRAENA CASAS MRN: [facility]:[id number] date: 1990 Sex: F Assigned Patient Location: Current Patient Location: Accession/Order Number: [id number] Exam Date: 04/21/2025 08:12 Report Date: 04/21/2025 08:14 At the request of: NAUHN ROMERO Procedure: US OB BPP w non-stress [...] Mckeon M.D. 04/21/2025 8:14 AM Dictation Location: [place] [address] Electronically authenticated by: [id number] Y Date: 04/21/2025 08:14 Dictated By: Christine Mckeon M.D. Signed By: 04/21/25816 DD/ 3 TD/TT: Distribution Designer: [facility] Radiology Study observation (narrative) [facility] US OB BPP W NON-STRESS Ordered By: Radiologist Radiology on 04-21-2025 [facility] Work Phone: OB BPP W NON-STRESS on 04-13-[address] [address] Ultrasound Report Signed Patient: BREANA CASAS MR#: [id number] : 1990 Acct:[id number] Age/Sex: 34 / F ADM Date: Loc: US Attending Dr: Nahun Romero Ordering Physician: Nahun Romero Date of Service: 04/13/25 Procedure(s): US OB BPP w non-stress Accession Number(s): [id number] cc: Nahun Romero; Physician,Non-Staff MPaula The [address] [address] Patient Name: BREANA CASAS MRN: [id number] date: 1990 Sex: F Assigned Patient Location: [place] Current Patient Location: [place] Accession/Order Number: [id number] Exam Date: 04/13/2025 16:16 Report Date: 04/13/2025 16:17 At the request of: NAHUN ROMERO Procedure: US OB BPP w non-stress [...] Burleson M.D. 04/13/2025 4:17 PM Dictation Location: [place] [address] Electronically authenticated by: [id number] Y Date: 04/13/2025 16:17 Dictated By: Tanner Burleson D.O. Signed By: 04/13/259 DD/ 16 TD/TT: Distribution Designer: [facility] Radiology, Radiologist, - 04/13/2025 [place] [address] Ultrasound Report Signed Patient: BREANA CASAS MR#: [id number] : 1990 Acct:[id number] Age/Sex: 34 / F ADM Date: Loc: US Attending Dr: Nahun Romero Ordering Physician: Nahun Romero Date of Service: 04/13/25 Procedure(s): US OB BPP w non-stress Accession Number(s): [id number] cc: Nahun Romero; Physician,Non-Staff [place] The [place] [id number] Patient Name: BREANA CASAS MRN: [facility]:[id number] date: 1990 Sex: F Assigned Patient Location: US Current Patient Location: [facility] Accession/Order Number: [id number] Exam Date: 04/13/2025 16:16 Report Date: 04/13/2025 16:17 At the request of: NAHUN ROMERO Procedure: US OB BPP w non-stress [...] Burleson M.D. 04/13/2025 4:17 PM Dictation Location: [place] [address] Electronically authenticated by: [id number] Y Date: 04/13/2025 16:17 Dictated By: Tanner Burleson D.O. Signed By: 04/13/251618 DD/ 16 TD/TT: Distribution Designer: [facility] Radiology Study observation (narrative) [facility] US OB BPP W NON-STRESS Ordered By: Radiologist Radiology on 04-13-2025 [facility] [employer] Work Phone: US OB GROWTHon 04-06-2025 [place] [address] Ultrasound Report Signed Patient: BREANA CASAS MR#: [id number] : 1990 Acct:[id number] Age/Sex: 34 / F ADM Date: 04/06/25 Loc: US Attending Dr: Dominic Hester D.O. Ordering Physician: Dominic Hester D.O. Date of Service: 04/06/25 Procedure(s): US OB growth Accession Number(s): [id number] cc: Dominic Hester D.O.; Physician,Non-Staff [place] [facility] [place] [id number] Patient Name: BREANA CASAS MRN: [id number] date: 1990 Sex: F Assigned Patient Location: US Current Patient Location: US Accession/Order Number: [id number] Exam Date: 04/06/2025 14:46 Report Date: 04/06/2025 [...] Jr., D.O. 04/06/2025 2:48 PM Dictation Location: [place] [address] Electronically authenticated by: [id number] Y Date: 04/06/2025 14:48 Dictated By: Seferino Tay M.D. Signed By: 04/06/25 1451 DD/ 1448 TD/TT: Distribution Designer: [facility] Radiology, Radiologist, - 04/06/2025 [place] [address] Ultrasound Report Signed Patient: BREANA CASAS MR#: [id number] : 1990 Acct:[id number] Age/Sex: 34 / F ADM Date: 04/06/25 Loc: US Attending Dr: Dominic Hester D.O. Ordering Physician: Dominic Hester D.O. Date of Service: 04/06/25 Procedure(s): US OB growth Accession Number(s): [id number] cc: Dominic Hester D.O.; Physician,Non-Staff M.[place] The [place] [id number] Patient Name: BREANA CASAS MRN: [facility]:[id number] date: 1990 Sex: F Assigned Patient Location: US Current Patient Location: US Accession/Order Number: [id number] Exam Date: 04/06/2025 14:46 Report Date: 04/06/2025 [...] Jr., D.O. 04/06/2025 2:48 PM Dictation Location: [email or web address] Electronically authenticated by: [id number] Y Date: 04/06/2025 14:48 Dictated By: Seferino Tay M.D. Signed By: 04/06/25 1452 DD/ 1448 TD/TT: Distribution Designer: [facility] Radiology Study observation (narrative) [facility] OB GROWTHOrdered By: Shane ologvicente Radiology on 04-06-2025 [facility] Work Phone: Urinalysis macro (dipstick) panel (U)on 04-06-2025 Bilirubin, UA Negative Negative - 4(70) +++ mg/dL [facility] Blood, UA Negative Negative - 50 Brent/mcL [facility] Clarity, UA Clear [facility] Color, UA Yellow [facility] Glucose, UA Negative Negative - 1999(110) ++++ mg/dL [facility] Interpretation and review of laboratory results Normal [facility] Ketones, UA Negative Negative - 160(16) ++++ mg/dL [facility] Leukocytes, UA Positive Negative - 500+++ Kae/mcL [facility] Comment on above: small Nitrite, UA Negative Negative - Positive [facility] pH, UA 7 5 - 9 [facility] Protein, UA Negative Negative - 1999(20) ++++ mg/dL [facility] Spec Grav, UA 1.005 1 - 1.03 [facility] Urobilinogen, UA 0.2 0.2 - 12 mg/dL [facility] Urinalysis macro (dipstick) panel (U)on 03-23-2025 Bilirubin, UA Negative Negative - 4(70) +++ mg/dL [facility] Blood, UA Negative Negative - 50 Brent/mcL [facility] Clarity, UA Clear [facility] Color, UA Yellow [facility] Glucose, UA Negative Negative - 1999(110) ++++ mg/dL [facility] Interpretation and review of laboratory results Normal [facility] Ketones, UA Positive Negative - 160(16) ++++ mg/dL [facility] Comment on above: 15 Leukocytes, UA Negative Negative - 500+++ Kae/mcL [facility] Nitrite, UA Negative Negative - Positive [facility] pH, UA 7 5 - 9 [facility] Protein, UA Negative Negative - 1999(20) ++++ mg/dL [facility] Spec Grav, UA 1.015 1 - 1.03 [facility] Urobilinogen, UA 0.2 0.2 - 12 mg/dL [facility] Urinalysis macro (dipstick) panel (U)on 03-09-2025 Bilirubin, UA Negative Negative - 4(70) +++ mg/dL [facility] Blood, UA Negative Negative - 50 Brent/mcL [facility] Clarity, UA Clear [facility] Color, UA Yellow [facility] Glucose, UA Negative Negative - 1999(110) ++++ mg/dL [facility] Interpretation and review of laboratory results Abnormal [facility] Ketones, UA Negative Negative - 160(16) ++++ mg/dL [facility] Leukocytes, UA Positive Negative - 500+++ Kae/mcL [facility] Comment on above: small Nitrite, UA Negative Negative - Positive [facility] pH, UA 7 5 - 9 [facility] Protein, UA Negative Negative - 1999(20) ++++ mg/dL [facility] Spec Grav, UA 1.015 1 - 1.03 [facility] Urobilinogen, UA 0.2 0.2 - 12 mg/dL [facility] Urinalysis macro (dipstick) panel (U)on 02-23-2025 Bilirubin, UA Negative Negative - 4(70) +++ mg/dL [facility] Blood, UA Negative Negative - 50 Brent/mcL [facility] Clarity, UA Clear [facility] Color, UA Yellow [facility] Glucose, UA Negative Negative - 1999(110) ++++ mg/dL [facility] Interpretation and review of laboratory results Normal [facility] Ketones, UA Negative Negative - 160(16) ++++ mg/dL [facility] Leukocytes, UA Negative Negative - 500+++ Kae/mcL [facility] Nitrite, UA Negative Negative - Positive [facility] pH, UA 6.5 5 - 9 [facility] Protein, UA Negative Negative - 2000(20) ++++ mg/dL [facility] Spec Grav, UA 1.01 1 - 1.03 [facility] Urobilinogen, UA 0.2 0.2 - 12 mg/dL [facility] ALL CBC WITH AUTO DIFFon BASOPHILS ABSOLUTE AUTO 0 N [facility] Basophils/100 WBC (Bld) 0.2 % 0.2 - 2.0 % [facility] Eosinophils/100 WBC (Bld) 2.8 % 0.9 - 7.0 % [facility] Erythrocyte distribution width (RBC) [Ratio] 12.9 % 11.0 - 15.0 % [facility] Hematocrit (Bld) [Volume fraction] 30.5 % Low 36.0 - 48.0 % [facility] Hemoglobin (Bld) [Mass/Vol] 10.5 g/dL Low 12.0 - 16.0 g/dL [facility] IMMATURE GRANULOCYTES ABS AUTO 0.02 [facility] Immature granulocytes/100 WBC (Bld) 0.3 % 0.0 - 0.5 % [facility] Interpretation and review of laboratory results Abnormal [facility] LYMPHOCYTES ABSOLUTE AUTO 0.9 Low [facility] Lymphocytes/100 WBC (Bld) 15.7 % Low 20.5 - 60.0 % [facility] MCH (RBC) [Entitic mass] 33.2 pg 26.7 - 34.0 pg [facility] MCHC (RBC) [Mass/Vol] 34.4 g/dL 29.9 - 35.2 g/dL [facility] MCV (RBC) [Entitic vol] 96.5 fL 81.0 - 99.0 fL [facility] MONOCYTES ABSOLUTE AUTO 0.4 N [facility] Monocytes/100 WBC (Bld) 7.7 % 1.7 - 12.0 % [facility] NEUTROPHILS ABSOLUTE AUTO 4.2 [facility] Neutrophils/100 WBC (Bld) 73.3 % 43.0 - 75.0 % [facility] Platelet mean volume (Bld) [Entitic vol] 9.6 fL 9.5 - 13.5 fL [facility]H EO # 0.2 [facility] PLT 167 [facility] RBC 3.16 Low [facility] WBC 5.7 [facility] US OB LIMITED 1+ FETUSESon 0 02-17-2025 US [...] PHD at 18-Feb-2025 10:23:07 AM [facility] Normal Not Available Comment on above: Order Comment: US OB INCOMPLETE ANATOMY Estimated Date of Delivery: 05/12/25 Gestational Age as of 01/31/2025: 25w4d Alanine aminotransferase [En zymatic activity/volume] in Serum or PlasmaOrdered By: Malcolm Gaston on 02-10-2025 ALT [Catalytic activity/Vol] Alanine aminotransferase [Enzymatic activity/volume] in Serum or Plasma 7-52 [facility] Albumin [Mass/volume] in Ser um or Plasma by Bromocresol green (BCG) dye binding methoOrdered By: Malcolm Gaston on 02-10-2025 Albumin BCG dye [Mass/Vol] Albumin [Mass/volume] in Serum or Plasma by Bromocresol green (BCG) dye binding metho 3.5-5.7 [facility] Alkaline phosphatase [Enzyma tic activity/volume] in Serum or PlasmaOrdered By: Malcolm Gaston on 02-10-2025 ALP [Catalytic activity/Vol] Alkaline phosphatase [Enzymatic activity/volume] in Serum or Plasma 34-104 [facility] Appearance of UrineOrdered B y: Malcolm Gaston on 02-10-2025 Appearance (U) Urine appearance Clear [facility] Aspartate aminotransferase [ Enzymatic activity/volume] in Serum or PlasmaOrdered By: Malcolm Gaston on 02-10-2025 AST [Catalytic activity/Vol] Aspartate aminotransferase [Enzymatic activity/volume] in Serum or Plasma 13-39 [facility] Basic Metabolic Panelon Anion gap [Moles/Vol] 7.9 mmol/L Normal 6.0-15.0 [facility] Comment on above: Performed By: #### C BC, HEPATIC, BMP, LIPASE #### [address] Calcium [Mass/Vol] 8.4 mg/dL Low 8.6-10.3 The [facility] Comment on above: Performed By: #### C BC, HEPATIC, BMP, LIPASE #### [address] Chloride [Moles/Vol] 107 mmol/L Normal 98-107 [facility] Comment on above: Performed By: #### C BC, HEPATIC, BMP, LIPASE #### [address] CO2 [Moles/Vol] 24.8 mmol/L Normal 21.0-31.0 The [facility] Comment on above: Performed By: #### C BC, HEPATIC, BMP, LIPASE #### [address] Creatinine [Mass/Vol] 0.56 mg/dL Low 0.60-1.20 [facility] Comment on above: Performed By: #### C BC, HEPATIC, BMP, LIPASE #### [place] [address] [place] Creatinine Clr Calc Pharmacy 136.70 Normal [facility] Comment on above: Performed By: #### C BC, HEPATIC, BMP, LIPASE #### [place] [address] [place] GFR/1.73 sq M.predicted MDRD (S/P/Bld) [Vol rate/Area] mL/min/{1.73_m2} Normal [facility] Comment on above: Performed By: #### C BC, HEPATIC, BMP, LIPASE #### [facility] [address] Glucose [Mass/Vol] 75 mg/dL Normal 70-100 [facility] Comment on above: Result Comment: [place] Glucose Reference Range is dependent on time and content of last meal. Glucose of more than 200 mg/dL in a nonstressed, ambulatory subject supports the diagnosis of Diabetes Mellitus. ADA recommended reference range Performed By: #### C BC, HEPATIC, BMP, LIPASE #### [facility] [address] Potassium [Moles/Vol] 3.7 mmol/L Normal 3.5-5.1 [facility] Comment on above: Performed By: #### C BC, HEPATIC, BMP, LIPASE #### [facility] [address] Sodium [Moles/Vol] 136 mmol/L Normal 136-145 [facility] Comment on above: Performed By: #### C BC, HEPATIC, BMP, LIPASE #### [address] Urea nitrogen [Mass/Vol] 6 mg/dL Low 7-25 [facility] Comment on above: Performed By: #### C BC, HEPATIC, BMP, LIPASE #### [place] [address] [place] Basophils Auto (Bld) [#/Vol] Ordered By: Malcolm Gaston on 02-10-2025 Basophils (Bld) [#/Vol] Automated basoph il count 0.0-0.2 [facility] Basophils/100 WBC Auto (Bld) Ordered By: Malcolm Gaston on 02-10-2025 Basophils/100 WBC (Bld) Automated basophil % . [facility] Bilirubin Test strip Ql (U)O rdered By: Malcolm Gaston on 02-10-2025 Bilirubin Ql (U) Bilirubin.total [Presence] in Urine by Test strip Negative [facility] Bilirubin.direct [Mass/volum e] in Serum or PlasmaOrdered By: Malcolm Gaston on 02-10-2025 Bilirubin.direct [Mass/Vol] Bilirubin.direct [Mass/volume] in Serum or Plasma 0.03-0.18 [facility] Bilirubin.total [Mass/volume ] in Serum or PlasmaOrdered By: Malcolm Gaston on 02-10-2025 Bilirubin [Mass/Vol] Bilirubin.total [Mass/volume] in Serum or Plasma 0.3-1.0 [facility] Calcium [Mass/volume] in Ser um or PlasmaOrdered By: Malcolm Gaston on 02-10-2025 Calcium [Mass/Vol] Calcium [Mass/volume] in Serum or Plasma Low 8.6-10.3 [facility] Carbon dioxide, total [Moles /volume] in Serum or PlasmaOrdered By: Malcolm Gaston on 02-10-2025 CO2 [Moles/Vol] Carbon dioxide, total [Moles/volume] in Serum or Plasma 21.0-31.0 [facility] Chloride [Moles/volume] in S mehdi or PlasmaOrdered By: Malcolm Gaston on 02-10-2025 Chloride [Moles/Vol] Chloride [Moles/volume] in Serum or Plasma 98-107 [facility] Color Auto (U)Ordered By: Fang Gaston on 02-10-2025 Color (U) Color of Urine by Auto Yellow [facility] Complete Blood Count Auto Di ffon 02-10-2025 Basophils (Bld) [#/Vol] 0.0 10*3/uL Normal 0.0-0.2 [facility] Comment on above: Result Comment: PERF ORMED BY: [facility] [facility] [address] [facility] [place] [address] PATHOLOGIST TEENAGE PROGRAM DIRECTOR BRANDI GONZALEZ M.D. Performed By: #### C BC, HEPATIC, BMP, LIPASE #### [facility] [address] [place] [address] [place] Basophils/100 WBC (Bld) 0.5 % Normal . T he [facility] Comment on above: Performed By: #### C BC, HEPATIC, BMP, LIPASE #### [facility] [address] [place] [address] [place] Eosinophils (Bld) [#/Vol] 0.2 10*3/uL Normal 0.0-0.45 [facility] Comment on above: Performed By: #### C BC, HEPATIC, BMP, LIPASE #### [address] Eosinophils/100 WBC (Bld) 3.8 % Normal . The [facility] Comment on above: Performed By: #### C BC, HEPATIC, BMP, LIPASE #### [address] Erythrocyte distribution width (RBC) [Ratio] 13.1 % Normal 11.9-15.3 The [facility] Comment on above: Performed By: #### C BC, HEPATIC, BMP, LIPASE #### [address] Hematocrit (Bld) [Volume fraction] 32.0 % Low 34.0-46.4 The [facility] Comment on above: Performed By: #### C BC, HEPATIC, BMP, LIPASE #### [address] Hemoglobin (Bld) [Mass/Vol] 11.3 g/dL Low 11.8-15.4 The [facility] Comment on above: Performed By: #### C BC, HEPATIC, BMP, LIPASE #### [address] Lymphocytes (Bld) [#/Vol] 0.9 10*3/uL Low 1.00-4.8 The [facility] Comment on above: Performed By: #### C BC, HEPATIC, BMP, LIPASE #### [address] Lymphocytes/100 WBC (Bld) 16.5 % Normal . The [facility] Comment on above: Performed By: #### C BC, HEPATIC, BMP, LIPASE #### [address] MCH (RBC) [Entitic mass] 33.9 pg Normal 24.7-34.3 [facility] Comment on above: Performed By: #### C BC, HEPATIC, BMP, LIPASE #### [address] MCV (RBC) [Entitic vol] 95.5 fL Normal 80-100 [facility] Comment on above: Performed By: #### C BC, HEPATIC, BMP, LIPASE #### [address] Mean Corpuscular HGB Conc 35.5 g/dL High 32.0-35.0 The [facility] Physician [facility] Comment on above: Performed By: #### C BC, HEPATIC, BMP, LIPASE #### [address] Monocytes (Bld) [#/Vol] 0.4 10*3/uL Normal 0.0-0.8 The [facility] Comment on above: Performed By: #### C BC, HEPATIC, BMP, LIPASE #### [address] Monocytes/100 WBC (Bld) 20.48 % High 0.00-20.00 [facility]ician [facility] Comment on above: Result Comment: For adults in ED, MDW > 20.0 may be associated with a higher risk of sepsis during the first 12 hrs of hospital admission Performed By: #### C BC, HEPATIC, BMP, LIPASE #### [address] Monocytes/100 WBC (Bld) 7.7 % Normal . [facility] Comment on above: Performed By: #### C BC, HEPATIC, BMP, LIPASE #### [address] Neutrophils (Bld) [#/Vol] 3.7 10*3/uL Normal 1.8-7.7 The [facility] Comment on above: Performed By: #### C BC, HEPATIC, BMP, LIPASE #### [address] Neutrophils/100 WBC (Bld) 71.5 % Normal . The [facility] Comment on above: Performed By: #### C BC, HEPATIC, BMP, LIPASE #### [address] NRBC% 0.0 /100{WBC} Normal 0-0.5 [facility] Comment on above: Performed By: #### C BC, HEPATIC, BMP, LIPASE #### [address] Platelet mean volume (Bld) [Entitic vol] 7.9 fL Normal 6.3-10.7 [facility] Comment on above: Performed By: #### C BC, HEPATIC, BMP, LIPASE #### [address] Platelets (Bld) [#/Vol] 203 10*3/uL Normal 150-450 The [facility] Comment on above: Performed By: #### C BC, HEPATIC, BMP, LIPASE #### [address] RBC (Bld) [#/Vol] 3.35 10*6/uL Low 3.60-5.00 [facility] Comment on above: Performed By: #### C BC, HEPATIC, BMP, LIPASE #### [address] WBC (Bld) [#/Vol] 5.2 10*3/uL Normal 3.8-11.6 The [facility] Comment on above: Performed By: #### C BC, HEPATIC, BMP, LIPASE #### [address] Creatinine [Mass/volume] in Serum or PlasmaOrdered By: Malcolm Gaston on 02-10-2025 Creatinine [Mass/Vol] Creatinine [Mass/volume] in Serum or Plasma Low 0.60-1.20 [facility] Dipstick and Microscopicon 0 02-10-2025 Appearance (U) Clear Normal Clear The [facility] Comment on above: Order Comment: Name Collection Type:: Clean-Voided Midstream Performed By: #### C BC, HEPATIC, BMP, LIPASE #### [address] Bacteria,Urine Rare Normal None Seen The [facility] Comment on above: Order Comment: Name Collection Type:: Clean-Voided Midstream Performed By: #### C BC, HEPATIC, BMP, LIPASE #### [place] [address] [place] Bilirubin,Urine Negative Normal Negative The [facility] Comment on above: Order Comment: Name Collection Type:: Clean-Voided Midstream Performed By: #### C BC, HEPATIC, BMP, LIPASE #### [address] Color (U) Light-Yellow Normal Yellow The [facility] Comment on above: Order Comment: Name Collection Type:: Clean-Voided Midstream Performed By: #### C BC, HEPATIC, BMP, LIPASE #### [address] Glucose Ql (U) Normal Normal Normal The [facility] Comment on above: Order Comment: Name Collection Type:: Clean-Voided Midstream Performed By: #### C BC, HEPATIC, BMP, LIPASE #### [place] [address] [place] Hyaline Casts,Urine None Normal 0-8 [facility] Comment on above: Order Comment: Name Collection Type:: Clean-Voided Midstream Performed By: #### C BC, HEPATIC, BMP, LIPASE #### [address] Ketones Ql (U) 1+ High Negative The [facility] Comment on above: Order Comment: Name Collection Type:: Clean-Voided Midstream Performed By: #### C BC, HEPATIC, BMP, LIPASE #### [address] Leukocyte esterase Test strip Ql (U) 2+ High Negative The [facility] Comment on above: Order Comment: Name Collection Type:: Clean-Voided Midstream Performed By: #### C BC, HEPATIC, BMP, LIPASE #### [place] [address] [place] Mucus,Urine 2+ Critically abnormal The [facility] Comment on above: Order Comment: Name Collection Type:: Clean-Voided Midstream Result Comment: PERF ORMED BY: [place] [address] PATHOLOGIST TEENAGE PROGRAM DIRECTOR BRANDI GONZALEZ M.D. Performed By: #### C BC, HEPATIC, BMP, LIPASE #### [address] Nitrite,Urine Negative Normal Negative The [facility] Comment on above: Order Comment: Name Collection Type:: Clean-Voided Midstream Performed By: #### C BC, HEPATIC, BMP, LIPASE #### [address] Occult Blood,Urine Negative Normal Negative The [facility] Comment on above: Order Comment: Name Collection Type:: Clean-Voided Midstream Result Comment: PERF ORMED BY: [place] [address] PATHOLOGIST TEENAGE PROGRAM DIRECTOR BRANDI GONZALEZ M.D. Performed By: #### C BC, HEPATIC, BMP, LIPASE #### [address] pH (U) 6.5 [pH] Normal 5.0-9.0 The [facility] Comment on above: Order Comment: Name Collection Type:: Clean-Voided Midstream Performed By: #### C BC, HEPATIC, BMP, LIPASE #### [address] Protein,Urine Negative Normal Negative The [facility] Comment on above: Order Comment: Name Collection Type:: Clean-Voided Midstream Performed By: #### C BC, HEPATIC, BMP, LIPASE #### [address] RBC,Urine 1-2 Normal 0-4 The [facility] Comment on above: Order Comment: Name Collection Type:: Clean-Voided Midstream Performed By: #### C BC, HEPATIC, BMP, LIPASE #### [address] Specificy [place],Urine 1.018 Normal 1.001-1.030 [facility] Comment on above: Order Comment: Name Collection Type:: Clean-Voided Midstream Performed By: #### C BC, HEPATIC, BMP, LIPASE #### [facility] [address] Squamous Epithelial Cell,Urine 5-9 High 0-2 The [facility] Comment on above: Order Comment: Name Collection Type:: Clean-Voided Midstream Performed By: #### C BC, HEPATIC, BMP, LIPASE #### [facility] [address] Urobilinogen,Urine Normal Normal Normal The [facility] Comment on above: Order Comment: Name Collection Type:: Clean-Voided Midstream Performed By: #### C BC, HEPATIC, BMP, LIPASE #### [facility] [address] WBC,Urine 3-4 Normal 0-4 The [facility] Comment on above: Order Comment: Name Collection Type:: Clean-Voided Midstream Performed By: #### C BC, HEPATIC, BMP, LIPASE #### [facility] [address] Eosinophils Auto (Bld) [#/Vo l]Ordered By: Malcolm Gaston on 02-10-2025 Eosinophils (Bld) [#/Vol] Automated eosinophil count 0.0-0.45 [facility] Eosinophils/100 WBC Auto (Bl d)Ordered By: Malcolm Gaston on 02-10-2025 Eosinophils/100 WBC (Bld) Automated eosinophil % . [facility] Erythrocyte distribution wid th Auto (RBC) [Ratio]Ordered By: Malcolm Gaston on 02-10-2025 Erythrocyte distribution width (RBC) [Ratio] Erythrocyte distribution width [Ratio] by Automated count 11.9-15.3 [facility] Globulin Calc (S) [Mass/Vol] Ordered By: Malcolm Gaston on 02-10-2025 Globulin (S) [Mass/Vol] Serum globulin measurement by calculation (mass/volume) [facility] Glucose [Mass/volume] in Ser um or PlasmaOrdered By: Malcolm Gaston on 02-10-2025 Glucose [Mass/Vol] Glucose [Mass/volume] in Serum or Plasma 70-100 [facility] Comment on above: ADA recommended refe [...] [Mass/volume] in Urine by Test strip Normal [facility] Hematocrit Auto (Bld) [Volum e fraction]Ordered By: Malcolm Gaston on 02-10-2025 Hematocrit (Bld) [Volume fraction] Hematocrit [Volume Fraction] of Blood by Automated count Low 34.0-46.4 [facility] Hemoglobin Test strip Ql (U) Ordered By: Malcolm Gaston on 02-10-2025 Hemoglobin Ql (U) Hemoglobin [Presence] in Urine by Test strip Negative [facility] Hemoglobin [Mass/volume] in BloodOrdered By: Malcolm Gaston on 02-10-2025 Hemoglobin (Bld) [Mass/Vol] Hemoglobin [Mass/volume] in Blood Low 11.8-15.4 [facility] Hepatic Panelon 02-10-2025 Albumin [Mass/Vol] 3.6 g/dL Normal 3.5-5.7 The [facility] Comment on above: Performed By: #### C BC, HEPATIC, BMP, LIPASE #### [address] Albumin/Globulin [Mass ratio] 1.4 {ratio} Normal The [facility] Comment on above: Performed By: #### C BC, HEPATIC, BMP, LIPASE #### [facility] [address] ALP [Catalytic activity/Vol] 74 U/L Normal 34-104 [facility] Comment on above: Performed By: #### C BC, HEPATIC, BMP, LIPASE #### [facility] [address] ALT [Catalytic activity/Vol] 13 U/L Normal 7-52 [facility] Comment on above: Performed By: #### C BC, HEPATIC, BMP, LIPASE #### [facility] [address] AST [Catalytic activity/Vol] 17 U/L Normal 13-39 [facility] Comment on above: Performed By: #### C BC, HEPATIC, BMP, LIPASE #### [address] Bilirubin [Mass/Vol] 0.4 mg/dL Normal 0.3-1.0 [facility] Comment on above: Performed By: #### C BC, HEPATIC, BMP, LIPASE #### [address] Bilirubin,Indirect 0.3 mg/dL Normal The [facility] Comment on above: Performed By: #### C BC, HEPATIC, BMP, LIPASE #### [address] Bilirubin.indirect [Mass/Vol] 0.10 mg/dL Normal 0.03-0.18 [facility] Comment on above: Performed By: #### C BC, HEPATIC, BMP, LIPASE #### [address] Globulin (S) [Mass/Vol] 2.6 g/dL Normal T he [facility] Comment on above: Performed By: #### C BC, HEPATIC, BMP, LIPASE #### [address] Protein [Mass/Vol] 6.2 g/dL Low 6.4-8.9 The [facility] Comment on above: Performed By: #### C BC, HEPATIC, BMP, LIPASE #### [address] Ketones Test strip Ql (U)Ord ered By: Malcolm Gaston on 02-10-2025 Ketones Ql (U) Ketones [Presence] in Urine by Test strip High Negative [facility] Leukocyte esterase [Presence ] in Urine by Test stripOrdered By: Malcolm Gaston on 02-10-2025 Leukocyte esterase Test strip Ql (U) Leukocyte esterase [Presence] in Urine by Test strip High Negative [facility] Leukocytes [#/volume] correc ira for nucleated erythrocytes in Blood by Automated counOrdered By: Malcolm Gaston on 02-10-2025 WBC corrected for nucl RBC Auto (Bld) [#/Vol] Leukocytes [#/volume] corrected for nucleated erythrocytes in Blood by Automated coun 3.8-11.6 [facility] Lipaseon 02-10-2025 Lipase [Catalytic activity/Vol] 21.0 U/L Normal 11.0-82.0 The [facility] Comment on above: Result Comment: PERF ORMED BY: [facility] [address] [place] [address] PATHOLOGIST TEENAGE PROGRAM DIRECTOR BRANDI GONZALEZ M.D. Performed By: #### C BC, HEPATIC, BMP, LIPASE #### [address] Lipase [Enzymatic activity/v olume] in Serum or PlasmaOrdered By: Malcolm Gaston on 02-10-2025 Lipase [Catalytic activity/Vol] Lipase [Enzymatic activity/volume] in Serum or Plasma 11.0-82.0 [facility] Lymphocytes Auto (Bld) [#/Vo l]Ordered By: Malcolm Gaston on 02-10-2025 Lymphocytes (Bld) [#/Vol] Lymphocytes [#/volume] in Blood by Automated count Low 1.00-4.8 [facility] Lymphocytes/100 WBC Auto (Bl d)Ordered By: Malcolm Gaston on 02-10-2025 Lymphocytes/100 WBC (Bld) Lymphocytes/100 leukocytes in Blood by Automated count . [facility] MCH Auto (RBC) [Entitic mass ]Ordered By: Malcolm Gaston on 02-10-2025 MCH (RBC) [Entitic mass] MCH [Entitic mass] by Automated count 24.7-34.3 [facility] MCHC Auto (RBC) [Mass/Vol]Or dered By: Malcolm Gaston on 02-10-2025 MCHC (RBC) [Mass/Vol] MCHC [Mass/volume] by Automated count High 32.0-35.0 [facility] MCV Auto (RBC) [Entitic vol] Ordered By: Malcolm Gaston on 02-10-2025 MCV (RBC) [Entitic vol] MCV [Entitic vol ume] by Automated count 80-100 [facility] Monocyte distribution width [Entitic volume] in Blood by AutomatedOrdered By: Malcolm Gaston on 02-10-2025 Monocyte distribution width Auto (Bld) [Entitic vol] Monocyte distribution width [Entitic volume] in Blood by Automated High 0.00-20.00 [facility] Comment on above: For adults in ED, MD W > 20.0 may be associated with a higher risk of sepsis during the first 12 hrs of hospital admission Monocytes Auto (Bld) [#/Vol] Ordered By: Malcolm Gaston on 02-10-2025 Monocytes (Bld) [#/Vol] Automated blood monocyte count 0.0-0.8 [facility] Monocytes/100 WBC Auto (Bld) Ordered By: Malcolm Gaston on 02-10-2025 Monocytes/100 WBC (Bld) Automated monocyte % . [facility] Neutrophils Auto (Bld) [#/Vo l]Ordered By: Malcolm Gaston on 02-10-2025 Neutrophils (Bld) [#/Vol] Neutrophils [#/volume] in Blood by Automated count 1.8-7.7 [facility] Neutrophils/100 WBC Auto (Bl d)Ordered By: Malcolm Gaston on 02-10-2025 Neutrophils/100 WBC (Bld) Automated neutrophil % . [facility] Nitrite Test strip Ql (U)Ord ered By: Malcolm Gaston on 02-10-2025 Nitrite Ql (U) Nitrite [Presence] in Urine by Test strip Negative [facility] No Panel InformationOrdered By: Malcolm Gaston on 02-10-2025 Estimated GFR (CKD-EPI) > 60.0 mL/Min [facility] Creatinine Clearance (Chem 136.70 [facility] Nucleated erythrocytes [Pres ence] in Blood by Automated countOrdered By: Malcolm Gaston on 02-10-2025 Nucleated RBC Auto Ql (Bld) Nucleated erythrocytes [Presence] in Blood by Automated count 0-0.5 [facility] Platelet mean volume Auto (B ld) [Entitic vol]Ordered By: Malcolm Gaston on 02-10-2025 Platelet mean volume (Bld) [Entitic vol] Platelet mean volume [Entitic volume] in Blood by Automated count 6.3-10.7 [facility] Platelets Auto (Bld) [#/Vol] Ordered By: Malcolm Gaston on 02-10-2025 Platelets (Bld) [#/Vol] Platelets [#/vol ume] in Blood by Automated count 150-450 [facility] Potassium [Moles/volume] in Serum or PlasmaOrdered By: Malcolm Gaston on 02-10-2025 Potassium [Moles/Vol] Potassium [Moles/volume] in Serum or Plasma 3.5-5.1 [facility] Protein Test strip (U) [Mass /Vol]Ordered By: Malcolm Gaston on 02-10-2025 Protein (U) [Mass/Vol] Protein [Mass/volume] in Urine by Test strip Negative [facility] Protein [Mass/volume] in Ser um or PlasmaOrdered By: Malcolm Gaston on 02-10-2025 Protein [Mass/Vol] Protein [Mass/volume] in Serum or Plasma Low 6.4-8.9 [facility] RBC Auto (Bld) [#/Vol]Ordere d By: Malcolm Gaston on 02-10-2025 RBC (Bld) [#/Vol] Erythrocytes [#/volume] in Blood by Automated count Low 3.60-5.00 [facility] Serum or plasma albumin/glob ulin mass ratioOrdered By: Malcolm Gaston on 02-10-2025 Albumin/Globulin [Mass ratio] Serum or plasma albumin/globulin mass ratio [facility] Serum or plasma anion gap de terminationOrdered By: Malcolm Gaston on 02-10-2025 Anion gap [Moles/Vol] Serum or plasma anion gap determination 6.0-15.0 [facility] Serum or plasma non-glucuron idated bilirubin measurement (mass/volume)Ordered By: Malcolm Gaston on 02-10-2025 Bilirubin.indirect [Mass/Vol] Serum or plasma non-glucuronidated bilirubin measurement (mass/volume) [facility] Sodium [Moles/volume] in Ser um or PlasmaOrdered By: Malcolm Gaston on 02-10-2025 Sodium [Moles/Vol] Sodium [Moles/volume] in Serum or Plasma 136-145 [facility] Specific gravity Test strip (U) [Rel density]Ordered By: Malcolm Gaston on 02-10-2025 Specific gravity (U) [Rel density] Specific gravity of Urine by Test strip 1.001-1.030 [facility] Urea nitrogen [Mass/volume] in Serum or PlasmaOrdered By: Malcolm Gaston on 02-10-2025 Urea nitrogen [Mass/Vol] Urea nitrogen [Mass/volume] in Serum or Plasma Low 7-25 [facility] Urobilinogen Test strip (U) [Mass/Vol]Ordered By: Malcolm Gaston on 02-10-2025 Urobilinogen (U) [Mass/Vol] Urobilinogen [Mass/volume] in Urine by Test strip Normal [facility] WBC Auto (Bld) [#/Vol]Ordere d By: Malcolm Gaston on 02-10-2025 WBC (Bld) [#/Vol] Leukocytes [#/volume] in Blood by Automated count 3.8-11.6 [facility] pH Test strip (U)Ordered By: Malcolm Gaston on 02-10-2025 pH (U) pH of Urine by Test strip 5.0-9.0 [facility] Urinalysis macro (dipstick) panel (U)on 01-31-2025 Bilirubin, UA Negative Negative - 4(70) +++ mg/dL [facility] Blood, UA Negative Negative - 50 Brent/mcL [facility] Clarity, UA Clear [facility] Color, UA Yellow [facility] Glucose, UA Negative Negative - 1999(110) ++++ mg/dL [facility] Interpretation and review of laboratory results Abnormal [facility] Ketones, UA Negative Negative - 160(16) ++++ mg/dL [facility] Leukocytes, UA Positive Negative - 500+++ Kae/mcL [facility] Comment on above: small Nitrite, UA Negative Negative - Positive [facility] pH, UA 6 5 - 9 [facility] Protein, UA Negative Negative - 1999(20) ++++ mg/dL [facility] Spec Grav, UA 1.02 1 - 1.03 [facility] Urobilinogen, UA 0.2 0.2 - 12 mg/dL [facility] US OB 14+ WEEKS ANATOMY SCAN on [...] A short-term follow-up ultrasound is recommended. Electronically Signed:Sunny solomon signed by RENUKA BLACK II, MD, PHD at 28-Dec-2024 09:45:37 PM [facility] Normal Not Available Comment on above: Order Comment: US OB ANATOMY SINGLE W US OB CERVICAL LENGTH Estimated Date of Delivery: 05/12/25 Gestational Age as of 11/30/2024: 16w5d Urinalysis macro (dipstick) panel (U)on 12-28-2024 Bilirubin, UA Negative Negative - 4(70) +++ mg/dL [facility] Blood, UA Positive Negative - 50 Brent/mcL [facility] Comment on above: trace Clarity, UA Clear [facility] Color, UA Yellow [facility] Glucose, UA Negative Negative - 1999(110) ++++ mg/dL [facility] Interpretation and review of laboratory results Abnormal [facility] Ketones, UA Negative Negative - 160(16) ++++ mg/dL [facility] Leukocytes, UA Negative Negative - 500+++ Kae/mcL [facility] Nitrite, UA Negative Negative - Positive [facility] pH, UA 6 5 - 9 [facility] Protein, UA Negative Negative - 1999(20) ++++ mg/dL [facility] Spec Grav, UA 1.015 1 - 1.03 [facility] Urobilinogen, UA 0.2 0.2 - 12 mg/dL [facility] IGP,APTIMA HPV,AGE GDLNon AGE GDLN ACOG TESTING Note . [facility] Comment on above: TESTS RESULT FLAG UN ITS REF RANGE LAB Clinician Provided Cytology Information Source.............Cervix;Endocervix No. of containers..01 ThinPrep Vial Age Algo ACOG Katerin... FLAG LEGEND: L-Low Normal,H-High Normal,LL-Alert Low,HH-Alert High <-Panic Low,>-Panic High,A-Abnormal,AA-Critical Abnormal Performed at: 01 =[address] [place] [address] Shea Yun MD, HPV APTIMA Negative Negative [facility] Comment on above: This nucleic acid am plification test detects fourteen high- risk HPV types (16,18,31,33,35,39,45,51,52,56,58,59,66,68) without differentiation. Performed at: = - [address], [place] [id number] Primary Care Nurse Practitioner: Shea Yun MD, Phone: [phone] Performed at: [address] [id number] Primary Care Nurse Practitioner: Shea Yun MD, Phone: [phone] IGP, APTIMA HPV, RFX 16/18,45 Note . [facility] Comment on above: TESTS RESULT FLAG UN ITS REF RANGE LAB DIAGNOSIS: 02 NEGATIVE FOR INTRAEPITHELIAL LESION OR MALIGNANCY. FUNGAL ORGANISMS MORPHOLOGICALLY CONSISTENT WITH TIGIST SPECIES ARE PRESENT. THIS SPECIMEN WAS RESCREENED PART OF OUR GRADING SUPERVISOR PROGRAM. Specimen adequacy: 02 Satisfactory for evaluation. No endocervical component is identified. Performed by: Lisa Gonzalez Licensed Insurance Sales Agent QC reviewed by: Lisa Gonzalez Licensed Insurance Sales Agent ([facility]) . 02 Note: Note 02 The [...] Low,>-Panic High,A-Abnormal,AA-Critical Abnormal Performed at: 02 [facility] [address] [place] [address] Shea Yun MD, [facility] Urinalysis macro (dipstick) panel (U)on 11-30-2024 Bilirubin, UA Negative Negative - 4(70) +++ mg/dL [facility] Blood, UA Positive Negative - 50 Brent/mcL [facility] Comment on above: Trace-Intact Clarity, UA Clear [facility] Color, UA Yellow [facility] Glucose, UA Negative Negative - 1999(110) ++++ mg/dL [facility] Interpretation and review of laboratory results Abnormal [facility] Ketones, UA Negative Negative - 160(16) ++++ mg/dL [facility] Leukocytes, UA Trace Negative - 500+++ Kae/mcL [facility] Nitrite, UA Negative Negative - Positive [facility] pH, UA 7 5 - 9 [facility] Protein, UA Negative Negative - 1999(20) ++++ mg/dL [facility] Spec Grav, UA 1.015 1 - 1.03 [facility] Urobilinogen, UA 0.2 0.2 - 12 mg/dL [facility] Urinalysis macro (dipstick) panel (U)on 11-02-2024 Bilirubin, UA Negative Negative - 4(70) +++ mg/dL [facility] Blood, UA Negative Negative - 50 Brent/mcL [facility] Clarity, UA Clear [facility] Color, UA Yellow [facility] Glucose, UA Negative Negative - 1999(110) ++++ mg/dL [facility] Interpretation and review of laboratory results Normal [facility] Ketones, UA Negative Negative - 160(16) ++++ mg/dL [facility] Leukocytes, UA Negative Negative - 500+++ Kae/mcL [facility] Nitrite, UA Negative Negative - Positive [facility] pH, UA 7 5 - 9 [facility] Protein, UA Negative Negative - 2000(20) ++++ mg/dL [facility] Spec Grav, UA 1.02 1 - 1.03 [facility] Urobilinogen, UA 0.2 0.2 - 12 mg/dL [facility] Alanine aminotransferase [En zymatic activity/volume] in Serum or PlasmaOrdered By: Ale Fragoso on 10-26-2024 ALT [Catalytic activity/Vol] Alanine aminotransferase [Enzymatic activity/volume] in Serum or Plasma 7-52 [facility] Albumin [Mass/volume] in Ser um or Plasma by Bromocresol green (BCG) dye binding methoOrdered By: Ale Fragoso on 10-26-2024 Albumin BCG dye [Mass/Vol] Albumin [Mass/volume] in Serum or Plasma by Bromocresol green (BCG) dye binding metho 3.5-5.7 [facility] Alkaline phosphatase [Enzyma tic activity/volume] in Serum or PlasmaOrdered By: Ale Fragoso on 10-26-2024 ALP [Catalytic activity/Vol] Alkaline phosphatase [Enzymatic activity/volume] in Serum or Plasma 34-104 [facility] Appearance of UrineOrdered B y: Ale Fragoso on 10-26-2024 Appearance (U) Urine appearance Clear [facility] Aspartate aminotransferase [ Enzymatic activity/volume] in Serum or PlasmaOrdered By: Ale Fragoso on 10-26-2024 AST [Catalytic activity/Vol] Aspartate aminotransferase [Enzymatic activity/volume] in Serum or Plasma 13-39 [facility] Basophils Auto (Bld) [#/Vol] Ordered By: Ale Fragoso on 10-26-2024 Basophils (Bld) [#/Vol] Automated basoph il count 0.0-0.2 [facility] Basophils/100 WBC Auto (Bld) Ordered By: Ale Fragoso on 10-26-2024 Basophils/100 WBC (Bld) Automated basophil % . [facility] Bilirubin Test strip Ql (U)O rdered By: Ale Fragoso on 10-26-2024 Bilirubin Ql (U) Bilirubin.total [Presence] in Urine by Test strip Negative [facility] Bilirubin.total [Mass/volume ] in Serum or PlasmaOrdered By: Ale Fragoso on 10-26-2024 Bilirubin [Mass/Vol] Bilirubin.total [Mass/volume] in Serum or Plasma 0.3-1.0 [facility] Calcium [Mass/volume] in Ser um or PlasmaOrdered By: Ale Fragoso on 10-26-2024 Calcium [Mass/Vol] Calcium [Mass/volume] in Serum or Plasma Low 8.6-10.3 [facility] Carbon dioxide, total [Moles /volume] in Serum or PlasmaOrdered By: Ale Fragoso on 10-26-2024 CO2 [Moles/Vol] Carbon dioxide, total [Moles/volume] in Serum or Plasma 21.0-31.0 [facility] Chloride [Moles/volume] in S mehdi or PlasmaOrdered By: Ale Fragoso on 10-26-2024 Chloride [Moles/Vol] Chloride [Moles/volume] in Serum or Plasma 98-107 [facility] Color Auto (U)Ordered By: Toribio Fragoso on 10-26-2024 Color (U) Color of Urine by Auto Yellow [facility] Complete Blood Count Auto Di ffon 10-26-2024 Basophils (Bld) [#/Vol] 0.0 10*3/uL Normal 0.0-0.2 [facility] Comment on above: Result Comment: PERF ORMED BY: [place] [address] PATHOLOGIST TEENAGE PROGRAM DIRECTOR BRANDI GONZALEZ M.D. Performed By: #### C BC, HEPATIC, BMP, LIPASE #### [place] [address] [place] Basophils/100 WBC (Bld) 0.6 % Normal . T he [facility] Comment on above: Performed By: #### C BC, HEPATIC, BMP, LIPASE #### [place] [address] [place] Eosinophils (Bld) [#/Vol] 0.3 10*3/uL Normal 0.0-0.45 [facility] Comment on above: Performed By: #### C BC, HEPATIC, BMP, LIPASE #### [address] Eosinophils/100 WBC (Bld) 5.6 % Normal . [facility] Comment on above: Performed By: #### C BC, HEPATIC, BMP, LIPASE #### [address] Erythrocyte distribution width (RBC) [Ratio] 13.6 % Normal 11.9-15.3 [facility] Comment on above: Performed By: #### C BC, HEPATIC, BMP, LIPASE #### [address] Hematocrit (Bld) [Volume fraction] 35.6 % Normal 34.0-46.4 [facility] Comment on above: Performed By: #### C BC, HEPATIC, BMP, LIPASE #### [address] Hemoglobin (Bld) [Mass/Vol] 12.3 g/dL Normal 11.8-15.4 [facility] Comment on above: Performed By: #### C BC, HEPATIC, BMP, LIPASE #### [address] Lymphocytes (Bld) [#/Vol] 0.8 10*3/uL Low 1.00-4.8 [facility] Comment on above: Performed By: #### C BC, HEPATIC, BMP, LIPASE #### [address] Lymphocytes/100 WBC (Bld) 18.1 % Normal . [facility] Comment on above: Performed By: #### C BC, HEPATIC, BMP, LIPASE #### [address] MCH (RBC) [Entitic mass] 32.2 pg Normal 24.7-34.3 [facility] Comment on above: Performed By: #### C BC, HEPATIC, BMP, LIPASE #### [address] MCV (RBC) [Entitic vol] 92.9 fL Normal 80-100 [facility] Comment on above: Performed By: #### C BC, HEPATIC, BMP, LIPASE #### [address] Mean Corpuscular HGB Conc 34.6 g/dL Normal 32.0-35.0 [facility] Comment on above: Performed By: #### C BC, HEPATIC, BMP, LIPASE #### [address] Monocytes (Bld) [#/Vol] 0.4 10*3/uL Normal 0.0-0.8 [facility] Comment on above: Performed By: #### C BC, HEPATIC, BMP, LIPASE #### [address] Monocytes/100 WBC (Bld) 17.94 % Normal 0.00-20.00 [facility] Comment on above: Performed By: #### C BC, HEPATIC, BMP, LIPASE #### [address] Monocytes/100 WBC (Bld) 8.1 % Normal . [facility] Comment on above: Performed By: #### C BC, HEPATIC, BMP, LIPASE #### [address] Neutrophils (Bld) [#/Vol] 3.1 10*3/uL Normal 1.8-7.7 [facility] Comment on above: Performed By: #### C BC, HEPATIC, BMP, LIPASE #### [place] [address] [place] Neutrophils/100 WBC (Bld) 67.6 % Normal . [facility] Comment on above: Performed By: #### C BC, HEPATIC, BMP, LIPASE #### [address] NRBC% 0.1 /100{WBC} Normal 0-0.5 [facility] Comment on above: Performed By: #### C BC, HEPATIC, BMP, LIPASE #### [address] Platelet mean volume (Bld) [Entitic vol] 7.6 fL Normal 6.3-10.7 [facility] Comment on above: Performed By: #### C BC, HEPATIC, BMP, LIPASE #### [address] Platelets (Bld) [#/Vol] 194 10*3/uL Normal 150-450 [facility] Comment on above: Performed By: #### C BC, HEPATIC, BMP, LIPASE #### [address] RBC (Bld) [#/Vol] 3.83 10*6/uL Normal 3.60-5.00 [facility] Comment on above: Performed By: #### C BC, HEPATIC, BMP, LIPASE #### [address] WBC (Bld) [#/Vol] 4.6 10*3/uL Normal 3.8-11.6 [facility] Comment on above: Performed By: #### C BC, HEPATIC, BMP, LIPASE #### [address] Comprehensive Metabolic Pane al 10-26-2024 Albumin [Mass/Vol] 3.6 g/dL Normal 3.5-5.7 [facility] Comment on above: Performed By: #### C BC, HEPATIC, BMP, LIPASE #### [address] Albumin/Globulin [Mass ratio] 1.5 {ratio} Normal [facility] Comment on above: Performed By: #### C BC, HEPATIC, BMP, LIPASE #### [address] ALP [Catalytic activity/Vol] 42 U/L Normal 34-104 [facility] Comment on above: Performed By: #### C BC, HEPATIC, BMP, LIPASE #### [facility] [address] ALT [Catalytic activity/Vol] 13 U/L Normal 7-52 [facility] Comment on above: Performed By: #### C BC, HEPATIC, BMP, LIPASE #### [facility] [address] Anion gap [Moles/Vol] 7.3 mmol/L Normal 6.0-15.0 [facility] Comment on above: Performed By: #### C BC, HEPATIC, BMP, LIPASE #### [address] AST [Catalytic activity/Vol] 16 U/L Normal 13-39 [facility] Comment on above: Performed By: #### C BC, HEPATIC, BMP, LIPASE #### [address] Bilirubin [Mass/Vol] 0.3 mg/dL Normal 0.3-1.0 [facility] Comment on above: Performed By: #### C BC, HEPATIC, BMP, LIPASE #### [address] Calcium [Mass/Vol] 8.5 mg/dL Low 8.6-10.3 [facility] Comment on above: Performed By: #### C BC, HEPATIC, BMP, LIPASE #### [place] [address] [place] Chloride [Moles/Vol] 106 mmol/L Normal 98-107 [facility] Comment on above: Performed By: #### C BC, HEPATIC, BMP, LIPASE #### [address] CO2 [Moles/Vol] 25.5 mmol/L Normal 21.0-31.0 [facility] Comment on above: Performed By: #### C BC, HEPATIC, BMP, LIPASE #### [address] Creatinine [Mass/Vol] 0.55 mg/dL Low 0.60-1.20 [facility] Comment on above: Performed By: #### C BC, HEPATIC, BMP, LIPASE #### [facility] [address] Creatinine Clr Calc Pharmacy 121.47 Normal [facility] Comment on above: Performed By: #### C BC, HEPATIC, BMP, LIPASE #### [facility] [address] [place] [address] [place] GFR/1.73 sq M.predicted MDRD (S/P/Bld) [Vol rate/Area] mL/min/{1.73_m2} Normal [facility] Comment on above: Performed By: #### C BC, HEPATIC, BMP, LIPASE #### [address] Globulin (S) [Mass/Vol] 2.4 g/dL Normal T he [facility] Comment on above: Performed By: #### C BC, HEPATIC, BMP, LIPASE #### [address] Glucose [Mass/Vol] 90 mg/dL Normal 70-100 [facility] Comment on above: Result Comment: [facility] Glucose Reference Range is dependent on time and content of last meal. Glucose of more than 200 mg/dL in a nonstressed, ambulatory subject supports the diagnosis of Diabetes Mellitus. ADA recommended reference range Performed By: #### C BC, HEPATIC, BMP, LIPASE #### [address] Potassium [Moles/Vol] 3.8 mmol/L Normal 3.5-5.1 [facility] Comment on above: Performed By: #### C BC, HEPATIC, BMP, LIPASE #### [address] Protein [Mass/Vol] 6.0 g/dL Low 6.4-8.9 [facility] Comment on above: Performed By: #### C BC, HEPATIC, BMP, LIPASE #### [address] Sodium [Moles/Vol] 135 mmol/L Low 136-145 [facility] Comment on above: Performed By: #### C BC, HEPATIC, BMP, LIPASE #### [facility] [address] Urea nitrogen [Mass/Vol] 9 mg/dL Normal 7-25 [facility] Comment on above: Performed By: #### C BC, HEPATIC, BMP, LIPASE #### [facility] [address] [place] [id number] [place] Creatinine [Mass/volume] in Serum or PlasmaOrdered By: Ale Fragoso on 10-26-2024 Creatinine [Mass/Vol] Creatinine [Mass/volume] in Serum or Plasma Low 0.60-1.20 [facility] Eosinophils Auto (Bld) [#/Vo l]Ordered By: Ale Fragoso on 10-26-2024 Eosinophils (Bld) [#/Vol] Automated eosinophil count 0.0-0.45 [facility] Eosinophils/100 WBC Auto (Bl d)Ordered By: Ale Fragoso on 10-26-2024 Eosinophils/100 WBC (Bld) Automated eosinophil % . [facility] Erythrocyte distribution wid th Auto (RBC) [Ratio]Ordered By: Ale Fragoso on 10-26-2024 Erythrocyte distribution width (RBC) [Ratio] Erythrocyte distribution width [Ratio] by Automated count 11.9-15.3 [facility] Globulin Calc (S) [Mass/Vol] Ordered By: Ale Fragoso on 10-26-2024 Globulin (S) [Mass/Vol] Serum globulin measurement by calculation (mass/volume) [facility] Glucose [Mass/volume] in Ser um or PlasmaOrdered By: Ale Fragoso on 10-26-2024 Glucose [Mass/Vol] Glucose [Mass/volume] in Serum or Plasma 70-100 [facility] Comment on above: ADA recommended refe [...] [Mass/volume] in Urine by Test strip Normal [facility] Hematocrit Auto (Bld) [Volum e fraction]Ordered By: Ale Fragoso on 10-26-2024 Hematocrit (Bld) [Volume fraction] Hematocrit [Volume Fraction] of Blood by Automated count 34.0-46.4 [facility] Hemoglobin Test strip Ql (U) Ordered By: Ale Fragoso on 10-26-2024 Hemoglobin Ql (U) Hemoglobin [Presence] in Urine by Test strip Negative [facility] Hemoglobin [Mass/volume] in BloodOrdered By: Ale Fragoso on 10-26-2024 Hemoglobin (Bld) [Mass/Vol] Hemoglobin [Mass/volume] in Blood 11.8-15.4 [facility] Ketones Test strip Ql (U)Ord ered By: Ale Fragoso on 10-26-2024 Ketones Ql (U) Ketones [Presence] in Urine by Test strip Negative [facility] Leukocyte esterase [Presence ] in Urine by Test stripOrdered By: Ale Fragoso on 10-26-2024 Leukocyte esterase Test strip Ql (U) Leukocyte esterase [Presence] in Urine by Test strip Negative [facility] Leukocytes [#/volume] correc ira for nucleated erythrocytes in Blood by Automated counOrdered By: Ale Fragoso on 10-26-2024 WBC corrected for nucl RBC Auto (Bld) [#/Vol] Leukocytes [#/volume] corrected for nucleated erythrocytes in Blood by Automated coun 3.8-11.6 [facility] Lymphocytes Auto (Bld) [#/Vo l]Ordered By: Ale Fragoso on 10-26-2024 Lymphocytes (Bld) [#/Vol] Lymphocytes [#/volume] in Blood by Automated count Low 1.00-4.8 [facility] Lymphocytes/100 WBC Auto (Bl d)Ordered By: Ale Fragoso on 10-26-2024 Lymphocytes/100 WBC (Bld) Lymphocytes/100 leukocytes in Blood by Automated count . [facility] MCH Auto (RBC) [Entitic mass ]Ordered By: Ale Fragoso on 10-26-2024 MCH (RBC) [Entitic mass] MCH [Entitic mass] by Automated count 24.7-34.3 [facility] MCHC Auto (RBC) [Mass/Vol]Or dered By: Ale Fragoso on 10-26-2024 MCHC (RBC) [Mass/Vol] MCHC [Mass/volume] by Automated count 32.0-35.0 [facility] MCV Auto (RBC) [Entitic vol] Ordered By: Ale Fragoso on 10-26-2024 MCV (RBC) [Entitic vol] MCV [Entitic vol ume] by Automated count 80-100 [facility] Magnesiumon 10-26-2024 Magnesium [Mass/Vol] 1.9 mg/dL Normal 1.9-2.7 [facility] Comment on above: Result Comment: PERF ORMED BY: [place] [address] PATHOLOGIST TEENAGE PROGRAM DIRECTOR BRANDI GONZALEZ M.D. Performed By: #### C BC, HEPATIC, BMP, LIPASE #### [address] Magnesium [Mass/volume] in S mehdi or PlasmaOrdered By: Ale Fragoso on 10-26-2024 Magnesium [Mass/Vol] Magnesium [Mass/volume] in Serum or Plasma 1.9-2.7 [facility] Monocyte distribution width [Entitic volume] in Blood by AutomatedOrdered By: Ale Fragoso on 10-26-2024 Monocyte distribution width Auto (Bld) [Entitic vol] Monocyte distribution width [Entitic volume] in Blood by Automated 0.00-20.00 [facility] Monocytes Auto (Bld) [#/Vol] Ordered By: Ale Fragoso on 10-26-2024 Monocytes (Bld) [#/Vol] Automated blood monocyte count 0.0-0.8 [facility] Monocytes/100 WBC Auto (Bld) Ordered By: Ale Fragoso on 10-26-2024 Monocytes/100 WBC (Bld) Automated monocyte % . [facility] Neutrophils Auto (Bld) [#/Vo l]Ordered By: Ale Fragoso on 10-26-2024 Neutrophils (Bld) [#/Vol] Neutrophils [#/volume] in Blood by Automated count 1.8-7.7 [facility] Neutrophils/100 WBC Auto (Bl d)Ordered By: Ale Fragoso on 10-26-2024 Neutrophils/100 WBC (Bld) Automated neutrophil % . [facility] Nitrite Test strip Ql (U)Ord ered By: Ale Fragoso on 10-26-2024 Nitrite Ql (U) Nitrite [Presence] in Urine by Test strip Negative [facility] No Panel InformationOrdered By: Ale Fragoso on 10-26-2024 Estimated GFR (CKD-EPI) > 60.0 mL/Min [facility] Creatinine Clearance (Chem 121.47 [facility] Nucleated erythrocytes [Pres ence] in Blood by Automated countOrdered By: Ale Fragoso on 10-26-2024 Nucleated RBC Auto Ql (Bld) Nucleated erythrocytes [Presence] in Blood by Automated count 0-0.5 [facility] Platelet mean volume Auto (B ld) [Entitic vol]Ordered By: Ale Fragoso on 10-26-2024 Platelet mean volume (Bld) [Entitic vol] Platelet mean volume [Entitic volume] in Blood by Automated count 6.3-10.7 [facility] Platelets Auto (Bld) [#/Vol] Ordered By: Ale Fragoso on 10-26-2024 Platelets (Bld) [#/Vol] Platelets [#/vol ume] in Blood by Automated count 150-450 [facility] Potassium [Moles/volume] in Serum or PlasmaOrdered By: Ale Fragoso on 10-26-2024 Potassium [Moles/Vol] Potassium [Moles/volume] in Serum or Plasma 3.5-5.1 [facility] Protein Test strip (U) [Mass /Vol]Ordered By: Ale Fragoso on 10-26-2024 Protein (U) [Mass/Vol] Protein [Mass/volume] in Urine by Test strip Negative [facility] Protein [Mass/volume] in Ser um or PlasmaOrdered By: Ale Fragoso 10-26-2024 Protein [Mass/Vol] Protein [Mass/volume] in Serum or Plasma Low 6.4-8.9 [facility] RBC Auto (Bld) [#/Vol]Ordere d By: Ale Fragoso on 10-26-2024 RBC (Bld) [#/Vol] Erythrocytes [#/volume] in Blood by Automated count 3.60-5.00 [facility] Serum or plasma albumin/glob ulin mass ratioOrdered By: Ale Fragoso on 10-26-2024 Albumin/Globulin [Mass ratio] Serum or plasma albumin/globulin mass ratio [facility] Serum or plasma anion gap de terminationOrdered By: Ale Fragoso on 10-26-2024 Anion gap [Moles/Vol] Serum or plasma anion gap determination 6.0-15.0 [facility] Sodium [Moles/volume] in Ser um or PlasmaOrdered By: Ale Fragoso on 10-26-2024 Sodium [Moles/Vol] Sodium [Moles/volume] in Serum or Plasma Low 136-145 [facility] Specific gravity Test strip (U) [Rel density]Ordered By: Ale Fragoso on 10-26-2024 Specific gravity (U) [Rel density] Specific gravity of Urine by Test strip 1.001-1.030 [facility] US renal RTon 10-26-2024 US renal RT [facility] [address] Ultrasound Report Signed Patient: Breana Casas MR#: [id number] : 1990 Acct:[id number] Age/Sex: 33 / F ADM Date: 10/26/24 Loc: ER Room: Type: [facility] ER Attending Dr: Ordering Provider: Ale [...] Tanner Burleson M.D.10/26/2024 11:46 AM Dictation Location: [place] [address] Tech: Karmen Lobo Transcribed By: SHANE 10/26/24 1146 Dictated By: Tanner Burleson DO 10/26/24 1139 Signed By: 10/26/24 1146 Normal [facility] Urea nitrogen [Mass/volume] in Serum or PlasmaOrdered By: Ale Fragoso on 10-26-2024 Urea nitrogen [Mass/Vol] Urea nitrogen [Mass/volume] in Serum or Plasma 04-29 [facility] Urinalysison 10-26-2024 Appearance (U) Clear Normal Clear [facility] Comment on above: Order Comment: Name Collection Type:: Clean-Voided Midstream Performed By: #### U A #### [facility] [address] [place] [address] [place] Bilirubin,Urine Negative Normal Negative [facility] Comment on above: Order Comment: Name Collection Type:: Clean-Voided Midstream Performed By: #### U A #### [facility] [address] [place] [address] [place] Color (U) Light-Yellow Normal Yellow [facility] Comment on above: Order Comment: Name Collection Type:: Clean-Voided Midstream Performed By: #### U A #### [facility] [address] [place] [address] [place] Glucose Ql (U) Normal Normal Normal [facility] Comment on above: Order Comment: Name Collection Type:: Clean-Voided Midstream Performed By: #### U A #### [facility] [address] [place] [address] [place] Ketones Ql (U) Negative Normal Negative [facility] Comment on above: Order Comment: Name Collection Type:: Clean-Voided Midstream Performed By: #### U A #### [facility] [address] [place] [address] [place] Leukocyte esterase Test strip Ql (U) Negative Normal Negative [facility] Comment on above: Order Comment: Name Collection Type:: Clean-Voided Midstream Performed By: #### U A #### [facility] [address] [place] [address] [place] Nitrite,Urine Negative Normal Negative [facility] Comment on above: Order Comment: Name Collection Type:: Clean-Voided Midstream Performed By: #### U A #### [address] Occult Blood,Urine Negative Normal Negative [facility] Comment on above: Order Comment: Name Collection Type:: Clean-Voided Midstream Result Comment: PERF ORMED BY: [place] [address] PATHOLOGIST TEENAGE PROGRAM DIRECTOR BRANDI GONZALEZ M.D. Performed By: #### U A #### [address] pH (U) 6.5 [pH] Normal 5.0-9.0 [facility] Comment on above: Order Comment: Name Collection Type:: Clean-Voided Midstream Performed By: #### U A #### [address] Protein,Urine Negative Normal Negative [facility] Comment on above: Order Comment: Name Collection Type:: Clean-Voided Midstream Performed By: #### U A #### [place] [address] [place] Specificy [place],Urine 1.020 Normal 1.001-1.030 [facility] Comment on above: Order Comment: Name Collection Type:: Clean-Voided Midstream Performed By: #### U A #### [place] [address] [place] Urobilinogen,Urine Normal Normal Normal [facility] Comment on above: Order Comment: Name Collection Type:: Clean-Voided Midstream Performed By: #### U A #### [place] [address] [place] Urobilinogen Test strip (U) [Mass/Vol]Ordered By: Ale Fragoso on 10-26-2024 Urobilinogen (U) [Mass/Vol] Urobilinogen [Mass/volume] in Urine by Test strip Normal [facility] WBC Auto (Bld) [#/Vol]Ordere d By: Ale Fragoso on 10-26-2024 WBC (Bld) [#/Vol] Leukocytes [#/volume] in Blood by Automated count 3.8-11.6 [facility] pH Test strip (U)Ordered By: Ale Fragoso on 10-26-2024 pH (U) pH of Urine by Test strip 5.0-9.0 [facility] BOX TESTon 10-19-2024 BOX TEST SENT OUT [facility] BOX1 [facility] BOX2 10/19/24 [facility] ( test) Ql (U)o n 10-01-2024 Interpretation and review of laboratory results Abnormal [facility] Preg Test, Ur Positive Negative [facility] Urinalysis macro (dipstick) panel (U)on 10-01-2024 Bilirubin, UA Negative Negative - 4(70) +++ mg/dL [facility] Blood, UA Negative Negative - 50 Brent/mcL [facility] Clarity, UA Clear [facility] Color, UA Yellow [facility] Glucose, UA Negative Negative - 1999(110) ++++ mg/dL [facility] Interpretation and review of laboratory results Normal [facility] Ketones, UA Negative Negative - 160(16) ++++ mg/dL [facility] Leukocytes, UA Negative Negative - 500+++ Kae/mcL [facility] Nitrite, UA Negative Negative - Positive [facility] pH, UA 6 5 - 9 [facility] Protein, UA Negative Negative - 2000(20) ++++ mg/dL [facility] Spec Grav, UA 1.005 1 - 1.03 [facility] Urobilinogen, UA 0.2 0.2 - 12 mg/dL [facility] TBH PREG QUANT HCGon 024 HCG QUANTITATIVE 61084 mIU/mL [facility] Comment on above: 5-50 0.2-1 WEEK 50-500 1-2 WEEKS 100-5,000 2-3 WEEKS 500-10,000 3-4 WEEKS 1,000-50,000 4-5 WEEKS 10,000-100,000 5-6 WEEKS 15,000-200,000 6-8 WEEKS 10,000-100,000 2-3 [facility] PREG QUANT HCGon 024 HCG QUANTITATIVE 6224 mIU/mL [facility] Comment on above: 5-50 0.2-1 WEEK 50-500 1-2 WEEKS 100-5,000 2-3 WEEKS 500-10,000 3-4 WEEKS 1,000-50,000 4-5 WEEKS 10,000-100,000 5-6 WEEKS 15,000-200,000 6-8 WEEKS 10,000-100,000 2-3 MONTHS [facility] ALL PROGESTERONEon 4 PROGESTERONE 21.4 ng/mL . [facility] Comment on above: Follicular phase 0.1 - 0.9 Luteal phase 1.8 - 23.9 Ovulation phase 0.1 - 12.0 First trimester 11.0 - 44.3 Second trimester 25.4 - 83.3 Third trimester 58.7 - 214.0 Postmenopausal 0.0 - 0.1 Performed at: [facility] [address] [id number] Primary Care Nurse Practitioner: Lebron Manzo PhD, Phone: [phone] [facility] HCG ( test) Ql (U)o n 06-29-2024 Interpretation and review of laboratory results Normal [facility] Preg Test, Ur Negative [facility] Urinalysis macro (dipstick) panel (U)on 06-29-2024 Bilirubin, UA Negative Negative - 4(70) +++ mg/dL [facility] Blood, UA Positive Negative - 50 Brent/mcL [facility] Comment on above: trace Clarity, UA Clear [facility] Color, UA Yellow [facility] Glucose, UA Negative Negative - 1999(110) ++++ mg/dL [facility] Interpretation and review of laboratory results Normal [facility] Ketones, UA Negative Negative - 160(16) ++++ mg/dL [facility] Leukocytes, UA Negative Negative - 500+++ Kae/mcL [facility] Nitrite, UA Negative Negative - Positive [facility] pH, UA 5.5 5 - 9 [facility] Protein, UA Negative Negative - 1999(20) ++++ mg/dL [facility] Spec Grav, UA 1.020 1 - 1.03 [facility] Urobilinogen, UA 1.0 0.2 - 12 mg/dL [facility] Alanine aminotransferase [En zymatic activity/volume] in Serum or PlasmaOrdered By: PROVIDER TEMP on 06-17-2024 ALT [Catalytic activity/Vol] 15 U/L Normal 7-52 [facility] Comment on above: Performed By: #### C BC, HEPATIC, BMP, LIPASE #### [address] Albumin [Mass/volume] in Ser um or Plasma by Bromocresol green (BCG) dye binding methoOrdered By: PROVIDER TEMP on 06-17-2024 Albumin BCG dye [Mass/Vol] 4.5 g/dL 3.5-5.7 [facility] Alkaline phosphatase [Enzyma tic activity/volume] in Serum or PlasmaOrdered By: PROVIDER TEMP on 06-17-2024 ALP [Catalytic activity/Vol] 58 U/L Normal 34-104 [facility] Comment on above: Performed By: #### C BC, HEPATIC, BMP, LIPASE #### [facility] [address] [place] [address] Aspartate aminotransferase [ Enzymatic activity/volume] in Serum or PlasmaOrdered By: PROVIDER TEMP on 06-17-2024 AST [Catalytic activity/Vol] 17 U/L Normal 13-39 [facility] Comment on above: Performed By: #### C BC, HEPATIC, BMP, LIPASE #### [address] Automated basophil %Ordered By: PROVIDER TEMP on 06-17-2024 Basophils/100 WBC (Bld) 1.1 % Normal . [facility] Comment on above: Performed By: #### C BC, HEPATIC, BMP, LIPASE #### [address] Automated basophil countOrde red By: PROVIDER TEMP on 06-17-2024 Basophils (Bld) [#/Vol] 0.0 10*3/uL Normal 0.0-0.2 [facility] Comment on above: Result Comment: PERF ORMED BY: [place] [address] PATHOLOGIST TEENAGE PROGRAM DIRECTOR KHANG WEEKS M.D. Performed By: #### C BC, HEPATIC, BMP, LIPASE #### [facility] [address] Automated blood monocyte cou ntOrdered By: PROVIDER TEMP on 06-17-2024 Monocytes (Bld) [#/Vol] 0.3 10*3/uL Normal 0.0-0.8 [facility] Comment on above: Performed By: #### C BC, HEPATIC, BMP, LIPASE #### [facility] [address] Automated eosinophil %Ordere d By: PROVIDER TEMP on 06-17-2024 Eosinophils/100 WBC (Bld) 9.5 % Normal . [facility] Comment on above: Performed By: #### C BC, HEPATIC, BMP, LIPASE #### [address] Automated eosinophil countOr dered By: PROVIDER TEMP on 06-17-2024 Eosinophils (Bld) [#/Vol] 0.4 10*3/uL Normal 0.0-0.45 [facility] Comment on above: Performed By: #### C BC, HEPATIC, BMP, LIPASE #### [address] Automated monocyte %Ordered By: PROVIDER TEMP on 06-17-2024 Monocytes/100 WBC (Bld) 7.1 % Normal . [facility] Comment on above: Performed By: #### C BC, HEPATIC, BMP, LIPASE #### [address] Automated neutrophil %Ordere d By: PROVIDER TEMP on 06-17-2024 Neutrophils/100 WBC (Bld) 51.1 % Normal . [facility] Comment on above: Performed By: #### C BC, HEPATIC, BMP, LIPASE #### [address] Basic Metabolic Panelon 06-06 Creatinine Clr Calc Pharmacy 78.60 Normal [facility] Comment on above: Performed By: #### C BC, HEPATIC, BMP, LIPASE #### [address] GFR/1.73 sq M.predicted MDRD (S/P/Bld) [Vol rate/Area] mL/min/{1.73_m2} Normal [facility] Comment on above: Performed By: #### C BC, HEPATIC, BMP, LIPASE #### [facility] [address] [place] [address] Bilirubin Test strip Ql (U)O rdered By: PROVIDER TEMP on 06-17-2024 Bilirubin Ql (U) Negative Negative [facility] Bilirubin.direct [Mass/volum e] in Serum or PlasmaOrdered By: PROVIDER TEMP on 06-17-2024 Bilirubin.direct [Mass/Vol] 0.20 mg/dL High 0.03-0.18 [facility] Bilirubin.total [Mass/volume ] in Serum or PlasmaOrdered By: PROVIDER TEMP on 06-17-2024 Bilirubin [Mass/Vol] 0.8 mg/dL Normal 0.3-1.0 [facility] Comment on above: Performed By: #### C BC, HEPATIC, BMP, LIPASE #### [facility] [address] [place] [address] [place] Calcium [Mass/volume] in Ser um or PlasmaOrdered By: PROVIDER TEMP on 06-17-2024 Calcium [Mass/Vol] 9.2 mg/dL Normal 8.6-10.3 [facility] Comment on above: Performed By: #### C BC, HEPATIC, BMP, LIPASE #### [facility] [address] [place] [address] [place] Carbon dioxide, total [Moles /volume] in Serum or PlasmaOrdered By: PROVIDER TEMP on 06-17-2024 CO2 [Moles/Vol] 27.0 mmol/L Normal 21.0-31.0 [facility] Comment on above: Performed By: #### C BC, HEPATIC, BMP, LIPASE #### [facility] [address] [place] [address] [place] Chloride [Moles/volume] in S mehdi or PlasmaOrdered By: PROVIDER TEMP on 06-17-2024 Chloride [Moles/Vol] 106 mmol/L Normal 98-107 [facility] Comment on above: Performed By: #### C BC, HEPATIC, BMP, LIPASE #### [address] Color of Urine by AutoOrdere d By: PROVIDER TEMP on 06-17-2024 Color (U) Light-yellow Normal Yellow [facility] Comment on above: Order Comment: Name Collection Type:: Clean-Voided Midstream Performed By: #### C BC, HEPATIC, BMP, LIPASE #### [address] Complete Blood Count Auto Di ffon 06-17-2024 Mean Corpuscular HGB Conc 34.6 g/dL Normal 32.0-35.0 [facility] Comment on above: Performed By: #### C BC, HEPATIC, BMP, LIPASE #### [address] Monocytes/100 WBC (Bld) 16.54 % Normal 0.00-20.00 [facility] Comment on above: Performed By: #### C BC, HEPATIC, BMP, LIPASE #### [address] NRBC% 0.1 /100{WBC} Normal 0-0.5 [facility] Comment on above: Performed By: #### C BC, HEPATIC, BMP, LIPASE #### [address] Creatinine [Mass/volume] in Serum or PlasmaOrdered By: PROVIDER TEMP on 06-17-2024 Creatinine [Mass/Vol] 0.85 mg/dL Normal 0.60-1.20 [facility] Comment on above: Performed By: #### C BC, HEPATIC, BMP, LIPASE #### [address] Erythrocyte distribution wid th [Ratio] by Automated countOrdered By: PROVIDER TEMP on 06-17-2024 Erythrocyte distribution width (RBC) [Ratio] 12.7 % Normal 11.9-15.3 [facility] Comment on above: Performed By: #### C BC, HEPATIC, BMP, LIPASE #### [address] Erythrocytes [#/volume] in B lood by Automated countOrdered By: PROVIDER TEMP on 06-17-2024 RBC (Bld) [#/Vol] 4.50 10*6/uL Normal 3.60-5.00 [facility] Comment on above: Performed By: #### C BC, HEPATIC, BMP, LIPASE #### [facility] [address] [place] [address] [place] Glucose [Mass/volume] in Ser um or PlasmaOrdered By: PROVIDER TEMP on 06-17-2024 Glucose [Mass/Vol] 86 mg/dL Normal 70-100 [facility] Comment on above: ADA recommended refe rence rangeRandom Glucose Reference Range is dependent on time and content of last meal. Glucose of more than 200 mg/dL in a nonstressed, ambulatory subject supports the diagnosis of Diabetes Mellitus. Result Comment: [place] Glucose Reference Range is dependent on time and content of last meal. Glucose of more than 200 mg/dL in a nonstressed, ambulatory subject supports the diagnosis of Diabetes Mellitus. ADA recommended reference range Performed By: #### C BC, HEPATIC, BMP, LIPASE #### [facility] [address] [place] [id number] [place] Glucose [Mass/volume] in Uri ne by Test stripOrdered By: PROVIDER TEMP on 06-17-2024 Glucose Test strip (U) [Mass/Vol] Normal mg/dL Normal [facility] HCG ( test) IA.rapi d Ql (U)Ordered By: PROVIDER TEMP on 06-17-2024 HCG ( test) Ql (U) Negative [facility] HCG,Urineon 06-17-2024 Beta HCG ( test) Ql (U) Negative Normal [facility] Comment on above: Order Comment: Name Collection Type:: Clean-Voided Midstream Result Comment: PERF ORMED BY: [facility] [address] [place] [address] PATHOLOGIST TEENAGE PROGRAM DIRECTOR KHANG WEEKS M.D. Performed By: #### C BC, HEPATIC, BMP, LIPASE #### [facility] [address] [place] [id number] [place] Hematocrit [Volume Fraction] of Blood by Automated countOrdered By: PROVIDER TEMP on 06-17-2024 Hematocrit (Bld) [Volume fraction] 41.7 % Normal 34.0-46.4 [facility] Comment on above: Performed By: #### C BC, HEPATIC, BMP, LIPASE #### [facility] [address] Hemoglobin Test strip Ql (U) Ordered By: PROVIDER TEMP on 06-17-2024 Hemoglobin Ql (U) Negative Negative [facility] Hemoglobin [Mass/volume] in BloodOrdered By: PROVIDER TEMP on 06-17-2024 Hemoglobin (Bld) [Mass/Vol] 14.4 g/dL Normal 11.8-15.4 [facility] Comment on above: Performed By: #### C BC, HEPATIC, BMP, LIPASE #### [address] Hepatic Panelon 06-17-2024 Albumin [Mass/Vol] 4.5 g/dL Normal 3.5-5.7 [facility] Comment on above: Performed By: #### C BC, HEPATIC, BMP, LIPASE #### [address] Bilirubin,Indirect 0.6 mg/dL Normal [facility] Comment on above: Performed By: #### C BC, HEPATIC, BMP, LIPASE #### [address] Bilirubin.indirect [Mass/Vol] 0.20 mg/dL High 0.03-0.18 [facility] Comment on above: Performed By: #### C BC, HEPATIC, BMP, LIPASE #### [address] Ketones [Presence] in Urine by Test stripOrdered By: PROVIDER TEMP on 06-17-2024 Ketones Ql (U) 1+ High Negative [facility] Comment on above: Order Comment: Name Collection Type:: Clean-Voided Midstream Performed By: #### C BC, HEPATIC, BMP, LIPASE #### [address] Leukocyte esterase [Presence ] in Urine by Test stripOrdered By: PROVIDER TEMP on 06-17-2024 Leukocyte esterase Test strip Ql (U) Negative Normal Negative [facility] Comment on above: Order Comment: Name Collection Type:: Clean-Voided Midstream Performed By: #### C BC, HEPATIC, BMP, LIPASE #### [facility] [address] Leukocytes [#/volume] correc ira for nucleated erythrocytes in Blood by Automated counOrdered By: PROVIDER TEMP on 06-17-2024 WBC corrected for nucl RBC Auto (Bld) [#/Vol] 4.4 10*3/uL 3.8-11.6 [facility] Leukocytes [#/volume] in Blo od by Automated countOrdered By: PROVIDER TEMP on 06-17-2024 WBC (Bld) [#/Vol] 4.4 10*3/uL Normal 3.8-11.6 [facility] Comment on above: Performed By: #### C BC, HEPATIC, BMP, LIPASE #### [address] Lipase [Enzymatic activity/v olume] in Serum or PlasmaOrdered By: PROVIDER TEMP on 06-17-2024 Lipase [Catalytic activity/Vol] 16.0 U/L Normal 11.0-82.0 [facility] Comment on above: Result Comment: PERF ORMED BY: [place] [address] PATHOLOGIST TEENAGE PROGRAM DIRECTOR KHANG WEEKS M.D. Performed By: #### C BC, HEPATIC, BMP, LIPASE #### [facility] [address] [place] [address] [place] Lymphocytes [#/volume] in Bl ood by Automated countOrdered By: PROVIDER TEMP on 06-17-2024 Lymphocytes (Bld) [#/Vol] 1.4 10*3/uL Normal 1.00-4.8 [facility] Comment on above: Performed By: #### C BC, HEPATIC, BMP, LIPASE #### [place] [address] [place] Lymphocytes/100 leukocytes i n Blood by Automated countOrdered By: PROVIDER TEMP on 06-17-2024 Lymphocytes/100 WBC (Bld) 31.2 % Normal . [facility] Comment on above: Performed By: #### C BC, HEPATIC, BMP, LIPASE #### [address] MCH [Entitic mass] by Automa ira countOrdered By: PROVIDER TEMP on 06-17-2024 MCH (RBC) [Entitic mass] 32.1 pg Normal 24.7-34.3 [facility] Comment on above: Performed By: #### C BC, HEPATIC, BMP, LIPASE #### [facility] [address] [place] [address] MCHC Auto (RBC) [Mass/Vol]Or dered By: PROVIDER TEMP on 06-17-2024 MCHC (RBC) [Mass/Vol] 34.6 g/dL 32.0-35.0 [facility] MCV [Entitic volume] by Auto mated countOrdered By: PROVIDER TEMP on 06-17-2024 MCV (RBC) [Entitic vol] 92.6 fL Normal 80-100 [facility] Comment on above: Performed By: #### C BC, HEPATIC, BMP, LIPASE #### [address] Monocyte distribution width [Entitic volume] in Blood by AutomatedOrdered By: PROVIDER TEMP on 06-17-2024 Monocyte distribution width Auto (Bld) [Entitic vol] 16.54 % 0.00-20.00 [facility] Neutrophils [#/volume] in Bl ood by Automated countOrdered By: PROVIDER TEMP on 06-17-2024 Neutrophils (Bld) [#/Vol] 2.2 10*3/uL Normal 1.8-7.7 [facility] Comment on above: Performed By: #### C BC, HEPATIC, BMP, LIPASE #### [address] Nitrite Test strip Ql (U)Ord ered By: PROVIDER TEMP on 06-17-2024 Nitrite Ql (U) Negative Negative [facility] No Panel InformationOrdered By: PROVIDER TEMP on 06-17-2024 Estimated GFR (CKD-EPI) > 60.0 mL/Min [facility] Creatinine Clearance (Chem 78.60 [facility] Nucleated erythrocytes [Pres ence] in Blood by Automated countOrdered By: PROVIDER TEMP on 06-17-2024 Nucleated RBC Auto Ql (Bld) 0.1 /100{WBC} 0-0.5 [facility] Platelet mean volume [Entiti c volume] in Blood by Automated countOrdered By: PROVIDER TEMP on 06-17-2024 Platelet mean volume (Bld) [Entitic vol] 7.5 fL Normal 6.3-10.7 [facility] Comment on above: Performed By: #### C BC, HEPATIC, BMP, LIPASE #### [facility] [address] Platelets [#/volume] in Bloo d by Automated countOrdered By: PROVIDER TEMP on 06-17-2024 Platelets (Bld) [#/Vol] 210 10*3/uL Normal 150-450 [facility] Comment on above: Performed By: #### C BC, HEPATIC, BMP, LIPASE #### [facility] [address] [place] [address] [place] Potassium [Moles/volume] in Serum or PlasmaOrdered By: PROVIDER TEMP on 06-17-2024 Potassium [Moles/Vol] 3.6 mmol/L Normal 3.5-5.1 [facility] Comment on above: Performed By: #### C BC, HEPATIC, BMP, LIPASE #### [facility] [address] Protein Test strip (U) [Mass /Vol]Ordered By: PROVIDER TEMP on 06-17-2024 Protein (U) [Mass/Vol] Negative Negative [facility] Protein [Mass/volume] in Ser um or PlasmaOrdered By: PROVIDER TEMP on 06-17-2024 Protein [Mass/Vol] 7.0 g/dL Normal 6.4-8.9 [facility] Comment on above: Performed By: #### C BC, HEPATIC, BMP, LIPASE #### [facility] [address] Serum globulin measurement b y calculation (mass/volume)Ordered By: PROVIDER TEMP on 06-17-2024 Globulin (S) [Mass/Vol] 2.5 g/dL Normal [facility] Comment on above: Performed By: #### C BC, HEPATIC, BMP, LIPASE #### [facility] [address] Serum or plasma albumin/glob ulin mass ratioOrdered By: PROVIDER TEMP on 06-17-2024 Albumin/Globulin [Mass ratio] 1.8 {ratio} Normal [facility] Comment on above: Performed By: #### C BC, HEPATIC, BMP, LIPASE #### [address] Serum or plasma anion gap de terminationOrdered By: PROVIDER TEMP on 06-17-2024 Anion gap [Moles/Vol] 6.6 mmol/L Normal 6.0-15.0 [facility] Comment on above: Performed By: #### C BC, HEPATIC, BMP, LIPASE #### [address] Serum or plasma non-glucuron idated bilirubin measurement (mass/volume)Ordered By: PROVIDER TEMP on 06-17-2024 Bilirubin.indirect [Mass/Vol] 0.6 mg/dL [facility] Sodium [Moles/volume] in Ser um or PlasmaOrdered By: PROVIDER TEMP on 06-17-2024 Sodium [Moles/Vol] 136 mmol/L Normal 136-145 [facility] Comment on above: Performed By: #### C BC, HEPATIC, BMP, LIPASE #### [facility] [address] [place] [address] Specific gravity Test strip (U) [Rel density]Ordered By: PROVIDER TEMP on 06-17-2024 Specific gravity (U) [Rel density] 1.018 1.001-1.030 [facility] Urea nitrogen [Mass/volume] in Serum or PlasmaOrdered By: PROVIDER TEMP on 06-17-2024 Urea nitrogen [Mass/Vol] 9 mg/dL Normal 7-25 [facility] Comment on above: Performed By: #### C BC, HEPATIC, BMP, LIPASE #### [facility] [address] [place] [address] Urinalysison 06-17-2024 Bilirubin,Urine Negative Normal Negative [facility] Comment on above: Order Comment: Name Collection Type:: Clean-Voided Midstream Performed By: #### C BC, HEPATIC, BMP, LIPASE #### [address] Glucose Ql (U) Normal Normal Normal [facility] Comment on above: Order Comment: Name Collection Type:: Clean-Voided Midstream Performed By: #### C BC, HEPATIC, BMP, LIPASE #### [address] Nitrite,Urine Negative Normal Negative [facility] Comment on above: Order Comment: Name Collection Type:: Clean-Voided Midstream Performed By: #### C BC, HEPATIC, BMP, LIPASE #### [address] Occult Blood,Urine Negative Normal Negative [facility] Comment on above: Order Comment: Name Collection Type:: Clean-Voided Midstream Performed By: #### C BC, HEPATIC, BMP, LIPASE #### [address] Protein,Urine Negative Normal Negative [facility] Comment on above: Order Comment: Name Collection Type:: Clean-Voided Midstream Performed By: #### C BC, HEPATIC, BMP, LIPASE #### [address] Specificy [place],Urine 1.018 Normal 1.001-1.030 [facility] Comment on above: Order Comment: Name Collection Type:: Clean-Voided Midstream Performed By: #### C BC, HEPATIC, BMP, LIPASE #### [address] Urobilinogen,Urine Normal Normal Normal [facility] Comment on above: Order Comment: Name Collection Type:: Clean-Voided Midstream Performed By: #### C BC, HEPATIC, BMP, LIPASE #### [facility] [address] Urine appearanceOrdered By: PROVIDER TEMP on 06-17-2024 Appearance (U) Clear Normal Clear [facility] Comment on above: Order Comment: Name Collection Type:: Clean-Voided Midstream Performed By: #### C BC, HEPATIC, BMP, LIPASE #### [facility] [address] Urobilinogen Test strip (U) [Mass/Vol]Ordered By: PROVIDER TEMP on 06-17-2024 Urobilinogen (U) [Mass/Vol] Normal mg/dL Normal [facility] pH of Urine by Test stripOrd ered By: PROVIDER TEMP on 06-17-2024 pH (U) 6.0 [pH] Normal 5.0-9.0 [facility] Comment on above: Order Comment: Name Collection Type:: Clean-Voided Midstream Performed By: #### C BC, HEPATIC, BMP, LIPASE #### [address] Choriogonadotropin.beta subu nit [Units/volume] in Serum or PlasmaOrdered By: Dominic Hester on 04-24-2024 HCG.beta subunit Qn m[IU]/mL [facility] Comment on above: Approximate Approxim ate hCG Gestational Age Range (mIU/ml) (weeks)0.2-1 5-50 1-2 50-500 2-3 100-5,000 3-4 500-10,000 4-5 1,000-50,000 5-6 10,000-100,000 6-8 15,000-200,000 8-12 10,000-100,000 HCG,Quantitativeon 4 HCG,Quantitative < 0.60 Normal [facility] Comment on above: Result Comment: Appr oximate Approximate hCG Gestational Age Range (mIU/ml) (weeks) 0.2-1 5-50 1-2 50-500 2-3 100-5,000 3-4 500-10,000 4-5 1,000-50,000 5-6 10,000-100,000 6-8 15,000-200,000 8-12 10,000-100,000 PERFORMED BY: [facility] [address] [place] [address] PATHOLOGIST TEENAGE PROGRAM DIRECTOR KHANG WEEKS M.D. Performed By: #### C BC, HEPATIC, BMP, LIPASE #### [facility] [address] Basophils Auto (Bld) [#/Vol] Ordered By: Nahun Romero on 03-28-2023 Basophils (Bld) [#/Vol] 0.0 10*3/uL 0.0-0.2 [facility] Basophils/100 WBC Auto (Bld) Ordered By: Nahun Romero on 03-28-2023 Basophils/100 WBC (Bld) 0.8 % . [facility] Choriogonadotropin.beta subu nit [Units/volume] in Serum or PlasmaOrdered By: Nahun Romero on 03-28-2023 HCG.beta subunit Qn m[IU]/mL [facility] Comment on above: Approximate Approxim ate hCG Gestational Age Range (mIU/ml) (weeks)0.2-1 5-50 1-2 50-500 2-3 100-5,000 3-4 500-10,000 4-5 1,000-50,000 5-6 10,000-100,000 6-8 15,000-200,000 8-12 10,000-100,000 Eosinophils Auto (Bld) [#/Vo l]Ordered By: Nahun Romero on 03-28-2023 Eosinophils (Bld) [#/Vol] 0.2 10*3/uL 0.0-0.45 [facility] Eosinophils/100 WBC Auto (Bl d)Ordered By: Nahun Romero on 03-28-2023 Eosinophils/100 WBC (Bld) 4.7 % . [facility] Erythrocyte distribution wid th Auto (RBC) [Ratio]Ordered By: Nahun Romero on 03-28-2023 Erythrocyte distribution width (RBC) [Ratio] 13.0 % 11.9-15.3 [facility] Hematocrit Auto (Bld) [Volum e fraction]Ordered By: Nahun Romero on 03-28-2023 Hematocrit (Bld) [Volume fraction] 38.0 % 34.0-46.4 [facility] Hemoglobin [Mass/volume] in BloodOrdered By: Nahun Romero on 03-28-2023 Hemoglobin (Bld) [Mass/Vol] 12.9 g/dL 11.8-15.4 [facility] Leukocytes [#/volume] correc ira for nucleated erythrocytes in Blood by Automated counOrdered By: Nahun Romero on 03-28-2023 WBC corrected for nucl RBC Auto (Bld) [#/Vol] 4.1 10*3/uL 3.8-11.6 [facility] Lymphocytes Auto (Bld) [#/Vo l]Ordered By: Nahun Romero on 03-28-2023 Lymphocytes (Bld) [#/Vol] 1.0 10*3/uL 1.00-4.8 [facility] Lymphocytes/100 WBC Auto (Bl d)Ordered By: Nahun Romero on 03-28-2023 Lymphocytes/100 WBC (Bld) 23.9 % . [facility] MCH Auto (RBC) [Entitic mass ]Ordered By: Nahun Romero on 03-28-2023 MCH (RBC) [Entitic mass] 31.3 pg 24.7-34.3 [facility] MCHC Auto (RBC) [Mass/Vol]Or dered By: Nahun Romero on 03-28-2023 MCHC (RBC) [Mass/Vol] 33.9 g/dL 32.0-35.0 [facility] MCV Auto (RBC) [Entitic vol] Ordered By: Nahun Romero on 03-28-2023 MCV (RBC) [Entitic vol] 92.3 fL 80-100 [facility] Monocytes Auto (Bld) [#/Vol] Ordered By: Nahun Romero on 03-28-2023 Monocytes (Bld) [#/Vol] 0.3 10*3/uL 0.0-0.8 [facility] Monocytes/100 WBC Auto (Bld) Ordered By: Nahun Romero on 03-28-2023 Monocytes/100 WBC (Bld) 7.5 % . [facility] Neutrophils Auto (Bld) [#/Vo l]Ordered By: Nahun Romero on 03-28-2023 Neutrophils (Bld) [#/Vol] 2.6 10*3/uL 1.8-7.7 [facility] Neutrophils/100 WBC Auto (Bl d)Ordered By: Nahun Romero on 03-28-2023 Neutrophils/100 WBC (Bld) 63.1 % . [facility] Nucleated erythrocytes [Pres ence] in Blood by Automated countOrdered By: Nahun Romero on 03-28-2023 Nucleated RBC Auto Ql (Bld) 0.1 /100{WBC} 0-0.5 [facility] Platelet mean volume Auto (B ld) [Entitic vol]Ordered By: Nahun Romero on 03-28-2023 Platelet mean volume (Bld) [Entitic vol] 8.8 fL 6.3-10.7 [facility] Platelets Auto (Bld) [#/Vol] Ordered By: Nahun Romero on 03-28-2023 Platelets (Bld) [#/Vol] 196 10*3/uL 150-450 [facility] Prolactin [Mass/volume] in S mehdi or PlasmaOrdered By: Nahun Romero on 03-28-2023 Prolactin [Mass/Vol] 3.20 ng/mL 3.34-26.72 [facility] RBC Auto (Bld) [#/Vol]Ordere d By: Nahun Romero on 03-28-2023 RBC (Bld) [#/Vol] 4.12 10*6/uL 3.60-5.00 [facility] Thyrotropin [Units/volume] i n Serum or PlasmaOrdered By: Nahun Romero on 03-28-2023 TSH Qn 1.31 m[IU]/L 0.45-5.33 [facility] WBC Auto (Bld) [#/Vol]Ordere d By: Nahun Romero on 03-28-2023 WBC (Bld) [#/Vol] 4.1 10*3/uL 3.8-11.6 [facility] US PREG TVon 01-20-2023 US PREG [...] KENNEDY LEHMAN Date: 2023-01-19 23:22 Normal [facility] CBC AUTO DIFFon 01-17-2023 BASO # 0.0 103/ul Normal 0.0-0.1 [facility] Comment on above: Performed By: #### C MP LIPA, NAHUN #### [facility] [address] [place] [address] Dr. Lester Yen Basophils/100 WBC (Bld) 1.1 % Normal 0.2-2.0 [facility] Comment on above: Performed By: #### C ASHOK LIPA, NAHUN #### [facility] [address] [address] [address] Lester Yen EO # 0.2 103/ul Normal 0.0-0.7 [facility] Comment on above: Performed By: #### C ASHOK LIPA, NAHUN #### [facility] [address] [address] [address] Lester Yen Eosinophils/100 WBC (Bld) 5.4 % Normal 0.9-7.0 [facility] Comment on above: Performed By: #### C MP LIPA, NAHUN #### [facility] [address] [address] [address] Lester Yen Erythrocyte distribution width (RBC) [Ratio] 12.4 % Normal 11.0-15.0 [facility] Comment on above: Performed By: #### C MP LIPA, NAHUN #### [facility] [address] [address] [address] Lester Yen Hematocrit (Bld) [Volume fraction] 37.7 % Normal 36.0-48.0 [facility] Comment on above: Performed By: #### C ANJU PULIDO, NAHUN #### [facility] [address] [place] [address] Dr. Lester Yen Hemoglobin (Bld) [Mass/Vol] 13.2 g/dL Normal 12.0-16.0 [facility] Comment on above: Performed By: #### C ANJU PULIDO, NAHUN #### [facility] [address] [place] [address] Dr. Lester Yen IG # 0.01 10e3/ul Normal 0.00-0.03 [facility] Comment on above: Performed By: #### C ANJU PULIDO, NAHUN #### [facility] [address] [place] [address] Dr. Lester Yen IG % 0.3 % Normal 0.0-0.5 [facility] Comment on above: Performed By: #### C ANJU PULIDO, NAHUN #### [facility] [address] [place] [address] Dr. Lester Yen LYMPH # 1.1 103/ul Critically low 1.2-3.8 [facility] Comment on above: Performed By: #### C ANUJ PULIDO, NAHUN #### [facility] [address] [place] [address] Dr. Lester Yen Lymphocytes/100 WBC (Bld) 28.3 % Normal 20.5-60.0 [facility] Comment on above: Performed By: #### C ANJU PULIDO, NAHUN #### [facility] [address] [place] [address] Dr. Lester Yen MANUAL DIFF REQ NO Normal [facility] Comment on above: Performed By: #### C ANJU PULIDO, NAHUN #### [facility] [address] [place] [address] Dr. Lester Yen MCH (RBC) [Entitic mass] 31.5 pg Normal 26.7-34.0 [facility] Comment on above: Performed By: #### C ANJU PULIDO, NAHUN #### [facility] [address] [place] [address] Dr. Lester Yen MCHC (RBC) [Mass/Vol] 35.0 g/dL Normal 29.9-35.2 [facility] Comment on above: Performed By: #### C MP, LIPA, NAHUN #### [facility] [address] [place] [address] Dr. Lester Yen MCV (RBC) [Entitic vol] 90.0 fL Normal 81.0-99.0 [facility] Comment on above: Performed By: #### C MP, LIPA, NAHUN #### [facility] [address] [place] [address] Dr. Lester Yen MONO # 0.3 103/ul Normal 0.3-0.8 [facility] Comment on above: Performed By: #### C MP, LIPA, NAHUN #### [facility] [address] [place] [address] Dr. Lester Yen Monocytes/100 WBC (Bld) 9.2 % Normal 1.7-12.0 [facility] Comment on above: Performed By: #### C MP, LIPA, NAHUN #### [facility] [address] [place] [address] Dr. Lester Yen NEUT # 2.1 103/ul Normal 1.4-6.5 [facility] Comment on above: Performed By: #### C MP, LIPA, NAHUN #### [facility] [address] [place] [address] Dr. Lester Yen Neutrophils/100 WBC (Bld) 55.7 % Normal 43.0-75.0 [facility] Comment on above: Performed By: #### C MP, LIPA, NAHUN #### [facility] [address] [place] [address] Dr. Lester Yen Platelet mean volume (Bld) [Entitic vol] 9.2 fL Critically low 9.5-13.5 [facility] Comment on above: Performed By: #### C MP, LIPA, NAHUN #### [facility] [address] [place] [address] Dr. Lester Yen PLT 209 103/ul Normal 150-450 [facility] Comment on above: Performed By: #### C ANJU PULIDO, NAHUN #### [facility] [address] [address] [address] Lester Yne RBC 4.19 106/ul Critically low 4.20-5.40 [facility] Comment on above: Performed By: #### C ANJU PULIDO, NAHUN #### [facility] [address] [address] [address] Lester Yen WBC 3.7 103/ul Critically low 4.0-11.0 [place] Comment on above: Performed By: #### C ANJU PULIDO, NAHUN #### [facility] [address] [place] [address] Dr. Lester Yen TYPE AND SCREENon 01-17-2023 TYPE AND SCREEN Negative Normal [facility] Comment on above: Performed By: #### C ANJU PULIDO NAHUN #### [facility] [address] [address] [address] Lester Yen Alanine aminotransferase [En zymatic activity/volume] in Serum or PlasmaOrdered By: Monika Camarillo on 01-03-2023 ALT [Catalytic activity/Vol] 13 U/L 7-52 [facility] Albumin [Mass/volume] in Ser um or Plasma by Bromocresol green (BCG) dye binding methoOrdered By: Monika Camarillo on 01-03-2023 Albumin BCG dye [Mass/Vol] 4.7 g/dL 3.5-5.7 [facility] Alkaline phosphatase [Enzyma tic activity/volume] in Serum or PlasmaOrdered By: Monika Camarillo on 01-03-2023 ALP [Catalytic activity/Vol] 47 U/L 34-104 [facility] Aspartate aminotransferase [ Enzymatic activity/volume] in Serum or PlasmaOrdered By: Monika Camarillo on 01-03-2023 AST [Catalytic activity/Vol] 15 U/L 13-39 [facility] Basophils Auto (Bld) [#/Vol] Ordered By: Monika Camarillo on 01-03-2023 Basophils (Bld) [#/Vol] 0.0 10*3/uL 0.0-0.2 [facility] Basophils/100 WBC Auto (Bld) Ordered By: Monika Camarillo on 01-03-2023 Basophils/100 WBC (Bld) 0.3 % . [facility] Bilirubin Test strip Ql (U)O rdered By: Monika Camarillo on 01-03-2023 Bilirubin Ql (U) Negative Negative [facility] Bilirubin.total [Mass/volume ] in Serum or PlasmaOrdered By: Monika Camarillo on 01-03-2023 Bilirubin [Mass/Vol] 0.8 mg/dL 0.3-1.0 [facility] Calcium [Mass/volume] in Ser um or PlasmaOrdered By: Monika Camarillo on 01-03-2023 Calcium [Mass/Vol] 9.2 mg/dL 8.6-10.3 [facility] Carbon dioxide, total [Moles /volume] in Serum or PlasmaOrdered By: Monika Camarillo on 01-03-2023 CO2 [Moles/Vol] 23.8 mmol/L 21.0-31.0 [facility] Chloride [Moles/volume] in S mehdi or PlasmaOrdered By: Monika Camarillo on 01-03-2023 Chloride [Moles/Vol] 105 mmol/L 98-107 [facility] Choriogonadotropin.beta subu nit [Units/volume] in Serum or PlasmaOrdered By: Monika Camarillo on 01-03-2023 [place] [address].00 m[IU]/mL [facility] Comment on above: Approximate Approxim ate hCG Gestational Age Range (mIU/ml) (weeks)0.2-1 5-50 1-2 50-500 2-3 100-5,000 3-4 500-10,000 4-5 1,000-50,000 5-6 10,000-100,000 6-8 15,000-200,000 8-12 10,000-100,000 Color Auto (U)Ordered By: Po Camarillo on 01-03-2023 Color (U) Yellow Yellow [facility] Creatinine [Mass/volume] in Serum or PlasmaOrdered By: Monika Camarillo on 01-03-2023 Creatinine [Mass/Vol] 0.71 mg/dL 0.60-1.20 [facility] ER URINE PROFILEon 3 Bilirubin Ql (U) Negative Normal NEGATIVE [facility] Comment on above: Performed By: #### E RUR #### [facility] [address] [place] [address] Dr. Lester Yen Clarity (U) CLEAR Normal CLEAR [facility] Comment on above: Performed By: #### E RUR #### [facility] [address] [place] [address] Dr. Lester Yen Color (U) LT. YELLOW Normal YELLOW [facility] Comment on above: Performed By: #### E RUR #### [facility] [address] [place] [address] Dr. Lester LEA A micrscopic examination will be performed if indicated. Normal [facility] Comment on above: Performed By: #### E RUR #### [facility] [address] [place] [address] Dr. Lester Yen Glucose Ql (U) Negative Normal NEGATIVE [facility] Comment on above: Performed By: #### E RUR #### [facility] [address] [place] [address] Dr. Lester Yen Hemoglobin Ql (U) Negative Normal NEGATIVE [facility] Comment on above: Performed By: #### E RUR #### [facility] [address] [place] [address] Dr. Lester Yen Ketones Ql (U) 15 mg/dl Abnormal NEGATIVE [facility] Comment on above: Performed By: #### E RUR #### [facility] [address] [place] [address] Dr. Lester Yen LEUKOCYTES Negative Normal NEGATIVE [facility] Comment on above: Performed By: #### E RUR #### [facility] [address] [place] [address] Dr. Lester Yen Nitrite Ql (U) Negative Normal NEGATIVE [place] Comment on above: Performed By: #### E RUR #### [facility] [address] [address] [address] Lester Yen pH (U) 6.0 [pH] Normal 5-9 [facility] Comment on above: Performed By: #### E RUR #### [facility] [address] [place] [address] Dr. Lester Yen SPEC GRAVITY <=1.005 Abnormal 1.005-<=1.02 5 [facility] Comment on above: Performed By: #### E RUR #### [facility] [address] [place] [address] Dr. Lester Yen UA PROTEIN Negative Normal NEGATIVE/ TRACE [facility] Comment on above: Performed By: #### E RUR #### [facility] [address] [place] [address] Dr. Lester Yen UR MICRO IND NOT INDICATED Normal [facility] Comment on above: Performed By: #### E RUR #### [facility] [address] [place] [address] Dr. Lester Yen Urobilinogen Qn (U) 0.2 {Olivier'U}/dL Normal 0.2 - 1. 0 [facility] Comment on above: Performed By: #### E RUR #### [facility] [address] [place] [address] Dr. Lester Yen Eosinophils Auto (Bld) [#/Vo l]Ordered By: Monika Camarillo on 01-03-2023 Eosinophils (Bld) [#/Vol] 0.3 10*3/uL 0.0-0.45 [facility] Eosinophils/100 WBC Auto (Bl d)Ordered By: Monika aCmarillo on 01-03-2023 Eosinophils/100 WBC (Bld) 5.4 % . [facility] Erythrocyte distribution wid th Auto (RBC) [Ratio]Ordered By: Monika Camarillo on 01-03-2023 Erythrocyte distribution width (RBC) [Ratio] 12.7 % 11.9-15.3 [facility] Globulin Calc (S) [Mass/Vol] Ordered By: Monika Camarillo on 01-03-2023 Globulin (S) [Mass/Vol] 2.1 g/dL [facility] Glucose [Mass/volume] in Ser um or PlasmaOrdered By: Monika Camarillo on 01-03-2023 Glucose [Mass/Vol] 85 mg/dL 70-100 [facility] Comment on above: ADA recommended refe rence rangeRandom Glucose Reference Range is dependent on time and content of last meal. Glucose of more than 200 mg/dL in a nonstressed, ambulatory subject supports the diagnosis of Diabetes Mellitus. Hematocrit Auto (Bld) [Volum e fraction]Ordered By: Monika Camarillo on 01-03-2023 Hematocrit (Bld) [Volume fraction] 39.8 % 34.0-46.4 [facility] Hemoglobin [Mass/volume] in BloodOrdered By: Monika Camarillo on 01-03-2023 Hemoglobin (Bld) [Mass/Vol] 13.4 g/dL 11.8-15.4 [facility] Ketones Auto test strip (U) [Mass/Vol]Ordered By: Moniak Camarillo on 01-03-2023 Ketones (U) [Mass/Vol] Negative Negative [facility] Leukocytes [#/volume] correc ira for nucleated erythrocytes in Blood by Automated counOrdered By: Monika Camarillo on 01-03-2023 WBC corrected for nucl RBC Auto (Bld) [#/Vol] 5.7 10*3/uL 3.8-11.6 [facility] Lipase [Enzymatic activity/v olume] in Serum or PlasmaOrdered By: Monika Camarillo on 01-03-2023 Lipase [Catalytic activity/Vol] 17.0 U/L 11.0-82.0 [facility] Lymphocytes Auto (Bld) [#/Vo l]Ordered By: Monika Camarillo on 01-03-2023 Lymphocytes (Bld) [#/Vol] 0.9 10*3/uL 1.00-4.8 [facility] Lymphocytes/100 WBC Auto (Bl d)Ordered By: Monika Camarillo on 01-03-2023 Lymphocytes/100 WBC (Bld) 15.2 % . [facility] MCH Auto (RBC) [Entitic mass ]Ordered By: Monika Camarillo on 01-03-2023 MCH (RBC) [Entitic mass] 31.0 pg 24.7-34.3 [facility] MCHC Auto (RBC) [Mass/Vol]Or dered By: Monika Camarillo on 01-03-2023 MCHC (RBC) [Mass/Vol] 33.6 g/dL 32.0-35.0 [facility] MCV Auto (RBC) [Entitic vol] Ordered By: Monika Camarillo on 01-03-2023 MCV (RBC) [Entitic vol] 92.2 fL 80-100 [facility] Monocyte distribution width [Entitic volume] in Blood by AutomatedOrdered By: Monika Camarillo on 01-03-2023 Monocyte distribution width Auto (Bld) [Entitic vol] 17.53 % 0.00-20.00 [facility] Monocytes Auto (Bld) [#/Vol] Ordered By: Monika Camarillo on 01-03-2023 Monocytes (Bld) [#/Vol] 0.4 10*3/uL 0.0-0.8 [facility] Monocytes/100 WBC Auto (Bld) Ordered By: Monika Camarillo on 01-03-2023 Monocytes/100 WBC (Bld) 6.5 % . [facility] Neutrophils Auto (Bld) [#/Vo l]Ordered By: Monika Camarillo on 01-03-2023 Neutrophils (Bld) [#/Vol] 4.1 10*3/uL 1.8-7.7 [facility] Neutrophils/100 WBC Auto (Bl d)Ordered By: Monika Camarillo on 01-03-2023 Neutrophils/100 WBC (Bld) 72.6 % . [facility] Nitrite Test strip Ql (U)Ord ered By: Monika Camarillo on 01-03-2023 Nitrite Ql (U) Negative Negative [facility] No Panel InformationOrdered By: Monika Camarillo on 01-03-2023 Estimated GFR (CKD-EPI) > 60.0 mL/Min [facility] Creatinine Clearance (Chem 94.97 [facility] Nucleated erythrocytes [Pres ence] in Blood by Automated countOrdered By: Monika Camarillo on 01-03-2023 Nucleated RBC Auto Ql (Bld) 0.1 /100{WBC} 0-0.5 [facility] Platelet mean volume Auto (B ld) [Entitic vol]Ordered By: Monika Camarillo on 01-03-2023 Platelet mean volume (Bld) [Entitic vol] 7.5 fL 6.3-10.7 [facility] Platelets Auto (Bld) [#/Vol] Ordered By: Monika Camarillo on 01-03-2023 Platelets (Bld) [#/Vol] 187 10*3/uL 150-450 [facility] Potassium [Moles/volume] in Serum or PlasmaOrdered By: Monika Camarillo on 01-03-2023 Potassium [Moles/Vol] 3.7 mmol/L 3.5-5.1 [facility] Protein Auto test strip (U) [Mass/Vol]Ordered By: Monika Camarillo on 01-03-2023 Protein (U) [Mass/Vol] Negative Negative [facility] Protein [Mass/volume] in Ser um or PlasmaOrdered By: Monika Camarillo on 01-03-2023 Protein [Mass/Vol] 6.8 g/dL 6.4-8.9 [facility] RBC Auto (Bld) [#/Vol]Ordere d By: Monika Camarillo on 01-03-2023 RBC (Bld) [#/Vol] 4.32 10*6/uL 3.60-5.00 [facility] Serum or plasma albumin/glob ulin mass ratioOrdered By: Monika Camarillo on 01-03-2023 Albumin/Globulin [Mass ratio] 2.2 {ratio} [facility] Serum or plasma anion gap de terminationOrdered By: Monika Camarillo on 01-03-2023 Anion gap [Moles/Vol] 10.9 mmol/L 6.0-15.0 [facility] Sodium [Moles/volume] in Ser um or PlasmaOrdered By: Monika Camarillo on 01-03-2023 Sodium [Moles/Vol] 136 mmol/L 136-145 [facility] Specific gravity Auto test s trip (U) [Rel density]Ordered By: Monika Camarillo on 01-03-2023 Specific gravity (U) [Rel density] 1.005 1.001-1.030 [facility] US PREG TVon 01-03-2023 US PREG [...] LOPEZ ZARAGOZA Date: 2023-01-03 21:49 Normal [facility] Urea nitrogen [Mass/volume] in Serum or PlasmaOrdered By: Monika Camarillo on 01-03-2023 Urea nitrogen [Mass/Vol] 9 mg/dL 7-25 [facility] Urine clarity by refractomet ry automatedOrdered By: Monika Camarillo on 01-03-2023 Clarity Refractometry automated (U) Clear Clear [facility] Urine glucose measurement by automated test strip (mass/volume)Ordered By: Monika Camarillo on 01-03-2023 Glucose Auto test strip (U) [Mass/Vol] Normal mg/dL Normal [facility] Urine hemoglobin detection b y automated test stripOrdered By: Monika Camarillo on 01-03-2023 Hemoglobin Auto test strip Ql (U) Negative Negative [facility] Urine leukocyte esterase det ection by automated test stripOrdered By: Monika Camarillo on 01-03-2023 Leukocyte esterase Auto test strip Ql (U) Negative Negative [facility] Urobilinogen Auto test strip (U) [Mass/Vol]Ordered By: Monika Camarillo on 01-03-2023 Urobilinogen (U) [Mass/Vol] Normal mg/dL Normal [facility] WBC Auto (Bld) [#/Vol]Ordere d By: Monika Zamorajose on 01-03-2023 WBC (Bld) [#/Vol] 5.7 10*3/uL 3.8-11.6 [facility] pH Auto test strip (U)Ordere d By: Monika Zamorajose on 01-03-2023 pH (U) 6.5 [pH] 5.0-9.0 [facility] US PREG TVon 12-26-2022 US PREG [...] KENNEDY LEHMAN Date: 2022-12-26 15:07 Normal [facility] PREG QUANT HCGon 12-25-2022 HCG QUANT 60858 mIU/mL Normal [facility] Comment on above: Performed By: #### P REGQNT #### [facility] [address] [address] [address] Lester Yen HCG RANGE SEE BELOW Normal [facility] Comment on above: Result Comment: 5-50 0.2-1 WEEK 50-500 1-2 WEEKS 100-5,000 2-3 WEEKS 500-10,000 3-4 WEEKS 1,000-50,000 4-5 WEEKS 10,000-100,000 5-6 WEEKS 15,000-200,000 6-8 WEEKS 10,000-100,000 2-3 MONTHS Performed By: #### P REGQNT #### [facility] [address] [address] [address] Lester Yen Albumin [Mass/volume] in Ser um or PlasmaOrdered By: Monika Camarillo on 08-02-2022 Albumin [Mass/Vol] 3.7 g/dL 3.2-5.5 [facility] Basophils Auto (Bld) [#/Vol] Ordered By: Monika Camarillo on 08-02-2022 Basophils (Bld) [#/Vol] 0.0 10*3/uL 0.0-0.2 [facility] Basophils/100 WBC Auto (Bld) Ordered By: Monika Camarillo on 08-02-2022 Basophils/100 WBC (Bld) 0.8 % . [facility] Bilirubin Test strip Ql (U)O rdered By: Monika Camarillo on 08-02-2022 Bilirubin Ql (U) Negative Negative [facility] Color Auto (U)Ordered By: Co urregina Camarillo on 08-02-2022 Color (U) Yellow Yellow [facility] Creatinine and Glomerular fi ltration rate.predicted panel (S/P/Bld)Ordered By: Monika Camarillo on 08-02-2022 Creatinine [Mass/Vol] 0.86 mg/dL 0.44-1.03 [facility] Eosinophils Auto (Bld) [#/Vo l]Ordered By: Monika Camarillo on 08-02-2022 Eosinophils (Bld) [#/Vol] 0.4 10*3/uL 0.0-0.45 [facility] Eosinophils/100 WBC Auto (Bl d)Ordered By: Monika Camarillo on 08-02-2022 Eosinophils/100 WBC (Bld) 12.8 % . [facility] Erythrocyte distribution wid th Auto (RBC) [Ratio]Ordered By: Monika Camarillo on 08-02-2022 Erythrocyte distribution width (RBC) [Ratio] 12.7 % 11.9-15.3 [facility] Estimated glomerular filtrat ion rate (GFR) non- AmericanOrdered By: Monika Camarillo on 08-02-2022 GFR/1.73 sq M.predicted among non-blacks MDRD (S/P/Bld) [Vol rate/Area] > 60 mL/Min [facility] Globulin Calc (S) [Mass/Vol] Ordered By: Monika Camarillo on 08-02-2022 Globulin (S) [Mass/Vol] 2.4 g/dL [facility] HCG ( test) IA.rapi d Ql (U)Ordered By: Monika Camarillo on 08-02-2022 HCG ( test) Ql (U) Negative [facility] Hematocrit Auto (Bld) [Volum e fraction]Ordered By: Monika Camarillo on 08-02-2022 Hematocrit (Bld) [Volume fraction] 38.4 % 34.0-46.4 [facility] Hemoglobin [Mass/volume] in BloodOrdered By: Monika Camarillo on 08-02-2022 Hemoglobin (Bld) [Mass/Vol] 13.1 g/dL 11.8-15.4 [facility] Ketones Auto test strip (U) [Mass/Vol]Ordered By: Monika Camarillo on 08-02-2022 Ketones (U) [Mass/Vol] Negative Negative [facility] - Hematology and Cell countsOrdered By: Monika Camarillo on 08-02-2022 Nucleated RBC/100 WBC (Bld) [Ratio] 0.1 % 0-0.5 [facility] Leukocytes [#/volume] in Blo od by Automated countOrdered By: Monika Camarillo on 08-02-2022 WBC (Bld) [#/Vol] 3.4 10*3/uL 4.5-11.0 [facility] Lymphocytes Auto (Bld) [#/Vo l]Ordered By: Monika Camarillo on 08-02-2022 Lymphocytes (Bld) [#/Vol] 1.0 10*3/uL 1.00-4.8 [facility] Lymphocytes/100 WBC Auto (Bl d)Ordered By: Monika Camarillo on 08-02-2022 Lymphocytes/100 WBC (Bld) 28.2 % . [facility] MCH Auto (RBC) [Entitic mass ]Ordered By: Monika Camarillo on 08-02-2022 MCH (RBC) [Entitic mass] 31.1 pg 24.7-34.3 [facility] MCHC Auto (RBC) [Mass/Vol]Or dered By: Monika Camarillo on 08-02-2022 MCHC (RBC) [Mass/Vol] 34.1 g/dL 32.0-35.0 [facility] MCV Auto (RBC) [Entitic vol] Ordered By: Monika Camarillo on 08-02-2022 MCV (RBC) [Entitic vol] 91.4 fL 80-100 [facility] Monocytes Auto (Bld) [#/Vol] Ordered By: Monika Camarillo on 08-02-2022 Monocytes (Bld) [#/Vol] 0.3 10*3/uL 0.0-0.8 [facility] Monocytes/100 WBC Auto (Bld) Ordered By: Monika Camarillo on 08-02-2022 Monocytes/100 WBC (Bld) 7.7 % . [facility] Neutrophils Auto (Bld) [#/Vo l]Ordered By: Monika Camarillo on 08-02-2022 Neutrophils (Bld) [#/Vol] 1.7 10*3/uL 1.8-7.7 [facility] Neutrophils/100 WBC Auto (Bl d)Ordered By: Monika Camarillo on 08-02-2022 Neutrophils/100 WBC (Bld) 50.5 % . [facility] Nitrite Test strip Ql (U)Ord ered By: Monika Camarillo on 08-02-2022 Nitrite Ql (U) Negative Negative [facility] No Panel InformationOrdered By: Monika Camarillo on 08-02-2022 Estimated GFR () > 60 mL/Min [facility] Comment on above: GFR estimated refere nce range: According to KDOQI guidelines, <60 ml/min/1.73m2 is sufficient to diagnose a patient with chronic kidney disease. Pharmacy Creatinine Clearance (Chem 79.12 [facility] Platelet mean volume Auto (B ld) [Entitic vol]Ordered By: Monika Camarillo on 08-02-2022 Platelet mean volume (Bld) [Entitic vol] 7.8 fL 6.3-10.7 [facility] Platelets Auto (Bld) [#/Vol] Ordered By: Monika Camarillo on 08-02-2022 Platelets (Bld) [#/Vol] 203 10*3/uL 150-450 [facility] Protein Auto test strip (U) [Mass/Vol]Ordered By: Monika Camarillo on 08-02-2022 Protein (U) [Mass/Vol] Negative Negative [facility] Protein [Mass/volume] in Ser um or PlasmaOrdered By: Monika Camarillo on 08-02-2022 Protein [Mass/Vol] 6.1 g/dL 6.1-7.9 [facility] RBC Auto (Bld) [#/Vol]Ordere d By: Monika Camarillo on 08-02-2022 RBC (Bld) [#/Vol] 4.20 10*6/uL 3.60-5.00 [facility] Serum or plasma alanine gaspar otransferase measurement without P-5'-P (enzymatic activiOrdered By: Monika Camarillo on 08-02-2022 ALT No additional P-5'-P [Catalytic activity/Vol] 13 U/L 10-60 [facility] Serum or plasma albumin/glob ulin mass ratioOrdered By: Monika Camarillo on 08-02-2022 Albumin/Globulin [Mass ratio] 1.5 {ratio} [facility] Serum or plasma alkaline radames sphatase measurement (enzymatic activity/volume)Ordered By: Monika Camarillo on 08-02-2022 ALP [Catalytic activity/Vol] 46 U/L 32-92 [facility] Serum or plasma anion gap de terminationOrdered By: Monika Camarillo on 08-02-2022 Anion gap [Moles/Vol] 11.0 mmol/L 6.0-15.0 [facility] Serum or plasma aspartate am inotransferase measurement (enzymatic activity/volume)Ordered By: Monika Camarillo on 08-02-2022 AST [Catalytic activity/Vol] 16 U/L 10-42 [facility] Serum or plasma calcium unique urement (mass/volume)Ordered By: Monika Camarillo on 08-02-2022 Calcium [Mass/Vol] 9.2 mg/dL 8.2-10.2 [facility] Serum or plasma chloride debbie surement (moles/volume)Ordered By: Monika Camarillo on 08-02-2022 Chloride [Moles/Vol] 104 mmol/L 95-114 [facility] Serum or plasma glucose unique urement (mass/volume)Ordered By: Monika Camarillo on 08-02-2022 Glucose [Mass/Vol] 82 mg/dL 70-100 [facility] Comment on above: ADA recommended refe rence rangeRandom Glucose Reference Range is dependent on time and content of last meal. Glucose of more than 200 mg/dL in a nonstressed, ambulatory subject supports the diagnosis of Diabetes Mellitus. Serum or plasma potassium me asurement (moles/volume)Ordered By: Monika Camarillo on 08-02-2022 Potassium [Moles/Vol] 3.4 mmol/L 3.5-5.1 [facility] Serum or plasma sodium measu rement (moles/volume)Ordered By: Monika Camarillo on 08-02-2022 Sodium [Moles/Vol] 137 mmol/L 136-146 [facility] Serum or plasma total biliru bin measurement (mass/volume)Ordered By: Monika Camarillo on 08-02-2022 Bilirubin [Mass/Vol] 0.6 mg/dL 0.3-1.2 [facility] Serum or plasma total carbon dioxide measurement (moles/volume)Ordered By: Monika Camarillo on 08-02-2022 CO2 [Moles/Vol] 25.4 mmol/L 22.0-30.0 [facility] Serum or plasma urea nitroge n measurement (mass/volume)Ordered By: Monika Camarillo 08-02-2022 Urea nitrogen [Mass/Vol] 8 mg/dL 9-23 [facility] Specific gravity Auto test s trip (U) [Rel density]Ordered By: Monika Camarillo on 08-02-2022 Specific gravity (U) [Rel density] 1.009 1.001-1.030 [facility] Urine clarity by refractomet ry automatedOrdered By: Monika Camarillo on 08-02-2022 Clarity Refractometry automated (U) Clear Clear [facility] Urine glucose measurement by automated test strip (mass/volume)Ordered By: Monika Camarillo on 08-02-2022 Glucose Auto test strip (U) [Mass/Vol] Normal mg/dL Normal [facility] Urine hemoglobin detection b y automated test stripOrdered By: Monika Camarillo on 08-02-2022 Hemoglobin Auto test strip Ql (U) Negative Negative [facility] Urine lactic acid measuremen tOrdered By: Monika Camarillo on 08-02-2022 Lactate (U) [Moles/Vol] 1.4 mmol/L 0.5-2.2 [facility] Urine leukocyte esterase det ection by automated test stripOrdered By: Monika Camarillo on 08-02-2022 Leukocyte esterase Auto test strip Ql (U) Negative Negative [facility] Urobilinogen Auto test strip (U) [Mass/Vol]Ordered By: Monika Camarillo on 08-02-2022 Urobilinogen (U) [Mass/Vol] Normal mg/dL Normal [facility] pH Auto test strip (U)Ordere d By: Monika Camarillo on 08-02-2022 pH (U) 8.0 [pH] 5.0-9.0 [facility] CBC AUTO DIFFon 07-29-2022 BASO # 0.0 103/ul Normal 0.0-0.1 [facility] Comment on above: Performed By: #### C BC #### [facility] [address] [place] [address] Dr. Lester Yen Basophils/100 WBC (Bld) 1.1 % Normal 0.2-2.0 [facility] Comment on above: Performed By: #### C BC #### [facility] [address] [place] [address] Dr. Lester Yen EO # 0.4 103/ul Normal 0.0-0.7 [facility] Comment on above: Performed By: #### C BC #### [facility] [address] [place] [address] Dr. Lester Yen Eosinophils/100 WBC (Bld) 10.8 % Critically high 0.9-7.0 [facility] Comment on above: Performed By: #### C BC #### [facility] [address] [place] [address] Dr. Lester Yen Erythrocyte distribution width (RBC) [Ratio] 12.0 % Normal 11.0-15.0 [facility] Comment on above: Performed By: #### C BC #### [facility] [address] [place] [address] Dr. Lester Yen Hematocrit (Bld) [Volume fraction] 36.3 % Normal 36.0-48.0 [facility] Comment on above: Performed By: #### C BC #### [facility] [address] [place] [address] Dr. Lester Yen Hemoglobin (Bld) [Mass/Vol] 12.4 g/dL Normal 12.0-16.0 [facility] Comment on above: Performed By: #### C BC #### [facility] [address] [place] [address] Dr. Lester Yen IG # 0.00 10e3/ul Normal 0.00-0.03 [facility] Comment on above: Performed By: #### C BC #### [facility] [address] [place] [address] Dr. Lester Yen IG % 0.0 % Normal 0.0-0.5 [facility] Comment on above: Performed By: #### C BC #### [facility] [address] [place] [address] Dr. Lester Yen LYMPH # 1.6 103/ul Normal 1.2-3.8 [facility] Comment on above: Performed By: #### C BC #### [facility] [address] [place] [address] Dr. Lester Yen Lymphocytes/100 WBC (Bld) 41.6 % Normal 20.5-60.0 [facility] Comment on above: Performed By: #### C BC #### [facility] [address] [place] [address] Dr. Lester Yen MANUAL DIFF REQ NO Normal [facility] Comment on above: Performed By: #### C BC #### [facility] [address] [place] [address] Dr. Lester Yen MCH (RBC) [Entitic mass] 31.9 pg Normal 26.7-34.0 [facility] Comment on above: Performed By: #### C BC #### [facility] [address] [address] [address] Lester Yen MCHC (RBC) [Mass/Vol] 34.2 g/dL Normal 29.9-35.2 [facility] Comment on above: Performed By: #### C BC #### [facility] [address] [address] [address] Lester Yen MCV (RBC) [Entitic vol] 93.3 fL Normal 81.0-99.0 [facility] Comment on above: Performed By: #### C BC #### [facility] [address] [place] [address] Dr. Lester Yen MONO # 0.3 103/ul Normal 0.3-0.8 [facility] Comment on above: Performed By: #### C BC #### [facility] [address] [place] [address] Dr. Lester Yen Monocytes/100 WBC (Bld) 8.2 % Normal 1.7-12.0 [facility] Comment on above: Performed By: #### C BC #### [facility] [address] [place] [address] Dr. Lester Yen NEUT # 1.5 103/ul Normal 1.4-6.5 [facility] Comment on above: Performed By: #### C BC #### [facility] [address] [place] [address] Dr. Lester Yen Neutrophils/100 WBC (Bld) 38.3 % Critically low 43.0-75.0 [facility] Comment on above: Performed By: #### C BC #### [facility] [address] [place] [address] Dr. Lester Yen Platelet mean volume (Bld) [Entitic vol] 9.3 fL Critically low 9.5-13.5 [facility] Comment on above: Performed By: #### C BC #### [facility] [address] [place] [address] Dr. Lester Yen PLT 184 103/ul Normal 150-450 [facility] Comment on above: Performed By: #### C BC #### [facility] [address] [place] [address] Dr. Lester Yen RBC 3.89 106/ul Critically low 4.20-5.40 [facility] Comment on above: Performed By: #### C BC #### [facility] [address] [address] [address] Lester Yen WBC 3.8 103/ul Critically low 4.0-11.0 [place] Comment on above: Performed By: #### C BC #### [facility] [address] [place] [address] Dr. Lester Yen Covid-19 PCR (CVDTB)on 07-07 SARS-CoV-2 (COVID-19) RNA JOSE+probe Ql (Unsp spec) Not detected Normal NOT DETECTED [facility] Comment on above: Result Comment: When diagnostic [...] this test is supported by the Supervisor [employer] of Health and Human Service's declaration that [...] By: #### C ANJU PULIDO AMY #### [facility] [address] [place] [address] Dr. Lester Yen PREG QUANT HCGon 07-29-2022 HCG QUANT 1 mIU/mL Normal [facility] Comment on above: Performed By: #### C ANJU PULIDO AMY #### [facility] [address] [place] [address] Dr. Lester Yen HCG RANGE SEE BELOW Normal [facility] Comment on above: Result Comment: 5-50 0.2-1 WEEK 50-500 1-2 WEEKS 100-5,000 2-3 WEEKS 500-10,000 3-4 WEEKS 1,000-50,000 4-5 WEEKS 10,000-100,000 5-6 WEEKS 15,000-200,000 6-8 WEEKS 10,000-100,000 2-3 MONTHS Performed By: #### C ANJU PULIDO AMY #### [facility] [id number] Lester Yen HIV 1 and HIV-2 antibody ass ay with HIV-1 p24 antigen detectionOrdered By: Dominic Hester on 06-18-2022 HIV 1+2 Ab+HIV1 p24 Ag IA Ql Non-Reactive Non Reactive [facility] Comment on above: HIV NegativeHIV-1/HI V-2 antibodies and HIV-1 p24 antigen were NOTdetected. There is no laboratory evidence of HIV infection.Performed at: [facility] [address] [id number] Director: Lebron Manzo PhD, Phone: [phone] Hepatitis B virus surface Ag [Presence] in Serum or Plasma by ImmunoassayOrdered By: Dominic Hester on 06-18-2022 HBV surface Ag IA Ql Negative Negative [facility] Hepatitis C virus RNA [Units /volume] (viral load) in Serum or Plasma by JOSE with probOrdered By: Dominic Hester on 06-18-2022 HCV RNA JOSE+probe Qn N/A [facility] Hepatitis C virus RNA [log u nits/volume] (viral load) in Serum or Plasma by JOSE withOrdered By: Dominic Hester on 06-18-2022 HCV RNA JOSE+probe [Log units/Vol] N/A [facility] No Panel InformationOrdered By: Dominic Hester on 06-18-2022 Hepatitis A IgM Antibody Negative Negative [facility] Hepatitis B Core IgM Antibody Negative Negative [facility] Hepatitis C Interpretation See comment . [facility] Comment on above: NegativeNot infected with HCV, unless recent infection issuspected or other evidence exists to indicate HCVinfection.Performed at: [facility] [address] [id number] Director: Lebron Manzo PhD, Phone: [phone] Hepatitis C RNA Quantitative N/A [facility] Reagin Ab [Presence] in Seru m by RPROrdered By: Dominic Hester on 06-18-2022 Reagin Ab RPR Ql (S) Non-Reactive Non Reactive [facility] Comment on above: Performed at: [facility] [address] [id number] Director: Lebron Manzo PhD, Phone: [phone] Serum or plasma hepatitis C virus antibody signal/cutoff ratio by immunoassay (relatiOrdered By: Dominic Hester on 06-18-2022 HCV Ab Signal/Cutoff IA [Rel units/Vol] <0.1 s/co ratio 0.0-0.9 [facility] CHLAMYDIA/GONOCOCCUS JOSE (SW AB/URINE/PAPon 06-04-2022 Chlamydia trachomatis, JOSE Negative Normal Negative [facility] Comment on above: Performed By: #### C T/NGNA #### [facility] [address] [place] [address] Dr. Lester Yen Neisseria gonorrhoeae, JOSE Negative Normal Negative [facility] Comment on above: Performed By: #### C T/NGNA #### [facility] [address] [place] [address] Dr. Lester Yen VAGINITIS/VAGINOSIS DNA PROB Davide 06-02-2022 Tigist species Negative Normal Negative [facility] Comment on above: Performed By: #### C MP, LIPA, NAHUN #### [facility] [address] [address] [address] Lester Yen Gardnerella vaginalis Negative Normal Negative [facility] Comment on above: Performed By: #### C MP, LIPA, NHAUN #### [facility] [address] [place] [address] Dr. Lester Yen Trichomonas vaginalis Negative Normal Negative [facility] Comment on above: Performed By: #### C MP, LIPA, NAHUN #### [facility] [address] [place] [address] Dr. Lester Yen AMYLASEon 05-28-2022 Amylase [Catalytic activity/Vol] 48 U/L Normal 25-115 [facility] Comment on above: Performed By: #### C ANJU PULIDO AMY #### [facility] [address] [place] [address] Dr. Lester Yen CBC AUTO DIFFon 05-28-2022 BASO # 0.0 103/ul Normal 0.0-0.1 [facility] Comment on above: Performed By: #### C BC #### [facility] [address] [place] [address] Dr. Lester Yen Basophils/100 WBC (Bld) 0.5 % Normal 0.2-2.0 [facility] Comment on above: Performed By: #### C BC #### [facility] [address] [place] [address] Dr. Lester Yen EO # 0.3 103/ul Normal 0.0-0.7 [facility] Comment on above: Performed By: #### C BC #### [facility] [address] [place] [address] Dr. Lester Yen Eosinophils/100 WBC (Bld) 5.7 % Normal 0.9-7.0 [facility] Comment on above: Performed By: #### C BC #### [facility] [address] [place] [address] Dr. Lester Yen Erythrocyte distribution width (RBC) [Ratio] 12.6 % Normal 11.0-15.0 [facility] Comment on above: Performed By: #### C BC #### [facility] [address] [place] [address] Dr. Lester Yen Hematocrit (Bld) [Volume fraction] 39.5 % Normal 36.0-48.0 [facility] Comment on above: Performed By: #### C BC #### [facility] [address] [place] [address] Dr. Lester Yen Hemoglobin (Bld) [Mass/Vol] 13.2 g/dL Normal 12.0-16.0 [facility] Comment on above: Performed By: #### C BC #### [facility] [address] [place] [address] Dr. Lester Yen IG # 0.01 10e3/ul Normal 0.00-0.03 [facility] Comment on above: Performed By: #### C BC #### [facility] [address] [place] [address] Dr. Lester Yen IG % 0.2 % Normal 0.0-0.5 [facility] Comment on above: Performed By: #### C BC #### [facility] [address] [place] [address] Dr. Lester Yen LYMPH # 1.1 103/ul Critically low 1.2-3.8 [place] Comment on above: Performed By: #### C BC #### [facility] [address] [place] [address] Dr. Lester Yen Lymphocytes/100 WBC (Bld) 18.9 % Critically low 20.5-60.0 [facility] Comment on above: Performed By: #### C BC #### [facility] [address] [place] [address] Dr. Lester Yen MANUAL DIFF REQ NO Normal [facility] Comment on above: Performed By: #### C BC #### [facility] [address] [place] [address] Dr. Lester Yen MCH (RBC) [Entitic mass] 31.1 pg Normal 26.7-34.0 [facility] Comment on above: Performed By: #### C BC #### [facility] [address] [place] [address] Dr. Lester Yen MCHC (RBC) [Mass/Vol] 33.4 g/dL Normal 29.9-35.2 [facility] Comment on above: Performed By: #### C BC #### [facility] [address] [place] [address] Dr. Lester Yen MCV (RBC) [Entitic vol] 93.2 fL Normal 81.0-99.0 [facility] Comment on above: Performed By: #### C BC #### [facility] [address] [place] [address] Dr. Lester Yen MONO # 0.5 103/ul Normal 0.3-0.8 [facility] Comment on above: Performed By: #### C BC #### [facility] [address] [place] [address] Dr. Lester Yen Monocytes/100 WBC (Bld) 8.4 % Normal 1.7-12.0 [facility] Comment on above: Performed By: #### C BC #### [facility] [address] [place] [address] Dr. Lester Yen NEUT # 3.9 103/ul Normal 1.4-6.5 [facility] Comment on above: Performed By: #### C BC #### [facility] [address] [place] [address] Dr. Lester Yen Neutrophils/100 WBC (Bld) 66.3 % Normal 43.0-75.0 [facility] Comment on above: Performed By: #### C BC #### [facility] [address] [place] [address] Dr. Lester Yen Platelet mean volume (Bld) [Entitic vol] 9.8 fL Normal 9.5-13.5 [facility] Comment on above: Performed By: #### C BC #### [facility] [address] [place] [address] Dr. Lester Yen PLT 186 103/ul Normal 150-450 [facility] Comment on above: Performed By: #### C BC #### [facility] [address] [place] [address] Dr. Lester Yen RBC 4.24 106/ul Normal 4.20-5.40 [facility] Comment on above: Performed By: #### C BC #### [facility] [address] [place] [address] Dr. Lester Yen WBC 5.9 103/ul Normal 4.0-11.0 [facility] Comment on above: Performed By: #### C BC #### [facility] [address] [place] [address] ABD/PELV W CONon [...] TOR JIN Date: 2022-05-28 12:57 Normal The [facility] ER URINE PROFILEon 2 Bilirubin Ql (U) Negative Normal NEGATIVE The [facility] Comment on above: Performed By: #### E GREG PREGU #### [facility] [address] [place] [address] Dr. Lester Yen Clarity (U) CLEAR Normal CLEAR [facility] Comment on above: Performed By: #### E MANUELR PREGU #### [facility] [address] [place] [address] Dr. Lester Yen Color (U) LT. YELLOW Normal YELLOW [facility] Comment on above: Performed By: #### E RUR, PREGU #### [facility] [address] [place] [address] Dr. Lester LEA A micrscopic examination will be performed if indicated. Normal [facility] Comment on above: Performed By: #### E RUR, PREGU #### [facility] [address] [place] [address] Dr. Lester Yen Glucose Ql (U) Negative Normal NEGATIVE The [facility] Comment on above: Performed By: #### E RUR, PREGU #### [facility] [address] [place] [address] Dr. Lester Yen Hemoglobin Ql (U) Negative Normal NEGATIVE [facility] Comment on above: Performed By: #### E RUR, PREGU #### [facility] [address] [place] [address] Dr. Lester Yen Ketones Ql (U) Negative Normal NEGATIVE [place] Comment on above: Performed By: #### E RUR, PREGU #### [facility] [address] [place] [address] Dr. Lester Yen LEUKOCYTES Negative Normal NEGATIVE [facility] Comment on above: Performed By: #### E RUR, PREGU #### [facility] [address] [place] [address] Dr. Lester Yen Nitrite Ql (U) Negative Normal NEGATIVE [place] Comment on above: Performed By: #### E RUR, PREGU #### [facility] [address] [place] [address] Dr. Lester Yen pH (U) 6.0 [pH] Normal 5-9 [facility] Comment on above: Performed By: #### E RUR, PREGU #### [facility] [address] [place] [address] Dr. Lester Yen SPEC GRAVITY <=1.005 Abnormal 1.005-<=1.02 5 [facility] Comment on above: Performed By: #### E RUR, PREGU #### [facility] [address] [place] [address] Dr. Lester Yen UA PROTEIN Negative Normal NEGATIVE/ TRACE [facility] Comment on above: Performed By: #### E RUR, PREGU #### [facility] [address] [place] [address] Dr. Lester Yen UR MICRO IND NOT INDICATED Normal [facility] Comment on above: Performed By: #### E RUR, PREGU #### [facility] [address] [place] [address] Dr. Lester Yen Urobilinogen Qn (U) 0.2 {Olivier'U}/dL Normal 0.2 - 1. 0 [facility] Comment on above: Performed By: #### E RUR, PREGU #### [facility] [address] [place] [address] Dr. Lester Yen LIPASEon 05-28-2022 Lipase [Catalytic activity/Vol] 96.0 U/L Normal 73.0-393.0 [facility] Comment on above: Performed By: #### C MP, LIPA, NAHUN #### [facility] [address] [place] [address] Dr. Lester Yen URon 05-28-2022 , QUAL Negative Normal NEGATIVE [facility] Comment on above: Performed By: #### E RUR, PREGU #### [facility] [address] [place] [address] Dr. Lester Yen PROF 14(COMP METB)on 022 Albumin [Mass/Vol] 4.0 g/dL Normal 3.4-5.[address] [facility] Comment on above: Performed By: #### C MP LIPA, NAHUN #### [facility] [address] [place] [address] Dr. Lester Yen Albumin/Globulin [Mass ratio] 1.4 {ratio} Normal [facility] Comment on above: Performed By: #### C MP LIPA, NAHUN #### [facility] [address] [place] [address] Dr. Lester Yen ALP [Catalytic activity/Vol] 56 U/L Normal 46-116 [facility] Comment on above: Performed By: #### C MP, LIPA, NAHUN #### [facility] [address] [address] [address] Lester Yen ALT [Catalytic activity/Vol] 14 U/L Normal 14-59 [facility] Comment on above: Performed By: #### C MP, LIPA, NAHUN #### [facility] [address] [address] [address] Lester Yen Anion gap [Moles/Vol] 13.3 mmol/L Normal [facility] Comment on above: Performed By: #### C MP, LIPA, NAHUN #### [facility] [address] [place] [address] Dr. Lester Yen AST [Catalytic activity/Vol] 11 U/L Critically low 15-37 [facility] Comment on above: Performed By: #### C MP, LIPA, NAHUN #### [facility] [address] [place] [address] Dr. Lester Yen Bilirubin [Mass/Vol] 0.5 mg/dL Normal 0.2-1.0 [facility] Comment on above: Performed By: #### C MP, LIPA, NAHUN #### [facility] [address] [place] [address] Dr. Lester Yen Calcium [Mass/Vol] 8.9 mg/dL Normal 8.5-10.[address] [facility] Comment on above: Performed By: #### C MP, LIPA, NAHUN #### [facility] [address] [place] [address] Dr. Lester Yen Chloride [Moles/Vol] 105 mmol/L Normal 98-107 [facility] Comment on above: Performed By: #### C MP, LIPA, NAHUN #### [facility] [address] [place] [address] Dr. Lester Yen CO2 [Moles/Vol] 24.4 mmol/L Normal 21.0-32.0 [facility] Comment on above: Performed By: #### C MP, LIPA, NAHUN #### [facility] [address] [place] [address] Dr. Lester Yen Creatinine [Mass/Vol] 0.88 mg/dL Normal 0.55-1.02 [facility] Comment on above: Performed By: #### C ANJU UPLIDO AMY #### [facility] [address] [place] [address] Dr. Lester Yen EGFR-AF CITIZEN OF [place] >60 Normal >=60 [facility] Comment on above: Performed By: #### C ANJU PULIDO, NAHUN #### [facility] [address] [place] [address] Dr. Lester Yen EGFR-NON AF CITIZEN OF [place] >60 Normal >=60 [facility] Comment on above: Performed By: #### C ANJU PULIDO, NAHUN #### [facility] [address] [place] [address] Dr. Lester Yen Globulin (S) [Mass/Vol] 2.8 g/dL Normal T [facility] Comment on above: Performed By: #### C ANJU PULIDO, NAHUN #### [facility] [address] [place] [address] Dr. Lester Yen Glucose [Mass/Vol] 100 mg/dL Normal 74-106 [facility] Comment on above: Performed By: #### C ANJU PULIDO, NAHUN #### [facility] [address] [place] [address] Dr. Lester Yen Potassium [Moles/Vol] 3.7 mmol/L Normal 3.5-5.1 [facility] Comment on above: Performed By: #### C ANJU PULIDO, NAHUN #### [facility] [address] [place] [address] Dr. Lester Yen Protein [Mass/Vol] 6.8 g/dL Normal 6.4-8.2 [facility] Comment on above: Performed By: #### C ANJU PULIDO, NAHUN #### [facility] [address] [place] [address] Dr. Lester Yen Sodium [Moles/Vol] 139 mmol/L Normal 136-145 [facility] Comment on above: Performed By: #### C ANJU PULIDO, NAHUN #### [facility] [address] [address] [address] Lester Yen Urea nitrogen [Mass/Vol] 13.0 mg/dL Normal 7.0-18.0 [facility] Comment on above: Performed By: #### C ANJU PULIDO AMY #### [facility] [address] [address] [address] Lester Yen Urea nitrogen/Creatinine [Mass ratio] 14.8 mg/mg Normal [facility] Comment on above: Performed By: #### C ANJU PULIDO, NAHUN #### [facility] [address] [address] [address] Lester Yen Ch[facility] Documentson 04-19-2021 [facility] Documents [id number] .[id number]:127 Normal [facility] Documentson 06-06-2020 [facility] Documents [facility] Nurse Visit 14 day Health Appraisal Date [...] forearm Date vial opened: 05/18/2020 Lot number: [id number] Expiration date: 01/24 PPD Comments: PPD Results [...] wish to attend AA Meetings? _ sure [facility] Assessment 05/31/20 15:54:00 [facility] Assessment Entered On: 05/31/2020 15:56 EDT Performed [...] Pressure Posi (more content not included)... Normal [facility] Documentson 05-29-2020 [facility] Documents [id number]#1.00CD:127 Normal [facility] Chlam/GC/Trich,NAAon 020 C. trachomatis rRNA JOSE+probe Ql (Unsp spec) Negative Invalid Interpretation Code Negative [facility] Comment on above: Performed By: #### 1 [id number] #### [facility] [address] [place] [address] N. gonorrhoeae rRNA JOSE+probe Ql (Unsp spec) Negative Invalid Interpretation Code Negative [facility] Comment on above: Performed By: #### 1 [id number] #### [facility] [address] [place] [address] T. vaginalis DNA JOSE+probe Ql (Unsp spec) Negative Invalid Interpretation Code Negative [facility] Comment on above: Result Comment: Perf ormed at: =G [facility] [place] [address] [facility] [place] [id number] MD Jama Valdivia Performed By: #### 1 [id number] #### [facility] [address] [place] [address] Coding Summary.on 05-15-2020 Coding Summary. CODING DATE: 05/15/2020 FINAL [facility] STATUS: Home (Routine DC) PAYOR: Medicaid [...] Revised Date Saved: 05/15/2020 10:37 am Normal [facility] Amylaseon 05-14-2020 Amylase [Catalytic activity/Vol] 58 U/L Normal 25-157 [facility] Comment on above: Performed By: #### 2 437802, 58069159, 0711167, 9139069, 2955702, 7135337, 9117737 ####[facility] [address] [place] [address] Auto Diffon 05-14-2020 Basophils/100 WBC (Bld) 0.5 % Normal 0.0-2.0 [facility] Comment on above: Order Comment: Order Added by Discern Expert. Performed By: #### 2 006703, 89664647, 1167751, 6382969, 4707300, 7309050, 9934301 ####[address] [place] [address] Basophils/Leukocytes Auto (Bld) [Pure # fraction] 0.0 E9/L Normal 0.0-0.2 [facility] Comment on above: Order Comment: Order Added by Discern Expert. Performed By: #### 2 017555, 42102294, 2311272, 3100758, 0695934, 2503291, 1241860 ####[address] [place] [address] Eosinophils/100 WBC (Bld) 8.4 % High 0.0-8.0 [facility] Comment on above: Order Comment: Order Added by Discern Expert. Performed By: #### 2 997770, 54246369, 4191785, 9268469, 8611272, 2958977, 8475147 ####[address] [place] [address] Eosinophils/Leukocytes Auto (Bld) [Pure # fraction] 0.5 E9/L Normal 0.0-0.5 [facility] Comment on above: Order Comment: Order Added by Discern Expert. Performed By: #### 2 847282, 24097388, 0953325, 9413252, 6752672, 5132998, 6552301 ####[address] [place] [address] Lymphocytes/100 WBC (Bld) 31.4 % Normal 14.0-50.0 [facility] Comment on above: Order Comment: Order Added by Discern Expert. Performed By: #### 2 120916, 87274921, 9086148, 9821994, 3604513, 8531933, 3577158 ####[facility] [address] [place] [address] Lymphocytes/Leukocytes Auto (Bld) [Pure # fraction] 1.8 E9/L Normal 1.0-4.0 [facility] Comment on above: Order Comment: Order Added by Discern Expert. Performed By: #### 2 047103, 51300332, 6569029, 4799070, 7902643, 0387939, 0692198 ####[address] [place] [address] Monocytes/100 WBC (Bld) 8.2 % Normal 4.0-14.0 [facility] Comment on above: Order Comment: Order Added by Lacy Expert. Performed By: #### 2 355811, 82967533, 5586008, 1769241, 3194888, 4257475, 0254919 ####[facility] [address] [place] [address] Monocytes/Leukocytes Auto (Bld) [Pure # fraction] 0.5 E9/L Normal 0.2-1.0 [facility] Comment on above: Order Comment: Order Added by Lacy Expert. Performed By: #### 2 932461, 84499525, 5849038, 4041791, 2980214, 3190261, 1863174 ####[facility] [address] [place] [address] Neutrophils/100 WBC (Bld) 51.5 % Normal 36.0-75.0 [facility] Comment on above: Order Comment: Order Added by Lacy Expert. Performed By: #### 2 510087, 31213625, 7162519, 8424958, 9735560, 2682996, 2993800 ####[facility] [address] [place] [address] Neutrophils/Leukocytes Auto (Bld) [Pure # fraction] 2.9 E9/L Normal 2.0-7.5 [facility] Comment on above: Order Comment: Order Added by Discern Expert. Performed By: #### 2 449795, 56420106, 3540460, 7249212, 3124484, 3299432, 6018763 ####[facility] [address] [place] [address] BMPon 05-14-2020 Creatinine [Mass/Vol] 0.9 mg/dL Normal 0.5-1.3 [facility] Comment on above: Performed By: #### 2 729731, 16558285, 2559065, 8431614, 5268498, 4577015, 3577271 ####[facility] [address] [place] [address] Urea nitrogen [Mass/Vol] 14 mg/dL Normal 5-21 [facility] Comment on above: Performed By: #### 2 090010, 66872948, 1632183, 9697391, 3607781, 9789516, 7421134 ####[facility] [address] [place] [address] Urea nitrogen/Creatinine [Mass ratio] 16 No Units Normal 10-20 [facility] Comment on above: Performed By: #### 2 333039, 52696971, 2968105, 7036285, 3349444, 6126765, 6101282 ####[facility] [address] [place] [address] Anion gap [Moles/Vol] 12 mmol/L Normal 6-16 [facility] Comment on above: Performed By: #### 2 015034, 07882614, 5549232, 9962123, 1595816, 6215501, 1135896 ####[facility] [address] [place] [address] Calcium [Mass/Vol] 9.3 mg/dL Normal 8.9-11.1 [facility] Comment on above: Performed By: #### 2 510180, 57878876, 4255362, 5994624, 0306789, 6930534, 6001664 ####[facility] [address] [place] [address] Chloride [Moles/Vol] 103 mmol/L Normal 101-[address] [facility] Comment on above: Performed By: #### 2 506823, 86179635, 1353608, 8835737, 5937054, 1607813, 6471091 ####[facility] [address] [place] [address] CO2 [Moles/Vol] 27 mmol/L Normal 21-31 [facility] Comment on above: Performed By: #### 2 397557, 09176336, 0787122, 7318791, 5211817, 7150549, 4876950 ####[facility] [address] [place] [address] Glucose [Mass/Vol] 89 mg/dL Normal 55-199 [facility] Comment on above: Result Comment: If t his glucose result represents a fasting glucose, interpretation should refer to the following reference range: 55-99 mg/dL Performed By: #### 2 956393, 72748416, 8902787, 7763147, 7253209, 9646582, 3108034 ####[facility] [address] [place] [address] Potassium [Moles/Vol] 3.8 mmol/L Normal 3.5-5.3 [facility] Comment on above: Performed By: #### 2 408625, 58851347, 8236241, 9334468, 7768025, 3429834, 3575440 ####[facility] [address] [place] [address] Sodium [Moles/Vol] 138 mmol/L Normal 135-145 [facility] Comment on above: Performed By: #### 2 327690, 42478285, 3874474, 4509291, 9476699, 6885157, 3415755 ####[facility] [address] [place] [address] CBC w/ Auto Diffon 0 Erythrocyte distribution width (RBC) [Ratio] 12.7 % Normal 10.9-14.2 [facility] Comment on above: Performed By: #### 2 376081, 06370397, 5961845, 6717278, 3050996, 1768170, 3349042 ####[facility] [address] [place] [address] Hematocrit (Bld) [Volume fraction] 41.7 % Normal 34.0-46.0 [facility] Comment on above: Performed By: #### 2 500225, 78290030, 5672060, 9227768, 8026717, 4309742, 1182316 ####[facility] [address] [place] [address] Hemoglobin (Bld) [Mass/Vol] 13.9 g/dL Normal 12.0-16.0 [facility] Comment on above: Performed By: #### 2 036387, 42645955, 7601539, 4837041, 8720408, 3783546, 4382886 ####[facility] [address] [place] [address] MCH (RBC) [Entitic mass] 30.8 pg Normal 27.0-34.0 [facility] Comment on above: Performed By: #### 2 887152, 25781886, 0752833, 5356731, 1072762, 7161506, 4629939 ####[address] [address] MCHC (RBC) [Mass/Vol] 33.3 g/dL Normal 31.4-36.0 [facility] Comment on above: Performed By: #### 2 357849, 13758253, 1799874, 9475665, 3248070, 7837332, 1260754 ####[address] [place] [address] MCV (RBC) [Entitic vol] 92.5 fL Normal 80.0-100.0 [facility] Comment on above: Performed By: #### 2 861745, 05011042, 4290162, 0837377, 2567592, 2420172, 9150755 ####[facility] [address] [place] [address] Platelet mean volume (Bld) [Entitic vol] 8.2 fL Normal 6.4-10.8 [facility] Comment on above: Performed By: #### 2 827678, 37808430, 0354372, 1958443, 5305826, 4951515, 4706909 ####[facility] [address] [place] [address] Platelets (Bld) [#/Vol] 230.0 E9/L Normal 150.0-500.0 [facility] Comment on above: Performed By: #### 2 302731, 31833521, 7064969, 7966222, 9074072, 3721854, 2489248 ####[facility] [address] [place] [address] RBC (Bld) [#/Vol] 4.5 E12/L Normal 4.3-5.9 [facility] Comment on above: Performed By: #### 2 588487, 43368397, 4107386, 7457275, 5773905, 5098208, 7342579 ####[address] [place] [address] WBC corrected for nucl RBC Auto (Bld) [#/Vol] 5.7 E9/L Normal 4.0-11.0 [facility] Comment on above: Performed By: #### 2 092929, 51470787, 4558228, 0533472, 4383321, 0207128, 3467258 ####[facility] [address] [place] [address] Discharge Instructionson Discharge Instructions [id number] #[id number]:127 Normal [facility] ED Clinical Summaryon 2019 ED Clinical Summary [address] [address] ED Clinical Summary Person Information Name: BREANA PICKETT [facility] Age: 29 Years : 1990 Sex: Female Language: Spanish PCP: Mica CARLTON MD Marital Status: Single Phone: [phone] Visit Id: Visit Reason: Abdominal pain; STOMACH [...] 05/14/2020 04:35:55 05/14/2020 04:35:55 05/14/2020 04:35:55 ADDRESS: [address] [place] [address] PHYS DOC NOTES: MEDICAL INFORMATION: Prescriptions Given: New Medications Printed Prescriptions levofloxacin (Levaquin 500 mg Tab) 1 Tablets By Mouth every day. Refills: 0. Medications to Continue with No Changes Other Medications escitalopram (Lexapro 10 mg Tab) 1 Tablets By Mouth every day. 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 Renner aware of patient c/o generalized abd pain, rates at 7/10. Order received for [place], 2 tabs, one-time only. Normal [facility] ED Note-Nursing Dr. Renner at bedside for results review. Normal [facility] ED Note-Nursing Patient to u/s Normal [facility] ED Note-Nursing Dr. Renner at bedside for results update. Normal [facility] ED Note-Nursing Patient to xray. Normal [facility] ED Note-Nursing Dr. Renner at bedside for assessment. 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 Abdominal pain in female (R10.9: [...] 13.9 gm/dL (05/13/20 22:35:00) Hct: 41.7 % (05/13/20:35:00) MCV: 92.5 fL (05/13/20 22:35:00) MCH: 30.8 pg (05/13/20 22:35:00) MCHC: 33.3 gm/dL (05/13/20 22:35:00) RDW: 12.7 % (05/13/20 22:35:00) Platelet: 230 E9/L (05/13/20 22:35:00) MPV: 8.2 fL (05/13/20:35:00) Neutro Auto: 51.5 % (05/13/20 22:35:00) Lymph Auto: 31.4 % (05/13/20 22:35:00) [place] Auto: 8.2 % (05/13/20 22:35:00) Eos Auto: 8.4 % High (05/13/20 22:35:00) Basophil Auto: 0.5 % (05/13/20 22:35:00) Neutro Absolute: 2.9 E9/L (05/13/20 22:35:00) Lymph Absolute: 1.8 E9/L (05/13/20 22:35:00) [place] Absolute: 0.5 E9/L (05/13/20 22:35:00) Eos Absolute: 0.5 E9/L (05/13/20 (more content not included)... Normal [facility] Comment on above: Result Comment: Elec [...] Document Reviewed: 01/11/2013 ExitCare? Patient Information ?2015 [employer]. This information is not intended to replace advice given to you by your health care provider. Make sure you discuss any questions you have with your health care provider. Normal [facility] ED Patient Summaryon 020 ED Patient Summary [place] [id number] Patient Discharge Instructions Person Information Name: BREANA PICKETT Age: 29 Years Arrival Date: 05/13/2020 21:43:46 Discharge Diagnosis: 1:Abdominal pain in female; Pelvic pain Primary Care Physician: Mica CARLTON MD Provider Information Primary Provider: Lucio Renner MD Advanced Stitching Department Supervisor:None The exam and treatment you received in the Emergency Department were for an urgent problem and are not intended as complete care. It is important that you follow up with a doctor, nurse practitioner, or physician?s nurses assistant for ongoing care. 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 Patient Education Materials: Pelvic Pain, Female, Lxfd-ch-Vzif A MESSAGE TO ALL PATIENTS REGARDING OPIOIDS PRESCRIPTION OPIOIDS: WHAT YOU NEED TO KNOW Prescription opioids can be used to help relieve vfrhupob-zo-lymccn pain and are often prescribed following a [...] tell your (more content not included)... Normal [facility] Hep Func Panelon 05-14-2020 Bilirubin.indirect [Mass or moles/Vol] UTC Abnormal 0.1-0.9 [facility] Comment on above: Result Comment: Resu lt verified by Discern Rule. Performed result UTC (Unable to Calculate) was sent as an Alpha code due the inability to calculate a valid numeric value. Performed By: #### 2 [id number], [id number], 7174230, 8934834, 9643828, 3819324, 9967660 ####[facility] [address] [place] [address] Albumin [Mass/Vol] 4.2 g/dL Normal 3.3-5.0 [facility] Comment on above: Performed By: #### 2 477533, [id number], 8198987, 6493257, 4344569, 1948566, 5350715 ####[facility] [address] [place] [address] Albumin/Globulin (S) [Mass conc ratio] 1.4 Normal 1.1-2.2 [facility] Comment on above: Performed By: #### 2 831826, 70412538, 3866604, 2165939, 8506910, 1341187, 8781848 ####[facility] [address] [place] [address] ALP [Catalytic activity/Vol] 62 Int._Unit/L Normal 21-98 [facility] Comment on above: Performed By: #### 2 356260, [id number], 2695154, 6731545, 3193157, 1341703, 2142981 ####[address] [address] ALT No additional P-5'-P [Catalytic activity/Vol] 15 Int._Unit/L Normal 6-46 [facility] Comment on above: Performed By: #### 2 047571, 11954740, 6103139, 9403912, 7881838, 4034048, 0620405 ####[facility] [address] [place] [address] AST [Catalytic activity/Vol] 15 Int._Unit/L Normal 5-43 [facility] Comment on above: Performed By: #### 2 375385, [id number], 8687550, 5137048, 8030092, 0870629, 9239889 ####[facility] [address] [place] [address] Bilirubin [Mass/Vol] 0.8 mg/dL Normal 0.0-1.1 [facility] Comment on above: Performed By: #### 2 479023, 27497495, 3195158, 5976663, 3636257, 5236038, 5902201 ####[facility] [address] [place] [address] Bilirubin.direct [Mass/Vol] mg/dL Normal 0.1-0.4 [facility] Comment on above: Performed By: #### 2 470513, 04317927, 1187635, 7205293, 9661017, 1210951, 2672709 ####[facility] [address] [place] [address] Globulin (S) [Mass/Vol] 2.9 g/dL Normal 1.4-4.0 [facility] Comment on above: Performed By: #### 2 106991, 99665249, 3751291, 4639179, 7682665, 0186381, 0876302 ####[facility] [address] [place] [address] Protein [Mass/Vol] 7.1 g/dL Normal 6.0-7.8 [facility] Comment on above: Performed By: #### 2 427848, 73131195, 4163887, 5046356, 1129241, 1874947, 1492606 ####[facility] [address] [place] [address] Lipase Levelon 05-14-2020 Lipase [Catalytic activity/Vol] 36 U/L Normal 13-58 [facility] Comment on above: Performed By: #### 2 449638, 51187735, 3831193, 3730941, 3145381, 2589883, 2102747 ####[facility] [address] [place] [address] U BetaHcg Qualon 05-14-2020 HCG.beta subunit (U) [Moles/Vol] Negative Normal [facility] Comment on above: Performed By: #### 2 6295812, [id number] #### [facility] [address] [place] [address] UA With Cult Reflexon 2019 Bilirubin Ql (U) Negative Normal Negative [facility] Comment on above: Performed By: #### 2 0836076, 90074208 #### [facility] [address] [place] [address] Clarity (U) SL CLOUDY Abnormal Clear [facility] Comment on above: Performed By: #### 2 [id number], [id number] #### [facility] [address] [place] [address] Color (U) YELLOW Normal Yellow [facility] Comment on above: Performed By: #### 2 3799565, [id number] #### [facility] [address] [place], [place] [address] Epithelial cells.squamous LM.HPF (Urine sed) [#/Area] 3-4 Normal 0-[address] [facility] Comment on above: Performed By: #### 2 5105904, 48929921 #### [facility] [address] [address] Glucose Test strip (U) [Mass/Vol] Negative Normal Negative [facility] Comment on above: Performed By: #### 2 4038987, [id number] #### [facility] [address] [place] [address] Hemoglobin Ql (U) Negative Normal Negative [facility] Comment on above: Performed By: #### 2 3175893, 78601240 #### [facility] [address] [place] [address] Ketones (U) [Mass/Vol] TRACE Abnormal Negative [facility] Comment on above: Performed By: #### 2 5261345, [id number] #### [facility] [address] [place] [address] [place].plasma/[place]. RBC (Bld) [Mass ratio] 0-3 Normal 0-3 [facility] Comment on above: Performed By: #### 2 4525067, 25230787 #### [facility] [address] [place] [address] [place] [address] Nitrite Ql (U) Negative Normal Negative [facility] Comment on above: Performed By: #### 2 7685442, 06445359 #### [facility] [address] [place] [address] pH (U) 7.0 [pH] Invalid Interpretation Code 5.0-9.0 [facility] Comment on above: Performed By: #### 2 1261565, 30043275 #### [facility] [address] [place] [address] Protein (U) [Mass/Vol] Negative Normal Negative [facility] Comment on above: Performed By: #### 2 5700842, 47702229 #### [facility] [address] [place] [address] Specific gravity (U) [Rel density] 1.020 Invalid Interpretation Code 1.005-1.030 [facility] Comment on above: Performed By: #### 2 0843492, 65439081 #### [facility] [address] [place] [address] UA Spec Desc Clean Catch Normal [facility] Comment on above: Performed By: #### 2 3044035, 31767725 #### [facility] [address] [address] Urobilinogen Qn (U) 0.2 {Olivier'U}/dL Normal 0.0-1.0 [facility] Comment on above: Performed By: #### 2 2783959, 42189173 #### [facility] [address] [place] [address] WBC Auto Ql (U) Negative Normal Negative [facility] Comment on above: Performed By: #### 2 0575581, 58525818 #### [facility] [address] [place] [address] WBC LM.HPF (Urine sed) [#/Area] 0-5 Normal 0-5 [facility] Comment on above: Performed By: #### 2 3852884, 36603415 #### [facility] [address] [place] [address] US Pelvis Non-OB Completeon 05-14-2020 US Pelvis [...] TUCKER Technical Comments Transabdominal Ultrasound Performed Normal [facility] XR Abdomen Series w/ Chest [...] DO Transcribed by: GABRIELE Technologist: TERESA Normal [facility] eGFRon 05-14-2020 GFR/1.73 sq M.predicted among blacks MDRD (S/P/Bld) [Vol rate/Area] mL/min/{1.73_m2} Normal >=59 [facility] Comment on above: Order Comment: Order added by Discern Expert. Result Comment: eGFR is race adjusted. AA=. Performed By: #### 2 491180, 09908447, 2426775, 0383998, 5218444, 6099290, 9212570 ####[facility] [address] [place] [address] GFR/1.73 sq M.predicted among non-blacks MDRD (S/P/Bld) [Vol rate/Area] mL/min/{1.73_m2} Normal >=59 [facility] Comment on above: Order Comment: Order added by Discern Expert. Result Comment: Fresh Work Inspector pérez kidney disease could be indicated at eGFR's of less than 60 mL/min/1.73m2. Kidney failure is indicated at less than 15 mL/min/1.73m2. Performed By: #### 2 593987, 62720133, 3010694, 6025616, 3243299, 6899575, 5890040 ####[facility] [address] [place] [address] Consent for Treatmenton 08 Consent for Treatment [id number] #[id number]:[id number] Normal [facility] Vital Signs Date Time Vital Sign Value Performing Clinician Facility 04-19-2025 14:23-0400 Body mass index (BMI) [Ratio] 29.54 kg/m2 Dominic Hester DO Work Phone: [facility] 04-19-2025 14:23-0400 Body weight 75.64 kg Dominic Mir DO Work Phone: [facility] 04-19-2025 14:23-0400 Diastolic blood pressure 58 mm[Hg] Dominic Mir DO Work Phone: [facility] 04-19-2025 14:23-0400 Systolic blood pressure 102 mm[Hg] Dominic Mir DO Work Phone: [facility] 04-06-2025 15:27-0400 Body mass index (BMI) [Ratio] 29.05 kg/m2 Nahun Deer PA Work Phone: [facility] 04-06-2025 15:27-0400 Body weight 74.39 kg Nahun Heather PA Work Phone: [facility] 04-06-2025 15:27-0400 Diastolic blood pressure 74 mm[Hg] Nahun Deer PA Work Phone: [facility] 04-06-2025 15:27-0400 Systolic blood pressure 120 mm[Hg] Nahun Heather PA Work Phone: [facility] 03-23-2025 14:44-0400 Body mass index (BMI) [Ratio] 28.7 kg/m2 Dominic Mir DO Work Phone: [facility] 03-23-2025 14:44-0400 Body weight 73.48 kg Dominic Mir DO Work Phone: [facility] 03-23-2025 14:44-0400 Diastolic blood pressure 68 mm[Hg] Dominic Mir DO Work Phone: [facility] 03-23-2025 14:44-0400 Systolic blood pressure 112 mm[Hg] Dominic Mir DO Work Phone: [facility] 03-09-2025 14:55-0400 Body mass index (BMI) [Ratio] 28.21 kg/m2 Nahun Heather PA Work Phone: [facility] 03-09-2025 14:55-0400 Body weight 72.23 kg Nahun Heather PA Work Phone: [facility] 03-09-2025 14:55-0400 Diastolic blood pressure 60 mm[Hg] Nahun HEADLEY Work Phone: [facility] 03-09-2025 14:55-0400 Systolic blood pressure 98 mm[Hg] Nahun HEADLEY Work Phone: [facility] 02-23-2025 15:23-0400 Body mass index (BMI) [Ratio] 28.03 kg/m2 Dominic Mir DO Work Phone: [facility] 02-23-2025 15:23-0400 Body weight 71.78 kg Dominic Mir DO Work Phone: [facility] 02-23-2025 15:23-0400 Diastolic blood pressure 60 mm[Hg] Dominic Mir DO Work Phone: [facility] 02-23-2025 15:23-0400 Systolic blood pressure 100 mm[Hg] Dominic Mir DO Work Phone: [facility] 02-10-2025 10:44-0400 Diastolic blood pressure 54 mm[Hg] PHYSICIAN NO [facility] 02-10-2025 10:44-0400 Heart rate 53 /min PHYSICIAN NO [facility] 02-10-2025 10:44-0400 Respiratory rate 18 /min PHYSICIAN NO [facility] 02-10-2025 10:44-0400 SaO2% (BldA) [Mass fraction] 100 % PHYSICIAN NO [facility] 02-10-2025 10:44-0400 Systolic blood pressure 95 mm[Hg] PHYSICIAN NO [facility] 02-10-2025 08:40-0400 Body height 162.56 cm PHYSICIAN NO [facility] 02-10-2025 08:40-0400 Body weight 69.45 kg PHYSICIAN NO [facility] 02-10-2025 08:35-0400 Body temperature 98.2 [degF] PHYSICIAN NO [facility] 01-31-2025 15:23-0400 Body mass index (BMI) [Ratio] 28.48 kg/m2 Hector Oliverosly DATA COORDINATOR Work Phone: [facility] 01-31-2025 15:23-0400 Body weight 72.94 kg Hector Steve DATA COORDINATOR Work Phone: [facility] 01-31-2025 15:23-0400 Diastolic blood pressure 58 mm[Hg] Hector Oilverosly DATA COORDINATOR Work Phone: [facility] 01-31-2025 15:23-0400 Systolic blood pressure 100 mm[Hg] Hector Steve DATA COORDINATOR Work Phone: [facility] 12-28-2024 15:01-0400 Body mass index (BMI) [Ratio] 25.69 kg/m2 Dominic Mir DO Work Phone: [facility] 12-28-2024 15:01-0400 Body weight 65.77 kg Dominic Mir DO Work Phone: [facility] 12-28-2024 15:01-0400 Diastolic blood pressure 56 mm[Hg] Dominic Mir DO Work Phone: [facility] 12-28-2024 15:01-0400 Systolic blood pressure 96 mm[Hg] Dominic Mir DO Work Phone: [facility] 11-30-2024 15:04-0500 Body mass index (BMI) [Ratio] 24.62 kg/m2 Nahun HEADLEY Work Phone: [facility] 11-30-2024 15:04-0500 Body weight 63.05 kg Nahun HEADLEY Work Phone: [facility] 11-30-2024 15:04-0500 Diastolic blood pressure 62 mm[Hg] Nahun HEADLEY Work Phone: [facility] 11-30-2024 15:04-0500 Systolic blood pressure 100 mm[Hg] Nahun HEADLEY Work Phone: [facility] 11-02-2024 10:59-0500 Body mass index (BMI) [Ratio] 23.91 kg/m2 Dominic Mir DO Work Phone: [facility] 11-02-2024 10:59-0500 Body weight 61.24 kg Dominic Mir DO Work Phone: [facility] 11-02-2024 10:59-0500 Diastolic blood pressure 68 mm[Hg] Dominic Mir DO Work Phone: [facility] 11-02-2024 10:59-0500 Systolic blood pressure 116 mm[Hg] Dominic Mir DO Work Phone: [facility] 10-26-2024 10:04-0500 Body temperature 98.5 [degF] PHYSICIAN NO [facility] 10-26-2024 10:04-0500 Diastolic blood pressure 64 mm[Hg] PHYSICIAN NO [facility] 10-26-2024 10:04-0500 Heart rate 60 /min PHYSICIAN NO [facility] 10-26-2024 10:04-0500 Respiratory rate 18 /min PHYSICIAN NO [facility] 10-26-2024 10:04-0500 SaO2% (BldA) [Mass fraction] 100 % PHYSICIAN NO [facility] 10-26-2024 10:04-0500 Systolic blood pressure 111 mm[Hg] PHYSICIAN NO [facility] 10-26-2024 10:02-0500 Body height 160.02 cm PHYSICIAN NO [facility] 10-26-2024 10:02-0500 Body weight 58.5 kg PHYSICIAN NO [facility] 10-01-2024 11:38-0500 Body mass index (BMI) [Ratio] 22.11 kg/m2 Nom Nurse [facility] 10-01-2024 11:38-0500 Body weight 56.61 kg Noms Nurse [facility] 10-01-2024 11:38-0500 Diastolic blood pressure 70 mm[Hg] [facility] Nurse [facility] 10-01-2024 11:38-0500 Systolic blood pressure 120 mm[Hg] [facility] Nurse [facility] 07-19-2024 13:26-0400 Body mass index (BMI) [Ratio] 22.5 kg/m2 Dominic Mir DO Work Phone: [facility] 07-19-2024 13:26-0400 Body weight 57.61 kg Dominic Mir DO Work Phone: [facility] 07-19-2024 13:26-0400 Diastolic blood pressure 60 mm[Hg] Dominic Mir DO Work Phone: [facility] 07-19-2024 13:26-0400 Systolic blood pressure 110 mm[Hg] Dominic Mir DO Work Phone: [facility] 06-29-2024 14:00-0400 Body mass index (BMI) [Ratio] 20.73 kg/m2 Dominic Mir DO Work Phone: [facility] 06-29-2024 14:00-0400 Body weight 53.07 kg Dominic Mir DO Work Phone: [facility] 06-29-2024 14:00-0400 Diastolic blood pressure 66 mm[Hg] Dominic Mir DO Work Phone: [facility] 06-29-2024 14:00-0400 Systolic blood pressure 108 mm[Hg] Dominic Mir DO Work Phone: [facility] 06-17-2024 14:12-0400 Body height 160.02 cm PHYSICIAN NO [facility] 06-17-2024 14:12-0400 Body temperature 98.5 [degF] PHYSICIAN NO [facility] 06-17-2024 14:12-0400 Body weight 52.4 kg PHYSICIAN NO [facility] 06-17-2024 14:12-0400 Diastolic blood pressure 52 mm[Hg] PHYSICIAN NO [facility] 06-17-2024 14:12-0400 Heart rate 72 /min PHYSICIAN NO [facility] 06-17-2024 14:12-0400 Respiratory rate 20 /min PHYSICIAN NO [facility] 06-17-2024 14:12-0400 SaO2% (BldA) [Mass fraction] 99 % PHYSICIAN NO [facility] 06-17-2024 14:12-0400 Systolic blood pressure 109 mm[Hg] PHYSICIAN NO [facility] 04-07-2023 14:45-0400 Body height 160.02 cm Dutch Vanessa Other [facility] Other 04-07-2023 14:45-0400 Body mass index (BMI) [Ratio] 21.25 kg/m2 Dutch Vanessa Other [facility] Other 04-07-2023 14:45-0400 Body temperature 98 [degF] Dutch Vanessa Other [facility] Other 04-07-2023 14:45-0400 Body weight 54.43 kg Dutch Mendez Other [facility] Other 04-07-2023 14:45-0400 Diastolic blood pressure 62 mm[Hg] Dutch Vanessa Other [facility] Other 04-07-2023 14:45-0400 Respiratory rate 18 /min Dutch Mendez Other [facility] Other 04-07-2023 14:45-0400 SaO2% (BldA) [Mass fraction] 97 % Dutch Vanessa Other [facility] Other 04-07-2023 14:45-0400 Systolic blood pressure 99 mm[Hg] Dutch Vanessa Other [facility] Other 01-03-2023 18:30-0400 Diastolic blood pressure 53 mm[Hg] DATA COORDINATOR-C Naomy Garcia Work Phone: [facility] 01-03-2023 18:30-0400 Heart rate 51 /min DATA COORDINATOR-C Naomy Luby Work Phone: [facility] 01-03-2023 18:30-0400 Respiratory rate 16 /min DATA COORDINATOR-C Naomy Luby Work Phone: [facility] 01-03-2023 18:30-0400 SaO2% (BldA) [Mass fraction] 100 % DATA COORDINATOR-C Naomy Luby Work Phone: [facility] 01-03-2023 18:30-0400 Systolic blood pressure 96 mm[Hg] DATA COORDINATOR-C Naomy Luby Work Phone: [phone] [address] 01-03-2023 14:50-0400 Body height 160.02 cm DATA COORDINATOR-C Naomy Luby Work Phone: [phone])[phone] [address] 01-03-2023 14:50-0400 Body temperature 98.1 [degF] DATA COORDINATOR-C Naomy Luby Work Phone: 5([phone])[phone] [address] 01-03-2023 14:50-0400 Body weight 58.65 kg DATA COORDINATOR-C Naomy Luby Work Phone: [facility] 08-02-2022 20:04-0400 Diastolic blood pressure 51 mm[Hg] DATA COORDINATOR-C Naomy Luby Work Phone: [facility] 08-02-2022 20:04-0400 Heart rate 81 /min DATA COORDINATOR-C Naomy Luby Work Phone: [facility] 08-02-2022 20:04-0400 Respiratory rate 16 /min DATA COORDINATOR-C Naomy Luby Work Phone: [facility] 08-02-2022 20:04-0400 SaO2% (BldA) [Mass fraction] 100 % DATA COORDINATOR-C Naomy Luby Work Phone: [facility] 08-02-2022 20:04-0400 Systolic blood pressure 104 mm[Hg] DATA COORDINATOR-C Naomy Luby Work Phone: [facility] 08-02-2022 17:33-0400 Body height 160.02 cm DATA COORDINATOR-C Naomy Luby Work Phone: [facility] 08-02-2022 17:33-0400 Body temperature 98.8 [degF] DATA COORDINATOR-C Naomy Garcia Work Phone: [facility] 08-02-2022 17:33-0400 Body weight 59.4 kg DATA COORDINATOR-C Naomy Garcia Work Phone: [facility] Encounters Encounter Date Encounter Type Care Provider Facility Start: 04-26-2025 End: 04-26-2025 Bamboo flowsheet Dominic Mir DO Work Phone: [facility] Start: 04-26-2025 End: 04-26-2025 Bamboo flowsheet Dominic Mir DO Work Phone: [facility] Start: 04-26-2025 End: 04-26-2025 Clinisync Result Encounter Dominic Mir DO Work Phone: [facility] External [facility] Unsolicited Start: 04-21-2025 End: 04-21-2025 Clinisync Result Encounter Nahun HEADLEY Work Phone: [facility] Unsolicited Start: 04-21-2025 End: 04-21-2025 Clinisync Result Encounter Nahun HEADLEY Work Phone: [facility] Unsolicited Start: 04-19-2025 End: 04-19-2025 Office outpatient visit 15 minutes Dominic Mir DO Work Phone: [facility] Comment on above: Third trimester preg freddie ([facility]); Mood changes Start: 04-19-2025 End: 04-19-2025 ambulatory DOMINIC MIR Not Available Start: 04-19-2025 End: 04-19-2025 Bamboo flowsheet Dominic Mir DO Work Phone: [facility] Start: 04-19-2025 End: 04-19-2025 Bamboo flowsheet Dominic Mir DO Work Phone: [facility] Start: 04-13-2025 End: 04-13-2025 Clinisync Result Encounter Nahun HEADLEY Work Phone: [facility] Unsolicited Start: 04-13-2025 End: 04-13-2025 Clinisync Result Encounter Nahun HEADLEY Work Phone: [facility] Unsolicited Start: 04-06-2025 End: 04-06-2025 Office outpatient visit 15 minutes Nahun HEADLEY Work Phone: [facility] Comment on above: size inconsist ent with dates ([facility] 34 weeks gestation of ([facility]); Third trimester ([facility]); Excessive growth affecting management of in third trimester, single or unspecified fetus ([facility]) Start: 04-06-2025 End: 04-06-2025 ambulatory NAHUN ROMERO Not Available Start: 04-06-2025 End: 04-06-2025 Clinisync Result Encounter Dominic Mir DO Work Phone: [facility] Unsolicited Start: 04-06-2025 End: 04-06-2025 Clinisync Result Encounter Dominic Mir DO Work Phone: [facility] Unsolicited Start: 03-23-2025 End: 03-23-2025 Office outpatient visit 15 minutes Dominic Mir DO Work Phone: [facility] Comment on above: Third trimester preg freddie ([facility]); 32 weeks gestation of ([facility]); size inconsistent with dates ([facility]) Start: 03-23-2025 End: 03-23-2025 ambulatory DOMINIC MIR Not Available Start: 03-23-2025 End: 03-23-2025 Bamboo flowsheet Dominic Mir DO Work Phone: [facility] Start: 03-23-2025 End: 03-23-2025 Bamboo flowsheet Dominic Mir DO Work Phone: [facility] Start: 03-09-2025 End: 03-09-2025 flow sheet Nahun HEADLEY Work Phone: [facility] Comment on above: Third trimester preg freddie; 30 weeks gestation of Start: 03-09-2025 End: 03-09-2025 ambulatory NAHUN ROMERO Not Available Start: 03-09-2025 End: 03-09-2025 Bamboo flowsheet Nahun Romero PA Work Phone: [facility] Start: 03-09-2025 End: 03-09-2025 Bamboo flowsheet Nahun Romero PA Work Phone: [facility] Start: 02-23-2025 [...] End: 02-17-2025 Clinisync Result Encounter Hector Power DATA COORDINATOR Work Phone: [facility] Unsolicited Start: 02-17-2025 End: 02-17-2025 Clinisync Result Encounter Hector Power DATA COORDINATOR Work Phone: [facility] Unsolicited Start: 02-10-2025 End: 02-10-2025 Emergency department patient visit PHYSICIAN [facility] Work Phone: Start: 01-31-2025 End: 01-31-2025 ambulatory HECTOR POWER Not Available Start: 01-31-2025 End: 01-31-2025 Office outpatient visit 15 minutes Hector Power DATA COORDINATOR Work Phone: [facility] Comment on above: 25 weeks gestation o f ; Second trimester ; Encounter for follow-up ultrasound of anatomy; Diabetes mellitus screening Start: 01-31-2025 End: 01-31-2025 Bamboo flowsheet Hector Steve NP Work Phone: [facility] Start: 01-31-2025 End: 01-31-2025 Bamboo flowsheet Hector Steve NP Work Phone: [facility] Start: 12-28-2024 End: 12-28-2024 Office outpatient visit 15 minutes Dominic Mir DO Work Phone: [facility] Comment on above: 20 weeks gestation o f ; Second trimester Start: 12-28-2024 End: 12-28-2024 ambulatory DOMINIC MIR Not Available Start: 12-28-2024 End: 12-28-2024 ambulatory DOMINIC MIR Not Available Start: 11-30-2024 End: 11-30-2024 Office outpatient visit 15 minutes Nahun HEADLEY Work Phone: [facility] Comment on above: 16 weeks gestation o f ; Second trimester ; Well woman exam with routine gynecological exam; STD exposure; Vaginal discharge; Screening, , for anatomic survey Start: 11-30-2024 End: 11-30-2024 Patient encounter procedure Nahun HEADLEY Work Phone: [facility] Healthcare Start: 11-30-2024 End: 11-30-2024 ambulatory NAHUN ROMERO Not Available Start: 11-30-2024 End: 11-30-2024 Bamboo flowsheet Nahun HEADLEY Work Phone: [facility] Start: 11-30-2024 End: 12-06-2024 Bamboo flowsheet Nahun HEADLEY Work Phone: [facility] Start: 11-30-2024 End: 12-06-2024 Clinisync Result Encounter Nahun HEADLEY Work Phone: [facility] External Department Unsolicited Start: 11-02-2024 End: 11-02-2024 [...] 10-26-2024 Emergency department patient visit PHYSICIAN KARLY [facility] Work Phone: Start: 10-19-2024 End: 10-19-2024 [...] OB Start: 07-19-2024 End: 07-19-2024 ambulatory DOMINIC IMR Not Available Start: 07-19-2024 End: 07-19-2024 Office [...] End: 06-17-2024 Emergency department patient visit PHYSICIAN [facility] Work Phone: Start: 04-24-2024 End: 04-24-2024 Patient encounter procedure DATA COORDINATOR-C Naomy Skyjuanito Work Phone: [facility] [place] Work Phone: Start: 04-24-2024 End: 04-24-2024 ambulatory DATA COORDINATOR-C Naomy Garcia Work Phone: [facility] Work Phone: Start: 02-09-2024 End: 02-09-2024 ambulatory DATA COORDINATOR-C Naomy Garcia Work Phone: [facility] Work Phone: Start: 02-09-2024 End: 02-09-2024 Patient encounter procedure DATA COORDINATOR-C Naomy Garcia Work Phone: [facility] [place] Work Phone: Start: 04-07-2023 End: 04-07-2023 ambulatory Dutch Vanessa Other [place] [employer] Other Start: 04-07-2023 Office outpatient ne w 20 minutes [place] [facility] Start: 03-28-2023 End: 03-28-2023 ambulatory DATA COORDINATOR-C Naomy Garcia Work Phone: [facility] Work Phone: Start: 03-28-2023 End: 03-28-2023 Patient encounter procedure DATA COORDINATOR-C Naomy Radha Work Phone: [facility] [place] Work Phone: Start: 01-17-2023 End: 01-17-[address] DOMINIC HESTER . Facility:[facility]1 Start: 01-17-2023 End: 01-18-[address] DOMINIC HESTER . Facility:[facility]1 Start: 01-03-2023 End: 01-04-[address] DOCTOR PATEL Facility:[facility]1 Start: 01-03-2023 End: 01-03-2023 Emergency department patient visit DATA COORDINATOR-C Naomy Garcia Work Phone: [facility]-Emergency Room Work Phone: Start: 12-26-2022 End: 12-27-[address] DOMINIC HESTER . Facility:[facility]1 Start: 12-25-2022 End: 12-26-[address] DOMINIC HESTER . Facility:[facility]1 Start: 08-02-2022 End: 08-02-2022 Emergency department patient visit DATA COORDINATOR-C Naomy Radha Work Phone: [facility]-Emergency Room Start: 07-31-2022 Encounter for other preprocedural examination DR DOMINIC HESTER . [facility] Start: 07-29-2022 End: 07-30-2022 Encounter for other preprocedural examination DR DOMINIC HESTER . Facility:[facility]1 Start: 07-29-2022 End: 07-30-[address] DOMINIC HESTER . Facility:[facility]1 Start: 07-16-2022 End: 07-17-[address] DOMINIC HESTER . Facility:[facility]1 Start: 06-18-2022 End: 06-18-2022 Patient encounter procedure DATA COORDINATOR-Lauren Moralez Radha Work Phone: [facility] [place] Start: 06-01-[address] DOMINIC HESTER . Facili ty:H1 Start: 05-30-2022 End: 05-30-[address] DOMINIC HESTER . Facility:[facility]1 Start: 05-28-2022 End: 05-28-2022 ambulatory ROGELIO HERNANDEZ . Facility:[facility]1 Procedures Date Procedure Procedure Detail Performing Clinician Start: 04-26-2025 US OB BPP W NON-STRESS Dominic Hester DO Work Phone: Start: 04-21-2025 US OB BPP W NON-STRESS Nahun HEADLEY Work Phone: Start: 04-13-2025 US OB BPP W NON-STRESS Nahun HEADLEY Work Phone: Start: 04-06-2025 Urnls dip stick/tabl et rgnt non-auto w/o micrscp Nahun HEADLEY Work Phone: Start: 04-06-2025 US OB GROWTH Dominic Fazi o DO Work Phone: Start: 03-23-2025 Urnls dip stick/tabl et rgnt non-auto w/o micrscp Dominic Mir DO Work Phone: Start: 03-09-2025 Urnls dip stick/tabl et rgnt non-auto w/o micrscp Nahun HEADLEY Work Phone: Start: 02-23-2025 Urnls dip stick/tabl et rgnt non-auto w/o micrscp Dominic Mir DO Work Phone: Start: 02-17-2025 ALL CBC WITH AUTO DIFF Hector Steve DATA COORDINATOR Work Phone: Start: 01-31-2025 Urnls dip stick/tabl et rgnt non-auto w/o micrscp Hector Steve DATA COORDINATOR Work Phone: Start: 12-28-2024 Urnls dip stick/tabl et rgnt non-auto w/o micrscp Dominic Mir DO Work Phone: Start: 11-30-2024 Urnls dip stick/tabl et rgnt non-auto w/o micrscp Nahun HEADLEY Work Phone: Start: 11-30-2024 IGP,APTIMA HPV,AGE GDLN Nahun HEADLEY Work Phone: Start: 11-30-2024 Microscopic observat [...] DO Work Phone: Start: 02-09-2024 Pelvic echography DATA COORDINATOR-C Naomy Garcia Work Phone: Start: 02-09-2024 Transvaginal echography DATA COORDINATOR-Lauren Garcia Work Phone: Start: 05-30-2023 Microscopic observat ion [Identifier] in Cervix by Cyto stain Dominic Mir DO Work Phone: Start: 01-03-2023 Diagnostic ultrasoun d of gravid uterus DATA COORDINATOR-C Naomy Garcia Work Phone: Start: 01-03-2023 Ultrasonography of r ight kidney DATA COORDINATOR-Lauren Garcia Work Phone: Start: 01-03-2023 Transvaginal obstetr ic ultrasonography DATA COORDINATOR-Lauren Garcia Work Phone: Plan of Treatment Date Care Activity Detail Author Start: 05-30-2028 Screening for malign ant neoplasm of cervix [facility] Start: 11-30-2025 Screening for malign ant neoplasm of cervix [facility] Start: 06-06-2025 Influenza vaccination [facility] Start: 05-04-2025 End: 05-04-2025 Patient encounter procedure 05/04/2025 1:30 PM EDT Office Visit [facility] [address] [place] [address] Hector Steve, DATA COORDINATOR [address] [place] [address] [facility] Start: 04-26-2025 End: 04-26-2025 Patient encounter procedure [facility] Comment on above: Arrived Start: 04-19-2025 End: 04-19-2025 Patient encounter procedure [facility] Comment on above: Arrived Start: 04-19-2025 End: 04-19-2026 CULTURE, GROUP B STREP WITH SUSCEPTIBLITY CULTURE, GROUP B STREP WITH SUSCEPTIBLITY Lab Routine Third trimester ([facility]) Expected: 04/19/2025, Expires: 04/19/2026 [facility] Work Phone: Comment on above: Expected: 04/19/2025 , Expires: 04/19/2026 Start: 04-06-2025 End: 04-06-2025 Patient encounter procedure 04/06/2025 2:50 PM EDT Routine [facility] [address] [place] [phone] Nahun Romero PA [address] [place] [address] [facility] Start: 03-23-2025 End: 03-23-2025 Patient encounter procedure [facility] Comment on above: Arrived Start: 03-23-2025 End: 07-23-2025 US for US OB follow up transabdominal approach Imaging Routine size inconsistent with dates ([facility]) Expected: 03/23/2025, Expires: 07/23/2025 [facility] Work Phone: Comment on above: Expected: 03/23/2025 , Expires: 07/23/2025 Start: 03-09-2025 End: 03-09-2025 Patient encounter procedure [facility] Comment on above: Arrived Start: 02-23-2025 End: 02-23-2025 Patient encounter procedure [facility] Comment on above: Arrived Start: 02-10-2025 [facility] Start: 02-03-2025 End: 02-03-2025 Professional / ancillary services management 02/03/2025 2:30 PM EDT Ancillary Procedure [facility] [address] [place] [phone] [facility] Start: 01-31-2025 End: 01-31-2026 CBC panel - Blood by Automated count CBC Lab Routine Diabetes mellitus screening Expected: 01/31/2025 (Approximate), Expires: 01/31/2026 [facility] Comment on above: Expected: 01/31/2025 (Approximate), Expires: 01/31/2026 Start: 01-31-2025 End: 01-31-2026 Measurement of glucose 1 hour after glucose challenge for glucose tolerance test Glucose tolerance, 1 hour Lab Routine Diabetes mellitus screening Expected: 01/31/2025 (Approximate), Expires: 01/31/2026 [facility] Comment on above: Expected: 01/31/2025 (Approximate), Expires: 01/31/2026 Start: 01-31-2025 End: 05-02-2025 US for US OB limited 1+ fetuses Imaging Routine Encounter for follow-up ultrasound of anatomy Expected: 01/31/2025, Expires: 05/02/2025 [facility] Work Phone: Comment on above: Expected: 01/31/2025 , Expires: 05/02/2025 Start: 01-25-2025 End: 01-25-2025 Patient encounter procedure 01/25/2025 2:40 PM EDT Routine [facility] [address] [place] [phone] Nahun Romero PA [address] [place] [address] [facility] Start: 12-28-2024 End: 12-28-2024 Patient encounter procedure 12/28/2024 2:40 PM EDT Routine [facility] [address] [place] [phone] Dominic Hester DO [address] [place], [place] [id number] [facility] Start: 12-28-2024 End: 12-28-2024 Professional / ancillary services management 12/28/2024 1:30 PM EDT Ancillary Procedure [facility] [address] [place] [phone] [facility] Start: 12-20-2024 End: 12-20-2024 Patient encounter procedure 12/20/2024 2:10 PM EDT Office Visit [facility] [address] [place] [phone] Dominic Hester DO [address] [place], [place] [id number] [facility] Start: 11-30-2024 End: 11-30-2024 Patient encounter procedure 11/30/2024 2:30 PM EST Routine [facility] [address] [place] [address] Nahun Romero PA [address] [place] [address] Arrived [facility] Comment on above: [...] AM EST Routine [facility] [address] [facility] [place] [phone] Dominic Hester, DO [address] [place] [address] [facility] Start: 10-01-2024 End: 10-01-2025 ABO/Rh ABO/Rh Lab Routine Missed menses , unspecified gestational age Expected: 10/01/2024 (Approximate), Expires: 10/01/2025 [facility] Comment on above: Expected: 10/01/2024 (Approximate), Expires: 10/01/2025 Start: 10-01-2024 End: 10-01-2025 Blood type and Indirect antibody screen panel - Blood Type and screen Lab Routine Missed menses , unspecified gestational age Expected: 10/01/2024 (Approximate), Expires: 10/01/2025 [facility] Work Phone: Comment on above: Expected: 10/01/2024 (Approximate), Expires: 10/01/2025 Start: 10-01-2024 End: 10-01-2025 Drugs of abuse panel - Urine by Screen method Rapid drug screen, urine Lab Routine , unspecified gestational age Encounter for supervision of normal first in first trimester Expected: 10/01/2024 (Approximate), Expires: 10/01/2025 [facility] Comment on above: Expected: 10/01/2024 (Approximate), Expires: 10/01/2025 Start: 07-19-2024 End: 07-19-2024 Patient encounter procedure 07/19/2024 1:00 PM EDT Office Visit [facility] [address] [place] [address] Dominic Hester, DO [address] [place] [address] [facility] Start: 06-29-2024 End: 06-29-2025 SURESWAB(R) ADVANCED VAGINITIS PLUS, TMA SURESWAB(R) ADVANCED VAGINITIS PLUS, TMA Pathology and Cytology Routine Pelvic pain in female Expected: 06/29/2024 (Approximate), Expires: 06/29/2025 [facility] Work Phone: Comment on above: Expected: 06/29/2024 (Approximate), Expires: 06/29/2025 Start: 06-29-2024 End: 06-29-2025 US for US PELVIS-TRANSVAG IF INDICATED Imaging Routine Pelvic pain in female Expected: 06/29/2024 (Approximate), Expires: 06/29/2025 [facility] Comment on above: Expected: 06/29/2024 (Approximate), Expires: 06/29/2025 Start: 06-29-2024 End: 06-29-2024 Patient encounter procedure 06/29/2024 1:40 PM EDT Office Visit [facility] [address] [place] [address] Dominic Hester DO [address] [place] [address] Arrived [facility] Comment on above: Arrived Start: 06-06-2024 Influenza vaccination Influenza Vacc ine (#1) [facility] Start: 03-28-2023 [facility] Start: 01-03-2023 [facility] Start: 06-18-2022 [facility] Work Phone: Bacteria identified in Blood by Culture Blood Culture [facility] Bacteria identified in Urine by Culture Urine culture Microbiology Routine Missed menses Ordered: 10/01/2024 [facility] Comment on above: Ordered: 10/01/2024 CBC W Auto Different ial panel - Blood CBC and differential Lab Routine Missed menses , unspecified gestational age Ordered: 10/01/2024 [facility] Comment on above: Ordered: 10/01/2024 CHLAMYDIA TRACHOMATI S (GENITO/STI) CHLAMYDIA TRACHOMATIS (GENITO/STI) Lab Routine Pelvic pain in female Ordered: 06/29/2024 [facility] Comment on above: Ordered: 06/29/2024 CHLAMYDIA TRACHOMATI S (GENITO/STI) CHLAMYDIA TRACHOMATIS (GENITO/STI) Lab Routine STD exposure Vaginal discharge Ordered: 11/30/2024 [facility] Comment on above: Ordered: 11/30/2024 Cytology Cervical or vaginal smear or scraping study Pap Smear Pathology and Cytology Routine Well woman exam with routine gynecological exam Ordered: 11/30/2024 [facility] Work Phone: Comment on above: Ordered: 11/30/2024 Glucose measurement estimated from glycated hemoglobin [facility] Hemoglobin A1c/Hemoglobin.total in Blood Hemoglobin A1c Lab Routine Missed menses , unspecified gestational age Ordered: 10/01/2024 [facility] Comment on above: Ordered: 10/01/2024 Hepatitis A virus antibody, IgM type [facility] Work Phone: Hepatitis B core antibody measurement, IgM type [facility] Work Phone: Hepatitis B virus surface Ag [Presence] in Serum or Plasma by Immunoassay [facility] Work Phone: Hepatitis B virus surface Ag [Presence] in Serum or Plasma by Immunoassay Hepatitis B surface antigen Lab Routine Missed menses , unspecified gestational age Ordered: 10/01/2024 [facility] Comment on above: Ordered: 10/01/2024 Hepatitis C virus Ab [Presence] in Serum or Plasma by Immunoassay Hepatitis C antibody Lab Routine Missed menses , unspecified gestational age Ordered: 10/01/2024 [facility] Comment on above: Ordered: 10/01/2024 Hepatitis C virus Ab Signal/Cutoff in Serum or Plasma by Immunoassay [facility] Work Phone: Hepatitis C virus RN A [log units/volume] (viral load) in Serum or Plasma by JOSE with probe detection [facility] Work Phone: Hepatitis C virus RN A [Units/volume] (viral load) in Serum or Plasma by JOSE with probe detection [facility] Work Phone: HIV 1+2 Ab+HIV1 p24 Ag [Presence] in Serum or Plasma by Immunoassay [facility] Work Phone: HIV-1/HIV-2 antigen/antibody combination immunoassay HIV-1 and HIV-2 antibodies Lab Routine Missed menses , unspecified gestational age Ordered: 10/01/2024 [facility] Comment on above: Ordered: 10/01/2024 Human papilloma viru s DNA [Presence] in Unspecified specimen by Probe with amplification HPV DNA probe, amplified Microbiology Routine Well woman exam with routine gynecological exam Ordered: 11/30/2024 [facility] Comment on above: Ordered: 11/30/2024 Neisseria gonorrhoea e DNA [Presence] in Unspecified specimen by JOSE with probe detection Neisseria gonorrhea DNA probe, direct Lab Routine Pelvic pain in female Ordered: 06/29/2024 [facility] Comment on above: Ordered: 06/29/2024 Neisseria gonorrhoea e DNA [Presence] in Unspecified specimen by JOSE with probe detection Neisseria gonorrhea DNA probe, direct Lab Routine STD exposure Vaginal discharge Ordered: 11/30/2024 [facility] Comment on above: Ordered: 11/30/2024 Patient Education [facility] Work Phone: Patient referral [facility] Work Phone: Reagin Ab [Presence] in Serum by RPR [facility] Work Phone: Reagin Ab [Presence] in Serum by RPR RPR Lab Routine Missed menses , unspecified gestational age Ordered: 10/01/2024 [facility] Comment on above: Ordered: 10/01/2024 Rubella antibody, IgG Rubella an tibody, IgG Lab Routine Missed menses , unspecified gestational age Ordered: 10/01/2024 [facility] Comment on above: Ordered: 10/01/2024 SURESWAB(R) ADVANCED VAGINITIS PLUS, TMA SURESWAB(R) ADVANCED VAGINITIS PLUS, TMA Pathology and Cytology Routine STD exposure Vaginal discharge Ordered: 11/30/2024 [facility] Comment on above: Ordered: 11/30/2024 US for US OB follow up transabdominal approach Imaging Routine size inconsistent with dates ([facility]) 04/06/2025 2:45 PM EDT [facility] Work Phone: Payers Date Payer Category Payer Medicaid [facility] MEDICAID [employer] MEDICAID [place] [id number] 2022-Present [address] [place] [address] [id number] 2022 Private Health Insurance [employer] MEDICAID [id number] 1991 Unknown [id number] 2.16.840.1.373048.3.579.2. 593 1991 Unknown [id number] 2.16.840.1.996639.3.579.2. 593 1991 Unknown [id number] 2.16.840.1.607110.3.579.2. 593 1991 Unknown [id number] 2.16.840.1.977354.3.579.2. 593 1991 Unknown [id number] 2.16.840.1.067508.3.579.2. 593 1991 Unknown [id number] 2.16.840.1.510463.3.579.2. 593 1991 Unknown [id number] 2.16.840.1.922193.3.579.2. 593 1991 Unknown [id number] 2.16.840.1.294697.3.579.2. 593 1991 Unknown [id number] 2.16.840.1.538087.3.579.2. 593 1991 Unknown [id number] 2.16.840.1.598437.3.579.2. 593 1991 Unknown [id number] 2.16.840.1.292682.3.579.2. 593 1991 Unknown [id number] 2.16.840.1.487092.3.579.2. 593 1991 Unknown [id number] 2.16.840.1.634624.3.579.2. 1258 1991 Unknown [id number] 2.16.840.1.808704.3.579.2. 1258 1991 Unknown [id number] 2.16.840.1.010592.3.579.2. 1258 1991 Unknown [id number] 2.16.840.1.954833.3.579.2. 1258 1991 Unknown [id number] 2.16.840.1.718593.3.579.2. 1258 1991 Unknown [id number] 2.16.840.1.887531.3.579.2. 1258 1991 Unknown [id number] 2.16.840.1.419613.3.579.2. 1258 1991 Unknown [id number] 2.16.840.1.095461.3.579.2. 1258 1991 Unknown [id number] 2.16.840.1.978952.3.579.2. 1258 1991 Unknown [id number] 2.16.840.1.135159.3.579.2. 1258 1991 Unknown [id number] 2.16.840.1.699544.3.579.2. 1258 1991 Unknown [id number] 2.16.840.1.434685.3.579.2. 1258 1991 Unknown [id number] 2.16.840.1.413801.3.579.2. 1258 1991 Unknown [id number] 2.16.840.1.593580.3.579.2. 1259 1959 Private Health Insurance [id number] 1958 Self-pay [id number] 1958 Unknown [id number] Self-pay Self Pay [id number] Social History Date Type Detail Facility Start: 01-05-2022 End: 06-17-2024 Tobacco smoking status NHIS Smoker (finding) [facility] Start: 1990 Sex Assigned At Female F [facility] Start: 01-03-2023 [facility]finding[facility] Start: 03-09-2024 End: 04-21-2025 Sex Assigned At [facility] Start: 10-06-2010 [facility] Start: 10-06-2010 End: 05-21-2021 History of tobacco use Cigarette Smoker [facility] Start: 03-09-2024 Tobacco use and exposure Smokeless tobacco non-user [facility] Start: 06-29-2024 End: 04-06-2025 Alcoholic beverage intake Ex-drinker (finding) [facility] Start: 03-09-2024 End: 04-21-2025 History of Social function [facility] Start: 04-13-2023 Education 13 [facility] Start: 04-13-2023 Alcohol Comment Alcohol: 1 or 2 drinks on typical day/monthly or less. Caffeine: 1 bottle pop daily; 2-3 cups/day coffee [facility] Start: 1990 Sex assigned at Not on file N [facility] Start: 08-19-2024 [facility] Start: 10-26-2024 End: 02-10-2025 Tobacco smoking status ARIS Ex-smoker (finding) [facility] Start: 10-26-2024 End: 02-10-2025 Sex Female (finding) [facility] Functional Status Date Assessment Result Facility 03-01-2025 Patient Health Quest ionnaire 2 item (PHQ-2) [Reported] [facility] 03-01-2025 PHQ-9 quick depressi on assessment panel [Reported.PHQ] [facility] Clinical Notes 05-14-2020 to 04-19-2025 Christine Roth LPN - 04/19/2025 2:20 PM FANG Arevalo - [...] Anovulation 07/19/2024 confirmed by positive blood test ([facility]) 09/09/2024 20 weeks gestation of ([facility]) 12/28/2024 Second trimester ([facility]) 12/28/2024 Resolved Ambulatory Problems Diagnosis Date Noted No Resolved Ambulatory Problems Past Medical History: Diagnosis Date Anxiety Asthma (HCC) Dyspareunia in female Endometriosis Folliculitis Hematuria Miscarriage ([facility]) PID (acute pelvic inflammatory disease) Trichomoniasis 2012 HISTORY PAST MEDICAL HISTORY SOCIAL HISTORY Past Medical History: Diagnosis Date Anxiety Asthma (HCC) Dysmenorrhea Dyspareunia in female Endometriosis Folliculitis Hematuria Miscarriage ([facility]) PID (acute pelvic inflammatory disease) Trichomoniasis 2012 [...] nursing note reviewed. Exam conducted with a covering machine operator helper present. Vitals: Estimated body mass index is 29.54 kg/m as calculated from the following: Height as of 24: 5' 3 . Weight as of this encounter: 166 lb 12 oz. BP: 102/58 Patient's last menstrual period was 08/05/2024. ASSESSMENT & PLAN ICD-10-CM 1. Third trimester ([facility]) Z34.93 CULTURE, GROUP B STREP WITH SUSCEPTIBLITY [...] Documented by Christine Roth LPN on behalf of:nahun romero, pac documented in this encounter [facility] 04-06-2025 History of Present illness Narrative [...] Anovulation 07/19/2024 confirmed by positive blood test ([facility]) 09/09/2024 20 weeks gestation of ([facility]) 12/28/2024 Second trimester ([facility]) 12/28/2024 Resolved Ambulatory Problems Diagnosis Date Noted No Resolved Ambulatory Problems Past Medical History: Diagnosis Date Anxiety Asthma (HCC) Dyspareunia in female Endometriosis Folliculitis Hematuria Miscarriage ([facility]) PID (acute pelvic inflammatory disease) Trichomoniasis 2012 HISTORY PAST MEDICAL HISTORY SOCIAL HISTORY Past Medical History: Diagnosis Date Anxiety Asthma ([facility]) Dysmenorrhea Dyspareunia in female Endometriosis Folliculitis Hematuria Miscarriage ([facility]) PID (acute pelvic inflammatory disease) Trichomoniasis 2012 [...] PLAN ICD-10-CM 1. size inconsistent with dates ([facility]) O26.849 US OB follow up transabdominal approach 2. 34 weeks gestation of ([facility]) Z3A.34 3. Third trimester ([facility]) Z34.93 POCT urinalysis dipstick manually resulted [...] perform kick counts three times a day. Nahun Romero gave patient orders for a Growth US q 4 until delivery and to start doing NST/BPP starting at 35 weeks until delivery. Orders Placed This Encounter Procedures POCT urinalysis dipstick manually resulted Follow Up: Patient is to return to office in 2 week for routine OB appointment. Documented by Yuko Hernandez MA on behalf of: FANG Jackson documented in this encounter [facility] 03-23-2025 History of Present illness Narrative [...] Anovulation 07/19/2024 confirmed by positive blood test ([facility]) 09/09/2024 20 weeks gestation of ([facility]) 12/28/2024 Second trimester ([facility]) 12/28/2024 Resolved Ambulatory Problems Diagnosis Date Noted No Resolved Ambulatory Problems Past Medical History: Diagnosis Date Anxiety Asthma ([facility]) Dyspareunia in female Endometriosis Folliculitis Hematuria Miscarriage ([facility]) PID (acute pelvic inflammatory disease) Trichomoniasis 2012 HISTORY PAST MEDICAL HISTORY SOCIAL HISTORY Past Medical History: Diagnosis Date Anxiety Asthma ([facility]) Dysmenorrhea Dyspareunia in female Endometriosis Folliculitis Hematuria Miscarriage ([facility] [facility] PID (acute pelvic inflammatory disease) Trichomoniasis 2012 [...] nursing note reviewed. Exam conducted with a covering machine operator helper present. Vitals: Estimated body mass index is 28.7 kg/m as calculated from the following: Height as of 24: 5' 3 . Weight as of this encounter: 162 lb. BP: 112/68 Patient's last menstrual period was 08/05/2024. ASSESSMENT & PLAN ICD-10-CM 1. Third trimester ([facility]) Z34.93 POCT urinalysis dipstick manually resulted 2. 32 weeks gestation of ([facility]) Z3A.32 Return OB: Patient presents today [...] Dominic Hester DO documented in this encounter [facility] 03-09-2025 History of Present illness Narrative [...] of: FANG Jackson documented in this encounter [facility] 02-23-2025 History of Present illness Narrative [...] nursing note reviewed. Exam conducted with a covering machine operator helper present. Vitals: Estimated body mass index [...] Dominic Hester DO documented in this encounter [facility] 01-31-2025 History of Present illness Narrative [...] nursing note reviewed. Exam conducted with a covering machine operator helper present. Vitals: Estimated body mass index [...] Hector Steve NP documented in this encounter [facility] 12-28-2024 History of Present illness Narrative [...] nursing note reviewed. Exam conducted with a covering machine operator helper present. Vitals: Estimated body mass index [...] Dominic Hester DO documented in this encounter [facility] 11-30-2024 History of Present illness Narrative [...] nursing note reviewed. Exam conducted with a covering machine operator helper present. Vitals: Estimated body mass index [...] obtained without difficulty and [facility]. Orders Placed This [...] of: FANG Jackson documented in this encounter [facility] 11-02-2024 History of Present illness Narrative [...] Dominic Hester DO documented in this encounter [facility] 10-26-2024 Radiology Diagnostic study note [facility] [place] [address] Ultrasound Report Signed Patient: Breana Casas MR#: [id number] : 1990 Acct:[id number] Age/Sex: 33 / F ADM Date: 5 Loc: ER Room: Type: [facility] ER Attending Dr: Ordering Provider: Ale [...] Tanner Burleson M.D.10/26/2024 11:46 AM Dictation Location: [place] [address] Tech: Karmen Lobo Transcribed By: SHANE 10/26/24 1146 Dictated By: Tanner Burleson DO 10/26/24 1139 Signed By: 10/26/24 1146 [facility] 10-26-2024 Hospital Discharge instructions Additional Instructions Rest. Push fluids. Take [id number] Tylenol as needed for any pain or discomfort. Follow-up with Dr. Hester with [employer] [facility] in the next 2 to 3 days. Follow-up with primary care provider in the next 2 to 5 days. Return here if symptoms persist or worsen. [facility] Work Phone: 10-01-2024 History of Present [...] or undercooked meat, and stay away from [facility]. Patient has also been advised to [...] Archana Parham LPN documented in this encounter [facility] 07-19-2024 History of Present illness Narrative [...] Past Medical History: Diagnosis Date Anxiety Asthma ([facility]) Dyspareunia in female Endometriosis Folliculitis Hematuria Miscarriage [...] nursing note reviewed. Exam conducted with a covering machine operator helper present. Vitals: Estimated body mass index [...] Dominic Hester DO documented in this encounter [facility] 06-29-2024 History of Present illness Narrative [...] Past Medical History: Diagnosis Date Anxiety Asthma ([facility]) Dyspareunia in female Endometriosis Folliculitis Hematuria Miscarriage PID (acute pelvic inflammatory disease) Trichomoniasis 2012 HISTORY PAST MEDICAL HISTORY SOCIAL HISTORY Past Medical History: Diagnosis Date Anxiety Asthma (CMS/HCC) Dysmenorrhea Dyspareunia in female Endometriosis Folliculitis Hematuria Miscarriage PID (acute pelvic inflammatory disease) Trichomoniasis 2013 Social History Tobacco Use Smoking status: Every [...] nursing note reviewed. Exam conducted with a covering machine operator helper present. Vitals: Estimated body mass index [...] Dominic Hester DO documented in this encounter [facility] 04-07-2023 Evaluation note Encounter Date Diagnosis [...] right ear, unspecified type (ICD-10 - H60.501) [employer] Other 04-14-2023 NoteOPERATIVE NOTE OPERATION DATE: 01/17/2023 [...] products of conception were removed using an 8-Kiswahili suction curette. Excellent hemostasis was noted. The patient tolerated the procedure well. Sponge, lap, and needle counts were correct x 2. All instruments were then removed from the patient's vagina. The patient was taken to the Recovery Room in stable condition. ??[facility] [id number] NoteOPERATIVE NOTE OPERATION DATE: 07/29/2022 PROCEDURE: Diagnostic laparoscopy. PREOPERATIVE DIAGNOSIS: Pelvic pain, dyspareunia, dysmenorrhea. POSTOPERATIVE DIAGNOSIS: Pelvic pain, dyspareunia, dysmenorrhea including significant endometriosis of the posterior cul-de-sac, as well as significant adhesions of the uterus to the anterior abdominal wall all the way to the fundal region. ANESTHESIA: General. SURGEON: Dominic Hester D.O. DIE OPERATOR: ADAN Flores URINE OUTPUT: Yellow and clear. [...] taken to Recovery Room in stable condition.[facility] [id number] Note Microbiology PROCEDURE: Cervical Culture [R1] SOURCE: [...] Locations R1: This test was performed at: [facility], [address] [place] [address], [id number] , , CvswziHarrison Community HospitalComment on above:Performed By: #### [id number] ####[facility] [id number] [place], [place] [id number] NoteCall received from /s, bladder not full. [place] catheter education provided to patient, agrees to insertion at this time.[facility] HospitalEvaluation noteNo assessment information availableSycamore [facility] Ctr Work Phone: Evaluation note* Diagnosis Female infertility Female infertility of unspecified origin Anovulation Female infertility associated with anovulation documented in this encounter [facility] HealthcareEvaluation note* Diagnosis Pelvic pain in female Unspecified symptom associated with female genital organs documented in this encounter [facility] HealthcareEvaluation note* Diagnosis Missed menses , unspecified gestational age Encounter for supervision of normal first in first trimester documented in this encounter [facility] HealthcareEvaluation note* Diagnosis 12 weeks gestation of [...] worsen including fever, chills or any other concernsSycamore Medical Center Ctr Work Phone: Hospital Discharge instructions Additional Instructions It is important you follow-up with your [employer] call for appointment. Please return here if you develop any fevers, chills, shortness of breath, numbness, tingling, unilateral weakness or any other concernsOhiohealth [facility] Hospital Work Phone: Summary Purpose Family History [...] and content) DATE CREATED AUTHOR 04/20/2021 [facility] DATE CREATED AUTHOR AUTHOR'S ORGANIZ ATION 01/23/2023 [facility] DATE CREATED AUTHOR AUTHOR'S ORGANIZ ATION 02/12/2025 [facility] DATE CREATED AUTHOR AUTHOR'S ORGANIZ ATION 04/23/2025 [facility] EPIC Care Teams (unrecognized sec tion and content) Team Status: Inactive Member Role Status Dates Naomy Garcia DATA COORDINATOR-C Primary Care Provider Active Dominic Hester Attending Provider Active Team Status: Active Member Role Status Dates Naomy Garcia DATA COORDINATOR-C Primary Care Provider Active Team Status: Inactive Member Role Status Dates Naomy Garcia DATA COORDINATOR-C Primary Care Provider Active Monika Camarillo APRN Emergency Provider Active Team Status: Inactive Member Role Status Dates Naomy Garcia DATA COORDINATOR-C Primary Care Provider Active Nahun Romero PA-C Attending Provider Active Team Status: Inactive Member Role Status Dates Naomy Garcia DATA COORDINATOR-C Primary Care Provider Active S tart: February 09, 2024 End: February 09, 2024 Dominic Hester Attending Provider Active Start: Stephanie solomon 2023 End: February 09, 2024 Team Status: Active Member Role Status Dates PHYSICIAN NO FAMILY Primary Care Provider Active Team Status: Inactive Member Role Status Dates Naomy Garcia DATA COORDINATOR-C Primary Care Provider Active S tart: February [...] June 17, 2024 End: June 17, 2024 Electrical Sign Wirer Helper Relationship Specialty Start Date End Date Nahun Romero PA [facility] [place] [address] PCP - [facility] 07/06/24 Electrical Sign Wirer Helper Relationship Specialty Start Date End Date Nahun Romero [place] [facility] [place] [address] PCP - [facility] 07/06/24 Electrical Sign Wirer Helper Relationship Specialty Start Date End Date Nahun Romero [place] [facility] [place] [address] PCP - [facility] 07/06/24 Team Status: Inactive Member Role Status Dates PHYSICIAN NO FAMILY Primary Care Provider Active Start: October 26, 2024 End: October 26, 2024 Ale Fragoso APRN Emergency Provider Active S tart: October 26, 2024 End: October 26, 2024 Electrical Sign Wirer Helper Relationship Specialty Start Date End Date Nahun Romero [place] [facility] [place] [address] PCP - [facility] 07/06/24 Electrical Sign Wirer Helper Relationship Specialty Start Date End Date Nahun Romero [place] [facility] [place] [address] PCP - [facility] 07/06/24 Electrical Sign Wirer Helper Relationship Specialty Start Date End Date Nahun Romero PA [address] [place] [address] [place] [address] PCP - [facility] 07/06/24 Electrical Sign Wirer Helper Relationship Specialty Start Date End Date Nahun Romero PA [address] [place] [address] [place] [address] PCP - [facility] 07/06/24 Electrical Sign Wirer Helper Relationship Specialty Start Date End Date Nahun Romero PA [address] [place] [address] [place] [address] PCP - [facility] 07/06/24 Electrical Sign Wirer Helper Relationship Specialty Start Date End Date Nahun Romero PA [address] [place] [address] [place] [address] PCP - [facility] 07/06/24 Team Status: Inactive Member Role Status Dates PHYSICIAN NO FAMILY Primary Care Provider Active Start: February 10, 2025 End: February 10, 2025 Malcolm Gaston DO Emergency Provider Active St art: February 10, 2025 End: February 10, 2025 Electrical Sign Wirer Helper Relationship Specialty Start Date End Date Nahun Romero PA [address] [place] [address] [place] [address] PCP - [facility] 07/06/24 Electrical Sign Wirer Helper Relationship Specialty Start Date End Date Nahun Romero PA [address] [place] [address] [place] [address] PCP - [facility] 07/06/24 Electrical Sign Wirer Helper Relationship Specialty Start Date End Date Nahun Romero PA [address] [place] [address] [place] [address] PCP - [facility] 07/06/24 Electrical Sign Wirer Helper Relationship Specialty Start Date End Date Nahun Romero PA [address] [facility] [place] [address] PCP - [facility] 07/06/24 Electrical Sign Wirer Helper Relationship Specialty Start Date End Date Nahun Rmoero PA [address] [facility] [place] [address] PCP - [facility] 07/06/24 Electrical Sign Wirer Helper Relationship Specialty Start Date End Date Nahun Romero PA [address] [facility] [place] [address] PCP - [facility] 07/06/24 Goals (unrecognized section and content) Goals [...] BE BASED ON THE PRIMARY CLINICAL RECORDS. [facility] [employer] provides no warranty or guarantee of the accuracy or completeness of information in this document.
[2025-04-27 11:35] LABS: Hematocrit 34.9 % (36.0-48.0); Hemoglobin 12.0 g/dL (12.0-16.0); Immature Granulocytes Abs Auto 0.04 10^3/uL (0.00-0.03); Immature Granulocytes Pct Auto 0.6 % (0.0-0.5); Lymphocytes Absolute Auto 1.0 10^3/uL (1.2-3.8); Mean Corpuscular HGB Conc 34.4 g/dL (29.9-35.2); Mean Corpuscular Hemoglobin 32.5 pg (26.7-34.0); Mean Corpuscular Volume 94.6 fL (81.0-99.0); Platelet Count 187 10^3/uL (150-450); Red Blood Count 3.69 10^6/uL (4.20-5.40); White Blood Count 6.7 10^3/uL (4.0-11.0)
[2025-04-27] MEDS: METOCLOPRAMIDE HCL 10 MG/2 ML VIAL IVP (11:46)
[2025-04-27] MEDS: FAMOTIDINE/PF 20 MG/2 ML VIAL IV (11:46)
[2025-04-27] MEDS: CITRIC ACID/SODIUM CITRATE 30 ML SOLUTION ORACIT SHOHL'S SOLN PO (11:46)
[2025-04-27] MEDS: 0.9 % SODIUM CHLORIDE 1,000 ML 1000 ML IV ×2 (11:47→13:00)
[2025-04-27 11:49] LABS: Cannabinoid Screen Urine POSITIVE (NEGATIVE); Methamphetamines Screen Urine NEGATIVE (NEGATIVE); Tricyclic Antidepressant Urine NEGATIVE (NEGATIVE)
[2025-04-27] MEDS: CEFAZOLIN SODIUM/DEXTROSE,ISO 2 GM/50 ML PIGGYBACK IV ×2 (12:25→17:48)
[2025-04-27 13:08] LABS: Glucose Urine UA NEGATIVE (NEGATIVE)
[2025-04-27 13:17] LABS: Cast Seen? NONE SEEN #/LPF (NONE SEEN); Crystals Seen? None Seen #/HPF (None Seen)
--- NOTE | 2025-04-27 13:35 | P.ON_ITS ---
Brief Operative Note Date of procedure: 04/27/25 Pre-op diagnosis general: iup at 38wks, severe depression, ho suicidal thoughts Post-op diagnosis: same as pre-op Procedure: NAME OF PROCEDURE: [ section ] PROCEDURE: Patient was taken back to the Operating Room where she was given a spinal anesthesia with Duramorph without difficulty. She was prepped and draped in the normal sterile fashion. A Pfannenstiel skin incision was then made 2 cm above the symphysis pubis and carried down to underlying rectus fascia using a Bovie. The fascia was incised in the midline and extended laterally using Ross scissors. Two Ramo clamps were placed on the superior aspect of the fascia and dissected off the underlying rectus muscles. The same was performed on the inferior aspect as well. The muscles were then in the midline. Peritoneum was identified and entered bluntly. The peritoneum was then extended superiorly and inferiorly with good visualization of the bladder. The bladder blade was inserted. A low transverse incision was made on the patient's uterus and extended laterally digitally. The infant was then delivered atraumatically after the bladder blade was removed in the cephalic position. The cord was clamped and cut. Cord blood was obtained. The infant was handed off to awaiting team. The patient's placenta was spontaneously delivered. The uterus was then exteriorized. The uterus was cleared of all clots and debris. The bladder blade was reinserted. The patient's uterine incision was closed using #0 Vicryl in a running lock fashion. Excellent hemostasis was assured. The uterus was then returned to the patient's abdomen. The patient's abdomen was copiously irrigated using warm saline. Peritoneal gutters were cleared of all clots and debris. Again excellent hemostasis was assured. The patient's peritoneum was closed using 3-0 Vicryl in a running fashion. The patient's fascia was closed using #0 Vicryl in a running fashion. The patient's skin was closed using 4-0 Vicryl subcuticularly. The patient tolerated the procedure well. Sponge, lap, and needle counts were correct x2. The patient was taken to the Recovery Room in stable condition. Anesthesia: spinal Surgeon: Dominic Hester Paper Tube Machine Operator: Kaity Glaser Estimated blood loss (mL): 850 Pathology: none sent Condition: stable Disposition: floor Urinary Catheter Management Urinary Catheter Management Urethral: Cath placed during this visit: no
--- NOTE | 2025-04-27 13:39 | P.OBPRC_ITS ---
Procedure Pre-op/Post-op diagnoses: Pre-Op/Post-Op Diagnoses Operation Date: 04/27/25 12:15 <No data on this case meets the specified criteria> Procedure: Procedures Operation Date: 04/27/25 12:15 Actual Procedure Side Surgeon p Repeat Not Applicable Dominic Hester DO Parallel Computing Software Engineer: Kaity Glaser Estimated blood loss (mL): 850 Disposition: PACU Anesthesia type: Spinal
[2025-04-27] MEDS: OXYTOCIN/0.9 % SODIUM CHLORIDE 20 UNITS/1,000 ML PLAST..BAG 125 UNIT IV (14:40)
--- NOTE | 2025-04-27 17:07 | RESP.RT ---
Done per nursing
[2025-04-27] MEDS: OXYCODONE HCL/ACETAMINOPHEN 5MG/325MG 1 TAB PO (17:45)
[2025-04-27] MEDS: KETOROLAC TROMETHAMINE 30 MG/ML VIAL IVP (18:31)
[2025-04-27] MEDS: CITALOPRAM HYDROBROMIDE 20 MG TABLET PO (23:24)
[2025-04-28] MEDS: KETOROLAC TROMETHAMINE 30 MG/ML VIAL IVP ×3 (02:22→14:05)
[2025-04-28 06:17] LABS: Hematocrit 24.5 % (36.0-48.0); Hemoglobin 8.3 g/dL (12.0-16.0); Immature Granulocytes Abs Auto 0.04 10^3/uL (0.00-0.03); Immature Granulocytes Pct Auto 0.4 % (0.0-0.5); Lymphocytes Absolute Auto 1.2 10^3/uL (1.2-3.8); Mean Corpuscular HGB Conc 33.9 g/dL (29.9-35.2); Mean Corpuscular Hemoglobin 32.3 pg (26.7-34.0); Mean Corpuscular Volume 95.3 fL (81.0-99.0); Platelet Count 153 10^3/uL (150-450); Red Blood Count 2.57 10^6/uL (4.20-5.40); White Blood Count 9.4 10^3/uL (4.0-11.0)
--- NOTE | 2025-04-28 08:13 | PM.OBPN ---
OB - PN: Subj Subjective Patient comments: no complaints [place] status: doing well [place] feeding status: breast and bottle feeding Exam Constitutional Vital Signs, click to edit/add: Last Vital Signs Temp 98.4 F 04/27/25 23:32 Pulse 58 L 04/27/25 14:20 Resp 16 04/27/25 23:30 BP 104/59 04/27/25 23:32 Pulse Ox 99 04/27/25 18:48 O2 Del Method Room Air 04/27/25 23:30 Common normals: no apparent distress, average body habitus, oriented x3, no limitations, healthy appearing, alert and well nourished General appearance: cooperative Orientation/consciousness: Yes awake, Yes oriented to person, Yes oriented to place and Yes oriented to time HENMT Common normals: normocephalic Face and sinus: normal facial exam Eye Common normals: EOMs intact bilaterally General eye: normal appearance of both eyes Neck & C-Spine Common normals: full ROM and no lymphadenopathy General: normal visual inspection Lymph Lymphatic: no lymphadenopathy noted Chest Common normals: inspection of chest normal Respiratory Common normals: normal respiratory effort Effort & inspection: able to speak in complete sentences Auscultation: clear to auscultation bilaterally Cardio Common normals: regular rate, regular rhythm and no murmurs Rate: regular rate Rhythm: regular rhythm GI Common normals: Normal to inspection, nondistended, normoactive bowel sounds present Inspection: normal to inspection Auscultation: normoactive bowel sounds Palpation: soft Common normals: no CVA tenderness Back & Pelvis Thoracic spine/upper back: normal to inspection Extremity Common normals: normal to inspection Neuro Common normals: oriented x3 Sensorium/orientation: awake, oriented to person, oriented to place and oriented to time Psych Common normals: mental status grossly normal, thought process normal, cooperative, affect normal, speech normal, activity/motor behavior normal, denies hallucinations, denies homicidal ideation and denies suicidal ideation Appearance: grossly normal Attitude: calm Results Labs Labs: Short CBC 04/27/25 04/28/25 Range/Units 10:55 06:11 WBC 6.7 9.4 (4.0-11.0) 10^3/uL Hgb 12.0 8.3 L (12.0-16.0) g/dL Hct 34.9 L 24.5 L (36.0-48.0) % Plt Count 187 153 (150-450) 10^3/uL Urine 04/27/25 Range/Units 12:40 Urine Color Lt. yellow (YELLOW) Urine Clarity Clear (CLEAR) Urine pH 6.5 (5.0-9.0) Ur Specific [place] 1.010 (1.005-1.025) Urine Protein Negative (NEG/TRACE) mg/dL Urine Glucose (UA) Negative (NEGATIVE) mg/dL Urinary Catheter Management Urinary Catheter Management Urethral: Cath placed during this visit: yes, but has since been removed by the nurse Removal date: 04/27/25 Removal time: 23:40 OB - PN: A/P Assessment and Plan (1) Delivery by section: Plan - Plan: routine postop care Time Spent with Patient Time: Total time spent is greater than 50% in coordination of care (as documented) at patient's floor/unit and/or counseling patient: Total time spent with greater than 50% in coordination of care (as documented) at patient's floor/unit and/or counseling patient: less than 15 minutes
[2025-04-28] MEDS: DOCUSATE SODIUM 100 MG CAPSULE PO ×2 (08:49→21:35)
[2025-04-28 09:00] VITALS: O2SAT 99
[2025-04-28 09:11] VITALS: BP 101/46; TEMP 36.6
--- NOTE | 2025-04-28 09:21 | SWNOTE1 ---
SW consulted for THC use and mental health concerns. SW did speak with nursing prior to going to speak with patient. Pt has history of drug use and also recent suicidal thoughts. First baby together with , they both have other children from previous relationships. SW met with pt to discuss concerns. Pt did voiced she is doing alright, not feeling the greatest. She voiced they do have everything they need for baby. She voiced family/friends were very generous in helping out with baby supplies. She voiced they do have good support at home. Nursing came in room as well. Pt voiced she was attempting breast feeding, but does not feel her milk is coming in, but baby is taking bottles and eating well. She voiced it is the first girl, first baby with her . She spoke about the other children they have. She has all boys and so does her , they are all from other relationships. They range in age from 20 to 7 year old. SW did ask about Marijuana use as well. She voiced that she did smoke it here and there for nausea and she voiced she just felt down. She voiced she is now on medication. She voiced she was nervous about starting meds, but thinks it will be good. SW did express that it may take a bit for the medication to start working and to make sure she reaches out to her support system if she feels it is not working, or if she is feeling more down. She did voice they have good support. She spoke about having counseling services online. Unsure of the name, but voiced it is every other week and she can call if there is an emergency. SW did ask her about any suicidal thoughts recently? She voiced she did not, but this has been different for her, not sure if it is because it is a girl. She voiced she was crying a lot recently, but no suicidal thoughts. SE again expressed the importance of support system and making sure she uses counseling, even if it is an emergency. SW did ask her about previous drug use? She voiced she has been clean for a bit and is not on probation anymore. Pt does not plan on continuing Marijuana use now that she is on medication. No medical Marijuana card. SW asked about WIC and she has the number for WIC to call. SW did advise pt that SW is mandated auto service dispatcher and has to call CPS and make report due to THC use. She voiced understanding. SW did express if they do open a case it is to help with resources if needed. No further questions at this time. SW to follow as needed. Report made to [facility] CPS. HIPAA form completed and sent to Holly Garza.
[2025-04-28] MEDS: OXYCODONE HCL/ACETAMINOPHEN 5MG/325MG 1 TAB PO ×2 (12:20→21:35)
[2025-04-28 17:45] VITALS: O2SAT 99
[2025-04-28 17:55] VITALS: BP 123/49; TEMP 36.8
[2025-04-28] MEDS: CITALOPRAM HYDROBROMIDE 20 MG TABLET PO (21:35)
[2025-04-28 23:56] VITALS: BP 123/49; TEMP 37.1
[2025-04-29] MEDS: KETOROLAC TROMETHAMINE 30 MG/ML VIAL IVP ×2 (00:01→06:46)
[2025-04-29] MEDS: ENOXAPARIN SODIUM 40 MG/0.4 ML SYRINGE SUBQ (01:13)
--- NOTE | 2025-04-29 06:59 | P.OBPN_ITS ---
OB - PN: Subj Subjective Patient comments: no complaints and pain well controlled [place] status: doing well Exam Constitutional Vital Signs, click to edit/add: Last Vital Signs Temp 98.7 F 04/28/25 23:56 Pulse 58 L 04/27/25 14:20 Resp 14 04/28/25 23:56 BP 123/49 04/28/25 23:56 Pulse Ox 99 04/28/25 17:45 O2 Del Method Room Air 04/29/25 00:13 Documenting provider has reviewed patient's vital signs: yes Common normals: no apparent distress Respiratory Common normals: clear to auscultation bilaterally Cardio Common normals: regular rate and regular rhythm GI Common normals: Normal to inspection, nondistended, normoactive bowel sounds present Extremity Common normals: no clubbing, cyanosis or edema and no calf tenderness Urinary Catheter Management Urinary Catheter Management Urethral: Cath placed during this visit: yes, but has since been removed by the nurse Removal date: 04/27/25 Removal time: 23:40 OB - PN: A/P Assessment and Plan (1) Delivery by section: (2) Depression affecting : Assessment and Plan: cont celexa Plan - day: 2 Plan: routine postop care, discharge home and other (fu 1wk) Time Spent with Patient Time: Total time spent is greater than 50% in coordination of care (as documented) at patient's floor/unit and/or counseling patient: Total time spent with greater than 50% in coordination of care (as documented) at patient's floor/unit and/or counseling patient: less than 15 minutes
[2025-04-29 08:55] VITALS: TEMP 36.9
[2025-04-29] MEDS: DOCUSATE SODIUM 100 MG CAPSULE PO (08:56)
[2025-04-29] MEDS: ACETAMINOPHEN 500 MG TABLET 1000 MG PO (09:05)
[2025-04-29] MEDS: IBUPROFEN 400 MG TABLET 800 MG PO (12:42)
[2025-04-29] MEDS: OXYCODONE HCL/ACETAMINOPHEN 5MG/325MG 1 TAB PO (15:01)
[2025-04-29 15:04] VITALS: BP 111/53; PULSE 70; TEMP 36.8; O2SAT 100
[2025-05-04 04:07] LABS: Carboxy THC Conf, MS, UR 98 ng/mL (Cutoff=10)
== END 2025-04-29 16:30 | disposition home or self-care (01) | DRG 540 ==
PROVIDERS: Admitting Provider Obstetrics & Gynecology; Visit Provider Obstetrics & Gynecology
PROC: 10D00Z1 Extraction of Products of Conception, Low, Open Approach (ICD-10-PCS; CPT 59514; principal; 2025-04-27 12:15)
DX: O34.211 Maternal care for low transverse scar from previous cesarean delivery (principal); O36.8130 Decreased fetal movements, third trimester, not applicable or unspecified; O99.344 Other mental disorders complicating childbirth; F32.A Depression, unspecified; Z3A.38 38 weeks gestation of pregnancy; Z37.0 Single live birth; O99.324 Drug use complicating childbirth; F12.90 Cannabis use, unspecified, uncomplicated; O99.334 Smoking (tobacco) complicating childbirth; F17.290 Nicotine dependence, other tobacco product, uncomplicated
CPT/HCPCS: 36415; 51702; 76818; 80307; 80349; 81001; 85025; 86850; 86900; 86901; 94667; 94668; G0378; G0379; J0690; J1100; J1650; J1885; J2274; J2371; J2405; J2590; J2765; J3010; J3490

== ENCOUNTER 2025-05-08 21:37 | Emergency (ER) | payer OTHER, SELFPAY ==
[2025-05-08 21:42] VITALS: BP 107/50; PULSE 77; TEMP 36.8; O2SAT 100; BMI 25.7
--- OUTSIDE RECORDS SUMMARY | 2025-05-08 21:43 | XMS_ITS | CCD ---
Author Organization [facility] Care Team Providers Care Radioisotope Production Operator Name Role Phone ROBBIN Garcia Primary Care Provider Dominic Hester Attending Provider Dominic Hester Attending Provider [phone] RADHA [place] Emergency Provider ROBBIN Garcia [...] Unavailable MIR ., DR LAMB Admitting Unavailable FAVINA MORE Consulting Unavailable MIR ., DR LAMB [...] Primary Care Provider Dominic Hester Attending Provider [phone] Mir, DO Dominic Attending Provider NO FAMILY, PHYSICIAN Primary Care Provider Unava ilable DO Dominic Hester Attending Provider Tupa, DO Malcolm Jimenez Emergency Provider [phone] Unavailable Primary Care Provider UnavailNahun Chung Unavailable NO FAMILY, PHYSICIAN Primary Care Provider Unava ilable Fouzia Ale GARCIA Emergency Provider NO FAMILY, PHYSICIAN Primary Care Provider Unava ilable Tupa Malcolm MARLEY Emergency Provider [phone] FouziaAle bernard Attending Unavailable NO FAMILY, PHYSICIAN Primary Care Unavailable Fouzia Ale M Admitting Unavailable Dominic Hester Attending Unavailable NO FAMILY, PHYSICIAN Primary Care Unavailable Dominic Hester Admitting Unavailable TuMalcolm headley Admitting Unavailable TupaMalcolm Attending Unavailable NO FAMILY, PHYSICIAN Primary Care Unavailable Tupa, Malcolm M Admitting Unavailable Malcolm Gaston Attending Unavailable NO FAMILY, PHYSICIAN Primary Care Unavailable MIR, DOMINIC Attending Unavailable HEATHER, NAHUN Attending Unavailable MIR, DOMINIC Attending Unavailable HECTOR STEVE Attending Unavailable HECTOR STEVE Referring Unavailable MIR, DOMINIC Attending Unavailable MIR, DOMINIC Attending Unavailable HEATHER, NAHUN Attending Unavailable MIR, DOMINIC Attending Unavailable HEATHERNAHUN MCLEOD Attending Unavailable MIR, DOMINIC Referring Unavailable MIR, DOMINIC Attending Unavailable MIR, DOMINIC Attending Unavailable POWER, HECTOR Attending Unavailable MIR, DOMINIC Attending Unavailable Medications Current Medications Medication Drug [...] 1 tablet Orally Twice a day Active cephalexin 500 mg oral capsule (11 sources) Cephalosporin Antibacterial Start: 05-04-2025 End: 05-11-2025 take 1 capsule by mouth in the morning, then take 1 capsule by mouth in the evening, then take 1 capsule by mouth at bedtime cephalexin (Keflex) 500 MG capsule Indications: Postoperative visit , S/P section Take 1 capsule (500 mg) by mouth in the morning and 1 capsule (500 mg) in the evening and 1 capsule (500 mg) before bedtime. Do all this for 7 days. 21 capsule 05/04/2025 05/11/2025 Active Start: 08-02-2022 End: 01-03-2023 take 1 capsule by mouth twice daily Cephalexin 500 mg capsule Discontinued 500 MG PO Twice daily 25 07August 02, 2022 12:00am January 03, 2023 2:50pm citalopram 20 mg oral tablet (13 sources) Serotonin Reuptake Inhibitor Start: 04-19-2025 End: 04-19-2026 take 1 tablet by mouth once daily citalopram (CeleXA) 20 MG tablet Indications: Mood changes Take 1 tablet (20 mg) by mouth Daily 30 tablet 11 04/19/2025 04/19/2026 Active ibuprofen 800 mg oral tablet (18 sources) Nonsteroidal Anti-inflammatory Drug Start: 04-29-2025 take 1 tablet by mouth in the morning, then take 1 tablet by mouth in the evening, then take 1 tablet by mouth at bedtime ibuprofen 800 MG tablet Take 800 mg by mouth in the morning and 800 mg in the evening and 800 mg before bedtime. 04/29/2025 Active Start: 02-09-2024 End: 06-29-2024 take 1 tablet [...] 30 doses. 30 tablet 03/12/2023 10/01/2024 Discontinued ofloxacin 3 mg/ml ophthalmic solution (1 source) Quinolone Antimicrobial Start: 04-07-2023 Ofloxacin 0.3 % 10 drops into right ear Otic Once a day for 7 days Apr, Active ondansetron 4 mg disintegrating oral tablet (20 sources) Serotonin-3 Receptor Antagonist Start: 09-09-2024 End: 06-03-2025 take 1 tablet by mouth every six hours for nausea ondansetron ODT (Zofran-ODT) 4 MG disintegrating tablet Indications: confirmed by positive blood test ([facility]) , Nausea Take 1 tablet (4 mg) by mouth every 6 (six) hours if needed for nausea or vomiting for up to 30 doses 30 tablet 2 09/09/2024 Active polysaccharide iron complex 391 mg oral capsule (20 sources) Start: 02-21-2025 End: 02-21-2026 take 1 capsule by mouth once daily iron polysaccharides (ProFe) 391.3 (180 Fe) MG capsule Indications: Low iron Take 1 capsule (391.3 mg) by mouth Daily 30 capsule 11 02/21/2025 02/21/2026 Active Vit No.124-Vlef-Qztlj ( Vitamin) 27 mg iron- 800 mcg tablet (7 sources) Start: 01-03-2023 take 1 tablet by mouth once daily Vit No.909-Scwa-Khegz ( Vitamin) 27 mg iron- 800 mcg tablet Active 1 TAB PO Daily January 03, 2023 12:00am Start: 01-03-2023 Vit N o.602-Cxcb-Vbvdr ( Vitamin) 27 mg iron- 800 mcg tablet Active TAB TABLET January 02, 2023 11:00pm Start: 01-03-2023 Vit N o.458-Iacj-Lwcyr ( Vitamin) 27 mg iron- 800 mcg tablet Active TAB TABLET January 03, 2023 12:00am Vit-Fe Fumarate-FA ( Vitamins) 28-0.8 MG tablet (20 sources) Start: 09-09-2024 End: 09-09-2025 take 1 tablet by mouth once daily Vit-Fe Fumarate-FA ( Vitamins) 28-0.8 MG tablet Indications: confirmed by positive blood test ([facility]) Take 1 tablet by mouth Daily 30 [...] hours as needed for pain Hydrocodone-Acetami nophen ([place]) 5-325 mg tablet Discontinued 1 TAB PO EVERY 4-6 HOURS as needed for pain 09 07May 14, 2019 June 09, 2019 9:24pm Start: 06-25-2017 End: 01-31-2018 take 1 tablet by mouth every four to six hours as needed for pain Hydrocodone-Acetaminophen ([place]) 5-325 mg tablet Discontinued 1 TAB PO EVERY 4-6 HOURS as needed for pain June 25, 2017 January 31, 2018 4:07pm [id number] 200 actuat albuterol 0.09 mg/actuat metered dose [...] 12:00am December 18, 2019 10:37am with spacer azithromycin 250 mg oral tablet (2 sources) Macrolide Antimicrobial Start: 05-04-2025 End: 05-04-2025 take 1 tablet by mouth once daily azithromycin (Zithromax) 250 MG tablet Indications: Sinusitis, unspecified chronicity, unspecified location Take 1 tablet (250 mg) by mouth Daily for 5 days 6 tablet 05/04/2025 05/04/2025 Discontinued (Entered in error) dicyclomine hydrochloride 20 mg oral tablet (18 sources) Anticholinergic Start: 06-21-2021 End: 01-05-2022 take 1 tablet by mouth three times daily as needed for pain Dicyclomine 20 mg tablet Discontinued 20 MG PO Three times daily as needed for pain June 21, 2021 12:00January 05, 2022 5:44pm Start: 08-02-2019 End: 09-16-2019 [...] 2022 5:44pm meloxicam 15 mg oral tablet (9 sources) [...] tablet Discontinued 1 TAB PO Twice daily 18 04June 21, 2021 12:00am January 05, 2022 5:44pm [...] Onset: 01-06-2023 Other aftercare (1 source) Other bed bug exterminator (current) drug therapy; Translations: [OTH TUNGSTEN TENDER CURRENT DRUG THERAPY] Onset: 01-06-2023 Episodic Other aftercare (2 sources) Postoperative visit; Translations: [Encounter for other specified surgical aftercare] 05-04-2025 Episodic Other complications of (7 sources) Non-viable [...] 01-31-2018 Episodic Other and delivery including normal (20 sources) Encounter for supervision of normal , unspecified, first trimester; Translations: [] Onset: 12-29-2022 Resolved: 04-27-2025 10-01-2024 Episodic Other screening for suspected conditions (not mental disorders or infectious disease) (6 sources) Patient encounter status; Translations: [Encounter for other specified screening] 11-30-2024 Episodic Other upper respiratory infections (2 sources) Sinusitis; Translations: [Chronic sinusitis, unspecified] 05-04-2025 Chronic Otitis media and related conditions (1 source) [...] [34 weeks gestation of ] 04-06-2025 Episodic Residual codes; unclassified (2 sources) Gestation period, 37 weeks; Translations: [37 weeks gestation of ] 04-26-2025 Episodic Skin and subcutaneous tissue infections (8 [...] UNS DPTH] Onset: 07-31-2022 Urinary tract infections (11 sources) Urinary tract infectious disease; Translations: [Urinary [...] LUMP] Onset: 07-31-2022 Episodic Other skin disorders (20 sources) Scar of skin; Translations: [Scar conditions and fibrosis of skin] Onset: 03-11-2023 03-11-2023 Episodic Residual codes; unclassified (20 sources) Gestation period, 20 weeks; Translations: [20 weeks gestation of ] Onset: 12-28-2024 Resolved: 04-27-2025 12-28-2024 Episodic Results Test Name Value Interpretation Reference Range Facility No Panel Informationon 05-06 STAPHYLOCOCCUS EPIDERMIDIS, HAEMOLYTICUS, LUGDUNENSIS, SAPROPHYTICUS (URINA 0 [facility] STAPHYLOCOCCUS EPIDERMIDIS, HAEMOLYTICUS, LUGDUNENSIS, SAPROPHYTICUS (URINA Not detected [facility] URINARY TRACT INFECTION (HTR X)on 05-06-2025 ACINETOBACTER BAUMANII 0 [facility] ACINETOBACTER BAUMANII Not detected [facility] TIGIST ALBICANS, PARAPSILOSIS, TROPICALIS 0 [facility] TIGIST ALBICANS, PARAPSILOSIS, TROPICALIS Not detected [facility] TIGIST GLABRATA 0 [facility] T[facility]IST GLABRATA Not detected [facility] TIGIST KRUSEI 0 [facility]IST KRUSEI Not detected [facility] CITROBACTER FREUNDII 0 [facility] FREUNDII Not detected [facility] ENTEROBACTER AEROGENES, CLOACAE 0 [facility] ENTEROBACTER AEROGENES, CLOACAE Not detected [facility] ENTEROCOCCUS FAECALIS, FAECIUM 0 [facility] ENTEROCOCCUS FAECALIS, FAECIUM Not detected [facility] ESCHERICHIA COLI 0 [facility] ESCHERICHIA COLI Not detected [facility] KLEBSIELLA PNEUMONIAE, OXYTOCA 0 [facility] KLEBSIELLA PNEUMONIAE, OXYTOCA Not detected [facility] MORGANELLA MORGANII 0 [facility] MORGANELLA MORGANII Not detected [facility] PROTEUS MIRABILIS, VULGARIS 0 [facility] PROTEUS MIRABILIS, VULGARIS Not detected [facility] PSEUDOMONAS AERUGINOSA 0 [facility] PSEUDOMONAS AERUGINOSA Not detected [facility] SERRATIA MARCESCENS 0 [facility] SERRATIA MARCESCENS Not detected [facility] STAPHYLOCOCCUS AUREUS 0 [facility] STAPHYLOCOCCUS AUREUS Not detected [facility] STREPTOCOCCUS AGALACTIAE (GROUP B STREP) 0 [facility] STREPTOCOCCUS AGALACTIAE (GROUP B STREP) Not detected [facility] STREPTOCOCCUS PYOGENES (GROUP A STREP) 0 [facility] STREPTOCOCCUS PYOGENES (GROUP A STREP) Not detected [facility] Urinalysis macro (dipstick) panel (U)on 05-04-2025 Bilirubin, UA Negative Negative - 4(70) +++ mg/dL [facility] Blood, UA Positive Negative - 50 Brent/mcL [facility] Clarity, UA Cloudy [facility] Color, UA Red [facility] Glucose, UA Negative Negative - 2000(110) ++++ mg/dL [facility] Interpretation and review of laboratory results Abnormal [facility] Ketones, UA Negative Negative - 160(16) ++++ mg/dL [facility] Leukocytes, UA 3+ Negative - 500+++ Kae/mcL [facility] Nitrite, UA Negative Negative - Positive [facility] pH, UA 6 5 - 9 [facility] Protein, UA 1+ Negative - 1999(20) ++++ mg/dL [facility] Spec Grav, UA 1.025 1 - 1.03 [facility] Urobilinogen, UA 4.0 0.2 - 12 mg/dL [facility] ALL CBC WITH AUTO DIFFon BASOPHILS ABSOLUTE AUTO 0 [facility] Basophils/100 WBC (Bld) 0.3 % 0.2 - 2.0 % [facility] Eosinophils/100 WBC (Bld) 0.5 % Low 0.9 - 7.0 % [facility] Erythrocyte distribution width (RBC) [Ratio] 14.3 % 11.0 - 15.0 % [facility] Hematocrit (Bld) [Volume fraction] 24.5 % Low 36.0 - 48.0 % [facility] Hemoglobin (Bld) [Mass/Vol] 8.3 g/dL Low 12.0 - 16.0 g/dL [facility] IMMATURE GRANULOCYTES ABS AUTO 0.04 High [facility] Immature granulocytes/100 WBC (Bld) 0.4 % 0.0 - 0.5 % [facility] Interpretation and review of laboratory results Abnormal [facility] LYMPHOCYTES ABSOLUTE AUTO 1.2 [facility] Lymphocytes/100 WBC (Bld) 12.9 % Low 20.5 - 60.0 % [facility] MCH (RBC) [Entitic mass] 32.3 pg 26.7 - 34.0 pg [facility] MCHC (RBC) [Mass/Vol] 33.9 g/dL 29.9 - 35.2 g/dL [facility] MCV (RBC) [Entitic vol] 95.3 fL 81.0 - 99.0 fL [facility] MONOCYTES ABSOLUTE AUTO 0.8 [facility] Monocytes/100 WBC (Bld) 8.9 % 1.7 - 12.0 % [facility] NEUTROPHILS ABSOLUTE AUTO 7.2 High [facility] Neutrophils/100 WBC (Bld) 77 % High 43.0 - 75.0 % [facility] Platelet mean volume (Bld) [Entitic vol] 10.1 fL 9.5 - 13.5 fL [facility] TBH EO # 0.1 [facility] TB PLT 153 [facility] TB RBC 2.57 Low [facility] TB WBC 9.4 [facility] ALL CBC WITH AUTO DIFFon BASOPHILS ABSOLUTE AUTO 0 [facility] Basophils/100 WBC (Bld) 0.3 % 0.2 - 2.0 % [facility] Eosin[facility]/100 WBC (Bld) 3.3 % 0.9 - 7.0 % [facility] Erythrocyte distribution width (RBC) [Ratio] 14.3 % 11.0 - 15.0 % [facility] Hematocrit (Bld) [Volume fraction] 34.9 % Low 36.0 - 48.0 % [facility] Hemoglobin (Bld) [Mass/Vol] 12 g/dL 12.0 - 16.0 g/dL [facility] IMMATURE GRANULOCYTES ABS AUTO 0.04 High [facility] Immature granulocytes/100 WBC (Bld) 0.6 % High 0.0 - 0.5 % [facility] Interpretation and review of laboratory results Abnormal [facility] LYMPHOCYTES ABSOLUTE AUTO 1 Low [facility] Lymphocytes/100 WBC (Bld) 15 % Low 20.5 - 60.0 % [facility] MCH (RBC) [Entitic mass] 32.5 pg 26.7 - 34.0 pg [facility] MCHC (RBC) [Mass/Vol] 34.4 g/dL 29.9 - 35.2 g/dL [facility] MCV (RBC) [Entitic vol] 94.6 fL 81.0 - 99.0 fL [facility] MONOCYTES ABSOLUTE AUTO 0.6 [facility] Monocytes/100 WBC (Bld) 8.2 % 1.7 - 12.0 % [facility] NEUTROPHILS ABSOLUTE AUTO 4.8 [facility] Neutrophils/100 WBC (Bld) 72.6 % 43.0 - 75.0 % [facility] Platelet mean volume (Bld) [Entitic vol] 10.9 fL 9.5 - 13.5 fL [facility] TBH EO # 0.2 [facility] TBH PLT 187 [facility] TB RBC 3.69 Low [facility] TBH WBC 6.7 [facility] US OB BPP W NON-STRESS on 04-26-[address] [address] Ultrasound Report Signed Patient: BREANA CASAS MR#: [id number] : 1990 Acct:[id number] Age/Sex: 34 / F ADM Date: Loc: [facility] Attending Dr: Dominic Hester D.O. Ordering Physician: Dominic Hester D.O. Date of Service: 04/26/25 Procedure(s): US OB BPP w non-stress Accession Number(s): [id number] cc: Dominic Hester D.O.; Physician,Non-Staff MPaula [place] [id number] Patient Name: BREANA CASAS MRN: [facility]:[id number] date: 1990 Sex: F Assigned Patient Location: [facility] Current Patient Location: Accession/Order Number: [id number] Exam Date: 04/26/2025 13:20 Report Date: 04/26/2025 13:21 At the request of: DOMINIC HESTER DO Procedure: US OB BPP w non-stress Biophysical profile. Reason for exam: Decreased movements COMPARISON: BPP 04/20/2025 TECHNIQUE: Transabdominal imaging of the gravid uterus was obtained. FINDINGS: The steward racetrack reports a BPP of 8 out of 8. TAMIR is normal at 13.4 cm. heart rate 161 bpm. US/US OB BPP w non-stress IMPRESSION: BPP 8 out of 8. Impression dictated by: Seferino Tay Jr., D.O. 04/26/2025 1:21 PM Dictation Location: [place] [address] Electronically authenticated by: [id number] Y Date: 04/26/2025 13:21 Dictated By: Seferino Tay M.D. Signed By: 04/26/25 1323 DD/ 1321 TD/TT: Dermatologist And Dermatopathologist: [facility] Radiology, Radiologist, MD - 04/26/2025 [place] [address] Ultrasound Report Signed Patient: BREANA CASAS MR#: [id number] : 1990 Acct:[id number] Age/Sex: 34 / F ADM Date: Loc: [facility] Attending Dr: Dominic Hester D.O. Ordering Physician: Dominic Hester D.O. Date of Service: 04/26/25 Procedure(s): US OB BPP w non-stress Accession Number(s): [id number] cc: Dominic Hester D.O.; Physician,Non-Staff [place] [id number] Patient Name: BREANA CASAS MRN: [facility]:[id number] date: 1990 Sex: F Assigned Patient Location: [facility] Current Patient Location: Accession/Order Number: [id number] Exam Date: 04/26/2025 13:20 Report Date: 04/26/2025 13:21 At the request of: DOMINIC HESTER DO Procedure: US OB BPP w non-stress Biophysical profile. Reason for exam: Decreased movements COMPARISON: BPP 04/20/2025 TECHNIQUE: Transabdominal imaging of the gravid uterus was obtained. FINDINGS: The steward racetrack reports a BPP of 8 out of 8. TAMIR is normal at 13.4 cm. heart rate 161 bpm. US/US OB BPP w non-stress IMPRESSION: BPP 8 out of 8. Impression dictated by: Seferino Tay Jr., D.O. 04/26/2025 1:21 PM Dictation Location: [place] [address] Electronically authenticated by: [id number] Y Date: 04/26/2025 13:21 Dictated By: Seferino Tay M.D. Signed By: 04/26/25 1323 DD/ 1321 TD/TT: Dermatologist And Dermatopathologist: [facility] Radiology Study observation (narrative) [facility] US OB BPP W NON-STRESS Ordered By: Radiologist Radiology on 04-26-2025 [facility] Work Phone: Urinalysis macro (dipstick) panel (U)on 04-26-2025 Bilirubin, UA Negative Negative - 4(70) +++ mg/dL [facility] Blood, UA Negative Negative - 50 Brent/mcL [facility] Clarity, UA Clear [facility] Color, UA Yellow [facility] Glucose, UA Negative Negative - 1999(110) ++++ mg/dL [facility] Interpretation and review of laboratory results Abnormal [facility] Ketones, UA Negative Negative - 160(16) ++++ mg/dL [facility] Leukocytes, UA Moderate Negative - 500+++ Kae/mcL [facility] Nitrite, UA Negative Negative - Positive [facility] pH, UA 7 5 - 9 [facility] Protein, UA Negative Negative - 1999(20) ++++ mg/dL [facility] Spec Grav, UA 1.015 1 - 1.03 [facility] Urobilinogen, UA 0.2 0.2 - 12 mg/dL [facility] US OB BPP W NON-STRESS on 04-21-2025 [place] [address] Ultrasound Report Signed Patient: BREANA CASAS MR#: [id number] : 1990 Acct:[id number] Age/Sex: 34 / F ADM Date: 04/20/25 Loc: US Attending Dr: Nahun Romero Ordering Physician: Nahun Romero Date of Service: 04/20/25 Procedure(s): US OB BPP w non-stress Accession Number(s): [id number] cc: Nahun Romero; Physician,Non-Staff M.DSarah [place] [id number] Patient Name: BREANA CASAS MRN: [facility]:[id number] date: 1990 Sex: F Assigned Patient Location: Current Patient Location: Accession/Order Number: [id number] Exam Date: 04/21/2025 08:12 Report Date: 04/21/2025 [...] Mckeon M.D. 04/21/2025 8:14 AM Dictation Location: [place] [address] Electronically authenticated by: [id number] Y Date: 04/21/2025 08:14 Dictated By: Christine Mckeon M.D. Signed By: 04/21/25816 DD/ 3 TD/TT: Dermatologist And Dermatopathologist: [facility] Radiology, Radiologist, MD - 04/21/2025 [place] [address] Ultrasound Report Signed Patient: BREANA CASAS MR#: [id number] : 1990 Acct:[id number] Age/Sex: 34 / F ADM Date: 04/20/25 Loc: US Attending Dr: Nahun Romero Ordering Physician: Nahun Romero Date of Service: 04/20/25 Procedure(s): US OB BPP w non-stress Accession Number(s): [id number] cc: Nahun Romero; Physician,Non-Staff [place] The [address] [address] Patient Name: BREANA CASAS MRN: [facility]:[id number] date: 1990 Sex: F Assigned Patient Location: US Current Patient Location: Accession/Order Number: [id number] Exam Date: 04/21/2025 08:12 Report Date: 04/21/2025 [...] This is in normal range. Total score: 8/ US/US OB BPP w non-stress IMPRESSION: NORMAL BIOPHYSICAL PROFILE. NUCHAL CORD. Impression dictated by: Christine Mckeon M.D. 04/21/2025 8:14 AM Dictation Location: [place] [address] Electronically authenticated by: [id number] Y Date: 04/21/2025 08:14 Dictated By: Christine Mckeon M.D. Signed By: 04/21/25816 DD/ 3 TD/TT: Dermatologist And Dermatopathologist: [facility] Radiology Study observation (narrative) [facility] US OB BPP W NON-STRESS Ordered By: Radiologist Radiology on 04-21-2025 [facility] Work Phone: US OB BPP W NON-STRESS on 04-13-[address] [address] Ultrasound Report Signed Patient: BREANA CASAS MR#: [id number] : 1990 Acct:[id number] Age/Sex: 34 / F ADM Date: Loc: US Attending Dr: Nahun Romero Ordering Physician: Nahun Romero Date of Service: 04/13/25 Procedure(s): US OB BPP w non-stress Accession Number(s): [id number] cc: Nahun Romero; Physician,Non-Staff MPaula The [address] [address] Patient Name: BREANA CASAS MRN: [facility]:[id number] date: 1990 Sex: F Assigned Patient Location: US Current Patient Location: [facility] Accession/Order Number: [id number] Exam Date: 04/13/2025 16:16 Report Date: 04/13/2025 [...] Burleson M.D. 04/13/2025 4:17 PM Dictation Location: [place] [address] Electronically authenticated by: [id number] Y Date: 04/13/2025 16:17 Dictated By: Tanner Burleson D.O. Signed By: 04/13/25 1619 DD/ TD/TT: Dermatologist And Dermatopathologist: [facility] Radiology, Radiologist, MD - 04/13/2025 [place] [address] Ultrasound Report Signed Patient: BREANA CASAS MR#: [id number] : 1990 Acct:[id number] Age/Sex: 34 / F ADM Date: Loc: US Attending Dr: Nahun Romero Ordering Physician: Nahun Romero Date of Service: 04/13/25 Procedure(s): US OB BPP w non-stress Accession Number(s): [id number] cc: Nahun Romero; Physician,Non-Staff [place] The [address] [address] Patient Name: BREANA CASAS MRN: [facility]:[id number] date: 1990 Sex: F Assigned Patient Location: US Current Patient Location: [facility] Accession/Order Number: [id number] Exam Date: 04/13/2025 16:16 Report Date: 04/13/2025 [...] Burleson M.D. 04/13/2025 4:17 PM Dictation Location: [employer] Electronically authenticated by: [id number] Y Date: 04/13/2025 16:17 Dictated By: Tanner Burleson D.O. Signed By: 04/13/251618 DD/ 16 TD/TT: Dermatologist And Dermatopathologist: [facility] Radiology Study observation (narrative) [facility] US OB BPP W NON-STRESS Ordered By: Radiologist Radiology on 04-13-2025 [facility] Work Phone: US OB GROWTHon 04-06-2025 [place] [address] Ultrasound Report Signed Patient: BREAAN CASAS MR#: [id number] : 1990 Acct:[id number] Age/Sex: 34 / F ADM Date: 04/06/25 Loc: US Attending Dr: Dominic Hester D.O. Ordering Physician: Dominic Hester D.O. Date of Service: 04/06/25 Procedure(s): US OB growth Accession Number(s): [id number] cc: Dominic Hester D.O.; Physician,Non-Staff MPaula [address] [address] Patient Name: BREANA CASAS MRN: [id number] date: 1990 Sex: F Assigned Patient Location: US Current Patient Location: US Accession/Order Number: [id number] Exam Date: 04/06/2025 14:46 Report Date: 04/06/2025 [...] Jr., D.O. 04/06/2025 2:48 PM Dictation Location: [place] [address] Electronically authenticated by: [id number] Y Date: 04/06/2025 14:48 Dictated By: Seferino Tay M.D. Signed By: 04/06/25 1451 DD/ 1448 TD/TT: Dermatologist And Dermatopathologist: [facility] Radiology, Radiologist, MD - 04/06/2025 [place] [address] Ultrasound Report Signed Patient: BREANA CASAS MR#: [id number] : 1990 Acct:[id number] Age/Sex: 34 / F ADM Date: 04/06/25 Loc: US Attending Dr: Dominic Hester D.O. Ordering Physician: Dominic Hester D.O. Date of Service: 04/06/25 Procedure(s): US OB growth Accession Number(s): [id number] cc: Dominic Hester D.O.; Physician,Non-Staff [place] [facility] [address] [address] Patient Name: BREANA CASAS MRN: [facility]:[id number] date: 1990 Sex: F Assigned Patient Location: [place] Current Patient Location: [place] Accession/Order Number: [id number] Exam Date: 04/06/2025 14:46 Report Date: 04/06/2025 [...] Jr., D.O. 04/06/2025 2:48 PM Dictation Location: [place] [address] Electronically authenticated by: [id number] Y Date: 04/06/2025 14:48 Dictated By: Seferino Tay M.D. Signed By: 04/06/25 1451 DD/ 1448 TD/TT: Dermatologist And Dermatopathologist: [facility] Radiology Study observation (narrative) [facility] US OB GROWTHOrdered By: Shane ologvicente Radiology on 04-06-2025 [facility] Work Phone: Urinalysis macro (dipstick) panel (U)on 04-06-2025 Bilirubin, UA Negative Negative - 4(70) +++ mg/dL [facility] Blood, UA Negative Negative - 50 Brent/mcL [facility] Clarity, UA Clear [facility] Color, UA Yellow [facility] Glucose, UA Negative Negative - 1999(110) ++++ mg/dL [facility] Interpretation and review of laboratory results Normal [facility] Ketones, UA Negative Negative - 160(16) ++++ mg/dL [facility] Leukocytes, UA Positive Negative - 500+++ Kae/mcL [facility] Comment on above: small Nitrite, UA Negative Negative - Positive [facility] pH, UA 7 5 - 9 [facility] Protein, UA Negative Negative - 1999(20) ++++ mg/dL [facility] Spec Grav, UA 1.005 1 - 1.03 [facility] Urobilinogen, UA 0.2 0.2 - 12 mg/dL [facility] Urinalysis macro (dipstick) panel (U)on 03-23-2025 Bilirubin, UA Negative Negative - 4(70) +++ mg/dL [facility] Blood, UA Negative Negative - 50 Brent/mcL [facility] Clarity, UA Clear [facility] Color, UA Yellow [facility] Glucose, UA Negative Negative - 1999(110) ++++ mg/dL [facility] Interpretation and review of laboratory results Normal [facility] Ketones, UA Positive Negative - 160(16) ++++ mg/dL [facility] Comment on above: 15 Leukocytes, UA Negative Negative - 500+++ Kae/mcL [facility] Nitrite, UA Negative Negative - Positive [facility] pH, UA 7 5 - 9 [facility] Protein, UA Negative Negative - 1999(20) ++++ mg/dL [facility] Spec Grav, UA 1.015 1 - 1.03 [facility] Urobilinogen, UA 0.2 0.2 - 12 mg/dL [facility] Urinalysis macro (dipstick) panel (U)on 03-09-2025 Bilirubin, UA Negative Negative - 4(70) +++ mg/dL [facility] Blood, UA Negative Negative - 50 Brent/mcL [facility] Clarity, UA Clear [facility] Color, UA Yellow [facility] Glucose, UA Negative Negative - 1999(110) ++++ mg/dL [facility] Interpretation and review of laboratory results Abnormal [facility] Ketones, UA Negative Negative - 160(16) ++++ mg/dL [facility] Leukocytes, UA Positive Negative - 500+++ Kae/mcL [facility] Comment on above: small Nitrite, UA Negative Negative - Positive [facility] pH, UA 7 5 - 9 [facility] Protein, UA Negative Negative - 1999(20) ++++ mg/dL [facility] Spec Grav, UA 1.015 1 - 1.03 [facility] Urobilinogen, UA 0.2 0.2 - 12 mg/dL [facility] Urinalysis macro (dipstick) panel (U)on 02-23-2025 Bilirubin, UA Negative Negative - 4(70) +++ mg/dL [facility] Blood, UA Negative Negative - 50 Brent/mcL [facility] Clarity, UA Clear [facility] Color, UA Yellow [facility] Glucose, UA Negative Negative - 1999(110) ++++ mg/dL [facility] Interpretation and review of laboratory results Normal [facility] Ketones, UA Negative Negative - 160(16) ++++ mg/dL [facility] Leukocytes, UA Negative Negative - 500+++ Kae/mcL [facility] Nitrite, UA Negative Negative - Positive [facility] pH, UA 6.5 5 - 9 [facility] Protein, UA Negative Negative - 2000(20) ++++ mg/dL [facility] Spec Grav, UA 1.01 1 - 1.03 [facility] Urobilinogen, UA 0.2 0.2 - 12 mg/dL [facility] ALL CBC WITH AUTO DIFFon BASOPHILS ABSOLUTE AUTO 0 [facility] Basophils/100 WBC (Bld) 0.2 % 0.2 - 2.0 % [facility] Eosinophils/100 WBC (Bld) 2.8 % 0.9 - 7.0 % [facility] Erythrocyte distribution width (RBC) [Ratio] 12.9 % 11.0 - 15.0 % [facility] Hematocrit (Bld) [Volume fraction] 30.5 % Low 36.0 - 48.0 % [facility] Hemoglobin (Bld) [Mass/Vol] 10.5 g/dL Low 12.0 - 16.0 g/dL [facility] IMMATURE GRANULOCYTES ABS AUTO 0.02 [facility] Immature granulocytes/100 WBC (Bld) 0.3 % 0.0 - 0.5 % [facility] Interpretation and review of laboratory results Abnormal [facility] LYMPHOCYTES ABSOLUTE AUTO 0.9 Low [facility] Lymphocytes/100 WBC (Bld) 15.7 % Low 20.5 - 60.0 % [facility] MCH (RBC) [Entitic mass] 33.2 pg 26.7 - 34.0 pg [facility] MCHC (RBC) [Mass/Vol] 34.4 g/dL 29.9 - 35.2 g/dL [facility] MCV (RBC) [Entitic vol] 96.5 fL 81.0 - 99.0 fL [facility] MONOCYTES ABSOLUTE AUTO 0.4 [facility] Monocytes/100 WBC (Bld) 7.7 % 1.7 - 12.0 % [facility] NEUTROPHILS ABSOLUTE AUTO 4.2 [facility] Neutrophils/100 WBC (Bld) 73.3 % 43.0 - 75.0 % [facility] Platelet mean volume (Bld) [Entitic vol] 9.6 fL 9.5 - 13.5 fL [facility] EO # 0.2 [facility] PLT 167 [facility] RBC 3.16 Low [facility] WBC 5.7 [facility] US OB LIMITED 1+ FETUSESon 0 02-17-2025 [...] II, MD, PHD at 18-Feb-2025 10:23:07 AM [facility] Normal Not Available Comment on above: Order Comment: US OB INCOMPLETE ANATOMY Estimated Date of Delivery: 05/12/25 Gestational Age as of 01/31/2025: 25w4d Alanine aminotransferase [En zymatic activity/volume] in Serum or PlasmaOrdered By: Malcolm Gaston on 02-10-2025 ALT [Catalytic activity/Vol] Alanine aminotransferase [Enzymatic activity/volume] in Serum or Plasma [facility] Albumin [Mass/volume] in Ser um or Plasma by Bromocresol green (BCG) dye binding methoOrdered By: Malcolm Gaston on 02-10-2025 Albumin BCG dye [Mass/Vol] Albumin [Mass/volume] in Serum or Plasma by Bromocresol green (BCG) dye binding metho 3.5-5.7 [facility] Alkaline phosphatase [Enzyma tic activity/volume] in Serum or PlasmaOrdered By: Malcolm Ballesterosfang on 02-10-2025 ALP [Catalytic activity/Vol] Alkaline phosphatase [Enzymatic activity/volume] in Serum or Plasma 34-104 [facility] Appearance of UrineOrdered B y: Malcolm Ballesterosfang on 02-10-2025 Appearance (U) Urine appearance Clear [facility] Aspartate aminotransferase [ Enzymatic activity/volume] in Serum or PlasmaOrdered By: Malcolm Marilin on 02-10-2025 AST [Catalytic activity/Vol] Aspartate aminotransferase [Enzymatic activity/volume] in Serum or Plasma 13-39 [facility] Basic Metabolic Panelon 05 Anion gap [Moles/Vol] 7.9 mmol/L Normal 6.0-15.0 [facility] Comment on above: Performed By: #### C BC, HEPATIC, BMP, LIPASE #### [facility] [address] Calcium [Mass/Vol] 8.4 mg/dL Low 8.6-10.3 [facility] Comment on above: Performed By: #### C BC, HEPATIC, BMP, LIPASE #### [facility] [address] [place] [id number] [place] Chloride [Moles/Vol] 107 mmol/L Normal 98-107 [facility] Comment on above: Performed By: #### C BC, HEPATIC, BMP, LIPASE #### [facility] [address] [place] [id number] [place] CO2 [Moles/Vol] 24.8 mmol/L Normal 21.0-31.0 The [facility] Comment on above: Performed By: #### C BC, HEPATIC, BMP, LIPASE #### [facility] [address] [place] [id number] [place] Creatinine [Mass/Vol] 0.56 mg/dL Low 0.60-1.20 [facility] Comment on above: Performed By: #### C BC, HEPATIC, BMP, LIPASE #### [facility] [address] [place] [phone] [place] Creatinine Clr Calc Pharmacy 136.70 Normal [facility] Comment on above: Performed By: #### C BC, HEPATIC, BMP, LIPASE #### [facility] [address] [place] [address] [place] GFR/1.73 sq M.predicted MDRD (S/P/Bld) [Vol rate/Area] mL/min/{1.73_m2} Normal [facility] Comment on above: Performed By: #### C BC, HEPATIC, BMP, LIPASE #### [address] Glucose [Mass/Vol] 75 mg/dL Normal 70-100 [facility] Comment on above: Result Comment: [facility] Glucose Reference Range is dependent on time and content of last meal. Glucose of more than 200 mg/dL in a nonstressed, ambulatory subject supports the diagnosis of Diabetes Mellitus. ADA recommended reference range Performed By: #### C BC, HEPATIC, BMP, LIPASE #### [address] Potassium [Moles/Vol] 3.7 mmol/L Normal 3.5-5.1 [facility] Comment on above: Performed By: #### C BC, HEPATIC, BMP, LIPASE #### [address] Sodium [Moles/Vol] 136 mmol/L Normal 136-145 [facility] Comment on above: Performed By: #### C BC, HEPATIC, BMP, LIPASE #### [address] Urea nitrogen [Mass/Vol] 6 mg/dL Low 7-25 [facility] Comment on above: Performed By: #### C BC, HEPATIC, BMP, LIPASE #### [place] [address] [place] Basophils Auto (Bld) [#/Vol] Ordered By: Malcolm Gaston on 02-10-2025 Basophils (Bld) [#/Vol] Automated basoph il count 0.0-0.2 [facility] Basophils/100 WBC Auto (Bld) Ordered By: Malcolm Gaston on 02-10-2025 Basophils/100 WBC (Bld) Automated basophil % . [facility] Bilirubin Test strip Ql (U)O rdered By: Malcolm Gaston on 02-10-2025 Bilirubin Ql (U) Bilirubin.total [Presence] in Urine by Test strip Negative [facility] Bilirubin.direct [Mass/volum e] in Serum or PlasmaOrdered By: Malcolm Gaston on 02-10-2025 Bilirubin.direct [Mass/Vol] Bilirubin.direct [Mass/volume] in Serum or Plasma 0.03-0.18 [facility] Bilirubin.total [Mass/volume ] in Serum or PlasmaOrdered By: Malcolm Gaston on 02-10-2025 Bilirubin [Mass/Vol] Bilirubin.total [Mass/volume] in Serum or Plasma 0.3-1.0 [facility] Calcium [Mass/volume] in Ser um or PlasmaOrdered By: Malcolm Gaston on 02-10-2025 Calcium [Mass/Vol] Calcium [Mass/volume] in Serum or Plasma Low 8.6-10.3 [facility] Carbon dioxide, total [Moles /volume] in Serum or PlasmaOrdered By: Malcolm Gaston on 02-10-2025 CO2 [Moles/Vol] Carbon dioxide, total [Moles/volume] in Serum or Plasma 21.0-31.0 [facility] Chloride [Moles/volume] in S mehdi or PlasmaOrdered By: Malcolm Gaston on 02-10-2025 Chloride [Moles/Vol] Chloride [Moles/volume] in Serum or Plasma 98-107 [facility] Color Auto (U)Ordered By: Fang Gaston on 02-10-2025 Color (U) Color of Urine by Auto Yellow [facility] Complete Blood Count Auto Di ffon 02-10-2025 Basophils (Bld) [#/Vol] 0.0 10*3/uL Normal 0.0-0.2 [facility] Comment on above: Result Comment: PERF ORMED BY: [facility] [address] [place] [address] PATHOLOGIST GAS ATTENDANT BRANDI GONZALEZ M.D. Performed By: #### C BC, HEPATIC, BMP, LIPASE #### [address] Basophils/100 WBC (Bld) 0.5 % Normal . T he [facility] Comment on above: Performed By: #### C BC, HEPATIC, BMP, LIPASE #### [address] Eosinophils (Bld) [#/Vol] 0.2 10*3/uL Normal 0.0-0.45 [facility] Comment on above: Performed By: #### C BC, HEPATIC, BMP, LIPASE #### [address] Eosinophils/100 WBC (Bld) 3.8 % Normal . [facility] Comment on above: Performed By: #### C BC, HEPATIC, BMP, LIPASE #### [address] Erythrocyte distribution width (RBC) [Ratio] 13.1 % Normal 11.9-15.3 [facility] Comment on above: Performed By: #### C BC, HEPATIC, BMP, LIPASE #### [address] Hematocrit (Bld) [Volume fraction] 32.0 % Low 34.0-46.4 [facility] Comment on above: Performed By: #### C BC, HEPATIC, BMP, LIPASE #### [address] Hemoglobin (Bld) [Mass/Vol] 11.3 g/dL Low 11.8-15.4 [facility] Comment on above: Performed By: #### C BC, HEPATIC, BMP, LIPASE #### [address] Lymphocytes (Bld) [#/Vol] 0.9 10*3/uL Low 1.00-4.8 [facility] Comment on above: Performed By: #### C BC, HEPATIC, BMP, LIPASE #### [address] Lymphocytes/100 WBC (Bld) 16.5 % Normal . [facility] Comment on above: Performed By: #### C BC, HEPATIC, BMP, LIPASE #### [address] [address] [place] MCH (RBC) [Entitic mass] 33.9 pg Normal 24.7-34.3 [facility] Comment on above: Performed By: #### C BC, HEPATIC, BMP, LIPASE #### [address] MCV (RBC) [Entitic vol] 95.5 fL Normal 80-100 [facility] Phys[facility] Comment on above: Performed By: #### C BC, HEPATIC, BMP, LIPASE #### [address] Mean Corpuscular HGB Conc 35.5 g/dL High 32.0-35.0 [facility] Comment on above: Performed By: #### C BC, HEPATIC, BMP, LIPASE #### [address] Monocytes (Bld) [#/Vol] 0.4 10*3/uL Normal 0.0-0.8 [facility] Comment on above: Performed By: #### C BC, HEPATIC, BMP, LIPASE #### [address] Monocytes/100 WBC (Bld) 20.48 % High 0.00-20.00 [facility] Phys[facility] Comment on above: Result Comment: For adults in ED, MDW > 20.0 may be associated with a higher risk of sepsis during the first 12 hrs of hospital admission Performed By: #### C BC, HEPATIC, BMP, LIPASE #### [address] Monocytes/100 WBC (Bld) 7.7 % Normal . [facility] Comment on above: Performed By: #### C BC, HEPATIC, BMP, LIPASE #### [address] Neutrophils (Bld) [#/Vol] 3.7 10*3/uL Normal 1.8-7.7 [facility] Comment on above: Performed By: #### C BC, HEPATIC, BMP, LIPASE #### [address] Neutrophils/100 WBC (Bld) 71.5 % Normal . [facility] Comment on above: Performed By: #### C BC, HEPATIC, BMP, LIPASE #### [facility] [address] NRBC% 0.0 /100{WBC} Normal 0-0.5 The [facility] Comment on above: Performed By: #### C BC, HEPATIC, BMP, LIPASE #### [address] Platelet mean volume (Bld) [Entitic vol] 7.9 fL Normal 6.3-10.7 The [facility] Comment on above: Performed By: #### C BC, HEPATIC, BMP, LIPASE #### [address] Platelets (Bld) [#/Vol] 203 10*3/uL Normal 150-450 [facility] Comment on above: Performed By: #### C BC, HEPATIC, BMP, LIPASE #### [address] RBC (Bld) [#/Vol] 3.35 10*6/uL Low 3.60-5.00 The [facility] Comment on above: Performed By: #### C BC, HEPATIC, BMP, LIPASE #### [address] WBC (Bld) [#/Vol] 5.2 10*3/uL Normal 3.8-11.6 The [facility] Comment on above: Performed By: #### C BC, HEPATIC, BMP, LIPASE #### [address] Creatinine [Mass/volume] in Serum or PlasmaOrdered By: Malcolm Gaston on 02-10-2025 Creatinine [Mass/Vol] Creatinine [Mass/volume] in Serum or Plasma Low 0.60-1.20 [facility] Dipstick and Microscopicon 0 02-10-2025 Appearance (U) Clear Normal Clear The [facility] Comment on above: Order Comment: Name Collection Type:: Clean-Voided Midstream Performed By: #### C BC, HEPATIC, BMP, LIPASE #### [address] Bacteria,Urine Rare Normal None Seen [facility] Comment on above: Order Comment: Name Collection Type:: Clean-Voided Midstream Performed By: #### C BC, HEPATIC, BMP, LIPASE #### [address] Bilirubin,Urine Negative Normal Negative The [facility] Comment on above: Order Comment: Name Collection Type:: Clean-Voided Midstream Performed By: #### C BC, HEPATIC, BMP, LIPASE #### [address] Color (U) Light-Yellow Normal Yellow The [facility] Comment on above: Order Comment: Name Collection Type:: Clean-Voided Midstream Performed By: #### C BC, HEPATIC, BMP, LIPASE #### [address] Glucose Ql (U) Normal Normal Normal [facility] Comment on above: Order Comment: Name Collection Type:: Clean-Voided Midstream Performed By: #### C BC, HEPATIC, BMP, LIPASE #### [address] Hyaline Casts,Urine None Normal 0-8 [facility] Comment on above: Order Comment: Name Collection Type:: Clean-Voided Midstream Performed By: #### C BC, HEPATIC, BMP, LIPASE #### [address] Ketones Ql (U) 1+ High Negative [facility] Comment on above: Order Comment: Name Collection Type:: Clean-Voided Midstream Performed By: #### C BC, HEPATIC, BMP, LIPASE #### [address] Leukocyte esterase Test strip Ql (U) 2+ High Negative [facility] Comment on above: Order Comment: Name Collection Type:: Clean-Voided Midstream Performed By: #### C BC, HEPATIC, BMP, LIPASE #### [address] Mucus,Urine 2+ Critically abnormal [facility] Comment on above: Order Comment: Name Collection Type:: Clean-Voided Midstream Result Comment: PERF ORMED BY: [place] [address] PATHOLOGIST GAS ATTENDANT BRANDI GONZALEZ M.D. Performed By: #### C BC, HEPATIC, BMP, LIPASE #### [place] [address] [place] Nitrite,Urine Negative Normal Negative The [facility] Comment on above: Order Comment: Name Collection Type:: Clean-Voided Midstream Performed By: #### C BC, HEPATIC, BMP, LIPASE #### [place] [address] [place] Occult Blood,Urine Negative Normal Negative The [facility] Comment on above: Order Comment: Name Collection Type:: Clean-Voided Midstream Result Comment: PERF ORMED BY: [place] [address] PATHOLOGIST GAS ATTENDANT BRANDI GONZALEZ M.D. Performed By: #### C BC, HEPATIC, BMP, LIPASE #### [place] [id number] [place] pH (U) 6.5 [pH] Normal 5.0-9.0 [facility] Comment on above: Order Comment: Name Collection Type:: Clean-Voided Midstream Performed By: #### C BC, HEPATIC, BMP, LIPASE #### [place] [address] [place] Protein,Urine Negative Normal Negative The [facility] Comment on above: Order Comment: Name Collection Type:: Clean-Voided Midstream Performed By: #### C BC, HEPATIC, BMP, LIPASE #### [address] RBC,Urine 1-2 Normal 0-4 [facility] Comment on above: Order Comment: Name Collection Type:: Clean-Voided Midstream Performed By: #### C BC, HEPATIC, BMP, LIPASE #### [facility] [address] Specificy [place],Urine 1.018 Normal 1.001-1.030 [facility] Comment on above: Order Comment: Name Collection Type:: Clean-Voided Midstream Performed By: #### C BC, HEPATIC, BMP, LIPASE #### [facility] [address] Squamous Epithelial Cell,Urine 5-9 High 0-2 [facility] Comment on above: Order Comment: Name Collection Type:: Clean-Voided Midstream Performed By: #### C BC, HEPATIC, BMP, LIPASE #### [address] Urobilinogen,Urine Normal Normal Normal The [facility] Comment on above: Order Comment: Name Collection Type:: Clean-Voided Midstream Performed By: #### C BC, HEPATIC, BMP, LIPASE #### [address] WBC,Urine 3-4 Normal 0-4 [facility] Comment on above: Order Comment: Name Collection Type:: Clean-Voided Midstream Performed By: #### C BC, HEPATIC, BMP, LIPASE #### [address] Eosinophils Auto (Bld) [#/Vo l]Ordered By: Malcolm Gaston on 02-10-2025 Eosinophils (Bld) [#/Vol] Automated eosinophil count 0.0-0.45 [facility] Eosinophils/100 WBC Auto (Bl d)Ordered By: Malcolm Gaston on 02-10-2025 Eosinophils/100 WBC (Bld) Automated eosinophil % . [facility] Erythrocyte distribution wid th Auto (RBC) [Ratio]Ordered By: Malcolm Gaston on 02-10-2025 Erythrocyte distribution width (RBC) [Ratio] Erythrocyte distribution width [Ratio] by Automated count 11.9-15.3 [facility] Globulin Calc (S) [Mass/Vol] Ordered By: Malcolm Gaston on 02-10-2025 Globulin (S) [Mass/Vol] Serum globulin measurement by calculation (mass/volume) [facility] Glucose [Mass/volume] in Ser um or PlasmaOrdered By: Malcolm Gaston on 02-10-2025 Glucose [Mass/Vol] Glucose [Mass/volume] in Serum or Plasma 70-100 [facility] Comment on above: ADA recommended refe rence rangeRandom Glucose Reference Range is dependent on time and content of last meal. Glucose of more than 200 mg/dL in a nonstressed, ambulatory subject supports the diagnosis of Diabetes Mellitus. Glucose [Mass/volume] in Uri ne by Test stripOrdered By: Malcolm Gaston on 02-10-2025 Glucose Test strip (U) [Mass/Vol] Glucose [Mass/volume] in Urine by Test strip Normal [facility] Hematocrit Auto (Bld) [Volum e fraction]Ordered By: Malcolm Gaston on 02-10-2025 Hematocrit (Bld) [Volume fraction] Hematocrit [Volume Fraction] of Blood by Automated count Low 34.0-46.4 [facility] Hemoglobin Test strip Ql (U) Ordered By: Malcolm Gaston on 02-10-2025 Hemoglobin Ql (U) Hemoglobin [Presence] in Urine by Test strip Negative [facility] Hemoglobin [Mass/volume] in BloodOrdered By: Malcolm Gaston on 02-10-2025 Hemoglobin (Bld) [Mass/Vol] Hemoglobin [Mass/volume] in Blood Low 11.8-15.4 [facility] Hepatic Panelon 02-10-2025 Albumin [Mass/Vol] 3.6 g/dL Normal 3.5-5.7 The [facility] Comment on above: Performed By: #### C BC, HEPATIC, BMP, LIPASE #### [facility] [address] Albumin/Globulin [Mass ratio] 1.4 {ratio} Normal [facility] Comment on above: Performed By: #### C BC, HEPATIC, BMP, LIPASE #### [facility] [address] ALP [Catalytic activity/Vol] 74 U/L Normal 34-104 [facility] Comment on above: Performed By: #### C BC, HEPATIC, BMP, LIPASE #### [facility] [address] ALT [Catalytic activity/Vol] 13 U/L Normal 7-52 The [facility] Comment on above: Performed By: #### C BC, HEPATIC, BMP, LIPASE #### [facility] [address] AST [Catalytic activity/Vol] 17 U/L Normal 13-39 [facility] Comment on above: Performed By: #### C BC, HEPATIC, BMP, LIPASE #### [address] Bilirubin [Mass/Vol] 0.4 mg/dL Normal 0.3-1.0 [facility] Comment on above: Performed By: #### C BC, HEPATIC, BMP, LIPASE #### [address] Bilirubin,Indirect 0.3 mg/dL Normal [facility] Comment on above: Performed By: #### C BC, HEPATIC, BMP, LIPASE #### [address] Bilirubin.indirect [Mass/Vol] 0.10 mg/dL Normal 0.03-0.18 [facility] Comment on above: Performed By: #### C BC, HEPATIC, BMP, LIPASE #### [address] Globulin (S) [Mass/Vol] 2.6 g/dL Normal T he [facility] Comment on above: Performed By: #### C BC, HEPATIC, BMP, LIPASE #### [address] Protein [Mass/Vol] 6.2 g/dL Low 6.4-8.9 [facility] Comment on above: Performed By: #### C BC, HEPATIC, BMP, LIPASE #### [address] Ketones Test strip Ql (U)Ord ered By: Malcolm Gaston on 02-10-2025 Ketones Ql (U) Ketones [Presence] in Urine by Test strip High Negative [facility] Leukocyte esterase [Presence ] in Urine by Test stripOrdered By: Malcolm Gaston on 02-10-2025 Leukocyte esterase Test strip Ql (U) Leukocyte esterase [Presence] in Urine by Test strip High Negative [facility] Leukocytes [#/volume] correc ira for nucleated erythrocytes in Blood by Automated counOrdered By: Malcolm Gaston on 02-10-2025 WBC corrected for nucl RBC Auto (Bld) [#/Vol] Leukocytes [#/volume] corrected for nucleated erythrocytes in Blood by Automated coun 3.8-11.6 [facility] Lipaseon 02-10-2025 Lipase [Catalytic activity/Vol] 21.0 U/L Normal 11.0-82.0 [facility] Comment on above: Result Comment: PERF ORMED BY: [place] [address] PATHOLOGIST GAS ATTENDANT BRANDI GONZALEZ M.D. Performed By: #### C BC, HEPATIC, BMP, LIPASE #### [address] Lipase [Enzymatic activity/v olume] in Serum or PlasmaOrdered By: Malcolm Gaston on 02-10-2025 Lipase [Catalytic activity/Vol] Lipase [Enzymatic activity/volume] in Serum or Plasma 11.0-82.0 [facility] Lymphocytes Auto (Bld) [#/Vo l]Ordered By: Malcolm Gaston on 02-10-2025 Lymphocytes (Bld) [#/Vol] Lymphocytes [#/volume] in Blood by Automated count Low 1.00-4.8 [facility] Lymphocytes/100 WBC Auto (Bl d)Ordered By: Malcolm Gaston on 02-10-2025 Lymphocytes/100 WBC (Bld) Lymphocytes/100 leukocytes in Blood by Automated count . [facility] MCH Auto (RBC) [Entitic mass ]Ordered By: Malcolm Gaston on 02-10-2025 MCH (RBC) [Entitic mass] MCH [Entitic mass] by Automated count 24.7-34.3 [facility] MCHC Auto (RBC) [Mass/Vol]Or dered By: Malcolm Gaston on 02-10-2025 MCHC (RBC) [Mass/Vol] MCHC [Mass/volume] by Automated count High 32.0-35.0 [facility] MCV Auto (RBC) [Entitic vol] Ordered By: Malcolm Gaston on 02-10-2025 MCV (RBC) [Entitic vol] MCV [Entitic vol ume] by Automated count 80-100 [facility] Monocyte distribution width [Entitic volume] in Blood by AutomatedOrdered By: Malcolm Gaston on 02-10-2025 Monocyte distribution width Auto (Bld) [Entitic vol] Monocyte distribution width [Entitic volume] in Blood by Automated High 0.00-20.00 [facility] Comment on above: For adults in ED, MD W > 20.0 may be associated with a higher risk of sepsis during the first 12 hrs of hospital admission Monocytes Auto (Bld) [#/Vol] Ordered By: Malcolm Gaston on 02-10-2025 Monocytes (Bld) [#/Vol] Automated blood monocyte count 0.0-0.8 [facility] Monocytes/100 WBC Auto (Bld) Ordered By: Malcolm Gaston on 02-10-2025 Monocytes/100 WBC (Bld) Automated monocyte % . [facility] Neutrophils Auto (Bld) [#/Vo l]Ordered By: Malcolm Gaston on 02-10-2025 Neutrophils (Bld) [#/Vol] Neutrophils [#/volume] in Blood by Automated count 1.8-7.7 [facility] Neutrophils/100 WBC Auto (Bl d)Ordered By: Malcolm Gaston on 02-10-2025 Neutrophils/100 WBC (Bld) Automated neutrophil % . [facility] Nitrite Test strip Ql (U)Ord ered By: Malcolm Gaston on 02-10-2025 Nitrite Ql (U) Nitrite [Presence] in Urine by Test strip Negative [facility] No Panel InformationOrdered By: Malcolm Gaston on 02-10-2025 Estimated GFR (CKD-EPI) > 60.0 mL/Min [facility] Creatinine Clearance (Chem 136.70 [facility] Nucleated erythrocytes [Pres ence] in Blood by Automated countOrdered By: Malcolm Gaston on 02-10-2025 Nucleated RBC Auto Ql (Bld) Nucleated erythrocytes [Presence] in Blood by Automated count 0-0.5 [facility] Platelet mean volume Auto (B ld) [Entitic vol]Ordered By: Malcolm Gaston on 02-10-2025 Platelet mean volume (Bld) [Entitic vol] Platelet mean volume [Entitic volume] in Blood by Automated count 6.3-10.7 [facility] Platelets Auto (Bld) [#/Vol] Ordered By: Malcolm Gaston on 02-10-2025 Platelets (Bld) [#/Vol] Platelets [#/vol ume] in Blood by Automated count 150-450 [facility] Potassium [Moles/volume] in Serum or PlasmaOrdered By: Malcolm Gaston on 02-10-2025 Potassium [Moles/Vol] Potassium [Moles/volume] in Serum or Plasma 3.5-5.1 [facility] Protein Test strip (U) [Mass /Vol]Ordered By: Malcoml Gaston on 02-10-2025 Protein (U) [Mass/Vol] Protein [Mass/volume] in Urine by Test strip Negative [facility] Protein [Mass/volume] in Ser um or PlasmaOrdered By: Malcolm Gaston on 02-10-2025 Protein [Mass/Vol] Protein [Mass/volume] in Serum or Plasma Low 6.4-8.9 [facility] RBC Auto (Bld) [#/Vol]Ordere d By: Malcolm Gaston on 02-10-2025 RBC (Bld) [#/Vol] Erythrocytes [#/volume] in Blood by Automated count Low 3.60-5.00 [facility] Serum or plasma albumin/glob ulin mass ratioOrdered By: Malcolm Gaston on 02-10-2025 Albumin/Globulin [Mass ratio] Serum or plasma albumin/globulin mass ratio [facility] Serum or plasma anion gap de terminationOrdered By: Malcolm Gaston on 02-10-2025 Anion gap [Moles/Vol] Serum or plasma anion gap determination 6.0-15.0 [facility] Serum or plasma non-glucuron idated bilirubin measurement (mass/volume)Ordered By: Malcolm Gaston on 02-10-2025 Bilirubin.indirect [Mass/Vol] Serum or plasma non-glucuronidated bilirubin measurement (mass/volume) [facility] Sodium [Moles/volume] in Ser um or PlasmaOrdered By: Malcolm Gaston on 02-10-2025 Sodium [Moles/Vol] Sodium [Moles/volume] in Serum or Plasma 136-145 [facility] Specific gravity Test strip (U) [Rel density]Ordered By: Malcolm Gaston on 02-10-2025 Specific gravity (U) [Rel density] Specific gravity of Urine by Test strip 1.001-1.030 [facility] Urea nitrogen [Mass/volume] in Serum or PlasmaOrdered By: Malcolm Gaston on 02-10-2025 Urea nitrogen [Mass/Vol] Urea nitrogen [Mass/volume] in Serum or Plasma Low 7-25 [facility] Urobilinogen Test strip (U) [Mass/Vol]Ordered By: Malcolm Gaston on 02-10-2025 Urobilinogen (U) [Mass/Vol] Urobilinogen [Mass/volume] in Urine by Test strip Normal [facility] WBC Auto (Bld) [#/Vol]Ordere d By: Malcolm Gaston on 02-10-2025 WBC (Bld) [#/Vol] Leukocytes [#/volume] in Blood by Automated count 3.8-11.6 [facility] pH Test strip (U)Ordered By: Malcolm Gaston on 02-10-2025 pH (U) pH of Urine by Test strip 5.0-9.0 [facility] Urinalysis macro (dipstick) panel (U)on 01-31-2025 Bilirubin, UA Negative Negative - 4(70) +++ mg/dL [facility] Blood, UA Negative Negative - 50 Brent/mcL [facility] Clarity, UA Clear [facility] Color, UA Yellow [facility] Glucose, UA Negative Negative - 1999(110) ++++ mg/dL [facility] Interpretation and review of laboratory results Abnormal [facility] Ketones, UA Negative Negative - 160(16) ++++ mg/dL [facility] Leukocytes, UA Positive Negative - 500+++ Kae/mcL [facility] Comment on above: small Nitrite, UA Negative Negative - Positive [facility] pH, UA 6 5 - 9 [facility] Protein, UA Negative Negative - 1999(20) ++++ mg/dL [facility] Spec Grav, UA 1.02 1 - 1.03 [facility] Urobilinogen, UA 0.2 0.2 - 12 mg/dL [facility] US OB 14+ WEEKS ANATOMY SCAN on [...] A short-term follow-up ultrasound is recommended. Electronically Signed:Qiall y signed by RENUKA BLACK II, MD, PHD at 28-Dec-2024 09:45:37 PM [facility] Normal Not Available Comment on above: Order Comment: US OB ANATOMY SINGLE W US OB CERVICAL LENGTH Estimated Date of Delivery: 05/12/25 Gestational Age as of 11/30/2024: 16w5d Urinalysis macro (dipstick) panel (U)on 12-28-2024 Bilirubin, UA Negative Negative - 4(70) +++ mg/dL [facility] Blood, UA Positive Negative - 50 Brent/mcL [facility] Comment on above: trace Clarity, UA Clear [facility] Color, UA Yellow [facility] Glucose, UA Negative Negative - 1999(110) ++++ mg/dL [facility] Interpretation and review of laboratory results Abnormal [facility] Ketones, UA Negative Negative - 160(16) ++++ mg/dL [facility] Leukocytes, UA Negative Negative - 500+++ Kae/mcL [facility] Nitrite, UA Negative Negative - Positive [facility] pH, UA 6 5 - 9 [facility] Protein, UA Negative Negative - 1999(20) ++++ mg/dL [facility] Spec Grav, UA 1.015 1 - 1.03 [facility] Urobilinogen, UA 0.2 0.2 - 12 mg/dL [facility] IGP,APTIMA HPV,AGE GDLNon AGE GDLN ACOG TESTING Note . [facility] Comment on above: TESTS RESULT FLAG UN ITS REF RANGE LAB Clinician Provided Cytology Information Source.............Cervix;Endocervix No. of containers..01 ThinPrep Vial Age Algo ACOG Katerin... FLAG LEGEND: L-Low Normal,H-High Normal,LL-Alert Low,HH-Alert High <-Panic Low,>-Panic High,A-Abnormal,AA-Critical Abnormal Performed at: 01 =[address] [id number] Shea Yun MD, HPV APTIMA Negative Negative [facility] Comment on above: This nucleic acid am plification test detects fourteen high- risk HPV types (16,18,31,33,35,39,45,51,52,56,58,59,66,68) without differentiation. Performed at: =[address] [id number] Swe[employer] Operator: Shea Yun MD, Phone: [phone] Performed at: [address] [id number] [employer] Operator: Shea Yun MD, Phone: [phone] IGP, APTIMA HPV, RFX 16/18,45 Note . [facility] Comment on above: TESTS RESULT FLAG UN ITS REF RANGE LAB DIAGNOSIS: 02 NEGATIVE FOR INTRAEPITHELIAL LESION OR MALIGNANCY. FUNGAL ORGANISMS MORPHOLOGICALLY CONSISTENT WITH TIGIST SPECIES ARE PRESENT. THIS SPECIMEN WAS RESCREENED PART OF OUR STITCHDOWN THREAD LASTER PROGRAM. Specimen adequacy: 02 Satisfactory for evaluation. No endocervical component is identified. Performed by: 02 Page Gonzalez Manager Meeting QC reviewed by: Lisa Gonzalez Manager Meeting ([facility]) . 02 Note: Note [...] <-Panic Low,>-Panic High,A-Abnormal,AA-Critical Abnormal Performed at: [address] [id number] Shea Yun MD, BRUSH-SPATULA CERVIX ENDOCERVIX [facility] Urinalysis macro (dipstick) panel (U)on 11-30-2024 Bilirubin, UA Negative Negative - 4(70) +++ mg/dL [facility] Blood, UA Positive Negative - 50 Brent/mcL [facility] Comment on above: Trace-Intact Clarity, UA Clear [facility] Color, UA Yellow [facility] Glucose, UA Negative Negative - 1999(110) ++++ mg/dL [facility] Interpretation and review of laboratory results Abnormal [facility] Ketones, UA Negative Negative - 160(16) ++++ mg/dL [facility] Leukocytes, UA Trace Negative - 500+++ Kae/mcL [facility] Nitrite, UA Negative Negative - Positive [facility] pH, UA 7 5 - 9 [facility] Protein, UA Negative Negative - 2000(20) ++++ mg/dL [facility] Spec Grav, UA 1.015 1 - 1.03 [facility] Urobilinogen, UA 0.2 0.2 - 12 mg/dL [facility] Urinalysis macro (dipstick) panel (U)on 11-02-2024 Bilirubin, UA Negative Negative - 4(70) +++ mg/dL [facility] Blood, UA Negative Negative - 50 Brent/mcL [facility] Clarity, UA Clear [facility] Color, UA Yellow [facility] Glucose, UA Negative Negative - 1999(110) ++++ mg/dL [facility] Interpretation and review of laboratory results Normal [facility] Ketones, UA Negative Negative - 160(16) ++++ mg/dL [facility] Leukocytes, UA Negative Negative - 500+++ Kae/mcL [facility] Nitrite, UA Negative Negative - Positive [facility] pH, UA 7 5 - 9 [facility] Protein, UA Negative Negative - 1999(20) ++++ mg/dL [facility] Spec Grav, UA 1.02 1 - 1.03 [facility] Urobilinogen, UA 0.2 0.2 - 12 mg/dL [facility] Alanine aminotransferase [En zymatic activity/volume] in Serum or PlasmaOrdered By: Ale Fragoso on 10-26-2024 ALT [Catalytic activity/Vol] Alanine aminotransferase [Enzymatic activity/volume] in Serum or Plasma 7-52 [facility] Albumin [Mass/volume] in Ser um or Plasma by Bromocresol green (BCG) dye binding methoOrdered By: Ale Fragoso on 10-26-2024 Albumin BCG dye [Mass/Vol] Albumin [Mass/volume] in Serum or Plasma by Bromocresol green (BCG) dye binding metho 3.5-5.7 [facility] Alkaline phosphatase [Enzyma tic activity/volume] in Serum or PlasmaOrdered By: Ale Fragoso on 10-26-2024 ALP [Catalytic activity/Vol] Alkaline phosphatase [Enzymatic activity/volume] in Serum or Plasma 34-104 [facility] Appearance of UrineOrdered B y: Ale Fragoso on 10-26-2024 Appearance (U) Urine appearance Clear [facility] Aspartate aminotransferase [ Enzymatic activity/volume] in Serum or PlasmaOrdered By: Ale Fragoso on 10-26-2024 AST [Catalytic activity/Vol] Aspartate aminotransferase [Enzymatic activity/volume] in Serum or Plasma 13-39 [facility] Basophils Auto (Bld) [#/Vol] Ordered By: Ale Fragoso on 10-26-2024 Basophils (Bld) [#/Vol] Automated basoph il count 0.0-0.2 [facility] Basophils/100 WBC Auto (Bld) Ordered By: Ale Fragoso on 10-26-2024 Basophils/100 WBC (Bld) Automated basophil % . [facility] Bilirubin Test strip Ql (U)O rdered By: Ale Fragoso on 10-26-2024 Bilirubin Ql (U) Bilirubin.total [Presence] in Urine by Test strip Negative [facility] Bilirubin.total [Mass/volume ] in Serum or PlasmaOrdered By: Ale Fragoso on 10-26-2024 Bilirubin [Mass/Vol] Bilirubin.total [Mass/volume] in Serum or Plasma 0.3-1.0 [facility] Calcium [Mass/volume] in Ser um or PlasmaOrdered By: Ale Fragoso on 10-26-2024 Calcium [Mass/Vol] Calcium [Mass/volume] in Serum or Plasma Low 8.6-10.3 [facility] Carbon dioxide, total [Moles /volume] in Serum or PlasmaOrdered By: Ale Fragoso on 10-26-2024 CO2 [Moles/Vol] Carbon dioxide, total [Moles/volume] in Serum or Plasma 21.0-31.0 [facility] Chloride [Moles/volume] in S mehdi or PlasmaOrdered By: Ale Fragoso on 10-26-2024 Chloride [Moles/Vol] Chloride [Moles/volume] in Serum or Plasma 98-107 [facility] Color Auto (U)Ordered By: Toribio Fragoso on 10-26-2024 Color (U) Color of Urine by Auto Yellow [facility] Complete Blood Count Auto Di ffon 10-26-2024 Basophils (Bld) [#/Vol] 0.0 10*3/uL Normal 0.0-0.2 [facility] Comment on above: Result Comment: PERF ORMED BY: [address] [address] PATHOLOGIST GAS ATTENDANT BRANDI GONZALEZ M.D. Performed By: #### C BC, HEPATIC, BMP, LIPASE #### [address] [place] [address] [place] Basophils/100 WBC (Bld) 0.6 % Normal . T he [facility] Comment on above: Performed By: #### C BC, HEPATIC, BMP, LIPASE #### [address] Eosinophils (Bld) [#/Vol] 0.3 10*3/uL Normal 0.0-0.45 [facility] Comment on above: Performed By: #### C BC, HEPATIC, BMP, LIPASE #### [address] Eosinophils/100 WBC (Bld) 5.6 % Normal . [facility] Comment on above: Performed By: #### C BC, HEPATIC, BMP, LIPASE #### [address] Erythrocyte distribution width (RBC) [Ratio] 13.6 % Normal 11.9-15.3 [facility] Comment on above: Performed By: #### C BC, HEPATIC, BMP, LIPASE #### [address] Hematocrit (Bld) [Volume fraction] 35.6 % Normal 34.0-46.4 [facility] Comment on above: Performed By: #### C BC, HEPATIC, BMP, LIPASE #### [address] Hemoglobin (Bld) [Mass/Vol] 12.3 g/dL Normal 11.8-15.4 [facility] Comment on above: Performed By: #### C BC, HEPATIC, BMP, LIPASE #### [address] Lymphocytes (Bld) [#/Vol] 0.8 10*3/uL Low 1.00-4.8 [facility] Comment on above: Performed By: #### C BC, HEPATIC, BMP, LIPASE #### [address] Lymphocytes/100 WBC (Bld) 18.1 % Normal . [facility] Comment on above: Performed By: #### C BC, HEPATIC, BMP, LIPASE #### [address] MCH (RBC) [Entitic mass] 32.2 pg Normal 24.7-34.3 [facility] Comment on above: Performed By: #### C BC, HEPATIC, BMP, LIPASE #### [address] MCV (RBC) [Entitic vol] 92.9 fL Normal 80-100 [facility] Comment on above: Performed By: #### C BC, HEPATIC, BMP, LIPASE #### [address] Mean Corpuscular HGB Conc 34.6 g/dL Normal 32.0-35.0 [facility] Comment on above: Performed By: #### C BC, HEPATIC, BMP, LIPASE #### [address] Monocytes (Bld) [#/Vol] 0.4 10*3/uL Normal 0.0-0.8 [facility] Comment on above: Performed By: #### C BC, HEPATIC, BMP, LIPASE #### [address] Monocytes/100 WBC (Bld) 17.94 % Normal 0.00-20.00 [facility] Comment on above: Performed By: #### C BC, HEPATIC, BMP, LIPASE #### [address] Monocytes/100 WBC (Bld) 8.1 % Normal . [facility] Comment on above: Performed By: #### C BC, HEPATIC, BMP, LIPASE #### [address] Neutrophils (Bld) [#/Vol] 3.1 10*3/uL Normal 1.8-7.7 [facility] Comment on above: Performed By: #### C BC, HEPATIC, BMP, LIPASE #### [address] Neutrophils/100 WBC (Bld) 67.6 % Normal . [facility] Comment on above: Performed By: #### C BC, HEPATIC, BMP, LIPASE #### [address] NRBC% 0.1 /100{WBC} Normal 0-0.5 [facility] Comment on above: Performed By: #### C BC, HEPATIC, BMP, LIPASE #### [address] Platelet mean volume (Bld) [Entitic vol] 7.6 fL Normal 6.3-10.7 [facility] Comment on above: Performed By: #### C BC, HEPATIC, BMP, LIPASE #### [address] Platelets (Bld) [#/Vol] 194 10*3/uL Normal 150-450 [facility] Comment on above: Performed By: #### C BC, HEPATIC, BMP, LIPASE #### [address] RBC (Bld) [#/Vol] 3.83 10*6/uL Normal 3.60-5.00 [facility] Comment on above: Performed By: #### C BC, HEPATIC, BMP, LIPASE #### [address] WBC (Bld) [#/Vol] 4.6 10*3/uL Normal 3.8-11.6 [facility] Comment on above: Performed By: #### C BC, HEPATIC, BMP, LIPASE #### [address] Comprehensive Metabolic Pane al 10-26-2024 Albumin [Mass/Vol] 3.6 g/dL Normal 3.5-5.7 [facility] Comment on above: Performed By: #### C BC, HEPATIC, BMP, LIPASE #### [address] Albumin/Globulin [Mass ratio] 1.5 {ratio} Normal [facility] Comment on above: Performed By: #### C BC, HEPATIC, BMP, LIPASE #### [facility] [address] [place] [address] [place] ALP [Catalytic activity/Vol] 42 U/L Normal 34-104 [facility] Comment on above: Performed By: #### C BC, HEPATIC, BMP, LIPASE #### [facility] [address] [place] [id number] [place] ALT [Catalytic activity/Vol] 13 U/L Normal 7-52 [facility] Comment on above: Performed By: #### C BC, HEPATIC, BMP, LIPASE #### [address] Anion gap [Moles/Vol] 7.3 mmol/L Normal 6.0-15.0 [facility] Comment on above: Performed By: #### C BC, HEPATIC, BMP, LIPASE #### [address] AST [Catalytic activity/Vol] 16 U/L Normal 13-39 [facility] Comment on above: Performed By: #### C BC, HEPATIC, BMP, LIPASE #### [place] [address] [place] Bilirubin [Mass/Vol] 0.3 mg/dL Normal 0.3-1.0 [facility] Comment on above: Performed By: #### C BC, HEPATIC, BMP, LIPASE #### [place] [address] [place] Calcium [Mass/Vol] 8.5 mg/dL Low 8.6-10.3 [facility] Comment on above: Performed By: #### C BC, HEPATIC, BMP, LIPASE #### [place] [address] [place] Chloride [Moles/Vol] 106 mmol/L Normal 98-107 [facility] Comment on above: Performed By: #### C BC, HEPATIC, BMP, LIPASE #### [place] [id number] [place] CO2 [Moles/Vol] 25.5 mmol/L Normal 21.0-31.0 [facility] Comment on above: Performed By: #### C BC, HEPATIC, BMP, LIPASE #### [facility] [address] Creatinine [Mass/Vol] 0.55 mg/dL Low 0.60-1.20 [facility] Comment on above: Performed By: #### C BC, HEPATIC, BMP, LIPASE #### [facility] [address] [place] [address] [place] Creatinine Clr Calc Pharmacy 121.47 Normal [facility] Comment on above: Performed By: #### C BC, HEPATIC, BMP, LIPASE #### [facility] [address] [place] [address] [place] GFR/1.73 sq M.predicted MDRD (S/P/Bld) [Vol rate/Area] mL/min/{1.73_m2} Normal [facility] Comment on above: Performed By: #### C BC, HEPATIC, BMP, LIPASE #### [facility] [address] Globulin (S) [Mass/Vol] 2.4 g/dL Normal T he [facility] Comment on above: Performed By: #### C BC, HEPATIC, BMP, LIPASE #### [address] Glucose [Mass/Vol] 90 mg/dL Normal 70-100 [facility] Comment on above: Result Comment: [place] Glucose Reference Range is dependent on time and content of last meal. Glucose of more than 200 mg/dL in a nonstressed, ambulatory subject supports the diagnosis of Diabetes Mellitus. ADA recommended reference range Performed By: #### C BC, HEPATIC, BMP, LIPASE #### [facility] [address] Potassium [Moles/Vol] 3.8 mmol/L Normal 3.5-5.1 [facility] Comment on above: Performed By: #### C BC, HEPATIC, BMP, LIPASE #### [facility] [address] Protein [Mass/Vol] 6.0 g/dL Low 6.4-8.9 [facility] Comment on above: Performed By: #### C BC, HEPATIC, BMP, LIPASE #### [facility] [address] [place] [address] [place] Sodium [Moles/Vol] 135 mmol/L Low 136-145 [facility] Comment on above: Performed By: #### C BC, HEPATIC, BMP, LIPASE #### [facility] [address] [place] [address] [place] Urea nitrogen [Mass/Vol] 9 mg/dL Normal 7-25 [facility] Comment on above: Performed By: #### C BC, HEPATIC, BMP, LIPASE #### [facility] [address] [place] [address] [place] Creatinine [Mass/volume] in Serum or PlasmaOrdered By: Ale Fragoso on 10-26-2024 Creatinine [Mass/Vol] Creatinine [Mass/volume] in Serum or Plasma Low 0.60-1.20 [facility] Eosinophils Auto (Bld) [#/Vo l]Ordered By: Ale Fragoso on 10-26-2024 Eosinophils (Bld) [#/Vol] Automated eosinophil count 0.0-0.45 [facility] Eosinophils/100 WBC Auto (Bl d)Ordered By: Ale Fragoso on 10-26-2024 Eosinophils/100 WBC (Bld) Automated eosinophil % . [facility] Erythrocyte distribution wid th Auto (RBC) [Ratio]Ordered By: Ale Fragoso on 10-26-2024 Erythrocyte distribution width (RBC) [Ratio] Erythrocyte distribution width [Ratio] by Automated count 11.9-15.3 [facility] Globulin Calc (S) [Mass/Vol] Ordered By: Ale Fragoso on 10-26-2024 Globulin (S) [Mass/Vol] Serum globulin measurement by calculation (mass/volume) [facility] Glucose [Mass/volume] in Ser um or PlasmaOrdered By: Ale Fragoso on 10-26-2024 Glucose [Mass/Vol] Glucose [Mass/volume] in Serum or Plasma 70-100 [facility] Comment on above: ADA recommended refe rence rangeRandom Glucose Reference Range is dependent on time and content of last meal. Glucose of more than 200 mg/dL in a nonstressed, ambulatory subject supports the diagnosis of Diabetes Mellitus. Glucose [Mass/volume] in Uri ne by Test stripOrdered By: Ale Fragoso on 10-26-2024 Glucose Test strip (U) [Mass/Vol] Glucose [Mass/volume] in Urine by Test strip Normal [facility] Hematocrit Auto (Bld) [Volum e fraction]Ordered By: Ale Fragoso on 10-26-2024 Hematocrit (Bld) [Volume fraction] Hematocrit [Volume Fraction] of Blood by Automated count 34.0-46.4 [facility] Hemoglobin Test strip Ql (U) Ordered By: Ale Fragoso on 10-26-2024 Hemoglobin Ql (U) Hemoglobin [Presence] in Urine by Test strip Negative [facility] Hemoglobin [Mass/volume] in BloodOrdered By: Ale Fragoso on 10-26-2024 Hemoglobin (Bld) [Mass/Vol] Hemoglobin [Mass/volume] in Blood 11.8-15.4 [facility] Ketones Test strip Ql (U)Ord ered By: Ale Fragoso on 10-26-2024 Ketones Ql (U) Ketones [Presence] in Urine by Test strip Negative [facility] Leukocyte esterase [Presence ] in Urine by Test stripOrdered By: Ale Fragoso on 10-26-2024 Leukocyte esterase Test strip Ql (U) Leukocyte esterase [Presence] in Urine by Test strip Negative [facility] Leukocytes [#/volume] correc ira for nucleated erythrocytes in Blood by Automated counOrdered By: Ale Fragoso on 10-26-2024 WBC corrected for nucl RBC Auto (Bld) [#/Vol] Leukocytes [#/volume] corrected for nucleated erythrocytes in Blood by Automated coun 3.8-11.6 [facility] Lymphocytes Auto (Bld) [#/Vo l]Ordered By: Ale Fragoso on 10-26-2024 Lymphocytes (Bld) [#/Vol] Lymphocytes [#/volume] in Blood by Automated count Low 1.00-4.8 [facility] Lymphocytes/100 WBC Auto (Bl d)Ordered By: Ale Fragoso on 10-26-2024 Lymphocytes/100 WBC (Bld) Lymphocytes/100 leukocytes in Blood by Automated count . [facility] MCH Auto (RBC) [Entitic mass ]Ordered By: Ale Fragoso on 10-26-2024 MCH (RBC) [Entitic mass] MCH [Entitic mass] by Automated count 24.7-34.3 [facility] MCHC Auto (RBC) [Mass/Vol]Or dered By: Ale Fragoso on 10-26-2024 MCHC (RBC) [Mass/Vol] MCHC [Mass/volume] by Automated count 32.0-35.0 [facility] MCV Auto (RBC) [Entitic vol] Ordered By: Ale Fragoso on 10-26-2024 MCV (RBC) [Entitic vol] MCV [Entitic vol ume] by Automated count 80-100 [facility] Magnesiumon 10-26-2024 Magnesium [Mass/Vol] 1.9 mg/dL Normal 1.9-2.7 [facility] Comment on above: Result Comment: PERF ORMED BY: [place] [address] PATHOLOGIST GAS ATTENDANT BRANDI GONZALEZ M.D. Performed By: #### C BC, HEPATIC, BMP, LIPASE #### [address] Magnesium [Mass/volume] in S mehdi or PlasmaOrdered By: Ale Fragoso on 10-26-2024 Magnesium [Mass/Vol] Magnesium [Mass/volume] in Serum or Plasma 1.9-2.7 [facility] Monocyte distribution width [Entitic volume] in Blood by AutomatedOrdered By: Ale Fragoso on 10-26-2024 Monocyte distribution width Auto (Bld) [Entitic vol] Monocyte distribution width [Entitic volume] in Blood by Automated 0.00-20.00 [facility] Monocytes Auto (Bld) [#/Vol] Ordered By: Ale Fragoso on 10-26-2024 Monocytes (Bld) [#/Vol] Automated blood monocyte count 0.0-0.8 [facility] Monocytes/100 WBC Auto (Bld) Ordered By: Ale Fragoso on 10-26-2024 Monocytes/100 WBC (Bld) Automated monocyte % . [facility] Neutrophils Auto (Bld) [#/Vo l]Ordered By: Ale Fragoso on 10-26-2024 Neutrophils (Bld) [#/Vol] Neutrophils [#/volume] in Blood by Automated count 1.8-7.7 [facility] Neutrophils/100 WBC Auto (Bl d)Ordered By: Ale Fragoso on 10-26-2024 Neutrophils/100 WBC (Bld) Automated neutrophil % . [facility] Nitrite Test strip Ql (U)Ord ered By: Ale Fragoso on 10-26-2024 Nitrite Ql (U) Nitrite [Presence] in Urine by Test strip Negative [facility] No Panel InformationOrdered By: Ale Fragoso on 10-26-2024 Estimated GFR (CKD-EPI) > 60.0 mL/Min [facility] Creatinine Clearance (Chem 121.47 [facility] Nucleated erythrocytes [Pres ence] in Blood by Automated countOrdered By: Ale Fragoso on 10-26-2024 Nucleated RBC Auto Ql (Bld) Nucleated erythrocytes [Presence] in Blood by Automated count 0-0.5 [facility] Platelet mean volume Auto (B ld) [Entitic vol]Ordered By: Ale Fragoso on 10-26-2024 Platelet mean volume (Bld) [Entitic vol] Platelet mean volume [Entitic volume] in Blood by Automated count 6.3-10.7 [facility] Platelets Auto (Bld) [#/Vol] Ordered By: Ale Fragoso on 10-26-2024 Platelets (Bld) [#/Vol] Platelets [#/vol ume] in Blood by Automated count 150-450 [facility] Potassium [Moles/volume] in Serum or PlasmaOrdered By: Ale Fragoso on 10-26-2024 Potassium [Moles/Vol] Potassium [Moles/volume] in Serum or Plasma 3.5-5.1 [facility] Protein Test strip (U) [Mass /Vol]Ordered By: Ale Fragoso on 10-26-2024 Protein (U) [Mass/Vol] Protein [Mass/volume] in Urine by Test strip Negative [facility] Protein [Mass/volume] in Ser um or PlasmaOrdered By: Ale Fragoso on 10-26-2024 Protein [Mass/Vol] Protein [Mass/volume] in Serum or Plasma Low 6.4-8.9 [facility] RBC Auto (Bld) [#/Vol]Ordere d By: Ale Fragoso on 10-26-2024 RBC (Bld) [#/Vol] Erythrocytes [#/volume] in Blood by Automated count 3.60-5.00 [facility] Serum or plasma albumin/glob ulin mass ratioOrdered By: Ale Fragoso on 10-26-2024 Albumin/Globulin [Mass ratio] Serum or plasma albumin/globulin mass ratio [facility] Serum or plasma anion gap de terminationOrdered By: Ale Fragoso on 10-26-2024 Anion gap [Moles/Vol] Serum or plasma anion gap determination 6.0-15.0 [facility] Sodium [Moles/volume] in Ser um or PlasmaOrdered By: Ale Fragoso on 10-26-2024 Sodium [Moles/Vol] Sodium [Moles/volume] in Serum or Plasma Low 136-145 [facility] Specific gravity Test strip (U) [Rel density]Ordered By: Ale Fragoso on 10-26-2024 Specific gravity (U) [Rel density] Specific gravity of Urine by Test strip 1.001-1.030 [facility] US renal RTon 10-26-2024 US renal [place] [address] Ultrasound Report Signed Patient: Breana Casas MR#: [id number] : 1990 Acct:[id number] Age/Sex: 33 / F ADM Date: 10/26/24 Loc: ER Room: Type: [facility] ER Attending Dr: Ordering Provider: Ale [...] Tanner Burleson M.D.10/26/2024 11:46 AM Dictation Location: [place] [address] Tech: Karmen Lobo Transcribed By: PWS 10/26/24 1146 Dictated By: Tanner Burleson DO 10/26/24 1139 Signed By: 10/26/24 1146 Normal [facility] Urea nitrogen [Mass/volume] in Serum or PlasmaOrdered By: Ale Fragoso on 10-26-2024 Urea nitrogen [Mass/Vol] Urea nitrogen [Mass/volume] in Serum or Plasma 04-29 [facility] Urinalysison 10-26-2024 Appearance (U) Clear Normal Clear [facility] Comment on above: Order Comment: Name Collection Type:: Clean-Voided Midstream Performed By: #### U A #### [facility] [address] [place] [id number] [place] Bilirubin,Urine Negative Normal Negative [facility] Comment on above: Order Comment: Name Collection Type:: Clean-Voided Midstream Performed By: #### U A #### [facility] [address] [place] [id number] [place] Color (U) Light-Yellow Normal Yellow [facility] Comment on above: Order Comment: Name Collection Type:: Clean-Voided Midstream Performed By: #### U A #### [facility] [address] [place] [address] [place] Glucose Ql (U) Normal Normal Normal [facility] Comment on above: Order Comment: Name Collection Type:: Clean-Voided Midstream Performed By: #### U A #### [facility] [address] [place] [address] [place] Ketones Ql (U) Negative Normal Negative [facility] Comment on above: Order Comment: Name Collection Type:: Clean-Voided Midstream Performed By: #### U A #### [facility] [address] [place] [id number] [place] Leukocyte esterase Test strip Ql (U) Negative Normal Negative [facility] Comment on above: Order Comment: Name Collection Type:: Clean-Voided Midstream Performed By: #### U A #### [place] [address] [place] Nitrite,Urine Negative Normal Negative [facility] Comment on above: Order Comment: Name Collection Type:: Clean-Voided Midstream Performed By: #### U A #### [address] Occult Blood,Urine Negative Normal Negative [facility] Comment on above: Order Comment: Name Collection Type:: Clean-Voided Midstream Result Comment: PERF ORMED BY: [place] [address] PATHOLOGIST GAS ATTENDANT BRANDI GONZALEZ M.D. Performed By: #### U A #### [place] [address] [place] pH (U) 6.5 [pH] Normal 5.0-9.0 [facility] Comment on above: Order Comment: Name Collection Type:: Clean-Voided Midstream Performed By: #### U A #### [place] [address] [place] Protein,Urine Negative Normal Negative [facility] Comment on above: Order Comment: Name Collection Type:: Clean-Voided Midstream Performed By: #### U A #### [place] [address] [place] Specificy [place],Urine 1.020 Normal 1.001-1.030 [facility] Comment on above: Order Comment: Name Collection Type:: Clean-Voided Midstream Performed By: #### U A #### [place] [address] [place] Urobilinogen,Urine Normal Normal Normal [facility] Comment on above: Order Comment: Name Collection Type:: Clean-Voided Midstream Performed By: #### U A #### [address] Urobilinogen Test strip (U) [Mass/Vol]Ordered By: Ale Fragoso on 10-26-2024 Urobilinogen (U) [Mass/Vol] Urobilinogen [Mass/volume] in Urine by Test strip Normal [facility] WBC Auto (Bld) [#/Vol]Ordere d By: Ale Fragoso on 10-26-2024 WBC (Bld) [#/Vol] Leukocytes [#/volume] in Blood by Automated count 3.8-11.6 [facility] pH Test strip (U)Ordered By: Ale Fragoso on 10-26-2024 pH (U) pH of Urine by Test strip 5.0-9.0 [facility] BOX TESTon 10-19-2024 BOX TEST SENT OUT [facility] BOX1 [facility] BOX2 10/19/24 [facility] HCG ( test) Ql (U)o n 10-01-2024 Interpretation and review of laboratory results Abnormal [facility] Preg Test, Ur Positive Negative [facility] Urinalysis macro (dipstick) panel (U)on 10-01-2024 Bilirubin, UA Negative Negative - 4(70) +++ mg/dL [facility] Blood, UA Negative Negative - 50 Brent/mcL [facility] Clarity, UA Clear [facility] Color, UA Yellow [facility] Glucose, UA Negative Negative - 2000(110) ++++ mg/dL [facility] Interpretation and review of laboratory results Normal [facility] Ketones, UA Negative Negative - 160(16) ++++ mg/dL [facility] Leukocytes, UA Negative Negative - 500+++ Kae/mcL [facility] Nitrite, UA Negative Negative - Positive [facility] pH, UA 6 5 - 9 [facility] Protein, UA Negative Negative - 2000(20) ++++ mg/dL [facility] Spec Grav, UA 1.005 1 - 1.03 [facility] Urobilinogen, UA 0.2 0.2 - 12 mg/dL [facility] PREG QUANT HCGon 024 HCG QUANTITATIVE 06230 mIU/mL [facility] Comment on above: 5-50 0.2-1 WEEK 50-500 1-2 WEEKS 100-5,000 2-3 WEEKS 500-10,000 3-4 WEEKS 1,000-50,000 4-5 WEEKS 10,000-100,000 5-6 WEEKS 15,000-200,000 6-8 WEEKS 10,000-100,000 2-3 MONTHS [facility]H PREG QUANT HCGon 024 HCG QUANTITATIVE 6224 mIU/mL [facility] Comment on above: 5-50 0.2-1 WEEK 50-500 1-2 WEEKS 100-5,000 2-3 WEEKS 500-10,000 3-4 WEEKS 1,000-50,000 4-5 WEEKS 10,000-100,000 5-6 WEEKS 15,000-200,000 6-8 WEEKS 10,000-100,000 2-3 MONTHS [facility] ALL PROGESTERONEon 4 PROGESTERONE 21.4 ng/mL . [facility] Comment on above: Follicular phase 0. 1 - 0.9 Luteal phase 1.8 - 23.9 Ovulation phase 0.1 - 12.0 First trimester 11.0 - 44.3 Second trimester 25.4 - 83.3 Third trimester 58.7 - 214.0 Postmenopausal 0.0 - 0.1 Performed at: [facility] [address] [id number] [employer] Operator: Lebron Manzo PhD, Phone: [phone] [facility] HCG ( test) Ql (U)o n 06-29-2024 Interpretation and review of laboratory results Normal [facility] Preg Test, Ur Negative [facility] Urinalysis macro (dipstick) panel (U)on 06-29-2024 Bilirubin, UA Negative Negative - 4(70) +++ mg/dL [facility] Blood, UA Positive Negative - 50 Brent/mcL [facility] Comment on above: trace Clarity, UA Clear [facility] Color, UA Yellow [facility] Glucose, UA Negative Negative - 1999(110) ++++ mg/dL [facility] Interpretation and review of laboratory results Normal [facility] Ketones, UA Negative Negative - 160(16) ++++ mg/dL [facility] Leukocytes, UA Negative Negative - 500+++ Kae/mcL [facility] Nitrite, UA Negative Negative - Positive [facility] pH, UA 5.5 5 - 9 [facility] Protein, UA Negative Negative - 1999(20) ++++ mg/dL [facility] Spec Grav, UA 1.020 1 - 1.03 [facility] Urobilinogen, UA 1.0 0.2 - 12 mg/dL [facility] Alanine aminotransferase [En zymatic activity/volume] in Serum or PlasmaOrdered By: PROVIDER TEMP on 06-17-2024 ALT [Catalytic activity/Vol] 15 U/L Normal 7-52 [facility] Comment on above: Performed By: #### C BC, HEPATIC, BMP, LIPASE #### [place] [address] [place] Albumin [Mass/volume] in Ser um or Plasma by Bromocresol green (BCG) dye binding methoOrdered By: PROVIDER TEMP on 06-17-2024 Albumin BCG dye [Mass/Vol] 4.5 g/dL 3.5-5.7 [facility] Alkaline phosphatase [Enzyma tic activity/volume] in Serum or PlasmaOrdered By: PROVIDER TEMP on 06-17-2024 ALP [Catalytic activity/Vol] 58 U/L Normal 34-104 [facility] Comment on above: Performed By: #### C BC, HEPATIC, BMP, LIPASE #### [address] Aspartate aminotransferase [ Enzymatic activity/volume] in Serum or PlasmaOrdered By: PROVIDER TEMP on 06-17-2024 AST [Catalytic activity/Vol] 17 U/L Normal 13-39 [facility] Comment on above: Performed By: #### C BC, HEPATIC, BMP, LIPASE #### [address] Automated basophil %Ordered By: PROVIDER TEMP on 06-17-2024 Basophils/100 WBC (Bld) 1.1 % Normal . [facility] Comment on above: Performed By: #### C BC, HEPATIC, BMP, LIPASE #### [address] Automated basophil countOrde red By: PROVIDER TEMP on 06-17-2024 Basophils (Bld) [#/Vol] 0.0 10*3/uL Normal 0.0-0.2 [facility] Comment on above: Result Comment: PERF ORMED BY: [place] [address] PATHOLOGIST GAS ATTENDANT KHANG WEEKS M.D. Performed By: #### C BC, HEPATIC, BMP, LIPASE #### [address] Automated blood monocyte cou ntOrdered By: PROVIDER TEMP on 06-17-2024 Monocytes (Bld) [#/Vol] 0.3 10*3/uL Normal 0.0-0.8 [facility] Comment on above: Performed By: #### C BC, HEPATIC, BMP, LIPASE #### [address] Automated eosinophil %Ordere d By: PROVIDER TEMP on 06-17-2024 Eosinophils/100 WBC (Bld) 9.5 % Normal . [facility] Comment on above: Performed By: #### C BC, HEPATIC, BMP, LIPASE #### [address] Automated eosinophil countOr dered By: PROVIDER TEMP on 06-17-2024 Eosinophils (Bld) [#/Vol] 0.4 10*3/uL Normal 0.0-0.45 [facility] Comment on above: Performed By: #### C BC, HEPATIC, BMP, LIPASE #### [address] Automated monocyte %Ordered By: PROVIDER TEMP on 06-17-2024 Monocytes/100 WBC (Bld) 7.1 % Normal . [facility] Comment on above: Performed By: #### C BC, HEPATIC, BMP, LIPASE #### [address] Automated neutrophil %Ordere d By: PROVIDER TEMP on 06-17-2024 Neutrophils/100 WBC (Bld) 51.1 % Normal . [facility] Comment on above: Performed By: #### C BC, HEPATIC, BMP, LIPASE #### [address] Basic Metabolic Panelon 06-06 Creatinine Clr Calc Pharmacy 78.60 Normal [facility] Comment on above: Performed By: #### C BC, HEPATIC, BMP, LIPASE #### [facility] [address] GFR/1.73 sq M.predicted MDRD (S/P/Bld) [Vol rate/Area] mL/min/{1.73_m2} Normal [facility] Comment on above: Performed By: #### C BC, HEPATIC, BMP, LIPASE #### [facility] [address] Bilirubin Test strip Ql (U)O rdered By: PROVIDER TEMP on 06-17-2024 Bilirubin Ql (U) Negative Negative [facility] Bilirubin.direct [Mass/volum e] in Serum or PlasmaOrdered By: PROVIDER TEMP on 06-17-2024 Bilirubin.direct [Mass/Vol] 0.20 mg/dL High 0.03-0.18 [facility] Bilirubin.total [Mass/volume ] in Serum or PlasmaOrdered By: PROVIDER TEMP on 06-17-2024 Bilirubin [Mass/Vol] 0.8 mg/dL Normal 0.3-1.0 [facility] Comment on above: Performed By: #### C BC, HEPATIC, BMP, LIPASE #### [address] Calcium [Mass/volume] in Ser um or PlasmaOrdered By: PROVIDER TEMP on 06-17-2024 Calcium [Mass/Vol] 9.2 mg/dL Normal 8.6-10.3 [facility] Comment on above: Performed By: #### C BC, HEPATIC, BMP, LIPASE #### [facility] [address] Carbon dioxide, total [Moles /volume] in Serum or PlasmaOrdered By: PROVIDER TEMP on 06-17-2024 CO2 [Moles/Vol] 27.0 mmol/L Normal 21.0-31.0 [facility] Comment on above: Performed By: #### C BC, HEPATIC, BMP, LIPASE #### [facility] [address] [place] [address] Chloride [Moles/volume] in S mehdi or PlasmaOrdered By: PROVIDER TEMP on 06-17-2024 Chloride [Moles/Vol] 106 mmol/L Normal 98-107 [facility] Comment on above: Performed By: #### C BC, HEPATIC, BMP, LIPASE #### [address] Color of Urine by AutoOrdere d By: PROVIDER TEMP on 06-17-2024 Color (U) Light-yellow Normal Yellow [facility] Comment on above: Order Comment: Name Collection Type:: Clean-Voided Midstream Performed By: #### C BC, HEPATIC, BMP, LIPASE #### [address] Complete Blood Count Auto Di ffon 06-17-2024 Mean Corpuscular HGB Conc 34.6 g/dL Normal 32.0-35.0 [facility] Comment on above: Performed By: #### C BC, HEPATIC, BMP, LIPASE #### [address] Monocytes/100 WBC (Bld) 16.54 % Normal 0.00-20.00 [facility] Comment on above: Performed By: #### C BC, HEPATIC, BMP, LIPASE #### [address] NRBC% 0.1 /100{WBC} Normal 0-0.5 [facility] Comment on above: Performed By: #### C BC, HEPATIC, BMP, LIPASE #### [address] Creatinine [Mass/volume] in Serum or PlasmaOrdered By: PROVIDER TEMP on 06-17-2024 Creatinine [Mass/Vol] 0.85 mg/dL Normal 0.60-1.20 [facility] Comment on above: Performed By: #### C BC, HEPATIC, BMP, LIPASE #### [address] Erythrocyte distribution wid th [Ratio] by Automated countOrdered By: PROVIDER TEMP on 06-17-2024 Erythrocyte distribution width (RBC) [Ratio] 12.7 % Normal 11.9-15.3 [facility] Comment on above: Performed By: #### C BC, HEPATIC, BMP, LIPASE #### [facility] [address] Erythrocytes [#/volume] in B lood by Automated countOrdered By: PROVIDER TEMP on 06-17-2024 RBC (Bld) [#/Vol] 4.50 10*6/uL Normal 3.60-5.00 [facility] Comment on above: Performed By: #### C BC, HEPATIC, BMP, LIPASE #### [facility] [address] Glucose [Mass/volume] in Ser um or PlasmaOrdered By: PROVIDER TEMP on 06-17-2024 Glucose [Mass/Vol] 86 mg/dL Normal 70-100 [facility] Comment on above: ADA recommended refe rence rangeRandom Glucose Reference Range is dependent on time and content of last meal. Glucose of more than 200 mg/dL in a nonstressed, ambulatory subject supports the diagnosis of Diabetes Mellitus. Result Comment: [place] Glucose Reference Range is dependent on time and content of last meal. Glucose of more than 200 mg/dL in a nonstressed, ambulatory subject supports the diagnosis of Diabetes Mellitus. ADA recommended reference range Performed By: #### C BC, HEPATIC, BMP, LIPASE #### [facility] [address] [place] [address] Glucose [Mass/volume] in Uri ne by Test stripOrdered By: PROVIDER TEMP on 06-17-2024 Glucose Test strip (U) [Mass/Vol] Normal mg/dL Normal [facility] HCG ( test) IA.rapi d Ql (U)Ordered By: PROVIDER TEMP on 06-17-2024 HCG ( test) Ql (U) Negative [facility] HCG,Urineon 06-17-2024 Beta HCG ( test) Ql (U) Negative Normal [facility] Comment on above: Order Comment: Name Collection Type:: Clean-Voided Midstream Result Comment: PERF ORMED BY: [place] [address] PATHOLOGIST GAS ATTENDANT KHANG WEEKS M.D. Performed By: #### C BC, HEPATIC, BMP, LIPASE #### [address] Hematocrit [Volume Fraction] of Blood by Automated countOrdered By: PROVIDER TEMP on 06-17-2024 Hematocrit (Bld) [Volume fraction] 41.7 % Normal 34.0-46.4 [facility] Comment on above: Performed By: #### C BC, HEPATIC, BMP, LIPASE #### [address] Hemoglobin Test strip Ql (U) Ordered By: PROVIDER TEMP on 06-17-2024 Hemoglobin Ql (U) Negative Negative [facility] Hemoglobin [Mass/volume] in BloodOrdered By: PROVIDER TEMP on 06-17-2024 Hemoglobin (Bld) [Mass/Vol] 14.4 g/dL Normal 11.8-15.4 [facility] Comment on above: Performed By: #### C BC, HEPATIC, BMP, LIPASE #### [address] Hepatic Panelon 06-17-2024 Albumin [Mass/Vol] 4.5 g/dL Normal 3.5-5.7 [facility] Comment on above: Performed By: #### C BC, HEPATIC, BMP, LIPASE #### [address] Bilirubin,Indirect 0.6 mg/dL Normal [facility] Comment on above: Performed By: #### C BC, HEPATIC, BMP, LIPASE #### [address] Bilirubin.indirect [Mass/Vol] 0.20 mg/dL High 0.03-0.18 [facility] Comment on above: Performed By: #### C BC, HEPATIC, BMP, LIPASE #### [address] Ketones [Presence] in Urine by Test stripOrdered By: PROVIDER TEMP on 06-17-2024 Ketones Ql (U) 1+ High Negative [facility] Comment on above: Order Comment: Name Collection Type:: Clean-Voided Midstream Performed By: #### C BC, HEPATIC, BMP, LIPASE #### [facility] [address] [place] [address] Leukocyte esterase [Presence ] in Urine by Test stripOrdered By: PROVIDER TEMP on 06-17-2024 Leukocyte esterase Test strip Ql (U) Negative Normal Negative [facility] Comment on above: Order Comment: Name Collection Type:: Clean-Voided Midstream Performed By: #### C BC, HEPATIC, BMP, LIPASE #### [facility] [address] [place] [address] Leukocytes [#/volume] correc ira for nucleated erythrocytes in Blood by Automated counOrdered By: PROVIDER TEMP on 06-17-2024 WBC corrected for nucl RBC Auto (Bld) [#/Vol] 4.4 10*3/uL 3.8-11.6 [facility] Leukocytes [#/volume] in Blo od by Automated countOrdered By: PROVIDER TEMP on 06-17-2024 WBC (Bld) [#/Vol] 4.4 10*3/uL Normal 3.8-11.6 [facility] Comment on above: Performed By: #### C BC, HEPATIC, BMP, LIPASE #### [facility] [address] [place] [address] Lipase [Enzymatic activity/v olume] in Serum or PlasmaOrdered By: PROVIDER TEMP on 06-17-2024 Lipase [Catalytic activity/Vol] 16.0 U/L Normal 11.0-82.0 [facility] Comment on above: Result Comment: PERF ORMED BY: [place] [address] PATHOLOGIST GAS ATTENDANT KHANG WEEKS M.D. Performed By: #### C BC, HEPATIC, BMP, LIPASE #### [facility] [address] [place] [address] Lymphocytes [#/volume] in Bl ood by Automated countOrdered By: PROVIDER TEMP on 06-17-2024 Lymphocytes (Bld) [#/Vol] 1.4 10*3/uL Normal 1.00-4.8 [facility] Comment on above: Performed By: #### C BC, HEPATIC, BMP, LIPASE #### [address] Lymphocytes/100 leukocytes i n Blood by Automated countOrdered By: PROVIDER TEMP on 06-17-2024 Lymphocytes/100 WBC (Bld) 31.2 % Normal . [facility] Comment on above: Performed By: #### C BC, HEPATIC, BMP, LIPASE #### [address] MCH [Entitic mass] by Automa ira countOrdered By: PROVIDER TEMP on 06-17-2024 MCH (RBC) [Entitic mass] 32.1 pg Normal 24.7-34.3 [facility] Comment on above: Performed By: #### C BC, HEPATIC, BMP, LIPASE #### [address] MCHC Auto (RBC) [Mass/Vol]Or dered By: PROVIDER TEMP on 06-17-2024 MCHC (RBC) [Mass/Vol] 34.6 g/dL 32.0-35.0 [facility] MCV [Entitic volume] by Auto mated countOrdered By: PROVIDER TEMP on 06-17-2024 MCV (RBC) [Entitic vol] 92.6 fL Normal 80-100 [facility] Comment on above: Performed By: #### C BC, HEPATIC, BMP, LIPASE #### [address] Monocyte distribution width [Entitic volume] in Blood by AutomatedOrdered By: PROVIDER TEMP on 06-17-2024 Monocyte distribution width Auto (Bld) [Entitic vol] 16.54 % 0.00-20.00 [facility] Neutrophils [#/volume] in Bl ood by Automated countOrdered By: PROVIDER TEMP on 06-17-2024 Neutrophils (Bld) [#/Vol] 2.2 10*3/uL Normal 1.8-7.7 [facility] Comment on above: Performed By: #### C BC, HEPATIC, BMP, LIPASE #### [facility] [address] Nitrite Test strip Ql (U)Ord ered By: PROVIDER TEMP on 06-17-2024 Nitrite Ql (U) Negative Negative [facility] No Panel InformationOrdered By: PROVIDER TEMP on 06-17-2024 Estimated GFR (CKD-EPI) > 60.0 mL/Min [facility] Creatinine Clearance (Chem 78.60 [facility] Nucleated erythrocytes [Pres ence] in Blood by Automated countOrdered By: PROVIDER TEMP on 06-17-2024 Nucleated RBC Auto Ql (Bld) 0.1 /100{WBC} 0-0.5 [facility] Platelet mean volume [Entiti c volume] in Blood by Automated countOrdered By: PROVIDER TEMP on 06-17-2024 Platelet mean volume (Bld) [Entitic vol] 7.5 fL Normal 6.3-10.7 [facility] Comment on above: Performed By: #### C BC, HEPATIC, BMP, LIPASE #### [facility] [address] [place] [address] Platelets [#/volume] in Bloo d by Automated countOrdered By: PROVIDER TEMP on 06-17-2024 Platelets (Bld) [#/Vol] 210 10*3/uL Normal 150-450 [facility] Comment on above: Performed By: #### C BC, HEPATIC, BMP, LIPASE #### [facility] [address] [place] [address] [place] Potassium [Moles/volume] in Serum or PlasmaOrdered By: PROVIDER TEMP on 06-17-2024 Potassium [Moles/Vol] 3.6 mmol/L Normal 3.5-5.1 [facility] Comment on above: Performed By: #### C BC, HEPATIC, BMP, LIPASE #### [address] Protein Test strip (U) [Mass /Vol]Ordered By: PROVIDER TEMP on 06-17-2024 Protein (U) [Mass/Vol] Negative Negative [facility] Protein [Mass/volume] in Ser um or PlasmaOrdered By: PROVIDER TEMP on 06-17-2024 Protein [Mass/Vol] 7.0 g/dL Normal 6.4-8.9 [facility] Comment on above: Performed By: #### C BC, HEPATIC, BMP, LIPASE #### [address] Serum globulin measurement b y calculation (mass/volume)Ordered By: PROVIDER TEMP on 06-17-2024 Globulin (S) [Mass/Vol] 2.5 g/dL Normal [facility] Comment on above: Performed By: #### C BC, HEPATIC, BMP, LIPASE #### [address] Serum or plasma albumin/glob ulin mass ratioOrdered By: PROVIDER TEMP on 06-17-2024 Albumin/Globulin [Mass ratio] 1.8 {ratio} Normal [facility] Comment on above: Performed By: #### C BC, HEPATIC, BMP, LIPASE #### [address] Serum or plasma anion gap de terminationOrdered By: PROVIDER TEMP on 06-17-2024 Anion gap [Moles/Vol] 6.6 mmol/L Normal 6.0-15.0 [facility] Comment on above: Performed By: #### C BC, HEPATIC, BMP, LIPASE #### [address] Serum or plasma non-glucuron idated bilirubin measurement (mass/volume)Ordered By: PROVIDER TEMP on 06-17-2024 Bilirubin.indirect [Mass/Vol] 0.6 mg/dL [facility] Sodium [Moles/volume] in Ser um or PlasmaOrdered By: PROVIDER TEMP on 06-17-2024 Sodium [Moles/Vol] 136 mmol/L Normal 136-145 [facility] Comment on above: Performed By: #### C BC, HEPATIC, BMP, LIPASE #### [address] Specific gravity Test strip (U) [Rel density]Ordered By: PROVIDER TEMP on 06-17-2024 Specific gravity (U) [Rel density] 1.018 1.001-1.030 [facility] Urea nitrogen [Mass/volume] in Serum or PlasmaOrdered By: PROVIDER TEMP on 06-17-2024 Urea nitrogen [Mass/Vol] 9 mg/dL Normal 7-25 [facility] Comment on above: Performed By: #### C BC, HEPATIC, BMP, LIPASE #### [address] Urinalysison 06-17-2024 Bilirubin,Urine Negative Normal Negative [facility] Comment on above: Order Comment: Name Collection Type:: Clean-Voided Midstream Performed By: #### C BC, HEPATIC, BMP, LIPASE #### [address] Glucose Ql (U) Normal Normal Normal [facility] Comment on above: Order Comment: Name Collection Type:: Clean-Voided Midstream Performed By: #### C BC, HEPATIC, BMP, LIPASE #### [address] Nitrite,Urine Negative Normal Negative [facility] Comment on above: Order Comment: Name Collection Type:: Clean-Voided Midstream Performed By: #### C BC, HEPATIC, BMP, LIPASE #### [address] Occult Blood,Urine Negative Normal Negative [facility] Comment on above: Order Comment: Name Collection Type:: Clean-Voided Midstream Performed By: #### C BC, HEPATIC, BMP, LIPASE #### [place] [address] [place] Protein,Urine Negative Normal Negative [facility] Comment on above: Order Comment: Name Collection Type:: Clean-Voided Midstream Performed By: #### C BC, HEPATIC, BMP, LIPASE #### [address] Specificy [place],Urine 1.018 Normal 1.001-1.030 [facility] Comment on above: Order Comment: Name Collection Type:: Clean-Voided Midstream Performed By: #### C BC, HEPATIC, BMP, LIPASE #### [facility] [address] Urobilinogen,Urine Normal Normal Normal [facility] Comment on above: Order Comment: Name Collection Type:: Clean-Voided Midstream Performed By: #### C BC, HEPATIC, BMP, LIPASE #### [facility] [address] Urine appearanceOrdered By: PROVIDER TEMP on 06-17-2024 Appearance (U) Clear Normal Clear [facility] Comment on above: Order Comment: Name Collection Type:: Clean-Voided Midstream Performed By: #### C BC, HEPATIC, BMP, LIPASE #### [facility] [address] Urobilinogen Test strip (U) [Mass/Vol]Ordered By: PROVIDER TEMP on 06-17-2024 Urobilinogen (U) [Mass/Vol] Normal mg/dL Normal [facility] pH of Urine by Test stripOrd ered By: PROVIDER TEMP on 06-17-2024 pH (U) 6.0 [pH] Normal 5.0-9.0 [facility] Comment on above: Order Comment: Name Collection Type:: Clean-Voided Midstream Performed By: #### C BC, HEPATIC, BMP, LIPASE #### [facility] [address] Choriogonadotropin.beta subu nit [Units/volume] in Serum or PlasmaOrdered By: Dominic Hester on 04-24-2024 HCG.beta subunit Qn m[IU]/mL [facility] Comment on above: Approximate Approxim ate hCG Gestational Age Range (mIU/ml) (weeks)0.2-1 5-50 1-2 50-500 2-3 100-5,000 3-4 500-10,000 4-5 1,000-50,000 5-6 10,000-100,000 6-8 15,000-200,000 8-12 10,000-100,000 HCG,Quantitativeon HCG,Quantitative < 0.60 Normal [facility] Comment on above: Result Comment: Appr oximate Approximate hCG Gestational Age Range (mIU/ml) (weeks) 0.2-1 5-50 1-2 50-500 2-3 100-5,000 3-4 500-10,000 4-5 1,000-50,000 5-6 10,000-100,000 6-8 15,000-200,000 8-12 10,000-100,000 PERFORMED BY: [facility] [address] [place] [address] PATHOLOGIST GAS ATTENDANT KHANG WEEKS M.D. Performed By: #### C BC, HEPATIC, BMP, LIPASE #### [facility] [address] Basophils Auto (Bld) [#/Vol] Ordered By: Nahun Romero on 03-28-2023 Basophils (Bld) [#/Vol] 0.0 10*3/uL 0.0-0.2 [facility] Basophils/100 WBC Auto (Bld) Ordered By: Nahun Romero on 03-28-2023 Basophils/100 WBC (Bld) 0.8 % . [facility] Choriogonadotropin.beta subu nit [Units/volume] in Serum or PlasmaOrdered By: Nahun Romero on 03-28-2023 HCG.beta subunit Qn m[IU]/mL [facility] Comment on above: Approximate Approxim ate hCG Gestational Age Range (mIU/ml) (weeks)0.2-1 5-50 1-2 50-500 2-3 100-5,000 3-4 500-10,000 4-5 1,000-50,000 5-6 10,000-100,000 6-8 15,000-200,000 8-12 10,000-100,000 Eosinophils Auto (Bld) [#/Vo l]Ordered By: Nahun Romero on 03-28-2023 Eosinophils (Bld) [#/Vol] 0.2 10*3/uL 0.0-0.45 [facility] Eosinophils/100 WBC Auto (Bl d)Ordered By: Nahun Romero on 03-28-2023 Eosinophils/100 WBC (Bld) 4.7 % . [facility] Erythrocyte distribution wid th Auto (RBC) [Ratio]Ordered By: Nahun Romero on 03-28-2023 Erythrocyte distribution width (RBC) [Ratio] 13.0 % 11.9-15.3 [facility] Hematocrit Auto (Bld) [Volum e fraction]Ordered By: Nahun Romero on 03-28-2023 Hematocrit (Bld) [Volume fraction] 38.0 % 34.0-46.4 [facility] Hemoglobin [Mass/volume] in BloodOrdered By: Nahun Romero on 03-28-2023 Hemoglobin (Bld) [Mass/Vol] 12.9 g/dL 11.8-15.4 [facility] Leukocytes [#/volume] correc ira for nucleated erythrocytes in Blood by Automated counOrdered By: Nahun Romero on 03-28-2023 WBC corrected for nucl RBC Auto (Bld) [#/Vol] 4.1 10*3/uL 3.8-11.6 [facility] Lymphocytes Auto (Bld) [#/Vo l]Ordered By: Nahun Romero on 03-28-2023 Lymphocytes (Bld) [#/Vol] 1.0 10*3/uL 1.00-4.8 [facility] Lymphocytes/100 WBC Auto (Bl d)Ordered By: Nahun Romero on 03-28-2023 Lymphocytes/100 WBC (Bld) 23.9 % . [facility] MCH Auto (RBC) [Entitic mass ]Ordered By: Nahun Romero on 03-28-2023 MCH (RBC) [Entitic mass] 31.3 pg 24.7-34.3 [facility] MCHC Auto (RBC) [Mass/Vol]Or dered By: Nahun Romero on 03-28-2023 MCHC (RBC) [Mass/Vol] 33.9 g/dL 32.0-35.0 [facility] MCV Auto (RBC) [Entitic vol] Ordered By: Nahun Romero on 03-28-2023 MCV (RBC) [Entitic vol] 92.3 fL 80-100 [facility] Monocytes Auto (Bld) [#/Vol] Ordered By: Nahun Romero on 03-28-2023 Monocytes (Bld) [#/Vol] 0.3 10*3/uL 0.0-0.8 [facility] Monocytes/100 WBC Auto (Bld) Ordered By: Nahun Romero on 03-28-2023 Monocytes/100 WBC (Bld) 7.5 % . [facility] Neutrophils Auto (Bld) [#/Vo l]Ordered By: Nahun Romero on 03-28-2023 Neutrophils (Bld) [#/Vol] 2.6 10*3/uL 1.8-7.7 [facility] Neutrophils/100 WBC Auto (Bl d)Ordered By: Nahun Romero on 03-28-2023 Neutrophils/100 WBC (Bld) 63.1 % . [facility] Nucleated erythrocytes [Pres ence] in Blood by Automated countOrdered By: Nahun Romero on 03-28-2023 Nucleated RBC Auto Ql (Bld) 0.1 /100{WBC} 0-0.5 [facility] Platelet mean volume Auto (B ld) [Entitic vol]Ordered By: Nahun Romero on 03-28-2023 Platelet mean volume (Bld) [Entitic vol] 8.8 fL 6.3-10.7 [facility] Platelets Auto (Bld) [#/Vol] Ordered By: Nahun Romero on 03-28-2023 Platelets (Bld) [#/Vol] 196 10*3/uL 150-450 [facility] Prolactin [Mass/volume] in S mehdi or PlasmaOrdered By: Nahun Romero on 03-28-2023 Prolactin [Mass/Vol] 3.20 ng/mL 3.34-26.72 [facility] RBC Auto (Bld) [#/Vol]Ordere d By: Nahun Romero on 03-28-2023 RBC (Bld) [#/Vol] 4.12 10*6/uL 3.60-5.00 [facility] Thyrotropin [Units/volume] i n Serum or PlasmaOrdered By: Nahun Romero on 03-28-2023 TSH Qn 1.31 m[IU]/L 0.45-5.33 [facility] WBC Auto (Bld) [#/Vol]Ordere d By: Nahun Romero on 03-28-2023 WBC (Bld) [#/Vol] 4.1 10*3/uL 3.8-11.6 [facility] US PREG TVon 01-20-2023 US PREG [...] KENNEDY LEHMAN Date: 2023-01-19 23:22 Normal [facility] CBC AUTO DIFFon 01-17-2023 BASO # 0.0 103/ul Normal 0.0-0.1 [facility] Comment on above: Performed By: #### C MP, LIPA, NAHUN #### [facility] [address] [address] [address] Lester Yen Basophils/100 WBC (Bld) 1.1 % Normal 0.2-2.0 [facility] Comment on above: Performed By: #### C MP, LIPA, NAHUN #### [facility] [address] [address] [address] Lester Yen EO # 0.2 103/ul Normal 0.0-0.7 [facility] Comment on above: Performed By: #### C MP, LIPA, NAHUN #### [facility] [address] [address] [address] Lester Yen Eosinophils/100 WBC (Bld) 5.4 % Normal 0.9-7.0 [facility] Comment on above: Performed By: #### C MP, LIPA, NAHUN #### [facility] [address] [address] [address] Lester Yen Erythrocyte distribution width (RBC) [Ratio] 12.4 % Normal 11.0-15.0 [facility] Comment on above: Performed By: #### C ANJU PULIDO AMY #### [facility] [address] [place] [address] Dr. Lester Yen Hematocrit (Bld) [Volume fraction] 37.7 % Normal 36.0-48.0 [facility] Comment on above: Performed By: #### C ANJU PULIDO, NAHUN #### [facility] [address] [place] [address] Dr. Lester Yen Hemoglobin (Bld) [Mass/Vol] 13.2 g/dL Normal 12.0-16.0 [facility] Comment on above: Performed By: #### C ANJU PULIDO, NAHUN #### [facility] [address] [place] [address] Dr. Lester Yen IG # 0.01 10e3/ul Normal 0.00-0.03 [facility] Comment on above: Performed By: #### C ANJU PULIDO, NAHUN #### [facility] [address] [place] [address] Dr. Lester Yen IG % 0.3 % Normal 0.0-0.5 [facility] Comment on above: Performed By: #### C ANJU PULIDO, NAHUN #### [facility] [address] [place] [address] Dr. Lester Yen LYMPH # 1.1 103/ul Critically low 1.2-3.8 [facility] Comment on above: Performed By: #### C BECKI PULIDOA, NAHUN #### [facility] [address] [place] [address] Dr. Lester Yen Lymphocytes/100 WBC (Bld) 28.3 % Normal 20.5-60.0 [facility] Comment on above: Performed By: #### C BECKI PULIDOA, NAHUN #### [facility] [address] [place] [address] Dr. Lester Yen MANUAL DIFF REQ NO Normal [facility] Comment on above: Performed By: #### C BECKI PULIDOA, NAHUN #### [facility] [address] [place] [address] Dr. Lester Yen MCH (RBC) [Entitic mass] 31.5 pg Normal 26.7-34.0 [facility] Comment on above: Performed By: #### C MP, LIPA, NAHUN #### [facility] [address] [place] [address] Dr. Lester Yen MCHC (RBC) [Mass/Vol] 35.0 g/dL Normal 29.9-35.2 [facility] Comment on above: Performed By: #### C MP, LIPA, NAHUN #### [facility] [address] [place] [address] Dr. Lester Yen MCV (RBC) [Entitic vol] 90.0 fL Normal 81.0-99.0 [facility] Comment on above: Performed By: #### C MP, LIPA, NAHUN #### [facility] [address] [place] [address] Dr. Lester Yen MONO # 0.3 103/ul Normal 0.3-0.8 [facility] Comment on above: Performed By: #### C MP, LIPA, NAHUN #### [facility] [address] [place] [address] Dr. Lester Yen Monocytes/100 WBC (Bld) 9.2 % Normal 1.7-12.0 [facility] Comment on above: Performed By: #### C MP, LIPA, NAHUN #### [facility] [address] [place] [address] Dr. Lester Yen NEUT # 2.1 103/ul Normal 1.4-6.5 [facility] Comment on above: Performed By: #### C MP, LIPA, NAHUN #### [facility] [address] [place] [address] Dr. Lester Yen Neutrophils/100 WBC (Bld) 55.7 % Normal 43.0-75.0 [facility] Comment on above: Performed By: #### C MP, LIPA, NAHUN #### [facility] [address] [place] [address] Dr. Lester Yen Platelet mean volume (Bld) [Entitic vol] 9.2 fL Critically low 9.5-13.5 [facility] Comment on above: Performed By: #### C ANJU PULIDO AMY #### [facility] [address] [address] [address] Lester Yen PLT 209 103/ul Normal 150-450 [facility] Comment on above: Performed By: #### C ANJU PULIDO AMY #### [facility] [address] [address] [address] Lester Yen RBC 4.19 106/ul Critically low 4.20-5.40 [facility] Comment on above: Performed By: #### C ANJU PULIDO AMY #### [facility] [address] [address] [address] Lester Yen WBC 3.7 103/ul Critically low 4.0-11.0 [facility] Comment on above: Performed By: #### C ANJU PULIDO AMY #### [facility] [address] [address] [address] Lester Yen TYPE AND SCREENon 01-17-2023 TYPE AND SCREEN Negative Normal [facility] Comment on above: Performed By: #### C ANJU PULIDO AMY #### [facility] [address] [place] [address] Dr. Lester Yen Alanine aminotransferase [En zymatic activity/volume] in Serum or PlasmaOrdered By: Monika Camarillo on 01-03-2023 ALT [Catalytic activity/Vol] 13 U/L 7-52 [facility] Albumin [Mass/volume] in Ser um or Plasma by Bromocresol green (BCG) dye binding methoOrdered By: Monika Camarillo on 01-03-2023 Albumin BCG dye [Mass/Vol] 4.7 g/dL 3.5-5.7 [facility] Alkaline phosphatase [Enzyma tic activity/volume] in Serum or PlasmaOrdered By: Monika Camarillo on 01-03-2023 ALP [Catalytic activity/Vol] 47 U/L 34-104 [facility] Aspartate aminotransferase [ Enzymatic activity/volume] in Serum or PlasmaOrdered By: Monika [place] on 01-03-2023 AST [Catalytic activity/Vol] 15 U/L 13-39 [facility] Basophils Auto (Bld) [#/Vol] Ordered By: Monika Camarillo on 01-03-2023 Basophils (Bld) [#/Vol] 0.0 10*3/uL 0.0-0.2 [facility] Basophils/100 WBC Auto (Bld) Ordered By: Monika Camarillo on 01-03-2023 Basophils/100 WBC (Bld) 0.3 % . [facility] Bilirubin Test strip Ql (U)O rdered By: Monika Camarillo on 01-03-2023 Bilirubin Ql (U) Negative Negative [facility] Bilirubin.total [Mass/volume ] in Serum or PlasmaOrdered By: Monika Camarillo on 01-03-2023 Bilirubin [Mass/Vol] 0.8 mg/dL 0.3-1.0 [facility] Calcium [Mass/volume] in Ser um or PlasmaOrdered By: Monika Camarillo on 01-03-2023 Calcium [Mass/Vol] 9.2 mg/dL 8.6-10.3 [facility] Carbon dioxide, total [Moles /volume] in Serum or PlasmaOrdered By: Monika Camarillo on 01-03-2023 CO2 [Moles/Vol] 23.8 mmol/L 21.0-31.0 [facility] Chloride [Moles/volume] in S mehdi or PlasmaOrdered By: Monika Camarillo on 01-03-2023 Chloride [Moles/Vol] 105 mmol/L 98-107 [facility] Choriogonadotropin.beta subu nit [Units/volume] in Serum or PlasmaOrdered By: Monika Camarillo on 01-03-2023 [place] [address].00 m[IU]/mL [facility] Comment on above: Approximate Approxim ate hCG Gestational Age Range (mIU/ml) (weeks)0.2-1 5-50 1-2 50-500 2-3 100-5,000 3-4 500-10,000 4-5 1,000-50,000 5-6 10,000-100,000 6-8 15,000-200,000 8-12 10,000-100,000 Color Auto (U)Ordered By: Po Camarillo on 01-03-2023 Color (U) Yellow Yellow [facility] Creatinine [Mass/volume] in Serum or PlasmaOrdered By: Monika Camarillo on 01-03-2023 Creatinine [Mass/Vol] 0.71 mg/dL 0.60-1.20 [facility] ER URINE PROFILEon 3 Bilirubin Ql (U) Negative Normal NEGATIVE [facility] Comment on above: Performed By: #### E RUR #### [facility] [address] [place] [address] Dr. Lester Yen Clarity (U) CLEAR Normal CLEAR [facility] Comment on above: Performed By: #### E RUR #### [facility] [address] [place] [address] Dr. Lester Yen Color (U) LT. YELLOW Normal YELLOW [facility] Comment on above: Performed By: #### E RUR #### [facility] [address] [place] [address] Dr. Lester LEA A micrscopic examination will be performed if indicated. Normal [facility] Comment on above: Performed By: #### E RUR #### [facility] [address] [place] [address] Dr. Lester Yen Glucose Ql (U) Negative Normal NEGATIVE [facility] Comment on above: Performed By: #### E RUR #### [facility] [address] [place] [address] Dr. Lester Yen Hemoglobin Ql (U) Negative Normal NEGATIVE [facility] Comment on above: Performed By: #### E RUR #### [facility] [address] [place] [address] Dr. Lester Yen Ketones Ql (U) 15 mg/dl Abnormal NEGATIVE [facility] Comment on above: Performed By: #### E RUR #### [facility] [address] [place] [address] Dr. Lester Yen LEUKOCYTES Negative Normal NEGATIVE [facility] Comment on above: Performed By: #### E RUR #### [facility] [address] [place] [address] Dr. Lester Yen Nitrite Ql (U) Negative Normal NEGATIVE [facility] Comment on above: Performed By: #### E RUR #### [facility] [address] [place] [address] Dr. Lester Yen pH (U) 6.0 [pH] Normal 5-9 [facility] Comment on above: Performed By: #### E RUR #### [facility] [address] [place] [address] Dr. Lester Yen SPEC GRAVITY <=1.005 Abnormal 1.005-<=1.02 5 [facility] Comment on above: Performed By: #### E RUR #### [facility] [address] [place] [address] Dr. Lester Yen UA PROTEIN Negative Normal NEGATIVE/ TRACE [facility] Comment on above: Performed By: #### E RUR #### [facility] [address] [place] [address] Dr. Lester Yen UR MICRO IND NOT INDICATED Normal [facility] Comment on above: Performed By: #### E RUR #### [facility] [address] [place] [address] Dr. Lester Yen Urobilinogen Qn (U) 0.2 {Olivier'U}/dL Normal 0.2 - 1. 0 [facility] Comment on above: Performed By: #### E RUR #### [facility] [address] [place] [address] Dr. Lester Yen Eosinophils Auto (Bld) [#/Vo l]Ordered By: Monika Camarillo on 01-03-2023 Eosinophils (Bld) [#/Vol] 0.3 10*3/uL 0.0-0.45 [facility] Eosinophils/100 WBC Auto (Bl d)Ordered By: Monika Camarillo on 01-03-2023 Eosinophils/100 WBC (Bld) 5.4 % . [facility] Erythrocyte distribution wid th Auto (RBC) [Ratio]Ordered By: Monika Camarillo on 01-03-2023 Erythrocyte distribution width (RBC) [Ratio] 12.7 % 11.9-15.3 [facility] Globulin Calc (S) [Mass/Vol] Ordered By: Monika [place]arillo on 01-03-2023 Globulin (S) [Mass/Vol] 2.1 g/dL [facility] Glucose [Mass/volume] in Ser um or PlasmaOrdered By: Monika [place]arillo on 01-03-2023 Glucose [Mass/Vol] 85 mg/dL 70-100 [facility] Comment on above: ADA recommended refe rence rangeRandom Glucose Reference Range is dependent on time and content of last meal. Glucose of more than 200 mg/dL in a nonstressed, ambulatory subject supports the diagnosis of Diabetes Mellitus. Hematocrit Auto (Bld) [Volum e fraction]Ordered By: Monika Camarillo on 01-03-2023 Hematocrit (Bld) [Volume fraction] 39.8 % 34.0-46.4 [facility] Hemoglobin [Mass/volume] in BloodOrdered By: Monika [place]arillo on 01-03-2023 Hemoglobin (Bld) [Mass/Vol] 13.4 g/dL 11.8-15.4 [facility] Ketones Auto test strip (U) [Mass/Vol]Ordered By: Monika Camarillo on 01-03-2023 Ketones (U) [Mass/Vol] Negative Negative [facility] Leukocytes [#/volume] correc ira for nucleated erythrocytes in Blood by Automated counOrdered By: Monika Camarillo on 01-03-2023 WBC corrected for nucl RBC Auto (Bld) [#/Vol] 5.7 10*3/uL 3.8-11.6 [facility] Lipase [Enzymatic activity/v olume] in Serum or PlasmaOrdered By: Monika Camarillo on 01-03-2023 Lipase [Catalytic activity/Vol] 17.0 U/L 11.0-82.0 [facility] Lymphocytes Auto (Bld) [#/Vo l]Ordered By: Monika Camarillo on 01-03-2023 Lymphocytes (Bld) [#/Vol] 0.9 10*3/uL 1.00-4.8 [facility] Lymphocytes/100 WBC Auto (Bl d)Ordered By: Monika [place]arillo on 01-03-2023 Lymphocytes/100 WBC (Bld) 15.2 % . [facility] MCH Auto (RBC) [Entitic mass ]Ordered By: Monika Camarillo on 01-03-2023 MCH (RBC) [Entitic mass] 31.0 pg 24.7-34.3 [facility] MCHC Auto (RBC) [Mass/Vol]Or dered By: Monika Camarillo on 01-03-2023 MCHC (RBC) [Mass/Vol] 33.6 g/dL 32.0-35.0 [facility] MCV Auto (RBC) [Entitic vol] Ordered By: Monika Camarillo on 01-03-2023 MCV (RBC) [Entitic vol] 92.2 fL 80-100 [facility] Monocyte distribution width [Entitic volume] in Blood by AutomatedOrdered By: Monika [place]ar[place] on 01-03-2023 Monocyte distribution width Auto (Bld) [Entitic vol] 17.53 % 0.00-20.00 [facility] Monocytes Auto (Bld) [#/Vol] Ordered By: Monika Camarillo on 01-03-2023 Monocytes (Bld) [#/Vol] 0.4 10*3/uL 0.0-0.8 [facility] Monocytes/100 WBC Auto (Bld) Ordered By: Monika [place]ar[place] on 01-03-2023 Monocytes/100 WBC (Bld) 6.5 % . [facility] Neutrophils Auto (Bld) [#/Vo l]Ordered By: Monika [place]ar[place] on 01-03-2023 Neutrophils (Bld) [#/Vol] 4.1 10*3/uL 1.8-7.7 [facility] Neutrophils/100 WBC Auto (Bl d)Ordered By: Monika [place]ar[place] on 01-03-2023 Neutrophils/100 WBC (Bld) 72.6 % . [facility] Nitrite Test strip Ql (U)Ord ered By: Monika [place]ar[place] on 01-03-2023 Nitrite Ql (U) Negative Negative [facility] No Panel InformationOrdered By: Monika Camarillo on 01-03-2023 Estimated GFR (CKD-EPI) > 60.0 mL/Min [facility] Creatinine Clearance (Chem 94.97 [facility] Nucleated erythrocytes [Pres ence] in Blood by Automated countOrdered By: Monika [place]arillo on 01-03-2023 Nucleated RBC Auto Ql (Bld) 0.1 /100{WBC} 0-0.5 [facility] Platelet mean volume Auto (B ld) [Entitic vol]Ordered By: Monika Camar[place] on 01-03-2023 Platelet mean volume (Bld) [Entitic vol] 7.5 fL 6.3-10.7 [facility] Platelets Auto (Bld) [#/Vol] Ordered By: Monika Camar[place] on 01-03-2023 Platelets (Bld) [#/Vol] 187 10*3/uL 150-450 [facility] Potassium [Moles/volume] in Serum or PlasmaOrdered By: Monika Camarillo on 01-03-2023 Potassium [Moles/Vol] 3.7 mmol/L 3.5-5.1 [facility] Protein Auto test strip (U) [Mass/Vol]Ordered By: Monika Camarillo on 01-03-2023 Protein (U) [Mass/Vol] Negative Negative [facility] Protein [Mass/volume] in Ser um or PlasmaOrdered By: Monika [place]ar[place] on 01-03-2023 Protein [Mass/Vol] 6.8 g/dL 6.4-8.9 [facility] RBC Auto (Bld) [#/Vol]Ordere d By: Monika Camarillo on 01-03-2023 RBC (Bld) [#/Vol] 4.32 10*6/uL 3.60-5.00 [facility] Serum or plasma albumin/glob ulin mass ratioOrdered By: Monika Camarillo on 01-03-2023 Albumin/Globulin [Mass ratio] 2.2 {ratio} [facility] Serum or plasma anion gap de terminationOrdered By: Monika [place]arillo on 01-03-2023 Anion gap [Moles/Vol] 10.9 mmol/L 6.0-15.0 [facility] Sodium [Moles/volume] in Ser um or PlasmaOrdered By: Monika Camarillo on 01-03-2023 Sodium [Moles/Vol] 136 mmol/L 136-145 [facility] Specific gravity Auto test s trip (U) [Rel density]Ordered By: Monika [place]ar[place] on 01-03-2023 Specific gravity (U) [Rel density] 1.005 1.001-1.030 [facility] US PREG TVon 01-03-2023 US PREG TV [...] by: LOPEZ ZARAGOZA Date: 2023-01-03 21:49 Normal [facility] Urea nitrogen [Mass/volume] in Serum or PlasmaOrdered By: Monika [place]arillo on 01-03-2023 Urea nitrogen [Mass/Vol] 9 mg/dL 7-25 [facility] Urine clarity by refractomet ry automatedOrdered By: Monika [place]arillo on 01-03-2023 Clarity Refractometry automated (U) Clear Clear [facility] Urine glucose measurement by automated test strip (mass/volume)Ordered By: Monika Camarillo on 01-03-2023 Glucose Auto test strip (U) [Mass/Vol] Normal mg/dL Normal [facility] Urine hemoglobin detection b y automated test stripOrdered By: Monika [place]ar[place] on 01-03-2023 Hemoglobin Auto test strip Ql (U) Negative Negative [facility] Urine leukocyte esterase det ection by automated test stripOrdered By: Monika [place]ar[place] on 01-03-2023 Leukocyte esterase Auto test strip Ql (U) Negative Negative [facility] Urobilinogen Auto test strip (U) [Mass/Vol]Ordered By: Monika [place]ar[place] on 01-03-2023 Urobilinogen (U) [Mass/Vol] Normal mg/dL Normal [facility] WBC Auto (Bld) [#/Vol]Ordere d By: Monika [place]ar[place] on 01-03-2023 WBC (Bld) [#/Vol] 5.7 10*3/uL 3.8-11.6 [facility] pH Auto test strip (U)Ordere d By: Monika [place]ar[place] on 01-03-2023 pH (U) 6.5 [pH] 5.0-9.0 [facility] US PREG TVon 12-26-2022 US PREG TV [...] KENNEDY LEHMAN Date: 2022-12-26 15:07 Normal [facility] PREG QUANT HCGon 12-25-2022 HCG QUANT 14681 mIU/mL Normal [facility] Comment on above: Performed By: #### P REGQNT #### [facility] [address] [address] [address] Lester Yen HCG RANGE SEE BELOW Normal [facility] Comment on above: Result Comment: 5-50 0.2-1 WEEK 50-500 1-2 WEEKS 100-5,000 2-3 WEEKS 500-10,000 3-4 WEEKS 1,000-50,000 4-5 WEEKS 10,000-100,000 5-6 WEEKS 15,000-200,000 6-8 WEEKS 10,000-100,000 2-3 MONTHS Performed By: #### P REGQNT #### [facility] [address] [address] [address] Lester Yen Albumin [Mass/volume] in Ser um or PlasmaOrdered By: Monika [place]arillo on 08-02-2022 Albumin [Mass/Vol] 3.7 g/dL 3.2-5.5 [facility] Basophils Auto (Bld) [#/Vol] Ordered By: Monika Camarillo on 08-02-2022 Basophils (Bld) [#/Vol] 0.0 10*3/uL 0.0-0.2 [facility] Basophils/100 WBC Auto (Bld) Ordered By: Monika Camarillo on 08-02-2022 Basophils/100 WBC (Bld) 0.8 % . [facility] Bilirubin Test strip Ql (U)O rdered By: Monika Camarillo on 08-02-2022 Bilirubin Ql (U) Negative Negative [facility] Color Auto (U)Ordered By: Po Camarillo on 08-02-2022 Color (U) Yellow Yellow [facility] Creatinine and Glomerular fi ltration rate.predicted panel (S/P/Bld)Ordered By: Monika Camarillo on 08-02-2022 Creatinine [Mass/Vol] 0.86 mg/dL 0.44-1.03 [facility] Eosinophils Auto (Bld) [#/Vo l]Ordered By: Monika Camarillo on 08-02-2022 Eosinophils (Bld) [#/Vol] 0.4 10*3/uL 0.0-0.45 [facility] Eosinophils/100 WBC Auto (Bl d)Ordered By: Monika Camarillo on 08-02-2022 Eosinophils/100 WBC (Bld) 12.8 % . [facility] Erythrocyte distribution wid th Auto (RBC) [Ratio]Ordered By: Monika Camarillo on 08-02-2022 Erythrocyte distribution width (RBC) [Ratio] 12.7 % 11.9-15.3 [facility] Estimated glomerular filtrat ion rate (GFR) non- AmericanOrdered By: Monika Camarillo on 08-02-2022 GFR/1.73 sq M.predicted among non-blacks MDRD (S/P/Bld) [Vol rate/Area] > 60 mL/Min [facility] Globulin Calc (S) [Mass/Vol] Ordered By: Monika Camarillo on 08-02-2022 Globulin (S) [Mass/Vol] 2.4 g/dL [facility] HCG ( test) IA.rapi d Ql (U)Ordered By: Monika Camarillo on 08-02-2022 HCG ( test) Ql (U) Negative [facility] Hematocrit Auto (Bld) [Volum e fraction]Ordered By: Monika Camarillo on 08-02-2022 Hematocrit (Bld) [Volume fraction] 38.4 % 34.0-46.4 [facility] Hemoglobin [Mass/volume] in BloodOrdered By: Monika Camarillo on 08-02-2022 Hemoglobin (Bld) [Mass/Vol] 13.1 g/dL 11.8-15.4 [facility] Ketones Auto test strip (U) [Mass/Vol]Ordered By: Monika Camarillo on 08-02-2022 Ketones (U) [Mass/Vol] Negative Negative Fi [facility] - Hematology and Cell countsOrdered By: Monika Camarillo on 08-02-2022 Nucleated RBC/100 WBC (Bld) [Ratio] 0.1 % 0-0.5 [facility] Leukocytes [#/volume] in Blo od by Automated countOrdered By: Monika Camarillo on 08-02-2022 WBC (Bld) [#/Vol] 3.4 10*3/uL 4.5-11.0 [facility] Lymphocytes Auto (Bld) [#/Vo l]Ordered By: Monika Camarillo on 08-02-2022 Lymphocytes (Bld) [#/Vol] 1.0 10*3/uL 1.00-4.8 [facility] Lymphocytes/100 WBC Auto (Bl d)Ordered By: Moniak Camarillo on 08-02-2022 Lymphocytes/100 WBC (Bld) 28.2 % . [facility] MCH Auto (RBC) [Entitic mass ]Ordered By: Monika Camarillo on 08-02-2022 MCH (RBC) [Entitic mass] 31.1 pg 24.7-34.3 [facility] MCHC Auto (RBC) [Mass/Vol]Or dered By: Monika Camarillo on 08-02-2022 MCHC (RBC) [Mass/Vol] 34.1 g/dL 32.0-35.0 [facility] MCV Auto (RBC) [Entitic vol] Ordered By: Monika Camarillo on 08-02-2022 MCV (RBC) [Entitic vol] 91.4 fL 80-100 [facility] Monocytes Auto (Bld) [#/Vol] Ordered By: Monika Camarillo on 08-02-2022 Monocytes (Bld) [#/Vol] 0.3 10*3/uL 0.0-0.8 [facility] Monocytes/100 WBC Auto (Bld) Ordered By: Monika Camarillo on 08-02-2022 Monocytes/100 WBC (Bld) 7.7 % . [facility] Neutrophils Auto (Bld) [#/Vo l]Ordered By: Monika Camarillo on 08-02-2022 Neutrophils (Bld) [#/Vol] 1.7 10*3/uL 1.8-7.7 [facility] Neutrophils/100 WBC Auto (Bl d)Ordered By: Monika Camarillo on 08-02-2022 Neutrophils/100 WBC (Bld) 50.5 % . [facility] Nitrite Test strip Ql (U)Ord ered By: Monika Camarillo on 08-02-2022 Nitrite Ql (U) Negative Negative [facility] No Panel InformationOrdered By: Monika Camarillo on 08-02-2022 Estimated GFR () > 60 mL/Min [facility] Comment on above: GFR estimated refere nce range: According to KDOQI guidelines, <60 ml/min/1.73m2 is sufficient to diagnose a patient with chronic kidney disease. Pharmacy Creatinine Clearance (Chem 79.12 [facility] Platelet mean volume Auto (B ld) [Entitic vol]Ordered By: Monika Camarillo on 08-02-2022 Platelet mean volume (Bld) [Entitic vol] 7.8 fL 6.3-10.7 [facility] Platelets Auto (Bld) [#/Vol] Ordered By: Monika Camarillo on 08-02-2022 Platelets (Bld) [#/Vol] 203 10*3/uL 150-450 [facility] Protein Auto test strip (U) [Mass/Vol]Ordered By: Monika Camarillo on 08-02-2022 Protein (U) [Mass/Vol] Negative Negative Fi [facility] Protein [Mass/volume] in Ser um or PlasmaOrdered By: Monika Camarillo on 08-02-2022 Protein [Mass/Vol] 6.1 g/dL 6.1-7.9 [facility] RBC Auto (Bld) [#/Vol]Ordere d By: Monika Camarillo on 08-02-2022 RBC (Bld) [#/Vol] 4.20 10*6/uL 3.60-5.00 [facility] Serum or plasma alanine gaspar otransferase measurement without P-5'-P (enzymatic activiOrdered By: Monika Camarillo on 08-02-2022 ALT No additional P-5'-P [Catalytic activity/Vol] 13 U/L 1060 [facility] Serum or plasma albumin/glob ulin mass ratioOrdered By: Monika Camarillo on 08-02-2022 Albumin/Globulin [Mass ratio] 1.5 {ratio} [facility] Serum or plasma alkaline radames sphatase measurement (enzymatic activity/volume)Ordered By: Monika Camarillo on 08-02-2022 ALP [Catalytic activity/Vol] 46 U/L 32-92 [facility] Serum or plasma anion gap de terminationOrdered By: Monika Camarillo on 08-02-2022 Anion gap [Moles/Vol] 11.0 mmol/L 6.0-15.0 [facility] Serum or plasma aspartate am inotransferase measurement (enzymatic activity/volume)Ordered By: Monika Camarillo on 08-02-2022 AST [Catalytic activity/Vol] 16 U/L 10-42 [facility] Serum or plasma calcium unique urement (mass/volume)Ordered By: Monika Camarillo on 08-02-2022 Calcium [Mass/Vol] 9.2 mg/dL 8.2-10.2 [facility] Serum or plasma chloride debbie surement (moles/volume)Ordered By: Monika Camarillo on 08-02-2022 Chloride [Moles/Vol] 104 mmol/L 95-114 [facility] Serum or plasma glucose unique urement (mass/volume)Ordered By: Monika Camarillo on 08-02-2022 Glucose [Mass/Vol] 82 mg/dL 70-100 [facility] Comment on above: ADA recommended refe rence rangeRandom Glucose Reference Range is dependent on time and content of last meal. Glucose of more than 200 mg/dL in a nonstressed, ambulatory subject supports the diagnosis of Diabetes Mellitus. Serum or plasma potassium me asurement (moles/volume)Ordered By: Monika Camarillo on 08-02-2022 Potassium [Moles/Vol] 3.4 mmol/L 3.5-5.1 [facility] Serum or plasma sodium measu rement (moles/volume)Ordered By: Monika Camarillo on 08-02-2022 Sodium [Moles/Vol] 137 mmol/L 136-146 [facility] Serum or plasma total biliru bin measurement (mass/volume)Ordered By: Monika Camarillo on 08-02-2022 Bilirubin [Mass/Vol] 0.6 mg/dL 0.3-1.2 [facility] Serum or plasma total carbon dioxide measurement (moles/volume)Ordered By: Monika Camarillo on 08-02-2022 CO2 [Moles/Vol] 25.4 mmol/L 22.0-30.0 [facility] Serum or plasma urea nitroge n measurement (mass/volume)Ordered By: Monika Camarillo on 08-02-2022 Urea nitrogen [Mass/Vol] 8 mg/dL 9-23 [facility] Specific gravity Auto test s trip (U) [Rel density]Ordered By: Monika Camarillo on 08-02-2022 Specific gravity (U) [Rel density] 1.009 1.001-1.030 [facility] Urine clarity by refractomet ry automatedOrdered By: Monika Camarillo on 08-02-2022 Clarity Refractometry automated (U) Clear Clear [facility] Urine glucose measurement by automated test strip (mass/volume)Ordered By: Monika Camarillo on 08-02-2022 Glucose Auto test strip (U) [Mass/Vol] Normal mg/dL Normal [facility] Urine hemoglobin detection b y automated test stripOrdered By: Monika Camarillo on 08-02-2022 Hemoglobin Auto test strip Ql (U) Negative Negative [facility] Urine lactic acid measuremen tOrdered By: Monika Camarillo on 08-02-2022 Lactate (U) [Moles/Vol] 1.4 mmol/L 0.5-2.2 [facility] Urine leukocyte esterase det ection by automated test stripOrdered By: Monika Camarillo on 08-02-2022 Leukocyte esterase Auto test strip Ql (U) Negative Negative [facility] Urobilinogen Auto test strip (U) [Mass/Vol]Ordered By: Monika Camarillo on 08-02-2022 Urobilinogen (U) [Mass/Vol] Normal mg/dL Normal [facility] pH Auto test strip (U)Ordere d By: Monika Camarillo on 08-02-2022 pH (U) 8.0 [pH] 5.0-9.0 [facility] CBC AUTO DIFFon 07-29-2022 BASO # 0.0 103/ul Normal 0.0-0.1 [facility] Comment on above: Performed By: #### C BC #### [facility] [address] [place] [address] Dr. Lester Yen Basophils/100 WBC (Bld) 1.1 % Normal 0.2-2.0 [facility] Comment on above: Performed By: #### C BC #### [facility] [address] [place] [address] Dr. Lester Yen EO # 0.4 103/ul Normal 0.0-0.7 [facility] Comment on above: Performed By: #### C BC #### [facility] [address] [place] [address] Dr. Lester Yen Eosinophils/100 WBC (Bld) 10.8 % Critically high 0.9-7.0 [facility] Comment on above: Performed By: #### C BC #### [facility] [address] [place] [address] Dr. Lester Yen Erythrocyte distribution width (RBC) [Ratio] 12.0 % Normal 11.0-15.0 [facility] Comment on above: Performed By: #### C BC #### [facility] [address] [place] [address] Dr. Lester Yen Hematocrit (Bld) [Volume fraction] 36.3 % Normal 36.0-48.0 [facility] Comment on above: Performed By: #### C BC #### [facility] [address] [place] [address] Dr. Lester Yen Hemoglobin (Bld) [Mass/Vol] 12.4 g/dL Normal 12.0-16.0 [facility] Comment on above: Performed By: #### C BC #### [facility] [address] [place] [address] Dr. Lester Yen IG # 0.00 10e3/ul Normal 0.00-0.03 [facility] Comment on above: Performed By: #### C BC #### [facility] [address] [place] [address] Dr. Lester Yen IG % 0.0 % Normal 0.0-0.5 [facility] Comment on above: Performed By: #### C BC #### [facility] [address] [place] [address] Dr. Lester Yen LYMPH # 1.6 103/ul Normal 1.2-3.8 [facility] Comment on above: Performed By: #### C BC #### [facility] [address] [place] [address] Dr. Lester Yen Lymphocytes/100 WBC (Bld) 41.6 % Normal 20.5-60.0 [facility] Comment on above: Performed By: #### C BC #### [facility] [address] [place] [address] Dr. Lester Yen MANUAL DIFF REQ NO Normal [facility] Comment on above: Performed By: #### C BC #### [facility] [address] [address] [address] Lester Yen MCH (RBC) [Entitic mass] 31.9 pg Normal 26.7-34.0 [facility] Comment on above: Performed By: #### C BC #### [facility] [address] [address] [address] Lester Yen MCHC (RBC) [Mass/Vol] 34.2 g/dL Normal 29.9-35.2 [facility] Comment on above: Performed By: #### C BC #### [facility] [address] [place] [address] Dr. Lester Yen MCV (RBC) [Entitic vol] 93.3 fL Normal 81.0-99.0 [facility] Comment on above: Performed By: #### C BC #### [facility] [address] [place] [address] Dr. Lester Yen MONO # 0.3 103/ul Normal 0.3-0.8 [facility] Comment on above: Performed By: #### C BC #### [facility] [address] [place] [address] Dr. Lester Yen Monocytes/100 WBC (Bld) 8.2 % Normal 1.7-12.0 [facility] Comment on above: Performed By: #### C BC #### [facility] [address] [place] [address] Dr. Lester Yen NEUT # 1.5 103/ul Normal 1.4-6.5 [facility] Comment on above: Performed By: #### C BC #### [facility] [address] [place] [address] Dr. Lester Yen Neutrophils/100 WBC (Bld) 38.3 % Critically low 43.0-75.0 [facility] Comment on above: Performed By: #### C BC #### [facility] [address] [place] [address] Dr. Lester Yen Platelet mean volume (Bld) [Entitic vol] 9.3 fL Critically low 9.5-13.5 [facility] Comment on above: Performed By: #### C BC #### [facility] [address] [address] [address] Lester Yen PLT 184 103/ul Normal 150-450 [facility] Comment on above: Performed By: #### C BC #### [facility] [address] [place] [address] Dr. Lester Yen RBC 3.89 106/ul Critically low 4.20-5.40 [facility] Comment on above: Performed By: #### C BC #### [facility] [address] [address] [address] Lester Yen WBC 3.8 103/ul Critically low 4.0-11.0 [facility] Comment on above: Performed By: #### C BC #### [facility] [address] [place] [address] Dr. Lester Yen Covid-19 PCR ([facility])on 07-07 SARS-CoV-2 (COVID-19) RNA JOSE+probe Ql (Unsp spec) Not detected Normal NOT DETECTED [facility] Comment on above: Result Comment: When diagnostic [...] for this test is supported by the [place] of Health and Human Service's declaration that [...] By: #### C ANJU PULIDO AMY #### [facility] [address] [place] [address] Dr. Lester Yen PREG QUANT HCGon 07-29-2022 HCG QUANT 1 mIU/mL Normal [facility] Comment on above: Performed By: #### C ANJU PULIDO AMY #### [facility] [address] [address] [address] Lester Yen HCG RANGE SEE BELOW Normal [facility] Comment on above: Result Comment: 5-50 0.2-1 WEEK 50-500 1-2 WEEKS 100-5,000 2-3 WEEKS 500-10,000 3-4 WEEKS 1,000-50,000 4-5 WEEKS 10,000-100,000 5-6 WEEKS 15,000-200,000 6-8 WEEKS 10,000-100,000 2-3 MONTHS Performed By: #### C ANJU PULIDO AMY #### [facility] [address] [address] [address] Lester Yen HIV 1 and HIV-2 antibody ass ay with HIV-1 p24 antigen detectionOrdered By: Dominic Hester on 06-18-2022 HIV 1+2 Ab+HIV1 p24 Ag IA Ql Non-Reactive Non Reactive [facility] Comment on above: HIV NegativeHIV-1/HI V-2 antibodies and HIV-1 p24 antigen were NOTdetected. There is no laboratory evidence of HIV infection.Performed at: [address] [id number] Director: Lebron Manzo PhD, Phone: [phone] Hepatitis B virus surface Ag [Presence] in Serum or Plasma by ImmunoassayOrdered By: Dominic Hester on 06-18-2022 HBV surface Ag IA Ql Negative Negative [facility] Hepatitis C virus RNA [Units /volume] (viral load) in Serum or Plasma by JOSE with probOrdered By: Dominic Hester on 06-18-2022 HCV RNA JOSE+probe Qn N/A [facility] Hepatitis C virus RNA [log u nits/volume] (viral load) in Serum or Plasma by JOSE withOrdered By: Dominic Hester on 06-18-2022 HCV RNA JOSE+probe [Log units/Vol] N/A [facility] No Panel InformationOrdered By: Dominic Hester on 06-18-2022 Hepatitis A IgM Antibody Negative Negative [facility] Hepatitis B Core IgM Antibody Negative Negative [facility] Hepatitis C Interpretation See comment . [facility] Comment on above: NegativeNot infected with HCV, unless recent infection issuspected or other evidence exists to indicate HCVinfection.Performed at: CB - [facility] [address] [id number] Director: Lebron Manzo PhD, Phone: [phone] Hepatitis C RNA Quantitative N/A [facility] Reagin Ab [Presence] in Seru m by RPROrdered By: Dominic Hester on 06-18-2022 Reagin Ab RPR Ql (S) Non-Reactive Non Reactive [facility] Comment on above: Performed at: CB - [facility] [address] [id number] Director: Lebron Manzo PhD, Phone: [phone] Serum or plasma hepatitis C virus antibody signal/cutoff ratio by immunoassay (relatiOrdered By: Dominic Hester on 06-18-2022 HCV Ab Signal/Cutoff IA [Rel units/Vol] <0.1 s/co ratio 0.0-0.9 [facility] CHLAMYDIA/GONOCOCCUS JOSE (SW AB/URINE/PAPon 06-04-2022 Chlamydia trachomatis, JOSE Negative Normal Negative [facility] Comment on above: Performed By: #### C T/NGNA #### [facility] [address] [place] [address] Dr. Lester Yen Neisseria gonorrhoeae, JOSE Negative Normal Negative [facility] Comment on above: Performed By: #### C T/NGNA #### [facility] [address] [address] [address] Lester Yen VAGINITIS/VAGINOSIS DNA PROB Davide 06-02-2022 Tigist species Negative Normal Negative [facility] Comment on above: Performed By: #### C MP, LIPA, NAHUN #### [facility] [address] [address] [address] Lester Yen Gardnerella vaginalis Negative Normal Negative [facility] Comment on above: Performed By: #### C MP, LIPA, NAHUN #### [facility] [address] [place] [address] Dr. Lester Yen Trichomonas vaginalis Negative Normal Negative [facility] Comment on above: Performed By: #### C ANJU PULIDO, NAHUN #### [facility] [address] [address] [address] Lester Yen AMYLASEon 05-28-2022 Amylase [Catalytic activity/Vol] 48 U/L Normal 25-115 [facility] Comment on above: Performed By: #### C ANJU PULIDO, NAHUN #### [facility] [address] [place] [address] Dr. Lester Yen CBC AUTO DIFFon 05-28-2022 BASO # 0.0 103/ul Normal 0.0-0.1 [facility] Comment on above: Performed By: #### C BC #### [facility] [address] [place] [address] Dr. Lester Yen Basophils/100 WBC (Bld) 0.5 % Normal 0.2-2.0 [facility] Comment on above: Performed By: #### C BC #### [facility] [address] [place] [address] Dr. Lester Yen EO # 0.3 103/ul Normal 0.0-0.7 [facility] Comment on above: Performed By: #### C BC #### [facility] [address] [place] [address] Dr. Lester Yen Eosinophils/100 WBC (Bld) 5.7 % Normal 0.9-7.0 [facility] Comment on above: Performed By: #### C BC #### [facility] [address] [place] [address] Dr. Lesetr Yen Erythrocyte distribution width (RBC) [Ratio] 12.6 % Normal 11.0-15.0 [facility] Comment on above: Performed By: #### C BC #### [facility] [address] [place] [address] Dr. Lester Yen Hematocrit (Bld) [Volume fraction] 39.5 % Normal 36.0-48.0 [facility] Comment on above: Performed By: #### C BC #### [facility] [address] [address] [address] Lester Yen Hemoglobin (Bld) [Mass/Vol] 13.2 g/dL Normal 12.0-16.0 [facility] Comment on above: Performed By: #### C BC #### [facility] [address] [address] [address] Lester Yen IG # 0.01 10e3/ul Normal 0.00-0.03 [facility] Comment on above: Performed By: #### C BC #### [facility] [address] [address] [address] Lester Yen IG % 0.2 % Normal 0.0-0.5 [facility] Comment on above: Performed By: #### C BC #### [facility] [address] [address] [address] Lester Yen LYMPH # 1.1 103/ul Critically low 1.2-3.8 [facility] Comment on above: Performed By: #### C BC #### [facility] [address] [address] [address] Lester Yen Lymphocytes/100 WBC (Bld) 18.9 % Critically low 20.5-60.0 [facility] Comment on above: Performed By: #### C BC #### [facility] [address] [address] [address] Lester Yen MANUAL DIFF REQ NO Normal [facility] Comment on above: Performed By: #### C BC #### [facility] [address] [address] [address] Lester Yen MCH (RBC) [Entitic mass] 31.1 pg Normal 26.7-34.0 [facility] Comment on above: Performed By: #### C BC #### [facility] [address] [address] [address] Lester Yen MCHC (RBC) [Mass/Vol] 33.4 g/dL Normal 29.9-35.2 [facility] Comment on above: Performed By: #### C BC #### [facility] [address] [address] [address] Lester Yen MCV (RBC) [Entitic vol] 93.2 fL Normal 81.0-99.0 [facility] Comment on above: Performed By: #### C BC #### [facility] [address] [address] [address] Lester Yen MONO # 0.5 103/ul Normal 0.3-0.8 [facility] Comment on above: Performed By: #### C BC #### [facility] [address] [address] [address] Lester Yen Monocytes/100 WBC (Bld) 8.4 % Normal 1.7-12.0 [facility] Comment on above: Performed By: #### C BC #### [facility] [address] [place] [address] Dr. Lester Yen NEUT # 3.9 103/ul Normal 1.4-6.5 [facility] Comment on above: Performed By: #### C BC #### [facility] [address] [place] [address] Dr. Lester Yen Neutrophils/100 WBC (Bld) 66.3 % Normal 43.0-75.0 [facility] Comment on above: Performed By: #### C BC #### [facility] [address] [place] [address] Dr. Lester Yen Platelet mean volume (Bld) [Entitic vol] 9.8 fL Normal 9.5-13.5 [facility] Comment on above: Performed By: #### C BC #### [facility] [address] [address] [address] Lester Yen PLT 186 103/ul Normal 150-450 [facility] Comment on above: Performed By: #### C BC #### [facility] [address] [address] [address] Lester Yen RBC 4.24 106/ul Normal 4.20-5.40 [facility] Comment on above: Performed By: #### C BC #### [facility] [address] [place] [address] [address] [address] Lester Yen WBC 5.9 103/ul Normal 4.0-11.0 [facility] Comment on above: Performed By: #### C BC #### [facility] [address] [place] [address] ABD/PELV W CONon [...] TOR JIN Date: 2022-05-28 12:57 Normal [facility] ER URINE PROFILEon 2 Bilirubin Ql (U) Negative Normal NEGATIVE [facility] Comment on above: Performed By: #### E RUR, PREGU #### [facility] [address] [place] [address] Dr. Lester Yen Clarity (U) CLEAR Normal CLEAR [facility] Comment on above: Performed By: #### E RUR, PREGU #### [facility] [address] [place] [address] Dr. Lester Yen Color (U) LT. YELLOW Normal YELLOW [facility] Comment on above: Performed By: #### E RUR, PREGU #### [facility] [address] [place] [address] Dr. Lester Yen ERUAHMarianela A micrscopic examination will be performed if indicated. Normal [facility] Comment on above: Performed By: #### E RUR, PREGU #### [facility] [address] [place] [address] Dr. Lester Yen Glucose Ql (U) Negative Normal NEGATIVE [facility] Comment on above: Performed By: #### E RUR, PREGU #### [facility] [address] [place] [address] Dr. Lester Yen Hemoglobin Ql (U) Negative Normal NEGATIVE [facility] Comment on above: Performed By: #### E RUR, PREGU #### [facility] [address] [place] [address] Dr. Lester Yen Ketones Ql (U) Negative Normal NEGATIVE [facility] Comment on above: Performed By: #### E RUR, PREGU #### [facility] [address] [place] [address] Dr. Lester Yen LEUKOCYTES Negative Normal NEGATIVE [facility] Comment on above: Performed By: #### E RUR, PREGU #### [facility] [address] [place] [address] Dr. Lester Yen Nitrite Ql (U) Negative Normal NEGATIVE [facility] Comment on above: Performed By: #### E RUR, PREGU #### [facility] [address] [place] [address] Dr. Lester Yen pH (U) 6.0 [pH] Normal 5-9 [facility] Comment on above: Performed By: #### E RUR, PREGU #### [facility] [address] [place] [address] Dr. Lester Yen SPEC GRAVITY <=1.005 Abnormal 1.005-<=1.02 5 [facility] Comment on above: Performed By: #### E MANUELR, PREGU #### [facility] [address] [place] [address] Dr. Lester Yen UA PROTEIN Negative Normal NEGATIVE/ TRACE [facility] Comment on above: Performed By: #### E RUR, PREGU #### [facility] [address] [place] [address] Dr. Lester Yen UR MICRO IND NOT INDICATED Normal [facility] Comment on above: Performed By: #### E GREG, PREGU #### [facility] [address] [place] [address] Dr. Lester Yen Urobilinogen Qn (U) 0.2 {Olivier'U}/dL Normal 0.2 - 1. 0 [facility] Comment on above: Performed By: #### Darian GARZA, PREGU #### [facility] [address] [place] [address] Dr. Lester Yen LIPASEon 05-28-2022 Lipase [Catalytic activity/Vol] 96.0 U/L Normal 73.0-393.0 [facility] Comment on above: Performed By: #### C ASHOK LIPA, NAHUN #### [facility] [address] [place] [address] Dr. Lester Yen URon 05-28-2022 , QUAL Negative Normal NEGATIVE [facility] Comment on above: Performed By: #### E MANUELR, PREGU #### [facility] [address] [place] [address] Dr. Lester Yen PROF 14(COMP METB)on 022 Albumin [Mass/Vol] 4.0 g/dL Normal 3.4-5.0 [facility] Comment on above: Performed By: #### C MP LIPA, NAHUN #### [facility] [address] [place] [address] Dr. Lester Yen Albumin/Globulin [Mass ratio] 1.4 {ratio} Normal [facility] Comment on above: Performed By: #### C MP, LIPA, NAHUN #### [facility] [address] [place] [address] Dr. Lester Yen ALP [Catalytic activity/Vol] 56 U/L Normal 46-116 [facility] Comment on above: Performed By: #### C MP, LIPA, NAHUN #### [facility] [address] [place] [address] Dr. Lester Yen ALT [Catalytic activity/Vol] 14 U/L Normal 14-59 [facility] Comment on above: Performed By: #### C MP LIPA, NAHUN #### [facility] [address] [place] [address] Dr. Lester Yen Anion gap [Moles/Vol] 13.3 mmol/L Normal [facility] Comment on above: Performed By: #### C MP, LIPA, NAHUN #### [facility] [address] [place] [address] Dr. Lester Yen AST [Catalytic activity/Vol] 11 U/L Critically low 15-37 [facility] Comment on above: Performed By: #### C MP LIPA, NAHUN #### [facility] [address] [place] [address] Dr. Lester Yen Bilirubin [Mass/Vol] 0.5 mg/dL Normal 0.2-1.0 [facility] Comment on above: Performed By: #### C MP, LIPA, NAHUN #### [facility] [address] [place] [address] Dr. Lester Yen Calcium [Mass/Vol] 8.9 mg/dL Normal 8.5-10.1 [facility] Comment on above: Performed By: #### C MP, LIPA, NAHUN #### [facility] [address] [place] [address] Dr. Lester Yen Chloride [Moles/Vol] 105 mmol/L Normal 98-107 [facility] Comment on above: Performed By: #### C MP, LIPA, NAHUN #### [facility] [address] [place] [address] Dr. Lester Yen CO2 [Moles/Vol] 24.4 mmol/L Normal 21.0-32.0 [facility] Comment on above: Performed By: #### C ANJU PULIDO AMY #### [facility] [address] [address] [address] Lester Yen Creatinine [Mass/Vol] 0.88 mg/dL Normal 0.55-1.02 [facility] Comment on above: Performed By: #### C ANJU PULIDO, NAHUN #### [facility] [address] [address] [address] Lester Yen EGFR-AF BAR[place]IAN >60 Normal >=60 [facility] Comment on above: Performed By: #### C ANJU PULIDO, NAHUN #### [facility] [address] [address] [address] Lester Yen EGFR-NON AF [place]IAN >60 Normal >=60 [facility] Comment on above: Performed By: #### C ANJU PULIDO, NAHUN #### [facility] [address] [address] [address] Lester Yen Globulin (S) [Mass/Vol] 2.8 g/dL Normal [facility] Comment on above: Performed By: #### C ANJU PULIDO, NAHUN #### [facility] [address] [address] [address] Lester Yen Glucose [Mass/Vol] 100 mg/dL Normal 74-106 [facility] Comment on above: Performed By: #### C ANJU PULIDO, NAHUN #### [facility] [address] [address] [address] Lester Yen Potassium [Moles/Vol] 3.7 mmol/L Normal 3.5-5.1 [facility] Comment on above: Performed By: #### C ANJU PULIDO, NAHUN #### [facility] [address] [address] [address] Lester Yen Protein [Mass/Vol] 6.8 g/dL Normal 6.4-8.2 [facility] Comment on above: Performed By: #### C ANJU PULIDO, NAHUN #### [facility] [address] [address] [address] Lester Yen Sodium [Moles/Vol] 139 mmol/L Normal 136-145 [facility] Comment on above: Performed By: #### C ASHOK LIPA, NAHUN #### [facility] [address] [address] [address] Lester Yen Urea nitrogen [Mass/Vol] 13.0 mg/dL Normal 7.0-18.0 [facility] Comment on above: Performed By: #### C ASHOK LIPA, NAHUN #### [facility] [address] [address] [address] Lester Yen Urea nitrogen/Creatinine [Mass ratio] 14.8 mg/mg Normal [facility] [facility] Comment on above: Performed By: #### C ASHOK LIPA, NAHUN #### [facility] [address] [address] [address] Lester Yen Longterm Documentson 04-19-2021 Longterm Documents [id number]#1 .00CD:127 Normal [facility] Longterm Documentson 06-06-2020 Longterm Documents Longterm Nurse Visit 14 day Health Appraisal Date [...] forearm Date vial opened: 05/18/2020 Lot number: [id number] Expiration date: 01/24 PPD Comments: PPD Results [...] wish to attend AA Meetings? _ sure Longterm Assessment 05/31/20 15:54:00 Longterm Assessment Entered On: 05/31/2020 15:56 EDT Performed [...] Pressure Posi (more content not included)... Normal [facility] Longterm Documentson 05-29-2020 Longterm Documents [id number]#1.00CD:127 Normal [facility] Chlam/GC/Trich,NAAon 020 C. trachomatis rRNA JOSE+probe Ql (Unsp spec) Negative Invalid Interpretation Code Negative [facility] Comment on above: Performed By: #### 1 [id number] #### [facility] [address] [place] [address] N. gonorrhoeae rRNA JOSE+probe Ql (Unsp spec) Negative Invalid Interpretation Code Negative [facility] Comment on above: Performed By: #### 1 [id number] #### [facility] [address] [place] [address] T. vaginalis DNA JOSE+probe Ql (Unsp spec) Negative Invalid Interpretation Code Negative [facility] Comment on above: Result Comment: Perf ormed at: =G [facility] [address], [place] [id number] MD Jama Valdivia Performed By: #### 1 [id number] #### [facility] [address] [place] [address] Coding Summary.on 05-15-2020 Coding Summary. CODING DATE: 05/15/2020 FINAL [facility] STATUS: Home ([facility]) PAYOR: Medicaid EA DESCRIPTION 0425 LEVEL I [...] Revised Date Saved: 05/15/2020 10:37 am Normal [facility] Amylaseon 05-14-2020 Amylase [Catalytic activity/Vol] 58 U/L Normal 25-157 [facility] Comment on above: Performed By: #### 2 135563, 40409739, 0923952, 0876688, 9414756, 8065175, 7492398 ####[address] [place] [address] Auto Diffon 05-14-2020 Basophils/100 WBC (Bld) 0.5 % Normal 0.0-2.0 [facility] Comment on above: Order Comment: Order Added by Discern Expert. Performed By: #### 2 590254, 50710230, 6228815, 2950675, 6781740, 6725635, 2194321 ####[address] [address] Basophils/Leukocytes Auto (Bld) [Pure # fraction] 0.0 E9/L Normal 0.0-0.2 [facility] Comment on above: Order Comment: Order Added by Discern Expert. Performed By: #### 2 000858, 49058785, 3155275, 2091974, 3802844, 8433774, 9628094 ####[address] [place] [address] Eosinophils/100 WBC (Bld) 8.4 % High 0.0-8.0 [facility] Comment on above: Order Comment: Order Added by Discern Expert. Performed By: #### 2 743159, 24692584, 3699716, 3131335, 2248793, 8773054, 4232947 ####[address] [place] [address] Eosinophils/Leukocytes Auto (Bld) [Pure # fraction] 0.5 E9/L Normal 0.0-0.5 [facility] Comment on above: Order Comment: Order Added by Discern Expert. Performed By: #### 2 359495, 47729953, 3472648, 3811255, 3626713, 1545594, 1080590 ####[address] [address] Lymphocytes/100 WBC (Bld) 31.4 % Normal 14.0-50.0 [facility] Comment on above: Order Comment: Order Added by Discern Expert. Performed By: #### 2 763881, 75507426, 4888005, 2713171, 9507236, 0104007, 2815513 ####[address] [place] [address] Lymphocytes/Leukocytes Auto (Bld) [Pure # fraction] 1.8 E9/L Normal 1.0-4.0 [facility] Comment on above: Order Comment: Order Added by Discern Expert. Performed By: #### 2 107686, 78960552, 5072092, 2364496, 0326256, 9749703, 0219915 ####[address] [address] Monocytes/100 WBC (Bld) 8.2 % Normal 4.0-14.0 [facility] Comment on above: Order Comment: Order Added by Discern Expert. Performed By: #### 2 134488, 28077289, 8025915, 7055409, 7322037, 9439920, 4974707 ####[address] [address] Monocytes/Leukocytes Auto (Bld) [Pure # fraction] 0.5 E9/L Normal 0.2-1.0 [facility] Comment on above: Order Comment: Order Added by Discern Expert. Performed By: #### 2 557222, 39620710, 3411905, 9182482, 9840171, 2156138, 0144816 ####[address] [place] [address] Neutrophils/100 WBC (Bld) 51.5 % Normal 36.0-75.0 [facility] Comment on above: Order Comment: Order Added by Discern Expert. Performed By: #### 2 498782, 35050927, 1544581, 6949442, 0210701, 9931658, 5660639 ####[facility] [address] [place] [address] Neutrophils/Leukocytes Auto (Bld) [Pure # fraction] 2.9 E9/L Normal 2.0-7.5 [facility] Comment on above: Order Comment: Order Added by Discern Expert. Performed By: #### 2 076701, 34363043, 2427904, 2915267, 2550949, 2939255, 6321836 ####[facility] [address] [place] [address] BMPon 05-14-2020 Creatinine [Mass/Vol] 0.9 mg/dL Normal 0.5-1.3 [facility] Comment on above: Performed By: #### 2 158497, 20535353, 5298379, 9407952, 7128553, 6167244, 8260314 ####[address] [place] [address] Urea nitrogen [Mass/Vol] 14 mg/dL Normal 5-21 [facility] Comment on above: Performed By: #### 2 196098, 19146708, 2183122, 2636521, 3398511, 4705535, 1778043 ####[address] [place] [address] Urea nitrogen/Creatinine [Mass ratio] 16 No Units Normal 10-20 [facility] Comment on above: Performed By: #### 2 531859, 82047077, 5557201, 0101590, 4062805, 1926710, 9524232 ####[address] [place] [address] Anion gap [Moles/Vol] 12 mmol/L Normal 6-16 [facility] Comment on above: Performed By: #### 2 950760, 94070224, 1419040, 6046491, 0271270, 2939294, 7011742 ####[address] [address] Calcium [Mass/Vol] 9.3 mg/dL Normal 8.9-11.1 [facility] Comment on above: Performed By: #### 2 611737, 23055108, 0824974, 4003024, 4685215, 5087127, 3160240 ####[facility] [address] [place] [address] Chloride [Moles/Vol] 103 mmol/L Normal 101-111 [facility] Comment on above: Performed By: #### 2 057572, 56632709, 7631508, 3353875, 8648567, 5740492, 7241082 ####[facility] [address] [place] [address] CO2 [Moles/Vol] 27 mmol/L Normal 21-31 [facility] Comment on above: Performed By: #### 2 146295, 94642723, 1806391, 4204200, 9865711, 8907302, 9814000 ####[facility] [address] [place] [address] Glucose [Mass/Vol] 89 mg/dL Normal 55-199 [facility] Comment on above: Result Comment: If t his glucose result represents a fasting glucose, interpretation should refer to the following reference range: 55-99 mg/dL Performed By: #### 2 841497, 02613875, 8985609, 9199301, 4802007, 7204967, 7128539 ####[facility] [address] [place] [address] Potassium [Moles/Vol] 3.8 mmol/L Normal 3.5-5.3 [facility] Comment on above: Performed By: #### 2 550002, 23056045, 7719227, 0437238, 3827261, 6032599, 4166930 ####[facility] [address] [place] [address] Sodium [Moles/Vol] 138 mmol/L Normal 135-145 [facility] Comment on above: Performed By: #### 2 968851, 19694974, 1945091, 1958631, 4567662, 0149192, 4112570 ####[address] [place] [address] CBC w/ Auto Diffon 0 Erythrocyte distribution width (RBC) [Ratio] 12.7 % Normal 10.9-14.2 [facility] Comment on above: Performed By: #### 2 122100, 49680520, 6837134, 1742294, 6740849, 5159553, 7503042 ####[address] [address] Hematocrit (Bld) [Volume fraction] 41.7 % Normal 34.0-46.0 [facility] Comment on above: Performed By: #### 2 548053, 93258451, 0381393, 6357147, 2450698, 2041591, 1500742 ####[address] [address] Hemoglobin (Bld) [Mass/Vol] 13.9 g/dL Normal 12.0-16.0 [facility] Comment on above: Performed By: #### 2 170459, 87761150, 9847753, 1398882, 3486299, 7419627, 9332345 ####[address] [address] MCH (RBC) [Entitic mass] 30.8 pg Normal 27.0-34.0 [facility] Comment on above: Performed By: #### 2 749374, 33790855, 4833071, 8526230, 2530382, 3427900, 0364506 ####[address] [address] MCHC (RBC) [Mass/Vol] 33.3 g/dL Normal 31.4-36.0 [facility] Comment on above: Performed By: #### 2 013112, 75831079, 1733237, 1968590, 7165610, 8489814, 7293428 ####[address] [place] [address] MCV (RBC) [Entitic vol] 92.5 fL Normal 80.0-100.0 [facility] Comment on above: Performed By: #### 2 789869, 50065342, 6764243, 7884398, 7546170, 6572339, 6847317 ####[address] [place] [address] Platelet mean volume (Bld) [Entitic vol] 8.2 fL Normal 6.4-10.8 [facility] Comment on above: Performed By: #### 2 180782, 04235538, 7048334, 5468836, 0745765, 9213118, 2375019 ####[address] [address] Platelets (Bld) [#/Vol] 230.0 E9/L Normal 150.0-500.0 [facility] Comment on above: Performed By: #### 2 605768, 29344529, 6089215, 5583492, 2206049, 3026698, 9357013 ####[address] [address] RBC (Bld) [#/Vol] 4.5 E12/L Normal 4.3-5.9 [facility] Comment on above: Performed By: #### 2 173085, 59767459, 9761172, 9439404, 6352554, 1265266, 8243496 ####[address] [address] WBC corrected for nucl RBC Auto (Bld) [#/Vol] 5.7 E9/L Normal 4.0-11.0 [facility] Comment on above: Performed By: #### 2 174686, 39934971, 4875686, 6634531, 9202475, 0804885, 9409269 ####[address] [address] Discharge Instructionson Discharge Instructions [id number] #1.00CD:127 Normal [facility] ED Clinical Summaryon 2019 ED Clinical Summary [id number] ED Clinical Summary Person Information Name: BREANA PICKETT [place] Age: 29 Years : 1990 Sex: Female Language: Czech PCP: Mica CARLTON MD Marital Status: Single Phone: [phone] Visit Id: Visit Reason: Abdominal pain; STOMACH [...] 05/14/2020 04:35:55 05/14/2020 04:35:55 05/14/2020 04:35:55 ADDRESS: [address] [place] [address] [facility] DOC NOTES: MEDICAL INFORMATION: Prescriptions Given: New Medications Printed Prescriptions levofloxacin (Levaquin 500 mg Tab) 1 Tablets By Mouth every day. Refills: 0. Medications to Continue with No Changes Other Medications escitalopram (Lexapro 10 mg Tab) 1 Tablets By Mouth every day. PATIENT EDUCATION INFORMATION: Instructions: Pelvic Pain, Female, Dtoh-me-Wtix Follow up: With: Address: When: Mica CARLTON [address] [place], [place] [address] [id number] Business (1) In 3 days 05/17/2020 Comments: Followup with your inspector and unloader next week DIAGNOSIS: 1:Abdominal pain in female; Pelvic pain Normal [facility] ED Note-Nursingon 05-14-2020 ED Note-Nursing Dr. Renner aware of patient c/o generalized abd pain, rates at 04/14. Order received for [place], 2 tabs, one-time only. Normal [facility] ED Note-Nursing Dr. Renner at bedside for results review. Normal [facility] ED Note-Nursing Patient to u/s Normal [facility] ED Note-Nursing Dr. Renner at bedside for results update. Normal [facility] ED Note-Nursing Patient to xray. Normal [facility] ED Note-Nursing Dr. Renner at bedside for assessment. Normal [facility] ED Note-Physicianon 05-14-20 ED Note-Physician Basic Information [...] infection and recommend she followup with her inspector and unloader Assessment/Plan 1. Abdominal pain in female (R10.9: [...] 22:35:00) Lymph Auto: 31.4 % (05/13/20 22:35:00) Edmonson Auto: 8.2 % (05/13/20 22:35:00) Eos Auto: 8.4 % High (05/13/20 22:35:00) Basophil Auto: 0.5 % (05/13/20 22:35:00) Neutro Absolute: 2.9 E9/L (05/13/20 22:35:00) Lymph Absolute: 1.8 E9/L (05/13/20 22:35:00) Edmonson Absolute: 0.5 E9/L (05/13/20 22:35:00) Eos Absolute: 0.5 E9/L (05/13/20 (more content not included)... Normal [facility] Comment on above: Result Comment: Elec tronically [...] Document Reviewed: 01/11/2013 ExitCare? Patient Information ?2015 [employer]. This information is not intended to replace advice given to you by your health care provider. Make sure you discuss any questions you have with your health care provider. Normal [facility] ED Patient Summaryon 020 ED Patient Summary [id number] Patient Discharge Instructions Person Information Name: BREANA PICKETT Age: 29 Years Arrival Date: 05/13/2020 21:43:46 Discharge Diagnosis: 1:Abdominal pain in female; Pelvic pain Primary Care Physician: Mica CARLTON MD Provider Information Primary Provider: Lucio Renner MD Advanced Tower Operator:None The exam and treatment you received in the Emergency Department were for an urgent problem and are not intended as complete care. It is important that you follow up with a doctor, nurse practitioner, or physician?s payroll human resources assistant for ongoing care. If your symptoms [...] Follow-up Instructions: With: Address: When: Mica CARLTON [address] [place], [place] [id number] Business (1) In 3 days 05/17/2020 Comments: Followup with your inspector and unloader next week In the event that this physician does not participate in your insurance network, please consult with your insurance company to find a nearby participating provider. Patient Education Materials: Pelvic Pain, Female, Yztp-ua-Qnjn A MESSAGE TO ALL PATIENTS REGARDING OPIOIDS PRESCRIPTION OPIOIDS: WHAT YOU NEED TO KNOW Prescription opioids can be used to help relieve prxucjez-mk-zogjfw pain and are often prescribed following a [...] tell your (more content not included)... Normal [facility] Hep Fun Panelon 05-14-2020 Bilirubin.indirect [Mass or moles/Vol] UTC Abnormal 0.1-0.9 [facility] Comment on above: Result Comment: Resu lt verified by Discern Rule. Performed result [facility] (Unable to Calculate) was sent as an Alpha code due the inability to calculate a valid numeric value. Performed By: #### 2 660939, 08860900, 3150181, 3416284, 6212539, 8703335, 2297733 ####[facility] [address] [place] [address] Albumin [Mass/Vol] 4.2 g/dL Normal 3.3-5.0 [facility] Comment on above: Performed By: #### 2 916274, 75891513, 9447612, 4195805, 1665000, 2497812, 3009825 ####[address] [place] [address] Albumin/Globulin (S) [Mass conc ratio] 1.4 Normal 1.1-2.2 [facility] Comment on above: Performed By: #### 2 388395, 56801687, 7579644, 2193910, 1195285, 4033805, 4434640 ####[address] [place] [address] ALP [Catalytic activity/Vol] 62 Int._Unit/L Normal 21-98 [facility] Comment on above: Performed By: #### 2 917127, 86538490, 0125526, 9074473, 8850615, 0363170, 2001063 ####[address] [place] [address] ALT No additional P-5'-P [Catalytic activity/Vol] 15 Int._Unit/L Normal 6-46 [facility] Comment on above: Performed By: #### 2 016908, 38961267, 2489627, 7181913, 4417185, 4168106, 2524752 ####[facility] [address] [place] [address] AST [Catalytic activity/Vol] 15 Int._Unit/L Normal 5-43 [facility] Comment on above: Performed By: #### 2 050610, 17726292, 1568843, 5347846, 2853228, 3755566, 7016113 ####[facility] [address] [place] [address] Bilirubin [Mass/Vol] 0.8 mg/dL Normal 0.0-1.1 [facility] Comment on above: Performed By: #### 2 758355, 77781856, 5217205, 3545587, 1004878, 6582948, 4710739 ####[facility] [address] [place] [address] Bilirubin.direct [Mass/Vol] mg/dL Normal 0.1-0.4 [facility] Comment on above: Performed By: #### 2 009256, 17289511, 1442776, 4106295, 8684699, 1348394, 1503687 ####[address] [address] Globulin (S) [Mass/Vol] 2.9 g/dL Normal 1.4-4.0 [facility] Comment on above: Performed By: #### 2 570025, 38346922, 0801629, 2332613, 1049907, 6393562, 2436880 ####[address] [address] Protein [Mass/Vol] 7.1 g/dL Normal 6.0-7.8 [facility] Comment on above: Performed By: #### 2 581639, 69570432, 0157037, 8475108, 2310621, 9680495, 9227688 ####[address] [place] [address] Lipase Levelon 05-14-2020 Lipase [Catalytic activity/Vol] 36 U/L Normal 13-58 [facility] Comment on above: Performed By: #### 2 292972, 09125601, 1323616, 8546473, 3358899, 0793652, 6149362 ####[facility] [address] [place] [address] U BetaHcg Qualon 05-14-2020 HCG.beta subunit (U) [Moles/Vol] Negative Normal [facility] Comment on above: Performed By: #### 2 3063695, 18994650 #### [facility] [address] [place] [address] UA With Cult Reflexon 2019 Bilirubin Ql (U) Negative Normal Negative [facility] Comment on above: Performed By: #### 2 5330690, 19600310 #### [facility] [address] [place] [address] Clarity (U) SL CLOUDY Abnormal Clear [facility] Comment on above: Performed By: #### 2 7876644, 17625253 #### [facility] [address] [place] [address] Color (U) YELLOW Normal Yellow [facility] Comment on above: Performed By: #### 2 2522808, 00463289 #### [facility] [address] [place] [address] Epithelial cells.squamous LM.HPF (Urine sed) [#/Area] 3-4 Normal 0-2 [facility] Comment on above: Performed By: #### 2 2344700, 41352969 #### [facility] [address] [place] [address] Glucose Test strip (U) [Mass/Vol] Negative Normal Negative [facility] Comment on above: Performed By: #### 2 1464308, 22808477 #### [facility] [address] [place] [address] Hemoglobin Ql (U) Negative Normal Negative [facility] Comment on above: Performed By: #### 2 7002805, 05086757 #### [facility] [address] [place] [address] Ketones (U) [Mass/Vol] TRACE Abnormal Negative Fi [facility] Comment on above: Performed By: #### 2 5918473, 98410545 #### [facility] [address] [place] [address] [place].plasma/[place]. RBC (Bld) [Mass ratio] 0-3 Normal 0-3 [facility] Comment on above: Performed By: #### 2 3830084, 47441025 #### [facility] [address] [place] [address] Nitrite Ql (U) Negative Normal Negative [facility] Comment on above: Performed By: #### 2 4237238, 27243210 #### [facility] [address] [place] [address] pH (U) 7.0 [pH] Invalid Interpretation Code 5.0-9.0 [facility] Comment on above: Performed By: #### 2 1308106, 31865733 #### [facility] [address] [place] [address] Protein (U) [Mass/Vol] Negative Normal Negative [facility] Comment on above: Performed By: #### 2 1808796, 39116993 #### [facility] [address] [place] [address] Specific gravity (U) [Rel density] 1.020 Invalid Interpretation Code 1.005-1.030 [facility] Comment on above: Performed By: #### 2 1687185, 92159592 #### [facility] [address] [place] [address] UA Spec Desc Clean Catch Normal [facility] Comment on above: Performed By: #### 2 0353168, 50282086 #### [facility] [address] [place] [address] Urobilinogen Qn (U) 0.2 {Olivier'U}/dL Normal 0.0-1.0 [facility] Comment on above: Performed By: #### 2 5991057, 37005134 #### [facility] [address] [place] [address] WBC Auto Ql (U) Negative Normal Negative [facility] Comment on above: Performed By: #### 2 5301016, 09093715 #### [facility] [address] [place] [address] WBC LM.HPF (Urine sed) [#/Area] 0-5 Normal 0-5 [facility] Comment on above: Performed By: #### 2 2060017, 64927167 #### [facility] [address] [place] [address] US Pelvis Non-OB Completeon 05-14-2020 US Pelvis [...] TUCKER Technical Comments Transabdominal Ultrasound Performed Normal [facility] XR Abdomen Series w/ Chest 1 Viewon [...] DO Transcribed by: GABRIELE Technologist: TERESA Hutson [facility] eGFRon 05-14-2020 GFR/1.73 sq M.predicted among blacks MDRD (S/P/Bld) [Vol rate/Area] mL/min/{1.73_m2} Normal >=59 [facility] Comment on above: Order Comment: Order added by Discern Expert. Result Comment: eGFR is race adjusted. AA=. Performed By: #### 2 046535, 91377661, 9985543, 8810512, 6684884, 1382099, 0608812 ####[facility] [address] [place] [address] GFR/1.73 sq M.predicted among non-blacks MDRD (S/P/Bld) [Vol rate/Area] mL/min/{1.73_m2} Normal >=59 [facility] Comment on above: Order Comment: Order added by Discern Expert. Result Comment: Boat Driver pérez kidney disease could be indicated at eGFR's of less than 60 mL/min/1.73m2. Kidney failure is indicated at less than 15 mL/min/1.73m2. Performed By: #### 2 967302, 96880132, 0315481, 3881651, 3266112, 1927535, 4613371 ####[facility] [address] [place] [address] Consent for Treatmenton 08 Consent for Treatment [id number] #1.00CD:127 Normal [facility] Vital Signs Date Time Vital Sign Value Performing Clinician Facility 05-04-2025 13:42-0400 Body mass index (BMI) [Ratio] 25.69 kg/m2 Hector Steve [employer]AMPER MAK[employer] MACHINE Work Phone: [facility] 05-04-2025 13:42-0400 Body weight 65.77 kg Hector Vitalerly [employer]AM[employer] MAK[employer] MACHINE Work Phone: [facility] 05-04-2025 13:42-0400 Diastolic blood pressure 64 mm[Hg] Hector Power [employer]AM[employer] MACHINE Work Phone: [facility] 05-04-2025 13:42-0400 Systolic blood pressure 110 mm[Hg] Hectorkaran Vitalerly [employer]AM[employer] MAK[employer] MACHINE Work Phone: [facility] 04-26-2025 11:18-0400 Body mass index (BMI) [Ratio] 30.03 kg/m2 Dominic Mir DO Work Phone: [facility] 04-26-2025 11:18-0400 Body weight 76.89 kg Dominic Mir DO Work Phone: [facility] 04-26-2025 11:18-0400 Diastolic blood pressure 66 mm[Hg] Dominic Mir DO Work Phone: [facility] 04-26-2025 11:18-0400 Systolic blood pressure 110 mm[Hg] Dominic Mir DO Work Phone: [facility] 04-19-2025 14:23-0400 Body mass index (BMI) [Ratio] 29.54 kg/m2 Dominic Mir DO Work Phone: [facility] 04-19-2025 14:23-0400 Body weight 75.64 kg Dominic Mir DO Work Phone: [facility] 04-19-2025 14:23-0400 Diastolic blood pressure 58 mm[Hg] Dominic Mir DO Work Phone: [facility] 04-19-2025 14:23-0400 Systolic blood pressure 102 mm[Hg] Dominic Mir DO Work Phone: [facility] 04-06-2025 15:27-0400 Body mass index (BMI) [Ratio] 29.05 kg/m2 Nahun Heather PA Work Phone: [facility] 04-06-2025 15:27-0400 Body weight 74.39 kg Nahun Heather PA Work Phone: [facility] 04-06-2025 15:27-0400 Diastolic blood pressure 74 mm[Hg] Nahun Heather PA Work Phone: [facility] 04-06-2025 15:27-0400 Systolic blood pressure 120 mm[Hg] Nahun Spivey PA Work Phone: [facility] 03-23-2025 14:44-0400 Body mass index (BMI) [Ratio] 28.7 kg/m2 Dominic Mir DO Work Phone: [facility] 03-23-2025 14:44-0400 Body weight 73.48 kg Dominic Mir DO Work Phone: [facility] 03-23-2025 14:44-0400 Diastolic blood pressure 68 mm[Hg] Dominic Mir DO Work Phone: [facility] 03-23-2025 14:44-0400 Systolic blood pressure 112 mm[Hg] Dominic Mir DO Work Phone: [facility] 03-09-2025 14:55-0400 Body mass index (BMI) [Ratio] 28.21 kg/m2 Nahun Heather PA Work Phone: [facility] 03-09-2025 14:55-0400 Body weight 72.23 kg Nahun Spivey PA Work Phone: [facility] 03-09-2025 14:55-0400 Diastolic blood pressure 60 mm[Hg] Nahun Heather PA Work Phone: [facility] 03-09-2025 14:55-0400 Systolic blood pressure 98 mm[Hg] Nahun Spivey PA Work Phone: [facility] 02-23-2025 15:23-0400 Body mass index (BMI) [Ratio] 28.03 kg/m2 Dominic Mir DO Work Phone: [facility] 02-23-2025 15:23-0400 Body weight 71.78 kg Dominic Mir DO Work Phone: [facility] 02-23-2025 15:23-0400 Diastolic blood pressure 60 mm[Hg] Dominic Mir DO Work Phone: [facility] 02-23-2025 15:23-0400 Systolic blood pressure 100 mm[Hg] Dominic Mir DO Work Phone: [facility] 02-10-2025 10:44-0400 Diastolic blood pressure 54 mm[Hg] PHYSICIAN NO [facility] 02-10-2025 10:44-0400 Heart rate 53 /min PHYSICIAN NO [facility] 02-10-2025 10:44-0400 Respiratory rate 18 /min PHYSICIAN NO [facility] 02-10-2025 10:44-0400 SaO2% (BldA) [Mass fraction] 100 % PHYSICIAN NO [facility] 02-10-2025 10:44-0400 Systolic blood pressure 95 mm[Hg] PHYSICIAN NO [facility] 02-10-2025 08:40-0400 Body height 162.56 cm PHYSICIAN NO [facility] 02-10-2025 08:40-0400 Body weight 69.45 kg PHYSICIAN NO [facility] 02-10-2025 08:35-0400 Body temperature 98.2 [degF] PHYSICIAN NO [facility] 01-31-2025 15:23-0400 Body mass index (BMI) [Ratio] 28.48 kg/m2 Hector Steve HAMPER MAKER MACHINE Work Phone: [facility] 01-31-2025 15:23-0400 Body weight 72.94 kg Hector Steve HAMPER MAKER MACHINE Work Phone: [facility] 01-31-2025 15:23-0400 Diastolic blood pressure 58 mm[Hg] Hector Steve HAMPER MAKER MACHINE Work Phone: [facility] 01-31-2025 15:23-0400 Systolic blood pressure 100 mm[Hg] Hector Power HAMPER MAKER MACHINE Work Phone: [facility] 12-28-2024 15:01-0400 Body mass index (BMI) [Ratio] 25.69 kg/m2 Dominic Mir DO Work Phone: [facility] 12-28-2024 15:01-0400 Body weight 65.77 kg Dominic Mir DO Work Phone: [facility] 12-28-2024 15:01-0400 Diastolic blood pressure 56 mm[Hg] Dominic Mir DO Work Phone: [facility] 12-28-2024 15:01-0400 Systolic blood pressure 96 mm[Hg] Dominic Mir DO Work Phone: [facility] 11-30-2024 15:04-0500 Body mass index (BMI) [Ratio] 24.62 kg/m2 Nahun Romero PA Work Phone: [facility] 11-30-2024 15:04-0500 Body weight 63.05 kg Nahun Romero PA Work Phone: [facility] 11-30-2024 15:04-0500 Diastolic blood pressure 62 mm[Hg] Nahun Romero PA Work Phone: [facility] 11-30-2024 15:04-0500 Systolic blood pressure 100 mm[Hg] Nahun Romero PA Work Phone: [facility] 11-02-2024 10:59-0500 Body mass index (BMI) [Ratio] 23.91 kg/m2 Dominic Mir DO Work Phone: [facility] 11-02-2024 10:59-0500 Body weight 61.24 kg Dominic Mir DO Work Phone: [facility] 11-02-2024 10:59-0500 Diastolic blood pressure 68 mm[Hg] Dominic Mri DO Work Phone: [facility] 11-02-2024 10:59-0500 Systolic blood pressure 116 mm[Hg] Dominic Mir DO Work Phone: [facility] 10-26-2024 10:04-0500 Body temperature 98.5 [degF] PHYSICIAN NO [facility] 10-26-2024 10:04-0500 Diastolic blood pressure 64 mm[Hg] PHYSICIAN NO [facility] 10-26-2024 10:04-0500 Heart rate 60 /min PHYSICIAN NO [facility] 10-26-2024 10:04-0500 Respiratory rate 18 /min PHYSICIAN NO [facility] 10-26-2024 10:04-0500 SaO2% (BldA) [Mass fraction] 100 % PHYSICIAN NO [facility] 10-26-2024 10:04-0500 Systolic blood pressure 111 mm[Hg] PHYSICIAN NO [facility] 10-26-2024 10:02-0500 Body height 160.02 cm PHYSICIAN NO [facility] 10-26-2024 10:02-0500 Body weight 58.5 kg PHYSICIAN NO [facility] 10-01-2024 11:38-0500 Body mass index (BMI) [Ratio] 22.11 kg/m2 Nom Nurse [facility] 10-01-2024 11:38-0500 Body weight 56.61 kg Nom Nurse [facility] 10-01-2024 11:38-0500 Diastolic blood pressure 70 mm[Hg] Noms Nurse [facility] 10-01-2024 11:38-0500 Systolic blood pressure 120 mm[Hg] Noms Nurse [facility] 07-19-2024 13:26-0400 Body mass index (BMI) [Ratio] 22.5 kg/m2 Dominic Mir DO Work Phone: [facility] 07-19-2024 13:26-0400 Body weight 57.61 kg Dominic Mir DO Work Phone: [facility] 07-19-2024 13:26-0400 Diastolic blood pressure 60 mm[Hg] Dominic Mir DO Work Phone: [facility] 07-19-2024 13:26-0400 Systolic blood pressure 110 mm[Hg] Dominic Mir DO Work Phone: [facility] 06-29-2024 14:00-0400 Body mass index (BMI) [Ratio] 20.73 kg/m2 Dominic Mir DO Work Phone: [facility] 06-29-2024 14:00-0400 Body weight 53.07 kg Dominic Mir DO Work Phone: [facility] 06-29-2024 14:00-0400 Diastolic blood pressure 66 mm[Hg] Dominic Mir DO Work Phone: [facility] 06-29-2024 14:00-0400 Systolic blood pressure 108 mm[Hg] Dominic Mir DO Work Phone: [facility] 06-17-2024 14:12-0400 Body height 160.02 cm PHYSICIAN NO [facility] 06-17-2024 14:12-0400 Body temperature 98.5 [degF] PHYSICIAN NO [facility] 06-17-2024 14:12-0400 Body weight 52.4 kg PHYSICIAN NO [facility] 06-17-2024 14:12-0400 Diastolic blood pressure 52 mm[Hg] PHYSICIAN NO [facility] 06-17-2024 14:12-0400 Heart rate 72 /min PHYSICIAN NO [facility] 06-17-2024 14:12-0400 Respiratory rate 20 /min PHYSICIAN NO [facility] 06-17-2024 14:12-0400 SaO2% (BldA) [Mass fraction] 99 % PHYSICIAN NO [facility] 06-17-2024 14:12-0400 Systolic blood pressure 109 mm[Hg] PHYSICIAN NO [facility] 04-07-2023 14:45-0400 Body height 160.02 cm Dutch Mendez Other [place] Other 04-07-2023 14:45-0400 Body mass index (BMI) [Ratio] 21.25 kg/m2 Dutch Mendez Other [place] Other 04-07-2023 14:45-0400 Body temperature 98 [degF] Dutch Mendez Other [place] Other 04-07-2023 14:45-0400 Body weight 54.43 kg Dutch Mendez Other [place] Other 04-07-2023 14:45-0400 Diastolic blood pressure 62 mm[Hg] Dutch Mendez Other [place] Other 04-07-2023 14:45-0400 Respiratory rate 18 /min Dtuch Mendez Other [place] Other 04-07-2023 14:45-0400 SaO2% (BldA) [Mass fraction] 97 % Dutch Mendez Other [place] Other 04-07-2023 14:45-0400 Systolic blood pressure 99 mm[Hg] Dutch Mendez Other [place] Other 01-03-2023 18:30-0400 Diastolic blood pressure 53 mm[Hg] HAMPER MAKER MACHINE-C Naomy Luby Work Phone: [facility] 01-03-2023 18:30-0400 Heart rate 51 /min HAMPER MAKER MACHINE-C Naomy Luby Work Phone: [facility] 01-03-2023 18:30-0400 Respiratory rate 16 /min HAMPER MAKER MACHINE-C Naomy Luby Work Phone: [facility] 01-03-2023 18:30-0400 SaO2% (BldA) [Mass fraction] 100 % HAMPER MAKER MACHINE-C Naomy Luby Work Phone: 2(634)934-619429 [address] 01-03-2023 18:30-0400 Systolic blood pressure 96 mm[Hg] HAMPER MAKER MACHINE-C Naomy Luby Work Phone: 2(062)167-851402 [place] [address] 01-03-2023 14:50-0400 Body height 160.02 cm HAMPER MAKER MACHINE-C Naomy Luby Work Phone: 9(775)158-804602 [place] [address] 01-03-2023 14:50-0400 Body temperature 98.1 [degF] HAMPER MAKER MACHINE-C Naomy Luby Work Phone: 1(421)610-910902 [place] [address] 01-03-2023 14:50-0400 Body weight 58.65 kg HAMPER MAKER MACHINE-C Naomy Luby Work Phone: 6(799)688-249702 [place] [address] 08-02-2022 20:04-0400 Diastolic blood pressure 51 mm[Hg] HAMPER MAKER MACHINE-C Naomy Luby Work Phone: 9(560)199-475102 [place] [address] 08-02-2022 20:04-0400 Heart rate 81 /min HAMPER MAKER MACHINE-C Naomy Luby Work Phone: 5(226)134-315302 [place] [address] 08-02-2022 20:04-0400 Respiratory rate 16 /min HAMPER MAKER MACHINE-C Naomy Luby Work Phone: 7(589)857-947302 [place] [address] 08-02-2022 20:04-0400 SaO2% (BldA) [Mass fraction] 100 % HAMPER MAKER MACHINE-C Naomy Luby Work Phone: 8(587)951-068169 [place] [address] 08-02-2022 20:04-0400 Systolic blood pressure 104 mm[Hg] HAMPER MAKER MACHINE-C Naomy Luby Work Phone: 4(547)645-256502 [place] [address] 08-02-2022 17:33-0400 Body height 160.02 cm HAMPER MAKER MACHINE-C Naomy Luby Work Phone: 5(601)760-551429 [address] 08-02-2022 17:33-0400 Body temperature 98.8 [degF] HAMPER MAKER MACHINE-C Naomy Luby Work Phone: 4(863)411-035769 [place] [address] 08-02-2022 17:33-0400 Body weight 59.4 kg HAMPER MAKER MACHINE-C Naomy Luby Work Phone: 3(390)489-763869 [place] [address] Encounters Encounter Date Encounter Type Care Provider Facility Start: 05-04-2025 End: 05-04-2025 Bamboo flowsheet Hector Steve HAMPER MAKER MACHINE Work Phone: [facility] Start: 05-04-2025 End: 05-06-2025 Bamboo flowsheet Hector Steve HAMPER MAKER MACHINE Work Phone: [facility] Start: 05-04-2025 End: 05-06-2025 External Result Encounter Hector Steve HAMPER MAKER MACHINE Work Phone: [facility] Unsolicited Start: 05-04-2025 End: 05-04-2025 ambulatory HECTOR STEVE Not Available Start: 05-04-2025 End: 05-04-2025 Postop follow up visit related to original px Hector Steve HAMPER MAKER MACHINE Work Phone: [facility] Comment on above: Postoperative visit; S/P section; Sinusitis, unspecified chronicity, unspecified location; Urinary tract infection without hematuria, site unspecified Start: 04-28-2025 End: 04-28-2025 Clinisync Result Encounter Dominic Mir DO Work Phone: [facility] Unsolicited Start: 04-28-2025 End: 04-28-2025 Clinisync Result Encounter Dominic Mir DO Work Phone: [facility] Unsolicited Start: 04-27-2025 End: 04-27-2025 Clinisync Result Encounter Dominic Mir DO Work Phone: [facility] Unsolicited Start: 04-27-2025 End: 04-27-2025 Clinisync Result Encounter Dominic Mir DO Work Phone: [facility] Unsolicited Start: 04-26-2025 End: 04-26-2025 Bamboo flowsheet Dominic Mir DO Work Phone: [facility] Start: 04-26-2025 End: 04-26-2025 Bamboo flowsheet Dominic Mir DO Work Phone: [facility] Start: 04-26-2025 End: 04-26-2025 Clinisync Result Encounter Dominic Mir DO Work Phone: [facility] Unsolicited Start: 04-26-2025 End: 04-26-2025 Office outpatient visit 15 minutes Dominic Mir DO Work Phone: [facility] Comment on above: Third trimester preg freddie ([facility]); 37 weeks gestation of ([facility]) Start: 04-26-2025 End: 04-26-2025 ambulatory DOMINIC MIR Not Available Start: 04-21-2025 End: 04-21-2025 Clinisync Result Encounter Nahun HEADLEY Work Phone: [facility] Unsolicited Start: 04-21-2025 End: 04-21-2025 Clinisync Result Encounter Nahun HEADLEY Work Phone: [facility] Unsolicited Start: 04-19-2025 End: 04-19-2025 Office outpatient visit 15 minutes Dominic Mir DO Work Phone: [facility] Comment on above: Third trimester preg freddie ([facility]); Mood changes Start: 04-19-2025 End: 04-19-2025 [...] on above: size inconsist ent with dates ([facility]); 34 weeks gestation of ([facility]); Third trimester ([facility]); Excessive growth affecting management of in third trimester, single or unspecified fetus ([facility]) Start: 04-06-2025 End: 04-06-2025 ambulatory NAHUN ROMERO [...] trimester preg freddie ([facility]); 32 weeks gestation of ([facility]); size inconsistent with dates ([facility]) Start: 03-23-2025 End: 03-23-2025 ambulatory DOMINIC MIR [...] Start: 03-09-2025 End: 03-09-2025 Bamboo flowsheet Nahun HEADLEY Work Phone: [facility] Start: 03-09-2025 End: 03-09-2025 Bamboo flowsheet Nahun HEADLEY Work Phone: [facility] Start: [...] End: 02-17-2025 Clinisync Result Encounter Hector Power HAMPER MAKER MACHINE Work Phone: [facility] Unsolicited Start: 02-17-2025 End: 02-17-2025 Clinisync Result Encounter Hector Power HAMPER MAKER MACHINE Work Phone: [facility] Unsolicited Start: 02-10-2025 End: 02-10-2025 Emergency department patient visit PHYSICIAN [facility] Work Phone: Start: 01-31-2025 End: 01-31-2025 ambulatory HECTOR POWER Not Available Start: 01-31-2025 End: 01-31-2025 Office outpatient visit 15 minutes Hector Power HAMPER MAKER MACHINE Work Phone: [facility] Comment on above: 25 weeks gestation o f ; Second trimester ; Encounter for follow-up ultrasound of anatomy; Diabetes mellitus screening Start: 01-31-2025 End: 01-31-2025 Bamboo flowsheet Hector Power HAMPER MAKER MACHINE Work Phone: [facility] Start: 01-31-2025 End: 01-31-2025 Bamboo flowsheet Hector Power HAMPER MAKER MACHINE Work Phone: [facility] Start: 12-28-2024 End: 12-28-2024 Office outpatient visit 15 minutes Dominic Mir DO Work Phone: [facility] Comment on above: 20 weeks gestation o f ; Second trimester Start: 12-28-2024 End: 12-28-2024 ambulatory DOMINIC MIR Not Available Start: 12-28-2024 End: 12-28-2024 ambulatory DOMINIC MIR Not Available Start: 11-30-2024 End: 11-30-2024 Office outpatient visit 15 minutes Nahun HEADLEY Work Phone: [facility] Comment on above: 16 weeks gestation o f ; Second trimester ; Well woman exam with routine gynecological exam; STD exposure; Vaginal discharge; Screening, , for anatomic survey Start: 11-30-2024 End: 11-30-2024 Patient encounter procedure Nahun HEADLEY Work Phone: [facility] Start: 11-30-2024 End: 11-30-2024 ambulatory NAHUN ROMERO Not Available Start: 11-30-2024 End: 11-30-2024 Bamboo flowsheet Nahun HEADLEY Work Phone: [facility] Start: 11-30-2024 End: 12-06-2024 Bamboo flowsheet Nahun HEADLEY Work Phone: [facility] Start: 11-30-2024 End: 12-06-2024 Clinisync Result Encounter Nahun HEADLEY Work Phone: [facility] External Department Unsolicited Start: 11-02-2024 End: 11-02-2024 [...] End: 10-26-2024 Emergency department patient visit PHYSICIAN [facility] Work Phone: Start: 10-19-2024 [...] End: 06-17-2024 Emergency department patient visit PHYSICIAN NO FAMILY [facility]Emergency Room Work Phone: Start: 04-24-2024 End: 04-24-2024 Patient encounter procedure HAMPER MAKER MACHINE-Lauren Garcia Work Phone: [facility] [employer] Work Phone: Start: 04-24-2024 End: 04-24-2024 ambulatory HAMPER MAKER MACHINE-Lauren Garcia Work Phone: [facility] Work Phone: Start: 02-09-2024 End: 02-09-2024 ambulatory HAMPER MAKER MACHINE-C Naomy Skyjuanito Work Phone: [facility] Work Phone: Start: 02-09-2024 End: 02-09-2024 Patient encounter procedure HAMPER MAKER MACHINE-C Naomy Garcia Work Phone: [facility]Ul[facility]ound [employer] [facility] Work Phone: Start: 04-07-2023 End: 04-07-2023 ambulatory Dutch Mendez Other [facility] [employer] Other Start: 04-07-2023 Office outpatient ne w 20 minutes Dutch Mendez [facility] Ur[facility] Start: 03-28-2023 End: 03-28-2023 ambulatory HAMPER MAKER MACHINE-C Naomy Garcia Work Phone: [facility] Work Phone: Start: 03-28-2023 End: 03-28-2023 Patient encounter procedure HAMPER MAKER MACHINE-C Naomy Radha Work Phone: [facility] Work Phone: Start: 01-17-2023 End: 01-17-[address] DOMINIC HESTER . Facility:[facility] Start: 01-17-2023 End: 01-18-[address] DOMINIC HESTER . Facility:[facility] Start: 01-03-2023 End: 01-04-[address] DOCTOR PATEL Facility:[facility] Start: 01-03-2023 End: 01-03-2023 Emergency department patient visit HAMPER MAKER MACHINE-C Naomy Garcia Work Phone: [facility]Emer[facility] Work Phone: Start: 12-26-2022 End: 12-27-[address] DOMINIC HESTER . Facility:[facility] Start: 12-25-2022 End: 12-26-[address] DOMINIC HESTER . Facility:[facility] Start: 08-02-2022 End: 08-02-2022 Emergency department patient visit HAMPER MAKER MACHINE-Lauren Naomymyles Garcia Work Phone: [facility]Emergency [facility] Start: 07-31-2022 Encounter for other preprocedural examination DR DOMINIC HESTER . [facility] Start: 07-29-2022 End: 07-30-2022 Encounter for other preprocedural examination DR DOMINIC HESTER . Facility:[facility] Start: 07-29-2022 End: 07-30-[address] DOMINIC HESTER . Facility:[facility] Start: 07-16-2022 End: 07-17-[address] DOMINIC HESTER . Facility:[facility] Start: 06-18-2022 End: 06-18-2022 Patient encounter procedure HAMPER MAKER MACHINE-Lauren Garcia Work Phone: [facility] Start: 06-01-[address] DOMINIC HESTER . Facili ty:[facility] Start: 05-30-2022 End: 05-30-[address] DOMINIC HESTER . Facility:[facility] Start: 05-28-2022 End: 05-28-2022 ambulatory ROGELIO HERNANDEZ . Facility:[facility] Procedures Date Procedure Procedure Detail Performing Clinician Start: 05-04-2025 URINARY TRACT INFECTION (HTRX) Hector Steve HAMPER MAKER MACHINE Work Phone: Start: 05-04-2025 Urnls dip stick/tablet rgnt non-auto w/o micrscp Hector Steve HAMPER MAKER MACHINE Work Phone: Start: 04-28-2025 ALL CBC WITH AUTO DIFF Dominic Mir DO Work Phone: Start: 04-27-2025 ALL CBC WITH AUTO DIFF Dominic Mir DO Work Phone: Start: 04-26-2025 US OB BPP W NON-STRESS Dominic Mir DO Work Phone: Start: 04-26-2025 Urnls dip stick/tablet rgnt non-auto w/o micrscp Dominic Mir DO Work Phone: Start: 04-21-2025 US OB BPP W NON-STRESS Nahun HEADLEY Work Phone: Start: 04-13-2025 US OB BPP W NON-STRESS Nahun HEADLEY Work Phone: Start: 04-06-2025 Urnls dip stick/tablet rgnt non-auto w/o micrscp Nahun HEADLEY Work Phone: Start: 04-06-2025 US OB GROWTH Dominic Mir DO Work Phone: Start: 03-23-2025 Urnls dip stick/tablet rgnt non-auto w/o micrscp Dominic Mir DO Work Phone: Start: 03-09-2025 Urnls dip stick/tablet rgnt non-auto w/o micrscp Nahun HEADLEY Work Phone: Start: 02-23-2025 Urnls dip stick/tablet rgnt non-auto w/o micrscp Dominic Mir DO Work Phone: Start: 02-17-2025 ALL CBC WITH AUTO DIFF Hector Power N P Work Phone: Start: 01-31-2025 Urnls dip stick/tablet rgnt non-auto w/o micrscp Hector Steve HAMPER MAKER MACHINE Work Phone: Start: 12-28-2024 Urnls dip stick/tablet rgnt non-auto w/o micrscp Dominic Mir DO Work Phone: Start: 11-30-2024 Urnls dip stick/tablet rgnt non-auto w/o micrscp Nahun HEADLEY Work Phone: Start: 11-30-2024 IGP,APTIMA HPV,AGE GDLN Nahun HEADLEY Work Phone: Start: 11-30-2024 Microscopic observation [Identifier] in Cervix by Cyto stain Dominic Mir DO Work Phone: Start: 11-02-2024 Urnls dip stick/tablet rgnt non-auto w/o micrscp Dominic Mir DO Work Phone: Start: 10-26-2024 Ultrasonography of right kidney PHYSICIAN NO FAMILY Start: 10-19-2024 BOX TEST Dominic Mir DO Work Phone: Start: 10-01-2024 Urnls dip stick/tablet rgnt non-auto w/o micrscp Dominic Mir DO Work Phone: Start: 09-08-2024 TBH PREG QUANT HCG Dominic Mir DO Work Phone: Start: 09-06-2024 [facility] PREG QUANT HCG Dominic Mir DO Work Phone: Start: 08-23-2024 ALL PROGESTERONE Dominic Mir DO Work Phone: Start: 06-29-2024 End: 06-29-2024 Urnls dip stick/tablet rgnt non-auto w/o micrscp Dominic Mir DO Work Phone: Start: 02-09-2024 Pelvic echography HAMPER MAKER MACHINE-C Naomy Garcia Work Phone: Start: 02-09-2024 Transvaginal echography HAMPER MAKER MACHINE-Lauren Garcia Work Phone: Start: 05-30-2023 Microscopic observation [Identifier] in Cervix by Cyto stain Dominic Mir DO Work Phone: Start: 01-03-2023 Diagnostic ultrasound of gravid uterus HAMPER MAKER MACHINE-C Naomy Garcia Work Phone: Start: 01-03-2023 Ultrasonography of right kidney HAMPER MAKER MACHINE-C Naomy Garcia Work Phone: Start: 01-03-2023 Transvaginal obstetric ultrasonography HAMPER MAKER MACHINE-Lauren Garcia Work Phone: H/O: section S/P sectio n Hector Steve HAMPER MAKER MACHINE Work Phone: Plan of Treatment Date Care Activity Detail Author Start: 05-30-2028 Screening for malign ant neoplasm of cervix [facility] Start: 11-30-2025 Screening for malign ant neoplasm of cervix [facility] Start: 06-08-2025 End: 06-08-2025 ambulatory 06/08/2025 1:00 PM EDT Visit [facility] [address] [place] [address] Nahun Romero, PA [address] [place], [place] [id number] [facility] Start: 06-06-2025 Influenza vaccination [facility] Start: 05-04-2025 End: 05-04-2025 Patient encounter procedure 05/04/2025 1:30 PM EDT Office Visit [facility] [address] [place] [address] Hector Steve, HAMPER MAKER MACHINE [address] [place] [address] [facility] Start: 04-26-2025 End: 04-26-2025 Patient encounter procedure [facility] Comment on above: Arrived Start: 04-19-2025 End: 04-19-2025 Patient encounter procedure [facility] Comment on above: Arrived Start: 04-19-2025 End: 04-19-2026 CULTURE, GROUP B STREP WITH SUSCEPTIBLITY CULTURE, GROUP B STREP WITH SUSCEPTIBLITY Lab Routine Third trimester ([facility]) Expected: 04/19/2025, Expires: 04/19/2026 [facility] Work Phone: Comment on above: Expected: 04/19/2025 , Expires: 04/19/2026 Start: 04-06-2025 End: 04-06-2025 Patient encounter procedure 04/06/2025 2:50 PM EDT Routine [facility] [address] [place] [address] Nahun Romero, PA [address] [place] [address] [facility] Start: 03-23-2025 End: 03-23-2025 Patient encounter procedure [facility] Comment on above: Arrived Start: 03-23-2025 End: 07-23-2025 US for US OB follow up transabdominal approach Imaging Routine size inconsistent with dates ([facility]) Expected: 03/23/2025, Expires: 07/23/2025 [facility] Work Phone: Comment on above: Expected: 03/23/2025 , Expires: 07/23/2025 Start: 03-09-2025 End: 03-09-2025 Patient encounter procedure [facility] Comment on above: Arrived Start: 02-23-2025 End: 02-23-2025 Patient encounter procedure [facility] Comment on above: Arrived Start: 02-10-2025 [facility] Start: 02-03-2025 End: 02-03-2025 Professional / ancillary services management 02/03/2025 2:30 PM EDT Ancillary Procedure [facility] [address] [place] [address] [facility] Start: 01-31-2025 End: 01-31-2026 CBC panel - Blood by Automated count CBC Lab Routine Diabetes mellitus screening Expected: 01/31/2025 (Approximate), Expires: 01/31/2026 [facility] Comment on above: Expected: 01/31/2025 (Approximate), Expires: 01/31/2026 Start: 01-31-2025 End: 01-31-2026 Measurement of glucose 1 hour after glucose challenge for glucose tolerance test Glucose tolerance, 1 hour Lab Routine Diabetes mellitus screening Expected: 01/31/2025 (Approximate), Expires: 01/31/2026 [facility] Comment on above: Expected: 01/31/2025 (Approximate), Expires: 01/31/2026 Start: 01-31-2025 End: 05-02-2025 US for US OB limited 1+ fetuses Imaging Routine Encounter for follow-up ultrasound of anatomy Expected: 01/31/2025, Expires: 05/02/2025 [facility] Work Phone: Comment on above: Expected: 01/31/2025 , Expires: 05/02/2025 Start: 01-25-2025 End: 01-25-2025 Patient encounter procedure 01/25/2025 2:40 PM EDT Routine [facility] [address] [place] [address] Nahun Romero, PA [address] [place] [address] [facility] Start: 12-28-2024 End: 12-28-2024 Patient encounter procedure 12/28/2024 2:40 PM EDT Routine [facility] [address] [place] [phone] Dominic Hester, [address] [place] [address] [facility] Start: 12-28-2024 End: 12-28-2024 Professional / ancillary services management 12/28/2024 1:30 PM EDT Ancillary Procedure [facility] [address] [place] [phone] [facility] Start: 12-20-2024 End: 12-20-2024 Patient encounter procedure 12/20/2024 2:10 PM EDT Office Visit [facility] [address] [place] [phone] Dominic Hester, DO [address] [place] [address] [facility] Start: 11-30-2024 End: 11-30-2024 Patient encounter procedure 11/30/2024 2:30 PM EST Routine [facility] [address] [place] [phone] Nahun Romero, PA [address] [place] [address] Arrived [facility] Comment on above: [...] procedure 11/02/2024 10:40 AM EST Routine [facility] [address] [place] [phone] Dominic Hester DO [address] [place] [address] [facility] Start: 10-01-2024 End: 10-01-2025 ABO/Rh ABO/Rh Lab Routine Missed menses , unspecified gestational age Expected: 10/01/2024 (Approximate), Expires: 10/01/2025 [facility] Comment on above: Expected: 10/01/2024 (Approximate), [...] first trimester Expected: 10/01/2024 (Approximate), Expires: 10/01/2025 [facility] Comment on above: Expected: 10/01/2024 (Approximate), Expires: 10/01/2025 Start: 07-19-2024 End: 07-19-2024 Patient encounter procedure 07/19/2024 1:00 PM EDT Office Visit [facility] [address] [facility] [place] [id number] Dominic Hester, DO [address] [place] [address] [facility] Start: 06-29-2024 End: 06-29-2025 SURESWAB(R) ADVANCED VAGINITIS PLUS, TMA SURESWAB(R) ADVANCED VAGINITIS PLUS, TMA Pathology and Cytology Routine Pelvic pain in female Expected: 06/29/2024 (Approximate), Expires: 06/29/2025 [facility] Work Phone: Comment on above: Expected: 06/29/2024 (Approximate), Expires: 06/29/2025 Start: 06-29-2024 End: 06-29-2025 US for US PELVIS-TRANSVAG IF INDICATED Imaging Routine Pelvic pain in female Expected: 06/29/2024 (Approximate), Expires: 06/29/2025 [facility] Comment on above: Expected: 06/29/2024 (Approximate), Expires: 06/29/2025 Start: 06-29-2024 End: 06-29-2024 Patient encounter procedure 06/29/2024 1:40 PM EDT Office Visit [facility] [address] [facility] [place] [phone] Dominic Hester, DO [address] [place], [place] [phone] Arrived [facility] Comment on above: Arrived Start: 06-06-2024 Influenza vaccination Influenza Vacc ine (#1) [facility] Start: 03-28-2023 [facility] Start: 01-03-2023 [facility] Start: 06-18-2022 [facility] Work Phone: Bacteria identified in Blood by Culture Blood Culture [facility] Bacteria identified in Urine by Culture Urine culture Microbiology Routine Missed menses Ordered: 10/01/2024 [facility] Comment on above: Ordered: 10/01/2024 CBC W Auto Different ial panel - Blood CBC and differential Lab Routine Missed menses , unspecified gestational age Ordered: 10/01/2024 [facility] Comment on above: Ordered: 10/01/2024 CBC W Auto Different ial panel - Blood CBC and differential Lab Routine Postoperative visit S/P section Ordered: 05/04/2025 [facility] Work Phone: Comment on above: Ordered: 05/04/2025 CHLAMYDIA TRACHOMATI S (GENITO/STI) CHLAMYDIA TRACHOMATIS (GENITO/STI) Lab Routine Pelvic pain in female Ordered: 06/29/2024 [facility] Comment on above: Ordered: 06/29/2024 CHLAMYDIA TRACHOMATI S (GENITO/STI) CHLAMYDIA TRACHOMATIS (GENITO/STI) Lab Routine STD exposure Vaginal discharge Ordered: 11/30/2024 [facility] Comment on above: Ordered: 11/30/2024 Comprehensive metabo lic 2000 panel - Serum or Plasma Comprehensive metabolic panel Lab Routine Postoperative visit S/P section Ordered: 05/04/2025 [facility] Comment on above: Ordered: 05/04/2025 Cytology Cervical or vaginal smear or scraping study Pap Smear Pathology and Cytology Routine Well woman exam with routine gynecological exam Ordered: 11/30/2024 [facility] Work Phone: Comment on above: Ordered: 11/30/2024 Glucose measurement estimated from glycated hemoglobin [facility] Hemoglobin A1c/Hemoglobin.total in Blood Hemoglobin A1c Lab Routine Missed menses , unspecified gestational age Ordered: 10/01/2024 [facility] Comment on above: Ordered: 10/01/2024 Hepatitis A virus antibody, IgM type [facility] Work Phone: Hepatitis B core antibody measurement, IgM type [facility] Work Phone: Hepatitis B virus surface Ag [Presence] in Serum or Plasma by Immunoassay [facility] Work Phone: Hepatitis B virus surface Ag [Presence] in Serum or Plasma by Immunoassay Hepatitis B surface antigen Lab Routine Missed menses , unspecified gestational age Ordered: 10/01/2024 [facility] Comment on above: Ordered: 10/01/2024 Hepatitis C virus Ab [Presence] in Serum or Plasma by Immunoassay Hepatitis C antibody Lab Routine Missed menses , unspecified gestational age Ordered: 10/01/2024 [facility] Comment on above: Ordered: 10/01/2024 Hepatitis C virus Ab Signal/Cutoff in Serum or Plasma by Immunoassay [facility] Work Phone: Hepatitis C virus RN A [log units/volume] (viral load) in Serum or Plasma by JOSE with probe detection [facility] Work Phone: Hepatitis C virus RN A [Units/volume] (viral load) in Serum or Plasma by JOSE with probe detection [facility] Work Phone: HIV 1+2 Ab+HIV1 p24 Ag [Presence] in Serum or Plasma by Immunoassay [facility] Work Phone: HIV-1/HIV-2 antigen/antibody combination immunoassay HIV-1 and HIV-2 antibodies Lab Routine Missed menses , unspecified gestational age Ordered: 10/01/2024 [facility] Comment on above: Ordered: 10/01/2024 Human papilloma viru s DNA [Presence] in Unspecified specimen by Probe with amplification HPV DNA probe, amplified Microbiology Routine Well woman exam with routine gynecological exam Ordered: 11/30/2024 [facility] Comment on above: Ordered: 11/30/2024 Neisseria gonorrhoea e DNA [Presence] in Unspecified specimen by JOSE with probe detection Neisseria gonorrhea DNA probe, direct Lab Routine Pelvic pain in female Ordered: 06/29/2024 [facility] Comment on above: Ordered: 06/29/2024 Neisseria gonorrhoea e DNA [Presence] in Unspecified specimen by JOSE with probe detection Neisseria gonorrhea DNA probe, direct Lab Routine STD exposure Vaginal discharge Ordered: 11/30/2024 [facility] Comment on above: Ordered: 11/30/2024 Patient Education [facility] Work Phone: Patient referral [facility] Work Phone: Reagin Ab [Presence] in Serum by RPR [facility] Work Phone: Reagin Ab [Presence] in Serum by RPR RPR Lab Routine Missed menses , unspecified gestational age Ordered: 10/01/2024 [facility] Comment on above: Ordered: 10/01/2024 Rubella antibody, IgG Rubella an tibody, IgG Lab Routine Missed menses , unspecified gestational age Ordered: 10/01/2024 [facility] Comment on above: Ordered: 10/01/2024 SURESWAB(R) ADVANCED VAGINITIS PLUS, TMA SURESWAB(R) ADVANCED VAGINITIS PLUS, TMA Pathology and Cytology Routine STD exposure Vaginal discharge Ordered: 11/30/2024 [facility] Comment on above: Ordered: 11/30/2024 US for US OB follow up transabdominal approach Imaging Routine size inconsistent with dates ([facility]) 04/06/2025 2:45 PM EDT [facility] Work Phone: Payers Date Payer Category Payer Medicaid [employer]ICA[place] [id number] 2022-Present [address] [place] [phone] [id number] 2022 Private Health Insurance [employer] MEDICAID [id number] 1991 Unknown [id number] 2.16.840.1.164596.3.579.2. 593 1991 Unknown [id number] 2.16.840.1.564987.3.579.2. 593 1991 Unknown [id number] 2.16.840.1.116604.3.579.2. 593 1991 Unknown [id number] 2.16.840.1.447454.3.579.2. 593 1991 Unknown [id number] 2.16.840.1.293254.3.579.2. 593 1991 Unknown [id number] 2.16.840.1.346975.3.579.2. 593 1991 Unknown [id number] 2.16.840.1.590599.3.579.2. 593 1991 Unknown [id number] 2.16.840.1.570674.3.579.2. 593 1991 Unknown [id number] 2.16.840.1.820228.3.579.2. 593 1991 Unknown [id number] 2.16.840.1.743851.3.579.2. 593 1991 Unknown [id number] 2.16.840.1.526749.3.579.2. 593 1991 Unknown [id number] 2.16.840.1.081299.3.579.2. 593 1991 Unknown [id number] 2.16.840.1.723431.3.579.2. 1259 1991 Unknown [id number] 2.16.840.1.791823.3.579.2. 1259 1991 Unknown [id number] 2.16.840.1.336969.3.579.2. 1259 1991 Unknown [id number] 2.16.840.1.601680.3.579.2. 1259 1991 Unknown [id number] 2.16.840.1.811208.3.579.2. 1259 1991 Unknown [id number] 2.16.840.1.788443.3.579.2. 9 1991 Unknown [id number] 2.16.840.1.201474.3.579.2. 9 1991 Unknown [id number] 2.16.840.1.277858.3.579.2. 1258 1991 Unknown [id number] 2.16.840.1.991880.3.579.2. 1258 1991 Unknown [id number] 2.16.840.1.707535.3.579.2. 1258 1991 Unknown [id number] 2.16.840.1.569405.3.579.2. 1258 1991 Unknown [id number] 2.16.840.1.718991.3.579.2. 1258 1991 Unknown [id number] 2.16.840.1.677464.3.579.2. 9 1991 Unknown [id number] 2.16.840.1.584536.3.579.2. 1258 1991 Unknown [id number] 2.16.840.1.912325.3.579.2. 9 1991 Unknown [id number] 2.16.840.1.409811.3.579.2. 9 1959 Private Health Insurance [id number] 1958 Self-pay [id number] 1958 Unknown [id number] Self-pay Self Pay [id number] Social History Date Type Detail Facility Start: 01-05-2022 End: 06-17-2024 Tobacco smoking status ILIS Smoker (finding) [facility] Start: 1990 Sex Assigned At Female F [facility] Start: 03-31-2023 Tobacco smoking stat us ILIS Never smoked tobacco (finding) [facility] Start: 03-09-2024 End: 05-03-2025 Sex Assigned At [facility] Start: 10-06-2010 Tobacco smoking stat us ILIS Smokes tobacco daily [facility] Start: 10-06-2010 End: 05-21-2021 History of tobacco use Cigarette Smoker [facility] Start: 03-09-2024 Tobacco use and exposure Smokeless tobacco non-user [facility] Start: 06-29-2024 End: 04-06-2025 Alcoholic beverage intake Ex-drinker (finding) [facility] Start: 03-09-2024 End: 05-03-2025 History of Social function [facility] Start: 04-13-2023 Education 13 [facility] Start: 04-13-2023 Alcohol Comment Alcohol: 1 or 2 drinks on typical day/monthly or less. Caffeine: 1 bottle pop daily; 2-3 cups/day coffee [facility] Start: 1990 Sex assigned at Not on file N [facility] Start: 08-19-2024 [facility] Start: 10-26-2024 End: 02-10-2025 Tobacco smoking status NHIS Ex-smoker (finding) [facility] Start: 10-26-2024 End: 02-10-2025 Sex Female (finding) [facility] Functional Status Date Assessment Result Facility 05-03-2025 Patient Health Quest ionnaire 2 item (PHQ-2) [Reported] [facility] 03-01-2025 Patient Health Quest ionnaire 2 item (PHQ-2) [Reported] [facility] 03-01-2025 PHQ-9 quick depressi on assessment panel [Reported.PHQ] [facility] Clinical Notes 05-14-2020 to 05-04-2025 Yuko Hernandez MA - 05/04/2025 1:30 PM Reuben Roth LPN - 04/26/2025 11:30 AM Reuben Roth LPN - 04/19/2025 2:20 PM FANG Arevalo - 04/06/2025 2:50 PM EDT Note Date & Type Note Facility 05-04-2025 History of Present illness Narrative Reason for Appointment: Patient ID: Breana Casas is a 34 y.o. female who presents for Post-op Visit (Pt present today for a 1 week post operative visit. Pt had a c/s on 04/27/2025.) Patient presents today for 1 Week Post Op Follow Up appointment. MEDICATIONS Current Outpatient Medications Medication Instructions citalopram (CELEXA) 20 mg, Oral, Daily ibuprofen 800 mg, 3 times daily iron polysaccharides (PROFE) 391.3 mg, Oral, Daily [...] Anovulation 07/19/2024 confirmed by positive blood test ([facility]) 09/09/2024 Resolved Ambulatory Problems Diagnosis Date Noted 20 weeks gestation of ([facility]) 12/28/2024 Second trimester ([facility]) 12/28/2024 Past Medical History: Diagnosis Date Anxiety Asthma ([facility]) Dyspareunia in female Endometriosis Folliculitis Hematuria Miscarriage ([facility]) PID (acute pelvic inflammatory disease) Trichomoniasis 2012 HISTORY PAST MEDICAL HISTORY SOCIAL HISTORY Past Medical History: Diagnosis Date Anxiety Asthma ([facility]) Dysmenorrhea Dyspareunia in female Endometriosis Folliculitis Hematuria Miscarriage ([facility]) PID (acute pelvic inflammatory disease) [...] Past Surgical History: Procedure Laterality Date SECTION, CLASSIC 04/27/2025 SECTION, LOW TRANSVERSE x3 : 10/23/2010, 10/02/2015, 05/16/2017 DILATION AND CURETTAGE OF UTERUS EXPLORATORY LAPAROTOMY 02/19/2021 Dr. Hester LAPAROSCOPY DIAGNOSTIC / BIOPSY / ASPIRATION / LYSIS 03/05/2024 OTHER SURGICAL HISTORY age 9- kelsea removed from abdomen PAP SMEAR 11/14/2020 Normal REVIEW OF SYSTEMS Review of Systems: Review of Systems All other systems reviewed and are negative. OBJECTIVE Objective: OBGyn Exam Vitals: Estimated body mass index is 25.69 kg/m as calculated from the following: Height as of 03/09/24: 5' 3 . Weight as of this encounter: 145 lb. BP: 110/64 No LMP recorded. ASSESSMENT & PLAN ICD-10-CM 1. Postoperative visit Z48.89 2. S/P section Z98.891 Patient presents today for a one week postop section check. Patient is doing well with minor complaints of pain. Patient complains of not feeling well and thinks she may have the flu. Incision has been noted as healing well with no signs and symptoms of infection. Follow Up: Patient is to return in 5 weeks for 6 week evaluation. Documented by Yuko Hernandez MA on behalf of: Hector Steve NP documented in this encounter [facility] 04-26-2025 History of Present illness Narrative Reason for Appointment: Patient ID: Breana Casas is a 34 y.o. female who presents for Routine Visit Patient presents today for Return OB appointment. MEDICATIONS Current Outpatient Medications Medication Instructions citalopram (CELEXA) 20 mg, Oral, Daily iron polysaccharides (PROFE) 391.3 mg, Oral, Daily [...] Anovulation 07/19/2024 confirmed by positive blood test ([facility]) 09/09/2024 20 weeks gestation of ([facility]) 12/28/2024 Second trimester ([facility]) 12/28/2024 Resolved Ambulatory Problems Diagnosis Date Noted No Resolved Ambulatory Problems Past Medical History: Diagnosis Date Anxiety Asthma ([facility]) Dyspareunia in female Endometriosis Folliculitis Hematuria Miscarriage ([facility]) PID (acute pelvic inflammatory disease) Trichomoniasis 2012 HISTORY PAST MEDICAL HISTORY SOCIAL HISTORY Past Medical History: Diagnosis Date Anxiety Asthma ([facility]) Dysmenorrhea Dyspareunia in female Endometriosis Folliculitis Hematuria Miscarriage ([facility]) PID (acute pelvic inflammatory disease) Trichomoniasis 2012 [...] nursing note reviewed. Exam conducted with a streetcar repairer helper present. Vitals: Estimated body mass index is 30.03 kg/m as calculated from the following: Height as of 24: 5' 3 . Weight as of this encounter: 169 lb 8 oz. BP: 110/66 Patient's last menstrual period was 08/05/2024. ASSESSMENT & PLAN ICD-10-CM 1. Third trimester ([facility]) Z34.93 POCT urinalysis dipstick manually resulted 2. 37 weeks gestation of ([facility]) Z3A.37 Return OB: Patient presents today for a routine obstetrics appointment. Patient is currently 37w5d . Patient states she is doing well but has complaints of being tired due to current . Patient has verbalizes frequent movement. labor precautions was discussed/given and patient was instructed to perform kick counts three times a day. Pt will be delivered tomorrow. Pt has decreased movement- pt being sent to [facility] for NST/BPP Orders Placed This Encounter Procedures POCT urinalysis dipstick manually resulted Follow Up: Patient is to return to office in 6 week for Documented by Christine Roth LPN on behalf of: Dominic Hester DO documented in this encounter [facility] 04-19-2025 History of Present illness Narrative Reason [...] Anovulation 07/19/2024 confirmed by positive blood test ([facility]) 09/09/2024 20 weeks gestation of ([facility]) 12/28/2024 Second trimester ([facility]) 12/28/2024 Resolved Ambulatory Problems Diagnosis Date Noted No Resolved Ambulatory Problems Past Medical History: Diagnosis Date Anxiety Asthma ([facility]) Dyspareunia in female Endometriosis Folliculitis Hematuria Miscarriage ([facility]) PID (acute pelvic inflammatory disease) Trichomoniasis 2012 HISTORY PAST MEDICAL HISTORY SOCIAL HISTORY Past Medical History: Diagnosis Date Anxiety Asthma ([facility]) Dysmenorrhea Dyspareunia in female Endometriosis Folliculitis Hematuria Miscarriage ([facility]) PID (acute pelvic inflammatory disease) [...] nursing note reviewed. Exam conducted with a streetcar repairer helper present. Vitals: Estimated body mass index is 29.54 kg/m as calculated from the following: Height as of 03/09/24: 5' 3 . Weight as of this encounter: 166 lb 12 oz. BP: 102/58 Patient's last menstrual period was 08/05/2024. ASSESSMENT & PLAN ICD-10-CM 1. Third trimester ([facility]) Z34.93 CULTURE, GROUP B STREP WITH SUSCEPTIBLITY [...] of:nahun romero, pac documented in this encounter [facility] 04-06-2025 History of Present illness Narrative Reason [...] Anovulation 07/19/2024 confirmed by positive blood test ([facility]) 09/09/2024 20 weeks gestation of ([facility]) 12/28/2024 Second trimester ([facility]) 12/28/2024 Resolved Ambulatory Problems Diagnosis Date Noted No Resolved Ambulatory Problems Past Medical History: Diagnosis Date Anxiety Asthma ([facility]) Dyspareunia in female Endometriosis Folliculitis Hematuria Miscarriage ([facility]) PID (acute pelvic inflammatory disease) Trichomoniasis 2012 HISTORY PAST MEDICAL HISTORY SOCIAL HISTORY Past Medical History: Diagnosis Date Anxiety Asthma ([facility]) Dysmenorrhea Dyspareunia in female Endometriosis Folliculitis Hematuria Miscarriage ([facility]) PID (acute pelvic inflammatory disease) [...] PLAN ICD-10-CM 1. size inconsistent with dates ([facility]) O26.849 US OB follow up transabdominal approach 2. 34 weeks gestation of ([facility]) Z3A.34 3. Third trimester ([facility]) Z34.93 POCT urinalysis dipstick manually resulted Return [...] FANG Jackson documented in this encounter [facility] 03-23-2025 History of Present illness Narrative Reason [...] Anovulation 07/19/2024 confirmed by positive blood test ([facility]) 09/09/2024 20 weeks gestation of ([facility]) 12/28/2024 Second trimester ([facility]) 12/28/2024 Resolved Ambulatory Problems Diagnosis Date Noted No Resolved Ambulatory Problems Past Medical History: Diagnosis Date Anxiety Asthma ([facility]) Dyspareunia in female Endometriosis Folliculitis Hematuria Miscarriage ([facility]) PID (acute pelvic inflammatory disease) Trichomoniasis 2012 HISTORY PAST MEDICAL HISTORY SOCIAL HISTORY Past Medical History: Diagnosis Date Anxiety Asthma ([facility]) Dysmenorrhea Dyspareunia in female Endometriosis Folliculitis Hematuria Miscarriage ([facility]) PID (acute pelvic inflammatory disease) [...] nursing note reviewed. Exam conducted with a streetcar repairer helper present. Vitals: Estimated body mass index is 28.7 kg/m as calculated from the following: Height as of 24: 5' 3 . Weight as of this encounter: 162 lb. BP: 112/68 Patient's last menstrual period was 08/05/2024. ASSESSMENT & PLAN ICD-10-CM 1. Third trimester ([facility]) Z34.93 POCT urinalysis dipstick manually resulted 2. 32 weeks gestation of ([facility]) Z3A.32 Return OB: Patient presents today for [...] Hester DO documented in this encounter [facility] 03-09-2025 History of Present illness Narrative Reason [...] FANG Jackson documented in this encounter [facility] 02-23-2025 History of Present illness Narrative Reason [...] nursing note reviewed. Exam conducted with a streetcar repairer helper present. Vitals: Estimated body mass index [...] Hester DO documented in this encounter [facility] 01-31-2025 History of Present illness Narrative Reason [...] nursing note reviewed. Exam conducted with a streetcar repairer helper present. Vitals: Estimated body mass index [...] Steve NP documented in this encounter [facility] 12-28-2024 History of Present illness Narrative Reason [...] nursing note reviewed. Exam conducted with a streetcar repairer helper present. Vitals: Estimated body mass index [...] Hester DO documented in this encounter [facility] 11-30-2024 History of Present illness Narrative Reason [...] nursing note reviewed. Exam conducted with a streetcar repairer helper present. Vitals: Estimated body mass index [...] obtained without difficulty and patient was given msAFP order to have obtained. Orders Placed This [...] FANG Jackson documented in this encounter [facility] 11-02-2024 History of Present illness Narrative Reason [...] Hester DO documented in this encounter [facility] 10-26-2024 Radiology Diagnostic study note [facility] [address] [place] [address] Ultrasound Report Signed Patient: Breana Casas MR#: [id number] : 1990 Acct:[id number] Age/Sex: 33 / F ADM Date: 5 Loc: ER Room: Type: [facility] ER Attending Dr: Ordering Provider: Ale [...] Tanner Burleson M.D.10/26/2024 11:46 AM Dictation Location: [place] [address] Tech: Karmen Lobo Transcribed By: SHANE 10/26/24 1146 Dictated By: Tanner Burleson DO 10/26/24 1139 Signed By: 10/26/[address] [facility] 10-26-2024 Hospital Discharge instructions Additional Instructions Rest. Push fluids. Take [id number] Tylenol as needed for any pain or discomfort. Follow-up with Dr. Hester with [employer] in the next 2 to 3 days. Follow-up with primary care provider in the next 2 to 5 days. Return here if symptoms persist or worsen. [facility] Work Phone: 10-01-2024 History of [...] or undercooked meat, and stay away from [facility]. Patient has also been advised to not [...] Parham LPN documented in this encounter [facility] 07-19-2024 History of Present illness Narrative Reason [...] Past Medical History: Diagnosis Date Anxiety Asthma ([facility]) Dyspareunia in female Endometriosis Folliculitis Hematuria Miscarriage PID (acute pelvic inflammatory disease) Trichomoniasis 2012 HISTORY PAST MEDICAL HISTORY SOCIAL HISTORY Past Medical History: Diagnosis Date Anxiety Asthma ([facility]) Dysmenorrhea Dyspareunia in female Endometriosis Folliculitis [...] nursing note reviewed. Exam conducted with a streetcar repairer helper present. Vitals: Estimated body mass index [...] Hester DO documented in this encounter [facility] 06-29-2024 History of Present illness Narrative Reason [...] Past Medical History: Diagnosis Date Anxiety Asthma ([facility]) Dyspareunia in female Endometriosis Folliculitis Hematuria Miscarriage PID (acute pelvic inflammatory disease) Trichomoniasis 2012 HISTORY PAST MEDICAL HISTORY SOCIAL HISTORY Past Medical History: Diagnosis Date Anxiety Asthma ([facility]) Dysmenorrhea Dyspareunia in female Endometriosis Folliculitis [...] nursing note reviewed. Exam conducted with a streetcar repairer helper present. Vitals: Estimated body mass index [...] Hester DO documented in this encounter [facility] 04-07-2023 Evaluation note Encounter Date Diagnosis [...] right ear, unspecified type (ICD-10 - H60.501) [facility] Other 04-14-2023 NoteOPERATIVE NOTE OPERATION DATE: 01/17/2023 [...] products of conception were removed using an 8-[place] Citizen suction curette. Excellent hemostasis was noted. The patient tolerated the procedure well. Sponge, lap, and needle counts were correct x 2. All instruments were then removed from the patient's vagina. The patient was taken to the Recovery Room in stable condition. ??[facility] [id number] NoteOPERATIVE NOTE OPERATION DATE: 07/29/2022 PROCEDURE: Diagnostic laparoscopy. PREOPERATIVE DIAGNOSIS: Pelvic pain, dyspareunia, dysmenorrhea. POSTOPERATIVE DIAGNOSIS: Pelvic pain, dyspareunia, dysmenorrhea including significant endometriosis of the posterior cul-de-sac, as well as significant adhesions of the uterus to the anterior abdominal wall all the way to the fundal region. ANESTHESIA: General. SURGEON: Dominic Hester D.O. SERVICE CENTER ASSISTANT: ADAN Flores URINE OUTPUT: Yellow and clear. [...] taken to Recovery Room in stable condition.[facility] [id number] Note Microbiology PROCEDURE: Cervical Culture [R1] SOURCE: [...] Locations R1: This test was performed at: [facility], [address] [place] [address], [id number] , , RtxjeyAccess Hospital DaytonComment on above:Performed By: #### [id number] ####[facility] [address] [place], [place] [id number] NoteCall received from /s, bladder not full. Conway catheter education provided to patient, agrees to insertion at this time.[facility] DaytonEvaluation noteNo assessment information availableUniversity [facility]als [facility] Work Phone: Evaluation note* Diagnosis Female infertility Female infertility of unspecified origin Anovulation Female infertility associated with anovulation documented in this encounter [facility]* Diagnosis Pelvic pain in female Unspecified symptom associated with female genital organs documented in this encounter [facility]* Diagnosis Missed menses , unspecified gestational age Encounter for supervision of normal first in first trimester documented in this encounter [facility]* Diagnosis 12 weeks gestation of First trimester state, incidental documented in this encounter [facility] Healthcare[facility] note* Diagnosis 16 weeks gestation of [...] mood disorder [facility] Diagnosis Postoperative visit S/P section Other postprocedural status Sinusitis, unspecified chronicity, unspecified location Urinary tract infection without hematuria, site unspecified [facility]* Diagnosis Third trimester (HHS-HCC) state, incidental 37 weeks gestation of (HHS-HCC) [facility] Additional Instructions Keep that area clean and dry Avoid putting any adhesives to area affected Take antibiotic as instructed until gone Clean with 9 deodorized soap Follow with your surgeon on Friday Return here if any problems persist or worsen including fever, chills or any other concernsUniversity [facility]als [facility] Work Phone: Hospital Discharge instructions Additional Instructions It is important you follow-up with your UNDERWRITING CLERKS SUPERVISOR call for appointment. Please return here if you develop any fevers, chills, shortness of breath, numbness, tingling, unilateral weakness or any other concernsMem[facility] Work Phone: Summary Purpose Family [...] and content) DATE CREATED AUTHOR 04/20/2021 Benjamin Bullock [facility] DATE CREATED AUTHOR AUTHOR'S ORGANIZ ATION 01/23/2023 [facility] DATE CREATED AUTHOR AUTHOR'S ORGANIZ ATION 02/12/2025 [facility] DATE CREATED AUTHOR AUTHOR'S ORGANIZ ATION 05/06/2025 [facility] EPIC Care Teams (unrecognized sec tion and content) Team Status: Inactive Member Role Status Dates Naomy Garcia NP-C Primary Care Provider Active Dominic Hester Attending Provider Active Team Status: Active Member Role Status Dates Naomy Garcia NP-Lauren Primary Care Provider Active Team Status: Inactive Member Role Status Dates Naomy Garcia NP-C Primary Care Provider Active Monika Camarillo APRN Emergency Provider Active Team Status: Inactive Member Role Status Dates Naomy Garcia NP-Lauren Primary Care Provider Active Nahun Romero PA-C Attending Provider Active Team Status: Inactive Member Role Status Dates Naomy Garcia NP-C Primary Care Provider Active S tart: February 09, 2024 End: February 09, 2024 Dominic Hester Attending Provider Active Start: Stephanie solomon 2023 End: February 09, 2024 Team Status: Active Member Role Status Dates PHYSICIAN NO FAMILY Primary Care Provider Active Team Status: Inactive Member Role Status Dates Naomy Garcia NP-Lauren Primary Care Provider Active S tart: February [...] June 17, 2024 End: June 17, 2024 Radioisotope Production Operator Relationship Specialty Start Date End Date Nahun Romero PA [address] [place] [address] PCP - [facility] 07/06/24 Radioisotope Production Operator Relationship Specialty Start Date End Date Nahun Romero PA [facility] [place] [address] PCP - [facility] 07/06/24 Radioisotope Production Operator Relationship Specialty Start Date End Date Nahun Romero PA [address] [place] [address] PCP - [facility] 07/06/24 Team Status: Inactive Member Role Status Dates PHYSICIAN NO FAMILY Primary Care Provider Active Start: October 26, 2024 End: October 26, 2024 Ale Fragoso APRN Emergency Provider Active S tart: October 26, 2024 End: October 26, 2024 Radioisotope Production Operator Relationship Specialty Start Date End Date Nahun Romero PA [address] [place] [address] PCP - [facility] 07/06/24 Radioisotope Production Operator Relationship Specialty Start Date End Date Nahun Romero PA [address] [place] [address] PCP - [facility] 07/06/24 Radioisotope Production Operator Relationship Specialty Start Date End Date Nahun Romero PA [address] [place] [address] PCP - [facility] 07/06/24 Radioisotope Production Operator Relationship Specialty Start Date End Date Nahun Romero PA [address] [place] [address] PCP - [facility] 07/06/24 Radioisotope Production Operator Relationship Specialty Start Date End Date Nahun Romero PA [address] [facility] [address] [place], [facility] PCP - [facility] 07/06/24 Radioisotope Production Operator Relationship Specialty Start Date End Date Nahun Romero PA [address] [facility] [place] [address] PCP - [facility] 07/06/24 Team Status: Inactive Member Role Status Dates PHYSICIAN NO FAMILY Primary Care Provider Active Start: February 10, 2025 End: February 10, 2025 Malcolm Gaston DO Emergency Provider Active St art: February 10, 2025 End: February 10, 2025 Radioisotope Production Operator Relationship Specialty Start Date End Date Nahun Romero PA [address] [place] [address] PCP - [facility] 07/06/24 Radioisotope Production Operator Relationship Specialty Start Date End Date Nahun Romero PA [address] [place] [address] PCP - [facility] 07/06/24 Radioisotope Production Operator Relationship Specialty Start Date End Date Nahun Romero PA [address] [facility] [place] [address] PCP - [facility] 07/06/24 Radioisotope Production Operator Relationship Specialty Start Date End Date Nahun Romero PA [address] [facility] [place] [address] PCP - [facility] 07/06/24 Radioisotope Production Operator Relationship Specialty Start Date End Date Nahun Romero PA [address] [place] [address] PCP - [facility] 07/06/24 Radioisotope Production Operator Relationship Specialty Start Date End Date Nahun Romero PA [address] [facility] [place] [address] PCP - [facility] 07/06/24 Goals (unrecognized section and content) [...] Reason Comments Amenorrhea Reason Comments Routine Visit Reason Comments Post-op Visit Pt present today for a 1 week post operative visit. Pt had a c/s on 04/27/2025. FOR RECORDS PERTAINING TO PATIENTS WHO ARE [...] BE BASED ON THE PRIMARY CLINICAL RECORDS. [facility]. provides no warranty or guarantee of the accuracy or completeness of information in this document.
[2025-05-08 22:03] LABS: Hematocrit 29.6 % (36.0-48.0); Hemoglobin 10.2 g/dL (12.0-16.0); Immature Granulocytes Abs Auto 0.07 10^3/uL (0.00-0.03); Immature Granulocytes Pct Auto 1.1 % (0.0-0.5); Lymphocytes Absolute Auto 1.4 10^3/uL (1.2-3.8); Mean Corpuscular HGB Conc 34.5 g/dL (29.9-35.2); Mean Corpuscular Hemoglobin 31.9 pg (26.7-34.0); Mean Corpuscular Volume 92.5 fL (81.0-99.0); Platelet Count 294 10^3/uL (150-450); Red Blood Count 3.20 10^6/uL (4.20-5.40); White Blood Count 6.5 10^3/uL (4.0-11.0)
--- NOTE | 2025-05-08 22:04 | ED.GENADUL1 ---
HPI HPI - General Adult General Chief complaint: Vaginal Bleeding Stated complaint: had baby april 27 having a lot of bleeding Time Seen by Provider: 05/08/25 21:41 Source: patient Mode of arrival: walk-in Limitations: no limitations History of Present Illness HPI narrative: 34-year-old female presents with vaginal bleeding. On April 27 she had and had a small amount of bleeding subsequently. Today she had 2 occurrences of a gush of blood. She was concerned so she came in. She has some mild abdominal pain, no fever. No injury. Related Data Home Medications ?Medication ?Instructions ?Recorded ?Confirmed vit no.95-ferrous 1 tab PO DAILY 09/17/24 09/17/24 fumarate 28 mg-folic acid 800 mcg tablet () progesterone micronized (bulk) 100 1 ea miscellaneous DAILY 09/17/24 09/17/24 % powder citalopram 20 mg tablet 20 mg PO DAILY 04/27/25 04/27/25 cephalexin 500 mg capsule mg 05/08/25 Previous Rx's ?Medication ?Instructions ?Recorded ondansetron 4 mg disintegrating 4 mg PO Q8H PRN nausea and 09/17/24 tablet vomiting 5 days #15 tabs citalopram 20 mg tablet (Celexa) 20 mg PO DAILY #30 tabs 04/29/25 ibuprofen 800 mg tablet 800 mg PO Q8H PRN pain 14 days #40 04/29/25 tabs oxycodone-acetaminophen 5 mg-325 1 tab PO Q6H PRN pain 5 days #20 04/29/25 mg tablet (Percocet) tabs Allergies Allergy/AdvReac Type Severity Reaction Status Date / Time onion Allergy throat Verified 05/08/25 21:46 swelling Steristrips Allergy Blister Uncoded 09/17/24 09:52 Opioid HPI Opioid Management Most Recent Opioid Data: Last Pain Scale 7 04/29/25, 15:07 Urine Cannabinoids, (.) Positive A 04/27/25, 10:55 Ur Phencyclidine Scrn, (NEGATIVE) Negative 04/27/25, 10:50 Review of Systems ROS Narrative A ten point review of systems is negative except as noted above. PFSH [facility] Medical History (Updated 05/08/25 @ 22:29 by Brian Vazquez MD) History of blood transfusion ?Z92.89 - Personal history of other medical treatment (ICD-10) Anemia ?D64.9 - Anemia, unspecified (ICD-10) Deep vein thrombosis (2018) ?I82.409 - Acute embolism and thrombosis of unspecified deep veins of unspecified lower extremity (ICD-10) Postoperative nausea and vomiting ?R11.2 - Nausea with vomiting, unspecified (ICD-10) ?Z98.890 - Other specified postprocedural states (ICD-10) Trichomoniasis ?A59.9 - Trichomoniasis, unspecified (ICD-10) Pelvic inflammatory disease ?N73.9 - Female pelvic inflammatory disease, unspecified (ICD-10) Folliculitis ?L73.9 - Follicular disorder, unspecified (ICD-10) Endometriosis ?N80.9 - Endometriosis, unspecified (ICD-10) Dyspareunia Asthma ?J45.909 - Unspecified asthma, uncomplicated (ICD-10) Anxiety ?F41.9 - Anxiety disorder, unspecified (ICD-10) Menorrhagia with irregular cycle ?N92.1 - Excessive and frequent menstruation with irregular cycle (ICD-10) Dysmenorrhea ?N94.6 - Dysmenorrhea, unspecified (ICD-10) Pelvic pain ?R10.2 - Pelvic and perineal pain (ICD-10) Surgical History (Updated 04/28/25 @ 08:18 by SIDRA LAO APRN, ZOE) H/O local excision of skin lesion ?Z98.890 - Other specified postprocedural states (ICD-10) History of laparoscopy ?Z98.890 - Other specified postprocedural states (ICD-10) History of dilation and curettage ?Z98.890 - Other specified postprocedural states (ICD-10) History of section ?Z98.891 - History of uterine scar from previous surgery (ICD-10) Family History (Updated 02/20/24 @ 12:45 by Taylor Jalloh NP) Other Bipolar disorder Family history of cancer Family history of diabetes mellitus Family history of hypertension Melanoma Social History (Updated 02/20/24 @ 12:50 by Taylor Jalloh NP) Within the past year, how often did you have a drink containing alcohol: monthly or less Smoking status: Current every day smoker Do you use any of these nicotine containing products: vaping products Non-prescribed substance use: cannabis (any form) 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 General: The patient appears well and in no apparent distress. Patient is resting comfortably on cart. Skin: Warm, dry, mild pallor noted. There is no rash noted. Head: Normocephalic, atraumatic Eye: Normal conjunctiva, no drainage Ears, Nose, Mouth, and Throat: oral mucosa is moist. Nares patent. Cardiovascular: Regular Rate and Rhythm Respiratory: Patient is in no distress, no accessory muscle use, lungs are clear to auscultation, no wheezing, rales or rhonchi Back: non-tender GI: Soft. Minimal tenderness in the lower abdomen Musculoskeletal: The patient has no evidence of calf tenderness, no pitting edema, symmetrical pulses noted bilaterally Neurological: A&O, normal speech Psychiatric: Cooperative Constitutional Vital Signs, click to edit/add: Last Vital Signs Temp 98.3 F 05/08/25 21:42 Pulse 77 05/08/25 21:42 Resp 16 05/08/25 21:42 BP 107/50 05/08/25 21:42 Pulse Ox 100 05/08/25 21:42 Course Vital Signs Vital signs: Vital Signs Temperature 98.3 F 05/08/25 21:42 Pulse Rate 77 05/08/25 21:42 Respiratory Rate 16 05/08/25 21:42 Blood Pressure 107/50 05/08/25 21:42 Pulse Oximetry 100 05/08/25 21:42 Temperature 98.3 F 05/08/25 21:42 Pulse Rate 77 05/08/25 21:42 Respiratory Rate 16 05/08/25 21:42 Blood Pressure 107/50 05/08/25 21:42 Pulse Oximetry 100 05/08/25 21:42 Medical Decision Making MDM Narrative Medical decision making narrative: Today her hemoglobin is 10.2 which is up significantly from April 28. She does not have any current active bleeding and is able to be discharged home. She will however call Dr. Hester's office in the morning for follow-up instructions. She was advised to come back here if bleeding became heavier. Treatment diagnosis and follow-up were discussed with the patient. I have no clinical suspicion of endometritis or retained products of conception. Differential Diagnosis Differential Diagnosis: bleeding, anemia Medical Records Medical records reviewed: Yes I reviewed the patient's medical records Lab Data Lab results reviewed: Yes I reviewed the patient's lab results Labs: Lab Results 05/08/25 Range/Units 21:55 WBC 6.5 (4.0-11.0) 10^3/uL RBC 3.20 L (4.20-5.40) 10^6/uL Hgb 10.2 L (12.0-16.0) g/dL Hct 29.6 L (36.0-48.0) % MCV 92.5 (81.0-99.0) fL MCH 31.9 (26.7-34.0) pg MCHC 34.5 (29.9-35.2) g/dL RDW 13.2 (11.0-15.0) % Plt Count 294 (150-450) 10^3/uL MPV 9.1 L (9.5-13.5) fL Neut % (Auto) 66.5 (43.0-75.0) % Lymph % (Auto) 21.5 (20.5-60.0) % [place] % (Auto) 6.5 (1.7-12.0) % Eos % (Auto) 3.8 (0.9-7.0) % Baso % (Auto) 0.6 (0.2-2.0) % Neut # (Auto) 4.3 (1.4-6.5) 10^3/uL Lymph # (Auto) 1.4 (1.2-3.8) 10^3/uL [place] # (Auto) 0.4 (0.3-0.8) 10^3/uL Eos # (Auto) 0.3 (0.0-0.7) 10^3/uL Baso # (Auto) 0.0 (0.0-0.1) 10^3/uL Abs Immat Gran (auto) 0.07 H (0.00-0.03) 10^3/uL Imm/Tot Granulo (auto) 1.1 H (0.0-0.5) % Sodium 137 (136-145) mmol/L Potassium 3.0 L (3.5-5.1) mmol/L Chloride 101 (98-107) mmol/L Carbon Dioxide 26.7 (21.0-32.0) mmol/L Anion Gap 12.3 BUN 12.0 (7.0-18.0) mg/dL Creatinine 0.69 (0.55-1.02) mg/dL Est GFR ( Amer) >60 (>=60 mL/min/1.73m^2) Est GFR (Non-Af Amer) >60 (>=60 mL/min/1.73m^2) BUN/Creatinine Ratio 17.4 Glucose 96 (74-106) mg/dL Calcium 9.2 (8.5-10.1) mg/dL Discharge Plan Discharge Chief Complaint: Vaginal Bleeding Clinical Impression: Abnormal vaginal bleeding Patient Disposition: Home, Self-Care Time of Disposition Decision: 22:29 Condition: Good Mode of Transportation: Private Vehicle Prescriptions / Home Meds: No Action PNV no.95-ferrous fumarate-FA [] 28 mg iron- 800 mcg tablet 1 tab PO DAILY progesterone micronized (bulk) 100 % powder 1 ea MISCELLANEOUS DAILY ondansetron 4 mg tablet,disintegrating 4 mg PO Q8H PRN (Reason: nausea and vomiting) 5 Days Qty: 15 0RF citalopram 20 mg tablet 20 mg PO DAILY ibuprofen 800 mg tablet 800 mg PO Q8H PRN (Reason: pain) 14 Days Qty: 40 0RF oxycodone-acetaminophen [Percocet] 5-325 mg tablet 1 tab PO Q6H PRN (Reason: pain) 5 Days Qty: 20 0RF citalopram [Celexa] 20 mg tablet 20 mg PO DAILY Qty: 30 3RF cephalexin 500 mg capsule Print Language: Azeri Instructions: Bleeding (ED) Additional Instructions: Call Dr. Hester's office in the morning Referrals: Physician,Non-Staff, MD [Primary Care Provider] - 1 week
[2025-05-08 22:12] LABS: Anion Gap 12.3; Blood Urea Nitrogen 12.0 mg/dL (7.0-18.0); Calcium 9.2 mg/dL (8.5-10.1); Carbon Dioxide 26.7 mmol/L (21.0-32.0); Chloride 101 mmol/L (98-107); Estimated GFR (African America >60 (>=60 mL/min/1.73m^2); Estimated GFR (Non-African Ame >60 (>=60 mL/min/1.73m^2); Glucose 96 mg/dL (74-106); Potassium 3.0 mmol/L (3.5-5.1); Sodium 137 mmol/L (136-145)
== END 2025-05-08 22:41 | disposition home or self-care (01) ==
PROVIDERS: Emergency Provider Emergency Medicine
DX: O90.89 Other complications of the puerperium, not elsewhere classified (principal); N93.8 Other specified abnormal uterine and vaginal bleeding; O99.335 Smoking (tobacco) complicating the puerperium; F17.290 Nicotine dependence, other tobacco product, uncomplicated
CPT/HCPCS: 36415; 80048; 85025; 99283

== ENCOUNTER 2025-06-08 13:49 | Outpatient (OUT) | payer OTHER, SELFPAY ==
[2025-06-08 14:04] LABS: Hematocrit 31.5 % (36.0-48.0); Hemoglobin 10.2 g/dL (12.0-16.0); Immature Granulocytes Abs Auto 0.01 10^3/uL (0.00-0.03); Immature Granulocytes Pct Auto 0.3 % (0.0-0.5); Lymphocytes Absolute Auto 1.0 10^3/uL (1.2-3.8); Mean Corpuscular HGB Conc 32.4 g/dL (29.9-35.2); Mean Corpuscular Hemoglobin 28.7 pg (26.7-34.0); Mean Corpuscular Volume 88.5 fL (81.0-99.0); Platelet Count 216 10^3/uL (150-450); Red Blood Count 3.56 10^6/uL (4.20-5.40); White Blood Count 3.8 10^3/uL (4.0-11.0)
--- OUTSIDE RECORDS SUMMARY | 2025-06-08 18:29 | XMS_ITS | CCD ---
Author Organization [facility] Care Team Providers Care Bulkhead Carpenter Name Role Phone ROBBIN Garcia Primary Care Provider Dominic Hester Attending Provider [phone] Dominic Hester Attending Provider [phone] RADHA Camar[place] Emergency Provider ROBBIN Garcia Primary Care Provider RADHA [place] Emergency Provider [phone] MIR ., DR LAMB Attending Unavailable MIR [...] Primary Care Provider Dominic Hester Attending Provider [phone] Mir, DO Dominic Attending Provider NO FAMILY, PHYSICIAN Primary Care Provider Unava ilable DO Dominic Hester Attending Provider Tupa, DO Malcolm Jimenez Emergency Provider Unavailable Primary Care Provider UnavailSylvia Chung Unavailable NO FAMILY, PHYSICIAN Primary Care Provider Unava ilable Fouzia Ale GARCIA Emergency Provider NO FAMILY, PHYSICIAN Primary Care Provider Unava ilable Tupa Malcolm MARLEY Emergency Provider [phone] FouziaAle bernard Attending Unavailable NO FAMILY, PHYSICIAN Primary Care Unavailable Fouzia Ale M Admitting Unavailable Dominic Hester Attending Unavailable NO FAMILY, PHYSICIAN Primary Care Unavailable Dominic Hester Admitting Unavailable TuMalcolm headley Admitting Unavailable TupaMalcolm Attending Unavailable NO FAMILY, PHYSICIAN Primary Care Unavailable Tupa, Malcolm M Admitting Unavailable FavianMalcolm headley Attending Unavailable NO FAMILY, PHYSICIAN Primary Care Unavailable MIR, DOMINIC Attending Unavailable HEATHER, SYLVIA Attending Unavailable MIR, DOMINIC Attending Unavailable POWER, HECTOR Attending Unavailable POWER, HECTOR Referring Unavailable MIR, DOMINIC Attending Unavailable HEATHER, SYLVIA Attending Unavailable MIR, DOMINIC Attending Unavailable HEATHER, SYLVIA Attending Unavailable MIR, DOMINIC Referring Unavailable MIR, DOMINIC Attending Unavailable MIR, DOMINIC Attending Unavailable POWER, HECTOR Attending Unavailable HEATHER, SYLVIA Attending Unavailable MIR, DOMINIC Attending Unavailable MIR, DOMINIC Attending Unavailable Medications Current Medications Medication Drug Class(es) Dates Sig (Normalized) Sig (Original) amoxicillin 875 mg / clavulanate 125 mg oral tablet (1 source) Penicillin-class Antibacterial Start: 04-07-2023 take 1 tablet by mouth every twelve hours Amoxicillin-Pot Clavulanate 875-125 MG 1 tablet Orally every 12 hrs for 10 day(s) Apr, Active bisacodyl 10 mg rectal suppository (2 sources) Stimulant Laxative Start: 05-11-2025 End: 05-21-2025 bisacodyl (Dulcolax) 10 MG suppository Indications: Other constipation Insert 1 suppository (10 mg) into the rectum Daily for 10 days 12 suppository 05/11/2025 05/21/2025 Active busPIRone hydrochloride 10 mg oral tablet (1 source) take 1 tablet by mouth every twelve hours busPIRone HCl 10 MG 1 tablet Orally Twice a day Active cephalexin 500 mg oral capsule (17 sources) Cephalosporin Antibacterial Start: 06-08-2025 End: 06-15-2025 take 1 capsule by mouth in the morning, then take 1 capsule by mouth in the evening, then take 1 capsule by mouth at bedtime cephalexin (Keflex) 500 MG capsule Indications: Abnormal uterine bleeding (AUB) Take 1 capsule (500 mg) by mouth in the morning and 1 capsule (500 mg) in the evening and 1 capsule (500 mg) before bedtime. Do all this for 7 days. 21 capsule 06/08/2025 06/15/2025 Active Start: 05-04-2025 End: 05-11-2025 take 1 capsule [...] for 7 days. 21 capsule 05/04/2025 05/11/2025 Start: 08-02-2022 End: 01-03-2023 take 1 capsule by mouth twice daily Cephalexin 500 mg capsule Discontinued 500 MG PO Twice daily 25 07August 02, 2022 12:00am January 03, 2023 2:50pm citalopram 20 mg oral tablet (19 sources) Serotonin Reuptake Inhibitor Start: 04-19-2025 End: 04-19-2026 take 1 tablet by mouth once daily citalopram (CeleXA) 20 MG tablet Indications: Mood changes Take 1 tablet (20 mg) by mouth Daily 30 tablet 11 04/19/2025 04/19/2026 Active docusate sodium 100 mg oral capsule (2 sources) Start: 05-11-2025 End: 05-21-2025 take 1 capsule by mouth twice daily as needed for constipation docusate sodium (Colace) 100 MG capsule Indications: Other constipation Take 1 capsule (100 mg) by mouth 2 (two) times a day as needed for constipation for up to 10 days 30 capsule 5 05/11/2025 05/21/2025 Active ibuprofen 800 mg oral tablet (20 sources) Nonsteroidal Anti-inflammatory Drug Start: 04-29-2025 take [...] 30 doses. 30 tablet 03/12/2023 10/01/2024 Discontinued norethindrone 0.35 mg oral tablet (3 sources) Start: 06-08-2025 End: 07-06-2025 take 1 tablet by mouth once daily, then take 1 tablet by mouth once daily norethindrone (Micronor) 0.35 MG tablet Indications: 6 weeks follow-up ([facility]) Take 1 tablet (0.35 mg) by mouth Daily for 28 days Take 1 tablet by mouth daily 28 tablet 11 06/08/2025 07/06/2025 Active ofloxacin 3 mg/ml ophthalmic solution (1 source) Quinolone Antimicrobial Start: 04-07-2023 Ofloxacin 0.3 % 10 drops into right ear Otic Once a day for 7 days Apr, Active ondansetron 4 mg disintegrating oral tablet (20 sources) Serotonin-3 Receptor Antagonist Start: 09-09-2024 End: 07-08-2025 take 1 tablet by mouth every six hours as needed for nausea and vomiting and nausea and nausea ondansetron ODT (Zofran-ODT) 4 MG disintegrating tablet Indications: Nausea Take 1 tablet (4 mg) by mouth every 6 (six) hours if needed for nausea or vomiting 30 tablet 2 06/08/2025 07/08/2025 Active Vit No.306-Ngtu-Vjazy ( Vitamin) 27 mg iron- 800 mcg tablet (7 sources) Start: 01-03-2023 take 1 tablet by mouth once daily Vit No.824-Waww-Kbsqo ( Vitamin) 27 mg iron- 800 mcg tablet Active 1 TAB PO Daily January 03, 2023 12:00am Start: 01-03-2023 Vit N o.197-Krix-Llnno ( Vitamin) 27 mg iron- 800 mcg tablet Active TAB TABLET January 02, 2023 11:00pm Start: 01-03-2023 Vit N o.131-Indr-Fngyu ( Vitamin) 27 mg iron- 800 mcg tablet Active TAB TABLET January 03, 2023 12:00am Vit-Fe Fumarate-FA ( Vitamins) 28-0.8 MG tablet (20 sources) Start: 09-09-2024 End: 09-09-2025 take 1 tablet by mouth once daily Vit-Fe Fumarate-FA ( Vitamins) 28-0.8 MG tablet Indications: confirmed by positive blood test ([facility]) Take 1 tablet by mouth [...] hours as needed for pain Hydrocodone-Acetami nophen ([place]) 5-325 mg tablet Discontinued 1 TAB PO EVERY 4-6 HOURS as needed for pain 09 07May 14, 2019 June 09, 2019 9:24pm Start: 06-25-2017 End: 01-31-2018 take 1 tablet by mouth every four to six hours as needed for pain Hydrocodone-Acetaminophen ([place]) 5-325 mg tablet Discontinued 1 TAB PO EVERY 4-6 HOURS as needed for pain June 25, 2017 January 31, 2018 4:07pm [id number] 200 actuat albuterol 0.09 mg/actuat metered dose [...] 18, 2022 1:00am January 03, 2023 2:50pm polysaccharide iron complex 391 mg oral capsule (20 sources) Start: 02-21-2025 End: 02-21-2026 take 1 capsule by mouth once daily iron polysaccharides (ProFe) 391.3 (180 Fe) MG capsule Indications: Low iron Take 1 capsule (391.3 mg) by mouth Daily 30 capsule 11 02/21/2025 05/11/2025 Discontinued sulfamethoxazole 800 mg / trimethoprim 160 mg oral tablet (9 sources) Dihydrofolate Reductase Inhibitor Antibacterial, Sulfonamide Antimicrobial Start: 06-21-2021 End: 01-05-2022 take 1 tablet by mouth twice daily Sulfamethoxazole-Tr imethoprim (Bactrim Ds) 800-160 mg tablet Discontinued 1 [...] pain] Onset: 05-28-2022 10-30-2020 Episodic Administrative/social admission (9 sources) Worried well; Translations: [...] Mood disorders; Translations: [DEPRESSION UNSPECIFIED] Onset: 01-06-2023 Nausea and vomiting (20 sources) Nausea and vomiting; Translations: [Nausea with vomiting, unspecified] Onset: 03-11-2023 03-11-2023 Episodic Other aftercare (1 source) Other devulcanizer loader (current) drug therapy; Translations: [OTH ASSISTED CURRENT DRUG THERAPY] Onset: 01-06-2023 Episodic Other aftercare (4 sources) Postoperative visit; Translations: [Encounter for other [...] 03-11-2023 03-11-2023 Chronic Other female genital disorders (2 sources) Vaginal bleeding; Translations: [Abnormal uterine and vaginal bleeding, unspecified] 05-11-2025 Chronic Other female genital disorders (4 sources) Abnormal uterine bleeding; Translations: [Abnormal uterine and vaginal bleeding, unspecified] 06-08-2025 Chronic Other female genital disorders (11 sources) Vaginal discharge; Translations: [Other specified noninflammatory disorders of vagina] 01-05-2022 Episodic Other gastrointestinal disorders (2 sources) Constipation; Translations: [Other constipation] 05-11-2025 Episodic Other injuries and conditions due to [...] Name Value Interpretation Reference Range Facility ALL CBC WITH AUTO DIFFon BASOPHILS ABSOLUTE AUTO 0 N [facility] Basophils/100 WBC (Bld) 0.8 % 0.2 - 2.0 % [facility] Eosinophils/100 WBC (Bld) 7.8 % High 0.9 - 7.0 % [facility] Erythrocyte distribution width (RBC) [Ratio] 13.3 % 11.0 - 15.0 % [facility] Hematocrit (Bld) [Volume fraction] 31.5 % Low 36.0 - 48.0 % [facility] Hemoglobin (Bld) [Mass/Vol] 10.2 g/dL Low 12.0 - 16.0 g/dL [facility] IMMATURE GRANULOCYTES ABS AUTO 0.01 [facility] Immature granulocytes/100 WBC (Bld) 0.3 % 0.0 - 0.5 % [facility] Interpretation and review of laboratory results Abnormal [facility] LYMPHOCYTES ABSOLUTE AUTO 1 Low [facility] Lymphocytes/100 WBC (Bld) 26.3 % 20.5 - 60.0 % [facility] MCH (RBC) [Entitic mass] 28.7 pg 26.7 - 34.0 pg [facility] MCHC (RBC) [Mass/Vol] 32.4 g/dL 29.9 - 35.2 g/dL [facility] MCV (RBC) [Entitic vol] 88.5 fL 81.0 - 99.0 fL [facility] MONOCYTES ABSOLUTE AUTO 0.3 [facility] Monocytes/100 WBC (Bld) 7 % 1.7 - 12.0 % [facility] NEUTROPHILS ABSOLUTE AUTO 2.2 [facility] Neutrophils/100 WBC (Bld) 57.8 % 43.0 - 75.0 % [facility] Platelet mean volume (Bld) [Entitic vol] 9.1 fL Low 9.5 - 13.5 fL [facility] EO # 0.3 [facility] PLT 216 [facility] RBC 3.56 Low [facility] WBC 3.8 Low [facility] Urinalysis macro (dipstick) panel (U)on 06-08-2025 Bilirubin, UA Negative Negative - 4(70) +++ mg/dL [facility] Blood, UA Positive Negative - 50 Brent/mcL [facility] Clarity, UA Clear [facility] Color, UA Red [facility] Glucose, UA Negative Negative - 2000(110) ++++ mg/dL [facility] Interpretation and review of laboratory results Abnormal [facility] Ketones, UA Negative Negative - 160(16) ++++ mg/dL [facility] Leukocytes, UA Positive Negative - 500+++ Kae/mcL [facility] Nitrite, UA Positive Negative - Positive [facility] pH, UA 6 5 - 9 [facility] Protein, UA Positive Negative - 2000(20) ++++ mg/dL [facility] Spec Grav, UA 1.02 1 - 1.03 [facility] Urobilinogen, UA 1.0 0.2 - 12 mg/dL [facility] Urinalysis macro (dipstick) panel (U)Ordered By: Adriana Hartman on 05-11-2025 Bilirubin, UA Negative Negative - 4(70) +++ mg/dL [facility] Blood, UA Positive Negative - 50 Brent/mcL [facility] Clarity, UA Clear [facility] Color, UA Yellow [facility] Glucose, UA Negative Negative - 1999(110) ++++ mg/dL [facility] Interpretation and review of laboratory results Abnormal [facility] Ketones, UA Negative Negative - 160(16) ++++ mg/dL [facility] Leukocytes, UA Moderate Negative - 500+++ Kae/mcL [facility] Nitrite, UA Positive Negative - Positive [facility] pH, UA 6 5 - 9 [facility] Protein, UA Moderate Negative - 2000(20) ++++ mg/dL [facility] Spec Grav, UA 1.025 1 - 1.03 [facility] Urobilinogen, UA 0.2 0.2 - 12 mg/dL [facility] No Panel Informationon 05-06 STAPHYLOCOCCUS EPIDERMIDIS, HAEMOLYTICUS, LUGDUNENSIS, SAPROPHYTICUS (URINA 0 [facility] STAPHYLOCOCCUS EPIDERMIDIS, HAEMOLYTICUS, LUGDUNENSIS, SAPROPHYTICUS (URINA Not detected [facility] URINARY TRACT INFECTION (HTR X)on 05-06-2025 ACINETOBACTER BAUMANII 0 NO [facility] ACINETOBACTER BAUMANII Not detected [facility] TIGIST ALBICANS, PARAPSILOSIS, TROPICALIS 0 [facility] TIGIST ALBICANS, PARAPSILOSIS, TROPICALIS Not detected [facility] TIGIST GLABRATA 0 [facility] TIGIST GLABRATA Not detected [facility] TIGIST KRUSEI 0 [facility] TIGIST KRUSEI Not detected [facility] CITROBACTER FREUNDII 0 [facility] CITROBACTER FREUNDII Not detected NO [facility] ENTEROBACTER AEROGENES, CLOACAE [address] [facility] ENTEROBACTER AEROGENES, CLOACAE Not detected [facility] ENTEROCOCCUS FAECALIS, FAECIUM [address] [facility] [facility] ENTEROCOCCUS FAECALIS, FAECIUM Not detected [facility] ESCHERICHIA COLI 0 [facility] ESCHERICHIA COLI Not detected [facility] KLEBSIELLA PNEUMONIAE, OXYTOCA 0 [facility] KLEBSIELLA PNEUMONIAE, OXYTOCA Not detected [facility] MORGANELLA MORGANII 0 [facility] MORGANELLA MORGANII Not detected [facility] PROTEUS MIRABILIS, VULGARIS 0 [facility] PROTEUS MIRABILIS, VULGARIS Not detected [facility] PSEUDOMONAS AERUGINOSA 0 NO [facility] PSEUDOMONAS AERUGINOSA Not detected [facility] SERRATIA MARCESCENS 0 [facility] SERRATIA MARCESCENS Not detected [facility] STAPHYLOCOCCUS AUREUS [address] [facility] STAPHYLOCOCCUS AUREUS Not detected [facility] STREPTOCOCCUS AGALACTIAE (GROUP B STREP) 0 [facility] STREPTOCOCCUS AGALACTIAE (GROUP B STREP) Not detected [facility] STREPTOCOCCUS PYOGENES (GROUP A STREP) [address] [facility] [facility] STREPTOCOCCUS PYOGENES (GROUP A STREP) Not detected [facility] Urinalysis macro (dipstick) panel (U)on 05-04-2025 Bilirubin, UA Negative Negative - 4(70) +++ mg/dL [facility] Blood, UA Positive Negative - 50 Brent/mcL [facility] Clarity, UA Cloudy [facility] Color, UA Red [facility] Glucose, UA Negative Negative - 2000(110) ++++ mg/dL [facility] Interpretation and review of laboratory results Abnormal [facility] Ketones, UA Negative Negative - 160(16) ++++ mg/dL [facility] Leukocytes, UA 3+ Negative - 500+++ Kae/mcL [facility] Nitrite, UA Negative Negative - Positive [facility] pH, UA 6 5 - 9 [facility] Protein, UA 1+ Negative - 2000(20) ++++ mg/dL [facility] Spec Grav, UA 1.025 1 - 1.03 [facility] Urobilinogen, UA 4.0 0.2 - 12 mg/dL [facility] ALL CBC WITH AUTO DIFFon BASOPHILS ABSOLUTE AUTO 0 [facility] Basophils/100 WBC (Bld) 0.3 % 0.2 - 2.0 % [facility] Eosinophils/100 WBC (Bld) 0.5 % Low 0.9 - 7.0 % [facility] Erythrocyte distribution width (RBC) [Ratio] 14.3 % 11.0 - 15.0 % [facility] Hematocrit (Bld) [Volume fraction] 24.5 % Low 36.0 - 48.0 % [facility] Hemoglobin (Bld) [Mass/Vol] 8.3 g/dL Low 12.0 - 16.0 g/dL [facility] IMMATURE GRANULOCYTES ABS AUTO 0.04 High [facility] Immature granulocytes/100 WBC (Bld) 0.4 % 0.0 - 0.5 % [facility] Interpretation and review of laboratory results Abnormal [facility] LYMPHOCYTES ABSOLUTE AUTO 1.2 [facility] Lymphocytes/100 WBC (Bld) 12.9 % Low 20.5 - 60.0 % [facility] MCH (RBC) [Entitic mass] 32.3 pg 26.7 - 34.0 pg [facility] MCHC (RBC) [Mass/Vol] 33.9 g/dL 29.9 - 35.2 g/dL [facility] MCV (RBC) [Entitic vol] 95.3 fL 81.0 - 99.0 fL [facility] MONOCYTES ABSOLUTE AUTO 0.8 [facility] Monocytes/100 WBC (Bld) 8.9 % 1.7 - 12.0 % [facility] NEUTROPHILS ABSOLUTE AUTO 7.2 High [facility] Neutrophils/100 WBC (Bld) 77 % High 43.0 - 75.0 % [facility] Platelet mean volume (Bld) [Entitic vol] 10.1 fL 9.5 - 13.5 fL [facility] TBH EO # 0.1 [facility] PLT 153 [facility] RBC 2.57 Low [facility] WBC 9.4 [facility] ALL CBC WITH AUTO DIFFon BASOPHILS ABSOLUTE AUTO 0 [facility] Basophils/100 WBC (Bld) 0.3 % 0.2 - 2.0 % [facility] Eosinophils/100 WBC (Bld) 3.3 % 0.9 - 7.0 % [facility] Erythrocyte distribution width (RBC) [Ratio] 14.3 % 11.0 - 15.0 % [facility] Hematocrit (Bld) [Volume fraction] 34.9 % Low 36.0 - 48.0 % [facility] Hemoglobin (Bld) [Mass/Vol] 12 g/dL 12.0 - 16.0 g/dL [facility] IMMATURE GRANULOCYTES ABS AUTO 0.04 High [facility] Immature granulocytes/100 WBC (Bld) 0.6 % High 0.0 - 0.5 % [facility] Interpretation and review of laboratory results Abnormal [facility] LYMPHOCYTES ABSOLUTE AUTO 1 Low [facility] Lymphocytes/100 WBC (Bld) 15 % Low 20.5 - 60.0 % [facility] MCH (RBC) [Entitic mass] 32.5 pg 26.7 - 34.0 pg [facility] MCHC (RBC) [Mass/Vol] 34.4 g/dL 29.9 - 35.2 g/dL [facility] MCV (RBC) [Entitic vol] 94.6 fL 81.0 - 99.0 fL [facility] MONOCYTES ABSOLUTE AUTO 0.6 [facility] Monocytes/100 WBC (Bld) 8.2 % 1.7 - 12.0 % [facility] NEUTROPHILS ABSOLUTE AUTO 4.8 [facility] Neutrophils/100 WBC (Bld) 72.6 % 43.0 - 75.0 % [facility] Platelet mean volume (Bld) [Entitic vol] 10.9 fL 9.5 - 13.5 fL [facility] TBH EO # 0.2 [facility] PLT 187 [facility] RBC 3.69 Low [facility] WBC 6.7 [facility] US OB BPP W NON-STRESS on 04-26-2025 [place] [address] Ultrasound Report Signed Patient: BREANA CASAS MR#: [id number] : 1990 Acct:[id number] Age/Sex: 34 / F ADM Date: Loc: [facility] 251-[address]: Dominic Hester D.O. Ordering Physician: Dominic Hester D.O. Date of Service: 04/26/25 Procedure(s): US OB BPP w non-stress Accession Number(s): [id number] cc: Dominic Hester D.O.; Physician,Non-Staff [facility] [address] [address] Patient Name: BREANA CASAS MRN: [facility]:[id number] date: 1990 Sex: F Assigned Patient Location: [facility] Current Patient Location: Accession/Order Number: [id number] Exam Date: 04/26/2025 13:20 Report Date: 04/26/2025 13:21 At the request of: DOMINIC HESTER DO Procedure: US OB BPP w non-stress Biophysical profile. Reason for exam: Decreased movements COMPARISON: BPP 04/20/2025 TECHNIQUE: Transabdominal imaging of the gravid uterus was obtained. FINDINGS: The mail clerk reports a BPP of 8 out of 8. TAMIR is normal at 13.4 cm. heart rate 161 bpm. US/US OB BPP w non-stress IMPRESSION: BPP 8 out of 8. Impression dictated by: Seferino Tay Jr., D.O. 04/26/2025 1:21 PM Dictation Location: [place] [address] Electronically authenticated by: [id number] Y Date: 04/26/2025 13:21 Dictated By: Seferino Tay M.D. Signed By: 04/26/25 1323 DD/ 1321 TD/TT: Steerer: [facility] Radiology, Radiologist, MD - 04/26/2025 [place] [address] Ultrasound Report Signed Patient: BREANA CASAS MR#: [id number] : 1990 Acct:[id number] Age/Sex: 34 / F ADM Date: Loc: [facility] [address]: Dominic Hester D.O. Ordering Physician: Dominic Hester D.O. Date of Service: 04/26/25 Procedure(s): US OB BPP w non-stress Accession Number(s): [id number] cc: Dominic Hester D.O.; Physician,Non-Staff [place] [facility] [address] [address] Patient Name: BREANA CASAS MRN: [facility]:[id number] date: 1990 Sex: F Assigned Patient Location: [facility] Current Patient Location: Accession/Order Number: [id number] Exam Date: 04/26/2025 13:20 Report Date: 04/26/2025 13:21 At the request of: DOMINIC HESTER DO Procedure: US OB BPP w non-stress Biophysical profile. Reason for exam: Decreased movements COMPARISON: BPP 04/20/2025 TECHNIQUE: Transabdominal imaging of the gravid uterus was obtained. FINDINGS: The mail clerk reports a BPP of 8 out of 8. TAMIR is normal at 13.4 cm. heart rate 161 bpm. US/US OB BPP w non-stress IMPRESSION: BPP 8 out of 8. Impression dictated by: Seferino Tay Jr., D.O. 04/26/2025 1:21 PM Dictation Location: [place] [address] Electronically authenticated by: [id number] Y Date: 04/26/2025 13:21 Dictated By: Seferino Tay M.D. Signed By: 04/26/25 1323 DD/ 1321 TD/TT: Steerer: [facility] Radiology Study observation (narrative) [facility] US OB BPP W NON-STRESS Ordered By: Radiologist Radiology on 04-26-2025 [facility] Work Phone: Urinalysis macro (dipstick) panel (U)on 04-26-2025 Bilirubin, UA Negative Negative - 4(70) +++ mg/dL [facility] Blood, UA Negative Negative - 50 Brent/mcL [facility] Clarity, UA Clear [facility] Color, UA Yellow [facility] Glucose, UA Negative Negative - 1999(110) ++++ mg/dL [facility] Interpretation and review of laboratory results Abnormal [facility] Ketones, UA Negative Negative - 160(16) ++++ mg/dL [facility] Leukocytes, UA Moderate Negative - 500+++ Kae/mcL [facility] Nitrite, UA Negative Negative - Positive [facility] pH, UA 7 5 - 9 [facility] Protein, UA Negative Negative - 1999(20) ++++ mg/dL [facility] Spec Grav, UA 1.015 1 - 1.03 [facility] Urobilinogen, UA 0.2 0.2 - 12 mg/dL [facility] OB BPP W NON-STRESS on 04-21-[address] [address] Ultrasound Report Signed Patient: BREANA CASAS MR#: [id number] : 1990 Acct:[id number] Age/Sex: 34 / F ADM Date: 04/20/25 Loc: US Attending Dr: Sylvia Romero Ordering Physician: Sylvia Romero Date of Service: 04/20/25 Procedure(s): US OB BPP w non-stress Accession Number(s): [id number] cc: Sylvia Romero; Physician,Non-Staff [place] [address] [address] Patient Name: BREANA CASAS MRN: [id number]:[id number] date: 1990 Sex: F Assigned Patient Location: US Current Patient Location: Accession/Order Number: [id number] Exam Date: 04/21/2025 08:12 Report Date: 04/21/2025 [...] Mckeon M.D. 04/21/2025 8:14 AM Dictation Location: [place] [address] Electronically authenticated by: [id number] Y Date: 04/21/2025 08:14 Dictated By: Christine Mckeon M.D. Signed By: 04/21/25816 DD/ 3 TD/TT: Steerer: [facility] Radiology, Radiologist, MD - 04/21/2025 [place] [address] Ultrasound Report Signed Patient: BREANA CASAS MR#: [id number] : 1990 Acct:[id number] Age/Sex: 34 / F ADM Date: 04/20/25 Loc: US Attending Dr: Sylvia Romero Ordering Physician: Sylvia Romero Date of Service: 04/20/25 Procedure(s): US OB BPP w non-stress Accession Number(s): [id number] cc: Syliva Romero; Physician,Non-Staff [place] [address] Patient Name: BREANA CASAS MRN: [facility]:[id number] date: 1990 Sex: F Assigned Patient Location: Current Patient Location: Accession/Order Number: [id number] Exam Date: 04/21/2025 08:12 Report Date: 04/21/2025 [...] Mckeon M.D. 04/21/2025 8:14 AM Dictation Location: [place] [address] Electronically authenticated by: [id number] Y Date: 04/21/2025 08:14 Dictated By: Christine Mckeon M.D. Signed By: 04/21/25816 DD/ 3 TD/TT: Steerer: [facility] Radiology Study observation (narrative) [facility] US OB BPP W NON-STRESS Ordered By: Radiologist Radiology on 04-21-2025 [facility] Work Phone: US OB BPP W NON-STRESS on 04-13-2025 [place] [address] Ultrasound Report Signed Patient: BREANA CASAS MR#: [id number] : 1990 Acct:[id number] Age/Sex: 34 / F ADM Date: Loc: US Attending Dr: Sylvia Romero Ordering Physician: Sylvia Romero Date of Service: 04/13/25 Procedure(s): US OB BPP w non-stress Accession Number(s): [id number] cc: Sylvia Romero; Physician,Non-Staff MPaula The [address] [address] Patient Name: BREANA CASAS MRN: [id number] date: 1990 Sex: F Assigned Patient Location: US Current Patient Location: [facility] Accession/Order Number: [id number] Exam Date: 04/13/2025 16:16 Report Date: 04/13/2025 [...] Burleson M.D. 04/13/2025 4:17 PM Dictation Location: [place] [address] Electronically authenticated by: [id number] Y Date: 04/13/2025 16:17 Dictated By: Tanner Burleson D.O. Signed By: 04/13/251618 DD/ 16 TD/TT: Steerer: [facility] Radiology, Radiologist, MD - 04/13/2025 [place] [address] Ultrasound Report Signed Patient: BREANA CASAS MR#: [id number] : 1990 Acct:[id number] Age/Sex: 34 / F ADM Date: Loc: US Attending Dr: Sylvia Romero Ordering Physician: Sylvia Romero Date of Service: 04/13/25 Procedure(s): US OB BPP w non-stress Accession Number(s): [id number] cc: Sylvia Romero; Physician,Non-Staff [place] The [address] [address] Patient Name: BREANA CASAS MRN: [facility]:[id number] date: 1990 Sex: F Assigned Patient Location: Current Patient Location: [facility] Accession/Order Number: [id number] Exam Date: 04/13/2025 16:16 Report Date: 04/13/2025 [...] Burleson M.D. 04/13/2025 4:17 PM Dictation Location: [place] [address] Electronically authenticated by: [id number] Y Date: 04/13/2025 16:17 Dictated By: Tanner Burleson D.O. Signed By: 04/13/25 1619 DD/ 16 TD/TT: [facility] (narrative) [facility] US OB BPP W NON-STRESS Ordered By: Radiologist Radiology on 04-13-2025 [facility] Work Phone: US OB GROWTHon 04-06-2025 [place] [address] Ultrasound Report Signed Patient: BREANA CASAS MR#: [id number] : 1990 Acct:[id number] Age/Sex: 34 / F ADM Date: 04/06/25 Loc: US Attending Dr: Dominic Hester D.O. Ordering Physician: Dominic Hester D.O. Date of Service: 04/06/25 Procedure(s): US OB growth Accession Number(s): [id number] cc: Dominic Hester D.O.; Physician,Non-Staff M.DSarah [address] [address] Patient Name: BREANA CASAS MRN: [id number] date: 1990 Sex: F Assigned Patient Location: US Current Patient Location: US Accession/Order Number: [id number] Exam Date: 04/06/2025 14:46 Report Date: 04/06/2025 [...] Jr., D.O. 04/06/2025 2:48 PM Dictation Location: [place] [address] Electronically authenticated by: [id number] Y Date: 04/06/2025 14:48 Dictated By: Seferino Tay M.D. Signed By: 04/06/25 1451 DD/ 1448 TD/TT: Steerer: [facility] Radiology, Radiologist, MD - 04/06/2025 [place] [address] Ultrasound Report Signed Patient: BREANA CASAS MR#: [id number] : 1990 Acct:[id number] Age/Sex: 34 / F ADM Date: 04/06/25 Loc: US Attending Dr: Dominic Hester D.O. Ordering Physician: Dominic Hester D.O. Date of Service: 04/06/25 Procedure(s): US OB growth Accession Number(s): [id number] cc: Dominic Hester D.O.; Physician,Non-Staff [place] The [place] [id number] Patient Name: BREANA CASAS MRN: [facility]:[id number] date: 1990 Sex: F Assigned Patient Location: US Current Patient Location: US Accession/Order Number: [id number] Exam Date: 04/06/2025 14:46 Report Date: 04/06/2025 [...] Jr., D.O. 04/06/2025 2:48 PM Dictation Location: [place] [address] Electronically authenticated by: [id number] Y Date: 04/06/2025 14:48 Dictated By: Seferino Tay M.D. Signed By: 04/06/25 1451 DD/ 1448 TD/TT: Steerer: [facility] Radiology Study observation (narrative) [facility] OB GROWTHOrdered By: Shane ologist Radiology on 04-06-2025 [facility] Work Phone: Urinalysis macro (dipstick) panel (U)on 04-06-2025 Bilirubin, UA Negative Negative - 4(70) +++ mg/dL [facility] Blood, UA Negative Negative - 50 Brent/mcL [facility] Clarity, UA Clear [facility] Color, UA Yellow [facility] Glucose, UA Negative Negative - 1999(110) ++++ mg/dL [facility] Interpretation and review of laboratory results Normal [facility] Ketones, UA Negative Negative - 160(16) ++++ mg/dL [facility] Leukocytes, UA Positive Negative - 500+++ Kae/mcL [facility] Comment on above: small Nitrite, UA Negative Negative - Positive [facility] pH, UA 7 5 - 9 [facility] Protein, UA Negative Negative - 1999(20) ++++ mg/dL [facility] Spec Grav, UA 1.005 1 - 1.03 [facility] Urobilinogen, UA 0.2 0.2 - 12 mg/dL [facility] Urinalysis macro (dipstick) panel (U)on 03-23-2025 Bilirubin, UA Negative Negative - 4(70) +++ mg/dL [facility] Blood, UA Negative Negative - 50 Brent/mcL [facility] Clarity, UA Clear [facility] Color, UA Yellow [facility] Glucose, UA Negative Negative - 2000(110) ++++ mg/dL [facility] Interpretation and review of laboratory results Normal [facility] Ketones, UA Positive Negative - 160(16) ++++ mg/dL [facility] Comment on above: 15 Leukocytes, UA Negative Negative - 500+++ Kae/mcL [facility] Nitrite, UA Negative Negative - Positive [facility] pH, UA 7 5 - 9 [facility] Protein, UA Negative Negative - 1999(20) ++++ mg/dL [facility] Spec Grav, UA 1.015 1 - 1.[address] [facility] Urobilinogen, UA 0.2 0.2 - 12 mg/dL [facility] Urinalysis macro (dipstick) panel (U)on 03-09-2025 Bilirubin, UA Negative Negative - 4(70) +++ mg/dL [facility] Blood, UA Negative Negative - 50 Brent/mcL [facility] Clarity, UA Clear [facility] Color, UA Yellow [facility] Glucose, UA Negative Negative - 1999(110) ++++ mg/dL [facility] Interpretation and review of laboratory results Abnormal [facility] Ketones, UA Negative Negative - 160(16) ++++ mg/dL [facility] Leukocytes, UA Positive Negative - 500+++ Kae/mcL [facility] Comment on above: small Nitrite, UA Negative Negative - Positive [facility] pH, UA 7 5 - 9 [facility] Protein, UA Negative Negative - 1999(20) ++++ mg/dL [facility] Spec Grav, UA 1.015 1 - 1.03 [facility] Urobilinogen, UA 0.2 0.2 - 12 mg/dL [facility] Urinalysis macro (dipstick) panel (U)on 02-23-2025 Bilirubin, UA Negative Negative - 4(70) +++ mg/dL [facility] Blood, UA Negative Negative - 50 Brent/mcL [facility] Clarity, UA Clear [facility] Color, UA Yellow [facility] Glucose, UA Negative Negative - 1999(110) ++++ mg/dL [facility] Interpretation and review of laboratory results Normal [facility] Ketones, UA Negative Negative - 160(16) ++++ mg/dL [facility] Leukocytes, UA Negative Negative - 500+++ Kae/mcL [facility] Nitrite, UA Negative Negative - Positive [facility] pH, UA 6.5 5 - 9 [facility] Protein, UA Negative Negative - 1999(20) ++++ mg/dL [facility] Spec Grav, UA 1.01 1 - 1.03 [facility] Urobilinogen, UA 0.2 0.2 - 12 mg/dL [facility] ALL CBC WITH AUTO DIFFon BASOPHILS ABSOLUTE AUTO 0 [facility] Basophils/100 WBC (Bld) 0.2 % 0.2 - 2.0 % [facility] Eosinophils/100 WBC (Bld) 2.8 % 0.9 - 7.0 % [facility] Erythrocyte distribution width (RBC) [Ratio] 12.9 % 11.0 - 15.0 % [facility] Hematocrit (Bld) [Volume fraction] 30.5 % Low 36.0 - 48.0 % [facility] Hemoglobin (Bld) [Mass/Vol] 10.5 g/dL Low 12.0 - 16.0 g/dL [facility] IMMATURE GRANULOCYTES ABS AUTO 0.02 [facility] Immature granulocytes/100 WBC (Bld) 0.3 % 0.0 - 0.5 % [facility] Interpretation and review of laboratory results Abnormal [facility] LYMPHOCYTES ABSOLUTE AUTO 0.9 Low [facility] Lymphocytes/100 WBC (Bld) 15.7 % Low 20.5 - 60.0 % [facility] MCH (RBC) [Entitic mass] 33.2 pg 26.7 - 34.0 pg [facility] MCHC (RBC) [Mass/Vol] 34.4 g/dL 29.9 - 35.2 g/dL [facility] MCV (RBC) [Entitic vol] 96.5 fL 81.0 - 99.0 fL [facility] MONOCYTES ABSOLUTE AUTO 0.4 [facility] Monocytes/100 WBC (Bld) 7.7 % 1.7 - 12.0 % [facility] NEUTROPHILS ABSOLUTE AUTO 4.2 [facility] Neutrophils/100 WBC (Bld) 73.3 % 43.0 - 75.0 % [facility] Platelet mean volume (Bld) [Entitic vol] 9.6 fL 9.5 - 13.5 fL [facility] EO # 0.2 [facility] PLT 167 [facility] RBC 3.16 Low [facility] WBC 5.7 [facility] CLINISYNC [facility] US OB LIMITED 1+ FETUSESon 0 [...] PHD at 18-Feb-2025 10:23:07 AM [facility] Normal Not Available Comment on above: Order Comment: US OB INCOMPLETE ANATOMY Estimated Date of Delivery: 05/12/25 Gestational Age as of 01/31/2025: 25w4d Alanine aminotransferase [En zymatic activity/volume] in Serum or PlasmaOrdered By: Malcolm Gaston on 02-10-2025 ALT [Catalytic activity/Vol] Alanine aminotransferase [Enzymatic activity/volume] in Serum or Plasma 7-52 [facility] Albumin [Mass/volume] in Ser um or Plasma by Bromocresol green (BCG) dye binding methoOrdered By: Malcolm Gaston on 02-10-2025 Albumin BCG dye [Mass/Vol] Albumin [Mass/volume] in Serum or Plasma by Bromocresol green (BCG) dye binding metho 3.5-5.7 [facility] Alkaline phosphatase [Enzyma tic activity/volume] in Serum or PlasmaOrdered By: Malcolm Gaston on 02-10-2025 ALP [Catalytic activity/Vol] Alkaline phosphatase [Enzymatic activity/volume] in Serum or Plasma 34-104 [facility] Appearance of UrineOrdered B y: Malcolm Gaston on 02-10-2025 Appearance (U) Urine appearance Clear [facility] Aspartate aminotransferase [ Enzymatic activity/volume] in Serum or PlasmaOrdered By: Malcolm Gaston on 02-10-2025 AST [Catalytic activity/Vol] Aspartate aminotransferase [Enzymatic activity/volume] in Serum or Plasma 13-39 [facility] Basic Metabolic Panelon 05-0 Anion gap [Moles/Vol] 7.9 mmol/L Normal 6.0-15.0 [facility] Comment on above: Performed By: #### C BC, HEPATIC, BMP, LIPASE #### [facility] [address] Calcium [Mass/Vol] 8.4 mg/dL Low 8.6-10.3 [facility] Comment on above: Performed By: #### C BC, HEPATIC, BMP, LIPASE #### [facility] [address] [place] [address] [place] Chloride [Moles/Vol] 107 mmol/L Normal 98-107 [facility] Comment on above: Performed By: #### C BC, HEPATIC, BMP, LIPASE #### [address] CO2 [Moles/Vol] 24.8 mmol/L Normal 21.0-31.0 [facility] Comment on above: Performed By: #### C BC, HEPATIC, BMP, LIPASE #### [place] [address] [place] Creatinine [Mass/Vol] 0.56 mg/dL Low 0.60-1.20 [facility] Comment on above: Performed By: #### C BC, HEPATIC, BMP, LIPASE #### [place] [address] [place] Creatinine Clr Calc Pharmacy 136.70 Normal [facility] Comment on above: Performed By: #### C BC, HEPATIC, BMP, LIPASE #### [place] [address] [place] GFR/1.73 sq M.predicted MDRD (S/P/Bld) [Vol rate/Area] mL/min/{1.73_m2} Normal [facility] Comment on above: Performed By: #### C BC, HEPATIC, BMP, LIPASE #### [address] Glucose [Mass/Vol] 75 mg/dL Normal 70-100 [facility] Comment on above: Result Comment: [place] Glucose Reference Range is dependent on time and content of last meal. Glucose of more than 200 mg/dL in a nonstressed, ambulatory subject supports the diagnosis of Diabetes Mellitus. ADA recommended reference range Performed By: #### C BC, HEPATIC, BMP, LIPASE #### [facility] [address] Potassium [Moles/Vol] 3.7 mmol/L Normal 3.5-5.1 [facility] Comment on above: Performed By: #### C BC, HEPATIC, BMP, LIPASE #### [facility] [address] Sodium [Moles/Vol] 136 mmol/L Normal 136-145 [facility] Comment on above: Performed By: #### C BC, HEPATIC, BMP, LIPASE #### [address] Urea nitrogen [Mass/Vol] 6 mg/dL Low 7-25 [facility] Comment on above: Performed By: #### C BC, HEPATIC, BMP, LIPASE #### [address] Basophils Auto (Bld) [#/Vol] Ordered By: Malcolm Gaston on 02-10-2025 Basophils (Bld) [#/Vol] Automated basoph il count 0.0-0.2 [facility] Basophils/100 WBC Auto (Bld) Ordered By: Malcolm Gaston on 02-10-2025 Basophils/100 WBC (Bld) Automated basophil % . [facility] Bilirubin Test strip Ql (U)O rdered By: Malcolm Gaston on 02-10-2025 Bilirubin Ql (U) Bilirubin.total [Presence] in Urine by Test strip Negative [facility] Bilirubin.direct [Mass/volum e] in Serum or PlasmaOrdered By: Malcolm Gaston on 02-10-2025 Bilirubin.direct [Mass/Vol] Bilirubin.direct [Mass/volume] in Serum or Plasma 0.03-0.18 [facility] Bilirubin.total [Mass/volume ] in Serum or PlasmaOrdered By: Malcolm Gaston on 02-10-2025 Bilirubin [Mass/Vol] Bilirubin.total [Mass/volume] in Serum or Plasma 0.3-1.0 [facility] Calcium [Mass/volume] in Ser um or PlasmaOrdered By: Malcolm Gaston on 02-10-2025 Calcium [Mass/Vol] Calcium [Mass/volume] in Serum or Plasma Low 8.6-10.3 [facility] Carbon dioxide, total [Moles /volume] in Serum or PlasmaOrdered By: Malcolm Gaston on 02-10-2025 CO2 [Moles/Vol] Carbon dioxide, total [Moles/volume] in Serum or Plasma 21.0-31.0 [facility] Chloride [Moles/volume] in S mehdi or PlasmaOrdered By: Malcolm Gaston on 02-10-2025 Chloride [Moles/Vol] Chloride [Moles/volume] in Serum or Plasma 98-107 [facility] Color Auto (U)Ordered By: Fang Gaston on 02-10-2025 Color (U) Color of Urine by Auto Yellow [facility] Complete Blood Count Auto Di ffon 02-10-2025 Basophils (Bld) [#/Vol] 0.0 10*3/uL Normal 0.0-0.2 [facility] Comment on above: Result Comment: PERF ORMED BY: [facility] [address] [place] [address] PATHOLOGIST HVAC SERVICE TECH BRANDI GONZALEZ M.D. Performed By: #### C BC, HEPATIC, BMP, LIPASE #### [facility] [address] [place] [address] [place] Basophils/100 WBC (Bld) 0.5 % Normal . Ben mora [facility] Comment on above: Performed By: #### C BC, HEPATIC, BMP, LIPASE #### [facility] [address] [place] [address] [place] Eosinophils (Bld) [#/Vol] 0.2 10*3/uL Normal 0.0-0.45 [facility] Comment on above: Performed By: #### C BC, HEPATIC, BMP, LIPASE #### [facility] [address] [place] [address] [place] Eosinophils/100 WBC (Bld) 3.8 % Normal . [facility] Comment on above: Performed By: #### C BC, HEPATIC, BMP, LIPASE #### [address] Erythrocyte distribution width (RBC) [Ratio] 13.1 % Normal 11.9-15.3 [facility] Comment on above: Performed By: #### C BC, HEPATIC, BMP, LIPASE #### [address] Hematocrit (Bld) [Volume fraction] 32.0 % Low 34.0-46.4 [facility] Comment on above: Performed By: #### C BC, HEPATIC, BMP, LIPASE #### [address] Hemoglobin (Bld) [Mass/Vol] 11.3 g/dL Low 11.8-15.4 [facility] Comment on above: Performed By: #### C BC, HEPATIC, BMP, LIPASE #### [address] Lymphocytes (Bld) [#/Vol] 0.9 10*3/uL Low 1.00-4.8 [facility] Comment on above: Performed By: #### C BC, HEPATIC, BMP, LIPASE #### [address] Lymphocytes/100 WBC (Bld) 16.5 % Normal . [facility] Comment on above: Performed By: #### C BC, HEPATIC, BMP, LIPASE #### [address] MCH (RBC) [Entitic mass] 33.9 pg Normal 24.7-34.3 [facility] Comment on above: Performed By: #### C BC, HEPATIC, BMP, LIPASE #### [address] MCV (RBC) [Entitic vol] 95.5 fL Normal 80-100 T he [facility] Comment on above: Performed By: #### C BC, HEPATIC, BMP, LIPASE #### [address] Mean Corpuscular HGB Conc 35.5 g/dL High 32.0-35.0 [facility] Comment on above: Performed By: #### C BC, HEPATIC, BMP, LIPASE #### [address] Monocytes (Bld) [#/Vol] 0.4 10*3/uL Normal 0.0-0.8 [facility] Comment on above: Performed By: #### C BC, HEPATIC, BMP, LIPASE #### [address] Monocytes/100 WBC (Bld) 20.48 % High 0.00-20.00 [facility] Comment on above: Result Comment: For adults in ED, MDW > 20.0 may be associated with a higher risk of sepsis during the first 12 hrs of hospital admission Performed By: #### C BC, HEPATIC, BMP, LIPASE #### [address] Monocytes/100 WBC (Bld) 7.7 % Normal . [facility] Comment on above: Performed By: #### C BC, HEPATIC, BMP, LIPASE #### [address] Neutrophils (Bld) [#/Vol] 3.7 10*3/uL Normal 1.8-7.7 [facility] Comment on above: Performed By: #### C BC, HEPATIC, BMP, LIPASE #### [address] Neutrophils/100 WBC (Bld) 71.5 % Normal . [facility] Comment on above: Performed By: #### C BC, HEPATIC, BMP, LIPASE #### [address] NRBC% 0.0 /100{WBC} Normal 0-0.5 The [facility] Comment on above: Performed By: #### C BC, HEPATIC, BMP, LIPASE #### [address] Platelet mean volume (Bld) [Entitic vol] 7.9 fL Normal 6.3-10.7 [facility] Comment on above: Performed By: #### C BC, HEPATIC, BMP, LIPASE #### [facility] [address] Platelets (Bld) [#/Vol] 203 10*3/uL Normal 150-450 [facility] Comment on above: Performed By: #### C BC, HEPATIC, BMP, LIPASE #### [facility] [address] [place] [address] [place] RBC (Bld) [#/Vol] 3.35 10*6/uL Low 3.60-5.[address] [facility] Comment on above: Performed By: #### C BC, HEPATIC, BMP, LIPASE #### [address] WBC (Bld) [#/Vol] 5.2 10*3/uL Normal 3.8-11.6 [facility] Comment on above: Performed By: #### C BC, HEPATIC, BMP, LIPASE #### [address] Creatinine [Mass/volume] in Serum or PlasmaOrdered By: Malcolm Gaston on 02-10-2025 Creatinine [Mass/Vol] Creatinine [Mass/volume] in Serum or Plasma Low 0.60-1.20 [facility] Dipstick and Microscopicon 0 02-10-2025 Appearance (U) Clear Normal Clear [facility] Comment on above: Order Comment: Name Collection Type:: Clean-Voided Midstream Performed By: #### C BC, HEPATIC, BMP, LIPASE #### [address] Bacteria,Urine Rare Normal None Seen [facility] Comment on above: Order Comment: Name Collection Type:: Clean-Voided Midstream Performed By: #### C BC, HEPATIC, BMP, LIPASE #### [address] Bilirubin,Urine Negative Normal Negative [facility] Comment on above: Order Comment: Name Collection Type:: Clean-Voided Midstream Performed By: #### C BC, HEPATIC, BMP, LIPASE #### [address] Color (U) Light-Yellow Normal Yellow [facility] Comment on above: Order Comment: Name Collection Type:: Clean-Voided Midstream Performed By: #### C BC, HEPATIC, BMP, LIPASE #### [address] Glucose Ql (U) Normal Normal Normal [facility] Comment on above: Order Comment: Name Collection Type:: Clean-Voided Midstream Performed By: #### C BC, HEPATIC, BMP, LIPASE #### [address] Hyaline Casts,Urine None Normal 0-8 [facility] Comment on above: Order Comment: Name Collection Type:: Clean-Voided Midstream Performed By: #### C BC, HEPATIC, BMP, LIPASE #### [address] Ketones Ql (U) 1+ High Negative [facility] Comment on above: Order Comment: Name Collection Type:: Clean-Voided Midstream Performed By: #### C BC, HEPATIC, BMP, LIPASE #### [address] Leukocyte esterase Test strip Ql (U) 2+ High Negative [facility] Comment on above: Order Comment: Name Collection Type:: Clean-Voided Midstream Performed By: #### C BC, HEPATIC, BMP, LIPASE #### [address] Mucus,Urine 2+ Critically abnormal [facility] Comment on above: Order Comment: Name Collection Type:: Clean-Voided Midstream Result Comment: PERF ORMED BY: [place] [address] PATHOLOGIST HVAC SERVICE TECH BRANDI GONZALEZ M.D. Performed By: #### C BC, HEPATIC, BMP, LIPASE #### [place] [address] [place] Nitrite,Urine Negative Normal Negative [facility] Comment on above: Order Comment: Name Collection Type:: Clean-Voided Midstream Performed By: #### C BC, HEPATIC, BMP, LIPASE #### [address] Occult Blood,Urine Negative Normal Negative [facility] Comment on above: Order Comment: Name Collection Type:: Clean-Voided Midstream Result Comment: PERF ORMED BY: [place] [address] PATHOLOGIST HVAC SERVICE TECH BRANDI GONZALEZ M.D. Performed By: #### C BC, HEPATIC, BMP, LIPASE #### [address] pH (U) 6.5 [pH] Normal 5.0-9.0 [facility] Comment on above: Order Comment: Name Collection Type:: Clean-Voided Midstream Performed By: #### C BC, HEPATIC, BMP, LIPASE #### [address] Protein,Urine Negative Normal Negative [facility] Comment on above: Order Comment: Name Collection Type:: Clean-Voided Midstream Performed By: #### C BC, HEPATIC, BMP, LIPASE #### [address] RBC,Urine 1-2 Normal 0-4 [facility] Comment on above: Order Comment: Name Collection Type:: Clean-Voided Midstream Performed By: #### C BC, HEPATIC, BMP, LIPASE #### [address] Specificy [place],Urine 1.018 Normal 1.001-1.030 [facility] Comment on above: Order Comment: Name Collection Type:: Clean-Voided Midstream Performed By: #### C BC, HEPATIC, BMP, LIPASE #### [address] Squamous Epithelial Cell,Urine 5-9 High 0-2 [facility] Comment on above: Order Comment: Name Collection Type:: Clean-Voided Midstream Performed By: #### C BC, HEPATIC, BMP, LIPASE #### [facility] [address] Urobilinogen,Urine Normal Normal Normal [facility] Comment on above: Order Comment: Name Collection Type:: Clean-Voided Midstream Performed By: #### C BC, HEPATIC, BMP, LIPASE #### [facility] [address] WBC,Urine 3-4 Normal 0-4 [facility] Comment on above: Order Comment: Name Collection Type:: Clean-Voided Midstream Performed By: #### C BC, HEPATIC, BMP, LIPASE #### [facility] [address] Eosinophils Auto (Bld) [#/Vo l]Ordered By: Malcolm Gaston on 02-10-2025 Eosinophils (Bld) [#/Vol] Automated eosinophil count 0.0-0.45 [facility] Eosinophils/100 WBC Auto (Bl d)Ordered By: Malcolm Gaston on 02-10-2025 Eosinophils/100 WBC (Bld) Automated eosinophil % . [facility] Erythrocyte distribution wid th Auto (RBC) [Ratio]Ordered By: Malcolm Gaston on 02-10-2025 Erythrocyte distribution width (RBC) [Ratio] Erythrocyte distribution width [Ratio] by Automated count 11.9-15.3 [facility] Globulin Calc (S) [Mass/Vol] Ordered By: Malcolm Gaston on 02-10-2025 Globulin (S) [Mass/Vol] Serum globulin measurement by calculation (mass/volume) [facility] Glucose [Mass/volume] in Ser um or PlasmaOrdered By: Malcolm Gaston on 02-10-2025 Glucose [Mass/Vol] Glucose [Mass/volume] in Serum or Plasma 70-100 [facility] Comment on above: ADA recommended [...] [Mass/volume] in Urine by Test strip Normal [facility] Hematocrit Auto (Bld) [Volum e fraction]Ordered By: Malcolm Gaston on 02-10-2025 Hematocrit (Bld) [Volume fraction] Hematocrit [Volume Fraction] of Blood by Automated count Low 34.0-46.4 [facility] Hemoglobin Test strip Ql (U) Ordered By: Malcolm Gaston on 02-10-2025 Hemoglobin Ql (U) Hemoglobin [Presence] in Urine by Test strip Negative [facility] Hemoglobin [Mass/volume] in BloodOrdered By: Malcolm Gaston on 02-10-2025 Hemoglobin (Bld) [Mass/Vol] Hemoglobin [Mass/volume] in Blood Low 11.8-15.4 [facility] Hepatic Panelon 02-10-2025 Albumin [Mass/Vol] 3.6 g/dL Normal 3.5-5.7 [facility] Comment on above: Performed By: #### C BC, HEPATIC, BMP, LIPASE #### [address] Albumin/Globulin [Mass ratio] 1.4 {ratio} Normal [facility] Comment on above: Performed By: #### C BC, HEPATIC, BMP, LIPASE #### [address] ALP [Catalytic activity/Vol] 74 U/L Normal 34-104 [facility] Comment on above: Performed By: #### C BC, HEPATIC, BMP, LIPASE #### [place] [id number] [place] ALT [Catalytic activity/Vol] 13 U/L Normal 7-52 [facility] Comment on above: Performed By: #### C BC, HEPATIC, BMP, LIPASE #### [place] [address] [place] AST [Catalytic activity/Vol] 17 U/L Normal 13-39 [facility] Comment on above: Performed By: #### C BC, HEPATIC, BMP, LIPASE #### [place] [address] [place] Bilirubin [Mass/Vol] 0.4 mg/dL Normal 0.3-1.0 [facility] Comment on above: Performed By: #### C BC, HEPATIC, BMP, LIPASE #### [address] Bilirubin,Indirect 0.3 mg/dL Normal [facility] Comment on above: Performed By: #### C BC, HEPATIC, BMP, LIPASE #### [address] Bilirubin.indirect [Mass/Vol] 0.10 mg/dL Normal 0.03-0.18 [facility] Comment on above: Performed By: #### C BC, HEPATIC, BMP, LIPASE #### [address] Globulin (S) [Mass/Vol] 2.6 g/dL Normal [facility] Comment on above: Performed By: #### C BC, HEPATIC, BMP, LIPASE #### [address] Protein [Mass/Vol] 6.2 g/dL Low 6.4-8.9 [facility] Comment on above: Performed By: #### C BC, HEPATIC, BMP, LIPASE #### [address] Ketones Test strip Ql (U)Ord ered By: Malcolm Gaston on 02-10-2025 Ketones Ql (U) Ketones [Presence] in Urine by Test strip [facility] Negative [facility] Leukocyte esterase [Presence ] in Urine by Test stripOrdered By: Malcolm Gaston on 02-10-2025 Leukocyte esterase Test strip Ql (U) Leukocyte esterase [Presence] in Urine by Test strip High Negative [facility] Leukocytes [#/volume] correc ira for nucleated erythrocytes in Blood by Automated counOrdered By: Malcolm Gaston on 02-10-2025 WBC corrected for nucl RBC Auto (Bld) [#/Vol] Leukocytes [#/volume] corrected for nucleated erythrocytes in Blood by Automated coun 3.8-11.6 [facility] Lipaseon 02-10-2025 Lipase [Catalytic activity/Vol] 21.0 U/L Normal 11.0-82.0 [facility] Comment on above: Result Comment: PERF ORMED BY: [facility] [address] [place] [address] PATHOLOGIST HVAC SERVICE TECH BRANDI GONZALEZ M.D. Performed By: #### C BC, HEPATIC, BMP, LIPASE #### [address] Lipase [Enzymatic activity/v olume] in Serum or PlasmaOrdered By: Malcolm Gaston on 02-10-2025 Lipase [Catalytic activity/Vol] Lipase [Enzymatic activity/volume] in Serum or Plasma 11.0-82.0 [facility] Lymphocytes Auto (Bld) [#/Vo l]Ordered By: Malcolm Gaston on 02-10-2025 Lymphocytes (Bld) [#/Vol] Lymphocytes [#/volume] in Blood by Automated count Low 1.00-4.8 [facility] Lymphocytes/100 WBC Auto (Bl d)Ordered By: Malcolm Gaston on 02-10-2025 Lymphocytes/100 WBC (Bld) Lymphocytes/100 leukocytes in Blood by Automated count . [facility] MCH Auto (RBC) [Entitic mass ]Ordered By: Malcolm Gaston on 02-10-2025 MCH (RBC) [Entitic mass] MCH [Entitic mass] by Automated count 24.7-34.3 [facility] MCHC Auto (RBC) [Mass/Vol]Or dered By: Malcolm Gaston on 02-10-2025 MCHC (RBC) [Mass/Vol] MCHC [Mass/volume] by Automated count High 32.0-35.0 [facility] MCV Auto (RBC) [Entitic vol] Ordered By: Malcolm Gasotn on 02-10-2025 MCV (RBC) [Entitic vol] MCV [Entitic vol ume] by Automated count 80-100 [facility] Monocyte distribution width [Entitic volume] in Blood by AutomatedOrdered By: Malcolm Gaston on 02-10-2025 Monocyte distribution width Auto (Bld) [Entitic vol] Monocyte distribution width [Entitic volume] in Blood by Automated High 0.00-20.00 [facility] Comment on above: For adults in ED, MD W > 20.0 may be associated with a higher risk of sepsis during the first 12 hrs of hospital admission Monocytes Auto (Bld) [#/Vol] Ordered By: Malcolm Gaston on 02-10-2025 Monocytes (Bld) [#/Vol] Automated blood monocyte count 0.0-0.8 [facility] Monocytes/100 WBC Auto (Bld) Ordered By: Malcolm Gaston on 02-10-2025 Monocytes/100 WBC (Bld) Automated monocyte % . [facility] Neutrophils Auto (Bld) [#/Vo l]Ordered By: Malcolm Gaston on 02-10-2025 Neutrophils (Bld) [#/Vol] Neutrophils [#/volume] in Blood by Automated count 1.8-7.7 [facility] Neutrophils/100 WBC Auto (Bl d)Ordered By: Malcolm Gaston on 02-10-2025 Neutrophils/100 WBC (Bld) Automated neutrophil % . [facility] Nitrite Test strip Ql (U)Ord ered By: Malcolm Gaston on 02-10-2025 Nitrite Ql (U) Nitrite [Presence] in Urine by Test strip Negative [facility] No Panel InformationOrdered By: Malcolm Gaston on 02-10-2025 Estimated GFR (CKD-EPI) > 60.0 mL/Min [facility] Creatinine Clearance (Chem 136.70 [facility] Nucleated erythrocytes [Pres ence] in Blood by Automated countOrdered By: Malcolm Gaston on 02-10-2025 Nucleated RBC Auto Ql (Bld) Nucleated erythrocytes [Presence] in Blood by Automated count 0-0.5 [facility] Platelet mean volume Auto (B ld) [Entitic vol]Ordered By: Malcolm Gaston on 02-10-2025 Platelet mean volume (Bld) [Entitic vol] Platelet mean volume [Entitic volume] in Blood by Automated count 6.3-10.7 [facility] Platelets Auto (Bld) [#/Vol] Ordered By: Malcolm Gaston on 02-10-2025 Platelets (Bld) [#/Vol] Platelets [#/vol ume] in Blood by Automated count 150-450 [facility] Potassium [Moles/volume] in Serum or PlasmaOrdered By: Malcolm Gaston on 02-10-2025 Potassium [Moles/Vol] Potassium [Moles/volume] in Serum or Plasma 3.5-5.1 [facility] Protein Test strip (U) [Mass /Vol]Ordered By: Malcolm Gaston on 02-10-2025 Protein (U) [Mass/Vol] Protein [Mass/volume] in Urine by Test strip Negative [facility] Protein [Mass/volume] in Ser um or PlasmaOrdered By: Malcolm Gaston on 02-10-2025 Protein [Mass/Vol] Protein [Mass/volume] in Serum or Plasma Low 6.4-8.9 [facility] RBC Auto (Bld) [#/Vol]Ordere d By: Malcolm Gaston on 02-10-2025 RBC (Bld) [#/Vol] Erythrocytes [#/volume] in Blood by Automated count Low 3.60-5.00 [facility] Serum or plasma albumin/glob ulin mass ratioOrdered By: Malcolm Gaston on 02-10-2025 Albumin/Globulin [Mass ratio] Serum or plasma albumin/globulin mass ratio [facility] Serum or plasma anion gap de terminationOrdered By: Malcolm Gaston 02-10-2025 Anion gap [Moles/Vol] Serum or plasma anion gap determination 6.0-15.0 [facility] Serum or plasma non-glucuron idated bilirubin measurement (mass/volume)Ordered By: Malcolm Gaston 02-10-2025 Bilirubin.indirect [Mass/Vol] Serum or plasma non-glucuronidated bilirubin measurement (mass/volume) [facility] Sodium [Moles/volume] in Ser um or PlasmaOrdered By: Malcolm Gaston 02-10-2025 Sodium [Moles/Vol] Sodium [Moles/volume] in Serum or Plasma 136-145 [facility] Specific gravity Test strip (U) [Rel density]Ordered By: Malcolm Gaston 02-10-2025 Specific gravity (U) [Rel density] Specific gravity of Urine by Test strip 1.001-1.030 [facility] Urea nitrogen [Mass/volume] in Serum or PlasmaOrdered By: Malcolm Gaston 02-10-2025 Urea nitrogen [Mass/Vol] Urea nitrogen [Mass/volume] in Serum or Plasma Low 7-25 [facility] Urobilinogen Test strip (U) [Mass/Vol]Ordered By: Malcolm Gaston on 02-10-2025 Urobilinogen (U) [Mass/Vol] Urobilinogen [Mass/volume] in Urine by Test strip Normal [facility] WBC Auto (Bld) [#/Vol]Ordere d By: Malcolm Gaston on 02-10-2025 WBC (Bld) [#/Vol] Leukocytes [#/volume] in Blood by Automated count 3.8-11.6 [facility] pH Test strip (U)Ordered By: Malcolm Gaston on 02-10-2025 pH (U) pH of Urine by Test strip 5.0-9.0 [facility] Urinalysis macro (dipstick) panel (U)on 01-31-2025 Bilirubin, UA Negative Negative - 4(70) +++ mg/dL [facility] Blood, UA Negative Negative - 50 Brent/mcL [facility] Clarity, UA Clear [facility] Color, UA Yellow [facility] Glucose, UA Negative Negative - 2000(110) ++++ mg/dL [facility] Interpretation and review of laboratory results Abnormal [facility] Ketones, UA Negative Negative - 160(16) ++++ mg/dL [facility] Leukocytes, UA Positive Negative - 500+++ Kae/mcL [facility] Comment on above: small Nitrite, UA Negative Negative - Positive [facility] pH, UA 6 5 - 9 [facility] Protein, UA Negative Negative - 2000(20) ++++ mg/dL [facility] Spec Grav, UA 1.02 1 - 1.03 [facility] Urobilinogen, UA 0.2 0.2 - 12 mg/dL [facility] US OB 14+ WEEKS ANATOMY SCAN on [...] II, MD, PHD at 28-Dec-2024 09:45:37 PM [employer] Normal Not Available Comment on above: Order Comment: US OB ANATOMY SINGLE W US OB CERVICAL LENGTH Estimated Date of Delivery: 05/12/25 Gestational Age as of 11/30/2024: 16w5d Urinalysis macro (dipstick) panel (U)on 12-28-2024 Bilirubin, UA Negative Negative - 4(70) +++ mg/dL [facility] Blood, UA Positive Negative - 50 Brent/mcL [facility] Comment on above: trace Clarity, UA Clear [facility] Color, UA Yellow [facility] Glucose, UA Negative Negative - 1999(110) ++++ mg/dL [facility] Interpretation and review of laboratory results Abnormal [facility] Ketones, UA Negative Negative - 160(16) ++++ mg/dL [facility] Leukocytes, UA Negative Negative - 500+++ Kae/mcL [facility] Nitrite, UA Negative Negative - Positive [facility] pH, UA 6 5 - 9 [facility] Protein, UA Negative Negative - 1999(20) ++++ mg/dL [facility] Spec Grav, UA 1.015 1 - 1.03 [facility] Urobilinogen, UA 0.2 0.2 - 12 mg/dL [facility] IGP,APTIMA HPV,AGE GDLNon AGE GDLN ACOG TESTING Note . [facility] Comment on above: TESTS RESULT FLAG UN ITS REF RANGE LAB Clinician Provided Cytology Information Source.............Cervix;Endocervix No. of containers..01 ThinPrep Vial Age Algo ACOG Katerin... 3065 FLAG LEGEND: L-Low Normal,H-High Normal,LL-Alert Low,HH-Alert High <-Panic Low,>-Panic High,A-Abnormal,AA-Critical Abnormal Performed at: 01 =G [facility] [place] [address] Shea Yun MD, HPV APTIMA Negative Negative [facility] Comment on above: This nucleic acid am plification test detects fourteen high- risk HPV types (16,18,31,33,35,39,45,51,52,56,58,59,66,68) without differentiation. Performed at: =G - [facility] [id number] Family Dentist: Shea Yun MD, Phone: [phone] Performed at: - [facility] [id number] Family Dentist: Shea Yun MD, Phone: [phone] IGP, APTIMA HPV, RFX 16/18,45 Note . [facility] Comment on above: TESTS RESULT FLAG UN ITS REF RANGE LAB DIAGNOSIS: 02 NEGATIVE FOR INTRAEPITHELIAL LESION OR MALIGNANCY. FUNGAL ORGANISMS MORPHOLOGICALLY CONSISTENT WITH TIGIST SPECIES ARE PRESENT. THIS SPECIMEN WAS RESCREENED PART OF OUR BENEFITS COUNSELOR PROGRAM. Specimen adequacy: 02 Satisfactory for evaluation. No endocervical component is identified. Performed by: Lisa Gonzalez Group Leader [employer] QC reviewed by: Lisa Gonzalez, Group Leader [employer] ([facility]) . 02 Note: Note 02 The [...] <-Panic Low,>-Panic High,A-Abnormal,AA-Critical Abnormal Performed at: [address] [facility] [place] [address] Shea Yun MD, BRUSH-SPATULA CERVIX ENDOCERVIX [facility] Urinalysis macro (dipstick) panel (U)on 11-30-2024 Bilirubin, UA Negative Negative - 4(70) +++ mg/dL [facility] Blood, UA Positive Negative - 50 Brent/mcL [facility] Comment on above: Trace-Intact Clarity, UA Clear [facility] Color, UA Yellow [facility] Glucose, UA Negative Negative - 1999(110) ++++ mg/dL [facility] Interpretation and review of laboratory results Abnormal [facility] Ketones, UA Negative Negative - 160(16) ++++ mg/dL [facility] Leukocytes, UA Trace Negative - 500+++ Kae/mcL [facility] Nitrite, UA Negative Negative - Positive [facility] pH, UA 7 5 - 9 [facility] Protein, UA Negative Negative - 1999(20) ++++ mg/dL [facility] Spec Grav, UA 1.015 1 - 1.03 [facility] Urobilinogen, UA 0.2 0.2 - 12 mg/dL [facility] Urinalysis macro (dipstick) panel (U)on 11-02-2024 Bilirubin, UA Negative Negative - 4(70) +++ mg/dL [facility] Blood, UA Negative Negative - 50 Brent/mcL [facility] Clarity, UA Clear [facility] Color, UA Yellow [facility] Glucose, UA Negative Negative - 2000(110) ++++ mg/dL [facility] Interpretation and review of laboratory results Normal [facility] Ketones, UA Negative Negative - 160(16) ++++ mg/dL [facility] Leukocytes, UA Negative Negative - 500+++ Kae/mcL [facility] Nitrite, UA Negative Negative - Positive [facility] pH, UA 7 5 - 9 [facility] Protein, UA Negative Negative - 1999(20) ++++ mg/dL [facility] Spec Grav, UA 1.02 1 - 1.03 [facility] Urobilinogen, UA 0.2 0.2 - 12 mg/dL [facility] Alanine aminotransferase [En zymatic activity/volume] in Serum or PlasmaOrdered By: Ale Fragoso on 10-26-2024 ALT [Catalytic activity/Vol] Alanine aminotransferase [Enzymatic activity/volume] in Serum or Plasma 7-52 [facility] Albumin [Mass/volume] in Ser um or Plasma by Bromocresol green (BCG) dye binding methoOrdered By: Ale Fragoso on 10-26-2024 Albumin BCG dye [Mass/Vol] Albumin [Mass/volume] in Serum or Plasma by Bromocresol green (BCG) dye binding metho 3.5-5.7 [facility] Alkaline phosphatase [Enzyma tic activity/volume] in Serum or PlasmaOrdered By: Ale Fragoso on 10-26-2024 ALP [Catalytic activity/Vol] Alkaline phosphatase [Enzymatic activity/volume] in Serum or Plasma 34-104 [facility] Appearance of UrineOrdered B y: Ale Fragoso on 10-26-2024 Appearance (U) Urine appearance Clear [facility] Aspartate aminotransferase [ Enzymatic activity/volume] in Serum or PlasmaOrdered By: Ale Fragoso on 10-26-2024 AST [Catalytic activity/Vol] Aspartate aminotransferase [Enzymatic activity/volume] in Serum or Plasma 13-39 [facility] Basophils Auto (Bld) [#/Vol] Ordered By: Ale Fragoso on 10-26-2024 Basophils (Bld) [#/Vol] Automated basoph il count 0.0-0.2 [facility] Basophils/100 WBC Auto (Bld) Ordered By: Ale Fragoso on 10-26-2024 Basophils/100 WBC (Bld) Automated basophil % . [facility] Bilirubin Test strip Ql (U)O rdered By: Ale Fragoso on 10-26-2024 Bilirubin Ql (U) Bilirubin.total [Presence] in Urine by Test strip Negative [facility] Bilirubin.total [Mass/volume ] in Serum or PlasmaOrdered By: Ale Fragoso on 10-26-2024 Bilirubin [Mass/Vol] Bilirubin.total [Mass/volume] in Serum or Plasma 0.3-1.0 [facility] Calcium [Mass/volume] in Ser um or PlasmaOrdered By: Ale Fragoso on 10-26-2024 Calcium [Mass/Vol] Calcium [Mass/volume] in Serum or Plasma Low 8.6-10.3 [facility] Carbon dioxide, total [Moles /volume] in Serum or PlasmaOrdered By: Ale Fragoso on 10-26-2024 CO2 [Moles/Vol] Carbon dioxide, total [Moles/volume] in Serum or Plasma 21.0-31.0 [facility] Chloride [Moles/volume] in S mehdi or PlasmaOrdered By: Ale Fragoso on 10-26-2024 Chloride [Moles/Vol] Chloride [Moles/volume] in Serum or Plasma 98-107 [facility] Color Auto (U)Ordered By: Toribio Fragoso on 10-26-2024 Color (U) Color of Urine by Auto Yellow [facility] Complete Blood Count Auto Di ffon 10-26-2024 Basophils (Bld) [#/Vol] 0.0 10*3/uL Normal 0.0-0.2 [facility] Comment on above: Result Comment: PERF ORMED BY: [place] [address] PATHOLOGIST HVAC SERVICE TECH BRANDI GONZALEZ M.D. Performed By: #### C BC, HEPATIC, BMP, LIPASE #### [address] Basophils/100 WBC (Bld) 0.6 % Normal . T [facility] Comment on above: Performed By: #### C BC, HEPATIC, BMP, LIPASE #### [facility] [address] [place] [address] [place] Eosinophils (Bld) [#/Vol] 0.3 10*3/uL Normal 0.0-0.45 [facility] Comment on above: Performed By: #### C BC, HEPATIC, BMP, LIPASE #### [facility] [address] [place] [address] [place] Eosinophils/100 WBC (Bld) 5.6 % Normal . [facility] Comment on above: Performed By: #### C BC, HEPATIC, BMP, LIPASE #### [address] Erythrocyte distribution width (RBC) [Ratio] 13.6 % Normal 11.9-15.3 [facility] Comment on above: Performed By: #### C BC, HEPATIC, BMP, LIPASE #### [address] Hematocrit (Bld) [Volume fraction] 35.6 % Normal 34.0-46.4 [facility] Comment on above: Performed By: #### C BC, HEPATIC, BMP, LIPASE #### [address] Hemoglobin (Bld) [Mass/Vol] 12.3 g/dL Normal 11.8-15.4 [facility] Comment on above: Performed By: #### C BC, HEPATIC, BMP, LIPASE #### [address] Lymphocytes (Bld) [#/Vol] 0.8 10*3/uL Low 1.00-4.8 [facility] Comment on above: Performed By: #### C BC, HEPATIC, BMP, LIPASE #### [address] Lymphocytes/100 WBC (Bld) 18.1 % Normal . [facility] Comment on above: Performed By: #### C BC, HEPATIC, BMP, LIPASE #### [address] MCH (RBC) [Entitic mass] 32.2 pg Normal 24.7-34.3 [facility] Comment on above: Performed By: #### C BC, HEPATIC, BMP, LIPASE #### [address] MCV (RBC) [Entitic vol] 92.9 fL Normal 80-100 T [facility] Comment on above: Performed By: #### C BC, HEPATIC, BMP, LIPASE #### [facility] [address] Mean Corpuscular HGB Conc 34.6 g/dL Normal 32.0-35.0 [facility] Comment on above: Performed By: #### C BC, HEPATIC, BMP, LIPASE #### [address] Monocytes (Bld) [#/Vol] 0.4 10*3/uL Normal 0.0-0.8 [facility] Comment on above: Performed By: #### C BC, HEPATIC, BMP, LIPASE #### [place] [address] [place] Monocytes/100 WBC (Bld) 17.94 % Normal 0.00-20.00 [facility] Comment on above: Performed By: #### C BC, HEPATIC, BMP, LIPASE #### [place] [address] [place] Monocytes/100 WBC (Bld) 8.1 % Normal . [facility] Comment on above: Performed By: #### C BC, HEPATIC, BMP, LIPASE #### [address] Neutrophils (Bld) [#/Vol] 3.1 10*3/uL Normal 1.8-7.7 [facility] Comment on above: Performed By: #### C BC, HEPATIC, BMP, LIPASE #### [place] [address] [place] Neutrophils/100 WBC (Bld) 67.6 % Normal . [facility] Comment on above: Performed By: #### C BC, HEPATIC, BMP, LIPASE #### [place] [address] [place] NRBC% 0.1 /100{WBC} Normal 0-0.5 [facility] Comment on above: Performed By: #### C BC, HEPATIC, BMP, LIPASE #### [address] Platelet mean volume (Bld) [Entitic vol] 7.6 fL Normal 6.3-10.7 [facility] Comment on above: Performed By: #### C BC, HEPATIC, BMP, LIPASE #### [address] Platelets (Bld) [#/Vol] 194 10*3/uL Normal 150-450 [facility] Comment on above: Performed By: #### C BC, HEPATIC, BMP, LIPASE #### [address] RBC (Bld) [#/Vol] 3.83 10*6/uL Normal 3.60-5.[address] [facility] Comment on above: Performed By: #### C BC, HEPATIC, BMP, LIPASE #### [address] WBC (Bld) [#/Vol] 4.6 10*3/uL Normal 3.8-11.6 [facility] Comment on above: Performed By: #### C BC, HEPATIC, BMP, LIPASE #### [address] Comprehensive Metabolic Pane al 10-26-2024 Albumin [Mass/Vol] 3.6 g/dL Normal 3.5-5.7 [facility] Comment on above: Performed By: #### C BC, HEPATIC, BMP, LIPASE #### [address] Albumin/Globulin [Mass ratio] 1.5 {ratio} Normal [facility] Comment on above: Performed By: #### C BC, HEPATIC, BMP, LIPASE #### [address] ALP [Catalytic activity/Vol] 42 U/L Normal 34-104 [facility] Comment on above: Performed By: #### C BC, HEPATIC, BMP, LIPASE #### [address] ALT [Catalytic activity/Vol] 13 U/L Normal 7-52 [facility] Comment on above: Performed By: #### C BC, HEPATIC, BMP, LIPASE #### [facility] [address] Anion gap [Moles/Vol] 7.3 mmol/L Normal 6.0-15.0 [facility] Comment on above: Performed By: #### C BC, HEPATIC, BMP, LIPASE #### [facility] [address] AST [Catalytic activity/Vol] 16 U/L Normal 13-39 [facility] Comment on above: Performed By: #### C BC, HEPATIC, BMP, LIPASE #### [address] Bilirubin [Mass/Vol] 0.3 mg/dL Normal 0.3-1.0 [facility] Comment on above: Performed By: #### C BC, HEPATIC, BMP, LIPASE #### [address] Calcium [Mass/Vol] 8.5 mg/dL Low 8.6-10.3 [facility] Comment on above: Performed By: #### C BC, HEPATIC, BMP, LIPASE #### [address] Chloride [Moles/Vol] 106 mmol/L Normal 98-107 [facility] Comment on above: Performed By: #### C BC, HEPATIC, BMP, LIPASE #### [address] CO2 [Moles/Vol] 25.5 mmol/L Normal 21.0-31.0 [facility] Comment on above: Performed By: #### C BC, HEPATIC, BMP, LIPASE #### [address] Creatinine [Mass/Vol] 0.55 mg/dL Low 0.60-1.20 [facility] Comment on above: Performed By: #### C BC, HEPATIC, BMP, LIPASE #### [address] Creatinine Clr Calc Pharmacy 121.47 Normal [facility] Comment on above: Performed By: #### C BC, HEPATIC, BMP, LIPASE #### [facility] [address] GFR/1.73 sq M.predicted MDRD (S/P/Bld) [Vol rate/Area] mL/min/{1.73_m2} Normal [facility] Comment on above: Performed By: #### C BC, HEPATIC, BMP, LIPASE #### [facility] [address] Globulin (S) [Mass/Vol] 2.4 g/dL Normal T [facility] Comment on above: Performed By: #### C BC, HEPATIC, BMP, LIPASE #### [address] Glucose [Mass/Vol] 90 mg/dL Normal 70-100 [facility] Comment on above: Result Comment: [facility] Glucose Reference Range is dependent on time and content of last meal. Glucose of more than 200 mg/dL in a nonstressed, ambulatory subject supports the diagnosis of Diabetes Mellitus. ADA recommended reference range Performed By: #### C BC, HEPATIC, BMP, LIPASE #### [address] Potassium [Moles/Vol] 3.8 mmol/L Normal 3.5-5.1 [facility] Comment on above: Performed By: #### C BC, HEPATIC, BMP, LIPASE #### [address] Protein [Mass/Vol] 6.0 g/dL Low 6.4-8.9 [facility] Comment on above: Performed By: #### C BC, HEPATIC, BMP, LIPASE #### [address] Sodium [Moles/Vol] 135 mmol/L Low 136-145 [facility] Comment on above: Performed By: #### C BC, HEPATIC, BMP, LIPASE #### [address] Urea nitrogen [Mass/Vol] 9 mg/dL Normal 7-25 [facility] Comment on above: Performed By: #### C BC, HEPATIC, BMP, LIPASE #### [facility] [address] Creatinine [Mass/volume] in Serum or PlasmaOrdered By: Ale Fragoso on 10-26-2024 Creatinine [Mass/Vol] Creatinine [Mass/volume] in Serum or Plasma Low 0.60-1.20 [facility] Eosinophils Auto (Bld) [#/Vo l]Ordered By: Ale Fragoso on 10-26-2024 Eosinophils (Bld) [#/Vol] Automated eosinophil count 0.0-0.45 [facility] Eosinophils/100 WBC Auto (Bl d)Ordered By: Ale Fragoso on 10-26-2024 Eosinophils/100 WBC (Bld) Automated eosinophil % . [facility] Erythrocyte distribution wid th Auto (RBC) [Ratio]Ordered By: Ale Fragoso on 10-26-2024 Erythrocyte distribution width (RBC) [Ratio] Erythrocyte distribution width [Ratio] by Automated count 11.9-15.3 [facility] Globulin Calc (S) [Mass/Vol] Ordered By: Ale Fragoso on 10-26-2024 Globulin (S) [Mass/Vol] Serum globulin measurement by calculation (mass/volume) [facility] Glucose [Mass/volume] in Ser um or PlasmaOrdered By: Ale Fragoso on 10-26-2024 Glucose [Mass/Vol] Glucose [Mass/volume] in Serum or Plasma 70-100 [facility] Comment on above: ADA recommended [...] [Mass/volume] in Urine by Test strip Normal [facility] Hematocrit Auto (Bld) [Volum e fraction]Ordered By: Ale Fragoso on 10-26-2024 Hematocrit (Bld) [Volume fraction] Hematocrit [Volume Fraction] of Blood by Automated count 34.0-46.4 [facility] Hemoglobin Test strip Ql (U) Ordered By: Ale Fragoso on 10-26-2024 Hemoglobin Ql (U) Hemoglobin [Presence] in Urine by Test strip Negative [facility] Hemoglobin [Mass/volume] in BloodOrdered By: Ale Fragoso on 10-26-2024 Hemoglobin (Bld) [Mass/Vol] Hemoglobin [Mass/volume] in Blood 11.8-15.4 [facility] Ketones Test strip Ql (U)Ord ered By: Ale Fragoso on 10-26-2024 Ketones Ql (U) Ketones [Presence] in Urine by Test strip Negative [facility] Leukocyte esterase [Presence ] in Urine by Test stripOrdered By: Ale Fragoso on 10-26-2024 Leukocyte esterase Test strip Ql (U) Leukocyte esterase [Presence] in Urine by Test strip Negative [facility] Leukocytes [#/volume] correc ira for nucleated erythrocytes in Blood by Automated counOrdered By: Ale Fragoso on 10-26-2024 WBC corrected for nucl RBC Auto (Bld) [#/Vol] Leukocytes [#/volume] corrected for nucleated erythrocytes in Blood by Automated coun 3.8-11.6 [facility] Lymphocytes Auto (Bld) [#/Vo l]Ordered By: Ale Fragoso on 10-26-2024 Lymphocytes (Bld) [#/Vol] Lymphocytes [#/volume] in Blood by Automated count Low 1.00-4.8 [facility] Lymphocytes/100 WBC Auto (Bl d)Ordered By: Ale Fragoso on 10-26-2024 Lymphocytes/100 WBC (Bld) Lymphocytes/100 leukocytes in Blood by Automated count . [facility] MCH Auto (RBC) [Entitic mass ]Ordered By: Ale Fragoso on 10-26-2024 MCH (RBC) [Entitic mass] MCH [Entitic mass] by Automated count 24.7-34.3 [facility] MCHC Auto (RBC) [Mass/Vol]Or dered By: Ale Fragoso on 10-26-2024 MCHC (RBC) [Mass/Vol] MCHC [Mass/volume] by Automated count 32.0-35.0 [facility] MCV Auto (RBC) [Entitic vol] Ordered By: Ale Fragoso on 10-26-2024 MCV (RBC) [Entitic vol] MCV [Entitic vol ume] by Automated count 80-100 [facility] Magnesiumon 10-26-2024 Magnesium [Mass/Vol] 1.9 mg/dL Normal 1.9-2.7 [facility] Comment on above: Result Comment: PERF ORMED BY: [facility] [address] [place] [address] PATHOLOGIST HVAC SERVICE TECH BRANDI GONZALEZ M.D. Performed By: #### C BC, HEPATIC, BMP, LIPASE #### [facility] [address] Magnesium [Mass/volume] in S mehdi or PlasmaOrdered By: Ale Fragoso on 10-26-2024 Magnesium [Mass/Vol] Magnesium [Mass/volume] in Serum or Plasma 1.9-2.7 [facility] Monocyte distribution width [Entitic volume] in Blood by AutomatedOrdered By: Ale Fragoso on 10-26-2024 Monocyte distribution width Auto (Bld) [Entitic vol] Monocyte distribution width [Entitic volume] in Blood by Automated 0.00-20.00 [facility] Monocytes Auto (Bld) [#/Vol] Ordered By: Ale Fragoso on 10-26-2024 Monocytes (Bld) [#/Vol] Automated blood monocyte count 0.0-0.8 [facility] Monocytes/100 WBC Auto (Bld) Ordered By: Ale Fragoso on 10-26-2024 Monocytes/100 WBC (Bld) Automated monocyte % . [facility] Neutrophils Auto (Bld) [#/Vo l]Ordered By: Ale Fragoso on 10-26-2024 Neutrophils (Bld) [#/Vol] Neutrophils [#/volume] in Blood by Automated count 1.8-7.7 [facility] Neutrophils/100 WBC Auto (Bl d)Ordered By: Ale Fragoso on 10-26-2024 Neutrophils/100 WBC (Bld) Automated neutrophil % . [facility] Nitrite Test strip Ql (U)Ord ered By: Ale Fragoso on 10-26-2024 Nitrite Ql (U) Nitrite [Presence] in Urine by Test strip Negative [facility] No Panel InformationOrdered By: Ale Fragoso on 10-26-2024 Estimated GFR (CKD-EPI) > 60.0 mL/Min [facility] Pharmacy Creatinine Clearance (Chem 121.47 [facility] Nucleated erythrocytes [Pres ence] in Blood by Automated countOrdered By: Ale Fragoso on 10-26-2024 Nucleated RBC Auto Ql (Bld) Nucleated erythrocytes [Presence] in Blood by Automated count 0-0.5 [facility] Platelet mean volume Auto (B ld) [Entitic vol]Ordered By: Ale Fragoso on 10-26-2024 Platelet mean volume (Bld) [Entitic vol] Platelet mean volume [Entitic volume] in Blood by Automated count 6.3-10.7 [facility] Platelets Auto (Bld) [#/Vol] Ordered By: Ale Fragoso on 10-26-2024 Platelets (Bld) [#/Vol] Platelets [#/vol ume] in Blood by Automated count 150-450 [facility] Potassium [Moles/volume] in Serum or PlasmaOrdered By: Ale Fragoso on 10-26-2024 Potassium [Moles/Vol] Potassium [Moles/volume] in Serum or Plasma 3.5-5.1 [facility] Protein Test strip (U) [Mass /Vol]Ordered By: Ale Fragoso on 10-26-2024 Protein (U) [Mass/Vol] Protein [Mass/volume] in Urine by Test strip Negative [facility] Protein [Mass/volume] in Ser um or PlasmaOrdered By: Ale Fragoso on 10-26-2024 Protein [Mass/Vol] Protein [Mass/volume] in Serum or Plasma Low 6.4-8.9 [facility] RBC Auto (Bld) [#/Vol]Ordere d By: Ale Fragoso on 10-26-2024 RBC (Bld) [#/Vol] Erythrocytes [#/volume] in Blood by Automated count 3.60-5.00 [facility] Serum or plasma albumin/glob ulin mass ratioOrdered By: Ale Fragoso on 10-26-2024 Albumin/Globulin [Mass ratio] Serum or plasma albumin/globulin mass ratio [facility] Serum or plasma anion gap de terminationOrdered By: Ale Fragoso on 10-26-2024 Anion gap [Moles/Vol] Serum or plasma anion gap determination 6.0-15.0 [facility] Sodium [Moles/volume] in Ser um or PlasmaOrdered By: Ale Fragoso on 10-26-2024 Sodium [Moles/Vol] Sodium [Moles/volume] in Serum or Plasma Low 136-145 [facility] Specific gravity Test strip (U) [Rel density]Ordered By: Ale Fragoso on 10-26-2024 Specific gravity (U) [Rel density] Specific gravity of Urine by Test strip 1.001-1.030 [facility] US renal RTon 10-26-2024 US renal RT [place] [address] Ultrasound Report Signed Patient: Breana Casas MR#: [id number] : 1990 Acct:[id number] Age/Sex: 33 / F ADM Date: 10/26/24 Loc: ER Room: Type: [facility] ER Attending Dr: Ordering Provider: Ale [...] Tanner Burleson M.D.10/26/2024 11:46 AM Dictation Location: [place] [address] Tech: Karmen Lobo Transcribed By: SHANE 10/26/24 1146 Dictated By: Tanner Burleson DO 10/26/24 1139 Signed By: 10/26/24 1146 Normal [facility] Urea nitrogen [Mass/volume] in Serum or PlasmaOrdered By: Ale Fragoso on 10-26-2024 Urea nitrogen [Mass/Vol] Urea nitrogen [Mass/volume] in Serum or Plasma 04-29 [facility] Urinalysison 10-26-2024 Appearance (U) Clear Normal Clear [facility] Comment on above: Order Comment: Name Collection Type:: Clean-Voided Midstream Performed By: #### U A #### [facility] [address] [place] [address] [place] Bilirubin,Urine Negative Normal Negative [facility] Comment on above: Order Comment: Name Collection Type:: Clean-Voided Midstream Performed By: #### U A #### [facility] [address] [place] [address] [place] Color (U) Light-Yellow Normal Yellow [facility] Comment on above: Order Comment: Name Collection Type:: Clean-Voided Midstream Performed By: #### U A #### [facility] [address] [place] [address] [place] Glucose Ql (U) Normal Normal Normal [facility] Comment on above: Order Comment: Name Collection Type:: Clean-Voided Midstream Performed By: #### U A #### [facility] [address] [place] [address] [place] Ketones Ql (U) Negative Normal Negative [facility] Comment on above: Order Comment: Name Collection Type:: Clean-Voided Midstream Performed By: #### U A #### [facility] [address] [place] [address] [place] Leukocyte esterase Test strip Ql (U) Negative Normal Negative [facility] Comment on above: Order Comment: Name Collection Type:: Clean-Voided Midstream Performed By: #### U A #### [facility] [address] [place] [address] [place] Nitrite,Urine Negative Normal Negative [facility] Comment on above: Order Comment: Name Collection Type:: Clean-Voided Midstream Performed By: #### U A #### [facility] [address] [place] [address] [place] Occult Blood,Urine Negative Normal Negative [facility] Comment on above: Order Comment: Name Collection Type:: Clean-Voided Midstream Result Comment: PERF ORMED BY: [place] [address] PATHOLOGIST HVAC SERVICE TECH BRANDI GONZALEZ M.D. Performed By: #### U A #### [address] pH (U) 6.5 [pH] Normal 5.0-9.0 [facility] Comment on above: Order Comment: Name Collection Type:: Clean-Voided Midstream Performed By: #### U A #### [address] Protein,Urine Negative Normal Negative [facility] Comment on above: Order Comment: Name Collection Type:: Clean-Voided Midstream Performed By: #### U A #### [address] Specificy [place],Urine 1.020 Normal 1.001-1.030 [facility] Comment on above: Order Comment: Name Collection Type:: Clean-Voided Midstream Performed By: #### U A #### [address] Urobilinogen,Urine Normal Normal Normal [facility] Comment on above: Order Comment: Name Collection Type:: Clean-Voided Midstream Performed By: #### U A #### [address] Urobilinogen Test strip (U) [Mass/Vol]Ordered By: Ale Fragoso on 10-26-2024 Urobilinogen (U) [Mass/Vol] Urobilinogen [Mass/volume] in Urine by Test strip Normal [facility] WBC Auto (Bld) [#/Vol]Ordere d By: Ale Fragoso on 10-26-2024 WBC (Bld) [#/Vol] Leukocytes [#/volume] in Blood by Automated count 3.8-11.6 [facility] pH Test strip (U)Ordered By: Ale Fragoso on 10-26-2024 pH (U) pH of Urine by Test strip 5.0-9.0 [facility] BOX TESTon 10-19-2024 BOX TEST SENT OUT [facility] BOX1 [facility] BOX2 10/19/24 [facility] ( test) Ql (U)o n 10-01-2024 Interpretation and review of laboratory results Abnormal [facility] Preg Test, Ur Positive Negative [facility] Urinalysis macro (dipstick) panel (U)on 10-01-2024 Bilirubin, UA Negative Negative - 4(70) +++ mg/dL [facility] Blood, UA Negative Negative - 50 Brent/mcL [facility] Clarity, UA Clear [facility] Color, UA Yellow [facility] Glucose, UA Negative Negative - 2000(110) ++++ mg/dL [facility] Interpretation and review of laboratory results Normal [facility] Ketones, UA Negative Negative - 160(16) ++++ mg/dL [facility] Leukocytes, UA Negative Negative - 500+++ Kae/mcL [facility] Nitrite, UA Negative Negative - Positive [facility] pH, UA 6 5 - 9 [facility] Protein, UA Negative Negative - 1999(20) ++++ mg/dL [facility] Spec Grav, UA 1.005 1 - 1.03 [facility] Urobilinogen, UA 0.2 0.2 - 12 mg/dL [facility] TBH PREG QUANT HCGon 024 HCG QUANTITATIVE 73750 mIU/mL [facility] Comment on above: 5-50 0.2-1 WEEK 50-500 1-2 WEEKS 100-5,000 2-3 WEEKS 500-10,000 3-4 WEEKS 1,000-50,000 4-5 WEEKS 10,000-100,000 5-6 WEEKS 15,000-200,000 6-8 WEEKS 10,000-100,000 2[facility] HCGon 024 HCG QUANTITATIVE 6224 mIU/mL [facility] Comment on above: 5-50 0.2-1 WEEK 50-500 1-2 WEEKS 100-5,000 2-3 WEEKS 500-10,000 3-4 WEEKS 1,000-50,000 4-5 WEEKS 10,000-100,000 5-6 WEEKS 15,000-200,000 6-8 WEEKS 10,000-100,000 2-3 MONTHS [facility] ALL PROGESTERONEon PROGESTERONE 21.4 ng/mL . [facility] Comment on above: Follicular phase 0.1 - 0.9 Luteal phase 1.8 - 23.9 Ovulation phase 0.1 - 12.0 First trimester 11.0 - 44.3 Second trimester 25.4 - 83.3 Third trimester 58.7 - 214.0 Postmenopausal 0.0 - 0.1 Performed at: [facility] [place] [id number] Family Dentist: Lebron Manzo PhD, Phone: [phone] [facility] HCG ( test) Ql (U)o n 06-29-2024 Interpretation and review of laboratory results Normal [facility] Preg Test, Ur Negative [facility] Urinalysis macro (dipstick) panel (U)on 06-29-2024 Bilirubin, UA Negative Negative - 4(70) +++ mg/dL [facility] Blood, UA Positive Negative - 50 Brent/mcL [facility] Comment on above: trace Clarity, UA Clear [facility] Color, UA Yellow [facility] Glucose, UA Negative Negative - 1999(110) ++++ mg/dL [facility] Interpretation and review of laboratory results Normal [facility] Ketones, UA Negative Negative - 160(16) ++++ mg/dL [facility] Leukocytes, UA Negative Negative - 500+++ Kae/mcL [facility] Nitrite, UA Negative Negative - Positive [facility] pH, UA 5.5 5 - 9 [facility] Protein, UA Negative Negative - 2000(20) ++++ mg/dL [facility] Spec Grav, UA 1.020 1 - 1.03 [facility] Urobilinogen, UA 1.0 0.2 - 12 mg/dL [facility] Alanine aminotransferase [En zymatic activity/volume] in Serum or PlasmaOrdered By: PROVIDER TEMP on 06-17-2024 ALT [Catalytic activity/Vol] 15 U/L Normal 7-52 [facility] Comment on above: Performed By: #### C BC, HEPATIC, BMP, LIPASE #### [facility] [address] [place] [address] Albumin [Mass/volume] in Ser um or Plasma by Bromocresol green (BCG) dye binding methoOrdered By: PROVIDER TEMP on 06-17-2024 Albumin BCG dye [Mass/Vol] 4.5 g/dL 3.5-5.7 [facility] Alkaline phosphatase [Enzyma tic activity/volume] in Serum or PlasmaOrdered By: PROVIDER TEMP on 06-17-2024 ALP [Catalytic activity/Vol] 58 U/L Normal 34-104 [facility] Comment on above: Performed By: #### C BC, HEPATIC, BMP, LIPASE #### [facility] [address] Aspartate aminotransferase [ Enzymatic activity/volume] in Serum or PlasmaOrdered By: PROVIDER TEMP on 06-17-2024 AST [Catalytic activity/Vol] 17 U/L Normal 13-39 [facility] Comment on above: Performed By: #### C BC, HEPATIC, BMP, LIPASE #### [facility] [address] [place] [address] Automated basophil %Ordered By: PROVIDER TEMP on 06-17-2024 Basophils/100 WBC (Bld) 1.1 % Normal . [facility] Comment on above: Performed By: #### C BC, HEPATIC, BMP, LIPASE #### [address] Automated basophil countOrde red By: PROVIDER TEMP on 06-17-2024 Basophils (Bld) [#/Vol] 0.0 10*3/uL Normal 0.0-0.2 [facility] Comment on above: Result Comment: PERF ORMED BY: [place] [address] PATHOLOGIST HVAC SERVICE TECH KHANG WEEKS M.D. Performed By: #### C BC, HEPATIC, BMP, LIPASE #### [address] Automated blood monocyte cou ntOrdered By: PROVIDER TEMP on 06-17-2024 Monocytes (Bld) [#/Vol] 0.3 10*3/uL Normal 0.0-0.8 [facility] Comment on above: Performed By: #### C BC, HEPATIC, BMP, LIPASE #### [address] Automated eosinophil %Ordere d By: PROVIDER TEMP on 06-17-2024 Eosinophils/100 WBC (Bld) 9.5 % Normal . [facility] Comment on above: Performed By: #### C BC, HEPATIC, BMP, LIPASE #### [address] Automated eosinophil countOr dered By: PROVIDER TEMP on 06-17-2024 Eosinophils (Bld) [#/Vol] 0.4 10*3/uL Normal 0.0-0.45 [facility] Comment on above: Performed By: #### C BC, HEPATIC, BMP, LIPASE #### [address] Automated monocyte %Ordered By: PROVIDER TEMP on 06-17-2024 Monocytes/100 WBC (Bld) 7.1 % Normal . [facility] Comment on above: Performed By: #### C BC, HEPATIC, BMP, LIPASE #### [address] Automated neutrophil %Ordere d By: PROVIDER TEMP on 06-17-2024 Neutrophils/100 WBC (Bld) 51.1 % Normal . [facility] Comment on above: Performed By: #### C BC, HEPATIC, BMP, LIPASE #### [address] Basic Metabolic Panelon 06-06 Creatinine Clr Calc Pharmacy 78.60 Normal [facility] Comment on above: Performed By: #### C BC, HEPATIC, BMP, LIPASE #### [address] GFR/1.73 sq M.predicted MDRD (S/P/Bld) [Vol rate/Area] mL/min/{1.73_m2} Normal [facility] Comment on above: Performed By: #### C BC, HEPATIC, BMP, LIPASE #### [place] [address] [place] Bilirubin Test strip Ql (U)O rdered By: PROVIDER TEMP on 06-17-2024 Bilirubin Ql (U) Negative Negative [facility] Bilirubin.direct [Mass/volum e] in Serum or PlasmaOrdered By: PROVIDER TEMP on 06-17-2024 Bilirubin.direct [Mass/Vol] 0.20 mg/dL High 0.03-0.18 [facility] Bilirubin.total [Mass/volume ] in Serum or PlasmaOrdered By: PROVIDER TEMP on 06-17-2024 Bilirubin [Mass/Vol] 0.8 mg/dL Normal 0.3-1.0 [facility] Comment on above: Performed By: #### C BC, HEPATIC, BMP, LIPASE #### [facility] [address] [place] [address] [place] Calcium [Mass/volume] in Ser um or PlasmaOrdered By: PROVIDER TEMP on 06-17-2024 Calcium [Mass/Vol] 9.2 mg/dL Normal 8.6-10.3 [facility] Comment on above: Performed By: #### C BC, HEPATIC, BMP, LIPASE #### [facility] [address] [place] [address] [place] Carbon dioxide, total [Moles /volume] in Serum or PlasmaOrdered By: PROVIDER TEMP on 06-17-2024 CO2 [Moles/Vol] 27.0 mmol/L Normal 21.0-31.0 [facility] Comment on above: Performed By: #### C BC, HEPATIC, BMP, LIPASE #### [facility] [address] [place] [address] [place] Chloride [Moles/volume] in S mehdi or PlasmaOrdered By: PROVIDER TEMP on 06-17-2024 Chloride [Moles/Vol] 106 mmol/L Normal 98-107 [facility] Comment on above: Performed By: #### C BC, HEPATIC, BMP, LIPASE #### [facility] [address] [place] [address] [place] Color of Urine by AutoOrdere d By: PROVIDER TEMP on 06-17-2024 Color (U) Light-yellow Normal Yellow [facility] Comment on above: Order Comment: Name Collection Type:: Clean-Voided Midstream Performed By: #### C BC, HEPATIC, BMP, LIPASE #### [address] Complete Blood Count Auto Di ffon 06-17-2024 Mean Corpuscular HGB Conc 34.6 g/dL Normal 32.0-35.0 [facility] Comment on above: Performed By: #### C BC, HEPATIC, BMP, LIPASE #### [address] Monocytes/100 WBC (Bld) 16.54 % Normal 0.00-20.00 [facility] Comment on above: Performed By: #### C BC, HEPATIC, BMP, LIPASE #### [address] NRBC% 0.1 /100{WBC} Normal 0-0.5 [facility] Comment on above: Performed By: #### C BC, HEPATIC, BMP, LIPASE #### [address] Creatinine [Mass/volume] in Serum or PlasmaOrdered By: PROVIDER TEMP on 06-17-2024 Creatinine [Mass/Vol] 0.85 mg/dL Normal 0.60-1.20 [facility] Comment on above: Performed By: #### C BC, HEPATIC, BMP, LIPASE #### [address] Erythrocyte distribution wid th [Ratio] by Automated countOrdered By: PROVIDER TEMP on 06-17-2024 Erythrocyte distribution width (RBC) [Ratio] 12.7 % Normal 11.9-15.3 [facility] Comment on above: Performed By: #### C BC, HEPATIC, BMP, LIPASE #### [address] Erythrocytes [#/volume] in B lood by Automated countOrdered By: PROVIDER TEMP on 06-17-2024 RBC (Bld) [#/Vol] 4.50 10*6/uL Normal 3.60-5.00 [facility] Comment on above: Performed By: #### C BC, HEPATIC, BMP, LIPASE #### [facility] [address] Glucose [Mass/volume] in Ser um or PlasmaOrdered By: PROVIDER TEMP on 06-17-2024 Glucose [Mass/Vol] 86 mg/dL Normal 70-100 [facility] Comment on above: ADA recommended refe rence rangeRandom Glucose Reference Range is dependent on time and content of last meal. Glucose of more than 200 mg/dL in a nonstressed, ambulatory subject supports the diagnosis of Diabetes Mellitus. Result Comment: [place] om Glucose Reference Range is dependent on time and content of last meal. Glucose of more than 200 mg/dL in a nonstressed, ambulatory subject supports the diagnosis of Diabetes Mellitus. ADA recommended reference range Performed By: #### C BC, HEPATIC, BMP, LIPASE #### [address] Glucose [Mass/volume] in Uri ne by Test stripOrdered By: PROVIDER TEMP on 06-17-2024 Glucose Test strip (U) [Mass/Vol] Normal mg/dL Normal [facility] HCG ( test) IA.rapi d Ql (U)Ordered By: PROVIDER TEMP on 06-17-2024 HCG ( test) Ql (U) Negative [facility] HCG,Urineon 06-17-2024 Beta HCG ( test) Ql (U) Negative Normal [facility] Comment on above: Order Comment: Name Collection Type:: Clean-Voided Midstream Result Comment: PERF ORMED BY: [place] [address] PATHOLOGIST HVAC SERVICE TECH KHANG WEEKS M.D. Performed By: #### C BC, HEPATIC, BMP, LIPASE #### [address] Hematocrit [Volume Fraction] of Blood by Automated countOrdered By: PROVIDER TEMP on 06-17-2024 Hematocrit (Bld) [Volume fraction] 41.7 % Normal 34.0-46.4 [facility] Comment on above: Performed By: #### C BC, HEPATIC, BMP, LIPASE #### [address] Hemoglobin Test strip Ql (U) Ordered By: PROVIDER TEMP on 06-17-2024 Hemoglobin Ql (U) Negative Negative [facility] Hemoglobin [Mass/volume] in BloodOrdered By: PROVIDER TEMP on 06-17-2024 Hemoglobin (Bld) [Mass/Vol] 14.4 g/dL Normal 11.8-15.4 [facility] Comment on above: Performed By: #### C BC, HEPATIC, BMP, LIPASE #### [address] Hepatic Panelon 06-17-2024 Albumin [Mass/Vol] 4.5 g/dL Normal 3.5-5.7 [facility] Comment on above: Performed By: #### C BC, HEPATIC, BMP, LIPASE #### [address] Bilirubin,Indirect 0.6 mg/dL Normal [facility] Comment on above: Performed By: #### C BC, HEPATIC, BMP, LIPASE #### [address] Bilirubin.indirect [Mass/Vol] 0.20 mg/dL High 0.03-0.18 [facility] Comment on above: Performed By: #### C BC, HEPATIC, BMP, LIPASE #### [address] Ketones [Presence] in Urine by Test stripOrdered By: PROVIDER TEMP on 06-17-2024 Ketones Ql (U) 1+ High Negative [facility] Comment on above: Order Comment: Name Collection Type:: Clean-Voided Midstream Performed By: #### C BC, HEPATIC, BMP, LIPASE #### [address] Leukocyte esterase [Presence ] in Urine by Test stripOrdered By: PROVIDER TEMP on 06-17-2024 Leukocyte esterase Test strip Ql (U) Negative Normal Negative [facility] Comment on above: Order Comment: Name Collection Type:: Clean-Voided Midstream Performed By: #### C BC, HEPATIC, BMP, LIPASE #### [facility] [address] Leukocytes [#/volume] correc ira for nucleated erythrocytes in Blood by Automated counOrdered By: PROVIDER TEMP on 06-17-2024 WBC corrected for nucl RBC Auto (Bld) [#/Vol] 4.4 10*3/uL 3.8-11.6 [facility] Leukocytes [#/volume] in Blo od by Automated countOrdered By: PROVIDER TEMP on 06-17-2024 WBC (Bld) [#/Vol] 4.4 10*3/uL Normal 3.8-11.6 [facility] Comment on above: Performed By: #### C BC, HEPATIC, BMP, LIPASE #### [address] Lipase [Enzymatic activity/v olume] in Serum or PlasmaOrdered By: PROVIDER TEMP on 06-17-2024 Lipase [Catalytic activity/Vol] 16.0 U/L Normal 11.0-82.0 [facility] Comment on above: Result Comment: PERF ORMED BY: [place] [address] PATHOLOGIST HVAC SERVICE TECH KHANG WEEKS M.D. Performed By: #### C BC, HEPATIC, BMP, LIPASE #### [place] [address] [place] Lymphocytes [#/volume] in Bl ood by Automated countOrdered By: PROVIDER TEMP on 06-17-2024 Lymphocytes (Bld) [#/Vol] 1.4 10*3/uL Normal 1.00-4.8 [facility] Comment on above: Performed By: #### C BC, HEPATIC, BMP, LIPASE #### [place] [address] [place] Lymphocytes/100 leukocytes i n Blood by Automated countOrdered By: PROVIDER TEMP on 06-17-2024 Lymphocytes/100 WBC (Bld) 31.2 % Normal . [facility] Comment on above: Performed By: #### C BC, HEPATIC, BMP, LIPASE #### [address] [place] [address] [place] MCH [Entitic mass] by Automa ira countOrdered By: PROVIDER TEMP on 06-17-2024 MCH (RBC) [Entitic mass] 32.1 pg Normal 24.7-34.3 [facility] Comment on above: Performed By: #### C BC, HEPATIC, BMP, LIPASE #### [facility] [address] MCHC Auto (RBC) [Mass/Vol]Or dered By: PROVIDER TEMP on 06-17-2024 MCHC (RBC) [Mass/Vol] 34.6 g/dL 32.0-35.0 [facility] MCV [Entitic volume] by Auto mated countOrdered By: PROVIDER TEMP on 06-17-2024 MCV (RBC) [Entitic vol] 92.6 fL Normal 80-[address] [facility] Comment on above: Performed By: #### C BC, HEPATIC, BMP, LIPASE #### [facility] [address] Monocyte distribution width [Entitic volume] in Blood by AutomatedOrdered By: PROVIDER TEMP on 06-17-2024 Monocyte distribution width Auto (Bld) [Entitic vol] 16.54 % 0.00-20.00 [facility] Neutrophils [#/volume] in Bl ood by Automated countOrdered By: PROVIDER TEMP on 06-17-2024 Neutrophils (Bld) [#/Vol] 2.2 10*3/uL Normal 1.8-7.7 [facility] Comment on above: Performed By: #### C BC, HEPATIC, BMP, LIPASE #### [facility] [address] Nitrite Test strip Ql (U)Ord ered By: PROVIDER TEMP on 06-17-2024 Nitrite Ql (U) Negative Negative [facility] No Panel InformationOrdered By: PROVIDER TEMP on 06-17-2024 Estimated GFR (CKD-EPI) > 60.0 mL/Min [facility] Creatinine Clearance (Chem 78.60 [facility] Nucleated erythrocytes [Pres ence] in Blood by Automated countOrdered By: PROVIDER TEMP on 06-17-2024 Nucleated RBC Auto Ql (Bld) 0.1 /100{WBC} 0-0.5 [facility] Platelet mean volume [Entiti c volume] in Blood by Automated countOrdered By: PROVIDER TEMP on 06-17-2024 Platelet mean volume (Bld) [Entitic vol] 7.5 fL Normal 6.3-10.7 [facility] Comment on above: Performed By: #### C BC, HEPATIC, BMP, LIPASE #### [facility] [address] Platelets [#/volume] in Bloo d by Automated countOrdered By: PROVIDER TEMP on 06-17-2024 Platelets (Bld) [#/Vol] 210 10*3/uL Normal 150-450 [facility] Comment on above: Performed By: #### C BC, HEPATIC, BMP, LIPASE #### [facility] [address] Potassium [Moles/volume] in Serum or PlasmaOrdered By: PROVIDER TEMP on 06-17-2024 Potassium [Moles/Vol] 3.6 mmol/L Normal 3.5-5.1 [facility] Comment on above: Performed By: #### C BC, HEPATIC, BMP, LIPASE #### [address] Protein Test strip (U) [Mass /Vol]Ordered By: PROVIDER TEMP on 06-17-2024 Protein (U) [Mass/Vol] Negative Negative [facility] Protein [Mass/volume] in Ser um or PlasmaOrdered By: PROVIDER TEMP on 06-17-2024 Protein [Mass/Vol] 7.0 g/dL Normal 6.4-8.9 [facility] Comment on above: Performed By: #### C BC, HEPATIC, BMP, LIPASE #### [address] Serum globulin measurement b y calculation (mass/volume)Ordered By: PROVIDER TEMP on 06-17-2024 Globulin (S) [Mass/Vol] 2.5 g/dL Normal [facility] Comment on above: Performed By: #### C BC, HEPATIC, BMP, LIPASE #### [facility] [address] Serum or plasma albumin/glob ulin mass ratioOrdered By: PROVIDER TEMP on 06-17-2024 Albumin/Globulin [Mass ratio] 1.8 {ratio} Normal [facility] Comment on above: Performed By: #### C BC, HEPATIC, BMP, LIPASE #### [facility] [address] [place] [address] Serum or plasma anion gap de terminationOrdered By: PROVIDER TEMP on 06-17-2024 Anion gap [Moles/Vol] 6.6 mmol/L Normal 6.0-15.0 [facility] Comment on above: Performed By: #### C BC, HEPATIC, BMP, LIPASE #### [address] Serum or plasma non-glucuron idated bilirubin measurement (mass/volume)Ordered By: PROVIDER TEMP on 06-17-2024 Bilirubin.indirect [Mass/Vol] 0.6 mg/dL [facility] Sodium [Moles/volume] in Ser um or PlasmaOrdered By: PROVIDER TEMP on 06-17-2024 Sodium [Moles/Vol] 136 mmol/L Normal 136-145 [facility] Comment on above: Performed By: #### C BC, HEPATIC, BMP, LIPASE #### [address] Specific gravity Test strip (U) [Rel density]Ordered By: PROVIDER TEMP on 06-17-2024 Specific gravity (U) [Rel density] 1.018 1.001-1.030 [facility] Urea nitrogen [Mass/volume] in Serum or PlasmaOrdered By: PROVIDER TEMP on 06-17-2024 Urea nitrogen [Mass/Vol] 9 mg/dL Normal 7-25 [facility] Comment on above: Performed By: #### C BC, HEPATIC, BMP, LIPASE #### [facility] [address] [place] [address] Urinalysison 06-17-2024 Bilirubin,Urine Negative Normal Negative [facility] Comment on above: Order Comment: Name Collection Type:: Clean-Voided Midstream Performed By: #### C BC, HEPATIC, BMP, LIPASE #### [facility] [address] Glucose Ql (U) Normal Normal Normal [facility] Comment on above: Order Comment: Name Collection Type:: Clean-Voided Midstream Performed By: #### C BC, HEPATIC, BMP, LIPASE #### [facility] [address] Nitrite,Urine Negative Normal Negative [facility] Comment on above: Order Comment: Name Collection Type:: Clean-Voided Midstream Performed By: #### C BC, HEPATIC, BMP, LIPASE #### [facility] [address] Occult Blood,Urine Negative Normal Negative [facility] Comment on above: Order Comment: Name Collection Type:: Clean-Voided Midstream Performed By: #### C BC, HEPATIC, BMP, LIPASE #### [address] Protein,Urine Negative Normal Negative [facility] Comment on above: Order Comment: Name Collection Type:: Clean-Voided Midstream Performed By: #### C BC, HEPATIC, BMP, LIPASE #### [address] Specificy [place],Urine 1.018 Normal 1.001-1.030 [facility] Comment on above: Order Comment: Name Collection Type:: Clean-Voided Midstream Performed By: #### C BC, HEPATIC, BMP, LIPASE #### [facility] [address] [place] [address] [place] Urobilinogen,Urine Normal Normal Normal [facility] Comment on above: Order Comment: Name Collection Type:: Clean-Voided Midstream Performed By: #### C BC, HEPATIC, BMP, LIPASE #### [facility] [address] Urine appearanceOrdered By: PROVIDER TEMP on 06-17-2024 Appearance (U) Clear Normal Clear [facility] Comment on above: Order Comment: Name Collection Type:: Clean-Voided Midstream Performed By: #### C BC, HEPATIC, BMP, LIPASE #### [facility] [address] Urobilinogen Test strip (U) [Mass/Vol]Ordered By: PROVIDER TEMP on 06-17-2024 Urobilinogen (U) [Mass/Vol] Normal mg/dL Normal [facility] pH of Urine by Test stripOrd ered By: PROVIDER TEMP on 06-17-2024 pH (U) 6.0 [pH] Normal 5.0-9.0 [facility] Comment on above: Order Comment: Name Collection Type:: Clean-Voided Midstream Performed By: #### C BC, HEPATIC, BMP, LIPASE #### [facility] [address] Choriogonadotropin.beta subu nit [Units/volume] in Serum or PlasmaOrdered By: Dominic Hester on 04-24-2024 HCG.beta subunit Qn m[IU]/mL [facility] Comment on above: Approximate Approxim ate hCG Gestational Age Range (mIU/ml) (weeks)0.2-1 5-50 1-2 50-500 2-3 100-5,000 3-4 500-10,000 4-5 1,000-50,000 5-6 10,000-100,000 6-8 15,000-200,000 8-12 10,000-100,000 HCG,Quantitativeon 4 HCG,Quantitative < 0.60 Normal [facility] Comment on above: Result Comment: Appr oximate Approximate hCG Gestational Age Range (mIU/ml) (weeks) 0.2-1 5-50 1-2 50-500 2-3 100-5,000 3-4 500-10,000 4-5 1,000-50,000 5-6 10,000-100,000 6-8 15,000-200,000 8-12 10,000-100,000 PERFORMED BY: [place] [address] PATHOLOGIST HVAC SERVICE TECH JIANLAN SUN M.D. Performed By: #### C BC, HEPATIC, BMP, LIPASE #### [facility] [address] Basophils Auto (Bld) [#/Vol] Ordered By: Sylvia Romero on 03-28-2023 Basophils (Bld) [#/Vol] 0.0 10*3/uL 0.0-0.2 [facility] Basophils/100 WBC Auto (Bld) Ordered By: Sylvia Romero on 03-28-2023 Basophils/100 WBC (Bld) 0.8 % . F [facility] Choriogonadotropin.beta subu nit [Units/volume] in Serum or PlasmaOrdered By: Sylvia Romero on 03-28-2023 HCG.beta subunit Qn m[IU]/mL [facility] Comment on above: Approximate Approxim ate hCG Gestational Age Range (mIU/ml) (weeks)0.2-1 5-50 1-2 50-500 2-3 100-5,000 3-4 500-10,000 4-5 1,000-50,000 5-6 10,000-100,000 6-8 15,000-200,000 8-12 10,000-100,000 Eosinophils Auto (Bld) [#/Vo l]Ordered By: Sylvia Romero on 03-28-2023 Eosinophils (Bld) [#/Vol] 0.2 10*3/uL 0.0-0.45 [facility] Eosinophils/100 WBC Auto (Bl d)Ordered By: Sylvia Romero on 03-28-2023 Eosinophils/100 WBC (Bld) 4.7 % . [facility] Erythrocyte distribution wid th Auto (RBC) [Ratio]Ordered By: Sylvia Romero on 03-28-2023 Erythrocyte distribution width (RBC) [Ratio] 13.0 % 11.9-15.3 [facility] Hematocrit Auto (Bld) [Volum e fraction]Ordered By: Sylvia Romero on 03-28-2023 Hematocrit (Bld) [Volume fraction] 38.0 % 34.0-46.4 [facility] Hemoglobin [Mass/volume] in BloodOrdered By: Sylvia Romero on 03-28-2023 Hemoglobin (Bld) [Mass/Vol] 12.9 g/dL 11.8-15.4 [facility] Leukocytes [#/volume] correc ira for nucleated erythrocytes in Blood by Automated counOrdered By: Sylvia Romero on 03-28-2023 WBC corrected for nucl RBC Auto (Bld) [#/Vol] 4.1 10*3/uL 3.8-11.6 [facility] Lymphocytes Auto (Bld) [#/Vo l]Ordered By: Sylvia Romero on 03-28-2023 Lymphocytes (Bld) [#/Vol] 1.0 10*3/uL 1.00-4.8 [facility] Lymphocytes/100 WBC Auto (Bl d)Ordered By: Sylvia Romero on 03-28-2023 Lymphocytes/100 WBC (Bld) 23.9 % . [facility] MCH Auto (RBC) [Entitic mass ]Ordered By: Sylvia Romero on 03-28-2023 MCH (RBC) [Entitic mass] 31.3 pg 24.7-34.3 [facility] MCHC Auto (RBC) [Mass/Vol]Or dered By: Sylvia Romero on 03-28-2023 MCHC (RBC) [Mass/Vol] 33.9 g/dL 32.0-35.0 [facility] MCV Auto (RBC) [Entitic vol] Ordered By: Sylvia Romero on 03-28-2023 MCV (RBC) [Entitic vol] 92.3 fL 80-[address] [facility] Monocytes Auto (Bld) [#/Vol] Ordered By: Sylvia Romero on 03-28-2023 Monocytes (Bld) [#/Vol] 0.3 10*3/uL 0.0-0.8 [facility] Monocytes/100 WBC Auto (Bld) Ordered By: Sylvia Romero on 03-28-2023 Monocytes/100 WBC (Bld) 7.5 % . [facility] Neutrophils Auto (Bld) [#/Vo l]Ordered By: Sylvia Romero on 03-28-2023 Neutrophils (Bld) [#/Vol] 2.6 10*3/uL 1.8-7.7 [facility] Neutrophils/100 WBC Auto (Bl d)Ordered By: Sylvia Romero on 03-28-2023 Neutrophils/100 WBC (Bld) 63.1 % . [facility] Nucleated erythrocytes [Pres ence] in Blood by Automated countOrdered By: Sylvia Romero on 03-28-2023 Nucleated RBC Auto Ql (Bld) 0.1 /100{WBC} 0-0.5 [facility] Platelet mean volume Auto (B ld) [Entitic vol]Ordered By: Sylvia Romero on 03-28-2023 Platelet mean volume (Bld) [Entitic vol] 8.8 fL 6.3-10.7 [facility] Platelets Auto (Bld) [#/Vol] Ordered By: Sylvia Romero on 03-28-2023 Platelets (Bld) [#/Vol] 196 10*3/uL 150-450 [facility] Prolactin [Mass/volume] in S mehdi or PlasmaOrdered By: Sylvia Romero on 03-28-2023 Prolactin [Mass/Vol] 3.20 ng/mL 3.34-26.72 [facility] RBC Auto (Bld) [#/Vol]Ordere d By: Sylvia Romero on 03-28-2023 RBC (Bld) [#/Vol] 4.12 10*6/uL 3.60-5.00 [facility] Thyrotropin [Units/volume] i n Serum or PlasmaOrdered By: Sylvia Romero on 03-28-2023 TSH Qn 1.31 m[IU]/L 0.45-5.33 [facility] WBC Auto (Bld) [#/Vol]Ordere d By: Sylvia Romero on 03-28-2023 WBC (Bld) [#/Vol] 4.1 10*3/uL 3.8-11.6 [facility] US PREG TVon 01-20-2023 US PREG [...] Date: 2023-01-19 23:22 Normal [facility] CBC AUTO DIFFon 01-17-2023 BASO # 0.0 103/ul Normal 0.0-0.[address] [facility] Comment on above: Performed By: #### C MP, LIPA, SYLVIA #### [facility] [address] [place] [address] Dr. Lester Yen Basophils/100 WBC (Bld) 1.1 % Normal 0.2-2.0 [facility] Comment on above: Performed By: #### C MP, LIPA, SYLVIA #### [facility] [address] [place] [address] Dr. Lester Yen EO # 0.2 103/ul Normal 0.0-0.[address] [facility] Comment on above: Performed By: #### C MP, LIPA, SYLVIA #### [facility] [address] [place] [address] Dr. Lester Yen Eosinophils/100 WBC (Bld) 5.4 % Normal 0.9-7.[address] [facility] Comment on above: Performed By: #### C MP, LIPA, SYLVIA #### [facility] [address] [place] [address] Dr. Lester Yen Erythrocyte distribution width (RBC) [Ratio] 12.4 % Normal 11.0-15.[address] [facility] Comment on above: Performed By: #### C MP, LIPA, SYLVIA #### [facility] [address] [place] [address] Dr. Lester Yen Hematocrit (Bld) [Volume fraction] 37.7 % Normal 36.0-48.[address] [facility] Comment on above: Performed By: #### C MP, LIPA, SYLVIA #### [facility] [address] [place] [address] Dr. Lester Yen Hemoglobin (Bld) [Mass/Vol] 13.2 g/dL Normal 12.0-16.0 [facility] Comment on above: Performed By: #### C ANJU PULIDO AMY #### [facility] [address] [place] [address] Dr. Lester Yen IG # 0.01 10e3/ul Normal 0.00-0.[address] [facility] Comment on above: Performed By: #### C ANJU PULIDO, SYLVIA #### [facility] [address] [place] [address] Dr. Lester Yen IG % 0.3 % Normal 0.0-0.5 [facility] Comment on above: Performed By: #### C ANJU PULIDO, SYLVIA #### [facility] [address] [place] [address] Dr. Lester Yen LYMPH # 1.1 103/ul Critically low 1.2-3.8 [facility] Comment on above: Performed By: #### C ANJU PULIDO, SYLVIA #### [facility] [address] [place] [address] Dr. Lester Yen Lymphocytes/100 WBC (Bld) 28.3 % Normal 20.5-60.0 [facility] Comment on above: Performed By: #### C ANJU PULIDO, SYLVIA #### [facility] [address] [place] [address] Dr. Lester Yen MANUAL DIFF REQ NO Normal [facility] Comment on above: Performed By: #### C ANJU PULIDO, SYLVIA #### [facility] [address] [place] [address] Dr. Lester Yen MCH (RBC) [Entitic mass] 31.5 pg Normal 26.7-34.0 [facility] Comment on above: Performed By: #### C ANJU PULIDO, SYLVIA #### [facility] [address] [place] [address] Dr. Lester Yen MCHC (RBC) [Mass/Vol] 35.0 g/dL Normal 29.9-35.2 [facility] Comment on above: Performed By: #### C MP, LIPA, SYLVIA #### [facility] [address] [place] [address] Dr. Lester Yen MCV (RBC) [Entitic vol] 90.0 fL Normal 81.0-99.0 [facility] Comment on above: Performed By: #### C MP, LIPA, SYLVIA #### [facility] [address] [place] [address] Dr. Lester Yen MONO # 0.3 103/ul Normal 0.3-0.[address] [facility] Comment on above: Performed By: #### C MP, LIPA, SYLVIA #### [facility] [address] [place] [address] Dr. Lester Yen Monocytes/100 WBC (Bld) 9.2 % Normal 1.7-12.0 [facility] Comment on above: Performed By: #### C MP, LIPA, SYLVIA #### [facility] [address] [place] [address] Dr. Lester Yen NEUT # 2.1 103/ul Normal 1.4-6.[address] [facility] Comment on above: Performed By: #### C MP, LIPA, SYLVIA #### [facility] [address] [place] [address] Dr. Lester Yen Neutrophils/100 WBC (Bld) 55.7 % Normal 43.0-75.[address] [facility] Comment on above: Performed By: #### C MP, LIPA, SYLVIA #### [facility] [address] [place] [address] Dr. Lester Yen Platelet mean volume (Bld) [Entitic vol] 9.2 fL Critically low 9.5-13.[address] [facility] Comment on above: Performed By: #### C MP, LIPA, SYLVIA #### [facility] [address] [place] [address] Dr. Lester Yen PLT 209 103/ul Normal 150-[address] [facility] Comment on above: Performed By: #### C MP, LIPA, SYLVIA #### [facility] [address] [place] [address] Dr. Lester Yen RBC 4.19 106/ul Critically low 4.20-5.40 [facility] Comment on above: Performed By: #### C MP, LIPA, SYLVIA #### [facility] [address] [address] [address] Lester Yen WBC 3.7 103/ul Critically low 4.0-11.0 [facility] Comment on above: Performed By: #### C MP LIPA, SYLVIA #### [facility] [address] [address] [address] Lester Yen TYPE AND SCREENon 01-17-2023 TYPE AND SCREEN Negative Normal [facility] Comment on above: Performed By: #### C ASHOK LIPA, SYLVIA #### [facility] [address] [address] [address] Lester Yen Alanine aminotransferase [En zymatic activity/volume] in Serum or PlasmaOrdered By: Monika Camarillo on 01-03-2023 ALT [Catalytic activity/Vol] 13 U/L 7-52 [facility] Albumin [Mass/volume] in Ser um or Plasma by Bromocresol green (BCG) dye binding methoOrdered By: Monika Camarillo on 01-03-2023 Albumin BCG dye [Mass/Vol] 4.7 g/dL 3.5-5.7 [facility] Alkaline phosphatase [Enzyma tic activity/volume] in Serum or PlasmaOrdered By: Monika Camarillo on 01-03-2023 ALP [Catalytic activity/Vol] 47 U/L 34-104 [facility] Aspartate aminotransferase [ Enzymatic activity/volume] in Serum or PlasmaOrdered By: Monika Camarillo on 01-03-2023 AST [Catalytic activity/Vol] 15 U/L 13-39 [facility] Basophils Auto (Bld) [#/Vol] Ordered By: Monika Camarillo on 01-03-2023 Basophils (Bld) [#/Vol] 0.0 10*3/uL 0.0-0.2 [facility] Basophils/100 WBC Auto (Bld) Ordered By: Monika Camarillo on 01-03-2023 Basophils/100 WBC (Bld) 0.3 % . [facility] Bilirubin Test strip Ql (U)O rdered By: Monika Camarillo on 01-03-2023 Bilirubin Ql (U) Negative Negative [facility] Bilirubin.total [Mass/volume ] in Serum or PlasmaOrdered By: Monika Camarillo on 01-03-2023 Bilirubin [Mass/Vol] 0.8 mg/dL 0.3-1.0 [facility] Calcium [Mass/volume] in Ser um or PlasmaOrdered By: Monika Camarillo on 01-03-2023 Calcium [Mass/Vol] 9.2 mg/dL 8.6-10.3 [facility] Carbon dioxide, total [Moles /volume] in Serum or PlasmaOrdered By: Monika Camarillo on 01-03-2023 CO2 [Moles/Vol] 23.8 mmol/L 21.0-31.0 [facility] Chloride [Moles/volume] in S mehdi or PlasmaOrdered By: Monika Camarillo on 01-03-2023 Chloride [Moles/Vol] 105 mmol/L 98-107 [facility] Choriogonadotropin.beta subu nit [Units/volume] in Serum or PlasmaOrdered By: Monika Camarillo on 01-03-2023 [place] [address].00 m[IU]/mL [facility] Comment on above: Approximate Approxim ate hCG Gestational Age Range (mIU/ml) (weeks)0.2-1 5-50 1-2 50-500 2-3 100-5,000 3-4 500-10,000 4-5 1,000-50,000 5-6 10,000-100,000 6-8 15,000-200,000 8-12 10,000-100,000 Color Auto (U)Ordered By: Co urtchun Camarillo on 01-03-2023 Color (U) Yellow Yellow [facility] Creatinine [Mass/volume] in Serum or PlasmaOrdered By: Monika Camarillo on 01-03-2023 Creatinine [Mass/Vol] 0.71 mg/dL 0.60-1.20 [facility] ER URINE PROFILEon Bilirubin Ql (U) Negative Normal NEGATIVE [facility] Comment on above: Performed By: #### E RUR #### [facility] [address] [place] [address] Dr. Lester Yen Clarity (U) CLEAR Normal CLEAR [facility] Comment on above: Performed By: #### E RUR #### [facility] [address] [place] [address] Dr. Lester Yen Color (U) LT. YELLOW Normal YELLOW [facility] Comment on above: Performed By: #### E RUR #### [facility] [address] [place] [address] Dr. Lester LEA A micrscopic examination will be performed if indicated. Normal [facility] Comment on above: Performed By: #### E RUR #### [facility] [address] [place] [address] Dr. Lester Yen Glucose Ql (U) Negative Normal NEGATIVE [facility] Comment on above: Performed By: #### E RUR #### [facility] [address] [place] [address] Dr. Lester Yen Hemoglobin Ql (U) Negative Normal NEGATIVE [facility] Comment on above: Performed By: #### E RUR #### [facility] [address] [place] [address] Dr. Lester Yen Ketones Ql (U) 15 mg/dl Abnormal NEGATIVE [facility] Comment on above: Performed By: #### E RUR #### [facility] [address] [place] [address] Dr. Lester Yen LEUKOCYTES Negative Normal NEGATIVE [facility] Comment on above: Performed By: #### E RUR #### [facility] [address] [place] [address] Dr. Lester Yen Nitrite Ql (U) Negative Normal NEGATIVE [facility] Comment on above: Performed By: #### E RUR #### [facility] [address] [place] [address] Dr. Lester Yen pH (U) 6.0 [pH] Normal 5-9 [facility] Comment on above: Performed By: #### E RUR #### [facility] [address] [place] [address] Dr. Lester Yen SPEC GRAVITY <=1.005 Abnormal 1.005-<=1.[address] [facility] Comment on above: Performed By: #### E RUR #### [facility] [address] [place] [address] Dr. Lester Yen UA PROTEIN Negative Normal NEGATIVE/ TRACE [facility] Comment on above: Performed By: #### E RUR #### [facility] [address] [address] [address] Lester Yen UR MICRO IND NOT INDICATED Normal [facility] Comment on above: Performed By: #### E RUR #### [facility] [address] [place] [address] Dr. Lester Yen Urobilinogen Qn (U) 0.2 {Olivier'U}/dL Normal 0.2 - 1. [address] [facility] Comment on above: Performed By: #### E RUR #### [facility] [address] [place] [address] Dr. Lester Yen Eosinophils Auto (Bld) [#/Vo l]Ordered By: Monika Camarillo on 01-03-2023 Eosinophils (Bld) [#/Vol] 0.3 10*3/uL 0.0-0.45 [facility] Eosinophils/100 WBC Auto (Bl d)Ordered By: Monika Camarillo on 01-03-2023 Eosinophils/100 WBC (Bld) 5.4 % . [facility] Erythrocyte distribution wid th Auto (RBC) [Ratio]Ordered By: Monika Camarillo on 01-03-2023 Erythrocyte distribution width (RBC) [Ratio] 12.7 % 11.9-15.3 [facility] Globulin Calc (S) [Mass/Vol] Ordered By: Monika Camarillo on 01-03-2023 Globulin (S) [Mass/Vol] 2.1 g/dL [facility] Glucose [Mass/volume] in Ser um or PlasmaOrdered By: Monika Camarillo on 01-03-2023 Glucose [Mass/Vol] 85 mg/dL 70-100 [facility] Comment on above: ADA recommended refe rence rangeRandom Glucose Reference Range is dependent on time and content of last meal. Glucose of more than 200 mg/dL in a nonstressed, ambulatory subject supports the diagnosis of Diabetes Mellitus. Hematocrit Auto (Bld) [Volum e fraction]Ordered By: Monika Camarillo on 01-03-2023 Hematocrit (Bld) [Volume fraction] 39.8 % 34.0-46.4 [facility] Hemoglobin [Mass/volume] in BloodOrdered By: Monika Camarillo on 01-03-2023 Hemoglobin (Bld) [Mass/Vol] 13.4 g/dL 11.8-15.4 [facility] Ketones Auto test strip (U) [Mass/Vol]Ordered By: Monika Camarillo on 01-03-2023 Ketones (U) [Mass/Vol] Negative Negative [facility] Leukocytes [#/volume] correc ira for nucleated erythrocytes in Blood by Automated counOrdered By: Monika Camarillo on 01-03-2023 WBC corrected for nucl RBC Auto (Bld) [#/Vol] 5.7 10*3/uL 3.8-11.6 [facility] Lipase [Enzymatic activity/v olume] in Serum or PlasmaOrdered By: Monika Camarillo on 01-03-2023 Lipase [Catalytic activity/Vol] 17.0 U/L 11.0-82.0 [facility] Lymphocytes Auto (Bld) [#/Vo l]Ordered By: Monika Camarillo on 01-03-2023 Lymphocytes (Bld) [#/Vol] 0.9 10*3/uL 1.00-4.8 [facility] Lymphocytes/100 WBC Auto (Bl d)Ordered By: Monika Camarillo on 01-03-2023 Lymphocytes/100 WBC (Bld) 15.2 % . [facility] MCH Auto (RBC) [Entitic mass ]Ordered By: Monika Camarillo on 01-03-2023 MCH (RBC) [Entitic mass] 31.0 pg 24.7-34.3 [facility] MCHC Auto (RBC) [Mass/Vol]Or dered By: Monika Camarillo on 01-03-2023 MCHC (RBC) [Mass/Vol] 33.6 g/dL 32.0-35.0 [facility] MCV Auto (RBC) [Entitic vol] Ordered By: Monika Camarillo on 01-03-2023 MCV (RBC) [Entitic vol] 92.2 fL 80-[address] [facility] Monocyte distribution width [Entitic volume] in Blood by AutomatedOrdered By: Monika Camarillo on 01-03-2023 Monocyte distribution width Auto (Bld) [Entitic vol] 17.53 % 0.00-20.00 [facility] Monocytes Auto (Bld) [#/Vol] Ordered By: Monika Camarillo on 01-03-2023 Monocytes (Bld) [#/Vol] 0.4 10*3/uL 0.0-0.8 [facility] Monocytes/100 WBC Auto (Bld) Ordered By: Monika Camarillo on 01-03-2023 Monocytes/100 WBC (Bld) 6.5 % . [facility] Neutrophils Auto (Bld) [#/Vo l]Ordered By: Monika Camarillo on 01-03-2023 Neutrophils (Bld) [#/Vol] 4.1 10*3/uL 1.8-7.7 [facility] Neutrophils/100 WBC Auto (Bl d)Ordered By: Monika Camarillo on 01-03-2023 Neutrophils/100 WBC (Bld) 72.6 % . [facility] Nitrite Test strip Ql (U)Ord ered By: Monika Camarillo on 01-03-2023 Nitrite Ql (U) Negative Negative [facility] No Panel InformationOrdered By: Monika Camarillo on 01-03-2023 Estimated GFR (CKD-EPI) > 60.0 mL/Min [facility] Creatinine Clearance (Chem 94.97 [facility] Nucleated erythrocytes [Pres ence] in Blood by Automated countOrdered By: Monika Camarillo on 01-03-2023 Nucleated RBC Auto Ql (Bld) 0.1 /100{WBC} 0-0.5 [facility] Platelet mean volume Auto (B ld) [Entitic vol]Ordered By: Monika Camarillo on 01-03-2023 Platelet mean volume (Bld) [Entitic vol] 7.5 fL 6.3-10.7 [facility] Platelets Auto (Bld) [#/Vol] Ordered By: Monika Camarillo on 01-03-2023 Platelets (Bld) [#/Vol] 187 10*3/uL 150-450 [facility] Potassium [Moles/volume] in Serum or PlasmaOrdered By: Monika Camarillo on 01-03-2023 Potassium [Moles/Vol] 3.7 mmol/L 3.5-5.1 [facility] Protein Auto test strip (U) [Mass/Vol]Ordered By: Monika Camarillo on 01-03-2023 Protein (U) [Mass/Vol] Negative Negative [facility] Protein [Mass/volume] in Ser um or PlasmaOrdered By: Monika Camarillo on 01-03-2023 Protein [Mass/Vol] 6.8 g/dL 6.4-8.9 [facility] RBC Auto (Bld) [#/Vol]Ordere d By: Monika Camarillo on 01-03-2023 RBC (Bld) [#/Vol] 4.32 10*6/uL 3.60-5.00 [facility] Serum or plasma albumin/glob ulin mass ratioOrdered By: Monika Camarillo on 01-03-2023 Albumin/Globulin [Mass ratio] 2.2 {ratio} [facility] Serum or plasma anion gap de terminationOrdered By: Monika Camarillo on 01-03-2023 Anion gap [Moles/Vol] 10.9 mmol/L 6.0-15.0 [facility] Sodium [Moles/volume] in Ser um or PlasmaOrdered By: Monika Camarillo on 01-03-2023 Sodium [Moles/Vol] 136 mmol/L 136-145 [facility] Specific gravity Auto test s trip (U) [Rel density]Ordered By: Monika Camarillo on 01-03-2023 Specific gravity (U) [Rel density] 1.005 1.001-1.030 [facility] US PREG TVon 01-03-2023 US [...] by: LOPEZ ZARAGOZA Date: 2023-01-03 21:[address] [facility] Urea nitrogen [Mass/volume] in Serum or PlasmaOrdered By: Monika Camarillo on 01-03-2023 Urea nitrogen [Mass/Vol] 9 mg/dL 7-25 [facility] Urine clarity by refractomet ry automatedOrdered By: Monika Camarillo on 01-03-2023 Clarity Refractometry automated (U) Clear Clear [facility] Urine glucose measurement by automated test strip (mass/volume)Ordered By: Monika Camarillo on 01-03-2023 Glucose Auto test strip (U) [Mass/Vol] Normal mg/dL Normal [facility] Urine hemoglobin detection b y automated test stripOrdered By: Monika Camarillo on 01-03-2023 Hemoglobin Auto test strip Ql (U) Negative Negative [facility] Urine leukocyte esterase det ection by automated test stripOrdered By: Monika Camarillo on 01-03-2023 Leukocyte esterase Auto test strip Ql (U) Negative Negative [facility] Urobilinogen Auto test strip (U) [Mass/Vol]Ordered By: Monika Camarillo on 01-03-2023 Urobilinogen (U) [Mass/Vol] Normal mg/dL Normal [facility] WBC Auto (Bld) [#/Vol]Ordere d By: Monika Camarillo on 01-03-2023 WBC (Bld) [#/Vol] 5.7 10*3/uL 3.8-11.6 [facility] pH Auto test strip (U)Ordere d By: Monika Camarillo on 01-03-2023 pH (U) 6.5 [pH] 5.0-9.0 [facility] US PREG TVon 12-26-2022 US [...] Date: 2022-12-26 15:07 Normal [facility] PREG QUANT HCGon 12-25-2022 HCG QUANT 98372 mIU/mL Normal [facility] Comment on above: Performed By: #### P REGQNT #### [facility] [address] [address] [address] Lester Yen HCG RANGE SEE BELOW Normal [facility] Comment on above: Result Comment: 5-50 0.2-1 WEEK 50-500 1-2 WEEKS 100-5,000 2-3 WEEKS 500-10,000 3-4 WEEKS 1,000-50,000 4-5 WEEKS 10,000-100,000 5-6 WEEKS 15,000-200,000 6-8 WEEKS 10,000-100,000 2-3 MONTHS Performed By: #### P REGQNT #### [facility] [address] [address] [address] Lester Yen Albumin [Mass/volume] in Ser um or PlasmaOrdered By: Monika Camarillo on 08-02-2022 Albumin [Mass/Vol] 3.7 g/dL 3.2-5.5 [facility] Basophils Auto (Bld) [#/Vol] Ordered By: Monika Camarillo on 08-02-2022 Basophils (Bld) [#/Vol] 0.0 10*3/uL 0.0-0.2 [facility] Basophils/100 WBC Auto (Bld) Ordered By: Monika Camarillo on 08-02-2022 Basophils/100 WBC (Bld) 0.8 % . [facility] Bilirubin Test strip Ql (U)O rdered By: Monika Camarillo on 08-02-2022 Bilirubin Ql (U) Negative Negative [facility] Color Auto (U)Ordered By: Po Camarillo on 08-02-2022 Color (U) Yellow Yellow [facility] Creatinine and Glomerular fi ltration rate.predicted panel (S/P/Bld)Ordered By: Monika Camarillo on 08-02-2022 Creatinine [Mass/Vol] 0.86 mg/dL 0.44-1.03 [facility] Eosinophils Auto (Bld) [#/Vo l]Ordered By: Monika Camarillo on 08-02-2022 Eosinophils (Bld) [#/Vol] 0.4 10*3/uL 0.0-0.45 [facility] Eosinophils/100 WBC Auto (Bl d)Ordered By: Monika Camarillo on 08-02-2022 Eosinophils/100 WBC (Bld) 12.8 % . [facility] Erythrocyte distribution wid th Auto (RBC) [Ratio]Ordered By: Monika Camarillo on 08-02-2022 Erythrocyte distribution width (RBC) [Ratio] 12.7 % 11.9-15.3 [facility] Estimated glomerular filtrat ion rate (GFR) non- AmericanOrdered By: Monika Camarillo on 08-02-2022 GFR/1.73 sq M.predicted among non-blacks MDRD (S/P/Bld) [Vol rate/Area] > 60 mL/Min [facility] Globulin Calc (S) [Mass/Vol] Ordered By: Monika Camarillo on 08-02-2022 Globulin (S) [Mass/Vol] 2.4 g/dL [facility] HCG ( test) IA.rapi d Ql (U)Ordered By: Monika Camarillo on 08-02-2022 HCG ( test) Ql (U) Negative [facility] Hematocrit Auto (Bld) [Volum e fraction]Ordered By: Monika Camarillo on 08-02-2022 Hematocrit (Bld) [Volume fraction] 38.4 % 34.0-46.4 [facility] Hemoglobin [Mass/volume] in BloodOrdered By: Monika Camarillo on 08-02-2022 Hemoglobin (Bld) [Mass/Vol] 13.1 g/dL 11.8-15.4 [facility] Ketones Auto test strip (U) [Mass/Vol]Ordered By: Monika Camarillo on 08-02-2022 Ketones (U) [Mass/Vol] Negative Negative [facility] Laboratory - Hematology and Cell countsOrdered By: Monika Camarillo on 08-02-2022 Nucleated RBC/100 WBC (Bld) [Ratio] 0.1 % 0-0.5 [facility] Leukocytes [#/volume] in Blo od by Automated countOrdered By: Monika Camarillo on 08-02-2022 WBC (Bld) [#/Vol] 3.4 10*3/uL 4.5-11.0 [facility] Lymphocytes Auto (Bld) [#/Vo l]Ordered By: Monika Camarillo on 08-02-2022 Lymphocytes (Bld) [#/Vol] 1.0 10*3/uL 1.00-4.8 [facility] Lymphocytes/100 WBC Auto (Bl d)Ordered By: Monika Camarillo on 08-02-2022 Lymphocytes/100 WBC (Bld) 28.2 % . [facility] MCH Auto (RBC) [Entitic mass ]Ordered By: Monika Camarillo on 08-02-2022 MCH (RBC) [Entitic mass] 31.1 pg 24.7-34.3 [facility] MCHC Auto (RBC) [Mass/Vol]Or dered By: Monika Camarillo on 08-02-2022 MCHC (RBC) [Mass/Vol] 34.1 g/dL 32.0-35.0 [facility] MCV Auto (RBC) [Entitic vol] Ordered By: Monika Camarillo on 08-02-2022 MCV (RBC) [Entitic vol] 91.4 fL 80-100 [facility] Monocytes Auto (Bld) [#/Vol] Ordered By: Monika Camarillo on 08-02-2022 Monocytes (Bld) [#/Vol] 0.3 10*3/uL 0.0-0.8 [facility] Monocytes/100 WBC Auto (Bld) Ordered By: Monika Camarillo on 08-02-2022 Monocytes/100 WBC (Bld) 7.7 % . [facility] Neutrophils Auto (Bld) [#/Vo l]Ordered By: Monika Camarillo on 08-02-2022 Neutrophils (Bld) [#/Vol] 1.7 10*3/uL 1.8-7.7 [facility] Neutrophils/100 WBC Auto (Bl d)Ordered By: Monika Camarillo on 08-02-2022 Neutrophils/100 WBC (Bld) 50.5 % . [facility] Nitrite Test strip Ql (U)Ord ered By: Monika Camarillo on 08-02-2022 Nitrite Ql (U) Negative Negative [facility] No Panel InformationOrdered By: Monika Camarillo on 08-02-2022 Estimated GFR () > 60 mL/Min [facility] Comment on above: GFR estimated refere nce range: According to KDOQI guidelines, <60 ml/min/1.73m2 is sufficient to diagnose a patient with chronic kidney disease. Pharmacy Creatinine Clearance (Chem 79.12 [facility] Platelet mean volume Auto (B ld) [Entitic vol]Ordered By: Monika Camarillo on 08-02-2022 Platelet mean volume (Bld) [Entitic vol] 7.8 fL 6.3-10.7 [facility] Platelets Auto (Bld) [#/Vol] Ordered By: Monika Camarillo on 08-02-2022 Platelets (Bld) [#/Vol] 203 10*3/uL 150-450 [facility] Protein Auto test strip (U) [Mass/Vol]Ordered By: Monika Camarillo on 08-02-2022 Protein (U) [Mass/Vol] Negative Negative [facility] Protein [Mass/volume] in Ser um or PlasmaOrdered By: Monika Camarillo on 08-02-2022 Protein [Mass/Vol] 6.1 g/dL 6.1-7.9 [facility] RBC Auto (Bld) [#/Vol]Ordere d By: Monika Camarillo on 08-02-2022 RBC (Bld) [#/Vol] 4.20 10*6/uL 3.60-5.00 [facility] Serum or plasma alanine gaspar otransferase measurement without P-5'-P (enzymatic activiOrdered By: Monika Camarillo on 08-02-2022 ALT No additional P-5'-P [Catalytic activity/Vol] 13 U/L 10-60 [facility] Serum or plasma albumin/glob ulin mass ratioOrdered By: Monika Camarillo on 08-02-2022 Albumin/Globulin [Mass ratio] 1.5 {ratio} [facility] Serum or plasma alkaline radames sphatase measurement (enzymatic activity/volume)Ordered By: Monika Camarillo on 08-02-2022 ALP [Catalytic activity/Vol] 46 U/L 32-92 [facility] Serum or plasma anion gap de terminationOrdered By: Monika Camarillo on 08-02-2022 Anion gap [Moles/Vol] 11.0 mmol/L 6.0-15.0 [facility] Serum or plasma aspartate am inotransferase measurement (enzymatic activity/volume)Ordered By: Monika Camarillo on 08-02-2022 AST [Catalytic activity/Vol] 16 U/L 10-42 [facility] Serum or plasma calcium unique urement (mass/volume)Ordered By: Monika Camarillo on 08-02-2022 Calcium [Mass/Vol] 9.2 mg/dL 8.2-10.2 [facility] Serum or plasma chloride debbie surement (moles/volume)Ordered By: Monika Camarillo on 08-02-2022 Chloride [Moles/Vol] 104 mmol/L 95-114 [facility] Serum or plasma glucose unique urement (mass/volume)Ordered By: Monika Camarillo on 08-02-2022 Glucose [Mass/Vol] 82 mg/dL 70-100 [facility] Comment on above: ADA recommended refe rence rangeRandom Glucose Reference Range is dependent on time and content of last meal. Glucose of more than 200 mg/dL in a nonstressed, ambulatory subject supports the diagnosis of Diabetes Mellitus. Serum or plasma potassium me asurement (moles/volume)Ordered By: Monika Camarillo on 08-02-2022 Potassium [Moles/Vol] 3.4 mmol/L 3.5-5.1 [facility] Serum or plasma sodium measu rement (moles/volume)Ordered By: Monika Camarillo on 08-02-2022 Sodium [Moles/Vol] 137 mmol/L 136-146 [facility] Serum or plasma total biliru bin measurement (mass/volume)Ordered By: Monika Camarillo on 08-02-2022 Bilirubin [Mass/Vol] 0.6 mg/dL 0.3-1.2 [facility] Serum or plasma total carbon dioxide measurement (moles/volume)Ordered By: Monika Camarillo on 08-02-2022 CO2 [Moles/Vol] 25.4 mmol/L 22.0-30.0 [facility] Serum or plasma urea nitroge n measurement (mass/volume)Ordered By: Monika Camarillo on 08-02-2022 Urea nitrogen [Mass/Vol] 8 mg/dL 9-23 [facility] Specific gravity Auto test s trip (U) [Rel density]Ordered By: Monika Camarillo on 08-02-2022 Specific gravity (U) [Rel density] 1.009 1.001-1.030 [facility] Urine clarity by refractomet ry automatedOrdered By: Monika Camarillo on 08-02-2022 Clarity Refractometry automated (U) Clear Clear [facility] Urine glucose measurement by automated test strip (mass/volume)Ordered By: Monika Camarillo on 08-02-2022 Glucose Auto test strip (U) [Mass/Vol] Normal mg/dL Normal [facility] Urine hemoglobin detection b y automated test stripOrdered By: Monika Camarillo on 08-02-2022 Hemoglobin Auto test strip Ql (U) Negative Negative [facility] Urine lactic acid measuremen tOrdered By: Monika Camarillo on 08-02-2022 Lactate (U) [Moles/Vol] 1.4 mmol/L 0.5-2.[address] [facility] Urine leukocyte esterase det ection by automated test stripOrdered By: Monika Camarillo on 08-02-2022 Leukocyte esterase Auto test strip Ql (U) Negative Negative [facility] Urobilinogen Auto test strip (U) [Mass/Vol]Ordered By: Monika Camarillo on 08-02-2022 Urobilinogen (U) [Mass/Vol] Normal mg/dL Normal [facility] pH Auto test strip (U)Ordere d By: Monika Camarillo on 08-02-2022 pH (U) 8.0 [pH] 5.0-9.0 [facility] CBC AUTO DIFFon 07-29-2022 BASO # 0.0 103/ul Normal 0.0-0.[address] [facility] Comment on above: Performed By: #### C BC #### [facility] [address] [place] [address] Dr. Lester Yen Basophils/100 WBC (Bld) 1.1 % Normal 0.2-2.0 [facility] Comment on above: Performed By: #### C BC #### [facility] [address] [place] [address] Dr. Lester Yen EO # 0.4 103/ul Normal 0.0-0.[address] [facility] Comment on above: Performed By: #### C BC #### [facility] [address] [address] [address] Lester Yen Eosinophils/100 WBC (Bld) 10.8 % Critically high 0.9-7.[address] [facility] Comment on above: Performed By: #### C BC #### [facility] [address] [address] [address] Lester Yen Erythrocyte distribution width (RBC) [Ratio] 12.0 % Normal 11.0-15.[address] [facility] Comment on above: Performed By: #### C BC #### [facility] [address] [place] [address] Dr. Lester Yen Hematocrit (Bld) [Volume fraction] 36.3 % Normal 36.0-48.[address] [facility] Comment on above: Performed By: #### C BC #### [facility] [address] [place] [address] Dr. Lester Yen Hemoglobin (Bld) [Mass/Vol] 12.4 g/dL Normal 12.0-16.[address] [facility] Comment on above: Performed By: #### C BC #### [facility] [address] [place] [address] Dr. Lester Yen IG # 0.00 10e3/ul Normal 0.00-0.[address] [facility] Comment on above: Performed By: #### C BC #### [facility] [address] [place] [address] Dr. Lester Yen IG % 0.0 % Normal 0.0-0.[address] [facility] Comment on above: Performed By: #### C BC #### [facility] [address] [place] [address] Dr. Lester Yen LYMPH # 1.6 103/ul Normal 1.2-3.[address] [facility] Comment on above: Performed By: #### C BC #### [facility] [address] [place] [address] Dr. Lester Yen Lymphocytes/100 WBC (Bld) 41.6 % Normal 20.5-60.[address] [facility] Comment on above: Performed By: #### C BC #### [facility] [address] [place] [address] Dr. Lester Yen MANUAL DIFF REQ NO Normal [facility] Comment on above: Performed By: #### C BC #### [facility] [address] [place] [address] Dr. Lester Yen MCH (RBC) [Entitic mass] 31.9 pg Normal 26.7-34.[address] [facility] Comment on above: Performed By: #### C BC #### [facility] [address] [place] [address] Dr. Lester Yen MCHC (RBC) [Mass/Vol] 34.2 g/dL Normal 29.9-35.[address] [facility] Comment on above: Performed By: #### C BC #### [facility] [address] [address] [address] Lester Yen MCV (RBC) [Entitic vol] 93.3 fL Normal 81.0-99.0 [facility] Comment on above: Performed By: #### C BC #### [facility] [address] [address] [address] Lester Yen MONO # 0.3 103/ul Normal 0.3-0.[address] [facility] Comment on above: Performed By: #### C BC #### [facility] [address] [place] [address] Dr. Lester Yen Monocytes/100 WBC (Bld) 8.2 % Normal 1.7-12.0 [facility] Comment on above: Performed By: #### C BC #### [facility] [address] [place] [address] Dr. Lester Yen NEUT # 1.5 103/ul Normal 1.4-6.[address] [facility] Comment on above: Performed By: #### C BC #### [facility] [address] [place] [address] Dr. Lester Yen Neutrophils/100 WBC (Bld) 38.3 % Critically low 43.0-75.[address] [facility] Comment on above: Performed By: #### C BC #### [facility] [address] [place] [address] Dr. Lester Yen Platelet mean volume (Bld) [Entitic vol] 9.3 fL Critically low 9.5-13.[address] [facility] Comment on above: Performed By: #### C BC #### [facility] [address] [place] [address] Dr. Lester Yen PLT 184 103/ul Normal 150-[address] [facility] Comment on above: Performed By: #### C BC #### [facility] [address] [address] [address] Lester Yen RBC 3.89 106/ul Critically low 4.20-5.40 [facility] Comment on above: Performed By: #### C BC #### [facility] [address] [place] [address] Dr. Lester Yen WBC 3.8 103/ul Critically low 4.0-11.0 [facility] Comment on above: Performed By: #### C BC #### [facility] [address] [place] [address] Dr. Lester Yen Covid-19 PCR ([facility])on 07-07 SARS-CoV-2 (COVID-19) RNA JOSE+probe Ql (Unsp spec) Not detected Normal NOT DETECTED [facility] Comment on above: Result Comment: When diagnostic [...] for this test is supported by the [place] of Health and Human Service's declaration that [...] C ANJU PULIDO AMY #### [facility] [address] [place] [address] Dr. Lester Yen PREG QUANT HCGon 07-29-2022 HCG QUANT 1 mIU/mL Normal [facility] Comment on above: Performed By: #### C ANJU PULIDO AMY #### [facility] [address] [place] [address] Dr. Lester Yen HCG RANGE SEE BELOW Normal [facility] Comment on above: Result Comment: 5-50 0.2-1 WEEK 50-500 1-2 WEEKS 100-5,000 2-3 WEEKS 500-10,000 3-4 WEEKS 1,000-50,000 4-5 WEEKS 10,000-100,000 5-6 WEEKS 15,000-200,000 6-8 WEEKS 10,000-100,000 2-3 MONTHS Performed By: #### C ANJU PULIDO AMY #### [facility] [address] [address] [address] Lester Yen HIV 1 and HIV-2 antibody ass ay with HIV-1 p24 antigen detectionOrdered By: Dominic Hester on 06-18-2022 HIV 1+2 Ab+HIV1 p24 Ag IA Ql Non-Reactive Non Reactive [facility] Comment on above: HIV NegativeHIV-1/HI V-2 antibodies and HIV-1 p24 antigen were NOTdetected. There is no laboratory evidence of HIV infection.Performed at: [facility] [id number] Director: Lebron Manzo PhD, Phone: [phone] Hepatitis B virus surface Ag [Presence] in [...] 06-18-2022 HCV RNA JOSE+probe [Log units/Vol] N/A [facility] No Panel InformationOrdered By: Dominic Hester on 06-18-2022 Hepatitis A IgM Antibody Negative Negative [facility] Hepatitis B Core IgM Antibody Negative Negative [facility] Hepatitis C Interpretation See comment . [facility] Comment on above: NegativeNot infected with HCV, unless recent infection issuspected or other evidence exists to indicate HCVinfection.Performed at: [facility] [place], [place] [id number] Director: Lebrno Manzo PhD, Phone: [phone] Hepatitis C RNA Quantitative N/A [facility] Reagin Ab [Presence] in Seru m by RPROrdered By: Dominic Hester on 06-18-2022 Reagin Ab RPR Ql (S) Non-Reactive Non Reactive [facility] Comment on above: Performed at: [address] [id number] Director: Lebron Manzo PhD, Phone: [phone] Serum or plasma hepatitis C virus antibody signal/cutoff ratio by immunoassay (relatiOrdered By: Dominic Hester on 06-18-2022 HCV Ab Signal/Cutoff IA [Rel units/Vol] <0.1 s/co ratio 0.0-0.9 [facility] CHLAMYDIA/GONOCOCCUS JOSE (SW AB/URINE/PAPon 06-04-2022 Chlamydia trachomatis, JOSE Negative Normal Negative [facility] Comment on above: Performed By: #### C T/NGNA #### [facility] [address] [place] [address] Dr. Lester Yen Neisseria gonorrhoeae, JOSE Negative Normal Negative [facility] Comment on above: Performed By: #### C T/NGNA #### [facility] [address] [place] [address] Dr. Lester Yen VAGINITIS/VAGINOSIS DNA PROB Davide 06-02-2022 Tigist species Negative Normal Negative [facility] Comment on above: Performed By: #### C MP, LIPA, SYLVIA #### [facility] [address] [place] [address] Dr. Lester Yen Gardnerella vaginalis Negative Normal Negative [facility] Comment on above: Performed By: #### C MP, LIPA, SYLVIA #### [facility] [address] [place] [address] Dr. Lester Yen Trichomonas vaginalis Negative Normal Negative [facility] Comment on above: Performed By: #### C MP, LIPA, SYLVIA #### [facility] [address] [place] [address] Dr. Lester Yen AMYLASEon 05-28-2022 Amylase [Catalytic activity/Vol] 48 U/L Normal 25-115 [facility] Comment on above: Performed By: #### C MP, LIPA, SYLVIA #### [facility] [address] [place] [address] Dr. Lester Yen CBC AUTO DIFFon 05-28-2022 BASO # 0.0 103/ul Normal 0.0-0.[address] [facility] Comment on above: Performed By: #### C BC #### [facility] [address] [place] [address] Dr. Lester Yen Basophils/100 WBC (Bld) 0.5 % Normal 0.2-2.0 [facility] Comment on above: Performed By: #### C BC #### [facility] [address] [place] [address] Dr. Lester Yen EO # 0.3 103/ul Normal 0.0-0.[address] [facility] Comment on above: Performed By: #### C BC #### [facility] [address] [place] [address] Dr. Lester Yen Eosinophils/100 WBC (Bld) 5.7 % Normal 0.9-7.[address] [facility] Comment on above: Performed By: #### C BC #### [facility] [address] [place] [address] Dr. Lester Yen Erythrocyte distribution width (RBC) [Ratio] 12.6 % Normal 11.0-15.[address] [facility] Comment on above: Performed By: #### C BC #### [facility] [address] [place] [address] Dr. Lester Yen Hematocrit (Bld) [Volume fraction] 39.5 % Normal 36.0-48.[address] [facility] Comment on above: Performed By: #### C BC #### [facility] [address] [place] [address] Dr. Lester Yen Hemoglobin (Bld) [Mass/Vol] 13.2 g/dL Normal 12.0-16.[address] [facility] Comment on above: Performed By: #### C BC #### [facility] [address] [place] [address] Dr. Lseter Yen IG # 0.01 10e3/ul Normal 0.00-0.[address] [facility] Comment on above: Performed By: #### C BC #### [facility] [address] [place] [address] Dr. Lester Yen IG % 0.2 % Normal 0.0-0.[address] [facility] Comment on above: Performed By: #### C BC #### [facility] [address] [place] [address] Dr. Lester Yen LYMPH # 1.1 103/ul Critically low 1.2-3.8 [facility] Comment on above: Performed By: #### C BC #### [facility] [address] [place] [address] Dr. Lester Yen Lymphocytes/100 WBC (Bld) 18.9 % Critically low 20.5-60.[address] [facility] Comment on above: Performed By: #### C BC #### [facility] [address] [place] [address] Dr. Lester Yen MANUAL DIFF REQ NO Normal [facility] Comment on above: Performed By: #### C BC #### [facility] [address] [place] [address] Dr. Lester Yen MCH (RBC) [Entitic mass] 31.1 pg Normal 26.7-34.[address] [facility] Comment on above: Performed By: #### C BC #### [facility] [address] [place] [address] Dr. Lester Yen MCHC (RBC) [Mass/Vol] 33.4 g/dL Normal 29.9-35.[address] [facility] Comment on above: Performed By: #### C BC #### [facility] [address] [place] [address] Dr. Lester Yen MCV (RBC) [Entitic vol] 93.2 fL Normal 81.0-99.0 [facility] Comment on above: Performed By: #### C BC #### [facility] [address] [place] [address] Dr. Lester Yen MONO # 0.5 103/ul Normal 0.3-0.[address] [facility] Comment on above: Performed By: #### C BC #### [facility] [address] [place] [address] Dr. Lester Yen Monocytes/100 WBC (Bld) 8.4 % Normal 1.7-12.0 [facility] Comment on above: Performed By: #### C BC #### [facility] [address] [place] [address] Dr. Lester Yen NEUT # 3.9 103/ul Normal 1.4-6.[address] [facility] Comment on above: Performed By: #### C BC #### [facility] [address] [place] [address] Dr. Lester Yen Neutrophils/100 WBC (Bld) 66.3 % Normal 43.0-75.[address] [facility] Comment on above: Performed By: #### C BC #### [facility] [address] [place] [address] Dr. Lester Yen Platelet mean volume (Bld) [Entitic vol] 9.8 fL Normal 9.5-13.[address] [facility] Comment on above: Performed By: #### C BC #### [facility] [address] [place] [address] Dr. Lester Yen PLT 186 103/ul Normal 150-[address] [facility] Comment on above: Performed By: #### C BC #### [facility] [address] [place] [address] Dr. Lester Yen RBC 4.24 106/ul Normal 4.20-5.[address] [facility] Comment on above: Performed By: #### C BC #### [facility] [address] [place] [address] Dr. Lester Yen WBC 5.9 103/ul Normal 4.0-11.[address] [facility] Comment on above: Performed By: #### C BC #### [facility] [address] [place] [address] ABD/PELV W CONon [...] Date: 2022-05-28 12:57 Normal [facility] ER URINE PROFILEon 2 Bilirubin Ql (U) Negative Normal NEGATIVE [facility] Comment on above: Performed By: #### E MANUELR, PREGU #### [facility] [address] [place] [address] Dr. Lester Yen Clarity (U) CLEAR Normal CLEAR [facility] Comment on above: Performed By: #### E RUR, PREGU #### [facility] [address] [place] [address] Dr. Lester Yen Color (U) LT. YELLOW Normal YELLOW [facility] Comment on above: Performed By: #### E RUR, PREGU #### [facility] [address] [place] [address] Dr. Lester Yen ERUAHD A micrscopic examination will be performed if indicated. Normal [facility] Comment on above: Performed By: #### E RUR, PREGU #### [facility] [address] [place] [address] Dr. Lester Yen Glucose Ql (U) Negative Normal NEGATIVE [facility] Comment on above: Performed By: #### E RUR, PREGU #### [facility] [address] [place] [address] Dr. Lester Yen Hemoglobin Ql (U) Negative Normal NEGATIVE [facility] Comment on above: Performed By: #### E RUR, PREGU #### [facility] [address] [place] [address] Dr. Lester Yen Ketones Ql (U) Negative Normal NEGATIVE [facility] Comment on above: Performed By: #### E RUR, PREGU #### [facility] [address] [place] [address] Dr. Lester Yen LEUKOCYTES Negative Normal NEGATIVE [facility] Comment on above: Performed By: #### E RUR, PREGU #### [facility] [address] [place] [address] Dr. Lester Yen Nitrite Ql (U) Negative Normal NEGATIVE [facility] Comment on above: Performed By: #### E RUR, PREGU #### [facility] [address] [place] [address] Dr. Lester Yen pH (U) 6.0 [pH] Normal 5-[address] [facility] Comment on above: Performed By: #### E RUR, PREGU #### [facility] [address] [place] [address] Dr. Lester Yen SPEC GRAVITY <=1.005 Abnormal 1.005-<=1.[address] [facility] Comment on above: Performed By: #### E RUR, PREGU #### [facility] [address] [place] [address] Dr. Lester Yen UA PROTEIN Negative Normal NEGATIVE/ TRACE [facility] Comment on above: Performed By: #### E RUR, PREGU #### [facility] [address] [place] [address] Dr. Lester Yen UR MICRO IND NOT INDICATED Normal [facility] Comment on above: Performed By: #### E RUR, PREGU #### [facility] [address] [place] [address] Dr. Lester Yen Urobilinogen Qn (U) 0.2 {Olivier'U}/dL Normal 0.2 - 1. [address] [facility] Comment on above: Performed By: #### E RUR, PREGU #### [facility] [address] [place] [address] Dr. Lester Yen LIPASEon 05-28-2022 Lipase [Catalytic activity/Vol] 96.0 U/L Normal 73.0-393.[address] [facility] Comment on above: Performed By: #### C MP LIPA, SYLVIA #### [facility] [address] [place] [address] Dr. Lester Yen URon 05-28-2022 , QUAL Negative Normal NEGATIVE [facility] Comment on above: Performed By: #### E MANUELR, PREGU #### [facility] [address] [place] [address] Dr. Lester Yen PROF 14(COMP METB)on 022 Albumin [Mass/Vol] 4.0 g/dL Normal 3.4-5.0 [facility] Comment on above: Performed By: #### C MP LIPA, SYLVIA #### [facility] [address] [place] [address] Dr. Lester Yne Albumin/Globulin [Mass ratio] 1.4 {ratio} Normal [facility] Comment on above: Performed By: #### C MP, LIPA, SYLVIA #### [facility] [address] [place] [address] Dr. Lester Yen ALP [Catalytic activity/Vol] 56 U/L Normal 46-116 [facility] Comment on above: Performed By: #### C MP, LIPA, SYLVIA #### [facility] [address] [place] [address] Dr. Lester Yen ALT [Catalytic activity/Vol] 14 U/L Normal 14-[address] [facility] Comment on above: Performed By: #### C MP, LIPA, SYLVIA #### [facility] [address] [address] [address] Lester Yen Anion gap [Moles/Vol] 13.3 mmol/L Normal [facility] Comment on above: Performed By: #### C MP, LIPA, SYLVIA #### [facility] [address] [address] [address] Lester Yen AST [Catalytic activity/Vol] 11 U/L Critically low 15-[address] [facility] Comment on above: Performed By: #### C MP, LIPA, SYLVIA #### [facility] [address] [address] [address] Lester Yen Bilirubin [Mass/Vol] 0.5 mg/dL Normal 0.2-1.[address] [facility] Comment on above: Performed By: #### C MP, LIPA, SYLVIA #### [facility] [address] [place] [address] Dr. Lester Yen Calcium [Mass/Vol] 8.9 mg/dL Normal 8.5-10.1 [facility] Comment on above: Performed By: #### C MP LIPA, SYLVIA #### [facility] [address] [place] [address] Dr. Lester Yen Chloride [Moles/Vol] 105 mmol/L Normal 98-107 [facility] Comment on above: Performed By: #### C MP, LIPA, SYLVIA #### [facility] [address] [address] [address] Lester Yen CO2 [Moles/Vol] 24.4 mmol/L Normal 21.0-32.0 [facility] Comment on above: Performed By: #### C MP, LIPA, SYLVIA #### [facility] [address] [place] [address] Dr. Lester Yen Creatinine [Mass/Vol] 0.88 mg/dL Normal 0.55-1.[address] [facility] Comment on above: Performed By: #### C MP, LIPA, SYLVIA #### [facility] [address] [place] [address] Dr. Lester Yen EGFR-AF ECUADOREAN >60 Normal >=60 [facility] Comment on above: Performed By: #### C ANJU PULIDO, SYLVIA #### [facility] [address] [address] [address] Lester Yen EGFR-NON AF ECUADOREAN >60 Normal >=[address] [facility] Comment on above: Performed By: #### C ANJU PULIDO, SYLVIA #### [facility] [address] [place] [address] Dr. Lester Yen Globulin (S) [Mass/Vol] 2.8 g/dL Normal T [facility] Comment on above: Performed By: #### C ANJU PULIDO, SYLVIA #### [facility] [address] [place] [address] Dr. Lester Yen Glucose [Mass/Vol] 100 mg/dL Normal 74-106 [facility] Comment on above: Performed By: #### C ANJU PULIDO, SYLVIA #### [facility] [address] [place] [address] Dr. Lester Yen Potassium [Moles/Vol] 3.7 mmol/L Normal 3.5-5.1 [facility] Comment on above: Performed By: #### C ANJU PULIDO, SYLVIA #### [facility] [address] [place] [address] Dr. Lester Yen Protein [Mass/Vol] 6.8 g/dL Normal 6.4-8.2 [facility] Comment on above: Performed By: #### C ANJU PULIDO, SYLVIA #### [facility] [address] [place] [address] Dr. Lester Yen Sodium [Moles/Vol] 139 mmol/L Normal 136-145 [facility] Comment on above: Performed By: #### C ANJU PULIDO, SYLVIA #### [facility] [address] [place] [address] Dr. Lester Yen Urea nitrogen [Mass/Vol] 13.0 mg/dL Normal 7.0-18.0 [facility] Comment on above: Performed By: #### C MPANJU AMY #### [facility] [address] [address] [address] Lester Yen Urea nitrogen/Creatinine [Mass ratio] 14.8 mg/mg Normal [facility] Comment on above: Performed By: #### C ANJU PULIDO AMY #### [facility] [address] [address] [address] Lester Yen Alf Documentson 04-19-2021 Alf Documents [id number] .[id number]:127 Normal [facility] Alf Documentson 06-06-2020 Alf Documents Alf Nurse Visit 14 day Health Appraisal Date [...] forearm Date vial opened: 05/18/2020 Lot number: [id number] Expiration date: 01/24 PPD Comments: PPD Results [...] wish to attend AA Meetings? _ sure Alf Assessment 05/31/20 15:54:00 Alf Assessment Entered On: 05/31/2020 15:56 EDT Performed [...] Pressure Posi (more content not included)... Normal [facility] Alf Documentson 05-29-2020 Alf Documents [id number]#1.00CD:127 Normal [facility] Chlam/GC/Trich,NAAon 020 C. trachomatis rRNA JOSE+probe Ql (Unsp spec) Negative Invalid Interpretation Code Negative [facility] Comment on above: Performed By: #### 1 [id number] #### [facility] [address] [place] [address] N. gonorrhoeae rRNA JOSE+probe Ql (Unsp spec) Negative Invalid Interpretation Code Negative [facility] Comment on above: Performed By: #### 1 [id number] #### [facility] [address] [place] [address] T. vaginalis DNA JOSE+probe Ql (Unsp spec) Negative Invalid Interpretation Code Negative [facility] Comment on above: Result Comment: Perf ormed at: =G [facility] [address] Muse [id number] MD Jama Valdivia Performed By: #### 1 [id number] #### [facility] [address] [place] [address] Coding Summary.on 05-15-2020 Coding Summary. CODING DATE: 05/15/[address] [facility] STATUS: Home (Routine DC) PAYOR: Medicaid [...] Revised Date Saved: 05/15/2020 10:37 am Normal [facility] Amylaseon 05-14-2020 Amylase [Catalytic activity/Vol] 58 U/L Normal 25-157 [facility] Comment on above: Performed By: #### 2 168842, 65836341, 9308615, 4904910, 8632959, 5244538, 7602893 ####[facility] [address] [place] [address] Auto Diffon 05-14-2020 Basophils/100 WBC (Bld) 0.5 % Normal 0.0-2.0 [facility] Comment on above: Order Comment: Order Added by Discern Expert. Performed By: #### 2 401968, 41493801, 7943145, 6734290, 4678379, 2037774, 3120769 ####[address] [place] [address] Basophils/Leukocytes Auto (Bld) [Pure # fraction] 0.0 E9/L Normal 0.0-0.2 [facility] Comment on above: Order Comment: Order Added by Discern Expert. Performed By: #### 2 558079, 10629278, 1256475, 3394186, 0981771, 1602625, 8170423 ####[address] [address] Eosinophils/100 WBC (Bld) 8.4 % High 0.0-8.0 [facility] Comment on above: Order Comment: Order Added by Discern Expert. Performed By: #### 2 610921, 57839949, 0296978, 6015633, 9925963, 3949153, 8064631 ####[address] [address] Eosinophils/Leukocytes Auto (Bld) [Pure # fraction] 0.5 E9/L Normal 0.0-0.5 [facility] Comment on above: Order Comment: Order Added by Discern Expert. Performed By: #### 2 873543, 53041228, 9579114, 4951508, 8697954, 5674036, 1161158 ####[address] [address] Lymphocytes/100 WBC (Bld) 31.4 % Normal 14.0-50.0 [facility] Comment on above: Order Comment: Order Added by Lacy Expert. Performed By: #### 2 761518, 85010726, 7705443, 9637865, 2049728, 7157835, 1896420 ####[address] [place] [address] Lymphocytes/Leukocytes Auto (Bld) [Pure # fraction] 1.8 E9/L Normal 1.0-4.0 [facility] Comment on above: Order Comment: Order Added by Discern Expert. Performed By: #### 2 748950, 17154845, 4543982, 7227627, 3441701, 1078988, 2843852 ####[address] [address] Monocytes/100 WBC (Bld) 8.2 % Normal 4.0-14.0 [facility] Comment on above: Order Comment: Order Added by Discern Expert. Performed By: #### 2 993263, 43853084, 0796685, 0655132, 0661210, 9377842, 2364761 ####[address] [address] Monocytes/Leukocytes Auto (Bld) [Pure # fraction] 0.5 E9/L Normal 0.2-1.0 [facility] Comment on above: Order Comment: Order Added by Lacy Expert. Performed By: #### 2 143689, 07956121, 7917370, 4176978, 3123643, 4292470, 1128066 ####[address] [address] Neutrophils/100 WBC (Bld) 51.5 % Normal 36.0-75.0 [facility] Comment on above: Order Comment: Order Added by Discern Expert. Performed By: #### 2 943710, 19525691, 7961180, 6401900, 8889454, 4247503, 4146977 ####[address] [place] [address] Neutrophils/Leukocytes Auto (Bld) [Pure # fraction] 2.9 E9/L Normal 2.0-7.5 [facility] Comment on above: Order Comment: Order Added by Lacy Expert. Performed By: #### 2 081952, 68064177, 2401787, 3400377, 1803648, 8379104, 2888649 ####[facility] [address] [place] [address] BMPon 05-14-2020 Creatinine [Mass/Vol] 0.9 mg/dL Normal 0.5-1.3 [facility] Comment on above: Performed By: #### 2 759040, 52343681, 6162313, 2182630, 8775030, 1609876, 2702065 ####[facility] [address] [place] [address] Urea nitrogen [Mass/Vol] 14 mg/dL Normal 5-21 [facility] Comment on above: Performed By: #### 2 256519, 90992319, 9042260, 8393634, 9903385, 9886077, 5861769 ####[facility] [address] [place] [address] Urea nitrogen/Creatinine [Mass ratio] 16 No Units Normal 10-20 [facility] Comment on above: Performed By: #### 2 112213, 22510929, 6963790, 0266399, 1776486, 9433661, 0392964 ####[facility] [address] [place] [place] [address] Anion gap [Moles/Vol] 12 mmol/L Normal 6-16 [facility] Comment on above: Performed By: #### 2 662320, 41271846, 6343578, 3813563, 8689841, 9003391, 6850839 ####[facility] [address] [place] [address] Calcium [Mass/Vol] 9.3 mg/dL Normal 8.9-11.1 [facility] Comment on above: Performed By: #### 2 313291, 96484039, 5876358, 6016174, 9170502, 9431095, 7425743 ####[facility] [address] [place] [address] Chloride [Moles/Vol] 103 mmol/L Normal 101-111 [facility] Comment on above: Performed By: #### 2 917249, 74041042, 7619016, 5357823, 6053907, 3442022, 7913862 ####[facility] [address] [place] [address] CO2 [Moles/Vol] 27 mmol/L Normal 21-31 [facility] Comment on above: Performed By: #### 2 818811, 14297205, 8632775, 4112690, 2101170, 2727355, 8255886 ####[facility] [address] [place] [address] Glucose [Mass/Vol] 89 mg/dL Normal 55-199 [facility] Comment on above: Result Comment: If t his glucose result represents a fasting glucose, interpretation should refer to the following reference range: 55-99 mg/dL Performed By: #### 2 194835, 41744685, 1405969, 6097874, 1140444, 2441105, 1059946 ####[facility] [address] [place] [address] Potassium [Moles/Vol] 3.8 mmol/L Normal 3.5-5.3 [facility] Comment on above: Performed By: #### 2 093023, 43465521, 4437269, 8575453, 0653557, 2014187, 3301620 ####[facility] [address] [place] [address] Sodium [Moles/Vol] 138 mmol/L Normal 135-145 [facility] Comment on above: Performed By: #### 2 533252, 62139788, 2114066, 4772090, 7682196, 3608657, 7566367 ####[facility] [address] [place] [address] CBC w/ Auto Diffon 0 Erythrocyte distribution width (RBC) [Ratio] 12.7 % Normal 10.9-14.2 [facility] Comment on above: Performed By: #### 2 482319, 64062711, 2714379, 4096320, 8651766, 1506809, 6504675 ####[facility] [address] [place], [place] [address] Hematocrit (Bld) [Volume fraction] 41.7 % Normal 34.0-46.0 [facility] Comment on above: Performed By: #### 2 565497, 39202395, 4683952, 7011136, 0413937, 2953881, 4568619 ####[address] Hemoglobin (Bld) [Mass/Vol] 13.9 g/dL Normal 12.0-16.0 [facility] Comment on above: Performed By: #### 2 119471, 78135672, 2946392, 5745743, 9181276, 9455193, 4061122 ####[address] MCH (RBC) [Entitic mass] 30.8 pg Normal 27.0-34.0 [facility] Comment on above: Performed By: #### 2 573826, 25108023, 5217433, 9297284, 0692075, 8992407, 6549033 ####[address] MCHC (RBC) [Mass/Vol] 33.3 g/dL Normal 31.4-36.0 [facility] Comment on above: Performed By: #### 2 906996, 08716390, 4864393, 3506277, 1521929, 8030268, 8564420 ####[address] MCV (RBC) [Entitic vol] 92.5 fL Normal 80.0-100.0 F [facility] Comment on above: Performed By: #### 2 848377, 65434534, 2494812, 8902555, 9450071, 7737098, 7520705 ####[address] [address] Platelet mean volume (Bld) [Entitic vol] 8.2 fL Normal 6.4-10.8 [facility] Comment on above: Performed By: #### 2 591762, 02460071, 8765299, 7566823, 7434358, 0170389, 7523713 ####[facility] [address] [place] [address] Platelets (Bld) [#/Vol] 230.0 E9/L Normal 150.0-500.0 [facility] Comment on above: Performed By: #### 2 790778, 56333628, 4178893, 0650682, 6461107, 9715933, 4913648 ####[facility] [address] [place] [address] RBC (Bld) [#/Vol] 4.5 E12/L Normal 4.3-5.9 [facility] Comment on above: Performed By: #### 2 122209, 75617345, 2495722, 6485886, 2649359, 5722691, 3454879 ####[facility] [address] [place] [address] WBC corrected for nucl RBC Auto (Bld) [#/Vol] 5.7 E9/L Normal 4.0-11.0 [facility] Comment on above: Performed By: #### 2 813096, 94765735, 3911670, 9635124, 0234187, 6842412, 2156344 ####[facility] [address] [place] [address] Discharge Instructionson Discharge Instructions [id number] #1.00CD:127 Normal [facility] ED Clinical Summaryon 2019 ED Clinical Summary [address] [address] ED Clinical Summary Person Information Name: BREANA PICKETT [facility] Age: 29 Years : 1990 Sex: Female Language: Argentine PCP: Mica CARLTON MD Marital Status: Single Phone: [phone] Visit Id: Visit Reason: Abdominal pain; STOMACH [...] 05/14/2020 04:35:55 05/14/2020 04:35:55 05/14/2020 04:35:55 ADDRESS: [address] [facility] [address] PHYS DOC NOTES: MEDICAL INFORMATION: Prescriptions Given: New Medications Printed Prescriptions levofloxacin (Levaquin 500 mg Tab) 1 Tablets By Mouth every day. Refills: 0. Medications to Continue with No Changes Other Medications escitalopram (Lexapro 10 mg Tab) 1 Tablets By Mouth every day. PATIENT EDUCATION INFORMATION: Instructions: Pelvic Pain, Female, Lokk-fp-Cmnp Follow up: With: Address: When: Mica CARLTON [address] [place] [address].[address], [place], [place] [id number] Business (1) In 3 days 05/17/2020 Comments: Followup with your assistant office manager next week DIAGNOSIS: 1:Abdominal pain in female; Pelvic pain Normal [facility] ED Note-Nursingon 05-14-2020 ED Note-Nursing Dr. Renner aware of patient c/o generalized abd pain, rates at 7/10. Order received for [place], 2 tabs, one-time only. Normal [facility] ED Note-Nursing Dr. Renner at bedside for results review. Normal [facility] ED Note-Nursing Patient to u/s Normal [facility] ED Note-Nursing Dr. Renner at bedside for results update. Normal [facility] ED Note-Nursing Patient to xray. Normal [facility] ED Note-Nursing Dr. Renner at bedside for assessment. Normal [facility] ED Note-Physicianon 05-14-20 20 ED Note-Physician [...] infection and recommend she followup with her assistant office manager Assessment/Plan 1. Abdominal pain in female [...] 22:35:00) Lymph Auto: 31.4 % (05/13/20 22:35:00) [place] Auto: 8.2 % (05/13/20 22:35:00) Eos Auto: 8.4 % High (05/13/20:35:00) Basophil Auto: 0.5 % (05/13/20 22:35:00) Neutro Absolute: 2.9 E9/L (05/13/20 22:35:00) Lymph Absolute: 1.8 E9/L (05/13/20 22:35:00) [place] Absolute: 0.5 E9/L (05/13/20 22:35:00) Eos Absolute: 0.5 E9/L (05/13/20 (more content not included)... Normal [facility] Comment on above: Result [...] Document Reviewed: 01/11/2013 ExitCare? Patient Information ?2015 [email or web address]. This information is not intended to replace advice given to you by your health care provider. Make sure you discuss any questions you have with your health care provider. Normal [facility] ED Patient Summaryon 020 ED Patient Summary [address] [place] [id number] Patient Discharge Instructions Person Information Name: BREANA PICKETT Age: 29 Years Arrival Date: 05/13/2020 21:43:46 Discharge Diagnosis: 1:Abdominal pain in female; Pelvic pain Primary Care Physician: Mica CARLTON MD Provider Information Primary Provider: Lucio Renner MD Advanced Service Worker:None The exam and treatment you received in the Emergency Department were for an urgent problem and are not intended as complete care. It is important that you follow up with a doctor, nurse practitioner, or physician?s assistant plant controller for ongoing care. If your symptoms become worse or you do not improve as expected and you are unable to reach your usual health care provider, you should return to the Emergency Department. We are available 24 hours a day. BREANA PICKETT has been given the following list of patient education materials, prescriptions and follow-up instructions: Follow-up Instructions: With: Address: When: Mica CARLTON [address] [place], [place] [address], [place] [phone] Business (1) In 3 days 05/17/2020 Comments: Followup with your assistant office manager next week In the event that this physician does not participate in your insurance network, please consult with your insurance company to find a nearby participating provider. Patient Education Materials: Pelvic Pain, Female, Ekfo-qk-Tiyo A MESSAGE TO ALL PATIENTS REGARDING OPIOIDS PRESCRIPTION OPIOIDS: WHAT YOU NEED TO KNOW Prescription opioids can be used to help relieve fyflaxwo-sp-wfnoqx pain and are often prescribed following a [...] tell your (more content not included)... Normal [facility] Hep Func Panelon 05-14-2020 Bilirubin.indirect [Mass or moles/Vol] UTC Abnormal 0.1-0.9 [facility] Comment on above: Result Comment: Resu lt verified by Discern Rule. Performed result UTC (Unable to Calculate) was sent as an Alpha code due the inability to calculate a valid numeric value. Performed By: #### 2 981440, 33891034, 9466572, 1181387, 8118983, 8316518, 5654089 ####[facility] [address] [place] [address] Albumin [Mass/Vol] 4.2 g/dL Normal 3.3-5.0 [facility] Comment on above: Performed By: #### 2 338176, 78035618, 2612079, 8091369, 3555988, 9993091, 1953646 ####[address] [address] Albumin/Globulin (S) [Mass conc ratio] 1.4 Normal 1.1-2.2 [facility] Comment on above: Performed By: #### 2 973735, 84255245, 9815940, 6949931, 4367374, 0056037, 9926213 ####[address] [address] ALP [Catalytic activity/Vol] 62 Int._Unit/L Normal 21-98 [facility] Comment on above: Performed By: #### 2 448513, 66889883, 3328307, 6285089, 4119737, 6410670, 6824264 ####[place] [address] ALT No additional P-5'-P [Catalytic activity/Vol] 15 Int._Unit/L Normal 6-46 [facility] Comment on above: Performed By: #### 2 722122, 31240300, 3597682, 2841548, 6229512, 3681528, 8168845 ####[address] [address] AST [Catalytic activity/Vol] 15 Int._Unit/L Normal 5-43 [facility] Comment on above: Performed By: #### 2 177389, 15838271, 4250647, 9782395, 0606575, 6681668, 9457004 ####[address] [place] [address] Bilirubin [Mass/Vol] 0.8 mg/dL Normal 0.0-1.1 [facility] Comment on above: Performed By: #### 2 034481, 47157736, 9329736, 3735367, 1171772, 7401296, 7043628 ####[address] [address] Bilirubin.direct [Mass/Vol] mg/dL Normal 0.1-0.4 [facility] Comment on above: Performed By: #### 2 818246, 35677700, 9627439, 8375134, 9552821, 2689970, 2115191 ####[facility] [address] [place] [address] Globulin (S) [Mass/Vol] 2.9 g/dL Normal 1.4-4.0 [facility] Comment on above: Performed By: #### 2 005887, 17513785, 5840399, 2407554, 8346762, 7333710, 4638394 ####[facility] [address] [place] [address] Protein [Mass/Vol] 7.1 g/dL Normal 6.0-7.8 [facility] Comment on above: Performed By: #### 2 904835, 71866975, 7079902, 8196371, 0796110, 9180938, 2322544 ####[facility] [address] [place] [address] Lipase Levelon 05-14-2020 Lipase [Catalytic activity/Vol] 36 U/L Normal 13-58 [facility] Comment on above: Performed By: #### 2 876300, 00614816, 0528864, 7884503, 9758365, 9849876, 3922663 ####[facility] [address] [place] [address] U BetaHcg Qualon 05-14-2020 HCG.beta subunit (U) [Moles/Vol] Negative Normal [facility] Comment on above: Performed By: #### 2 8077669, 98651197 #### [facility] [address] [place] [address] UA With Cult Reflexon 2019 Bilirubin Ql (U) Negative Normal Negative [facility] Comment on above: Performed By: #### 2 8560803, 51124381 #### [facility] [address] [place] [address] Clarity (U) SL CLOUDY Abnormal Clear [facility] Comment on above: Performed By: #### 2 9111240, 67044793 #### [facility] [address] [place] [address] Color (U) YELLOW Normal Yellow [facility] Comment on above: Performed By: #### 2 0785519, 17733960 #### [facility] [address] [place] [address] Epithelial cells.squamous LM.HPF (Urine sed) [#/Area] 3-4 Normal 0-2 [facility] Comment on above: Performed By: #### 2 3870214, 50243972 #### [facility] [address] [place] [address] Glucose Test strip (U) [Mass/Vol] Negative Normal Negative [facility] Comment on above: Performed By: #### 2 1033222, 37915051 #### [facility] [address] [place] [address] Hemoglobin Ql (U) Negative Normal Negative [facility] Comment on above: Performed By: #### 2 4561620, 31172702 #### [facility] [address] [place] [address] Ketones (U) [Mass/Vol] TRACE Abnormal Negative [facility] Comment on above: Performed By: #### 2 8267474, 28275736 #### [facility] [address] [place] [address] [place].plasma/[place]. RBC (Bld) [Mass ratio] 0-3 Normal 0-3 [facility] Comment on above: Performed By: #### 2 1653262, 00522840 #### [facility] [address] [place] [address] Nitrite Ql (U) Negative Normal Negative [facility] Comment on above: Performed By: #### 2 8684406, 47322467 #### [facility] [address] [place] [address] pH (U) 7.0 [pH] Invalid Interpretation Code 5.0-9.0 [facility] Comment on above: Performed By: #### 2 1305134, 74465127 #### [facility] [address] [place] [address] Protein (U) [Mass/Vol] Negative Normal Negative [place] Comment on above: Performed By: #### 2 8629141, 52583371 #### [facility] [address] [place] [address] Specific gravity (U) [Rel density] 1.020 Invalid Interpretation Code 1.005-1.030 [facility] Comment on above: Performed By: #### 2 1117841, 89995507 #### [facility] [address] [place] [address] UA Spec Desc Clean Catch Normal [facility] Comment on above: Performed By: #### 2 7139061, 50985329 #### [facility] [address] [place] [address] Urobilinogen Qn (U) 0.2 {Olivier'U}/dL Normal 0.0-1.0 [facility] [facility] Comment on above: Performed By: #### 2 [id number] #### [facility] [address] [place] [id number] WBC Auto Ql (U) Negative Normal Negative [facility] Comment on above: Performed By: #### 2 [id number] #### [facility] [address] [place] [address] WBC LM.HPF (Urine sed) [#/Area] 0-5 Normal 0-5 [facility] Comment on above: Performed By: #### 2 [id number] #### [facility] [address] [place] [address] US Pelvis Non-OB Completeon 05-14-2020 US Pelvis [...] TUCKER Technical Comments Transabdominal Ultrasound Performed Normal [facility] XR Abdomen Series w/ [...] DO Transcribed by: GABRIELE Technologist: TERESA Normal [facility] eGFRon 05-14-2020 GFR/1.73 sq M.predicted among blacks MDRD (S/P/Bld) [Vol rate/Area] mL/min/{1.73_m2} Normal >=59 [facility] Comment on above: Order Comment: Order added by Discern Expert. Result Comment: eGFR is race adjusted. AA=. Performed By: #### 2 [id number] ####[facility] [id number] [place] [address] GFR/1.73 sq M.predicted among non-blacks MDRD (S/P/Bld) [Vol rate/Area] mL/min/{1.73_m2} Normal >=59 [facility] Comment on above: Order Comment: Order added by Discern Expert. Result Comment: Performance Improvement Analyst pérez kidney disease could be indicated at eGFR's of less than 60 mL/min/1.73m2. Kidney failure is indicated at less than 15 mL/min/1.73m2. Performed By: #### 2 [id number] ####[facility] [id number] [place] [address] Consent for Treatmenton Consent for Treatment [id number] 00 [id number] #1.00CD:[id number] Normal [facility] Vital Signs Date Time Vital Sign Value Performing Clinician Facility 06-08-2025 13:18040 Body mass index (BMI) [Ratio] 25.3 kg/m2 Sylvia HEADLEY Work Phone: [facility] 06-08-2025 13:18040 Body weight 64.77 kg Sylvia HEADLEY Work Phone: [facility] 06-08-2025 13:18040 Diastolic blood pressure 72 mm[Hg] Sylvia HEADLEY Work Phone: [facility] 06-08-2025 13:18-0400 Systolic blood pressure 110 mm[Hg] Sylvia Romero PA Work Phone: [facility] 05-11-2025 14:18-0400 Body mass index (BMI) [Ratio] 25.4 kg/m2 Sylvia Heather PA Work Phone: [facility] 05-11-2025 14:18-0400 Body weight 65.05 kg Sylvia Heather PA Work Phone: [facility] 05-11-2025 14:18-0400 Diastolic blood pressure 58 mm[Hg] Sylvia Ninilchik PA Work Phone: [facility] 05-11-2025 14:18-0400 Systolic blood pressure 100 mm[Hg] Sylvia Romero PA Work Phone: [facility] 05-04-2025 13:42-0400 Body mass index (BMI) [Ratio] 25.69 kg/m2 Hector Power CHIEF LEGAL OFFICER Work Phone: [facility] 05-04-2025 13:42-0400 Body weight 65.77 kg Hector Power CHIEF LEGAL OFFICER Work Phone: [facility] 05-04-2025 13:42-0400 Diastolic blood pressure 64 mm[Hg] Hector Power CHIEF LEGAL OFFICER Work Phone: [facility] 05-04-2025 13:42-0400 Systolic blood pressure 110 mm[Hg] Hector Power CHIEF LEGAL OFFICER Work Phone: [facility] 04-26-2025 11:18-0400 Body mass index (BMI) [Ratio] 30.03 kg/m2 Dominic Mir DO Work Phone: [facility] 04-26-2025 11:18-0400 Body weight 76.89 kg Dominic Mir DO Work Phone: [facility] 04-26-2025 11:18-0400 Diastolic blood pressure 66 mm[Hg] Dominic Mir DO Work Phone: [facility] 04-26-2025 11:18-0400 Systolic blood pressure 110 mm[Hg] Dominic Mir DO Work Phone: [facility] 04-19-2025 14:23-0400 Body mass index (BMI) [Ratio] 29.54 kg/m2 Dominic Mir DO Work Phone: [facility] 04-19-2025 14:23-0400 Body weight 75.64 kg Dominic Mir DO Work Phone: [facility] 04-19-2025 14:23-0400 Diastolic blood pressure 58 mm[Hg] Dominic Mir DO Work Phone: [facility] 04-19-2025 14:23-0400 Systolic blood pressure 102 mm[Hg] Dominic Mir DO Work Phone: [facility] 04-06-2025 15:27-0400 Body mass index (BMI) [Ratio] 29.05 kg/m2 Sylvia HEADLEY Work Phone: [facility] 04-06-2025 15:27-0400 Body weight 74.39 kg Sylvia Romero PA Work Phone: [facility] 04-06-2025 15:27-0400 Diastolic blood pressure 74 mm[Hg] Sylvia Romero PA Work Phone: [facility] 04-06-2025 15:27-0400 Systolic blood pressure 120 mm[Hg] Sylvia Romero PA Work Phone: [facility] 03-23-2025 14:44-0400 Body mass index (BMI) [Ratio] 28.7 kg/m2 Dominic Mir DO Work Phone: [facility] 03-23-2025 14:44-0400 Body weight 73.48 kg Dominic Mir DO Work Phone: [facility] 03-23-2025 14:44-0400 Diastolic blood pressure 68 mm[Hg] Dominic Mir DO Work Phone: [facility] 03-23-2025 14:44-0400 Systolic blood pressure 112 mm[Hg] Dominic Mir DO Work Phone: [facility] 03-09-2025 14:55-0400 Body mass index (BMI) [Ratio] 28.21 kg/m2 Sylvia Romero PA Work Phone: [facility] 03-09-2025 14:55-0400 Body weight 72.23 kg Sylvia Romero PA Work Phone: [facility] 03-09-2025 14:55-0400 Diastolic blood pressure 60 mm[Hg] Sylvia Romero PA Work Phone: [facility] 03-09-2025 14:55-0400 Systolic blood pressure 98 mm[Hg] Sylvia Romero PA Work Phone: [facility] 02-23-2025 15:23-0400 Body mass index (BMI) [Ratio] 28.03 kg/m2 Dominic Mir DO Work Phone: [facility] 02-23-2025 15:23-0400 Body weight 71.78 kg Dominic Mir DO Work Phone: [facility] 02-23-2025 15:23-0400 Diastolic blood pressure 60 mm[Hg] Dominic Mir DO Work Phone: [facility] 02-23-2025 15:23-0400 Systolic blood pressure 100 mm[Hg] Dominic Mir DO Work Phone: [facility] 02-10-2025 10:44-0400 Diastolic blood pressure 54 mm[Hg] PHYSICIAN NO [facility] 02-10-2025 10:44-0400 Heart rate 53 /min PHYSICIAN NO [facility] 02-10-2025 10:44-0400 Respiratory rate 18 /min PHYSICIAN NO [facility] 02-10-2025 10:44-0400 SaO2% (BldA) [Mass fraction] 100 % PHYSICIAN NO [facility] 02-10-2025 10:44-0400 Systolic blood pressure 95 mm[Hg] PHYSICIAN NO [facility] 02-10-2025 08:40-0400 Body height 162.56 cm PHYSICIAN NO [facility] 02-10-2025 08:40-0400 Body weight 69.45 kg PHYSICIAN NO [facility] 02-10-2025 08:35-0400 Body temperature 98.2 [degF] PHYSICIAN NO [facility] 01-31-2025 15:23-0400 Body mass index (BMI) [Ratio] 28.48 kg/m2 Hector Steve CHIEF LEGAL OFFICER Work Phone: [facility] 01-31-2025 15:23-0400 Body weight 72.94 kg Hector Steve CHIEF LEGAL OFFICER Work Phone: [facility] 01-31-2025 15:23-0400 Diastolic blood pressure 58 mm[Hg] Hector Steve CHIEF LEGAL OFFICER Work Phone: [facility] 01-31-2025 15:23-0400 Systolic blood pressure 100 mm[Hg] Hector Steve CHIEF LEGAL OFFICER Work Phone: [facility] 12-28-2024 15:01-0400 Body mass index (BMI) [Ratio] 25.69 kg/m2 Dominic Mir DO Work Phone: [facility] 12-28-2024 15:01-0400 Body weight 65.77 kg Dominic Mir DO Work Phone: [facility] 12-28-2024 15:01-0400 Diastolic blood pressure 56 mm[Hg] Dominic Mir DO Work Phone: [facility] 12-28-2024 15:01-0400 Systolic blood pressure 96 mm[Hg] Dominic Mir DO Work Phone: [facility] 11-30-2024 15:04-0500 Body mass index (BMI) [Ratio] 24.62 kg/m2 Sylvia HEADLEY Work Phone: [facility] 11-30-2024 15:04-0500 Body weight 63.05 kg Sylvia HEADLEY Work Phone: [facility] 11-30-2024 15:04-0500 Diastolic blood pressure 62 mm[Hg] Sylvia HEADLEY Work Phone: [facility] 11-30-2024 15:04-0500 Systolic blood pressure 100 mm[Hg] Sylvia HEADLEY Work Phone: [facility] 11-02-2024 10:59-0500 Body mass index (BMI) [Ratio] 23.91 kg/m2 Dominic Mir DO Work Phone: [facility] 11-02-2024 10:59-0500 Body weight 61.24 kg Dominic Mir DO Work Phone: [facility] 11-02-2024 10:59-0500 Diastolic blood pressure 68 mm[Hg] Dominic Mir DO Work Phone: [facility] 11-02-2024 10:59-0500 Systolic blood pressure 116 mm[Hg] Dominic Mir DO Work Phone: [facility] 10-26-2024 10:04-0500 Body temperature 98.5 [degF] PHYSICIAN NO [facility] 10-26-2024 10:04-0500 Diastolic blood pressure 64 mm[Hg] PHYSICIAN NO [facility] 10-26-2024 10:04-0500 Heart rate 60 /min PHYSICIAN NO [facility] 10-26-2024 10:04-0500 Respiratory rate 18 /min PHYSICIAN NO [facility] 10-26-2024 10:04-0500 SaO2% (BldA) [Mass fraction] 100 % PHYSICIAN NO [facility] 10-26-2024 10:04-0500 Systolic blood pressure 111 mm[Hg] PHYSICIAN NO [facility] 10-26-2024 10:02-0500 Body height 160.02 cm PHYSICIAN NO [facility] 10-26-2024 10:02-0500 Body weight 58.5 kg PHYSICIAN NO [facility] 10-01-2024 11:38-0500 Body mass index (BMI) [Ratio] 22.11 kg/m2 Noms Nurse [facility] 10-01-2024 11:38-0500 Body weight 56.61 kg [facility] Nurse [facility] 10-01-2024 11:38-0500 Diastolic blood pressure 70 mm[Hg] Nom Nurse [facility] 10-01-2024 11:38-0500 Systolic blood pressure 120 mm[Hg] Nom Nurse [facility] 07-19-2024 13:26-0400 Body mass index (BMI) [Ratio] 22.5 kg/m2 Dominic Mir DO Work Phone: [facility] 07-19-2024 13:26-0400 Body weight 57.61 kg Dominic Mir DO Work Phone: [facility] 07-19-2024 13:26-0400 Diastolic blood pressure 60 mm[Hg] Dominic Mir DO Work Phone: [facility] 07-19-2024 13:26-0400 Systolic blood pressure 110 mm[Hg] Dominic Mir DO Work Phone: [facility] 06-29-2024 14:00-0400 Body mass index (BMI) [Ratio] 20.73 kg/m2 Dominic Mir DO Work Phone: [facility] 06-29-2024 14:00-0400 Body weight 53.07 kg Dominic Mir DO Work Phone: [facility] 06-29-2024 14:00-0400 Diastolic blood pressure 66 mm[Hg] Dominic Mir DO Work Phone: [facility] 06-29-2024 14:00-0400 Systolic blood pressure 108 mm[Hg] Dominic Mir DO Work Phone: [facility] 06-17-2024 14:12-0400 Body height 160.02 cm PHYSICIAN NO [facility] 06-17-2024 14:12-0400 Body temperature 98.5 [degF] PHYSICIAN NO [facility] 06-17-2024 14:12-0400 Body weight 52.4 kg PHYSICIAN NO [facility] 06-17-2024 14:12-0400 Diastolic blood pressure 52 mm[Hg] PHYSICIAN NO [facility] 06-17-2024 14:12-0400 Heart rate 72 /min [facility]YSIC[facility] 06-17-2024 14:12-0400 Respiratory rate 20 /min PHYSICIAN NO [facility] R [facility] 06-17-2024 14:12-0400 SaO2% (BldA) [Mass fraction] 99 % PHYSICIAN NO [facility] 06-17-2024 14:12-0400 Systolic blood pressure 109 mm[Hg] PHYSICIAN NO [facility] 04-07-2023 14:45-0400 Body height 160.02 cm Dutch Vanessa Other [employer] Other 04-07-2023 14:45-0400 Body mass index (BMI) [Ratio] 21.25 kg/m2 Dutch Vanessa Other [employer] Other 04-07-2023 14:45-0400 Body temperature 98 [degF] Dutch [place] Other [employer] Other 04-07-2023 14:45-0400 Body weight 54.43 kg Dutch Mendez Other [employer] Other 04-07-2023 14:45-0400 Diastolic blood pressure 62 mm[Hg] Dutch [place] Other [employer] Other 04-07-2023 14:45-0400 Respiratory rate 18 /min Dutch Mattsonaker Other [employer] Other 04-07-2023 14:45-0400 SaO2% (BldA) [Mass fraction] 97 % Dutch [place] Other [employer] Other 04-07-2023 14:45-0400 Systolic blood pressure 99 mm[Hg] Dutch [place] Other [employer] Other 01-03-2023 18:30-0400 Diastolic blood pressure 53 mm[Hg] CHIEF LEGAL OFFICER-C Naomy Luby Work Phone: [facility] 01-03-2023 18:30-0400 Heart rate 51 /min CHIEF LEGAL OFFICER-C Naomy Luby Work Phone: [facility] 01-03-2023 18:30-0400 Respiratory rate 16 /min CHIEF LEGAL OFFICER-C Naomy Luby Work Phone: [facility] 01-03-2023 18:30-0400 SaO2% (BldA) [Mass fraction] 100 % CHIEF LEGAL OFFICER-C Naomy Luby Work Phone: [facility] 01-03-2023 18:30-0400 Systolic blood pressure 96 mm[Hg] CHIEF LEGAL OFFICER-C Naomy Luby Work Phone: [facility] 01-03-2023 14:50-0400 Body height 160.02 cm CHIEF LEGAL OFFICER-C Naomy Luby Work Phone: [facility] 01-03-2023 14:50-0400 Body temperature 98.1 [degF] CHIEF LEGAL OFFICER-C Naomy Luby Work Phone: [facility] 01-03-2023 14:50-0400 Body weight 58.65 kg CHIEF LEGAL OFFICER-C Naomy Luby Work Phone: [facility] 08-02-2022 20:04-0400 Diastolic blood pressure 51 mm[Hg] CHIEF LEGAL OFFICER-C Naomy Luby Work Phone: [facility] 08-02-2022 20:04-0400 Heart rate 81 /min CHIEF LEGAL OFFICER-C Naomy Luby Work Phone: [facility] 08-02-2022 20:04-0400 Respiratory rate 16 /min CHIEF LEGAL OFFICER-C Naomy Luby Work Phone: [facility] 08-02-2022 20:04-0400 SaO2% (BldA) [Mass fraction] 100 % CHIEF LEGAL OFFICER-C Naomy Luby Work Phone: [facility] 08-02-2022 20:04-0400 Systolic blood pressure 104 mm[Hg] CHIEF LEGAL OFFICER-C Naomy Garcia Work Phone: [facility] 08-02-2022 17:33-0400 Body height 160.02 cm CHIEF LEGAL OFFICER-C Naomy Garcia Work Phone: [facility] 08-02-2022 17:33-0400 Body temperature 98.8 [degF] CHIEF LEGAL OFFICER-C Naomy Garcia Work Phone: [facility] 08-02-2022 17:33-0400 Body weight 59.4 kg CHIEF LEGAL OFFICER-C Naomy Garcia Work Phone: [facility] Encounters Encounter Date Encounter Type Care Provider Facility Start: 06-08-2025 End: 06-08-2025 Clinisync Result Encounter Sylvia HEADLEY Work Phone: [facility] Unsolicited Start: 06-08-2025 End: 06-08-2025 Clinisync Result Encounter Sylvia HEADLEY Work Phone: [facility] Unsolicited Start: 06-08-2025 End: 06-08-2025 care visit Sylvia HEADLEY Work Phone: [facility] Comment on above: 6 weeks f ollow-up ([facility]); Abnormal uterine bleeding (AUB); Dysfunctional uterine bleeding; Generalized abdominal pain; Nausea Start: 05-11-2025 End: 05-11-2025 ambulatory Sylvia HEADLEY Work Phone: [facility] Comment on above: Postoperative visit; S/P section; Vaginal bleeding; Other constipation Start: 05-09-2025 End: 05-09-2025 Telephone encounter Adriana Hartman [facility] Start: 05-04-2025 End: 05-04-2025 Bamboo flowsdallin Steve NP Work Phone: [facility] Start: 05-04-2025 End: 05-06-2025 Bamboo flowsheet Hector Steve CHIEF LEGAL OFFICER Work Phone: [facility] Start: 05-04-2025 End: 05-06-2025 External Result Encounter Hector Steve CHIEF LEGAL OFFICER Work Phone: [facility] External [facility] Unsolicited Start: 05-04-2025 End: 05-04-2025 ambulatory HECTOR STEVE Not Available Start: 05-04-2025 End: 05-04-2025 Postop follow up visit related to original px Hector Steve CHIEF LEGAL OFFICER Work Phone: [facility] Comment on [...] Comment on above: Third trimester preg freddie ([facility]); 37 weeks gestation of ([facility]) Start: 04-26-2025 End: 04-26-2025 ambulatory DOMINIC MIR Not Available Start: 04-21-2025 End: 04-21-2025 Clinisync Result Encounter Sylvia HEADLEY Work Phone: [facility] Unsolicited Start: 04-21-2025 End: 04-21-2025 Clinisync Result Encounter Sylvia HEADLEY Work Phone: [facility] Unsolicited Start: 04-19-2025 End: 04-19-2025 Office outpatient visit 15 minutes Dominic Mir DO Work Phone: [facility] Comment on above: Third trimester preg freddie ([facility]); Mood changes Start: 04-19-2025 End: 04-19-2025 ambulatory [...] on above: size inconsist ent with dates ([facility]); 34 weeks gestation of ([facility]); Third trimester ([facility]); Excessive growth affecting management of in third trimester, single or unspecified fetus ([facility]) Start: 04-06-2025 End: 04-06-2025 ambulatory [...] Comment on above: Third trimester preg freddie ([facility]); 32 weeks gestation of ([facility]); size inconsistent with dates ([facility]) Start: 03-23-2025 End: 03-23-2025 ambulatory [...] End: 02-17-2025 Clinisync Result Encounter Hector Steve CHIEF LEGAL OFFICER Work Phone: [facility] Unsolicited Start: 02-17-2025 End: 02-17-2025 Clinisync Result Encounter Hector Steve CHIEF LEGAL OFFICER Work Phone: [facility] External [facility] Unsolicited Start: 02-10-2025 End: 02-10-2025 Emergency department patient visit PHYSICIAN [facility] Work Phone: Start: 01-31-2025 End: 01-31-2025 ambulatory HECTOR POWER Not Available Start: 01-31-2025 End: 01-31-2025 Office outpatient visit 15 minutes Hector Steve CHIEF LEGAL OFFICER Work Phone: [facility] Comment on above: 25 weeks gestation o f ; Second trimester ; Encounter for follow-up ultrasound of anatomy; Diabetes mellitus screening Start: 01-31-2025 End: 01-31-2025 Bamboo flowsheet Hector Steve CHIEF LEGAL OFFICER Work Phone: [facility] Start: 01-31-2025 End: 01-31-2025 Bamboo flowsheet Hector Power CHIEF LEGAL OFFICER Work Phone: [facility] Start: 12-28-2024 [...] visit 15 minutes Sylvia HEADLEY Work Phone: [facility] Comment on above: 16 weeks gestation o f ; Second trimester ; Well woman exam with routine gynecological exam; STD exposure; Vaginal discharge; Screening, , for anatomic survey Start: 11-30-2024 End: 11-30-2024 Patient encounter procedure Sylvia HEADLEY Work Phone: [facility] Start: 11-30-2024 End: 11-30-2024 ambulatory SYLVIA ROMERO Not Available Start: 11-30-2024 End: 11-30-2024 Bamboo flowsheet Sylvia HEADLEY Work Phone: [facility] Start: 11-30-2024 End: 12-06-2024 Bamboo flowsheet Sylvia HEADLEY Work Phone: [facility] Start: 11-30-2024 End: 12-06-2024 Clinisync Result Encounter Sylvia HEADLEY Work Phone: [facility] External Department Unsolicited Start: 11-02-2024 End: [...] 10-26-2024 Emergency department patient visit PHYSICIAN KARLY [facility] Work Phone: Start: 10-19-2024 End: 10-19-2024 Clinisync Result Encounter Doimnic Mir DO Work Phone: [facility] Unsolicited Start: 10-19-2024 End: 10-19-2024 Clinisync Result Encounter Dominic Imr DO Work Phone: [facility] External [facility] Unsolicited [...] patient visit PHYSICIAN KARLY GAN [facility] Work Phone: Start: 04-24-2024 End: 04-24-2024 Patient encounter procedure CHIEF LEGAL OFFICER-C Naomy Garcia Work Phone: [facility] Work Phone: Start: 04-24-2024 End: 04-24-2024 ambulatory CHIEF LEGAL OFFICER-C Naomy Garcia Work Phone: [facility] Work Phone: Start: 02-09-2024 End: 02-09-2024 ambulatory CHIEF LEGAL OFFICER-C Naomy Garcia Work Phone: [facility] Work Phone: Start: 02-09-2024 End: 02-09-2024 Patient encounter procedure CHIEF LEGAL OFFICER-C Naomy Garcia Work Phone: [facility] Work Phone: Start: 04-07-2023 End: 04-07-2023 ambulatory Dutch Mendez Other [facility] Other Start: 04-07-2023 Office outpatient ne w 20 minutes Dutch Mendez [facility] Start: 03-28-2023 End: 03-28-2023 ambulatory CHIEF LEGAL OFFICER-C Naomy Garcia Work Phone: [facility] Work Phone: Start: 03-28-2023 End: 03-28-2023 Patient encounter procedure CHIEF LEGAL OFFICER-C Naomy Garcia Work Phone: [facility] Work Phone: Start: 01-17-2023 End: 01-17-[address] DOMINIC HESTER . Facility:[facility] Start: 01-17-2023 End: 01-18-[address] DOMINIC HESTER . Facility:[facility] Start: 01-03-2023 End: 01-04-[address] DOCTOR PATEL Facility:[facility] Start: 01-03-2023 End: 01-03-2023 Emergency department patient visit CHIEF LEGAL OFFICER-Lauren Garcia Work Phone: [facility]Emergency Room Work Phone: Start: 12-26-2022 End: 12-27-[address] DOMINIC HESTER . Facility:[facility] Start: 12-25-2022 End: 12-26-[address] DOMINIC HESTER . Facility:[facility] Start: 08-02-2022 End: 08-02-2022 Emergency department patient visit CHIEF LEGAL OFFICER-C Naomy Garcia Work Phone: [facility] Start: 07-31-2022 Encounter for other preprocedural examination DR DOMINIC HESTER . [facility] Start: 07-29-2022 End: 07-30-2022 Encounter for other preprocedural examination DR DOMINIC HESTER . Facility:[facility] Start: 07-29-2022 End: 07-30-[address] DOMINIC HESTER . Facility:[facility] Start: 07-16-2022 End: 07-17-[address] DOMINIC HESTER . Facility:[facility] Start: 06-18-2022 End: 06-18-2022 Patient encounter procedure CHIEF LEGAL OFFICER-Lauren Garcia Work Phone: [facility] Start: 06-01-[address] DOMINIC HESTER . Facili ty:[facility] Start: 05-30-2022 End: 05-30-[address] DOMINIC HESTER . Facility:[facility] Start: 05-28-2022 End: 05-28-2022 ambulatory ROGELIO HERNANDEZ . Facility: Procedures Date Procedure Procedure Detail Performing Clinician Start: 06-08-2025 ALL CBC WITH AUTO DIFF Sylvia HEADLEY Work Phone: Start: 06-08-2025 Urnls dip stick/tablet rgnt non-auto w/o micrscp Sylvia HEADLEY Work Phone: Start: 05-11-2025 Urnls dip stick/tablet rgnt non-auto w/o micrscp Sylvia HEADLEY Work Phone: Start: 05-04-2025 URINARY TRACT INFECTION (HTRX) Hector Steve CHIEF LEGAL OFFICER Work Phone: Start: 05-04-2025 Urnls dip stick/tablet rgnt non-auto w/o micrscp Hector Steve CHIEF LEGAL OFFICER Work Phone: Start: 04-28-2025 ALL CBC WITH [...] Urnls dip stick/tablet rgnt non-auto w/o micrscp Sylvia HEADLEY Work Phone: Start: 04-06-2025 US OB GROWTH Dominic Mir DO Work Phone: Start: 03-23-2025 Urnls dip stick/tablet rgnt non-auto w/o micrscp Dominic Mir DO Work Phone: Start: 03-09-2025 Urnls dip stick/tablet rgnt non-auto w/o micrscp Sylvia HEADLEY Work Phone: Start: 02-23-2025 Urnls dip stick/tablet rgnt non-auto w/o micrscp Dominic Mir DO Work Phone: Start: 02-17-2025 ALL CBC WITH AUTO DIFF Hector Steve N P Work Phone: Start: 01-31-2025 Urnls dip stick/tablet rgnt non-auto w/o micrscp Hector Steve CHIEF LEGAL OFFICER Work Phone: Start: 12-28-2024 Urnls dip stick/tablet rgnt non-auto w/o micrscp Dominic Mir DO Work Phone: Start: 11-30-2024 Urnls dip stick/tablet rgnt non-auto w/o micrscp Sylvia EHADLEY Work Phone: Start: 11-30-2024 IGP,APTIMA HPV,AGE GDLN Sylvia HEADLEY Work Phone: Start: 11-30-2024 Microscopic observation [...] DO Work Phone: Start: 02-09-2024 Pelvic echography CHIEF LEGAL OFFICER-C Naomy Garcia Work Phone: Start: 02-09-2024 Transvaginal echography CHIEF LEGAL OFFICER-C Naomy Garcia Work Phone: Start: 05-30-2023 Microscopic observation [Identifier] in Cervix by Cyto stain Dominic Mir DO Work Phone: Start: 01-03-2023 Diagnostic ultrasound of gravid uterus CHIEF LEGAL OFFICER-C Naomy Garcia Work Phone: Start: 01-03-2023 Ultrasonography of right kidney CHIEF LEGAL OFFICER-C Naomy Garcia Work Phone: Start: 01-03-2023 Transvaginal obstetric ultrasonography CHIEF LEGAL OFFICER-Lauren Garcia Work Phone: H/O: section S/P sectio n Hector Steve CHIEF LEGAL OFFICER Work Phone: H/O: section S/P sectio n Sylvia HEADLEY Work Phone: Plan of Treatment Date Care Activity Detail Author Start: 05-30-2028 Screening for malign ant neoplasm of cervix [facility] Start: 11-30-2025 Screening for malign ant neoplasm of cervix [facility] Start: 06-08-2025 End: 06-08-2025 ambulatory 06/08/2025 1:00 PM EDT Visit [facility] [address] [id number] Sylvia Romero PA [address] [place], [place] [address] [facility]BGYN Start: 06-06-2025 Influenza vaccination N [facility] Start: 05-04-2025 End: 05-04-2025 Patient encounter procedure 05/04/2025 1:30 PM EDT Office Visit [facility] OB [address] [phone] Hector Steve, CHIEF LEGAL OFFICER [address] [place] [address] [facility] Start: 04-26-2025 End: 04-26-2025 Patient encounter procedure [facility] Comment on above: Arrived Start: 04-19-2025 End: 04-19-2025 Patient encounter procedure [facility] Comment on above: Arrived Start: 04-19-2025 End: 04-19-2026 CULTURE, GROUP B STREP WITH SUSCEPTIBLITY CULTURE, GROUP B STREP WITH SUSCEPTIBLITY Lab Routine Third trimester ([facility]) Expected: 04/19/2025, Expires: 04/19/2026 [facility] Work Phone: Comment on above: Expected: 04/19/2025 , Expires: 04/19/2026 Start: 04-06-2025 End: 04-06-2025 Patient encounter procedure 04/06/2025 2:50 PM EDT Routine [facility] [address] [place] [phone] Sylvia Romero PA [address] [place] [address] [facility] Start: 03-23-2025 End: 03-23-2025 Patient encounter procedure [facility] Comment on above: Arrived Start: 03-23-2025 End: 07-23-2025 US for US OB follow up transabdominal approach Imaging Routine size inconsistent with dates ([facility]) Expected: 03/23/2025, Expires: 07/23/2025 [facility] Work Phone: Comment on above: Expected: 03/23/2025 , Expires: 07/23/2025 Start: 03-09-2025 End: 03-09-2025 Patient encounter procedure [facility] Comment on above: Arrived Start: 02-23-2025 End: 02-23-2025 Patient encounter procedure [facility] Comment on above: Arrived Start: 02-10-2025 [facility] Start: 02-03-2025 End: 02-03-2025 Professional / ancillary services management 02/03/2025 2:30 PM EDT Ancillary Procedure [facility] [address] [place] [phone] [facility] Start: 01-31-2025 End: 01-31-2026 CBC panel - Blood by Automated count CBC Lab Routine Diabetes mellitus screening Expected: 01/31/2025 (Approximate), Expires: 01/31/2026 [facility] Healthcare Comment on above: Expected: 01/31/2025 [...] [facility] [address] [place] [phone] Sylvia Romero PA [address] [place], [place] [phone] [facility] Start: 12-28-2024 End: 12-28-2024 Patient encounter procedure 12/28/2024 2:40 PM EDT Routine [facility] [address] [place] [phone] Dominic Hester, [address] [place] [address] [facility] Start: 12-28-2024 End: 12-28-2024 Professional / ancillary services management 12/28/2024 1:30 PM EDT Ancillary Procedure [facility] [address] [place] [address] [facility] Start: 12-20-2024 End: 12-20-2024 Patient encounter procedure 12/20/2024 2:10 PM EDT Office Visit [facility] [address] [place] [address] Dominic Hester DO [address] [place] [address] [facility] Start: 11-30-2024 End: 11-30-2024 Patient encounter procedure 11/30/2024 2:30 PM EST Routine [facility] [address] [place] [phone] Sylvia Romero PA [address] [place] [address] Arrived [facility] Comment on above: [...] AM EST Routine [facility] [address] [place] [phone] Dominic Hester DO [address] [place] [address] [facility] Start: 10-01-2024 End: 10-01-2025 [...] first trimester Expected: 10/01/2024 (Approximate), Expires: 10/01/2025 [facility] Healthcare Comment on above: Expected: 10/01/2024 (Approximate), Expires: 10/01/2025 Start: 07-19-2024 End: 07-19-2024 Patient encounter procedure 07/19/2024 1:00 PM EDT Office Visit [facility] OB [address] [place] [address] Dominic Hester, DO [address] [place] [address] [facility] Start: 06-29-2024 End: 06-29-2025 SURESWAB(R) ADVANCED VAGINITIS PLUS, TMA SURESWAB(R) ADVANCED VAGINITIS PLUS, TMA Pathology and Cytology Routine Pelvic pain in female Expected: 06/29/2024 (Approximate), Expires: 06/29/2025 [facility] Healthcare Work Phone: Comment on above: Expected: 06/29/2024 (Approximate), Expires: 06/29/2025 Start: 06-29-2024 End: 06-29-2025 US for US PELVIS-TRANSVAG IF INDICATED Imaging Routine Pelvic pain in female Expected: 06/29/2024 (Approximate), Expires: 06/29/2025 [facility] Healthcare Comment on above: Expected: 06/29/2024 (Approximate), Expires: 06/29/2025 Start: 06-29-2024 End: 06-29-2024 Patient encounter procedure 06/29/2024 1:40 PM EDT Office Visit [facility] OB [address] [place] [address] Dominic Hester, DO [address] [place], [place] [id number] Arrived [facility] OB Comment on above: Arrived Start: 06-06-2024 Influenza vaccination Influenza Vacc ine (#1) [facility] Start: 03-28-2023 [facility] Start: 01-03-2023 [facility] Start: 06-18-2022 [facility] Work Phone: Bacteria identified in Blood by Culture Blood Culture [facility] Bacteria identified in Urine by Culture Urine culture Microbiology Routine Missed menses Ordered: 10/01/2024 [facility] Comment on above: Ordered: 10/01/2024 Bacteria identified in Urine by Culture Urine culture Microbiology Routine Vaginal bleeding Ordered: 05/11/2025 [facility] Work Phone: Comment on above: Ordered: 05/11/2025 Bacteria identified in Urine by Culture Urine culture Microbiology Routine Dysfunctional uterine bleeding Generalized abdominal pain Ordered: 06/08/2025 [facility] Comment on above: Ordered: 06/08/2025 CBC panel - Blood by Automated count CBC Lab Routine Abnormal uterine bleeding (AUB) Ordered: 06/08/2025 [facility] Work Phone: Comment on above: Ordered: 06/08/2025 CBC W Auto Different ial panel - Blood CBC and differential Lab Routine Missed menses , unspecified gestational age Ordered: 10/01/2024 [facility] Comment on above: Ordered: 10/01/2024 CBC W Auto Different ial panel - Blood CBC and differential Lab Routine Postoperative visit S/P section Ordered: 05/04/2025 [facility] Work Phone: Comment on above: Ordered: 05/04/2025 CHLAMYDIA TRACHOMATI S (GENITO/STI) CHLAMYDIA TRACHOMATIS (GENITO/STI) Lab Routine Pelvic pain in female Ordered: 06/29/2024 [facility] Comment on above: Ordered: 06/29/2024 CHLAMYDIA TRACHOMATI S (GENITO/STI) CHLAMYDIA TRACHOMATIS (GENITO/STI) Lab Routine STD exposure Vaginal discharge Ordered: 11/30/2024 [facility] Comment on above: Ordered: 11/30/2024 Comprehensive metabo lic 2000 panel - Serum or Plasma Comprehensive metabolic panel Lab Routine Postoperative visit S/P section Ordered: 05/04/2025 [facility] Comment on above: Ordered: 05/04/2025 Cytology Cervical or vaginal smear or scraping study Pap Smear Pathology and Cytology Routine Well woman exam with routine gynecological exam Ordered: 11/30/2024 [facility] Work Phone: Comment on above: Ordered: 11/30/2024 Glucose measurement estimated from glycated hemoglobin [facility] Hemoglobin A1c/Hemoglobin.total in Blood Hemoglobin A1c Lab Routine Missed menses , unspecified gestational age Ordered: 10/01/2024 [facility] Comment on above: Ordered: 10/01/2024 Hepatitis A virus antibody, IgM type [facility] Work Phone: Hepatitis B core antibody measurement, IgM type [facility] Work Phone: Hepatitis B virus surface Ag [Presence] in Serum or Plasma by Immunoassay [facility] Work Phone: Hepatitis B virus surface Ag [Presence] in Serum or Plasma by Immunoassay Hepatitis B surface antigen Lab Routine Missed menses , unspecified gestational age Ordered: 10/01/2024 [facility] Comment on above: Ordered: 10/01/2024 Hepatitis C virus Ab [Presence] in Serum or Plasma by Immunoassay Hepatitis C antibody Lab Routine Missed menses , unspecified gestational age Ordered: 10/01/2024 [facility] Comment on above: Ordered: 10/01/2024 Hepatitis C virus Ab Signal/Cutoff in Serum or Plasma by Immunoassay [facility] Work Phone: Hepatitis C virus RN A [log units/volume] (viral load) in Serum or Plasma by JOSE with probe detection [facility] Work Phone: Hepatitis C virus RN A [Units/volume] (viral load) in Serum or Plasma by JOSE with probe detection [facility] Work Phone: HIV 1+2 Ab+HIV1 p24 Ag [Presence] in Serum or Plasma by Immunoassay [facility] Work Phone: HIV-1/HIV-2 antigen/antibody combination immunoassay HIV-1 and HIV-2 antibodies Lab Routine Missed menses , unspecified gestational age Ordered: 10/01/2024 [facility] Comment on above: Ordered: 10/01/2024 Human papilloma viru s DNA [Presence] in Unspecified specimen by Probe with amplification HPV DNA probe, amplified Microbiology Routine Well woman exam with routine gynecological exam Ordered: 11/30/2024 [facility] Comment on above: Ordered: 11/30/2024 Neisseria gonorrhoea e DNA [Presence] in Unspecified specimen by JOSE with probe detection Neisseria gonorrhea DNA probe, direct Lab Routine Pelvic pain in female Ordered: 06/29/2024 [facility] Comment on above: Ordered: 06/29/2024 Neisseria gonorrhoea e DNA [Presence] in Unspecified specimen by JOSE with probe detection Neisseria gonorrhea DNA probe, direct Lab Routine STD exposure Vaginal discharge Ordered: 11/30/2024 [facility] Comment on above: Ordered: 11/30/2024 Patient Education [facility] Work Phone: Patient referral [facility] Work Phone: Reagin Ab [Presence] in Serum by RPR [facility] Work Phone: Reagin Ab [Presence] in Serum by RPR RPR Lab Routine Missed menses , unspecified gestational age Ordered: 10/01/2024 [facility] Comment on above: Ordered: 10/01/2024 Rubella antibody, IgG Rubella an tibody, IgG Lab Routine Missed menses , unspecified gestational age Ordered: 10/01/2024 [facility] Comment on above: Ordered: 10/01/2024 SURESWAB(R) ADVANCED VAGINITIS PLUS, TMA SURESWAB(R) ADVANCED VAGINITIS PLUS, TMA Pathology and Cytology Routine STD exposure Vaginal discharge Ordered: 11/30/2024 [facility] Comment on above: Ordered: 11/30/2024 US for US OB follow up transabdominal approach Imaging Routine size inconsistent with dates ([facility]) 04/06/2025 2:45 PM EDT [facility] Work Phone: Payers Date Payer Category Payer Medicaid [employer] [place] [id number] 2022-Present [address] [place] [address] [id number] 2022 Private Health Insurance [employer]ICA[employer] [id number] 1991 Unknown [id number] 2.16840.1.828903.3.579.2. 593 1991 Unknown [id number] 2.840.1.212331.3.579.2. 593 1991 Unknown [id number] 2.16.840.1.435950.3.579.2. 593 1991 Unknown [id number] 2.16.840.1.077594.3.579.2. 593 1991 Unknown [id number] 2.16840.1.186653.3.579.2. 593 1991 Unknown [id number] 2.840.1.932744.3.579.2. 593 1991 Unknown [id number] 2.16.840.1.003907.3.579.2. 593 1991 Unknown [id number] 2.16.840.1.252304.3.579.2. 593 1991 Unknown [id number] 2.16840.1.311319.3.579.2. 593 1991 Unknown [id number] 2.16.840.1.943380.3.579.2. 593 1991 Unknown [id number] 2.16.840.1.297788.3.579.2. 593 1991 Unknown [id number] 2.16.840.1.353997.3.579.2. 593 1991 Unknown [id number] 2.16.840.1.096431.3.579.2. 9 1991 Unknown [id number] 2.16.840.1.190903.3.579.2. 1258 1991 Unknown [id number] 2.16.840.1.322232.3.579.2. 1258 1991 Unknown [id number] 2.16.840.1.363576.3.579.2. 1258 1991 Unknown [id number] 2.16.840.1.708971.3.579.2. 1258 1991 Unknown [id number] 2.16.840.1.252211.3.579.2. 1258 1991 Unknown [id number] 2.16.840.1.454852.3.579.2. 1258 1991 Unknown [id number] 2.16.840.1.864886.3.579.2. 1258 1991 Unknown [id number] 2.16.840.1.217413.3.579.2. 1258 1991 Unknown [id number] 2.16.840.1.794412.3.579.2. 1258 1991 Unknown [id number] 2.16.840.1.331286.3.579.2. 1258 1991 Unknown [id number] 2.16.840.1.664565.3.579.2. 1258 1991 Unknown [id number] 2.16.840.1.678871.3.579.2. 1258 1991 Unknown [id number] 2.16.840.1.078138.3.579.2. 1258 1991 Unknown [id number] 2.16.840.1.492774.3.579.2. 1259 1991 Unknown [id number] 2.16.840.1.951696.3.579.2. 1259 1991 Unknown [id number] 2.16.840.1.384806.3.579.2. 1259 1959 Private Health Insurance [id number] 1959 Self-pay [id number] 1959 Unknown [id number] Self-pay Self Pay [id number] Social History Date Type Detail Facility Start: 01-05-2022 End: 06-17-2024 Tobacco smoking status [facility] Smoker (finding) [facility] Start: 1990 Sex Assigned At Female F [facility] Start: 01-03-2023 Tobacco smoking stat [facility] Never smoked tobacco (finding) [facility] Start: 03-09-2024 End: 05-03-2025 Sex Assigned At [facility] Start: 10-06-2010 Tobacco smoking stat [facility] Smokes tobacco daily [facility] Start: 10-06-2010 End: 05-21-2021 History of tobacco use Cigarette Smoker [facility] Start: 03-09-2024 Tobacco use and exposure Smokeless tobacco non-user [facility] Start: 06-29-2024 End: 06-08-2025 Alcoholic beverage intake Ex-drinker (finding) [facility] Start: 03-09-2024 End: 05-03-2025 History of Social function [facility] Start: 04-13-2023 Education [facility] Start: 04-13-2023 Alcohol Comment Alcohol: 1 or 2 drinks on typical day/monthly or less. Caffeine: 1 bottle pop daily; 2-3 cups/day coffee [facility] Start: 1990 Sex assigned at Not on file [facility] Start: 08-19-2024 [facility] Start: 10-26-2024 End: 02-10-2025 Tobacco smoking status NHIS Ex-smoker (finding) [facility] Start: 10-26-2024 End: 02-10-2025 Sex Female (finding) [facility] Functional Status Date Assessment Result Facility 05-03-2025 Patient Health Quest ionnaire 2 item (PHQ-2) [Reported] [facility] 03-01-2025 Patient Health Quest ionnaire 2 item (PHQ-2) [Reported] [facility] 03-01-2025 PHQ-9 quick depressi on assessment panel [Reported.PHQ] [facility] Clinical Notes 05-14-2020 to 06-08-2025 FANG Jackson - 06/08/2025 1:00 PM FANG Arevalo - 05/11/2025 1:50 PM EDTTelephone Encounter - Adriana Hartman MA - 05/09/2025 1:35 PM EDTMsabrina Hernandez MA - 05/04/2025 1:30 PM EDT Note Date & Type Note Facility 06-08-2025 History of Presen t illness Narrative Reason for Appointment: Patient ID: Breana Casas is a 34 y.o. female who presents for Care Patient presents today for Post Follow Up appointment. MEDICATIONS Current Outpatient Medications Medication Instructions cephalexin (KEFLEX) 500 mg, Oral, 3 times daily citalopram (CELEXA) 20 mg, Oral, Daily ibuprofen 800 mg, 3 times daily norethindrone (MICRONOR) 0.35 mg, Oral, Daily, Take 1 tablet by mouth daily ondansetron ODT (ZOFRAN-ODT) 4 mg, Oral, Every [...] Anovulation 07/19/2024 confirmed by positive blood test ([facility]) 09/09/2024 Resolved Ambulatory Problems Diagnosis Date Noted 20 weeks gestation of ([facility]) 12/28/2024 Second trimester ([facility]) 12/28/2024 Past Medical History: Diagnosis Date Anxiety Asthma (HCC) Dyspareunia in female Endometriosis Folliculitis Hematuria Miscarriage ([facility]) PID (acute pelvic inflammatory disease) Trichomoniasis 2012 HISTORY PAST MEDICAL HISTORY SOCIAL HISTORY Past Medical History: Diagnosis Date Anxiety Asthma ([facility]) Dysmenorrhea Dyspareunia in female Endometriosis Folliculitis Hematuria Miscarriage ([facility]) PID (acute pelvic inflammatory disease) Trichomoniasis 2012 Social History Tobacco Use Smoking status: Every Day Current packs/day: 0.00 Types: Cigarettes Start date: 10/06/2010 Last attempt to quit: 05/21/2021 Years since quittin.0 Smokeless tobacco: Never Vaping Use Vaping status: [...] Eyes: Negative. Respiratory: Negative. Cardiovascular: Negative. Gastrointestinal: Positive for abdominal pain. Genitourinary: Negative. Musculoskeletal: Negative. Skin: Positive for pallor. Neurological: Positive for dizziness. All other systems reviewed and are negative. [...] reviewed. Vitals: Estimated body mass index is 25.3 kg/m as calculated from the following: Height as of 03/09/24: 5' 3 . Weight as of this encounter: 142 lb 12.8 oz. BP: 110/72 No LMP recorded. ASSESSMENT & PLAN ICD-10-CM 1. 6 weeks follow-up ([facility]) Z39.2 norethindrone (Micronor) 0.35 MG tablet 2. Abnormal uterine bleeding (AUB) N93.9 CBC cephalexin (Keflex) 500 MG capsule 3. Dysfunctional uterine bleeding N93.8 Urine culture 4. Generalized abdominal pain R10.84 POCT urinalysis dipstick manually resulted Urine culture 5. Nausea R11.0 ondansetron ODT (Zofran-ODT) 4 MG disintegrating tablet Post Follow Up: Patient is doing well but has complaints of dizziness, heavy vaginal bleeding and increased post depression despite celexa. Patient presents today for 6 week visit. Patient is s/p delivery. Patient states depression but denies suicidal and homicidal ideations. All options were discussed with the patient regarding control and patient desires oral contraception . Patient ua show nitrates today, we will culture ua and start on keflex and zofran for nausea. Pt pale and states bleeding heavy with clots, we will get cbc and start norabe to help get bleeding regulated. We will also start on zurzuvae in addition to her celexa. Follow Up: Patient is to return for annual unless needed otherwise. Documented by FANG Jackson on behalf of: FANG Jackson documented in this encounter [facility] 05-11-2025 History of Presen t illness Narrative Reason for Appointment: Patient ID: Breana Casas is a 34 y.o. female who presents for excessive bleeding Patient presents today for 2 Week Post Op Follow Up appointment. MEDICATIONS Current Outpatient Medications Medication Instructions bisacodyl (DULCOLAX) 10 mg, Rectal, Daily citalopram (CELEXA) 20 mg, Oral, Daily docusate sodium (COLACE) 100 mg, Oral, 2 times daily PRN ibuprofen 800 mg, 3 times daily ondansetron ODT (ZOFRAN-ODT) 4 mg, Oral, Every [...] Anovulation 07/19/2024 confirmed by positive blood test ([facility]) 09/09/2024 Resolved Ambulatory Problems Diagnosis Date Noted 20 weeks gestation of ([facility]) 12/28/2024 Second trimester ([facility]) 12/28/2024 Past Medical History: Diagnosis Date Anxiety Asthma (HCC) Dyspareunia in female Endometriosis Folliculitis Hematuria Miscarriage ([facility]) PID (acute pelvic inflammatory disease) Trichomoniasis 2012 HISTORY PAST MEDICAL HISTORY SOCIAL HISTORY Past Medical History: Diagnosis Date Anxiety Asthma (HCC) Dysmenorrhea Dyspareunia in female Endometriosis Folliculitis Hematuria Miscarriage ([facility]) PID (acute pelvic inflammatory disease) Trichomoniasis 2012 [...] breath sounds. Abdominal: Palpations: Abdomen is soft. Comments: Pfannenstiel incision healing well Musculoskeletal: General: Normal range of motion. Neurological: General: No focal deficit present. Mental Status: She is alert and oriented to person, place, and time. Skin: General: Skin is warm and dry. Psychiatric: Mood and Affect: Mood normal. Behavior: Behavior normal. Thought Content: Thought content normal. Judgment: Judgment normal. Vitals and nursing note reviewed. Vitals: Estimated body mass index is 25.4 kg/m as calculated from the following: Height as of 03/09/24: 5' 3 . Weight as of this encounter: 143 lb 6.4 oz. BP: 100/58 No LMP recorded (lmp unknown). ASSESSMENT & PLAN ICD-10-CM 1. Postoperative visit Z48.89 2. S/P section Z98.891 3. Vaginal bleeding N93.9 POCT urinalysis dipstick manually resulted Urine culture 4. Other constipation K59.09 docusate sodium (Colace) 100 MG capsule bisacodyl (Dulcolax) 10 MG suppository Patient presents today for a 2 week postop section check. She presents today with abdominal cramping, abd is soft. Bowel sounds are active, but slow. We will send in prescriptions for constipation. Pt will follow up at 6week post or sooner if needed Follow Up: Patient is to return in 5 weeks for 6 week evaluation. Documented by FANG Jackson on behalf of: FANG Jackson documented in this encounter [facility] 05-09-2025 Telephone encounter Note Pt s/p csec on 04/27/2025. Pt states she went to ER on 05/08/2025 for heavy, bright red bleeding. Pt sent home from ER and that everything was normal. Pt states she's had continued bright red bleeding ranging from moderate to heavy. Currently having minimal bleeding. Pt states abdominal discomfit but no severe cramping. Pt would like to await response from dr. Hester. Pt to monitor sx and head to ER if sx's worsen. Please advise [facility] 05-09-2025 Miscellaneous Notes Pt s/p csec on 04/27/2025. Pt states she went to ER on 05/08/2025 for heavy, bright red bleeding. Pt sent home from ER and that everything was normal. Pt states she's had continued bright red bleeding ranging from moderate to heavy. Currently having minimal bleeding. Pt states abdominal discomfit but no severe cramping. Pt would like to await response from dr. Hester. Pt to monitor sx and head to ER if sx's worsen. Please advise documented in this encounter [facility] 05-04-2025 History of Presen t illness Narrative Reason [...] Anovulation 07/19/2024 confirmed by positive blood test ([facility]) 09/09/2024 Resolved Ambulatory Problems Diagnosis Date Noted 20 weeks gestation of ([facility]) 12/28/2024 Second trimester ([facility]) 12/28/2024 Past Medical History: Diagnosis Date Anxiety Asthma (HCC) Dyspareunia in female Endometriosis Folliculitis Hematuria Miscarriage ([facility]) PID (acute pelvic inflammatory disease) Trichomoniasis 2012 HISTORY PAST MEDICAL HISTORY SOCIAL HISTORY Past Medical History: Diagnosis Date Anxiety Asthma (HCC) Dysmenorrhea Dyspareunia in female Endometriosis Folliculitis Hematuria Miscarriage ([facility]) PID (acute pelvic inflammatory disease) Trichomoniasis 2012 [...] Hector Steve NP documented in this encounter [facility] 04-26-2025 History of Presen t illness Narrative Reason [...] Anovulation 07/19/2024 confirmed by positive blood test ([facility]) 09/09/2024 20 weeks gestation of ([facility]) 12/28/2024 Second trimester ([facility]) 12/28/2024 Resolved Ambulatory Problems Diagnosis Date Noted No Resolved Ambulatory Problems Past Medical History: Diagnosis Date Anxiety Asthma ([facility]) Dyspareunia in female Endometriosis Folliculitis Hematuria Miscarriage ([facility]) PID (acute pelvic inflammatory disease) Trichomoniasis 2012 HISTORY PAST MEDICAL HISTORY SOCIAL HISTORY Past Medical History: Diagnosis Date Anxiety Asthma ([facility]) Dysmenorrhea Dyspareunia in female Endometriosis Folliculitis Hematuria Miscarriage ([facility]) PID (acute pelvic inflammatory disease) Trichomoniasis 2012 [...] nursing note reviewed. Exam conducted with a merchandise flow team leader present. Vitals: Estimated body mass index is 30.03 kg/m as calculated from the following: Height as of 03/09/24: 5' 3 . Weight as of this encounter: 169 lb 8 oz. BP: 110/66 Patient's last menstrual period was 08/05/2024. ASSESSMENT & PLAN ICD-10-CM 1. Third trimester ([facility]) Z34.93 POCT urinalysis dipstick manually resulted 2. 37 weeks gestation of ([facility]) Z3A.37 Return OB: Patient presents today for [...] has decreased movement- pt being sent to [facility] for NST/BPP Orders Placed This Encounter Procedures POCT urinalysis dipstick manually resulted Follow Up: Patient is to return to office in 6 week for Documented by Christine Roth LPN on behalf of: Dominic Hester DO documented in this encounter [facility] 04-19-2025 History of Presen t illness Narrative Reason [...] positive blood test ([facility]) 09/09/2024 20 weeks gestation of ([facility]) 12/28/2024 Second trimester ([facility]) 12/28/2024 Resolved Ambulatory Problems Diagnosis Date Noted No Resolved Ambulatory Problems Past Medical History: Diagnosis Date Anxiety Asthma ([facility]) Dyspareunia in female Endometriosis Folliculitis Hematuria Miscarriage ([facility]) PID (acute pelvic inflammatory disease) Trichomoniasis 2012 HISTORY PAST MEDICAL HISTORY SOCIAL HISTORY Past Medical History: Diagnosis Date Anxiety Asthma ([facility]) Dysmenorrhea Dyspareunia in female Endometriosis Folliculitis Hematuria Miscarriage ([facility]) PID (acute pelvic inflammatory disease) Trichomoniasis 2012 [...] nursing note reviewed. Exam conducted with a merchandise flow team leader present. Vitals: Estimated body mass index is 29.54 kg/m as calculated from the following: Height as of 24: 5' 3 . Weight as of this encounter: 166 lb 12 oz. BP: 102/58 Patient's last menstrual period was 08/05/2024. ASSESSMENT & PLAN ICD-10-CM 1. Third trimester ([facility]) Z34.93 CULTURE, GROUP B STREP WITH SUSCEPTIBLITY [...] behalf of:gerald jackson documented in this encounter [facility] 04-06-2025 History of Presen t illness Narrative Reason [...] Anovulation 07/19/2024 confirmed by positive blood test ([facility]) 09/09/2024 20 weeks gestation of ([facility]) 12/28/2024 Second trimester ([facility]) 12/28/2024 Resolved Ambulatory Problems Diagnosis Date Noted No Resolved Ambulatory Problems Past Medical History: Diagnosis Date Anxiety Asthma ([facility]) Dyspareunia in female Endometriosis Folliculitis Hematuria Miscarriage ([facility]) PID (acute pelvic inflammatory disease) Trichomoniasis 2012 HISTORY PAST MEDICAL HISTORY SOCIAL HISTORY Past Medical History: Diagnosis Date Anxiety Asthma ([facility]) Dysmenorrhea Dyspareunia in female Endometriosis Folliculitis Hematuria Miscarriage ([facility]) PID (acute pelvic inflammatory disease) [...] PLAN ICD-10-CM 1. size inconsistent with dates ([facility]) O26.849 US OB follow up transabdominal approach 2. 34 weeks gestation of ([facility]) Z3A.34 3. Third trimester ([facility]) Z34.93 POCT urinalysis dipstick manually resulted [...] of: FANG Jackson documented in this encounter [facility] 03-23-2025 History of Presen t illness Narrative Reason [...] positive blood test ([facility]) 09/09/2024 20 weeks gestation of ([facility]) 12/28/2024 Second trimester ([facility]) 12/28/2024 Resolved Ambulatory Problems Diagnosis Date Noted No Resolved Ambulatory Problems Past Medical History: Diagnosis Date Anxiety Asthma ([facility]) Dyspareunia in female Endometriosis Folliculitis Hematuria Miscarriage ([facility]) PID (acute pelvic inflammatory disease) Trichomoniasis 2012 HISTORY PAST MEDICAL HISTORY SOCIAL HISTORY Past Medical History: Diagnosis Date Anxiety Asthma ([facility]) Dysmenorrhea Dyspareunia in female Endometriosis Folliculitis Hematuria Miscarriage ([facility]) PID (acute pelvic inflammatory disease) Trichomoniasis 2012 [...] nursing note reviewed. Exam conducted with a merchandise flow team leader present. Vitals: Estimated body mass index is 28.7 kg/m as calculated from the following: Height as of 24: 5' 3 . Weight as of this encounter: 162 lb. BP: 112/68 Patient's last menstrual period was 08/05/2024. ASSESSMENT & PLAN ICD-10-CM 1. Third trimester ([facility]) Z34.93 POCT urinalysis dipstick manually resulted 2. 32 weeks gestation of ([facility]) Z3A.32 Return OB: Patient presents today [...] Dominic Hester DO documented in this encounter [facility] 03-09-2025 History of Presen t illness Narrative Reason [...] of: FANG Jackson documented in this encounter [facility] 02-23-2025 History of Presen t illness Narrative Reason [...] (Respiratory issues) Mother Patricia case Asthma Mother Particia case Bipolar disorder Father Melanoma Father Bipolar [...] nursing note reviewed. Exam conducted with a merchandise flow team leader present. Vitals: Estimated body mass index is [...] Dominic Hester DO documented in this encounter [facility] 01-31-2025 History of Presen t illness Narrative Reason [...] nursing note reviewed. Exam conducted with a merchandise flow team leader present. Vitals: Estimated body mass index is [...] Hector Steve NP documented in this encounter [facility] 12-28-2024 History of Presen t illness Narrative Reason [...] nursing note reviewed. Exam conducted with a merchandise flow team leader present. Vitals: Estimated body mass index is [...] Dominic Hester DO documented in this encounter [facility] 11-30-2024 History of Presen t illness Narrative Reason [...] nursing note reviewed. Exam conducted with a merchandise flow team leader present. Vitals: Estimated body mass index is [...] obtained without difficulty and patient was given [facility] order to have obtained. Orders Placed [...] of: FANG Jackson documented in this encounter [facility] 11-02-2024 History of Presen t illness Narrative [...] Dominic Hester DO documented in this encounter [facility] 10-26-2024 Radiology Diagnostic study note [facility] [address] [place] [address] Ultrasound Report Signed Patient: Breana Casas MR#: [id number] : 1990 Acct:[id number] Age/Sex: 33 / F ADM Date: 5 Loc: ER Room: Type: [facility] ER Attending Dr: Ordering Provider: Ale [...] Tanner Burleson M.D.10/26/2024 11:46 AM Dictation Location: [facility]--23 Tech: Karmen Lobo Transcribed By: SHANE 10/26/24 1146 Dictated By: Tanner Burleson DO 10/26/24 1139 Signed By: 10/26/24 1146 [facility] 10-26-2024 Hospital Discharg e instructions Additional Instructions Rest. Push fluids. Take [id number]-[id number] Tylenol as needed for any pain or discomfort. Follow-up with Dr. Hester with ASSISTANT SPEECH LANGUAGE PATHOLOGIST in the next 2 to 3 days. Follow-up with primary care provider in the next 2 to 5 days. Return here if symptoms persist or worsen. [facility] Work Phone: 10-01-2024 History of Presen t [...] undercooked meat, and stay away from [facility]. Patient has also been advised to [...] Archana Parham LPN documented in this encounter [facility] 07-19-2024 History of Presen t illness Narrative [...] nursing note reviewed. Exam conducted with a merchandise flow team leader present. Vitals: Estimated body mass index is [...] Dominic Hester DO documented in this encounter [facility] 06-29-2024 History of Presen t illness Narrative [...] nursing note reviewed. Exam conducted with a merchandise flow team leader present. Vitals: Estimated body mass index is [...] Dominic Hester DO documented in this encounter [facility] 04-07-2023 Evaluation note Encounter Date Diagnosis [...] right ear, unspecified type (ICD-10 - H60.501) [employer] Other 04-14-2023 NoteOPERATIVE NOTE OPERATION DATE: 01/17/2023 [...] products of conception were removed using an 8-Welsh suction curette. Excellent hemostasis was noted. The patient tolerated the procedure well. Sponge, lap, and needle counts were correct x 2. All instruments were then removed from the patient's vagina. The patient was taken to the Recovery Room in stable condition. ??[facility] [id number] NoteOPERATIVE NOTE OPERATION DATE: 07/29/2022 PROCEDURE: Diagnostic laparoscopy. PREOPERATIVE DIAGNOSIS: Pelvic pain, dyspareunia, dysmenorrhea. POSTOPERATIVE DIAGNOSIS: Pelvic pain, dyspareunia, dysmenorrhea including significant endometriosis of the posterior cul-de-sac, as well as significant adhesions of the uterus to the anterior abdominal wall all the way to the fundal region. ANESTHESIA: General. SURGEON: Dominic Hester D.O. GOLDSMITH APPRENTICE: ADAN Flores URINE OUTPUT: Yellow and clear. [...] Recovery Room in stable condition.[facility] [id number] Note Microbiology PROCEDURE: Cervical Culture [R1] SOURCE: [...] Locations R1: This test was performed at: [facility], [address] [place] [address], [address] , , FbyffhSalem Regional Medical CenterComment on above:Performed By: #### [id number] ####[facility] [id number] [place], [place] [phone] NoteCall received from /s, bladder not full. Conway catheter education provided to patient, agrees to insertion at this time.[facility] CenterEvaluation noteNo assessment information availableC[facility] Work Phone: Evaluation note* Diagnosis Female infertility [...] of ([facility]) [facility] Diagnosis Postoperative visit S/P section Other postprocedural status Vaginal bleeding Other specified noninflammatory disorder of vagina Other constipation documented in this encounter [facility] HealthcareEvaluation note* Diagnosis 6 weeks follow-up ([facility]) Abnormal uterine bleeding (AUB) Dysfunctional uterine bleeding Other disorder of menstruation and other abnormal bleeding from female genital tract Generalized abdominal pain Abdominal pain, generalized Nausea Nausea alone documented in this encounter [facility] HealthcareHospital Discharge instructions Additional Instructions Keep that area clean and dry Avoid putting any adhesives to area affected Take antibiotic as instructed until gone Clean with 9 deodorized soap Follow with your surgeon on Friday Return here if any problems persist or worsen including fever, chills or any other concernsFirChildren's Hospital for Rehabilitation Work Phone: Hospital Discharge instructions Additional Instructions It is important you follow-up with your ASSISTANT SPEECH LANGUAGE PATHOLOGIST call for appointment. Please return here if you develop any fevers, chills, shortness of breath, numbness, tingling, unilateral weakness or any other concernsCleveland Clinic Work Phone: Summary Purpose Family History No [...] and content) DATE CREATED AUTHOR 04/20/2021 [facility] DATE CREATED AUTHOR AUTHOR'S ORGANIZ ATION 01/23/2023 [facility] DATE CREATED AUTHOR AUTHOR'S ORGANIZ ATION 02/12/2025 [facility] DATE CREATED AUTHOR AUTHOR'S ORGANIZ ATION 05/14/2025 [facility] dical Specialists EPIC Care Teams (unrecognized sec tion and content) Team Status: Inactive Member Role Status Dates Naomy Radha , CHIEF LEGAL OFFICER-C Primary Care Provider Active Dominic Hester Attending Provider Active Team Status: Active Member Role Status Dates Naomy Radha , CHIEF LEGAL OFFICER-C Primary Care Provider Active Team Status: Inactive Member Role Status Dates Naomy Radha , CHIEF LEGAL OFFICER-C Primary Care Provider Active Monika Camarillo , OFFICE PROFESSIONALS Emergency Provider Active Team Status: Inactive Member Role Status Dates Naomy Radha , CHIEF LEGAL OFFICER-C Primary Care Provider Active Sylvia Romero PA-C Attending Provider Active Team Status: Inactive Member Role Status Dates Naomy Radha , CHIEF LEGAL OFFICER-C Primary Care Provider Active S tart: February 09, 2024 End: February 09, 2024 Dominic Hester Attending Provider Active Start: Stephanie solomon 2023 End: February 09, 2024 Team Status: Active Member Role Status Dates PHYSICIAN NO FAMILY Primary Care Provider Active Team Status: Inactive Member Role Status Dates Naomy Radha , CHIEF LEGAL OFFICER-C Primary Care Provider Active S tart: February [...] June 17, 2024 End: June 17, 2024 Bulkhead Carpenter Relationship Specialty Start Date End Date Sylvia Romero [place] [facility] [place] [address] PCP - [facility] 07/06/24 Bulkhead Carpenter Relationship Specialty Start Date End Date Sylvia Romero [place] [facility] [place] [address] PCP - [facility] 07/06/24 Bulkhead Carpenter Relationship Specialty Start Date End Date Sylvia Romero PA [address] [place] [address] [place] [address] PCP - [facility] 07/06/24 Team Status: Inactive Member Role Status Dates PHYSICIAN NO FAMILY Primary Care Provider Active Start: October 26, 2024 End: October 26, 2024 Ale Fragoso , OFFICE PROFESSIONALS Emergency Provider Active S tart: October 26, 2024 End: October 26, 2024 Bulkhead Carpenter Relationship Specialty Start Date End Date Sylvia Romero PA [address] [place] [address] [place] [address] PCP - [facility] 07/06/24 Bulkhead Carpenter Relationship Specialty Start Date End Date Sylvia Romero PA [address] [place] [address] [place] [address] PCP - [facility] 07/06/24 Bulkhead Carpenter Relationship Specialty Start Date End Date Sylvia Romero PA [address] [place] [address] [place] [address] PCP - [facility] 07/06/24 Bulkhead Carpenter Relationship Specialty Start Date End Date Sylvia Romero PA [address] [place] [address] [place] [address] PCP - [facility] 07/06/24 Bulkhead Carpenter Relationship Specialty Start Date End Date Sylvia Romero PA [address] [place] [address] [place] [address] PCP - [facility] 07/06/24 Bulkhead Carpenter Relationship Specialty Start Date End Date Sylvia Romero PA [address] [place] [address] [place] [address] PCP - [facility] 07/06/24 Team Status: Inactive Member Role Status Dates PHYSICIAN NO FAMILY Primary Care Provider Active Start: February 10, 2025 End: February 10, 2025 Malcolm Gaston , Emergency Provider Active St art: February 10, 2025 End: February 10, 2025 Bulkhead Carpenter Relationship Specialty Start Date End Date Sylvia Romero PA [address] [place] [address] PCP - [facility] 07/06/24 Bulkhead Carpenter Relationship Specialty Start Date End Date Sylvia Romero PA [address] [place], [facility] PCP - [facility] 07/06/24 Bulkhead Carpenter Relationship Specialty Start Date End Date Sylvia Romero PA [address] [place], [facility] PCP - [facility] 07/06/24 Bulkhead Carpenter Relationship Specialty Start Date End Date Sylvia Romero PA [address] [place], [facility] PCP - [facility] 07/06/24 Bulkhead Carpenter Relationship Specialty Start Date End Date Sylvia Romero PA [address] [place], [facility] PCP - [facility] 07/06/24 Bulkhead Carpenter Relationship Specialty Start Date End Date Sylvia Romero PA [address] [place] [address] PCP - [facility] 07/06/24 Bulkhead Carpenter Relationship Specialty Start Date End Date Sylvia Romero PA [address] [place], [place] [id number] PCP - [facility] 07/06/24 Bulkhead Carpenter Relationship Specialty Start Date End Date Sylvia Romero PA [address] [place] [address] PCP - [facility] 07/06/24 Bulkhead Carpenter Relationship Specialty Start Date End Date Sylvia Romero PA [address] [place] [address] PCP - [facility] 07/06/24 Bulkhead Carpenter Relationship Specialty Start Date End Date Sylvia Romero PA [address] [place] [address] PCP - [facility] 07/06/24 Goals (unrecognized section and content) [...] visit. Pt had a c/s on 04/27/2025. Reason Comments excessive bleeding Reason Comments Care FOR RECORDS PERTAINING TO PATIENTS WHO ARE [...] BE BASED ON THE PRIMARY CLINICAL RECORDS. [facility] Customer [facility]. provides no warranty or guarantee of the accuracy or completeness of information in this document.
== END 2025-06-08 13:50 | disposition home or self-care (01) ==
LOC: LAB 13:50
PROVIDERS: Visit Provider Physician Assistant
DX: N93.9 Abnormal uterine and vaginal bleeding, unspecified (principal)
CPT/HCPCS: 36415; 85025

== ENCOUNTER 2025-06-24 14:35 | Emergency (ER) | payer OTHER, SELFPAY ==
--- OUTSIDE RECORDS SUMMARY | 2024-10-01 09:03 | XMS_ITS | Continuity of Care Document ---
Author Organization [facility] Address [address] [place] [address] Phone Care Team Providers Care Grease And Tallow Pumper Name Role Phone Jagdeep CHAVIRA, Emilee Unavailable Unavailable Allergies, Adverse Reactions, Alerts Substance Reaction Status Criticality No Known Allergies Active No Inform ation Procedures Procedure Date URINE TEST URINALYSIS NONAUTO W/O SCOPE RAPID STI Chalm/Gonorr/Trich OFFICE/OUTPATIENT VISIT, EST OFFICE/OUTPATIENT VISIT, NEW Bp scrn perf rec interval DIAST BP < 80 MM HG SYST BP < 130 MM HG MED LIST DOCD IN [facility] RVW MEDS BY RX/DR IN [facility] Pt inelig neg scrn depres RAPID STI Chalm/Gonorr/Trich Advance Directives Directive Yes / No Effective Date File Name No Information Encounters Encounter Description Practice Location Reason(s) For Visit Diagnoses Date Provider Providers Copied on Encounter [facility], [address] [place] [address], [id number], [place] tel:[phone] [facility] Screening for cervical cancerScreening for cervical cancer 4 Jagdeep Hebert. [address] [place] [address], [id number] , [place]. tel:[phone] OFFICE/OUTPAT IENT VISIT, EST [facility], [address] [place] [address], [id number], [place] tel:[phone] ECJFS vaginal discharge/ itching (chief complaint) Encounter for screening for infections with a predominantly sexual mode of transmissionOther problems related to lifestyleVaginal discharge 4 Jagdeep Hebert. [address] [place], [place], [id number] , [place]. tel:[phone] OFFICE/OUTPAT IENT VISIT, [facility], [address] [place], [place], [id number], [place] tel:[phone] ECJFS possible exposure (chief complaint) Body mass index [BMI] 21.0-21.9, adultEncounter for screening for infections with a predominantly sexual mode of transmissionOther problems related to lifestyleBody mass index [BMI] 22.0-22.9, adult 3 Jagdeep Hebert. [address] [place] [address], [id number] , [place]. tel:[phone] Family History Family Member Type Diagnosis Age At Onset No Information Payers Payer name Insurance type Covered republican ID Authoriza tion(s) UHC Medicaid CFC 0223 [id number] Medicaid Wrap - [facility] [place] [id number] Social History Type Description Quantity Date Captured Comments Alcohol Use Details Unknown Caffeine Use Details Unknown Tobacco Use Status No Information Smoking Status No Information Sex Female Sexual Orientation Straight or heterosexual Aug Gender Identity Female Chief Complaint And Reason For Visit No Information Reason For Referral Reason For Referral No Information Plan Of Treatment Date Type Action Status Goal Tdap. Due on due Goal Unhealthy drug use screening . Due on due Goal RLP. Due on due Goal PRAPARE ASSESSMENT. Due on due Goal Tdap Vaccine. Due on 2023 due Goal Depression screening. Due on due Goal HPV. Due on due Goal Influenza vaccine. Due on due Goal Hepatitis C screening. Due o n due Goal Hepatitis C screening. Due o n due Goal Tdap. Due on due Goal RLP. Due on due Goal HPV. Due on due Goal Unhealthy drug use screening . Due on due Goal Tdap Vaccine. Due on 2023 due Goal Influenza vaccine. Due on due Goal Depression screening. Due on due Goal PRAPARE ASSESSMENT. Due on due Goal Depression screening. Due on due Goal Tdap Vaccine. Due on 2022 due Goal HPV. Due on due Goal PRAPARE ASSESSMENT. Due on due Goal Hep A. 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 She does not have a primary [facility]. Discuss establishing care here and pt agreeable. [...]
[2025-06-24] VITALS (18 sets, daily range): BP systolic 99–126; BP diastolic 54–70; PULSE 37–46; TEMP 36.7; O2SAT 94–100; BMI 24.8
--- OUTSIDE RECORDS SUMMARY | 2025-06-24 14:43 | XMS_ITS | Encounter Summary ---
Author Organization [facility] Address [address] [place] [address] Care Team Providers Care Staffing Director Name Role Phone HeatherSylvia Unavailable Encounter Details Date Type Department Care Team (Late st Contact Info) Description 10/26/2024 Abstract [facility] [address] [place] [phone] Dominic Hester, [address] [facility] [address] Abhijeet Nelson, [id number] Social History Tobacco Use Types Packs/Day Years [...] have received? High school graduate 04/13/2023 Comments Yes Sex and Gender Information Value Date Recorded Sex Assigned at Not on file Legal Sex Female 6:35 PM EDT Gender Identity Not on file Sexual Orientation Not on file documented as of this encounter Plan of Treatment Not on file documented as of this encounter Visit Diagnoses Not on filedocumented in this encounter Care Teams Staffing Director Relationship Specialty Start Date End Date Sylvia Romero PA [address] [place] [address] P[address] - [facility] 07/06/24 documented as of this encounter
--- OUTSIDE RECORDS SUMMARY | 2025-06-24 14:43 | XMS_ITS | Encounter Summary ---
Author Organization [facility] Address [address] [place] [address] Care Team Providers Care Roll Tube Setter Name Role Phone HeatherSylvia Unavailable Encounter Details Date Type Department Care Team (Late st Contact Info) Description 10/26/2024 Abstract [facility] [address] [place] [phone] Dominic Hester, [address] [facility] [address] Abhijeet [place], [facility] Social History Tobacco Use Types Packs/Day [...] on filedocumented in this encounter Care Teams Roll Tube Setter Relationship Specialty Start Date End Date Sylvia Romero PA [address] [facility] [place] [address] PCP - [facility] 07/06/24 documented as of this encounter
--- OUTSIDE RECORDS SUMMARY | 2025-06-24 14:43 | XMS_ITS | Encounter Summary ---
Author Organization [facility] Address [address] [place] [address] Care Team Providers Care Building Contractor Name Role Phone Sylvia Romero Unavailable Sylvia Romero Unavailable Encounter Details Date Type Department Care Team (Late st Contact Info) Description 02/20/2024 Clinisync Result Encounter [facility] Department Unsolicited Adonis Hester, DO [address] [place] [address] Social History Tobacco Use Types [...] on file documented as of this encounter Procedures Procedure Name Priority Date/Time Associated Diagnosis Comments XR CHEST 2V 02/20/2024 4:06 PM EDT documented in this encounter Results * XR CHEST 2V (02/20/2024 4:06 PM EDT) Anatomical Region Laterality Modality Other 02/20/2024 4:06 PM EDT Narrative 02/20/2024 4:09 PM EDT [address] [address] XRay Report Signed Patient: BREANA JOHN MR#: [id number] : 1990 Acct:[id number] Age/Sex: 33 / F ADM Date: 02/20/24 Loc: [facility] Attending Dr: Adonis Hester D.O. Ordering Physician: Adonis Hester D.O. Date of Service: 02/20/24 Procedure(s): XR chest 2V Accession Number(s): [id number] cc: Adonis Hester D.O.; Physician,Non-Staff [place] [id number] Patient Name: BREANA JOHN MRN: [id number] date: 1990 Sex: F Assigned Patient [facility]: [facility] Current Patient Location: [facility] Accession/Order Number: [id number] Exam Date: 02/20/2024 13:05 Report Date: 02/20/2024 [...] Dictated By: Nahid Huitron M.D. Signed By: 02/20/24 1609 DD/ 1606 TD/TT: Horticultural Specialty Grower Inside: Procedure Note Radiology, Radiologist, MD - 02/20/[address] [address] XRay Report Signed Patient: BREANA JOHN NMR#: [id number] : 1990Acct:[id number] Age/Sex: 33 / FADM Date: 02/20/24 Loc: PST Attending Dr: Adonis Hester D.O. Ordering Physician: Adonis Hester D.O. Date of Service: 02/20/24 Procedure(s): XR chest 2V Accession Number(s): [id number] cc: Adonis Hester D.O.; Physician,Non-Staff [place] The [address] [address] Patient Name: BREANA JOHN MRN: [id number] date: 1990 Sex: F Assigned Patient Location: SURGOUT Current Patient Location: [facility] Accession/Order Number: [id number] Exam Date: 02/20/2024 13:05 Report Date: 02/20/2024 [...] 16:06 Dictated By: Nahid Huitron M.D. Signed By:02/20/24 1609 DD/ 1606 TD/TT: Horticultural Specialty Grower Inside: Adonis Hester DO [facility] Final Result documented in this encounter Visit Diagnoses Not on filedocumented in this encounter Care Teams Building Contractor Relationship Specialty Start Date End Date Sylvia Romero PA [address] [place] [address] [place] [address] PCP - [facility] 01/05/24 4 Sylvia Romero PA [address] [place] [address] Dr [place], [place] [address] PCP - [facility] 07/06/24 documented as of this encounter
--- OUTSIDE RECORDS SUMMARY | 2025-06-24 14:43 | XMS_ITS | Encounter Summary ---
Author Organization [facility] Address [address] [place] [address] Care Team Providers Care Neon Sign Maker Name Role Phone HeatherSylvia Unavailable Encounter Details Date Type Department Care Team (Late st Contact Info) Description 04/27/2025 Abstract [facility] [address] [place] [phone] Dominic Hester, [address] [facility] [address] Abhijeet Nelson, [facility] Social History Tobacco Use Types Packs/Day [...] on filedocumented in this encounter Care Teams Neon Sign Maker Relationship Specialty Start Date End Date Sylvia Romero PA [address] [place] [address] [place] [address] PCP - [facility] BIOMASS POWER PLANT MANAGER 07/06/24 documented as of this encounter
--- OUTSIDE RECORDS SUMMARY | 2025-06-24 14:43 | XMS_ITS ---
Author Organization [facility] Address [address] [place] [address] Care Team Providers Care Cobol Developer Name Role Phone Sylvia Romero Unavailable [facility] Status:Enrolled (Active) Start date:02/24/2025 Enrollment date:03/01/2025 Enrollment reason:Identified by Health Plan Case Team Name Relationship Phone Sylvia Villa LPN(Responsible Staff) Licensed [facility] Nurse [phone] Continued Care and Services Coordination
--- OUTSIDE RECORDS SUMMARY | 2025-06-24 14:43 | XMS_ITS | Encounter Summary ---
Author Organization [facility] Address [address] [place] [address] Care Team Providers Care Agriculture Laborer Name Role Phone Sylvia Romero Unavailable Sylvia Romero Unavailable Encounter Details Date Type Department Care Team (Late st Contact Info) Description 05/14/2023 Abstract [facility] ESPINOZA [address] [facility] [place] [address] Sylvia Romero PA [address] [facility] [address] [place], [place] [id number] Social History Tobacco Use Types Packs/Day Years [...] on filedocumented in this encounter Care Teams Agriculture Laborer Relationship Specialty Start Date End Date Sylvia Romero PA [address] [facility] [place] [address] PCP - [facility] FELT CHECKER 01/05/24 4 Sylvia Romero PA [address] [facility] [place] [address] PCP - [facility] FELT CHECKER 07/06/24 documented as of this encounter
--- OUTSIDE RECORDS SUMMARY | 2025-06-24 14:43 | XMS_ITS | Encounter Summary ---
Author Organization [facility] Address [address] [place] [address] Care Team Providers Care Tape Controlled Machine Stitcher Name Role Phone HeatherSylvia Unavailable Encounter Details Date Type Department Care Team (Late st Contact Info) Description 09/17/2024 Abstract ANTOINETTE Nelson OBJÚNIOR [address] [facility] [place] [phone] Dominic Hester, [address] [facility] [address] Abhijeet [place], [facility] Social History Tobacco Use Types [...] on filedocumented in this encounter Care Teams Tape Controlled Machine Stitcher Relationship Specialty Start Date End Date Sylvia Romero PA [address] [facility] [place] [address] PCP - [facility] 07/06/24 documented as of this encounter
--- OUTSIDE RECORDS SUMMARY | 2025-06-24 14:43 | XMS_ITS | Encounter Summary ---
Author Organization [facility] Address [address] [place] [address] Care Team Providers Care Bale Opener Name Role Phone HeatherSylvia Unavailable Encounter Details Date Type Department Care Team (Late st Contact Info) Description 02/21/2025 Results Follow-Up ANTOINETTE Nelson OBGYMaribell [address] [facility] [place] [address] Zainab Mcwilliams LPN [address] [place] [address] ALL CBC WITH AUTO DIFF, GLUCOSE 1 HOUR Social History Tobacco Use Types Packs/Day Years [...] documented in this encounter Plan of Treatment Not on file documented as of this encounter Visit Diagnoses Not on filedocumented in this encounter Care Teams Bale Opener Relationship Specialty Start Date End Date Sylvia Romero PA [address] [place] [address] [place] [address] PCP - [facility] 07/06/24 documented as of this encounter
--- OUTSIDE RECORDS SUMMARY | 2025-06-24 14:43 | XMS_ITS | Encounter Summary ---
Author Organization [facility] Address [address] [place] [address] Care Team Providers Care Manager Configuration Name Role Phone HeatherSylvia Unavailable Encounter Details Date Type Department Care Team (Late st Contact Info) Description 10/01/2024 Abstract NOMAnum Nelson OBJÚNIOR [address] [facility] [place] [phone] Dominic Hester, [address] [facility] [address] Abhijeet [place], [id number] Social History Tobacco Use Types Packs/Day [...] filedocumented in this encounter Care Teams Manager Configuration Relationship Specialty Start Date End Date Sylvia Romero PA [address] [facility] [place] [address] PCP - [facility] 07/06/24 documented as of this encounter
--- OUTSIDE RECORDS SUMMARY | 2025-06-24 14:43 | XMS_ITS | Encounter Summary ---
Author Organization [facility] Address [address] [place] [address] Care Team Providers Care Yarn Twister Name Role Phone Sylvia Romero FANG Unavailable Encounter Details Date Type Department Care Team (Late st Contact Info) Description 05/06/2025 Abstract ANTOINETTE Nelson OBJÚNIOR [address] [facility] [place] [address] Amaya Steve, MANAGER UNIT [address] [facility] [place] [address] Social History Tobacco Use Types Packs/Day Years [...] Date Recorded Patient Health Questionnaire-2 Score 0 05/03/2025 Education Answer Date Recorded What is the [...] on filedocumented in this encounter Care Teams Yarn Twister Relationship Specialty Start Date End Date Sylvia Romero PA [address] [facility] [place] [address] PCP - [facility] INDUSTRIAL DIAMOND POLISHER 07/06/24 documented as of this encounter
--- OUTSIDE RECORDS SUMMARY | 2025-06-24 14:43 | XMS_ITS | Clinical Summary ---
Author Organization [facility] Healthcare Address [address] [place] [address] Care Team Providers Care Transaction Manager Name Role Phone HeatherSylvia Unavailable Allergies No known active allergies Medications ondansetron ODT (Zofran-ODT) 4 MG disintegrating tabletIndications: confirmed by positive blood test ([facility]),Nausea Take 1 tablet (4 mg) by mouth every 6 (six) hours if needed for nausea or vomiting for up to 30 doses 30 tablet 2 4 Active Vit-Fe Fumarate-FA ( Vitamins) 28-0.8 MG tabletIndications: confirmed by positive blood test ([facility]) Take 1 tablet by mouth Daily 30 tablet 11 4 09/09/20 25 Active citalopram (CeleXA) 20 MG tabletIndications: Mood changes Take 1 tablet (20 mg) by mouth Daily 30 tablet 11 5 04/19/20 26 Active ibuprofen 800 MG tablet Take 800 mg by mouth in the morning and 800 mg in the evening and 800 mg before bedtime. 5 Active ondansetron ODT (Zofran-ODT) 4 MG disintegrating tabletIndications: Nausea Take 1 tablet (4 mg) by mouth every 6 (six) hours if needed for nausea or vomiting 30 tablet 2 5 07/08/20 25 Active norethindrone (Micronor) 0.35 MG tabletIndications: 6 weeks follow-up ([facility]) Take 1 tablet (0.35 mg) by mouth Daily for 28 days Take 1 tablet by mouth daily 28 tablet 11 5 07/06/20 25 Active cephalexin (Keflex) 500 MG capsuleIndications :Abnormal uterine bleeding (AUB) Take 1 capsule (500 mg) by mouth in the morning and 1 capsule (500 mg) in the evening and 1 capsule (500 mg) before bedtime. Do all this for 7 days. 21 capsule 5 06/15/20 25 Zuranolone (Zurzuvae) 25 MG capsuleIndications :6 weeks follow-up ([facility]),Post depression Take 50 mg by mouth Daily for 14 doses 28 capsule 5 06/23/20 25 Active Problems Problem Noted Date Diagnosed Date confirmed by positive blood test ([facility]) 09/09/2024 Anovulation 07/19/2024 Dysmenorrhea 03/11/2023 Menorrhagia with irregular cycle 03/11/2023 Missed menses 03/11/2023 Nausea and vomiting 03/11/2023 Pain in female genitalia on intercourse 03/11/20 Pain in pelvis 03/11/2023 Scar of skin 03/11/2023 Resolved Problems Problem Noted Date Diagnosed Date Resolved Date 20 weeks gestation of ([facility]) 12/28/2024 04/27/2025 Second trimester ([facility]) 12/28/2024 04/27/2025 Encounters Date Type Department Care Team Description 06/22/2025 Patient Outreach [facility] [place] [address] [place] [id number] Sylvia Villa LPN 06/08/2025 1:00 PM EDT Visit [facility] [address] [place] [address] [place] [address] Sylvia Romero PA 6 weeks follow-up ([facility]); Abnormal uterine bleeding (AUB); Dysfunctional uterine bleeding; Generalized abdominal pain; Nausea; Post depression 06/08/2025 Clinisync Result Encounter [facility] External Department Unsolicited Sylvia Romero PA 05/20/2025 Patient Outreach [facility] [place] [address] [place] [address] Sylvia Villa LPN 05/11/2025 1:50 PM EDT Visit [facility] [address] [place] [address] Sylvia Romero PA Postoperative visit; S/P section; Vaginal bleeding; Other constipation 05/09/2025 Telephone [facility] [address] [place] [place] [address] Adriana Hartmna MA 05/06/2025 Abstract [facility] [address] [place] [place] [address] Amaya Steve NP 05/04/2025 1:30 PM EDT Office Visit [facility] [address] [place] [address] Amaya Steve NP Postoperative visit; S/P section; Sinusitis, unspecified chronicity, unspecified location; Urinary tract infection without hematuria, site unspecified 05/04/2025 External Result Encounter [facility] External Department Unsolicited Amaya Steve, CAIT 05/04/2025 Bamboo flowsheet [facility] [address] [place] [address] Amaya Steve NP 05/03/2025 Patient Outreach [facility] [place] [address] [place] [address] Sylvia Villa LPN 04/28/2025 Clinisync Result Encounter [facility] External Department Unsolicited Adonis Hester, DO 04/27/2025 Abstract [facility] [address] [place] [address] Adonis Hester, DO 04/27/2025 Abstract [facility] [address] [facility] [place] [address] Adonis Hester, DO 04/27/2025 Clinisync Result Encounter NOMS External Department Unsolicited Adonis Hester, DO 04/26/2025 11:30 AM EDT Routine [facility] [address] [facility] [place] [address] Adonis Hester, DO Third trimester ([facility]); 37 weeks gestation of ([facility]) 04/26/2025 Clinisync Result Encounter NOMS External Department Unsolicited Adonis Hester, DO 04/26/2025 Bamboo flowsheet [facility] [place] [address] Adonis Hester, DO 04/21/2025 Patient Outreach [facility] [address] [place] [address] Sylvia Villa LPN 04/21/2025 Clinisync Result Encounter [facility]S External Department Unsolicited Sylvia Romero PA 04/19/2025 2:20 PM EDT Routine [facility] [place] [address] Adonis Hester, DO Third trimester ([facility]); Mood changes 04/19/2025 Bamboo flowsheet [facility] [address] Adonis Hester, DO 04/19/2025 Travel 04/13/2025 Clinisync Result Encounter NOMS External Department Unsolicited Sylvia Romero PA 04/06/2025 2:50 PM EDT Routine [facility] [address] Sylvia Romero PA size inconsistent with dates ([facility]); 34 weeks gestation of ([facility]); Third trimester ([facility]); Excessive growth affecting management of in third trimester, single or unspecified fetus ([facility]) 04/06/2025 Clinisync Result Encounter NOMS External Department Unsolicited Adonis Hester DO 04/05/2025 Travel 03/24/2025 Patient Outreach [facility] [place] [address] [place] [address] Sylvia Villa LPN from Last 3 Months Family History Medical [...] Sign Reading Time Taken Comments Blood Pressure 110/72 06/08/2025 1:18 PM EDT Pulse - - Temperature - - Respiratory Rate - - Oxygen Saturation - - Inhaled Oxygen Concentration - - Weight 64.8 kg (142 lb 12.8 oz) 06/08/2025 1:18 PM EDT Height 160 cm (5' 3 ) 03/09/2024 2:55 PM EDT Body Mass Index 25.3 03/09/2024 2:55 PM EDT Plan of Treatment Health Maintenance Due Date Last Done Comments Influenza Vaccine (#1) 2025 Cervical Cancer Screening 11/30/2025 HPV/Cotest 11/30/2025 05/30/2023, 11/14/2020 Pap Smear 11/30/2025 11/30/2024, 05/30/2023, 0206/2021 Procedures Procedure Name Priority Date/Time Associated Diagnosis Comments URINARY TRACT INFECTION (HTRX) Routine 06/08/2025 4:34 PM EDT ALL CBC WITH AUTO DIFF Routine 06/08/2025 2:00 PM EDT POCT URINALYSIS DIPSTICK Routine 06/08/2025 1:26 PM EDT Generalized abdominal pain URINARY TRACT INFECTION (HTRX) Routine 05/11/2025 3:06 PM EDT POCT URINALYSIS DIPSTICK Routine 05/11/2025 3:04 PM EDT Vaginal bleeding URINARY TRACT INFECTION (HTRX) Routine 05/04/2025 2:38 PM EDT POCT URINALYSIS DIPSTICK Routine 05/04/2025 2:10 PM EDT Urinary tract infection without hematuria, site unspecified ALL CBC WITH AUTO DIFF Routine 04/28/2025 6:11 AM EDT [facility] URINALYSIS, WITH MICROSCOPIC Routine 04/27/2025 12:40 PM EDT CANNABINOID CONF, MS, UR Routine 04/27/2025 10:55 AM EDT ALL CBC WITH AUTO DIFF Routine 04/27/2025 10:55 AM EDT [facility] DRUG SCREEN RAPID (URINE) Routine 04/27/2025 10:50 AM EDT US OB BPP W NON-STRESS 04/26/2025 1:21 PM EDT POCT URINALYSIS DIPSTICK Routine 04/26/2025 11:51 AM EDT Third trimester ([facility]) US OB BPP W NON-STRESS 04/21/2025 8:14 AM EDT US OB BPP W NON-STRESS 04/13/2025 4:17 PM EDT POCT URINALYSIS DIPSTICK Routine 04/06/2025 3:34 PM EDT Third trimester ([facility]) US OB GROWTH 04/06/2025 2:48 PM EDT PAP SMEAR Routine 11/30/2024 12:00 AM EST THINPREP PAP AND HPV MRNA E6/E7 W/RFL HPV 16,18/45 Routine 05/30/2023 10:04 AM EDT Well woman exam with routine gynecological exam from Last 3 Months or Most Recently Relevant to Health Maintenance Results * URINARY TRACT INFECTION (HTRX) (06/08/2025 4:34 PM EDT) Only the most recent of3 resultswithin the time period is included. ACINETOBACTER BAUMANII 0 19.961 - 24.689 ppm 06/09/2025 7:00 AM EDT [facility] ACINETOBACTER BAUMANII Not Detected 19.961 - 24.689 ppm 06/09/2025 7:00 AM EDT [facility] CITROBACTER FREUNDII 0 23.000 - 32.015 ppm 06/09/2025 7:00 AM EDT [facility] CITROBACTER FREUNDII Not Detected 23.000 - 32.015 ppm 06/09/2025 7:00 AM EDT [facility] ENTEROBACTER AEROGENES, CLOACAE 0 23.000 - 32.290 ppm 06/09/2025 7:00 AM EDT [facility] ENTEROBACTER AEROGENES, CLOACAE Not Detected 23.000 - 32.290 ppm 06/09/2025 7:00 AM EDT [facility] ENTEROCOCCUS FAECALIS, FAECIUM 0 26.000 - 33.043 ppm 06/09/2025 7:00 AM EDT [facility] ENTEROCOCCUS FAECALIS, FAECIUM Not Detected 26.000 - 33.043 ppm 06/09/2025 7:00 AM EDT [facility] ESCHERICHIA COLI 0 23.000 - 28.500 ppm 06/09/2025 7:00 AM EDT [facility] ESCHERICHIA COLI Not Detected 23.000 - 28.500 ppm 06/09/2025 7:00 AM EDT [facility] KLEBSIELLA PNEUMONIAE, OXYTOCA 0 23.000 - 31.865 ppm 06/09/2025 7:00 AM EDT [facility] KLEBSIELLA PNEUMONIAE, OXYTOCA Not Detected 23.000 - 31.865 ppm 06/09/2025 7:00 AM EDT [facility] MORGANELLA MORGANII 0 19.961 - 24.689 ppm 06/09/2025 7:00 AM EDT [facility] MORGANELLA MORGANII Not Detected 19.961 - 24.689 ppm 06/09/2025 7:00 AM EDT [facility] PROTEUS MIRABILIS, VULGARIS 0 23.000 - 28.500 ppm 06/09/2025 7:00 AM EDT [facility] PROTEUS MIRABILIS, VULGARIS Not Detected 23.000 - 28.500 ppm 06/09/2025 7:00 AM EDT [facility] PSEUDOMONAS AERUGINOSA 0 23.000 - 31.801 ppm 06/09/2025 7:00 AM EDT [facility] PSEUDOMONAS AERUGINOSA Not Detected 23.000 - 31.801 ppm 06/09/2025 7:00 AM EDT [facility] STAPHYLOCOCCUS AUREUS 0 26.000 - 31.595 ppm 06/09/2025 7:00 AM EDT [facility] STAPHYLOCOCCUS AUREUS Not Detected 26.000 - 31.595 ppm 06/09/2025 7:00 AM EDT [facility] STREPTOCOCCUS AGALACTIAE (GROUP B STREP) 0 26.000 - 32.435 ppm 06/09/2025 7:00 AM EDT [facility] STREPTOCOCCUS AGALACTIAE (GROUP B STREP) Not Detected 26.000 - 32.435 ppm 06/09/2025 7:00 AM EDT [facility] TIGIST ALBICANS, PARAPSILOSIS, TROPICALIS 0 23.000 - 30.347 ppm 06/09/2025 7:00 AM EDT [facility] TIGIST ALBICANS, PARAPSILOSIS, TROPICALIS Not Detected 23.000 - 30.347 ppm 06/09/2025 7:00 AM EDT [facility] TIGIST GLABRATA 0 23.000 - 31.618 ppm 06/09/2025 7:00 AM EDT [facility] TIGIST GLABRATA Not Detected 23.000 - 31.618 ppm 06/09/2025 7:00 AM EDT [facility] TIGIST KRUSEI 0 23.000 - 30.873 ppm 06/09/2025 7:00 AM EDT [facility] TIGIST KRUSEI Not Detected 23.000 - 30.873 ppm 06/09/2025 7:00 AM EDT [facility] SERRATIA MARCESCENS 0 23.000 - 31.581 ppm 06/09/2025 7:00 AM EDT [facility] SERRATIA MARCESCENS Not Detected 23.000 - 31.581 ppm 06/09/2025 7:00 AM EDT [facility] STREPTOCOCCUS PYOGENES (GROUP A STREP) 0 19.961 - 24.689 ppm 06/09/2025 7:00 AM EDT [facility] STREPTOCOCCUS PYOGENES (GROUP A STREP) Not Detected 19.961 - 24.689 ppm 06/09/2025 7:00 AM EDT [facility] STAPHYLOCOCCUS EPIDERMIDIS, HAEMOLYTICUS, LUGDUNENSIS, SAPROPHYTICUS (URINA 0 19.961 - 24.689 ppm 06/09/2025 7:00 AM EDT [facility] STAPHYLOCOCCUS EPIDERMIDIS, HAEMOLYTICUS, LUGDUNENSIS, SAPROPHYTICUS (URINA Not Detected 19.961 - 24.689 ppm 06/09/2025 7:00 AM EDT [facility] STAPHYLOCOCCUS EPIDERMIDIS, HAEMOLYTICUS, LUGDUNENSIS, SAPROPHYTICUS (URINA 0 19.961 - 24.689 ppm 06/09/2025 7:00 AM EDT [facility] STAPHYLOCOCCUS EPIDERMIDIS, HAEMOLYTICUS, LUGDUNENSIS, SAPROPHYTICUS (URINA Not Detected 19.961 - 24.689 ppm 06/09/2025 7:00 AM EDT [facility] Urine 06/08/2025 4:34 PM EDT 06/09/2025 1:28 AM EDT us Sylvia HEADLEY LAB BLOOD ORDERABLES Final Resul t [facility] [address] [id number] * (ABNORMAL) ALL CBC WITH AUTO DIFF (06/08/2025 2:00 PM EDT) Only the most recent of3 resultswithin the time period is included. TBH WBC 3.8(L) 4.0 - 11.0 10 3/uL TBH TBH RBC 3.56(L) 4.20 - 5.40 10 6/uL TBH TBH HGB 10.2(L) 12.0 - 16.0 g/dL TBH TBH HCT 31.5(L) 36.0 - 48.0 % TBH TBH MCV 88.5 81.0 - 99.0 fL TBH TBH MCH 28.7 26.7 - 34.0 pg TBH TBH MCHC 32.4 29.9 - 35.2 g/dL TBH TBH RDW 13.3 11.0 - 15.0 % TBH TBH PLT 216 150 - 450 10 3/uL TBH TBH MPV 9.1(L) 9.5 - 13.5 fL TBH NEUTROPHILS PERCENT AUTO 57.8 43.0 - 75.0 % TBH LYMPHOCYTES PERCENT AUTO 26.3 20.5 - 60.0 % TBH MONOCYTES PERCENT AUTO 7.0 1.7 - 12.0 % TBH TBH EO % 7.8(H) 0.9 - 7.0 % TBH BASOPHILS PERCENT AUTO 0.8 0.2 - 2.0 % TBH IMMATURE GRANULOCYTES PCT AUTO 0.3 0.0 - 0.5 % TBH NEUTROPHILS ABSOLUTE AUTO 2.2 1.4 - 6.5 10 3/uL TBH LYMPHOCYTES ABSOLUTE AUTO 1.0(L) 1.2 - 3.8 10 3/uL TBH MONOCYTES ABSOLUTE AUTO 0.3 0.3 - 0.8 10 3/uL TBH TBH EO # 0.3 0.0 - 0.7 10 3/uL TBH BASOPHILS ABSOLUTE AUTO 0.0 0.0 - 0.1 10 3/uL TBH IMMATURE GRANULOCYTES ABS AUTO 0.01 0.00 - 0.03 10 3/uL TBH 06/08/2025 2:00 PM EDT 06/08/2025 2:00 PM EDT Narrative CLINISYNC - 06/08/2025 2:08 PM EDT Sylvia HEADLEY CLINISYNC Final Result [facility] * (ABNORMAL) POCT urinalysis dipstick manually resulted (06/08/2025 1:26 PM EDT) Only the most recent of5 resultswithin the time period is included. Color, UA Red Clarity, UA Clear Glucose, UA Negative Negative - 1999(110) ++++ mg/dL Bilirubin, UA Negative Negative - 4(70) +++ mg/dL Ketones, UA Negative Negative - 160(16) ++++ mg/dL Spec Grav, UA 1.020 1 - 1.03 Blood, UA Positive Negative - 50 Brent/mcL pH, UA 6.0 5 - 9 Protein, UA Positive Negative - 1999(20) ++++ mg/dL Urobilinogen, UA 1.0 0.2 - 12 mg/dL Leukocytes, UA Positive Negative - 500+++ Kae/mcL Nitrite, UA Positive Negative - Positive Urine 06/08/2025 1:26 PM EDT Sylvia HEADLEY POINT OF CARE TEST ENTER/EDIT OR DERABLES Final Result * (ABNORMAL) [facility] URINALYSIS, WITH MICROSCOPIC (04/27/2025 12:40 PM EDT) COLOR URINE LT. YELLOW YELLOW TBH CLARITY URINE CLEAR CLEAR TBH SPECIFIC GRAVITY URINE 1.010 1.005 - 1.025 TBH PH URINE 6.5 5.0 - 9.0 TBH PROTEIN URINE NEGATIVE NEG/TRACE mg/dL TBH GLUCOSE URINE UA NEGATIVE NEGATIVE mg/dL TBH BILIRUBIN URINE NEGATIVE NEGATIVE TBH KETONES URINE 15(A) NEGATIVE mg/dL TBH BLOOD URINE NEGATIVE NEGATIVE TBH NITRITE URINE NEGATIVE NEGATIVE TBH UROBILINOGEN URINE 0.2 0.2 - 1.0 EU/dL TBH LEUKOCYTE ESTERASE URINE NEGATIVE NEGATIVE TBH TBH WBC 0-2(A) NONE SEEN #/HPF TBH TBH RBC 0-2 0 - 2 #/HPF TBH BACTERIA URINE TRACE(A) NONE SEEN #/HPF TBH MUCUS URINE NONE SEEN NONE SEEN TBH SQUAMOUS EPITHELIAL CELL URINE FEW(A) NONE/RARE #/LPF TBH CRYSTALS SEEN? None Seen None Seen #/HPF TBH CAST SEEN? NONE SEEN NONE SEEN #/LPF TBH 04/27/2025 12:4 0 PM EDT 04/27/2025 12:53 PM EDT Narrative CLINISYNC - 04/27/2025 1:17 PM EDT Adonis Hester DO CLINISYNC Final Result CLINISYNC TB[facility] * (ABNORMAL) CANNABINOID CONF, MS, UR (04/27/2025 10:55 AM EDT) CANNABINOID Positive(A ) . TBH CARBOXY THC CONF, MS, UR 98 Cutoff=10 ng/mL TBH Comment: Performed at: - [facility] [address] [place], [place] [id number] Hot Knife Cutter: Temi Crystal PhD, Phone: [phone] 04/27/2025 10:5 5 AM EDT 04/27/2025 11:50 AM EDT Narrative CLINISYNC - 05/04/2025 4:07 AM EDT us Adonis Mir DO LAB BLOOD ORDERABLES Final Resul t CLINISYNC TBH * (ABNORMAL) TBH DRUG SCREEN RAPID (URINE) (04/27/2025 10:50 AM EDT) Pathologist [facility] CANNABINOID SCREEN URINE POSITIVE(A) NEGATIVE TBH PHENCYCLIDINE SCREEN URINE NEGATIVE NEGATIVE TBH COCAINE SCREEN URINE NEGATIVE NEGATIVE TBH METHAMPHETAMINES SCREEN URINE NEGATIVE NEGATIVE TBH OPIATE SCREEN URINE NEGATIVE NEGATIVE TBH AMPHETAMINE SCREEN URINE NEGATIVE NEGATIVE TBH BENZODIAZEPINES SCREEN URINE NEGATIVE NEGATIVE TBH TRICYCLIC ANTIDEPRESSANT URINE NEGATIVE NEGATIVE TBH METHADONE SCREEN URINE NEGATIVE NEGATIVE TBH BARBITURATES SCREEN URINE NEGATIVE NEGATIVE TBH OXYCODONE SCREEN URINE NEGATIVE NEGATIVE TBH BUPRENORPHINE SCREEN URINE NEGATIVE NEGATIVE TBH Comment: DRUG CLASS TEST SYSTEM CUT-OFF CONCENTRATIONS ARE FOLLOWS: AMP (Amphetamine): 500 ng/mL BAR (Barbiturates): 200 ng/mL BZO (Benzodiazepines): 150 ng/mL BUP (Buprenorphine): 10 ng/mL ALEX (Cocaine): 150 ng/mL mAMP (Methamphetamine): 500 ng/mL MTD (Methadone): 200 ng/mL OPI (Opiates): 100 ng/mL OXY (Oxycodone): 100 ng/mL PCP (Phencyclidine): 25 ng/mL THC (Cannabinoids): 50 ng/mL TCA (Trycyclic Antidepressants): 300 ng/mL 04/27/2025 10:5 0 AM EDT 04/27/2025 11:27 AM EDT Narrative CLINISYNC - 04/27/2025 11:49 AM EDT us Adonis Mir DO CLINISYNC Final Result CLINISYNC TBH * US OB BPP W NON-STRESS (04/26/2025 1:21 PM EDT) Only the most recent of3 resultswithin the time period is included. Anatomical Region Laterality Modality Other 04/26/2025 1:21 PM EDT Narrative 04/26/2025 1:23 [place] [address] Ultrasound Report Signed Patient: BREANA JOHN MR#: [id number] : 1990 Acct:[id number] Age/Sex: 34 / F ADM Date: Loc: [facility] 251-[address]: Adonis Hester D.O. Ordering Physician: Adonis Hester D.O. Date of Service: 04/26/25 Procedure(s): US OB BPP w non-stress Accession Number(s): [id number] cc: Adonis Hester D.O.; Physician,Non-Staff M.DSarah [address] [address] Patient Name: BREANA JOHN MRN: [id number] date: 1990 Sex: F Assigned Patient Location: [facility] Current Patient Location: Accession/Order Number: [id number] Exam Date: 04/26/2025 13:20 Report Date: 04/26/2025 13:21 At the request of: ADONIS HESTER DO Procedure: US OB BPP w non-stress Biophysical profile. Reason for exam: Decreased movements COMPARISON: BPP 04/20/2025 TECHNIQUE: Transabdominal imaging of the gravid uterus was obtained. FINDINGS: The project systems engineer reports a BPP of 8 out of 8. TAMIR is normal at 13.4 cm. heart rate 161 bpm. US/US OB BPP w non-stress IMPRESSION: BPP 8 out of 8. Impression dictated by: Seferino Tay Jr., D.O. 04/26/2025 1:21 PM Dictation Location: [place] [address] Electronically authenticated by: [id number] Y Date: 04/26/2025 13:21 Dictated By: Seferino Tay M.D. Signed By: 04/26/25 1323 DD/ 1321 TD/TT: Ore Fielder: Procedure Note Radiology, Radiologist, MD - 04/26/2025 [place] [address] Ultrasound Report Signed Patient: BREANA JOHN NMR#: [id number] : 1990Acct:[id number] Age/Sex: 34 / FADM Date: Loc: [facility] 251-[address]: Adonis Hester D.O. Ordering Physician: Adonis Hester D.O. Date of Service: 04/26/25 Procedure(s): US OB BPP w non-stress Accession Number(s): [id number] cc: Adonis Hester D.O.; Physician,Non-Staff [place] [address] [place] [address] Patient Name: BREANA JOHN MRN: [id number] date: 1990 Sex: F Assigned Patient Location: [facility] Current Patient Location: Accession/Order Number: [id number] Exam Date: 04/26/2025 13:20 Report Date: 04/26/2025 13:21 At the request of: ADONIS HESTER DO Procedure: US OB BPP w non-stress Biophysical profile. Reason for exam: Decreased movements COMPARISON: BPP 04/20/2025 TECHNIQUE: Transabdominal imaging of the gravid uterus was obtained. FINDINGS: The project systems engineer reports a BPP of 8 out of 8. TAMIR is normal at13.4 cm. heart rate 161 bpm. US/US OB BPP w non-stress IMPRESSION: BPP 8 out of 8. Impression dictated by: Seferino Tay Jr., D.O. 04/26/2025 1:21 PM Dictation Location: [place] [address] Electronically authenticated by: [id number] Y Date: 3:21 Dictated By: Seferino Tay M.D. Signed By:04/26/25 1323 DD/ 1321 TD/TT: Ore Fielder: us Adonis Hester DO CLINISYNC IMAGING Final Result * US OB GROWTH (04/06/2025 2:48 PM EDT) Anatomical Region Laterality Modality Other 04/06/2025 2:48 PM EDT Narrative 04/06/2025 2:51 [place] [address] Ultrasound Report Signed Patient: BREANA JOHN MR#: [id number] : 1990 Acct:[id number] Age/Sex: 34 / F ADM Date: 04/06/25 Loc: US Attending Dr: Adonis Hester D.O. Ordering Physician: Adonis Hester D.O. Date of Service: 04/06/25 Procedure(s): US OB growth Accession Number(s): [id number] cc: Adonis Hester D.O.; Physician,Non-Staff [place] [address] [place] [address] Patient Name: BREANA JOHN MRN: [id number] date: 1990 Sex: F Assigned Patient Location: Current Patient Location: Accession/Order Number: [id number] Exam Date: 04/06/2025 14:46 Report Date: 04/06/2025 [...] Jr., D.O. 04/06/2025 2:48 PM Dictation Location: [place] [address] Electronically authenticated by: [id number] Y Date: 04/06/2025 14:48 Dictated By: Seferino Tay M.D. Signed By: 04/06/25 1451 DD/ 1448 TD/TT: Ore Fielder: Procedure Note Radiology, Radiologist, MD - 04/06/2025 [place] [address] Ultrasound Report Signed Patient: BREANA JOHN NMR#: [id number] : 1990Acct:[id number] Age/Sex: 34 / FADM Date: 04/06/25 Loc: US Attending Dr: Adonis Hester D.O. Ordering Physician: Adonis Hester D.O. Date of Service: 04/06/25 Procedure(s): US OB growth Accession Number(s): [id number] cc: Adonis Hester D.O.; Physician,Non-Staff [place] [facility] [place] [id number] Patient Name: BREANA JOHN MRN: [id number] date: 1990 Sex: F Assigned Patient Location: US Current Patient Location: US Accession/Order Number: [id number] Exam Date: 04/06/2025 14:46 Report Date: 04/06/2025 14:48 At the request of: ADONIS HESTER DO Procedure: US OB growth Growth ultrasound. Reason for exam: size and consistent with dates. COMPARISON: None. TECHNIQUE: Transabdominal imaging of the gravid uterus was obtained. FINDINGS: Single live intrauterine 35 weeks 6 days by anatomic measurements. Appropriate growth by dating. Estimated weight [id number] g which is the 73rd percentile. TAMIR is normal at 11.83 cm. heartrate 144 bpm. position is cephalic at time of scanning. US/US OB growth IMPRESSION: Single live intrauterine 35 weeks 6 days by anatomic measurements. Appropriate growth by dating. Impression dictated by: Seferino Tay Jr., D.O. 04/06/2025 2:48 PM Dictation Location: [place] [address] Electronically authenticated by: [id number] Y Date: 4:48 Dictated By: Seferino Tay M.D. Signed By:04/06/25 1451 DD/ 1448 TD/TT: Ore Fielder: us Adonis Mir DO [facility] Final Result * Pap Smear (11/30/2024 12:00 AM EST) Swab Cervical swab / Unknown us [facility] CYTOLOGY ORDERABLES Final Re sult EXTERNAL LAB * THINPREP PAP AND HPV MRNA E6/E7 W/RFL HPV 16,18/45 (05/30/2023 10:04 AM EDT) us [facility] BLOOD ORDERABLES Final Resul t EXTERNAL LAB from Last 3 Months or Most Recently Relevant to Health Maintenance Insurance [facility] MEDICAID Care Teams Transaction Manager Relationship Specialty Start Date End Date Sylvia Romero PA [address] [place] [address] Dr [place], [facility] PCP - [facility] 07/06/24
--- OUTSIDE RECORDS SUMMARY | 2025-06-24 14:43 | XMS_ITS | Encounter Summary ---
Author Organization [facility] Address [address] [place] [place] [place] [address] Care Team Providers Care Paper Pattern Inspector Name Role Phone HeatherSylvia Unavailable Encounter Details Date Type Department Care Team (Late st Contact Info) Description 04/28/2024 Abstract [facility] [address] [place] [phone] Zainab Mcwilliams LPN [address] [id number] Social History Tobacco Use Types Packs/Day Years [...] on filedocumented in this encounter Care Teams Paper Pattern Inspector Relationship Specialty Start Date End Date Sylvia Romero PA [address] [place], [facility] PCP - [facility] TOBACCO SAMPLE PULLER 07/06/24 documented as of this encounter
--- OUTSIDE RECORDS SUMMARY | 2025-06-24 14:43 | XMS_ITS | Encounter Summary ---
Author Organization [facility] Address [address] [place] [address] [address] Team Providers Care [address] Shaft And Steering Post Repairer Name Role Phone HeatherSylvia Unavailable Encounter Details Date Type Department Care Team (Late st Contact Info) Description 04/27/2025 Abstract [facility] [address] [place] [phone] Dominic Hester, [address] [facility] [address] Abhijeet [place], [facility]11 Social History Tobacco Use [...] on filedocumented in this encounter Care Teams Drive Shaft And Steering Post Repairer Relationship Specialty Start Date End Date Sylvia Romero PA [address] [place] [address] [place] [address] PCP - [facility] RIPSAW OPERATOR 07/06/24 documented as of this encounter
--- OUTSIDE RECORDS SUMMARY | 2025-06-24 14:43 | XMS_ITS | Encounter Summary ---
Author Organization [facility] Address [address] [place] [address] Care Team Providers Care Athletic Coach Name Role Phone HeatherSylvia Unavailable Encounter Details Date Type Department Care Team (Late st Contact Info) Description 12/13/2024 Orders Only [facility] [address] [place] [address] [place] [phone] Adriana Hartman MA Social History Tobacco Use [...] on filedocumented in this encounter Care Teams Athletic Coach Relationship Specialty Start Date End Date Sylvia Romero PA [address] [place] [address] [place] [address] PCP - [facility] COOK NIGHT 07/06/24 documented as of this encounter
--- OUTSIDE RECORDS SUMMARY | 2025-06-24 14:43 | XMS_ITS | Encounter Summary ---
Author Organization [facility] Address [address] [place] [address] Care Team Providers Care Natural Sciences Manager Name Role Phone Sylvia Romero Unavailable Encounter Details Date Type Department Care Team (Late st Contact Info) Description 06/22/2025 Patient Outreach [facility] POPULATION [facility] [address] [place] [address] Sylvia Villa LPN [address] [place] [address] Social History Tobacco Use Types Packs/Day Years [...] on file documented as of this encounter Progress Notes * Sylvia Villa LPN - 06/22/2025 11:37 AM EDT Monthly outreach. Call to pt. Pt reports baby is doing well. She is growing. Baby is bottle feedingboth breast milk and formula. Pt reports she has been experiencing depression and recently was giving medication and other med changes and hopes for improvement. Pt reports even still I'm doing ok and am hopeful. Pt denies any questions, concerns or needs today. Meds reconciled. documented in this encounter Plan of Treatment Not on file documented as of this encounter Visit Diagnoses Not on filedocumented in this encounter Care Teams Natural Sciences Manager Relationship Specialty Start Date End Date Sylvia Romero PA [address] [place] [address] [place] [address] PCP - [facility] 07/06/24 documented as of this encounter
--- NOTE | 2025-06-24 15:02 | ECG_ITS ---
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 Measurements Intervals [place] Rate: 50 P: 67 SC: 156 QRS: 84 QRSD: 80 T: 71 QT: 438 QTc: 412 Interpretive Statements 1100 Sinus rhythm 9110 normal ECG No previous ECG available for comparison Electronically Signed On 06-24-2025 20:05:27 EDT by MIRLANDE SURESH M.D.
--- NOTE | 2025-06-24 15:03 | ED_ITS ---
HPI HPI - General Adult General Chief complaint: Weakness Stated complaint: POST-OP ISSUES Time Seen by Provider: 06/24/25 14:54 Source: patient Mode of arrival: Wheelchair Limitations: no limitations History of Present Illness HPI narrative: 34-year-old female presenting to the emergency department for feeling weak. The patient is a poor historian but she is brought here by her sister who gives most of the history. The patient was at work today and was not feeling well and was sent home. The sister took her initially to a different hospital which was close to the patient's workplace but it was too busy and then the sister brought the patient here. The sister states her blood pressure was 90 systolic at the other hospital. The patient's sister says that the patient looks pale. The patient had about 2 months ago and has been having bleeding since then. Related Data Home Medications ?Medication ?Instructions ?Recorded ?Confirmed vit no.95-ferrous 1 tab PO DAILY 09/17/24 fumarate 28 mg-folic acid 800 mcg tablet () progesterone micronized (bulk) 100 1 ea miscellaneous DAILY 09/17/24 09/17/24 % powder citalopram 20 mg tablet 20 mg PO DAILY 04/27/2506/06 cephalexin 500 mg capsule 500 mg PO 05/08/25 Previous Rx's ?Medication ?Instructions ?Recorded ondansetron 4 mg disintegrating 4 mg PO Q8H PRN nausea and 09/17/24 tablet vomiting 5 days #15 tabs ibuprofen 800 mg tablet 800 mg PO Q8H PRN pain 14 da ys #40 04/29/25 tabs Allergies Allergy/AdvReac Type Severity Reaction Status Date / Time onion Allergy throat Verified 06/24/25 14:47 swelling Steristrips Allergy Blister Uncoded 09/17/24 09:52 Opioid HPI Opioid Management Most Recent Opioid Data: Last Pain Scale 0 Today, 15:04 Urine Cannabinoids, (.) Positive A 04/27/25, 10:55 Ur Phencyclidine Scrn, (NEGATIVE) Negative Today, 16:00 Review of Systems ROS Narrative A ten point review of systems is negative except as noted above. PFSH PFSH Medical History (Updated 06/24/25 @ 18:33 by Brian Vazquez MD) History of blood transfusion ?Z92.89 - Personal history of other medical treatment (ICD-10) Anemia ?D64.9 - Anemia, unspecified (ICD-10) Deep vein thrombosis (2018) ?I82.409 - Acute embolism and thrombosis of unspecified deep veins of unspecified lower extremity (ICD-10) Postoperative nausea and vomiting ?R11.2 - Nausea with vomiting, unspecified (ICD-10) ?Z98.890 - Other specified postprocedural states (ICD-10) Trichomoniasis ?A59.9 - Trichomoniasis, unspecified (ICD-10) Pelvic inflammatory disease ?N73.9 - Female pelvic inflammatory disease, unspecified (ICD-10) Folliculitis ?L73.9 - Follicular disorder, unspecified (ICD-10) Endometriosis ?N80.9 - Endometriosis, unspecified (ICD-10) Dyspareunia Asthma ?J45.909 - Unspecified asthma, uncomplicated (ICD-10) Anxiety ?F41.9 - Anxiety disorder, unspecified (ICD-10) Menorrhagia with irregular cycle ?N92.1 - Excessive and frequent menstruation with irregular cycle (ICD-10) Dysmenorrhea ?N94.6 - Dysmenorrhea, unspecified (ICD-10) Pelvic pain ?R10.2 - Pelvic and perineal pain (ICD-10) Surgical History (Updated 04/28/25 @ 08:18 by SIDRA LAO APRN, CNM) H/O local excision of skin lesion ?Z98.890 - Other specified postprocedural states (ICD-10) History of laparoscopy ?Z98.890 - Other specified postprocedural states (ICD-10) History of dilation and curettage ?Z98.890 - Other specified postprocedural states (ICD-10) History of section ?Z98.891 - History of uterine scar from previous surgery (ICD-10) Family History (Updated 02/20/24 @ 12:45 by Taylor Jalloh NP) Other Bipolar disorder Family history of cancer Family history of diabetes mellitus Family history of hypertension Melanoma Social History (Updated 02/20/24 @ 12:50 by Taylor Jalloh NP) Within the past year, how often did you have a drink containing alcohol: monthly or less Smoking status: Current every day smoker Do you use any of these nicotine containing products: vaping products Non-prescribed substance use: cannabis (any form) 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 General: The patient seems to want to keep her eyes closed. She will open them when asked to do so. Skin: Warm, dry, pallor noted. There is no rash noted. Head: Normocephalic, atraumatic Eye: Normal conjunctiva, no drainage Ears, Nose, Mouth, and Throat: oral mucosa is moist. Nares patent. Cardiovascular: Regular Rate and Rhythm Respiratory: Patient is in no distress, no accessory muscle use, lungs are clear to auscultation, no wheezing, rales or rhonchi Back: non-tender GI: Soft and nontender Musculoskeletal: The patient has no evidence of calf tenderness, no pitting edema, symmetrical pulses noted bilaterally Neurological: Awake and alert. She knows her name and the year. She did not get her location correct. Psychiatric: Cooperative Constitutional Vital Signs, click to edit/add: Last Vital Signs Temp 98.1 F 06/24/25 14:48 Pulse 42 L 06/24/25 15:50 Resp 7 L 06/24/25 15:50 BP 118/65 06/24/25 16:31 Pulse Ox 100 06/24/25 16:40 O2 Del Method Room Air 06/24/25 14:48 Course Vital Signs Vital signs: Vital Signs Temperature 98.1 F 06/24/25 14:48 Pulse Rate 41 L 06/24/25 14:48 Respiratory Rate 22 H 06/24/25 14:48 Blood Pressure 99/56 06/24/25 14:48 Pulse Oximetry 94 L 06/24/25 14:48 Oxygen Delivery Method Room Air 06/24/25 14:48 Temperature 98.1 F 06/24/25 14:48 Pulse Rate 42 L 06/24/25 15:50 Respiratory Rate 7 L 06/24/25 15:50 Blood Pressure 118/65 06/24/25 16:31 Pulse Oximetry 100 06/24/25 16:40 Oxygen Delivery Method Room Air 06/24/25 14:48 Medical Decision Making MDM Narrative Medical decision making narrative: Hemoglobin is 9.7. Case discussed with Dr. Hester and she will be discharged home with follow-up in the office. Pelvic ultrasound does not show any acute findings. The patient is already on control pills. Findings are discus sed with the patient and her mother. The patient feels much better now and is awake and alert and walking around without any difficulty. She was advised to start dqyi-tbr-dyflgln iron pills. Differential Diagnosis Differential Diagnosis: Anemia Lab Data Lab results reviewed: Yes I reviewed the patient's lab results Labs: Lab Results 06/24/25 06/24/25 Range/Units 14:55 16:00 WBC 3.7 L (4.0-11.0) 10^3/uL RBC 3.59 L (4.20-5.40) 10^6/uL Hgb 9.7 L (12.0-16.0) g/dL Hct 30.9 L (36.0-48.0) % MCV 86.1 (81.0-99.0) fL MCH 27.0 (26.7-34.0) pg MCHC 31.4 (29.9-35.2) g/dL RDW 14.0 (11.0-15.0) % Plt Count 210 (150-450) 10^3/uL MPV 9.7 (9.5-13.5) fL Neut % (Auto) 45.6 (43.0-75.0) % Lymph % (Auto) 32.4 (20.5-60.0) % [place] % (Auto) 11.8 (1.7-12.0) % Eos % (Auto) 8.8 H (0.9-7.0) % Baso % (Auto) 1.1 (0.2-2.0) % Neut # (Auto) 1.7 (1.4-6.5) 10^3/uL Lymph # (Auto) 1.2 (1.2-3.8) 10^3/uL [place] # (Auto) 0.4 (0.3-0.8) 10^3/uL Eos # (Auto) 0.3 (0.0-0.7) 10^3/uL Baso # (Auto) 0.0 (0.0-0.1) 10^3/uL Abs Immat Gran (auto) 0.01 (0.00-0.03) 10^3/uL Imm/Tot Granulo (auto) 0.3 (0.0-0.5) % PT 11.9 H (9.0-11.6) sec INR 1.14 APTT 26.1 (22.3-36.2) sec Sodium 145 (136-145) mmol/L Potassium 3.8 (3.5-5.1) mmol/L Chloride 108 H (98-107) mmol/L Carbon Dioxide 27.2 (21.0-32.0) mmol/L Anion Gap 13.6 BUN 9.0 (7.0-18.0) mg/dL Creatinine 0.88 (0.55-1.02) mg/dL Est GFR ( Amer) >60 (>=60 mL/min/1.73m^2) Est GFR (Non-Af Amer) >60 (>=60 mL/min/1.73m^2) BUN/Creatinine Ratio 10.2 Glucose 82 (74-106) mg/dL Calcium 9.0 (8.5-10.1) mg/dL Troponin I High Sens 6.4 (4.0-51.3) pg/mL Serum HCG, Qual Negative (NEGATIVE) Urine Color Lt. yellow (YELLOW) Urine Clarity Clear (CLEAR) Urine pH 6.5 (5.0-9.0) Ur Specific [place] <=1.005 A (1.005-1.025) Urine Protein Negative (NEG/TRACE) mg/dL Urine Glucose (UA) Negative (NEGATIVE) mg/dL Urine Ketones Negative (NEGATIVE) mg/dL Urine Occult Blood Large A (NEGATIVE) Urine Nitrite Negative (NEGATIVE) Urine Bilirubin Negative (NEGATIVE) Urine Urobilinogen 0.2 (0.2-1.0) EU/dL Ur Leukocyte Esterase Negative (NEGATIVE) Urine RBC 2-5 A (0-2) #/HPF Urine WBC None seen (NONE SEEN) #/HPF Ur Squamous Epith Cells Few A (NONE/RARE) #/LPF Urine Crystals None seen (None Seen) #/HPF Urine Bacteria Trace A (NONE SEEN) #/HPF Urine Casts None seen (NONE SEEN) #/LPF Urine Mucus None seen (NONE SEEN) Ur Culture Indicated? No Urine Opiates Screen Negative (NEGATIVE) Ur Buprenorphine Scrn Negative (NEGATIVE) Ur Oxycodone Screen Negative (NEGATIVE) Urine Methadone Screen Negative (NEGATIVE) Ur Barbiturates Screen Negative (NEGATIVE) U Tricyclic Antidepress Negative (NEGATIVE) Ur Phencyclidine Scrn Negative (NEGATIVE) Ur Amphetamines Screen Negative (NEGATIVE) U Methamphetamines Scrn Negative (NEGATIVE) U Benzodiazepines Scrn Negative (NEGATIVE) Urine Cocaine Screen Negative (NEGATIVE) U Cannabinoids Screen Positive A (NEGATIVE) Ethanol Quant <3 mg/dL Imaging Data Pelvic ultrasound: Radiologist's impression: ITS Impressions Transvaginal US 06/24/25 15:46 IMPRESSION: Echogenic shadowing material identified within the endometrium, unclear if this represents postsurgical changes. Impression dictated by: Jon Khoury M.D. 06/24/2025 6:15 PM Dictation [facility] Electron[facility] authenticated by: [id number] Y Date: 06/24/2025 18:15 ECG Data Attestation: I personally reviewed and interpreted this ECG as follows: (EKG on my interpretation shows sinus rhythm with rate of 50) Discharge Plan Discharge Chief Complaint: Weakness Clinical Impression: Anemia, Vaginal bleeding Patient Disposition: Home, Self-Care Time of Disposition Decision: 18:32 Condition: Good Mode of Transportation: Private Vehicle Prescriptions / Home Meds: No Action PNV no.95-ferrous fumarate-FA [] 28 mg iron- 800 mcg tablet 1 tab PO DAILY progesterone micronized (bulk) 100 % powder 1 ea MISCELLANEOUS DAILY ondansetron 4 mg tablet,disintegrating 4 mg PO Q8H PRN (Reason: nausea and vomiting) 5 Days Qty: 15 0RF citalopram 20 mg tablet 20 mg PO DAILY ibuprofen 800 mg tablet 800 mg PO Q8H PRN (Reason: pain) 14 Days Qty: 40 0RF cephalexin 500 mg capsule 500 mg PO Print Language: Upper Sorbian Instructions: Abnormal (Dysfunctional) Uterine Bleeding (ED), Anemia (ED) Referrals: Physician,Non-Staff, MD [Primary Care Provider] - 1 week
[2025-06-24 15:08] LABS: Hematocrit 30.9 % (36.0-48.0); Hemoglobin 9.7 g/dL (12.0-16.0); Immature Granulocytes Abs Auto 0.01 10^3/uL (0.00-0.03); Immature Granulocytes Pct Auto 0.3 % (0.0-0.5); Lymphocytes Absolute Auto 1.2 10^3/uL (1.2-3.8); Mean Corpuscular HGB Conc 31.4 g/dL (29.9-35.2); Mean Corpuscular Hemoglobin 27.0 pg (26.7-34.0); Mean Corpuscular Volume 86.1 fL (81.0-99.0); Platelet Count 210 10^3/uL (150-450); Red Blood Count 3.59 10^6/uL (4.20-5.40); White Blood Count 3.7 10^3/uL (4.0-11.0)
[2025-06-24] MEDS: 0.9 % SODIUM CHLORIDE 1,000 ML 1000 ML IV (15:16)
[2025-06-24 15:23] LABS: INR 1.14; Partial Thromboplastin Time 26.1 sec (22.3-36.2); Prothrombin Time 11.9 sec (9.0-11.6)
[2025-06-24 15:29] LABS: Anion Gap 13.6; Blood Urea Nitrogen 9.0 mg/dL (7.0-18.0); Calcium 9.0 mg/dL (8.5-10.1); Carbon Dioxide 27.2 mmol/L (21.0-32.0); Chloride 108 mmol/L (98-107); Estimated GFR (African America >60 (>=60 mL/min/1.73m^2); Estimated GFR (Non-African Ame >60 (>=60 mL/min/1.73m^2); Glucose 82 mg/dL (74-106); Potassium 3.8 mmol/L (3.5-5.1); Sodium 145 mmol/L (136-145)
--- NOTE | 2025-06-24 15:46 | US_ITS ---
[address] [address] Patient Name: BREANA CASAS MRN: [id number] date: 1990 Sex: F Assigned Patient Location: ER Current Patient Location: ED.MAIN Accession/Order Number: [id number] Exam Date: 06/24/2025 16:49 Report Date: 06/24/2025 18:15 At the request of: JASON CEVALLOS MD Procedure: US pelvis transvaginal Transvaginal pelvic ultrasound Indication: Persistent vaginal bleeding following section FINDINGS: Uterus anteflexed measuring 8.9 x 4.2 x 6.5 cm. Endometrial thickness measuring 4.5 mm. Echogenic foci with shadowing within the region of the endometrium noted measuring 1.6 x 1.7 x 1.7 cm in size, nonspecific possibly related to postsurgical changes and/or scarring. Right and left ovaries not visualized US/US pelvis transvaginal IMPRESSION: Echogenic shadowing material identified within the endometrium, unclear if this represents postsurgical changes. Impression dictated by: Jon Khoury M.D. 06/24/2025 6:15 PM Dictation Location: [place] [address] Electronically authenticated by: [id number] Y Date: 06/24/2025 18:15
[2025-06-24 16:32] LABS: Glucose Urine UA NEGATIVE (NEGATIVE)
[2025-06-24 16:39] LABS: Crystals Seen? None Seen #/HPF (None Seen)
[2025-06-24 16:40] LABS: Cast Seen? NONE SEEN #/LPF (NONE SEEN); Urine Culture Indicated NO
[2025-06-24 16:47] LABS: Cannabinoid Screen Urine POSITIVE (NEGATIVE); Methamphetamines Screen Urine NEGATIVE (NEGATIVE); Tricyclic Antidepressant Urine NEGATIVE (NEGATIVE)
== END 2025-06-24 18:43 | disposition home or self-care (01) ==
PROVIDERS: Emergency Provider Emergency Medicine
DX: N93.9 Abnormal uterine and vaginal bleeding, unspecified (principal); D64.9 Anemia, unspecified; F17.290 Nicotine dependence, other tobacco product, uncomplicated
CPT/HCPCS: 36415; 76830; 80048; 80307; 80320; 81001; 84484; 84703; 85025; 85610; 85730; 93005; 99285